=== PATIENT | male | born 1955 | race Caucasian/White ===

== ENCOUNTER → 2016-03-17 | Outpatient (CLI) | payer OTHER ==
[~2016-03-17] MED LIST: ALBUAER2 INH; CMD5 PO; DEXT30TA7 PO; DSY50 PO; ENOX80IN SQ; ESOM20CA PO; FLUT0.0529 NAE; HYDR-5688 PO; IPRASOL4 INH; LORA-741 PO; OMEP40CA41 PO; PREG100C PO; PSEU60TA80 PO; RANI150T2 PO; RANI300T2 PO; ROFL1TAB5 PO; TRAM-10 PO; UMEC1AER INH; VNTHFA/IN INH; WARF-280 PO
--- NOTE | 2016-03-17 12:26 | DIAGNOSTIC IMAGING REPORT ---
CT OF THE SINUSES WITHOUT CONTRAST FUSION PROTOCOL CLINICAL HISTORY: Chronic sinusitis. Postnasal discharge. COMPARISON STUDY: Sinus radiographs January 14, 2016. TECHNIQUE: Axial images of the sinuses were obtained without IV contrast according to the Fusion protocol. Coronal reformats were viewed. FINDINGS: Visualized portions of the intracranial contents are unremarkable on this unenhanced exam. There is no fluid within the middle ears or the mastoid air cells. Ossicles are intact. Orbits are unremarkable. No mass or bony destruction is identified within the nasal cavity or the sinuses. There is mild S-shaped deviation of the nasal septum with minimal spur formation. There is mild mucosal thickening of the frontal and ethmoid sinuses. Major drainage pathways are patent. The ostiomeatal complexes are patent. Cribriform plate is intact. IMPRESSION: 1. Mild mucosal thickening of the ethmoid and frontal sinuses. No CT evidence of acute sinusitis. 2. Patent major drainage pathways. 3. No masses or bony destruction within the nasal cavity or sinuses. Electronically signed by: Jose A Hernandez M.D. 03/17/2016 12:24 PM Dictated Date/Time: 03/17/2016 12:12 PM
--- NOTE | 2016-03-17 12:54 | DIAGNOSTIC IMAGING REPORT ---
(BARIUM SWALLOW) ESOPHAGUS CLINICAL HISTORY: Pharyngitis. Reflux. COMPARISON STUDY: Upper GI series August 07, 2007. FLUOROSCOPY TIME: 1.1 minutes. FINDINGS: 26 fluoroscopic images were obtained. There was mild esophageal dysmotility. No esophageal mass or stricture was identified. No reflux was elicited. Mucosal pattern of the esophagus was normal. No hiatal hernia was identified. IMPRESSION: Mild esophageal dysmotility. No esophageal mass or stricture. Electronically signed by: Jose A Hernandez M.D. 03/17/2016 12:52 PM Dictated Date/Time: 03/17/2016 12:50 PM
== END | disposition home or self-care (01) ==
LOC: C.CTS 11:00
PROVIDERS: ATTEND Hospitalist
DX: J34.2 Deviated nasal septum (principal); J32.9 Chronic sinusitis, unspecified; R09.82 Postnasal drip; K21.9 Gastro-esophageal reflux disease without esophagitis; R43.8 Other disturbances of smell and taste; J02.9 Acute pharyngitis, unspecified

== ENCOUNTER 2016-04-02 06:56 | Inpatient (IN) | payer OTHER ==
[2016-03-24 11:43] VITALS: BMI 32.0
--- NOTE | 2016-03-24 12:21 | PAT Medication Instructions ---
Service Date Mar 24, 2016. Current Home Medication List Albuterol (Ventolin Hfa), 2 PUFFS INH Q4H PRN for SOB/Wheezing Esomeprazole Magnesium (Nexium), 20 MG PO QAM Fluticasone Propionate (Nasal) (Flonase), 2 SPRAYS ROCÍO DAILY PRN for Allergy Symptoms Ipratropium-Albuterol (Duoneb), 1 TREATMENT INH QID PRN for SOB/Wheezing Lorazepam (Ativan), 0.5 MG PO Q8 PRN for Anxiety Pregabalin (Lyrica), 100 MG PO BID Pseudoephedrine-Guaifenesin (Mucinex D), 1 TAB PO HS Ranitidine (Zantac), 300 MG PO HS Roflumilast (Daliresp), 500 MCG PO HS Tramadol (Ultram), 50 MG PO QID Umeclidinium-Vilanterol (Anoro Ellipta 62.5-25 Mcg/INH), 1 PUFF INH QAM Warfarin Sodium (Warfarin Sodium), 5 MG PO UD Medication Instructions For Your Scheduled Surgery - Check with surgeon/coumadin clinic for instructions: Warfarin Sodium (Warfarin Sodium), 5 MG PO UD - Take the following medications the morning of surgery with a sip of water: Umeclidinium-Vilanterol (Anoro Ellipta 62.5-25 Mcg/INH), 1 PUFF INH QAM Pregabalin (Lyrica), 100 MG PO BID Lorazepam (Ativan), 0.5 MG PO Q8 PRN for Anxiety\ Ipratropium-Albuterol (Duoneb), 1 TREATMENT INH QID PRN for SOB/Wheezing Fluticasone Propionate (Nasal) (Flonase), 2 SPRAYS ROCÍO DAILY PRN for Allergy Symptoms Albuterol (Ventolin Hfa), 2 PUFFS INH Q4H PRN for SOB/Wheezing (bring with you to hospital morning of surgery) Esomeprazole Magnesium (Nexium), 20 MG PO QAM Tramadol (Ultram), 50 MG PO QID (okay to take up to 4 hours prior to surgery if needed) - Take the following medications as scheduled the night before surgery: Ranitidine (Zantac), 300 MG PO HS Pseudoephedrine-Guaifenesin (Mucinex D), 1 TAB PO HS Pregabalin (Lyrica), 100 MG PO BID Lorazepam (Ativan), 0.5 MG PO Q8 PRN for Anxiety Ipratropium-Albuterol (Duoneb), 1 TREATMENT INH QID PRN for SOB/Wheezing Fluticasone Propionate (Nasal) (Flonase), 2 SPRAYS ROCÍO DAILY PRN for Allergy Symptoms Albuterol (Ventolin Hfa), 2 PUFFS INH Q4H PRN for SOB/Wheezing Tramadol (Ultram), 50 MG PO QID Roflumilast (Daliresp), 500 MCG PO HS If you have any questions please call us at [phone] (Anel Morrison PA-C) or [phone] or [phone]
[2016-03-24 12:40] LABS: BASO % 0.4 %; BASO ABS # 0.05 K/uL (0-0.2); COMPLETE YES; EOS % 2.6 %; IG% 0.2 %; LYMPH % 19.4 %; LYMPH ABS # 2.28 K/uL (1.2-3.4); MEAN CELL VOLUME 88.1 fL (80-100); MEAN CORPUSCULAR HEMOGLOBIN 31.6 pg (25-34); MEAN CORPUSCULAR HGB CONC 35.8 g/dl (32-36); MEAN PLATELET VOLUME 10.3 fL (7.4-10.4); MONO % 8.1 %; NEUT % 69.3 %; PLATELET COUNT 266 K/uL (130-400); RED BLOOD COUNT 4.88 M/uL (4.7-6.1); WHITE BLOOD COUNT 11.75 K/uL (4.8-10.8)
[2016-03-24 12:42] LABS: URINE APPEARANCE CLEAR (CLEAR); URINE BILIRUBIN NEG (NEG); URINE COLOR YELLOW; URINE NITRITE NEG (NEG); URINE SPECIFIC GRAVITY 1.013 (1.000-1.030); UROBILINOGEN NEG (NEG)
[2016-03-24 12:47] LABS: PARTIAL THROMBOPLASTIN RATIO 1.5; PROTHROMBIN TIME (PATIENT) 22.6 SECONDS (9.0-12.0)
[2016-03-24 12:52] LABS: MANUAL MICROSCOPIC REQUIRED? NO; REVIEW REQ? NO
[2016-03-24 13:18] LABS: BUN/CREATININE RATIO 16.8 (10-20); CALCIUM 9.3 mg/dl (8.5-10.1); CREATININE 0.75 mg/dl (0.60-1.40)
--- NOTE | 2016-03-31 15:14 | HISTORY & PHYSICAL EXAMINATION ---
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 HISTORY OF PRESENT ILLNESS: The patient is a pleasant 60-year-old right hand dominant male who injured both of his shoulders on 05/26/2015 when he sustained a fall from approximately 20-30 feet when scaffolding gave away. He was treated by a lead orthopedist of his right shoulder with an ORIF of his humerus fracture. Postoperatively, he did develop some blood clots. They were unable to treat his left shoulder surgically at that time for proximal humerus fracture. It went on to heal in a malunion. Unfortunately, over the past year he has had significant pain and decreased range of motion of his shoulder. He has also noticed numbness in the ulnar nerve distribution and triggering of his left small finger. It is getting to the point where it has become bothersome on a daily basis. X-rays of the left shoulder do show malunion of the proximal humerus with some arthropathy. EMG study of the left upper extremity does show compressive neuropathy at the cubital tunnel of the left elbow and clinical examination shows triggering of the left small finger. After failing conservative treatment, he has elected to undergo a left reverse shoulder arthroplasty, left cubital tunnel release and left trigger finger release. He understands all the risks, benefits, alternatives to the procedure and has elected to proceed. PAST MEDICAL HISTORY: Denies. PAST SURGICAL HISTORY: Significant for ORIF of the right shoulder, hernia repair, surgery to his left leg and surgery to his right elbow in the past and a lung procedure. ALLERGIES: None. 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 FAMILY HISTORY: Noncontributory. SOCIAL HISTORY: He is , never drinks. He has 50-year pack a day history. He tries to remain active. REVIEW OF SYSTEMS: He complains of left shoulder pain and paresthesias in the median nerve distribution. All other pertinent review of systems are negative. PHYSICAL EXAMINATION: GENERAL: He is awake, alert and oriented x3. He is in no apparent distress. He is very pleasant. HEAD, EYES, EARS, NOSE, AND THROAT: Pupils equal, round and reactive to light. Extraocular motion intact. Oral mucosa is pink and moist. HEART: Regular rate per radial pulse. LUNGS: Tamara symmetrically bilaterally with no audible breath sounds. ABDOMEN: Soft, nontender, nondistended. MUSCULOSKELETAL: Physical examination of the left shoulder he has significant decreased active range of motion and about 110 degrees of forward flexion and 110 degrees of abduction. Passively, I can get him slightly further but he has a lot of pain and crepitus. He has 5/5 motion and full can testing and external rotation. Negative bear hug and belly press test. He has full flexion and extension of his left elbow. He has positive Tinel sign at the elbow with numbness in the ulnar nerve distribution. He also has triggering of the fifth finger at the A1 park. X-rays of the left shoulder do show malunion of the proximal humerus. EMG study of the left upper extremity is significant for entrapment neuropathy at the cubital tunnel. IMPRESSION: 1. Traumatic arthritis of the left shoulder. 2. 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 3. Triggering of the left small finger. PLAN: We will proceed with a reverse left total shoulder arthroplasty followed by a cubital tunnel release in situ and a small finger trigger finger release. Postoperatively, he will be kept overnight for postoperative medical management and likely discharged to home the following day. ASHLEY
[~2016-04-02] VITALS: Ht 167.6 cm; Wt 89.6 kg
[2016-04-02] VITALS (9 sets, daily range): BP systolic 92–129; BP diastolic 51–80; PULSE 76–90; TEMP 36.3–36.6; O2SAT 94–96; Ht 167.6 cm; Wt 89.6 kg
[~2016-04-02 06:56] MED LIST changes: +ACETAMINOPHEN 500 MG TAB PO SCH; +CEFAZOLIN 2000 MG/60 ML D5W 60 ML IV SCH; -CMD5 PO; -DEXT30TA7 PO; -DSY50 PO; -ENOX80IN SQ; +FAMOTIDINE 20 MG TAB PO SCH; +GABAPENTIN 300 MG CAP PO SCH; -HYDR-5688 PO; +LACTATED RINGER'S 1000ML 1,000 ML IV SCH; +LACTATED RINGER'S 1000ML IV SCH; -OMEP40CA41 PO; -RANI150T2 PO; +ROPIVACAINE 5MG/ML 30 ML 150 MG, BUPIVACAINE/EPINEPHR 0.5% MPF 30 ML, KETOROLAC TROMETH... INFIL SCH; -VNTHFA/IN INH
[2016-04-02] MEDS ORDERED: MIDAZOLAM HCL 1 MG/ML 2ML VIAL ONE ×2 (07:21)
[2016-04-02] MEDS ORDERED: ONDANSETRON INJ 2 MG/ML 2 ML VIAL ONE (07:21)
[2016-04-02] MEDS ORDERED: GLYCOPYRROLATE INJ 0.2 MG/ML VIAL ONE ×2 (07:21→08:32)
[2016-04-02] MEDS ORDERED: LIDOCAINE HCL 2% 2 ML VIAL (20MG/ML) ONE (07:21)
[2016-04-02] MEDS ORDERED: PROPOFOL IV EMULSION 10 MG/ML 20 ML VIAL IV ONE (07:21)
[2016-04-02] MEDS ORDERED: FENTANYL CITRATE INJ 50 MCG/1 ML 2 ML VIAL ONE ×2 (07:21→08:32)
[2016-04-02] MEDS ORDERED: ROCURONIUM BROMIDE 10 MG/ML 5 ML VIAL ONE ×2 (07:21→09:51)
[2016-04-02] MEDS ORDERED: DEXAMETHASONE SOD INJ 4 MG/ML VIAL ONE (07:21)
[2016-04-02] MEDS ORDERED: NEOSTIGMINE METHYLSULFATE 5 MG/5 ML SYR ONE (07:21)
[2016-04-02] MEDS ORDERED: ROPIVACAINE 0.5% 5 MG/ML 30 ML VIAL ONE (07:23)
[2016-04-02] MEDS ORDERED: LIDOCAINE/EPINEPHRINE 2% 1:200,000 20 ML SDV ONE (07:23)
--- NOTE | 2016-04-02 07:27 | History & Physical Bridge Note ---
H&P Re-Evaluation Bridge Note: I have examined the patient, reviewed the History & Physical and in the interval since the performance of the History & Physical I have noted the following changes of clinical significance: No changes noted
[2016-04-02 07:57] LABS: INR 0.9 (0.9-1.1); PROTHROMBIN TIME (PATIENT) 10.1 SECONDS (9.0-12.0)
[2016-04-02] MEDS ORDERED: BACITRACIN 50000 UNIT VIAL ONE (08:21)
[2016-04-02] MEDS ORDERED: BUPIVACAINE/EPINEPHRINE 0.5% MPF 1:200,000 30 ML VIAL ONE (08:21)
[2016-04-02] MEDS ORDERED: ORTHO JOINT ANESTHETIC ONE (08:22)
[2016-04-02] MEDS ORDERED: ONDANSETRON INJ 2 MG/ML 2 ML VIAL IV PRN ×2 (09:00→12:15)
[2016-04-02] MEDS ORDERED: FENTANYL CITRATE INJ 50 MCG/1 ML 2 ML VIAL IV PRN (09:00)
[2016-04-02] MEDS ORDERED: EpHEDrine SULFATE INJ 50 MG/ML AMP IV PRN (09:00)
[2016-04-02] MEDS ORDERED: LABETALOL HCL IV 5 MG/ML 20ML IV PRN (09:00)
[2016-04-02] MEDS ORDERED: ATROPINE SULFATE 0.1 MG/ML 5ML SYR IV PRN (09:00)
[2016-04-02] MEDS ORDERED: MEPERIDINE HCL 25 MG/ML CARP IV PRN (09:00)
[2016-04-02] MEDS ORDERED: HYDROmorphone INJ 1 MG/ML SYR IV PRN (09:00)
[2016-04-02] MEDS ORDERED: PHENYLEPHRINE 100MCG/ML 5ML SYR ONE (09:38)
[2016-04-02] MEDS ORDERED: EpHEDrine SULFATE 50MG/5ML SYR ONE (09:38)
--- NOTE | 2016-04-02 12:02 | [facility] Post Operative Brief Note ---
Immediate Operative Summary Operative Date Apr 02, 2016. 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 Santana Toll Bridge Operator Surgeon(s) Compa Pineda PA-C Estimated Blood Loss 250mL Findings as above Specimens A: Left Humeral Head Complication(s) None Disposition Recovery Room / PACU
[2016-04-02] MEDS ORDERED: METOCLOPRAMIDE HCL INJ 5 MG/ML 2 ML VIAL IV PRN (12:15)
[2016-04-02] MEDS ORDERED: MAGNESIUM HYDROXIDE SUSP 30 ML UDC PO PRN (12:15)
[2016-04-02] MEDS ORDERED: LORAZEPAM 0.5 MG TAB PO PRN (12:15)
[2016-04-02] MEDS ORDERED: SOD PHOSPHATE/SOD BIPHOSPHATE ENEMA 132 ML BTL PR PRN (12:15)
[2016-04-02] MEDS ORDERED: NALOXONE HCL 0.4 MG/1 ML VIAL/CARP IV PRN (12:15)
[2016-04-02] MEDS ORDERED: BISACODYL 10 MG SUPP PR PRN (12:15)
[2016-04-02] MEDS ORDERED: FLUTICASONE PROPIONATE NA SPR 16 GM BTL NAE PRN (12:15)
[2016-04-02] MEDS ORDERED: ALBUT/IPRATROP 3MG/0.5MG NEB 3 ML VIAL INH PRN (12:15)
[2016-04-02] MEDS ORDERED: ALBUTEROL HFA 8 GM INHALER INH PRN (12:15)
--- NOTE | 2016-04-02 12:33 | DIAGNOSTIC IMAGING REPORT ---
LEFT SHOULDER MIN 2 VIEWS ROUTINE CLINICAL HISTORY: Post shoulder surgery FINDINGS: There is a reverse left total shoulder arthroplasty. The hardware appears intact. No acute fracture or dislocation. A surgical drain is in place. Suture material within the left upper lobe. IMPRESSION: Reversal left total shoulder arthroplasty. No evidence for hardware complication. Electronically signed by: Asim Peck M.D. 04/02/2016 12:32 PM Dictated Date/Time: 04/02/2016 12:31 PM
--- NOTE | 2016-04-02 12:39 | Anesthesiology Progress Note ---
Anesthesia Post Op Note Date & Time Apr 02, 2016 at 12:39 Vital Signs Pain Intensity: 0 Vital Signs Past 12 Hours Date Time Temp Pulse Resp B/P Pulse Ox O2 Delivery O2 Flow Rate FiO2 04/02/16 12:29 88/50 04/02/16 12:26 82 21 04/02/16 12:26 82 21 94 04/02/16 12:25 118/67 04/02/16 12:21 90 24 04/02/16 12:21 89 24 94 04/02/16 12:19 108/59 04/02/16 12:18 36.3 90 17 108/59 94 Nasal Cannula 2 04/02/16 12:16 82 18 04/02/16 12:16 82 18 94 04/02/16 12:15 83 21 04/02/16 12:15 85 21 94 04/02/16 12:14 109/69 04/02/16 12:10 90 23 04/02/16 12:10 90 23 94 04/02/16 12:09 100/61 04/02/16 12:05 81 18 93 04/02/16 12:05 81 18 04/02/16 12:04 106/66 04/02/16 12:00 86 21 04/02/16 12:00 86 21 94 04/02/16 11:59 110/69 04/02/16 11:55 87 26 96 04/02/16 11:55 88 26 04/02/16 11:54 117/63 04/02/16 11:52 90 24 100 04/02/16 11:52 90 24 04/02/16 11:49 108/76 04/02/16 11:47 85 20 04/02/16 11:47 85 20 100 04/02/16 11:44 137/73 04/02/16 11:42 89 19 99 04/02/16 11:42 89 19 04/02/16 11:39 121/68 04/02/16 11:37 36.3 84 16 119/66 99 Mask 10 04/02/16 11:37 82 16 04/02/16 11:37 82 16 100 04/02/16 07:25 36.6 76 20 129/80 95 Room Air Notes Mental Status: alert / awake / arousable, participated in evaluation Pt Amnestic to Procedure: Yes Nausea / Vomiting: adequately controlled Pain: adequately controlled Airway Patency, RR, SpO2: stable & adequate BP & HR: stable & adequate Hydration State: stable & adequate Anesthetic Complications: no major complications apparent
[2016-04-02] MEDS: D5W AND 1/2NSS + 20MEQ KCL 1,000 ML IV SCH (14:37)
[2016-04-02] MEDS: ACETAMINOPHEN IV 1,000 MG in EMPTY BAG 0 ML IV SCH ×2 (14:37→21:46)
--- NOTE | 2016-04-02 14:39 | OPERATIVE REPORT ---
DATE OF OPERATION: 04/02/2016 PREOPERATIVE DIAGNOSES: Traumatic arthritis of the left shoulder with entrapment neuropathy of the left elbow and trigger finger of the left small finger. POSTOPERATIVE DIAGNOSES: Same. PROCEDURE: Left reverse total shoulder arthroplasty with open cubital tunnel release in situ and a left small finger trigger finger release. SURGEON: Dr. Curt Santana. CONCRETE FORM SETTER: Anjel Pineda PA-C, whose assistance was necessary for retraction and helping positioning the arm. ANESTHESIA: General with left interscalene nerve block. COMPLICATIONS: None. CONDITION: Stable to PACU. NOTE: The case was increased difficulty with the shoulder because it was a previous fracture with nonunion. There was significant scarring in the area and deformation of the humeral head. The shoulder replacement took me about twice as long as it normally does given the increased difficulty and complexity of the procedure. INDICATIONS FOR PROCEDURE: Florentin is a pleasant 60-year-old male who fell about a year ago sustaining fractures of both his humerus. The right humerus was fixed with the plate and screw fixation, but the left humerus went on to heal in a malunion. He has been dealing with significant left shoulder pain since. He has also had neuropathy in the ulnar nerve distribution of his left arm and triggering of his left small finger. After failing conservative treatment, he elected to undergo the above procedures. DESCRIPTION OF PROCEDURE: On 04/02/2016, he arrived at [facility] for the above procedure. He was seen in the preoperative holding area and the operative extremity was identified and signed. He was then given preoperative antibiotic and a left interscalene nerve block. He was taken back to the operating room, laid on the table in supine position and put under general anesthesia. He was then put into the beach chair position. The left elbow and hand was prepped and draped in sterile fashion. Time-out was done and the patient and operative extremity was properly identified. The elbow and hand was done first. A curvilinear incision was made directly over the cubital tunnel. Dissection was taken down through the fascia and the cubital tunnel was released. Complete release was checked both proximally and distally and care was taken to ensure the nerve was not entrapped in the flexor pronator fascia. Once the nerve was adequately freed up, the elbow was flexed and the nerve did not subluxate. The wound was then irrigated and closed with 4-0 nylon sutures in a mattress fashion. A small soft dressing was placed. Attention was then turned to the left trigger finger. A longitudinal incision was made directly over the A1 park. Dissection was taken down through the fascia with care not to disrupt the digital nerves. The A1 park was identified and released. Complete release was checked both proximally and distally. The wound was then irrigated and closed with 4-0 nylon sutures. He was placed in a soft dressing. The left shoulder was then prepped and draped in sterile fashion in preparation for the reverse shoulder replacement. A time-out was once again done and the patient and operative extremity was properly identified. A deltopectoral approach was used. Dissection was taken down through the fascia and the anterior shoulder was exposed. There was a lot of deformity in this area and a lot of scar tissue. I took significant time to develop my soft tissue intervals. Once the anterior shoulder was exposed, the long head of biceps tendon was tenodesed to the upper border of the pec major and the remainder of the rotator interval was released. The subscapularis was tenotomized off the lesser tuberosity and the proximal humerus was exposed. The supraspinatus and upper border of the infraspinatus was released. The humerus was exposed, a canal finding reamer was sent down the center of the humeral canal. Sequential reaming up to a size 13 reamer was done. Off that reamer, a proximal humeral resection guide was placed and the proximal humerus was resected at 135 degrees of inclination and 20 degrees of retroversion. The glenoid was then exposed. Time was spent doing a complete circumferential capsular and labral release. Once I was happy with the exposure, a guide pin was sent down the center of the glenoid at 10 degrees of inclination. The mini baseplate was then reamed and impacted into place. A single central screw was placed followed by a superior and inferior locking screw. A 36 mm eccentric glenosphere was then impacted into place. The proximal humerus was once again exposed. Sequential broaching up to a size 13 broach was done. Off that broach, a standard humeral tray was used. The shoulder was reduced and it felt tight. Releases were then done. Unfortunately, the infraspinatus was very tight because of the fracture malunion. Some the infraspinatus was released carefully. I was able to get improved alignment of the shoulder. Finally, a +3 liner seemed to be the best fit. The humerus was then dislocated. The final size 13 humeral stem was impacted into place. The +3 humeral bearing was snapped onto the humeral tray and the ring lock mechanism was engaged. The humeral tray was then impacted onto the humeral stem. The shoulder was then reduced, brought through a full range of motion and felt to be stable. All surrounding soft tissues were injected with 3 liters of normal saline solution with bacitracin. All surrounding soft tissues were injected with 100 mL of an orthopedic pain control cocktail. The wound was then irrigated with 3 liters of normal saline solution with bacitracin. The subscapularis was tenodesed back to the lesser tuberosity with transosseous FiberWire sutures and [id number] sutures. A drain was placed. Skin was closed with 2-0 Vicryl and 3-0 V-Loc suture. Prineo dressing was placed. He was then placed in a soft dressing and a regular arm sling. He was then extubated, transferred to a litter and taken to the postanesthesia care unit in stable condition. He tolerated the procedure well. IMPLANTS USED: I used a [employer]omet comprehensive reverse shoulder arthroplasty system with a 25 mm mini baseplate, a 35 mm central locking screw, 2 peripheral locking screws, a 36 mm standard eccentric glenosphere, a 13 mm mini stem, and a standard humeral tray and a +3 humeral bearing. No cement was used during the case. I attest to the content of the Intraoperative Record and any orders documented therein. Any exceptio ns are noted below.
[2016-04-02] MEDS: CEFAZOLIN IV 2,000 MG in DEXTROSE 5% 50ML 50 ML IV SCH ×2 (15:58→23:52)
[2016-04-02] MEDS ORDERED: WARFARIN SOD 7.5 MG TAB PO SCH (16:00)
[2016-04-02] MEDS: KETOROLAC TROMETHAMINE 30 MG/ML VIAL IV. SCH ×2 (18:21→23:52)
[2016-04-02] MEDS: OXYCODONE HCL IR 5 MG TAB (IMMEDIATE RELEASE) PO PRN ×2 (18:28→21:51)
[2016-04-02] MEDS ORDERED: RANITIDINE HCL 150 MG TAB PO SCH (21:00)
[2016-04-02] MEDS ORDERED: SENNA 8.6 MG TAB PO SCH (21:00)
[2016-04-02] MEDS ORDERED: ROFLUMILAST 500 MCG TAB PO SCH (21:00)
[2016-04-02] MEDS: DOCUSATE SODIUM 100 MG CAP PO SCH (21:45)
[2016-04-02] MEDS: PREGABALIN 100 MG CAP PO SCH (21:45)
[2016-04-02] MEDS: MoRPHine SULFATE 2 MG/ML CARP IV PRN (23:49)
[2016-04-03 00:05] VITALS: BP 104/63; PULSE 79; TEMP 36.6; O2SAT 93
[2016-04-03] MEDS: D5W AND 1/2NSS + 20MEQ KCL 1,000 ML IV SCH ×2 (00:35→09:52)
[2016-04-03 03:20] VITALS: BP 101/61; PULSE 72; TEMP 36.5; O2SAT 92
[2016-04-03] MEDS: OXYCODONE HCL IR 5 MG TAB (IMMEDIATE RELEASE) PO PRN (05:33)
[2016-04-03] MEDS: ACETAMINOPHEN IV 1,000 MG in EMPTY BAG 0 ML IV SCH (05:35)
[2016-04-03] MEDS: KETOROLAC TROMETHAMINE 30 MG/ML VIAL IV. SCH (05:36)
[2016-04-03 06:53] LABS: HEMATOCRIT 35.5 % (42-52); MEAN CORPUSCULAR HEMOGLOBIN 31.6 pg (25-34); MEAN CORPUSCULAR HGB CONC 35.5 g/dl (32-36); MEAN PLATELET VOLUME 10.3 fL (7.4-10.4); PLATELET COUNT 266 K/uL (130-400); RED BLOOD COUNT 3.99 M/uL (4.7-6.1); WHITE BLOOD COUNT 17.01 K/uL (4.8-10.8)
[2016-04-03] MEDS: MoRPHine SULFATE 2 MG/ML CARP IV PRN (07:11)
[2016-04-03 07:20] LABS: BUN/CREATININE RATIO 14.8 (10-20); CALCIUM 8.5 mg/dl (8.5-10.1); CREATININE 0.85 mg/dl (0.60-1.40); POTASSIUM 4.3 mmol/L (3.5-5.1)
[2016-04-03 08:08] VITALS: BP 99/68; PULSE 67; TEMP 36.4; O2SAT 94
[2016-04-03] MEDS ORDERED: MULTIVITAMIN TAB PO SCH (09:00)
[2016-04-03] MEDS ORDERED: PANTOprazole SOD 40 MG TAB PO SCH (09:00)
[2016-04-03] MEDS ORDERED: NON-FORMULARY MEDICATION (Esomeprazole Magnesium (Nexium) 20 MG) PO SCH (09:00)
[2016-04-03] MEDS ORDERED: HYDR-5688 PO (09:12)
--- NOTE | 2016-04-03 09:16 | Discharge Instructions ---
Discharge Instructions Admission Reason for Admission: Traumatic Arthroplasty of Shoulder, Shoulder Pain Discharge Discharge Diagnosis / Problem: s/p reverse left total shoulder, ulnar nerve release, and trigger finger Discharge Goals Goal(s): Decrease discomfort, Improve function Activity Recommendations Activity Limitations: as noted below left arm sling for 3 weeks . Instructions / Follow-Up Instructions / Follow-Up may remove dressings and shower in 5 days. Leave glue dressing on shoulder in place and place bandaids over hand and elbow stitches in 5 days Current Hospital Diet Patient's current hospital diet: Regular Diet Discharge Diet Recommended Diet: Regular Diet Procedures Procedures Performed: Left Reverse Total Shoulder Arthroplasty; Left Cubital Tunnel Release; Left 5th Finger Trigger Release Pending Studies Studies pending at discharge: no Medical Emergencies . Who to Call and When: Medical Emergencies: If at any time you feel your situation is an emergency, please call 911 immediately. . Non-Emergent Contact Non-Emergency issues call your: Surgeon Call Non-Emergent contact if: wound has increased drainage, wound has increased redness . "Provider Documentation" section prepared by Curt Santana. VTE Core Measure Inpt VTE Proph given/why not?: Warfarin (Coumadin)
[2016-04-03] MEDS ORDERED: HYDROCODONE/ACETAMOPHEN 5/325MG TAB PO PRN (09:30)
--- NOTE | 2016-04-03 09:32 | PROGRESS NOTE ---
DATE: 04/03/2016 DATE: 04/03/2016. CHIEF COMPLAINT: Status post left reverse total shoulder arthroplasty postop day #1 and status post left ulnar nerve release at the elbow and left small trigger finger release. HISTORY OF PRESENT ILLNESS: Florentin is a 60-year-old male status post above procedures. Overall, he is doing fairly well. He has some soreness in his shoulder. He states the oxycodone is not helping much. The paresthesias in his hands are similar to where they were preoperatively, but they are not any worse. Otherwise, he is neurovascularly intact. He had no acute events overnight. PHYSICAL EXAMINATION: LEFT LOWER EXTREMITY: The shoulder dressing is clean and dry and the drain is to suction. His other dressings are clean and dry and intact. His radial, median and ulnar nerves were checked and intact at his wrist. His axillary nerve was not checked yet. He still has some paresthesias along the ulnar nerve distribution. LABORATORY DATA: He has an H\T\H today of 12.6 and 35.5. His glucose is 114. His vital signs are all stable on room air. He is voiding on his own. X-rays postoperatively of the left shoulder show the prosthesis to be in anatomic alignment without any evidence of fracture, dislocation or loosening. IMPRESSION: Status post left shoulder, left elbow and left hand procedures. PLAN: At this point, he is doing fairly well. I am going to switch him to [place] 5/325 1-2 as needed for pain. The nursing staff can change the dressing and pull the drain. He will be seen by physical therapy today for hand, wrist, elbow and pendulum exercises. He can be discharged to home later today.
[2016-04-03] MEDS: DOCUSATE SODIUM 100 MG CAP PO SCH (09:52)
[2016-04-03] MEDS: PREGABALIN 100 MG CAP PO SCH (09:59)
--- NOTE | 2016-04-03 10:23 | DISCHARGE SUMMARY ---
DATE OF DISCHARGE: 04/03/2016. DISCHARGE DIAGNOSIS: Traumatic arthritis of the left shoulder with cubital tunnel syndrome of the left elbow and triggering of the left small finger. PROCEDURE: Reverse left total shoulder arthroplasty with open cubital tunnel release in situ and small finger trigger finger release on 04/02/[address] Curt Santana. DISCHARGE INSTRUCTIONS: 1. [place] 5/325 two tabs every 6 hours as needed for pain. 2. Albuterol 2 puffs every 4 hours as needed. 3. Nexium 20 mg daily. 4. Flonase 2 sprays daily as needed. 5. DuoNeb treatments 4 times a day as needed. 6. Ativan 0.5 mg every 8 hours as needed. 7. Lyrica 100 mg twice a day. 8. Mucinex 1 tablet at night. 9. Zantac 300 mg at night. 10. Daliresp 500 mcg at night. 11. Ultram 50 mg 4 times a day. 12. Avapro 1 puff daily. 13. Coumadin 5 mg every other day. 14. May shower 5 days from the day of surgery. 15. Start physical therapy this week. 16. Left arm sling for 3 weeks. 17. Follow up with Dr. Santana with any questions or concerns. 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 He was also having paresthesias in his left upper extremity and triggering of his small finger. After appropriate diagnostic studies, he elected to undergo surgical procedures. On 04/02/2016 he arrived at [facility] and underwent the above procedure without complications. He had a left interscalene nerve block and a general anesthetic. Postoperatively, he was discharged to general orthopedic floor. His hospital course was basically uneventful. He was having some soreness in his shoulder, but it was controlled on the oral pain medications. His H\T\H was stable at 12.6 and 35.5. The dressing was changed, the drain was pulled and he was seen by physical therapy to do hand, wrist, elbow and pendulum exercises. He worked well and was subsequently discharged to home with the above instructions.
[2016-04-03] MEDS ORDERED: OXYCODONE HCL IR 5 MG TAB (IMMEDIATE RELEASE) PO PRN (10:30)
[2016-04-03] MEDS ORDERED: NURSING VERBAL MED ORDER ONE (10:30)
[2016-04-03 11:00] VITALS: O2SAT 97
[2016-04-03 11:06] VITALS: TEMP 36.4; O2SAT 97
[2016-04-03 11:36] VITALS: BP 116/62; PULSE 76; O2SAT 96
[2016-04-05] MEDS ORDERED: WARFARIN SOD 5 MG TAB PO SCH (16:00)
[2016-05-14] MEDS ORDERED: HYDR-5688 PO (10:10)
[2016-11-06] MEDS ORDERED: CMD5 PO (16:43)
[2016-11-09] MEDS ORDERED: DSY50 PO (09:25)
== END 2016-04-03 11:54 | disposition home or self-care (01) | DRG 483 ==
LOC: ENRESERVDT → ENRESERVTM → C.ACU 06:56 → C.3E 12:07
PROVIDERS: ADMIT Orthopaedic Surgery; ATTEND Orthopaedic Surgery
PROC: 0LN80ZZ Release Left Hand Tendon, Open Approach (ICD-10-PCS; principal; 2016-04-02 08:55)
PROC: 01N40ZZ Release Ulnar Nerve, Open Approach (ICD-10-PCS; principal; 2016-04-02 08:55)
PROC: 0RRK00Z Replacement of Left Shoulder Joint with Reverse Ball and Socket Synthetic Substitute, Open Approach (ICD-10-PCS; principal; 2016-04-02 08:55)
DX: M12.512 Traumatic arthropathy, left shoulder (principal); G56.22 Lesion of ulnar nerve, left upper limb; M65.352 Trigger finger, left little finger; Z98.890 Other specified postprocedural states; Z79.01 Long term (current) use of anticoagulants; Z86.718 Personal history of other venous thrombosis and embolism

== ENCOUNTER → 2016-05-14 | Outpatient (CLI) | payer OTHER ==
[~2016-05-14] MED LIST changes: -ACETAMINOPHEN 500 MG TAB PO SCH; -CEFAZOLIN 2000 MG/60 ML D5W 60 ML IV SCH; +CMD5 PO; +DEXT30TA7 PO; +DSY50 PO; -FAMOTIDINE 20 MG TAB PO SCH; -GABAPENTIN 300 MG CAP PO SCH; +HYDR-5688 PO; -LACTATED RINGER'S 1000ML 1,000 ML IV SCH; -LACTATED RINGER'S 1000ML IV SCH; +NXM/40 PO; +OMEP40CA41 PO; +RANI150T2 PO; -ROPIVACAINE 5MG/ML 30 ML 150 MG, BUPIVACAINE/EPINEPHR 0.5% MPF 30 ML, KETOROLAC TROMETH... INFIL SCH; +VNTHFA/IN INH; +ZNTT/150 PO
--- NOTE | 2016-05-14 14:58 | DIAGNOSTIC IMAGING REPORT ---
CHEST 2 VIEWS ROUTINE CLINICAL HISTORY: Preoperative chest COMPARISON STUDY: 07/07/2015 FINDINGS: There is stable blunting left lateral costophrenic angle. There is a linear left upper lung zone scarring. The cardiac and mediastinal contours remain stable. There is no failure. There is no lobar consolidation.[ IMPRESSION: No active disease in the chest. Electronically signed by: Jamarcus Farfan M.D. 05/14/2016 2:56 PM Dictated Date/Time: 05/14/2016 2:55 PM
[2016-05-14 15:40] LABS: BASO % 0.4 %; BASO ABS # 0.04 K/uL (0-0.2); COMPLETE YES; EOS % 2.9 %; HEMATOCRIT 42.4 % (42-52); IG% 0.2 %; LYMPH % 27.8 %; MEAN CELL VOLUME 90.8 fL (80-100); MEAN CORPUSCULAR HEMOGLOBIN 32.1 pg (25-34); MEAN CORPUSCULAR HGB CONC 35.4 g/dl (32-36); MEAN PLATELET VOLUME 11.1 fL (7.4-10.4); MONO % 8.5 %; NEUT % 60.2 %; PLATELET COUNT 284 K/uL (130-400); RED BLOOD COUNT 4.67 M/uL (4.7-6.1); WHITE BLOOD COUNT 11.17 K/uL (4.8-10.8)
[2016-05-14 15:50] LABS: INR 1.9 (0.9-1.1); PARTIAL THROMBOPLASTIN RATIO 1.4
[2016-05-14 16:10] LABS: POTASSIUM 3.8 mmol/L (3.5-5.1)
== END | disposition home or self-care (01) ==
LOC: C.CTS 14:07 → C.RAD 14:10
DX: Z01.818 Encounter for other preprocedural examination (principal)

== ENCOUNTER → 2016-05-21 | Day surgery (SDC) | payer OTHER ==
[2016-05-14 10:10] VITALS: Ht 167.6 cm; Wt 89.5 kg
[~2016-05-21] VITALS: Ht 167.6 cm; Wt 89.5 kg
[~2016-05-21] MED LIST changes: +ATROPINE SULFATE 0.1 MG/ML 5ML SYR IV PRN; +CEFAZOLIN 2000 MG/60 ML D5W IV SCH; +DEXAMETHASONE SOD INJ 4 MG/ML VIAL ONE; +EpHEDrine SULFATE INJ 50 MG/ML AMP IV PRN; +EpINEphrine INJ 1MG/ML AMP 1 MG/ML AMP ONE; +FENTANYL CITRATE INJ 50 MCG/1 ML 2 ML VIAL IV PRN; +FENTANYL CITRATE INJ 50 MCG/1 ML 2 ML VIAL ONE; +GLYCOPYRROLATE INJ 0.2 MG/ML VIAL ONE; +HYDROCODONE/ACETAMOPHEN 5/325MG TAB PO PRN; +LACTATED RINGER'S 1000ML 1,000 ML IV SCH; +LIDOCAINE 4% MPF SOAK 5 ML = 1 DOSE TOP ONE; +LIDOCAINE HCL 2% 2 ML VIAL (20MG/ML) ONE; +LIDOCAINE/EPINEPHRINE 1% INJ 50 ML VIAL ONE; +MIDAZOLAM HCL 1 MG/ML 2ML VIAL ONE; +NEOSTIGMINE METHYLSULFATE 5 MG/5 ML SYR ONE; +ONDANSETRON INJ 2 MG/ML 2 ML VIAL IV PRN; +ONDANSETRON INJ 2 MG/ML 2 ML VIAL ONE; +OXYMETAZOLINE HCL 0.05% NA SPR 15 ML BTL PRN; +OXYMETAZOLINE HCL 0.05% NA SPR 15 ML BTL SCH; +PROPOFOL IV EMULSION 10 MG/ML 20 ML VIAL IV ONE; -PSEU60TA80 PO; +SUCCINYLCHOLINE 100MG/5ML SYR IV ONE
--- NOTE | 2016-05-21 09:39 | History and Physical: Surg Cnt ---
History & Physical Date May 21, 2016. Chief Complaint RIGHT-SIDED CHRONIC SINUSITIS History of Present Illness The patient is a 60 year old male with complaints of RIGHT-SIDED CHRONIC SINUSITIS DESPITE MAXIMAL MEDICAL THERAPY. Past Medical/Surgical History Medical Problems: (1) COPD, moderate (2) Diaphragmatic hernia (3) GERD (gastroesophageal reflux disease) (4) Histoplasmosis (5) Hypertension (6) Neuropathy (7) TAYLOR (obstructive sleep apnea) (8) Thoracic spinal stenosis (9) Traumatic arthritis of shoulder region Surgical Problems: (1) H/O elbow surgery (2) H/O exploratory thoracotomy (3) H/O hernia repair Social History Problems: (1) Tobacco use Additional History Hepatic Disease: No Endocrine Disorder: No Kidney Disease: No Hypertension: No Heart Disease: No Bleeding Tendencies: No Infectious Diseases: No Allergies Coded Allergies: No Known Allergies (Verified , 05/14/16) Home Medications Scheduled Esomeprazole Magnesium (Nexium), 20 MG PO QAM Pregabalin (Lyrica), 100 MG PO BID Ranitidine (Zantac), 300 MG PO HS Roflumilast (Daliresp), 500 MCG PO HS Tramadol (Ultram), 50 MG PO QID Umeclidinium-Vilanterol (Anoro Ellipta 62.5-25 Mcg/INH), 1 PUFF INH QAM Warfarin Sodium (Warfarin Sodium), 5 MG PO QPM Scheduled PRN Albuterol (Ventolin Hfa), 2 PUFFS INH Q4H PRN for SOB/Wheezing Fluticasone Propionate (Nasal) (Flonase), 2 SPRAYS ROCÍO DAILY PRN for Allergy Symptoms Hydrocodone/Acetaminophen 5MG/325MG ([place] 5MG/325MG), 2 TABLETS PO HS PRN for Pain Ipratropium-Albuterol (Duoneb), 1 TREATMENT INH QID PRN for SOB/Wheezing Lorazepam (Ativan), 0.5 MG PO Q8 PRN for Anxiety Physical Examination Skin: warm/dry, no rash Eyes: normal inspection, EOMI, sclerae normal ENT: + pertinent finding (MILD R>L DNS AND B ITH) Head: normocephalic, atraumatic Neck: supple, no adenopathy, trachea midline Respiratory/Chest: lungs clear, normal breath sounds, no respiratory distress Cardiovascular: regular rate, rhythm, no edema, no murmur Neurologic/Psych: no motor/sensory deficits, alert, normal reflexes, oriented x 3 Diagnosis RIGHT-SIDED CHRONIC SINUSITIS Plan of Treatment IMAGE-GUIDED R FESS, POSSIBLE (UNLIKELY) SEPTOPLASTY
--- NOTE | 2016-05-21 10:20 | [facility] Operative Report ---
Operative Report Operative Date May 21, 2016. Pre-Operative Diagnosis Right-sided Chronic Sinusitis Post-Operative Diagnosis Same Procedure(s) Performed Limited Image Guided Right Sided Endoscopic Sinus Surgery Surgeon Dr Rodriguez [employer] Commander Surgeon(s) None Estimated Blood Loss 5ml Findings 1. MUCOSAL THICKENING OF THE RIGHT FRONTAL AND ANTERIOR ETHMOID SINUSES WITH RIGHT FRONTOETHMOIDAL RECESS OBSTRUCTION Specimens NONE I attest to the content of the Intraoperative Record and any orders documented therein. Any exceptions are noted below.
--- NOTE | 2016-05-21 10:22 | Discharge Instructions ---
Discharge Instructions Date of Service May 21, 2016. Admission Reason for Admission: Acquired Deviated Septum, Chronic Sinusitis, Cough Discharge Discharge Diagnosis / Problem: SAME Discharge Goals Goal(s): Therapeutic intervention Activity Recommendations Activity Limitations: as noted below NO NOSE BLOWING FOR 2WEEKS; NO DRIVING WHILE ON NARCOTICS . Current Hospital Diet Patient's current hospital diet: Discharge Diet Recommended Diet: Regular Diet Procedures Procedures Performed: Limited Image Guided Right Sided Endoscopic Sinus Surgery Pending Studies Studies pending at discharge: no Medical Emergencies . Who to Call and When: Medical Emergencies: If at any time you feel your situation is an emergency, please call 911 immediately. . Non-Emergent Contact Non-Emergency issues call your: Surgeon . . "Provider Documentation" section prepared by Michael Rodriguez. VTE Core Measure Inpt VTE Proph given/why not?: SCD's
--- NOTE | 2016-05-21 11:00 | Anesthesiology Progress Note ---
Anesthesia Post Op Note Date & Time May 21, 2016 at 10:59 Vital Signs Pain Intensity: 3 Vital Signs Past 12 Hours Date Time Temp Pulse Resp B/P Pulse Ox O2 Delivery O2 Flow Rate FiO2 05/21/16 10:55 64 16 121/72 95 05/21/16 10:52 66 24 94 05/21/16 10:52 36.6 05/21/16 10:52 67 24 05/21/16 10:51 126/78 05/21/16 10:47 63 20 05/21/16 10:47 63 20 95 05/21/16 10:45 128/74 05/21/16 10:42 67 19 99 05/21/16 10:42 67 19 05/21/16 10:40 134/75 05/21/16 10:37 60 17 05/21/16 10:37 61 17 100 05/21/16 10:35 125/76 05/21/16 10:32 63 17 99 05/21/16 10:32 64 17 05/21/16 10:30 143/70 05/21/16 10:27 70 16 05/21/16 10:27 71 16 132/74 99 05/21/16 10:25 36.2 72 16 141/81 99 Humidified Oxygen 6 Diffusion Mask 05/21/16 10:22 71 141/81 98 05/21/16 10:22 71 05/21/16 08:41 36.6 72 20 115/73 95 Room Air Notes Mental Status: alert / awake / arousable, participated in evaluation Pt Amnestic to Procedure: Yes Nausea / Vomiting: adequately controlled Pain: adequately controlled Airway Patency, RR, SpO2: stable & adequate BP & HR: stable & adequate Hydration State: stable & adequate Anesthetic Complications: no major complications apparent
[2016-05-21 11:04] VITALS: TEMP 36.5
[2016-05-21 11:46] VITALS: BP 112/61; PULSE 72; O2SAT 95
--- NOTE | 2016-05-21 12:46 | OPERATIVE REPORT ---
DATE OF OPERATION: 05/21/2016 PREOPERATIVE DIAGNOSIS: Right chronic rhinosinusitis. POSTOPERATIVE DIAGNOSIS: Right chronic rhinosinusitis. PROCEDURES: Vquence fusion image guided right-sided endoscopic sinus surgery consisting of: 1. Balloon sinuplasty assisted right frontal sinusotomy. 2. Right anterior ethmoidectomy. SURGEON: Dr. Rodriguez. COLLISION ESTIMATOR: None. SPECIMENS: None. COMPLICATIONS: None. INDICATIONS FOR THE PROCEDURE: The patient is a 60-year-old male with a history of right chronic rhinosinusitis which has been unresponsive to maximum medical therapy. The patient was found to have right frontal ethmoid recess blockage with mild mucosal thickening involving the right frontal and ethmoid sinuses. He presents for the above-mentioned procedure on an outpatient elective basis. OPERATION AND FINDINGS: DETAILS OF PROCEDURE: After informed consent had been obtained from the patient, the patient was wheeled to the operating room and placed on the operating table in supine position. Monitors were placed. After induction of general endotracheal anesthesia, the patient's abdomen was prepped in the usual fashion for image guided sinus surgery. The Orthocon headset was placed over the forehead and was registered, verified, and calibrated for the frontal sinus portion of the case. The right middle turbinate was medialized using a Urich elevator. The right middle turbinate and lateral nasal wall were then injected with 1% lidocaine with 1:100,000 epinephrine. Using a curved frontal sinus suction the right frontal sinus was cannulated and entered. Using image guidance, a #7 frontal sinus balloon was placed into the right frontal sinus and frontal ethmoid recess and dilated to 12 atmospheres of pressure in 3 different locations. After this had been performed polypoid tissue was removed using powered instrumentation. An anterior ethmoidectomy was then performed using powered instrumentation. Of note, there was polypoid mucosal thickening involving the right frontal ethmoid recess which was completely removed. The right frontal ethmoid recess was widely patent after the procedure. The right nasal cavity and sinuses were suctioned. Merogel was then placed into the right frontal ethmoid recess and ethmoid cavity. Next, the nasal cavity and nasopharynx were then suctioned. An orogastric tube was placed and stomach suctioned free of air and stomach contents. This marked the end of the case. The patient tolerated the procedure well. There were no apparent complications. The patient was extubated and transferred to the recovery room in stable condition. I attest to the content of the Intraoperative Record and any orders documented therein. Any exceptio ns are noted below.
== END | disposition home or self-care (01) ==
LOC: X.SURG 08:26
DX: J32.9 Chronic sinusitis, unspecified (principal); G47.33 Obstructive sleep apnea (adult) (pediatric); J44.9 Chronic obstructive pulmonary disease, unspecified; K21.9 Gastro-esophageal reflux disease without esophagitis; K44.9 Diaphragmatic hernia without obstruction or gangrene; I10 Essential (primary) hypertension; Z98.890 Other specified postprocedural states; F17.210 Nicotine dependence, cigarettes, uncomplicated

== ENCOUNTER → 2016-06-14 | Outpatient (CLI) | payer OTHER ==
[~2016-06-14] MED LIST changes: -ATROPINE SULFATE 0.1 MG/ML 5ML SYR IV PRN; -CEFAZOLIN 2000 MG/60 ML D5W IV SCH; -DEXAMETHASONE SOD INJ 4 MG/ML VIAL ONE; -EpHEDrine SULFATE INJ 50 MG/ML AMP IV PRN; -EpINEphrine INJ 1MG/ML AMP 1 MG/ML AMP ONE; -FENTANYL CITRATE INJ 50 MCG/1 ML 2 ML VIAL IV PRN; -FENTANYL CITRATE INJ 50 MCG/1 ML 2 ML VIAL ONE; -FLUT0.0529 NAE; -GLYCOPYRROLATE INJ 0.2 MG/ML VIAL ONE; -HYDROCODONE/ACETAMOPHEN 5/325MG TAB PO PRN; -LACTATED RINGER'S 1000ML 1,000 ML IV SCH; -LIDOCAINE 4% MPF SOAK 5 ML = 1 DOSE TOP ONE; -LIDOCAINE HCL 2% 2 ML VIAL (20MG/ML) ONE; -LIDOCAINE/EPINEPHRINE 1% INJ 50 ML VIAL ONE; -MIDAZOLAM HCL 1 MG/ML 2ML VIAL ONE; -NEOSTIGMINE METHYLSULFATE 5 MG/5 ML SYR ONE; -ONDANSETRON INJ 2 MG/ML 2 ML VIAL IV PRN; -ONDANSETRON INJ 2 MG/ML 2 ML VIAL ONE; -OXYMETAZOLINE HCL 0.05% NA SPR 15 ML BTL PRN; -OXYMETAZOLINE HCL 0.05% NA SPR 15 ML BTL SCH; -PROPOFOL IV EMULSION 10 MG/ML 20 ML VIAL IV ONE; -SUCCINYLCHOLINE 100MG/5ML SYR IV ONE; -TRAM-10 PO; -WARF-280 PO
--- NOTE | 2016-06-14 14:17 | DIAGNOSTIC IMAGING REPORT ---
CHEST 2 VIEWS ROUTINE CLINICAL HISTORY: Exacerbation of COPD. COMPARISON STUDY: 05/14/2016 FINDINGS: Postsurgical changes involve the proximal right humerus. There are postsurgical changes of a reverse total left shoulder arthroplasty. The cardiac and mediastinal contours remain stable. There is interstitial thickening, similar to the prior study. There is no lobar consolidation. There are no pleural effusions.[ There is stable left pleurodiaphragmatic scarring. IMPRESSION: Persistent interstitial thickening. No evidence of lobar consolidation. No acute findings. Electronically signed by: Jamarcus Farfan M.D. 06/14/2016 2:16 PM Dictated Date/Time: 06/14/2016 2:15 PM
== END | disposition home or self-care (01) ==
LOC: C.RAD 13:33
PROVIDERS: ATTEND Physician Assistant
DX: R05 Cough (principal); J44.1 Chronic obstructive pulmonary disease with (acute) exacerbation

== ENCOUNTER → 2016-06-17 | Outpatient (CLI) | payer OTHER | END | disposition home or self-care (01) | LOC: C.LAB 14:11 | PROVIDERS: ATTEND Physician Assistant | DX: J44.9 Chronic obstructive pulmonary disease, unspecified (principal) ==

== ENCOUNTER 2016-11-03 12:56 | Inpatient (IN) | payer OTHER ==
[~2016-11-03] VITALS: Ht 167.6 cm; Wt 120.0 kg
[~2016-11-03 12:56] MED LIST changes: -CMD5 PO; -DEXT30TA7 PO; -DSY50 PO; -NXM/40 PO; -OMEP40CA41 PO; -RANI150T2 PO; -VNTHFA/IN INH; -ZNTT/150 PO
[2016-11-03] MEDS ORDERED: ALBUT/IPRATROP 3MG/0.5MG NEB 3 ML VIAL INH STA ×3 (13:58→16:44)
[2016-11-03] MEDS ORDERED: METHYLPREDNISOLONE 125 MG VIAL IV STA (13:58)
[2016-11-03] MEDS ORDERED: RANI150T2 PO (14:02)
[2016-11-03] MEDS ORDERED: DEXT30TA7 PO (14:03)
[2016-11-03 14:32] LABS: BASO % 0.3 %; BASO ABS # 0.04 K/uL (0-0.2); COMPLETE YES; EOS % 1.9 %; IG% 0.3 %; LYMPH % 18.1 %; LYMPH ABS # 2.28 K/uL (1.2-3.4); MEAN CORPUSCULAR HGB CONC 33.3 g/dl (32-36); MEAN PLATELET VOLUME 10.5 fL (7.4-10.4); MONO % 9.2 %; NEUT % 70.2 %; PLATELET COUNT 285 K/uL (130-400); RED BLOOD COUNT 5.16 M/uL (4.7-6.1); WHITE BLOOD COUNT 12.62 K/uL (4.8-10.8)
[2016-11-03 14:45] LABS: INR 0.9 (0.9-1.1); PROTHROMBIN TIME (PATIENT) 9.8 SECONDS (9.0-12.0)
[2016-11-03 14:48] LABS: ALT/SGPT 64 U/L (12-78); AST/SGOT 39 U/L (15-37); BLOOD UREA NITROGEN 17 mg/dl (7-18); BUN/CREATININE RATIO 18.4 (10-20); CALCIUM 9.6 mg/dl (8.5-10.1); CARBON DIOXIDE 24 mmol/L (21-32); CHLORIDE 107 mmol/L (98-107); GLUCOSE 85 mg/dl (70-99); POTASSIUM 4.3 mmol/L (3.5-5.1); SODIUM 139 mmol/L (136-145)
[2016-11-03 14:53] LABS: ALKALINE PHOSPHATASE 97 U/L (45-117); CKMB/CK RATIO 2.3 (0-3.0)
--- NOTE | 2016-11-03 14:57 | DIAGNOSTIC IMAGING REPORT ---
CHEST 2 VIEWS ROUTINE HISTORY: 60 years-old Male COPD EXACERBATION acute shortness of breath. COMPARISON: Chest radiograph 06/14/2016 TECHNIQUE: Frontal and lateral views of the chest FINDINGS: Cardiomediastinal and hilar silhouettes are within normal limits. Postsurgical changes of the left upper lobe are again seen. No pneumothorax, pleural effusion, focal airspace consolidation or overt pulmonary edema. Mild background interstitial coarsening is unchanged. Reverse left shoulder arthroplasty noted. ORIF hardware of the right humerus is partially imaged. Multilevel endplate degenerative changes are seen throughout the spine. IMPRESSION: 1. No acute cardiopulmonary process. 2. Unchanged interstitial coarsening of the bilateral lungs with postoperative changes of the left upper lobe. The above report was generated using voice recognition software. It may contain grammatical, syntax or spelling errors. Electronically signed by: Gualberto Mata M.D. 11/03/2016 2:56 PM Dictated Date/Time: 11/03/2016 2:54 PM
[2016-11-03] MEDS ORDERED: LEVOFLOXACIN 250 MG TAB PO STA (15:36)
[2016-11-03] MEDS ORDERED: MoRPHine SULFATE 4 MG/ML 1 ML CARP\\VIAL IV STA (16:44)
[2016-11-03] MEDS ORDERED: ONDANSETRON INJ 2 MG/ML 2 ML VIAL IV STA (16:44)
[2016-11-03] MEDS ORDERED: SODIUM CHLORIDE 0.9% 1000ML 1,000 ML IV STA (16:44)
[2016-11-03] MEDS ORDERED: OPTIRAY 320 IV PRN (17:15)
--- NOTE | 2016-11-03 17:25 | DIAGNOSTIC IMAGING REPORT ---
(CHEST FOR PE) ANGIO WITH CT DOSE: 620.24 mGycm HISTORY: Chest pain dyspnea TECHNIQUE: Multiaxial CT images of the chest were performed following the intravenous administration of contrast to evaluate the pulmonary arteries. Maximal intensity projection images were also obtained. A dose lowering technique was utilized adhering to the principles of ALARA. COMPARISON STUDY: 12/22/2015 FINDINGS: Postoperative changes to the right humerus. Status post total left shoulder arthroplasty. There are several small filling defects of the right and to a lesser extent left midlung pulmonary arterial vasculature. No evidence for major central pulmonary embolus. Chronic pleural and parenchymal changes described previously considered stable. Scarring left upper lobe unchanged. Mild emphysematous change is stable. IMPRESSION: Study is positive for several small midlung emboli bilaterally. No evidence for major central pulmonary embolus. Chronic emphysematous change. The above report was generated using voice recognition software. It may contain grammatical, syntax or spelling errors. Electronically signed by: Regis Menchaca M.D. 11/03/2016 5:24 PM Dictated Date/Time: 11/03/2016 5:15 PM
[2016-11-03] MEDS ORDERED: HEPARIN 25000 UNIT/500 ML D5W ONE (17:55)
[2016-11-03] MEDS ORDERED: HEPARIN SOD (PORCINE) 1000 UNIT/ML 10 ML VIAL ONE (17:55)
[2016-11-03] MEDS ORDERED: NITROGLYCERIN 0.4 MG SL PER TAB CHARGE SL PRN (19:30)
[2016-11-03] MEDS ORDERED: ALBUT/IPRATROP 3MG/0.5MG NEB 3 ML VIAL INH PRN (19:30)
[2016-11-03] MEDS ORDERED: LORAZEPAM 0.5 MG TAB PO PRN (19:30)
[2016-11-03] MEDS ORDERED: MAGNESIUM HYDROXIDE SUSP 30 ML UDC PO PRN (19:30)
[2016-11-03] MEDS ORDERED: ALUMINUM/MAGNESIUM/SIMETH (MAALOX MAX) 30 ML UDC PO PRN (19:30)
[2016-11-03] MEDS ORDERED: POLYETHYLENE (MIRALAX) 17 GM PACK PO PRN (19:30)
[2016-11-03] MEDS ORDERED: ONDANSETRON INJ 2 MG/ML 2 ML VIAL IV PRN (19:30)
[2016-11-03] MEDS ORDERED: OMEP40CA41 PO (19:41)
[2016-11-03] MEDS ORDERED: HYDR-5688 PO (19:41)
[2016-11-03] MEDS ORDERED: VNTHFA/IN INH (19:41)
[2016-11-03] MEDS ORDERED: ALBUTEROL HFA 8 GM INHALER INH PRN (19:45)
[2016-11-03] MEDS ORDERED: WARFARIN SOD 5 MG TAB PO ONE (19:45)
[2016-11-03] MEDS: ALBUT/IPRATROP 3MG/0.5MG NEB 3 ML VIAL INH SCH (20:00)
[2016-11-03] MEDS: ACETAMINOPHEN 325 MG TAB PO PRN (20:16)
[2016-11-03 20:51] VITALS: BP 104/68; PULSE 101; TEMP 37; O2SAT 95; Ht 167.6 cm; Wt 120.0 kg
[2016-11-03] MEDS ORDERED: HEPARIN 25,000 UNIT/500ML D5W 500 ML IV PRN (21:15)
[2016-11-03] MEDS ORDERED: PNEUMOCOCCAL ADMINISTRATION CHARGE ONE (21:30)
[2016-11-03] MEDS ORDERED: PNEUMOCOCCAL POLYSACCHARIDES 25 MCG/0.5 ML VIAL/SYR IM. ONE (21:30)
[2016-11-03] MEDS: METHYLPREDNISOLONE IV 40 MG in SYRINGE 0 ML IV SCH (21:50)
[2016-11-03] MEDS: RANITIDINE HCL 150 MG TAB PO SCH (21:50)
[2016-11-03] MEDS: ROFLUMILAST 500 MCG TAB PO SCH (21:50)
[2016-11-03] MEDS: SODIUM CHLORIDE 0.9% 1000ML 1,000 ML IV SCH (21:51)
--- NOTE | 2016-11-03 22:08 | EMERGENCY ROOM VISIT NOTE ---
History First contact with patient: 13:40 Chief Complaint: SHORTNESS OF BREATH Stated Complaint: DIZZY, HARD TIME BREATHING Nursing Triage Summary: Pt reports hx of COPD. Increased SOB, dizziness and cough that started this morning. CP "from coughin so much". History of Present Illness Patient is a 60-year-old white male with past medical history significant for COPD with ongoing smoking who presents to the emergency department today by his for evaluation of shortness of breath. His symptoms started yesterday with a runny nose, and a dry cough, he felt like he was getting a cold. His daughter has also been ill with similar symptoms. He difficulty sleeping last night due to coughing, slept on a couch propped up on a pillow. This morning he states that the difficulty breathing started. He reports a frequent cough productive of clear sputum. He notes chest tightness, and soreness in the anterior chest from coughing. He feels a little bit dizzy and lightheaded. He took his scheduled Anoro inhaler this morning, did not use his Ventolin inhaler or perform a DuoNeb. He finished a course of prednisone yesterday, this was for an exacerbation of his chronic pain syndrome from trauma from a fall several years ago. He had been on Lyrica, but had to stop this due to insurance issues. He has not had any fevers. He denies any palpitations. He has chronic pain secondary to his trauma, and notes some soreness across his back, but states that this is normal for him. He denies any history of heart disease, no hypertension or dyslipidemia. Last stress test was within the last few years, and was normal per the patient. He has history of PE last year secondary to his trauma. He was treated with warfarin, but he is not presently on any anticoagulation. Review of Systems Review of systems as per HPI. All other systems reviewed were negative. 10 systems reviewed. 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 See Problem List. Family History Blood clots FATHER Heart disease FATHER Hypertension FATHER Social History Smoking Status: Current Every Day Smoker Alcohol Use: none Drug Use: none Marital Status: Housing Status: lives with family Occupation Status: employed Current/Historical Medications Scheduled Omeprazole (Prilosec), 40 MG PO DAILY Ranitidine HCl (Ranitidine HCl), 150 MG PO BID Roflumilast (Daliresp), 500 MCG PO HS Umeclidinium-Vilanterol (Anoro Ellipta 62.5-25 Mcg/INH), 1 PUFF INH QAM Scheduled PRN Albuterol Hfa (Ventolin Hfa), 2 PUFFS INH Q4 PRN for SOB/Wheezing Hydrocodone/Acetaminophen 5MG/325MG (Gibbs 5MG/325MG), 1 TABLET PO Q6 PRN for Pain Ipratropium-Albuterol (Duoneb), 1 TREATMENT INH QID PRN for SOB/Wheezing Lorazepam (Ativan), 0.5 MG PO Q8 PRN for Anxiety Physical Exam Vital Signs Date Time Temp Pulse Resp B/P (MAP) Pulse Ox O2 Delivery O2 Flow Rate FiO2 11/03/16 19:17 99/56 11/03/16 19:00 96 24 92 Nasal Cannula 2.0 11/03/16 18:30 97 28 94 Nasal Cannula 2.0 11/03/16 18:00 97 22 11/03/16 17:34 91 11/03/16 17:32 92 21 98/64 91 Room Air 11/03/16 16:52 97 25 112/69 91 Room Air 11/03/16 15:23 81 22 121/65 93 Room Air 11/03/16 13:16 37.0 83 20 131/71 96 Room Air 11/03/16 13:15 97 Room Air Physical Exam CONSTITUTIONAL: Patient is an uncomfortable although nontoxic-appearing 60-year- old white male who is awake and alert and sitting upright on the gurney in no acute distress. Vital signs are stable. EYES: Pupils equal, round, reactive to light and accommodation. EOMs intact without nystagmus. Sclera are anicteric. ENT: Tympanic membranes intact, with normal landmarks. External canals are clear. Oral and nasopharynx are clear. Mucous membranes are moist, no lesions , tongue and gums appear normal. NECK: No bruits auscultated. Supple without lymphadenopathy. No thyromegaly. No meningeal signs. Full active range of motion without discomfort. CARDIOVASCULAR: Regular rate and rhythm, with normal S1 and S2, no murmur or gallop or rub is heard. No carotid bruits auscultated. No JVD. Peripheral pulses easily palpable. RESPIRATORY: He is slightly tachypneic. Breath sounds are diminished throughout , primarily at the bases posteriorly. He does have a few wheezes noted in the upper lung fuller. Full and equal chest expansion without accessory muscle use or retractions. INTEGUMENTARY: No lesions or rash, normal skin turgor. LYMPH: No lymphadenopathy. Medical Decision & Procedures ER Provider Diagnostic Interpretation: CHEST 2 VIEWS ROUTINE HISTORY: 60 years-old Male COPD EXACERBATION acute shortness of breath. COMPARISON: Chest radiograph 06/14/2016 TECHNIQUE: Frontal and lateral views of the chest FINDINGS: Cardiomediastinal and hilar silhouettes are within normal limits. Postsurgical changes of the left upper lobe are again seen. No pneumothorax, pleural effusion, focal airspace consolidation or overt pulmonary edema. Mild background interstitial coarsening is unchanged. Reverse left shoulder arthroplasty noted. ORIF hardware of the right humerus is partially imaged. Multilevel endplate degenerative changes are seen throughout the spine. IMPRESSION: 1. No acute cardiopulmonary process. 2. Unchanged interstitial coarsening of the bilateral lungs with postoperative changes of the left upper lobe. (CHEST FOR PE) ANGIO WITH CT DOSE: 620.24 mGycm HISTORY: Chest pain dyspnea TECHNIQUE: Multiaxial CT images of the chest were performed following the intravenous administration of contrast to evaluate the pulmonary arteries. Maximal intensity projection images were also obtained. A dose lowering technique was utilized adhering to the principles of ALARA. COMPARISON STUDY: 12/22/2015 FINDINGS: Postoperative changes to the right humerus. Status post total left shoulder arthroplasty. There are several small filling defects of the right and to a lesser extent left midlung pulmonary arterial vasculature. No evidence for major central pulmonary embolus. Chronic pleural and parenchymal changes described previously considered stable. Scarring left upper lobe unchanged. Mild emphysematous change is stable. IMPRESSION: Study is positive for several small midlung emboli bilaterally. No evidence for major central pulmonary embolus. Chronic emphysematous change. Laboratory Results 11/03/16 14:15 Red Blood Count 5.16, Mean Corpuscular Volume 93.0, Mean Corpuscular Hemoglobin 31.0, Mean Corpuscular Hemoglobin Concent 33.3, Mean Platelet Volume 10.5, Neutrophils (%) (Auto) 70.2, Lymphocytes (%) (Auto) 18.1, Monocytes (%) (Auto) 9.2, Eosinophils (%) (Auto) 1.9, Basophils (%) (Auto) 0.3, Neutrophils # (Auto) 8.86, Lymphocytes # (Auto) 2.28, Monocytes # (Auto) 1.16, Eosinophils # (Auto) 0.24, Basophils # (Auto) 0.04 11/03/16 14:15 Test 11/03/16 14:15 White Blood Count 12.62 K/uL (4.8-10.8) Red Blood Count 5.16 M/uL (4.7-6.1) Hemoglobin 16.0 g/dL (14.0-18.0) Hematocrit 48.0 % (42-52) Mean Corpuscular Volume 93.0 fL (80-100) Mean Corpuscular Hemoglobin 31.0 pg (25-34) Mean Corpuscular Hemoglobin Concent 33.3 g/dl (32-36) Platelet Count 285 K/uL (130-400) Mean Platelet Volume 10.5 fL (7.4-10.4) Neutrophils (%) (Auto) 70.2 % Lymphocytes (%) (Auto) 18.1 % Monocytes (%) (Auto) 9.2 % Eosinophils (%) (Auto) 1.9 % Basophils (%) (Auto) 0.3 % Neutrophils # (Auto) 8.86 K/uL (1.4-6.5) Lymphocytes # (Auto) 2.28 K/uL (1.2-3.4) Monocytes # (Auto) 1.16 K/uL (0.11-0.59) Eosinophils # (Auto) 0.24 K/uL (0-0.5) Basophils # (Auto) 0.04 K/uL (0-0.2) RDW Standard Deviation 52.4 fL (36.4-46.3) RDW Coefficient of Variation 15.4 % (11.5-14.5) Immature Granulocyte % (Auto) 0.3 % Immature Granulocyte # (Auto) 0.04 K/uL (0.00-0.02) Prothrombin Time 9.8 SECONDS (9.0-12.0) Prothromb Time International Ratio 0.9 (0.9-1.1) Activated Partial Thromboplast Time 24.9 SECONDS (21.0-31.0) Partial Thromboplastin Ratio 1.0 Anion Gap 8.0 mmol/L (3-11) Est Creatinine Clear Calc Drug Dose 87.5 ml/min Estimated GFR () 105.7 Estimated GFR (Non- 91.2 BUN/Creatinine Ratio 18.4 (10-20) Calcium Level 9.6 mg/dl (8.5-10.1) Total Bilirubin 0.4 mg/dl (0.2-1) Aspartate Amino Transf (AST/SGOT) 39 U/L (15-37) Alanine Aminotransferase (ALT/SGPT) 64 U/L (12-78) Alkaline Phosphatase 97 U/L (45-117) Total Creatine Kinase 60 U/L (39-308) Creatine Kinase MB 1.4 ng/ml (0.5-3.6) Creatine Kinase MB Ratio 2.3 (0-3.0) Troponin I < 0.015 ng/ml (0-0.045) Total Protein 7.5 gm/dl (6.4-8.2) Albumin 3.8 gm/dl (3.4-5.0) Globulin 3.7 gm/dl (2.5-4.0) Albumin/Globulin Ratio 1.0 (0.9-2) Medications Administered Medications (Trade) Dose Ordered Sig/Alex Route Start Time Stop Time Status Last Admin Dose Admin Methylprednisolone Sodium Succinate (Solu-Medrol IV) 125 mg NOW STAT IV 11/03/16 13:58 11/03/16 14:02 DC 11/03/16 14:20 125 MG Albuterol/ Ipratropium (Duoneb) 3 ml NOW STAT INH 11/03/16 13:58 11/03/16 14:02 DC 11/03/16 14:20 3 ML Albuterol/ Ipratropium (Duoneb) 3 ml NOW STAT INH 11/03/16 14:38 11/03/16 14:39 DC 11/03/16 15:23 3 ML Levofloxacin (Levaquin Tab) 500 mg NOW STAT PO 11/03/16 15:36 11/03/16 15:39 DC 11/03/16 15:57 500 MG Albuterol/ Ipratropium (Duoneb) 3 ml NOW STAT INH 11/03/16 16:44 11/03/16 16:46 DC 11/03/16 17:43 3 ML Morphine Sulfate (MoRPHine SULFATE INJ) 4 mg NOW STAT IV 11/03/16 16:44 11/03/16 16:47 DC 11/03/16 16:54 4 MG Ondansetron HCl (Zofran Inj) 4 mg NOW STAT IV 11/03/16 16:44 11/03/16 16:47 DC 11/03/16 16:53 4 MG Sodium Chloride 1,000 ml @ 999 mls/hr Q1H1M STAT IV 11/03/16 16:44 11/03/16 17:44 DC 11/03/16 16:54 999 MLS/HR Heparin Sodium/ Dextrose 1 ea NOW STAT N/A 11/03/16 17:44 11/03/16 17:45 DC 11/03/16 18:00 1 EA Heparin Sodium (Porcine) (Heparin Iv Bolus) 10,000 unit STK-MED ONCE .ROUTE 11/03/16 17:55 11/03/16 17:56 DC 11/03/16 18:00 6,000 UNIT Heparin Sodium/ Dextrose (Heparin 25,000 Unit/500ml D5W) 25,000 unit STK-MED ONCE .ROUTE 11/03/16 17:55 11/03/16 17:56 DC 11/03/16 18:00 25,000 UNIT Acetaminophen (Tylenol Tab) 650 mg Q4H PRN PO 11/03/16 19:30 12/03/16 19:29 11/03/16 20:16 650 MG ECG Indication: chest pain, SOB/dyspnea Rate (beats per minute): 76 Rhythm: normal sinus Findings: no acute ischemic change, no ectopy Change: no significant change ED Course The patient was seen and evaluated as above. His old records are reviewed. He has a history of COPD, also history of PE provoked from trauma. He presents to the emergency Department with a 24-hour history of a URI prodrome with associated productive cough and worsening shortness of breath. IV lock was initiated. Patient was placed on a security monitor and EKG was performed. Laboratory studies were collected including CBC with differential, coags, CMP and cardiac enzymes. He was given Solu-Medrol 125 mg IV. He was given a DuoNeb treatment. Chest x-ray was obtained, and noted chronic interstitial changes, post surgical changes are also noted. No evidence for acute consolidation or failure. Laboratory studies noted a white count of 12,600, likely related to his recent 10 day course of steroids. H&H is normal. Platelets and coags are within normal limits. Electrolytes, renal function, liver functions are all unremarkable. Cardiac enzymes are negative 1. Patient was reassessed after his first DuoNeb, had some increased air movement, and increased wheezing throughout. He was given a second DuoNeb treatment. Patient history and presentation were reviewed with Dr. Park. He recommended antibiotics and patient was given Levaquin 500 mg by mouth. Patient was reassessed after his second DuoNeb, really had no significant improvement. He requested something for his head pain. He was given morphine 4 mg and Zofran 4 mg IV. He was given a IV fluid bolus, and sent for CT angiogram of the chest to evaluate for PE. He was then received a third DuoNeb. Chest CT noted several small midlung emboli bilaterally. No evidence for major central embolus. Chronic emphysematous changes were noted. CT scan was reviewed with attending physician. Laboratory and diagnostic imaging studies were reviewed with the patient and his . Patient was placed on a heparin drip. Patient was reviewed with the avionics manager, [facility] Differential diagnoses entertained included URI, COPD exacerbation, acute bronchitis, pneumonia, pulmonary embolus, CHF, ACS, acute FL, among others. Medical Decision See Emergency Department course. Medication Reconcilliation Current Medication List: was personally reviewed by hi Blood Pressure Screening Patient's blood pressure: Normal blood pressure Blood pressure disposition: Did not require urgent referral Impression Primary Impression: Bilateral pulmonary embolism Additional Impression: COPD exacerbation Departure Information Prescriptions Hydrocodone/Acetaminophen 5MG/325MG (Gibbs 5MG/325MG) Tab 1 TABLET PO Q6 Y for Pain, #20 TAB Prov: Mannie Calderon MD 11/03/16 Albuterol Hfa (VENTOLIN HFA) 200 Puffs/[id number] Mcg Aers 2 PUFFS INH Q4 Y for SOB/Wheezing, #1 INHALER Prov: Mannie Calderon MD 11/03/16 Omeprazole (PRILOSEC) 40 Mg Cap 40 MG PO DAILY, #30 CAP Prov: Mannie Calderon MD 11/03/16 Referrals Marie Weaver D.O. (PCP) Patient Instructions My [facility] Problem Qualifiers
--- NOTE | 2016-11-03 22:21 | HISTORY & PHYSICAL EXAMINATION ---
DATE OF ADMISSION: 11/03/2016 CHIEF COMPLAINT: Shortness of breath. HISTORY OF PRESENT ILLNESS: This is a 60-year-old male with past medical history significant for COPD, tobacco abuse, obstructive sleep apnea, history of PE in the last year, but stopped Coumadin in June of this year, history of constipation, who presents with shortness of breath. The patient says since last 3 or 4 days, he was getting short of breath and cough with whitish phlegm and this got progressively worsened, so came to the ER and he was treated for COPD exacerbation, but a CT angiogram of his chest showed bilateral PE and we were called for admission. Currently, the patient is hemodynamically stable and feels comfortable, complaints of some mild headaches and was dizzy for the last couple of days. No blurred visions. No sore throat. No difficulty swallowing. He has complains of some left lower chest pain at one point 3/10 in severity. No radiation. Some shortness of breath on exertion. No nausea, no vomiting, no abdominal pain. Normal bowel and bladder movements. No blood in the stools, no black stools. No blood in the urine. No rash, no swelling of the legs. ALLERGIES: No known drug allergies. PAST MEDICAL HISTORY: As mentioned above. PAST SURGICAL HISTORY: Reconstruction of the left shoulder joint, thoracotomy with exploration, umbilical hernia repair, right elbow surgery. MEDICATIONS AT HOME: The patient is on Ativan 0.5 mg p.o. t.i.d. p.r.n., Daliresp 500 mcg p.o. daily, Zantac 150 mg p.o. b.i.d., hydrocodone/acetaminophen 1 tablet p.o. q. 6 hours p.r.n., Ellipta 1 puff daily, omeprazole 40 mg p.o. daily, DuoNebs q.i.d., Ventolin 2 puffs every 6 hours p.r.n. FAMILY HISTORY: Significant for brother has leukemia. Mother has non Hodgkin lymphoma. Father has jaundice, alcohol abuse. Father has history of heart disorder. Brother has stroke. SOCIAL HISTORY: Smokes half pack a day for the last 45 years. No alcohol use. No drug use. . REVIEW OF SYSTEMS: As per HPI. PHYSICAL EXAMINATION: GENERAL: The patient is of moderate build, not in distress. VITAL SIGNS: Temperature 37, pulse 98, respiratory rate 16, blood pressure 111/56, oxygen 96% on 2 liters. HEENT: No pallor, no icterus. Pupils equal, round, and reactive to light. NECK: No JVD, no neck masses, no carotid bruits. CARDIOVASCULAR: S1, S2 heard. Regular rate and rhythm, no murmur, no gallop. RESPIRATORY SYSTEM: Normal AP diameter. No accessory muscle use, bilateral rhonchi heard. ABDOMEN: Soft, bowel sounds present. Nontender. No distention. CENTRAL NERVOUS SYSTEM: Cranial nerves II through XII are grossly intact. Nonfocal. EXTREMITIES: No edema. No erythema. LABORATORY DATA: WBC 12.6, hemoglobin 16, hematocrit 48, platelets 285. Sodium 139, potassium 4.3, chloride 107, CO2 24, BUN 17, creatinine 0.9, serum glucose 85, calcium 9.6, total bilirubin 0.4, AST 39, ALT 64, alkaline phosphatase 97. Troponin I less than 0.015. PT 9.8, INR 0.9, PTT 24.9. IMAGING DATA: CT of the chest, positive for several small mid lung emboli bilaterally. No evidence for a major central pulmonary embolus, chronic emphysematous change. EKG shows normal sinus rhythm with rate of 76, no significant change was found. ASSESSMENT AND PLAN: This is a 60-year-old male who presents with shortness of breath and chronic obstructive pulmonary disease exacerbation and also bilateral pulmonary embolism. 1. Chronic obstructive pulmonary disease exacerbation. We will treat with IV steroids, p.o. Levaquin, nebulization around the clock and p.r.n. and oxygen and monitor on tele floor. 2. Bilateral pulmonary embolism. The patient has history of pulmonary embolism last year and he was placed on Coumadin and he stopped it about after 1 year in June of 2016. This is second episode, starting on IV heparin and Coumadin. Most likely needs oysterman Coumadin and may need to follow up with diabetes nurse as outpatient. 3. Gastroesophageal reflux disease. Continue Zantac and Prilosec. 4. Anxiety. Ativan p.r.n. 5. Deep venous thrombosis prophylaxis, on IV heparin. DISPOSITION: Admit to tele floor. Expect to discharge home and follow with family doctor. Level 1 full code. MTDD
[2016-11-03 23:26] VITALS: BP 112/65; PULSE 86; TEMP 36.8; O2SAT 94
[2016-11-04] VITALS (11 sets, daily range): BP systolic 105–127; BP diastolic 57–66; PULSE 80–89; TEMP 36.7–36.9; O2SAT 91–97
[2016-11-04 00:56] LABS: PARTIAL THROMBOPLASTIN RATIO 1.7
[2016-11-04] MEDS ORDERED: HEPARIN IV BOLUS 3,000 UNIT in SYRINGE 0 ML IV ONE (01:30)
[2016-11-04 04:23] LABS: COMPLETE YES; HEMATOCRIT 40.3 % (42-52); IG% 0.4 %; LYMPH ABS # 0.59 K/uL (1.2-3.4); MEAN CORPUSCULAR HEMOGLOBIN 32.4 pg (25-34); MEAN CORPUSCULAR HGB CONC 35.2 g/dl (32-36); MONO % 4.8 %; NEUT % 86.8 %; PLATELET COUNT 241 K/uL (130-400); RED BLOOD COUNT 4.38 M/uL (4.7-6.1); WHITE BLOOD COUNT 7.34 K/uL (4.8-10.8)
[2016-11-04 04:31] LABS: PROTHROMBIN TIME (PATIENT) 10.8 SECONDS (9.0-12.0)
[2016-11-04 04:47] LABS: BLOOD UREA NITROGEN 21 mg/dl (7-18); BUN/CREATININE RATIO 24.3 (10-20); CALCIUM 8.7 mg/dl (8.5-10.1); CARBON DIOXIDE 24 mmol/L (21-32); CHLORIDE 108 mmol/L (98-107); CREATININE 0.88 mg/dl (0.60-1.40); GLUCOSE 132 mg/dl (70-99); MAGNESIUM 2.4 mg/dl (1.8-2.4); POTASSIUM 4.2 mmol/L (3.5-5.1); SODIUM 141 mmol/L (136-145)
[2016-11-04 04:52] LABS: CKMB/CK RATIO 2.4 (0-3.0)
[2016-11-04] MEDS: METHYLPREDNISOLONE IV 40 MG in SYRINGE 0 ML IV SCH ×3 (06:14→21:36)
[2016-11-04] MEDS ORDERED: MoRPHine SULFATE 4 MG/ML 1 ML CARP\\VIAL IV PRN (06:30)
[2016-11-04] MEDS ORDERED: TRAMADOL HCL 50 MG TAB PO PRN (06:30)
[2016-11-04] MEDS: ALBUT/IPRATROP 3MG/0.5MG NEB 3 ML VIAL INH SCH ×4 (07:37→19:37)
[2016-11-04 07:45] LABS: PARTIAL THROMBOPLASTIN RATIO 2.8
[2016-11-04] MEDS: RANITIDINE HCL 150 MG TAB PO SCH ×2 (08:01→20:39)
[2016-11-04] MEDS: SODIUM CHLORIDE 0.9% 1000ML 1,000 ML IV SCH (09:40)
--- NOTE | 2016-11-04 09:44 | Progress Note ---
Medicine Progress Note Date & Time of Visit: Nov 04, 2016 at 09:26. Subjective Pt was seen and examined Lying in bed with no distress Pt said that his breathing is slightly improved He continues to cough and having a hard time to cough the phlegm out denies any chest pain, palpitation and dizziness Objective Last 8 Hrs Date Time Temp Pulse Resp B/P (MAP) Pulse Ox O2 Delivery O2 Flow Rate FiO2 11/04/16 04:00 Nasal Cannula 2.0 11/04/16 03:22 36.8 82 18 117/63 (81) 97 Nasal Cannula 2.0 Physical Exam: General- No acute distress Head- atraumatic Eyes- PERRL, EOMI ENT- oropharynx clear Neck- supple, no JVD Lungs- + wheezing Heart- regular rhythm Abdomen- normal bowel sounds, soft Extremities-no calf tenderness Neuro- alert, oriented x 3; PERRL, EOMI Skin- warm & dry Laboratory Results: Last 24 Hours Test 11/03/16 14:15 11/04/16 00:21 11/04/16 03:57 11/04/16 07:11 White Blood Count 12.62 K/uL 7.34 K/uL Red Blood Count 5.16 M/uL 4.38 M/uL Hemoglobin 16.0 g/dL 14.2 g/dL Hematocrit 48.0 % 40.3 % Mean Corpuscular Volume 93.0 fL 92.0 fL Mean Corpuscular Hemoglobin 31.0 pg 32.4 pg Mean Corpuscular Hemoglobin Concent 33.3 g/dl 35.2 g/dl Platelet Count 285 K/uL 241 K/uL Mean Platelet Volume 10.5 fL 11.0 fL Neutrophils (%) (Auto) 70.2 % 86.8 % Lymphocytes (%) (Auto) 18.1 % 8.0 % Monocytes (%) (Auto) 9.2 % 4.8 % Eosinophils (%) (Auto) 1.9 % 0.0 % Basophils (%) (Auto) 0.3 % 0.0 % Neutrophils # (Auto) 8.86 K/uL 6.37 K/uL Lymphocytes # (Auto) 2.28 K/uL 0.59 K/uL Monocytes # (Auto) 1.16 K/uL 0.35 K/uL Eosinophils # (Auto) 0.24 K/uL 0.00 K/uL Basophils # (Auto) 0.04 K/uL 0.00 K/uL RDW Standard Deviation 52.4 fL 51.7 fL RDW Coefficient of Variation 15.4 % 15.4 % Immature Granulocyte % (Auto) 0.3 % 0.4 % Immature Granulocyte # (Auto) 0.04 K/uL 0.03 K/uL Prothrombin Time 9.8 SECONDS 10.8 SECONDS Prothromb Time International Ratio 0.9 1.0 Activated Partial Thromboplast Time 24.9 SECONDS 43.5 SECONDS 71.6 SECONDS Partial Thromboplastin Ratio 1.0 1.7 2.8 Sodium Level 139 mmol/L 141 mmol/L Potassium Level 4.3 mmol/L 4.2 mmol/L Chloride Level 107 mmol/L 108 mmol/L Carbon Dioxide Level 24 mmol/L 24 mmol/L Anion Gap 8.0 mmol/L 9.0 mmol/L Blood Urea Nitrogen 17 mg/dl 21 mg/dl Creatinine 0.90 mg/dl 0.88 mg/dl Est Creatinine Clear Calc Drug Dose 87.5 ml/min 89.3 ml/min Estimated GFR () 105.7 106.7 Estimated GFR (Non- 91.2 92.1 BUN/Creatinine Ratio 18.4 24.3 Random Glucose 85 mg/dl 132 mg/dl Calcium Level 9.6 mg/dl 8.7 mg/dl Total Bilirubin 0.4 mg/dl Aspartate Amino Transf (AST/SGOT) 39 U/L Alanine Aminotransferase (ALT/SGPT) 64 U/L Alkaline Phosphatase 97 U/L Total Creatine Kinase 60 U/L 42 U/L Creatine Kinase MB 1.4 ng/ml 1.0 ng/ml Creatine Kinase MB Ratio 2.3 2.4 Troponin I < 0.015 ng/ml < 0.015 ng/ml Total Protein 7.5 gm/dl Albumin 3.8 gm/dl Globulin 3.7 gm/dl Albumin/Globulin Ratio 1.0 Magnesium Level 2.4 mg/dl Assessment & Plan COPD Continue Levaquin PO On solumedrol 40 mg IV q8Hr Continue Duoneb nebulizer treatment Continue oxygen supplement Will add guaifenesin Continue Daliresp and Anoro Bilateral pulmonary embolism. Second episode of PE that seems unprovoked 1st PE was on June 2015 after he was admitted for back injury and was not move around Treated with Coumadin for 1 yr ( Coumadin stopped in June 2016) On IV insulin and Coumadin will need shelter anticoagulant therapy Need hypercoagulable work up, if he never had it done Will need hematology follow up as an outpatient Echo pending Gastroesophageal reflux disease. Continue Zantac and Prilosec. Anxiety. continue Ativan p.r.n. Deep venous thrombosis prophylaxis on IV heparin drip/ coumadin Monitor INR CODE STATUS Full code Current Inpatient Medications: Current Inpatient Medications Medications (Trade) Dose Ordered Sig/Alex Route Start Time Stop Time Status Last Admin Dose Admin Ioversol (Optiray 320) 102 ml UD PRN IV 11/03/16 17:15 11/07/16 17:14 Sodium Chloride 1,000 ml @ 80 mls/hr [id number] IV 11/03/16 21:00 11/04/16 20:59 11/03/16 21:51 80 MLS/HR Acetaminophen (Tylenol Tab) 650 mg Q4H PRN PO 11/03/16 19:30 12/03/16 19:29 11/03/16 20:16 650 MG Al Hydrox/Mg Hydrox/Simethicone (Maalox Max Susp) 15 ml Q4H PRN PO 11/03/16 19:30 12/03/16 19:29 Magnesium Hydroxide (Milk Of Magnesia Susp) 30 ml Q12H PRN PO 11/03/16 19:30 12/03/16 19:29 Ondansetron HCl (Zofran Inj) 4 mg Q6H PRN IV 11/03/16 19:30 12/03/16 19:29 Nitroglycerin (Nitrostat Tab) 0.4 mg UD PRN SL 11/03/16 19:30 12/03/16 19:29 Polyethylene (Miralax Powder Packet) 17 gm DAILY PRN PO 11/03/16 19:30 12/03/16 19:29 Lorazepam (Ativan Tab) 0.5 mg Q8 PRN PO 11/03/16 19:30 12/03/16 19:29 Ranitidine HCl (zANTac TAB) 150 mg BID PO 11/03/16 21:00 12/03/16 20:59 11/04/16 08:01 150 MG Roflumilast (Daliresp Tab) 500 mcg HS PO 11/03/16 21:00 12/03/16 20:59 11/03/16 21:50 500 MCG Miscellaneous Information (Order Awaiting Action) 1 ea QS N/A 11/04/16 00:00 12/04/16 00:00 Albuterol/ Ipratropium (Duoneb) 3 ml QIDR INH 11/03/16 20:00 12/03/16 19:59 Albuterol/ Ipratropium (Duoneb) 3 ml Q4R PRN INH 11/03/16 19:30 12/03/16 19:29 Methylprednisolone Sodium Succinate 40 mg/Syringe 0.64 ml @ 1.5 mls/min Q8H IV 11/03/16 22:00 12/03/16 21:59 11/04/16 06:14 1.5 MLS/MIN Levofloxacin (Levaquin Tab) 500 mg DAILY@11 PO 11/04/16 11:00 11/10/16 10:59 Warfarin Sodium (Coumadin Tab) 5 mg DAILY@16 PO 11/04/16 16:00 12/04/16 15:59 Albuterol (Ventolin Hfa Inhaler) 2 puffs Q4H PRN INH 11/03/16 19:45 12/03/16 19:44 Heparin Sodium/ Dextrose 500 ml @ 28 mls/hr [id number] PRN IV 11/03/16 21:15 12/03/16 21:14 Tramadol HCl (Ultram Tab) not relieved by tylenol @ Q6H PRN PO 11/04/16 06:30 12/04/16 06:29 Morphine Sulfate (MoRPHine SULFATE INJ) 4 mg Q3H PRN IV 11/04/16 06:30 11/18/16 06:29
[2016-11-04] MEDS: LEVOFLOXACIN 500 MG TAB PO SCH (11:35)
--- NOTE | 2016-11-04 12:40 | ECHOCARDIOGRAM REPORT ---
*NOTICE TO RECEIVING CONSTITUTION PARTY AGENCY This information is strictly Confidential and protected under [place] law. [place] law prohibits you from making any further disclosure of this information unless further disclosure is expressly permitted by the written consent of the person to whom it pertains or is authorized by law. A general authorization for the release of medical or other information is not sufficient for this purpose. Hospital accepts no responsibility if the information is made available to any other person, INCLUDING THE PATIENT. Interpretation Summary * Name: ANGELES BURLESON Study Date: 11/04/2016 06:55 AM BP: 117/63 mmHg * Patient Location: C.2T\S\S231\S\1 HR: 77 * : 1955 (M/d/yyyy) Gender: Male Height: 66 in * Age: 60 yrs Ethnicity: [place] Weight: 189 lb * Ordering Physician: Mannie Calderon * Referring Physician: Self, Referred * Performed By: Manisha Mcnally RCS * * Reason For Study: Chest pain * BSA: 2.0 m2 * Compared to prior study, there is no significant change. * -- Conclusions -- * The left ventricle is normal in size. * There is moderate concentric left ventricular hypertrophy. * The left ventricular wall motion is normal. * Ejection Fraction = 65-70%. * Grade I diastolic dysfunction, (abnormal relaxation pattern). * There is no pericardial effusion. Procedure Details * A complete two-dimensional transthoracic echocardiogram was performed (2D, M-mode, Doppler and color flow Doppler). Left Ventricle * The left ventricle is normal in size. * There is moderate concentric left ventricular hypertrophy. * Left ventricular systolic function is normal. * Ejection Fraction = 65-70%. * The left ventricular wall motion is normal. Right Ventricle * The right ventricle is normal in size and function. Atria * The left atrial size is normal. * Right atrial size is normal. * No ASD detected; PFO is not assessed. Mitral Valve * The mitral valve anatomy is normal. * There is no mitral valve stenosis. * There is trace mitral regurgitation. Tricuspid Valve * The tricuspid valve anatomy is normal. * There is no tricuspid stenosis. * There is trace tricuspid regurgitation. Aortic Valve * The aortic valve is trileaflet. * No hemodynamically significant valvular aortic stenosis. * No aortic regurgitation is present. Pulmonic Valve * The pulmonic valve is not well visualized. Great Vessels * The aortic root is normal size. Pericardium/Pleural * There is no pericardial effusion. Great Vessels * Normal inferior vena cava diameter and respiratory variation suggests normal central venous pressure. Left Ventricular Diastolic Function * Grade I diastolic dysfunction, (abnormal relaxation pattern). MMode 2D Measurements and Calculations IVSd 0.97 cm IVSs 1.2 cm LVIDd 4.3 cm LVIDs 2.9 cm LVPWd 1.0 cm LVPWs 1.3 cm IVS/LVPW 0.97 FS 33.0 % EDV(Teich) 85.4 ml ESV(Teich) 32.6 ml EF(Teich) 61.8 % EDV(cubed) 82.3 ml ESV(cubed) 24.8 ml EF(cubed) 69.9 % % IVS thick 27.9 % % LVPW thick 26.4 % LV mass(C)d 142.8 grams LV mass(C)dI 73.1 grams/m\S\2 LV mass(C)s 113.1 grams LV mass(C)sI 57.9 grams/m\S\2 SV(Teich) 52.7 ml SI(Teich) 27.0 ml/m\S\2 SV(cubed) 57.6 ml SI(cubed) 29.5 ml/m\S\2 Ao root diam 3.3 cm Ao root area 8.4 cm\S\2 ACS 1.5 cm LA dimension 5.3 cm asc Aorta Diam 2.6 cm LA/Ao 1.6 Doppler Measurements and Calculations MV E max zane 77.6 cm/sec MV A max zane 87.2 cm/sec MV E/A 0.89 MV P1/2t max zane 83.8 cm/sec MV P1/2t 69.0 msec MVA(P1/2t) 3.2 cm\S\2 MV dec slope 355.5 cm/sec\S\2 MV dec time 0.25 sec Ao V2 max 132.0 cm/sec Ao max PG 7.0 mmHg Ao max PG (full) -0.16 mmHg LV V1 max PG 7.1 mmHg LV V1 max 133.6 cm/sec PA V2 max 112.6 cm/sec PA max PG 5.1 mmHg
[2016-11-04 12:45] LABS: CKMB/CK RATIO 2.7 (0-3.0)
[2016-11-04 14:30] LABS: PARTIAL THROMBOPLASTIN RATIO 2.2
[2016-11-04] MEDS: WARFARIN SOD 5 MG TAB PO SCH (15:57)
[2016-11-04] MEDS: ACETAMINOPHEN 325 MG TAB PO PRN (19:45)
[2016-11-04] MEDS: ROFLUMILAST 500 MCG TAB PO SCH (20:39)
[2016-11-05] VITALS (12 sets, daily range): BP systolic 107–125; BP diastolic 61–73; PULSE 77–87; TEMP 36.4–36.8; O2SAT 91–97
[2016-11-05] MEDS ORDERED: HYDROmorphone INJ 1 MG/ML SYR IV ONE (04:23)
[2016-11-05] MEDS ORDERED: OXYCODONE/ACETAMINOPHEN 5-325 TAB PO PRN (04:30)
[2016-11-05] MEDS ORDERED: TRAMADOL HCL 50 MG TAB PO PRN (04:30)
[2016-11-05] MEDS ORDERED: GUAIFENESIN 600 MG TABCR PO ONE (04:33)
[2016-11-05] MEDS ORDERED: HYDROCODONE/ACETAMOPHEN 5/325MG TAB PO PRN (04:45)
[2016-11-05] MEDS: BENZONATATE 100MG CAP PO PRN ×2 (05:05→18:46)
[2016-11-05] MEDS: METHYLPREDNISOLONE IV 40 MG in SYRINGE 0 ML IV SCH ×3 (05:05→20:18)
[2016-11-05] MEDS: ALBUT/IPRATROP 3MG/0.5MG NEB 3 ML VIAL INH SCH ×4 (07:00→18:52)
[2016-11-05 07:16] LABS: INR 1.3 (0.9-1.1); PROTHROMBIN TIME (PATIENT) 14.3 SECONDS (9.0-12.0)
[2016-11-05] MEDS: RANITIDINE HCL 150 MG TAB PO SCH ×2 (07:17→20:18)
[2016-11-05 07:21] LABS: BASO % 0.1 %; BASO ABS # 0.01 K/uL (0-0.2); COMPLETE YES; HEMATOCRIT 41.9 % (42-52); IG% 0.4 %; LYMPH % 4.2 %; LYMPH ABS # 0.79 K/uL (1.2-3.4); MEAN CELL VOLUME 93.3 fL (80-100); MEAN CORPUSCULAR HEMOGLOBIN 30.5 pg (25-34); MEAN CORPUSCULAR HGB CONC 32.7 g/dl (32-36); MEAN PLATELET VOLUME 11.3 fL (7.4-10.4); MONO % 6.9 %; NEUT % 88.4 %; PLATELET COUNT 224 K/uL (130-400); RED BLOOD COUNT 4.49 M/uL (4.7-6.1); WHITE BLOOD COUNT 18.62 K/uL (4.8-10.8)
[2016-11-05 07:27] LABS: BLOOD UREA NITROGEN 19 mg/dl (7-18); CARBON DIOXIDE 23 mmol/L (21-32); CHLORIDE 111 mmol/L (98-107); CREATININE 0.85 mg/dl (0.60-1.40); GLUCOSE 137 mg/dl (70-99); SODIUM 142 mmol/L (136-145)
[2016-11-05 08:27] LABS: MAGNESIUM 2.4 mg/dl (1.8-2.4); POTASSIUM 3.9 mmol/L (3.5-5.1)
[2016-11-05] MEDS: LEVOFLOXACIN 500 MG TAB PO SCH (11:11)
--- NOTE | 2016-11-05 15:12 | Progress Note ---
Medicine Progress Note Date & Time of Visit: Nov 05, 2016 at 15:05. Subjective Pt was seen and examined Lying in bed with no distress Pt continues coughing He said that he is having a hard time to bring the phlegm up Denies any chest pain, palpitation, dizziness Objective Last 8 Hrs Date Time Temp Pulse Resp B/P (MAP) Pulse Ox O2 Delivery O2 Flow Rate FiO2 11/05/16 14:00 36.4 82 18 122/67 (85) 95 Nasal Cannula 2.0 11/05/16 13:20 36.6 84 19 91 2.0 11/05/16 12:00 Nasal Cannula 2.0 11/05/16 11:39 36.6 84 19 107/61 (76) 91 Nasal Cannula 2.0 11/05/16 11:11 81 18 93 Room Air 11/05/16 08:00 Nasal Cannula 2.0 11/05/16 07:25 36.5 77 19 124/73 (90) 96 Nasal Cannula 3.0 Physical Exam: General- No acute distress Head- atraumatic Eyes- PERRL, EOMI ENT- oropharynx clear Neck- supple, no JVD Lungs- Coarse breath sound Heart- regular rhythm Abdomen- normal bowel sounds, soft Extremities-no calf tenderness Neuro- alert, oriented x 3; PERRL, EOMI Skin- warm & dry Laboratory Results: Last 24 Hours Test 11/05/16 06:08 11/05/16 08:03 White Blood Count 18.62 K/uL Red Blood Count 4.49 M/uL Hemoglobin 13.7 g/dL Hematocrit 41.9 % Mean Corpuscular Volume 93.3 fL Mean Corpuscular Hemoglobin 30.5 pg Mean Corpuscular Hemoglobin Concent 32.7 g/dl Platelet Count 224 K/uL Mean Platelet Volume 11.3 fL Neutrophils (%) (Auto) 88.4 % Lymphocytes (%) (Auto) 4.2 % Monocytes (%) (Auto) 6.9 % Eosinophils (%) (Auto) 0.0 % Basophils (%) (Auto) 0.1 % Neutrophils # (Auto) 16.46 K/uL Lymphocytes # (Auto) 0.79 K/uL Monocytes # (Auto) 1.29 K/uL Eosinophils # (Auto) 0.00 K/uL Basophils # (Auto) 0.01 K/uL RDW Standard Deviation 54.7 fL RDW Coefficient of Variation 16.0 % Immature Granulocyte % (Auto) 0.4 % Immature Granulocyte # (Auto) 0.07 K/uL Prothrombin Time 14.3 SECONDS Prothromb Time International Ratio 1.3 Activated Partial Thromboplast Time 50.8 SECONDS Partial Thromboplastin Ratio 2.0 Sodium Level 142 mmol/L Potassium Level mmol/L 3.9 mmol/L Chloride Level 111 mmol/L Carbon Dioxide Level 23 mmol/L Anion Gap 8.0 mmol/L Blood Urea Nitrogen 19 mg/dl Creatinine 0.85 mg/dl Est Creatinine Clear Calc Drug Dose 109.9 ml/min Estimated GFR () 108.2 Estimated GFR (Non- 93.4 BUN/Creatinine Ratio 22.0 Random Glucose 137 mg/dl Calcium Level 9.0 mg/dl Magnesium Level mg/dl 2.4 mg/dl Assessment & Plan COPD Continue Levaquin PO On solumedrol 40 mg IV q8Hr will change to PO tomorrow and taper Continue Duoneb nebulizer treatment Continue oxygen supplement Continue guaifenesin Continue Daliresp and Anoro Bilateral pulmonary embolism. Second episode of PE that seems unprovoked 1st PE was on June 2015 after he was admitted for back injury and was not move around Treated with Coumadin for 1 yr ( Coumadin stopped in June 2016) On IV insulin and Coumadin will need halfway anticoagulant therapy Need hypercoagulable work up, if he never had it done Will need hematology follow up as an outpatient INR 1.3 today Continue heparin drip and Coumadin Echo showed * The left ventricle is normal in size. * There is moderate concentric left ventricular hypertrophy. * The left ventricular wall motion is normal. * Ejection Fraction = 65-70%. * Grade I diastolic dysfunction, (abnormal relaxation pattern). * There is no pericardial effusion. Gastroesophageal reflux disease. Continue Zantac and Prilosec. Anxiety. continue Ativan p.r.n. Deep venous thrombosis prophylaxis on IV heparin drip/ coumadin Monitor INR CODE STATUS Full code Disposition On heparin drip transfer to medical Current Inpatient Medications: Current Inpatient Medications Medications (Trade) Dose Ordered Sig/Alex Route Start Time Stop Time Status Last Admin Dose Admin Ioversol (Optiray 320) 102 ml UD PRN IV 11/03/16 17:15 11/07/16 17:14 Acetaminophen (Tylenol Tab) 650 mg Q4H PRN PO 11/03/16 19:30 12/03/16 19:29 11/04/16 19:45 650 MG Al Hydrox/Mg Hydrox/Simethicone (Maalox Max Susp) 15 ml Q4H PRN PO 11/03/16 19:30 12/03/16 19:29 Magnesium Hydroxide (Milk Of Magnesia Susp) 30 ml Q12H PRN PO 11/03/16 19:30 12/03/16 19:29 Ondansetron HCl (Zofran Inj) 4 mg Q6H PRN IV 11/03/16 19:30 12/03/16 19:29 Nitroglycerin (Nitrostat Tab) 0.4 mg UD PRN SL 11/03/16 19:30 12/03/16 19:29 Polyethylene (Miralax Powder Packet) 17 gm DAILY PRN PO 11/03/16 19:30 12/03/16 19:29 Lorazepam (Ativan Tab) 0.5 mg Q8 PRN PO 11/03/16 19:30 12/03/16 19:29 Ranitidine HCl (zANTac TAB) 150 mg BID PO 11/03/16 21:00 12/03/16 20:59 11/05/16 07:17 150 MG Roflumilast (Daliresp Tab) 500 mcg HS PO 11/03/16 21:00 12/03/16 20:59 11/04/16 20:39 500 MCG Miscellaneous Information (Order Awaiting Action) 1 ea QS N/A 11/04/16 00:00 12/04/16 00:00 Albuterol/ Ipratropium (Duoneb) 3 ml QIDR INH 11/03/16 20:00 12/03/16 19:59 11/05/16 11:10 3 ML Albuterol/ Ipratropium (Duoneb) 3 ml Q4R PRN INH 11/03/16 19:30 12/03/16 19:29 11/05/16 00:05 3 ML Methylprednisolone Sodium Succinate 40 mg/Syringe 0.64 ml @ 1.5 mls/min Q8H IV 11/03/16 22:00 12/03/16 21:59 11/05/16 05:05 1.5 MLS/MIN Levofloxacin (Levaquin Tab) 500 mg DAILY@11 PO 11/04/16 11:00 11/10/16 10:59 11/05/16 11:11 500 MG Warfarin Sodium (Coumadin Tab) 5 mg DAILY@16 PO 11/04/16 16:00 12/04/16 15:59 11/04/16 15:57 5 MG Albuterol (Ventolin Hfa Inhaler) 2 puffs Q4H PRN INH 11/03/16 19:45 12/03/16 19:44 Heparin Sodium/ Dextrose 500 ml @ 28 mls/hr [id number] PRN IV 11/03/16 21:15 12/03/16 21:14 11/05/16 09:49 28 MLS/HR Hydromorphone HCl (Dilaudid Inj) 1 mg Q3H PRN IV 11/05/16 04:30 11/19/16 04:29 Acetaminophen/ Hydrocodone Bitart ([place] 5/325 Tab) 1 tab Q4 PRN PO 11/05/16 04:45 11/19/16 04:44 Benzonatate (Tessalon Perles Cap) 100 mg Q8H PRN PO 11/05/16 04:45 12/05/16 04:44 11/05/16 05:05 100 MG Guaifenesin (Mucinex Contr Rel Tab) 600 mg Q12 PO 11/06/16 09:00 12/06/16 08:59
[2016-11-05] MEDS: WARFARIN SOD 5 MG TAB PO SCH (16:12)
[2016-11-05] MEDS ORDERED: NURSING VERBAL MED ORDER ONE (18:45)
[2016-11-05] MEDS: ROFLUMILAST 500 MCG TAB PO SCH (20:18)
[2016-11-05] MEDS: HYDROmorphone INJ 1 MG/ML SYR IV PRN ×2 (20:22→23:08)
[2016-11-05] MEDS ORDERED: ZOLPIDEM TARTRATE 5 MG TAB PO SCH (22:00)
[2016-11-06] VITALS (9 sets, daily range): BP systolic 116–129; BP diastolic 61–73; PULSE 75–86; TEMP 36.5–36.8; O2SAT 92–98
[2016-11-06] MEDS: METHYLPREDNISOLONE IV 40 MG in SYRINGE 0 ML IV SCH ×2 (05:33→14:08)
[2016-11-06] MEDS: TRAMADOL HCL 50 MG TAB PO PRN (05:33)
[2016-11-06 06:11] LABS: BASO % 0.1 %; BASO ABS # 0.01 K/uL (0-0.2); COMPLETE YES; HEMATOCRIT 38.8 % (42-52); IG% 0.3 %; LYMPH % 5.1 %; LYMPH ABS # 0.81 K/uL (1.2-3.4); MEAN CELL VOLUME 92.4 fL (80-100); MEAN CORPUSCULAR HEMOGLOBIN 32.4 pg (25-34); MEAN CORPUSCULAR HGB CONC 35.1 g/dl (32-36); MEAN PLATELET VOLUME 11.5 fL (7.4-10.4); MONO % 6.7 %; NEUT % 87.8 %; PLATELET COUNT 227 K/uL (130-400)
[2016-11-06 06:34] LABS: INR 1.7 (0.9-1.1); PARTIAL THROMBOPLASTIN RATIO 2.9; PROTHROMBIN TIME (PATIENT) 18.7 SECONDS (9.0-12.0)
[2016-11-06 06:42] LABS: BUN/CREATININE RATIO 27.5 (10-20); CREATININE 0.77 mg/dl (0.60-1.40); MAGNESIUM 2.3 mg/dl (1.8-2.4); POTASSIUM 4.3 mmol/L (3.5-5.1)
[2016-11-06] MEDS: ALBUT/IPRATROP 3MG/0.5MG NEB 3 ML VIAL INH SCH ×4 (06:55→19:04)
[2016-11-06] MEDS: BENZONATATE 100MG CAP PO PRN (08:03)
[2016-11-06] MEDS: RANITIDINE HCL 150 MG TAB PO SCH ×2 (08:03→20:18)
[2016-11-06] MEDS: GUAIFENESIN 600 MG TABCR PO SCH ×2 (08:03→20:19)
[2016-11-06 13:01] LABS: PARTIAL THROMBOPLASTIN RATIO 2.7
[2016-11-06] MEDS: LEVOFLOXACIN 500 MG TAB PO SCH (14:07)
[2016-11-06] MEDS: WARFARIN SOD 5 MG TAB PO SCH (16:06)
[2016-11-06] MEDS ORDERED: CMD5 PO (16:43)
[2016-11-06] MEDS ORDERED: WARFARIN SOD 2.5 MG TAB PO ONE (16:45)
--- NOTE | 2016-11-06 16:49 | Discharge Instructions ---
Discharge Instructions Date of Service Nov 06, 2016. Admission Reason for Admission: Copd Exacerbation, Pulmonary Embolism Discharge Discharge Diagnosis / Problem: (1) Pulmonary embolism (2) Bilateral pulmonary embolism VTE Date & Time Date of VTE Diagnosis: Nov 03, 2016 Time of VTE Diagnosis: 17:45 Discharge Goals Goal(s): Decrease discomfort, Improve disease control, Diagnostic testing, Therapeutic intervention Activity Recommendations Activity Limitations: resume your previous activity . Instructions / Follow-Up Instructions / Follow-Up HOSPITAL FOLLOW UP ANTICOAGULATION CLINIC FOLLOW UP CHECK PT/INR : Medication Instructions: * Warfarin is a medicine prescribed to prevent blood clots * Warfarin will thin your blood and help prevent new clots * Take your medications exactly as directed * Never skip a dose. Never take a double dose. If you miss a dose, take it as soon as you remember * It is important for your doctor to monitor your prothrombin time (PT). This is a lab test * Keep your appointment for lab tests Risk of Adverse Drug Reactions and Interactions: * Warfarin increases your risk of bleeding * The food you eat and other medications you take can affect how Warfarin works in your body * Ask your doctor about daily aspirin therapy * It is very important to talk with your doctor about all of the other medicines , antibiotics, vitamins or herbal products that you are taking * All of your medication must be approved by your doctor, including new medicines, as well as medicines you have taken before you started taking Warfarin Diet: * In order for Warfarin to work properly, it is important to keep your intake of Vitamin K as consistent as possible * You should avoid any sudden change in Vitamin K intake * Report any significant changes in your diet or weight to your doctor Call your Primary Care doctor if you experience any of the following: * Swelling or Pain in your leg * Sudden, continuous pain deep in a muscle * Pain that worsens when you are active or when you stand still for a long time * Chest Pain * Sudden Shortness of Breath * Rapid or pounding heart beat * Fainting * Dizziness * Cough with blood or bloody sputum * Sweating more than normal * Bruises * Heavy or uncontrolled bleeding * Blood in your urine, stool or vomit * Black or tarry stools Caring for Your Self at Home: * Avoid sitting, standing or lying down for long periods without moving your legs and feet * When traveling by car, stop to get out and move around at least once every 3 hours * On long airplane, train or bus rides, get up and move around when possible * If you can't get up, wiggle your toes and tighten your calves to keep your blood moving Follow Up: It is important for you to keep your follow up appointments with your medical provider. Current Hospital Diet Patient's current hospital diet: AHA Diet (Heart Healthy) Discharge Diet Recommended Diet: AHA Diet (Heart Healthy) Pending Studies Studies pending at discharge: yes List of pending studies: PT/INR ON Tuesday11/08/16 Medical Emergencies . Who to Call and When: Medical Emergencies: If at any time you feel your situation is an emergency, please call 911 immediately. . Non-Emergent Contact Non-Emergency issues call your: Primary Care Provider . . "Provider Documentation" section prepared by Ewa Cat. . VTE Core Measure Inpt VTE Proph given/why not?: Warfarin (Coumadin) Reason no anticoag overlap I/P: Treatment provided - N/A Reason no anticoag overlap @DC: Treatment not indicated [place] Drug Monitoring Program Search Results: no issues identified
[2016-11-06] MEDS ORDERED: LOVENOX TEACHING KIT ONE (17:00)
--- NOTE | 2016-11-06 17:55 | Progress Note ---
Internal Med Progress Note Date of Service: Nov 06, 2016. Provider Documentation: SUBJECTIVE: continues to have non productive cough having pleuritic chest pain with coughing spell no fever or chills no hypoxia OBJECTIVE: Vital Signs-as noted below Exam: General- No acute distress Head- atraumatic Eyes- PERRL, EOMI ENT- oropharynx clear Neck- supple, no JVD Lungs- diminished ; + wheeze noted Heart- regular rhythm Abdomen- normal bowel sounds, soft Extremities-no calf tenderness Neuro- alert, oriented x 3; PERRL, EOMI Skin- warm & dry Lab data as noted below. ASSESSMENT & PLAN: Bilateral pulmonary embolism. Second episode of PE - unprovoked 1st PE was on June 2015 after he was admitted for back injury and was not move around Treated with Coumadin for 1 yr ( Coumadin stopped in June 2016) On IV heparin wt based protocol and Coumadin INR 1.7 will changed to Lovenox sc /Coumadin will need 2-3 days overlap tx with Lovenox while INR therapeutic out pt follow up with Coagulation clinic will need care home anticoagulant therapy Will need hematology follow up as an outpatient Echo showed * The left ventricle is normal in size. * There is moderate concentric left ventricular hypertrophy. * The left ventricular wall motion is normal. * Ejection Fraction = 65-70%. * Grade I diastolic dysfunction, (abnormal relaxation pattern). * There is no pericardial effusion. COPD exacerbation : with cough symptom for possible Bronchitis on empiric abx with Levaquin PO complete 5 days course Cxray no evidence of pneumonia leukocytosis due to steroids will start to wean down steroid Continue guaifenesin added Robitussin AC for ongoing cough symptom Continue Daliresp and Anoro Gastroesophageal reflux disease. Continue Zantac and Prilosec. Anxiety disorder continue Ativan p.r.n. CODE STATUS Full code DVT PROPHYLAXIS therapeutic Lovenox bridge /Coumadin DISPOSITION pt does not have insurance will not be able to afford home Lovenox tx will remain in hospital till INR therapeutic and bridge therapy is complete Vital Signs: Date Time Temp Pulse Resp B/P (MAP) Pulse Ox O2 Delivery O2 Flow Rate FiO2 11/07/16 11:13 75 16 93 Room Air 11/07/16 08:09 36.5 65 18 129/74 (92) 94 Room Air 11/07/16 08:00 94 Room Air 11/07/16 07:16 70 16 94 Room Air 11/06/16 23:59 Room Air 11/06/16 23:36 36.5 77 18 129/73 (91) 93 Room Air 11/06/16 19:30 Room Air 11/06/16 19:05 86 16 92 Room Air 11/06/16 16:32 36.8 82 18 116/61 (79) 92 Room Air 11/06/16 16:00 94 Room Air 2.0 11/06/16 14:48 79 14 93 Room Air Lab Results: Results Past 24 Hours Test 11/06/16 12:33 11/07/16 05:23 Range/Units Activated Partial Thromboplast Time 69.9 21.0-31.0 SECONDS Partial Thromboplastin Ratio 2.7 White Blood Count 12.55 4.8-10.8 K/uL Red Blood Count 4.21 4.7-6.1 M/uL Hemoglobin 13.6 14.0-18.0 g/dL Hematocrit 39.0 42-52 % Mean Corpuscular Volume 92.6 80-100 fL Mean Corpuscular Hemoglobin 32.3 25-34 pg Mean Corpuscular Hemoglobin Concent 34.9 32-36 g/dl RDW Standard Deviation 54.3 36.4-46.3 fL RDW Coefficient of Variation 16.0 11.5-14.5 % Platelet Count 214 130-400 K/uL Mean Platelet Volume 11.2 7.4-10.4 fL Prothrombin Time 25.5 9.0-12.0 SECONDS Prothromb Time International Ratio 2.3 0.9-1.1
[2016-11-06] MEDS ORDERED: ENOXAPARIN 1 MG/KG SQ SCH (18:00)
[2016-11-06] MEDS: ENOXAPARIN 120 MG/0.8 ML SYR SQ SCH (18:50)
[2016-11-06] MEDS ORDERED: GUAIFENESIN/CODEINE 100MG/10MG 5ML UDC PO ONE (20:15)
[2016-11-06] MEDS: ROFLUMILAST 500 MCG TAB PO SCH (20:19)
[2016-11-06] MEDS ORDERED: TEMAZEPAM 7.5 MG CAP PO SCH (21:00)
[2016-11-06] MEDS ORDERED: METHYLPREDNISOLONE IV 40 MG in SYRINGE 0 ML IV SCH (21:00)
[2016-11-06] MEDS: HYDROmorphone INJ 1 MG/ML SYR IV PRN (22:23)
[2016-11-07] VITALS (9 sets, daily range): BP systolic 120–129; BP diastolic 71–76; PULSE 65–83; TEMP 36.5–36.7; O2SAT 91–97
[2016-11-07] MEDS: TRAMADOL HCL 50 MG TAB PO PRN (02:49)
[2016-11-07] MEDS: GUAIFENESIN/CODEINE 100MG/10MG 5ML UDC PO PRN ×4 (02:49→20:54)
[2016-11-07] MEDS: HYDROmorphone INJ 1 MG/ML SYR IV PRN (05:49)
[2016-11-07] MEDS: ENOXAPARIN 120 MG/0.8 ML SYR SQ SCH ×2 (05:53→16:56)
[2016-11-07 05:59] LABS: MEAN CELL VOLUME 92.6 fL (80-100); MEAN CORPUSCULAR HEMOGLOBIN 32.3 pg (25-34); MEAN CORPUSCULAR HGB CONC 34.9 g/dl (32-36); MEAN PLATELET VOLUME 11.2 fL (7.4-10.4); PLATELET COUNT 214 K/uL (130-400); RED BLOOD COUNT 4.21 M/uL (4.7-6.1); WHITE BLOOD COUNT 12.55 K/uL (4.8-10.8)
[2016-11-07 06:07] LABS: INR 2.3 (0.9-1.1); PROTHROMBIN TIME (PATIENT) 25.5 SECONDS (9.0-12.0)
[2016-11-07] MEDS: ALBUT/IPRATROP 3MG/0.5MG NEB 3 ML VIAL INH SCH ×4 (07:16→19:46)
[2016-11-07] MEDS: GUAIFENESIN 600 MG TABCR PO SCH ×2 (08:35→20:52)
[2016-11-07] MEDS: RANITIDINE HCL 150 MG TAB PO SCH ×2 (08:35→20:52)
[2016-11-07] MEDS: LEVOFLOXACIN 500 MG TAB PO SCH (10:37)
[2016-11-07] MEDS: WARFARIN SOD 5 MG TAB PO SCH (16:56)
--- NOTE | 2016-11-07 17:07 | Progress Note ---
Internal Med Progress Note Date of Service: Nov 07, 2016. Provider Documentation: SUBJECTIVE: cough is much better still has pleuritic chest wall pain unable to sleep last night ( was given Restoril ) wondering some other sleep aid can be helpful ordered for Trazodone 50 mg HS INR therapeutic today no bleeding complication noted OBJECTIVE: Vital Signs-as noted below Exam: General- No acute distress Head- atraumatic Eyes- PERRL, EOMI ENT- oropharynx clear Neck- supple, no JVD Lungs- diminished ; + wheeze noted Heart- regular rhythm Abdomen- normal bowel sounds, soft Extremities-no calf tenderness Neuro- alert, oriented x 3; PERRL, EOMI Skin- warm & dry Lab data as noted below. ASSESSMENT & PLAN: Bilateral pulmonary embolism. Second episode of PE - unprovoked 1st PE was on June 2015 after he was admitted for back injury and was not move around Treated with Coumadin for 1 yr ( Coumadin stopped in June 2016) was on IV heparin wt based protocol and Coumadin changed to Lovenox sc /Coumadin INR therapeutic 2.3 today cont overlap tx with Lovenox for another 24-48 hrs while INR therapeutic out pt follow up with Coagulation clinic will need fci anticoagulant therapy Will need hematology follow up as an outpatient Echo showed * The left ventricle is normal in size. * There is moderate concentric left ventricular hypertrophy. * The left ventricular wall motion is normal. * Ejection Fraction = 65-70%. * Grade I diastolic dysfunction, (abnormal relaxation pattern). * There is no pericardial effusion. COPD exacerbation : with cough symptom for possible Bronchitis on empiric abx with Levaquin PO complete 5 days course Cxray no evidence of pneumonia leukocytosis due to steroids -continued to improved on PO Prednisone , ordered to taper to 20 mg daily Continue guaifenesin added Robitussin AC for ongoing cough symptom Continue Daliresp and Anoro INSOMNIA : possible due to steroids ordered for Trazodone cont pain control for pleuritic chest pain with deep breath and cough Gastroesophageal reflux disease. Continue Zantac and Prilosec. Anxiety disorder continue Ativan p.r.n. CODE STATUS Full code DVT PROPHYLAXIS therapeutic Lovenox bridge /Coumadin DISPOSITION pt does not have insurance will not be able to afford home Lovenox tx will remain in hospital for another 24-48 hrs for anticoagulation tx with Lovenox bridge Medicine follow up with Dr Amaya will need to establish with Coag clinic at [place] for Coumadin dose and INR monitoring out pt follow up with Heme onc Vital Signs: Date Time Temp Pulse Resp B/P (MAP) Pulse Ox O2 Delivery O2 Flow Rate FiO2 11/07/16 19:48 76 16 94 Room Air 11/07/16 19:15 Room Air 11/07/16 16:27 36.5 77 18 120/71 (87) 91 Room Air 11/07/16 16:00 93 Room Air 11/07/16 14:25 83 16 97 Room Air 11/07/16 11:13 75 16 93 Room Air 11/07/16 08:09 36.5 65 18 129/74 (92) 94 Room Air 11/07/16 08:00 94 Room Air 11/07/16 07:16 70 16 94 Room Air 11/06/16 23:59 Room Air 11/06/16 23:36 36.5 77 18 129/73 (91) 93 Room Air Lab Results: Results Past 24 Hours Test 11/07/16 05:23 Range/Units White Blood Count 12.55 4.8-10.8 K/uL Red Blood Count 4.21 4.7-6.1 M/uL Hemoglobin 13.6 14.0-18.0 g/dL Hematocrit 39.0 42-52 % Mean Corpuscular Volume 92.6 80-100 fL Mean Corpuscular Hemoglobin 32.3 25-34 pg Mean Corpuscular Hemoglobin Concent 34.9 32-36 g/dl RDW Standard Deviation 54.3 36.4-46.3 fL RDW Coefficient of Variation 16.0 11.5-14.5 % Platelet Count 214 130-400 K/uL Mean Platelet Volume 11.2 7.4-10.4 fL Prothrombin Time 25.5 9.0-12.0 SECONDS Prothromb Time International Ratio 2.3 0.9-1.1
[2016-11-07] MEDS ORDERED: TRAMADOL HCL 50 MG TAB PO PRN (20:00)
[2016-11-07] MEDS: DOCUSATE SODIUM 100 MG CAP PO SCH (20:52)
[2016-11-07] MEDS: ROFLUMILAST 500 MCG TAB PO SCH (20:52)
[2016-11-07] MEDS ORDERED: TRAZODONE HCL 50 MG TAB PO SCH (21:00)
[2016-11-08] VITALS (9 sets, daily range): BP systolic 112–155; BP diastolic 70–88; PULSE 62–82; TEMP 36.3–36.7; O2SAT 93–95
[2016-11-08] MEDS: HYDROmorphone INJ 1 MG/ML SYR IV PRN (03:34)
[2016-11-08] MEDS: BENZONATATE 100MG CAP PO PRN (03:34)
[2016-11-08] MEDS ORDERED: NURSING VERBAL MED ORDER ONE (04:15)
[2016-11-08] MEDS ORDERED: NITROGLYCERIN 0.4 MG SL PER TAB CHARGE SL ONE ×2 (04:30→04:52)
[2016-11-08] MEDS ORDERED: NITROGLYCERIN 0.4 MG SL PER TAB CHARGE SL PRN (05:00)
[2016-11-08 05:04] LABS: BASO % 0.1 %; BASO ABS # 0.01 K/uL (0-0.2); COMPLETE YES; EOS % 0.3 %; HEMATOCRIT 41.8 % (42-52); IG% 0.5 %; LYMPH % 32.9 %; LYMPH ABS # 3.83 K/uL (1.2-3.4); MEAN CELL VOLUME 92.3 fL (80-100); MEAN CORPUSCULAR HEMOGLOBIN 31.8 pg (25-34); MEAN CORPUSCULAR HGB CONC 34.4 g/dl (32-36); MEAN PLATELET VOLUME 10.6 fL (7.4-10.4); MONO % 8.9 %; NEUT % 57.3 %; PLATELET COUNT 230 K/uL (130-400); RED BLOOD COUNT 4.53 M/uL (4.7-6.1); WHITE BLOOD COUNT 11.63 K/uL (4.8-10.8)
[2016-11-08 05:16] LABS: INR 2.6 (0.9-1.1); PARTIAL THROMBOPLASTIN RATIO 1.2; PROTHROMBIN TIME (PATIENT) 28.8 SECONDS (9.0-12.0)
[2016-11-08 05:24] LABS: ALT/SGPT 124 U/L (12-78); AST/SGOT 39 U/L (15-37); BLOOD UREA NITROGEN 23 mg/dl (7-18); BUN/CREATININE RATIO 27.3 (10-20); CALCIUM 8.4 mg/dl (8.5-10.1); CARBON DIOXIDE 25 mmol/L (21-32); CHLORIDE 110 mmol/L (98-107); CREATININE 0.85 mg/dl (0.60-1.40); GLUCOSE 104 mg/dl (70-99); MAGNESIUM 2.4 mg/dl (1.8-2.4); SODIUM 143 mmol/L (136-145)
[2016-11-08 05:29] LABS: ALKALINE PHOSPHATASE 69 U/L (45-117)
[2016-11-08] MEDS: ENOXAPARIN 120 MG/0.8 ML SYR SQ SCH (05:35)
--- NOTE | 2016-11-08 05:37 | Progress Note ---
Internal Med Progress Note Date of Service: Nov 08, 2016. Provider Documentation: Made aware by RN of L left-sided chest pain going to the neck. SBP 150s Relief with nitroglycerin. As per patient, he's had this chest pain for about 10 years. Chest pain same as the one he had on admission. EKG as per my interpretation no ischemia Troponin negative AP Acute on chronic chest pain Relief with nitroglycerin ? ACS ffup troponin at 10AM Cardio eval if troponin bump noted. Will relay to a.m. provider. Vital Signs: Date Time Temp Pulse Resp B/P (MAP) Pulse Ox O2 Delivery O2 Flow Rate FiO2 11/08/16 07:19 74 15 93 Room Air 11/08/16 05:34 36.7 62 20 117/75 (89) 93 Room Air 11/08/16 03:46 36.6 76 18 155/88 (110) 94 Room Air 11/08/16 00:01 Room Air 11/07/16 23:56 36.7 69 20 124/76 (92) 94 Room Air 11/07/16 19:48 76 16 94 Room Air 11/07/16 19:15 Room Air 11/07/16 16:27 36.5 77 18 120/71 (87) 91 Room Air 11/07/16 16:00 93 Room Air 11/07/16 14:25 83 16 97 Room Air 11/07/16 11:13 75 16 93 Room Air 11/07/16 08:09 36.5 65 18 129/74 (92) 94 Room Air 11/07/16 08:00 94 Room Air Lab Results: Results Past 24 Hours Test 11/08/16 04:52 Range/Units White Blood Count 11.63 4.8-10.8 K/uL Red Blood Count 4.53 4.7-6.1 M/uL Hemoglobin 14.4 14.0-18.0 g/dL Hematocrit 41.8 42-52 % Mean Corpuscular Volume 92.3 80-100 fL Mean Corpuscular Hemoglobin 31.8 25-34 pg Mean Corpuscular Hemoglobin Concent 34.4 32-36 g/dl Platelet Count 230 130-400 K/uL Mean Platelet Volume 10.6 7.4-10.4 fL Neutrophils (%) (Auto) 57.3 % Lymphocytes (%) (Auto) 32.9 % Monocytes (%) (Auto) 8.9 % Eosinophils (%) (Auto) 0.3 % Basophils (%) (Auto) 0.1 % Neutrophils # (Auto) 6.66 1.4-6.5 K/uL Lymphocytes # (Auto) 3.83 1.2-3.4 K/uL Monocytes # (Auto) 1.04 0.11-0.59 K/uL Eosinophils # (Auto) 0.03 0-0.5 K/uL Basophils # (Auto) 0.01 0-0.2 K/uL RDW Standard Deviation 53.8 36.4-46.3 fL RDW Coefficient of Variation 15.9 11.5-14.5 % Immature Granulocyte % (Auto) 0.5 % Immature Granulocyte # (Auto) 0.06 0.00-0.02 K/uL Prothrombin Time 28.8 9.0-12.0 SECONDS Prothromb Time International Ratio 2.6 0.9-1.1 Activated Partial Thromboplast Time 31.8 21.0-31.0 SECONDS Partial Thromboplastin Ratio 1.2 Sodium Level 143 136-145 mmol/L Potassium Level 4.0 3.5-5.1 mmol/L Chloride Level 110 98-107 mmol/L Carbon Dioxide Level 25 21-32 mmol/L Anion Gap 8.0 3-11 mmol/L Blood Urea Nitrogen 23 7-18 mg/dl Creatinine 0.85 0.60-1.40 mg/dl Est Creatinine Clear Calc Drug Dose 109.9 ml/min Estimated GFR () 108.2 Estimated GFR (Non- 93.4 BUN/Creatinine Ratio 27.3 10-20 Random Glucose 104 70-99 mg/dl Calcium Level 8.4 8.5-10.1 mg/dl Magnesium Level 2.4 1.8-2.4 mg/dl Total Bilirubin 0.3 0.2-1 mg/dl Aspartate Amino Transf (AST/SGOT) 39 15-37 U/L Alanine Aminotransferase (ALT/SGPT) 124 12-78 U/L Alkaline Phosphatase 69 45-117 U/L Total Creatine Kinase 56 39-308 U/L Creatine Kinase MB 1.0 0.5-3.6 ng/ml Creatine Kinase MB Ratio 1.8 0-3.0 Troponin I < 0.015 0-0.045 ng/ml Total Protein 5.9 6.4-8.2 gm/dl Albumin 3.0 3.4-5.0 gm/dl Globulin 2.9 2.5-4.0 gm/dl Albumin/Globulin Ratio 1.0 0.9-2 Lipase 124 73-393 U/L
[2016-11-08 06:13] LABS: CKMB/CK RATIO 1.8 (0-3.0)
[2016-11-08] MEDS: ALBUT/IPRATROP 3MG/0.5MG NEB 3 ML VIAL INH SCH ×3 (07:19→15:38)
--- NOTE | 2016-11-08 07:20 | DIAGNOSTIC IMAGING REPORT ---
SINGLE VIEW CHEST CLINICAL HISTORY: Atypical chest pain. FINDINGS: An AP, portable, upright chest radiograph is compared to chest x-ray and chest CT dated 11/03/2016. The examination is degraded by portable technique and patient rotation. The cardiomediastinal silhouette is normal for projection. Chronic interstitial thickening is similar to previous. There is bibasilar atelectasis. No airspace consolidation is seen typical for pneumonia and there is no large pleural effusion. No pneumothorax is seen. The skeletal structures are osteopenic. Postoperative change is seen in the right humeral head. A left shoulder arthroplasty is in place. IMPRESSION: No acute cardiopulmonary abnormality. Electronically signed by: Wayne Baez M.D. 11/08/2016 7:18 AM Dictated Date/Time: 11/08/2016 7:16 AM
[2016-11-08] MEDS: RANITIDINE HCL 150 MG TAB PO SCH (07:54)
[2016-11-08] MEDS: DOCUSATE SODIUM 100 MG CAP PO SCH (07:54)
[2016-11-08] MEDS: GUAIFENESIN 600 MG TABCR PO SCH (07:54)
[2016-11-08] MEDS ORDERED: POLYETHYLENE (MIRALAX) 17 GM PACK PO SCH (08:00)
[2016-11-08] MEDS ORDERED: OPTIRAY 320 IV PRN (08:30)
--- NOTE | 2016-11-08 09:52 | DIAGNOSTIC IMAGING REPORT ---
(CHEST FOR PE) ANGIO WITH CLINICAL HISTORY: 60 years-old Male presenting with history of bilateral pulmonary emboli, history of COPD, COPD exacerbation. TECHNIQUE: Multidetector CT angiography of the chest was performed after administration of intravenous contrast. 3-D volumetric and/or maximum intensity projection (MIP) images were subsequently reconstructed for review. IV contrast: 100 mL of Optiray 320. A dose lowering technique was used consistent with the principles of ALARA (as low as reasonably achievable). COMPARISON: 11/03/2016. CT DOSE (mGy.cm): The estimated cumulative dose is 658.33 mGy.cm. FINDINGS: Program Engineer topogram: Right humeral cortical compression plate and screw fixation and total left shoulder reverse arthroplasty. Pulmonary vasculature: The study is adequate for assessment of the pulmonary vascular tree. No convincing evidence of a filling defect within the pulmonary arteries to suggest embolus. Main pulmonary artery is not enlarged. No flattening of the interventricular septum. No intracardiac intracardiac filling defect. No reflux of contrast into the hepatic veins. Remaining chest: On soft tissue windows, normal thyroid and thoracic inlet. No axillary, supraclavicular, hilar, or mediastinal lymphadenopathy. Mild atherosclerosis of the aortic arch. Normal heart size. Coronary artery calcification. No pericardial or pleural effusion. Upper abdomen normal. On lung windows, bandlike opacities in the left lung base and dependent changes bilaterally likely atelectasis and scarring. Pulmonary cyst noted in the right upper lobe. Debris noted in the trachea and in subsegmental bronchi of both lower lobes. On bone windows, degenerative changes of the spine. Orthopedic hardware as mentioned above. IMPRESSION: 1. No evidence of pulmonary embolus on the current exam. Additionally, review of the prior CTA also demonstrates no evidence of pulmonary emboli. The previously identified abnormalities are consistent with motion related artifact. 2. Debris in the trachea and subsegmental bronchi of both lower lobes. This raises concern for aspiration. 3. Atelectasis or scarring at the lung bases. Electronically signed by: Chad Jensen M.D. 11/08/2016 9:50 AM Dictated Date/Time: 11/08/2016 9:39 AM
--- NOTE | 2016-11-08 10:19 | DIAGNOSTIC IMAGING REPORT ---
ULTRASOUND BILATERAL LOWER EXTREMITY VENOUS CLINICAL HISTORY: Suspected pulmonary embolus. COMPARISON STUDY: Lower extremity venous ultrasound dated 06/05/2015. TECHNIQUE: Real-time, grayscale, and color Doppler sonography of the deep veins of the right and left lower extremity was performed from the inguinal crease to the calf. Compression and augmentation were utilized. FINDINGS: There is no sonographic evidence of deep venous thrombosis identified in the right or left lower extremity. The common femoral, superficial femoral, and popliteal veins are patent and normally compressible bilaterally. The greater saphenous vein and the profunda femoris vein at the junction with the common femoral vein are clear in both legs. The visualized calf veins are patent bilaterally. A popliteal cyst on the right measures 2.6 x 1.0 x 1.7 cm. IMPRESSION: 1. There is no sonographic evidence of deep venous thrombosis identified in the right or left lower extremity. 2. Small right-sided Dickson's cyst. Electronically signed by: Wayne Baez M.D. 11/08/2016 10:17 AM Dictated Date/Time: 11/08/2016 10:16 AM
[2016-11-08] MEDS: GUAIFENESIN/CODEINE 100MG/10MG 5ML UDC PO PRN (11:04)
[2016-11-08] MEDS: LEVOFLOXACIN 500 MG TAB PO SCH (11:05)
--- NOTE | 2016-11-08 12:28 | Discharge Instructions ---
Discharge Instructions Date of Service Nov 08, 2016. Admission Reason for Admission: Copd Exacerbation, Pulmonary Embolism Activity Recommendations . Current Hospital Diet Patient's current hospital diet: AHA Diet (Heart Healthy) Medical Emergencies . Who to Call and When: Medical Emergencies: If at any time you feel your situation is an emergency, please call 911 immediately. . Non-Emergent Contact . . "Provider Documentation" section prepared by Ewa Cat. . VTE Core Measure Inpt VTE Proph given/why not?: Warfarin (Coumadin)
--- NOTE | 2016-11-08 12:31 | Discharge Instructions ---
Discharge Instructions Date of Service Nov 08, 2016. Admission Reason for Admission: Copd Exacerbation, Pulmonary Embolism Discharge Discharge Diagnosis / Problem: CHEST PAIN /NO EVIDENCE OF PULMONARY EMBOLISM Discharge Goals Goal(s): Decrease discomfort, Improve disease control Activity Recommendations Activity Limitations: resume your previous activity Driving or Machine Use: no limitations . Instructions / Follow-Up Instructions / Follow-Up HOSPITAL FOLLOW UP : 11/15/2016 11:10 AM Marie Weaver DO [facility], [place] DO NOT TAKE ASPIRIN, IBUPROFEN , ADVIL , NAPROXEN , ALEVE -MAY CAUSE YOU TO HAVE BLEEDING PLEASE NOTIFY YOUR FAMILY PHYSICIAN IN ANY EVENT FOR SERIOUS NOSE BLEED, BLOOD IN STOOL OR DARK STOOL Current Hospital Diet Patient's current hospital diet: AHA Diet (Heart Healthy) Discharge Diet Recommended Diet: AHA Diet (Heart Healthy) Pending Studies Studies pending at discharge: no Medical Emergencies . Who to Call and When: Medical Emergencies: If at any time you feel your situation is an emergency, please call 911 immediately. . Non-Emergent Contact Non-Emergency issues call your: Primary Care Provider . . "Provider Documentation" section prepared by Ewa Cat. . VTE Core Measure Inpt VTE Proph given/why not?: Warfarin (Coumadin)
--- NOTE | 2016-11-08 20:49 | Progress Note ---
Internal Med Progress Note Date of Service: Nov 08, 2016. Provider Documentation: SUBJECTIVE: had episode of chest pain last night which has resolved no hypoxia , cough has improved , having occasional non productive cough denies of pleuritic chest pain OBJECTIVE: Vital Signs-as noted below Exam: General- No acute distress Head- atraumatic Eyes- PERRL, EOMI ENT- oropharynx clear Neck- supple, no JVD Lungs- diminished ; no wheeze Heart- regular rhythm Abdomen- normal bowel sounds, soft Extremities-no calf tenderness Neuro- alert, oriented x 3; PERRL, EOMI Skin- warm & dry Lab data as noted below. ASSESSMENT & PLAN: SOB /CHEST PAIN : on Admission CT chest with contrast on 11/03/16 : reports : Study is positive for several small midlung emboli bilaterally. No evidence for major central pulmonary embolus. Chronic emphysematous change. pt had prior hx of Pulmonary embolism hx of PE on June 2015 after he was admitted for back injury and was not move around Treated with Coumadin for 1 yr ( Coumadin stopped in June 2016) pt started on IV heparin wt based protocol and Coumadin changed to therapeutic Lovenox sc bridge and Coumadin unable to discharge home on Lovenox bridge therapy as pt can not afford out of pocket may for Lovenox ( does not have insurance ) INR therapeutic 2.6 today repeat Cxray done this AM for ongoing cough : shows no acute cardiopulmonary abnormality received call form Radiology this AM while reviewing this AM chest xray and prior CT chest for comparison- Radiologist is convinced the report of PE in CT chest with contrast on 11/03/16 could possibly due to motion artifact repeat CT chest and lower extremity Doppler ordered CT chest with contrast today 11/08/16 : No evidence of pulmonary embolus on the current exam. Additionally, review of the prior CTA also demonstrates no evidence of pulmonary emboli. The previously identified abnormalities are consistent with motion related artifact. Lower ext Doppler negative for DVT Lovenox SC and Coumadin d/lisandra Pt and updated regarding the finding of CT chest Apologized for the unfortunate event pt did not had any bleeding complications form the therapeutic anticoagulation provided counselling to watch for future bleeding risk and avoid Aspirin /NSAID' s interim Pt's Advocate /service Excellence updated , abrasives sales representative form Service excellence spoke with pt and his as well Pt is disappointed with the mishap and prolong length of stay for anticoagulation , but accepts the apology pt is given information to contact hospital with any event of bleeding complication COPD exacerbation : symptom has improved with cough symptom for possible Bronchitis on empiric abx with Levaquin PO completed 5 days course Cxray no evidence of pneumonia leukocytosis due to steroids -continued to improved on Prednisone taper -PO prednisone d./lisandra as no wheeze , pt complains of anxiety /insomnia while on steroids INSOMNIA : possible due to steroids; D/lisandra ordered for Trazodone cont pain control for pleuritic chest pain with deep breath and cough Gastroesophageal reflux disease. Continue Zantac and Prilosec. Anxiety disorder continue Ativan p.r.n. CODE STATUS Full code DISPOSITION all anticoagulation D/lisandra discharge home today Medicine follow up with Dr Amaya Vital Signs: Date Time Temp Pulse Resp B/P (MAP) Pulse Ox O2 Delivery O2 Flow Rate FiO2 11/08/16 16:20 36.3 82 19 94 Room Air 11/08/16 15:57 36.3 82 19 119/70 (86) 94 Room Air 11/08/16 15:38 73 16 95 Room Air 11/08/16 11:37 78 16 95 Room Air 11/08/16 08:09 36.5 67 18 112/71 (85) 93 Room Air 11/08/16 08:00 93 Room Air 11/08/16 07:19 74 15 93 Room Air 11/08/16 05:34 36.7 62 20 117/75 (89) 93 Room Air 11/08/16 03:46 36.6 76 18 155/88 (110) 94 Room Air 11/08/16 00:01 Room Air 11/07/16 23:56 36.7 69 20 124/76 (92) 94 Room Air Lab Results: Results Past 24 Hours Test 11/08/16 04:52 11/08/16 10:34 Range/Units White Blood Count 11.63 4.8-10.8 K/uL Red Blood Count 4.53 4.7-6.1 M/uL Hemoglobin 14.4 14.0-18.0 g/dL Hematocrit 41.8 42-52 % Mean Corpuscular Volume 92.3 80-100 fL Mean Corpuscular Hemoglobin 31.8 25-34 pg Mean Corpuscular Hemoglobin Concent 34.4 32-36 g/dl Platelet Count 230 130-400 K/uL Mean Platelet Volume 10.6 7.4-10.4 fL Neutrophils (%) (Auto) 57.3 % Lymphocytes (%) (Auto) 32.9 % Monocytes (%) (Auto) 8.9 % Eosinophils (%) (Auto) 0.3 % Basophils (%) (Auto) 0.1 % Neutrophils # (Auto) 6.66 1.4-6.5 K/uL Lymphocytes # (Auto) 3.83 1.2-3.4 K/uL Monocytes # (Auto) 1.04 0.11-0.59 K/uL Eosinophils # (Auto) 0.03 0-0.5 K/uL Basophils # (Auto) 0.01 0-0.2 K/uL RDW Standard Deviation 53.8 36.4-46.3 fL RDW Coefficient of Variation 15.9 11.5-14.5 % Immature Granulocyte % (Auto) 0.5 % Immature Granulocyte # (Auto) 0.06 0.00-0.02 K/uL Prothrombin Time 28.8 9.0-12.0 SECONDS Prothromb Time International Ratio 2.6 0.9-1.1 Activated Partial Thromboplast Time 31.8 21.0-31.0 SECONDS Partial Thromboplastin Ratio 1.2 Sodium Level 143 136-145 mmol/L Potassium Level 4.0 3.5-5.1 mmol/L Chloride Level 110 98-107 mmol/L Carbon Dioxide Level 25 21-32 mmol/L Anion Gap 8.0 3-11 mmol/L Blood Urea Nitrogen 23 7-18 mg/dl Creatinine 0.85 0.60-1.40 mg/dl Est Creatinine Clear Calc Drug Dose 109.9 ml/min Estimated GFR () 108.2 Estimated GFR (Non- 93.4 BUN/Creatinine Ratio 27.3 10-20 Random Glucose 104 70-99 mg/dl Calcium Level 8.4 8.5-10.1 mg/dl Magnesium Level 2.4 1.8-2.4 mg/dl Total Bilirubin 0.3 0.2-1 mg/dl Aspartate Amino Transf (AST/SGOT) 39 15-37 U/L Alanine Aminotransferase (ALT/SGPT) 124 12-78 U/L Alkaline Phosphatase 69 45-117 U/L Total Creatine Kinase 56 39-308 U/L Creatine Kinase MB 1.0 0.5-3.6 ng/ml Creatine Kinase MB Ratio 1.8 0-3.0 Troponin I < 0.015 < 0.015 0-0.045 ng/ml Total Protein 5.9 6.4-8.2 gm/dl Albumin 3.0 3.4-5.0 gm/dl Globulin 2.9 2.5-4.0 gm/dl Albumin/Globulin Ratio 1.0 0.9-2 Lipase 124 73-393 U/L
--- NOTE | 2016-11-08 20:50 | Discharge Summary ---
Discharge Summary Date of Service Nov 08, 2016. Discharge Summary Admission Date: Nov 03, 2016 at 19:38 Discharge Date: Nov 09, 2016 Discharge Disposition: Home Principal Diagnosis: CHEST PAIN /NO EVIDENCE OF PULMONARY EMBOLISM Procedures: CT CHEST WITH CONTRAST 11/03/16 : IMPRESSION: Study is positive for several small midlung emboli bilaterally. No evidence for major central pulmonary embolus. Chronic emphysematous change. CT CHEST WITH CONTRAST 11/08/16 : IMPRESSION: 1. No evidence of pulmonary embolus on the current exam. Additionally, review of the prior CTA also demonstrates no evidence of pulmonary emboli. The previously identified abnormalities are consistent with motion related artifact. DOPPLER LOWER EXT 11/08/16 : No evidence of lower ext DVT Medication Reconciliation Continued Medications: Albuterol Hfa (Ventolin Hfa) 200 Puffs/12256 Mcg Aers 2 PUFFS INH Q4 PRN for SOB/Wheezing, #1 INHALER Hydrocodone/Acetaminophen 5MG/325MG ([place] 5MG/325MG) Tab 1 TABLET PO Q6 PRN for Pain, #20 TAB Ipratropium-Albuterol (Duoneb) 3 Ml Nebu 1 TREATMENT INH QID PRN for SOB/Wheezing, INHA Lorazepam (Ativan) 0.5 Mg Tab 0.5 MG PO Q8 PRN for Anxiety, TAB Omeprazole (Prilosec) 40 Mg Cap 40 MG PO DAILY, #30 CAP Ranitidine HCl (Ranitidine HCl) 150 Mg Tab 150 MG PO BID Roflumilast (Daliresp) 500 Mcg Tab 500 MCG PO HS Umeclidinium-Vilanterol (Anoro Ellipta 62.5-25 Mcg/INH) 1 Aer Aer 1 PUFF INH QAM Referrals At Discharge Follow up Referrals: Physician Referral - 11/15/16 with Marie Weaver D.O. Admission Information HPI (per Admitting provider): DATE OF ADMISSION: 11/03/2016 CHIEF COMPLAINT: Shortness of breath. HISTORY OF PRESENT ILLNESS: This is a 60-year-old male with past medical history significant for COPD, tobacco abuse, obstructive sleep apnea, history of PE in the last year, but stopped Coumadin in June of this year, history of constipation, who presents with shortness of breath. The patient says since last 3 or 4 days, he was getting short of breath and cough with whitish phlegm and this got progressively worsened, so came to the ER and he was treated for COPD exacerbation, but a CT angiogram of his chest showed bilateral PE and we were called for admission. Currently, the patient is hemodynamically stable and feels comfortable, complaints of some mild headaches and was dizzy for the last couple of days. No blurred visions. No sore throat. No difficulty swallowing. He has complains of some left lower chest pain at one point 3/10 in severity. No radiation. Some shortness of breath on exertion. No nausea, no vomiting, no abdominal pain. Normal bowel and bladder movements. No blood in the stools, no black stools. No blood in the urine. No rash, no swelling of the legs. ALLERGIES: No known drug allergies. PAST MEDICAL HISTORY: As mentioned above. PAST SURGICAL HISTORY: Reconstruction of the left shoulder joint, thoracotomy with exploration, umbilical hernia repair, right elbow surgery. MEDICATIONS AT HOME: The patient is on Ativan 0.5 mg p.o. t.i.d. p.r.n., Daliresp 500 mcg p.o. daily, Zantac 150 mg p.o. b.i.d., hydrocodone/acetaminophen 1 tablet p.o. q. 6 hours p.r.n., Ellipta 1 puff daily, omeprazole 40 mg p.o. daily, DuoNebs q.i.d., Ventolin 2 puffs every 6 hours p.r.n. FAMILY HISTORY: Significant for brother has leukemia. Mother has non Hodgkin lymphoma. Father has jaundice, alcohol abuse. Father has history of heart disorder. Brother has stroke. SOCIAL HISTORY: Smokes half pack a day for the last 45 years. No alcohol use. No drug use. . Physical Exam (per Admitting): REVIEW OF SYSTEMS: As per HPI. PHYSICAL EXAMINATION: GENERAL: The patient is of moderate build, not in distress. VITAL SIGNS: Temperature 37, pulse 98, respiratory rate 16, blood pressure 111/56, oxygen 96% on 2 liters. HEENT: No pallor, no icterus. Pupils equal, round, and reactive to light. NECK: No JVD, no neck masses, no carotid bruits. CARDIOVASCULAR: S1, S2 heard. Regular rate and rhythm, no murmur, no gallop. RESPIRATORY SYSTEM: Normal AP diameter. No accessory muscle use, bilateral rhonchi heard. ABDOMEN: Soft, bowel sounds present. Nontender. No distention. CENTRAL NERVOUS SYSTEM: Cranial nerves II through XII are grossly intact. Nonfocal. EXTREMITIES: No edema. No erythema. Hospital Course SOB /CHEST PAIN : on Admission CT chest with contrast on 11/03/16 : reports : Study is positive for several small midlung emboli bilaterally. No evidence for major central pulmonary embolus. Chronic emphysematous change. pt had prior hx of Pulmonary embolism hx of PE on June 2015 after he was admitted for back injury and was not move around Treated with Coumadin for 1 yr ( Coumadin stopped in June 2016) pt started on IV heparin wt based protocol and Coumadin changed to therapeutic Lovenox sc bridge and Coumadin unable to discharge home on Lovenox bridge therapy as pt can not afford out of pocket may for Lovenox ( does not have insurance ) INR therapeutic 2.6 today repeat Cxray done this AM for ongoing cough : shows no acute cardiopulmonary abnormality received call form Radiology this AM while reviewing this AM chest xray and prior CT chest for comparison- Radiologist is convinced the report of PE in CT chest with contrast on 11/03/16 could possibly due to motion artifact repeat CT chest and lower extremity Doppler ordered CT chest with contrast today 11/08/16 : No evidence of pulmonary embolus on the current exam. Additionally, review of the prior CTA also demonstrates no evidence of pulmonary emboli. The previously identified abnormalities are consistent with motion related artifact. Lower ext Doppler negative for DVT Lovenox SC and Coumadin d/lisandra Pt and updated regarding the finding of CT chest Apologized for the unfortunate event pt did not had any bleeding complications form the therapeutic anticoagulation provided counselling to watch for future bleeding risk and avoid Aspirin /NSAID' s interim Pt's Advocate /service Excellence updated , personal banking representative form Service excellence spoke with pt and his as well Pt is disappointed with the mishap and prolong length of stay for anticoagulation , but accepts the apology pt is given information to contact hospital with any event of bleeding complication COPD exacerbation : symptom has improved with cough symptom for possible Bronchitis on empiric abx with Levaquin PO completed 5 days course Cxray no evidence of pneumonia leukocytosis due to steroids -continued to improved on Prednisone taper -PO prednisone d./lisandra as no wheeze , pt complains of anxiety /insomnia while on steroids INSOMNIA : possible due to steroids; D/lisandra ordered for Trazodone cont pain control for pleuritic chest pain with deep breath and cough Gastroesophageal reflux disease. Continue Zantac and Prilosec. Anxiety disorder continue Ativan p.r.n. CODE STATUS Full code DISPOSITION all anticoagulation D/lisandra discharge home today Medicine follow up with Dr Amaya Total time spent on discharge = 40 mins This includes examination of the patient, discharge planning, medication reconciliation, and communication with other providers. Discharge Instructions Discharge Instructions Date of Service Nov 08, 2016. Admission Reason for Admission: Copd Exacerbation, Pulmonary Embolism Discharge Discharge Diagnosis / Problem: CHEST PAIN /NO EVIDENCE OF PULMONARY EMBOLISM Discharge Goals Goal(s): Decrease discomfort, Improve disease control Activity Recommendations Activity Limitations: resume your previous activity Driving or Machine Use: no limitations . Instructions / Follow-Up Instructions / Follow-Up HOSPITAL FOLLOW UP : 11/15/2016 11:10 AM Marie Weaver, [facility] DO NOT TAKE ASPIRIN, IBUPROFEN , ADVIL , NAPROXEN , ALEVE -MAY CAUSE YOU TO HAVE BLEEDING PLEASE NOTIFY YOUR FAMILY PHYSICIAN IN ANY EVENT FOR SERIOUS NOSE BLEED, BLOOD IN STOOL OR DARK STOOL Current Hospital Diet Patient's current hospital diet: AHA Diet (Heart Healthy) Discharge Diet Recommended Diet: AHA Diet (Heart Healthy) Pending Studies Studies pending at discharge: no Medical Emergencies . Who to Call and When: Medical Emergencies: If at any time you feel your situation is an emergency, please call 911 immediately. . Non-Emergent Contact Non-Emergency issues call your: Primary Care Provider . . "Provider Documentation" section prepared by Ewa Cat. . VTE Core Measure Inpt VTE Proph given/why not?: Warfarin (Coumadin) Additional Copies To Marie Weaver D.O.
[2016-11-09] MEDS ORDERED: DSY50 PO (09:25)
--- NOTE | 2016-11-09 09:27 | Progress Note ---
Progress Note Date of Service Nov 09, 2016. Progress Note ATTENDING NOTE : checked on patient this AM -called pt's home -pt did not had any significant bleeding complication no nose bleed he scratch his leg had some bleeding which stopped after pressure pt and is updated to notify his family physician or come to ER at [facility] for any evidence of bleeding with concern pt and family verbalized understanding and appreciated the call
== END 2016-11-08 17:24 | disposition home or self-care (01) | DRG 192 ==
LOC: C.EDB 12:57 → C.2T 19:38 → ENRESERV 20:03 → C.4E 11-05 13:33
PROVIDERS: ADMIT Internal Medicine; ATTEND Hospitalist
DX: J44.1 Chronic obstructive pulmonary disease with (acute) exacerbation (principal); R07.9 Chest pain, unspecified; G47.00 Insomnia, unspecified; T38.0X5A Adverse effect of glucocorticoids and synthetic analogues, initial encounter; K21.9 Gastro-esophageal reflux disease without esophagitis; F41.9 Anxiety disorder, unspecified; G47.33 Obstructive sleep apnea (adult) (pediatric); F17.200 Nicotine dependence, unspecified, uncomplicated; Z86.711 Personal history of pulmonary embolism; Z80.6 Family history of leukemia; Z80.7 Family history of other malignant neoplasms of lymphoid, hematopoietic and related tissues; Z81.1 Family history of alcohol abuse and dependence; Z82.3 Family history of stroke; Z82.49 Family history of ischemic heart disease and other diseases of the circulatory system

== ENCOUNTER → 2016-11-29 | Outpatient (CLI) | payer OTHER ==
[~2016-11-29] MED LIST changes: -ALBUAER2 INH; +DSY50 PO; -ESOM20CA PO; +NXM/40 PO; +RANI150T2 PO; -RANI300T2 PO; +VNTHFA/IN INH; +ZNTT/150 PO
[2016-11-29 15:17] LABS: ALKALINE PHOSPHATASE 101 U/L (45-117); ALT/SGPT 76 U/L (12-78); AST/SGOT 36 U/L (15-37)
== END | disposition home or self-care (01) ==
LOC: C.LAB 13:44
PROVIDERS: ATTEND Physician Assistant
DX: R05 Cough (principal)

== ENCOUNTER → 2016-12-21 | Outpatient (CLI) | payer OTHER ==
[2016-12-21 16:33] LABS: BASO % 0.3 %; BASO ABS # 0.03 K/uL (0-0.2); COMPLETE YES; EOS % 3.1 %; HEMATOCRIT 44.3 % (42-52); IG% 0.2 %; LYMPH % 33.5 %; LYMPH ABS # 3.22 K/uL (1.2-3.4); MEAN CELL VOLUME 92.3 fL (80-100); MEAN CORPUSCULAR HEMOGLOBIN 31.9 pg (25-34); MEAN CORPUSCULAR HGB CONC 34.5 g/dl (32-36); MEAN PLATELET VOLUME 11.3 fL (7.4-10.4); MONO % 8.8 %; NEUT % 54.1 %; PLATELET COUNT 282 K/uL (130-400); WHITE BLOOD COUNT 9.62 K/uL (4.8-10.8)
[2016-12-21 16:41] LABS: INR 0.9 (0.9-1.1)
[2016-12-21 17:04] LABS: BLOOD UREA NITROGEN 20 mg/dl (7-18); BUN/CREATININE RATIO 20.9 (10-20); CALCIUM 9.3 mg/dl (8.5-10.1); CARBON DIOXIDE 24 mmol/L (21-32); CHLORIDE 108 mmol/L (98-107); CREATININE 0.96 mg/dl (0.60-1.40); GLUCOSE 102 mg/dl (70-99); POTASSIUM 3.9 mmol/L (3.5-5.1); SODIUM 140 mmol/L (136-145)
== END | disposition home or self-care (01) ==
LOC: C.LAB 15:43
PROVIDERS: ATTEND Physician Assistant
DX: R05 Cough (principal)

== ENCOUNTER → 2016-12-23 | Day surgery (SDC) | payer OTHER ==
--- NOTE | 2016-12-22 16:16 | HISTORY & PHYSICAL EXAMINATION ---
DATE OF ADMISSION: 12/23/2016 HISTORY OF PRESENT ILLNESS: This 61-year-old male who is followed in the outpatient office for COPD/pulmonary emphysema. Relevant past medical history includes COPD/emphysema, history of DVT, hypertension, and hyperlipidemia. He does have longstanding history of tobacco use 3/4-1.5 pack per day x55 years. 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 In 2012, the patient underwent left upper lobe wedge resection of pulmonary nodule with pathology consistent with fungal infection with granulomatous pneumonitis. The patient's history is notable for COPD diagnosed in 2004. Initially, he was prescribed Dulera and Spiriva, but more recently transitioned to Anoro and Daliresp. Polysomnogram 11/01/2016 was diagnostic with borderline obstructive sleep apnea (RDI 8.8) and associated hypoxia. CAT scan December 2014: Bilaterally apical emphysema with abnormal focus of ground-glass and small cyst formation in the anterior right upper lobe measuring 1.9 cm. Bronchoscopy completed. Following this, January 2015 was benign in terms of pathology and cytology. Pet/CT January 2015: 1.6 cm multiloculated cystic focus in the right upper lobe with minimal associated FDG uptake and an SUV max of 1.4. This was notable to be relatively stable favoring benign etiology. When compared to CT from 12/25/2014 and 05/15/2011. No further workup was deemed necessary. In the summer of 2015, the patient fell 30 feet from scaffolding while at work. He was admitted to the hospital with multiple musculoskeletal injuries as well as a DVT. CT angiogram July 2015 was without thromboembolic disease. January 2016, he underwent bronchoscopy for symptoms of persistent cough and dyspnea despite aggressive outpatient treatment. This procedure noted erythema of the epiglottis and vocal cords with diffuse mucus production in the upper and lower airways which was lavaged. Cultures were both unremarkable. He improved significantly clinically post-procedure. CT of the chest December 2015 describe moderate emphysema with a stable 17 mm focus of clustered cysts located in the right upper lobe as well as left lower lobe scarring which was felt to be stable. On 11/03/2016-11/09/2016, the patient was admitted to [facility] with symptoms of chest pain, dyspnea and cough. CT angiogram 11/08/2016 was suggestive for pulmonary embolism initially; however, this was degraded by motion artifact and somewhat unclear. He was anticoagulated and testing was repeated and this repeated testing was not consistent with thromboembolic disease and NOT anticoagulation was discontinued. Per discharge summary, he was discharged on a 5-day course of Levaquin. Steroids were held secondary to leukocytosis and associated insomnia/anxiety felt to be related to pharmacologic. While inpatient, echocardiogram 11/04/2016 was notable for preserved ejection fraction 65-70% with evidence of grade 1 diastolic dysfunction. On exam/interview in the outpatient setting November 2016, he describes persistent symptoms of dyspnea which remained unchanged since his previous admission. He reported that cough has been persistent since September productive of clear sputum with associated wheeze, predominantly in the evenings. He had been prescribed an additional course of azithromycin and steroid, but obtained no improvement with this. He reported that his cough was present 24 hours 7 days a week and would wake him from sleep at night. He denied any association with indoor/outdoor p.o. intake. He did report increased symptoms of anxiety with the levalbuterol, but apparently tolerated DuoNebs in the hospital as well. PAST MEDICAL HISTORY: 1. Deviated nasal septum. 2. Arthritis. 3. Carpal tunnel. 4. Cellulitis. 5. Cervical radiculopathy. 6. COPD. 7. Post-thoracotomy pain. 8. Gastroesophageal reflux disease. 9. Pulmonary emphysema. 10. Hyperlipidemia. 11. Hypertension. 12. Hypertrophy of the nasal turbinates. 13. Obesity. 14. Pharyngitis. 15. Pneumothorax. 16. ? Histoplasmosis. PAST SURGICAL HISTORY: 1. Chest tube insertion. 2. ____ surgery. 3. Hernia repair. 4. Lung lobectomy. 5. Shoulder surgery. 6. Sinus surgery. 7. Thoracotomy. FAMILY HISTORY: 1. Non-Hodgkin's lymphoma. 2. Cardiac disease. 3. Hypertension. 4. Cancer. SOCIAL HISTORY: 1. Denies history of alcohol use. 2. History of heavy tobacco use. 3. The patient is currently . 4. The patient denies history of smokeless tobacco use. CURRENT HOME MEDICATIONS: 1. Anoro Ellipta 62.5-25 mcg inhalation aerosol powder: Inhale 1 puff daily. 2. Ipratropium-albuterol 0.5-2.5 mg per 3 mL inhalation solution: Use 1 unit dose in nebulizer every 4 hours as needed. 3. Mucinex 600 mg tablet extended release: Take one tablet every 12 hours. 4. Ventolin, use as directed. 5. Daliresp 500 mcg oral tablet: Take 1 tablet daily. 6. Levalbuterol hydrochloride 1.25 per 3 mL inhalation nebulizer solution: Use 1 unit dose in nebulizer every 4-6 hours as needed. 7. Ranitidine hydrochloride 300 mg oral tablet: Take 1 tablet at bedtime. 8. Lyrica 100 mg oral capsule: Take 1 capsule 3 times a day. 9. Nexium 20 mg oral capsule delayed release: Take as directed. ALLERGIES: No known drug allergies. PHYSICAL EXAMINATION: VITAL SIGNS: Blood pressure 122/84 right upper extremity sitting, height 5 feet 6 inches, weight 190 pounds. Oxygen saturation 92% on room air, respiratory rate 17 respirations per minute, temperature 98.3 degrees Fahrenheit oral, and heart rate 86 beats per minute. CONSTITUTIONAL: Well-developed, well-nourished male. No acute distress. HEAD: Positive facial symmetry. EYES: EOMI, PERRLA, no conjunctival injection. MOUTH: Mallampati 1. Dentures in place without exudate, or postnasal drip visible. RESPIRATORY: Nonlabored respirations. Bilateral wheeze. Cough productive with respiration. No rales or rhonchi. No clubbing or cyanosis. CARDIOVASCULAR: Regular rate and rhythm. No murmurs, rubs or gallops. EXTREMITIES: +2 radial pulses. Less than 1 second capillary refill distally. INTEGUMENTARY: No rashes, ecchymosis. Tattoo in left arm. EXTREMITIES AND MUSCULOSKELETAL: Right upper extremity surgical scar. No calf tenderness. NEUROLOGIC: Alert and oriented, data recall intact. Appropriate affect. REVIEW OF SYSTEMS: CONSTITUTIONAL: Denies fever, malaise, chills or fatigue. EYES: Negative. ENT: As noted in HPI, but denies pharyngitis, nasal discharge, or vocal hoarseness. CARDIOVASCULAR: Mass noted in HPI. Denies chest pain, palpitations, or peripheral edema. RESPIRATORY: Positive for cough and wheeze, but as noted in HPI. No dyspnea or dyspnea during exertion. GASTROINTESTINAL: Negative. INTEGUMENTARY: Negative. HEMATOLOGIC AND LYMPHATICS: Negative. IMPRESSION AND PLAN: A 61-year-old male seen in the outpatient office for symptoms of persistent cough and dyspnea despite both inpatient and outpatient course. 1. Bronchoscopy with appropriate preprocedural blood work. 2. Sleep apnea by respiratory disturbance index with associated hypoxia - split night polysomnogram. 3. Asmanex 220 b.i.d. 4. Followup post-procedure in testing.
[2016-12-23] VITALS (11 sets, daily range): BP systolic 103–127; BP diastolic 67–83; PULSE 64–80; TEMP 36.4–36.6; O2SAT 90–99; Ht 167.6 cm; Wt 86.0 kg
[~2016-12-23] VITALS: Ht 167.6 cm; Wt 86.0 kg
[~2016-12-23] MED LIST changes: +FENTANYL CITRATE INJ 50 MCG/1 ML 2 ML VIAL IV ONE; +MIDAZOLAM HCL 5 MG/ML 1 ML VIAL IV ONE; +NURSING VERBAL MED ORDER ONE; +SODIUM CHLORIDE 0.9% 1000ML 1,000 ML IV SCH
--- NOTE | 2016-12-23 09:21 | Procedure Note ---
Pre-Mod Sedation Assessment General Date of Moderate Sedation: Dec 23, 2016. Review Cardiovascular: regular rate, rhythm, no edema, no gallop, no JVD, no murmur Abdomen: normal bowel sounds, non tender, soft, normal rectal exam Lungs: + pertinent finding (decreased breath sounds bilaterally) Airway Class: III Pre-Sedation Airway Assessment Able to Visualize Vocal Cords: Yes Short Thick Neck: Yes Smoking Status: Current Every Day Smoker Mallampati Classification: Class III ASA Classification: Class II Procedure Planning Contraindications-for Mod Sed: None Yes Notes The planned sedation has been discussed with the patient and consent obtained. I have identified the patient, determined the appropriateness of sedation and have assessed the patient immediately prior to the procedure. All medicine(s) and interventions are by my order.
--- NOTE | 2016-12-23 10:37 | Bronchoscopy Procedure Note ---
Bronchoscopy Procedure Note Procedure: Bronchoscopy, conscious sedation, bronchial lavage left upper lobe Consent: Obtained through the patient placed into the chart Pre-procedural diagnosis: Chronic cough with bronchiectasis Post-procedural diagnosis: Chronic cough with recurrent bronchiectasis Start time: 1016 End time: 1030 Total time: 13 minutes Analgesia: 2% liquid lidocaine: Via nebulizer 4% gel lidocaine: Via right naris 2% liquid lidocaine: Via bronchoscopy Sedation: Versed IV: 4 mg Fentanyl IV: 100 g Procedure: The Olympus video bronchoscope was used for this procedure and passed down through the right naris Right naris/posterior naris/posterior oropharynx: I diffuse erythema with notable cobblestoning of the posterior nasopharyngeal oropharyngeal regions Glottis: Anatomically within normal limits, false vocal cord just showed notable erythema bilaterally Vocal cords: Proper abduction and abduction, anatomically within normal limits Subglottis/trachea/Bee: Anatomically within normal limits Right bronchial tree: Right mainstem bronchus: Anatomically within normal limits Right upper lobe: Anatomically within normal limits Bronchus intermedius: Anatomically within normal limits Right middle lobe: Anatomically within normal limits Right lower lobe: Anatomically within normal limits Findings: No significant findings noted Left bronchial tree: Left mainstem bronchus: Anatomically within normal limits Left upper lobe: Anatomically within normal limits Lingula: Anatomically within normal limits Left lower lobe: Anatomically within normal limits Findings: No significant findings noted Bronchial alveolar lavage: Left upper lobe EBL: None Complications: None Follow-up: ASU
--- NOTE | 2016-12-23 10:37 | Procedure Note ---
Post-Moderate Sedation Plan General Date of Moderate Sedation Dec 23, 2016. Vital Signs: Vital Signs Past 12 Hours Date Time Temp Pulse Resp B/P (MAP) Pulse Ox O2 Delivery O2 Flow Rate FiO2 12/23/16 09:09 36.4 69 18 127/68 (87) 95 Room Air Review - Discharge Plan Post Moderate Sedation Plan: On clinical assessment, the patient appears to have tolerated the conscious sedation without complications. Patient is recovering as anticipated. Patient will continue to be monitored by nursing and may be discharged when conscious sedation discharge criteria are met.
--- NOTE | 2016-12-23 10:40 | Discharge Instructions ---
Discharge Instructions Date of Service Dec 23, 2016. Admission Reason for Admission: Copd, Cough Discharge Discharge Diagnosis / Problem: chronic cough with chronic bronchitis Discharge Goals Goal(s): Improve function, Diagnostic testing Activity Recommendations Activity Limitations: resume your previous activity . Instructions / Follow-Up Instructions / Follow-Up Follow[facility]up in the [facility] pulmonary clinic Current Hospital Diet Patient's current hospital diet: Discharge Diet Recommended Diet: Regular Diet Procedures Procedures Performed: Bronchoscopy, bronchial lavage and conscious sedation Pending Studies Studies pending at discharge: no Medical Emergencies . Who to Call and When: Medical Emergencies: If at any time you feel your situation is an emergency, please call 911 immediately. . Non-Emergent Contact Non-Emergency issues call your: Slip Box Changer . . "Provider Documentation" section prepared by Rafiq Smith. . VTE Core Measure Inpt VTE Proph given/why not?: Treatment not indicated
== END | disposition home or self-care (01) ==
LOC: C.ACU 08:28
PROVIDERS: ATTEND Internal Medicine Critical Care Medicine
DX: J47.1 Bronchiectasis with (acute) exacerbation (principal); R05 Cough; F17.210 Nicotine dependence, cigarettes, uncomplicated; I10 Essential (primary) hypertension; E78.5 Hyperlipidemia, unspecified

== ENCOUNTER → 2017-02-28 | Outpatient (CLI) | payer OTHER ==
[~2017-02-28] MED LIST changes: -DSY50 PO; -FENTANYL CITRATE INJ 50 MCG/1 ML 2 ML VIAL IV ONE; -MIDAZOLAM HCL 5 MG/ML 1 ML VIAL IV ONE; -NURSING VERBAL MED ORDER ONE; -RANI150T2 PO; -SODIUM CHLORIDE 0.9% 1000ML 1,000 ML IV SCH
[2017-02-28 13:11] LABS: BASO % 0.4 %; BASO ABS # 0.03 K/uL (0-0.2); EOS % 3.9 %; EOS ABS # 0.33 K/uL (0-0.5); HEMATOCRIT 47.8 % (42-52); HEMOGLOBIN 16.6 g/dL (14.0-18.0); IG# 0.01 K/uL (0.00-0.02); LYMPH % 31.2 %; LYMPH ABS # 2.67 K/uL (1.2-3.4); MEAN CELL VOLUME 93.9 fL (80-100); MEAN CORPUSCULAR HEMOGLOBIN 32.6 pg (25-34); MEAN CORPUSCULAR HGB CONC 34.7 g/dl (32-36); MEAN PLATELET VOLUME 12.2 fL (7.4-10.4); MONO % 10.3 %; MONO ABS # 0.88 K/uL (0.11-0.59); NEUT % 54.1 %; NEUT ABS # 4.65 K/uL (1.4-6.5); PLATELET COUNT 251 K/uL (130-400); RED CELL DISTRIBUTION WIDTH CV 14.3 % (11.5-14.5); RED CELL DISTRIBUTION WIDTH SD 48.7 fL (36.4-46.3); WHITE BLOOD COUNT 8.57 K/uL (4.8-10.8)
--- NOTE | 2017-02-28 15:35 | DIAGNOSTIC IMAGING REPORT ---
THREE-PHASE NUCLEAR BONE SCAN OF THE THORAX; WHOLE-BODY BONE SCAN CLINICAL HISTORY: Left shoulder pain. Left shoulder arthroplasty. COMPARISON STUDY: Bone scan of the thorax dated 12/26/2014. Chest CT dated 11/08/2016. Left shoulder radiographs dated . TECHNIQUE: Following the IV administration of 27.3 mCi of technetium 99m MDP, three-phase bone scan of the thorax was performed. Anterior and posterior flow and blood pool phase imaging was performed. Bone phase imaging of the thorax was performed at three hours in multiple obliquities. Whole body bone scan images were also obtained at 3 hours in the anterior and posterior projections. Note that interpretation is suboptimal without current plain film correlate. FINDINGS: There is no hyperemia identified involving the shoulders on the flow or blood pull phase images. On the bone phase imaging there is a photopenic defect consistent with a left shoulder arthroplasty. There is abnormal tracer deposition identified around the history of the arthroplasty in the proximal stem. This is nonspecific but suggests loosening. Activity is also identified in the right proximal humerus and shoulder which may be related to chronic posttraumatic change. On the whole body imaging there is no abnormal osseous tracer deposition identified typical in appearance for bony metastatic disease. Typically degenerative uptake is identified the hips, knees, ankles, and spine. There is expected excreted activity within the renal collecting system and bladder. IMPRESSION: 1. Three-phase negative bone scan of the left shoulder. 2. Abnormal tracer deposition is identified around the left shoulder arthroplasty as above. This is nonspecific and could represent aseptic loosening in the appropriate clinical setting. Clinical correlation will be required. 3. Increased activity is present within the right proximal humerus and shoulder. This is likely related to chronic postoperative and posttraumatic change. Radiographic correlation is recommended. 4. Additional foci of typically degenerative activity are seen on the whole body images. Electronically signed by: Wayne Baez M.D. 02/28/2017 3:33 PM Dictated Date/Time: 02/28/2017 3:27 PM
--- NOTE | 2017-03-02 14:32 | CODING QUERY NO DIAGNOSIS ---
: 1955 TREATMENT RENDERED WITHOUT A DIAGNOSIS To promote full compliance with coding requirements relating to patient care, physician participation is requested in all cases of lumber buyer uncertainty. Please assist us with providing a diagnosis/symptom for the test(s) below: A diagnosis/symptom was not documented on your Order. A valid diagnosis/symptom is required to bill all insurances. Please remember that we are unable to code a diagnosis of rule out, probable, possible, questionable, or suspected. Tests that require a diagnosis: Date of Service: 02/28/2017 * CBC w/ auto differential DIAGNOSIS: * Erythrocyte Sedimentation Rate DIAGNOSIS: * C-Reactive protein DIAGNOSIS: Provider Signature: Date: Thank you Minerva Acuna Health Information Management Once completed, please kindly fax back to [phone] For questions please call [phone]
== END | disposition home or self-care (01) ==
LOC: C.NUCL 10:08
PROVIDERS: ATTEND Orthopaedic Surgery
DX: M25.512 Pain in left shoulder (principal); T84.498A Other mechanical complication of other internal orthopedic devices, implants and grafts, initial encounter; Z96.612 Presence of left artificial shoulder joint

== ENCOUNTER → 2017-04-29 | Outpatient (CLI) | payer OTHER ==
[~2017-04-29] MED LIST changes: +ATOR10TA82 PO; -HYDR-5688 PO; +MELO-83 PO; +RANI150T85 PO; -ZNTT/150 PO
--- NOTE | 2017-04-30 06:05 | PAP/PSG TECHNICIAN REPORT ---
[facility] Junior Copywriter Polysomnogram Report Study name: None Report date: 04/30/2017 Study date: 04/29/2017 Referring Physician: Kinza Webster PA-C, PA-C Name: ANGELES FRANKS Interpreting Physician: Joselito Garcias D.O. Date of : 1955 Junior Copywriter: Ronel Lopez [facility]. Sex: Male Age: 61 Study Type: PSG Weight: 190 lbs Height: 61 years, Height 5' 6" BMI: 30.66 Medications: ANORO ELLIPTA 62.5-25 MCG/INH, IPRATROPIUM-ALBUTEROL, MUCINEX 600 MG, VENTOLIN, DALIRESP 500 MCG, LEVABUTEROL 1.25 MG/3 ML, RANITIDINE 300 MG, LYRICA 100 MG, NEXIUM 20 MG Patient History 61 yr-old male here for a baseline/split study. He has a history of some shortness of breath, COPD, and emphysema. He had a sleep study in 2014 resulting in an AHI of 2.5/RDI of 8.8. He is back to assess his TAYLOR. His [place] scale is 9. The test was started on room air. ETCO2 testing was not utilized during this study. Room 1 Parameters Monitored NPSG: E1-M2, E2-M1, Fp1-M2, Fp2-M1, F3-M2, F4-M2, F4-M1, C3-M2, C4-M2, C4-M1, O1-M2, O2-M2, O2-M1, T3-M2, T4-M1, P3-M2, P4-M1, CHIN1, CHIN2, HR, EKG, Legs, PFLOW, SNOR, FLOW, CFLOW, Tidal Volume, THOR, ABDO, SpO2, PLTH, CPRESS, ETCO2 Wave, ETCO2, pH Sleep Architecture Sleep Stages Time at Lights Off 9:54:08 PM STAGES Time (min.) TST (%) Time at Lights On 4:51:38 AM Wake 38.0 -- Total Recording Time (TRT) 417.50 min. N1 74.5 20 Total Sleep Period (TSP) 405.5 min. N2 242.5 64 Total Sleep Time (TST) 379.5min. N3 0.0 0 Awake Time 38.0 min. REM 62.5 16 Wake after Sleep Onset 31.5 min. Sleep Efficiency (SE) 91 % Sleep Onset Latency (BETH) 6.5 min. Number of Stage 1 Shifts None Awakenings 18 Stage Changes 89 Number of REM periods 6 REM 62.5 16 REM Latency 52.0 min. NREM 317.0 84 Body Position Analysis Supine Right Left Side Prone Vertical Total Sleep Time (min.) 196.3 93.7 111.0 204.71 0.0 0.0 Total Sleep Time (%) 46% 25% 29% 54 0% N/A% Total Sleep Time REM (min.) 0.1 28.4 34.0 None 0.0 0.0 Total Sleep Time NREM (min.) 174.7 65.3 77.0 None 0.0 0.0 Intermittent Wake (min.) 21.5 11.3 5.3 None 0.0 0.0 Total Sleep Period (%) 47% None None None None None Arousals Myoclonus (PLM) * Events Count Index Events Count Index Spontaneous 17 3 Events Awake (PLMW) 48 75.8 Respiratory 13 2.2 Events Asleep w/ Arousal (PLMA) 53 8.4 PLM 52 8 Events Asleep w/o Arousal (PLMS) 545 86.2 Snoring 10 2 Total Asleep 598 94.5 Total 92 15 Total 646 93 Respiratory Analysis * CA OA MA CH H RERA Total Count 0 0 0 0 17 10 17 Index 0.0 0.0 0.0 0 2.7 2 4.3 Mean Duration 0.0 0.0 0.0 0.00 18.7 17.3 18.2 Longest Duration 0.0 0.0 0.0 0.00 0.0 21.4 26.8 Respiratory Event Summary Total Supine ~Supine Right Left Prone REM NREM Apneas Count 0 0 0 0 0 N/A 0 0 Index 0.0 0 0 0.0 0.0 N/A 0 0 Hypopneas (4% Desat) Count 17 6 11 3 8 N/A 11 6 Index 2.7 2.1 3 1.9 4.3 N/A 10.6 1.1 Apneas & All Hypopneas Count 17 6 11 3 8 N/A 11 6 Index 2.7 2 3 2 4 N/A 10.6 1.1 Respiratory Events (Java Web Developer+All Hyp+RERA) Count 17 12 15 3 12 N/A 11 6 Index 4.3 4 4 1.9 6.5 N/A 12.5 2.6 Respiratory Related Arousal Count 13 12 6 1 5 N/A 4 10 Index 2.2 3 2 1 3 N/A 4 2 Snoring Analysis Supine Right Left Prone REM NREM Total Snore duration 14.4 min Snores count 292 54 187 N/A 146 387 533 Snore mean duration 1.6 Sec Snores index 100 35 101 N/A 140.2 73.2 84.3 TST with snoring (%) 3.8% Desaturation Event Summary: Minimum %SpO2 Event Count Mean/Min/Max Duration(sec.) Desaturation Index % Time In Bed > 90 15 36.3 / 18.3 / 58.8 8.1 27.6 86 - 90 12 29.4 / 4.0 / 56.3 2.5 70.5 81 - 85 2 17.8 / 14.5 / 21.0 15.0 2.0 76 - 80 0 N/A 0.0 0.0 71 - 75 0 N/A 0.0 0.0 66 - 70 0 N/A 0.0 0.0 61 - 65 0 N/A 0.0 0.0 56 - 60 0 N/A 0.0 0.0 51 - 55 0 N/A 0.0 0.0 < 50 0 N/A 0.0 0.0 Total REM NREM Awake <50% 0.0 min. 0.0 min. 0.0 min. 0.0 min. 51 - 60% 0.0 min. 0.0 min. 0.0 min. 0.0 min. 61 - 70% 0.0 min. 0.0 min. 0.0 min. 0.0 min. 71 - 80% 0.0 min. 0.0 min. 0.0 min. 0.0 min. 81 - 90% 292.6 min. 42.7 min. 237.2 min. 12.7 min. 91 - 100% 111.3 min. 19.5 min. 77.2 min. 14.7 min. Average 90 89 90 91 Minimum SpO2 81 82 81 82 Desaturation Event Index 3.6 12.5 1.9 3.2 # Desat. Events below 89% 21 11 9 1 Time(%) with Saturation below 89% 10.3 5.4 4.5 0.4 Time(min.) with Saturation below 89% 41.8 21.9 18.2 1.7 Time (mins) REM (mins) NREM (mins) % of TST SpO2 Below 90% 22 12 N10 40.6 SpO2 Below 88% 10 0 0 4 Heart Rate Analysis Min (bpm) Max (bpm) Average (bpm) Awake 39 100 77 NREM 60 100 74 REM 58 127 72 Overall 58 127 74 Supplemental O2 Values Minimum O2 level: None Value Start Time End Time Junior Copywriter Comments Mr. Franks slept in the right, left, and supine positions. No cardiac arrhythmias were noted. PLMs were noted. Several episodes of bruxism were noted. Snoring was noted and scored as a 2 on a scale of 1 through 5. (0=no snoring, 5=snoring loud enough to be heard through a closed door or down the [place] way) He did not meet specific Split-Night criteria during the diagnostic portion of this study. He awoke to use the restroom one time during the night. Mr. Franks stated that he slept about the same as usual. The final report will be interpreted and signed by a sleep physician. The completed physician report will then be placed in the patient medical record. Therapy (cm H2O) 0 TIB (min.) 417.5 TST (min.) 379.5 Sleep Onset (min.) 6.5 REM Onset From Sleep (min.) 52.0 Sleep Efficiency % 91 Wakefulness (%) 9 Wakefulness (min.) 38.0 NREM 1 (%) 20 NREM 1 (min.) 74.5 NREM 2 (%) 64 NREM 2 (min.) 242.5 NREM 3 (%) 0 NREM 3 (min.) 0.0 REM (%) 16 REM (min.) 62.5 # Arousals 92 Arousal Index 15 # Snore 533 Snore Index 84.3 AHI 2.7 AHI Supine 2 AHI Non-Supine 3 NREM AHI 1.1 REM AHI 10.6 RDI 4.3 # Obstructive Apnea 0 # Central Apnea 0 # Mixed Apnea 0 # Hypopneas 17 RERAs 10 Total Respiratory Events 27 Time Below SpO2 89% (min.) 40.1 Mean NREM SpO2 (%) 90 Mean REM SpO2 (%) 89 Mean Sleep SpO2 (%) 90 Min NREM SpO2 (%) 81 Min REM SpO2 (%) 82 Position Supine (min.) 196.3 Position Non-supine (min.) 204.7 LM Index Sleep 94.5 LM Index NREM 102.6 LM Index REM 53.8 Mean Heart Rate (bpm) 74 Min Heart Rate (bpm) 58
--- NOTE | 2017-05-03 00:32 | POLYSOMNOGRAPH REPORT ---
CLINICAL DATA: The patient is a 61-year-old male. He has a history of shortness of breath. He has some degree of daytime somnolence with an Chaffee sleepiness scale score of 9. In 2014, he had a prior sleep study done. His apnea hypopnea index was only 2.5, but his RDI was 8.8. He is referred back to the sleep disorder center for an in-lab diagnostic polysomnography. SLEEP ARCHITECTURE: The total sleep period was 405.5 minutes. The total sleep time was 379.5 minutes. The sleep efficiency was normal at 91%. The sleep latency was 6.5 minutes. Wake after sleep onset was 31.5 minutes. The REM latency was mildly short at 52 minutes. There were 3 REM periods during the night. Sleep consisted of stage N1 20%, stage N2 64%, stage N3 0%, stage REM 16%. AROUSAL DATA: The patient had a total of 92 arousals including 17 spontaneous arousals, 13 respiratory arousals, 52 PLM arousals, and 10 snoring arousals. The arousal index was 15. PERIODIC LIMB MOVEMENTS DATA: The patient had a total of 598 periodic limb movements of sleep for a PLM index severely elevated at 94.5. There were 53 arousals associated with limb movements for a PLM arousal index of 8.4. ELECTROCARDIOGRAM: The underlying cardiac rhythm was normal sinus. The minimum heart rate was 58 beats per minute. The average heart rate was 74 beats per minute. No arrhythmias were noted. RESPIRATORY DATA: The patient had a total of 17 respiratory events, all hypopneas. Hypopneas were scored according to the 4% desaturation rule. The mean duration of the hypopneas was 18.7 seconds. The patient also had 10 RERAs. The apnea hypopnea index was 2.7. The respiratory disturbance index was 4.3. These results do not indicate significant obstructive sleep apnea. OXIMETRY DATA: The average saturation for the night was 90%. The minimum saturation recorded was 81%. I suspect this is artifactual. There was a total of 41.8 minutes with saturations less than 89%, but I do believe a fair amount of that is artifactual. There were some transient desaturations throughout the night. 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 No cardiac arrhythmias were noted. PLMs were noted. Several episodes of bruxism were noted. Snoring was noted and scored as a 2 on a scale of 1 through 5. He did not meet specific split night criteria during the diagnostic study. He awakened to use the restroom one time during the night. IMPRESSION: 1. No evidence of significant obstructive sleep apnea. 2. Periodic limb movement disorder. 3. Bruxism. COMMENTS: The patient had a small number of respiratory events, but not enough to be considered significant. He did have frequent periodic limb movements. It is unknown if he has symptoms of restless legs. Clinical correlation is required in that situation. He did have snoring as noted. RECOMMENDATIONS: 1. Clinical correlation is required to determine if he has true symptoms of restless legs. Likewise clinical correlation as to whether the leg movements are disturbing him during sleep. If so, consideration could be given to treatment with medication such as pramipexole. 2. It is suggested that a serum ferritin level be done in light of the leg movements. 3. The patient should be advised to avoid sleeping in the supine position. Typically there is more snoring and respiratory events while supine. 4. The patient should be advised of the appropriate principles of sleep hygiene including having a regular sleep-wake schedule and allowing approximately 7.5 hours of sleep time.
== END | disposition home or self-care (01) ==
LOC: C.NEUR 21:00
PROVIDERS: ATTEND Physician Assistant
DX: G47.30 Sleep apnea, unspecified (principal); J44.1 Chronic obstructive pulmonary disease with (acute) exacerbation; R05 Cough

== ENCOUNTER → 2017-05-04 | Outpatient (CLI) | payer OTHER ==
--- NOTE | 2017-05-04 09:07 | DIAGNOSTIC IMAGING REPORT ---
CHEST 2 VIEWS ROUTINE CLINICAL HISTORY: R06.02 Shortness of [id number] COMPARISON STUDY: November 08, 2016 FINDINGS: The heart is normal in size. There is chronic tenting of the left hemidiaphragm. There is no failure. There is no lobar consolidation. There is stable left lung interstitial thickening.[ Postsurgical changes involve the shoulders. IMPRESSION: Chronic changes similar to the preceding study. No active disease in the chest. Electronically signed by: Jamarcus Farfan M.D. 05/04/2017 9:06 AM Dictated Date/Time: 05/04/2017 9:05 AM
[2017-05-04 09:34] LABS: BASO % 0.5 %; BASO ABS # 0.04 K/uL (0-0.2); EOS % 3.3 %; EOS ABS # 0.28 K/uL (0-0.5); HEMATOCRIT 45.5 % (42-52); HEMOGLOBIN 16.1 g/dL (14.0-18.0); IG# 0.01 K/uL (0.00-0.02); LYMPH % 29.9 %; LYMPH ABS # 2.51 K/uL (1.2-3.4); MEAN CELL VOLUME 91.4 fL (80-100); MEAN CORPUSCULAR HEMOGLOBIN 32.3 pg (25-34); MEAN CORPUSCULAR HGB CONC 35.4 g/dl (32-36); MEAN PLATELET VOLUME 10.6 fL (7.4-10.4); MONO % 8.2 %; MONO ABS # 0.69 K/uL (0.11-0.59); NEUT ABS # 4.86 K/uL (1.4-6.5); PLATELET COUNT 269 K/uL (130-400); RED CELL DISTRIBUTION WIDTH CV 15.3 % (11.5-14.5); RED CELL DISTRIBUTION WIDTH SD 51.1 fL (36.4-46.3); WHITE BLOOD COUNT 8.39 K/uL (4.8-10.8)
[2017-05-04 10:16] LABS: ALBUMIN 3.9 gm/dl (3.4-5.0); ALT/SGPT 80 U/L (12-78); BLOOD UREA NITROGEN 22 mg/dl (7-18); CALCIUM 9.6 mg/dl (8.5-10.1); CARBON DIOXIDE 22 mmol/L (21-32); CREATININE 0.78 mg/dl (0.60-1.40); GLUCOSE 102 mg/dl (70-99); POTASSIUM 4.3 mmol/L (3.5-5.1); SODIUM 138 mmol/L (136-145)
[2017-05-04 10:18] LABS: ALKALINE PHOSPHATASE 102 U/L (45-117); AST/SGOT 48 U/L (15-37); TOTAL PROTEIN 7.4 gm/dl (6.4-8.2)
== END | disposition home or self-care (01) ==
LOC: C.RAD1850 08:40
PROVIDERS: ATTEND Physician Assistant
DX: R06.02 Shortness of breath (principal)

== ENCOUNTER → 2017-05-23 | Outpatient (CLI) | payer OTHER ==
--- NOTE | 2017-05-23 16:16 | DIAGNOSTIC IMAGING REPORT ---
CHEST 2 VIEWS ROUTINE CLINICAL HISTORY: 61 years-old Male presenting with R05 [id number]. TECHNIQUE: PA and lateral views of the chest were obtained. COMPARISON: 05/04/2017. FINDINGS: Atherosclerosis of the aortic arch. Cardiac silhouette normal in size. Lungs and pleural spaces clear. Reverse left total shoulder arthroplasty. Partially visualized orthopedic hardware in the right humeral head. Upper abdomen normal. IMPRESSION: 1. No acute cardiopulmonary disease. Electronically signed by: Chad Jensen M.D. 05/23/2017 4:14 PM Dictated Date/Time: 05/23/2017 4:13 PM
== END | disposition home or self-care (01) ==
LOC: C.RAD1850 15:45
PROVIDERS: ATTEND Physician Assistant
DX: R05 Cough (principal)

== ENCOUNTER → 2017-05-23 | Outpatient (CLI) | payer OTHER ==
[2017-05-23 09:50] LABS: ALBUMIN 3.2 gm/dl (3.4-5.0); TOTAL PROTEIN 6.7 gm/dl (6.4-8.2)
== END | disposition home or self-care (01) ==
LOC: C.LAB1850 07:22
PROVIDERS: ATTEND Physician Assistant
DX: G25.81 Restless legs syndrome (principal); J44.1 Chronic obstructive pulmonary disease with (acute) exacerbation

== ENCOUNTER 2018-02-13 16:26 | Inpatient (IN) ==
[2018-02-13] MEDS ORDERED: ALBUT/IPRATROP 3MG/0.5MG NEB 3 ML VIAL NEB STA ×3 (16:50→18:22)
[2018-02-13] MEDS ORDERED: methylPREDNISolone 125 MG/2 ML VIAL IV STA (16:50)
[2018-02-13] MEDS ORDERED: MAGNESIUM SULFATE / D5W 1 GM/100 ML BAG IV ONE (16:50)
[2018-02-13] MEDS ORDERED: SODIUM CHLORIDE 0.9% 1000ML 1,000 ML IV SCH ×2 (17:00→20:54)
[2018-02-13 17:19] LABS: Basophils # (auto) 0.03 K/uL (0-0.2); Basophils % (auto) 0.2 %; Eosinophils # (auto) 0.25 K/uL (0-0.5); Eosinophils % (auto) 1.8 %; Hematocrit (blood only) 45.8 % (42-52); Hemoglobin 15.9 g/dL (14.0-18.0); Immature Granulocytes # (auto) 0.04 K/uL (0.00-0.02); Immature Granulocytes % (auto) 0.3 %; Lymphocytes % (auto) 22.8 %; Mean Corpuscular Hgb Conc 34.7 g/dL (32-36); Mean Corpuscular Volume 93.1 fL (80-100); Mean Platelet Volume 10.9 fL (7.4-10.4); Monocytes % (auto) 11.4 %; Neutrophils % (auto) 63.5 %; Platelet Count 241 K/uL (130-400); RDW Standard Deviation 50.9 fL (36.4-46.3); Red Blood Count 4.92 M/uL (4.7-6.1); White Blood Count 14.02 K/uL (4.8-10.8)
--- NOTE | 2018-02-13 17:37 | XRay Report ---
XR chest 1V portable HISTORY: 62 years-old Male sob, chest pain acute shortness of breath with atypical chest pain COMPARISON: Chest radiograph 12/13/2017 TECHNIQUE: Portable AP view of the chest FINDINGS: Cardiomediastinal and hilar silhouettes are unchanged. Calcification of the thoracic aortic arch. Chr onic blunting of the left costophrenic angle. Chronic interstitial coarsening without pneumothorax, l arge pleural effusion or overt pulmonary edema. Subsegmental left basilar opacities suggest atelectas is/scarring. Left shoulder arthroplasty. ORIF changes of the right humerus with remote fracture. Of d egenerative changes of the right shoulder and spine. IMPRESSION: 1. No acute process. 2. Chronic interstitial coarsening with unchanged left perihilar and left lung base atelectasis/scarr ing. 3. Chronic blunting of the left costophrenic angle, also likely secondary to scarring/atelectasis. The above report was generated using voice recognition software. It may contain grammatical, syntax o r spelling errors. Electronically signed by: Gualberto Mata M.D. 02/13/2018 5:36 PM
[2018-02-13 17:38] LABS: Albumin Level 3.8 gm/dl (3.4-5.0); Blood Urea Nitrogen 18 mg/dl (7-18); Calcium 9.1 mg/dl (8.5-10.1); Carbon Dioxide 24 mmol/L (21-32); Chloride 107 mmol/L (98-107); Creatinine Clr Calc Pharmacy 76.4 ml/min; Est GFR (African American) 87.5; Est GFR (Non-African American) 75.5; Glucose 101 mg/dl (70-99); Magnesium 2.4 mg/dl (1.8-2.4); Potassium 3.7 mmol/L (3.5-5.1); Sodium 138 mmol/L (136-145)
[2018-02-13 17:44] LABS: Alanine Aminotransferase 64 U/L (12-78); Albumin Globulin Ratio 1.1 (0.9-2); Alkaline Phosphatase 87 U/L (45-117); Aspartate Aminotransferase 39 U/L (15-37); Bilirubin,Total 0.2 mg/dl (0.2-1); Globulin 3.4 gm/dl (2.5-4.0); NT Pro B Type Natriuretic Pept 51 pg/ml (0-900); Total Protein 7.2 gm/dl (6.4-8.2); Troponin I < 0.015 ng/ml (0-0.045)
--- NOTE | 2018-02-13 19:29 | History & Physical Report ---
Date of Service February 13, 2018 Assessment & Plan (1) COPD exacerbation: Reports increased productive cough of green sputum, increased SOB & wheezing since bronchoscopy on 01/25/[address] Reeder. Reports finished course of doxycycline and steroid taper last week without any improvements. In ER pt afebrile, P: 102 down to 96, R: 26 down to 22, BP: 113/71, 95% on RA. WBC: 14. DDimer: 450. negative troponin, no acute EKG changes. Was given magnesium 1gm, solumedrol 125mg IV, NSS @125ml/hr and 3 albuterol nebs with decreased SOB and reported increased air movement to auscultation by ER Dr. CXR: No acute process. Chronic interstitial coarsening with unchanged left perihilar and left lung base atelectasis/scarring. -solumedrol 40mg Q8H -Rocephin -xopenex/atrovent nebs -supplemental oxygen -cbc, bmp in am -pulmonology consult, appreciate recommendations (2) GERD (gastroesophageal reflux disease): -continue ranitidine (3) Anxiety: -continue ativan prn (4) HLD (hyperlipidemia): -continue atorvastatin (5) Tobacco use: -recommend smoking cessation -nicotine patch DVT Prophylaxis -Lovenox SQ Follows with Dr Marie Weaver for routine care Pt was seen with Dr Goldberg. See addendum History of Present Illness Chief Complaint: SOB Primary Care Provider: Marie Weaver Pt is 62 y/o M with PMH COPD, HTN, HLD, tobacco use, GERD presented to ER with complaint of increased shortness of breath. History of bronchoscopy on by Dr. Reeder. Patient states since procedure has had increased cough and increased sputum production. Reports green color sputum.Reports increased shortness of breath, wheezing, chest tightness. Follows with [facility] for pulmonology. Reports was called in doxycycline and steroid taper which he finished last week without any improvements. Denies ill contacts. Denies hemoptysis. Denies fever/chills, diaphoresis, N/V/D/C, GUTIERREZ, dizziness, syncope, vision changes, neck pain, CP, orthopnea, palpitations, hemoptysis, sore throat , choking, otalgia, rhinorrhea, abdominal pain, paresthesias, weakness, extremity weakness, extremity edema, rashes, urinary symptoms. Allergies Allergy/AdvReac Type Severity Reaction Status Date / Time No Known Allergies Allergy Verified 01/25/18 07:24 Home Medications Home Medications Medication Instructions Recorded Confirmed Type atorvastatin [Lipitor] 10 mg PO DAILY 10/16/17 02/13/18 History lorazepam [Ativan] 0.5 mg PO Q8 PRN 10/16/17 02/13/18 History pregabalin [Lyrica] 100 mg PO BID 10/16/17 02/13/18 History ranitidine HCl [Zantac] 150 mg PO BID 10/16/17 02/13/18 History umeclidinium-vilanterol [Anoro 1 inh INHALATION DAILY 10/16/17 02/13/18 History Ellipta] acetaminophen [Tylenol Extra 1,000 mg PO Q6H PRN #60 tab 10/21/17 02/13/18 Rx Strength] levalbuterol HCl 1.25 mg INHALATION QID PRN 02/13/18 02/13/18 History Past Med/Surg History Medical History Anxiety (Chronic) HLD (hyperlipidemia) (Chronic) Hypertension (Chronic) Thoracic spinal stenosis (Chronic) Diaphragmatic hernia (Chronic) GERD (gastroesophageal reflux disease) (Chronic) Neuropathy (Chronic) COPD, moderate (Chronic) "LAST PFT -08/30/11" Tobacco use (Chronic) GERD (gastroesophageal reflux disease) (Acute) High cholesterol (Acute) History of broken leg (Acute) Neuropathy (Acute) TAYLOR (obstructive sleep apnea) (Acute) COPD (chronic obstructive pulmonary disease) Lung abscess Pneumothorax Surgical History History of repair of rotator cuff (Resolved) [facility] " H/O exploratory thoracotomy (Resolved) "Left thoracotomy wedge biopsy of left upper lobe with excision of lesion or nodule & frozen section 2002" H/O elbow surgery (Resolved) H/O elbow surgery (Acute) H/O exploratory thoracotomy (Acute) H/O hernia repair (Acute) History of total replacement of both shoulder joints (Acute) Social History Current Living Situation: Spouse Feels Safe at Home: Yes Smoking Status: Current every day smoker Tobacco Type: cigarettes Second Hand Exposure: No Hx Alcohol Use: No Hx Substance Use: No Beliefs That Will Affect Care: None Preferred Language: Moldovan Review of Systems All systems reviewed & are unremarkable except as noted in HPI & below Physical Exam 2 Vital Signs (Past 24 Hours): Last Vital Signs Temp 36.3 C L 02/13/18 16:34 Pulse 96 H 02/13/18 18:21 Resp 22 02/13/18 18:21 BP 108/75 02/13/18 18:21 Pulse Ox 94 02/13/18 18:21 Physical Exam: General: mild respiratory distress, WDWN Head: normocephalic, atraumatic Eyes: PERRL, EOM's intact, conjunctiva non-injected, anicteric ENT: normal inspection external ears, nose, mucous membranes mildly dry Neck: supple, trachea midline, non-tender Lungs: tachypneic - 24, no retractions, diminished throughout with wheezing, prolonged expiration CV: RRR, no murmur, no pretibial edema Abd: normal BS, soft, non-tender Ext: no cyanosis, no calf tenderness Neuro: A&O x 3, no focal deficits noted, normal affect Skin: warm, dry Results & Data Laboratory Results Short CBC 02/13/18 Range/Units 17:00 WBC 14.02 H (4.8-10.8) K/uL Hgb 15.9 (14.0-18.0) g/dL Hct 45.8 (42-52) % Plt Count 241 (130-400) K/uL BMP 02/13/18 17:00 Sodium 138 Potassium 3.7 Chloride 107 Carbon Dioxide 24 BUN 18 Creatinine 1.04 Glucose 101 H Calcium 9.1 Cardiac Enzymes 02/13/18 Range/Units 17:00 Troponin I < 0.015 (0-0.045) ng/ml Liver Function 02/13/18 Range/Units 17:00 Total Bilirubin 0.2 (0.2-1) mg/dl AST 39 H (15-37) U/L ALT 64 (12-78) U/L Alkaline Phosphatase 87 (45-117) U/L Albumin 3.8 (3.4-5.0) gm/dl Diagnostic Findings CXR: IMPRESSION: 1. No acute process. 2. Chronic interstitial coarsening with unchanged left perihilar and left lung base atelectasis/scarring. 3. Chronic blunting of the left costophrenic angle, also likely secondary to scarring/atelectasis. ECG Rate (beats per minute): 92 Rhythm: sinus rhythm Supervising Physician Co-Signing Physician Notes I saw this patient with the physician dietetic assistant, I participated in the history, physical, review of systems, and physical exam. I reviewed the medications with the patient and the physician dietetic assistant and helped reconcile the medications. I helped take a detailed family and social history as well. I formulated the assessment and plan personally with the physician dietetic assistant and went over it with the patient.
[2018-02-13] MEDS ORDERED: LEVOFLOXACIN/D5W 750 MG/150 ML BAG IV STA (20:20)
[2018-02-13] MEDS ORDERED: ACETAMINOPHEN 325 MG TAB PO PRN (20:54)
[2018-02-13] MEDS ORDERED: XOPENEX/ATROVENT 1.25mg/0.5MG NEB COMBO NEB SCH (20:54)
[2018-02-13] MEDS ORDERED: XOPENEX/ATROVENT 0.63mg/0.5MG NEB COMBO NEB PRN (20:54)
[2018-02-13] MEDS ORDERED: LORazepam 0.5 MG TAB PO PRN (20:54)
[2018-02-13] MEDS ORDERED: LEVALBUTEROL HCL 0.63 MG/3 ML NEB NEB PRN (20:54)
[2018-02-13] MEDS ORDERED: IPRATROPIUM BROMIDE NEB SOLN 0.02% 2.5 ML VIAL INH PRN (20:54)
[2018-02-13] MEDS: cefTRIAXone SODIUM 1,000 MG in DEXTROSE 5% 50 ML IV SCH (21:23)
[2018-02-13] MEDS: PREGABALIN 100 MG CAP PO SCH (21:32)
[2018-02-13] MEDS: ENOXAPARIN INJ 40 MG/0.4 ML SYR SQ SCH (21:32)
[2018-02-14] MEDS: methylPREDNISolone 40 MG in SYRINGE 0 ML IV SCH ×3 (00:19→15:23)
[2018-02-14] MEDS: IPRATROPIUM BROMIDE NEB SOLN 0.02% 2.5 ML VIAL INH SCH ×5 (01:18→19:54)
[2018-02-14] MEDS: LEVALBUTEROL 1.25MG/0.5ML NEB INH SCH ×5 (01:18→19:54)
[2018-02-14 05:55] LABS: Basophils # (auto) 0.01 K/uL (0-0.2); Basophils % (auto) 0.1 %; Hematocrit (blood only) 43.1 % (42-52); Hemoglobin 14.9 g/dL (14.0-18.0); Immature Granulocytes # (auto) 0.02 K/uL (0.00-0.02); Immature Granulocytes % (auto) 0.2 %; Lymphocytes # (auto) 0.86 K/uL (1.2-3.4); Lymphocytes % (auto) 10.6 %; Mean Corpuscular Hgb Conc 34.6 g/dL (32-36); Mean Corpuscular Volume 93.7 fL (80-100); Mean Platelet Volume 11.1 fL (7.4-10.4); Monocytes # (auto) 0.17 K/uL (0.11-0.59); Monocytes % (auto) 2.1 %; Neutrophils # (auto) 7.06 K/uL (1.4-6.5); Platelet Count 224 K/uL (130-400); RDW Coefficient of Variation 15.2 % (11.5-14.5); RDW Standard Deviation 52.4 fL (36.4-46.3); White Blood Count 8.12 K/uL (4.8-10.8)
[2018-02-14 06:25] LABS: BUN Creatinine Ratio 17.5 (10-20); Calcium 8.6 mg/dl (8.5-10.1); Creatinine Clr Calc Pharmacy 74.1 ml/min; Est GFR (African American) 84.6
[2018-02-14] MEDS: ATORVASTATIN 10 MG TAB PO SCH (07:59)
[2018-02-14] MEDS: NICOTINE 21 MG/24 HR TDSY TD SCH (07:59)
[2018-02-14] MEDS: PREGABALIN 100 MG CAP PO SCH ×2 (08:05→20:28)
[2018-02-14] MEDS ORDERED: COUGH DROP (SUGAR FREE) LOZ 24 LOZ/1 BOX BUCCAL PRN (12:01)
[2018-02-14] MEDS: DOCUSATE SODIUM 100 MG CAP PO SCH ×2 (12:29→20:28)
--- NOTE | 2018-02-14 14:28 | Hospitalist Progress Note ---
Date of Service February 14, 2018 Assessment & Plan (1) COPD exacerbation: Last bronchoscopy on 01/25/[address] Reeder. 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 (2) GERD (gastroesophageal reflux disease): continue ranitidine (3) Anxiety: continue ativan prn (4) HLD (hyperlipidemia): continue atorvastatin (5) Tobacco use: nicotine patch DVT Px -Lovenox SQ Disoposition: Expect to discharge home when stable Subjective Patient is seen and examined at bedside Chest congestion and dyspnea improving Reports sore throat and some abdominal pain prior to BMs Denies any chest pain No other complaints Physical Exam 2 Vital Signs (Past 24 Hours): Last Vital Signs Temp 36.7 C 02/14/18 11:45 Pulse 80 02/14/18 14:06 Resp 14 02/14/18 14:06 BP 113/62 02/14/18 11:45 Pulse Ox 90 02/14/18 14:06 Physical Exam: Physical Exam: Vitals signs as noted above General Appearance:Moderately built and nourished, no apparent distress Head: normocephalic, Atraumatic Eyes: normal inspection, EOMI Neck: supple, Trachea midline Respiratory/Chest: Decreased breath sounds, +Expiratory Wheezes Cardiovascular: S1, S2, No murmur Abdomen/GI:Soft, Non tender, Bowel sounds present Extremities/Musculoskelatal:normal inspection, no edema Neurologic/Psych:AAOX3, grossly no focal neurological deficits Skin: normal color, warm Results & Data Laboratory Results Short CBC 02/13/18 02/14/18 Range/Units 17:00 05:30 WBC 14.02 H 8.12 (4.8-10.8) K/uL Hgb 15.9 14.9 (14.0-18.0) g/dL Hct 45.8 43.1 (42-52) % Plt Count 241 224 (130-400) K/uL BMP 02/13/18 02/14/18 17:00 05:30 Sodium 138 139 Potassium 3.7 4.0 Chloride 107 107 Carbon Dioxide 24 22 BUN 18 19 H Creatinine 1.04 1.07 Glucose 101 H 165 H Calcium 9.1 8.6 Cardiac Enzymes 02/13/18 Range/Units 17:00 Troponin I < 0.015 (0-0.045) ng/ml Liver Function 02/13/18 Range/Units 17:00 Total Bilirubin 0.2 (0.2-1) mg/dl AST 39 H (15-37) U/L ALT 64 (12-78) U/L Alkaline Phosphatase 87 (45-117) U/L Albumin 3.8 (3.4-5.0) gm/dl
--- NOTE | 2018-02-14 20:00 | Pulmonary Consultation ---
Date of Consultation February 14, 2018 Assessment & Plan (1) COPD exacerbation: Impression: 1. COPD, gold level 2, grade A. 2. Anxiety. 3. Active smoking. Plan: 1. Change steroids to prednisone 50 mg p.o. daily for 5 days then taper by 10 mg every other day. 2. Continue current bronchodilators. 3. Smoking cessation counseling. 4. Patient should be more adhered to his inhalers. 5. Arrange for outpatient appointment. 6. Perform 2 steps for home oxygen needs. 7. Discharge patient home. Thank you for your kind referral, will follow as needed. History of Present Illness Reason for Consultation: COPD. Requesting Physician: Dr. Law Attending Physician: Demetri Law MD History of Present Illness Dear Dr. Manriquez: Thank you for your kind referral of Mr. Franks to pulmonary service. This is a 62 -year-old gentleman with history of COPD, active smoker, recently was seen by Dr. Reeder and underwent a bronchoscopy, the patient presented to the hospital with feeling a lump in his throat according to him accompanied with increased wheezing and cough with sputum production, he denies any chest pain, no orthopnea no nocturnal symptoms, he does not use oxygen at home. The patient denies any fever or constitutional symptoms, no headache, no increased swelling in his lower extremities, the rest of his review of system including 14 systems was unremarkable. Past medical history significant for GERD, anxiety, hyperlipidemia and active smoking in addition to COPD gold level 2. Family history does not contribute to his current illness however he does have his children who visit him and all of them are smokers. The patient had more than [id number] history of smoking, he does not have industrial exposure in the past. Allergies Allergy/AdvReac Type Severity Reaction Status Date / Time No Known Allergies Allergy Verified 01/25/18 07:24 Home Medications Home Medications Medication Instructions Recorded Confirmed Type atorvastatin [Lipitor] 10 mg PO DAILY 10/16/17 02/13/18 History lorazepam [Ativan] 0.5 mg PO Q8 PRN 10/16/17 02/13/18 History pregabalin [Lyrica] 100 mg PO BID 10/16/17 02/13/18 History ranitidine HCl [Zantac] 150 mg PO BID 10/16/17 02/13/18 History umeclidinium-vilanterol [Anoro 1 inh INHALATION DAILY 10/16/17 02/13/18 History Ellipta] acetaminophen [Tylenol Extra 1,000 mg PO Q6H PRN #60 tab 10/21/17 02/13/18 Rx Strength] levalbuterol HCl 1.25 mg INHALATION QID PRN 02/13/18 02/13/18 History Patient History Medical History Anxiety (Chronic) HLD (hyperlipidemia) (Chronic) Hypertension (Chronic) Thoracic spinal stenosis (Chronic) Diaphragmatic hernia (Chronic) GERD (gastroesophageal reflux disease) (Chronic) Neuropathy (Chronic) COPD, moderate (Chronic) "LAST PFT -08/30/11" Tobacco use (Chronic) GERD (gastroesophageal reflux disease) (Acute) High cholesterol (Acute) History of broken leg (Acute) Neuropathy (Acute) TAYLOR (obstructive sleep apnea) (Acute) COPD (chronic obstructive pulmonary disease) Lung abscess Pneumothorax Surgical History History of repair of rotator cuff (Resolved) [facility] " H/O exploratory thoracotomy (Resolved) "Left thoracotomy wedge biopsy of left upper lobe with excision of lesion or nodule & frozen section 2002" H/O elbow surgery (Resolved) H/O elbow surgery (Acute) H/O exploratory thoracotomy (Acute) H/O hernia repair (Acute) History of total replacement of both shoulder joints (Acute) Family History Other Leukemia Stroke Social History Current Living Situation: Spouse Other Information That Helps Us Care for You: No Feels Safe at Home: No Is there a partner from a previous relationship who is making you feel unsafe now?: No Any Concerns about Your Family Situation: No Would You Like to Speak to Someone About Your Situation: No Smoking Status: Current every day smoker Tobacco Type: cigarettes Cigarettes per Day: 15 Do You Dip or Chew Tobacco: No Second Hand Exposure: Yes Tobacco Cessation Education Requested by Patient: No Hx Alcohol Use: No Hx Substance Use: No Beliefs That Will Affect Care: None Preferred Language: Persian Communication Ability: Effective Goat Herder 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 Physical Exam 2 Vital Signs (Past 24 Hours): Last Vital Signs Temp 37 C 02/14/18 19:36 Pulse 83 02/14/18 19:36 Resp 20 02/14/18 19:36 BP 105/56 L 02/14/18 19:36 Pulse Ox 93 02/14/18 19:36 Physical Exam: Vital signs are stable, S1-S2 regular rate and rhythm, lungs are clear, abdomen is benign, no edema. Results & Data Laboratory Results Labs were reviewed and are all acceptable. No bacteriology noted from recent bronchoscopy. Diagnostic Findings Chest x-ray without infiltrate. Noted COPD changes. Previous CAT scan of the chest also showed minimal volume loss on the left due to mucoid impaction. However this CAT scan was done prior to bronchoscopy.
[2018-02-14] MEDS: ENOXAPARIN INJ 40 MG/0.4 ML SYR SQ SCH (20:30)
[2018-02-14] MEDS: cefTRIAXone SODIUM 1,000 MG in DEXTROSE 5% 50 ML IV SCH (21:43)
--- NOTE | 2018-02-15 00:31 | Emergency Department Note ---
Entered by Marah Khan acting as a scribe for Francy Rushing DO History of Present Illness General Chief complaint: Respiratory Problems Stated complaint: Trouble breathing, heart condition Time Seen by Provider: 02/13/18 16:44 Source: patient History of Present Illness Onset (ago): day(s) 1 Location: left (Lung) and right (Lung) Severity: similar to prior episodes Pain Consistency: + other (Persistent) Maximum Pain Intensity: 4 Quality: + other (Shortness of breath) Relieved By: not by other (Nebulizer) Associated symptoms: + chest pain, + cough and + shortness of breath; no fever/ chills and no nausea/vomiting Treatments prior to arrival: other (Nebulizer) The patient is a 62 year old male who presents to the Emergency Room with complaints of persistent shortness of breath starting 1 day ago. The patient reports that he is severely short of breath and has intermittent chest pains. He states that he has a cough that is producing an oddly colored mucous. He notes that he has had respiratory problems before and has been admitted to the hospital for it. Patient states he has never been intubated, denies any prior requirement of BiPAP. He adds that he doesn�t normally use supplemental oxygen at home but does sometimes use a nebulizer. He reports that he used his nebulizer SUGAR COATING HAND that did not relieve his symptoms. He notes that he currently is not living with anybody who is sick and has had a flu shot recently. He denies fever, chills, nausea, vomiting and lower extremity edema. The patient adds that he normally smokes cigarettes. Home Medications Home Medications Medication Instructions Recorded Confirmed Type atorvastatin [Lipitor] 10 mg PO DAILY 10/16/17 02/13/18 History lorazepam [Ativan] 0.5 mg PO Q8 PRN 10/16/17 02/13/18 History pregabalin [Lyrica] 100 mg PO BID 10/16/17 02/13/18 History ranitidine HCl [Zantac] 150 mg PO BID 10/16/17 02/13/18 History umeclidinium-vilanterol [Anoro 1 inh INHALATION DAILY 10/16/17 02/13/18 History Ellipta] acetaminophen [Tylenol Extra 1,000 mg PO Q6H PRN #60 tab 10/21/17 02/13/18 Rx Strength] levalbuterol HCl 1.25 mg INHALATION QID PRN 02/13/18 02/13/18 History Allergies Allergy/AdvReac Type Severity Reaction Status Date / Time No Known Allergies Allergy Verified 01/25/18 07:24 Past Med/Surg History Medical History Anxiety (Chronic) HLD (hyperlipidemia) (Chronic) Hypertension (Chronic) Thoracic spinal stenosis (Chronic) Diaphragmatic hernia (Chronic) GERD (gastroesophageal reflux disease) (Chronic) Neuropathy (Chronic) COPD, moderate (Chronic) "LAST PFT -08/30/11" Tobacco use (Chronic) GERD (gastroesophageal reflux disease) (Acute) High cholesterol (Acute) History of broken leg (Acute) Neuropathy (Acute) TAYLOR (obstructive sleep apnea) (Acute) COPD (chronic obstructive pulmonary disease) Lung abscess Pneumothorax Surgical History History of repair of rotator cuff (Resolved) H/O hernia repair (Resolved) [facility] supraumbilical hernia repair open no mesh 02/17/01 " H/O exploratory thoracotomy (Resolved) "Left thoracotomy wedge biopsy of left upper lobe with excision of lesion or nodule & frozen section 2002" H/O elbow surgery (Resolved) H/O elbow surgery (Acute) H/O exploratory thoracotomy (Acute) H/O hernia repair (Acute) History of total replacement of both shoulder joints (Acute) Family History Other Leukemia Stroke Social History Current Living Situation: Spouse Other Information That Helps Us Care for You: No Feels Safe at Home: No Is there a partner from a previous relationship who is making you feel unsafe now?: No Any Concerns about Your Family Situation: No Would You Like to Speak to Someone About Your Situation: No Smoking Status: Current every day smoker Tobacco Type: cigarettes Cigarettes per Day: 15 Do You Dip or Chew Tobacco: No Second Hand Exposure: Yes Tobacco Cessation Education Requested by Patient: No Hx Alcohol Use: No Hx Substance Use: No Beliefs That Will Affect Care: None Preferred Language: Citizen Of The [place] Communication Ability: Effective Exchange Operator Required: No Review of Systems See HPI for pertinent positives & negatives. and A total of 10 systems reviewed and were otherwise negative Physical Exam Vital Signs Vital Signs - 24 hr 02/14/18 01:00 02/14/18 01:50 02/14/18 04:32 Temperature 36.9 C Temperature Source Oral Pulse Rate 93 H Pulse Rate [Right Finger] 71 80 Respiratory Rate 16 20 Respiratory Effort / Characteristics Non-Labored Non-Labored Spontaneous Respiratory Depth Normal Respiratory Pattern Regular Blood Pressure [Right Arm] 108/62 Blood Pressure Mean [Right Arm] 77 Blood Pressure Position [Right Arm] Lying Pulse Oximetry 98 93 Oxygen Delivery Method Nasal Cannula Nasal Cannula Nasal Cannula Oxygen Flow Rate 2 2 2 02/14/18 07:13 02/14/18 07:21 02/14/18 07:22 Temperature 36.5 C 36.5 C Temperature Source Oral Oral Pulse Rate Pulse Rate [Right Finger] 78 71 71 Respiratory Rate 14 18 18 Respiratory Effort / Characteristics Spontaneous Respiratory Depth Respiratory Pattern Blood Pressure [Right Arm] 127/76 127/76 Blood Pressure Mean [Right Arm] 93 93 Blood Pressure Position [Right Arm] Pulse Oximetry 95 93 93 Oxygen Delivery Method Nasal Cannula Room Air Room Air Oxygen Flow Rate 2 02/14/18 07:33 02/14/18 11:45 02/14/18 14:06 Temperature 36.7 C Temperature Source Oral Pulse Rate 78 Pulse Rate [Right Finger] 86 80 Respiratory Rate 18 14 Respiratory Effort / Characteristics Spontaneous Respiratory Depth Respiratory Pattern Blood Pressure [Right Arm] 113/62 Blood Pressure Mean [Right Arm] 79 Blood Pressure Position [Right Arm] Pulse Oximetry 90 90 Oxygen Delivery Method Nasal Cannula Nasal Cannula Room Air Oxygen Flow Rate 2 2 02/14/18 15:00 02/14/18 15:21 02/14/18 19:36 Temperature 36.8 C 37 C Temperature Source Oral Oral Pulse Rate Pulse Rate [Right Finger] 89 83 Respiratory Rate 20 20 Respiratory Effort / Characteristics Respiratory Depth Respiratory Pattern Blood Pressure [Right Arm] 111/62 105/56 L Blood Pressure Mean [Right Arm] 78 72 Blood Pressure Position [Right Arm] Lying Lying Pulse Oximetry 92 93 Oxygen Delivery Method Room Air Room Air Room Air Oxygen Flow Rate 02/14/18 19:54 02/15/18 00:02 Temperature 37.1 C Temperature Source Oral Pulse Rate Pulse Rate [Right Finger] 82 90 Respiratory Rate 16 20 Respiratory Effort / Characteristics Non-Labored Respiratory Depth Respiratory Pattern Blood Pressure [Right Arm] 110/64 Blood Pressure Mean [Right Arm] 79 Blood Pressure Position [Right Arm] Pulse Oximetry 93 92 Oxygen Delivery Method Room Air Room Air Oxygen Flow Rate GENERAL: alert, well appearing, well nourished, no distress, non-toxic EYE EXAM: normal conjunctiva, PERRL and EOM's grossly intact OROPHARYNX: no exudate, no erythema, lips, buccal mucosa, and tongue normal and mucous membranes are dry, staining of cigarette smoke. NECK: supple, no nuchal rigidity, no adenopathy, non-tender LUNGS: Clear to auscultation. Diminished breath sounds bilaterally, faint scattered expiratory wheezes, increased work of breathing, tachypnea, pursed lip breathing. HEART: no murmurs, S1 normal and S2 normal ABDOMEN: abdomen soft, non-tender, normo-active bowel sounds, no masses, no rebound or guarding. BACK: Back is symmetrical on inspection and there is no deformity, no midline tenderness, no CVA tenderness. SKIN: no rashes and no bruising UPPER EXTREMITIES: upper extremities are grossly normal. FROM, nml pulses b/l. LOWER EXTREMITIES: No pitting edema. FROM, nml pulses b/l. NEURO EXAM: Normal sensorium, cranial nerves II-XII grossly intact, normal speech, no gross weakness of arms, no gross weakness of legs. Course 164: Past medical records reviewed. The patient was evaluated in room C1A, and a complete history and physical examination were performed. 1724: I reevaluated the patient at this time and performed a repeat lung exam in which his wheezing was more apparent. Patient and state that he had had a bronchoscopy [address] Reeder and following that had increased cough and difficulty breathing so was placed on doxycycline and a prednisone taper which he just completed on Tuesday. Patient states that despite these medications as well as completing the course, his symptoms worsened over the weekend. 1800: I reevaluated the patient at this time and discussed possible admission. 1824: I reviewed the patient's case with Christina Collins � [facility] internal medicine [facility]. She will evaluate the patient for further management. Administered Medications Atorvastatin Calcium (Lipitor) 10 mg PO DAILY YUN Stop: 03/16/18 08:59 Last Admin: 02/14/18 07:59 Dose: 10 mg Docusate Sodium (Colace) 100 mg PO BID [facility] Stop: 03/16/18 12:14 Last Admin: 02/14/18 20:28 Dose: 100 mg Admin: 02/14/18 12:29 Dose: 100 mg Enoxaparin Sodium (Lovenox) 40 mg SQ Q24H [facility] Stop: 03/15/18 21:59 Last Admin: 02/14/18 20:30 Dose: Not Given Admin: 02/13/18 21:32 Dose: Not Given Ceftriaxone Sodium 1,000 mg/ (Dextrose) 60 mls @ 100 mls/hr IV DAILY@2200 [facility]; Protocol Stop: 02/20/18 21:59 Last Infusion: 02/14/18 22:19 Dose: 0 mls/hr Admin: 02/14/18 21:43 Dose: 100 mls/hr Infusion: 02/13/18 21:59 Dose: 0 mls/hr Admin: 02/13/18 21:23 Dose: 100 mls/hr Ipratropium [place] (Atrovent 0.02% 0.5mg/2.5ml) 0.5 mg INH Q6R [facility] Stop: 03/15/18 20:53 Last Admin: 02/14/18 19:54 Dose: 0.5 mg Admin: 02/14/18 14:06 Dose: 0.5 mg Admin: 02/14/18 07:13 Dose: 0.5 mg Admin: 02/14/18 01:49 Dose: 0.5 mg Admin: 02/14/18 01:18 Dose: Not Given Levalbuterol HCl (Xopenex 1.25mg/0.5ml Neb) 1.25 mg INH Q6R [facility] Stop: 03/15/18 20:53 Last Admin: 02/14/18 19:54 Dose: 1.25 mg Admin: 02/14/18 14:06 Dose: 1.25 mg Admin: 02/14/18 07:13 Dose: 1.25 mg Admin: 02/14/18 01:49 Dose: 1.25 mg Admin: 02/14/18 01:18 Dose: Not Given Menthol (Nice) 1 durga BUCCAL Q1H PRN PRN Reason: Sore Throat Stop: 03/16/18 12:00 Last Admin: 02/14/18 12:38 Dose: 1 durga Miscellaneous (Remove Nicoderm Patch) 1 ea N/A HS [facility] Stop: 03/16/18 20:59 Last Admin: 02/14/18 20:29 Dose: Not Given Nicotine (Nicoderm Cq) 21 mg TD QAM YUN Stop: 03/16/18 08:59 Last Admin: 02/14/18 07:59 Dose: Not Given Pregabalin (Lyrica) 100 mg PO BID YUN Stop: 03/15/18 20:59 Last Admin: 02/14/18 20:28 Dose: 100 mg Admin: 02/14/18 08:05 Dose: 100 mg Admin: 02/13/18 21:32 Dose: 100 mg Ranitidine HCl (Zantac) 150 mg PO BID YUN Stop: 03/15/18 20:59 Last Admin: 02/14/18 20:28 Dose: 150 mg Admin: 02/14/18 07:59 Dose: 150 mg Admin: 02/13/18 21:32 Dose: 150 mg Discontinued Medications Albuterol (Duoneb) 3 ml NEB NOW STA Stop: 02/13/18 16:51 Last Admin: 02/13/18 17:03 Dose: 3 ml Albuterol (Duoneb) 3 ml NEB NOW STA Stop: 02/13/18 17:36 Last Admin: 02/13/18 17:39 Dose: 3 ml Albuterol (Duoneb) 3 ml NEB NOW STA Stop: 02/13/18 18:23 Last Admin: 02/13/18 18:34 Dose: 3 ml Magnesium Sulfate/Dextrose (Magnesium Sulfate / D5w) 1 gm in 100 mls @ 100 mls/ hr IV ONE ONE Stop: 02/13/18 17:49 Last Infusion: 02/13/18 18:33 Dose: 0 mls/hr Admin: 02/13/18 17:03 Dose: 100 mls/hr Sodium Chloride (Nss 1000ml) 1,000 mls @ 125 mls/hr IV .Q8H YUN Stop: 03/15/18 16:59 Last Admin: 02/13/18 17:04 Dose: 125 mls/hr Levofloxacin/Dextrose (Levaquin/D5w) 750 mg in 150 mls @ 100 mls/hr IV NOW STA Stop: 02/13/18 21:49 Last Infusion: 02/13/18 22:50 Dose: 0 mls/hr Admin: 02/13/18 21:20 Dose: 100 mls/hr Sodium Chloride (Nss 1000ml) 1,000 mls @ 80 mls/hr IV .[id number] YUN Stop: 02/14/18 09:23 Last Infusion: 02/14/18 09:50 Dose: 0 mls/hr Admin: 02/13/18 21:18 Dose: 80 mls/hr Methylprednisolone 40 mg/ (Syringe) 0.64 mls @ 1.5 mls/min IV Q8H YUN Stop: 03/16/18 00:00 Last Admin: 02/14/18 15:23 Dose: 1.5 mls/min Admin: 02/14/18 07:58 Dose: 1.5 mls/min Admin: 02/14/18 00:19 Dose: 1.5 mls/min Methylprednisolone (Solumedrol) 125 mg IV NOW STA Stop: 02/13/18 16:51 Last Admin: 02/13/18 17:04 Dose: 125 mg Medical Decision Making Differential Diagnosis Differential diagnosis: Etiologies such as infections, reactive airway disease, COPD, pneumonia, pleural effusion, pulmonary edema, ARDS, pneumothorax, CHF, cardiac ischemia, cardiac tamponade, dysrhythmia, anemia, pulmonary embolism, musculoskeletal, gastrointestinal process, as well as others were entertained. Medical Records Attestation: I reviewed the patient's medical records. Home Medications Current Medication List: was personally reviewed by me Laboratory Data Attestation: I reviewed the patient's lab results. Result diagrams: 02/14/18 05:30 02/14/18 05:30 Lab Results 02/13/18 02/13/18 02/13/18 Range/Units 17:00 17:00 17:00 WBC 14.02 H (4.8-10.8) K/uL RBC 4.92 (4.7-6.1) M/uL Hgb 15.9 (14.0-18.0) g/dL Hct 45.8 (42-52) % MCV 93.1 (80-100) fL MCH 32.3 (25-34) pg MCHC 34.7 (32-36) g/dL RDW Std Deviation 50.9 H (36.4-46.3) fL RDW Coeff of Jaz 15.0 H (11.5-14.5) % Plt Count 241 (130-400) K/uL MPV 10.9 H (7.4-10.4) fL Immature Gran % (Auto) 0.3 % Neut % (Auto) 63.5 % Lymph % (Auto) 22.8 % [place] % (Auto) 11.4 % Eos % (Auto) 1.8 % Baso % (Auto) 0.2 % Immature Gran # (Auto) 0.04 H (0.00-0.02) K/uL Neut # (Auto) 8.90 H (1.4-6.5) K/uL Lymph # (Auto) 3.20 (1.2-3.4) K/uL [place] # (Auto) 1.60 H (0.11-0.59) K/uL Eos # (Auto) 0.25 (0-0.5) K/uL Baso # (Auto) 0.03 (0-0.2) K/uL D-Dimer 450 (0-500) ug/L FEU Sodium 138 (136-145) mmol/L Potassium 3.7 (3.5-5.1) mmol/L Chloride 107 (98-107) mmol/L Carbon Dioxide 24 (21-32) mmol/L Anion Gap 8.0 (3-11) BUN 18 (7-18) mg/dl Creatinine 1.04 (0.6-1.4) mg/dl Est Cr Clr Drug Dosing 76.4 ml/min Est GFR ( Amer) 87.5 Est GFR (Non-Af Amer) 75.5 BUN/Creatinine Ratio 17.0 (10-20) Glucose 101 H (70-99) mg/dl Calcium 9.1 (8.5-10.1) mg/dl Magnesium 2.4 (1.8-2.4) mg/dl Total Bilirubin 0.2 (0.2-1) mg/dl AST 39 H (15-37) U/L ALT 64 (12-78) U/L Alkaline Phosphatase 87 (45-117) U/L Troponin I < 0.015 (0-0.045) ng/ml NT-Pro-B Natriuret Pep 51 (0-900) pg/ml Total Protein 7.2 (6.4-8.2) gm/dl Albumin 3.8 (3.4-5.0) gm/dl Globulin 3.4 (2.5-4.0) gm/dl Albumin/Globulin Ratio 1.1 (0.9-2) Lipase 110 (73-393) U/L 02/14/18 02/14/18 Range/Units 05:30 05:30 WBC 8.12 (4.8-10.8) K/uL RBC 4.60 L (4.7-6.1) M/uL Hgb 14.9 (14.0-18.0) g/dL Hct 43.1 (42-52) % MCV 93.7 (80-100) fL MCH 32.4 (25-34) pg MCHC 34.6 (32-36) g/dL RDW Std Deviation 52.4 H (36.4-46.3) fL RDW Coeff of Jaz 15.2 H (11.5-14.5) % Plt Count 224 (130-400) K/uL MPV 11.1 H (7.4-10.4) fL Immature Gran % (Auto) 0.2 % Neut % (Auto) 87.0 % Lymph % (Auto) 10.6 % [place] % (Auto) 2.1 % Eos % (Auto) 0.0 % Baso % (Auto) 0.1 % Immature Gran # (Auto) 0.02 (0.00-0.02) K/uL Neut # (Auto) 7.06 H (1.4-6.5) K/uL Lymph # (Auto) 0.86 L (1.2-3.4) K/uL [place] # (Auto) 0.17 (0.11-0.59) K/uL Eos # (Auto) 0.00 (0-0.5) K/uL Baso # (Auto) 0.01 (0-0.2) K/uL D-Dimer (0-500) ug/L FEU Sodium 139 (136-145) mmol/L Potassium 4.0 (3.5-5.1) mmol/L Chloride 107 (98-107) mmol/L Carbon Dioxide 22 (21-32) mmol/L Anion Gap 10.0 (3-11) BUN 19 H (7-18) mg/dl Creatinine 1.07 (0.6-1.4) mg/dl Est Cr Clr Drug Dosing 74.1 ml/min Est GFR ( Amer) 84.6 Est GFR (Non-Af Amer) 73.0 BUN/Creatinine Ratio 17.5 (10-20) Glucose 165 H (70-99) mg/dl Calcium 8.6 (8.5-10.1) mg/dl Magnesium (1.8-2.4) mg/dl Total Bilirubin (0.2-1) mg/dl AST (15-37) U/L ALT (12-78) U/L Alkaline Phosphatase (45-117) U/L Troponin I (0-0.045) ng/ml NT-Pro-B Natriuret Pep (0-900) pg/ml Total Protein (6.4-8.2) gm/dl Albumin (3.4-5.0) gm/dl Globulin (2.5-4.0) gm/dl Albumin/Globulin Ratio (0.9-2) Lipase (73-393) U/L Imaging Data Radiologist's Impression: Radiology results as stated below per my review and the radiologist's interpretation: XR chest 1V portable HISTORY: 62 years-old Male sob, chest pain acute shortness of breath with atypical chest pain COMPARISON: Chest radiograph 12/13/2017 TECHNIQUE: Portable AP view of the chest FINDINGS: Cardiomediastinal and hilar silhouettes are unchanged. Calcification of the thoracic aortic arch. Chronic blunting of the left costophrenic angle. Chronic interstitial coarsening without pneumothorax, large pleural effusion or overt pulmonary edema. Subsegmental left basilar opacities suggest atelectasis/ scarring. Left shoulder arthroplasty. ORIF changes of the right humerus with remote fracture. Of degenerative changes of the right shoulder and spine. IMPRESSION: 1. No acute process. 2. Chronic interstitial coarsening with unchanged left perihilar and left lung base atelectasis/scarring. 3. Chronic blunting of the left costophrenic angle, also likely secondary to scarring/atelectasis. The above report was generated using voice recognition software. It may contain grammatical, syntax or spelling errors. Electronically signed by: Gualberto Mata M.D. 02/13/2018 5:36 PM ECG Data Attestation: I personally reviewed and interpreted this ECG as follows: Indication: SOB/dyspnea Rate (beats per minute): 92 Rhythm: sinus rhythm Findings: + other (Normal axis and interval.); no acute ischemic change and no ectopy Blood Pressure Blood Pressure Findings: Normal blood pressure Blood Pressure Disposition: further management by hospitalist BERRY Narrative Patient here with persistent difficulty breathing despite nebulizer treatments at home. Patient with long-standing history of COPD and continued smoking. Patient did recently undergo bronchoscopy by Dr. Reyes and was on an outpatient course of prednisone as well as doxycycline. Patient states his symptoms worsen despite this. Given concern for persistent symptoms despite nebulizer treatments here, IV magnesium, and IV Solu-Medrol, I discussed with patient possible need for inpatient evaluation. He was in agreement with plan. No evidence of acute cardiac pathology including ACS or CHF contributing to his difficulty breathing. No evidence of pneumonia or pleural effusion on chest x-ray. Given persistent symptoms, IV Levaquin was added to, patient's QTC is normal. Case discussed with hospitalist for additional evaluation and management. Patient not overtly hypoxic while emergency room, however due to dyspnea and increased work of breathing, patient placed on oxygen for comfort which patient did report helped. Patient was tachypneic throughout with mild pursed lip breathing. Did discuss with patient that given recent bronchoscopy and persistent symptoms, he may need additional imaging or pulmonary evaluation. Impression & Plan Dyspnea, COPD exacerbation Discharge Plan Visit Data *Final* Discharge Date/Time: 02/13/18 20:20 Chief Complaint: Respiratory Problems Stated Complaint: Trouble breathing, heart condition ED Provider: Francy Rushing Discharge Problem: Dyspnea, COPD exacerbation Patient Disposition: Admitted As Inpatient Discharge Instructions Interventions: ED Discharge Assessment Last Done: 02/13/18 20:20 The scribe's documentation has been prepared under my direction and personally reviewed by me in its entirety. I confirm that the note above accurately reflects all work, treatment, procedures, and medical decision making performed by me.
[2018-02-15] MEDS: LEVALBUTEROL 1.25MG/0.5ML NEB INH SCH ×2 (01:53→07:19)
[2018-02-15] MEDS: IPRATROPIUM BROMIDE NEB SOLN 0.02% 2.5 ML VIAL INH SCH ×2 (01:53→07:19)
[2018-02-15 06:31] LABS: BUN Creatinine Ratio 20.8 (10-20); Calcium 8.8 mg/dl (8.5-10.1); Creatinine Clr Calc Pharmacy 83.1 ml/min; Est GFR (African American) 96.4; Est GFR (Non-African American) 83.2; Magnesium 2.6 mg/dl (1.8-2.4)
[2018-02-15] MEDS: ATORVASTATIN 10 MG TAB PO SCH (08:05)
[2018-02-15] MEDS: NICOTINE 21 MG/24 HR TDSY TD SCH (08:05)
[2018-02-15] MEDS: DOCUSATE SODIUM 100 MG CAP PO SCH (08:05)
[2018-02-15] MEDS: PREGABALIN 100 MG CAP PO SCH (08:11)
[2018-02-15] MEDS ORDERED: predniSONE 50 MG TAB PO SCH (09:00)
--- NOTE | 2018-02-15 11:49 | Hospitalist Progress Note ---
Date of Service February 15, 2018 Assessment & Plan (1) COPD exacerbation: Last bronchoscopy on 01/25/[address] Reeder. Failed outpatient therapy with doxycycline and steroid taper last week CXR: No acute process Continue solu medrol, Nebs, Abx, Oxygen support as needed Appreciate Pulmonology [employer] smoking cessation 2 Step: did not qualify for oxygen Plan to discharge on Prednisone Taper (2) GERD (gastroesophageal reflux disease): continue ranitidine (3) Anxiety: continue ativan prn (4) HLD (hyperlipidemia): continue atorvastatin (5) Tobacco use: nicotine patch DVT Px -Lovenox SQ Disoposition: Expect to discharge home when stable Subjective Patient is seen and examined at bedside Doing well today Less Chest congestion and dyspnea Eager to get discharged Had 2 step: did not qualify for oxygen Denies any chest pain No other complaints Family at bedside Counseled to quit smoking Physical Exam 2 Vital Signs (Past 24 Hours): Last Vital Signs Temp 37.0 C 02/15/18 11:35 Pulse 73 02/15/18 11:35 Resp 18 02/15/18 11:35 BP 103/60 02/15/18 11:35 Pulse Ox 93 02/15/18 11:35 Physical Exam: Physical Exam: Vitals signs as noted above General Appearance:Moderately built and nourished, no apparent distress Head: normocephalic, Atraumatic Eyes: normal inspection, EOMI Neck: supple, Trachea midline Respiratory/Chest: Decreased breath sounds, CTA Cardiovascular: S1, S2, No murmur Abdomen/GI:Soft, Non tender, Bowel sounds present Extremities/Musculoskelatal:normal inspection, no edema Neurologic/Psych:AAOX3, grossly no focal neurological deficits Skin: normal color, warm Results & Data Laboratory Results [facility] 02/15/18 05:29 Sodium 139 Potassium 4.0 Chloride 109 H Carbon Dioxide 24 BUN 20 H Creatinine 0.96 Glucose 139 H Calcium 8.8
[2018-02-15] MEDS ORDERED: POLYETHYLENE (MIRALAX) 17 GM PACK PO PRN (12:02)
--- NOTE | 2018-02-15 12:06 | Discharge Summary ---
Date of Service February 15, 2018 Admission HPI Per Admitting Provider Pt is 62 y/o M with PMH COPD, HTN, HLD, tobacco use, GERD presented to ER with complaint of increased shortness of breath. History of bronchoscopy on by Dr. Reeder. Patient states since procedure has had increased cough and increased sputum production. Reports green color sputum.Reports increased shortness of breath, wheezing, chest tightness. Follows with [facility] for pulmonology. Reports was called in doxycycline and steroid taper which he finished last week without any improvements. Denies ill contacts. Denies hemoptysis. Denies fever/chills, diaphoresis, N/V/D/C, GUTIERREZ, dizziness, syncope, vision changes, neck pain, CP, orthopnea, palpitations, hemoptysis, sore throat , choking, otalgia, rhinorrhea, abdominal pain, paresthesias, weakness, extremity weakness, extremity edema, rashes, urinary symptoms. Admission Exam Per Admitting Provider General: mild respiratory distress, WDWN Head: normocephalic, atraumatic Eyes: PERRL, EOM's intact, conjunctiva non-injected, anicteric ENT: normal inspection external ears, nose, mucous membranes mildly dry Neck: supple, trachea midline, non-tender Lungs: tachypneic - 24, no retractions, diminished throughout with wheezing, prolonged expiration CV: RRR, no murmur, no pretibial edema Abd: normal BS, soft, non-tender Ext: no cyanosis, no calf tenderness Neuro: A&O x 3, no focal deficits noted, normal affect Skin: warm, dry Principal Diagnosis Discharge Information Discharge Diagnosis Acute COPD Exacerbation Discharge Goals Decrease discomfort,Improve disease control, Improve function Discharge Activity Limitations Resume your previous activity Discharge Data Allergies Allergy/AdvReac Type Severity Reaction Status Date / Time No Known Allergies Allergy Verified 01/25/18 07:24 Consultations 02/13/18 18:27 ED Decision to Admit Stat 02/13/18 20:54 Consult Pulmonology Routine Procedures Performed CXR: 1. No acute process. 2. Chronic interstitial coarsening with unchanged left perihilar and left lung base atelectasis/scarring. 3. Chronic blunting of the left costophrenic angle, also likely secondary to scarring/atelectasis. Hospital Course (1) COPD exacerbation: Last bronchoscopy on 01/25/[address] Reeder. 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 2 Step: did not qualify for oxygen Plan to discharge on Prednisone Taper (2) GERD (gastroesophageal reflux disease): continue ranitidine (3) Anxiety: continue ativan prn (4) HLD (hyperlipidemia): continue atorvastatin (5) Tobacco use: nicotine patch DVT Px -Lovenox SQ Disoposition: Expect to discharge home when stable Total Time Total Time Spent Total Time Spent (In Minutes): 37 minutes Total Time Includes: Examination of the Patient, Discharge Planning, Medication Reconciliation, Communication With Other Providers and Other Discharge Plan Discharge Items Patient Disposition: Home - Self-Care Reason For Visit: SOPD EXACERBATION Discharge Diagnosis: Acute COPD Exacerbation Discharge Goals: Decrease discomfort, Improve disease control and Improve function Activity: Resume your previous activity Exercise/Sports: Gradually increase as tolerated Non-emergency contact: Primary Care Provider and Hospitalist Call non-emergency contact if: you have any medication questions, your symptoms worsen, your pain is not controlled, your pain is worsening, your pain is unusual for you and you have a fever Diet: Heart Healthy Addtl Provider Instructions: Follow up with your PCP on 02/22/18 at 11:00AM Follow up with your Pulmnologist in 2-4 weeks Complete the prednsione and antibiotic course as prescribed Seek immediate medical attention if your symptoms reoccur or worsen Quit smoking Tobacco as advised Prednisone Course: Start taking prednisone 50mg daily for 5 days, then 40mg for 2 days, then 30mg for 2 days, then 20mg for 2 days, then 10mg for 2 days and stop Prescriptions: New docusate sodium 100 mg Capsule 100 mg PO BID 30 Days Qty: 60 RF: 0 cefuroxime axetil 250 mg tablet 250 mg PO BID 5 Days Qty: 10 RF: 0 prednisone 20 mg tablet 20 mg PO UD 14 Days Qty: 18 RF: 0 prednisone 10 mg tablet 10 mg PO UD 14 Days Qty: 14 RF: 0 polyethylene glycol 3350 [Miralax] 17 gram Powder In Packet 17 g PO DAILY PRN (Reason: constipation) 14 Days Qty: 14 RF: 0 Continue atorvastatin [Lipitor] 10 mg Tablet 10 mg PO DAILY RF: 0 lorazepam [Ativan] 0.5 mg Tablet 0.5 mg PO Q8 PRN (Reason: Anxiety) RF: 0 ranitidine HCl [Zantac] 150 mg Tablet 150 mg PO BID RF: 0 pregabalin [Lyrica] 100 mg Capsule 100 mg PO BID RF: 0 umeclidinium-vilanterol [Anoro Ellipta] 62.5-25 mcg/actuation Blister With Device 1 inh INHALATION DAILY RF: 0 acetaminophen [Tylenol Extra Strength] 500 mg tablet 1,000 mg PO Q6H PRN (Reason: pain, moderate) Qty: 60 RF: 0 levalbuterol HCl 1.25 mg/0.5 mL Solution For Nebulization 1.25 mg INHALATION QID PRN (Reason: Shortness Of Breath Or Wheezing) RF: 0 Visit Report Forms: [facility] Portal Stand-Alone Forms: [facility] Discharge Orders: Discharge Order (Routine); Ordered 02/15/18 Ordered By: Demetri Law Admission Data Admit Date/Time: 02/13/18 19:21 Attending Provider: Anthony Taylor Admit Provider: Nicolás Goldberg Primary Care Provider: Marie Weaver Other Providers: Nicolás Goldberg ; Vicente Sage ; Demetri Law Service: Telemetry Other Interventions: Discharge Summary Assessment (RN) Last Done: 02/15/18 12:07 Pending Studies at Discharge: No
== END 2018-02-15 13:33 | disposition home or self-care (01) | DRG 192 ==
LOC: ED 16:26 → 2N 19:21 → SUATTDRO 19:21 → 2N 20:20

== ENCOUNTER 2018-07-02 21:15 | Inpatient (IN) ==
--- OUTSIDE RECORDS SUMMARY | 2018-07-02 21:17 | External Medical Summary | Continuity of Care Document ---
:1955 Author Name Zaynab Soler, Provider Address Unavailable Unavailable , Care Team Providers Name Role Phone Unavailable Unavailable Unavailable Paulette ARREOLA, [facility] Unavailable [email or web address] History of pulmonary emphysema (V12.69) (Z87.09) Visit for pre-operative examination (V72.84) (Z01.818) Carpal tunnel syndrome of left wrist (354.0) (G56.02) Cervical radiculopathy (723.4) (M54.12) Post-nasal discharge (473.9) (R09.82) Hypertrophy of nasal turbinates (478.0) (J34.3) Pharyngitis (462) (J02.9) Oral thrush (112.0) (B37.0) Sinus tachycardia (427.89) (R00.0) Pulmonary emboli (415.19) (I26.99) Solitary pulmonary nodule (793.11) (R91.1) 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) Hyperlipidemia (272.4) (E78.5) Chronic back pain (724.5) (M54.9) Hypertension (401.9) (I10) Arthritis (716.90) (M19.90) Chronic obstructive pulmonary disease with acute exacerbatio n (491.21) (J44.1) Current tobacco use (305.1) (Z72.0) Heart burn (787.1) (R12) Allergic rhinitis (477.9) (J30.9) Ulnar neuropathy of left upper extremity (354.2) (G56.22) Restless legs (333.94) (G25.81) Shortness of breath (786.05) (R06.02) Chronic sinusitis (473.9) (J32.9) Acquired deviated nasal septum (470) (J34.2) Sleep disturbances (780.50) (G47.9) Obesity (278.00) (E66.9) Cellulitis (682.9) (L03.90) Positive D-dimer (790.92) (R79.89) Chronic obstructive pulmonary disease (496) (J44.9) Cough (786.2) (R05) Allergies and Adverse Reactions No Known Drug Allergies (Allergy) Medications Fluticasone Propionate 50 MCG/ACT Nasal Suspension; instill 2 sprays into each nostril once daily ELBA Caldwell Start: 14-Oct-2017 Quantity: 1 15.8 ML Bottle Refills: 0 Mucinex 600 MG Oral Tablet Extended Release 12 Hour; T CHARITY 1 TABLET NEEDED ELBA Caldwell Start: 30-Dec-2015 Quantity: 6 Refills: 0 Omeprazole 20 MG Oral Capsule Delayed Release; TAKE 2 CAPSUL ES DAILY. , M.D. Refills: 0 Nicotine 14 MG/24HR Transdermal Patch 24 Hour; APPLY 1 PATCH DAILY DIRECTED. ELBA Caldwell Start: 02-Feb-2018 Quantity: 1 7 Patch Box Refills: 2 Anoro Ellipta 62.5-25 MCG/INH Inhalation Aerosol Powder Breath Activated; INHALE 1 PUFFS Daily ELBA Caldwell Start: 22-Jan-2015 Quantity: 1 60 Inhaler Pack Refills: 0 raNITIdine HCl - 300 MG Oral Tablet; TAKE 1 TABLET AT BEDTIME ELBA Caldwell Start: 19-Nov-2015 Quantity: 15 Refills: 5 Lyrica 100 MG Oral Capsule; TAKE 1 CAPSULE TWICE DAILY. , M. D. Start: 30-Nov-2016 Refills: 0 Ventolin HFA 108 (90 Base) MCG/ACT Inhal ation Aerosol Solution; INHALE 2 PUFFS EVERY 4 HOURS NEEDED ELBA Caldwell Start: 30-Nov-2016 Quantity: 1 8 GM Inhaler Refills: 3 Ipratropium Peabody 0.02 % Inhalation So lution; USE 1 UNIT DOSE IN NEBULIZER EVERY 4 - 6 HOURS as needed for shortness of breath, cough, or wheeze FERNANDO Caldwell Start: 11-May-2017 Quantity: 1 25 x 2.5 ML Plas Con t Refills: 6 Levalbuterol HCl - 1.25 MG/3ML Inhalatio n Nebulization Solution; USE 1 UNIT DOSE IN NEBULIZER EVERY 4 TO 6 HOURS NEEDED. ELBA Caldwell Start: Quantity: 1 25 x 3 ML Box Refills: 3 Procedures CBC With DIFF Date: 23-Jun-2018 Comp Metabolic Panel Date: 23-Jun-2018 PT/INR Date: 23-Jun-2018 PTT Date: 23-Jun-2018 History of Hernia Repair Status: Complet ed History of Thoracotomy Status: Completed History of Lung Lobectomy Status: Comple raya History of Chest Tube Insertion Status: Completed History of Elbow Surgery Status: Complet ed History of Shoulder Surgery Status: Comp leted History of Neuroplasty Median Nerve At Carpal Status: Completed Tunnel History of Surgery Status: Completed History of Sinus Surgery Status: Complet ed Immunizations Immunizations not documented Family History Unknown Family Member Family history of Heart Disease (V17.49) Status: Active Comments: Family History Family history of Cancer Status: Active Comments: Famil y History Family history of cardiac disorder (V17.49) Status: Active Comments: Family History (Z82.49) FHx: cancer (V16.9) (Z80.9) Status: Active Comments: Fa rambo History Father Family history of hypertension (V17.49) (Z82.49) Status: Act pankaj Family history of cardiac disorder (V17.49) (Z82.49) Status: Active Mother Family history of Status: Active Family history of Non-Hodgkin's lymphoma of lung (202. 80) (C85.89) Status: Active Brother Family history of Status: Active Family history of Non-Hodgkin's lymphoma of lung (202. 80) (C85.89) Status: Active Social History - Smoking Status Current every day smoker Smoker. current status unknown Plan of Treatment Planned Encounters Follow-up visit post testing Request Planned Observations Bronchoscopy Start: 17-Mar-2018 Intent CBC With DIFF Start: 23-Jun-2018 Intent Comp Metabolic Panel Start: 23-Jun-2018 Intent PT/INR Start: 23-Jun-2018 Intent PTT Start: 23-Jun-2018 Intent Results No Known Results Results not documented Vital Signs 07-Jun-2018 12:50 Weight 209 lb Height 66 in BSA Calculated 2.04 m2 BMI Calculated 33.73 kg/m2 Encounters Appointment; Pulmonary, Funct Testing 07-Jun-2018 13:00 Encounter Diagnosis: Problem not documented Appointment; Kinza Caldwell PA-C 13-Mar-2018 9:45 Encounter Diagnosis: Problem not documented Appointment; Kinza Caldwell PA-C 02-Feb-2018 10:15 Encounter Diagnosis: Problem not documented Appointment; José Luis Reeder M.D. 25-Jan-2018 8:00 Encounter Diagnosis: Problem not documented Appointment; Paloma Beaver CRNP 24-Jan-2018 8:30 Encounter Diagnosis: Problem not documented Appointment; Kinza Caldwell PA-C 13-Dec-2017 11:30 Encounter Diagnosis: Problem not documented Appointment; Kinza Caldwell PA-C 26-Oct-2017 13:00 Encounter Diagnosis: Problem not documented Appointment; Kinza Caldwell PA-C 14-Oct-2017 9:15 Encounter Diagnosis: Problem not documented Appointment; Kinza Caldwell PA-C 15-Jun-2017 8:00 Encounter Diagnosis: Problem not documented Appointment; Kinza Caldwell PA-C 11-May-2017 7:30 Encounter Diagnosis: Problem not documented Appointment; Kinza Caldwell PA-C 04-May-2017 7:30 Encounter Diagnosis: Problem not documented Appointment; Rafiq Smith M.D. 29-Dec-2016 14:00 Encounter Diagnosis: Problem not documented Appointment; Rafiq Smith M.D. 23-Dec-2016 10:00 Encounter Diagnosis: Problem not documented Appointment; Kinza Caldwell PA-C 30-Nov-2016 11:30 Encounter Diagnosis: Problem not documented Appointment; Michael Rodriguez M.D. 19-Jul-2016 15:30 Encounter Diagnosis: Problem not documented Appointment; Michael Rodriguez M.D. 14-Jul-2016 15:30 Encounter Diagnosis: Problem not documented
[2018-07-02] MEDS ORDERED: ALBUT/IPRATROP 3MG/0.5MG NEB 3 ML VIAL INH STA (21:42)
[2018-07-02] MEDS ORDERED: methylPREDNISolone 125 MG/2 ML VIAL IV STA (21:42)
[2018-07-02 22:12] LABS: Basophils # (auto) 0.02 K/uL (0-0.2); Basophils % (auto) 0.3 %; Eosinophils # (auto) 0.32 K/uL (0-0.5); Eosinophils % (auto) 4.3 %; Hematocrit (blood only) 45.6 % (42-52); Hemoglobin 16.3 g/dL (14.0-18.0); Immature Granulocytes # (auto) 0.01 K/uL (0.00-0.02); Immature Granulocytes % (auto) 0.1 %; Lymphocytes # (auto) 2.94 K/uL (1.2-3.4); Lymphocytes % (auto) 39.6 %; Mean Corpuscular Hgb Conc 35.7 g/dL (32-36); Mean Corpuscular Volume 92.9 fL (80-100); Monocytes # (auto) 0.74 K/uL (0.11-0.59); Neutrophils # (auto) 3.39 K/uL (1.4-6.5); Neutrophils % (auto) 45.7 %; Platelet Count 211 K/uL (130-400); RDW Coefficient of Variation 14.9 % (11.5-14.5); RDW Standard Deviation 51.3 fL (36.4-46.3); Red Blood Count 4.91 M/uL (4.7-6.1); White Blood Count 7.42 K/uL (4.8-10.8)
[2018-07-02 22:25] LABS: Partial Thromboplastin Time 26.4 Seconds (21.0-31.0); Prothrombin Time 10.3 Seconds (9.0-12.0)
[2018-07-02 22:29] LABS: Alanine Aminotransferase 99 U/L (12-78); Albumin Level 3.3 gm/dl (3.4-5.0); Aspartate Aminotransferase 69 U/L (15-37); BUN Creatinine Ratio 18.8 (10-20); Blood Urea Nitrogen 18 mg/dl (7-18); Calcium 9.2 mg/dl (8.5-10.1); Carbon Dioxide 26 mmol/L (21-32); Chloride 108 mmol/L (98-107); Creatinine Clr Calc Pharmacy 82.4 ml/min; Est GFR (African American) 95.2; Est GFR (Non-African American) 82.2; Glucose 112 mg/dl (70-99); Magnesium 2.1 mg/dl (1.8-2.4); Potassium 3.5 mmol/L (3.5-5.1); Sodium 143 mmol/L (136-145)
[2018-07-02 22:33] LABS: Albumin Globulin Ratio 0.9 (0.9-2); Alkaline Phosphatase 88 U/L (45-117); Bilirubin,Total 0.3 mg/dl (0.2-1); Globulin 3.6 gm/dl (2.5-4.0); Total Protein 6.9 gm/dl (6.4-8.2); Troponin I < 0.015 ng/ml (0-0.045)
--- NOTE | 2018-07-02 22:43 | XRay Report ---
XR chest 1V portable HISTORY: Dyspnea COMPARISON: Chest 02/13/2018. FINDINGS: No pneumothorax. No pleural effusions. The heart is normal in size. Left shoulder prosthesi s and a right humeral cortical plate partially visualized. No new focal lung consolidations to sugges t pneumonia. Chronic interstitial thickening and left upper lobe scarring persists. IMPRESSION: No significant change compared to the prior study. No acute process. Electronically signed by: Asim Peck M.D. 07/02/2018 10:42 PM
[2018-07-02 22:58] LABS: Influenza A virus by PCR Neg for Influ A (Neg); Influenza B virus by PCR Neg for Influ B (Neg)
[2018-07-02 23:33] LABS: D Dimer 590 ug/L FEU (0-500)
[2018-07-02] MEDS ORDERED: AZITHROMYCIN 250 MG TAB PO ONE (23:34)
[2018-07-02 23:35] LABS: NT Pro B Type Natriuretic Pept 41 pg/ml (0-900)
--- NOTE | 2018-07-02 23:35 | Emergency Department Note ---
Entered by Mingo Patel acting as a scribe for History of Present Illness General Chief complaint: Shortness of Breath/Dyspnea Stated complaint: SOB Source: patient and family () Limitations: no limitations History of Present Illness Onset (ago): week(s) Location: chest Pain Consistency: + constant Maximum Pain Intensity: 5 Quality: + constant Exacerbated By: + movement Associated symptoms: + denies other symptoms (abdominal pain, leg swelling), + shortness of breath and + other (diarrhea, congestion); no cough and no fever/chills The patient is a 62 year old male who presents to the Emergency Room with complaints of constant SOB starting this week. The patient notes his symptoms started when he got a cold. He states he has congestion. The patient's states the patient has been using 2 nebulizer treatments a day for the past 3 days. He notes the SOB is worse with movement. He notes he has been having diarrhea. He states he does not use oxygen at home. He states he has pain in his flanks and his back. He denies fevers, cough, abdominal pain, leg swelling, recent travels, and recent steroid use. The patient notes he smokes half a pack a day. He notes he follows up with [facility] Pulm Home Medications Home Medications Medication Instructions Recorded Confirmed Type Anoro Ellipta 1 inh INHALATION QAM 10/16/17 07/02/18 History Lyrica 100 mg PO BID 10/16/17 07/02/18 History atorvastatin [Lipitor] 10 mg PO QAM 10/16/17 07/02/18 History lorazepam [Ativan] 0.5 mg PO Q8 PRN 10/16/17 07/02/18 History ranitidine HCl [Zantac] 150 mg PO BID 10/16/17 07/02/18 History acetaminophen [Tylenol Extra 1,000 mg PO Q6H PRN #60 tab 10/21/17 07/02/18 Rx Strength] levalbuterol HCl 1.25 mg INHALATION QID PRN 02/13/18 07/02/18 History Allergies Allergy/AdvReac Type Severity Reaction Status Date / Time No Known Allergies Allergy Verified 07/02/18 22:35 Past Med/Surg History Medical History Anxiety (Chronic) HLD (hyperlipidemia) (Chronic) Hypertension (Chronic) Thoracic spinal stenosis (Chronic) Diaphragmatic hernia (Chronic) GERD (gastroesophageal reflux disease) (Chronic) Neuropathy (Chronic) COPD, moderate (Chronic) "LAST PFT -08/30/11" Tobacco use (Chronic) GERD (gastroesophageal reflux disease) (Acute) High cholesterol (Acute) History of broken leg (Acute) Neuropathy (Acute) TAYLOR (obstructive sleep apnea) (Acute) COPD (chronic obstructive pulmonary disease) Lung abscess Pneumothorax Surgical History History of repair of rotator cuff (Resolved) H/O hernia repair (Resolved) "[facility] incarcerated supraumbilical hernia repair open no mesh 02/17/01" H/O exploratory thoracotomy (Resolved) "Left thoracotomy wedge biopsy of left upper lobe with excision of lesion or nodule & frozen section 2002" H/O elbow surgery (Resolved) H/O elbow surgery (Acute) H/O exploratory thoracotomy (Acute) H/O hernia repair (Acute) History of total replacement of both shoulder joints (Acute) Family History Other Leukemia Stroke Social History Preferred Language: Khmer Communication Ability: Effective Beliefs That Will Affect Care: None Current Living Situation: Spouse Feels Safe at Home: Yes Smoking Status: Current every day smoker Tobacco Type: cigarettes Cigarettes Per Day: 15 Second Hand Exposure: Yes Hx Alcohol Use: No Hx Substance Use: No Review of Systems See HPI for pertinent positives & negatives. and A total of 10 systems reviewed and were otherwise negative Physical Exam Vital Signs Vital Signs - 24 hr 07/02/18 21:15 07/02/18 21:20 07/02/18 21:42 Temperature 36.6 C Temperature Source Oral Sepsis Recent Fever Within 48 Hours No Sepsis Action Taken by Nursing No Action Required Pulse Rate 100 H Pulse Rate [Right Radial] Pulse Rhythm Regular Pulse Rhythm [Right Radial] Pulse Strength Normal Pulse Strength [Right Radial] Respiratory Rate 24 Respiratory Effort / Characteristics Spontaneous Labored Spontaneous Labored Respiratory Depth Deep Respiratory Pattern Regular Blood Pressure 122/76 Blood Pressure [Right Arm] Blood Pressure Mean 91 Blood Pressure Mean [Right Arm] Blood Pressure Position Sitting Blood Pressure Position [Right Arm] Pulse Oximetry 94 Oxygen Delivery Method Room Air Room Air 07/02/18 21:51 07/02/18 23:20 Temperature Temperature Source Sepsis Recent Fever Within 48 Hours Sepsis Action Taken by Nursing Pulse Rate Pulse Rate [Right Radial] 96 H 108 H Pulse Rhythm Pulse Rhythm [Right Radial] Regular Pulse Strength Pulse Strength [Right Radial] Normal Respiratory Rate 18 23 Respiratory Effort / Characteristics Non-Labored Spontaneous Non-Labored Spontaneous Respiratory Depth Normal Respiratory Pattern Regular Blood Pressure Blood Pressure [Right Arm] 113/71 Blood Pressure Mean Blood Pressure Mean [Right Arm] 85 Blood Pressure Position Blood Pressure Position [Right Arm] Sitting Pulse Oximetry 93 95 Oxygen Delivery Method Room Air Room Air GENERAL: Awake, alert, in no distress HENT: Normocephalic, atraumatic. Oropharynx unremarkable. EYES: Normal conjunctiva. Sclera non-icteric. NECK: Supple. No nuchal rigidity. RESPIRATORY: 2 to 3 word dyspnea. Inspiratory and expiratory wheezes. Increased work of breathing. CARDIAC: Normal rate. Normal rhythm. Extremities warm and well perfused. GI: Soft, non-distended. No tenderness to palpation. No rebound or guarding. RECTAL: Deferred. MUSCULOSKELETAL: Atraumatic. Chest examination reveals no tenderness. LOWER EXTREMITIES: Calves are equal size bilaterally and non-tender. No edema NEURO: Normal sensorium. No sensory or motor deficits noted. No facial droop. SKIN: Warm and dry. No rash or jaundice noted. Course 2155: The patient was evaluated in room A10, and a complete history and physical examination were performed. 2256: I discussed the patient's case with Dr. Lance Granda [facility]. He will evaluate the patient for further management Administered Medications Discontinued Medications Albuterol (Duoneb) 12 ml INH ONE STA Stop: 07/02/18 21:43 Last Admin: 07/02/18 21:48 Dose: 12 ml Documented by: [id number] Azithromycin (Zithromax) 500 mg PO NOW ONE Stop: 07/02/18 23:35 Last Admin: 07/02/18 23:57 Dose: 500 mg Documented by: [id number] Methylprednisolone (Solumedrol) 125 mg IV NOW STA Stop: 07/02/18 21:43 Last Admin: 07/02/18 22:15 Dose: 125 mg Documented by: [id number] Medical Decision Making Differential Diagnosis Differential diagnosis: Etiologies such as infections, reactive airway disease, COPD, pneumonia, pleural effusion, pulmonary edema, ARDS, pneumothorax, CHF, cardiac ischemia, cardiac tamponade, dysrhythmia, anemia, pulmonary embolism, musculoskeletal, gastrointestinal process, as well as others were entertained. Medical Records Attestation: I reviewed the patient's medical records. Home Medications Current Medication List: was personally reviewed by me Laboratory Data Attestation: I reviewed the patient's lab results. Result diagrams: 07/02/18 21:42 07/02/18 21:42 Lab Results 07/02/18 07/02/18 07/02/18 Range/Units 21:42 21:42 21:42 WBC 7.42 (4.8-10.8) K/uL RBC 4.91 (4.7-6.1) M/uL Hgb 16.3 (14.0-18.0) g/dL Hct 45.6 (42-52) % MCV 92.9 (80-100) fL MCH 33.2 (25-34) pg MCHC 35.7 (32-36) g/dL RDW Std Deviation 51.3 H (36.4-46.3) fL RDW Coeff of Jaz 14.9 H (11.5-14.5) % Plt Count 211 (130-400) K/uL MPV 11.0 H (7.4-10.4) fL Immature Gran % (Auto) 0.1 % Neut % (Auto) 45.7 % Lymph % (Auto) 39.6 % [place] % (Auto) 10.0 % Eos % (Auto) 4.3 % Baso % (Auto) 0.3 % Immature Gran # (Auto) 0.01 (0.00-0.02) K/uL Neut # (Auto) 3.39 (1.4-6.5) K/uL Lymph # (Auto) 2.94 (1.2-3.4) K/uL [place] # (Auto) 0.74 H (0.11-0.59) K/uL Eos # (Auto) 0.32 (0-0.5) K/uL Baso # (Auto) 0.02 (0-0.2) K/uL PT 10.3 (9.0-12.0) Seconds INR 1.0 (0.9-1.1) APTT 26.4 (21.0-31.0) Seconds PTT Ratio 1.0 D-Dimer (0-500) ug/L FEU Sodium 143 (136-145) mmol/L Potassium 3.5 (3.5-5.1) mmol/L Chloride 108 H (98-107) mmol/L Carbon Dioxide 26 (21-32) mmol/L Anion Gap 9.0 (3-11) BUN 18 (7-18) mg/dl Creatinine 0.97 (0.6-1.4) mg/dl Est Cr Clr Drug Dosing 82.4 ml/min Est GFR ( Amer) 95.2 Est GFR (Non-Af Amer) 82.2 BUN/Creatinine Ratio 18.8 (10-20) Glucose 112 H (70-99) mg/dl Calcium 9.2 (8.5-10.1) mg/dl Magnesium 2.1 (1.8-2.4) mg/dl Total Bilirubin 0.3 (0.2-1) mg/dl AST 69 H (15-37) U/L ALT 99 H (12-78) U/L Alkaline Phosphatase 88 (45-117) U/L Troponin I < 0.015 (0-0.045) ng/ml NT-Pro-B Natriuret Pep 41 (0-900) pg/ml Total Protein 6.9 (6.4-8.2) gm/dl Albumin 3.3 L (3.4-5.0) gm/dl Globulin 3.6 (2.5-4.0) gm/dl Albumin/Globulin Ratio 0.9 (0.9-2) Influenza Type A (PCR) (Neg) Influenza Type B (PCR) (Neg) 07/02/18 07/02/18 Range/Units 21:42 22:20 WBC (4.8-10.8) K/uL RBC (4.7-6.1) M/uL Hgb (14.0-18.0) g/dL Hct (42-52) % MCV (80-100) fL MCH (25-34) pg MCHC (32-36) g/dL RDW Std Deviation (36.4-46.3) fL RDW Coeff of Jaz (11.5-14.5) % Plt Count (130-400) K/uL MPV (7.4-10.4) fL Immature Gran % (Auto) % Neut % (Auto) % Lymph % (Auto) % [place] % (Auto) % Eos % (Auto) % Baso % (Auto) % Immature Gran # (Auto) (0.00-0.02) K/uL Neut # (Auto) (1.4-6.5) K/uL Lymph # (Auto) (1.2-3.4) K/uL [place] # (Auto) (0.11-0.59) K/uL Eos # (Auto) (0-0.5) K/uL Baso # (Auto) (0-0.2) K/uL PT (9.0-12.0) Seconds INR (0.9-1.1) APTT (21.0-31.0) Seconds PTT Ratio D-Dimer 590 H* (0-500) ug/L FEU Sodium (136-145) mmol/L Potassium (3.5-5.1) mmol/L Chloride (98-107) mmol/L Carbon Dioxide (21-32) mmol/L Anion Gap (3-11) BUN (7-18) mg/dl Creatinine (0.6-1.4) mg/dl Est Cr Clr Drug Dosing ml/min Est GFR ( Amer) Est GFR (Non-Af Amer) BUN/Creatinine Ratio (10-20) Glucose (70-99) mg/dl Calcium (8.5-10.1) mg/dl Magnesium (1.8-2.4) mg/dl Total Bilirubin (0.2-1) mg/dl AST (15-37) U/L ALT (12-78) U/L Alkaline Phosphatase (45-117) U/L Troponin I (0-0.045) ng/ml NT-Pro-B Natriuret Pep (0-900) pg/ml Total Protein (6.4-8.2) gm/dl Albumin (3.4-5.0) gm/dl Globulin (2.5-4.0) gm/dl Albumin/Globulin Ratio (0.9-2) Influenza Type A (PCR) Neg for Influ A (Neg) Influenza Type B (PCR) Neg for Influ B (Neg) Imaging Data Radiologist's Impression: Radiology results as stated below per my review and the radiologist's interpretation: XR chest 1V portable HISTORY: Dyspnea COMPARISON: Chest 02/13/2018. FINDINGS: No pneumothorax. No pleural effusions. The heart is normal in size. Left shoulder prosthesis and a right humeral cortical plate partially visualized. No new focal lung consolidations to suggest pneumonia. Chronic interstitial thickening and left upper lobe scarring persists. IMPRESSION: No significant change compared to the prior study. No acute process. Electronically signed by: Asim Peck M.D. 07/02/2018 10:42 PM ECG Data Attestation: I personally reviewed and interpreted this ECG as follows: Indication: SOB/dyspnea Rate (beats per minute): 95 Rhythm: sinus rhythm Findings: no ST depression and no ST elevation Blood Pressure Blood Pressure Findings: Normal blood pressure Blood Pressure Disposition: further management by hospitalist BERRY Narrative Patient is a 62-year-old gentleman history of COPD, hypertension, lipidemia, GERD presenting for complaint of shortness of breath. In February for COPD exacerbation and has had prior bronchoscopy with Dr. Reeder. Over the past week worsening shortness of breath with head cold symptoms. Not on oxygen at home. Patient with support dyspnea. Increased work of breathing on exam with signifi cant joint expiratory wheeze. Denies recent travel or leg swelling. Doubt CHF. Doubt dissection. Lower suspicion for PE in this patient given wheeze and history. Treated with steroids and nebulized treatments. X-ray was completed to exclude pneumothorax and pneumonia. Basic labs were also completed including EKG. Lower suspicion for ACS/acute PA in this patient. Patient is still smoking and believe this is a COPD exacerbation. Again received steroids and duo nebs here but still with significant worsened breathing. Discussed with the patient and plan for admission to the hospital. Given azithromycin for COPD exacerbation. Impression & Plan COPD exacerbation Discharge Plan Visit Data Chief Complaint: Shortness of Breath/Dyspnea Stated Complaint: SOB ED Provider: Enrique Crawford Discharge Problem: COPD exacerbation Forms Stand Alone Forms: My [employer] Prescriptions Prescriptions: No Action atorvastatin [Lipitor] 10 mg Tablet 10 mg PO QAM RF: 0 lorazepam [Ativan] 0.5 mg Tablet 0.5 mg PO Q8 PRN (Reason: Anxiety) RF: 0 ranitidine HCl [Zantac] 150 mg Tablet 150 mg PO BID RF: 0 Lyrica 100 mg Capsule 100 mg PO BID RF: 0 Anoro Ellipta 62.5-25 mcg/actuation Blister With Device 1 inh INHALATION QAM RF: 0 acetaminophen [Tylenol Extra Strength] 500 mg tablet 1,000 mg PO Q6H PRN (Reason: pain, moderate) Qty: 60 RF: 0 levalbuterol HCl 1.25 mg/0.5 mL Solution For Nebulization 1.25 mg INHALATION QID PRN (Reason: Shortness Of Breath Or Wheezing) RF: 0 The scribe's documentation has been prepared under my direction and personally reviewed by me in its entirety. I confirm that the note above accurately reflects all work, treatment, procedures, and medical decision making performed by me.
[2018-07-03] MEDS ORDERED: OPTIRAY 320 125ml IV PRN (00:13)
[2018-07-03] MEDS ORDERED: POTASSIUM CHLORIDE 20 MEQ TABCR PO STA (01:08)
[2018-07-03] MEDS ORDERED: DOXYCYCLINE HYCLATE 100 MG in DEXTROSE 5% 100 ML IV STA (01:08)
[2018-07-03] MEDS ORDERED: LACTATED RINGER'S 1,000 ML IV ONE (01:08)
--- NOTE | 2018-07-03 01:08 | History & Physical Report ---
Date of Service July 03, 2018 Assessment & Plan (1) COPD exacerbation: Complicated bronchitis No sepsis history of PE status post Coumadin ongoing tobacco abuse, TAYLOR histoplasmosis as per records Hyperglycemia rule out DM GMF Doxycycline nebs, prednisone course Pulmonary consult RE COPD exacerbation Check hemoglobin A1c Nicotine patch as needed DVT prophylaxis. Lovenox subcu Full code. History of Present Illness Chief Complaint: Shortness of breath Primary Care Provider: Marie Weaver DO History obtained from patient and records. Medical history significant for COPD, history of PE status post Coumadin, ongoing tobacco abuse, TAYLOR, histoplasmosis as per records. hyperlipidemia Recent confinement February 2018 for COPD exacerbation. Few days history of dry to sticky cough symptoms, pleuritic chest pain with shortness of breath. No known sick contacts, no fever, no chills. At the ER, patient received Solu-Medrol, azithromycin, and neb treatment for COPD exacerbation. 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 Allergies Allergy/AdvReac Type Severity Reaction Status Date / Time No Known Allergies Allergy Verified 07/02/18 22:35 Home Medications Home Medications Medication Instructions Recorded Confirmed Type Anoro Ellipta 1 inh INHALATION QAM 10/16/17 07/02/18 History Lyrica 100 mg PO BID 10/16/17 07/02/18 History atorvastatin [Lipitor] 10 mg PO QAM 10/16/17 07/02/18 History lorazepam [Ativan] 0.5 mg PO Q8 PRN 10/16/17 07/02/18 History ranitidine HCl [Zantac] 150 mg PO BID 10/16/17 07/02/18 History acetaminophen [Tylenol Extra 1,000 mg PO Q6H PRN #60 tab 10/21/17 07/02/18 Rx Strength] levalbuterol HCl 1.25 mg INHALATION QID PRN 02/13/18 07/02/18 History omeprazole 07/03/18 History Past Med/Surg History Medical History Anxiety (Chronic) HLD (hyperlipidemia) (Chronic) Hypertension (Chronic) Thoracic spinal stenosis (Chronic) Diaphragmatic hernia (Chronic) GERD (gastroesophageal reflux disease) (Chronic) Neuropathy (Chronic) COPD, moderate (Chronic) "LAST PFT -08/30/11" Tobacco use (Chronic) GERD (gastroesophageal reflux disease) (Acute) High cholesterol (Acute) History of broken leg (Acute) Neuropathy (Acute) TAYLOR (obstructive sleep apnea) (Acute) COPD (chronic obstructive pulmonary disease) Lung abscess Pneumothorax Surgical History History of repair of rotator cuff (Resolved) H/O hernia repair (Resolved) "[facility] incarcerated supraumbilical hernia repair open no mesh 02/17/01" H/O exploratory thoracotomy (Resolved) "Left thoracotomy wedge biopsy of left upper lobe with excision of lesion or nodule & frozen section 2002" H/O elbow surgery (Resolved) H/O elbow surgery (Acute) H/O exploratory thoracotomy (Acute) H/O hernia repair (Acute) History of total replacement of both shoulder joints (Acute) Family History Other Leukemia Stroke Social History Preferred Language: Croatian Communication Ability: Effective 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 Beliefs That Will Affect Care: None Current Living Situation: Spouse Other Information That Helps Us Care for You: No Feels Safe at Home: Yes Safety Concerns: Feels Safe At This Time Smoking Status: Current every day smoker Tobacco Type: cigarettes Cigarettes Per Day: 15 Do You Dip or Chew Tobacco: No Second Hand Exposure: Yes Tobacco Cessation Education Requested by Patient: No Hx Alcohol Use: No Hx Substance Use: No Review of Systems Review of Systems: As per HPI, all 10 systems reviewed, all other ROS negative Physical Exam Physical Exam: GENERAL: uncomfortable, anxious, minimal respiratory distress SKIN: Normal color, warm HEENT: Partial alopecia, bespectacled, pink palpebral conjunctivae, no ptosis, dry buccal mucosa, nasal cannula in place NECK : Supple, no tenderness CHEST : Decreased breath sounds, expiratory wheezes, no tenderness HEART : Tachycardic, systolic murmur ABDOMEN: Some distention, nontender EXTREMITIES : No LE swelling/tenderness, no other conspicuous deformities noted NEUROLOGIC : Coherent, no facial asymmetry, no other gross focality Results & Data Vital Signs (Past 12 Hours) Vital Signs Temp Pulse Pulse Resp BP BP Pulse Ox 07/03/18 00:31 100 H 17 94/55 L 93 07/03/18 00:30 102 H 19 93 07/03/18 00:01 112 H 16 115/67 91 07/03/18 00:00 106 H 19 91 07/02/18 23:31 103 H 17 100/66 93 07/02/18 23:20 108 H 23 113/71 95 07/02/18 23:05 105 H 21 114/55 L 98 07/02/18 21:51 96 H 18 93 07/02/18 21:20 36.6 C 100 H 24 122/76 94 Laboratory Results Laboratory Results WBC 7.42 K/uL (4.8-10.8) 07/02/18 21:42 RBC 4.91 M/uL (4.7-6.1) 07/02/18 21:42 Hgb 16.3 g/dL (14.0-18.0) 07/02/18 21:42 Hct 45.6 % (42-52) 07/02/18 21:42 MCV 92.9 fL (80-100) 07/02/18 21:42 MCH 33.2 pg (25-34) 07/02/18 21:42 MCHC 35.7 g/dL (32-36) 07/02/18 21:42 RDW Std Deviation 51.3 fL (36.4-46.3) H 07/02/18 21:42 RDW Coeff of Jaz 14.9 % (11.5-14.5) H 07/02/18 21:42 Plt Count 211 K/uL (130-400) 07/02/18 21:42 MPV 11.0 fL (7.4-10.4) H 07/02/18 21:42 Immature Gran % (Auto) 0.1 % 07/02/18 21:42 Neut % (Auto) 45.7 % 07/02/18 21:42 Lymph % (Auto) 39.6 % 07/02/18 21:42 [place] % (Auto) 10.0 % 07/02/18 21:42 Eos % (Auto) 4.3 % 07/02/18 21:42 Baso % (Auto) 0.3 % 07/02/18 21:42 Immature Gran # (Auto) 0.01 K/uL (0.00-0.02) 07/02/18 21:42 Neut # (Auto) 3.39 K/uL (1.4-6.5) 07/02/18 21:42 Lymph # (Auto) 2.94 K/uL (1.2-3.4) 07/02/18 21:42 [place] # (Auto) 0.74 K/uL (0.11-0.59) H 07/02/18 21:42 Eos # (Auto) 0.32 K/uL (0-0.5) 07/02/18 21:42 Baso # (Auto) 0.02 K/uL (0-0.2) 07/02/18 21:42 PT 10.3 Seconds (9.0-12.0) 07/02/18 21:42 INR 1.0 (0.9-1.1) 07/02/18 21:42 APTT 26.4 Seconds (21.0-31.0) 07/02/18: PTT Ratio 1.0 07/02/18 21:42 590 ug/L FEU (0-500) H* 07/02/18 21:42 Sodium 143 mmol/L (136-145) 07/02/18 21:42 Potassium 3.5 mmol/L (3.5-5.1) 07/02/18 21:42 Chloride 108 mmol/L (98-107) H 07/02/18 21:42 Carbon Dioxide 26 mmol/L (21-32) 07/02/18 21:42 9.0 (3-11) 07/02/18 21:42 BUN 18 mg/dl (7-18) 07/02/18 21:42 0.97 mg/dl (0.6-1.4) 07/02/18 21:42 Est Cr Clr Drug Dosing 82.4 ml/min 07/02/18 21:42 Est GFR ( Amer) 95.2 07/02/18 21:42 Est GFR (Non-Af Amer) 82.2 07/02/18 21:42 18.8 (10-20) 07/02/18 21:42 Glucose 112 mg/dl (70-99) H 07/02/18 21:42 Calcium 9.2 mg/dl (8.5-10.1) 07/02/18 21:42 Magnesium 2.1 mg/dl (1.8-2.4) 07/02/18 21:42 0.3 mg/dl (0.2-1) 07/02/18 21:42 AST 69 U/L (15-37) H 07/02/18 21:42 ALT 99 U/L (12-78) H 07/02/18 21:42 88 U/L (45-117) 07/02/18 21:42 < 0.015 ng/ml (0-0.045) 07/02/18 21:42 NT-Pro-B Natriuret Pep 41 pg/ml (0-900) 07/02/18 21:42 6.9 gm/dl (6.4-8.2) 07/02/18 21:42 3.3 gm/dl (3.4-5.0) L 07/02/18 21:42 3.6 gm/dl (2.5-4.0) 07/02/18 21:42 0.9 (0.9-2) 07/02/18 21:42 Influenza Type A (PCR) Neg for Influ A (Neg) 07/02/18 22:20 Influenza Type B (PCR) Neg for Influ B (Neg) 07/02/18 22:[address] chest initial read: PE evaluation limited by suboptimal timing of contrast bolus. No evidence of central pulmonary embolism. Mild scarring/mild chronic interstitial changes. Very mild emphysema. Coronary artery calcifications. EKG as per my interpretation rate 95, NSR, T wave flattening inferior, anteroseptal leads
[2018-07-03] MEDS ORDERED: ACETAMINOPHEN 325 MG TAB PO PRN (02:27)
[2018-07-03] MEDS ORDERED: TRAMADOL HCL 50 MG TABLET PO PRN (02:27)
[2018-07-03] MEDS ORDERED: INSULIN GLARGINE SOLOSTAR 100 UNITS/ML 3 ML PEN SQ STA (02:27)
[2018-07-03] MEDS ORDERED: LORazepam 0.5 MG TAB PO PRN (02:27)
[2018-07-03] MEDS ORDERED: GLUCOSE 40% GEL 15 GM TUBE PO PRN (02:27)
[2018-07-03] MEDS ORDERED: XOPENEX/ATROVENT 1.25mg/0.5MG NEB COMBO NEB SCH (02:27)
[2018-07-03] MEDS ORDERED: GLUCAGON FOR INJ 1 MG VIAL SQ PRN (02:27)
[2018-07-03] MEDS ORDERED: DEXTROSE 50% 50 ML SYRINGE IV PRN (02:27)
[2018-07-03] MEDS ORDERED: GLUCOSE 10 TABS/TUBE PO PRN (02:27)
[2018-07-03] MEDS ORDERED: CARBOHYDRATES FOR HYPOGLYCEMIA PO PRN (02:27)
[2018-07-03] MEDS ORDERED: PROMETHAZINE HCL 12.5 MG in SODIUM CHLORIDE 0.9% 50 ML IV PRN (02:27)
[2018-07-03] MEDS: IPRATROPIUM BROMIDE NEB SOLN 0.02% 2.5 ML VIAL INH SCH ×4 (02:58→19:02)
[2018-07-03] MEDS: LEVALBUTEROL 1.25MG/0.5ML NEB INH SCH ×4 (03:00→19:02)
[2018-07-03] MEDS: guaiFENesin 600 MG TABCR PO SCH ×3 (03:08→20:33)
[2018-07-03] MEDS: INSULIN ASPART 100 UNITS/ML 3 ML PEN SC SCH ×5 (03:09→20:37)
--- NOTE | 2018-07-03 06:00 | CT Scan Report ---
CT angio chest PE protocol CT DOSE: 585.62 mGy.cm HISTORY: Chest pain. Dyspnea. PE TECHNIQUE: Multiaxial CT images of the chest were performed following the intravenous administration of contrast to evaluate the pulmonary arteries. Maximal intensity projection images were also obtaine d. A dose lowering technique was utilized adhering to the principles of ALARA. COMPARISON STUDY: 10/16/2017 FINDINGS: Limited exam of the peripheral pulmonary vasculature due to patient respiratory and somatic motion. No evidence for a major central or primary embolus. Thoracic aorta is unremarkable. Lungs are grossly clear. Mild emphysematous change. Scattered atelectatic atelectasis. IMPRESSION: No evidence for pulmonary embolus. The mid study of the peripheral vasculature due to patient motion. Mild emphysematous change. The above report was generated using voice recognition software. It may contain grammatical, syntax or spelling errors. Electronically signed by: Regis Menchaca M.D. 07/03/2018 5:58 AM
[2018-07-03 06:25] LABS: Basophils # (auto) 0.01 K/uL (0-0.2); Basophils % (auto) 0.2 %; Hemoglobin 15.9 g/dL (14.0-18.0); Immature Granulocytes # (auto) 0.01 K/uL (0.00-0.02); Immature Granulocytes % (auto) 0.2 %; Lymphocytes % (auto) 13.6 %; Mean Corpuscular Hgb Conc 36.1 g/dL (32-36); Mean Corpuscular Volume 91.7 fL (80-100); Monocytes # (auto) 0.06 K/uL (0.11-0.59); Monocytes % (auto) 1.2 %; Neutrophils # (auto) 4.38 K/uL (1.4-6.5); Neutrophils % (auto) 84.8 %; Platelet Count 206 K/uL (130-400); RDW Coefficient of Variation 15.1 % (11.5-14.5); RDW Standard Deviation 51.3 fL (36.4-46.3); White Blood Count 5.16 K/uL (4.8-10.8)
[2018-07-03 06:46] LABS: Alanine Aminotransferase 91 U/L (12-78); Albumin Level 3.3 gm/dl (3.4-5.0); Aspartate Aminotransferase 58 U/L (15-37); BUN Creatinine Ratio 16.3 (10-20); Bilirubin Direct < 0.1 mg/dl (0-0.2); Blood Urea Nitrogen 16 mg/dl (7-18); Calcium 9.4 mg/dl (8.5-10.1); Carbon Dioxide 21 mmol/L (21-32); Chloride 111 mmol/L (98-107); Creatinine Clr Calc Pharmacy 80.5 ml/min; Est GFR (African American) 92.9; Est GFR (Non-African American) 80.2; Glucose 195 mg/dl (70-99); Sodium 142 mmol/L (136-145)
[2018-07-03 06:49] LABS: Alkaline Phosphatase 83 U/L (45-117); Bilirubin,Total 0.3 mg/dl (0.2-1); Total Protein 6.7 gm/dl (6.4-8.2)
[2018-07-03 07:18] LABS: Estimated Average Glucose 123 mg/dl
[2018-07-03] MEDS: ENOXAPARIN INJ 40 MG/0.4 ML SYR SQ SCH (07:59)
[2018-07-03] MEDS: ATORVASTATIN 10 MG TAB PO SCH (07:59)
[2018-07-03] MEDS: predniSONE 20 MG TAB PO SCH (08:00)
[2018-07-03] MEDS: PREGABALIN 100 MG CAP PO SCH ×2 (08:48→20:45)
--- NOTE | 2018-07-03 13:35 | Pulmonary Consultation ---
Date of Consultation July 03, 2018 Assessment & Plan (1) COPD exacerbation: Patient likely to have had a URI which is viral in etiology during one of his fishing trips Agree with Doxycycline for 7 days prednisone 40 mg daily x 5 days agree with levalbuterol Would add a controller medication. He uses Annoro ellipta at home Patient feels much better and is not requiring O2 supplementation. We had a long discussion on smoking cessation and says the insurance does not cover nicotine patches. Will see if they cover gums He is not inclined to stop smoking. 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 However, he said his insurance does not qualify him for CPAP and when I inquired whether he could tolerat a CPAP he said no. It seems he was non adherent to the 70% 4 hour rule and his insurance withdrew the CPAP He may be investigated with an echo as outpaient for RV function and cor pulmon yessica. (3) HLD (hyperlipidemia): Agree with atorvastatin (4) Anxiety: defer non respiratory medical issues to the primary medicine team. However, would recommend against [employer] depressants which may affect respiratory drive. History of Present Illness Reason for Consultation: acute on chronic respiratory failure Attending Physician: Demetri Law MD History of Present Illness This is a 62 yo male patient who is known to have COPD. FEV1 post bronchodilators 70% and RV 148%. The patient says he has been coughing x 1 week producing greenish phlegm and having pleuritic chest pain on the left side. He is a current smoker of 1/2 PPD and has been doing that since ge 48. His Buddies inducted him to use cigarettes at that age. The patient denies exposure to sick people. CTA and Flu testing on admission ruled out Flu A and Flu B as well as PE. He however says he went on 2 fishing trips back to back the prior 2 weekends and he got sick subsequent to his latest trip. He said they were exposed to rain but he had his dry coat. None of his friends got sick. He had runny nose shortness of breath cough and pain as above. No fever no chills no abdominal or symptoms otherwise. At home he is maintained on annoro and albuterol. He says he did nto improve in a week but after his stay here and the meds he feels much better. Allergies Allergy/AdvReac Type Severity Reaction Status Date / Time No Known Allergies Allergy Verified 07/02/18 22:35 Home Medications Home Medications Medication Instructions Recorded Confirmed Type Anoro Ellipta 1 inh INHALATION QAM 10/16/17 07/02/18 History Lyrica 100 mg PO BID 10/16/17 07/02/18 History atorvastatin [Lipitor] 10 mg PO QAM 10/16/17 07/02/18 History lorazepam [Ativan] 0.5 mg PO Q8 PRN 10/16/17 07/02/18 History ranitidine HCl [Zantac] 150 mg PO BID 10/16/17 07/02/18 History acetaminophen [Tylenol Extra 1,000 mg PO Q6H PRN #60 tab 10/21/17 07/02/18 Rx Strength] levalbuterol HCl 1.25 mg INHALATION QID PRN 02/13/18 07/02/18 History Patient History Medical History Anxiety (Chronic) HLD (hyperlipidemia) (Chronic) Hypertension (Chronic) Thoracic spinal stenosis (Chronic) Diaphragmatic hernia (Chronic) GERD (gastroesophageal reflux disease) (Chronic) Neuropathy (Chronic) COPD, moderate (Chronic) "LAST PFT -08/30/11" Tobacco use (Chronic) GERD (gastroesophageal reflux disease) (Acute) High cholesterol (Acute) History of broken leg (Acute) Neuropathy (Acute) TAYLOR (obstructive sleep apnea) (Acute) COPD (chronic obstructive pulmonary disease) Lung abscess Pneumothorax Surgical History History of repair of rotator cuff (Resolved) H/O hernia repair (Resolved) "[facility] incarcerated supraumbilical hernia repair open no mesh 02/17/01" H/O exploratory thoracotomy (Resolved) "Left thoracotomy wedge biopsy of left upper lobe with excision of lesion or nodule & frozen section 2002" H/O elbow surgery (Resolved) H/O elbow surgery (Acute) H/O exploratory thoracotomy (Acute) H/O hernia repair (Acute) History of total replacement of both shoulder joints (Acute) Family History Other Leukemia Stroke Social History Preferred Language: [place]i Communication Ability: Effective 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 Beliefs That Will Affect Care: None Current Living Situation: Spouse Other Information That Helps Us Care for You: No Feels Safe at Home: Yes Safety Concerns: Feels Safe At This Time Smoking Status: Current every day smoker Tobacco Type: cigarettes Cigarettes Per Day: 15 Do You Dip or Chew Tobacco: No Second Hand Exposure: Yes Tobacco Cessation Education Requested by Patient: No Hx Alcohol Use: No Hx Substance Use: No Review of Systems Review of Systems: All systems reviewed & are unremarkable except as noted in HPI & below He does report feet edema at the end of the day for about 2 years now with 3 pillow orhotpnea of about the same durtation. He says he was investigated as outpatient with echocardiogram and was told he has no heart problems. Physical Exam Constitutional: WD/WN, vitals as above Eyes: PERRL, conjunctivae normal, anicteric sclerae Neck: trachea midline, no thyromegaly no stridor supple neck Respiratory: Bilateral diminished air entry but no wheezes, crackles of rhonchi Cardiovascular: RRR, no murmur, no edema Gastrointestinal (Abdomen): normal bowel sounds, soft, nontender, no hepatosplenomegaly Musculoskeletal: no cyanosis or clubbing, extremities motor strength 5/5 Skin: no rashes, warm and dry Neurologic: Alert awake Oriented x 3 without focal motor deficits. Results & Data Vital Signs (Past 12 Hours) Vital Signs Temp Pulse Resp BP Pulse Ox 07/03/18 07:19 36.6 C 86 18 110/67 90 07/03/18 07:15 87 18 91 07/03/18 04:12 36.6 C 99 H 18 112/65 92 07/03/18 03:00 92 H 16 91
--- NOTE | 2018-07-03 15:12 | Hospitalist Progress Note ---
Date of Service July 03, 2018 Assessment & Plan (1) COPD exacerbation: Acute on chronic COPD Exacerbation Complicated bronchitis No signs of sepsis Ongoing tobacco use CTA:No evidence for pulmonary embolus. The mid study of the peripheral vasculature due to patient motion. Mild emphysematous change. Continue doxycycline, bronchodilators, prednisone Pulmonology consulted Counselled to quit smoking GERD: Continue Ranitidine, PPI H/O Histoplasmosis As per records Ongoing Tobacco Abuse Nicotine patch Prediabetes Hb A1C:5.9 Continue ISS, basal Insulin DVT Px: Lovenox SQ Code Status Full code Disposition: Expected discharge home when stable Subjective Patient is seen and examined at bedside Doing better today Cough, shortness of breath are improving Denies any chest pain, nausea, dizziness, abdominal pain Offers no other complaints Review of Systems Review of Systems: All systems reviewed & are unremarkable except as noted in HPI & below Physical Exam Physical Exam: Physical Exam: Vitals signs as noted above General Appearance:Moderately built and nourished, no apparent distress Head: normocephalic, Atraumatic Eyes: normal inspection, EOMI Neck: supple, Trachea midline Respiratory/Chest: Decreased breath sounds, CTA Cardiovascular: S1, S2, No murmur Abdomen/GI:Soft, Non tender, Bowel sounds present Extremities/Musculoskelatal:normal inspection, no edema Neurologic/Psych:AAOX3, grossly no focal neurological deficits Skin: normal color, warm Results & Data Vital Signs (Past 12 Hours) Vital Signs Temp Pulse Resp BP Pulse Ox 07/03/18 14:10 78 12 93 07/03/18 07:19 36.6 C 86 18 110/67 90 07/03/18 07:15 87 16 91 07/03/18 04:12 36.6 C 99 H 18 112/65 92 07/03/18 03:00 92 H 16 91 Laboratory Results Short CBC 07/02/18 07/03/18 Range/Units 21:42 05:22 WBC 7.42 5.16 (4.8-10.8) K/uL Hgb 16.3 15.9 (14.0-18.0) g/dL Hct 45.6 44.0 (42-52) % Plt Count 211 206 (130-400) K/uL BMP 07/02/18 07/03/18 21:42 05:22 Sodium 143 142 Potassium 3.5 4.0 Chloride 108 H 111 H Carbon Dioxide 26 21 BUN 18 16 Creatinine 0.97 0.99 Glucose 112 H 195 H Calcium 9.2 9.4 Cardiac Enzymes 07/02/18 Range/Units 21:42 Troponin I < 0.015 (0-0.045) ng/ml Liver Function 07/02/18 07/03/18 Range/Units 21:42 05:22 Total Bilirubin 0.3 0.3 (0.2-1) mg/dl Direct Bilirubin < 0.1 (0-0.2) mg/dl AST 69 H 58 H (15-37) U/L ALT 99 H 91 H (12-78) U/L Alkaline Phosphatase 88 83 (45-117) U/L Albumin 3.3 L 3.3 L (3.4-5.0) gm/dl Diagnostic Findings CTA: No evidence for pulmonary embolus. The mid study of the peripheral vasculature due to patient motion. Mild emphysematous change.
[2018-07-03] MEDS: DOXYCYCLINE HYCLATE 100 MG CAP PO SCH (20:34)
[2018-07-03] MEDS: BUDESONIDE/FORMOTEROL FUMARATE 160/4.5 60 PUFFS/INHALER INH SCH (20:35)
[2018-07-04] MEDS: LEVALBUTEROL 1.25MG/0.5ML NEB INH SCH ×2 (01:34→07:10)
[2018-07-04] MEDS: IPRATROPIUM BROMIDE NEB SOLN 0.02% 2.5 ML VIAL INH SCH ×2 (01:35→07:10)
[2018-07-04 07:26] LABS: BUN Creatinine Ratio 18.2 (10-20); Calcium 8.4 mg/dl (8.5-10.1); Est GFR (African American) 107.8; Magnesium 2.2 mg/dl (1.8-2.4); Potassium 3.8 mmol/L (3.5-5.1)
[2018-07-04] MEDS: BUDESONIDE/FORMOTEROL FUMARATE 160/4.5 60 PUFFS/INHALER INH SCH (07:48)
[2018-07-04] MEDS: ENOXAPARIN INJ 40 MG/0.4 ML SYR SQ SCH (07:48)
[2018-07-04] MEDS: guaiFENesin 600 MG TABCR PO SCH (07:49)
[2018-07-04] MEDS: DOXYCYCLINE HYCLATE 100 MG CAP PO SCH (07:49)
[2018-07-04] MEDS: ATORVASTATIN 10 MG TAB PO SCH (07:49)
[2018-07-04] MEDS: predniSONE 20 MG TAB PO SCH (07:49)
[2018-07-04] MEDS: PREGABALIN 100 MG CAP PO SCH (07:51)
[2018-07-04] MEDS ORDERED: TIOTROPIUM BROMIDE 5 PUFF/90 MCG INH INH SCH (09:00)
[2018-07-04] MEDS ORDERED: INSULIN GLARGINE SOLOSTAR 100 UNITS/ML 3 ML PEN SC SCH (09:00)
[2018-07-04] MEDS ORDERED: PANTOprazole 40 MG TAB PO SCH (09:00)
[2018-07-04] MEDS: INSULIN ASPART 100 UNITS/ML 3 ML PEN SC SCH (09:12)
--- NOTE | 2018-07-04 12:51 | Hospitalist Progress Note ---
Date of Service July 04, 2018 Assessment & Plan (1) COPD exacerbation: Acute on chronic COPD Exacerbation Complicated bronchitis No signs of sepsis Ongoing tobacco use CTA:No evidence for pulmonary embolus. The mid study of the peripheral vasculature due to patient motion. Mild emphysematous change. Continue doxycycline, bronchodilators, prednisone Abx, Prednisone to complete 5 day course Appreciate Pulmonology Input Counselled to quit smoking GERD: Continue Ranitidine, PPI H/O Histoplasmosis As per records Ongoing Tobacco Abuse Nicotine patch Prediabetes Hb A1C:5.9 Continue ISS, basal Insulin DVT Px: Lovenox SQ Code Status Full code Disposition: Expected discharge home when stable Subjective Patient is seen and examined at bedside Patient feels much better today Less Cough Saturating 95% on room air No new complaints Discussed with Pulmonology today --Ok for discharge Denies any chest pain, SOB, nausea, dizziness, abdominal pain No other complaints Review of Systems Review of Systems: All systems reviewed & are unremarkable except as noted in HPI & below Physical Exam Physical Exam: Physical Exam: Vitals signs as noted above General Appearance:Moderately built and nourished, no apparent distress Head: normocephalic, Atraumatic Eyes: normal inspection, EOMI Neck: supple, Trachea midline Respiratory/Chest: Decreased breath sounds, CTA Cardiovascular: S1, S2, No murmur Abdomen/GI:Soft, Non tender, Bowel sounds present Extremities/Musculoskelatal:normal inspection, no edema Neurologic/Psych:AAOX3, grossly no focal neurological deficits Skin: normal color, warm Results & Data Vital Signs (Past 12 Hours) Vital Signs Temp Pulse Resp BP Pulse Ox 07/04/18 09:54 95 07/04/18 07:55 36.9 C 79 18 114/68 92 07/04/18 07:10 74 16 94 07/04/18 01:35 89 18 93 Laboratory Results [facility] 07/04/18 05:57 Sodium 143 Potassium 3.8 Chloride 111 H Carbon Dioxide 25 BUN 15 Creatinine 0.83 Glucose 100 H Calcium 8.4 L
--- NOTE | 2018-07-04 13:07 | Discharge Summary ---
Date of Service July 04, 2018 Admission HPI Per Admitting Provider History obtained from patient and records. Medical history significant for COPD, history of PE status post Coumadin, ongoing tobacco abuse, TAYLOR, histoplasmosis as per records. hyperlipidemia Recent confinement February 2018 for COPD exacerbation. Few days history of dry to sticky cough symptoms, pleuritic chest pain with shortness of breath. No known sick contacts, no fever, no chills. At the ER, patient received Solu-Medrol, azithromycin, and neb treatment for COPD exacerbation. 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 Admission Exam Per Admitting Provider GENERAL: uncomfortable, anxious, minimal respiratory distress SKIN: Normal color, warm HEENT: Partial alopecia, bespectacled, pink palpebral conjunctivae, no ptosis, dry buccal mucosa, nasal cannula in place NECK : Supple, no tenderness CHEST : Decreased breath sounds, expiratory wheezes, no tenderness HEART : Tachycardic, systolic murmur ABDOMEN: Some distention, nontender EXTREMITIES : No LE swelling/tenderness, no other conspicuous deformities noted NEUROLOGIC : Coherent, no facial asymmetry, no other gross focality Principal Diagnosis Discharge Information Discharge Diagnosis Acute COPD Exacerbation Discharge Goals Decrease discomfort,Improve function,Improve disease control Discharge Activity Limitations Resume your previous activity Discharge Data Allergies Allergy/AdvReac Type Severity Reaction Status Date / Time No Known Allergies Allergy Verified 07/02/18 22:35 Consultations 07/02/18 22:59 ED Decision to Admit Stat 07/03/18 02:27 Consult Pulmonology Routine Procedures Performed CTA: No evidence for pulmonary embolus. The mid study of the peripheral vasculature due to patient motion. Mild emphysematous change. Ordered Studies 07/02/18 23:55 CT angio chest PE protocol Urgent Hospital Course (1) COPD exacerbation: Acute on chronic COPD Exacerbation Complicated bronchitis No signs of sepsis Ongoing tobacco use CTA:No evidence for pulmonary embolus. The mid study of the peripheral vasculature due to patient motion. Mild emphysematous change. Continue doxycycline, bronchodilators, prednisone Abx, Prednisone to complete 5 day course Appreciate Pulmonology Input Counselled to quit smoking GERD: Continue Ranitidine, PPI H/O Histoplasmosis As per records Ongoing Tobacco Abuse Nicotine patch Prediabetes Hb A1C:5.9 Continue ISS, basal Insulin DVT Px: Lovenox SQ Code Status Full code Disposition: Expected discharge home when stable Total Time Total Time Spent Total Time Spent (In Minutes): 37 minutes Total Time Includes: Examination of the Patient, Discharge Planning, Medication Reconciliation, Communication With Other Providers and Other Discharge Plan Discharge Items Patient Disposition: Home - Self-Care Reason For Visit: COPD EXACERBATION Discharge Diagnosis: Acute COPD Exacerbation Discharge Goals: Decrease discomfort, Improve disease control and Improve function Activity: Resume your previous activity Exercise/Sports: Gradually increase as tolerated Non-emergency contact: Primary Care Provider and Vice President Of Product Marketing Call non-emergency contact if: you have any medication questions, your symptoms worsen, your pain is not controlled, your pain is worsening, your pain is unusual for you, your pain is concerning for you and you have a fever Follow-up/Referrals: Marie Weaver DO [Primary Care Provider] - Diet: Carb Consistent or DM2 and Heart Healthy Addtl Provider Instructions: Follow up with your PCP on 07/05/18 at 9:30AM Follow up with your Pulmnologist as recommended Complete the antibiotic and prednisone course as prescribed Seek immediate medical attention if your symptoms reoccur or worsen Quit smoking Tobacco as advised. NO SMOKING WHILE ON NICOTINE PATCH. Prescriptions: New doxycycline hyclate 100 mg Capsule 100 mg PO BID 3 Days Qty: 6 RF: 0 prednisone 20 mg Tablet 40 mg PO DAILY 3 Days Qty: 6 RF: 0 nicotine 21 mg/24 hr patch 24 hour 1 patch TD DAILY Qty: 28 RF: 0 nicotine (polacrilex) 2 mg gum 2 mg BUCCAL Q8H PRN (Reason: nicotine cravings) Qty: 100 RF: 1 Continued atorvastatin [Lipitor] 10 mg Tablet 10 mg PO QAM RF: 0 lorazepam [Ativan] 0.5 mg Tablet 0.5 mg PO Q8 PRN (Reason: Anxiety) RF: 0 ranitidine HCl [Zantac] 150 mg Tablet 150 mg PO BID RF: 0 Lyrica 100 mg Capsule 100 mg PO BID RF: 0 Anoro Ellipta 62.5-25 mcg/actuation Blister With Device 1 inh INHALATION QAM RF: 0 acetaminophen [Tylenol Extra Strength] 500 mg tablet 1,000 mg PO Q6H PRN (Reason: pain, moderate) Qty: 60 RF: 0 omeprazole 20 mg Capsule,Delayed Release(Dr/Ec) RF: 0 levalbuterol HCl 1.25 mg/0.5 mL Solution For Nebulization 1.25 mg INHALATION QID PRN (Reason: Shortness Of Breath Or Wheezing) RF: 0 Stand-Alone Forms: [facility] Discharge Orders: Discharge Order (Routine); Ordered 07/04/18 Ordered By: Demetri Law Admission Data Admit Date/Time: 07/03/18 01:11 Attending Provider: Demetri Law Admit Provider: Joselito Granda Primary Care Provider: Marie Weaver Other Providers: Joselito Granda ; José Luis Reeder Service: Medical Other Interventions: Discharge Summary Assessment (RN) Last Done: 07/04/18 13:12 Pending Studies at Discharge: No DC Date/Time DO NOT enter until pt leaves facility: 07/04/18 13:56
== END 2018-07-04 13:56 | disposition home or self-care (01) | DRG 192 ==
LOC: ED 21:15 → 4E 07-03 01:11

== ENCOUNTER 2019-01-14 21:54 | Inpatient (IN) ==
[2019-01-14] MEDS ORDERED: ALBUT/IPRATROP 3MG/0.5MG NEB 3 ML VIAL NEB STA ×3 (22:10→23:08)
--- NOTE | 2019-01-14 22:12 | Emergency Department Note ---
History of Present Illness General Chief complaint: Shortness of Breath/Dyspnea Stated complaint: SOB, COUGH, RUNNY NOSE Time Seen by Provider: 01/14/19 22:02 History of Present Illness Maximum Pain Intensity: 6 This is a 63-year-old male that presents to the emergency department via private vehicle with complaints of "shortness of breath, cough, runny nose". The patient notes about 1 week ago he began with a sore throat, then progressed to a cough followed that shortness of breath. He has a history of COPD and feels that this is an exacerbation of such. He has tried his at home medications for this without relief. He notes increasing shortness of breath to the point where he feels short of breath just at rest. He also notes some pain in the right anterior ribs from coughing so much. He rates that pain is a 6/10 that is worse with coughing and better with rest. He notes that he continues to smoke cigarettes but has tried to cut back. He denies any true chest pain. No fevers or chills. Home Medications Home Medications Medication Instructions Recorded Confirmed Type Anoro Ellipta 1 inh INHALATION QAM 10/16/17 01/14/19 History atorvastatin [Lipitor] 10 mg PO QPM 10/16/17 01/14/19 History lorazepam [Ativan] 0.5 mg PO Q8 PRN 10/16/17 01/14/19 History pregabalin [Lyrica] 100 mg PO BID 10/16/17 01/14/19 History ranitidine HCl [Zantac] 150 mg PO BID 10/16/17 01/14/19 History levalbuterol HCl 1.25 mg INHALATION QID PRN 02/13/18 01/14/19 History nebulizers 11/02/18 12/06/18 History Flutter Valve #1 ea 11/08/18 12/06/18 Rx sodium chloride 0.9 % for 1 ml INH Q2H PRN #90 ml 11/08/18 01/14/19 Rx nebulization syringe with needle 3 mL 25 x 5/8" #1 ea 11/21/18 12/06/18 Rx Allergies Allergy/AdvReac Type Severity Reaction Status Date / Time No Known Allergies Allergy Verified 01/14/19 22:31 Past Med/Surg History Medical History Anxiety (Chronic) COPD (chronic obstructive pulmonary disease) COPD, moderate (Chronic) "LAST PFT -08/30/11" Diaphragmatic hernia (Chronic) GERD (gastroesophageal reflux disease) (Chronic) GERD (gastroesophageal reflux disease) (Acute) High cholesterol (Acute) History of broken leg (Acute) HLD (hyperlipidemia) (Chronic) Left femoral shaft fracture (Acute) juan carlos placed Lung abscess Neuropathy (Chronic) Neuropathy (Acute) TAYLOR (obstructive sleep apnea) (Acute) Pneumothorax Thoracic spinal stenosis (Chronic) Tobacco use (Chronic) Surgical History H/O elbow surgery (Resolved) H/O elbow surgery (Acute) H/O exploratory thoracotomy (Resolved) "Left thoracotomy wedge biopsy of left upper lobe with excision of lesion or nodule & frozen section 2002" H/O exploratory thoracotomy (Acute) H/O hernia repair (Resolved) "[facility] incarcerated supraumbilical hernia repair open no mesh 02/17/01" H/O hernia repair (Acute) H/O total hip arthroplasty (Acute) left side History of hand surgery (Acute) History of repair of rotator cuff (Resolved) History of total replacement of both shoulder joints (Acute) Family History Other Leukemia Stroke Social History Preferred Language: Czech Communication Ability: Effective Paint Brush Maker Required: No Beliefs That Will Affect Care: None Current Living Situation: Spouse Feels Safe at Home: Yes Safety Concerns: Feels Safe At This Time Smoking Status: Current every day smoker Tobacco Type: cigarettes ; Cigarettes Per Day: 15 ; Do You Dip or Chew Tobacco: No ; Second Hand Exposure: No ; Tobacco Cessation Education Requested by Patient: No Hx Alcohol Use: No Hx Substance Use: No Review of Systems A total of 10 systems reviewed and were otherwise negative Physical Exam Vital Signs Vital Signs - 24 hr 01/14/19 21:56 01/14/19 22:33 01/14/19 23:05 Temperature 36.6 C Temperature Source Oral Pulse Rate 85 80 Pulse Rate [Right Finger] 78 Pulse Rate from SpO2 Sensor 79 Respiratory Rate 18 21 22 Respiratory Effort / Characteristics Non-Labored Spontaneous Non-Labored Respiratory Depth Normal Respiratory Pattern Regular Blood Pressure 127/80 110/55 L Blood Pressure [Right Arm] Blood Pressure Mean 95 71 Blood Pressure Mean [Right Arm] Blood Pressure Position Sitting Pulse Oximetry 96 95 93 Oxygen Delivery Method Room Air Room Air Sepsis Recent Fever Within 48 Hours No Sepsis Action Taken by Nursing No Action Required 01/14/19 23:07 01/14/19 23:21 01/15/19 00:00 Temperature Temperature Source Pulse Rate Pulse Rate [Right Finger] 78 78 Pulse Rate from SpO2 Sensor 82 Respiratory Rate 17 20 22 Respiratory Effort / Characteristics Non-Labored Non-Labored Respiratory Depth Normal Respiratory Pattern Blood Pressure 120/54 L Blood Pressure [Right Arm] 110/55 L Blood Pressure Mean 68 Blood Pressure Mean [Right Arm] 73 Blood Pressure Position Pulse Oximetry 94 91 91 Oxygen Delivery Method Room Air Room Air Sepsis Recent Fever Within 48 Hours Sepsis Action Taken by Nursing 01/15/19 01:00 01/15/19 02:00 Temperature Temperature Source Pulse Rate 86 82 Pulse Rate [Right Finger] Pulse Rate from SpO2 Sensor 86 82 Respiratory Rate 24 18 Respiratory Effort / Characteristics Respiratory Depth Respiratory Pattern Blood Pressure 105/59 L 107/56 L Blood Pressure [Right Arm] Blood Pressure Mean 70 77 Blood Pressure Mean [Right Arm] Blood Pressure Position Pulse Oximetry 91 92 Oxygen Delivery Method Sepsis Recent Fever Within 48 Hours Sepsis Action Taken by Nursing VITAL SIGNS - Vital signs and nursing notes were reviewed. Stable and afebrile. GENERAL -63-year-old male appearing his stated age who is in no acute distress. He is speaking in a few word sentences. Communicates well with provider and answers questions appropriately. SKIN - Without rashes. No meningeal or petechial rash. HEAD - NC/AT. EYES - PERRL with EOMI bilaterally. EARS - No deformities of external structures noted on gross examination bilaterally. NOSE - Midline and without cyanosis. No epistaxis or purulent drainage noted. MOUTH/OROPHARYNX - Without perioral cyanosis. Buccal mucosa pink and moist and without leukoplakia. Tongue midline with equal elevation of palate bilaterally. No tonsillar hypertrophy, erythema, or exudates noted. Good dentition noted. LUNGS - Chest wall symmetric with accessory muscle use but no central cyanosis. There is wheezing right greater than left. Decreased movement of air noted on examination. He is conversationally dyspneic. CARDIAC - RRR without definite murmur EXTREMITIES - No clubbing or peripheral cyanosis. No pretibial edema present.+5/5 strength noted in UE/LE bilaterally. NEUROLOGIC - Cranial nerves II through XII grossly intact. PSYCH - A&O, and cooperates fully with examiner. Pt is very pleasant and interacts well with examiner. Course Administered Medications Doxycycline Hyclate (Vibramycin) 100 mg PO BID YUN Stop: 01/22/19 08:59 Last Admin: 01/15/19 08:52 Dose: 100 mg Documented by: [id number] Enoxaparin Sodium (Lovenox) 40 mg SQ QAM YUN Stop: 02/14/19 08:59 Last Admin: 01/15/19 08:51 Dose: 40 mg Documented by: [id number] Famotidine (Pepcid) 20 mg PO BID YUN Stop: 02/14/19 08:59 Last Admin: 01/15/19 08:52 Dose: 20 mg Documented by: [id number] Lactated Ringer's (Lr) 1,000 mls @ 80 mls/hr IV .[id number] ONE Stop: 01/15/19 15:29 Last Admin: 01/15/19 03:51 Dose: 80 mls/hr Documented by: [id number] Insulin Aspart (Novolog Flexpen) 0 units SC ACHS YUN Stop: 02/14/19 02:59 Last Admin: 01/15/19 08:54 Dose: 2 units Documented by: [id number] Cosigned by: [id number] Admin: 01/15/19 03:41 Dose: Not Given Documented by: [id number] Cosigned by: [id number] Ipratropium [place] (Atrovent 0.02% 0.5mg/2.5ml) 0.5 mg INH Q6R YUN Stop: 02/14/19 06:59 Last Admin: 01/15/19 07:10 Dose: 0.5 mg Documented by: [id number] Admin: 01/15/19 03:40 Dose: 0.5 mg Documented by: [id number] Levalbuterol HCl (Xopenex 1.25mg/0.5ml Neb) 1.25 mg INH Q6R YUN Stop: 02/14/19 06:59 Last Admin: 01/15/19 07:10 Dose: 1.25 mg Documented by: [id number] Admin: 01/15/19 03:41 Dose: 1.25 mg Documented by: [id number] Prednisone (Prednisone) 40 mg PO DAILY [facility] Stop: 01/19/19 08:59 Last Admin: 01/15/19 08:52 Dose: 40 mg Documented by: [id number] Pregabalin (Lyrica) 100 mg PO BID YUN Stop: 02/14/19 08:59 Last Admin: 01/15/19 08:51 Dose: 100 mg Documented by: [id number] Discontinued Medications Albuterol (Duoneb) 3 ml NEB NOW STA Stop: 01/14/19 22:11 Last Admin: 01/14/19 22:32 Dose: 3 ml Documented by: [id number] Albuterol (Duoneb) 3 ml NEB NOW STA Stop: 01/14/19 23:06 Last Admin: 01/14/19 23:20 Dose: 3 ml Documented by: [id number] Albuterol (Duoneb) 3 ml NEB NOW STA Stop: 01/14/19 23:09 Last Admin: 01/14/19 23:20 Dose: 3 ml Documented by: [id number] Doxycycline Hyclate 100 mg/ (Dextrose) 110 mls @ 50 mls/hr IV NOW STA Stop: 01/15/19 01:46 Last Infusion: 01/15/19 02:29 Dose: 0 mls/hr Documented by: [id number] Admin: 01/15/19 00:07 Dose: 50 mls/hr Documented by: [id number] Insulin Glargine (Lantus Solostar Pen) 5 units SC NOW STA Stop: 01/15/19 03:01 Last Admin: 01/15/19 03:51 Dose: 5 units Documented by: [id number] Cosigned by: [id number] Ioversol (Optiray 320 125ml) 119 ml IV ONCE PRN PRN Reason: Interaction Checking Stop: 01/19/19 00:16 Last Admin: 01/15/19 00:18 Dose: 119 ml Documented by: [id number] Ketorolac Tromethamine (Toradol) 15 mg IV NOW STA Stop: 01/15/19 01:59 Last Admin: 01/15/19 02:07 Dose: 15 mg Documented by: [id number] Methylprednisolone (Solumedrol) 125 mg IV NOW STA Stop: 01/14/19 22:14 Last Admin: 01/14/19 22:30 Dose: 125 mg Documented by: [id number] Medical Decision Making Laboratory Data Result diagrams: 01/15/19 04:48 01/15/19 04:48 Lab Results 01/14/19 01/14/19 01/14/19 Range/Units 22:20 22:20 22:20 WBC 10.47 (4.8-10.8) K/uL RBC 5.09 (4.7-6.1) M/uL Hgb 16.6 (14.0-18.0) g/dL Hct 48.0 (42-52) % MCV 94.3 (80-100) fL MCH 32.6 (25-34) pg MCHC 34.6 (32-36) g/dL RDW Std Deviation 50.9 H (36.4-46.3) fL RDW Coeff of Jaz 14.6 H (11.5-14.5) % Plt Count 243 (130-400) K/uL MPV 11.0 H (7.4-10.4) fL Immature Gran % (Auto) 0.3 % Neut % (Auto) 57.1 % Lymph % (Auto) 29.4 % [place] % (Auto) 9.0 % Eos % (Auto) 4.0 % Baso % (Auto) 0.2 % Immature Gran # (Auto) 0.03 H (0.00-0.02) K/uL Neut # (Auto) 5.98 (1.4-6.5) K/uL Lymph # (Auto) 3.08 (1.2-3.4) K/uL [place] # (Auto) 0.94 H (0.11-0.59) K/uL Eos # (Auto) 0.42 (0-0.5) K/uL Baso # (Auto) 0.02 (0-0.2) K/uL PT 10.0 (9.0-12.0) Seconds INR 1.0 (0.9-1.1) APTT 24.8 (21.0-31.0) Seconds PTT Ratio 0.9 Sodium 138 (136-145) mmol/L Potassium 3.9 (3.5-5.1) mmol/L Chloride 107 (98-107) mmol/L Carbon Dioxide 26 (21-32) mmol/L Anion Gap 6.0 (3-11) BUN 25 H (7-18) mg/dl Creatinine 1.01 (0.6-1.4) mg/dl Est Cr Clr Drug Dosing 78.0 ml/min Est GFR ( Amer) 90.0 Est GFR (Non-Af Amer) 77.7 BUN/Creatinine Ratio 24.4 H (10-20) Glucose 104 H (70-99) mg/dl Calcium 9.3 (8.5-10.1) mg/dl Magnesium 2.2 (1.8-2.4) mg/dl Total Bilirubin 0.3 (0.2-1) mg/dl AST 53 H (15-37) U/L ALT 86 H (12-78) U/L Alkaline Phosphatase 108 (45-117) U/L Troponin I < 0.015 (0-0.045) ng/ml Total Protein 7.4 (6.4-8.2) gm/dl Albumin 3.5 (3.4-5.0) gm/dl Globulin 3.9 (2.5-4.0) gm/dl Albumin/Globulin Ratio 0.9 (0.9-2) Influenza Type A (PCR) (Neg) Influenza Type B (PCR) (Neg) 01/14/19 Range/Units 23:45 WBC (4.8-10.8) K/uL RBC (4.7-6.1) M/uL Hgb (14.0-18.0) g/dL Hct (42-52) % MCV (80-100) fL MCH (25-34) pg MCHC (32-36) g/dL RDW Std Deviation (36.4-46.3) fL RDW Coeff of Jaz (11.5-14.5) % Plt Count (130-400) K/uL MPV (7.4-10.4) fL Immature Gran % (Auto) % Neut % (Auto) % Lymph % (Auto) % [place] % (Auto) % Eos % (Auto) % Baso % (Auto) % Immature Gran # (Auto) (0.00-0.02) K/uL Neut # (Auto) (1.4-6.5) K/uL Lymph # (Auto) (1.2-3.4) K/uL [place] # (Auto) (0.11-0.59) K/uL Eos # (Auto) (0-0.5) K/uL Baso # (Auto) (0-0.2) K/uL PT (9.0-12.0) Seconds INR (0.9-1.1) APTT (21.0-31.0) Seconds PTT Ratio Sodium (136-145) mmol/L Potassium (3.5-5.1) mmol/L Chloride (98-107) mmol/L Carbon Dioxide (21-32) mmol/L Anion Gap (3-11) BUN (7-18) mg/dl Creatinine (0.6-1.4) mg/dl Est Cr Clr Drug Dosing ml/min Est GFR ( Amer) Est GFR (Non-Af Amer) BUN/Creatinine Ratio (10-20) Glucose (70-99) mg/dl Calcium (8.5-10.1) mg/dl Magnesium (1.8-2.4) mg/dl Total Bilirubin (0.2-1) mg/dl AST (15-37) U/L ALT (12-78) U/L Alkaline Phosphatase (45-117) U/L Troponin I (0-0.045) ng/ml Total Protein (6.4-8.2) gm/dl Albumin (3.4-5.0) gm/dl Globulin (2.5-4.0) gm/dl Albumin/Globulin Ratio (0.9-2) Influenza Type A (PCR) Neg for Influ A (Neg) Influenza Type B (PCR) Neg for Influ B (Neg) Imaging Data Radiologist's Impression: XR chest 1V portable HISTORY: cough, hx copd, productive COMPARISON: Chest 09/05/2018. FINDINGS: No pneumothorax. No pleural effusions. Emphysema and chronic interstitial thickening persists. No new focal lung consolidations to suggest pneumonia. No evidence for pulmonary edema. The heart is normal in size. Suture material again noted within the left upper lobe consistent with postoperative change. There is a left shoulder prosthesis. Postoperative changes again noted within the proximal right humerus. Hazy appearance to the left lung base persist and favors postoperative change. IMPRESSION: No significant change compared to the prior study. No acute process. Electronically signed by: Asim Peck M.D. 01/14/2019 10:37 PM [facility] Narrative Patient was seen and evaluated as above in room B12. Review was performed of nursing notes and vital signs. After obtaining a thorough history and physical examination the above work up was performed. The patient presents to us with a history of COPD, currently smoking cigarettes. He is conversationally dyspneic. I did observe the patient ambulating the department and he was quite short of breath. In speaking with him he has increased work of breathing. He has a well-documented history of COPD. He was given breathing treatments x3 as well as Solu-Medrol. Increased work of breathing persisted. Again he is conversationally dyspneic. Although he notes a history of blood clots, he notes this does not feel similar rather this feels similar to his previous COPD exacerbations. Benefit versus risk of CT of the chest discussed and through shared decision-making with the patient at this time will refrain. I do believe that further evaluation and management in inpatient setting is warranted given the patient's persistence of symptoms despite at home regimen of medications and medicines here in the emergency department. Case discussed with the hospitalist. Please refer to further documentation regarding his stay. Case was discussed with the attending physician. I attest that I have personally reviewed the patient medication list. I attest that I have reviewed the patient's blood pressure and it was found to be appropriate GCS: 15 In the evaluation and treatment of this patient, the following differential diagnoses were considered: RI, ASC, Dysrhythmia, Angina, Mediastinitis, GERD, Esophagitis, PE, Pneumonia, Bronchitis, Costochondritis, Rib Fracture, Zoster. Impression & Plan Acute exacerbation of chronic obstructive airways disease, Dyspnea Discharge Plan Visit Data *Final* Discharge Date/Time: 01/15/19 02:36 Chief Complaint: Shortness of Breath/Dyspnea Stated Complaint: SOB, COUGH, RUNNY NOSE ED Provider: Wayne Patel ED Midlevel Provider: Luis Angel Singh Discharge Problem: Acute exacerbation of chronic obstructive airways disease, Dyspnea Patient Disposition: Admitted As Inpatient Condition: Good Discharge Instructions Interventions: ED Discharge Assessment Last Done: 01/15/19 02:36
[2019-01-14] MEDS ORDERED: methylPREDNISolone 125 MG/2 ML VIAL IV STA (22:13)
[2019-01-14 22:30] LABS: Basophils # (auto) 0.02 K/uL (0-0.2); Basophils % (auto) 0.2 %; Eosinophils # (auto) 0.42 K/uL (0-0.5); Hemoglobin 16.6 g/dL (14.0-18.0); Immature Granulocytes # (auto) 0.03 K/uL (0.00-0.02); Immature Granulocytes % (auto) 0.3 %; Lymphocytes # (auto) 3.08 K/uL (1.2-3.4); Lymphocytes % (auto) 29.4 %; Mean Corpuscular Hemoglobin 32.6 pg (25-34); Mean Corpuscular Hgb Conc 34.6 g/dL (32-36); Mean Corpuscular Volume 94.3 fL (80-100); Monocytes # (auto) 0.94 K/uL (0.11-0.59); Neutrophils # (auto) 5.98 K/uL (1.4-6.5); Neutrophils % (auto) 57.1 %; Platelet Count 243 K/uL (130-400); RDW Coefficient of Variation 14.6 % (11.5-14.5); RDW Standard Deviation 50.9 fL (36.4-46.3); Red Blood Count 5.09 M/uL (4.7-6.1); White Blood Count 10.47 K/uL (4.8-10.8)
--- NOTE | 2019-01-14 22:39 | XRay Report ---
XR chest 1V portable HISTORY: cough, hx copd, productive COMPARISON: Chest 09/05/2018. FINDINGS: No pneumothorax. No pleural effusions. Emphysema and chronic interstitial thickening persis ts. No new focal lung consolidations to suggest pneumonia. No evidence for pulmonary edema. The heart is normal in size. Suture material again noted within the left upper lobe consistent with postoperat pankaj change. There is a left shoulder prosthesis. Postoperative changes again noted within the proxima l right humerus. Hazy appearance to the left lung base persist and favors postoperative change. IMPRESSION: No significant change compared to the prior study. No acute process. Electronically signed by: Asim Peck M.D. 01/14/2019 10:37 PM
[2019-01-14 22:40] LABS: Partial Thromboplastin Ratio 0.9; Partial Thromboplastin Time 24.8 Seconds (21.0-31.0)
[2019-01-14 22:53] LABS: Alanine Aminotransferase 86 U/L (12-78); Albumin Level 3.5 gm/dl (3.4-5.0); Aspartate Aminotransferase 53 U/L (15-37); BUN Creatinine Ratio 24.4 (10-20); Blood Urea Nitrogen 25 mg/dl (7-18); Calcium 9.3 mg/dl (8.5-10.1); Carbon Dioxide 26 mmol/L (21-32); Chloride 107 mmol/L (98-107); Est GFR (Non-African American) 77.7; Glucose 104 mg/dl (70-99); Magnesium 2.2 mg/dl (1.8-2.4); Potassium 3.9 mmol/L (3.5-5.1); Sodium 138 mmol/L (136-145)
[2019-01-14 22:58] LABS: Albumin Globulin Ratio 0.9 (0.9-2); Alkaline Phosphatase 108 U/L (45-117); Bilirubin,Total 0.3 mg/dl (0.2-1); Globulin 3.9 gm/dl (2.5-4.0); Total Protein 7.4 gm/dl (6.4-8.2); Troponin I < 0.015 ng/ml (0-0.045)
[2019-01-14] MEDS ORDERED: DOXYCYCLINE HYCLATE 100 MG in DEXTROSE 5% 100 ML IV STA (23:35)
--- NOTE | 2019-01-14 23:47 | Emergency Department Note ---
ED Visit Note Patient was seen by our PA/[employer] T[employer]ION TE[employer]. I was involved in the patient's care and did evaluate the patient myself. I was involved in the care throughout the ER stay. The patient presents with shortness of breath. He appears to be suffering from an exacerbation of COPD. He did receive 3 nebulizer treatments and is still winded. Chest film is unremarkable. Given his dyspnea and lack of improvement here in the ED, a hospital stay was felt warranted. .
[2019-01-15] MEDS ORDERED: OPTIRAY 320 125ml IV PRN (00:17)
[2019-01-15 00:30] LABS: Influenza A virus by PCR Neg for Influ A (Neg); Influenza B virus by PCR Neg for Influ B (Neg)
[2019-01-15] MEDS ORDERED: KETOROLAC TROMETHAMINE 15 MG/ML VIAL IV STA (01:58)
--- NOTE | 2019-01-15 02:00 | History & Physical Report ---
Date of Service January 15, 2019 Assessment & Plan (1) COPD exacerbation: (1) COPD exacerbation: Complicated bronchitis No sepsis history of PE status post Coumadin ongoing tobacco abuse, TAYLOR histoplasmosis as per records Hyperglycemia likely secondary to prediabetes, hemoglobin A1c of 5.15 Jun 2018 GMF Doxycycline nebs, prednisone course Pulmonary consult RE COPD exacerbation (Patient known to Dr. Reeder.) Basal insulin, ISS BG goal [id number], update hemoglobin A1c Nicotine patch as needed DVT prophylaxis. Lovenox subcu Full code. History of Present Illness Chief Complaint: Cough, S OB Primary Care Provider: Marie Weaver DO History obtained from patient and records. Medical history significant for COPD, history of PE status post Coumadin, ongoing tobacco abuse, TAYLOR, histoplasmosis as per records, hyperlipidemia Recent confinement June 2018 for COPD exacerbation. 1 week history of junky cough symptoms productive of green sputum, pleuritic right-sided chest pain from coughing, increasing shortness of breath. No fever, no chills, no known sick contacts, no aspiration. At the ER, patient received Solu-Medrol and neb treatment for COPD exacerbation. 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 Allergies Allergy/AdvReac Type Severity Reaction Status Date / Time No Known Allergies Allergy Verified 01/14/19 22:31 Home Medications Home Medications Medication Instructions Recorded Confirmed Type Anoro Ellipta 1 inh INHALATION QAM 10/16/17 01/14/19 History atorvastatin [Lipitor] 10 mg PO QPM 10/16/17 01/14/19 History lorazepam [Ativan] 0.5 mg PO Q8 PRN 10/16/17 01/14/19 History pregabalin [Lyrica] 100 mg PO BID 10/16/17 01/14/19 History ranitidine HCl [Zantac] 150 mg PO BID 10/16/17 01/14/19 History levalbuterol HCl 1.25 mg INHALATION QID PRN 02/13/18 01/14/19 History nebulizers 11/02/18 12/06/18 History Flutter Valve #1 ea 11/08/18 12/06/18 Rx sodium chloride 0.9 % for 1 ml INH Q2H PRN #90 ml 11/08/18 01/14/19 Rx nebulization syringe with needle 3 mL 25 x 5/8" #1 ea 11/21/18 12/06/18 Rx Past Med/Surg History Medical History (Updated 01/15/19 @ 11:52 by Demetri Alegre MD) Anxiety (Chronic) COPD (chronic obstructive pulmonary disease) COPD exacerbation COPD, moderate (Chronic) "LAST PFT -08/30/11" Diaphragmatic hernia (Chronic) GERD (gastroesophageal reflux disease) (Chronic) GERD (gastroesophageal reflux disease) (Acute) High cholesterol (Acute) History of broken leg (Acute) HLD (hyperlipidemia) (Chronic) Left femoral shaft fracture (Acute) juan carlos placed Lung abscess Morbid obesity due to excess calories Morbid obesity due to excess calories Neuropathy (Chronic) Neuropathy (Acute) TAYLOR (obstructive sleep apnea) (Acute) Pneumothorax Post-nasal drip Thoracic spinal stenosis (Chronic) Tobacco abuse Tobacco use (Chronic) Viral upper respiratory illness Surgical History H/O elbow surgery (Resolved) H/O elbow surgery (Acute) H/O exploratory thoracotomy (Resolved) "Left thoracotomy wedge biopsy of left upper lobe with excision of lesion or nodule & frozen section 2002" H/O exploratory thoracotomy (Acute) H/O hernia repair (Resolved) "[facility] incarcerated supraumbilical hernia repair open no mesh 02/17/01" H/O hernia repair (Acute) H/O total hip arthroplasty (Acute) left side History of hand surgery (Acute) History of repair of rotator cuff (Resolved) History of total replacement of both shoulder joints (Acute) Family History Other Leukemia Stroke Social History Preferred Language: Nauruan Communication Ability: Effective Survey Party Chief Required: No Beliefs That Will Affect Care: None Current Living Situation: Spouse Feels Safe at Home: Yes Safety Concerns: Feels Safe At This Time Smoking Status: Current every day smoker Tobacco Type: cigarettes ; Cigarettes Per Day: 15 ; Do You Dip or Chew Tobacco: No ; Second Hand Exposure: No ; Tobacco Cessation Education Requested by Patient: No Hx Alcohol Use: No Hx Substance Use: No Review of Systems Review of Systems: As per HPI, all 10 systems reviewed, all other ROS negative Physical Exam Physical Exam: GENERAL: Comfortable, slightly anxious, obese, no respiratory distress, coughing with deep inspiration SKIN: Normal color, warm HEENT: Partial alopecia, bespectacled, pink palpebral conjunctivae, no ptosis, dry buccal mucosa NECK : Supple, no tenderness CHEST : Decreased breath sounds, occasional expiratory wheezes, no tenderness HEART : RRR, no obvious murmurs ABDOMEN: Some distention, nontender EXTREMITIES : No LE swelling/tenderness, no other conspicuous deformities noted NEUROLOGIC : Coherent, no facial asymmetry, no other gross focality Results & Data Vital Signs (Past 12 Hours) Vital Signs Temp Pulse Pulse Resp BP BP Pulse Ox 01/15/19 01:00 86 24 105/59 L 91 01/15/19 00:00 22 120/54 L 91 01/14/19 23:21 78 20 91 01/14/19 23:07 78 17 110/55 L 94 01/14/19 23:05 80 22 110/55 L 93 01/14/19 22:33 78 21 95 01/14/19 21:56 36.6 C 85 18 127/80 96 Laboratory Results Laboratory Results WBC 10.47 K/uL (4.8-10.8) 01/14/19 22:20 RBC 5.09 M/uL (4.7-6.1) 01/14/19 22:20 Hgb 16.6 g/dL (14.0-18.0) 01/14/19 22:20 Hct 48.0 % (42-52) 01/14/19 22:20 MCV 94.3 fL (80-100) 01/14/19 22:20 MCH 32.6 pg (25-34) 01/14/19 22:20 MCHC 34.6 g/dL (32-36) 01/14/19 22:20 RDW Std Deviation 50.9 fL (36.4-46.3) H 01/14/19 22:20 RDW Coeff of Jaz 14.6 % (11.5-14.5) H 01/14/19 22:20 Plt Count 243 K/uL (130-400) 01/14/19 22:20 MPV 11.0 fL (7.4-10.4) H 01/14/19 22:20 Immature Gran % (Auto) 0.3 % 01/14/19 22:20 Neut % (Auto) 57.1 % 01/14/19 22:20 Lymph % (Auto) 29.4 % 01/14/19 22:20 [place] % (Auto) 9.0 % 01/14/19 22:20 Eos % (Auto) 4.0 % 01/14/19 22:20 Baso % (Auto) 0.2 % 01/14/19 22:20 Immature Gran # (Auto) 0.03 K/uL (0.00-0.02) H 01/14/19 22:20 Neut # (Auto) 5.98 K/uL (1.4-6.5) 01/14/19 22:20 Lymph # (Auto) 3.08 K/uL (1.2-3.4) 01/14/19 22:20 [place] # (Auto) 0.94 K/uL (0.11-0.59) H 01/14/19 22:20 Eos # (Auto) 0.42 K/uL (0-0.5) 01/14/19 22:20 Baso # (Auto) 0.02 K/uL (0-0.2) 01/14/19 22:20 PT 10.0 Seconds (9.0-12.0) 01/14/19 22:20 INR 1.0 (0.9-1.1) 01/14/19 22:20 APTT 24.8 Seconds (21.0-31.0) 01/14/19 22:20 PTT Ratio 0.9 01/14/19 22:20 Sodium 138 mmol/L (136-145) 01/14/19 22:20 Potassium 3.9 mmol/L (3.5-5.1) 01/14/19 22:20 Chloride 107 mmol/L (98-107) 01/14/19 22:20 Carbon Dioxide 26 mmol/L (21-32) 01/14/19 22:20 Anion Gap 6.0 (3-11) 01/14/19 22:20 BUN 25 mg/dl (7-18) H 01/14/19 22:20 Creatinine 1.01 mg/dl (0.6-1.4) 01/14/19 22:20 Est Cr Clr Drug Dosing 78.0 ml/min 01/14/19 22:20 Est GFR ( Amer) 90.0 01/14/19 22:20 Est GFR (Non-Af Amer) 77.7 01/14/19 22:20 BUN/Creatinine Ratio 24.4 (10-20) H 01/14/19 22:20 Glucose 104 mg/dl (70-99) H 01/14/19 22:20 Calcium 9.3 mg/dl (8.5-10.1) 01/14/19 22:20 Magnesium 2.2 mg/dl (1.8-2.4) 01/14/19 22:20 Total Bilirubin 0.3 mg/dl (0.2-1) 01/14/19 22:20 AST 53 U/L (15-37) H 01/14/19 22:20 ALT 86 U/L (12-78) H 01/14/19 22:20 Alkaline Phosphatase 108 U/L (45-117) 01/14/19 22:20 Troponin I < 0.015 ng/ml (0-0.045) 01/14/19 22:20 Total Protein 7.4 gm/dl (6.4-8.2) 01/14/19 22:20 Albumin 3.5 gm/dl (3.4-5.0) 01/14/19 22:20 Globulin 3.9 gm/dl (2.5-4.0) 01/14/19 22:20 Albumin/Globulin Ratio 0.9 (0.9-2) 01/14/19 22:20 Influenza Type A (PCR) Neg for Influ A (Neg) 01/14/19 23:45 Influenza Type B (PCR) Neg for Influ B (Neg) 01/14/19 23:[address] chest initial read multiple small mediastinal lymph nodes. No pleural effusion. Left and right coronary calcifications. No pulmonary embolism. EKG as per my interpretation rate 80, NSR, RAD, incomplete RBBB, no ischemia
[2019-01-15] MEDS ORDERED: GLUCOSE 10 TABS/TUBE PO PRN (03:00)
[2019-01-15] MEDS ORDERED: MoRPHine SULFATE 4 MG/ML 1 ML CARP\\VIAL IV PRN (03:00)
[2019-01-15] MEDS ORDERED: DEXTROSE 50% 50 ML SYRINGE IV PRN (03:00)
[2019-01-15] MEDS ORDERED: ACETAMINOPHEN 325 MG TAB PO PRN (03:00)
[2019-01-15] MEDS ORDERED: CARBOHYDRATES FOR HYPOGLYCEMIA PO PRN (03:00)
[2019-01-15] MEDS ORDERED: LORazepam 0.5 MG TAB PO PRN (03:00)
[2019-01-15] MEDS ORDERED: LACTATED RINGER'S 1,000 ML IV ONE (03:00)
[2019-01-15] MEDS ORDERED: GLUCOSE 40% GEL 15 GM TUBE PO PRN (03:00)
[2019-01-15] MEDS ORDERED: TRAMADOL HCL 50 MG TABLET PO PRN (03:00)
[2019-01-15] MEDS ORDERED: PROMETHAZINE HCL 12.5 MG in SODIUM CHLORIDE 0.9% 50 ML IV PRN (03:00)
[2019-01-15] MEDS ORDERED: GLUCAGON FOR INJ 1 MG VIAL SQ PRN (03:00)
[2019-01-15] MEDS ORDERED: INSULIN GLARGINE SOLOSTAR 100 UNITS/ML 3 ML PEN SC STA (03:00)
[2019-01-15] MEDS: IPRATROPIUM BROMIDE NEB SOLN 0.02% 2.5 ML VIAL INH SCH ×4 (03:40→19:14)
[2019-01-15] MEDS: LEVALBUTEROL 1.25MG/0.5ML NEB INH SCH ×4 (03:41→19:14)
[2019-01-15] MEDS: INSULIN ASPART 100 UNITS/ML 3 ML PEN SC SCH ×5 (03:41→20:45)
[2019-01-15 05:06] LABS: Hematocrit (blood only) 46.3 % (42-52); Hemoglobin 15.9 g/dL (14.0-18.0); Immature Granulocytes # (auto) 0.01 K/uL (0.00-0.02); Immature Granulocytes % (auto) 0.1 %; Lymphocytes # (auto) 0.68 K/uL (1.2-3.4); Lymphocytes % (auto) 8.3 %; Mean Corpuscular Hemoglobin 32.2 pg (25-34); Mean Corpuscular Hgb Conc 34.3 g/dL (32-36); Mean Corpuscular Volume 93.7 fL (80-100); Mean Platelet Volume 11.4 fL (7.4-10.4); Monocytes # (auto) 0.08 K/uL (0.11-0.59); Neutrophils # (auto) 7.47 K/uL (1.4-6.5); Neutrophils % (auto) 90.6 %; Platelet Count 226 K/uL (130-400); RDW Coefficient of Variation 14.6 % (11.5-14.5); Red Blood Count 4.94 M/uL (4.7-6.1); White Blood Count 8.24 K/uL (4.8-10.8)
[2019-01-15 05:43] LABS: BUN Creatinine Ratio 21.8 (10-20); Calcium 8.7 mg/dl (8.5-10.1); Est GFR (African American) 85.9; Est GFR (Non-African American) 74.1; Potassium 3.7 mmol/L (3.5-5.1)
--- NOTE | 2019-01-15 06:38 | CT Scan Report ---
CT angio chest PE protocol CT DOSE: 777.07 mGy.cm HISTORY: Chest pain. Dyspnea. PE TECHNIQUE: Multiaxial CT images of the chest were performed following the intravenous administration of contrast to evaluate the pulmonary arteries. Maximal intensity projection images were also obtaine d. A dose lowering technique was utilized adhering to the principles of ALARA. COMPARISON STUDY: 09/05/2018 FINDINGS: There is a normal caliber thoracic aorta with no evidence for dissection. There is no evide nce for pulmonary embolus. No pleural effusions. No pneumothorax. The liver and spleen are unremarkab le. No mediastinal or hilar lymphadenopathy. The central airways are patent. The lungs demonstrate ch ronic basilar interstitial prominence. IMPRESSION: No evidence for pulmonary embolus. Chronic parenchymal change The above report was generated using voice recognition software. It may contain grammatical, syntax or spelling errors. Electronically signed by: Regis Menchaca M.D. 01/15/2019 6:37 AM
[2019-01-15] MEDS ORDERED: XOPENEX/ATROVENT 1.25mg/0.5MG NEB COMBO NEB SCH (07:00)
[2019-01-15] MEDS: PREGABALIN 100 MG CAP PO SCH ×2 (08:51→20:44)
[2019-01-15] MEDS: ENOXAPARIN INJ 40 MG/0.4 ML SYR SQ SCH (08:51)
[2019-01-15] MEDS: FAMOTIDINE 20 MG TAB PO SCH ×2 (08:52→20:46)
[2019-01-15] MEDS: predniSONE 20 MG TAB PO SCH (08:52)
[2019-01-15] MEDS ORDERED: DOXYCYCLINE HYCLATE 100 MG CAP PO SCH (09:00)
--- NOTE | 2019-01-15 11:53 | Pulmonary Consultation ---
Date of Consultation January 15, 2019 Assessment & Plan (1) COPD exacerbation: Patient appears to be in a mild COPD exacerbation. He continues to smoke. I would highly advise complete smoking cessation. Please give the patient the number to the quit line and refer him to smoking cessation classes. He may also benefit from pulmonary rehab. He seems reluctant to travel and notes that his finances are an issue. I would recommend switching him to a combined inhaled corticosteroid with a Long-acting beta agonist and a long acting muscarinic antagonist such as Trelegy. He does have some mild peripheral eosinophilia which may respond better to an inhaled corticosteroid combination inhaler. He is not a candidate for Roflumilast given that his COPD and airflow obstruction is not severe. He would benefit more from smoking cessation. I do not think he needs antibiotics at this time as he has no evidence of pneumonia on his CT scan or his clinical findings. I think he has some degree of postnasal drip which could be remedied with nasal steroid sprays and antihistamines. Weight loss is also advised given his obesity. Continue 40 mg prednisone for 5 days. No taper is required. Pulmonary will sign off. Please call with questions. Thank you. (2) Viral upper respiratory illness: (3) Tobacco abuse: (4) Morbid obesity due to excess calories: (5) Post-nasal drip: History of Present Illness Attending Physician: Preston Garcia MD History of Present Illness This is a 63-year-old male with a past medical history of hypertension, COPD, chronic hypoxemic respiratory failure and continued tobacco abuse disorder presents to due to shortness of breath and productive cough. Patient notes that his symptoms began approximately 1 week ago with upper airway congestion.He has a productive cough now and he gets short of breath with limited activity.He denies any chest pain. He denies any fevers. He does endorse some chills.He is well-known to the pulmonary clinic and is seen by multiple providers in the clinic. He notes that he saw his family on and his grandkids who were sick with an upper respiratory illness.He continues to smoke about 5 to 6 cigarettes a day. He has smoked since the age of 9. He has smoked upwards of 2 packs/day. He says that he cannot afford nicotine patches. He tried Chantix in the past which made him hallucinate.He is not interested in smoking cessation classes. He has been started on prednisone and doxycycline here in the hospital. He had a CT chest which was relatively unremarkable for acute findings. He does have emphysema. His latest PFT suggest an FEV1 of 71% predicted and a DLCO of 53% predicted which is consistent with moderate airflow obstruction and a moderately reduced DLCO.He tells me that he was previously on Roflumilast which helped his symptoms, but was taken off this medication for unclear reasons. He is on Anoro Ellipta at home. He lives in a house with his that is old. They have 2 dogs and 2 cats. They have wood pellet heating at home. Allergies Allergy/AdvReac Type Severity Reaction Status Date / Time No Known Allergies Allergy Verified 01/14/19 22:31 Home Medications Home Medications Medication Instructions Recorded Confirmed Type Anoro Ellipta 1 inh INHALATION QAM 10/16/17 01/14/19 History atorvastatin [Lipitor] 10 mg PO QPM 10/16/17 01/14/19 History lorazepam [Ativan] 0.5 mg PO Q8 PRN 10/16/17 01/14/19 History pregabalin [Lyrica] 100 mg PO BID 10/16/17 01/14/19 History ranitidine HCl [Zantac] 150 mg PO BID 10/16/17 01/14/19 History levalbuterol HCl 1.25 mg INHALATION QID PRN 02/13/18 01/14/19 History nebulizers 11/02/18 12/06/18 History Flutter Valve #1 ea 11/08/18 12/06/18 Rx sodium chloride 0.9 % for 1 ml INH Q2H PRN #90 ml 11/08/18 01/14/19 Rx nebulization syringe with needle 3 mL 25 x 5/8" #1 ea 11/21/18 12/06/18 Rx Patient History Medical History Anxiety (Chronic) COPD (chronic obstructive pulmonary disease) COPD, moderate (Chronic) "LAST PFT -08/30/11" Diaphragmatic hernia (Chronic) GERD (gastroesophageal reflux disease) (Chronic) GERD (gastroesophageal reflux disease) (Acute) High cholesterol (Acute) History of broken leg (Acute) HLD (hyperlipidemia) (Chronic) Left femoral shaft fracture (Acute) juan carlos placed Lung abscess Neuropathy (Chronic) Neuropathy (Acute) TAYLOR (obstructive sleep apnea) (Acute) Pneumothorax Thoracic spinal stenosis (Chronic) Tobacco use (Chronic) Surgical History H/O elbow surgery (Resolved) H/O elbow surgery (Acute) H/O exploratory thoracotomy (Resolved) "Left thoracotomy wedge biopsy of left upper lobe with excision of lesion or nodule & frozen section 2002" H/O exploratory thoracotomy (Acute) H/O hernia repair (Resolved) "[facility] incarcerated supraumbilical hernia repair open no mesh 02/17/01" H/O hernia repair (Acute) H/O total hip arthroplasty (Acute) left side History of hand surgery (Acute) History of repair of rotator cuff (Resolved) History of total replacement of both shoulder joints (Acute) Family History Other Leukemia Stroke Social History Preferred Language: French Communication Ability: Effective Manager Cardiac Required: No Beliefs That Will Affect Care: None Current Living Situation: Spouse Feels Safe at Home: Yes Safety Concerns: Feels Safe At This Time Smoking Status: Current every day smoker Tobacco Type: cigarettes ; Cigarettes Per Day: 15 ; Do You Dip or Chew Tobacco: No ; Second Hand Exposure: No ; Tobacco Cessation Education Requested by Patient: No Hx Alcohol Use: No Hx Substance Use: No Review of Systems Review of Systems: All systems reviewed & are unremarkable except as noted in HPI & below Physical Exam Constitutional: WD/WN, vitals as above Patient is in no apparent distress. He is laying down in his bed. Eyes: PERRL, conjunctivae normal, anicteric sclerae ENMT: external ear and nose normal, oropharynx normal Neck: trachea midline, no thyromegaly Respiratory: normal respiratory effort, lungs clear to auscultation Cardiovascular: RRR, no murmur, no edema Gastrointestinal (Abdomen): normal bowel sounds, soft, nontender, no hepatosplenomegaly Musculoskeletal: Mild clubbing noted bilaterally. Skin: no rashes, warm and dry Neurologic: PERRL, EOMI, accommodation nl, no face palsy, no dysarthria Psychiatric: A+Ox3, euthymic affect Results & Data Vital Signs (Past 12 Hours) Vital Signs Temp Pulse Pulse Resp BP BP Pulse Ox 01/15/19 07:28 97.5 F L 93 H 16 112/69 94 01/15/19 07:10 85 16 90 01/15/19 03:41 78 18 93 01/15/19 02:50 97.9 F 80 14 113/71 91 01/15/19 02:00 82 18 107/56 L 92 01/15/19 01:00 86 24 105/59 L 91 01/15/19 00:00 22 120/54 L 91 I personally reviewed the patient's pertinent labs, chest imaging and prior pulmonary function testing. PG Care Time/CCT Total # of Minutes Spent Total Time Spent with Patient: Total time spent is greater than 50% in coordination of care (as documented) at patient's floor/unit and/or counseling patient:
[2019-01-15] MEDS: BENZONATATE 100 MG CAPSULE PO PRN (15:23)
[2019-01-15] MEDS: HYDROCODONE/HOMATROPINE SYRUP 5MG/1.5MG 5ML UDP PO PRN (17:27)
--- NOTE | 2019-01-15 20:01 | Hospitalist Progress Note ---
Date of Service January 15, 2019 Assessment & Plan (1) COPD exacerbation: (1) COPD exacerbation CXR: no pneumonia Nebs, Prednisone change Ellipta to Trelegy-- will confirm insurance coverage with [employer] other diagnoses and plan of care as per Dr. Granda's notes Subjective ff up for COPD exacerbation seen resting in chair not in distress reports breathing is improved today compared to yesterday still has dry cough, reports right chest pain with cough no other symptoms Review of Systems Review of Systems: All systems reviewed & are unremarkable except as noted in HPI & below Physical Exam Physical Exam: General- oriented x 3, not in distress, speaks in sentences with no effort or accessory muscle use Eyes- anicteric Neck- no JVD Lungs- somewhat diminished but clear breath sounds bilaterally Heart- normal rate, regular rhythm; no murmurs Abdomen- normal bowel sounds, nondistended, soft, nontender Extremities- no pretibial edema, no calf tenderness Neuro- alert, oriented x 3; no gross focal neurologic deficits Skin- warm & dry Results & Data Vital Signs (Past 12 Hours) Vital Signs Temp Pulse Resp BP Pulse Ox 01/15/19 19:15 98 H 18 93 01/15/19 15:38 36.6 C 102 H 17 109/67 95 01/15/19 13:22 97 H 18 93 Laboratory Results Laboratory Results - last 24 hr 01/14/19 01/14/19 01/14/19 22:20 22:20 22:20 WBC 10.47 RBC 5.09 Hgb 16.6 Hct 48.0 MCV 94.3 MCH 32.6 MCHC 34.6 RDW Std Deviation 50.9 H RDW Coeff of Jaz 14.6 H Plt Count 243 MPV 11.0 H Immature Gran % (Auto) 0.3 Neut % (Auto) 57.1 Lymph % (Auto) 29.4 [place] % (Auto) 9.0 Eos % (Auto) 4.0 Baso % (Auto) 0.2 Immature Gran # (Auto) 0.03 H Neut # (Auto) 5.98 Lymph # (Auto) 3.08 [place] # (Auto) 0.94 H Eos # (Auto) 0.42 Baso # (Auto) 0.02 PT 10.0 INR 1.0 APTT 24.8 PTT Ratio 0.9 Sodium 138 Potassium 3.9 Chloride 107 Carbon Dioxide 26 Anion Gap 6.0 BUN 25 H Creatinine 1.01 Est Cr Clr Drug Dosing 78.0 Est GFR ( Amer) 90.0 Est GFR (Non-Af Amer) 77.7 BUN/Creatinine Ratio 24.4 H Glucose 104 H POC Glucose Calcium 9.3 Magnesium 2.2 Total Bilirubin 0.3 AST 53 H ALT 86 H Alkaline Phosphatase 108 Troponin I < 0.015 Total Protein 7.4 Albumin 3.5 Globulin 3.9 Albumin/Globulin Ratio 0.9 Influenza Type A (PCR) Influenza Type B (PCR) 01/14/19 01/15/19 01/15/19 23:45 03:35 04:48 WBC 8.24 RBC 4.94 Hgb 15.9 Hct 46.3 MCV 93.7 MCH 32.2 MCHC 34.3 RDW Std Deviation 50.0 H RDW Coeff of Jaz 14.6 H Plt Count 226 MPV 11.4 H Immature Gran % (Auto) 0.1 Neut % (Auto) 90.6 Lymph % (Auto) 8.3 [place] % (Auto) 1.0 Eos % (Auto) 0.0 Baso % (Auto) 0.0 Immature Gran # (Auto) 0.01 Neut # (Auto) 7.47 H Lymph # (Auto) 0.68 L [place] # (Auto) 0.08 L Eos # (Auto) 0.00 Baso # (Auto) 0.00 PT INR APTT PTT Ratio Sodium Potassium Chloride Carbon Dioxide Anion Gap BUN Creatinine Est Cr Clr Drug Dosing Est GFR ( Amer) Est GFR (Non-Af Amer) BUN/Creatinine Ratio Glucose POC Glucose 135 H Calcium Magnesium Total Bilirubin AST ALT Alkaline Phosphatase Troponin I Total Protein Albumin Globulin Albumin/Globulin Ratio Influenza Type A (PCR) Neg for Influ A Influenza Type B (PCR) Neg for Influ B 01/15/19 01/15/19 01/15/19 04:48 08:02 12:08 WBC RBC Hgb Hct MCV MCH MCHC RDW Std Deviation RDW Coeff of Jaz Plt Count MPV Immature Gran % (Auto) Neut % (Auto) Lymph % (Auto) [place] % (Auto) Eos % (Auto) Baso % (Auto) Immature Gran # (Auto) Neut # (Auto) Lymph # (Auto) [place] # (Auto) Eos # (Auto) Baso # (Auto) PT INR APTT PTT Ratio Sodium 138 Potassium 3.7 Chloride 108 H Carbon Dioxide 24 Anion Gap 6.0 BUN 23 H Creatinine 1.05 Est Cr Clr Drug Dosing 75.0 Est GFR ( Amer) 85.9 Est GFR (Non-Af Amer) 74.1 BUN/Creatinine Ratio 21.8 H Glucose 166 H POC Glucose 170 H 151 H Calcium 8.7 Magnesium Total Bilirubin AST ALT Alkaline Phosphatase Troponin I Total Protein Albumin Globulin Albumin/Globulin Ratio Influenza Type A (PCR) Influenza Type B (PCR) 01/15/19 17:03 WBC RBC Hgb Hct MCV MCH MCHC RDW Std Deviation RDW Coeff of Jaz Plt Count MPV Immature Gran % (Auto) Neut % (Auto) Lymph % (Auto) [place] % (Auto) Eos % (Auto) Baso % (Auto) Immature Gran # (Auto) Neut # (Auto) Lymph # (Auto) [place] # (Auto) Eos # (Auto) Baso # (Auto) PT INR APTT PTT Ratio Sodium Potassium Chloride Carbon Dioxide Anion Gap BUN Creatinine Est Cr Clr Drug Dosing Est GFR ( Amer) Est GFR (Non-Af Amer) BUN/Creatinine Ratio Glucose POC Glucose 144 H Calcium Magnesium Total Bilirubin AST ALT Alkaline Phosphatase Troponin I Total Protein Albumin Globulin Albumin/Globulin Ratio Influenza Type A (PCR) Influenza Type B (PCR)
[2019-01-15] MEDS: NICOTINE 21 MG/24 HR TDSY TD SCH (20:45)
[2019-01-15] MEDS: FLUTICASONE/SALMETEROL 250/50 (ADVAIR) 14 PUFF/1 INHALER INH SCH ×2 (20:46→20:56)
[2019-01-15] MEDS ORDERED: ATORVASTATIN 10 MG TAB PO SCH (21:00)
[2019-01-16] MEDS: HYDROCODONE/HOMATROPINE SYRUP 5MG/1.5MG 5ML UDP PO PRN ×2 (00:03→09:11)
[2019-01-16] MEDS: IPRATROPIUM BROMIDE NEB SOLN 0.02% 2.5 ML VIAL INH SCH ×3 (01:11→14:02)
[2019-01-16] MEDS: LEVALBUTEROL 1.25MG/0.5ML NEB INH SCH ×3 (01:11→14:02)
[2019-01-16] MEDS ORDERED: INSULIN GLARGINE SOLOSTAR 100 UNITS/ML 3 ML PEN SQ SCH (09:00)
[2019-01-16] MEDS: FAMOTIDINE 20 MG TAB PO SCH (09:11)
[2019-01-16] MEDS: NICOTINE 21 MG/24 HR TDSY TD SCH (09:12)
[2019-01-16] MEDS: predniSONE 20 MG TAB PO SCH (09:13)
[2019-01-16] MEDS: FLUTICASONE/SALMETEROL 250/50 (ADVAIR) 14 PUFF/1 INHALER INH SCH (09:13)
[2019-01-16] MEDS: ENOXAPARIN INJ 40 MG/0.4 ML SYR SQ SCH (09:13)
[2019-01-16] MEDS: INSULIN ASPART 100 UNITS/ML 3 ML PEN SC SCH ×2 (09:17→13:21)
[2019-01-16] MEDS: PREGABALIN 100 MG CAP PO SCH (09:25)
[2019-01-16] MEDS: BENZONATATE 100 MG CAPSULE PO PRN (13:23)
--- NOTE | 2019-01-16 14:41 | Hospitalist Progress Note ---
Date of Service January 16, 2019 Assessment & Plan (1) COPD exacerbation: (1) COPD exacerbation CXR: no pneumonia follows with Dr. Reeder evaluated by Dr. 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 Chronic parenchymal change (3) ongoing tobacco abuse management per #1 (4) TAYLOR ff up with [employer] (5) Hyperglycemia likely secondary to prediabetes, hemoglobin A1c of 5.15 Jun 2018 Disposition d/c home ff up as noted above Subjective ff up for COPD exacerbation seen resting, sitting up in chair states he feels better overall less cough, no dyspnea, no fever/chills right lower rib pain with cough is also less no other symptoms Review of Systems Review of Systems: All systems reviewed & are unremarkable except as noted in HPI & below Physical Exam Physical Exam: General- oriented x 3, not in distress, speaks in sentences wit h no effort or accessory muscle use Eyes- anicteric Neck- no JVD Lungs- faint wheeze on the right, clear on the left good air entry bilaterally Heart- normal rate, regular rhythm; no murmurs Abdomen- normal bowel sounds, nondistended, soft, nontender Extremities- no pretibial edema, no calf tenderness Neuro- alert, oriented x 3; no gross focal neurologic deficits Skin- warm & dry Results & Data Vital Signs (Past 12 Hours) Vital Signs Temp Pulse Resp BP Pulse Ox 01/16/19 14:04 85 16 95 01/16/19 07:12 73 16 94 01/16/19 07:10 36.5 C 73 16 100/57 L 94
--- NOTE | 2019-01-16 15:37 | Discharge Summary ---
Date of Service January 16, 2019 Admission HPI Per Admitting Provider History obtained from patient and records. Medical history significant for COPD, history of PE status post Coumadin, ongoing tobacco abuse, TAYLOR, histoplasmosis as per records, hyperlipidemia Recent confinement June 2018 for COPD exacerbation. 1 week history of junky cough symptoms productive of green sputum, pleuritic right-sided chest pain from coughing, increasing shortness of breath. No fever, no chills, no known sick contacts, no aspiration. At the ER, patient received Solu-Medrol and neb treatment for COPD exacerbation. 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 Admission Exam Per Admitting Provider GENERAL: Comfortable, slightly anxious, obese, no respiratory distress, coughing with deep inspiration SKIN: Normal color, warm HEENT: Partial alopecia, bespectacled, pink palpebral conjunctivae, no ptosis, dry buccal mucosa NECK : Supple, no tenderness CHEST : Decreased breath sounds, occasional expiratory wheezes, no tenderness HEART : RRR, no obvious murmurs ABDOMEN: Some distention, nontender EXTREMITIES : No LE swelling/tenderness, no other conspicuous deformities noted NEUROLOGIC : Coherent, no facial asymmetry, no other gross focality Principal Diagnosis COPD EXACERBATION Discharge Exam General- oriented x 3, not in distress, speaks in sentences with no effort or accessory muscle use Eyes- anicteric Neck- no JVD Lungs- faint wheeze on the right, clear on the left good air entry bilaterally Heart- normal rate, regular rhythm; no murmurs Abdomen- normal bowel sounds, nondistended, soft, nontender Extremities- no pretibial edema, no calf tenderness Neuro- alert, oriented x 3; no gross focal neurologic deficits Skin- warm & dry Discharge Data Allergies Allergy/AdvReac Type Severity Reaction Status Date / Time No Known Allergies Allergy Verified 01/14/19 22:31 Consultations 01/15/19 00:16 ED Decision to Admit Stat 01/15/19 03:00 Consult Pulmonology Routine Ordered Studies 01/14/19 23:35 CT angio chest PE protocol Urgent CT DOSE: 777.07 mGy.cm HISTORY: Chest pain. Dyspnea. PE TECHNIQUE: Multiaxial CT images of the chest were performed following the intravenous administration of contrast to evaluate the pulmonary arteries. Maximal intensity projection images were also obtained. A dose lowering technique was utilized adhering to the principles of ALARA. COMPARISON STUDY: 09/05/2018 FINDINGS: There is a normal caliber thoracic aorta with no evidence for dissection. There is no evidence for pulmonary embolus. No pleural effusions. No pneumothorax. The liver and spleen are unremarkable. No mediastinal or hilar lymphadenopathy. The central airways are patent. The lungs demonstrate chronic basilar interstitial prominence. IMPRESSION: No evidence for pulmonary embolus. Chronic parenchymal change Hospital Course (1) COPD exacerbation: (1) COPD exacerbation CXR: no pneumonia follows with Dr. Reeder evaluated by Dr. 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 Chronic parenchymal change (3) ongoing tobacco abuse management per #1 (4) TAYLOR ff up with [employer] (5) Hyperglycemia likely secondary to prediabetes, hemoglobin A1c of 5.15 Jun 2018 -- ff up as outpatient Disposition d/c home ff up as noted above Total Time Total Time Spent Total Time Spent (In Minutes): 40 minutes Discharge Plan Discharge Items Patient Disposition: Home - Self-Care Reason For Visit: COPD EXACERBATION Discharge Diagnosis: COPD EXACERBATION Condition on Discharge: Good Activity: As commented below Activity Comment: NO HEAVY EXERTION UNTIL RE-EVALUATED BY LUNG SPECIALIST OR PCP Lifting: Wait until after follow-up appointment Exercise/Sports: Wait until after follow-up appointment Driving/Machine Use: NO DRIVING UNTIL RE-EVALUATED BY PRIMARY CARE PHYSICIAN OR LUNG SPECIALIST Non-emergency contact: Primary Care Provider and [employer] Call non-emergency contact if: you have any medication questions, your symptoms worsen and you have a fever Diet: Heart Healthy Addtl Attending Provider Instructions: PLEASE CALL PRIMARY CARE PHYSICIAN/LUNG SPECIALIST OR RETURN TO THE ER IMMEDIATELY IF WITH RECURRENCE OR WORSENING OF SYMPTOMS. PLEASE REVIEW YOUR NEW MEDICATION LIST AND FOLLOW INSTRUCTIONS CAREFULLY. DO NOT DRIVE OR OPERATE MACHINERIES WHILE TAKING HYCODAN. DO NOT TAKE LORAZEPAM (ATIVAN) WHILE TAKING HYCODAN. FOLLOW UP WITH LUNG DOCTOR THIS WEEK. PLEASE CALL FOR AN APPOINTMENT AND INFORM THE OFFICE THAT PATIENT HAS JUST BEEN DISCHARGED FROM THE HOSPITAL AND WAS SEEN BY DR. ALEGRE. FOLLOW UP WITH DR. BUCKNER (ASSOCIATE OF DR. ALFARO) ON FRIDAY JANUARY 18, 2019 AT 12:45PM. Pending Studies at Discharge: No Stand-Alone Forms: [facility], Smoking Cessation Medications and DC Order Prescriptions: New Trelegy Ellipta 100-62.5-25 mcg blister with device 1 puffs INH DAILY 30 Days Qty: 60 RF: 2 prednisone 20 mg Tablet 40 mg PO DAILY 3 Days Qty: 6 RF: 0 nicotine [Nicoderm CQ] 21 mg/24 hr Patch 24 Hour 21 mg transdermal QAM 7 Days Qty: 7 RF: 0 hydrocodone-homatropine [Hydromet] 5-1.5 mg/5 mL Syrup 5 ml PO Q6H PRN (Reason: cough) 7 Days Qty: 140 RF: 0 Continued (DME) BD Eclipse Luer-Mateusz 3 mL 25 x 5/8" syringe See Dose Instructions .ROUTE .MEDSUPPLY Qty: 1 RF: 5 sodium chloride 0.9 % solution for nebulization 1 ml INH Q2H PRN (Reason: shortness of breath or wheezing) Qty: 90 RF: 5 (DME) Flutter Valve Device See Dose Instructions .ROUTE .MEDSUPPLY Qty: 1 RF: 0 atorvastatin [Lipitor] 10 mg Tablet 10 mg PO QPM RF: 0 lorazepam [Ativan] 0.5 mg Tablet 0.5 mg PO Q8 PRN (Reason: Anxiety) RF: 0 ranitidine HCl [Zantac] 150 mg Tablet 150 mg PO BID RF: 0 pregabalin [Lyrica] 100 mg Capsule 100 mg PO BID RF: 0 (DME) nebulizers Misc RF: 0 levalbuterol HCl 1.25 mg/0.5 mL Solution For Nebulization 1.25 mg INHALATION QID PRN (Reason: Shortness Of Breath Or Wheezing) RF: 0 Discontinued arformoterol [Brovana] 15 mcg/2 mL solution for nebulization 15 mcg inhalation DIRECTED RF: 0 Anoro Ellipta 62.5-25 mcg/actuation Blister With Device 1 inh INHALATION QAM RF: 0 Discharge Orders: Discharge Order (Routine); Ordered 01/16/19 Ordered By: Preston Hobson/Other Patient Handouts: Quit Smoking Get Support Admission Data Admit Date/Time: 01/15/19 02:03 Attending Provider: Preston Garcia Admit Provider: Joselito Granda Primary Care Provider: Marie Alfaro Other Providers: José Luis Reeder ; Joselito Granda Other Interventions: Discharge Summary Assessment (RN) Last Done: 01/16/19 15:17
== END 2019-01-16 16:36 | disposition home or self-care (01) | DRG 191 ==
LOC: ED 21:54 → 3N 01-15 02:03

== ENCOUNTER 2020-09-17 17:36 | Inpatient (IN) ==
[2020-09-17] MEDS ORDERED: ONDANSETRON INJ 2 MG/ML 2 ML VIAL IV STA (17:46)
[2020-09-17] MEDS ORDERED: SODIUM CHLORIDE 0.9% 500 ML IV STA (17:46)
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
[2020-09-17] MEDS: MoRPHine SULFATE 4 MG/ML 1 ML CARP\\VIAL IV PRN ×4 (18:02→22:51)
[2020-09-17 18:15] LABS: Basophils # (auto) 0.02 K/uL (0-0.2); Basophils % (auto) 0.1 %; Eosinophils # (auto) 0.32 K/uL (0-0.5); Eosinophils % (auto) 1.9 %; Hematocrit (blood only) 44.5 % (42-52); Hemoglobin 15.5 g/dL (14.0-18.0); Immature Granulocytes % (auto) 1.2 %; Lymphocytes # (auto) 2.87 K/uL (1.2-3.4); Lymphocytes % (auto) 16.9 %; Mean Corpuscular Hemoglobin 32.3 pg (25-34); Mean Corpuscular Hgb Conc 34.8 g/dL (32-36); Mean Corpuscular Volume 92.7 fL (80-100); Monocytes # (auto) 1.51 K/uL (0.11-0.59); Monocytes % (auto) 8.9 %; Neutrophils # (auto) 12.02 K/uL (1.4-6.5); Platelet Count 269 K/uL (130-400); RDW Standard Deviation 50.4 fL (36.4-46.3); White Blood Count 16.94 K/uL (4.8-10.8)
[2020-09-17 18:38] LABS: Albumin Level 4.2 gm/dl (3.4-5.0); BUN Creatinine Ratio 23.6 (10-20); Creatinine Clr Calc Pharmacy 81.3 ml/min; Est GFR (African American) 92.7 ml/min; Potassium 4.2 mmol/L (3.5-5.1)
[2020-09-17 18:43] LABS: Albumin Globulin Ratio 1.4 (0.9-2); Bilirubin,Total 0.4 mg/dl (0.2-1); Total Protein 7.2 gm/dl (6.4-8.2)
--- NOTE | 2020-09-17 19:07 | CT Scan Report ---
CT SCAN OF THE LUMBAR SPINE WITHOUT IV CONTRAST CLINICAL HISTORY: Fall. Low back pain. COMPARISON STUDY: CT of the lumbar spine dated 06/15/2015. TECHNIQUE: CT scan of the lumbar spine is performed from the lower thoracic spine to the sacrum. Imag es are reviewed in the axial, sagittal, and coronal planes. IV contrast was not administered for this examination. A dose lowering technique was utilized adhering to the principles of ALARA. CT DOSE: 634.40 mGy.cm FINDINGS: The skeletal structures are osteopenic. There is a minimal acute superior endplate compress ion fracture of L5. This is best seen on axial image #263 and sagittal image #44. No significant loss of height is identified. Minimal paravertebral edema is noted. There is a chronic compression deform ity of L2 with moderate loss of height and retropulsed fragments. This is similar to the 2016 examina tion. Vertebral body height is otherwise maintained throughout the lumbar spine. Alignment is preserv ed. Small anterior and lateral marginal osteophytes are seen throughout. There is no spondylolysis. T he transverse and spinous processes are intact. No lytic or blastic lesion is seen. There is advanced disc space narrowing at L1-L2 and L5-S1. Only mild disc space narrowing is seen at the remaining cer vical levels. There is no CT evidence of large disc herniation. The visualized sacrum and bony pelvis appear intact. There is advanced atherosclerotic calcification of the abdominal aorta. The paraspino us soft tissues are normal as imaged. No retroperitoneal lymphadenopathy is seen. IMPRESSION: 1. There is a minimal acute superior endplate compression fracture of L5. No loss of height or retrop ulsed fragments are identified. 2. No additional acute fracture is seen. A chronic compression deformity of L2 is similar to the 2016 examination. 3. Osteopenia and mild degenerative change as above. ACT 112: Negative or not required by law. Dictated: 09/17/2020 6:35 PM Transcribed: 09/17/2020 6:50 PM Ariana [id number] [facility] Electronically signed by: Wayne Baez M.D. 09/17/2020 7:06 PM
--- NOTE | 2020-09-17 19:44 | XRay Report ---
LEFT FOREARM 2 VIEWS; LEFT WRIST 4 VIEWS CLINICAL HISTORY: Fall with left arm injury. FINDINGS: AP and lateral views of the left forearm with 4 additional views of the left wrist are obta ined. No prior studies are available for comparison at the time of dictation. The skeletal structures are osteopenic. Question cortical irregularity of the radial head and neck. This is incompletely ass essed. The radius and ulna are otherwise intact as visualized. The elbow joint is grossly maintained. A metallic foreign body is present in the distal upper extremity at the level of the humeral epicond yles. Mild degenerative narrowing seen at the radiocarpal articulation. No acute fracture is identifi ed at the wrist joint. Mild degenerative changes at the first carpometacarpal articulation. IMPRESSION: 1. Question cortical irregularity of the radial head and neck. This is incompletely evaluated. If the re is clinical concern for elbow fracture then dedicated elbow view should be obtained. 2. No additional findings are concerning for acute fracture in the forearm. 3. No fracture is clearly identified at the wrist joint. If there is clinical concern for occult frac ture consider short-term radiographic follow-up. 4. A metallic foreign body is present within the soft tissues above the elbow. Electronically signed by: Wayne Baez M.D. 09/17/2020 7:42 PM
--- NOTE | 2020-09-17 19:45 | XRay Report ---
LEFT ELBOW 3 VIEWS CLINICAL HISTORY: Fall with left arm injury. FINDINGS: 3 views of the left elbow are obtained. No prior studies are available for comparison at th e time of dictation. The skeletal structures appear osteopenic. There is a nondisplaced fracture of t he radial head and neck with associated joint effusion. No additional fracture is identified. The guido nt spaces of the elbow appear maintained. Overlying soft tissue edema is noted. A metallic foreign tejinder dy is present within medial the soft tissues above the elbow joint IMPRESSION: 1. Nondisplaced radial head and neck fracture with associated joint effusion. 2. No additional fracture is identified. 3. A metallic foreign body is present within the soft tissues above the elbow. Electronically signed by: Wayne Baez M.D. 09/17/2020 7:44 PM
[2020-09-17] MEDS ORDERED: SODIUM CHLORIDE 0.9% 1000ML 500 ML IV ONE (20:01)
[2020-09-17 20:26] LABS: Magnesium 1.9 mg/dl (1.8-2.4)
[2020-09-17] MEDS ORDERED: KETOROLAC TROMETHAMINE 15 MG/ML VIAL IV STA (20:52)
--- NOTE | 2020-09-17 20:52 | History & Physical Report ---
Date of Service September 17, 2020 Assessment & Plan (1) Closed compression fracture of lumbar vertebra: Plan: With lumbar radiculopathy symptoms secondary to traumatic fall l traumatic left radial fracture hx COPD Baseline wheezing as per patient Transient hypoxemia post narcotic administration history of PE status post Coumadin prediabetes, hemoglobin A1c of 5.15 Jun 2018 ongoing tobacco abuse, OBS GMF Analgesia Lidoderm patch trial Orthopedics spine consult if without improvement in a.m. Orthopedics consult Re: L radial fracture PT OT eval Nebs as needed Nicotine patch DVT prophylaxis. SCDs for now until patient seen by Orthopedics Lovenox 40 mg subcutaneous daily if no procedural intervention. Full code. Patient requests for his to be updated of plan of care. Ms. Agnes Franks, contact #[phone]. Text document was generated using Growish voice recognition software. It may contain grammatical or spelling errors. Kindly contact undersigned for clarification of any documentation item in question. History of Present Illness Chief Complaint: Back pain, fall Primary Care Provider: Marie Weaver DO History obtained from patient and records. Medical history significant for COPD, history of PE status post Coumadin, ongoing tobacco abuse, TAYLOR, histoplasmosis as per records, hyperlipidemia, prediabetes. Last confinement January 2019 for COPD exacerbation. Patient was helping move a large tree branch off the road when he fell backwards while pulling at the branch causing patient to fall down on his back and left elbow. Achy back pain shooting to the left leg and left elbow pain. LE numbness/weakness from pain as per patient. No incontinence. Patient unable to get up because of pain. No head trauma, no chest pain, no S OB, no LOC. Usual achy abdominal pain for months now. Intractable discomfort at the ER. 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 Allergies Allergy/AdvReac Type Severity Reaction Status Date / Time fluticasone furoate Allergy Intermediate lightheadedness Verified 09/17/20 21:12 [From Trelegy Ellipta] and nausea umeclidinium Allergy Intermediate lightheadedness Verified 09/17/20 21:12 [From Trelegy Ellipta] and nausea vilanterol Allergy Intermediate lightheadedness Verified 09/17/20 21:12 [From Nathan Moyer] and nausea Home Medications Medication Instructions Recorded Confirmed Type atorvastatin 10 mg tablet (Lipitor) 10 mg PO QPM 10/16/17 09/17/20 History pregabalin 100 mg capsule (Lyrica) 100 mg PO BID 10/16/17 09/17/20 History guaifenesin 600 mg tablet, 600 mg PO BID #60 tab 11/22/19 09/17/20 Rx extended release 12 hr (Mucinex) umeclidinium 62.5 mcg-vilanterol 1 inh INHALATION QAM #60 ea 01/07/20 09/17/20 Rx 25 mcg/actuation powdr for inhalation (Anoro Ellipta) levalbuterol HCl 1.25 mg/3 mL 1.25 mg INHALATION QID PRN #90 vial 03/18/20 09/17/20 Rx solution for nebulization ondansetron 4 mg disintegrating 4 mg PO Q6H PRN #15 tab 06/26/20 09/17/20 Rx tablet furosemide 20 mg tablet (Lasix) 20 mg PO Q OTHER DAY #15 tab 07/22/20 09/17/20 Rx methylprednisolone 4 mg tablets in 4 mg PO DIRECTED #21 ea 09/10/20 09/17/20 Rx a dose pack (Medrol (Miguelito)) ondansetron HCl 8 mg tablet 8 mg PO UD PRN 09/10/20 09/17/20 History meclizine 25 mg tablet 25 mg PO DAILY PRN 09/11/20 09/17/20 History pantoprazole 40 mg tablet,delayed 40 mg PO BID #30 tab 09/11/20 09/17/20 Rx release Past Med/Surg History Medical History Acute on chronic respiratory failure Anxiety COPD exacerbation COPD, moderate PFT 06/2018 Diaphragmatic hernia GERD (gastroesophageal reflux disease) High cholesterol Histoplasmosis History of broken leg HLD (hyperlipidemia) Left femoral shaft fracture juan carlos placed Lung abscess Morbid obesity due to excess calories Neuropathy TAYLOR (obstructive sleep apnea) Pneumothorax Post-nasal drip Thoracic spinal stenosis Tobacco use Viral upper respiratory illness Surgical History H/O elbow surgery H/O exploratory thoracotomy "Left thoracotomy wedge biopsy of left upper lobe with excision of lesion or nodule & frozen section 2002" H/O [facility]nia [facility] no mesh 02[facility]17/[facility]" H/O total hip arthroplasty left side History of hand surgery History of placement of chest tube History of sinus surgery History of total replacement of both shoulder joints Family History Father Heart disease Hypertension Brother Cancer Hypertension Stroke Heart disease Mother Cancer Other Leukemia No family history of bleeding disorder Non-Hodgkin lymphoma Denies family history of Hearing loss Asthma Social History Smoking Status: Current every day smoker Tobacco Type: Cigarettes Age Started Using Tobacco: 11; packs per day: 1; Cigarettes Per Day: "one pack"; Second Hand Exposure: No; Do You Dip or Chew Tobacco: No; Tobacco Cessation Education Requested by Patient: No Hx Alcohol Use: No Hx Substance Use: No Preferred Language: Samoan Communication Ability: Effective Rosin Barrel Filler Required: No Beliefs That Will Affect Care: None marital status: Current Living Situation: Spouse current occupational status: unemployed Feels Safe at Home: Yes Safety Concerns: Feels Safe At This Time Assistive Devices: Denture - Upper, Denture - Lower and Glasses Review of Systems Review of Systems: As per HPI, all 10 systems reviewed, all other ROS negative Physical Exam Physical Exam: GENERAL: uncomfortable, obese, no respiratory distress SKIN: Normal color, warm HEENT: Partial alopecia, bespectacled, [place] palpebral conjunctivae, no ptosis, dry buccal mucosa, nasal cannula in place NECK : Supple, no tenderness CHEST : Decreased breath sounds, occasional scattered wheezes, no tenderness HEART : RRR, no obvious murmurs ABDOMEN: Some distention, nontender BACK : Low back tenderness, positive straight leg raise test on the left EXTREMITIES : No LE swelling/tenderness, left elbow swelling and tenderness, no other conspicuous deformities noted NEUROLOGIC : Coherent, no facial asymmetry, no other gross focality Results & Data Results & Data ([facility]) Vital Signs (Past 12 Hours) Vital Signs Temp Pulse Pulse Resp BP BP Pulse Ox 09/17/20 19:30 93 09/17/20 19:25 84 20 102/58 L 87 L 09/17/20 17:43 36.6 C 92 H 18 105/79 93 Laboratory Results Laboratory Results WBC 16.94 K/uL (4.8-10.8) H 09/17/20 17:56 RBC 4.80 M/uL (4.7-6.1) 09/17/20 17:56 Hgb 15.5 g/dL (14.0-18.0) 09/17/20 17:56 Hct 44.5 % (42-52) 09/17/20 17:56 MCV 92.7 fL (80-100) 09/17/20 17:56 MCH 32.3 pg (25-34) 09/17/20 17:56 MCHC 34.8 g/dL (32-36) 09/17/20 17:56 RDW Std Deviation 50.4 fL (36.4-46.3) H 09/17/20 17:56 RDW Coeff of Jaz 15.0 % (11.5-14.5) H 09/17/20 17:56 Plt Count 269 K/uL (130-400) 09/17/20 17:56 MPV 11.0 fL (7.4-10.4) H 09/17/20 17:56 Immature Gran % (Auto) 1.2 % 09/17/20 17:56 Neut % (Auto) 71.0 % 09/17/20 17:56 Lymph % (Auto) 16.9 % 09/17/20 17:56 [place] % (Auto) 8.9 % 09/17/20 17:56 Eos % (Auto) 1.9 % 09/17/20 17:56 Baso % (Auto) 0.1 % 09/17/20 17:56 Neut # (Auto) 12.02 K/uL (1.4-6.5) H 09/17/20 17:56 Lymph # (Auto) 2.87 K/uL (1.2-3.4) 09/17/20 17:56 [place] # (Auto) 1.51 K/uL (0.11-0.59) H 09/17/20 17:56 Eos # (Auto) 0.32 K/uL (0-0.5) 09/17/20 17:56 Baso # (Auto) 0.02 K/uL (0-0.2) 09/17/20 17:56 Immature Gran # (Auto) 0.20 K/uL (0.00-0.02) H 09/17/20 17:56 Sodium 139 mmol/L (136-145) 09/17/20 17:56 Potassium 4.2 mmol/L (3.5-5.1) 09/17/20 17:56 Chloride 107 mmol/L (98-107) 09/17/20 17:56 Carbon Dioxide 25 mmol/L (21-32) 09/17/20 17:56 Anion Gap 7.0 (3-11) 09/17/20 17:56 BUN 23 mg/dl (7-18) H 09/17/20 17:56 Creatinine 0.98 mg/dl (0.6-1.4) 09/17/20 17:56 Est Cr Clr Drug Dosing 81.3 ml/min 09/17/20 17:56 Est GFR ( Amer) 92.7 ml/min 09/17/20 17:56 Est GFR (Non-Af Amer) 80.0 ml/min 09/17/20 17:56 BUN/Creatinine Ratio 23.6 (10-20) H 09/17/20 17:56 Glucose 98 mg/dl (70-99) 09/17/20 17:56 Calcium 9.0 mg/dl (8.5-10.1) 09/17/20 17:56 Magnesium 1.9 mg/dl (1.8-2.4) 09/17/20 17:56 Total Bilirubin 0.4 mg/dl (0.2-1) 09/17/20 17:56 AST 40 U/L (15-37) H 09/17/20 17:56 ALT 75 U/L (12-78) 09/17/20 17:56 Alkaline Phosphatase 103 U/L (45-117) 09/17/20 17:56 Total Protein 7.2 gm/dl (6.4-8.2) 09/17/20 17:56 Albumin 4.2 gm/dl (3.4-5.0) 09/17/20 17:56 Globulin 3.0 gm/dl (2.5-4.0) 09/17/20 17:56 Albumin/Globulin Ratio 1.4 (0.9-2) 09/17/20 17:56 Specimen Hemolysis 09/17/20 17:56 Impressions Elbow X-Ray 09/17/20 17:46 LEFT ELBOW 3 VIEWS CLINICAL HISTORY: Fall with left arm injury. FINDINGS: 3 views of the left elbow are obtained. No prior studies are available for comparison at the time of dictation. The skeletal structures appear osteopenic. There is a nondisplaced fracture of the radial head and neck with associated joint effusion. No additional fracture is identified. The joint spaces of the elbow appear maintained. Overlying soft tissue edema is noted. A metallic foreign body is present within medial the soft tissues above the elbow joint IMPRESSION: 1. Nondisplaced radial head and neck fracture with associated joint effusion. 2. No additional fracture is identified. 3. A metallic foreign body is present within the soft tissues above the elbow. Electronically signed by: Wayne Baez M.D. 09/17/2020 7:44 PM Forearm X-Ray 09/17/20 17:46 LEFT FOREARM 2 VIEWS; LEFT WRIST 4 VIEWS CLINICAL HISTORY: Fall with left arm injury. FINDINGS: AP and lateral views of the left forearm with 4 additional views of the left wrist are obtained. No prior studies are available for comparison at the time of dictation. The skeletal structures are osteopenic. Question cortical irregularity of the radial head and neck. This is incompletely assessed. The radius and ulna are otherwise intact as visualized. The elbow joint is grossly maintained. A metallic foreign body is present in the distal upper extremity at the level of the humeral epicondyles. Mild degenerative narrowing seen at the radiocarpal articulation. No acute fracture is identified at the wrist joint. Mild degenerative changes at the first carpometacarpal articulation. IMPRESSION: 1. Question cortical irregularity of the radial head and neck. This is incompletely evaluated. If there is clinical concern for elbow fracture then dedicated elbow view should be obtained. 2. No additional findings are concerning for acute fracture in the forearm. 3. No fracture is clearly identified at the wrist joint. If there is clinical concern for occult fracture consider short-term radiographic follow-up. 4. A metallic foreign body is present within the soft tissues above the elbow. Electronically signed by: Wayne Baez M.D. 09/17/2020 7:[address] 09/17/20 17:46 CT SCAN OF THE LUMBAR SPINE WITHOUT IV CONTRAST CLINICAL HISTORY: Fall. Low back pain. COMPARISON STUDY: CT of the lumbar spine dated 06/15/2015. TECHNIQUE: CT scan of the lumbar spine is performed from the lower thoracic spine to the sacrum. Images are reviewed in the axial, sagittal, and coronal planes. IV contrast was not administered for this examination. A dose lowering technique was utilized adhering to the principles of ALARA. CT DOSE: 634.40 mGy.cm FINDINGS: The skeletal structures are osteopenic. There is a minimal acute superior endplate compression fracture of L5. This is best seen on axial image #263 and sagittal image #44. No significant loss of height is identified. Minimal paravertebral edema is noted. There is a chronic compression deformity of L2 with moderate loss of height and retropulsed fragments. This is similar to the 2016 examination. Vertebral body height is otherwise maintained throughout the lumbar spine. Alignment is preserved. Small anterior and lateral marginal osteophytes are seen throughout. There is no spondylolysis. The transverse and spinous processes are intact. No lytic or blastic lesion is seen. There is advanced disc space narrowing at L1-L2 and L5-S1. Only mild disc space narrowing is seen at the remaining cervical levels. There is no CT evidence of large disc herniation. The visualized sacrum and bony pelvis appear intact. There is advanced atherosclerotic calcification of the abdominal aorta. The paraspinous soft tissues are normal as imaged. No retroperitoneal lymphadenopathy is seen. IMPRESSION: 1. There is a minimal acute superior endplate compression fracture of L5. No loss of height or retropulsed fragments are identified. 2. No additional acute fracture is seen. A chronic compression deformity of L2 is similar to the 2016 examination. 3. Osteopenia and mild degenerative change as above. ACT 112: Negative or not required by law. Dictated: 09/17/2020 6:35 PM Transcribed: 09/17/2020 6:50 PM Ariana [id number] [facility] Electronically signed by: Wayne Baez M.D. 09/17/2020 7:06 PM Wrist X-Ray 09/17/20 17:46 LEFT FOREARM 2 VIEWS; LEFT WRIST 4 VIEWS CLINICAL HISTORY: Fall with left arm injury. FINDINGS: AP and lateral views of the left forearm with 4 additional views of the left wrist are obtained. No prior studies are available for comparison at the time of dictation. The skeletal structures are osteopenic. Question cortical irregularity of the radial head and neck. This is incompletely assessed. The radius and ulna are otherwise intact as visualized. The elbow joint is grossly maintained. A metallic foreign body is present in the distal upper extremity at the level of the humeral epicondyles. Mild degenerative narrowing seen at the radiocarpal articulation. No acute fracture is identified at the wrist joint. Mild degenerative changes at the first carpometacarpal articulation. IMPRESSION: 1. Question cortical irregularity of the radial head and neck. This is incompletely evaluated. If there is clinical concern for elbow fracture then dedicated elbow view should be obtained. 2. No additional findings are concerning for acute fracture in the forearm. 3. No fracture is clearly identified at the wrist joint. If there is clinical concern for occult fracture consider short-term radiographic follow-up. 4. A metallic foreign body is present within the soft tissues above the elbow. Electronically signed by: Wayne Baez M.D. 09/17/2020 7:42 PM Diagnostic Findings Chest x-ray as per my interpretation COPD CT abdomen pelvis initial read: No acute findings in the abdomen or pelvis. No evidence of small bowel obstruction or significant bowel wall thickening. Unremarkable appendix. No hydronephrosis. Gallbladder and pancreas are unremarkable. Degenerative changes of the spine with a chronic compression deformityof L2. Post surgical changes of the left proximal femur. Vascular calcifications. (1) Closed compression fracture of lumbar vertebra Encounter type: initial encounter Lumbar vertebra fracture level: L5 Qualified Code(s): S32.050A - Wedge compression fracture of fifth lumbar vertebra, initial encounter for closed fracture
[2020-09-17] MEDS ORDERED: OPTIRAY 320 100ml IV ONE (21:28)
[2020-09-17] MEDS: LIDOCAINE 5% 1 PATCH TD SCH (21:45)
--- NOTE | 2020-09-17 21:55 | XRay Report ---
SINGLE VIEW CHEST CLINICAL HISTORY: Hypoxia. FINDINGS: An AP, portable, upright chest radiograph is compared to study dated 5 09/10/2020 and correla raya with chest CT dated 02/04/2020. The heart is top normal for projection noting atherosclerotic abdirashid cification of the thoracic aorta. The pulmonary vasculature is noncongested. Emphysema and chronic in terstitial thickening is similar to previous. Scarring/atelectasis is noted at the lung bases. Postop erative change is seen in the left upper lung. No airspace consolidation or large pleural effusion is identified. No pneumothorax is seen. The skeletal structures are osteopenic. There is chronic posttr aumatic deformity and postoperative change in the right proximal humerus. A left shoulder arthroplast y is partially imaged. IMPRESSION: Emphysema and chronic parenchymal changes as above with no acute cardiopulmonary abnormal ity. ACT 112: Negative or not required by law. Electronically signed by: Wayne Baez M.D. 09/17/2020 9:54 PM
[2020-09-17] MEDS ORDERED: SODIUM CHLORIDE 0.9% 1000ML 1,000 ML IV ONE (22:18)
[2020-09-17] MEDS ORDERED: PROMETHAZINE HCL 12.5 MG in SODIUM CHLORIDE 0.9% 50 ML IV PRN (23:15)
[2020-09-17] MEDS ORDERED: ACETAMINOPHEN 325 MG TAB PO PRN (23:15)
[2020-09-17] MEDS ORDERED: LORazepam 0.25 MG/0.5 ML VIAL IV PRN (23:15)
[2020-09-17] MEDS ORDERED: MoRPHine SULFATE 4 MG/ML 1 ML CARP\\VIAL IV PRN (23:15)
[2020-09-18] MEDS: oxyCODONE HCL IR 5 MG TAB (IMMEDIATE RELEASE) PO PRN ×4 (00:17→20:23)
[2020-09-18] MEDS: PANTOprazole 40 MG TAB PO SCH ×3 (00:18→20:22)
[2020-09-18] MEDS: NICOTINE 21 MG/24 HR TDSY TD SCH ×2 (00:18→08:54)
[2020-09-18 06:50] LABS: Appearance Urine Clear (Clear); Bilirubin Urine Negative (Negative); Blood Urine Negative (Negative); Color Urine Dark Yellow; Glucose Urine UA Negative (Negative); Ketones Urine Negative (Negative); Leukocyte Esterase Urine Negative (Negative); Nitrite Urine Negative (Negative); Protein Urine Negative (Negative); Specific Gravity Urine > 1.045 (1.000-1.030); Urobilinogen Urine Negative (Negative); pH Urine 5.5 (4.5-7.5)
--- NOTE | 2020-09-18 07:32 | CT Scan Report ---
CT abd pelvis IV con only CLINICAL HISTORY: abd pain COMPARISON STUDY: June 26, 2020. TECHNIQUE: A dose lowering technique was utilized adhering to the principles of ALARA. CT DOSE: 965.03 mGy.cm FINDINGS: Lower chest: Mild atelectasis at dependent portions of bilateral lower lobes. Mild septal thickening and traction bronchiectasis as seen. Overall findings are similar to prior study likely representing interstitial lung disease.. Liver: The contrast-enhanced liver is normal in size, contour, and attenuation. There is no intrahepa tic biliary ductal dilatation. The hepatic veins and portal veins are patent. Gallbladder: Unremarkable. Spleen: Normal in size and attenuation. Pancreas: Unremarkable. Adrenal glands: Unremarkable. Kidneys: There is symmetric renal cortical enhancement. The kidneys are normal in size without hydron ephrosis.Redemonstration of slightly asymmetrical fat stranding surrounding right kidney which was al so seen on prior study. Few small hypoattenuating lesion within the right renal cortex are unchanged since prior and likely represent small cortical cyst. Pelvic viscera: The bladder, and pelvic viscera are unremarkable. Bilateral fat-containing small inguinal hernias are seen. Bowel: The small bowel and colon are normal in course and caliber. Appendix is normal. Peritoneum: There is no intraperitoneal free air or abdominal ascites. Stable nodularity at the peritoneal lining at the posterior right abdominal wall, unchanged since rec ent prior study (04/05) Vasculature: Abdominal aorta is normal in caliber with scattered calcifications of its robert. Adenopathy: None. Skeletal structures: Osteopenia. Redemonstration of L2 compression fracture deformity. Multilevel deg enerative changes of the spine are again seen. Postoperative changes within left proximal femur. IMPRESSION: 1. No acute intra-abdominal process. Nondilated loops of bowel. Normal appendix. 2. Questionable asymmetrical fat stranding surrounding right kidney, unchanged since prior study. 3. Questionable nodularity at the peritoneal lining of the right posterior abdominal wall which is u nchanged since prior study. 4. Stable compression fracture deformity of L2. 5. Atherosclerosis. 6. The rest of findings as above. ACT 112: Negative or not required by law. The above report was generated using voice recognition software. It may contain grammatical, syntax o r spelling errors. Electronically signed by: Tracie Rocha DO 09/18/2020 7:30 AM
[2020-09-18 07:40] LABS: BUN Creatinine Ratio 31.5 (10-20); Calcium 7.8 mg/dl (8.5-10.1); Creatinine Clr Calc Pharmacy 104.1 ml/min; Est GFR (African American) 109.6 ml/min; Est GFR (Non-African American) 94.6 ml/min; Potassium 4.1 mmol/L (3.5-5.1)
[2020-09-18 07:43] LABS: Bilirubin,Total 0.6 mg/dl (0.2-1)
[2020-09-18] MEDS: UMECLIDINIUM/VILANTEROL 62.5/25MCG 7 PUFFS/INHALER INH SCH (08:55)
[2020-09-18] MEDS: PREGABALIN 100 MG CAP PO SCH ×2 (09:05→20:24)
--- NOTE | 2020-09-18 09:47 | Orthopedic Consultation ---
Date of Service September 18, 2020 Assessment & Plan (1) Closed fracture of radial head: -He can remain out of splint and remain in a sling. -NWB in LUE; range of motion as he tolerates. -Agree w/ PT/OT evaluation -Pain control, ice, elevation -Follow up in Dr. Willis's clinic in 3 weeks w/ repeat elbow XRs, remain in sling until then (2) Left wrist sprain: -Will place in a wrist extension brace for patient comfort. -Will get repeat XRs as outpatient at 3 week follow up appointment History of Present Illness Reason for Consultation: L radial head/neck fracture . Requesting Physician: Dr. Law. Attending Physician: Demetri aLw MD; Bradley Willis MD This is a 64 y/o/m with hx of COPD, PE s/p coumadin, current tobacco abuse, hx histoplasmosis, obesity, HTN, DLD, GERD who presented to [facility] last night after suffering a fall while moving a large tree branch out of the road. He fell backwards while pulling the branch and landed on his lower back. Struck his left elbow on the ground as well. He immediately had severe LUE and lower back pain and was brought by ambulance to ED for evaluation. Work up there significant for elbow XR showing a nondisplaced L radial head/neck fracture as well as a metallic foreign body proximal to the elbow joint; also obtained a Lumbar spine CT which showed a mild acute superior endplate compression fracture of L5 with no evidence of loss of height or retropulsed fragment. LUE placed in a sugar tong splint. He had intractable pain while in ED and was admitted for observation. General ortho team consulted for evaluation and treatment of radial head/neck fracture. Seen this AM. Still having elbow pain with any passive or active motion. Also endorses wrist pain with passive and active motion today. Splint was removed and he was placed in a brace by us. Allergies Allergy/AdvReac Type Severity Reaction Status Date / Time fluticasone furoate Allergy Intermediate lightheadedness Verified 09/17/20 21:12 [From Trelegy Ellipta] and nausea umeclidinium Allergy Intermediate lightheadedness Verified 09/17/20 21:12 [From Trelegy Ellipta] and nausea vilanterol Allergy Intermediate lightheadedness Verified 09/17/20 21:12 [From Nathan Moyer] and nausea Home Medications Medication Instructions Recorded Confirmed Type atorvastatin 10 mg tablet (Lipitor) 10 mg PO QPM 10/16/17 09/17/20 History pregabalin 100 mg capsule (Lyrica) 100 mg PO BID 10/16/17 09/17/20 History guaifenesin 600 mg tablet, 600 mg PO BID #60 tab 11/22/19 09/17/20 Rx extended release 12 hr (Mucinex) umeclidinium 62.5 mcg-vilanterol 1 inh INHALATION QAM #60 ea 01/07/20 09/17/20 Rx 25 mcg/actuation powdr for inhalation (Anoro Ellipta) levalbuterol HCl 1.25 mg/3 mL 1.25 mg INHALATION QID PRN #90 vial 03/18/20 09/17/20 Rx solution for nebulization ondansetron 4 mg disintegrating 4 mg PO Q6H PRN #15 tab 06/26/20 09/17/20 Rx tablet furosemide 20 mg tablet (Lasix) 20 mg PO Q OTHER DAY #15 tab 07/22/20 09/17/20 Rx methylprednisolone 4 mg tablets in 4 mg PO DIRECTED #21 ea 09/10/20 09/17/20 Rx a dose pack (Medrol (Miguelito)) ondansetron HCl 8 mg tablet 8 mg PO UD PRN 09/10/20 09/17/20 History meclizine 25 mg tablet 25 mg PO DAILY PRN 09/11/20 09/17/20 History pantoprazole 40 mg tablet,delayed 40 mg PO BID #30 tab 09/11/20 09/17/20 Rx release Past Med/Surg History Medical History Acute on chronic respiratory failure Anxiety COPD exacerbation COPD, moderate PFT 06/2018 Diaphragmatic hernia GERD (gastroesophageal reflux disease) High cholesterol Histoplasmosis History of broken leg HLD (hyperlipidemia) Left femoral shaft fracture juan carlos placed Lung abscess Morbid obesity due to excess calories Neuropathy TAYLOR (obstructive sleep apnea) Pneumothorax Post-nasal drip Thoracic spinal stenosis Tobacco use Viral upper respiratory illness Surgical History H/O elbow surgery H/O exploratory thoracotomy "Left thoracotomy wedge biopsy of left upper lobe with excision of lesion or nodule & frozen section 2002" H/O hernia repair [facility] supraumbilical hernia repair open no mesh 02/17/01" H/O total hip arthroplasty left side History of hand surgery History of placement of chest tube History of sinus surgery History of total replacement of both shoulder joints Family History Father Heart disease Hypertension Brother Cancer Hypertension Stroke Heart disease Mother Cancer Other Leukemia No family history of bleeding disorder Non-Hodgkin lymphoma Denies family history of Hearing loss Asthma Social History Smoking Status: Current every day smoker Tobacco Type: Cigarettes Age Started Using Tobacco: 11; packs per day: 1; Cigarettes Per Day: "one pack"; Second Hand Exposure: No; Do You Dip or Chew Tobacco: No; Tobacco Cessation Education Requested by Patient: No Hx Alcohol Use: No Hx Substance Use: No Preferred Language: [place] Communication Ability: Effective Lens Assorter Required: No Beliefs That Will Affect Care: None marital status: Current Living Situation: Spouse current occupational status: unemployed Feels Safe at Home: Yes Safety Concerns: Feels Safe At This Time Assistive Devices: Cane Review of Systems All systems reviewed & are unremarkable except as noted in HPI & below. Physical Exam General: Well developed middle aged male resting in bed. Appears to be in pain but no acute distress. LUE: Examined out of splint. He has soft tissue swelling at the elbow with no deformity or bruising. Elbow diffusely tender to palpation, more so on medial aspect. Passive and active range of motion of the elbow limited secondary to pain. No swelling noted around left wrist. Tenderness present diffusely over the left wrist as well. Stable w/ manipulation of DRUJ. Passive and active motion of wrist limited secondary to pain. Results & Data Results & Data Laboratory Results Reviewed. Diagnostic Findings Elbow and Lumbar imaging as noted above Wrist XRs from ED reviewed and with no evidence of fracture or other acute bony deformity. PG Care Time/CCT Total # of Minutes Spent Total Time Spent with Patient: Total time spent is greater than 50% in coordination of care (as documented) at patient's floor/unit and/or counseling patient: Supervising Physician Co-Signing Physician Notes Seen and evaluated with ELBA. Agree with above note, assessment, and plan. Wrist examined - length stable. Low concern for [place] injury. Prefer to mobilize by removing sugartong splint. Will follow as an outpatient. Please consult Spine if there are concerns with low back injury. Coding Level of Care Code 01906 Inpt Consult Level 3 Diagnoses Closed fracture of radial head S52.122A Encounter type: initial encounter Fracture alignment: displaced Laterality: left Left wrist sprain S63.502A (1) Closed fracture of radial head Encounter type: initial encounter Fracture alignment: displaced Laterality: left Qualified Code(s): S52.122A - Displaced fracture of head of left radius, initial encounter for closed fracture
[2020-09-18] MEDS: ALBUT/IPRATROP 3MG/0.5MG NEB 3 ML VIAL NEB PRN ×2 (14:33→20:30)
[2020-09-18] MEDS ORDERED: TAMSULOSIN HCL 0.4 MG CAP PO ONE (15:08)
--- NOTE | 2020-09-18 16:59 | Hospitalist Progress Note ---
Date of Service September 18, 2020 Assessment & Plan (1) Closed compression fracture of lumbar vertebra: Plan: Closed fracture of Left Radius Secondary to fall Elbow X ray:Nondisplaced radial head and neck fracture with associated joint effusion Continue sling Nonweightbearing left upper extremity Range of motion as tolerated Continue PT OT Pain control Appreciate orthopedics input Needs follow-up with Dr. Willis in 3 weeks with repeat elbow x-ray Left wrist pain Wrist extension brace for comfort Needs follow-up with orthopedics with repeat x-ray in 3 weeks Metallic foreign body in soft tissue above the elbow Incidental finding on x-ray Lumbar Compression facture L5 Chronic compression deformity of L2 Lumbar CT: There is a minimal acute superior endplate compression fracture of L5. No loss of height or retropulsed fragments are identified. No additional acute fracture is seen. A chronic compression deformity of L2 is similar to the 2016 examination. Osteopenia and mild degenerative change as above. Reports chrnoic back pain Suspected Urinary Retention Bladder scan PRN Minimize Pain meds as able Flomax trial COPD Hypoxia Ongoing tobacco use disorder No signs of exacerbation Continue home inhalers Counseled to quit smoking Wean off of oxygen to sats >= 88% May need 2 step prior to discharge H/O PE Completed Coumadin Prediabetes Hb A1c of 5.15 Jun 2018 DVT Px: SCDs Lovenox SQ Code Status Full code. Admission and Anticipated Discharge Date Admission Date: September 17, 2020 Subjective Seen and examined at bedside Complains of left wrist, elbow pain Reports chronic cough, chronic dyspnea on exertion which he attributes to COPD Also states having chronic back pain Denies chest pain, dizziness, nausea, abdominal pain Offers no other complaints Review of Systems Review of Systems: All systems reviewed & are unremarkable except as noted in Subjective Physical Exam Physical Exam: Physical Exam: Vitals signs as noted above General Appearance:Moderately built and nourished, no apparent distress Head: normocephalic, Atraumatic Eyes: normal inspection, EOMI Neck: supple, Trachea midline Respiratory/Chest: Decreased breath sounds, CTA, No accessory muscle use Cardiovascular: S1, S2, No murmur Abdomen/GI:Soft, Non tender, Bowel sounds present Extremities/Musculoskeletal:normal inspection, Trace pedal edema, LUE in sling Neurologic/Psych:AAOX3, grossly no focal neurological deficits Skin: normal color, warm Results & Data Results & Data ([facility]) Vital Signs (Past 12 Hours) Vital Signs Temp Pulse Resp BP Pulse Ox 09/18/20 15:00 37.0 C 71 20 93/55 L 25 L 09/18/20 14:33 68 18 95 09/18/20 12:07 36.7 C 65 20 123/80 95 09/18/20 07:00 37.1 C 78 20 112/63 93 Laboratory Results Short CBC 09/17/20 Range/Units 17:56 WBC 16.94 H (4.8-10.8) K/uL Hgb 15.5 (14.0-18.0) g/dL Hct 44.5 (42-52) % Plt Count 269 (130-400) K/uL BMP 09/17/20 09/18/20 17:56 06:49 Sodium 139 138 Potassium 4.2 4.1 Chloride 107 109 H Carbon Dioxide 25 26 BUN 23 H 24 H Creatinine 0.98 0.77 Glucose 98 95 Calcium 9.0 7.8 L Liver Function 09/17/20 09/18/20 Range/Units 17:56 06:49 Total Bilirubin 0.4 0.6 (0.2-1) mg/dl AST 40 H 33 (15-37) U/L ALT 75 63 (12-78) U/L Alkaline Phosphatase 103 80 (45-117) U/L Albumin 4.2 3.0 L (3.4-5.0) gm/dl Urine 09/18/20 Range/Units 05:50 Urine Color Dark Yellow Urine Appearance Clear (Clear) Urine pH 5.5 (4.5-7.5) Ur Specific [place] > 1.045 H (1.000-1.030) Urine Protein Negative (Negative) Urine Glucose (UA) Negative (Negative) (1) Closed compression fracture of lumbar vertebra Encounter type: initial encounter Lumbar vertebra fracture level: L5 Qualified Code(s): S32.050A - Wedge compression fracture of fifth lumbar vertebra, initial encounter for closed fracture
[2020-09-18] MEDS: LIDOCAINE 5% 1 PATCH TD SCH (20:22)
[2020-09-18] MEDS: ATORVASTATIN 10 MG TAB PO SCH (20:23)
[2020-09-18] MEDS: MoRPHine SULFATE 2 MG/ML CARP IV PRN (22:49)
[2020-09-19] MEDS: oxyCODONE HCL IR 5 MG TAB (IMMEDIATE RELEASE) PO PRN ×3 (02:59→19:37)
[2020-09-19 09:12] LABS: Hematocrit (blood only) 41.9 % (42-52); Mean Corpuscular Hemoglobin 31.5 pg (25-34); Mean Corpuscular Hgb Conc 33.4 g/dL (32-36); Mean Corpuscular Volume 94.2 fL (80-100); Mean Platelet Volume 10.4 fL (7.4-10.4); Platelet Count 194 K/uL (130-400); RDW Coefficient of Variation 15.1 % (11.5-14.5); RDW Standard Deviation 51.9 fL (36.4-46.3); Red Blood Count 4.45 M/uL (4.7-6.1); White Blood Count 11.03 K/uL (4.8-10.8)
[2020-09-19] MEDS: PREGABALIN 100 MG CAP PO SCH ×2 (09:13→20:59)
[2020-09-19] MEDS: UMECLIDINIUM/VILANTEROL 62.5/25MCG 7 PUFFS/INHALER INH SCH (09:13)
[2020-09-19] MEDS: PANTOprazole 40 MG TAB PO SCH ×2 (09:13→21:00)
[2020-09-19] MEDS: NICOTINE 21 MG/24 HR TDSY TD SCH (09:13)
[2020-09-19] MEDS: ENOXAPARIN INJ 40 MG/0.4 ML SYR SQ SCH (09:14)
[2020-09-19] MEDS: MoRPHine SULFATE 2 MG/ML CARP IV PRN ×3 (09:21→18:34)
[2020-09-19 09:45] LABS: BUN Creatinine Ratio 24.7 (10-20); Calcium 8.4 mg/dl (8.5-10.1); Creatinine Clr Calc Pharmacy 102.8 ml/min; Est GFR (Non-African American) 94.1 ml/min
[2020-09-19] MEDS: ALBUT/IPRATROP 3MG/0.5MG NEB 3 ML VIAL NEB PRN (15:10)
--- NOTE | 2020-09-19 17:12 | Hospitalist Progress Note ---
Date of Service September 19, 2020 Assessment & Plan (1) Closed compression fracture of lumbar vertebra: Plan: Closed fracture of Left Radius Secondary to fall Elbow X ray:Nondisplaced radial head and neck fracture with associated joint effusion Continue sling Nonweightbearing left upper extremity Range of motion as tolerated Pain control Appreciate orthopedics input Needs follow-up with Dr. Willis in 3 weeks with repeat elbow x-ray Continue PT OT Left wrist pain Wrist extension brace for comfort Needs follow-up with orthopedics with repeat x-ray in 3 weeks Metallic foreign body in soft tissue above the elbow Incidental finding on x-ray Management as per Orthopedics Fever Unclear source Empirically started on Rocephin Lumbar Compression facture L5 Chronic compression deformity of L2 -Lumbar CT: There is a minimal acute superior endplate compression fracture of L5. No loss of height or retropulsed fragments are identified. No additional acute fracture is seen. A chronic compression deformity of L2 is similar to the 2016 examination. Osteopenia and mild degenerative change as above. -Consulted for Input Suspected Urinary Retention Bladder scan PRN Minimize Pain meds as able Currently urinating normally as per patient COPD Hypoxia Ongoing tobacco use disorder No signs of exacerbation Continue home inhalers Counseled to quit smoking Wean off of oxygen to sats >= 88% May need 2 step prior to discharge H/O PE Completed Coumadin Prediabetes Hb A1c of 5.15 Jun 2018 DVT Px: SCDs Lovenox SQ Code Status Full code. Admission and Anticipated Discharge Date Admission Date: September 19, 2020 Subjective Patient is seen and examined at bedside Febrile today Reports left wrist, elbow and back pain Discussed with Orthopedics today Denies chest pain, dizziness, nausea, abdominal pain Chronic dyspnea Review of Systems Review of Systems: All systems reviewed & are unremarkable except as noted in Subjective Physical Exam Physical Exam: Physical Exam: Vitals signs as noted above General Appearance:Moderately built and nourished, no apparent distress Head: normocephalic, Atraumatic Eyes: normal inspection, EOMI Neck: supple, Trachea midline Respiratory/Chest: Decreased breath sounds, CTA, No accessory muscle use Cardiovascular: S1, S2, No murmur Abdomen/GI:Soft, Non tender, Bowel sounds present Extremities/Musculoskeletal:normal inspection, Trace pedal edema, LUE in sling Neurologic/Psych:AAOX3, grossly no focal neurological deficits Skin: normal color, warm Results & Data Results & Data ([facility]) Vital Signs (Past 12 Hours) Vital Signs Temp Pulse Pulse Resp BP Pulse Ox 09/19/20 15:12 38.0 C H 77 20 120/62 94 09/19/20 15:11 87 16 98 09/19/20 07:24 37.1 C 75 16 111/58 L 93 Laboratory Results Short CBC 09/19/20 Range/Units 08:56 WBC 11.03 H (4.8-10.8) K/uL Hgb 14.0 (14.0-18.0) g/dL Hct 41.9 L (42-52) % Plt Count 194 (130-400) K/uL BMP 09/19/20 08:56 Sodium 136 Potassium 4.0 Chloride 105 Carbon Dioxide 26 BUN 19 H Creatinine 0.78 Glucose 103 H Calcium 8.4 L (1) Closed compression fracture of lumbar vertebra Encounter type: initial encounter Lumbar vertebra fracture level: L5 Qualified Code(s): S32.050A - Wedge compression fracture of fifth lumbar vertebra, initial encounter for closed fracture
[2020-09-19] MEDS: cefTRIAXone SODIUM 2,000 MG in DEXTROSE 5% 50 ML IV SCH (18:34)
[2020-09-19] MEDS: ATORVASTATIN 10 MG TAB PO SCH (21:00)
[2020-09-19] MEDS: LIDOCAINE 5% 1 PATCH TD SCH (21:01)
[2020-09-20] MEDS: oxyCODONE HCL IR 5 MG TAB (IMMEDIATE RELEASE) PO PRN ×3 (01:21→20:18)
[2020-09-20] MEDS: MoRPHine SULFATE 2 MG/ML CARP IV PRN ×3 (05:10→18:20)
[2020-09-20 06:18] LABS: Hematocrit (blood only) 42.7 % (42-52); Hemoglobin 14.6 g/dL (14.0-18.0); Mean Corpuscular Hemoglobin 32.1 pg (25-34); Mean Corpuscular Hgb Conc 34.2 g/dL (32-36); Mean Corpuscular Volume 93.8 fL (80-100); Platelet Count 210 K/uL (130-400); RDW Coefficient of Variation 14.7 % (11.5-14.5); RDW Standard Deviation 50.4 fL (36.4-46.3); Red Blood Count 4.55 M/uL (4.7-6.1); White Blood Count 9.57 K/uL (4.8-10.8)
[2020-09-20 06:56] LABS: BUN Creatinine Ratio 22.4 (10-20); Calcium 8.6 mg/dl (8.5-10.1); Creatinine Clr Calc Pharmacy 100.2 ml/min; Est GFR (African American) 107.9 ml/min; Est GFR (Non-African American) 93.1 ml/min; Potassium 4.1 mmol/L (3.5-5.1)
[2020-09-20] MEDS: UMECLIDINIUM/VILANTEROL 62.5/25MCG 7 PUFFS/INHALER INH SCH (09:36)
[2020-09-20] MEDS: PANTOprazole 40 MG TAB PO SCH ×2 (09:38→20:16)
[2020-09-20] MEDS: PREGABALIN 100 MG CAP PO SCH ×2 (09:38→20:15)
[2020-09-20] MEDS: NICOTINE 21 MG/24 HR TDSY TD SCH (09:39)
[2020-09-20] MEDS: ENOXAPARIN INJ 40 MG/0.4 ML SYR SQ SCH (09:40)
[2020-09-20] MEDS: cefTRIAXone SODIUM 2,000 MG in DEXTROSE 5% 50 ML IV SCH (18:07)
--- NOTE | 2020-09-20 18:47 | Hospitalist Progress Note ---
Date of Service September 20, 2020 Assessment & Plan (1) Closed compression fracture of lumbar vertebra: Plan: Closed fracture of Left Radius Secondary to fall Elbow X ray:Nondisplaced radial head and neck fracture with associated joint effusion Continue sling Nonweightbearing left upper extremity Range of motion as tolerated Pain control Appreciate orthopedics input Needs follow-up with Dr. Willis in 3 weeks with repeat elbow x-ray Continue PT OT Needs Rehab placement Left wrist pain Wrist extension brace for comfort Needs follow-up with orthopedics with repeat x-ray in 3 weeks Metallic foreign body in soft tissue above the elbow Incidental finding on x-ray Management as per Orthopedics Fever Unclear source Continue empiric Rocephin Lumbar Compression facture L5 Chronic compression deformity of L2 -Lumbar CT: There is a minimal acute superior endplate compression fracture of L5. No loss of height or retropulsed fragments are identified. No additional acute fracture is seen. A chronic compression deformity of L2 is similar to the 2016 examination. Osteopenia and mild degenerative change as above. -Consulted for Input Suspected Urinary Retention Bladder scan PRN Minimize Pain meds as able Currently urinating normally as per patient COPD Hypoxia Ongoing tobacco use disorder No signs of exacerbation Continue home inhalers Counseled to quit smoking Wean off of oxygen to sats >= 88% May need 2 step prior to discharge H/O PE Completed Coumadin Prediabetes Hb A1c of 5.15 Jun 2018 DVT Px: SCDs Lovenox SQ Code Status Full code. Admission and Anticipated Discharge Date Admission Date: September 19, 2020 Subjective Patient is seen and examined at bedside No new complaints Afebrile today Reports left wrist, elbow and back pain Denies chest pain, dizziness, nausea, abdominal pain Chronic dyspnea unchanged as per patient Review of Systems Review of Systems: All systems reviewed & are unremarkable except as noted in Subjective Physical Exam Physical Exam: Physical Exam: Vitals signs as noted above General Appearance:Moderately built and nourished, no apparent distress Head: normocephalic, Atraumatic Eyes: normal inspection, EOMI Neck: supple, Trachea midline Respiratory/Chest: Decreased breath sounds, CTA, No accessory muscle use Cardiovascular: S1, S2, No murmur Abdomen/GI:Soft, Non tender, Bowel sounds present Extremities/Musculoskeletal:normal inspection, Trace pedal edema, LUE in sling Neurologic/Psych:AAOX3, grossly no focal neurological deficits Skin: normal color, warm Results & Data Results & Data ([facility]) Vital Signs (Past 12 Hours) Vital Signs Temp Pulse Resp BP Pulse Ox 09/20/20 15:54 36.9 C 84 16 119/59 L 93 09/20/20 07:05 36.8 C 77 16 121/70 92 Laboratory Results Short CBC 09/20/20 Range/Units 05:28 WBC 9.57 (4.8-10.8) K/uL Hgb 14.6 (14.0-18.0) g/dL Hct 42.7 (42-52) % Plt Count 210 (130-400) K/uL BMP 09/20/20 05:28 Sodium 134 L Potassium 4.1 Chloride 104 Carbon Dioxide 25 BUN 18 Creatinine 0.80 Glucose 96 Calcium 8.6 (1) Closed compression fracture of lumbar vertebra Encounter type: initial encounter Lumbar vertebra fracture level: L5 Qualified Code(s): S32.050A - Wedge compression fracture of fifth lumbar vertebra, initial encounter for closed fracture
[2020-09-20] MEDS: ATORVASTATIN 10 MG TAB PO SCH (20:15)
[2020-09-20] MEDS: LIDOCAINE 5% 1 PATCH TD SCH (20:16)
[2020-09-20] MEDS: ALBUT/IPRATROP 3MG/0.5MG NEB 3 ML VIAL NEB PRN (20:26)
[2020-09-21] MEDS: MoRPHine SULFATE 2 MG/ML CARP IV PRN ×4 (00:41→19:54)
[2020-09-21] MEDS: oxyCODONE HCL IR 5 MG TAB (IMMEDIATE RELEASE) PO PRN ×2 (04:48→11:11)
[2020-09-21 06:17] LABS: Hematocrit (blood only) 41.8 % (42-52); Hemoglobin 14.2 g/dL (14.0-18.0); Mean Corpuscular Hemoglobin 31.7 pg (25-34); Mean Corpuscular Volume 93.3 fL (80-100); Mean Platelet Volume 11.3 fL (7.4-10.4); Platelet Count 185 K/uL (130-400); RDW Coefficient of Variation 14.6 % (11.5-14.5); RDW Standard Deviation 49.6 fL (36.4-46.3); Red Blood Count 4.48 M/uL (4.7-6.1); White Blood Count 8.55 K/uL (4.8-10.8)
[2020-09-21 06:54] LABS: BUN Creatinine Ratio 25.7 (10-20); Calcium 8.3 mg/dl (8.5-10.1); Creatinine Clr Calc Pharmacy 106.9 ml/min; Est GFR (African American) 110.8 ml/min; Est GFR (Non-African American) 95.6 ml/min
[2020-09-21] MEDS: ENOXAPARIN INJ 40 MG/0.4 ML SYR SQ SCH (09:11)
[2020-09-21] MEDS: NICOTINE 21 MG/24 HR TDSY TD SCH (09:11)
[2020-09-21] MEDS: PANTOprazole 40 MG TAB PO SCH ×2 (09:13→19:57)
[2020-09-21] MEDS: UMECLIDINIUM/VILANTEROL 62.5/25MCG 7 PUFFS/INHALER INH SCH (09:14)
[2020-09-21] MEDS: PREGABALIN 100 MG CAP PO SCH ×2 (09:20→20:00)
[2020-09-21] MEDS ORDERED: SODIUM CHLORIDE 0.9% 1000ML 1,000 ML IV ONE (13:30)
[2020-09-21] MEDS: PHENAZOPYRIDINE HCL 100 MG TAB PO SCH ×2 (14:28→19:57)
[2020-09-21] MEDS: ALBUT/IPRATROP 3MG/0.5MG NEB 3 ML VIAL NEB PRN (17:10)
--- NOTE | 2020-09-21 18:40 | Hospitalist Progress Note ---
Date of Service September 21, 2020 Assessment & Plan (1) Closed compression fracture of lumbar vertebra: Plan: Closed fracture of Left Radius Secondary to fall Elbow X ray:Nondisplaced radial head and neck fracture with associated joint effusion Continue sling Nonweightbearing left upper extremity Range of motion as tolerated Pain control Appreciate orthopedics input Needs follow-up with Dr. Willis in 3 weeks with repeat elbow x-ray Continue PT OT Needs Rehab placement Plan to discharge once placement available Left wrist pain Wrist extension brace for comfort Needs follow-up with orthopedics with repeat x-ray in 3 weeks Metallic foreign body in soft tissue above the elbow Incidental finding on x-ray Management as per Orthopedics Fever Unclear source UA: normal CXR:Emphysema and chronic parenchymal changes as above with no acute cardiopulmonary abnormality. CT ABD: No acute intra-abdominal process. Nondilated loops of bowel. Normal appendix. Questionable asymmetrical fat stranding surrounding right kidney, unchanged since prior study. Questionable nodularity at the peritoneal lining of the right posterior abdominal wall which is unchanged since prior study. Stable compression fracture deformity of L2. Atherosclerosis. Received empiric Rocephin Dysuria UA normal CT as above Will try Pyridium Consider repeat CT if needed Lumbar Compression facture L5 Chronic compression deformity of L2 -Lumbar CT: There is a minimal acute superior endplate compression fracture of L5. No loss of height or retropulsed fragments are identified. No additional acute fracture is seen. A chronic compression deformity of L2 is similar to the 2016 examination. Osteopenia and mild degenerative change as above. -Consulted for Input Suspected Urinary Retention Bladder scan PRN Minimize Pain meds as able Patient able to urinate COPD Hypoxia Ongoing tobacco use disorder No signs of exacerbation Continue home inhalers Counseled to quit smoking Wean off of oxygen to sats >= 88% May need 2 step prior to discharge H/O PE Completed Coumadin Prediabetes Hb A1c of 5.15 Jun 2018 DVT Px: SCDs Lovenox SQ Code Status Full code. Admission and Anticipated Discharge Date Admission Date: September 19, 2020 Subjective Patient is seen and examined at bedside States having dysuria Persistent left wrist, elbow and back pain but better Denies chest pain, dizziness, nausea, abdominal pain Chronic dyspnea on exertion unchanged as per patient Review of Systems Review of Systems: All systems reviewed & are unremarkable except as noted in Subjective Physical Exam Physical Exam: Physical Exam: Vitals signs as noted above General Appearance:Moderately built and nourished, no apparent distress Head: normocephalic, Atraumatic Eyes: normal inspection, EOMI Neck: supple, Trachea midline Respiratory/Chest: Decreased breath sounds, CTA, No accessory muscle use Cardiovascular: S1, S2, No murmur Abdomen/GI:Soft, Non tender, Bowel sounds present Extremities/Musculoskeletal:normal inspection, Trace pedal edema, LUE in sling Neurologic/Psych:AAOX3, grossly no focal neurological deficits Skin: normal color, warm Results & Data Results & Data ([facility]) Vital Signs (Past 12 Hours) Vital Signs Temp Pulse Resp BP Pulse Ox 09/21/20 17:11 88 18 95 09/21/20 15:31 37.7 C H 84 16 106/66 90 09/21/20 07:33 37.2 C 73 16 91/55 L 93 Laboratory Results Short CBC 09/21/20 Range/Units 05:32 WBC 8.55 (4.8-10.8) K/uL Hgb 14.2 (14.0-18.0) g/dL Hct 41.8 L (42-52) % Plt Count 185 (130-400) K/uL BMP 09/21/20 05:32 Sodium 135 L Potassium 4.0 Chloride 104 Carbon Dioxide 26 BUN 19 H Creatinine 0.75 Glucose 94 Calcium 8.3 L (1) Closed compression fracture of lumbar vertebra Encounter type: initial encounter Lumbar vertebra fracture level: L5 Qualified Code(s): S32.050A - Wedge compression fracture of fifth lumbar vertebra, initial encounter for closed fracture
[2020-09-21] MEDS: ATORVASTATIN 10 MG TAB PO SCH (19:56)
[2020-09-21] MEDS: LIDOCAINE 5% 1 PATCH TD SCH (19:57)
[2020-09-22] MEDS: oxyCODONE HCL IR 5 MG TAB (IMMEDIATE RELEASE) PO PRN (06:27)
[2020-09-22] MEDS: PREGABALIN 100 MG CAP PO SCH (09:19)
[2020-09-22] MEDS: ENOXAPARIN INJ 40 MG/0.4 ML SYR SQ SCH (09:19)
[2020-09-22] MEDS: PHENAZOPYRIDINE HCL 100 MG TAB PO SCH ×2 (09:19→12:51)
[2020-09-22] MEDS: NICOTINE 21 MG/24 HR TDSY TD SCH (09:19)
[2020-09-22] MEDS: PANTOprazole 40 MG TAB PO SCH (09:20)
[2020-09-22] MEDS: UMECLIDINIUM/VILANTEROL 62.5/25MCG 7 PUFFS/INHALER INH SCH (09:20)
--- NOTE | 2020-09-22 12:34 | Orthopedic Consultation ---
Date of Consultation September 22, 2020 Assessment & Plan (1) Compression fracture of L5 vertebra: This time I have ordered the patient an LSO brace to wear when he is up and ambulating. He is not in need to sit with this or will wear it at night. He is to lift no more than 5 pounds. We will see him in the office in 2 weeks update x-rays reviewed his healing. At this point he is cleared to go from my standpoint. History of Present Illness Reason for Consultation: L5 compression fracture Attending Physician: Demetri Law MD History of Present Illness This is a very pleasant 64-year-old male that sustained multiple injuries from a fall. At this time he does have some back pain but is controlled. Denies any leg pain numbness or weakness. Allergies Allergy/AdvReac Type Severity Reaction Status Date / Time fluticasone furoate Allergy Intermediate lightheadedness Verified 09/17/20 21:12 [From Trelegy Ellipta] and nausea umeclidinium Allergy Intermediate lightheadedness Verified 09/17/20 21:12 [From Trelegy Ellipta] and nausea vilanterol Allergy Intermediate lightheadedness Verified 09/17/20 21:12 [From Trelegy Ellipta] and nausea Home Medications Medication Instructions Recorded Confirmed Type atorvastatin 10 mg tablet (Lipitor) 10 mg PO QPM 10/16/17 09/17/20 History pregabalin 100 mg capsule (Lyrica) 100 mg PO BID 10/16/17 09/17/20 History guaifenesin 600 mg tablet, 600 mg PO BID #60 tab 11/22/19 09/17/20 Rx extended release 12 hr (Mucinex) umeclidinium 62.5 mcg-vilanterol 1 inh INHALATION QAM #60 ea 01/07/20 09/17/20 Rx 25 mcg/actuation powdr for inhalation (Anoro Ellipta) levalbuterol HCl 1.25 mg/3 mL 1.25 mg INHALATION QID PRN #90 vial 03/18/20 09/17/20 Rx solution for nebulization ondansetron 4 mg disintegrating 4 mg PO Q6H PRN #15 tab 06/26/20 09/17/20 Rx tablet furosemide 20 mg tablet (Lasix) 20 mg PO Q OTHER DAY #15 tab 07/22/20 09/17/20 Rx methylprednisolone 4 mg tablets in 4 mg PO DIRECTED #21 ea 09/10/20 09/17/20 Rx a dose pack (Medrol (Miguelito)) ondansetron HCl 8 mg tablet 8 mg PO UD PRN 09/10/20 09/17/20 History meclizine 25 mg tablet 25 mg PO DAILY PRN 09/11/20 09/17/20 History pantoprazole 40 mg tablet,delayed 40 mg PO BID #30 tab 09/11/20 09/17/20 Rx release Patient History Medical History Acute on chronic respiratory failure Anxiety COPD exacerbation COPD, moderate PFT 06/2018 Diaphragmatic hernia GERD (gastroesophageal reflux disease) High cholesterol Histoplasmosis History of broken leg HLD (hyperlipidemia) Left femoral shaft fracture juan carlos placed Lung abscess Morbid obesity due to excess calories Neuropathy TAYLOR (obstructive sleep apnea) Pneumothorax Post-nasal drip Thoracic spinal stenosis Tobacco use Viral upper respiratory illness Surgical History H/O elbow surgery H/O exploratory thoracotomy "Left thoracotomy wedge biopsy of left upper lobe with excision of lesion or nodule & frozen section 2002" H/O hernia repair [facility] incarcerated supraumbilical hernia repair open no mesh 02/17/01" H/O total hip arthroplasty left side History of hand surgery History of placement of chest tube History of sinus surgery History of total replacement of both shoulder joints Family History Father Heart disease Hypertension Brother Cancer Hypertension Stroke Heart disease Mother Cancer Other Leukemia No family history of bleeding disorder Non-Hodgkin lymphoma Denies family history of Hearing loss Asthma Social History Smoking Status: Current every day smoker Tobacco Type: Cigarettes Age Started Using Tobacco: 11; packs per day: 1; Cigarettes Per Day: "one pack"; Second Hand Exposure: No; Do You Dip or Chew Tobacco: No; Tobacco Cessation Education Requested by Patient: No Hx Alcohol Use: No Hx Substance Use: No Preferred Language: Sammarinese Communication Ability: Effective 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 Is good strength testing. Appears comfortable. Results & Data ([facility]) Vital Signs (Past 12 Hours) Vital Signs Temp Pulse Pulse Pulse Pulse Pulse Resp 09/22/20 09:46 74 73 71 09/22/20 07:17 37.5 C 80 20 09/22/20 06:42 36.9 C 68 18 Resp Resp Resp BP Pulse Ox Pulse Ox Pulse Ox 09/22/20 09:46 17 16 16 93 93 09/22/20 07:17 111/68 92 09/22/20 06:42 100/62 91 Pulse Ox 09/22/20 09:46 94 09/22/20 07:17 09/22/20 06:42
--- NOTE | 2020-09-22 12:42 | Hospitalist Progress Note ---
Date of Service September 22, 2020 Assessment & Plan (1) Closed compression fracture of lumbar vertebra: Plan: Closed fracture of Left Radius Secondary to fall Elbow X ray:Nondisplaced radial head and neck fracture with associated joint effusion Continue sling Nonweightbearing left upper extremity Range of motion as tolerated Pain control Appreciate orthopedics input Needs follow-up with Dr. Willis in 3 weeks with repeat elbow x-ray Continue PT OT Insurance for Rehab was denies Plan to discharge home with home health Left wrist pain Wrist extension brace for comfort Needs follow-up with orthopedics with repeat x-ray in 3 weeks Metallic foreign body in soft tissue above the elbow Incidental finding on x-ray Management as per Orthopedics Fever --Resolved Unclear source UA: normal CXR:Emphysema and chronic parenchymal changes as above with no acute cardiopulmonary abnormality. CT ABD: No acute intra-abdominal process. Nondilated loops of bowel. Normal appendix. Questionable asymmetrical fat stranding surrounding right kidney, unchanged since prior study. Questionable nodularity at the peritoneal lining of the right posterior abdominal wall which is unchanged since prior study. Stable compression fracture deformity of L2. Atherosclerosis. Received received Rocephin Dysuria ? LUTS UA normal CT as above Pyridium PRN Advised to follow up with Urology as outpatient Lumbar Compression facture L5 Chronic compression deformity of L2 -Lumbar CT: There is a minimal acute superior endplate compression fracture of L5. No loss of height or retropulsed fragments are identified. No additional acute fracture is seen. A chronic compression deformity of L2 is similar to the 2016 examination. Osteopenia and mild degenerative change as above. -Consulted Orthopedics Suspected Urinary Retention Bladder scan PRN Minimize Pain meds as able Patient able to urinate COPD Hypoxia Ongoing tobacco use disorder No signs of exacerbation Continue home inhalers Counseled to quit smoking Saturating well on room air 2 step: Did not qualify for oxygen H/O PE Completed Coumadin Prediabetes Hb A1c of 5.15 Jun 2018 DVT Px: SCDs Lovenox SQ Code Status Full code. Admission and Anticipated Discharge Date Admission Date: September 19, 2020 Subjective Patient is seen and examined at bedside States feeling much better today Left wrist, elbow and back pain continues to improve Denies chest pain, dizziness, nausea, abdominal pain No other complaints Review of Systems Review of Systems: All systems reviewed & are unremarkable except as noted in Subjective Physical Exam Physical Exam: Physical Exam: Vitals signs as noted above General Appearance:Moderately built and nourished, no apparent distress Head: normocephalic, Atraumatic Eyes: normal inspection, EOMI Neck: supple, Trachea midline Respiratory/Chest: Decreased breath sounds, CTA, No accessory muscle use Cardiovascular: S1, S2, No murmur Abdomen/GI:Soft, Non tender, Bowel sounds present Extremities/Musculoskeletal:normal inspection, Trace pedal edema, LUE in sling Neurologic/Psych:AAOX3, grossly no focal neurological deficits Skin: normal color, warm Results & Data Results & Data ([facility]) Vital Signs (Past 12 Hours) Vital Signs Temp Pulse Pulse Pulse Pulse Pulse Resp 09/22/20 09:46 74 73 71 09/22/20 07:17 37.5 C 80 20 09/22/20 06:42 36.9 C 68 18 Resp Resp Resp BP Pulse Ox Pulse Ox Pulse Ox 09/22/20 09:46 17 16 16 93 93 09/22/20 07:17 111/68 92 09/22/20 06:42 100/62 91 Pulse Ox 09/22/20 09:46 94 09/22/20 07:17 09/22/20 06:42 (1) Closed compression fracture of lumbar vertebra Encounter type: initial encounter Lumbar vertebra fracture level: L5 Qualified Code(s): S32.050A - Wedge compression fracture of fifth lumbar vertebra, initial encounter for closed fracture
--- NOTE | 2020-09-22 13:15 | Discharge Summary ---
Date of Service September 22, 2020 Admission HPI Per Admitting Provider History obtained from patient and records. Medical history significant for COPD, history of PE status post Coumadin, ongoing tobacco abuse, TAYLOR, histoplasmosis as per records, hyperlipidemia, prediabetes. Last confinement January 2019 for COPD exacerbation. Patient was helping move a large tree branch off the road when he fell backwards while pulling at the branch causing patient to fall down on his back and left elbow. Achy back pain shooting to the left leg and left elbow pain. LE numbness/weakness from pain as per patient. No incontinence. Patient unable to get up because of pain. No head trauma, no chest pain, no S OB, no LOC. Usual achy abdominal pain for months now. Intractable discomfort at the ER. 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 Admission Exam Per Admitting Provider Physical Exam Physical Exam: GENERAL: uncomfortable, obese, no respiratory distress SKIN: Normal color, warm HEENT: Partial alopecia, bespectacled, Emigrant palpebral conjunctivae, no ptosis, dry buccal mucosa, nasal cannula in place NECK : Supple, no tenderness CHEST : Decreased breath sounds, occasional scattered wheezes, no tenderness HEART : RRR, no obvious murmurs ABDOMEN: Some distention, nontender BACK : Low back tenderness, positive straight leg raise test on the left EXTREMITIES : No LE swelling/tenderness, left elbow swelling and tenderness, no other conspicuous deformities noted NEUROLOGIC : Coherent, no facial asymmetry, no other gross focality Principal Diagnosis Closed fracture of Left Radius Left wrist pain Lumbar Compression facture L5 Dysuria Discharge Data Allergies Allergy/AdvReac Type Severity Reaction Status Date / Time fluticasone furoate Allergy Intermediate lightheadedness Verified 09/17/20 21:12 [From Trelegy Ellipta] and nausea umeclidinium Allergy Intermediate lightheadedness Verified 09/17/20 21:12 [From Trelegy Ellipta] and nausea vilanterol Allergy Intermediate lightheadedness Verified 09/17/20 21:12 [From Trelegy Ellipta] and nausea Consultations 09/17/20 20:06 ED Decision to Admit Stat 09/17/20 22:17 Consult Orthopedic Surgery Routine 09/19/20 13:28 Consult Orthopedic Surgery Routine Ordered Studies 09/17/20 17:46 CT lumbar spine wo con Stat 09/17/20 20:51 CT abd pelvis IV con only Urgent Hospital Course (1) Closed compression fracture of lumbar vertebra: Closed fracture of Left Radius Secondary to fall Elbow X ray:Nondisplaced radial head and neck fracture with associated joint effusion Continue sling Nonweightbearing left upper extremity Range of motion as tolerated Pain control Appreciate orthopedics input Needs follow-up with Dr. Willis in 3 weeks with repeat elbow x-ray Continue PT OT Insurance for Rehab was denies Plan to discharge home with home health Left wrist pain Wrist extension brace for comfort Needs follow-up with orthopedics with repeat x-ray in 3 weeks Metallic foreign body in soft tissue above the elbow Incidental finding on x-ray Management as per Orthopedics Fever --Resolved Unclear source UA: normal CXR:Emphysema and chronic parenchymal changes as above with no acute cardiopulmonary abnormality. CT ABD: No acute intra-abdominal process. Nondilated loops of bowel. Normal appendix. Questionable asymmetrical fat stranding surrounding right kidney, unchanged since prior study. Questionable nodularity at the peritoneal lining of the right posterior abdominal wall which is unchanged since prior study. Stable compression fracture deformity of L2. Atherosclerosis. Received received Rocephin Dysuria ? LUTS UA normal CT as above Pyridium PRN Advised to follow up with Urology as outpatient Lumbar Compression facture L5 Chronic compression deformity of L2 -Lumbar CT: There is a minimal acute superior endplate compression fracture of L5. No loss of height or retropulsed fragments are identified. No additional acute fracture is seen. A chronic compression deformity of L2 is similar to the 2016 examination. Osteopenia and mild degenerative change as above. -Consulted Orthopedics Suspected Urinary Retention Bladder scan PRN Minimize Pain meds as able Patient able to urinate COPD Hypoxia Ongoing tobacco use disorder No signs of exacerbation Continue home inhalers Counseled to quit smoking Saturating well on room air 2 step: Did not qualify for oxygen H/O PE Completed Coumadin Prediabetes Hb A1c of 5.15 Jun 2018 DVT Px: SCDs Lovenox SQ Code Status Full code. I certify that this patient is under my care and that I, or a physicians commercial lines account assistant working with me, had a face to-face encounter that meets the home health [id number] encounter requirements with this patient. The encounter with the patient was in whole, or in part, for the following m edical condition, which is the primary reason for home health care (list medical condition): I certify that, based on my findings, the following services are medically nece ssary home health services: My clinical findings support the need for the above services because: Further, I certify that my clinical findings support that this patient is homebound (i.e. absences from home require considerable and taxing effort and are for medical reasons or jewish services or infrequently or of short duration when for other reasons) because: Certification for Home Health Services: Based on the above findings, I certify that this patient is confined to the home and needs intermittent mcc care, physical therapy and/or speech therapy or continues to need occupational therapy. The patient is under my care, and I have initiated the establishment of the plan of care. This patient will be followed by a physician who will periodically review the plan of care. Total Time Total Time Spent Total Time Spent (In Minutes): 39 minutes Discharge Plan Discharge Items Patient Disposition: Home - Self-Care Reason For Visit: ABD PAIN, BACK PAIN Discharge Diagnosis: Closed fracture of Left Radius Left wrist pain Lumbar Compression facture L5 Dysuria Condition on Discharge: Good Activity: Per Instructions section Exercise/Sports: Wait until after follow-up appointment Non-emergency contact: Primary Care Provider, Surgeon and Urologist Call non-emergency contact if: you have any medication questions, your symptoms worsen, your pain is concerning for you and you have a fever Follow-up/Referrals: Bradley Willis MD [Surgeon] - 10/10/20 8:45 am ([facility] [address], [place] [address] ) Marie Weaver DO [Primary Care Provider] - 09/25/20 2:20 pm (Date & Time 09/25/2020 2:20 PM Provider Cortney Goodman DO [facility] ) Diet: Regular Addtl Attending Provider Instructions: Follow-up with your primary care physician on 09/25/2020 2:20 PM Follow-up with your orthopedic surgeon Dr. Willis on October 10, 2020 at 8:45 AM with repeat x-rays as recommended Follow-up with your urologist if you have persistent burning sensation when you urinate. Seek immediate medical attention if your symptoms reoccur or worsen Please take all medications as instructed on discharge list below. Please call if you have any questions or problems. You can reach a [facility] hospitalist on duty at [facility] 24 hours a day by calling [phone] [facility] [employer] Chemist Provider Instructions: Orthopedic instructions regarding left radial head/neck fracture and left wrist sprain: -Remain in sling x 3 weeks until follow up appointment -Do not bear weight or push off with left arm -Ok to do gentle range of motion exercises of elbow and wrist as pain allows -You can utilize the left wrist brace for comfort, brace is removable and does not need to be on constantly. -Ice and elevation help with pain and swelling, do this several times a day for both wrist and elbow. -We will follow up in 3 weeks with repeat X rays of left elbow and wrist. Call our office at [phone] to set up the appointment Pending Studies at Discharge: No Stand-Alone Forms: My [facility], Opioid Pain Management, Smoking Cessation Medications and DC Order Prescriptions: New oxycodone 5 mg Tablet 5 mg PO QID PRN (Reason: pain) Qty: 14 RF: 0 phenazopyridine [Pyridium] 100 mg Tablet 100 mg PO TID PRN (Reason: dysuria) Qty: 15 RF: 0 Continued Anoro Ellipta 62.5-25 mcg/actuation blister with device 1 inh INHALATION QAM Qty: 60 RF: 5 levalbuterol HCl 1.25 mg/3 mL solution for nebulization 1.25 mg INHALATION QID PRN (Reason: Shortness Of Breath Or Wheezing) Qty: 90 RF: 1 furosemide [Lasix] 20 mg tablet 20 mg PO Q OTHER DAY Qty: 15 RF: 2 pantoprazole 40 mg tablet,delayed release (DR/EC) 40 mg PO BID Qty: 30 RF: 2 guaifenesin [Mucinex] 600 mg tablet extended release 12hr 600 mg PO BID Qty: 60 RF: 0 meclizine 25 mg tablet 25 mg PO DAILY PRN (Reason: Vertigo) RF: 0 atorvastatin [Lipitor] 10 mg Tablet 10 mg PO QPM RF: 0 pregabalin [Lyrica] 100 mg Capsule 100 mg PO BID RF: 0 ondansetron 4 mg tablet,disintegrating 4 mg PO Q6H PRN (Reason: nausea and vomiting) Qty: 15 RF: 0 ondansetron HCl 8 mg tablet 8 mg PO UD PRN (Reason: Nausea) RF: 0 methylprednisolone [Medrol (Miguelito)] 4 mg tablets,dose pack 4 mg PO DIRECTED Qty: 21 RF: 0 Discharge Orders: Discharge Order (Routine); Ordered 09/22/20 Ordered By: Demetri Hobson/Other Patient Handouts: Preventing Deep Vein Thrombosis Admission Data Admit Date/Time: 09/19/20 13:28 Attending Provider: Demetri Law Admit Provider: Joselito Granda Primary Care Provider: Marie Weaver Other Providers: Joselito Granda ; Lucina Crow ; Bradley Willis ; Leroy Jackson ; Roger Johansen ; Palma Martinez ; Tori Joaquin ; Jayashree Fowler ; Kiah James ; Ming Lazaro ; Jessie Best ; Nelly Miller ; Florentin Espinoza ; Rogelio Pérez ; Curt Smith ; Curt Santana ; Lula Morejon ; [facility] ; Jose Ochoa Other Interventions: Discharge Summary Assessment (RN) Last Done: 09/22/20 13:21
== END 2020-09-22 15:27 | disposition home or self-care (01) | DRG 563 ==
LOC: ED 17:36 → 3W 17:36
DX: J44.9 Chronic obstructive pulmonary disease, unspecified; Z88.8 Allergy status to other drugs, medicaments and biological substances; Z86.711 Personal history of pulmonary embolism; W19.XXXA Unspecified fall, initial encounter; R30.0 Dysuria; M43.8X6 Other specified deforming dorsopathies, lumbar region; F17.210 Nicotine dependence, cigarettes, uncomplicated; S52.125A Nondisplaced fracture of head of left radius, initial encounter for closed fracture; Y92.410 Unspecified street and highway as the place of occurrence of the external cause; R33.9 Retention of urine, unspecified; Y93.89 Activity, other specified; Z82.49 Family history of ischemic heart disease and other diseases of the circulatory system; S52.135A Nondisplaced fracture of neck of left radius, initial encounter for closed fracture; S63.502A Unspecified sprain of left wrist, initial encounter; S32.050A Wedge compression fracture of fifth lumbar vertebra, initial encounter for closed fracture; E78.00 Pure hypercholesterolemia, unspecified; Y99.8 Other external cause status; R50.9 Fever, unspecified; K21.9 Gastro-esophageal reflux disease without esophagitis; E78.5 Hyperlipidemia, unspecified; G62.9 Polyneuropathy, unspecified; R09.02 Hypoxemia; Z79.899 Other long term (current) drug therapy

== ENCOUNTER 2021-06-28 13:22 | Inpatient (IN) ==
--- NOTE | 2021-06-28 14:06 | Emergency Department Note ---
Impression & Plan COPD exacerbation, Bronchitis, Chest pain ED Provider Note NAME: ANGELES BURLESON AGE: 65 SEX: M : 1955 ARRIVES VIA: Ambulance INFORMANT: Patient, ED PROVIDER(S): Ajit Bay MD Chief Complaint: HPI: Patient presents due to concern for some chest discomfort and shortness of breath. The patient states he has been feeling generally unwell for the last 2 to 3 days. The patient has had nonproductive cough and a known history of COPD and still is a smoker. The patient does complain of exertional symptoms. The patient does have some left-sided chest discomfort that is intermittent. He describes it as burning nonradiating. No diaphoresis. Patient does have a history of some leg swelling for which he does take a diuretic but no known history of heart failure. The patient did try his nebulizer yesterday and does not use oxygen or regular basis. The patient states that his nebulizer did not improve his symptoms. The patient did try any an 81 aspirin but that also did not improve his symptoms today. ROS: See HPI for pertinent positives and negatives. A total of 10 systems were reviewed and otherwise negative. Past medical history: See below Surgical history: See below Social history: See below Physical Exam: GENERAL: Wearing glasses, wearing a mask, nasal cannula in place, mild tachypnea noted EYE EXAM: Normal conjunctiva. PERRL, no anisocoria and EOM's grossly intact w/o pain. NECK: Supple, no nuchal rigidity, no adenopathy, non-tender. No signs of meningismus. LUNGS: Crackles throughout, mild tachypnea, normal chest wall mechanics. HEART: NSR, no MRG. ABDOMEN: Abdomen soft, non-tender, normo-active bowel sounds, no masses, no rebound or guarding. BACK: No CVA TTP. SKIN: No rashes and no bruising. UPPER EXTREMITIES: Upper extremities are grossly normal. LOWER EXTREMITIES: Grossly normal, no edema. Negative Homans' sign bilaterally. NEURO EXAM: A&O x3, cranial nerves II-XII grossly intact, normal speech, moves all 4 extremities on command w/o issue. Differential diagnoses: Viral syndrome, otitis, pharyngitis, pneumonia, influenza, meningitis, urinary tract infection, sepsis, bacteremia, as well as other pathologies. Course: Patient was seen and evaluated the bedside. Full history physical exam was performed. EKG interpreted by me Sinus with PVCs, rate of 100, normal intervals, normal axis Imaging Studies: See Below Cardiac monitoring: An order was placed for continuous cardiac monitoring. The monitor shows a rate of 88 with sinus rhythm. MDM: Patient was seen due to concern for shortness of breath weakness and chest discomfort. Blood work was obtained. Patient hada white count of 14 with a normal H&H and platelet count. The patient's kidney function was fairly unremarkable. Troponin is not elevated. COVID flu and RSV negative. Chest x- ray with no obvious signs of pneumonia. As the patient did have borderline low oxygen upon presentation with a white count patient was ordered a first time dose of azithromycin. After further discussion with the patient do not think that the patient would do well with an ambulatory pulse ox trial. On reassessment the patient did state that he felt improved and his breathing appeared to be improved. Patient did receive mag steroids and DuoNeb treatments. Do not believe the patient would benefit from inpatient treatment. I did speak the on-call hospitalist and the patient was admitted by Dr. Law. Past Med/Surg History Medical History Acute on chronic respiratory failure Anxiety COPD exacerbation COPD, moderate PFT 06/2018 Diaphragmatic hernia GERD (gastroesophageal reflux disease) High cholesterol Histoplasmosis History of broken leg HLD (hyperlipidemia) Left femoral shaft fracture juan carlos placed Lung abscess Morbid obesity due to excess calories Neuropathy TAYLOR (obstructive sleep apnea) Pneumothorax Post-nasal drip Thoracic spinal stenosis Tobacco use Viral upper respiratory illness Surgical History H/O elbow surgery H/O exploratory thoracotomy "Left thoracotomy wedge biopsy of left upper lobe with excision of lesion or nodule & frozen section 2002" [facility] [place] incarcerated supraumbilical hernia repair open no mesh 02/17/01" H/O total hip arthroplasty left side History of hand surgery History of placement of chest tube History of sinus surgery History of total replacement of both shoulder joints Family History Father Heart disease Hypertension Brother Cancer Hypertension Stroke Heart disease Mother Cancer Other Leukemia No family history of bleeding disorder Non-Hodgkin lymphoma Denies family history of Hearing loss Asthma Social History Smoking Status: Former smoker Tobacco Type: Cigarettes and Cigars Age Started Using Tobacco: 11; packs per day: 1; Cigarettes Per Day: "one pack"; Second Hand Exposure: No; Hx Alcohol Use: No Hx Substance Use: No Preferred Language: Ukrainian Communication Ability: Effective Underwriting Analyst Required: No Beliefs That Will Affect Care: None marital status: Current Living Situation: Spouse current occupational status: unemployed Feels Safe at Home: Yes Assistive Devices: Glasses Allergies Allergies Allergy/AdvReac Type Severity Reaction Status Date / Time fluticasone furoate Allergy Intermediate lightheadedness Verified 06/28/21 13:59 [From Trelegy Ellipta] and nausea umeclidinium Allergy Intermediate lightheadedness Verified 06/28/21 13:59 [From Trelegy Ellipta] and nausea vilanterol Allergy Intermediate lightheadedness Verified 06/28/21 13:59 [From Trelegy Ellipta] and nausea Home Meds Home Medications Medication Instructions Recorded Confirmed atorvastatin 10 mg tablet (Lipitor) 10 mg PO QPM 10/16/17 06/28/21 pregabalin 100 mg capsule (Lyrica) 100 mg PO BID 10/16/17 06/28/21 umeclidinium 62.5 mcg-vilanterol 1 inh INHALATION DAILY 05/28/21 06/28/21 25 mcg/actuation powdr for inhalation (Anoro Ellipta) furosemide 20 mg tablet 20 mg PO Q24H 06/28/21 06/28/21 meclizine 12.5 mg tablet 12.5 mg PO TID PRN 06/28/21 06/28/21 Previous Rx's Medication Instructions Recorded pantoprazole 40 mg tablet,delayed 40 mg PO BID 30 Days #60 tab 03/02/21 release (Protonix) levalbuterol HCl 1.25 mg/3 mL 1.25 mg INHALATION QID PRN #90 vial 05/28/21 solution for nebulization Results & Data (ED) Vital Signs Vital Signs - 24 hr 06/28/21 13:10 06/28/21 13:27 06/28/21 13:30 Temperature 37.6 C H Temperature Source Oral Pulse Rate 101 H 105 H 101 H Pulse Rate [Apical] Pulse Rate from SpO2 Sensor 86 86 Pulse Rhythm [Apical] Pulse Strength [Apical] Respiratory Rate 20 23 26 H Respiratory Effort / Characteristics Respiratory Depth Respiratory Pattern Blood Pressure 116/60 112/66 116/60 Blood Pressure [Right Arm] Blood Pressure Mean 78 81 78 Blood Pressure Mean [Right Arm] Blood Pressure Position [Right Arm] Pulse Oximetry 91 94 92 Oxygen Delivery Method Room Air Oxygen Flow Rate Sepsis Recent Fever Within 48 Hours No Sepsis New/Unexplained Change in Mental Status No Sepsis Action Taken by Nursing No Action Required 06/28/21 14:00 06/28/21 14:28 06/28/21 14:30 Temperature Temperature Source Pulse Rate 93 H 91 H Pulse Rate [Apical] Pulse Rate from SpO2 Sensor 94 H 94 H Pulse Rhythm [Apical] Pulse Strength [Apical] Respiratory Rate 25 H 24 Respiratory Effort / Characteristics Respiratory Depth Respiratory Pattern Blood Pressure 97/53 L 91/47 L Blood Pressure [Right Arm] Blood Pressure Mean 67 61 Blood Pressure Mean [Right Arm] Blood Pressure Position [Right Arm] Pulse Oximetry 96 91 97 Oxygen Delivery Method Room Air Oxygen Flow Rate Sepsis Recent Fever Within 48 Hours Sepsis New/Unexplained Change in Mental Status Sepsis Action Taken by Nursing 06/28/21 15:00 06/28/21 15:16 06/28/21 15:30 Temperature Temperature Source Pulse Rate 88 81 93 H Pulse Rate [Apical] Pulse Rate from SpO2 Sensor 87 81 93 H Pulse Rhythm [Apical] Pulse Strength [Apical] Respiratory Rate 23 24 22 Respiratory Effort / Characteristics Respiratory Depth Respiratory Pattern Blood Pressure 86/37 L 102/59 L 105/54 L Blood Pressure [Right Arm] Blood Pressure Mean 53 73 71 Blood Pressure Mean [Right Arm] Blood Pressure Position [Right Arm] Pulse Oximetry 98 100 100 Oxygen Delivery Method Oxygen Flow Rate Sepsis Recent Fever Within 48 Hours Sepsis New/Unexplained Change in Mental Status Sepsis Action Taken by Nursing 06/28/21 16:00 06/28/21 16:30 06/28/21 17:00 Temperature Temperature Source Pulse Rate 95 H 89 82 Pulse Rate [Apical] Pulse Rate from SpO2 Sensor 94 H 90 82 Pulse Rhythm [Apical] Pulse Strength [Apical] Respiratory Rate 19 33 H 27 H Respiratory Effort / Characteristics Respiratory Depth Respiratory Pattern Blood Pressure 95/53 L 99/50 L 116/53 L Blood Pressure [Right Arm] Blood Pressure Mean 67 66 74 Blood Pressure Mean [Right Arm] Blood Pressure Position [Right Arm] Pulse Oximetry 98 99 98 Oxygen Delivery Method Oxygen Flow Rate Sepsis Recent Fever Within 48 Hours Sepsis New/Unexplained Change in Mental Status Sepsis Action Taken by Nursing 06/28/21 17:38 06/28/21 18:00 06/28/21 19:00 Temperature 36.8 C Temperature Source Oral Pulse Rate 80 73 Pulse Rate [Apical] 74 Pulse Rate from SpO2 Sensor 77 74 Pulse Rhythm [Apical] Regular Pulse Strength [Apical] Normal Respiratory Rate 20 14 18 Respiratory Effort / Characteristics Non-Labored Spontaneous Respiratory Depth Normal Respiratory Pattern Regular Blood Pressure 94/48 L 96/58 L Blood Pressure [Right Arm] 107/63 Blood Pressure Mean 63 70 Blood Pressure Mean [Right Arm] 77 Blood Pressure Position [Right Arm] Lying Pulse Oximetry 97 96 96 Oxygen Delivery Method Nasal Cannula Oxygen Flow Rate 2 Sepsis Recent Fever Within 48 Hours Sepsis New/Unexplained Change in Mental Status Sepsis Action Taken by [facility] Medications Current Medication List: was personally reviewed by me Laboratory Data Attestation: I reviewed the patient's lab results. Result diagrams: 06/28/21 13:37 06/28/21 13:37 Lab Results 06/28/21 06/28/21 06/28/21 Range/Units 13:37 13:37 13:37 WBC 14.80 H (4.8-10.8) K/uL RBC 4.64 L (4.7-6.1) M/uL Hgb 15.2 (14.0-18.0) g/dL Hct 43.8 (42-52) % MCV 94.4 (80-100) fL MCH 32.8 (25-34) pg MCHC 34.7 (32-36) g/dL RDW Std Deviation 51.2 H (36.4-46.3) fL RDW Coeff of Jaz 14.9 H (11.5-14.5) % Plt Count 287 (130-400) K/uL MPV 11.5 H (7.4-10.4) fL Immature Gran % (Auto) 0.3 % Neut % (Auto) 76.7 % Lymph % (Auto) 13.5 % Citrus % (Auto) 8.8 % Eos % (Auto) 0.5 % Baso % (Auto) 0.2 % Neut # (Auto) 11.35 H (1.4-6.5) K/uL Lymph # (Auto) 2.00 (1.2-3.4) K/uL Citrus # (Auto) 1.30 H (0.11-0.59) K/uL Eos # (Auto) 0.08 (0-0.5) K/uL Baso # (Auto) 0.03 (0-0.2) K/uL Immature Gran # (Auto) 0.04 H (0.00-0.02) K/uL PT 10.8 (9.0-12.0) Seconds INR 1.0 (0.9-1.1) APTT 26.6 (21.0-31.0) Seconds PTT Ratio 1.0 Sodium (136-145) mmol/L Potassium (3.5-5.1) mmol/L Chloride (98-107) mmol/L Carbon Dioxide (21-32) mmol/L Anion Gap (3-11) BUN (6-23) mg/dl Creatinine (0.6-1.4) mg/dl Est Cr Clr Drug Dosing Est GFR ( Amer) ml/min Est GFR (Non-Af Amer) ml/min BUN/Creatinine Ratio (10-20) Glucose (70-99(Fasting)) mg/dl Lactate (0.4-2.0) mmol/L Calcium (8.5-10.1) mg/dl Magnesium (1.7-2.4) mg/dl Total Bilirubin (0.2-1.0) mg/dl AST (13-39) U/L ALT (7-52) U/L Alkaline Phosphatase (34-104) U/L Troponin I High Sens Cancelled Total Protein (6.0-8.3) gm/dl Albumin (3.4-5.0) gm/dl Globulin (2.5-4.0) gm/dl Albumin/Globulin Ratio (0.9-2) SARS-CoV-2 (PCR) (Negative) Influenza Type A (PCR) (Neg) Influenza Type B (PCR) (Neg) RSV (RT-PCR) (Neg) 06/28/21 06/28/21 06/28/21 Range/Units 13:37 14:35 15:08 WBC (4.8-10.8) K/uL RBC (4.7-6.1) M/uL Hgb (14.0-18.0) g/dL Hct (42-52) % MCV (80-100) fL MCH (25-34) pg MCHC (32-36) g/dL RDW Std Deviation (36.4-46.3) fL RDW Coeff of Jaz (11.5-14.5) % Plt Count (130-400) K/uL MPV (7.4-10.4) fL Immature Gran % (Auto) % Neut % (Auto) % Lymph % (Auto) % Citrus % (Auto) % Eos % (Auto) % Baso % (Auto) % Neut # (Auto) (1.4-6.5) K/uL Lymph # (Auto) (1.2-3.4) K/uL Citrus # (Auto) (0.11-0.59) K/uL Eos # (Auto) (0-0.5) K/uL Baso # (Auto) (0-0.2) K/uL Immature Gran # (Auto) (0.00-0.02) K/uL PT (9.0-12.0) Seconds INR (0.9-1.1) APTT (21.0-31.0) Seconds PTT Ratio Sodium 138 (136-145) mmol/L Potassium 4.0 (3.5-5.1) mmol/L Chloride 108 H (98-107) mmol/L Carbon Dioxide 23 (21-32) mmol/L Anion Gap 7 (3-11) BUN 21 (6-23) mg/dl Creatinine 0.90 (0.6-1.4) mg/dl Est Cr Clr Drug Dosing Not Reportable Est GFR ( Amer) 102.1 ml/min Est GFR (Non-Af Amer) 88.1 ml/min BUN/Creatinine Ratio 23.3 H (10-20) Glucose 94 (70-99(Fasting)) mg/dl Lactate 1.0 (0.4-2.0) mmol/L Calcium 8.9 (8.5-10.1) mg/dl Magnesium 2.0 (1.7-2.4) mg/dl Total Bilirubin 0.5 (0.2-1.0) mg/dl AST 37 (13-39) U/L ALT 47 (7-52) U/L Alkaline Phosphatase 64 (34-104) U/L Troponin I High Sens 8.4 Total Protein 6.6 (6.0-8.3) gm/dl Albumin 3.9 (3.4-5.0) gm/dl Globulin 2.7 (2.5-4.0) gm/dl Albumin/Globulin Ratio 1.4 (0.9-2) SARS-CoV-2 (PCR) NEGATIVE (Negative) Influenza Type A (PCR) Negative (Neg) Influenza Type B (PCR) Negative (Neg) RSV (RT-PCR) Negative (Neg) Administered Medications Discontinued Medications Acetaminophen (Acetaminophen 325 Mg Tab) 650 mg PO NOW STA Stop: 06/28/21 14:44 Last Admin: 06/28/21 15:01 Dose: 650 mg Documented by: [id number] Albuterol (Albut/Ipratrop 3mg/0.5mg Neb 3 Ml Vial) 6 ml INH NOW STA Stop: 06/28/21 14:44 Last Admin: 06/28/21 15:00 Dose: 6 ml Documented by: [id number] Azithromycin (Azithromycin 250 Mg Tab) 500 mg PO NOW ONE Stop: 06/28/21 16:18 Last Admin: 06/28/21 16:41 Dose: 500 mg Documented by: [id number] Sodium Chloride (Nss 1000ml) 1,000 mls @ 999 mls/hr IV .Q1H1M YUN Stop: 06/28/21 15:30 Last Infusion: 06/28/21 16:14 Dose: 0 mls/hr Documented by: [id number] Admin: 06/28/21 15:01 Dose: 999 mls/hr Documented by: [id number] Cefepime HCl (Maxipime) 2,000 mg in 20 mls @ 5 mls/min IV NOW STA; Protocol Stop: 06/28/21 14:31 Last Admin: 06/28/21 15:09 Dose: 5 mls/min Documented by: [id number] Magnesium Sulfate/Dextrose (Magnesium Sulfate / D5w) 1 gm in 100 mls @ 100 mls/hr IV NOW STA Stop: 06/28/21 15:42 Last Infusion: 06/28/21 16:00 Dose: 0 mls/hr Documented by: [id number] Admin: 06/28/21 15:00 Dose: 100 mls/hr Documented by: [id number] Sodium Chloride (Nss) 500 mls @ 999 mls/hr IV .Q31M ONE Stop: 06/28/21 16:47 Last Infusion: 06/28/21 17:12 Dose: 0 mls/hr Documented by: [id number] Admin: 06/28/21 16:41 Dose: 999 mls/hr Documented by: [id number] Methylprednisolone (Methylprednisolone 125 Mg/2 Ml Vial) 40 mg IV NOW STA Stop: 06/28/21 14:44 Last Admin: 06/28/21 15:27 Dose: Not Given Documented by: [id number] Methylprednisolone (Methylprednisolone 40 Mg/Ml Vial) Confirm Administered Dose 40 mg .ROUTE .STK-MED ONE Stop: 06/28/21 14:58 Last Admin: 06/28/21 15:27 Dose: 40 mg Documented by: [id number] Imaging Data Radiologist's Impression: Chest X-Ray 06/28/21 14:28 XR chest 1V portable CLINICAL HISTORY: SEPSIS. COMPARISON STUDY: 03/02/2021 TECHNIQUE: 1 view of the chest FINDINGS: Single frontal view of the chest demonstrates the cardiomediastinal silhouette to be within normal limits. The lungs are clear of alveolar opacities. There is minimal chronic elevation of the left hemidiaphragm. There is no evidence for pleural effusion. There is no evidence for vascular congestion. There is no acute osseous pathology. IMPRESSION: 1. No acute cardiopulmonary disease. ACT 112: Negative or not required by law. Electronically signed by: Elpidio Yip M.D. 06/28/2021 3:19 PM Discharge Plan Visit Data Chief Complaint: Illness Stated Complaint: SOB, Chest pain ED Provider: Ajit Bay Discharge Problem: COPD exacerbation, Bronchitis, Chest pain Patient Disposition: Admitted As Inpatient Forms Stand Alone Forms: [facility] Prescriptions Prescriptions: No Action Anoro Ellipta 62.5-25 mcg/actuation blister with device 1 inh inhalation DAILY RF: 0 levalbuterol HCl 1.25 mg/3 mL solution for nebulization 1.25 mg INHALATION QID PRN (Reason: Shortness Of Breath Or Wheezing) Qty: 90 RF: 1 atorvastatin [Lipitor] 10 mg Tablet 10 mg PO QPM RF: 0 pregabalin [Lyrica] 100 mg Capsule 100 mg PO BID RF: 0 pantoprazole [Protonix] 40 mg tablet,delayed release (DR/EC) 40 mg PO BID 30 Days Qty: 60 RF: 2 furosemide 20 mg tablet 20 mg PO Q24H RF: 0 meclizine 12.5 mg tablet 12.5 mg PO TID PRN (Reason: Dizziness) RF: 0 Referrals Referrals: Marie Weaver DO [Primary Care Provider] -
[2021-06-28] MEDS ORDERED: CEFEPIME 2,000 MG/20 ML VIAL IV STA (14:28)
[2021-06-28] MEDS ORDERED: SODIUM CHLORIDE 0.9% 1000ML 1,000 ML IV SCH (14:30)
[2021-06-28] MEDS ORDERED: methylPREDNISolone 125 MG/2 ML VIAL IV STA (14:43)
[2021-06-28] MEDS ORDERED: MAGNESIUM SULFATE / D5W 1 GM/100 ML BAG IV STA (14:43)
[2021-06-28] MEDS ORDERED: ALBUT/IPRATROP 3MG/0.5MG NEB 3 ML VIAL INH STA (14:43)
[2021-06-28] MEDS ORDERED: ACETAMINOPHEN 325 MG TAB PO STA (14:43)
[2021-06-28 14:53] LABS: Partial Thromboplastin Time 26.6 Seconds (21.0-31.0); Prothrombin Time 10.8 Seconds (9.0-12.0)
[2021-06-28 14:58] LABS: Basophils # (auto) 0.03 K/uL (0-0.2); Basophils % (auto) 0.2 %; Eosinophils # (auto) 0.08 K/uL (0-0.5); Eosinophils % (auto) 0.5 %; Hematocrit (blood only) 43.8 % (42-52); Hemoglobin 15.2 g/dL (14.0-18.0); Immature Granulocytes # (auto) 0.04 K/uL (0.00-0.02); Immature Granulocytes % (auto) 0.3 %; Lymphocytes % (auto) 13.5 %; Mean Corpuscular Hemoglobin 32.8 pg (25-34); Mean Corpuscular Hgb Conc 34.7 g/dL (32-36); Mean Corpuscular Volume 94.4 fL (80-100); Mean Platelet Volume 11.5 fL (7.4-10.4); Monocytes % (auto) 8.8 %; Neutrophils # (auto) 11.35 K/uL (1.4-6.5); Neutrophils % (auto) 76.7 %; Platelet Count 287 K/uL (130-400); RDW Coefficient of Variation 14.9 % (11.5-14.5); RDW Standard Deviation 51.2 fL (36.4-46.3); Red Blood Count 4.64 M/uL (4.7-6.1)
[2021-06-28 15:02] LABS: Troponin I High Sensitivity 8.4 pg/ml (0-20)
--- NOTE | 2021-06-28 15:15 | Electrocardiogram Report ---
Test Reason : Blood Pressure : / mmHG Vent. Rate : 100 BPM Atrial Rate : 100 BPM P-R Int : 164 ms QRS Dur : 084 ms QT Int : 354 ms P-R-T Axes : 069 065 043 degrees QTc Int : 456 ms Sinus rhythm with occasional Premature ventricular complexes Otherwise normal ECG When compared with ECG of 02-MAR-2021 13:05, Premature ventricular complexes are now Present Aberrant conduction is no longer Present QT has shortened Confirmed by José Luis Rios ([id number]) on 06/28/2021 3:14:46 PM Referred By: SELF Confirmed By:José Luis Rios
--- NOTE | 2021-06-28 15:20 | XRay Report ---
XR chest 1V portable CLINICAL HISTORY: SEPSIS. COMPARISON STUDY: 03/02/2021 TECHNIQUE: 1 view of the chest FINDINGS: Single frontal view of the chest demonstrates the cardiomediastinal silhouette to be within normal li mits. The lungs are clear of alveolar opacities. There is minimal chronic elevation of the left hemid iaphragm. There is no evidence for pleural effusion. There is no evidence for vascular congestion. Th ere is no acute osseous pathology. IMPRESSION: 1. No acute cardiopulmonary disease. ACT 112: Negative or not required by law. Electronically signed by: Elpidio Yip M.D. 06/28/2021 3:19 PM
[2021-06-28 15:29] LABS: Influenza A virus by PCR Negative (Neg); Influenza B virus by PCR Negative (Neg); RSV by PCR Negative (Neg); SARS CoV2 RNA(COVID-19) InHosp NEGATIVE (Negative)
[2021-06-28 15:33] LABS: Alanine Aminotransferase 47 U/L (7-52); Albumin Globulin Ratio 1.4 (0.9-2); Albumin Level 3.9 gm/dl (3.4-5.0); Alkaline Phosphatase 64 U/L (34-104); Anion Gap 7 (3-11); Aspartate Aminotransferase 37 U/L (13-39); BUN Creatinine Ratio 23.3 (10-20); Bilirubin,Total 0.5 mg/dl (0.2-1.0); Blood Urea Nitrogen 21 mg/dl (6-23); Calcium 8.9 mg/dl (8.5-10.1); Carbon Dioxide 23 mmol/L (21-32); Chloride 108 mmol/L (98-107); Est GFR (African American) 102.1 ml/min; Est GFR (Non-African American) 88.1 ml/min; Globulin 2.7 gm/dl (2.5-4.0); Glucose 94 mg/dl (70-99(Fasting)); Sodium 138 mmol/L (136-145); Total Protein 6.6 gm/dl (6.0-8.3)
[2021-06-28] MEDS ORDERED: SODIUM CHLORIDE 0.9% 500 ML IV ONE (16:17)
[2021-06-28] MEDS ORDERED: AZITHROMYCIN 250 MG TAB PO ONE (16:17)
--- NOTE | 2021-06-28 16:33 | History & Physical Report ---
Date of Service June 28, 2021 Assessment & Plan (1) Acute bronchitis: Plan: Acute COPD Exacerbation Admit as inpatient CXR:No acute cardiopulmonary disease. COVID, intrinsic, RSV screen negative IV solumedrol, bronchodilators Blood culture obtained Oxygen support as needed to keep Sats 88-92% Started on doxycycline Currently saturating well on room air Pulmonary Hygiene Check procalcitonin Normal lactate Hypotension Pressure relatively low while in ED Blood pressure improved with IV fluids Hold Lasix for now Monitor BP Chest Pain: R/O ACS Initial troponin:Negative EKG showed no signs of acute ACS CXR as above Initial troponin negative Check ECHO Trend serial cardiac enzymes, repeat EKG, fasting lipid panel in AM Started on Aspirin NPO after midnight Cardiology consult if needed PVCs on Monitor Monitor on Tele GERD Continue PPI Tobacco use disorder Nicotine Patch if needed 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 Patient states having worsening shortness of breath, known expectorant cough. He admits to smoking 5 to 6 cigarettes/day. Patient has history of obstructive sleep apnea but currently not using CPAP or is not on oxygen at home. He also states having left-sided chest pain which is burning- like sensation, nonradiating, no aggravating or relieving factors, started at rest yesterday. He denies any pleuritic pain, chest trauma. He admits to having anxiety issues. Also reports having chronic abdominal pain which he follows with [facility] gastroenterology. He also states having dizziness, nausea but denies any syncopal episode, vomiting, diarrhea. He states having used his nebulizers at home but no much improvement. Denies any history of palpitations, diaphoresis, hemoptysis, fever, chills, fall, headache, change in vision, sick contact, recent change in medications. He has been vaccinated for COVID. Allergies Allergy/AdvReac Type Severity Reaction Status Date / Time fluticasone furoate Allergy Intermediate lightheadedness Verified 06/28/21 13:59 [From Trelegy Ellipta] and nausea umeclidinium Allergy Intermediate lightheadedness Verified 06/28/21 13:59 [From Trelegy Ellipta] and nausea vilanterol Allergy Intermediate lightheadedness Verified 06/28/21 13:59 [From Trelegy Ellipta] and nausea Home Medications Medication Instructions Recorded Confirmed Type atorvastatin 10 mg tablet (Lipitor) 10 mg PO QPM 10/16/17 06/28/21 History pregabalin 100 mg capsule (Lyrica) 100 mg PO BID 10/16/17 06/28/21 History pantoprazole 40 mg tablet,delayed 40 mg PO BID 30 Days #60 tab 03/02/21 06/28/21 Rx release (Protonix) levalbuterol HCl 1.25 mg/3 mL 1.25 mg INHALATION QID PRN #90 vial 05/28/21 Rx solution for nebulization umeclidinium 62.5 mcg-vilanterol 1 inh INHALATION DAILY 05/28/21 06/28/21 History 25 mcg/actuation powdr for inhalation (Anoro Ellipta) furosemide 20 mg tablet 20 mg PO Q24H 06/28/21 06/28/21 History meclizine 12.5 mg tablet 12.5 mg PO TID PRN 06/28/21 06/28/21 History Past Med/Surg History Medical History Acute on chronic respiratory failure Anxiety COPD exacerbation COPD, moderate PFT 06/2018 Diaphragmatic hernia GERD (gastroesophageal reflux disease) High cholesterol Histoplasmosis History of broken leg HLD (hyperlipidemia) Left femoral shaft fracture juan carlos placed Lung abscess Morbid obesity due to excess calories Neuropathy TAYLOR (obstructive sleep apnea) Pneumothorax Post-nasal drip Thoracic spinal stenosis Tobacco use Viral upper respiratory illness Surgical History H/O elbow surgery H/O exploratory thoracotomy "Left thoracotomy wedge biopsy of left upper lobe with excision of lesion or nodule & frozen section 2002" H/O hernia repair "[facility] incarcerated supraumbilical hernia repair open no mesh 02/17/01" H/O total hip arthroplasty left side History of hand surgery History of placement of chest tube History of sinus surgery History of total replacement of both shoulder joints Family History Father Heart disease Hypertension Brother Cancer Hypertension Stroke Heart disease Mother Cancer Other Leukemia No family history of bleeding disorder Non-Hodgkin lymphoma Denies family history of Hearing loss Asthma Social History Smoking Status: Former smoker Tobacco Type: Cigarettes and Cigars Age Started Using Tobacco: 11; packs per day: 1; Cigarettes Per Day: "one pack"; Second Hand Exposure: No; Hx Alcohol Use: No Hx Substance Use: No Preferred Language: Nauruan Communication Ability: Effective Assistant Media Planner Required: No Beliefs That Will Affect Care: None marital status: Current Living Situation: Spouse current occupational status: unemployed Feels Safe at Home: Yes Assistive Devices: Glasses Review of Systems Review of Systems: All systems reviewed & are unremarkable except as noted in Subjective Physical Exam Physical Exam: Physical Exam: Vitals signs as noted above General Appearance:Moderately built and nourished, no apparent distress Head: normocephalic, Atraumatic Eyes: normal inspection, EOMI Neck: supple, Trachea midline Respiratory/Chest: Decreased breath sounds, CTA, No accessory muscle use Cardiovascular: S1, S2, No murmur Abdomen/GI:Soft, Non tender, Bowel sounds present Extremities/Musculoskeletal:normal inspection, Trace edema Neurologic/Psych:AAOX3, grossly no focal neurological deficits Skin: normal color, warm Results & Data Results & Data ([facility]) Vital Signs (Past 12 Hours) Vital Signs Temp Pulse Resp BP Pulse Ox 06/28/21 16:00 95 H 19 95/53 L 98 06/28/21 15:30 93 H 22 105/54 L 100 06/28/21 15:16 81 24 102/59 L 100 06/28/21 15:00 88 23 86/37 L 98 06/28/21 14:30 91 H 24 91/47 L 97 06/28/21 14:28 91 06/28/21 14:00 93 H 25 H 97/53 L 96 06/28/21 13:30 101 H 26 H 116/60 92 06/28/21 13:27 105 H 23 112/66 94 06/28/21 13:10 37.6 C H 101 H 20 116/60 91 Laboratory Results Short CBC 06/28/21 Range/Units 13:37 WBC 14.80 H (4.8-10.8) K/uL Hgb 15.2 (14.0-18.0) g/dL Hct 43.8 (42-52) % Plt Count 287 (130-400) K/uL BMP 06/28/21 13:37 Sodium 138 Potassium 4.0 Chloride 108 H Carbon Dioxide 23 BUN 21 Creatinine 0.90 Glucose 94 Calcium 8.9 Liver Function 06/28/21 Range/Units 13:37 Total Bilirubin 0.5 (0.2-1.0) mg/dl AST 37 (13-39) U/L ALT 47 (7-52) U/L Alkaline Phosphatase 64 (34-104) U/L Albumin 3.9 (3.4-5.0) gm/dl Diagnostic Findings CXR:No acute cardiopulmonary disease. ECG Additional Comments: EKG: Sinus rhythm with occasional PVC. QTc 456.
[2021-06-28] MEDS ORDERED: POLYETHYLENE (MIRALAX) 17 GM PACK PO PRN (20:53)
[2021-06-28] MEDS ORDERED: SODIUM CHLORIDE 0.9% 1000ML 1,000 ML IV ONE (20:53)
[2021-06-28] MEDS ORDERED: ACETAMINOPHEN 325 MG TAB PO PRN (20:53)
[2021-06-28] MEDS ORDERED: ONDANSETRON INJ 2 MG/ML 2 ML VIAL IV PRN (20:53)
[2021-06-28] MEDS ORDERED: MECLIZINE 12.5 MG TAB PO PRN (20:53)
[2021-06-28] MEDS ORDERED: ALBUT/IPRATROP 3MG/0.5MG NEB 3 ML VIAL NEB PRN (21:11)
[2021-06-28] MEDS: ENOXAPARIN INJ 40 MG/0.4 ML SYR SQ SCH (21:33)
[2021-06-28] MEDS: DOXYCYCLINE HYCLATE 100 MG CAP PO SCH (21:34)
[2021-06-28] MEDS: ATORVASTATIN 10 MG TAB PO SCH (21:34)
[2021-06-28] MEDS: ASPIRIN 81 MG ECTAB PO SCH (21:34)
[2021-06-28] MEDS: PANTOprazole 40 MG TAB PO SCH (21:34)
[2021-06-28] MEDS: guaiFENesin 600 MG TABCR PO SCH (21:35)
[2021-06-28] MEDS: PREGABALIN 100 MG CAP PO SCH (21:37)
[2021-06-28] MEDS: ALBUT/IPRATROP 3MG/0.5MG NEB 3 ML VIAL NEB SCH (23:15)
[2021-06-28 23:59] LABS: Appearance Urine Clear (Clear); Bilirubin Urine Negative (Negative); Blood Urine Negative (Negative); Color Urine Yellow; Glucose Urine UA 3+ (Negative); Ketones Urine Negative (Negative); Leukocyte Esterase Urine Negative (Negative); Nitrite Urine Negative (Negative); Protein Urine Negative (Negative); Specific Gravity Urine 1.018 (1.000-1.030); Urobilinogen Urine Negative (Negative)
[2021-06-29] MEDS: ALBUT/IPRATROP 3MG/0.5MG NEB 3 ML VIAL NEB SCH ×4 (07:30→19:23)
[2021-06-29 09:04] LABS: Hematocrit (blood only) 41.6 % (42-52); Hemoglobin 13.9 g/dL (14.0-18.0); Mean Corpuscular Hemoglobin 31.4 pg (25-34); Mean Corpuscular Hgb Conc 33.4 g/dL (32-36); Mean Corpuscular Volume 94.1 fL (80-100); Mean Platelet Volume 10.6 fL (7.4-10.4); Platelet Count 270 K/uL (130-400); RDW Coefficient of Variation 15.3 % (11.5-14.5); RDW Standard Deviation 53.2 fL (36.4-46.3); Red Blood Count 4.42 M/uL (4.7-6.1); White Blood Count 10.51 K/uL (4.8-10.8)
[2021-06-29] MEDS: methylPREDNISolone 40 MG in SYRINGE 0 ML IV SCH (09:16)
[2021-06-29] MEDS: UMECLIDINIUM/VILANTEROL 62.5/25MCG 7 PUFFS/INHALER INH SCH (09:20)
[2021-06-29] MEDS: guaiFENesin 600 MG TABCR PO SCH ×2 (09:23→21:38)
[2021-06-29] MEDS: PREGABALIN 100 MG CAP PO SCH ×2 (09:23→21:37)
[2021-06-29] MEDS: PANTOprazole 40 MG TAB PO SCH ×2 (09:23→21:37)
[2021-06-29] MEDS: ASPIRIN 81 MG ECTAB PO SCH (09:23)
[2021-06-29] MEDS: DOXYCYCLINE HYCLATE 100 MG CAP PO SCH ×2 (09:23→21:37)
[2021-06-29 09:26] LABS: Troponin I High Sensitivity 4.1 pg/ml (0-20)
[2021-06-29 09:30] LABS: BUN Creatinine Ratio 22.7 (10-20); Calcium 8.1 mg/dl (8.5-10.1); Chol HDL Ratio 3.6 (0-5); Creatinine Clr Calc Pharmacy 101.4 ml/min; Est GFR (Non-African American) 94.9 ml/min; Magnesium 2.3 mg/dl (1.7-2.4); Potassium 3.8 mmol/L (3.5-5.1)
[2021-06-29] MEDS: SODIUM CHLORIDE 0.9% 1000ML 1,000 ML IV SCH ×2 (09:33→18:45)
--- NOTE | 2021-06-29 17:20 | Hospitalist Progress Note ---
Date of Service June 29, 2021 Assessment & Plan (1) Acute bronchitis: Plan: Acute COPD Exacerbation CXR:No acute cardiopulmonary disease. COVID, Influenza, RSV screen negative IV solumedrol, bronchodilators Blood culture no growth to date Oxygen support as needed to keep Sats 88-92% Continue doxycycline Currently saturating well on room air Pulmonary Hygiene Normal lactate, Procalcitonin Hypotension Blood pressure improved with IV fluids Hold Lasix for now Monitor BP Continue IV fluids Chest Pain: R/O ACS Troponin:Negative EKG showed no signs of acute ACS CXR as above ECHO no wall motion abnormality Normal lipid panel Denies any chest pain today PVCs on Monitor Monitor on Tele Replace electrolytes as needed GERD Continue PPI Tobacco use disorder 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 Chronic pain syndrome Continue home meds DVT Px: Lovenox SQ Code Status Full Code Admission and Anticipated Discharge Date Admission Date: June 28, 2021 Subjective Patient is seen and examined at bedside States having dizziness Reports chronic abdominal pain Otherwise feels well Less cough today Denies any dyspnea, nausea, vomiting Review of Systems Review of Systems: All systems reviewed & are unremarkable except as noted in Subjective Physical Exam Physical Exam: Physical Exam: Vitals signs as noted above General Appearance:Moderately built and nourished, no apparent distress Head: normocephalic, Atraumatic Eyes: normal inspection, EOMI Neck: supple, Trachea midline Respiratory/Chest: Decreased breath sounds, CTA, No accessory muscle use Cardiovascular: S1, S2, No murmur Abdomen/GI:Soft, Non tender, Bowel sounds present Extremities/Musculoskeletal:normal inspection, Trace edema Neurologic/Psych:AAOX3, grossly no focal neurological deficits Skin: normal color, warm Results & Data Results & Data ([facility]) Vital Signs (Past 12 Hours) Vital Signs Temp Pulse Pulse Resp BP Pulse Ox 06/29/21 16:08 36.6 C 71 18 107/63 93 06/29/21 15:31 71 18 95 06/29/21 15:19 74 06/29/21 11:22 36.5 C 63 18 91/51 L 94 06/29/21 11:20 75 18 95 06/29/21 09:28 62 108/67 06/29/21 07:43 36.5 C 67 18 88/53 L 92 06/29/21 07:31 70 16 95 06/29/21 07:19 64 Laboratory Results Short CBC 06/29/21 Range/Units 08:49 WBC 10.51 (4.8-10.8) K/uL Hgb 13.9 L (14.0-18.0) g/dL Hct 41.6 L (42-52) % Plt Count 270 (130-400) K/uL BMP 06/29/21 08:49 Sodium 140 Potassium 3.8 Chloride 112 H Carbon Dioxide 22 BUN 17 Creatinine 0.75 Glucose 103 H Calcium 8.1 L Urine 06/28/21 Range/Units 23:45 Urine Color Yellow Urine Appearance Clear (Clear) Urine pH 5.0 (4.5-7.5) Ur Specific Mellen 1.018 (1.000-1.030) Urine Protein Negative (Negative) Urine Glucose (UA) 3+ H (Negative)
[2021-06-29] MEDS: ENOXAPARIN INJ 40 MG/0.4 ML SYR SQ SCH (21:35)
[2021-06-29] MEDS: ATORVASTATIN 10 MG TAB PO SCH (21:38)
[2021-06-29] MEDS ORDERED: ALBUT/IPRATROP 3MG/0.5MG NEB 3 ML VIAL NEB STA (23:17)
[2021-06-30] MEDS: ALBUT/IPRATROP 3MG/0.5MG NEB 3 ML VIAL NEB SCH ×3 (07:11→14:19)
[2021-06-30 07:53] LABS: Hematocrit (blood only) 39.7 % (42-52); Hemoglobin 13.3 g/dL (14.0-18.0); Mean Corpuscular Hemoglobin 31.4 pg (25-34); Mean Corpuscular Hgb Conc 33.5 g/dL (32-36); Mean Corpuscular Volume 93.9 fL (80-100); Mean Platelet Volume 10.8 fL (7.4-10.4); Platelet Count 255 K/uL (130-400); RDW Coefficient of Variation 15.5 % (11.5-14.5); RDW Standard Deviation 53.5 fL (36.4-46.3); Red Blood Count 4.23 M/uL (4.7-6.1); White Blood Count 15.17 K/uL (4.8-10.8)
[2021-06-30] MEDS: PANTOprazole 40 MG TAB PO SCH (08:05)
[2021-06-30] MEDS: methylPREDNISolone 40 MG in SYRINGE 0 ML IV SCH (08:05)
[2021-06-30] MEDS: UMECLIDINIUM/VILANTEROL 62.5/25MCG 7 PUFFS/INHALER INH SCH (08:05)
[2021-06-30] MEDS: guaiFENesin 600 MG TABCR PO SCH (08:05)
[2021-06-30] MEDS: DOXYCYCLINE HYCLATE 100 MG CAP PO SCH (08:05)
[2021-06-30] MEDS: ASPIRIN 81 MG ECTAB PO SCH (08:05)
[2021-06-30] MEDS: PREGABALIN 100 MG CAP PO SCH (08:06)
--- NOTE | 2021-06-30 08:07 | XRay Report ---
XR chest 1V portable HISTORY: Shortness of breath. COMPARISON: Chest 06/28/2021. FINDINGS: There are low lung volumes. The heart is normal in size. There is mild diffuse esophageal t hickening, unchanged. This is likely chronic. No new focal lung consolidations to suggest pneumonia. No evidence for pulmonary edema. No pleural effusions. No pneumothorax. Postoperative changes again n oted within the shoulders. IMPRESSION: No significant change compared to the prior study. No acute process. Stable chronic interstitial thic kening. ACT 112: Negative or not required by law. Electronically signed by: Asim Peck M.D. 06/30/2021 8:06 AM
[2021-06-30 08:11] LABS: BUN Creatinine Ratio 22.5 (10-20); Calcium 7.9 mg/dl (8.5-10.1); Creatinine Clr Calc Pharmacy 95.6 ml/min; Est GFR (African American) 107.1 ml/min; Est GFR (Non-African American) 92.4 ml/min; Potassium 3.8 mmol/L (3.5-5.1)
--- NOTE | 2021-06-30 12:44 | Hospitalist Progress Note ---
Date of Service June 30, 2021 Assessment & Plan (1) Acute bronchitis: Plan: Acute COPD Exacerbation CXR:No acute cardiopulmonary disease. COVID, Influenza, RSV screen negative IV solumedrol, bronchodilators Blood culture no growth to date Oxygen support as needed to keep Sats 88-92% Continue doxycycline Currently saturating well on room air Pulmonary Hygiene Normal lactate, Procalcitonin Plan to discharge on prednisone taper course Hypotension BP improved with IV fluids Hold Lasix for now Monitor BP Received IV fluids Chest Pain: R/O ACS Troponin:Negative EKG showed no signs of acute ACS CXR as above ECHO no wall motion abnormality Normal lipid panel Chest pain resolved PVCs on Monitor Monitor on Tele Replace electrolytes as needed GERD Continue PPI Tobacco use disorder 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 Chronic pain syndrome Continue home meds DVT Px: Lovenox SQ Code Status Full Code Admission and Anticipated Discharge Date Admission Date: June 28, 2021 Subjective Patient is seen and examined at bedside Doing well today Dizziness resolved Blood pressure stable No new complaints Cough much improved Denies any dyspnea, chest pain, nausea, vomiting Review of Systems Review of Systems: All systems reviewed & are unremarkable except as noted in Subjective Physical Exam Physical Exam: Physical Exam: Vitals signs as noted above General Appearance:Moderately built and nourished, no apparent distress Head: normocephalic, Atraumatic Eyes: normal inspection, EOMI Neck: supple, Trachea midline Respiratory/Chest: Decreased breath sounds, CTA, No accessory muscle use Cardiovascular: S1, S2, No murmur Abdomen/GI:Soft, Non tender, Bowel sounds present Extremities/Musculoskeletal:normal inspection, Trace edema Neurologic/Psych:AAOX3, grossly no focal neurological deficits Skin: normal color, warm Results & Data Results & Data ([facility]) Vital Signs (Past 12 Hours) Vital Signs Temp Pulse Pulse Resp BP BP Pulse Ox 06/30/21 11:24 36.7 C 76 18 109/64 92 06/30/21 10:27 78 18 95 06/30/21 07:43 61 06/30/21 07:13 72 18 95 06/30/21 06:47 36.5 C 70 18 114/58 L 95 06/30/21 03:05 36.6 C 77 20 109/49 L 96 Laboratory Results Short CBC 06/30/21 Range/Units 07:31 WBC 15.17 H (4.8-10.8) K/uL Hgb 13.3 L (14.0-18.0) g/dL Hct 39.7 L (42-52) % Plt Count 255 (130-400) K/uL [facility] 06/30/21 07:31 Sodium 141 Potassium 3.8 Chloride 113 H Carbon Dioxide 23 BUN 18 Creatinine 0.80 Glucose 87 Calcium 7.9 L
--- NOTE | 2021-06-30 12:52 | Discharge Summary ---
Date of Service June 30, 2021 Admission HPI Per Admitting Provider Patient is a 65-year-old male with history of COPD, GERD, tobacco use disorder, obstructive sleep apnea, chronic pain syndrome, obesity and other medical problems presents with history of chest pain, shortness of breath, cough since 2 days duration. Patient states having worsening shortness of breath, known expectorant cough. He admits to smoking 5 to 6 cigarettes/day. Patient has history of obstructive sleep apnea but currently not using CPAP or is not on oxygen at home. He also states having left-sided chest pain which is burning- like sensation, nonradiating, no aggravating or relieving factors, started at rest yesterday. He denies any pleuritic pain, chest trauma. He admits to having anxiety issues. Also reports having chronic abdominal pain which he follows with [facility] gastroenterology. He also states having dizziness, nausea but denies any syncopal episode, vomiting, diarrhea. He states having used his nebulizers at home but no much improvement. Denies any history of palpitations, diaphoresis, hemoptysis, fever, chills, fall, headache, change in vision, sick contact, recent change in medications. He has been vaccinated for COVID. Admission Exam Per Admitting Provider Physical Exam Physical Exam: Physical Exam: Vitals signs as noted above General Appearance:Moderately built and nourished, no apparent distress Head: normocephalic, Atraumatic Eyes: normal inspection, EOMI Neck: supple, Trachea midline Respiratory/Chest: Decreased breath sounds, CTA, No accessory muscle use Cardiovascular: S1, S2, No murmur Abdomen/GI:Soft, Non tender, Bowel sounds present Extremities/Musculoskeletal:normal inspection, Trace edema Neurologic/Psych:AAOX3, grossly no focal neurological deficits Skin: normal color, warm Principal Diagnosis Acute COPD Exacerbation Hypotension Discharge Data Allergies Allergy/AdvReac Type Severity Reaction Status Date / Time fluticasone furoate Allergy Intermediate lightheadedness Verified 06/28/21 13:59 [From Trelegy Ellipta] and nausea umeclidinium Allergy Intermediate lightheadedness Verified 06/28/21 13:59 [From Trelegy Ellipta] and nausea vilanterol Allergy Intermediate lightheadedness Verified 06/28/21 13:59 [From Trelegy Ellipta] and nausea Consultations 06/28/21 17:54 ED Decision to Admit Stat Hospital Course (1) Acute bronchitis: Acute COPD Exacerbation CXR:No acute cardiopulmonary disease. COVID, Influenza, RSV screen negative IV solumedrol, bronchodilators Blood culture no growth to date Oxygen support as needed to keep Sats 88-92% Continue doxycycline Currently saturating well on room air Pulmonary Hygiene Normal lactate, Procalcitonin Plan to discharge on prednisone taper course Hypotension BP improved with IV fluids Hold Lasix for now Monitor BP Received IV fluids Chest Pain: R/O ACS Troponin:Negative EKG showed no signs of acute ACS CXR as above ECHO no wall motion abnormality Normal lipid panel Chest pain resolved PVCs on Monitor Monitor on Tele Replace electrolytes as needed GERD Continue PPI Tobacco use disorder 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 needed 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 Chronic pain syndrome Continue home meds DVT Px: Lovenox SQ Code Status Full Code Total Time Total Time Spent Total Time Spent (In Minutes): 44 minutes Discharge Plan Discharge Items Patient Disposition: Home - Self-Care Reason For Visit: COPD EXACERBATION Discharge Diagnosis: Acute COPD Exacerbation Hypotension Activity: Per Instructions section Exercise/Sports: Gradually increase as tolerated Non-emergency contact: Primary Care Provider Call non-emergency contact if: you have any medication questions, your symptoms worsen, your pain is concerning for you and you have a fever Follow-up/Referrals: Marie Weaver DO [Primary Care Provider] - (Date & Time 07/08/2021 11:10 AM Provider Marie Weaver DO Department [facility] ) Diet: Heart Healthy Addtl Attending Provider Instructions: Follow-up with your primary care physician on 07/08/2021 11:10 AM Complete the antibiotic, steroid course as prescribed. Prednisone taper course Start taking prednisone 20 mg daily for 2 days, then take 10 mg daily for 2 days and stop. Seek immediate medical attention if your symptoms reoccur or worsen Please take all medications as instructed on discharge list below. Please call if you have any questions or problems. You can reach a [facility] hospitalist on duty at [facility] 24 hours a day by calling [phone] Pending Studies at Discharge: Yes Studies:: Blood Culture Stand-Alone Forms: My [facility], Smoking Cessation Medications and DC Order Prescriptions: New doxycycline hyclate 100 mg Capsule 100 mg PO BID Qty: 6 RF: 0 prednisone 10 mg tablet 10 mg PO UD Qty: 6 RF: 0 Continued Anoro Ellipta 62.5-25 mcg/actuation blister with device 1 inh inhalation DAILY RF: 0 levalbuterol HCl 1.25 mg/3 mL solution for nebulization 1.25 mg INHALATION QID PRN (Reason: Shortness Of Breath Or Wheezing) Qty: 90 RF: 1 atorvastatin [Lipitor] 10 mg Tablet 10 mg PO QPM RF: 0 pregabalin [Lyrica] 100 mg Capsule 100 mg PO BID RF: 0 pantoprazole [Protonix] 40 mg tablet,delayed release (DR/EC) 40 mg PO BID 30 Days Qty: 60 RF: 2 furosemide 20 mg tablet 20 mg PO Q24H RF: 0 meclizine 12.5 mg tablet 12.5 mg PO TID PRN (Reason: Dizziness) RF: 0 Discharge Orders: Discharge Order (Routine); Ordered 06/30/21 Ordered By: Demetri Law Admission Data Admit Date/Time: 06/28/21 17:49 Attending Provider: Demetri Law Admit Provider: Demetri Law Primary Care Provider: Marie Weaver Other Providers: Demetri Law
--- NOTE | 2021-06-30 14:53 | Electrocardiogram Report ---
Test Reason : Blood Pressure : / mmHG Vent. Rate : 063 BPM Atrial Rate : 063 BPM P-R Int : 170 ms QRS Dur : 088 ms QT Int : 438 ms P-R-T Axes : 070 033 046 degrees QTc Int : 448 ms Normal sinus rhythm Normal ECG When compared with ECG of 28-JUN-2021 13:32, Premature ventricular complexes are no longer Present Vent. rate has decreased BY 37 BPM Confirmed by José Luis Rios ([id number]) on 06/30/2021 2:52:47 PM Referred By: REFERRED SELF Confirmed By:José Luis Rios
== END 2021-06-30 15:29 | disposition home or self-care (01) | DRG 192 ==
LOC: ED 13:22 → 2N 13:22 → OBSVTOIN 17:49 → 2N 20:37

== ENCOUNTER 2021-10-22 23:35 | Inpatient (IN) ==
[2021-10-23 00:55] LABS: Basophils # (auto) 0.03 K/uL (0-0.2); Basophils % (auto) 0.2 %; Eosinophils # (auto) 0.02 K/uL (0-0.50); Eosinophils % (auto) 0.2 %; Hematocrit (blood only) 43.7 % (40.1-51.0); Hemoglobin 14.9 g/dl (14.0-18.0); Immature Granulocytes # (auto) 0.03 K/uL (0.00-0.02); Immature Granulocytes % (auto) 0.2 %; Lymphocytes # (auto) 2.41 K/uL (1.2-3.4); Lymphocytes % (auto) 19.8 %; Mean Corpuscular Hemoglobin 31.5 pg (25.0-34.0); Mean Corpuscular Hgb Conc 34.1 g/dL (32.0-36.0); Mean Corpuscular Volume 92.4 fL (80.0-100.0); Mean Platelet Volume 10.7 fL (9.4-12.4); Monocytes # (auto) 1.43 K/uL (0.24-0.82); Monocytes % (auto) 11.7 %; Neutrophils # (auto) 8.28 K/uL (1.4-6.5); Neutrophils % (auto) 67.9 %; Platelet Count 274 K/uL (130-400); RDW Standard Deviation 51.5 fL (36.4-46.3); Red Blood Count 4.73 M/uL (4.63-6.08)
[2021-10-23 01:18] LABS: Albumin Globulin Ratio 1.5 (0.9-2); BUN Creatinine Ratio 28.3 (10-20); Bilirubin,Total 0.3 mg/dl (0.2-1.0); Calcium 9.1 mg/dl (8.5-10.1); Creatinine Clr Calc Pharmacy 82.7 ml/min; Est GFR (African American) 99.4 ml/min; Est GFR (Non-African American) 85.8 ml/min; Globulin 2.6 gm/dl (2.5-4.0); Magnesium 1.9 mg/dl (1.7-2.4); Potassium 3.8 mmol/L (3.5-5.1); Total Protein 6.6 gm/dl (6.0-8.3)
[2021-10-23 01:22] LABS: Troponin I High Sensitivity 6.2 pg/ml (0-20)
[2021-10-23 01:34] LABS: Partial Thromboplastin Ratio 0.9; Partial Thromboplastin Time 24.1 Seconds (21.0-31.0); Prothrombin Time 10.3 Seconds (9.0-12.0)
[2021-10-23] MEDS ORDERED: SODIUM CHLORIDE 0.9% 500 ML IV ONE (02:19)
[2021-10-23] MEDS ORDERED: methylPREDNISolone 125 MG/2 ML VIAL IV STA (02:19)
[2021-10-23] MEDS ORDERED: guaiFENesin 600 MG TABCR PO STA (02:19)
[2021-10-23] MEDS ORDERED: ALBUT/IPRATROP 3MG/0.5MG NEB 3 ML VIAL NEB ONE (02:19)
[2021-10-23] MEDS ORDERED: AZITHROMYCIN 500 MG in DEXTROSE 5% 250 ML IV STA (04:11)
--- NOTE | 2021-10-23 04:50 | Emergency Department Note ---
Impression & Plan COPD exacerbation, Leukocytosis, Shortness of breath at rest ED Provider Note NAME: ANGELES BURLESON AGE: 65 SEX: M ARRIVES VIA: Walk-In INFORMANT: Patient ED PROVIDER(S): Pete Agee MD CHIEF COMPLAINT: SOB PLAN: Disposition: Admit MEDICAL DECISION MAKING: The patient is a pleasant 65-year-old gentleman with a past medical history of COPD who presents to the emergency department for evaluation of persistent cough, congestion shortness of breath over the past 5 days. He reports thick clear sputum. He denies any recent fevers. Denies nausea, vomiting, diarrhea or urinary symptoms. He reports he did take a COVID-19 test and this was negat pankaj. Is if fully vaccinated against Covid-19. On arrival, the patient is uncomfortable/dyspneic appearing but in no acute distress, afebrile stable vital signs. He appears clinically dry. He has di ffuse wheezes bilaterally. EKG without Overt acute ischemia. Chest x-ray negative for acute cardi opulmonary process with chronic interstitial thickening seen per my preliminary review. WBC 12.2K, nonspecific. H/H and platelets within normal limits. Chemistry without metabolic acidosis. Electrolytes and LFTs without significant abnormality. High-sensitivity troponin 6.2, within normal limits. COVID-19 RNA, ROBBIE test was negative. He was treated with IV fluid hydration, Solu- Medrol, guaifenesin, hour-long continuous DuoNeb. Upon reevaluation the patient did have improved air movement though still with diffuse wheezes and slight increased work of breathing. Given the persistence of his symptoms he did agree with plan for admission. Azithromycin for COPD flare ordered. Case was discussed with Dr. Calderon, [facility] hospitalist, who will evaluate the patient for admission. Triage Nursing notes reviewed and agree them. Prior medical records reviewed Vital Signs: reviewed and remarkable for no significant abnormalities Differential diagnosis: Reactive airway disease, pneumonia, pneumothorax, COPD, CHF, infections, cardiac ischemia, pulmonary embolism, musculoskeletal, gastrointestinal, as well as othe r pathologies. ER treatment provided: See below. Diagnostics interpreted by me: ECG: Normal sinus rhythm, 82 bpm, no ectopy, no overt ST elevation or depression, QTC 457, QRS 88. Cardiac Monitoring: An order for continuous cardiac monitoring was placed and demonstrated Normal sinus rhythm, 82 bpm, no ectopy. Laboratory studies: See below Imaging studies: See below Consultation(s): Case was discussed with Dr. Calderon, [facility] hospitalist, who will evaluate the patient for admission. HPI: The patient is a pleasant 65-year-old gentleman with a past medical history of COPD who presents to the emergency department for evaluation of persistent cough, congestion shortness of breath over the past 5 days. He reports thick clear sputum. He denies any recent fevers. Denies nausea, vomiting, diarrhea or urinary symptoms. He reports he did take a COVID-19 test and this was negative. Is if fully vaccinated against Covid-19. ROS: See above HPI for pertinent positives & negatives. A total of 10 systems reviewed and were otherwise negative. VITALS:See Below PHYSICAL EXAMINATION: GENERAL: Awake, alert, fatigued-appearing, in no distress HENT: Normocephalic, atraumatic. Oropharynx with dry mucous membranes and otherwise unremarkable. EYES: Normal conjunctiva. Sclera non-icteric. NECK: Supple. No nuchal rigidity. FROM. No JVD. RESPIRATORY: Diffuse wheezes bilaterally. CARDIAC: Regular rate, normal rhythm. Extremities warm and well perfused. Pulses equal. ABDOMEN: Soft, non-distended. No tenderness to palpation. No rebound or guarding. No masses. RECTAL: Deferred. MUSCULOSKELETAL: Chest examination reveals no tenderness. The back is symmetrical on inspection without obvious abnormality. There is no CVA tenderness to palpation. No joint edema. LOWER EXTREMITIES: Calves are equal size bilaterally and non-tender. No edema. No discoloration. NEURO: Normal sensorium. No sensory or motor deficits noted. SKIN: No rash or jaundice noted. Pete Agee MD Past Med/Surg History Medical History Acute on chronic respiratory failure Anxiety COPD exacerbation COPD, moderate PFT 06/2018 Diaphragmatic hernia GERD (gastroesophageal reflux disease) High cholesterol Histoplasmosis History of broken leg HLD (hyperlipidemia) Left femoral shaft fracture juan carlos placed Lung abscess Morbid obesity due to excess calories Neuropathy TAYLOR (obstructive sleep apnea) Pneumothorax Post-nasal drip Thoracic spinal stenosis Tobacco use Viral upper respiratory illness Surgical History H/O elbow surgery H/O exploratory thoracotomy "Left thoracotomy wedge biopsy of left upper lobe with excision of lesion or nodule & frozen section 2002" H/O hernia repair "[facility] incarcerated supraumbilical hernia repair open no mesh 02/17/01" H/O total hip arthroplasty left side History of hand surgery History of placement of chest tube History of sinus surgery History of total replacement of both shoulder joints Family History Father Heart disease Hypertension Brother Cancer Hypertension Stroke Heart disease Mother Cancer Other Leukemia No family history of bleeding disorder Non-Hodgkin lymphoma Denies family history of Hearing loss Asthma Social History Smoking Status: Current every day smoker Tobacco Type: Cigarettes and Cigars Age Started Using Tobacco: 11; packs per day: 1; Cigarettes Per Day: 5-6 cigarettes per day; Second Hand Exposure: No; Hx Alcohol Use: No Hx Substance Use: No Preferred Language: Lao Communication Ability: Effective 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 Beliefs That Will Affect Care: None marital status: Current Living Situation: Spouse current occupational status: unemployed Feels Safe at Home: Yes Assistive Devices: None Allergies Allergies Allergy/AdvReac Type Severity Reaction Status Date / Time fluticasone furoate Allergy Intermediate lightheadedness Verified 06/28/21 13:59 [From Trelegy Ellipta] and nausea umeclidinium Allergy Intermediate lightheadedness Verified 06/28/21 13:59 [From Trelegy Ellipta] and nausea vilanterol Allergy Intermediate lightheadedness Verified 06/28/21 13:59 [From Trelegy Ellipta] and nausea Home Meds Home Medications Medication Instructions Recorded Confirmed atorvastatin 10 mg tablet (Lipitor) 10 mg PO QPM 10/16/17 06/28/21 pregabalin 100 mg capsule (Lyrica) 100 mg PO BID 10/16/17 06/28/21 umeclidinium 62.5 mcg-vilanterol 1 inh inhalation DAILY 05/28/21 06/28/21 25 mcg/actuation powdr for inhalation (Anoro Ellipta) furosemide 20 mg tablet 20 mg PO Q24H 06/28/21 06/28/21 meclizine 12.5 mg tablet 12.5 mg PO TID PRN Dizziness 06/28/21 06/28/21 Previous Rx's Medication Instructions Recorded pantoprazole 40 mg tablet,delayed 40 mg PO BID 30 days #60 tabs 03/02/21 release (Protonix) levalbuterol HCl 1.25 mg/3 mL 1.25 mg (3 mL) inhalation QID PRN 05/28/21 solution for nebulization Shortness Of Breath Or Wheezing #90 vials doxycycline hyclate 100 mg capsule 100 mg PO BID #6 caps 06/30/21 prednisone 10 mg tablet 10 mg PO UD #6 tabs 06/30/21 Results & Data (ED) Vital Signs Vital Signs - 24 hr 10/22/21 23:54 10/22/21 23:58 10/23/21 01:35 Temperature 36.0 C L Temperature Source Temporal Artery Scan Pulse Rate 91 H Pulse Rate [Finger] Respiratory Rate 16 Respiratory Effort / Characteristics Non-Labored Non-Labored Respiratory Depth Normal Respiratory Pattern Regular Blood Pressure 128/73 Blood Pressure [Left Arm] Blood Pressure Mean 91 Blood Pressure Mean [Left Arm] Blood Pressure Position Sitting Blood Pressure Position [Left Arm] Pulse Oximetry 93 Oxygen Delivery Method Room Air Room Air Sepsis Recent Fever Within 48 Hours No Sepsis New/Unexplained Change in Mental Status N/A Sepsis Action Taken by Nursing No Action Required 10/23/21 01:35 10/23/21 02:38 10/23/21 03:00 Temperature Temperature Source Pulse Rate Pulse Rate [Finger] 67 72 Respiratory Rate 18 17 Respiratory Effort / Characteristics Spontaneous Short of Breath Respiratory Depth Respiratory Pattern Blood Pressure Blood Pressure [Left Arm] 123/69 Blood Pressure Mean Blood Pressure Mean [Left Arm] 87 Blood Pressure Position Blood Pressure Position [Left Arm] Pulse Oximetry 97 99 Oxygen Delivery Method Room Air Room Air Sepsis Recent Fever Within 48 Hours Sepsis New/Unexplained Change in Mental Status Sepsis Action Taken by Nursing 10/23/21 05:02 Temperature Temperature Source Pulse Rate Pulse Rate [Finger] 107 H Respiratory Rate 22 Respiratory Effort / Characteristics Respiratory Depth Respiratory Pattern Blood Pressure Blood Pressure [Left Arm] 99/51 L Blood Pressure Mean Blood Pressure Mean [Left Arm] 67 Blood Pressure Position Blood Pressure Position [Left Arm] Right Lateral Pulse Oximetry Oxygen Delivery Method Sepsis Recent Fever Within 48 Hours Sepsis New/Unexplained Change in Mental Status Sepsis Action Taken by Nursing Laboratory Data Attestation: I reviewed the patient's lab results. Result diagrams: 10/23/21 07:42 10/23/21 07:42 Lab Results 10/23/21 10/23/21 10/23/21 Range/Units 00:16 00:16 00:16 WBC 12.20 H (4.8-10.8) K/ul RBC 4.73 (4.63-6.08) M/uL Hgb 14.9 (14.0-18.0) g/dl Hct 43.7 (40.1-51.0) % MCV 92.4 (80.0-100.0) fL MCH 31.5 (25.0-34.0) pg MCHC 34.1 (32.0-36.0) g/dL RDW Std Deviation 51.5 H (36.4-46.3) fL RDW Coeff of Jaz 15.0 H (11.5-14.5) % Plt Count 274 (130-400) K/uL MPV 10.7 (9.4-12.4) fL Immature Gran % (Auto) 0.2 % Neut % (Auto) 67.9 % Lymph % (Auto) 19.8 % [place] % (Auto) 11.7 % Eos % (Auto) 0.2 % Baso % (Auto) 0.2 % Neut # (Auto) 8.28 H (1.4-6.5) K/uL Lymph # (Auto) 2.41 (1.2-3.4) K/uL [place] # (Auto) 1.43 H (0.24-0.82) K/uL Eos # (Auto) 0.02 (0-0.50) K/uL Baso # (Auto) 0.03 (0-0.2) K/uL Immature Gran # (Auto) 0.03 H (0.00-0.02) K/uL PT 10.3 (9.0-12.0) Seconds INR 1.0 (0.9-1.1) APTT 24.1 (21.0-31.0) Seconds PTT Ratio 0.9 Sodium 140 (136-145) mmol/L Potassium 3.8 (3.5-5.1) mmol/L Chloride 109 H (98-107) mmol/L Carbon Dioxide 25 (21-32) mmol/L Anion Gap 6 (3-11) BUN 26 H (6-23) mg/dl Creatinine 0.92 (0.6-1.4) mg/dl Est Cr Clr Drug Dosing 82.7 ml/min Est GFR ( Amer) 99.4 ml/min Est GFR (Non-Af Amer) 85.8 ml/min BUN/Creatinine Ratio 28.3 H (10-20) Glucose 119 H (70-99(Fasting)) mg/dl Calcium 9.1 (8.5-10.1) mg/dl Magnesium 1.9 (1.7-2.4) mg/dl Total Bilirubin 0.3 (0.2-1.0) mg/dl AST 30 (13-39) U/L ALT 50 (7-52) U/L Alkaline Phosphatase 69 (34-104) U/L Troponin I High Sens 6.2 (0-20) pg/ml Total Protein 6.6 (6.0-8.3) gm/dl Albumin 4.0 (3.4-5.0) gm/dl Globulin 2.6 (2.5-4.0) gm/dl Albumin/Globulin Ratio 1.5 (0.9-2) SARS-CoV-2, RNA, NAAT (NEGATIVE) 10/23/21 Range/Units 00:16 WBC (4.8-10.8) K/ul RBC (4.63-6.08) M/uL Hgb (14.0-18.0) g/dl Hct (40.1-51.0) % MCV (80.0-100.0) fL MCH (25.0-34.0) pg MCHC (32.0-36.0) g/dL RDW Std Deviation (36.4-46.3) fL RDW Coeff of Jaz (11.5-14.5) % Plt Count (130-400) K/uL MPV (9.4-12.4) fL Immature Gran % (Auto) % Neut % (Auto) % Lymph % (Auto) % [place] % (Auto) % Eos % (Auto) % Baso % (Auto) % Neut # (Auto) (1.4-6.5) K/uL Lymph # (Auto) (1.2-3.4) K/uL [place] # (Auto) (0.24-0.82) K/uL Eos # (Auto) (0-0.50) K/uL Baso # (Auto) (0-0.2) K/uL Immature Gran # (Auto) (0.00-0.02) K/uL PT (9.0-12.0) Seconds INR (0.9-1.1) APTT (21.0-31.0) Seconds PTT Ratio Sodium (136-145) mmol/L Potassium (3.5-5.1) mmol/L Chloride (98-107) mmol/L Carbon Dioxide (21-32) mmol/L Anion Gap (3-11) BUN (6-23) mg/dl Creatinine (0.6-1.4) mg/dl Est Cr Clr Drug Dosing ml/min Est GFR ( Amer) ml/min Est GFR (Non-Af Amer) ml/min BUN/Creatinine Ratio (10-20) Glucose (70-99(Fasting)) mg/dl Calcium (8.5-10.1) mg/dl Magnesium (1.7-2.4) mg/dl Total Bilirubin (0.2-1.0) mg/dl AST (13-39) U/L ALT (7-52) U/L Alkaline Phosphatase (34-104) U/L Troponin I High Sens (0-20) pg/ml Total Protein (6.0-8.3) gm/dl Albumin (3.4-5.0) gm/dl Globulin (2.5-4.0) gm/dl Albumin/Globulin Ratio (0.9-2) SARS-CoV-2, RNA, NAAT NEGATIVE (NEGATIVE) Administered Medications Enoxaparin Sodium (Enoxaparin Inj 40 Mg/0.4 Ml Syr) 40 mg SQ DAILY YUN Stop: 11/22/21 06:59 Last Admin: 10/23/21 07:12 Dose: 40 mg Documented By: TRH Methylprednisolone 40 mg/ (Syringe) 0.64 mls @ 1.5 mls/min IV TID YUN Stop: 11/22/21 08:59 Last Admin: 10/23/21 14:27 Dose: 1.5 mls/min Documented By: Admin: 10/23/21 09:29 Dose: 1.5 mls/min Documented By: TRH Ipratropium [place] (Ipratropium [place] Neb Soln 0.02% 2.5 Ml Vial) 0.5 mg INH Q6R YUN Stop: 11/22/21 06:59 Last Admin: 10/23/21 13:41 Dose: 0.5 mg Documented By: [id number] Admin: 10/23/21 07:08 Dose: 0.5 mg Documented By: [id number] Levalbuterol HCl (Levalbuterol 1.25mg/0.5ml Neb) 1.25 mg INH Q6R YUN Stop: 11/22/21 06:59 Last Admin: 10/23/21 13:41 Dose: 1.25 mg Documented By: [id number] Admin: 10/23/21 07:08 Dose: 1.25 mg Documented By: [id number] Lidocaine (Lidocaine 5% 1 Patch) 1 patch TD QAM YUN Stop: 11/22/21 15:14 Last Admin: 10/23/21 16:45 Dose: Not Given Documented By: ÁNGEL Pantoprazole Sodium (Pantoprazole 40 Mg Tab) 40 mg PO BID YUN Stop: 11/22/21 08:59 Last Admin: 10/23/21 09:29 Dose: 40 mg Documented By: ÁNGEL Pregabalin (Pregabalin 100 Mg Cap) 100 mg PO BID YUN Stop: 11/22/21 08:59 Last Admin: 10/23/21 09:29 Dose: 100 mg Documented By: ÁNGEL Discontinued Medications Albuterol (Albut/Ipratrop 3mg/0.5mg Neb 3 Ml Vial) 12 ml NEB ONE ONE; Protocol Stop: 10/23/21 02:20 Last Admin: 10/23/21 02:37 Dose: 12 ml Documented By: ARYAN Guaifenesin (Guaifenesin 600 Mg Tabcr) 1,200 mg PO NOW STA Stop: 10/23/21 02:20 Last Admin: 10/23/21 02:46 Dose: 1,200 mg Documented By: JOHAN Sodium Chloride (Nss) 500 mls @ 999 mls/hr IV .Q31M ONE Stop: 10/23/21 02:49 Last Infusion: 10/23/21 03:25 Dose: 0 mls/hr Documented By: Admin: 10/23/21 02:47 Dose: 999 mls/hr Documented By: JOHAN Azithromycin 500 mg/ Dextrose 255 mls @ 127.5 mls/hr IV NOW STA Stop: 10/23/21 06:10 Last Infusion: 10/23/21 07:18 Dose: 0 mls/hr Documented By: Admin: 10/23/21 04:58 Dose: 127.5 mls/hr Documented By: GEORGINA Ioversol (Optiray 300 500ml) 125 ml IV ONCE ONE Stop: 10/23/21 06:38 Last Admin: 10/23/21 06:37 Dose: 125 ml Documented By: DWAYNE Methylprednisolone (Methylprednisolone 125 Mg/2 Ml Vial) 125 mg IV NOW STA Stop: 10/23/21 02:20 Last Admin: 10/23/21 02:46 Dose: 125 mg Documented By: JOHAN Imaging Data Radiologist's Impression: Chest X-Ray 10/22/21 23:57 XR chest 1V portable CLINICAL HISTORY: SOB TECHNIQUE: Single frontal radiograph of the chest was obtained. Comparison: Comparison is made to chest radiograph 06/29/2021 and low-dose CT chest 01/07/2021 FINDINGS: Plate and screw fixation hardware is in the right humerus, stable left total reverse arthroplasty. Calcified aortic knob is seen. Reticular interstitial opacities are seen. No evidence of pleural effusion or pneumothorax. IMPRESSION: No acute chest disease. Stable interstitial thickening. ACT 112: Negative or not required by law. Electronically signed by: Florin Soto M.D. 10/23/2021 8:13 AM Discharge Plan Visit Data Chief Complaint: Shortness of Breath/Dyspnea Stated Complaint: HARD TIME BREATHING ED Provider: Pete Agee Discharge Problem: COPD exacerbation, Leukocytosis, Shortness of breath at rest Patient Disposition: Admitted As Inpatient Discharge Instructions Interventions: ED Discharge Assessment Last Done: 10/23/21 06:07
[2021-10-23] MEDS ORDERED: BENZONATATE 100 MG CAPSULE PO PRN (06:06)
[2021-10-23] MEDS ORDERED: POLYETHYLENE (MIRALAX) 17 GM PACK PO PRN (06:06)
[2021-10-23] MEDS ORDERED: MECLIZINE 12.5 MG TAB PO PRN (06:06)
[2021-10-23] MEDS ORDERED: NITROGLYCERIN SL 0.4 MG/TAB TAB SL PRN (06:06)
[2021-10-23] MEDS ORDERED: ACETAMINOPHEN 325 MG TAB PO PRN (06:06)
[2021-10-23] MEDS ORDERED: OPTIRAY 300 500mL IV ONE (06:37)
--- NOTE | 2021-10-23 06:59 | CT Scan Report ---
CT ANGIOGRAPHY OF THE CHEST, PULMONARY EMBOLUS PROTOCOL CLINICAL HISTORY: Difficulty breathing. COMPARISON STUDY: Chest radiograph October 23, 2021. Chest CT January 07, 2021. TECHNIQUE: Following IV administration of 125 mL of Optiray, helical axial images of the chest were o btained utilizing the pulmonary embolus protocol. Maximal intensity projections and sagittal and cor onal reformats were viewed on an independent 3D workstation. IV contrast was administered without co mplication. Automated exposure control was utilized for the study. A dose lowering technique was ut ilized adhering to the principles of ALARA. CT DOSE: 599.90 mGy.cm FINDINGS: No pulmonary emboli are identified although the segmental and subsegmental pulmonary arter ies are suboptimally assessed due to respiratory motion. There is no pericardial effusion. Extensive coronary artery calcification is present. Cardiac size is at the upper limits of normal. No thoracic lymphadenopathy is present. There is no pneumothorax or pleural effusion. Emphysema is noted. There a re postoperative findings within the left upper lobe. Lungs are suboptimally assessed due to respirat ory motion. No consolidation is identified. Subpleural opacities favor atelectasis. No acute fracture within the visualized bony thorax. There are old left-sided rib fractures. Calcifications within the pancreas are incidentally noted. IMPRESSION: 1. No pulmonary emboli identified although segmental and subsegmental pulmonary arteries suboptimally assessed due to respiratory motion. 2. Emphysema. 3. No consolidation to suggest pneumonia. Subpleural opacities which favor atelectasis. ACT 112: Negative or not required by law. Electronically signed by: Jose A Hernandez M.D. 10/23/2021 6:57 AM
[2021-10-23] MEDS ORDERED: XOPENEX/ATROVENT 1.25mg/0.5MG NEB COMBO NEB SCH (07:00)
[2021-10-23] MEDS: IPRATROPIUM BROMIDE NEB SOLN 0.02% 2.5 ML VIAL INH SCH ×3 (07:08→19:56)
[2021-10-23] MEDS: LEVALBUTEROL 1.25MG/0.5ML NEB INH SCH ×3 (07:08→19:56)
[2021-10-23] MEDS: ENOXAPARIN INJ 40 MG/0.4 ML SYR SQ SCH (07:12)
--- NOTE | 2021-10-23 07:16 | History and Physical Report ---
DATE OF ADMISSION: 10/23/2021. CHIEF COMPLAINT: Shortness of breath. HISTORY OF PRESENT ILLNESS: This is a 65-year-old male with past medical history significant for COPD, mild sleep apnea, GERD, hiatal hernia, senile osteoporosis, chronic pain syndrome, obesity, tobacco abuse disorder. Smokes half pack a day, comes in with shortness of breath. The patient says since last Tuesday he is getting short of breath, bringing whitish yellow phlegm. Denies any fever. Has some chest pain in the middle of the chest, stabbing kind of pain, 4/10 in severity, no radiation, constant pain. No nausea. Has headaches, no blurred visions, no earache. Has some runny nose, some sore throat. Appetite is okay. Has abdominal pain from his hernia. Normal bowel and bladder movements. No swelling in the legs. ALLERGIES: FLUTICASONE. PAST MEDICAL HISTORY: As mentioned above. PAST SURGICAL HISTORY: Colonoscopy, EGD, left shoulder joint surgery, left thoracotomy with wedge biopsy of left upper lobe, umbilical hernia repair, right elbow surgery. MEDICATIONS: The patient is on Lipitor 10 mg p.o. daily, levalbuterol 1.25 mg nebulization q.i.d. p.r.n., Protonix 40 mg p.o. b.i.d., Lyrica 100 mg p.o. b.i.d., umeclidinium/vilanterol 1 inhalation daily. FAMILY HISTORY: Significant for brother has leukemia, mother has non-Hodgkin's lymphoma, father has alcohol abuse disorder, brother has stroke. SOCIAL HISTORY: . Smokes half pack a day for last 45 years. No alcohol use. No drug use. REVIEW OF SYSTEMS: As per HPI. Rest of the review of systems is negative. PHYSICAL EXAMINATION: GENERAL: The patient is of moderate build, not in acute distress. VITAL SIGNS: Temperature 36, pulse 72, respiratory rate 22, blood pressure 99/51, oxygen 96 % on room air. HEENT: Pupils equal, round and reactive to light. Oral mucosa moist. NECK: No JVD, no neck masses. CARDIOVASCULAR: S1 and S2 heard, regular rate and rhythm. No murmur, no gallop. RESPIRATORY SYSTEM: Normal AP diameter. No accessory muscle use. Bilateral wheezing and rhonchi heard. ABDOMEN: Soft, bowel sounds present, nontender, no distention. CENTRAL NERVOUS SYSTEM: Cranial nerves II-XII grossly intact, nonfocal. EXTREMITIES: No edema, no erythema. LABORATORY DATA: WBC 12.2, hemoglobin 14.9, hematocrit 43.7, platelets 274. PT10.3, INR 1, APTT 24.1. Sodium 140, potassium 3.8, chloride 109, bicarbonate 25, BUN 26, creatinine 0.9, serum glucose 109, calcium 9.1, magnesium 1.9, total bilirubin 0.3, AST 30, ALT 50, alkaline phosphatase 69. Troponin 1 high sensitivity 6.2. SARS-CoV-2 rapid test negative. IMAGING DATA: Chest x-ray, no acute findings. EKG: Normal sinus rhythm with a rate of 82, no significant change was found. ASSESSMENT AND PLAN: This is a 65-year-old male who presents with chronic obstructive pulmonary disease exacerbation. 1. Chronic obstructive pulmonary disease exacerbation: Will treat with nebs round the clock and p.r.n., IV Solu-Medrol 40 t.i.d., p.o. doxycycline, and monitor in the hospital. 2. Chest pain: Rule out acute coronary syndrome. Serial enzymes, echo. He is also do CTA of chest. 3. Hyperlipidemia: On statin. 4. Gastroesophageal reflux disease: On Protonix. 5. Tobacco abuse: Needs counseling. 6. Deep venous thrombosis prophylaxis: Lovenox. DISPOSITION: Closely monitor in the med tele. PT/OT prior to discharge. Social service to help with discharge planning. Job ID: [id number] [facility]
[2021-10-23 07:51] LABS: Hematocrit (blood only) 41.5 % (40.1-51.0); Hemoglobin 13.9 g/dl (14.0-18.0); Mean Corpuscular Hemoglobin 31.2 pg (25.0-34.0); Mean Corpuscular Hgb Conc 33.5 g/dL (32.0-36.0); Mean Corpuscular Volume 93.3 fL (80.0-100.0); Mean Platelet Volume 10.5 fL (9.4-12.4); Platelet Count 258 K/uL (130-400); RDW Coefficient of Variation 15.4 % (11.5-14.5); RDW Standard Deviation 52.6 fL (36.4-46.3); Red Blood Count 4.45 M/uL (4.63-6.08); White Blood Count 10.61 K/ul (4.8-10.8)
[2021-10-23 08:12] LABS: Basophils # (auto) 0.01 K/uL (0-0.2); Basophils % (auto) 0.1 %; Immature Granulocytes # (auto) 0.03 K/uL (0.00-0.02); Immature Granulocytes % (auto) 0.3 %; Lymphocytes # (auto) 0.76 K/uL (1.2-3.4); Lymphocytes % (auto) 7.2 %; Monocytes # (auto) 0.16 K/uL (0.24-0.82); Monocytes % (auto) 1.5 %; Neutrophils # (auto) 9.65 K/uL (1.4-6.5); Neutrophils % (auto) 90.9 %
--- NOTE | 2021-10-23 08:15 | XRay Report ---
XR chest 1V portable CLINICAL HISTORY: SOB TECHNIQUE: Single frontal radiograph of the chest was obtained. Comparison: Comparison is made to chest radiograph 06/29/2021 and low-dose CT chest 01/07/2021 FINDINGS: Plate and screw fixation hardware is in the right humerus, stable left total reverse arthroplasty. Ca lcified aortic knob is seen. Reticular interstitial opacities are seen. No evidence of pleural effusi on or pneumothorax. IMPRESSION: No acute chest disease. Stable interstitial thickening. ACT 112: Negative or not required by law. Electronically signed by: Florin Soto M.D. 10/23/2021 8:13 AM
[2021-10-23 08:23] LABS: Troponin I High Sensitivity 6.1 pg/ml (0-20)
[2021-10-23 08:26] LABS: BUN Creatinine Ratio 26.4 (10-20); Calcium 8.5 mg/dl (8.5-10.1); Creatinine Clr Calc Pharmacy 89.5 ml/min; Est GFR (African American) 103.5 ml/min; Est GFR (Non-African American) 89.3 ml/min; Magnesium 1.8 mg/dl (1.7-2.4); Potassium 3.6 mmol/L (3.5-5.1)
[2021-10-23] MEDS ORDERED: UMECLIDINIUM/VILANTEROL 62.5/25MCG 7 PUFFS/INHALER INH SCH (09:00)
[2021-10-23] MEDS: methylPREDNISolone 40 MG in SYRINGE 0 ML IV SCH ×3 (09:29→23:44)
[2021-10-23] MEDS: PANTOprazole 40 MG TAB PO SCH ×2 (09:29→23:14)
[2021-10-23] MEDS: PREGABALIN 100 MG CAP PO SCH ×2 (09:29→23:15)
--- NOTE | 2021-10-23 15:21 | Communication Note ---
Date of Service: October 23, 2021 Patient seen and examined in the emergency department. He was lying on the bed in mild respiratory distress. He was in room air. He feels that his breathing is much better compared to the presentation. Lung examination reveals bilateral scattered wheezes. Plan is to continue duo nebs every 6 hours, doxycycline twice daily and continue on IV steroids. Continue to monitor respiratory status; try titrate oxygen saturation to 88 to 92%.
--- NOTE | 2021-10-23 15:47 | Electrocardiogram Report ---
Test Reason : Blood Pressure : / mmHG Vent. Rate : 082 BPM Atrial Rate : 082 BPM P-R Int : 174 ms QRS Dur : 088 ms QT Int : 392 ms P-R-T Axes : 070 026 024 degrees QTc Int : 457 ms Poor data quality, interpretation may be adversely affected Normal sinus rhythm Normal ECG When compared with ECG of 30-JUN-2021 06:13, No significant change was found Confirmed by José Luis Rios ([id number]) on 10/23/2021 3:46:51 PM Referred By: REFERRED SELF Confirmed By:José Luis Rios
[2021-10-23] MEDS: LIDOCAINE 5% 1 PATCH TD SCH (16:45)
[2021-10-23] MEDS ORDERED: SODIUM CHLORIDE 0.9% 500 ML IV SCH (21:00)
[2021-10-23] MEDS: DOXYCYCLINE HYCLATE 100 MG CAP PO SCH (23:14)
[2021-10-23] MEDS: ATORVASTATIN 10 MG TAB PO SCH (23:14)
[2021-10-24] MEDS: LEVALBUTEROL 1.25MG/0.5ML NEB INH SCH ×4 (00:06→19:20)
[2021-10-24] MEDS: IPRATROPIUM BROMIDE NEB SOLN 0.02% 2.5 ML VIAL INH SCH ×4 (00:07→19:20)
[2021-10-24] MEDS ORDERED: ZOLPIDEM TARTRATE 5 MG TAB PO STA (02:46)
[2021-10-24] MEDS ORDERED: SODIUM CHLORIDE 0.9% 500 ML IV SCH (04:15)
[2021-10-24] MEDS: PREGABALIN 100 MG CAP PO SCH ×2 (09:03→21:48)
[2021-10-24] MEDS: DOXYCYCLINE HYCLATE 100 MG CAP PO SCH ×2 (09:03→21:48)
[2021-10-24] MEDS: ENOXAPARIN INJ 40 MG/0.4 ML SYR SQ SCH (09:04)
[2021-10-24] MEDS: PANTOprazole 40 MG TAB PO SCH ×2 (09:04→21:48)
[2021-10-24] MEDS: methylPREDNISolone 40 MG in SYRINGE 0 ML IV SCH ×3 (09:04→21:48)
[2021-10-24] MEDS: LIDOCAINE 5% 1 PATCH TD SCH (09:04)
[2021-10-24] MEDS: LEVALBUTEROL HCL 1.25 MG/3 ML NEB NEB PRN (15:03)
--- NOTE | 2021-10-24 16:05 | Hospitalist Progress Note ---
Date of Service October 24, 2021 Assessment & Plan (1) COPD exacerbation: (2) Chest pain: (3) HLD (hyperlipidemia): Plan Patient is a 65-year-old male with past medical history of COPD, hyperlipidemia presented to the ED with increased shortness of breath. Patient is admitted to telemetry floor for COPD exacerbation. 1. COPD exacerbation-continue on duo nebs, steroids, p.o. doxycycline and monitor respiratory status. No evidence of pneumonia on CT chest 2. Chest pain, ruled out ACS-EKG shows normal sinus rhythm; echo with no wall motion abnormalities. CT angio done to rule out PE 3. Hyperlipidemia: On statin. 4. Gastroesophageal reflux disease: On Protonix. 5. Tobacco abuse: Needs counseling. 6. Deep venous thrombosis prophylaxis: Lovenox. DispoHome after resolution of medical issues. Admission and Anticipated Discharge Date Admission Date: October 23, 2021 Subjective Patient seen and examined at bedside. He feels that his breathing is better compared to presentation but he still not quite back to baseline. Review of Systems Review of Systems: All systems reviewed & are unremarkable except as noted in Subjective Physical Exam Physical Exam: GENERAL: The patient is of moderate build, not in acute distress. HEENT: Pupils equal, round and reactive to light. Oral mucosa moist. NECK: No JVD, no neck masses. CARDIOVASCULAR: S1 and S2 heard, regular rate and rhythm. No murmur, no gallop. RESPIRATORY SYSTEM: Normal AP diameter. No accessory muscle use. Bilateral wheezing and rhonchi heard. ABDOMEN: Soft, bowel sounds present, nontender, no distention. CENTRAL NERVOUS SYSTEM: Cranial nerves II-XII grossly intact, nonfocal. EXTREMITIES: No edema, no erythema. Results & Data Results & Data ([facility]) Vital Signs (Past 12 Hours) Vital Signs Temp Pulse Pulse Resp BP BP Pulse Ox 10/24/21 15:55 36.5 C 78 18 124/65 91 10/24/21 15:53 10/24/21 15:10 75 10/24/21 15:05 74 18 93 10/24/21 13:42 69 18 94 10/24/21 12:05 36.5 C 69 20 96/56 L 93 10/24/21 07:53 68 10/24/21 07:50 36.5 C 78 20 109/86 99 10/24/21 07:20 74 18 94 10/24/21 04:06 92/46 L 10/24/21 04:00 36.9 C 79 18 77/44 L 92 O2 Del Method 10/24/21 15:55 Room Air 10/24/21 15:53 Room Air 10/24/21 15:10 10/24/21 15:05 Room Air 10/24/21 13:42 Room Air 10/24/21 12:05 Room Air 10/24/21 07:53 10/24/21 07:50 Nebulizer 10/24/21 07:20 Room Air 10/24/21 04:06 10/24/21 04:00 Room Air Laboratory Results Laboratory Results WBC 10.61 K/ul (4.8-10.8) 10/23/21 07:42 RBC 4.45 M/uL (4.63-6.08) L 10/23/21 07:42 Hgb 13.9 g/dl (14.0-18.0) L 10/23/21 07:42 Hct 41.5 % (40.1-51.0) 10/23/21 07:42 MCV 93.3 fL (80.0-100.0) 10/23/21 07:42 MCH 31.2 pg (25.0-34.0) 10/23/21 07:42 MCHC 33.5 g/dL (32.0-36.0) 10/23/21 07:42 RDW Std Deviation 52.6 fL (36.4-46.3) H 10/23/21 07:42 RDW Coeff of Jaz 15.4 % (11.5-14.5) H 10/23/21 07:42 Plt Count 258 K/uL (130-400) 10/23/21 07:42 MPV 10.5 fL (9.4-12.4) 10/23/21 07:42 Immature Gran % (Auto) 0.3 % 10/23/21 07:42 Neut % (Auto) 90.9 % 10/23/21 07:42 Lymph % (Auto) 7.2 % 10/23/21 07:42 [place] % (Auto) 1.5 % 10/23/21 07:42 Eos % (Auto) 0.0 % 10/23/21 07:42 Baso % (Auto) 0.1 % 10/23/21 07:42 Neut # (Auto) 9.65 K/uL (1.4-6.5) H 10/23/21 07:42 Lymph # (Auto) 0.76 K/uL (1.2-3.4) L 10/23/21 07:42 [place] # (Auto) 0.16 K/uL (0.24-0.82) L 10/23/21 07:42 Eos # (Auto) 0.00 K/uL (0-0.50) 10/23/21 07:42 Baso # (Auto) 0.01 K/uL (0-0.2) 10/23/21 07:42 Immature Gran # (Auto) 0.03 K/uL (0.00-0.02) H 10/23/21 07:42 PT 10.3 Seconds (9.0-12.0) 10/23/21 00:16 INR 1.0 (0.9-1.1) 10/23/21 00:16 APTT 24.1 Seconds (21.0-31.0) 10/23/21 00:16 PTT Ratio 0.9 10/23/21 00:16 Sodium 139 mmol/L (136-145) 10/23/21 07:42 Potassium 3.6 mmol/L (3.5-5.1) 10/23/21 07:42 Chloride 110 mmol/L (98-107) H 10/23/21 07:42 Carbon Dioxide 22 mmol/L (21-32) 10/23/21 07:42 Anion Gap 7 (3-11) 10/23/21 07:42 BUN 23 mg/dl (6-23) 10/23/21 07:42 Creatinine 0.87 mg/dl (0.6-1.4) 10/23/21 07:42 Est Cr Clr Drug Dosing 89.5 ml/min 10/23/21 07:42 Est GFR ( Amer) 103.5 ml/min 10/23/21 07:42 Est GFR (Non-Af Amer) 89.3 ml/min 10/23/21 07:42 BUN/Creatinine Ratio 26.4 (10-20) H 10/23/21 07:42 Glucose 151 mg/dl (70-99(Fasting)) H 10/23/21 07:42 Lactate 1.9 mmol/L (0.4-2.0) 10/24/21 07:52 Calcium 8.5 mg/dl (8.5-10.1) 10/23/21 07:42 Magnesium 1.8 mg/dl (1.7-2.4) 10/23/21 07:42 Total Bilirubin 0.3 mg/dl (0.2-1.0) 10/23/21 00:16 AST 30 U/L (13-39) 10/23/21 00:16 ALT 50 U/L (7-52) 10/23/21 00:16 Alkaline Phosphatase 69 U/L (34-104) 10/23/21 00:16 Troponin I High Sens 7.3 pg/ml (0-20) 10/23/21 13:03 Total Protein 6.6 gm/dl (6.0-8.3) 10/23/21 00:16 Albumin 4.0 gm/dl (3.4-5.0) 10/23/21 00:16 Globulin 2.6 gm/dl (2.5-4.0) 10/23/21 00:16 Albumin/Globulin Ratio 1.5 (0.9-2) 10/23/21 00:16 SARS-CoV-2, RNA, NAAT NEGATIVE (NEGATIVE) 10/23/21 00:16 Impressions Chest X-Ray 10/22/21 23:57 XR chest 1V portable CLINICAL HISTORY: SOB TECHNIQUE: Single frontal radiograph of the chest was obtained. Comparison: Comparison is made to chest radiograph 06/29/2021 and low-dose CT chest 01/07/2021 FINDINGS: Plate and screw fixation hardware is in the right humerus, stable left total reverse arthroplasty. Calcified aortic knob is seen. Reticular interstitial opacities are seen. No evidence of pleural effusion or pneumothorax. IMPRESSION: No acute chest disease. Stable interstitial thickening. ACT 112: Negative or not required by law. Electronically signed by: Florin Soto M.D. 10/23/2021 8:13 AM Chest CTA 10/23/21 05:14 CT ANGIOGRAPHY OF THE CHEST, PULMONARY EMBOLUS PROTOCOL CLINICAL HISTORY: Difficulty breathing. COMPARISON STUDY: Chest radiograph October 23, 2021. Chest CT January 07, 2021. TECHNIQUE: Following IV administration of 125 mL of Optiray, helical axial images of the chest were obtained utilizing the pulmonary embolus protocol. Maximal intensity projections and sagittal and coronal reformats were viewed on an independent 3D workstation. IV contrast was administered without complication. Automated exposure control was utilized for the study. A dose lowering technique was utilized adhering to the principles of ALARA. CT DOSE: 599.90 mGy.cm FINDINGS: No pulmonary emboli are identified although the segmental and subsegmental pulmonary arteries are suboptimally assessed due to respiratory motion. There is no pericardial effusion. Extensive coronary artery calcification is present. Cardiac size is at the upper limits of normal. No thoracic lymphadenopathy is present. There is no pneumothorax or pleural effu roro. Emphysema is noted. There are postoperative findings within the left upper lobe. Lungs are suboptimally assessed due to respiratory motion. No consolidation is identified. Subpleural opacities favor atelectasis. No acute fracture within the visualized bony thorax. There are old left-sided rib fractures. Calcifications within the pancreas are incidentally noted. IMPRESSION: 1. No pulmonary emboli identified although segmental and subsegmental pulmonary arteries suboptimally assessed due to respiratory motion. 2. Emphysema. 3. No consolidation to suggest pneumonia. Subpleural opacities which favor atelectasis. ACT 112: Negative or not required by law. Electronically signed by: Jose A Hernandez M.D. 10/23/2021 6:57 AM (1) Chest pain Chest pain type: unspecified Qualified Code(s): R07.9 - Chest pain, unspecified
[2021-10-24] MEDS: ATORVASTATIN 10 MG TAB PO SCH (21:49)
[2021-10-25] MEDS: IPRATROPIUM BROMIDE NEB SOLN 0.02% 2.5 ML VIAL INH SCH ×3 (00:40→12:12)
[2021-10-25] MEDS: LEVALBUTEROL 1.25MG/0.5ML NEB INH SCH ×3 (00:40→12:12)
[2021-10-25 06:54] LABS: Basophils # (auto) 0.02 K/uL (0-0.2); Basophils % (auto) 0.1 %; Hemoglobin 13.9 g/dl (14.0-18.0); Immature Granulocytes % (auto) 0.7 %; Lymphocytes # (auto) 1.13 K/uL (1.2-3.4); Lymphocytes % (auto) 8.4 %; Mean Corpuscular Hemoglobin 31.3 pg (25.0-34.0); Mean Corpuscular Hgb Conc 34.8 g/dL (32.0-36.0); Mean Corpuscular Volume 90.1 fL (80.0-100.0); Mean Platelet Volume 10.7 fL (9.4-12.4); Monocytes # (auto) 0.61 K/uL (0.24-0.82); Monocytes % (auto) 4.5 %; Neutrophils # (auto) 11.58 K/uL (1.4-6.5); Neutrophils % (auto) 86.3 %; Platelet Count 234 K/uL (130-400); RDW Coefficient of Variation 15.5 % (11.5-14.5); RDW Standard Deviation 51.3 fL (36.4-46.3); Red Blood Count 4.44 M/uL (4.63-6.08); White Blood Count 13.44 K/ul (4.8-10.8)
[2021-10-25 07:15] LABS: Albumin Globulin Ratio 1.6 (0.9-2); Albumin Level 3.5 gm/dl (3.4-5.0); BUN Creatinine Ratio 25.6 (10-20); Bilirubin,Total 0.4 mg/dl (0.2-1.0); Calcium 8.7 mg/dl (8.5-10.1); Creatinine Clr Calc Pharmacy 88.5 ml/min; Est GFR (Non-African American) 89.7 ml/min; Globulin 2.2 gm/dl (2.5-4.0); Potassium 4.3 mmol/L (3.5-5.1); Total Protein 5.7 gm/dl (6.0-8.3)
[2021-10-25] MEDS: LEVALBUTEROL HCL 1.25 MG/3 ML NEB NEB PRN (07:18)
[2021-10-25] MEDS: DOXYCYCLINE HYCLATE 100 MG CAP PO SCH (08:17)
[2021-10-25] MEDS: ENOXAPARIN INJ 40 MG/0.4 ML SYR SQ SCH (08:17)
[2021-10-25] MEDS: PANTOprazole 40 MG TAB PO SCH (08:23)
[2021-10-25] MEDS: LIDOCAINE 5% 1 PATCH TD SCH (08:23)
[2021-10-25] MEDS: methylPREDNISolone 40 MG in SYRINGE 0 ML IV SCH (08:23)
[2021-10-25] MEDS: PREGABALIN 100 MG CAP PO SCH (08:25)
--- NOTE | 2021-10-25 16:15 | Discharge Summary ---
Date of Service October 25, 2021 Admission HPI Per Admitting Provider This is a 65-year-old male with past medical history significant for COPD, mild sleep apnea, GERD, hiatal hernia, senile osteoporosis, chronic pain syndrome, obesity, tobacco abuse disorder. Smokes half pack a day, comes in with shortness of breath. The patient says since last Tuesday he is getting short of breath, bringing whitish yellow phlegm. Denies any fever. Has some chest pain in the middle of the chest, stabbing kind of pain, 4/10 in severity, no radiation, constant pain. No nausea. Has headaches, no blurred visions, no earache. Has some runny nose, some sore throat. Appetite is okay. Has abd ominal pain from his hernia. Normal bowel and bladder movements. No swelling in the legs. Admission Exam Per Admitting Provider GENERAL: The patient is of moderate build, not in acute distress. VITAL SIGNS: Temperature 36, pulse 72, respiratory rate 22, blood pressure 99/51, oxygen 96 % on room air. HEENT: Pupils equal, round and reactive to light. Oral mucosa moist. NECK: No JVD, no neck masses. CARDIOVASCULAR: S1 and S2 heard, regular rate and rhythm. No murmur, no gallop. RESPIRATORY SYSTEM: Normal AP diameter. No accessory muscle use. Bilateral wheezing and rhonchi heard. ABDOMEN: Soft, bowel sounds present, nontender, no distention. CENTRAL NERVOUS SYSTEM: Cranial nerves II-XII grossly intact, nonfocal. EXTREMITIES: No edema, no erythema Principal Diagnosis COPD exacerbation Discharge Exam GENERAL: The patient is of moderate build, not in acute distress. HEENT: Pupils equal, round and reactive to light. Oral mucosa moist. NECK: No JVD, no neck masses. CARDIOVASCULAR: S1 and S2 heard, regular rate and rhythm. No murmur, no gallop. RESPIRATORY SYSTEM: Normal AP diameter. No accessory muscle use. Bilateral wheezing and rhonchi heard. ABDOMEN: Soft, bowel sounds present, nontender, no distention. CENTRAL NERVOUS SYSTEM: Cranial nerves II-XII grossly intact, nonfocal. EXTREMITIES: No edema, no erythema. Discharge Data Allergies Allergy/AdvReac Type Severity Reaction Status Date / Time fluticasone furoate Allergy Intermediate lightheadedness Verified 06/28/21 13:59 [From Trelezoe Ellipta] and nausea umeclidinium Allergy Intermediate lightheadedness Verified 06/28/21 13:59 [From Trelegy Ellipta] and nausea vilanterol Allergy Intermediate lightheadedness Verified 06/28/21 13:59 [From Trelegy Ellipta] and nausea Consultations 10/23/21 04:11 ED Decision to Admit Stat Ordered Studies 10/23/21 05:14 CT angio chest PE protocol Stat Hospital Course (1) COPD exacerbation: (2) Chest pain: (3) HLD (hyperlipidemia): Plan Patient is a 65-year-old male with past medical history of COPD, hyperlipidemia presented to the ED with increased shortness of breath. Patient is admitted to telemetry floor for COPD exacerbation. CT chest angio was done; no evidence of PE or pneumonia was seen. Patient was started on duo nebs, steroid and p.o. doxycycline. EKG was done which showed normal sinus rhythm with no ST or T wave changes. Transthoracic echo showed ejection fraction of 60 to 65% with grade 1 diastolic dysfunction. Patient was weaned off to room air on the day of the discharge. He was discharged on 3-day course of prednisone, doxycycline for 2 days and was instructed to follow-up with his primary care doctor. Vitamin B12 1000mcg was started as patient's serum vitamin B-12 was on lower side on normal. Total Time Total Time Spent Total Time Spent (In Minutes): 35 Total Time Includes: Examination of the Patient, Discharge Planning, Medication Reconciliation, Communication With Other Providers and Other Discharge Plan Discharge Items Patient Disposition: Home - Self-Care Reason For Visit: SOB Discharge Diagnosis: COPD exacerbation Activity: Resume your previous activity Non-emergency contact: Primary Care Provider Call non-emergency contact if: you have any medication questions Follow-up/Referrals: Marie Weaver DO [Primary Care Provider] - Diet: Regular Addtl Attending Provider Instructions: You are admitted to the hospital with COPD exacerbation. Please take the following medication as prescribed: 1) Take doxycycline 100 mg twice daily for 2 days 2) Take prednisone 20 mg, 2 tablets once daily for next 3 days. You were also started on vitamin B12 tablets. Take 1 tablet every day. Follow-up with her primary care doctor in 1 week. Stand-Alone Forms: [employer], Smoking Cessation Medications and DC Order Prescriptions: New doxycycline hyclate 100 mg Capsule 100 mg PO BID 3 Days Qty: 6 0RF prednisone 20 mg tablet 40 mg PO DAILY Qty: 6 0RF cyanocobalamin (vitamin B-12) 1,000 mcg capsule 1,000 mcg PO DAILY Qty: 30 0RF Continued Anoro Ellipta 62.5-25 mcg/actuation blister with device 1 inh inhalation DAILY levalbuterol HCl 1.25 mg/3 mL solution for nebulization 1.25 mg INHALATION QID PRN (Reason: Shortness Of Breath Or Wheezing) Qty: 90 1RF atorvastatin [Lipitor] 10 mg Tablet 10 mg PO QPM pregabalin [Lyrica] 100 mg Capsule 100 mg PO BID pantoprazole [Protonix] 40 mg tablet,delayed release (DR/EC) 40 mg PO BID 30 Days Qty: 60 2RF furosemide 20 mg tablet 20 mg PO Q24H Rx Instructions: TAKE ONE TABLET BY MOUTH EVERY OTHER DAY meclizine 12.5 mg tablet 12.5 mg PO TID PRN (Reason: Dizziness) Discontinued doxycycline hyclate 100 mg Capsule 100 mg PO BID Qty: 6 0RF prednisone 10 mg tablet 10 mg PO UD Qty: 6 0RF Rx Instructions: Start taking prednisone 20 mg daily for 2 days, then take 10 mg daily for 2 days and stop. Discharge Orders: Discharge Order (Routine); Ordered 10/25/21 Ordered By: Enoz Smith Admission Data Admit Date/Time: 10/23/21 05:14 Attending Provider: Enzo Smith Admit Provider: Mannie Calderon Primary Care Provider: Marie Weaver Other Providers: Mannie Calderon Other Interventions: Discharge Summary Assessment (RN) Last Done: 10/25/21 13:32
== END 2021-10-25 14:00 | disposition home or self-care (01) | DRG 192 ==
LOC: ED 23:35 → EDINP 10-23 05:14 → 2W 10-23 21:05

== ENCOUNTER 2023-03-08 19:56 | Inpatient (IN) ==
[2023-03-08 20:30] LABS: Basophils # (auto) 0.03 K/uL (0.00-0.20); Basophils % (auto) 0.2 %; Eosinophils # (auto) 0.18 K/uL (0.00-0.50); Eosinophils % (auto) 1.2 %; Hemoglobin 15.8 g/dl (14.0-18.0); Immature Granulocytes # (auto) 0.09 K/uL (0.01-0.20); Immature Granulocytes % (auto) 0.6 %; Lymphocytes # (auto) 2.28 K/uL (1.20-3.40); Mean Corpuscular Hemoglobin 31.8 pg (25.0-34.0); Mean Corpuscular Hgb Conc 35.9 g/dL (32.0-36.0); Mean Corpuscular Volume 88.5 fL (80.0-100.0); Mean Platelet Volume 11.4 fL (9.4-12.4); Monocytes # (auto) 1.54 K/uL (0.11-0.59); Monocytes % (auto) 10.1 %; Neutrophils # (auto) 11.13 K/uL (1.40-6.50); Neutrophils % (auto) 72.9 %; Platelet Count 234 K/uL (130-400); RDW Coefficient of Variation 15.7 % (11.5-14.5); RDW Standard Deviation 50.7 fL (36.4-46.3); Red Blood Count 4.97 M/uL (4.70-6.10); White Blood Count 15.25 K/ul (4.8-10.8)
[2023-03-08] MEDS ORDERED: fentaNYL citrate PF 100 MCG/2 ML VIAL IV PRN (20:39)
[2023-03-08] MEDS ORDERED: PANTOprazole 40 MG in SYRINGE 0 ML IV ONE (20:39)
[2023-03-08] MEDS ORDERED: SODIUM CHLORIDE 0.9% 500 ML IV ONE (20:39)
[2023-03-08 20:44] LABS: Albumin Globulin Ratio 1.4 (0.9-2); Albumin Level 3.9 gm/dl (3.4-5.0); BUN Creatinine Ratio 26.1 (10-20); Bilirubin,Total 0.5 mg/dl (0.2-1.0); Creatinine Clr Calc Pharmacy 67.3 ml/min; Est GFR (African American) 74.8 ml/min; Est GFR (Non-African American) 64.6 ml/min; Globulin 2.8 gm/dl (2.5-4.0); Potassium 4.1 mmol/L (3.5-5.1); Total Protein 6.7 gm/dl (6.0-8.3)
[2023-03-08 20:51] LABS: INR 0.9 (0.9-1.1); Partial Thromboplastin Ratio 0.9; Partial Thromboplastin Time 24 Seconds (21-31); Prothrombin Time 10.3 Seconds (9.0-12.0)
[2023-03-08 20:53] LABS: Troponin I High Sensitivity 5.8 pg/ml (0-20)
--- NOTE | 2023-03-08 20:53 | Emergency Department Note ---
Impression & Plan Chest pain, Acute hypotension, Thrombus of aorta ED Provider Note ED Provider Note NAME: ANGELES BURLESON AGE:67 SEX: Male : 1955 ARRIVES VIA: EMS INFORMANT: Patient ED PROVIDER(s): Francy Rushing DO CHIEF COMPLAINT: Chest pain HPI: This is a 67-year-old male presents emerged department due to concern for chest pain. Patient states pain began last night while he was seated watching TV. No prior similar episodes. He states pain has been constant throughout the day today additionally and worsened this evening. He states pain radiates into the left shoulder, and left back. He did feel slightly short of breath but has COPD at baseline and wears 2 L of oxygen at night. Patient also admits to recent RSV infection additionally. He states no recent change in his cough or sputum production, no fevers or chills. He states pain feels better sitting up instead of lying down. also notes that he had recent increased lower extremity edema and so she did give him a dose of leftover torsemide they had at home from when he used to take that. She states he has not taken that in quite some time. Patient was given 3 nitro by EMS and patient reports this did improve his pain. PAST MEDICAL HISTORY:See Below PAST SURGICAL HISTORY:See Below FAMILY HISTORY:See Below SOCIAL HISTORY:See Below HOME MEDICATIONS:See Below ALLERGIES:See Below VITALS:See Below PHYSICAL EXAMINATION: GENERAL: alert, unwell appearing, well nourished, mild distress, non-toxic EYE EXAM: normal conjunctiva, PERRL and EOM's grossly intact OROPHARYNX: no exudate, no erythema, lips, buccal mucosa, and tongue normal and mucous membranes are moist NECK: supple, no nuchal rigidity, no adenopathy, non-tender LUNGS: Clear to auscultation. Normal chest wall mechanics, no w/r/r HEART: no murmurs, S1 normal and S2 normal, no reproducible pain with palpation ABDOMEN: abdomen soft, non-tender, normo-active bowel sounds, no masses, no rebound or guarding. BACK: Back is symmetrical on inspection and there is no deformity, no midline tenderness, no CVA tenderness. SKIN: no rashes, petechiae, orbruising UPPER EXTREMITIES: upper extremities are grossly normal. FROM, nml pulses b/l. LOWER EXTREMITIES: 2+ b/l pitting edema. FROM, nml pulses b/l. No calf tenderness bilaterally. NEURO EXAM: Normal sensorium, cranial nerves II-XII grossly intact, normal speech, no facial droop,nogross weakness of arms, no gross weakness of legs. Gross sensation intact. No ataxia. Vital Signs: reviewed and remarkable Differential Diagnosis: acute coronary syndrome, pericarditis, pulmonary embolus, aortic dissection, pneumonia, pneumothorax, musculoskeletal pain, shingles, GERD, GI bleed, as well as others were considered MEDICAL DECISION MAKING: This is a 67-year male presents emergency room due to concern for chest pain. Patient noted to be hypotensive on arrival however the other vital signs stable and patient afebrile. He had been given aspirin and nitro by EMS prehospital with some improvement although not resolution of his symptoms. Labs drawn and sent, IV established, EKG and chest ray performed bedside interpreted by me and patient monitored on telemetry. He did respond to IV fluids and blood pressure improved. He was then given fentanyl and IV Protonix for pain. Due to concern for other pathology he was sent for CT/CTA additionally. CT of the chest read by outside radiology as a thrombus of the proximal descending thoracic aorta without evidence of dissection or aneurysm. I did contact the overnight outside reading radiologist to discuss this. Due to unclear etiology of this finding, case discussed with on-call vascular surgery at [facility]. He stated patient did not need urgent transfer or urgent intervention but could be started on heparin drip with additional evaluation here and treatment of the hypotension. Case discussed with the hospitalist team for additional evaluation and management. Consultation(s): 2229: Discussed with Dr. Alba, vascular surgery at [facility]. He recommends medical admission, states patient does not need emergent intervention or surgery. He recommends initiating heparin drip with likely eventual transition to oral anticoagulation. He states he will try to review the CAT scan images and they will call back in the morning with additional recommendations. He also requested we contact Dr. Padilla, local vascular surgeon. 2241: Discussed with Dr. Brar, [facility] hospitalist for additional evaluation and mgmt. ER Treatment Provided: See below 0100: Several attempts were made to contact Dr. Padilla, no return call was received. Diagnostics Interpreted By Me: -ECG: Sinus tachycardia 113, normal axis, normal intervals, nonspecific ST/T wave changes, significant baseline artifact noted -Cardiac Monitoring: An order was placed for continuous cardiac monitoring. The monitor shows a rate of 98 with normal sinus rhythm. -Laboratory studies: As stated above and show below. -Imaging studies: X-ray Chest: A single view study of the chest was reviewed and was negative for cardiomegaly, focal infiltrate, effusion, pulmonary edema, or wide mediastinum. Triage Nursing Note Reviewed Prior/Outside Records Reviewed -prior echo reviewed Critical Care: Critical care of 48 min performed to assess and manage high likelihood of life- threatening chest pain and hypotension, involving labs and imaging performed with assessment to evaluate aortic thrombus diagnosis with frequent reassessment. This time includes bedside time, treatment discussions with patient/family/consultants, documentation time and excludes procedure time. Past Med/Surg History Medical History Chronic respiratory failure On oxygen at night in the past - but no longer needs per patient Hx of migraines Sleep apnea No device History of COVID-19 2019, moderate symptoms > resolved 2020, mild symptoms > resolved Post-nasal drip Chronic - stable HLD (hyperlipidemia) TAYLOR (obstructive sleep apnea) Cannot tolerate device Anxiety Pneumothorax Hx- complication from pain injection- resolved COPD, moderate Breathing stable Neuropathy GERD (gastroesophageal reflux disease) Well controlled and stable Histoplasmosis 2002- treated Diaphragmatic hernia Thoracic spinal stenosis Surgical History History of esophagogastroduodenoscopy (EGD) Hx of colonoscopy History of open reduction and internal fixation (ORIF) procedure right shoulder History of total replacement of left shoulder joint History of sinus surgery History of placement of chest tube History of hand surgery Left femoral shaft fracture Dutch placed H/O total hip arthroplasty left side H/O elbow surgery H/O exploratory thoracotomy "Left thoracotomy wedge biopsy of left upper lobe with excision of lesion or nodule & frozen section 2002" H/O hernia repair "[facility] incarcerated supraumbilical hernia repair open no mesh 02/17/01" Family History Father Heart disease Hypertension Brother Cancer Hypertension Stroke Heart disease Mother Cancer Other Leukemia No family history of bleeding disorder Non-Hodgkin lymphoma Denies family history of Hearing loss Asthma Social History Smoking Status: Current every day smoker Tobacco Type: Cigarettes and Cigars Age Started Using Tobacco: 11; packs per day: 1; Cigarettes Per Day: 10 cigs /day; Second Hand Exposure: No; Do You Dip or Chew Tobacco: No; Hx Alcohol Use: Yes Alcohol type: hard liquor Hx Substance Use: No Preferred Language: Icelandic Communication Ability: Effective 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 Beliefs That Will Affect Care: None marital status: Current Living Situation: Spouse and Family current occupational status: unemployed Feels Safe at Home: Yes Assistive Devices: Denture - Upper, Denture - Lower, Glasses and Nebulizer Allergies Allergies Allergy/AdvReac Type Severity Reaction Status Date / Time fluticasone furoate Allergy Intermediate lightheadedness Verified 03/08/23 21:30 [From Trelegy Ellipta] and nausea umeclidinium Allergy Intermediate lightheadedness Verified 03/08/23 21:30 [From Trelegy Ellipta] and nausea vilanterol Allergy Intermediate lightheadedness Verified 03/08/23 21:30 [From Trelegy Ellipta] and nausea Home Meds Home Medications Medication Instructions Recorded Confirmed atorvastatin 10 mg tablet (Lipitor) 10 mg PO HS 10/16/17 03/08/23 pregabalin 100 mg capsule (Lyrica) 100 mg PO BID 10/16/17 03/08/23 meclizine 12.5 mg tablet 12.5 mg PO TID PRN Dizziness 06/28/21 03/08/23 prednisone 20 mg tablet 40 mg PO QAM PRN RESCUE KIT 04/05/22 03/08/23 bupropion HCl 150 mg tablet,12 hr 150 mg PO BID 04/07/22 03/08/23 sustained-release (Wellbutrin SR) ondansetron 8 mg disintegrating 8 mg PO Q8H PRN Nausea 04/07/22 03/08/23 tablet albuterol sulfate 90 mcg/actuation 2 puff inhalation Q4H PRN 12/29/22 03/08/23 aerosol inhaler Shortness Of Breath Or Wheezing clobetasol 0.05 % topical cream 1 applic topical BID PRN Rash 12/29/22 03/08/23 levalbuterol HCl 1.25 mg/3 mL 1.25 mg inhalation Q4H PRN Wheezing 12/29/22 03/08/23 solution for nebulization triamcinolone acetonide 0.1 % 1 applic topical BID PRN Rash 12/29/22 03/08/23 topical cream umeclidinium 62.5 mcg-vilanterol 1 inh inhalation DAILY 12/29/22 03/08/23 25 mcg/actuation powdr for inhalation (Anoro Ellipta) cyanocobalamin (vitamin B-12) 1,000 mcg PO DAILY 03/08/23 03/08/23 1,000 mcg tablet (Vitamin B-12) Previous Rx's Medication Instructions Recorded pantoprazole 40 mg tablet,delayed 40 mg PO BID 30 days #60 tabs 03/02/21 release (Protonix) Results & Data (ED) Vital Signs Vital Signs - 24 hr 03/08/23 19:59 03/08/23 19:59 03/08/23 19:59 Temperature 37.1 C Temperature Source Oral Pulse Rate 113 H Pulse Rate from SpO2 Sensor Respiratory Rate 24 Respiratory Effort / Characteristics Non-Labored Respiratory Depth Normal Normal Blood Pressure 96/57 L Blood Pressure Mean 70 Pulse Oximetry 94 Oxygen Delivery Method Nasal Cannula Nasal Cannula Oxygen Flow Rate 1 Sepsis Recent Fever Within 48 Hours No Sepsis New/Unexplained Change in Mental Status No Sepsis Action Taken by Nursing No Action Required 03/08/23 20:04 03/08/23 20:05 03/08/23 20:05 Temperature Temperature Source Pulse Rate 108 H 112 H Pulse Rate from SpO2 Sensor 117 H 111 H Respiratory Rate 19 23 Respiratory Effort / Characteristics Respiratory Depth Blood Pressure 96/57 L Blood Pressure Mean 69 Pulse Oximetry 92 94 Oxygen Delivery Method Oxygen Flow Rate Sepsis Recent Fever Within 48 Hours Sepsis New/Unexplained Change in Mental Status Sepsis Action Taken by Nursing 03/08/23 20:07 03/08/23 20:07 03/08/23 20:10 Temperature Temperature Source Pulse Rate 108 H 103 H Pulse Rate from SpO2 Sensor 105 H Respiratory Rate 21 Respiratory Effort / Characteristics Respiratory Depth Blood Pressure Blood Pressure Mean Pulse Oximetry 94 Oxygen Delivery Method Nasal Cannula Oxygen Flow Rate 1 Sepsis Recent Fever Within 48 Hours Sepsis New/Unexplained Change in Mental Status Sepsis Action Taken by Nursing 03/08/23 20:20 03/08/23 20:30 03/08/23 20:40 Temperature Temperature Source Pulse Rate 102 H 98 H 96 H Pulse Rate from SpO2 Sensor 102 H 98 H 95 H Respiratory Rate 15 14 19 Respiratory Effort / Characteristics Respiratory Depth Blood Pressure Blood Pressure Mean Pulse Oximetry 94 93 95 Oxygen Delivery Method Oxygen Flow Rate Sepsis Recent Fever Within 48 Hours Sepsis New/Unexplained Change in Mental Status Sepsis Action Taken by Nursing 03/08/23 20:43 03/08/23 20:44 03/08/23 20:44 Temperature Temperature Source Pulse Rate 100 H 96 H 96 H Pulse Rate from SpO2 Sensor 98 H 97 H Respiratory Rate 17 19 19 Respiratory Effort / Characteristics Respiratory Depth Blood Pressure 102/56 L Blood Pressure Mean 68 Pulse Oximetry 93 94 94 Oxygen Delivery Method Oxygen Flow Rate Sepsis Recent Fever Within 48 Hours Sepsis New/Unexplained Change in Mental Status Sepsis Action Taken by Nursing 03/08/23 20:50 03/08/23 21:23 03/08/23 21:25 Temperature Temperature Source Pulse Rate 89 92 H 87 Pulse Rate from SpO2 Sensor 89 87 Respiratory Rate 18 22 23 Respiratory Effort / Characteristics Respiratory Depth Blood Pressure Blood Pressure Mean Pulse Oximetry 94 96 Oxygen Delivery Method Oxygen Flow Rate Sepsis Recent Fever Within 48 Hours Sepsis New/Unexplained Change in Mental Status Sepsis Action Taken by Nursing 03/08/23 21:25 03/08/23 21:30 03/08/23 21:30 Temperature Temperature Source Pulse Rate 87 84 84 Pulse Rate from SpO2 Sensor 94 H Respiratory Rate 23 18 18 Respiratory Effort / Characteristics Respiratory Depth Blood Pressure 110/54 L 107/55 L Blood Pressure Mean 57 67 Pulse Oximetry 96 95 95 Oxygen Delivery Method Oxygen Flow Rate Sepsis Recent Fever Within 48 Hours Sepsis New/Unexplained Change in Mental Status Sepsis Action Taken by Nursing 03/08/23 21:40 03/08/23 21:41 03/08/23 21:41 Temperature Temperature Source Pulse Rate 84 85 85 Pulse Rate from SpO2 Sensor 82 83 Respiratory Rate 16 13 13 Respiratory Effort / Characteristics Respiratory Depth Blood Pressure 98/56 L Blood Pressure Mean 78 Pulse Oximetry 96 96 96 Oxygen Delivery Method Oxygen Flow Rate Sepsis Recent Fever Within 48 Hours Sepsis New/Unexplained Change in Mental Status Sepsis Action Taken by Nursing 03/08/23 21:44 03/08/23 21:45 03/08/23 21:45 Temperature Temperature Source Pulse Rate 86 86 79 Pulse Rate from SpO2 Sensor 87 80 Respiratory Rate 18 18 16 Respiratory Effort / Characteristics Respiratory Depth Blood Pressure 107/63 Blood Pressure Mean 88 Pulse Oximetry 95 95 96 Oxygen Delivery Method Oxygen Flow Rate Sepsis Recent Fever Within 48 Hours Sepsis New/Unexplained Change in Mental Status Sepsis Action Taken by Nursing 03/08/23 21:50 03/08/23 22:00 03/08/23 22:00 Temperature Temperature Source Pulse Rate 81 85 85 Pulse Rate from SpO2 Sensor 81 84 Respiratory Rate 16 22 22 Respiratory Effort / Characteristics Respiratory Depth Blood Pressure 89/67 L Blood Pressure Mean 73 Pulse Oximetry 96 97 97 Oxygen Delivery Method Oxygen Flow Rate Sepsis Recent Fever Within 48 Hours Sepsis New/Unexplained Change in Mental Status Sepsis Action Taken by Nursing 03/08/23 22:10 03/08/23 22:10 03/08/23 22:15 Temperature Temperature Source Pulse Rate 81 79 Pulse Rate from SpO2 Sensor 78 78 Respiratory Rate 18 19 Respiratory Effort / Characteristics Respiratory Depth Blood Pressure 112/69 Blood Pressure Mean 97 Pulse Oximetry 97 88 L Oxygen Delivery Method Oxygen Flow Rate Sepsis Recent Fever Within 48 Hours Sepsis New/Unexplained Change in Mental Status Sepsis Action Taken by Nursing 03/08/23 22:15 03/08/23 22:20 03/08/23 22:36 Temperature Temperature Source Pulse Rate 75 80 Pulse Rate from SpO2 Sensor 79 Respiratory Rate 25 H 23 Respiratory Effort / Characteristics Respiratory Depth Blood Pressure 104/65 Blood Pressure Mean 76 Pulse Oximetry 96 Oxygen Delivery Method Oxygen Flow Rate Sepsis Recent Fever Within 48 Hours Sepsis New/Unexplained Change in Mental Status Sepsis Action Taken by Nursing 03/08/23 22:40 03/08/23 22:43 03/08/23 22:43 Temperature Temperature Source Pulse Rate 81 81 Pulse Rate from SpO2 Sensor 81 Respiratory Rate 21 20 Respiratory Effort / Characteristics Respiratory Depth Blood Pressure 105/59 L Blood Pressure Mean 65 Pulse Oximetry 95 Oxygen Delivery Method Oxygen Flow Rate Sepsis Recent Fever Within 48 Hours Sepsis New/Unexplained Change in Mental Status Sepsis Action Taken by Nursing 03/08/23 22:45 03/08/23 22:45 03/08/23 22:50 Temperature Temperature Source Pulse Rate 81 82 Pulse Rate from SpO2 Sensor 82 83 Respiratory Rate 26 H 28 H Respiratory Effort / Characteristics Respiratory Depth Blood Pressure 113/64 Blood Pressure Mean 72 Pulse Oximetry 95 95 Oxygen Delivery Method Oxygen Flow Rate Sepsis Recent Fever Within 48 Hours Sepsis New/Unexplained Change in Mental Status Sepsis Action Taken by Nursing 03/08/23 23:00 03/08/23 23:00 03/08/23 23:10 Temperature Temperature Source Pulse Rate 84 84 80 Pulse Rate from SpO2 Sensor 85 80 Respiratory Rate 19 19 18 Respiratory Effort / Characteristics Respiratory Depth Blood Pressure 118/73 Blood Pressure Mean 83 Pulse Oximetry 96 96 95 Oxygen Delivery Method Oxygen Flow Rate Sepsis Recent Fever Within 48 Hours Sepsis New/Unexplained Change in Mental Status Sepsis Action Taken by Nursing 03/08/23 23:15 03/08/23 23:15 03/08/23 23:20 Temperature Temperature Source Pulse Rate 83 80 Pulse Rate from SpO2 Sensor 85 81 Respiratory Rate 18 21 Respiratory Effort / Characteristics Respiratory Depth Blood Pressure 88/49 L Blood Pressure Mean 58 Pulse Oximetry 95 95 Oxygen Delivery Method Oxygen Flow Rate Sepsis Recent Fever Within 48 Hours Sepsis New/Unexplained Change in Mental Status Sepsis Action Taken by Nursing 03/08/23 23:30 03/08/23 23:30 03/08/23 23:40 Temperature Temperature Source Pulse Rate 82 79 Pulse Rate from SpO2 Sensor 80 80 Respiratory Rate 17 19 Respiratory Effort / Characteristics Respiratory Depth Blood Pressure 89/58 L Blood Pressure Mean 73 Pulse Oximetry 95 94 Oxygen Delivery Method Oxygen Flow Rate Sepsis Recent Fever Within 48 Hours Sepsis New/Unexplained Change in Mental Status Sepsis Action Taken by Nursing 03/08/23 23:45 03/08/23 23:45 03/08/23 23:50 Temperature Temperature Source Pulse Rate 78 78 Pulse Rate from SpO2 Sensor 78 79 Respiratory Rate 22 29 H Respiratory Effort / Characteristics Respiratory Depth Blood Pressure 92/62 L Blood Pressure Mean 69 Pulse Oximetry 95 95 Oxygen Delivery Method Oxygen Flow Rate Sepsis Recent Fever Within 48 Hours Sepsis New/Unexplained Change in Mental Status Sepsis Action Taken by Nursing 03/08/23 23:58 Temperature Temperature Source Pulse Rate 77 Pulse Rate from SpO2 Sensor Respiratory Rate Respiratory Effort / Characteristics Respiratory Depth Blood Pressure Blood Pressure Mean Pulse Oximetry Oxygen Delivery Method Oxygen Flow Rate Sepsis Recent Fever Within 48 Hours Sepsis New/Unexplained Change in Mental Status Sepsis Action Taken by Nursing Laboratory Data 03/08/23 18:40 03/08/23 18:40 Lab Results 03/08/23 03/08/23 03/08/23 Range/Units 18:40 20:48 22:36 WBC 15.25 H (4.8-10.8) K/ul RBC 4.97 (4.70-6.10) M/uL Hgb 15.8 (14.0-18.0) g/dl Hct 44.0 (42.0-52.0) % MCV 88.5 (80.0-100.0) fL MCH 31.8 (25.0-34.0) pg MCHC 35.9 (32.0-36.0) g/dL RDW Std Deviation 50.7 H (36.4-46.3) fL RDW Coeff of Jaz 15.7 H (11.5-14.5) % Plt Count 234 (130-400) K/uL MPV 11.4 (9.4-12.4) fL Immature Gran % (Auto) 0.6 % Neut % (Auto) 72.9 % Lymph % (Auto) 15.0 % Charlton % (Auto) 10.1 % Eos % (Auto) 1.2 % Baso % (Auto) 0.2 % Neut # (Auto) 11.13 H (1.40-6.50) K/uL Lymph # (Auto) 2.28 (1.20-3.40) K/uL Charlton # (Auto) 1.54 H (0.11-0.59) K/uL Eos # (Auto) 0.18 (0.00-0.50) K/uL Baso # (Auto) 0.03 (0.00-0.20) K/uL Immature Gran # (Auto) 0.09 (0.01-0.20) K/uL PT 10.3 (9.0-12.0) Seconds INR 0.9 (0.9-1.1) APTT 24 (21-31) Seconds PTT Ratio 0.9 Sodium 136 (136-145) mmol/L Potassium 4.1 (3.5-5.1) mmol/L Chloride 99 (98-107) mmol/L Carbon Dioxide 28 (21-32) mmol/L Anion Gap 9 (3-11) BUN 30 H (6-23) mg/dl Creatinine 1.15 (0.6-1.4) mg/dl Est Cr Clr Drug Dosing 67.3 ml/min Est GFR ( Amer) 74.8 ml/min Est GFR (Non-Af Amer) 64.6 ml/min BUN/Creatinine Ratio 26.1 H (10-20) Glucose 100 H (70-99(Fasting)) mg/dl Lactate (0.4-2.0) mmol/L Calcium 9.0 (8.6-10.3) mg/dl Magnesium 1.6 L (1.7-2.4) mg/dl Total Bilirubin 0.5 (0.2-1.0) mg/dl AST 33 (13-39) U/L ALT 63 H (7-52) U/L Alkaline Phosphatase 86 (34-104) U/L Troponin I High Sens 5.8 (0-20) pg/ml B-Natriuretic Peptide 19 (0-100) pg/ml Total Protein 6.7 (6.0-8.3) gm/dl Albumin 3.9 (3.4-5.0) gm/dl Globulin 2.8 (2.5-4.0) gm/dl Albumin/Globulin Ratio 1.4 (0.9-2) Procalcitonin < 0.05 (0-0.5) ng/ml Adenovirus (PCR) Not Detected (NotDetected) B. pertussis DNA (PCR) Not Detected (NotDetected) B.parapertussis DNA PCR Not Detected (NotDetected) C. pneumoniae DNA (PCR) Not Detected (NotDetected) Coronavirus OC43 (PCR) Not Detected (NotDetected) Coronavirus HKU1 (PCR) Not Detected (NotDetected) Coronavirus 229E (PCR) Not Detected (NotDetected) SARS-CoV-2 (PCR) Not Detected (NotDetected) Coronavirus NL63 (PCR) Not Detected (NotDetected) Human Metapneumovir PCR Not Detected (NotDetected) Influenza Type A (PCR) Not Detected (NotDetected) Influenza Type B (PCR) Not Detected (NotDetected) M. pneumoniae (PCR) Not Detected (NotDetected) Parainfluenza 1 (PCR) Not Detected (NotDetected) Parainfluenza 2 (PCR) Not Detected (NotDetected) Parainfluenza 3 (PCR) Not Detected (NotDetected) Parainfluenza 4 (PCR) Not Detected (NotDetected) RSV (PCR) Not Detected (NotDetected) Entero/Rhino (PCR) Not Detected (NotDetected) 03/08/23 Range/Units 23:50 WBC (4.8-10.8) K/ul RBC (4.70-6.10) M/uL Hgb (14.0-18.0) g/dl Hct (42.0-52.0) % MCV (80.0-100.0) fL MCH (25.0-34.0) pg MCHC (32.0-36.0) g/dL RDW Std Deviation (36.4-46.3) fL RDW Coeff of Jaz (11.5-14.5) % Plt Count (130-400) K/uL MPV (9.4-12.4) fL Immature Gran % (Auto) % Neut % (Auto) % Lymph % (Auto) % Charlton % (Auto) % Eos % (Auto) % Baso % (Auto) % Neut # (Auto) (1.40-6.50) K/uL Lymph # (Auto) (1.20-3.40) K/uL Charlton # (Auto) (0.11-0.59) K/uL Eos # (Auto) (0.00-0.50) K/uL Baso # (Auto) (0.00-0.20) K/uL Immature Gran # (Auto) (0.01-0.20) K/uL PT (9.0-12.0) Seconds INR (0.9-1.1) APTT (21-31) Seconds PTT Ratio Sodium (136-145) mmol/L Potassium (3.5-5.1) mmol/L Chloride (98-107) mmol/L Carbon Dioxide (21-32) mmol/L Anion Gap (3-11) BUN (6-23) mg/dl Creatinine (0.6-1.4) mg/dl Est Cr Clr Drug Dosing ml/min Est GFR ( Amer) ml/min Est GFR (Non-Af Amer) ml/min BUN/Creatinine Ratio (10-20) Glucose (70-99(Fasting)) mg/dl Lactate 0.8 (0.4-2.0) mmol/L Calcium (8.6-10.3) mg/dl Magnesium (1.7-2.4) mg/dl Total Bilirubin (0.2-1.0) mg/dl AST (13-39) U/L ALT (7-52) U/L Alkaline Phosphatase (34-104) U/L Troponin I High Sens (0-20) pg/ml B-Natriuretic Peptide (0-100) pg/ml Total Protein (6.0-8.3) gm/dl Albumin (3.4-5.0) gm/dl Globulin (2.5-4.0) gm/dl Albumin/Globulin Ratio (0.9-2) Procalcitonin (0-0.5) ng/ml Adenovirus (PCR) (NotDetected) B. pertussis DNA (PCR) (NotDetected) B.parapertussis DNA PCR (NotDetected) C. pneumoniae DNA (PCR) (NotDetected) Coronavirus OC43 (PCR) (NotDetected) Coronavirus HKU1 (PCR) (NotDetected) Coronavirus 229E (PCR) (NotDetected) SARS-CoV-2 (PCR) (NotDetected) Coronavirus NL63 (PCR) (NotDetected) Human Metapneumovir PCR (NotDetected) Influenza Type A (PCR) (NotDetected) Influenza Type B (PCR) (NotDetected) M. pneumoniae (PCR) (NotDetected) Parainfluenza 1 (PCR) (NotDetected) Parainfluenza 2 (PCR) (NotDetected) Parainfluenza 3 (PCR) (NotDetected) Parainfluenza 4 (PCR) (NotDetected) RSV (PCR) (NotDetected) Entero/Rhino (PCR) (NotDetected) Administered Medications Acetaminophen (Acetaminophen 325 Mg Tab) 650 mg PO QID PRN PRN Reason: pain/fever Stop: 04/07/23 22:51 Last Admin: 03/08/23 22:59 Dose: 650 mg Documented By: SHA Fentanyl Citrate (Fentanyl Citrate Pf 100 Mcg/2 Ml Vial) 50 mcg IV Q15M PRN PRN Reason: Pain Stop: 03/22/23 20:38 Last Admin: 03/08/23 21:38 Dose: 50 mcg Documented By: SHA Heparin Sodium/Dextrose (Heparin Sodium/Dextrose) 25,000 units in 500 mls @ 28 mls/hr IV .[id number] [facility]; Protocol Stop: 04/07/23 22:59 Last Admin: 03/08/23 23:06 Dose: 1,400 units/hr, 28 mls/hr Documented By: SHA Co-signed By: ALEXANDRA Sodium Chloride (Nss) 1,000 mls @ 200 mls/hr IV .Q5H ONE Stop: 03/09/23 03:51 Last Admin: 03/08/23 23:13 Dose: 80 mls/hr Documented By: SHA Oxycodone HCl (Oxycodone Hcl Ir 5 Mg Tab (Immediate Release)) 5 - 10 mg PO QID PRN PRN Reason: Pain Stop: 03/22/23 22:51 Last Admin: 03/08/23 22:59 Dose: 5 mg Documented By: SHA Discontinued Medications Heparin Sodium (Porcine) (Heparin Sod (Porcine) 1000 Unit/Ml) 6,000 units IV NOW ONE Stop: 03/08/23 23:01 Last Admin: 03/08/23 23:06 Dose: 6,000 units Documented By: SHA Co-signed By: ALEXANDRA Heparin Sodium/Dextrose (Heparin Iv Adult Wt-Based Standard W/ Initial Bolus Protocol) 1 each IV NOW STA; Protocol Stop: 03/08/23 22:44 Last Admin: 03/08/23 23:19 Dose: 1 each Documented By: SHA Sodium Chloride (Nss) 500 mls @ 999 mls/hr IV .Q31M ONE Stop: 03/08/23 21:09 Last Infusion: 03/08/23 22:41 Dose: Infused Documented By: Admin: 03/08/23 20:45 Dose: 999 mls/hr Documented By: SHA Pantoprazole Sodium 40 mg/ (Syringe) 10 mls @ 5 mls/min IV NOW ONE Stop: 03/08/23 20:40 Last Admin: 03/08/23 21:24 Dose: 5 mls/min Documented By: SHA Ioversol (Optiray 320 125ml) 116 ml IV ONCE ONE Stop: 03/08/23 21:11 Last Admin: 03/08/23 21:10 Dose: 116 ml Documented By: DARIO Ketorolac Tromethamine (Ketorolac Tromethamine 15 Mg/Ml Vial) 15 mg IV NOW ONE Stop: 03/08/23 23:34 Last Admin: 03/09/23 01:02 Dose: 15 mg Documented By: SHA Imaging Data Radiologist's Impression: Chest CTA 03/08/23 20:54 Exam(s): CTA CHEST W/WO Contrast IV Amt: 116 cc opti 320 EXAM: CT Angiography Chest Without and With Intravenous Contrast CLINICAL HISTORY: Reason for exam: cp into back, hypotensive. TECHNIQUE: Axial computed tomographic angiography images of the chest without and with intravenous contrast. CTDI is 68.45 mGy and DLP is 1797.03 mGy-cm. Automated exposure control was utilized for the study. A dose lowering technique was utilized adhering to the principles of ALARA. MIP reconstructed images were created and reviewed. CONTRAST: Patient received 116 cc opti 320 of IV contrast COMPARISON: No relevant prior studies available. FINDINGS: Pulmonary arteries: Unremarkable. No pulmonary embolism. Aorta: There is 12 mm x 6 mm filling defect in the proximal descending thoracic aorta, consistent with a thrombus. No thoracic aortic aneurysm. Coronary vascular calcifications are seen. Lungs: Unremarkable. No mass. No consolidation. Pleural space: Unremarkable. No significant effusion. No pneumothorax. Heart: Unremarkable. No cardiomegaly. No significant pericardial effusion. No evidence of RV dysfunction. Bones/joints: No acute fracture. No dislocation. Soft tissues: Unremarkable. Lymph nodes: Unremarkable. No enlarged lymph nodes. Stomach and bowel: There is mild diffuse gastric wall thickening identified. IMPRESSION: 1. Pulmonary embolism 2. Diffuse gastric wall prominence, suggestive of gastritis 3. Thrombus in the proximal descending thoracic aorta. Electronically signed by: Nilton Andersen MD 03/08/23 21:54 PM Discharge Plan Visit Data Chief Complaint: Chest Pain ED Provider: Francy Rushing Discharge Problem: Chest pain, Acute hypotension, Thrombus of aorta Patient Disposition: Admitted As Inpatient
[2023-03-08] MEDS ORDERED: OPTIRAY 320 125ml IV ONE (21:10)
--- NOTE | 2023-03-08 21:55 | CT Scan Report ---
Exam(s): CTA CHEST W/WO Contrast IV Amt: 116 cc opti 320 EXAM: CT Angiography Chest Without and With Intravenous Contrast CLINICAL HISTORY: Reason for exam: cp into back, hypotensive. TECHNIQUE: Axial computed tomographic angiography images of the chest without and with intravenous contrast. CTDI is 68.45 mGy and DLP is 1797.03 mGy-cm. Automated exposure control was utilized for the study. A dose lowering technique was utilized adhering to the principles of ALARA. MIP reconstructed images were created and reviewed. CONTRAST: Patient received 116 cc opti 320 of IV contrast COMPARISON: No relevant prior studies available. FINDINGS: Pulmonary arteries: Unremarkable. No pulmonary embolism. Aorta: There is 12 mm x 6 mm filling defect in the proximal descending thoracic aorta, consistent with a thrombus. No thoracic aortic aneurysm. Coronary vascular calcifications are seen. Lungs: Unremarkable. No mass. No consolidation. Pleural space: Unremarkable. No significant effusion. No pneumothorax. Heart: Unremarkable. No cardiomegaly. No significant pericardial effusion. No evidence of RV dysfunction. Bones/joints: No acute fracture. No dislocation. Soft tissues: Unremarkable. Lymph nodes: Unremarkable. No enlarged lymph nodes. Stomach and bowel: There is mild diffuse gastric wall thickening identified. IMPRESSION: 1. Pulmonary embolism 2. Diffuse gastric wall prominence, suggestive of gastritis 3. Thrombus in the proximal descending thoracic aorta. Electronically signed by: Nilton Andersen MD 03/08/23 21:54 PM
[2023-03-08 22:01] LABS: Adenovirus PCR Not Detected (NotDetected); Bordetella parapertussis PCR Not Detected (NotDetected); Bordetella pertussis PCR Not Detected (NotDetected); Chlamydia pneumoniae PCR Not Detected (NotDetected); Coronavirus 229E PCR Not Detected (NotDetected); Coronavirus CoV-2 (COVID19)PCR Not Detected (NotDetected); Coronavirus HKU1 PCR Not Detected (NotDetected); Coronavirus NL63 PCR Not Detected (NotDetected); Coronavirus OC43PCR Not Detected (NotDetected); Human Metapneumovirus PCR Not Detected (NotDetected); Influenza A PCR Not Detected (NotDetected); Influenza B PCR Not Detected (NotDetected); Mycoplasma pneumoniae PCR Not Detected (NotDetected); Parainfluenza Virus 1 PCR Not Detected (NotDetected); Parainfluenza Virus 2 PCR Not Detected (NotDetected); Parainfluenza Virus 3 PCR Not Detected (NotDetected); Parainfluenza Virus 4 PCR Not Detected (NotDetected); Respiratory Syncytial VirusPCR Not Detected (NotDetected); Rhinovirus/Enterovirus PCR Not Detected (NotDetected)
[2023-03-08] MEDS ORDERED: Heparin IV Adult Wt-Based Standard w/ INITIAL Bolus Protocol IV STA (22:43)
[2023-03-08] MEDS ORDERED: SODIUM CHLORIDE 0.9% 1,000 ML IV ONE (22:52)
[2023-03-08] MEDS ORDERED: HEPARIN SOD (PORCINE) 1000 UNIT/ML IV ONE ×2 (22:58→23:00)
[2023-03-08] MEDS: oxyCODONE HCL IR 5 MG TAB (IMMEDIATE RELEASE) PO PRN (22:59)
[2023-03-08] MEDS: ACETAMINOPHEN 325 MG TAB PO PRN (22:59)
[2023-03-08] MEDS ORDERED: HEPARIN SODIUM/DEXTROSE 25,000 UNITS/500 ML BAG IV SCH (23:00)
[2023-03-08 23:14] LABS: Magnesium 1.6 mg/dl (1.7-2.4)
[2023-03-08] MEDS ORDERED: KETOROLAC TROMETHAMINE 15 MG/ML VIAL IV ONE (23:33)
--- NOTE | 2023-03-08 23:35 | History & Physical Report ---
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 aortic thrombus TAYLOR, CPAP noncompliant histoplasmosis as per records hyperlipidemia, on statin Rx prediabetes, hemoglobin A1c of 5.9 from 2019 anxiety/mood disorder, patient anxious during exam ongoing tobacco abuse PCU given hypotension Supplemental O2 IVF IV heparin for thromboembolic prophylaxis Defer discussion regarding home anticoagulation between patient and AM provider. Patient tolerated Coumadin 8 years ago. LE venous Dopplers rule out DVT Vascular surgery consultation Re: Aortic thrombus (ER provider already in [place] [facility] [place] who recommends medical management for now and inpatient Vascular Surgery evaluation.ER provider awaiting callback from Dr. Padilla.) Update hemoglobin A1c Nicotine patch as needed DVT prophylaxis. IV heparin Full code. Text document was generated using [employer] voice recognition software. It may contain grammatical or spelling errors. Kindly contact undersigned for clarification of any documentation item in question. History of Present Illness Chief Complaint: Chest pain, shortness of breath Primary Care Provider: Ajit Moreno MD History obtained from patient and records. Medical history significant for COPD, history of PE status post Coumadin, ongoing tobacco abuse, TAYLOR, histoplasmosis as per records, hyperlipidemia, prediabetes, anxiety/mood disorder, ongoing tobacco abuse. Last confinement October 2021 for COPD exacerbation. Recent ER visit 10 days ago for cough, SOB, asthma attack symptoms. Patient found to be RSV positive. Sick contact at home. Symptoms resolved with supportive management at home. Patient experienced pleuritic chest pain while watching TV associated with shortness of breath, no unusual cough symptoms. Denies fluid retention. Patient consulted ER for evaluation. O2 sats 80s, lowest SBP of 80s upon arrival at the ER. 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 Allergies Allergy/AdvReac Type Severity Reaction Status Date / Time fluticasone furoate Allergy Intermediate lightheadedness Verified 03/08/23 21:30 [From Trelegy Ellipta] and nausea umeclidinium Allergy Intermediate lightheadedness Verified 03/08/23 21:30 [From Trelegy Ellipta] and nausea vilanterol Allergy Intermediate lightheadedness Verified 03/08/23 21:30 [From Trelegy Ellipta] and nausea Home Medications Medication Instructions Recorded Confirmed Type atorvastatin 10 mg tablet (Lipitor) 10 mg PO HS 10/16/17 03/08/23 History pregabalin 100 mg capsule (Lyrica) 100 mg PO BID 10/16/17 03/08/23 History pantoprazole 40 mg tablet,delayed 40 mg PO BID 30 days #60 tabs 03/02/21 03/08/23 Rx release (Protonix) meclizine 12.5 mg tablet 12.5 mg PO TID PRN Dizziness 06/28/21 03/08/23 History prednisone 20 mg tablet 40 mg PO QAM PRN RESCUE KIT 04/05/22 03/08/23 History bupropion HCl 150 mg tablet,12 hr 150 mg PO BID 04/07/22 03/08/23 History sustained-release (Wellbutrin SR) ondansetron 8 mg disintegrating 8 mg PO Q8H PRN Nausea 04/07/22 03/08/23 History tablet albuterol sulfate 90 mcg/actuation 2 puff inhalation Q4H PRN 12/29/22 03/08/23 History aerosol inhaler Shortness Of Breath Or Wheezing clobetasol 0.05 % topical cream 1 applic topical BID PRN Rash 12/29/22 03/08/23 History levalbuterol HCl 1.25 mg/3 mL 1.25 mg inhalation Q4H PRN Wheezing 12/29/22 03/08/23 History solution for nebulization triamcinolone acetonide 0.1 % 1 applic topical BID PRN Rash 12/29/22 03/08/23 History topical cream umeclidinium 62.5 mcg-vilanterol 1 inh inhalation DAILY 12/29/22 03/08/23 History 25 mcg/actuation powdr for inhalation (Anoro Ellipta) cyanocobalamin (vitamin B-12) 1,000 mcg PO DAILY 03/08/23 03/08/23 History 1,000 mcg tablet (Vitamin B-12) Past Med/Surg History Medical History (Updated 03/09/23 @ 01:48 by Joselito Granda MD) Acute respiratory failure with hypoxemia Chronic respiratory failure On oxygen at night in the past - but no longer needs per patient Hx of migraines Sleep apnea No device History of COVID-19 2019, moderate symptoms > resolved 2020, mild symptoms > resolved Post-nasal drip Chronic - stable HLD (hyperlipidemia) TAYLOR (obstructive sleep apnea) Cannot tolerate device Anxiety Pneumothorax Hx- complication from pain injection- resolved COPD, moderate Breathing stable Neuropathy GERD (gastroesophageal reflux disease) Well controlled and stable Histoplasmosis 2002- treated Diaphragmatic hernia Thoracic spinal stenosis Surgical History History of esophagogastroduodenoscopy (EGD) Hx of colonoscopy History of open reduction and internal fixation (ORIF) procedure right shoulder History of total replacement of left shoulder joint History of sinus surgery History of placement of chest tube History of hand surgery Left femoral shaft fracture Dutch placed H/O total hip arthroplasty left side H/O elbow surgery H/O exploratory thoracotomy "Left thoracotomy wedge biopsy of left upper lobe with excision of lesion or nodule & frozen section 2002" H/O hernia repair "[facility] incarcerated supraumbilical hernia repair open no mesh 02/17/01" Family History Father Heart disease Hypertension Brother Cancer Hypertension Stroke Heart disease Mother Cancer Other Leukemia No family history of bleeding disorder Non-Hodgkin lymphoma Denies family history of Hearing loss Asthma Social History Smoking Status: Current every day smoker Tobacco Type: Cigarettes and Cigars Age Started Using Tobacco: 11; packs per day: 1; Cigarettes Per Day: 10 cigs /day; Second Hand Exposure: No; Do You Dip or Chew Tobacco: No; Hx Alcohol Use: Yes Alcohol type: hard liquor Hx Substance Use: No Preferred Language: Georgian Communication Ability: Effective Map Maker Required: No Beliefs That Will Affect Care: None marital status: Current Living Situation: Spouse and Family current occupational status: unemployed Feels Safe at Home: Yes Assistive Devices: Denture - Upper, Denture - Lower, Glasses and Nebulizer Review of Systems Review of Systems: As per HPI, all other systems reviewed and negative Physical Exam Physical Exam: GENERAL: uncomfortable, obese, anxious, episodic tachypnea SKIN: Normal color, warm HEENT: Partial alopecia, bespectacled, pink palpebral conjunctivae, no ptosis, dry buccal mucosa, nasal cannula in place NECK : Supple, no tenderness CHEST : Decreased breath sounds, occasional scattered wheezes, no tenderness HEART : RRR, no obvious murmurs ABDOMEN: Some distention, nontender EXTREMITIES : No LE swelling/tenderness, no other conspicuous deformities noted NEUROLOGIC : Coherent, no facial asymmetry, no other gross focality Results & Data Results & Data Vital Signs (Past 12 Hours) Vital Signs Temp Pulse Resp BP Pulse Ox O2 Del Method O2 Flow Rate 03/08/23 21:45 86 18 107/63 95 03/08/23 21:44 86 18 95 03/08/23 21:41 85 13 98/56 L 96 03/08/23 21:41 85 13 96 03/08/23 21:40 84 16 96 03/08/23 21:30 84 18 107/55 L 95 03/08/23 21:30 84 18 95 03/08/23 21:25 87 23 110/54 L 96 03/08/23 21:25 87 23 96 03/08/23 21:23 92 H 22 03/08/23 20:50 89 18 94 03/08/23 20:44 96 H 19 102/56 L 94 03/08/23 20:44 96 H 19 94 03/08/23 20:43 100 H 17 93 03/08/23 20:40 96 H 19 95 03/08/23 20:30 98 H 14 93 03/08/23 20:20 102 H 15 94 03/08/23 20:10 103 H 21 94 03/08/23 20:07 Nasal Cannula 1 03/08/23 20:05 112 H 23 94 03/08/23 20:05 96/57 L 03/08/23 20:04 108 H 19 92 03/08/23 19:59 Nasal Cannula 03/08/23 19:59 37.1 C 113 H 24 96/57 L 94 Nasal Cannula 1 Laboratory Results Laboratory Results WBC 15.25 K/ul (4.8-10.8) H 03/08/23 18:40 RBC 4.97 M/uL (4.70-6.10) 03/08/23 18:40 Hgb 15.8 g/dl (14.0-18.0) 03/08/23 18:40 Hct 44.0 % (42.0-52.0) 03/08/23 18:40 MCV 88.5 fL (80.0-100.0) 03/08/23 18:40 MCH 31.8 pg (25.0-34.0) 03/08/23 18:40 MCHC 35.9 g/dL (32.0-36.0) 03/08/23 18:40 RDW Std Deviation 50.7 fL (36.4-46.3) H 03/08/23 18:40 RDW Coeff of Jaz 15.7 % (11.5-14.5) H 03/08/23 18:40 Plt Count 234 K/uL (130-400) 03/08/23 18:40 MPV 11.4 fL (9.4-12.4) 03/08/23 18:40 Immature Gran % (Auto) 0.6 % 03/08/23 18:40 Neut % (Auto) 72.9 % 03/08/23 18:40 Lymph % (Auto) 15.0 % 03/08/23 18:40 Mccreary % (Auto) 10.1 % 03/08/23 18:40 Eos % (Auto) 1.2 % 03/08/23 18:40 Baso % (Auto) 0.2 % 03/08/23 18:40 Neut # (Auto) 11.13 K/uL (1.40-6.50) H 03/08/23 18:40 Lymph # (Auto) 2.28 K/uL (1.20-3.40) 03/08/23 18:40 Mccreary # (Auto) 1.54 K/uL (0.11-0.59) H 03/08/23 18:40 Eos # (Auto) 0.18 K/uL (0.00-0.50) 03/08/23 18:40 Baso # (Auto) 0.03 K/uL (0.00-0.20) 03/08/23 18:40 Immature Gran # (Auto) 0.09 K/uL (0.01-0.20) 03/08/23 18:40 PT 10.3 Seconds (9.0-12.0) 03/08/23 18:40 INR 0.9 (0.9-1.1) 03/08/23 18:40 APTT 24 Seconds (21-31) 03/08/23 18:40 PTT Ratio 0.9 03/08/23 18:40 Sodium 136 mmol/L (136-145) 03/08/23 18:40 Potassium 4.1 mmol/L (3.5-5.1) 03/08/23 18:40 Chloride 99 mmol/L (98-107) 03/08/23 18:40 Carbon Dioxide 28 mmol/L (21-32) 03/08/23 18:40 Anion Gap 9 (3-11) 03/08/23 18:40 BUN 30 mg/dl (6-23) H 03/08/23 18:40 Creatinine 1.15 mg/dl (0.6-1.4) 03/08/23 18:40 Est Cr Clr Drug Dosing 67.3 ml/min 03/08/23 18:40 Est GFR ( Amer) 74.8 ml/min 03/08/23 18:40 Est GFR (Non-Af Amer) 64.6 ml/min 03/08/23 18:40 BUN/Creatinine Ratio 26.1 (10-20) H 03/08/23 18:40 Glucose 100 mg/dl (70-99(Fasting)) H 03/08/23 18:40 Calcium 9.0 mg/dl (8.6-10.3) 03/08/23 18:40 Magnesium 1.6 mg/dl (1.7-2.4) L 03/08/23 18:40 Total Bilirubin 0.5 mg/dl (0.2-1.0) 03/08/23 18:40 AST 33 U/L (13-39) 03/08/23 18:40 ALT 63 U/L (7-52) H 03/08/23 18:40 Alkaline Phosphatase 86 U/L (34-104) 03/08/23 18:40 Troponin I High Sens 5.8 pg/ml (0-20) 03/08/23 18:40 B-Natriuretic Peptide 19 pg/ml (0-100) 03/08/23 22:36 Total Protein 6.7 gm/dl (6.0-8.3) 03/08/23 18:40 Albumin 3.9 gm/dl (3.4-5.0) 03/08/23 18:40 Globulin 2.8 gm/dl (2.5-4.0) 03/08/23 18:40 Albumin/Globulin Ratio 1.4 (0.9-2) 03/08/23 18:40 Procalcitonin < 0.05 ng/ml (0-0.5) 03/08/23 18:40 Adenovirus (PCR) Not Detected (NotDetected) 03/08/23 20:48 B. pertussis DNA (PCR) Not Detected (NotDetected) 03/08/23 20:48 B.parapertussis DNA PCR Not Detected (NotDetected) 03/08/23 20:48 C. pneumoniae DNA (PCR) Not Detected (NotDetected) 03/08/23 20:48 Coronavirus OC43 (PCR) Not Detected (NotDetected) 03/08/23 20:48 Coronavirus HKU1 (PCR) Not Detected (NotDetected) 03/08/23 20:48 Coronavirus 229E (PCR) Not Detected (NotDetected) 03/08/23 20:48 SARS-CoV-2 (PCR) Not Detected (NotDetected) 03/08/23 20:48 Coronavirus NL63 (PCR) Not Detected (NotDetected) 03/08/23 20:48 Human Metapneumovir PCR Not Detected (NotDetected) 03/08/23 20:48 Influenza Type A (PCR) Not Detected (NotDetected) 03/08/23 20:48 Influenza Type B (PCR) Not Detected (NotDetected) 03/08/23 20:48 M. pneumoniae (PCR) Not Detected (NotDetected) 03/08/23 20:48 Parainfluenza 1 (PCR) Not Detected (NotDetected) 03/08/23 20:48 Parainfluenza 2 (PCR) Not Detected (NotDetected) 03/08/23 20:48 Parainfluenza 3 (PCR) Not Detected (NotDetected) 03/08/23 20:48 Parainfluenza 4 (PCR) Not Detected (NotDetected) 03/08/23 20:48 RSV (PCR) Not Detected (NotDetected) 03/08/23 20:48 Entero/Rhino (PCR) Not Detected (NotDetected) 03/08/23 20:48 Impressions Chest CTA 03/08/23 20:54 Exam(s): CTA CHEST W/WO Contrast IV Amt: 116 cc opti 320 EXAM: CT Angiography Chest Without and With Intravenous Contrast CLINICAL HISTORY: Reason for exam: cp into back, hypotensive. TECHNIQUE: Axial computed tomographic angiography images of the chest without and with intravenous contrast. CTDI is 68.45 mGy and DLP is 1797.03 mGy-cm. Automated exposure control was utilized for the study. A dose lowering technique was utilized adhering to the principles of ALARA. MIP reconstructed images were created and reviewed. CONTRAST: Patient received 116 cc opti 320 of IV contrast COMPARISON: No relevant prior studies available. FINDINGS: Pulmonary arteries: Unremarkable. No pulmonary embolism. Aorta: There is 12 mm x 6 mm filling defect in the proximal descending thoracic aorta, consistent with a thrombus. No thoracic aortic aneurysm. Coronary vascular calcifications are seen. Lungs: Unremarkable. No mass. No consolidation. Pleural space: Unremarkable. No significant effusion. No pneumothorax. Heart: Unremarkable. No cardiomegaly. No significant pericardial effusion. No evidence of RV dysfunction. Bones/joints: No acute fracture. No dislocation. Soft tissues: Unremarkable. Lymph nodes: Unremarkable. No enlarged lymph nodes. Stomach and bowel: There is mild diffuse gastric wall thickening identified. IMPRESSION: 1. Pulmonary embolism 2. Diffuse gastric wall prominence, suggestive of gastritis 3. Thrombus in the proximal descending thoracic aorta. Electronically signed by: Nilton nAdersen MD 03/08/23 21:54 PM Diagnostic Findings EKG as per my interpretation : Rate 115, sinus tachycardia, normal axis, incomplete RBBB, multiple artifacts
[2023-03-08] MEDS ORDERED: LORazepam 0.5 MG TAB PO PRN (23:38)
[2023-03-08] MEDS ORDERED: PROMETHAZINE HCL 6.25 MG in SODIUM CHLORIDE 0.9% 50 ML IV PRN (23:38)
[2023-03-09] MEDS ORDERED: LEVALBUTEROL 1.25 MG/3 ML NEB INH PRN (01:49)
[2023-03-09] MEDS ORDERED: ALBUT/IPRATROP 3MG/0.5MG NEB 3 ML VIAL NEB STA (04:02)
--- NOTE | 2023-03-09 04:11 | Ultrasound Report ---
Exam(s): US VENOUS BILATERAL LOWER EXTREMITIES EXAM: US Duplex Bilateral Lower Extremities Veins CLINICAL HISTORY: Recurrent pe. TECHNIQUE: Real-time duplex ultrasound scan of the bilateral lower extremity veins integrating B-mode two-dimensional vascular structure, Doppler spectral analysis, color flow Doppler imaging and compression. COMPARISON: No relevant prior studies available. FINDINGS: Right deep veins: Unremarkable. No DVT in the right common femoral, femoral, proximal deep femoral or popliteal veins. The veins demonstrate normal color flow, are normally compressible, with normal phasic flow and/or augmentation response. Left deep veins: Unremarkable. No DVT in the left common femoral, femoral, proximal deep femoral or popliteal veins. The veins demonstrate normal color flow, are normally compressible, with normal phasic flow and/or augmentation response. Soft tissues: No acute abnormality. No popliteal cyst. IMPRESSION: No evidence of deep venous thrombosis. Electronically signed by: Michael Oshea M.D. 03/09/23 04:10 AM
[2023-03-09 05:03] LABS: Basophils # (auto) 0.03 K/uL (0.00-0.20); Basophils % (auto) 0.3 %; Eosinophils # (auto) 0.28 K/uL (0.00-0.50); Eosinophils % (auto) 2.7 %; Hematocrit (blood only) 38.9 % (42.0-52.0); Hemoglobin 13.2 g/dl (14.0-18.0); Immature Granulocytes # (auto) 0.05 K/uL (0.01-0.20); Immature Granulocytes % (auto) 0.5 %; Lymphocytes # (auto) 2.78 K/uL (1.20-3.40); Lymphocytes % (auto) 27.2 %; Mean Corpuscular Hemoglobin 31.1 pg (25.0-34.0); Mean Corpuscular Hgb Conc 33.9 g/dL (32.0-36.0); Mean Corpuscular Volume 91.7 fL (80.0-100.0); Mean Platelet Volume 10.6 fL (9.4-12.4); Monocytes # (auto) 1.08 K/uL (0.11-0.59); Monocytes % (auto) 10.6 %; Neutrophils # (auto) 5.99 K/uL (1.40-6.50); Neutrophils % (auto) 58.7 %; Platelet Count 176 K/uL (130-400); RDW Coefficient of Variation 15.5 % (11.5-14.5); RDW Standard Deviation 51.7 fL (36.4-46.3); Red Blood Count 4.24 M/uL (4.70-6.10); White Blood Count 10.21 K/ul (4.8-10.8)
[2023-03-09 05:22] LABS: Calcium 8.1 mg/dl (8.6-10.3); Creatinine Clr Calc Pharmacy 74.4 ml/min; Est GFR (African American) 84.5 ml/min; Est GFR (Non-African American) 72.9 ml/min; Potassium 3.8 mmol/L (3.5-5.1)
[2023-03-09] MEDS: buPROPion SR 150 MG TABCR PO SCH ×3 (05:22→21:18)
[2023-03-09] MEDS: PREGABALIN 100 MG CAP PO SCH ×3 (05:24→21:18)
[2023-03-09 06:18] LABS: ANTI-Xa, UFH(UnfractionatedHep 1.12 IU/ml (0.3-0.7)
[2023-03-09 07:36] LABS: Estimated Average Glucose 126 mg/dl
--- NOTE | 2023-03-09 07:55 | XRay Report ---
XR chest 1V not portable CLINICAL HISTORY: Chest pain, nonspecific TECHNIQUE: Single frontal radiograph of the chest was obtained. Comparison: Comparison is made to chest radiograph 02/28/2023 FINDINGS: No lines and tubes are seen. The cardiomediastinal silhouette is normal. The lungs are clear. No evid ence of pleural effusion or pneumothorax. Bilateral shoulder arthroplasties are seen. IMPRESSION: No acute chest disease. ACT 112: Negative or not required by law. Electronically signed by: Florin Soto M.D. 03/09/2023 7:54 AM
[2023-03-09 08:59] LABS: ANTI-Xa, UFH(UnfractionatedHep 0.93 IU/ml (0.3-0.7)
[2023-03-09] MEDS ORDERED: ATORVASTATIN 40 MG TAB PO SCH (09:00)
--- NOTE | 2023-03-09 09:07 | Communication Note ---
Date of Service: March 09, 2023 Imaging findings reviewed. Discussed with radiology( Dr. Soto) to confirm that there is no pulmonary embolism. Patient does have thrombus in proximal descending thoracic aorta as mentioned in the CTA chest. [place] [facility] [place] the images. As per him, the thrombus is likely an incidental finding. He recommended that patient is placed on aspirin, high-dose statin and anticoagulation with Eliquis for 3 months. Cardiology consulted to evaluate for chest pain. Heparin switched over to Lovenox for the time being for the ease of use. Lipitor 80 mg and aspirin 81 mg ordered. As per Dr. Alba, if patient develops ischemic complication due to embolization of thrombus; he [place] [facility] [place]
[2023-03-09] MEDS ORDERED: ENOXAPARIN 1 MG/KG SQ SCH (09:15)
[2023-03-09] MEDS: ASPIRIN 81 MG ECTAB PO SCH (09:40)
[2023-03-09] MEDS: ATORVASTATIN 40 MG TAB PO SCH (09:40)
[2023-03-09] MEDS: ENOXAPARIN 100 MG/1ML SYR SQ SCH ×2 (09:41→21:19)
[2023-03-09] MEDS: CYANOCOBALAMIN (B-12) 500 MCG TABLET PO SCH (09:41)
[2023-03-09] MEDS: PANTOprazole 40 MG TAB PO SCH ×2 (09:41→21:18)
--- NOTE | 2023-03-09 10:52 | Consultation ---
Date of Consultation March 09, 2023 Assessment & Plan (1) Thrombus of aorta: Pt with thrombus in thoracic aorta on CT scan. No evidence of aneurysm or dissection. BL PE also noted. While BLE venous doppler is negative, approx 20% of PE come from pelvic veins. Pt discussed with Dr Padilla, recommends antic oagulation. No indications for vascular surgical intervention at this time. Suggest echo with bubble study to r/o PFO. Please call if needed. History of Present Illness Reason for Consultation: aortic thrombus Attending Physician: Enzo Smith MD History of Present Illness 67 yo m with hx of PE, hyperlipidemia, COPD on oxygen via NC, cervical radiculopathy, GERD, thoracic spinal stenosis, neuropathy, admitted with chest pain and found to have PE, seen in consultation today for aortic thrombus also incidentally noted. Pt states hx of PE in 2016, no other thrombotic events. States he is recovering from recent RSV infection. States he developed chest pain, worse with breathing yesterday and came to [facility] for eval. Denies GUTIERREZ, fever, abd pain, N/V, rest pain, claudication other complaints. CTA chest demonstrates BL PE and thoracic aortic thrombus. Allergies Allergy/AdvReac Type Severity Reaction Status Date / Time fluticasone furoate Allergy Intermediate lightheadedness Verified 03/08/23 21:30 [From Trelegy Ellipta] and nausea umeclidinium Allergy Intermediate lightheadedness Verified 03/08/23 21:30 [From Trelegy Ellipta] and nausea vilanterol Allergy Intermediate lightheadedness Verified 03/08/23 21:30 [From Trelegy Ellipta] and nausea Home Medications Medication Instructions Recorded Confirmed Type atorvastatin 10 mg tablet (Lipitor) 10 mg PO HS 10/16/17 03/08/23 History pregabalin 100 mg capsule (Lyrica) 100 mg PO BID 10/16/17 03/08/23 History pantoprazole 40 mg tablet,delayed 40 mg PO BID 30 days #60 tabs 03/02/21 03/08/23 Rx release (Protonix) meclizine 12.5 mg tablet 12.5 mg PO TID PRN Dizziness 06/28/21 03/08/23 History prednisone 20 mg tablet 40 mg PO QAM PRN RESCUE KIT 04/05/22 03/08/23 History bupropion HCl 150 mg tablet,12 hr 150 mg PO BID 04/07/22 03/08/23 History sustained-release (Wellbutrin SR) ondansetron 8 mg disintegrating 8 mg PO Q8H PRN Nausea 04/07/22 03/08/23 History tablet albuterol sulfate 90 mcg/actuation 2 puff inhalation Q4H PRN 12/29/22 03/08/23 History aerosol inhaler Shortness Of Breath Or Wheezing clobetasol 0.05 % topical cream 1 applic topical BID PRN Rash 12/29/22 03/08/23 History levalbuterol HCl 1.25 mg/3 mL 1.25 mg inhalation Q4H PRN Wheezing 12/29/22 03/08/23 History solution for nebulization triamcinolone acetonide 0.1 % 1 applic topical BID PRN Rash 12/29/22 03/08/23 History topical cream umeclidinium 62.5 mcg-vilanterol 1 inh inhalation DAILY 12/29/22 03/08/23 History 25 mcg/actuation powdr for inhalation (Anoro Ellipta) cyanocobalamin (vitamin B-12) 1,000 mcg PO DAILY 03/08/23 03/08/23 History 1,000 mcg tablet (Vitamin B-12) Patient History Medical History Acute respiratory failure with hypoxemia Chronic respiratory failure On oxygen at night in the past - but no longer needs per patient Hx of migraines Sleep apnea No device History of COVID-19 2019, moderate symptoms > resolved 2020, mild symptoms > resolved Post-nasal drip Chronic - stable HLD (hyperlipidemia) TAYLOR (obstructive sleep apnea) Cannot tolerate device Anxiety Pneumothorax Hx- complication from pain injection- resolved COPD, moderate Breathing stable Neuropathy GERD (gastroesophageal reflux disease) Well controlled and stable Histoplasmosis 2002- treated Diaphragmatic hernia Thoracic spinal stenosis Surgical History History of esophagogastroduodenoscopy (EGD) Hx of colonoscopy History of open reduction and internal fixation (ORIF) procedure right shoulder History of total replacement of left shoulder joint History of sinus surgery History of placement of chest tube History of hand surgery Left femoral shaft fracture Dutch placed H/O total hip arthroplasty left side H/O elbow surgery H/O exploratory thoracotomy "Left thoracotomy wedge biopsy of left upper lobe with excision of lesion or nodule & frozen section 2002" H/O hernia repair [facility]umbil[facility]nia repair open no mesh 02/17/01" Family History Father Heart disease Hypertension Brother Cancer Hypertension Stroke Heart disease Mother Cancer Other Leukemia No family history of bleeding disorder Non-Hodgkin lymphoma Denies family history of Hearing loss Asthma Social History Smoking Status: Current every day smoker Tobacco Type: Cigarettes and Cigars Age Started Using Tobacco: 11; packs per day: 1; Cigarettes Per Day: 10 cigs /day; Second Hand Exposure: No; Do You Dip or Chew Tobacco: No; Hx Alcohol Use: No Hx Substance Use: No Preferred Language: Yi Communication Ability: Effective Whitewasher Required: No Beliefs That Will Affect Care: None marital status: Current Living Situation: Spouse current occupational status: unemployed Feels Safe at Home: Yes Assistive Devices: Denture - Upper, Denture - Lower and Glasses Review of Systems Review of Systems: All systems reviewed & are unremarkable except as noted in HPI & below Physical Exam Constitutional: WD/WN, vitals as above cooperative; not in distress ENMT: Ears: no hearing impairment Neck: trachea midline Respiratory: normal respiratory effort Auscultation: + diminished lung sounds and + wheezes Cardiovascular: Rate/Rhythm: regular rate and regular rhythm Vessels: normal peripheral pulses, posterior tibial pulses present, dorsalis pedis pulses present and radial pulses present Extremities: normal capillary refill and + edema (+2 BLE) Gastrointestinal (Abdomen): Inspection/Auscultation: abdomen normal to inspec tion and normal bowel sounds Percussion/Palpation: abdomen soft; abdomen nontender Musculoskeletal: no cyanosis or clubbing, extremities motor strength 5/5 Skin: no rashes, warm and dry Neurologic: moves all extremities and awake; no focal motor deficits and not confused Psychiatric: A+Ox3, euthymic affect Results & Data Vital Signs (Past 12 Hours) Vital Signs Temp Pulse Pulse Resp BP BP Pulse Ox 03/09/23 08:33 68 03/09/23 08:00 36.7 C 75 22 120/71 96 03/09/23 05:40 66 18 125/80 96 03/09/23 05:13 18 94 03/08/23 23:58 77 03/08/23 23:50 78 29 H 95 03/08/23 23:45 78 22 95 03/08/23 23:45 92/62 L 03/08/23 23:40 79 19 94 03/08/23 23:30 89/58 L 03/08/23 23:30 82 17 95 03/08/23 23:20 80 21 95 03/08/23 23:15 83 18 95 03/08/23 23:15 88/49 L 03/08/23 23:10 80 18 95 03/08/23 23:00 84 19 96 03/08/23 23:00 84 19 118/73 96 03/08/23 22:50 82 28 H 95 O2 Del Method O2 Flow Rate 03/09/23 08:33 03/09/23 08:00 Nasal Cannula 2 03/09/23 05:40 Nasal Cannula 2 03/09/23 05:13 Nasal Cannula 2 03/08/23 23:58 03/08/23 23:50 03/08/23 23:45 03/08/23 23:45 03/08/23 23:40 03/08/23 23:30 03/08/23 23:30 03/08/23 23:20 03/08/23 23:15 03/08/23 23:15 03/08/23 23:10 03/08/23 23:00 03/08/23 23:00 03/08/23 22:50
--- NOTE | 2023-03-09 12:37 | Hospitalist Progress Note ---
Date of Service March 09, 2023 Assessment & Plan (1) Chest pain: (2) Thrombus of aorta: Plan: Patient presented to the ED with complaint of chest pain. Patient x-ray personally reviewed; no acute findings CTA chest reviewed and discussed with radiologist Dr. Soto; no PE. Thrombus in proximal descending thoracic aorta measuring 12 mm into 6 mm EKG personally reviewed; sinus tachycardia. No significant ST or T wave changes High sensitive troponin negative Respiratory viral panel negative Lower extremity venous duplex no DVT [place] Alba [place] [facility] [place] suspect that the nonocclusive aortic thrombus in proximal/descending thoracic aorta is from a ruptured atherosclerotic plaque that developed a nidus of thrombus formation. Recommended start treating with aspirin 81 mg, high-dose statin and Eliquis 5 mg twice daily. If patient develops any embolic complications; recommend to reach out to vascular surgery for possible transfer. Patient is started on aspirin 81 mg, Lipitor 80 mg. Anticoagulation with Lovenox for the time being. He will need follow-up CTA chest in 3 months. Echocardiogram pending. Cardiology consulted for chest pain; likely related with MSK as reproducible with palpation. Will appreciate any further recommendation. Chronic conditions COPDcontinue home inhalers, not in exacerbation GERDcontinue Protonix Mood disordercontinue bupropion Time spent evaluating patient, direct bedside care, chart review, placing orders, interpretation of diagnostic studies, discussion with consultants, patient, and family members, as well as other required patient management activities is 55 minutes Please note the above document was generated using voice recognition software. It may contain grammatical, syntax or spelling errors. Any formal questions or concerns about the content, text or information contained within the body of this dictation should be directly addressed to the provider for clarification Admission and Anticipated Discharge Date Admission Date: March 09, 2023 Subjective Patient seen and examined at bedside. He reports chest pain on palpation. No complaints of fever, chills, palpitations, abdominal pain or urinary symptoms. Review of Systems Review of Systems: All systems reviewed & are unremarkable except as noted in Subjective Physical Exam Physical Exam: Constitutional: WD/WN, vitals as above, NAD, sitting up in bed, pleasant, conversing easily Respiratory: Bilateral vesicular breath sound. Cardiovascular: RRR, no murmur, no edema Vessels: no JVD or carotid bruit Chest: Tenderness in palpation of substernum Abdomen: normal bowel sounds, soft, nontender, no hepatosplenomegaly Musculoskeletal: no cyanosis or clubbing, extremities motor strength 5/5 Skin: no rashes, warm and dry normal turgor Neurologic: PERRL, EOMI, accommodation nl, no face palsy, no dysarthria CN's II- XI intact bilaterally and moves all extremities Psychiatric: A+Ox3, euthymic affect Results & Data Results & Data Vital Signs (Past 12 Hours) Vital Signs Temp Pulse Pulse Resp BP Pulse Ox O2 Del Method 03/09/23 11:15 Nasal Cannula 03/09/23 11:15 36.9 C 75 16 128/73 95 Nasal Cannula 03/09/23 08:33 68 03/09/23 08:00 36.7 C 75 22 120/71 96 Nasal Cannula 03/09/23 05:40 66 18 125/80 96 Nasal Cannula 03/09/23 05:13 18 94 Nasal Cannula O2 Flow Rate 03/09/23 11:15 2 03/09/23 11:15 2 03/09/23 08:33 03/09/23 08:00 2 03/09/23 05:40 2 03/09/23 05:13 2
--- NOTE | 2023-03-09 15:07 | Electrocardiogram Report ---
Test Reason : Blood Pressure : / mmHG Vent. Rate : 113 BPM Atrial Rate : 113 BPM P-R Int : 150 ms QRS Dur : 074 ms QT Int : 340 ms P-R-T Axes : 069 061 046 degrees QTc Int : 466 ms Sinus tachycardia Otherwise normal ECG When compared with ECG of 28-FEB-2023 16:01, Premature ventricular complexes are no longer Present Premature atrial complexes are no longer Present Confirmed by José Luis Rios ([id number]) on 03/09/2023 3:07:22 PM Referred By: REFERRED SELF Confirmed By:José Luis Rios
--- NOTE | 2023-03-09 15:10 | Cardiology Consultation ---
Date of Consultation March 09, 2023 Assessment & Plan (1) Chest pain: (2) Respiratory syncytial virus (RSV): (3) Thrombus of aorta: Plan Patient presents with progressive complaints suggestive of viral respiratory tract infection with superimposed COPD exacerbation in the setting of RSV having been detected on 02/28/2023. He had pleuritic chest pain with negative high sensitive troponin x 1, nonischemic EKG, and his symptoms have ceased. Echocardiogram reveals normal w all motion. CT angiogram of the chest performed for evaluation of pulmonary embolism revealed no pulmonary embolism, but there was a filling defect in the proximal descending aorta consistent with thrombus versus atherosclerotic plaque. Dr. Smith had already discussed the case with vascular surgery and they had reviewed the CT images. I agree with antiplatelet therapy to include aspirin, intensive statin therapy with atorvastatin 80 mg daily, and anticoagulation. Lovenox has been initiated and I recommend transitioning to Coumadin. No invasive procedures planned from cardiology perspective. History of Present Illness Attending Physician: Enzo Smith MD History of Present Illness Mr Franks is a 67-year-old male seen in cardiology consultation per the request of Dr. Smith given findings of a thrombus versus atherosclerosis noted as an incidental finding on a CT angiogram of the chest. The patient has a longstanding history of COPD and ongoing tobacco use. He states he was treated with Coumadin for 6 months for a pulmonary embolism in 2016. This was a history of obstructive sleep apnea, histoplasmosis, dyslipidemia, and impaired glucose tolerance. He presented via the emergency department some pleuritic chest discomfort while watching television with associated shortness of breath. He has been found to have RSV. A CT angiogram was performed upon presentation to the emergency department revealing no pulmonary embolism. There was a 12 mm x 6 mm filling defect in the proximal descending thoracic aorta consistent with nonocclusive atherosclerotic plaque or thrombus. Patient denies chest discomfort at present. Patient denies additional chest discomfort. Allergies Allergy/AdvReac Type Severity Reaction Status Date / Time fluticasone furoate Allergy Intermediate lightheadedness Verified 03/08/23 21:30 [From Trelegy Ellipta] and nausea umeclidinium Allergy Intermediate lightheadedness Verified 03/08/23 21:30 [From Trelegy Ellipta] and nausea vilanterol Allergy Intermediate lightheadedness Verified 03/08/23 21:30 [From Trelegy Ellipta] and nausea Home Medications Medication Instructions Recorded Confirmed Type atorvastatin 10 mg tablet (Lipitor) 10 mg PO HS 10/16/17 03/08/23 History pregabalin 100 mg capsule (Lyrica) 100 mg PO BID 10/16/17 03/08/23 History pantoprazole 40 mg tablet,delayed 40 mg PO BID 30 days #60 tabs 03/02/21 03/08/23 Rx release (Protonix) meclizine 12.5 mg tablet 12.5 mg PO TID PRN Dizziness 06/28/21 03/08/23 History prednisone 20 mg tablet 40 mg PO QAM PRN RESCUE KIT 04/05/22 03/08/23 History bupropion HCl 150 mg tablet,12 hr 150 mg PO BID 04/07/22 03/08/23 History sustained-release (Wellbutrin SR) ondansetron 8 mg disintegrating 8 mg PO Q8H PRN Nausea 04/07/22 03/08/23 History tablet albuterol sulfate 90 mcg/actuation 2 puff inhalation Q4H PRN 12/29/22 03/08/23 History aerosol inhaler Shortness Of Breath Or Wheezing clobetasol 0.05 % topical cream 1 applic topical BID PRN Rash 12/29/22 03/08/23 History levalbuterol HCl 1.25 mg/3 mL 1.25 mg inhalation Q4H PRN Wheezing 12/29/22 03/08/23 History solution for nebulization triamcinolone acetonide 0.1 % 1 applic topical BID PRN Rash 12/29/22 03/08/23 History topical cream umeclidinium 62.5 mcg-vilanterol 1 inh inhalation DAILY 12/29/22 03/08/23 History 25 mcg/actuation powdr for inhalation (Anoro Ellipta) cyanocobalamin (vitamin B-12) 1,000 mcg PO DAILY 03/08/23 03/08/23 History 1,000 mcg tablet (Vitamin B-12) Patient History Medical History Acute respiratory failure with hypoxemia Chronic respiratory failure On oxygen at night in the past - but no longer needs per patient Hx of migraines Sleep apnea No device History of COVID-19 2019, moderate symptoms > resolved 2020, mild symptoms > resolved Post-nasal drip Chronic - stable HLD (hyperlipidemia) TAYLOR (obstructive sleep apnea) Cannot tolerate device Anxiety Pneumothorax Hx- complication from pain injection- resolved COPD, moderate Breathing stable Neuropathy GERD (gastroesophageal reflux disease) Well controlled and stable Histoplasmosis 2003- treated Diaphragmatic hernia Thoracic spinal stenosis Surgical History History of esophagogastroduodenoscopy (EGD) Hx of colonoscopy History of open reduction and internal fixation (ORIF) procedure right shoulder History of total replacement of left shoulder joint History of sinus surgery History of placement of chest tube History of hand surgery Left femoral shaft fracture Dutch placed H/O total hip arthroplasty left side H/O elbow surgery H/O exploratory thoracotomy "Left thoracotomy wedge biopsy of left upper lobe with excision of lesion or nodule & frozen section 2002" H/O hernia repair "[facility] incarcerated supraumbilical hernia repair open no mesh 02/17/01" Family History Father Heart disease Hypertension Brother Cancer Hypertension Stroke Heart disease Mother Cancer Other Leukemia No family history of bleeding disorder Non-Hodgkin lymphoma Denies family history of Hearing loss Asthma Social History Smoking Status: Current every day smoker Tobacco Type: Cigarettes and Cigars Age Started Using Tobacco: 11; packs per day: 1; Cigarettes Per Day: 10 cigs /day; Second Hand Exposure: No; Do You Dip or Chew Tobacco: No; Hx Alcohol Use: No Hx Substance Use: No Preferred Language: Niuean Communication Ability: Effective Project Administrator Required: No Beliefs That Will Affect Care: None marital status: Current Living Situation: Spouse current occupational status: unemployed Feels Safe at Home: Yes Assistive Devices: Denture - Upper, Denture - Lower and Glasses Review of Systems Review of Systems: All systems reviewed & are unremarkable except as noted in HPI & below Physical Exam Constitutional: no acute distress Respiratory: Auscultation: no diminished lung sounds, no crackles and no wheezes Cardiovascular: RRR, no murmur, no edema Gastrointestinal (Abdomen): normal bowel sounds, soft, nontender, no hepatosplenomegaly Neurologic: PERRL, EOMI, accommodation nl, no face palsy, no dysarthria Results & Data Vital Signs (Past 12 Hours) Vital Signs Temp Pulse Pulse Resp BP Pulse Ox O2 Del Method 03/09/23 13:10 76 03/09/23 11:15 Nasal Cannula 03/09/23 11:15 36.9 C 75 16 128/73 95 Nasal Cannula 03/09/23 08:33 68 03/09/23 08:00 36.7 C 75 22 120/71 96 Nasal Cannula 03/09/23 05:40 66 18 125/80 96 Nasal Cannula 03/09/23 05:13 18 94 Nasal Cannula O2 Flow Rate 03/09/23 13:10 03/09/23 11:15 2 03/09/23 11:15 2 03/09/23 08:33 03/09/23 08:00 2 03/09/23 05:40 2 03/09/23 05:13 2 Laboratory Results Cardiac Enzymes 03/08/23 03/08/23 Range/Units 18:40 22:36 AST 33 (13-39) U/L Troponin I High Sens 5.8 (0-20) pg/ml B-Natriuretic Peptide 19 (0-100) pg/ml Coagulation 03/08/23 03/08/23 Range/Units 18:40 22:36 PT 10.3 (9.0-12.0) Seconds APTT 24 (21-31) Seconds B-Natriuretic Peptide 19 (0-100) pg/ml CBC 03/08/23 03/09/23 Range/Units 18:40 04:53 WBC 15.25 H 10.21 (4.8-10.8) K/ul RBC 4.97 4.24 L (4.70-6.10) M/uL Hgb 15.8 13.2 L (14.0-18.0) g/dl Hct 44.0 38.9 L (42.0-52.0) % Plt Count 234 176 (130-400) K/uL Neut # (Auto) 11.13 H 5.99 (1.40-6.50) K/uL Lymph # (Auto) 2.28 2.78 (1.20-3.40) K/uL [place] # (Auto) 1.54 H 1.08 H (0.11-0.59) K/uL Eos # (Auto) 0.18 0.28 (0.00-0.50) K/uL Baso # (Auto) 0.03 0.03 (0.00-0.20) K/uL Comprehensive Metabolic Panel 03/08/23 03/09/23 Range/Units 18:40 04:53 Sodium 136 137 (136-145) mmol/L Potassium 4.1 3.8 (3.5-5.1) mmol/L Chloride 99 103 (98-107) mmol/L Carbon Dioxide 28 29 (21-32) mmol/L BUN 30 H 27 H (6-23) mg/dl Creatinine 1.15 1.04 (0.6-1.4) mg/dl Glucose 100 H 105 H (70-99(Fasting)) mg/dl Calcium 9.0 8.1 L (8.6-10.3) mg/dl AST 33 (13-39) U/L ALT 63 H (7-52) U/L Alkaline Phosphatase 86 (34-104) U/L Total Protein 6.7 (6.0-8.3) gm/dl Albumin 3.9 (3.4-5.0) gm/dl Intake and Output 03/09/23 03/09/23 03/09/23 06:59 14:59 22:59 Intake Total 1120.6 / 1320.6 200 / 1320.6 Output Total 350 / 350 Balance 1120.6 / 970.6 -150 / 970.6 Intake: IV 1120.6 / 1120.6 Heparin Sodium/Dextrose 25,000 292.6 / 292.6 units In 500 ml @ 1,400 UNITS/ HR 28 mls/hr IV .[id number] [facility] Rx #:[id number] Sodium Chloride 0.9% 1,000 ml @ 828 / 828 200 mls/hr IV .Q5H ONE Rx#: [id number] Oral 200 / 200 Output: Urine 350 / 350 Other: Weight 100.5 kg Weight Measurement Method Built in [facility] Diagnostic Findings EKG performed on presentation revealed sinus tachycardia at 113 bpm, no significant repolarization abnormalities. Cardiogram performed mild concentric left ventricular hypertrophy, normal LV wall motion, LVEF in the range of 60 to 65%, mild aortic valve sclerosis without stenosis, there is no LV mural thrombus
[2023-03-09] MEDS: ACETAMINOPHEN 325 MG TAB PO PRN (15:53)
[2023-03-09] MEDS ORDERED: ATORVASTATIN 10 MG TAB PO SCH (21:00)
[2023-03-10 06:36] LABS: Basophils # (auto) 0.02 K/uL (0.00-0.20); Basophils % (auto) 0.2 %; Eosinophils # (auto) 0.11 K/uL (0.00-0.50); Eosinophils % (auto) 1.2 %; Hemoglobin 13.8 g/dl (14.0-18.0); Immature Granulocytes # (auto) 0.03 K/uL (0.01-0.20); Immature Granulocytes % (auto) 0.3 %; Lymphocytes % (auto) 14.7 %; Mean Corpuscular Hemoglobin 31.7 pg (25.0-34.0); Mean Corpuscular Hgb Conc 34.5 g/dL (32.0-36.0); Mean Corpuscular Volume 91.7 fL (80.0-100.0); Mean Platelet Volume 11.4 fL (9.4-12.4); Monocytes # (auto) 1.18 K/uL (0.11-0.59); Monocytes % (auto) 12.4 %; Neutrophils # (auto) 6.79 K/uL (1.40-6.50); Neutrophils % (auto) 71.2 %; Platelet Count 167 K/uL (130-400); RDW Coefficient of Variation 15.9 % (11.5-14.5); RDW Standard Deviation 53.7 fL (36.4-46.3); Red Blood Count 4.36 M/uL (4.70-6.10); White Blood Count 9.53 K/ul (4.8-10.8)
[2023-03-10 06:56] LABS: Creatinine Clr Calc Pharmacy 89.2 ml/min
[2023-03-10] MEDS: ASPIRIN 81 MG ECTAB PO SCH (08:15)
[2023-03-10] MEDS: PANTOprazole 40 MG TAB PO SCH ×2 (08:15→20:46)
[2023-03-10] MEDS: buPROPion SR 150 MG TABCR PO SCH ×2 (08:15→20:46)
[2023-03-10] MEDS: ATORVASTATIN 40 MG TAB PO SCH (08:15)
[2023-03-10] MEDS: CYANOCOBALAMIN (B-12) 500 MCG TABLET PO SCH (08:16)
[2023-03-10] MEDS: ENOXAPARIN 100 MG/1ML SYR SQ SCH ×2 (08:16→20:45)
[2023-03-10] MEDS: PREGABALIN 100 MG CAP PO SCH ×2 (08:17→20:47)
[2023-03-10 10:02] LABS: Albumin Globulin Ratio 1.4 (0.9-2); Albumin Level 3.2 gm/dl (3.4-5.0); BUN Creatinine Ratio 22.2 (10-20); Bilirubin,Total 0.5 mg/dl (0.2-1.0); Calcium 8.6 mg/dl (8.6-10.3); Est GFR (African American) 89.7 ml/min; Est GFR (Non-African American) 77.4 ml/min; Globulin 2.3 gm/dl (2.5-4.0); Potassium 4.3 mmol/L (3.5-5.1); Total Protein 5.5 gm/dl (6.0-8.3)
[2023-03-10 10:08] LABS: Troponin I High Sensitivity 4.8 pg/ml (0-20)
--- NOTE | 2023-03-10 11:48 | Hospitalist Progress Note ---
Date of Service March 10, 2023 Assessment & Plan (1) Chest pain: (2) Thrombus of aorta: Plan: Patient presented to the ED with complaint of chest pain. Patient x-ray personally reviewed; no acute findings CTA chest reviewed and discussed with radiologist Dr. Soto; no PE. Thrombus in proximal descending thoracic aorta measuring 12 mm into 6 mm EKG personally reviewed; sinus tachycardia. No significant ST or T wave changes High sensitive troponin negative Respiratory viral panel negative Lower extremity venous duplex no DVT Echocardiogram shows EF of 60 to 65%; left ventricular wall motion is normal. [place] [facility] [place] suspect that the nonocclusive aortic thrombus in proximal/descending thoracic aorta is from a ruptured atherosclerotic plaque that developed a nidus of thrombus formation. Recommended start treating with aspirin 81 mg, high-dose statin and Eliquis 5 mg twice daily. If patient develops any embolic complications; recommend to reach out to vascular surgery for possible transfer. Patient is started on aspirin 81 mg, Lipitor 80 mg. Anticoagulation with Lovenox for the time being. Eliquis prescription sent; needs prior authorization. Case management on board. He will need follow-up CTA chest in 3 months. Chronic conditions COPDcontinue home inhalers, not in exacerbation GERDcontinue Protonix Mood disordercontinue bupropion Dispositionpatient admitted with thrombus in the aorta. Needs close monitoring for any immobilization. Eliquis prescription has been sent; will need prior authorization. Case management on board. Possible discharge in a.m. Time spent evaluating patient, direct bedside care, chart review, placing orders, interpretation of diagnostic studies, discussion with consultants, patient, and family members, as well as other required patient management activities is 55 minutes Please note the above document was generated using voice recognition software. It may contain grammatical, syntax or spelling errors. Any formal questions or concerns about the content, text or information contained within the body of this dictation should be directly addressed to the provider for clarification Admission and Anticipated Discharge Date Admission Date: March 09, 2023 Subjective Patient seen and examined at bedside. Is comfortably lying in the bed; not in distress. He reports that the chest pain has improved. Telemetry shows sinus rhythm; no arrhythmia. Review of Systems Review of Systems: All systems reviewed & are unremarkable except as noted in Subjective Physical Exam Physical Exam: Constitutional: WD/WN, vitals as above, NAD, sitting up in bed, pleasant, conversing easily Respiratory: Bilateral vesicular breath sound. Cardiovascular: RRR, no murmur, no edema Vessels: no JVD or carotid bruit Chest: No tenderness appreciated Abdomen: normal bowel sounds, soft, nontender, no hepatosplenomegaly Musculoskeletal: no cyanosis or clubbing, extremities motor strength 5/5 Skin: no rashes, warm and dry normal turgor Neurologic: PERRL, EOMI, accommodation nl, no face palsy, no dysarthria CN's II- XI intact bilaterally and moves all extremities Psychiatric: A+Ox3, euthymic affect Results & Data Results & Data Vital Signs (Past 12 Hours) Vital Signs Temp Pulse Pulse Resp BP Pulse Ox O2 Del Method 03/10/23 10:47 94 Room Air 03/10/23 08:55 Nasal Cannula 03/10/23 08:54 83 03/10/23 07:54 36.9 C 79 18 123/74 93 Room Air 03/10/23 03:42 37.4 C 70 20 118/69 94 Nasal Cannula O2 Flow Rate 03/10/23 10:47 03/10/23 08:55 2 03/10/23 08:54 03/10/23 07:54 03/10/23 03:42 1.5
[2023-03-10] MEDS: ACETAMINOPHEN 325 MG TAB PO PRN (15:19)
[2023-03-11] MEDS ORDERED: guaiFENesin/CODEINE 100MG/10MG 5ML UDC PO PRN (01:57)
[2023-03-11] MEDS ORDERED: MoRPHine SULFATE 4 MG/ML 1 ML CARP\\VIAL IV STA (02:07)
[2023-03-11] MEDS: MECLIZINE 12.5 MG TAB PO PRN (02:20)
[2023-03-11] MEDS: oxyCODONE HCL IR 5 MG TAB (IMMEDIATE RELEASE) PO PRN (05:15)
[2023-03-11] MEDS ORDERED: OPTIRAY 320 125ml IV ONE (05:26)
[2023-03-11] MEDS: SODIUM CHLORIDE 0.9% 1,000 ML IV SCH ×2 (05:38→16:36)
[2023-03-11 06:27] LABS: Basophils # (auto) 0.03 K/uL (0.00-0.20); Basophils % (auto) 0.4 %; Eosinophils # (auto) 0.07 K/uL (0.00-0.50); Hemoglobin 14.1 g/dl (14.0-18.0); Immature Granulocytes # (auto) 0.02 K/uL (0.01-0.20); Immature Granulocytes % (auto) 0.3 %; Lymphocytes # (auto) 1.58 K/uL (1.20-3.40); Lymphocytes % (auto) 21.5 %; Mean Corpuscular Hemoglobin 31.1 pg (25.0-34.0); Mean Corpuscular Hgb Conc 34.4 g/dL (32.0-36.0); Mean Corpuscular Volume 90.5 fL (80.0-100.0); Mean Platelet Volume 11.2 fL (9.4-12.4); Monocytes % (auto) 13.6 %; Neutrophils # (auto) 4.64 K/uL (1.40-6.50); Neutrophils % (auto) 63.2 %; Platelet Count 176 K/uL (130-400); RDW Coefficient of Variation 15.5 % (11.5-14.5); RDW Standard Deviation 51.1 fL (36.4-46.3); Red Blood Count 4.53 M/uL (4.70-6.10); White Blood Count 7.34 K/ul (4.8-10.8)
[2023-03-11 06:40] LABS: BUN Creatinine Ratio 20.7 (10-20); Calcium 8.8 mg/dl (8.6-10.3); Creatinine Clr Calc Pharmacy 67.6 ml/min; Est GFR (African American) 78.1 ml/min; Est GFR (Non-African American) 67.4 ml/min; Potassium 4.3 mmol/L (3.5-5.1)
--- NOTE | 2023-03-11 07:18 | CT Scan Report ---
HEAD CT NONCONTRAST CT DOSE: HISTORY: dizziness. on lovenox therapeutic dose TECHNIQUE: Multiaxial CT images of the head were performed without the use of intravenous contrast. A utomated exposure control was utilized for this study. A dose lowering technique was utilized adheri ng to the principles of ALARA. Comparison: Head CT 06/26/2020. Findings: The paranasal sinuses and mastoid air cells are clear. The calvarium and skull base are int act. There is no mass, hematoma, midline shift, acute infarct. White matter hypodensity is nonspecifi c but suggestive of microvascular ischemic change. The ventricles and sulci demonstrate mild age-rela raya involutional changes. Mild motion artifact. Impression: Mild motion artifact. No definite acute intracranial abnormality. ACT 112: Negative or not required by law. Electronically signed by: Asim Peck M.D. 03/11/2023 7:16 AM
--- NOTE | 2023-03-11 07:25 | CT Scan Report ---
HEAD & NECK CTA HISTORY: dizziness. thrombus in proximal descending aorta TECHNIQUE: Multiaxial CT images of the head were performed following the intravenous administration o f contrast to evaluate the major cerebral vessels. Multiaxial CT images of the neck were also perform ed following the intravenous administration of contrast to evaluate the major cervical vessels. 3D/FL P images were also obtained. Sagittal and coronal reformats were reviewed. A dose lowering technique was utilized adhering to the principles of ALARA. COMPARISON: Head CT 03/11/2023. FINDINGS: There is no mass, hematoma, midline shift, or acute infarct. Visualized intracranial internal carotid arteries, distal vertebral arteries, and basilar artery are widely patent. There is no significant s tenosis, occlusion, or aneurysm seen within the bilateral ACAs, MCAs, or instrumentation fitter. Mild calcified plaque within the bilateral carotid siphons.. The major dural venous sinuses are patent. The aortic arch and proximal great vessels are widely patent. There is no significant stenosis, occ lusion, or dissection identified within the bilateral common carotid, internal carotid, or vertebral arteries. Mild emphysema. Mild calcified plaque within the bilateral carotid bifurcations. IMPRESSION: 1. No significant stenosis, occlusion, or aneurysm within the [place]. 2. No significant stenosis, occlusion, or dissection identified within the carotid or vertebral arter ies. ACT 112: Negative or not required by law. Electronically signed by: Asim Peck M.D. 03/11/2023 7:22 AM
--- NOTE | 2023-03-11 07:25 | CT Scan Report ---
HEAD & NECK CTA HISTORY: dizziness. thrombus in proximal descending aorta TECHNIQUE: Multiaxial CT images of the head were performed following the intravenous administration o f contrast to evaluate the major cerebral vessels. Multiaxial CT images of the neck were also perform ed following the intravenous administration of contrast to evaluate the major cervical vessels. 3D/OH P images were also obtained. Sagittal and coronal reformats were reviewed. A dose lowering technique was utilized adhering to the principles of ALARA. COMPARISON: Head CT 03/11/2023. FINDINGS: There is no mass, hematoma, midline shift, or acute infarct. Visualized intracranial internal carotid arteries, distal vertebral arteries, and basilar artery are widely patent. 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 Mild calcified plaque within the bilateral carotid siphons.. The major dural venous sinuses are patent. The aortic arch and proximal great vessels are widely patent. There is no significant stenosis, occ lusion, or dissection identified within the bilateral common carotid, internal carotid, or vertebral arteries. Mild emphysema. Mild calcified plaque within the bilateral carotid bifurcations. IMPRESSION: 1. No significant stenosis, occlusion, or aneurysm within the [place]. 2. No significant stenosis, occlusion, or dissection identified within the carotid or vertebral arter ies. ACT 112: Negative or not required by law. Electronically signed by: Asim Peck M.D. 03/11/2023 7:22 AM
[2023-03-11] MEDS: PREGABALIN 100 MG CAP PO SCH ×2 (08:36→19:58)
[2023-03-11] MEDS: PANTOprazole 40 MG TAB PO SCH ×2 (08:36→19:58)
[2023-03-11] MEDS: ASPIRIN 81 MG ECTAB PO SCH (08:36)
[2023-03-11] MEDS: buPROPion SR 150 MG TABCR PO SCH ×2 (08:36→19:58)
[2023-03-11] MEDS: ATORVASTATIN 40 MG TAB PO SCH (08:36)
[2023-03-11] MEDS: CYANOCOBALAMIN (B-12) 500 MCG TABLET PO SCH (08:36)
[2023-03-11] MEDS: APIXABAN 5 MG TABLET PO SCH ×2 (09:10→19:58)
--- NOTE | 2023-03-11 10:56 | CT Scan Report ---
ABDOMEN AND PELVIS CT WITH IV CONTRAST CT DOSE: 1363.61 mGy.cm HISTORY: periumbilical pain, rule out ischemic colitis TECHNIQUE: Multiaxial CT images of the abdomen and pelvis were performed following the use of intrave nous contrast. A dose lowering technique was utilized adhering to the principles of ALARA. COMPARISON STUDY: Abdomen and pelvis CT 03/02/2021. FINDINGS: Stable 4 mm nodule within the base of the left lower lobe on image 41 and a stable 4 mm nod ule within the right lower lobe on image 36. Mild interstitial thickening at the lung bases which is likely chronic. No pneumoperitoneum. No pneumatosis. Prior internal fixation of an old, healed left f emoral fracture. There are old compression deformities within the lumbar spine. No acute fractures id entified. Coronary artery calcifications are again noted. Small amount of subcutaneous gas within the right mid abdominal wall is likely due to prior medication injection. There is a tiny fat-containing left inguinal hernia. The liver, gallbladder, pancreas, spleen, and adrenal glands are unremarkable. There are few subcentimeter hypodense lesion within the right kidney. These are to be too small to c haracterize but statistically represent cysts. These are similar to the prior study. Normal left kidn ey. No hydronephrosis. The main pleural vein is patent. Severe calcified plaque within the abdominal aorta and iliac arteries without significant stenosis or aneurysm. The major mesenteric vessels appea r patent. No retroperitoneal or pelvic lymphadenopathy. No pelvic free fluid. The bladder is decompre ssed. This may account for the bladder wall thickening. Moderate fecal retention. No bowel wall thick ening or obstruction. Normal appendix. Gastric wall thickening is likely due to underdistention. This remains unchanged. IMPRESSION: 1. No bowel obstruction. 2. Normal appendix. 3. Questionable gastric wall thickening is likely due to underdistention. This remains unchanged. A g astritis also remains within the differential diagnosis. 4. Additional findings as described above. ACT 112: Negative or not required by law. Electronically signed by: Asim Peck M.D. 03/11/2023 10:54 AM
[2023-03-11] MEDS ORDERED: MAGNESIUM HYDROXIDE SUSP 30 ML UDC PO ONE (11:07)
[2023-03-11] MEDS: POLYETHYLENE (MIRALAX) 17 GM PACK PO SCH ×2 (11:19→13:38)
--- NOTE | 2023-03-11 12:16 | Hospitalist Progress Note ---
Date of Service March 11, 2023 Assessment & Plan (1) Chest pain: (2) Thrombus of aorta: Plan: Patient presented to the ED with complaint of chest pain. Patient x-ray personally reviewed; no acute findings CTA chest reviewed and discussed with radiologist Dr. Soto; no PE. Thrombus in proximal descending thoracic aorta measuring 12 mm into 6 mm EKG personally reviewed; sinus tachycardia. No significant ST or T wave changes High sensitive troponin negative Respiratory viral panel negative Lower extremity venous duplex no DVT Echocardiogram shows EF of 60 to 65%; left ventricular wall motion is normal. Discussed with Dr. Alba vascular surgery at [facility] on March 09; suspect that the nonocclusive aortic thrombus in proximal/descending thoracic aorta is from a ruptured atherosclerotic plaque that developed a nidus of thrombus formation. Recommended start treating with aspirin 81 mg, high-dose statin and Eliquis 5 mg twice daily. If patient develops any embolic complications; recommend to reach out to vascular surgery for possible transfer. Patient is started on aspirin 81 mg, Lipitor 80 mg. Anticoagulation with Lovenox for the time being; switched over to Eliquis. He will need follow-up CTA chest in 3 months. Headache; Patient reported headache on the night of 03/10/2023. CT head without contrast did not show any acute abnormality CTA head and neck did not show any acute findings as well Tylenol as needed Abdominal pain, ischemic colitis ruled out Patient reported severe abdominal pain on 03/11/2023 CT abdomen pelvis with IV contrast was done which did not show any findings Suspicion of gastritis. Patient is already on Protonix Milk of magnesia, Protonix Chronic conditions COPDcontinue home inhalers, not in exacerbation GERDcontinue Protonix Mood disordercontinue bupropion Dispositionpatient admitted with thrombus in the aorta. Needs close monitoring for any embolization. Patient reports severe abdominal pain. Will continue to monitor inpatient. Possible DC in a.m. if clinical status remains stable. Time spent evaluating patient, direct bedside care, chart review, placing orders, interpretation of diagnostic studies, discussion with consultants, patient, and family members, as well as other required patient management activities is 55 minutes Please note the above document was generated using voice recognition software. It may contain grammatical, syntax or spelling errors. Any formal questions or concerns about the content, text or information contained within the body of this dictation should be directly addressed to the provider for clarification Admission and Anticipated Discharge Date Admission Date: March 09, 2023 Subjective Patient reports severe periumbilical abdominal pain. He reports headache as well; underwent CTA head and neck overnight. Vitals remained stable. Is saturating well on room air. Review of Systems Review of Systems: All systems reviewed & are unremarkable except as noted in Subjective Physical Exam Physical Exam: Constitutional: WD/WN, vitals as above, NAD, sitting up in bed, pleasant, conversing easily Respiratory: Bilateral vesicular breath sound. Cardiovascular: RRR, no murmur, no edema Vessels: no JVD or carotid bruit Chest: No tenderness appreciated Abdomen: Tenderness in periumbilical region. Musculoskeletal: no cyanosis or clubbing, extremities motor strength 5/5 Skin: no rashes, warm and dry normal turgor Neurologic: PERRL, EOMI, accommodation nl, no face palsy, no dysarthria CN's II- XI intact bilaterally and moves all extremities Psychiatric: A+Ox3, euthymic affect Results & Data Results & Data Vital Signs (Past 12 Hours) Vital Signs Temp Pulse Pulse Pulse Pulse Resp Resp 03/11/23 11:53 37.1 C 82 18 03/11/23 08:54 03/11/23 08:53 72 03/11/23 08:12 94 H 91 H 18 03/11/23 08:00 37.3 C 80 18 03/11/23 04:53 37.2 C 74 18 03/11/23 01:48 37.1 C 89 18 Resp BP Pulse Ox Pulse Ox Pulse Ox O2 Del Method O2 Flow Rate 03/11/23 11:53 112/69 95 Room Air 03/11/23 08:54 Room Air 03/11/23 08:53 03/11/23 08:12 18 93 95 03/11/23 08:00 119/73 94 Room Air 03/11/23 04:53 112/58 L 95 Nasal Cannula 2 03/11/23 01:48 106/91 94 Nasal Cannula 2
[2023-03-11] MEDS: ACETAMINOPHEN 325 MG TAB PO PRN (19:57)
[2023-03-12 06:32] LABS: Basophils # (auto) 0.02 K/uL (0.00-0.20); Basophils % (auto) 0.3 %; Eosinophils % (auto) 1.3 %; Hematocrit (blood only) 43.1 % (42.0-52.0); Hemoglobin 14.9 g/dl (14.0-18.0); Immature Granulocytes # (auto) 0.02 K/uL (0.01-0.20); Immature Granulocytes % (auto) 0.3 %; Lymphocytes # (auto) 1.14 K/uL (1.20-3.40); Lymphocytes % (auto) 14.7 %; Mean Corpuscular Hemoglobin 31.7 pg (25.0-34.0); Mean Corpuscular Hgb Conc 34.6 g/dL (32.0-36.0); Mean Corpuscular Volume 91.7 fL (80.0-100.0); Mean Platelet Volume 11.3 fL (9.4-12.4); Monocytes # (auto) 1.19 K/uL (0.11-0.59); Monocytes % (auto) 15.4 %; Neutrophils # (auto) 5.27 K/uL (1.40-6.50); Platelet Count 176 K/uL (130-400); RDW Coefficient of Variation 15.6 % (11.5-14.5); RDW Standard Deviation 52.7 fL (36.4-46.3); White Blood Count 7.74 K/ul (4.8-10.8)
[2023-03-12 07:00] LABS: BUN Creatinine Ratio 20.4 (10-20); Calcium 8.9 mg/dl (8.6-10.3); Creatinine Clr Calc Pharmacy 73.4 ml/min; Est GFR (African American) 85.5 ml/min; Est GFR (Non-African American) 73.8 ml/min; Potassium 4.6 mmol/L (3.5-5.1)
[2023-03-12] MEDS: ASPIRIN 81 MG ECTAB PO SCH (08:06)
[2023-03-12] MEDS: ATORVASTATIN 40 MG TAB PO SCH (08:06)
[2023-03-12] MEDS: PREGABALIN 100 MG CAP PO SCH (08:06)
[2023-03-12] MEDS: CYANOCOBALAMIN (B-12) 500 MCG TABLET PO SCH (08:06)
[2023-03-12] MEDS: PANTOprazole 40 MG TAB PO SCH (08:07)
[2023-03-12] MEDS: MECLIZINE 12.5 MG TAB PO PRN (08:07)
[2023-03-12] MEDS: APIXABAN 5 MG TABLET PO SCH (08:07)
[2023-03-12] MEDS: POLYETHYLENE (MIRALAX) 17 GM PACK PO SCH (08:07)
[2023-03-12] MEDS: buPROPion SR 150 MG TABCR PO SCH (08:07)
--- NOTE | 2023-03-12 11:31 | Discharge Summary ---
Date of Service March 12, 2023 Admission HPI Per Admitting Provider History obtained from patient and records. Medical history significant for COPD, history of PE status post Coumadin, ongoing tobacco abuse, TAYLOR, histoplasmosis as per records, hyperlipidemia, prediabetes, anxiety/mood disorder, ongoing tobacco abuse. Last confinement October 2021 for COPD exacerbation. Recent ER visit 10 days ago for cough, SOB, asthma attack symptoms. Patient found to be RSV positive. Sick contact at home. Symptoms resolved with supportive management at home. Patient experienced pleuritic chest pain while watching TV associated with shortness of breath, no unusual cough symptoms. Denies fluid retention. Patient consulted ER for evaluation. O2 sats 80s, lowest SBP of 80s upon arrival at the ER. 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 Admission Exam Per Admitting Provider GENERAL: uncomfortable, obese, anxious, episodic tachypnea SKIN: Normal color, warm HEENT: Partial alopecia, bespectacled, pink palpebral conjunctivae, no ptosis, dry buccal mucosa, nasal cannula in place NECK : Supple, no tenderness CHEST : Decreased breath sounds, occasional scattered wheezes, no tenderness HEART : RRR, no obvious murmurs ABDOMEN: Some distention, nontender EXTREMITIES : No LE swelling/tenderness, no other conspicuous deformities noted NEUROLOGIC : Coherent, no facial asymmetry, no other gross focality Principal Diagnosis Aortic thrombus Chest pain likely MSK origin Discharge Exam Constitutional: WD/WN, vitals as above, NAD, sitting up in bed, pleasant, conversing easily Respiratory: Bilateral vesicular breath sound. Cardiovascular: RRR, no murmur, no edema Vessels: no JVD or carotid bruit Chest: No tenderness appreciated Abdomen: Tenderness in periumbilical region. Musculoskeletal: no cyanosis or clubbing, extremities motor strength 5/5 Skin: no rashes, warm and dry normal turgor Neurologic: PERRL, EOMI, accommodation nl, no face palsy, no dysarthria CN's II- XI intact bilaterally and moves all extremities Psychiatric: A+Ox3, euthymic affect Discharge Data Allergies Allergy/AdvReac Type Severity Reaction Status Date / Time fluticasone furoate Allergy Intermediate lightheadedness Verified 03/08/23 21:30 [From Trelegy Ellipta] and nausea umeclidinium Allergy Intermediate lightheadedness Verified 03/08/23 21:30 [From Trelegy Ellipta] and nausea vilanterol Allergy Intermediate lightheadedness Verified 03/08/23 21:30 [From Trelegy Ellipta] and nausea Consultations 03/09/23 03:42 Consult Vascular Surgery Routine 03/09/23 08:10 Consult Cardiology Routine Ordered Studies 03/08/23 20:54 CT angio chest dissec wo/w con Stat 03/08/23 23:40 US venous doppler LE BI Routine 03/11/23 05:00 CT head/brain wo con Stat CTA head w con [CT angio head w con] Stat 03/11/23 05:01 CTA neck with con [CT angio neck with con] Stat 03/11/23 09:19 CT abd pelvis IV con only Stat Hospital Course (1) Chest pain: (2) Thrombus of aorta: Patient presented to the ED with complaint of chest pain. Patient x-ray personally reviewed; no acute findings CTA chest reviewed and discussed with radiologist Dr. Soto; no PE. Thrombus in proximal descending thoracic aorta measuring 12 mm into 6 mm EKG personally reviewed; sinus tachycardia. No significant ST or T wave changes High sensitive troponin negative Respiratory viral panel negative Lower extremity venous duplex no DVT Echocardiogram shows EF of 60 to 65%; left ventricular wall motion is normal. D[place] with Dr. Alba [place] [facility] [place]; suspect that the nonocclusive aortic thrombus in proximal/descending thoracic aorta is from a ruptured atherosclerotic plaque that developed a nidus of thrombus formation. Recommended start treating with aspirin 81 mg, high-dose statin and Eliquis 5 mg twice daily. If patient develops any embolic complications; recommend to reach out to vascular surgery for possible transfer. He will need follow-up CTA chest in 3 months to evaluate the thrombus Abdominal pain, ischemic colitis ruled out Patient reported severe abdominal pain on 03/11/2023 CT abdomen pelvis with IV contrast was done which did not show any findings Suspicion of gastritis. Patient is already on Protonix Milk of magnesia, Protonix Please note the above document was generated using voice recognition software. It may contain grammatical, syntax or spelling errors. Any formal questions or concerns about the content, text or information contained within the body of this dictation should be directly addressed to the provider for clarification Total Time Total Time Spent Total Time Spent (In Minutes): 45 Total Time Includes: Examination of the Patient, Discharge Planning, Medication Reconciliation, Communication With Other Providers and Other Discharge Plan Discharge Items Patient Disposition: Home - Self-Care Reason For Visit: AF Discharge Diagnosis: Chest pain, ACS rule out Aortic thrombus Activity: Resume your previous activity Non-emergency contact: Primary Care Provider Call non-emergency contact if: you have any medication questions and your symptoms worsen Follow-up/Referrals: Ajit Moreno MD [Primary Care Provider] - (Date & Time 03/16/2023 12:40 PM Provider Ajit Moreno MD [facility] ) Diet: Regular Addtl Attending Provider Instructions: You were admitted to the hospital due to chest pain. CTA of the chest was done which showed clot in one of the big vessels coming from the heart(in proximal descending thoracic aorta). Vascular surgery from [facility] evaluated your images; they recommend that you are started on following medication: 1) Eliquis 5 mg twice a day. This is a blood thinner. You should be on it for 3 months. 2) aspirin 81 mg once a day 3) Lipitor 80 mg once a day You should have repeat CTA chest in 3 months to follow-up on the clot size. Please continue to take your other medication as prescribed. Please discontinue your previous dose of Lipitor as you are started on a higher dose. An appointment will be set up with your primary care doctor for next week. Pending Studies at Discharge: No Stand-Alone Forms: My [email or web address], Smoking Cessation Medications and DC Order Prescriptions: New Eliquis 5 mg tablet 5 mg PO BID Qty: 60 0RF atorvastatin [Lipitor] 80 mg tablet 80 mg PO DAILY Qty: 30 0RF aspirin 81 mg Tablet,Delayed Release (Dr/Ec) 81 mg PO QAM Qty: 30 0RF Continued pregabalin [Lyrica] 100 mg Capsule 100 mg PO BID pantoprazole [Protonix] 40 mg tablet,delayed release (DR/EC) 40 mg PO BID 30 Days Qty: 60 2RF meclizine 12.5 mg tablet 12.5 mg PO TID PRN (Reason: Dizziness) cyanocobalamin (vitamin B-12) [Vitamin B-12] 1,000 mcg Tablet 1,000 mcg PO DAILY prednisone 20 mg tablet 40 mg PO QAM PRN (Reason: RESCUE KIT) Rx Instructions: RESCUE KIT, TAKE FOR 5 DAYS. bupropion HCl [Wellbutrin SR] 150 mg Tablet Sustained-Release 12 Hr 150 mg PO BID ondansetron 8 mg Tablet,Disintegrating 8 mg PO Q8H PRN (Reason: Nausea) clobetasol 0.05 % Cream 1 applic TOPICAL BID PRN (Reason: Rash) triamcinolone acetonide 0.1 % Cream 1 applic TOPICAL BID PRN (Reason: Rash) levalbuterol HCl 1.25 mg/3 mL solution for nebulization 1.25 mg INHALATION Q4H PRN (Reason: Wheezing) Anoro Ellipta 62.5-25 mcg/actuation blister with device 1 inh INHALATION DAILY albuterol sulfate 90 mcg/actuation HFA aerosol inhaler 2 puff INHALATION Q4H PRN (Reason: Shortness Of Breath Or Wheezing) Discontinued atorvastatin [Lipitor] 10 mg Tablet 10 mg PO HS Discharge Orders: Discharge Order (Routine); Ordered 03/12/23 Ordered By: Enzo Hobson/Other Patient Handouts: Prediabetes, 5 Steps for Eating Healthier Admission Data Admit Date/Time: 03/09/23 00:52 Attending Provider: Enzo Smith Admit Provider: Joselito Granda Primary Care Provider: Ajit Moreno Other Providers: Christiano Padilla Other Interventions: Discharge Summary Assessment (RN) Last Done: 03/12/23 09:49
== END 2023-03-12 12:17 | disposition home or self-care (01) | DRG 300 ==
LOC: ED 19:56 → EDINP 03-09 00:52 → SUATTDRO 03-09 00:52 → 2E 03-09 01:48

== ENCOUNTER 2023-04-04 14:07 | Inpatient (IN) ==
--- NOTE | 2023-04-04 14:23 | Emergency Department Note ---
Impression & Plan COPD exacerbation, Chest pain, Abdominal pain, Headache, Dizziness ED Provider Note Provider: Enrique Crawford MD DATE OF SERVICE: 04/04/2023 CHIEF COMPLAINT: Short of breath, unsteady/dizzy, chest pain intermittent HISTORY OF PRESENT ILLNESS: Patient is a 67-year-old gentleman past medical history of COPD, GERD, hyperlipidemia, and aortic thrombus recently hospitalized here about 3 weeks ago presenting today via ambulance from his home. States several days after his discharge a couple weeks ago he began to experience some shortness of breath and intermittent dizziness intermittent mid chest discomfort. Little bit of diarrhea but denies significant nausea or vomiting. Maybe a bit of mid abdominal discomfort at times. Intermittent in nature. Denies falling. Some headache at times. No fevers reported. Has been taking his medications including his blood thinner, Eliquis. States today he just cannot function like this at home and thus called the ambulance. No sick contacts reported. Some cough at times but denies significant sore throat. PAST MEDICAL HISTORY: As noted above MEDICATIONS: Reviewed home medication list SOCIAL HISTORY: Former smoker PHYSICAL EXAM: GENERAL: alert and oriented in no acute distress on stretcher Head: normocephalic and atraumatic EYES: No injection, discharge or icterus. NECK: Trachea midline. ENT: Mucous membranes pink and moist. LUNGS: Airway patent. No retractions. Breath sounds clear but poor air movement HEART: Regular rate and rhythm. No chest wall tenderness ABDOMEN: Soft and non-tender, without guarding or rebound. SKIN: Acyanotic, warm, dry, without rashes EXTREMITIES: Without swelling, tenderness or deformity NEUROLOGICAL: No focal deficits. No aphasia. No facial droop or slurred speech. Ambulatory. EK beats per min. Normal sinus rhythm. No PVC or PAC. No acute ST segment elevation or depression with a QTc of 418. CONTINUOUS CARDIAC MONITORING: was ordered and showed a heart rate of 60s-70s bpm in NSR Patient's laboratory studies and imaging reviewed. Differential includes Cardiac ischemia, aortic dissection, pulmonary embolism, pneumothorax, pneumonia, pericarditis, myocarditis, esophageal rupture, GERD, cholecystitis, pancreatitis, musculoskeletal, as well as other pathologies. IMPRESSION/MEDICAL DECISION MAKING: Patient is well-appearing may be slightly anxious. Mildly hypertensive but not tachycardic or hypoxic upon arrival. Reviewed prior medical record and discharge summary indicating he was hospitalized with a small aortic thrombus at the beginning of the month. Is on Eliquis at this time. No syncope reported. No focal numbness or weakness but generalized with dizziness. Given his anticoagulated status we will plan CT of the head to exclude any intra cranial bleed. Will repeat CTA of the chest as well as abdomen pelvis given reports a little discomfort here at times. Will look to ensure no worsening or other dissection appearing at this point. Patient does not appear unstable. Blood work here without significant leukocytosis and very minimal borderline anemia. Normal platelet count. No significant evidence of electrolyte dysfunction or renal dysfunction today. Respiratory viral panel negative. CT of the head, chest angiogram, and chest abdomen pelvis angiogram without significant abnormalities noted in particular no significant aortic abnormalities noted. Evidence of some emphysema and the basilar pulmonary nodule noted. Patient not hypoxic. Did trial albuterol neb to see if this did help with breathing complaint. (Allergy to Ellipta in chart) Patient is seemingly a bit more wheezy on reexamination than intitially. Will give some Solu-Medrol here as well as some Pepcid and Protonix he does report some stomach upset. Question of this could represent gastritis. Imaging otherwise reassuring today. Blood work reassuring. Given his complaints and difficulty functioning at home, will have the hospitalist team eval for observation. DIAGNOSIS: COPD exacerbation, dizzy, headache, short of breath, abdominal pain DISPOSITION: Hospitalist will evaluate Patient was agreeable with this plan. Past Med/Surg History Medical History Acute respiratory failure with hypoxemia Chronic respiratory failure On oxygen at night in the past - but no longer needs per patient Hx of migraines Sleep apnea No device History of COVID-19 2019, moderate symptoms > resolved 2020, mild symptoms > resolved Post-nasal drip Chronic - stable HLD (hyperlipidemia) TAYLOR (obstructive sleep apnea) Cannot tolerate device Anxiety Pneumothorax Hx- complication from pain injection- resolved COPD, moderate Breathing stable Neuropathy GERD (gastroesophageal reflux disease) Well controlled and stable Histoplasmosis 2002- treated Diaphragmatic hernia Thoracic spinal stenosis Surgical History History of esophagogastroduodenoscopy (EGD) Hx of colonoscopy History of open reduction and internal fixation (ORIF) procedure right shoulder History of total replacement of left shoulder joint History of sinus surgery History of placement of chest tube History of hand surgery Left femoral shaft fracture Dutch placed H/O total hip arthroplasty left side H/O elbow surgery H/O exploratory thoracotomy "Left thoracotomy wedge biopsy of left upper lobe with excision of lesion or nodule & frozen section 2002" H/O hernia repair "[facility] incarcerated supraumbilical hernia repair open no mesh 02/17/01" Family History Father Heart disease Hypertension Brother Cancer Hypertension Stroke Heart disease Mother Cancer Other Leukemia No family history of bleeding disorder Non-Hodgkin lymphoma Denies family history of Hearing loss Asthma Social History Smoking Status: Never smoker Tobacco Type: Cigarettes and Cigars Age Started Using Tobacco: 11; packs per day: 1; Cigarettes Per Day: 10 cigs /day; Second Hand Exposure: No; Do You Dip or Chew Tobacco: No; Hx Alcohol Use: No Hx Substance Use: No Preferred Language: Puerto Rican Communication Ability: Effective Chocolate Dipper Required: No Beliefs That Will Affect Care: None marital status: Current Living Situation: Spouse current occupational status: unemployed Feels Safe at Home: Yes Assistive Devices: Glasses and Oxygen - at Night Allergies Allergies Allergy/AdvReac Type Severity Reaction Status Date / Time fluticasone furoate Allergy Intermediate lightheadedness Verified 03/08/23 21:30 [From Trelegy Ellipta] and nausea umeclidinium Allergy Intermediate lightheadedness Verified 03/08/23 21:30 [From Trelegy Ellipta] and nausea vilanterol Allergy Intermediate lightheadedness Verified 03/08/23 21:30 [From Trelegy Ellipta] and nausea Home Meds Home Medications Medication Instructions Recorded Confirmed pregabalin 100 mg capsule (Lyrica) 100 mg PO BID 10/16/17 04/04/23 meclizine 12.5 mg tablet 12.5 mg PO TID PRN Dizziness 06/28/21 04/04/23 prednisone 20 mg tablet 40 mg PO QAM PRN RESCUE KIT 04/05/22 04/04/23 bupropion HCl 150 mg tablet,12 hr 150 mg PO BID 04/07/22 04/04/23 sustained-release (Wellbutrin SR) ondansetron 8 mg disintegrating 8 mg PO Q8H PRN Nausea 04/07/22 04/04/23 tablet albuterol sulfate 90 mcg/actuation 2 puff inhalation Q4H PRN 12/29/22 04/04/23 aerosol inhaler Shortness Of Breath Or Wheezing clobetasol 0.05 % topical cream 1 applic topical BID PRN Rash 12/29/22 04/04/23 levalbuterol HCl 1.25 mg/3 mL 1.25 mg inhalation Q4H PRN Wheezing 12/29/22 04/04/23 solution for nebulization triamcinolone acetonide 0.1 % 1 applic topical BID PRN Rash 12/29/22 04/04/23 topical cream umeclidinium 62.5 mcg-vilanterol 1 inh inhalation DAILY 12/29/22 04/04/23 25 mcg/actuation powdr for inhalation (Anoro Ellipta) cyanocobalamin (vitamin B-12) 1,000 mcg PO QAM 03/08/23 04/04/23 1,000 mcg tablet (Vitamin B-12) Previous Rx's Medication Instructions Recorded pantoprazole 40 mg tablet,delayed 40 mg PO BID 30 days #60 tabs 03/02/21 release (Protonix) apixaban 5 mg tablet (Eliquis) 5 mg PO BID #60 tabs 03/09/23 aspirin 81 mg tablet,delayed 81 mg PO QAM #30 tabs 03/11/23 release atorvastatin 80 mg tablet (Lipitor) 80 mg PO DAILY #30 tabs 03/11/23 Results & Data (ED) Vital Signs Vital Signs - 24 hr 04/04/23 14:09 04/04/23 14:44 04/04/23 14:46 Temperature 36.6 C Temperature Source Temporal Artery Scan Pulse Rate 76 71 72 Respiratory Rate 20 17 Respiratory Effort / Characteristics Non-Labored Respiratory Depth Normal Blood Pressure 140/83 112/85 Blood Pressure Mean 102 94 Pulse Oximetry 96 95 Oxygen Delivery Method Room Air Sepsis Recent Fever Within 48 Hours No Sepsis New/Unexplained Change in Mental Status No Sepsis Action Taken by Nursing No Action Required 04/04/23 14:53 04/04/23 14:53 Temperature Temperature Source Pulse Rate 73 Respiratory Rate 22 Respiratory Effort / Characteristics Respiratory Depth Blood Pressure Blood Pressure Mean Pulse Oximetry 96 96 Oxygen Delivery Method Room Air Room Air Sepsis Recent Fever Within 48 Hours Sepsis New/Unexplained Change in Mental Status Sepsis Action Taken by Nursing Laboratory Data 04/04/23 14:30 04/04/23 14:30 Lab Results 04/04/23 04/04/23 Range/Units 14:30 14:37 WBC 7.48 (4.8-10.8) K/ul RBC 4.44 L (4.70-6.10) M/uL Hgb 13.7 L (14.0-18.0) g/dl POC Hgb 14.3 (14.0-18.0) g/dl Hct 41.4 L (42.0-52.0) % POC Hct 42 (42-52) % MCV 93.2 (80.0-100.0) fL MCH 30.9 (25.0-34.0) pg MCHC 33.1 (32.0-36.0) g/dL RDW Std Deviation 51.2 H (36.4-46.3) fL RDW Coeff of Jaz 14.7 H (11.5-14.5) % Plt Count 243 (130-400) K/uL MPV 11.5 (9.4-12.4) fL Immature Gran % (Auto) 0.4 % Neut % (Auto) 55.8 % Lymph % (Auto) 27.7 % [place] % (Auto) 12.0 % Eos % (Auto) 3.6 % Baso % (Auto) 0.5 % Neut # (Auto) 4.17 (1.40-6.50) K/uL Lymph # (Auto) 2.07 (1.20-3.40) K/uL [place] # (Auto) 0.90 H (0.11-0.59) K/uL Eos # (Auto) 0.27 (0.00-0.50) K/uL Baso # (Auto) 0.04 (0.00-0.20) K/uL Immature Gran # (Auto) 0.03 (0.01-0.20) K/uL PT 10.8 (9.0-12.0) Seconds INR 1.0 (0.9-1.1) APTT 26 (21-31) Seconds PTT Ratio 0.9 POC Sodium 144 (135-144) mmol/L Sodium 141 (136-145) mmol/L POC Potassium 4.0 (3.3-5.0) mmol/L Potassium 4.1 (3.5-5.1) mmol/L POC Chloride 105 (101-112) mmol/L Chloride 109 H (98-107) mmol/L Carbon Dioxide 28 (21-32) mmol/L POC Total CO2 25 (24-31) mmol/L Anion Gap 4 (3-11) POC Anion Gap 18.0 (16-25) mmol/L POC BUN 17 (7-18) mg/dl BUN 18 (6-23) mg/dl Creatinine 0.75 (0.6-1.4) mg/dl POC Creatinine 0.8 (0.6-1.3) mg/dl Est Cr Clr Drug Dosing 104.4 ml/min Est GFR ( Amer) 108.5 ml/min Est GFR (Non-Af Amer) 93.6 ml/min BUN/Creatinine Ratio 24.0 H (10-20) Glucose 90 (70-99(Fasting)) mg/dl POC Glucose (other) 91 (70-99) mg/dl Calcium 8.9 (8.6-10.3) mg/dl POC Ioniz Calcium Madalyn 1.17 (1.12-1.32) mmol/l Total Bilirubin 0.3 (0.2-1.0) mg/dl AST 39 (13-39) U/L ALT 56 H (7-52) U/L Alkaline Phosphatase 84 (34-104) U/L Troponin I High Sens 5.1 (0-20) pg/ml Total Protein 6.6 (6.0-8.3) gm/dl Albumin 3.9 (3.4-5.0) gm/dl Globulin 2.7 (2.5-4.0) gm/dl Albumin/Globulin Ratio 1.4 (0.9-2) Lipase 20 (11-82) U/L Adenovirus (PCR) Not Detected (NotDetected) B. pertussis DNA (PCR) Not Detected (NotDetected) B.parapertussis DNA PCR Not Detected (NotDetected) C. pneumoniae DNA (PCR) Not Detected (NotDetected) Coronavirus OC43 (PCR) Not Detected (NotDetected) Coronavirus HKU1 (PCR) Not Detected (NotDetected) Coronavirus 229E (PCR) Not Detected (NotDetected) SARS-CoV-2 (PCR) Not Detected (NotDetected) Coronavirus NL63 (PCR) Not Detected (NotDetected) Human Metapneumovir PCR Not Detected (NotDetected) Influenza Type A (PCR) Not Detected (NotDetected) Influenza Type B (PCR) Not Detected (NotDetected) M. pneumoniae (PCR) Not Detected (NotDetected) Parainfluenza 1 (PCR) Not Detected (NotDetected) Parainfluenza 2 (PCR) Not Detected (NotDetected) Parainfluenza 3 (PCR) Not Detected (NotDetected) Parainfluenza 4 (PCR) Not Detected (NotDetected) RSV (PCR) Not Detected (NotDetected) Entero/Rhino (PCR) Not Detected (NotDetected) Administered Medications Discontinued Medications Acetaminophen (Acetaminophen 500 Mg Tab) 1,000 mg PO NOW STA Stop: 04/04/23 16:09 Last Admin: 04/04/23 16:19 Dose: 1,000 mg Documented By: CPB Albuterol (Albuterol 0.083% Nebu Soln 3 Ml Vial) 2.5 mg NEB NOW STA; Protocol Stop: 04/04/23 16:02 Last Admin: 04/04/23 16:09 Dose: 2.5 mg Documented By: CPB Famotidine (Pepcid 20mg Iv Push) 20 mg in 5 mls @ 2.5 mls/min IV NOW STA Stop: 04/04/23 16:07 Last Admin: 04/04/23 16:19 Dose: 2.5 mls/min Documented By: CPB Ioversol (Optiray 320 125ml) 118 ml IV ONCE ONE Stop: 04/04/23 15:12 Last Admin: 04/04/23 15:12 Dose: 118 ml Documented By: PLW Methylprednisolone (Methylprednisolone 125 Mg/2 Ml Vial) 60 mg IV NOW STA Stop: 04/04/23 16:07 Last Admin: 04/04/23 16:18 Dose: 60 mg Documented By: CPB Imaging Data Radiologist's Impression: Abdomen/Pelvis CTA 04/04/23 14:21 CT ANGIOGRAM OF THE ABDOMEN AND PELVIS CLINICAL HISTORY: Dyspnea. Atypical chest pain. Recent aortic thrombus. COMPARISON STUDY: Abdominal CT dated 03/11/2023. TECHNIQUE: Following the IV administration of 118 cc of Optiray 320, CT angiogram of the abdomen and pelvis was performed from the proximal femora to the lung bases. Images are reviewed in the axial, sagittal, and coronal planes. 3-D MIPS images are created and assessed. IV contrast was administered without complication. A dose lowering technique was utilized adhering to the principles of ALARA. FINDINGS: Lower chest: The heart is top normal in size and without pericardial effusion. The coronary arteries are densely calcified. Emphysematous change is seen at the lung bases. There is bibasilar scarring/atelectasis. No airspace consolidation or pleural effusion is identified. A 4 mm right basilar pulmonary nodule on image #47 is unchanged. Liver: The contrast-enhanced liver is normal in size, contour, and attenuation. There is no intrahepatic biliary ductal dilatation. The main portal veins appear patent. Gallbladder: Unremarkable. Spleen: Normal in size and attenuation noting heterogeneous arterial phase enhancement. Pancreas: Unremarkable. Adrenal glands: Unremarkable. Kidneys: The contrast enhanced kidneys are normal in size and without hydronephrosis. The kidneys enhance symmetrically. Abdominal aorta and iliac arteries: There is advanced atherosclerotic calcification of the abdominal aorta which is normal in caliber. The abdominal aorta is widely patent. No dissection is seen. Advanced atherosclerotic plaque and irregularity is seen in the iliac arteries. The iliac arteries are patent bilaterally. There is at least mild focal stenosis of the left common iliac artery seen on image #199. Imaged portions of the proximal superficial femoral arteries are patent. Major branches of the abdominal aorta: The celiac trunk, superior mesenteric, and inferior mesenteric arteries are patent. There is an accessory left lobe hepatic artery which arises from the left gastric artery. The splenic artery is patent. Single bilateral renal arteries are patent. Bowel: There is mild to moderate colonic fecal retention. No bowel obstruction is seen. The appendix is well-visualized and normal. Peritoneum: There is no intraperitoneal free air or abdominal ascites. A midline surgical scar is noted. There is a fat-containing umbilical hernia. Lymphadenopathy: None. Pelvic viscera: Evaluation of the pelvis is degraded by streak artifact from metallic hardware in the left hip. The bladder, prostate, and seminal vesicles are normal as visualized. There are small bilateral fat-containing groin hernias. Skeletal structures: The skeletal structures are osteopenic. No the ventricular blastic lesions are seen. There are chronic compression deformities of L2, L4, and L5. Mild to moderate lumbosacral spondylosis is observed. There is chronic deformity and postsurgical change noted in the left proximal femur. IMPRESSION: 1. Unremarkable CT angiogram of the abdominal aorta and its major branches noting advanced atherosclerotic change. 2. No acute infectious or inflammatory findings are identified in the abdomen or pelvis. 3. Advanced emphysema. 4. A 4 mm right basilar pulmonary nodule is unchanged. 5. Additional findings as above. ACT 112: Negative or not required by law. Electronically signed by: Wayne Baez M.D. 04/04/2023 3:28 PM Chest CTA 04/04/23 14:21 CT angio chest w con CLINICAL HISTORY: SOB, CP, recent aortic thrombus TECHNIQUE: Multidetector row helical CT of the chest was performed with angiographic protocol. Coronal and sagittal reformations were obtained. Coronal and sagittal MIPS were obtained from the axial data set and were submitted for review. Automated dose lowering techniques and/or adjustment according to patient size were utilized for this exam. Comparison: Comparison is made to CT abdomen pelvis 03/11/2023 and CTA chest 03/08/2023 FINDINGS: Lungs and pleura: Emphysema and interstitial thickening are seen. Bronchial wall thickening is noted. Heart and pericardium: Heart size is normal. No pericardial effusion. Vessels: The ascending aorta is dilated measuring no evidence of pulmonary embolism. Moderate to severe atherosclerotic disease is seen. Mediastinum and jorje: Subcentimeter lymph nodes are seen. Chest wall and lower neck: Unremarkable. Abdomen: For findings below the diaphragm, please refer to CT of the abdomen dated the same. Bones: Degenerative changes in the thoracic spine. IMPRESSION: No acute abnormality, in particular no acute aortic abnormality. ACT 112: Negative or not required by law. Electronically signed by: Florin Soto M.D. 04/04/2023 3:[address] 04/04/23 14:23 CT OF THE HEAD WITHOUT CONTRAST CLINICAL HISTORY: dizzy, sob/cp COMPARISON STUDY: Head CT and CTA of the head March 11, 2023. CT DOSE: 3055.92 mGy.cm TECHNIQUE: Helical axial images of the head were obtained without IV contrast. Automated exposure control was utilized for the study. A dose lowering technique was utilized adhering to the principles of ALARA. FINDINGS: This study is mildly compromised by motion artifact. No acute intracranial hemorrhage, midline shift or mass effect is present. Ventricular system is unremarkable. Basal cisterns are patent. There are no extra-axial collections. White matter hypodensities are unchanged and favor small vessel disease. There are no findings to suggest acute territorial infarct or acute dural sinus thrombosis. There are no calvarial fractures. IMPRESSION: No acute intracranial findings. Exam mildly compromised by motion artifact. ACT 112: Negative or not required by law. Electronically signed by: Jose A Hernandez M.D. 04/04/2023 3:19 PM Discharge Plan Visit Data Chief Complaint: Shortness of Breath/Dyspnea Stated Complaint: TROUBLE BREATHING, DIZZINESS, SHAKING ED Provider: Enrique Crawford Discharge Problem: COPD exacerbation, Chest pain, Abdominal pain, Headache, Dizziness Patient Disposition: Being Evaluated by Hospitalist Forms Stand Alone Forms: My [facility] Prescriptions Prescriptions: No Action pregabalin [Lyrica] 100 mg Capsule 100 mg PO BID pantoprazole [Protonix] 40 mg tablet,delayed release (DR/EC) 40 mg PO BID 30 Days Qty: 60 2RF meclizine 12.5 mg tablet 12.5 mg PO TID PRN (Reason: Dizziness) cyanocobalamin (vitamin B-12) [Vitamin B-12] 1,000 mcg Tablet 1,000 mcg PO QAM Eliquis 5 mg tablet 5 mg PO BID Qty: 60 0RF atorvastatin [Lipitor] 80 mg tablet 80 mg PO DAILY Qty: 30 0RF aspirin 81 mg Tablet,Delayed Release (Dr/Ec) 81 mg PO QAM Qty: 30 0RF prednisone 20 mg tablet 40 mg PO QAM PRN (Reason: RESCUE KIT) Rx Instructions: RESCUE KIT, TAKE FOR 5 DAYS. bupropion HCl [Wellbutrin SR] 150 mg Tablet Sustained-Release 12 Hr 150 mg PO BID ondansetron 8 mg Tablet,Disintegrating 8 mg PO Q8H PRN (Reason: Nausea) clobetasol 0.05 % Cream 1 applic TOPICAL BID PRN (Reason: Rash) triamcinolone acetonide 0.1 % Cream 1 applic TOPICAL BID PRN (Reason: Rash) levalbuterol HCl 1.25 mg/3 mL solution for nebulization 1.25 mg INHALATION Q4H PRN (Reason: Wheezing) Anoro Ellipta 62.5-25 mcg/actuation blister with device 1 inh INHALATION DAILY albuterol sulfate 90 mcg/actuation HFA aerosol inhaler 2 puff INHALATION Q4H PRN (Reason: Shortness Of Breath Or Wheezing) Referrals Referrals: Ajit Moreno MD [Primary Care Provider] -
[2023-04-04 14:50] LABS: iSTAT Creatinine 0.8 mg/dl (0.6-1.3); iSTAT Hemoglobin 14.3 g/dl (14.0-18.0); iSTAT Ionized Calcium 1.17 mmol/l (1.12-1.32)
[2023-04-04 14:51] LABS: Basophils # (auto) 0.04 K/uL (0.00-0.20); Basophils % (auto) 0.5 %; Eosinophils # (auto) 0.27 K/uL (0.00-0.50); Eosinophils % (auto) 3.6 %; Hematocrit (blood only) 41.4 % (42.0-52.0); Hemoglobin 13.7 g/dl (14.0-18.0); Immature Granulocytes # (auto) 0.03 K/uL (0.01-0.20); Immature Granulocytes % (auto) 0.4 %; Lymphocytes # (auto) 2.07 K/uL (1.20-3.40); Lymphocytes % (auto) 27.7 %; Mean Corpuscular Hemoglobin 30.9 pg (25.0-34.0); Mean Corpuscular Hgb Conc 33.1 g/dL (32.0-36.0); Mean Corpuscular Volume 93.2 fL (80.0-100.0); Mean Platelet Volume 11.5 fL (9.4-12.4); Neutrophils # (auto) 4.17 K/uL (1.40-6.50); Neutrophils % (auto) 55.8 %; Platelet Count 243 K/uL (130-400); RDW Coefficient of Variation 14.7 % (11.5-14.5); RDW Standard Deviation 51.2 fL (36.4-46.3); Red Blood Count 4.44 M/uL (4.70-6.10); White Blood Count 7.48 K/ul (4.8-10.8)
[2023-04-04] MEDS: OPTIRAY 320 125ml IV ONE (15:12)
[2023-04-04 15:15] LABS: Partial Thromboplastin Ratio 0.9; Partial Thromboplastin Time 26 Seconds (21-31); Prothrombin Time 10.8 Seconds (9.0-12.0)
--- NOTE | 2023-04-04 15:21 | CT Scan Report ---
CT OF THE HEAD WITHOUT CONTRAST CLINICAL HISTORY: dizzy, sob/cp COMPARISON STUDY: Head CT and CTA of the head March 11, 2023. CT DOSE: 3055.92 mGy.cm TECHNIQUE: Helical axial images of the head were obtained without IV contrast. Automated exposure con trol was utilized for the study. A dose lowering technique was utilized adhering to the principles o f ALARA. FINDINGS: This study is mildly compromised by motion artifact. No acute intracranial hemorrhage, midl ine shift or mass effect is present. Ventricular system is unremarkable. Basal cisterns are patent. T here are no extra-axial collections. White matter hypodensities are unchanged and favor small vessel disease. There are no findings to suggest acute territorial infarct or acute dural sinus thrombosis. There are no calvarial fractures. IMPRESSION: No acute intracranial findings. Exam mildly compromised by motion artifact. ACT 112: Negative or not required by law. Electronically signed by: Jose A Hernandez M.D. 04/04/2023 3:19 PM
--- NOTE | 2023-04-04 15:29 | CT Scan Report ---
CT ANGIOGRAM OF THE ABDOMEN AND PELVIS CLINICAL HISTORY: Dyspnea. Atypical chest pain. Recent aortic thrombus. COMPARISON STUDY: Abdominal CT dated 03/11/2023. TECHNIQUE: Following the IV administration of 118 cc of Optiray 320, CT angiogram of the abdomen and pelvis was performed from the proximal femora to the lung bases. Images are reviewed in the axial, sa gittal, and coronal planes. 3-D MIPS images are created and assessed. IV contrast was administered wi thout complication. A dose lowering technique was utilized adhering to the principles of ALARA. FINDINGS: Lower chest: The heart is top normal in size and without pericardial effusion. The coronary arteries are densely calcified. Emphysematous change is seen at the lung bases. There is bibasilar scarring/at electasis. No airspace consolidation or pleural effusion is identified. A 4 mm right basilar pulmonar y nodule on image #47 is unchanged. Liver: The contrast-enhanced liver is normal in size, contour, and attenuation. There is no intrahepa tic biliary ductal dilatation. The main portal veins appear patent. Gallbladder: Unremarkable. Spleen: Normal in size and attenuation noting heterogeneous arterial phase enhancement. Pancreas: Unremarkable. Adrenal glands: Unremarkable. Kidneys: The contrast enhanced kidneys are normal in size and without hydronephrosis. The kidneys enh ance symmetrically. Abdominal aorta and iliac arteries: There is advanced atherosclerotic calcification of the abdominal aorta which is normal in caliber. The abdominal aorta is widely patent. No dissection is seen. Advanc ed atherosclerotic plaque and irregularity is seen in the iliac arteries. The iliac arteries are terry nt bilaterally. There is at least mild focal stenosis of the left common iliac artery seen on image # 199. Imaged portions of the proximal superficial femoral arteries are patent. Major branches of the abdominal aorta: The celiac trunk, superior mesenteric, and inferior mesenteric arteries are patent. There is an accessory left lobe hepatic artery which arises from the left gastr ic artery. The splenic artery is patent. Single bilateral renal arteries are patent. Bowel: There is mild to moderate colonic fecal retention. No bowel obstruction is seen. The appendix is well-visualized and normal. Peritoneum: There is no intraperitoneal free air or abdominal ascites. A midline surgical scar is not ed. There is a fat-containing umbilical hernia. Lymphadenopathy: None. Pelvic viscera: Evaluation of the pelvis is degraded by streak artifact from metallic hardware in the left hip. The bladder, prostate, and seminal vesicles are normal as visualized. There are small bila teral fat-containing groin hernias. Skeletal structures: The skeletal structures are osteopenic. No the ventricular blastic lesions are s een. There are chronic compression deformities of L2, L4, and L5. Mild to moderate lumbosacral spondy losis is observed. There is chronic deformity and postsurgical change noted in the left proximal femu r. IMPRESSION: 1. Unremarkable CT angiogram of the abdominal aorta and its major branches noting advanced atheroscle rotic change. 2. No acute infectious or inflammatory findings are identified in the abdomen or pelvis. 3. Advanced emphysema. 4. A 4 mm right basilar pulmonary nodule is unchanged. 5. Additional findings as above. ACT 112: Negative or not required by law. Electronically signed by: Wayne Baez M.D. 04/04/2023 3:28 PM
--- NOTE | 2023-04-04 15:29 | CT Scan Report ---
CT angio chest w con CLINICAL HISTORY: SOB, CP, recent aortic thrombus TECHNIQUE: Multidetector row helical CT of the chest was performed with angiographic protocol. Padron l and sagittal reformations were obtained. Coronal and sagittal MIPS were obtained from the axial mynor a set and were submitted for review. Automated dose lowering techniques and/or adjustment according to patient size were utilized for this exam. Comparison: Comparison is made to CT abdomen pelvis 03/11/2023 and CTA chest 03/08/2023 FINDINGS: Lungs and pleura: Emphysema and interstitial thickening are seen. Bronchial wall thickening is noted. Heart and pericardium: Heart size is normal. No pericardial effusion. Vessels: The ascending aorta is dilated measuring no evidence of pulmonary embolism. Moderate to josue re atherosclerotic disease is seen. Mediastinum and jorje: Subcentimeter lymph nodes are seen. Chest wall and lower neck: Unremarkable. Abdomen: For findings below the diaphragm, please refer to CT of the abdomen dated the same. Bones: Degenerative changes in the thoracic spine. IMPRESSION: No acute abnormality, in particular no acute aortic abnormality. ACT 112: Negative or not required by law. Electronically signed by: Florin Soto M.D. 04/04/2023 3:28 PM
[2023-04-04 15:30] LABS: Adenovirus PCR Not Detected (NotDetected); Bordetella parapertussis PCR Not Detected (NotDetected); Bordetella pertussis PCR Not Detected (NotDetected); Chlamydia pneumoniae PCR Not Detected (NotDetected); Coronavirus 229E PCR Not Detected (NotDetected); Coronavirus CoV-2 (COVID19)PCR Not Detected (NotDetected); Coronavirus HKU1 PCR Not Detected (NotDetected); Coronavirus NL63 PCR Not Detected (NotDetected); Coronavirus OC43PCR Not Detected (NotDetected); Human Metapneumovirus PCR Not Detected (NotDetected); Influenza A PCR Not Detected (NotDetected); Influenza B PCR Not Detected (NotDetected); Mycoplasma pneumoniae PCR Not Detected (NotDetected); Parainfluenza Virus 1 PCR Not Detected (NotDetected); Parainfluenza Virus 2 PCR Not Detected (NotDetected); Parainfluenza Virus 3 PCR Not Detected (NotDetected); Parainfluenza Virus 4 PCR Not Detected (NotDetected); Respiratory Syncytial VirusPCR Not Detected (NotDetected); Rhinovirus/Enterovirus PCR Not Detected (NotDetected)
--- NOTE | 2023-04-04 16:02 | Electrocardiogram Report ---
Test Reason : Blood Pressure : / mmHG Vent. Rate : 072 BPM Atrial Rate : 072 BPM P-R Int : 182 ms QRS Dur : 082 ms QT Int : 382 ms P-R-T Axes : 062 042 049 degrees QTc Int : 418 ms Normal sinus rhythm Normal ECG When compared with ECG of 08-MAR-2023 20:01, Vent. rate has decreased BY 41 BPM Confirmed by José Luis Rios ([id number]) on 04/04/2023 4:02:23 PM Referred By: Ajit Moreno Confirmed By:José Luis Rios
[2023-04-04 16:07] LABS: Albumin Globulin Ratio 1.4 (0.9-2); Albumin Level 3.9 gm/dl (3.4-5.0); Bilirubin,Total 0.3 mg/dl (0.2-1.0); Calcium 8.9 mg/dl (8.6-10.3); Creatinine Clr Calc Pharmacy 104.4 ml/min; Est GFR (African American) 108.5 ml/min; Est GFR (Non-African American) 93.6 ml/min; Globulin 2.7 gm/dl (2.5-4.0); Potassium 4.1 mmol/L (3.5-5.1); Total Protein 6.6 gm/dl (6.0-8.3)
[2023-04-04] MEDS: ALBUTEROL 0.083% NEBU SOLN 3 ML VIAL NEB STA ×2 (16:09→17:40)
[2023-04-04 16:13] LABS: Troponin I High Sensitivity 5.1 pg/ml (0-20)
[2023-04-04] MEDS: methylPREDNISolone 125 MG/2 ML VIAL IV STA (16:18)
[2023-04-04] MEDS: FAMOTIDINE 20MG IV PUSH 20 MG/5 ML SYR IV STA (16:19)
[2023-04-04] MEDS: ACETAMINOPHEN 500 MG TAB PO STA (16:19)
[2023-04-04] MEDS: PANTOprazole 40 MG in SYRINGE 0 ML IV ONE (16:41)
--- NOTE | 2023-04-04 17:23 | History & Physical Report ---
Date of Service April 04, 2023 Assessment & Plan (1) COPD exacerbation: Plan 67-year-old male with history of descending aorta thrombus on Eliquis and aspirin, COPD, History of PE, smoker, obstructive sleep apnea, dyslipidemia, GERD, presenting with shortness of breath and dizziness for 1 week. Possible COPD exacerbation CT chest showing bronchial wall thickening, emphysema but no pneumonia, PE, aortic dissection BioFire negative Will give Solumedrol IV 40mg q8h Xopenex/Atrovent every 6 hours Pulmicort twice daily Hypertonic saline twice daily Lasix 20 mg IV Will also get troponin level x 2 Echocardiogram Monitor closely at [facility] with telemetry Descending aorta thrombus CT chest: No dissection noted Continue aspirin 81 mg daily, Eliquis 5 mg p.o. twice daily Lipitor 80 mg daily GERD Continue Protonix 40 mg twice daily Mood disorder Continue propafenone 150 mg twice daily DVT prophylaxis Already on Eliquis which will be continued Disposition Pending Lives at home History of Present Illness Primary Care Provider: Ajit Moreno MD 67-year-old male with history of descending aorta thrombus on Eliquis and aspirin, COPD, History of PE, smoker, obstructive sleep apnea, dyslipidemia, GERD, presenting with shortness of breath and dizziness for 1 week. Patient was recently admitted to [facility] and was discharged on March 12, 2023 after being evaluated and treated for Ascending aorta several months. 2 days after discharge, patient started to develop shortness of breath with exertion, associate with dizziness and intermittent chest pain. At the ER, patient received with stable vital signs overall, saturating more than 90% on room air. CT chest: No aortic dissection, acute PE CT abdomen pelvis: Also not revealing any acute findings CT head: Negative for acute process as well Troponin negative x 1 EKG no signs of acute ischemia or infarct BioFire: Negative Presentation felt to be secondary to possible COPD exacerbation and he was given Solu-Medrol 60 mg IV, albuterol nebulized treatment, pantoprazole and famotidine Patient referred to hospitalist service for further evaluation and treatment. Allergies Allergy/AdvReac Type Severity Reaction Status Date / Time fluticasone furoate Allergy Intermediate lightheadedness Verified 03/08/23 21:30 [From Trelegy Ellipta] and nausea umeclidinium Allergy Intermediate lightheadedness Verified 03/08/23 21:30 [From Trelegy Ellipta] and nausea vilanterol Allergy Intermediate lightheadedness Verified 03/08/23 21:30 [From Trelegy Ellipta] and nausea Home Medications Medication Instructions Recorded Confirmed Type pregabalin 100 mg capsule (Lyrica) 100 mg PO BID 10/16/17 04/04/23 History pantoprazole 40 mg tablet,delayed 40 mg PO BID 30 days #60 tabs 03/02/21 04/04/23 Rx release (Protonix) meclizine 12.5 mg tablet 12.5 mg PO TID PRN Dizziness 06/28/21 04/04/23 History prednisone 20 mg tablet 40 mg PO QAM PRN RESCUE KIT 04/05/22 04/04/23 History bupropion HCl 150 mg tablet,12 hr 150 mg PO BID 04/07/22 04/04/23 History sustained-release (Wellbutrin SR) ondansetron 8 mg disintegrating 8 mg PO Q8H PRN Nausea 04/07/22 04/04/23 History tablet albuterol sulfate 90 mcg/actuation 2 puff inhalation Q4H PRN 12/29/22 04/04/23 History aerosol inhaler Shortness Of Breath Or Wheezing clobetasol 0.05 % topical cream 1 applic topical BID PRN Rash 12/29/22 04/04/23 History levalbuterol HCl 1.25 mg/3 mL 1.25 mg inhalation Q4H PRN Wheezing 12/29/22 04/04/23 History solution for nebulization triamcinolone acetonide 0.1 % 1 applic topical BID PRN Rash 12/29/22 04/04/23 History topical cream umeclidinium 62.5 mcg-vilanterol 1 inh inhalation DAILY 12/29/22 04/04/23 History 25 mcg/actuation powdr for inhalation (Anoro Ellipta) cyanocobalamin (vitamin B-12) 1,000 mcg PO QAM 03/08/23 04/04/23 History 1,000 mcg tablet (Vitamin B-12) apixaban 5 mg tablet (Eliquis) 5 mg PO BID #60 tabs 03/09/23 04/04/23 Rx aspirin 81 mg tablet,delayed 81 mg PO QAM #30 tabs 03/11/23 04/04/23 Rx release atorvastatin 80 mg tablet (Lipitor) 80 mg PO DAILY #30 tabs 03/11/23 04/04/23 Rx Past Med/Surg History Medical History Acute respiratory failure with hypoxemia Chronic respiratory failure On oxygen at night in the past - but no longer needs per patient Hx of migraines Sleep apnea No device History of COVID-19 2019, moderate symptoms > resolved 2020, mild symptoms > resolved Post-nasal drip Chronic - stable HLD (hyperlipidemia) TAYLOR (obstructive sleep apnea) Cannot tolerate device Anxiety Pneumothorax Hx- complication from pain injection- resolved COPD, moderate Breathing stable Neuropathy GERD (gastroesophageal reflux disease) Well controlled and stable Histoplasmosis 2002- treated Diaphragmatic hernia Thoracic spinal stenosis Surgical History History of esophagogastroduodenoscopy (EGD) Hx of colonoscopy History of open reduction and internal fixation (ORIF) procedure right shoulder History of total replacement of left shoulder joint History of sinus surgery History of placement of chest tube History of hand surgery Left femoral shaft fracture Dutch placed H/O total hip arthroplasty left side H/O elbow surgery H/O exploratory thoracotomy "Left thoracotomy wedge biopsy of left upper lobe with excision of lesion or nodule & frozen section 2002" H/O hernia repair "[facility] incarcerated supraumbilical hernia repair open no mesh 02/17/01" Family History Father Heart disease Hypertension Brother Cancer Hypertension Stroke Heart disease Mother Cancer Other Leukemia No family history of bleeding disorder Non-Hodgkin lymphoma Denies family history of Hearing loss Asthma Social History Smoking Status: Current every day smoker Tobacco Type: Cigarettes Age Started Using Tobacco: 11; packs per day: 1; Cigarettes Per Day: 10 cigs /day; Second Hand Exposure: No; Do You Dip or Chew Tobacco: No; Hx Alcohol Use: No Hx Substance Use: No Preferred Language: Martiniquais Communication Ability: Effective Shuttle Driver Required: No Beliefs That Will Affect Care: None marital status: Current Living Situation: Spouse current occupational status: unemployed Feels Safe at Home: Yes Assistive Devices: Oxygen - at Night Review of Systems Review of Systems: all noted and negative except for above Physical Exam Physical Exam: General- oriented x 3, not in distress, speaks in sentences with no effort or accessory muscle use Head- atraumatic Eyes- PERRL, EOMI, anicteric ENT- oropharynx clear Neck- supple, no JVD, no adenopathy, no thyromegaly; carotids +2/2, no bruits a ppreciated Lungs-positive intermittent wheeze bilaterally, also mild rales at the bases with distant breath sounds Heart- normal rate, regular rhythm; no murmur, no gallop, no rub appreciated Abdomen- normal bowel sounds, nondistended, soft, nontender, no masses or hepatosplenomegaly Extremities-mild pretibial edema, no calf tenderness; peripheral pulses intact Neuro- alert, oriented x 3; CN 2-12 grossly intact; motor 5/5 bilaterally;sensation 100% on all extremities; no other gross focal neurologic deficits Skin- warm & dry Results & Data Results & Data Vital Signs (Past 12 Hours) Vital Signs Temp Pulse Resp BP Pulse Ox O2 Del Method 04/04/23 14:53 96 Room Air 04/04/23 14:53 73 22 96 Room Air 04/04/23 14:46 72 04/04/23 14:44 71 17 112/85 95 04/04/23 14:09 36.6 C 76 20 140/83 96 Room Air Code Status & VTE Plan VTE Prophylaxis Plan VTE Prophylaxis will be ordered: Yes
[2023-04-04] MEDS: ACETAMINOPHEN 325 MG TAB PO PRN (19:53)
[2023-04-04] MEDS: ALUMINUM/MAGNESIUM SUSP 30 ML UDC PO STA (20:43)
[2023-04-04] MEDS: FUROSEMIDE INJ 20 MG/2 ML VIAL IV ONE (20:43)
[2023-04-04] MEDS: BUDESONIDE 0.5 MG/2 ML VIAL (PULMICORT) NEB SCH (20:51)
[2023-04-04] MEDS: SODIUM CHLOR 7% 4 ML NEB NEB SCH (20:51)
[2023-04-04] MEDS: LEVALBUTEROL 1.25 MG/3 ML NEB NEB SCH (20:51)
[2023-04-04] MEDS: IPRATROPIUM BROMIDE NEB SOLN 0.02% 0.5MG/2.5ML VIAL INH SCH (20:51)
[2023-04-04] MEDS ORDERED: XOPENEX/ATROVENT 1.25mg/0.5MG NEB COMBO NEB SCH (22:00)
[2023-04-04] MEDS ORDERED: oxyCODONE HCL IR 5 MG TAB (IMMEDIATE RELEASE) PO PRN (22:07)
[2023-04-04] MEDS: PREGABALIN 100 MG CAP PO SCH (22:33)
[2023-04-04] MEDS: PANTOprazole 40 MG TAB PO SCH (22:33)
[2023-04-04] MEDS: APIXABAN 5 MG TABLET PO SCH (22:34)
[2023-04-04] MEDS: KETOROLAC TROMETHAMINE 15 MG/ML VIAL IV ONE (22:35)
[2023-04-04] MEDS: buPROPion SR 150 MG TABCR PO SCH (22:40)
[2023-04-04 23:06] LABS: Hematocrit (blood only) 42.1 % (42.0-52.0); Hemoglobin 14.3 g/dl (14.0-18.0)
--- OUTSIDE RECORDS SUMMARY | 2023-04-04 23:19 | External Medical Summary | Summary of Care ---
Author Name Unknown Organization [facility] Address [address] [place] [address] Phone [phone] Care Team Providers Care Outreach Professional Name Role Phone Ajit Moreno MD Primary Care Provider [phone] Encounter Details Date Type Department Care Team (Latest Contact Info) Description 03/08/2023 9:10 PM EST - 03/08/2023 11:59 PM EST Hospital Encounter Radiology Film File [address] [place] [address] Discharge Disposition: Home - Self Care Allergies Active Allergy Reactions Criticality Noted Date Comments Fluticasone High 02/27/2020 Other reaction(s): lightheadedness and nausea Umeclidinium High 02/27/2020 Other reaction(s): lightheadedness and nausea Vilanterol High 02/27/2020 Other reaction(s): lightheadedness and nausea documented as of this encounter (statuses as of 03/12/2023) Medications Medication Sig Dispensed Refills Start Date End Date Status Respiratory Therapy Supplies (NEBULIZER/TUBING/MO UTHPIECE) KIT Use as directed 1 Kit 5 07/06/2018 Active Umeclidinium-Vilante rol 62.5-25 MCG/ACT Inhalation Aerosol Powder Breath Activated inhale 1 puff by mouth daily 60 Each 6 02/01/2019 Active Albuterol Sulfate HFA 108 (90 Base) MCG/ACT Inhalation Aerosol SolutionIndications: Pulmonary emphysema (HCC) INHALE TWO PUFFS BY MOUTH EVERY 4 HOURS NEEDED FOR SHORTNESS OF BREATH or wheezing 25.5 g 1 03/06/2020 Active Ondansetron HCl 8 MG Oral Tablet (Zofran)Indications: Nausea without vomiting Take 1 Tab by mouth every 8 hours as needed for Nausea. 20 Tab 0 06/30/2020 Active Fluticasone Propionate 50 MCG/ACT Nasal Suspension (Flonase) 0 07/02/2020 Acti ve Clobetasol Propionate 0.05 % External Ointment (Temovate)Indication s:Stasis dermatitis of both legs Apply 2x daily to rash on legs until resolved, then as needed when flaring 60 g 0 08/27/2021 Active Triamcinolone Acetonide 0.1 % External Ointment (Aristocort)Indicati ons:Stasis dermatitis of both legs Apply 2x daily to rash on lower legs when flaring (see printed checkout sheet) 454 g 0 09/10/2021 Active Levalbuterol HCl 1.25 MG/3ML Inhalation Nebulization Solution (Xopenex)Indications :COPD, group C, by GOLD 2017 classification ([facility]) Inhale 1 Ampule via nebulizer every 4 hours as needed for Wheezing. 72 mL 3 03/10/2022 Active Naproxen 500 MG Oral Tablet (Naprosyn)Indication s:Hip pain, left Take 1 Tablet by mouth 2 times a day as needed for Pain. With food 40 Tablet 1 03/10/2022 Active Sildenafil Citrate 50 MG Oral Tablet (Viagra)Indications: Erectile dysfunction, unspecified erectile dysfunction type Take 1 Tablet by mouth as needed for Erectile Dysfunction. 1-4 hours before intercourse, no more than 1 dose in 24 hours. 10 Tablet 5 03/10/2022 Active Additional Information Patient not taking.Reported on 01/03/2023 Bisacodyl 5 MG Oral Tablet Delayed Release Take 1 Tablet by mouth daily as needed for Constipation. 0 Active Docusate Sodium 50 MG Oral Capsule Take 1 Capsule by mouth 2 times a day as needed for Constipation. 0 Active Tavaborole 5 % External SolutionIndications: Onychomycosis Apply to nail daily for 48 weeks 10 mL 1 05/20/2022 Active Additional Information Patient not taking.Reported on 06/01/2022 buPROPion HCl ER (SR) 150 MG Oral Tablet Extended Release 12 Hour (Wellbutrin SR)Indications:Adjus tment disorder with depressed mood TAKE ONE TABLET BY MOUTH IN THE MORNING AND ONE BEFORE BEDTIME 180 Tablet 3 11/05/2022 Active Pantoprazole Sodium 40 MG Oral Tablet Delayed Release (Protonix)Indication s:Gastroesophageal reflux disease with esophagitis, unspecified whether hemorrhage Take 1 Tablet by mouth in the morning and 1 Tablet before bedtime. 180 Tablet 1 11/05/2022 Active Atorvastatin Calcium 10 MG Oral Tablet (Lipitor)Indications :Dyslipidemia, goal LDL below 100 Take 1 Tablet by mouth in the morning. 90 Tablet 3 11/05/2022 Active Doxycycline Hyclate 100 MG Oral CapsuleIndications:C OPD, group C, by GOLD 2017 classification ([facility]) TAKE 1 CAPSULE BY MOUTH TWICE DAILY every morning and before bedtime for 10 days 20 Capsule 0 11/15/2022 Active Additional Information Patient not taking.Reported on 01/03/2023 Meclizine HCl 12.5 MG Oral Tablet (Antivert)Indication s:Dizziness TAKE ONE TABLET BY MOUTH THREE TIMES DAILY NEEDED for dizziness 30 Tablet 2 12/13/2022 Active Azithromycin 250 MG Oral Tablet (Zithromax) 0 12/31/2022 Active predniSONE 20 MG Oral Tablet (Deltasone)Indicatio ns:COPD, group C, by GOLD 2017 classification ([facility]) TAKE 2 TABLETS BY MOUTH EVERY MORNING FOR 5 DAYS 10 Tablet 0 02/22/2023 Active Pregabalin 100 MG Oral Capsule (Lyrica) TAKE 1 CAPSULE BY MOUTH TWICE DAILY 60 Capsule 0 02/22/2023 Active documented as of this encounter (statuses as of 03/12/2023) Active Problems Problem Noted Date Diagnosed Date Dyslipidemia, goal LDL below 70 06/01/2022 Adjustment disorder with depressed mood 06/02/19 23 Senile osteoporosis 06/10/2021 Pulmonary emphysema 02/01/2019 Chronic pain syndrome 09/20/2018 COPD, group C, by GOLD 2017 classification 07/17 Overview: Per COPD GOLD Classification Atherosclerosis of aorta 01/05/2018 Controlled substance agreement signed 02/05/2015 Obstructive sleep apnea 08/23/2014 Overview: Split night pending 2002 PSG -- mild [facility] Obesity, Class I, BMI 30.0-34.9 (see actual BMI) 04/08/2011 Overview: bmi= 32.58 04/08/11 Tobacco use disorder 04/08/2011 Gastroesophageal reflux disease with esophagitis 03/06/2002 Hiatal hernia 03/29/2001 documented as of this encounter (statuses as of 03/12/2023) Resolved Problems Problem Noted Date Diagnosed Date Resolved Date Morbid (severe) obesity due to excess calories 03/10/2022 04/29/2022 Overview: Body Mass Index: 32.94 kg/mAbnormal 1.676 m (5' 6") as of 03/11/2022 92.6 kg (204 lb 1.6 oz) as of 04/02/2022 NO LONGER CURRENT Heart failure 11/23/2021 01/08/2022 CARLOS (generalized anxiety disorder) 09/20/2018 10/06/2020 Pathological dislocation of left upper arm 08/07/2015 09/14/2018 Closed fracture of left femur 07/11/2015 11/15/2016 Pulmonary embolism and infarction 07/11/2015 11/15/2016 Histoplasmosis 06/14/2011 09/20/2018 Emphysema/COPD 06/07/2011 12/21/2011 Overview: PER COPD PROTOCOL #24. LAST PFT -08/30/11 COPD, moderate 06/07/2011 07/19/2018 Overview: PER COPD PROTOCOL #24. LAST PFT -08/30/11 Lateral epicondylitis 09/15/20102018 Shoulder joint pain 09/15/2010 09/15/19 19 Cervicalgia 09/15/2010 09/14/2018 OBESITY, BMI= 34.54 05/27/10 05/27/2010 09/14/2018 Screening for cardiovascular condition 05/27/2010 09/14/2018 Screening for prostate cancer 05/27/2010 09/14/2018 MEDIAL EPICONDYLITIS, LEFT ELBOW 02/10/2010 09/14/2018 Pain in limb 02/10/2010 09/14/2018 Otalgia 03/28/2006 05/30/2017 CHRONIC TOBACCO MUCOSITIS 03/28/2006 ADVANCE DIRECTIVE INFORMATION 10/02/2004 09/14/2018 Overview: No, Advance Directive brochure offered , patient declined. Polyneuropathy in other dise ases classified elsewhere 05/28/2004 11/15/2016 IMPOTENCE, ORGANIC ORIGN 03/26/2003 OTHER DISEASES OF LUNG, NOT ELSEWHERE CLASSIFIED 06/12/2002 09/14/2018 CHEST [id number] 04/09/200209/2018 ABN FD-INTRATHOR ORG NEC-akbar nodule 03/06/2002 09/14/2018 Abdominal pain, generalized 05/09/2001 05/30/2017 Constipation 05/09/2001 09/14/2018 Overview: ICD-10 update of inactive term ROTATOR CUFF SYNDROME, BILATERAL SHOULDERS 05/09/2001 09/14/2018 BACKACHE NOS 05/09/2001 09/20/2018 Nausea 03/29/2001 10/22/2014 Overview: ICD-10 update of inactive term DIZZINESS 03/29/2001 10/22/2014 Cellulitis of face 03/18/2000 8 INFEC OTITIS EXTERNA NOS 03/18/2000 DYSFUNCT EUSTACHIAN TUBE 03/18/2000 Tobacco use disorder 03/18/2000 012 OPEN WOUND, FINGER 03/18/2000 5 documented as of this encounter (statuses as of 03/12/2023) Immunizations Name Administration Dates Next Due COVID-19 mRNA, LNP-s, No Pre serve, 2-Dose Series ([employer]) 05/22/2020,05/01/2020 Seasonal Influenza, PF, 6 M & above, IM , (FluLaval or Fluzone) 10/26/2019,12/22/2018,12/28/2017 Seasonal Influenza, Quadriva lent Hd (Fluzone Hd) 01/08/2022 documented as of this encounter Social History Tobacco Use Types Packs/Day Years Used Date Smoking Tobacco: Every Day Cigarettes 0.5 45 Started: 03/19/2003 Smokeless Tobacco: Never Comments:began at age 8, [address] tried to quit 2003, currently one cigarette a day Alcohol Use Standard Drinks/Week Comments No 0 (1 standard drink = 0.6 oz pur e alcohol) PHQ-2 Answer Date Recorded PHQ Adult Total Score 0 03/11/2022 Hunger Vital Sign Answer Date Recorded Within the past 12 months, y ou worried that your food would run out before you got the money to buy more. Never true 06/18/19 23 Within the past 12 months, t he food you bought just didn't last and you didn't have money to get more. Never true 06/17/2022 Sex and Gender Information Value Date Recorded Sex Assigned at Not on file Gender Identity Male 08/31/2021 1:16 PM EDT Sexual Orientation Straight 07/05/2018 9: 33 AM EDT Job Start Date Occupation Industry Not on file Not on file Not on file documented as of this encounter Plan of Treatment Upcoming Encounters Date Type Department Care Team (Late st Contact Info) Description 03/16/2023 12:40 PM EST Office Visit [address] [place] [phone] JuneAjit MD [address] [place] [address] 03/21/2023 1:00 PM EST Nurse Only Ancillary Department, [place] [address] [place] [address] [place], Nurse [facility] [address] [place] [address] 07/05/2023 1:00 PM EDT Office Visit [place] [address] [place] [facility] [place] [phone] JuneAjit MD [address] [place] [address] Scheduled Procedures Name Priority Associated Diagnoses Date/Ti me COLONOSCOPY FLEXIBLE PROXIMAL DIAGNOSTIC Recall History of colon polyps Health Maintenance Due Date Last Done Comments DISCUSS TOBACCO CESSATION (REFER TO SMARTSET #3692) 1955 Pneumococcal Vaccine: 65+ Years (1 - PCV) 12/04/1959 Alpha-1 Antitrypsin 12/04/1971 DTaP,Tdap,and Td Vaccines (1 - Tdap) 1972 Zoster Vaccines (1 of 2) 12/04/2003 *ADVANCE DIRECTIVE NOT ON FILE 07/22/2018 AAA Screening 2018 *BISPHONATE OR OTHER ACCEPTABLE MEDICATION NEEDED FOR OSTEOPOROSIS (REFER TO SMARTSET #1146) 06/29/2022 COVID-19 Vaccine (3 - 2022-24 season) 2022 05/22/2020, 05/01/2020 Influenza Vaccine (FLU shot) (#1) 2022 01/08/2022, 10/26/2019, 12/22/2018, Additional history exists DXA Scan 10/14/2022 10/14/2020 Depression Screening 03/11/2023 03/11/2022 O2 ASSESSMENT COMPLETED IN PAST YEAR FOR COPD 01/04/2024 01/03/2023 Diabetes Screening 01/11/2025 01/11/2022, 1 04/05/2020, 07/03/2020, Additional history exists COLONOSCOPY-EVERY 5 YRS AGES 18-100 03/18/2026 03/18/2021, 03/18/2021, 12/18/2019, Additional history exists LUNG CANCER SCREENING - USE SMARTSET 18968 Completed 11/08/2016, 11/03/2016, 12/22/2015, Additional history exists Hepatitis C Screening Completed 05/31/2017 , 08/07/2015, 05/03/2014 COLONOSCOPY-ANNUAL AGES 18-100 Discontinued 03/18/2021, 03/18/2021, 12/18/2019, Additional history exists VITAMIN D LEVEL ONCE IN A LIFETIME-USE SMARTSET# [id number] Completed 06/16/2021, 05/03/2014 GARDASIL-HPV IMMUNIZATION SERIES Aged Out No longer eligible based on patient's age to complete this topic Hepatitis B Aged Out No longer eligi ble based on patient's age to complete this topic MENINGOCOCCAL (MENACTRA/MENVEO) Aged Out No longer eligible based on patient's age to complete this topic documented as of this encounter Medical Devices Not on filedocumented as of this encounter Procedures Procedure Name Priority Date/Time Associated Diagnosis Comments RADIOLOGY EXAM - CT (IMAGES ONLY, NO REPORT) Routine 03/08/2023 9:10 PM EST documented in this encounter Results * RADIOLOGY EXAM - CT (IMAGES ONLY, NO REPORT) (03/08/2023 9:10 PM EST) 03/08/2023 9:10 PM EST Narrative Scheduling, Silent - 03/11/2023 10:34 AM EST This is an imaging study not interpreted or resulted by a [facility] or [facility] contracted radiologist. Ajit Moreno MD RAD CT documented in this encounter Advance Directives Latest Code Status on File Code Status Date Activated Date Inactivated Comments Full Code 05/30/2017 8:27 AM 05/30/2017 1:32 PM This order reflects the patients wishes and were consensually agreed upon. Code Status History Code Status Date Activated Date Inactivated Comments Full Code 05/30/2017 8:17 AM 05/30/2017 8:27 AM This order reflects the patients wishes and were consensually agreed upon. None 05/09/2003 9:12 AM 05/09/2003 10:12 AM Care Teams Outreach Professional Relationship Specialty Start Date End Date Ajit Moreno MD [address] [place] [address] PCP - General Family Medicine 03/11/22 documented as of this encounter
--- OUTSIDE RECORDS SUMMARY | 2023-04-04 23:19 | External Medical Summary | Summary of Care ---
Author Name Unknown Organization [facility] Address [address] [place] [address] Phone [phone] Care Team Providers Care [employer] Name Role Phone Ajit Moreno MD Primary Care Provider [phone] Encounter Details Date Type Department Care Team (Late st Contact Info) Description 03/08/2023 Orders Only [facility] [address] [place] [address] Ajit Moreno MD [address] [place] [address] Allergies Active Allergy Reactions Criticality Noted Date Comments Fluticasone High 02/27/2020 Other reaction(s): lightheadedness and nausea Umeclidinium High 02/27/2020 Other reaction(s): lightheadedness and nausea Vilanterol High 02/27/2020 Other reaction(s): lightheadedness and nausea documented as of this encounter (statuses as of 03/11/2023) Medications Medication Sig Dispensed Refills Start Date End Date Status Respiratory Therapy Supplies (NEBULIZER/TUBING/MO UTHPIECE) KIT Use as directed 1 Kit 5 07/06/2018 Active Umeclidinium-Vilante rol 62.5-25 MCG/ACT Inhalation Aerosol Powder Breath Activated inhale 1 puff by mouth daily 60 Each 6 02/01/2019 Active Albuterol Sulfate HFA 108 (90 Base) MCG/ACT Inhalation Aerosol SolutionIndications: Pulmonary emphysema ([facility]) INHALE TWO PUFFS BY MOUTH EVERY 4 [...] :COPD, group C, by GOLD 2017 classification ([facility]) Inhale 1 Ampule via nebulizer every 4 [...] OPD, group C, by GOLD 2017 classification ([facility]) TAKE 1 CAPSULE BY MOUTH TWICE DAILY [...] ns:COPD, group C, by GOLD 2017 classification ([facility]) TAKE 2 TABLETS BY MOUTH EVERY MORNING FOR 5 DAYS 10 Tablet 0 02/22/2023 Active Pregabalin 100 MG Oral Capsule (Lyrica) TAKE 1 CAPSULE BY MOUTH TWICE DAILY 60 Capsule 0 02/22/2023 Active documented as of this encounter (statuses as of 03/11/2023) Active Problems Problem Noted Date Diagnosed Date [...] as of this encounter (statuses as of 03/11/2023) Resolved Problems Problem Noted Date Diagnosed Date [...] LUNG, NOT ELSEWHERE CLASSIFIED 06/12/2002 09/14/2018 CHEST [id number] 04/09/200209/2018 ABN FD-INTRATHOR ORG NEC-akbar nodule 03/06/2002 [...] as of this encounter (statuses as of 03/11/2023) Immunizations Name Administration Dates Next Due COVID-19 mRNA, LNP-s, No Pre serve, 2-Dose Series (Breathometer) 05/22/2020,05/01/2020 Seasonal Influenza, PF, 6 M & [...] Upcoming Encounters Date Type Department Care Team ([facility] Contact Info) Description 03/11/2023 12:00 PM EST Cardiac Studies Cardiac Studies, [address] [phone] 03/16/2023 12:40 PM EST Office Visit [address] [phone] Ajit Moreno MD [address] [place] [address] 03/21/2023 1:00 PM EST Nurse Only Ancillary Department, [address] [phone] [place], Nurse [facility] [address] [place], [place] [phone] 07/05/2023 1:00 PM EDT Office Visit [address] [place] [phone] Ajit Moreno MD [address] [place], [place] [phone] Scheduled Procedures Name Priority Associated Diagnoses Date/Ti me COLONOSCOPY FLEXIBLE PROXIMAL DIAGNOSTIC Recall History of colon polyps Health Maintenance Due Date Last Done Comments DISCUSS TOBACCO CESSATION (REFER TO SMARTSET #1681) 1955 Pneumococcal Vaccine: 65+ Years (1 - PCV) 12/04/1959 Alpha-1 Antitrypsin 12/04/1971 DTaP,Tdap,and Td Vaccines (1 - Tdap) 1972 Zoster Vaccines (1 of 2) 12/04/2003 *ADVANCE DIRECTIVE NOT ON FILE 07/22/2018 AAA Screening 2018 *BISPHONATE OR OTHER ACCEPTABLE MEDICATION NEEDED FOR OSTEOPOROSIS (REFER TO SMARTSET #1146) 06/29/2022 COVID-19 Vaccine (3 - season) 2022 05/22/2020, 05/01/2020 Influenza Vaccine (FLU shot) (#1) 2022 01/08/2022, 10/26/2019, 12/22/2018, Additional history exists DXA Scan 10/14/2022 10/14/2020 Depression Screening 03/11/2023 03/11/2022 O2 ASSESSMENT COMPLETED IN PAST YEAR FOR COPD 01/04/2024 01/03/2023 Diabetes Screening 01/11/2025 01/11/2022, 1 04/05/2020, 07/03/2020, Additional history exists COLONOSCOPY-EVERY 5 YRS AGES 18-100 03/18/2026 03/18/2021, 03/18/2021, 12/18/2019, Additional history exists LUNG CANCER SCREENING - USE SMARTSET 19881 Completed 11/08/2016, 11/03/2016, 12/22/2015, Additional history exists Hepatitis C Screening Completed 05/31/2017 , 08/07/2015, 05/03/2014 COLONOSCOPY-ANNUAL AGES 18-100 Discontinued 03/18/2021, 03/18/2021, 12/18/2019, Additional history exists VITAMIN D LEVEL ONCE IN A LIFETIME-USE SMARTSET# 54551 Completed 06/16/2021, 05/03/2014 GARDASIL-HPV IMMUNIZATION SERIES Aged [...] study not interpreted or resulted by a [employer] or [employer] contracted radiologist. Ajit Moreno MD RAD CT [...] 9:12 AM 05/09/2003 10:12 AM Care Teams [employer] Relationship Specialty Start Date End Date Ajit Moreno MD [address] [place] [address] PCP - General Family Medicine 03/11/22 documented as of this encounter
--- OUTSIDE RECORDS SUMMARY | 2023-04-04 23:19 | External Medical Summary | Summary of Care ---
Author Name Unknown Organization [facility] Address [address] [place] [address] Phone [phone] Care Team Providers Care Manager Practice Name Role Phone Ajit Moreno MD Primary Care Provider [phone] Encounter Details Date Type Department Care Team (Late st Contact Info) Description 03/08/2023 Orders Only [facility] [address] [place] [address] Ajit Moreno MD [address] [place] [address] Allergies Active Allergy Reactions Criticality [...] Base) MCG/ACT Inhalation Aerosol SolutionIndications: Pulmonary emphysema ([facility]) INHALE TWO PUFFS BY MOUTH EVERY 4 [...] :COPD, group C, by GOLD 2017 classification ([facility]) Inhale 1 Ampule via nebulizer every 4 [...] OPD, group C, by GOLD 2017 classification ([facility]) TAKE 1 CAPSULE BY MOUTH TWICE DAILY [...] ns:COPD, group C, by GOLD 2017 classification ([facility]) TAKE 2 TABLETS BY MOUTH EVERY MORNING [...] LUNG, NOT ELSEWHERE CLASSIFIED 06/12/2002 09/14/2018 CHEST [id number] 04/09/200209/2018 ABN FD-INTRATHOR ORG NEC-akbar nodule 03/06/2002 [...] mRNA, LNP-s, No Pre serve, 2-Dose Series ([employer]) 05/22/2020,05/01/2020 Seasonal Influenza, PF, 6 M & [...] Upcoming Encounters Date Type Department Care Team ([facility] st Contact Info) Description 03/16/2023 12:40 PM EST Office Visit [address] [place] [phone] JuneAjit MD [address] [place] [address] 03/21/2023 1:00 PM EST Nurse Only Ancillary Department, [address] [phone] [place], Nurse [facility] [address] [place], [place] [phone] 07/05/2023 1:00 PM EDT Office Visit [address] [place] [phone] JuneAjit MD [address] [facility] [place] [address] Scheduled Procedures Name Priority Associated Diagnoses Date/Ti me COLONOSCOPY FLEXIBLE PROXIMAL DIAGNOSTIC Recall History of colon polyps Health Maintenance Due Date Last Done Comments DISCUSS TOBACCO CESSATION (REFER TO SMARTSET #3291) 1955 Pneumococcal Vaccine: 65+ Years (1 - [...] exists LUNG CANCER SCREENING - USE SMARTSET 23323 Completed 11/08/2016, 11/03/2016, 12/22/2015, Additional history exists Hepatitis C Screening Completed 05/31/2017 , 08/07/2015, 05/03/2014 COLONOSCOPY-ANNUAL AGES 18-100 Discontinued 03/18/2021, 03/18/2021, 12/18/2019, Additional history exists VITAMIN D LEVEL ONCE IN A LIFETIME-USE SMARTSET# 82256 Completed 06/16/2021, 05/03/2014 GARDASIL-HPV IMMUNIZATION SERIES Aged [...] Date/Time Associated Diagnosis Comments RADIOLOGY EXAM - GENERAL RAD (IMAGES ONLY,NO REPORT) Routine 03/08/2023 8:15 PM EST documented in this encounter Results * RADIOLOGY EXAM - GENERAL RAD (IMAGES ONLY,NO REPORT) (03/08/2023 8:15 PM EST) 03/08/2023 8:11 PM EST Narrative Scheduling, Silent - 03/11/2023 12:07 PM EST This is an imaging study not interpreted or resulted by a [facility] or [facility] contracted radiologist. Ajit Moreno MD RADIOLOGY (RAD GENER AL) documented in this encounter Advance Directives Latest [...] 9:12 AM 05/09/2003 10:12 AM Care Teams Manager Practice Relationship Specialty Start Date End Date June, Ajit Sylvester MD [address] [place] [address] PCP - General Family Medicine 03/11/22 documented as of this encounter
--- OUTSIDE RECORDS SUMMARY | 2023-04-04 23:19 | External Medical Summary | Summary of Care ---
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) Procedures CTA CHEST NON-CORONARY W CONTRAST JuneAjit MD [address] [place] [address] Referral ID Status Reason Start Date Expiration Date V isits Requested Visits Authorized [id number] Pending Review 03/21/2023 999 999 Reason for Visit * Reason Onset Date Comments Hospital Follow-Up Continues to feel short of breath Hospital Follow-Up 03/21/2023 Encounter Details Date Type Department Care Team (Latest Contact Info) Description 03/21/2023 9:00 AM EST Office Visit [facility] [address] [place] [address] Ajit Moreno MD [address] [facility] [place] [id number] Aneurysm of descending thoracic aorta without rupture (HCC)*; Pulmonary emphysema, unspecified emphysema type (HCC); Adjustment disorder with depressed mood; COPD, group C, by GOLD 2017 classification (HCC); Nausea without vomiting; Gastroesophageal reflux disease with esophagitis, unspecified whether hemorrhage; Embolism and thrombosis of unspecified parts of aorta ([facility]); Senile osteoporosis; Hyperlipidemia, unspecified hyperlipidemia type; Anxiety; Chronic pain syndrome; Hospital discharge follow-up Allergies Active Allergy Reactions Criticality Noted Date Comments Fluticasone High 02/27/2020 Other reaction(s): lightheadedness and nausea Umeclidinium High 02/27/2020 Other reaction(s): lightheadedness and nausea Vilanterol High 02/27/2020 Other reaction(s): lightheadedness and nausea documented as of this encounter (statuses as of 03/21/2023) Medications Medication Sig Dispensed Refills Start Date End Date Status Respiratory Therapy Supplies (NEBULIZER/TUBING/ MOUTHPIECE) KIT Use as directed 1 Kit 5 9 Active Umeclidinium-Vilan terol 62.5-25 MCG/ACT Inhalation Aerosol Powder Breath Activated inhale 1 puff by mouth daily 60 Each 6 9 Active Fluticasone Propionate 50 MCG/ACT Nasal Suspension (Flonase) 0 1 Active Clobetasol Propionate 0.05 % External Ointment (Temovate)Indicati ons:Stasis dermatitis of both legs Apply 2x daily to rash on legs until resolved, then as needed when flaring 60 g 0 2 Active Triamcinolone Acetonide 0.1 % External Ointment (Aristocort)Indica tions:Stasis dermatitis of both legs Apply 2x daily to rash on lower legs when flaring (see printed checkout sheet) 454 g 0 2 Active Naproxen 500 MG Oral Tablet (Naprosyn)Indicati ons:Hip pain, left Take 1 Tablet by mouth 2 times a day as needed for Pain. With food 40 Tablet 1 3 Active Sildenafil Citrate 50 MG Oral Tablet (Viagra)Indication s:Erectile dysfunction, unspecified erectile dysfunction type Take 1 Tablet by mouth as needed for Erectile Dysfunction. 1-4 hours before intercourse, no more than 1 dose in 24 hours. 10 Tablet 5 3 Active Additional Information Patient not taking.Reported on 01/03/2023 Bisacodyl 5 MG Oral Tablet Delayed Release Take 1 Tablet by mouth daily as needed for Constipation. 0 Active Docusate Sodium 50 MG Oral Capsule Take 1 Capsule by mouth 2 times a day as needed for Constipation. 0 Active Tavaborole 5 % External SolutionIndication s:Onychomycosis Apply to nail daily for 48 weeks 10 mL 1 3 Active Additional Information Patient not taking.Reported on 06/01/2022 Meclizine HCl 12.5 MG Oral Tablet (Antivert)Indicati ons:Dizziness TAKE ONE TABLET BY MOUTH THREE TIMES DAILY NEEDED for dizziness 30 Tablet 2 3 Active Atorvastatin Calcium 80 MG Oral Tablet (Lipitor) Take 1 Tablet by mouth in the morning. 0 4 Active Aspirin 81 MG Oral Tablet Chewable (Aspirin 81) Take 1 Tablet by mouth in the morning. 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 180 Tablet 1 4 Active Levalbuterol HCl 1.25 MG/3ML Inhalation Nebulization Solution (Xopenex)Indicatio ns:COPD, group C, by GOLD 2017 classification ([facility]) Inhale 1 Ampule via nebulizer every 4 hours as needed for Wheezing. 72 mL 3 4 Active Ondansetron HCl 8 MG Oral Tablet (Zofran)Indication s:Nausea without vomiting Take 1 Tablet by mouth every 8 hours as needed for Nausea. 20 Tablet 0 4 Active Pantoprazole Sodium 40 MG Oral Tablet Delayed Release (Protonix)Indicati ons:Gastroesophage al reflux disease with esophagitis, unspecified whether hemorrhage Take 1 Tablet by mouth in the morning and 1 Tablet before bedtime. 180 Tablet 1 4 Active Pregabalin 100 MG Oral Capsule (Lyrica)Indication s:Chronic pain syndrome Take 1 Capsule by mouth in the morning and 1 Capsule before bedtime. 60 Capsule 0 4 Active LORazepam 0.5 MG Oral Tablet (Ativan)Indication s:Anxiety Take 1 Tablet by mouth every 6 hours as needed for Agitation. 20 Tablet 0 4 Active Albuterol Sulfate HFA 108 (90 Base) MCG/ACT Inhalation Aerosol SolutionIndication s:Pulmonary emphysema (HCC) INHALE TWO PUFFS BY MOUTH EVERY 4 HOURS NEEDED FOR SHORTNESS OF BREATH or wheezing 25.5 g 1 1 024 Discontinued(Re fill) Ondansetron HCl 8 MG Oral Tablet (Zofran)Indication s:Nausea without vomiting Take 1 Tab by mouth every 8 hours as needed for Nausea. 20 Tab 0 1 024 Discontinued(Re fill) Levalbuterol HCl 1.25 MG/3ML Inhalation Nebulization Solution (Xopenex)Indicatio ns:COPD, group C, by GOLD 2017 classification ([facility]) Inhale 1 Ampule via nebulizer every 4 hours as needed for Wheezing. 72 mL 3 3 024 Discontinued(Re fill) buPROPion HCl ER (SR) 150 MG Oral Tablet Extended Release 12 Hour (Wellbutrin SR)Indications:Adj ustment disorder with depressed mood TAKE ONE TABLET BY MOUTH IN THE MORNING AND ONE BEFORE BEDTIME 180 Tablet 3 3 024 Discontinued(Re fill) Pantoprazole Sodium 40 MG Oral Tablet Delayed Release (Protonix)Indicati ons:Gastroesophage al reflux disease with esophagitis, unspecified whether hemorrhage Take 1 Tablet by mouth in the morning and 1 Tablet before bedtime. 180 Tablet 1 3 024 Discontinued(Re fill) Atorvastatin Calcium 10 MG Oral Tablet (Lipitor)Indicatio ns:Dyslipidemia, goal LDL below 100 Take 1 Tablet by mouth in the morning. 90 Tablet 3 3 024 Discontinued Doxycycline Hyclate 100 MG Oral CapsuleIndications :COPD, group C, by GOLD 2017 classification ([facility]) TAKE 1 CAPSULE BY MOUTH TWICE DAILY every morning and before bedtime for 10 days 20 Capsule 0 3 024 Discontinued Azithromycin 250 MG Oral Tablet (Zithromax) 0 3 024 Discontinued predniSONE 20 MG Oral Tablet (Deltasone)Indicat ions:COPD, group C, by GOLD 2017 classification ([facility]) TAKE 2 TABLETS BY MOUTH EVERY MORNING FOR 5 DAYS 10 Tablet 0 4 024 Discontinued(Co dication List Clean Up) Pregabalin 100 MG Oral Capsule (Lyrica) TAKE 1 CAPSULE BY MOUTH TWICE DAILY 60 Capsule 0 4 024 Discontinued(Re fill) Eliquis 5 MG Oral Tablet Take 1 Tablet by mouth in the morning and 1 Tablet before bedtime. 0 4 024 Discontinued(Re fill) documented as of this encounter (statuses as of 03/21/2023) Active Problems Problem Noted Date Diagnosed Date Embolism and thrombosis of unspecified parts of aorta 03/21/2023 Hyperlipidemia 03/21/2023 Dyslipidemia, goal LDL below 70 06/01/2022 Adjustment disorder with depressed mood 06/02/19 Senile osteoporosis 06/10/2021 Pulmonary emphysema 02/01/2019 Chronic [...] as of this encounter (statuses as of 03/21/2023) Resolved Problems Problem Noted Date Diagnosed Date [...] LUNG, NOT ELSEWHERE CLASSIFIED 06/12/2002 09/14/2018 CHEST [id number] 04/09/200209/2018 ABN FD-INTRATHOR ORG NEC-akbar nodule 03/06/2002 [...] as of this encounter (statuses as of 03/21/2023) Immunizations Name Administration Dates Next Due COVID-19 mRNA, LNP-s, No Pre serve, 2-Dose Series ([employer]) 05/22/2020,05/01/2020 Seasonal Influenza, PF, 6 M & [...] on file documented as of this encounter Last Filed Vital Signs Vital Sign Reading Time Taken Comments Blood Pressure 118/82 03/21/2023 9:00 AM EST Pulse 70 03/21/2023 9:00 AM EST Temperature 36.5 C (97.7 F) 03/21/2023 9:00 AM ES T Respiratory Rate 18 03/21/2023 9:00 AM EST Oxygen Saturation 97% 03/21/2023 9:00 AM EST Inhaled Oxygen Concentration - - Weight 98.4 kg (216 lb 14.4 oz) 03/21/2023 9:00 AM EST Height 167.6 cm (5' 6") 03/21/2023 9:00 AM EST Body Mass Index 35.01 03/21/2023 9:00 AM EST documented in this encounter Progress Notes * Ajit Moreno MD - 03/21/2023 9:05 AM EST Images from the original note were not included. Assessment and Plan Patient overall is improving from his descending thoracic aorta clot. Continue high-dose statin, aspirin, Eliquis for minimum of [address] angiogram of the chest was ordered today to be completed in 3 months for further evaluation. At that time we can get in contact with Cardiology versus Vascular Surgery versus Hematology/Oncology to discuss stopping anticoagulation versus continuing indefinitely. I do suspect he has significant anxiety and therefore we will start Ativan today. We did note reassuring vital signs and his lung exam is unremarkable making progression of clot seem unlikely atthis point. No other changes to his home medications. We will repeat lab work prior to his CT angiog fabiola to monitor renal function. 1. Pulmonary emphysema (HCC) - Albuterol Sulfate HFA 108 (90 Base) MCG/ACT Inhalation Aerosol Solution; INHALE TWO PUFFS BY MOUTH EVERY 4 HOURS NEEDED FOR SHORTNESS OF BREATH or wheezing Dispense: 25.5 g; Refill: 1 2. Adjustment disorder with depressed mood - buPROPion HCl ER (SR) 150 MG Oral Tablet Extended Release 12 Hour (Wellbutrin SR); TAKE ONE TABLET BY MOUTH IN THE MORNING AND ONE BEFORE BEDTIME Dispense: 180 Tablet; Refill: 3 3. COPD, group C, by GOLD 2017 classification ([facility]) - Levalbuterol HCl 1.25 MG/3ML Inhalation Nebulization Solution (Xopenex); Inhale 1 Ampule via nebulizer every 4 hours as needed for Wheezing. Dispense: 72 mL; Refill: 3 4. Nausea without vomiting - Ondansetron HCl 8 MG Oral Tablet (Zofran); Take 1 Tablet by mouth every 8 hours as needed for Nausea. Dispense: 20 Tablet; Refill: 0 5. Gastroesophageal reflux disease with esophagitis, unspecified whether hemorrhage - Pantoprazole Sodium 40 MG Oral Tablet Delayed Release (Protonix); Take 1 Tablet by mouth in the morning and 1 Tablet before bedtime. Dispense: 180 Tablet; Refill: 1 6. Embolism and thrombosis of unspecified parts of aorta ([facility]) - Eliquis 5 MG Oral Tablet; Take 1 Tablet by mouth in the morning and 1 Tablet before bedtime. Dispense: 180 Tablet; Refill: 1 - CTA CHEST NON-CORONARY W CONTRAST - BASIC METABOLIC PANEL; Future 7. Senile osteoporosis 8. Hyperlipidemia, unspecified hyperlipidemia type 9. Aneurysm of descending thoracic aorta without rupture ([facility]) 10. Anxiety - LORazepam 0.5 MG Oral Tablet (Ativan); Take 1 Tablet by mouth every 6 hours as needed for Agitation. Dispense: 20 Tablet; Refill: 0 11. Chronic pain syndrome - Pregabalin 100 MG Oral Capsule (Lyrica); Take 1 Capsule by mouth in the morning and 1 Capsule before bedtime. Dispense: 60 Capsule; Refill: 0 12. Hospital discharge follow-up - DISCH MED RECON CUR MED LIS Wrap-Up Follow up as scheduled in 3 months. History of Present Illness The patient is a 67-year-old male with past medical history dyslipidemia, COPD, TAYLOR, pulmonary emphysema, GERD, tobacco use disorder, thrombosis of the aorta who presents for hospital follow up. Patient was admitted to [facility] from 03/09/2023 through 03/12/2023. Patient was evaluated in the ED 10 days prior to hospitalization found to be RSV positive. Symptomsresolve with supportive management at home. He then presented on the day of admission with pleuritic chest pain associated with shortness of breath. He was oxygen saturations were in the 80s with a systolic blood pressure in the 80s upon arrival to the ER. CTA of the chest showed a thrombus in the p roximal descending thoracic aorta measuring 12 mm and tapering to 6 mm. Troponin negative. Respiratory viral panel negative. Lower extremity venous duplex ruled out DVT. An echocardiogram showed an EF of 60-65% with normal left ventricular wall motion. Dr. Delgado of Vascular Surgery at [facility] was consulted and suspected that the nonocclusive aortic thrombus was a result of a ruptured atherosclerotic plaque. He was recommended the patient start aspirin 81 mg along with high-dose statin and Eliquis 5 mg daily. Recommendation for repeat CT angiogram of the chest in 3 months wasmade to follow up the thrombus. No other medication changes were made. Today patient reports he continues to have mild shortness of breath. This seems to be related to significant anxiety mostly surrounding the potential for the clot worsening or moving. We did discuss the importance of continuing to take his Eliquis for the recommended minimum of [address] a [address] scan to evaluate the clot. Reassuring that is echocardiogram looked largely normal. There is some confusion on whether there was a pulmonary embolism present as specialists notes are contradictory and the CT read from admission also is contradictory. Reviewed vital signs which are within normallimits. Oxygen saturation is 97% on room air. His blood pressure is 118/82. Physical Exam Vitals: 03/21/23 0900 Temp: 36.5 C (97.7 F) Pulse: 70 Resp: 18 SpO2: 97% BP: 118/82 BMI: 35.03 Physical Exam Physical Exam Vitals reviewed. Constitutional: General: He is not in acute distress. Cardiovascular: Rate and Rhythm: Normal rate and regular rhythm. Heart sounds: No murmur heard. Pulmonary: Effort: Pulmonary effort is normal. No respiratory distress. Breath sounds: Normal breath sounds. Comments: Intermittent dry cough. Musculoskeletal: Cervical back: Neck supple. Right lower leg: No edema. Left lower leg: No edema. Lymphadenopathy: Cervical: No cervical adenopathy. Neurological: Mental Status: He is alert. I spent a total of 40-54 minutes (exact time 50 mins) on the date of service in preparation, delivery, and documentation of the care provided to Florentin Franks excluding any time spent in the performance of separately billed services. This note has been completed in part utilizing Fluency Speech Voice Recognition Software. Due to technical limitations of the software, grammatical errors, random word insertions, prounoun errors, and incomplete sentences may occur. Any formal questions or concerns about the content, text, or information contained within the body of this dictation should be directly addressed to the provider for clarification. documented in this encounter Nursing Notes * Ronel Deutsch LPN - 03/21/2023 9:06 AM EST The patient has been properly identified by confirmation of name and date of . Chief Complaint Patient presents with Hospital Follow-Up Continues to feel short of breath documented in this encounter Plan of Treatment Upcoming Encounters Date Type Department Care Team (Late st Contact Info) Description 06/20/2023 8:00 AM EDT Office Visit [facility] [address] [facility] [phone] Ajit Moreno MD [address] [place] [address] 06/20/2023 4:30 PM EDT Imaging Radiology [address] [place] [address] 07/05/2023 1:00 PM EDT Office Visit [facility] [address] [facility] [address] Ajit Moreno MD [address] [facility] [address] Scheduled Orders Name Type Priority Associated Diagnoses Orde r Schedule CTA CHEST NON-CORONARY W CONTRAST Medical Imaging Routine 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) Ordered: 03/21/2023 BASIC METABOLIC PANEL Lab Routine 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) Expected: 06/08/2023 (Approximate), Expires: 03/20/2024 Scheduled Procedures Name Priority Associated Diagnoses Date/Ti me COLONOSCOPY FLEXIBLE PROXIMAL DIAGNOSTIC Recall History of colon polyps Health Maintenance Due Date Last Done Comments DISCUSS TOBACCO CESSATION (REFER TO SMARTSET #1313) 1955 Pneumococcal Vaccine: 65+ Years (1 - PCV) 12/04/1959 Alpha-1 Antitrypsin 12/04/1971 DTaP,Tdap,and Td Vaccines (1 - Tdap) 1972 Zoster Vaccines (1 of 2) 12/04/2003 *ADVANCE DIRECTIVE NOT ON FILE 07/22/2018 AAA Screening 2018 *BISPHONATE OR OTHER ACCEPTABLE MEDICATION NEEDED FOR OSTEOPOROSIS (REFER TO SMARTSET #1146) 06/29/2022 COVID-19 Vaccine (3 - 2022- season) 2022 05/22/2020, 05/01/2020 Influenza Vaccine (FLU shot) (#1) 2022 01/08/2022, 10/26/2019, 12/22/2018, Additional history exists DXA Scan 10/14/2022 10/14/2020 Depression Screening 03/11/2023 03/11/2022 O2 ASSESSMENT COMPLETED IN PAST YEAR FOR COPD 01/04/2024 01/03/2023 Diabetes Screening 01/11/2025 01/11/2022, 1 04/05/2020, 07/03/2020, Additional history exists COLONOSCOPY-EVERY 5 YRS AGES 18-100 03/18/2026 03/18/2021, 03/18/2021, 12/18/2019, Additional history exists LUNG CANCER SCREENING - USE SMARTSET 80997 Completed 11/08/2016, 11/03/2016, 12/22/2015, Additional history exists Hepatitis C Screening Completed 05/31/2017 , 08/07/2015, 05/03/2014 COLONOSCOPY-ANNUAL AGES 18-100 Discontinued 03/18/2021, 03/18/2021, 12/18/2019, Additional history exists VITAMIN D LEVEL ONCE IN A LIFETIME-USE SMARTSET# 15968 Completed 06/16/2021, 05/03/2014 GARDASIL-HPV IMMUNIZATION SERIES Aged [...] Not on filedocumented as of this encounter Visit Diagnoses Diagnosis Aneurysm of descending thoracic aorta without rupture (HCC)- Primary Pulmonary emphysema, unspecified emphysema type (HCC) Adjustment disorder with depressed mood COPD, group C, by GOLD 2017 classification (HCC) Nausea without vomiting Gastroesophageal reflux disease with esophagitis, unspecified whether hemorrhage 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
--- OUTSIDE RECORDS SUMMARY | 2023-04-04 23:19 | External Medical Summary | Summary of Care ---
Author Name Unknown Organization [facility] Address [address] [place] [address] Phone [phone] Care Team Providers Care Sprinkler Inspector Name Role Phone Ajit Moreno MD Primary Care Provider Encounter Details Date Type Department Care Team (Latest Contact Info) Description 02/28/2023 5:25 PM EST - 02/28/2023 11:59 PM EST Hospital Encounter Radiology Film File [address] [place] [address] Discharge Disposition: Home - Self [...] C, by GOLD 2017 classification ([facility]) Inhale 1 Ampule via nebulizer [...] C, by GOLD 2017 classification ([facility]) TAKE 1 CAPSULE BY MOUTH [...] C, by GOLD 2017 classification ([facility]) TAKE 2 TABLETS BY MOUTH [...] LUNG, NOT ELSEWHERE CLASSIFIED 06/12/2002 09/14/2018 CHEST [id number] 04/09/200209/2018 ABN FD-INTRATHOR ORG NEC-akbar nodule 03/06/2002 [...] mRNA, LNP-s, No Pre serve, 2-Dose Series ([employer]) 05/22/2020,05/01/2020 Seasonal Influenza, PF, 6 M & [...] Description 03/16/2023 12:40 PM EST Office Visit [address] [place] [id number] JuneAjit MD [address] [place] [address] 03/21/2023 1:00 PM EST Nurse Only Ancillary Department, [place] [address] [place] [address] [place], Nurse Annual [facility] [address] [place] [address] 07/05/2023 1:00 PM EDT Office Visit [place] [address] [facility] [place] [place] [id number] JuneAjit MD [address] [place] [address] Scheduled Procedures Name Priority Associated Diagnoses Date/Ti me COLONOSCOPY FLEXIBLE PROXIMAL DIAGNOSTIC Recall History of colon polyps Health Maintenance Due Date Last Done Comments DISCUSS TOBACCO CESSATION (REFER TO SMARTSET #9686) 1955 Pneumococcal Vaccine: 65+ Years (1 - [...] exists LUNG CANCER SCREENING - USE SMARTSET 56747 Completed 11/08/2016, 11/03/2016, 12/22/2015, Additional history exists Hepatitis C Screening Completed 05/31/2017 , 08/07/2015, 05/03/2014 COLONOSCOPY-ANNUAL AGES 18-100 Discontinued 03/18/2021, 03/18/2021, 12/18/2019, Additional history exists VITAMIN D LEVEL ONCE IN A LIFETIME-USE SMARTSET# [id number] Completed 06/16/2021, 05/03/2014 GARDASIL-HPV IMMUNIZATION SERIES Aged [...] - GENERAL RAD (IMAGES ONLY,NO REPORT) Routine 02/28/2023 5:25 PM EST documented in this encounter Results * RADIOLOGY EXAM - GENERAL RAD (IMAGES ONLY,NO REPORT) (02/28/2023 5:25 PM EST) 02/28/2023 5:23 PM EST Narrative Scheduling, Silent - 03/11/2023 10:09 AM EST This is an imaging study not interpreted or resulted by a [facility] or [facility] contracted radiologist. Ajit Moreno MD RADIOLOGY (RAD [...] 9:12 AM 05/09/2003 10:12 AM Care Teams Sprinkler Inspector Relationship Specialty Start Date End Date Ajit Moreno MD [address] [place] [address] PCP - General Family Medicine 03/11/22 documented as of this encounter
--- OUTSIDE RECORDS SUMMARY | 2023-04-04 23:19 | External Medical Summary | Summary of Care ---
Author Name Unknown Organization [facility] Address [address] [place] [address] Phone [phone] Care Team Providers Care Director Of Compensation Name Role Phone Ajit Moreno MD Primary Care Provider [phone] Encounter Details Date Type Department Care Team (Latest Contact Info) Description 03/08/2023 8:15 PM EST - 03/08/2023 9:09 PM [facility] Hospital Encounter Radiology Film File [address] [place] [address] Discharge Disposition: Home - Self [...] group C, by GOLD 2017 classification ([facility]) Inhale 1 Ampule via nebulizer every 4 [...] OPD, group C, by GOLD 2017 classification ([facility]) TAKE 1 CAPSULE BY MOUTH TWICE DAILY [...] group C, by GOLD 2017 classification ([facility]) TAKE 2 TABLETS BY MOUTH EVERY MORNING [...] LUNG, NOT ELSEWHERE CLASSIFIED 06/12/2002 09/14/2018 CHEST [id number] 04/09/200209/2018 ABN FD-INTRATHOR ORG NEC-akbar nodule 03/06/2002 [...] mRNA, LNP-s, No Pre serve, 2-Dose Series ([employer]) 05/22/2020,05/01/2020 Seasonal Influenza, PF, 6 M & [...] Description 03/16/2023 12:40 PM EST Office Visit [address] [place] [phone] JuneAjit MD [address] [place] [address] 03/21/2023 1:00 PM EST Nurse Only Ancillary Department, [place] [address] [place] [address] [place], Nurse [facility] [address] [place] [address] 07/05/2023 1:00 PM EDT Office Visit [place] [address] [place] [facility] [place] [phone] JuneAjit MD [address] [place] [address] Scheduled Procedures Name Priority Associated Diagnoses Date/Ti me COLONOSCOPY FLEXIBLE PROXIMAL DIAGNOSTIC Recall History of colon polyps Health Maintenance Due Date Last Done Comments DISCUSS TOBACCO CESSATION (REFER TO SMARTSET #6368) 1955 Pneumococcal Vaccine: 65+ Years (1 - [...] exists LUNG CANCER SCREENING - USE SMARTSET 92607 Completed 11/08/2016, 11/03/2016, 12/22/2015, Additional history exists Hepatitis C Screening Completed 05/31/2017 , 08/07/2015, 05/03/2014 COLONOSCOPY-ANNUAL AGES 18-100 Discontinued 03/18/2021, 03/18/2021, 12/18/2019, Additional history exists VITAMIN D LEVEL ONCE IN A LIFETIME-USE SMARTSET# 60043 Completed 06/16/2021, 05/03/2014 GARDASIL-HPV IMMUNIZATION SERIES Aged [...] 9:12 AM 05/09/2003 10:12 AM Care Teams Director Of Compensation Relationship Specialty Start Date End Date Ajit Moreno MD [address] [place] [address] PCP - General Family Medicine 03/11/22 documented as of this encounter
--- OUTSIDE RECORDS SUMMARY | 2023-04-04 23:19 | External Medical Summary | Summary of Care ---
Author Name Unknown Organization [facility] Address [address] [place] [address] Phone [phone] Care Team Providers Care Pet Walker Name Role Phone Ajit Moreno MD Primary Care Provider Reason for Visit * Reason Onset Date Comments Appointment 03/16/2023 Encounter Details Date Type Department Care Team (Late st Contact Info) Description 03/16/2023 Telephone [facility] [address] [place] [address] JuneAjit MD [address] [place] [address] Appointment Allergies Active Allergy Reactions Criticality Noted Date Comments Fluticasone High 02/27/2020 Other reaction(s): lightheadedness and nausea Umeclidinium High 02/27/2020 Other reaction(s): lightheadedness and nausea Vilanterol High 02/27/2020 Other reaction(s): lightheadedness and nausea documented as of this encounter (statuses as of 03/16/2023) Medications Medication Sig Dispensed Refills Start Date [...] :COPD, group C, by GOLD 2017 classification ([facility]) Inhale 1 Ampule via nebulizer [...] OPD, group C, by GOLD 2017 classification ([facility]) TAKE 1 CAPSULE BY MOUTH [...] ns:COPD, group C, by GOLD 2017 classification ([facility]) TAKE 2 TABLETS BY MOUTH EVERY MORNING FOR 5 DAYS 10 Tablet 0 02/22/2023 Active Pregabalin 100 MG Oral Capsule (Lyrica) TAKE 1 CAPSULE BY MOUTH TWICE DAILY 60 Capsule 0 02/22/2023 Active documented as of this encounter (statuses as of 03/16/2023) Active Problems Problem Noted Date Diagnosed Date [...] as of this encounter (statuses as of 03/16/2023) Resolved Problems Problem Noted Date Diagnosed Date [...] LUNG, NOT ELSEWHERE CLASSIFIED 06/12/2002 09/14/2018 CHEST [id number] 04/09/200209/2018 ABN FD-INTRATHOR ORG NEC-akbar nodule 03/06/2002 [...] as of this encounter (statuses as of 03/16/2023) Immunizations Name Administration Dates Next Due COVID-19 mRNA, LNP-s, No Pre serve, 2-Dose Series ([employer]) 05/22/2020,05/01/2020 Seasonal Influenza, PF, 6 M & above, IM , (FluLaval or Fluzone) 10/26/2019,12/22/2018,12/28/2017 Seasonal Influenza, Quadriva lent Hd (Fluzone Hd) 01/08/2022 documented as of this encounter Social History Tobacco Use Types Packs/Day Years Used Date Smoking Tobacco: Every Day Cigarettes 0.5 45 Started: 03/19/2003 Smokeless Tobacco: Never Comments:began at age 8, amandeep asif tried to quit 2003, currently one cigarette [...] on file documented as of this encounter Miscellaneous Notes * Telephone Encounter - Queta Guevara OSA - 03/16/2023 2:25 PM EST Rescheduled pt for Tuesday * Telephone Encounter - Queta Guevara OSA - 03/16/2023 1:33 PM EST Patients calling - had time of appointment mixed up for patients Hospital D/C today - would like to reschedule for this afternoon or tomorrow if possible. No appt available on our end. Please call to schedule. documented in this encounter Plan of Treatment Upcoming Encounters Date Type Department Care Team (Late st Contact Info) Description 03/21/2023 9:00 AM EST Office Visit [facility] [address] [facility] [phone] Ajit Moreno MD [address] [facility] [address] 07/05/2023 1:00 PM EDT Office Visit [facility] [address] [place] [phone] JuneAjit MD [address] [place] [address] Scheduled Procedures Name Priority Associated Diagnoses Date/Ti me COLONOSCOPY FLEXIBLE PROXIMAL DIAGNOSTIC Recall History of colon polyps Health Maintenance Due Date Last Done Comments DISCUSS TOBACCO CESSATION (REFER TO SMARTSET #1781) 1955 Pneumococcal Vaccine: 65+ Years (1 - [...] exists LUNG CANCER SCREENING - USE SMARTSET 53996 Completed 11/08/2016, 11/03/2016, 12/22/2015, Additional history exists Hepatitis C Screening Completed 05/31/2017 , 08/07/2015, 05/03/2014 COLONOSCOPY-ANNUAL AGES 18-100 Discontinued 03/18/2021, 03/18/2021, 12/18/2019, Additional history exists VITAMIN D LEVEL ONCE IN A LIFETIME-USE SMARTSET# 40488 Completed 06/16/2021, 05/03/2014 GARDASIL-HPV IMMUNIZATION SERIES Aged [...] Not on filedocumented as of this encounter Advance Directives Latest Code Status [...] 9:12 AM 05/09/2003 10:12 AM Care Teams Pet Walker Relationship Specialty Start Date End Date June, Ajit Sylvester MD [address] [place] [address] PCP - General Family Medicine 03/11/22 documented as of this encounter
--- OUTSIDE RECORDS SUMMARY | 2023-04-04 23:20 | External Medical Summary | Summary of Care ---
Author Name Unknown Organization [facility] Address [address] [place] [address] Phone [phone] Care Team Providers Care Sorting Cows Worker Name Role Phone Ajit Moreno MD Primary Care Provider [phone] Reason for Visit * Reason Onset Date Comments Triage Advice 03/09/2023 Encounter Details Date Type Department Care Team (Late st Contact Info) Description 03/09/2023 Telephone Vascular Surg [facility] [address], [place] [phone] Mundo Alba MD [address], [place] [phone] Triage Advice Allergies Active Allergy Reactions Criticality Noted Date Comments Fluticasone High 02/27/2020 Other reaction(s): lightheadedness and nausea Umeclidinium High 02/27/2020 Other reaction(s): lightheadedness and nausea Vilanterol High 02/27/2020 Other reaction(s): lightheadedness and nausea documented as of this encounter (statuses as of 03/09/2023) Medications Medication Sig Dispensed Refills Start Date [...] as of this encounter (statuses as of 03/09/2023) Active Problems Problem Noted Date Diagnosed Date [...] as of this encounter (statuses as of 03/09/2023) Resolved Problems Problem Noted Date Diagnosed Date [...] LUNG, NOT ELSEWHERE CLASSIFIED 06/12/2002 09/14/2018 CHEST [id number] 04/09/200209/2018 ABN FD-INTRATHOR ORG NEC-akbar nodule 03/06/2002 [...] as of this encounter (statuses as of 03/09/2023) Immunizations Name Administration Dates Next Due COVID-19 mRNA, LNP-s, No Pre serve, 2-Dose Series ([email or web address]) 05/22/2020,05/01/2020 Seasonal Influenza, PF, 6 M & [...] encounter Miscellaneous Notes * Telephone Encounter - Mundo Alba MD - 03/09/2023 9:03 AM EST Vascular Surgery Attending Spoke to [facility] hospitalist this AM in f/u of the encounter last night. I was able to review the CT images on [employer]. There is a focal area of non- occlusive aortic thrombus in the proximal/middescending thoracic aorta. I suspect this is from a ruptured atherosclerotic plaque that developed a nidus of thrombus formation. Can not determine acuity of the finding given no prior films with which to compare. Recommended treating this with aspirin 81 mg daily, high dose statin daily, and Eliquis 5 mg BID. The hospitalist voiced understanding of the recommendations and will initiate the recommendations. I also recommended a f/u CTA of the chest in 3 months. No indication for transfer to [facility]. Mundo Alba MD Section of Vascular [place] [address] [phone] documented in this encounter Plan of Treatment Upcoming Encounters Date Type Department Care Team (Late st Contact Info) Description 03/11/2023 12:00 PM EST Cardiac Studies Cardiac Studies, [address] [address] 03/21/2023 1:00 PM EST Nurse Only Ancillary Department, [place] [address] [facility] [address] [place], Nurse [facility] [address] [facility] [address] 07/05/2023 1:00 PM EDT Office Visit [facility], [place] [address] [facility] [phone] June, Ajit Sylvester MD [address] [facility] [place] [phone] Scheduled Procedures Name Priority Associated Diagnoses Date/Ti me COLONOSCOPY FLEXIBLE PROXIMAL DIAGNOSTIC Recall History of colon polyps Health Maintenance Due Date Last Done Comments DISCUSS TOBACCO CESSATION (REFER TO SMARTSET #2492) 1955 Pneumococcal Vaccine: 65+ Years (1 - [...] exists LUNG CANCER SCREENING - USE SMARTSET 30411 Completed 11/08/2016, 11/03/2016, 12/22/2015, Additional history exists Hepatitis C Screening Completed 05/31/2017 , 08/07/2015, 05/03/2014 COLONOSCOPY-ANNUAL AGES 18-100 Discontinued 03/18/2021, 03/18/2021, 12/18/2019, Additional history exists VITAMIN D LEVEL ONCE IN A LIFETIME-USE SMARTSET# 05810 Completed 06/16/2021, 05/03/2014 GARDASIL-HPV IMMUNIZATION SERIES Aged [...] 9:12 AM 05/09/2003 10:12 AM Care Teams Sorting Cows Worker Relationship Specialty Start Date End Date June, Ajit Sylvester MD [address] [place] [address] PCP - General Family Medicine 03/11/22 documented as of this encounter
--- OUTSIDE RECORDS SUMMARY | 2023-04-04 23:20 | External Medical Summary | Summary of Care ---
Author Name Unknown Organization [facility] Address [address] [place] [address] Phone [phone] Care Team Providers Care Dip Dyer Name Role Phone Ajit Moreno MD Primary Care Provider Encounter Details Date Type Department Care Team (Late st Contact Info) Description 02/28/2023 Orders Only [facility] [address] [place] [address] Ajit Moreno MD [address] [place] [address] Allergies Active Allergy Reactions Criticality [...] Base) MCG/ACT Inhalation Aerosol SolutionIndications: Pulmonary emphysema ([facility]) INHALE TWO PUFFS BY MOUTH EVERY 4 [...] C, by GOLD 2017 classification ([facility]) Inhale 1 Ampule via nebulizer every 4 [...] C, by GOLD 2017 classification ([facility]) TAKE 1 CAPSULE BY MOUTH TWICE DAILY [...] C, by GOLD 2017 classification ([facility]) TAKE 2 TABLETS BY MOUTH EVERY MORNING [...] LUNG, NOT ELSEWHERE CLASSIFIED 06/12/2002 09/14/2018 CHEST [id number] 04/09/200209/2018 ABN FD-INTRATHOR ORG NEC-akbar nodule 03/06/2002 [...] mRNA, LNP-s, No Pre serve, 2-Dose Series ([employer]) 05/22/2020,05/01/2020 Seasonal Influenza, PF, 6 M & [...] Upcoming Encounters Date Type Department Care Team ([facility] Contact Info) Description 03/11/2023 12:00 PM EST Cardiac Studies Cardiac Studies, [address] [phone] 03/16/2023 12:40 PM EST Office Visit [address] [phone] Ajit Moreno MD [address] [place] [address] 03/21/2023 1:00 PM EST Nurse Only Ancillary Department, [address] [phone] [place], Nurse Annual [facility] [address] [place], [place] [phone] 07/05/2023 1:00 PM EDT Office Visit [address] [place] [phone] Ajit Moreno MD [address] [place], [place] [phone] Scheduled Procedures Name Priority Associated Diagnoses Date/Ti me COLONOSCOPY FLEXIBLE PROXIMAL DIAGNOSTIC Recall History of colon polyps Health Maintenance Due Date Last Done Comments DISCUSS TOBACCO CESSATION (REFER TO SMARTSET #5269) 1955 Pneumococcal Vaccine: 65+ Years (1 - [...] exists LUNG CANCER SCREENING - USE SMARTSET 19148 Completed 11/08/2016, 11/03/2016, 12/22/2015, Additional history exists Hepatitis C Screening Completed 05/31/2017 , 08/07/2015, 05/03/2014 COLONOSCOPY-ANNUAL AGES 18-100 Discontinued 03/18/2021, 03/18/2021, 12/18/2019, Additional history exists VITAMIN D LEVEL ONCE IN A LIFETIME-USE SMARTSET# 43269 Completed 06/16/2021, 05/03/2014 GARDASIL-HPV IMMUNIZATION SERIES Aged [...] study not interpreted or resulted by a [facility] or [employer] contracted radiologist. Ajit Moreno MD RADIOLOGY (RAD [...] 9:12 AM 05/09/2003 10:12 AM Care Teams Dip Dyer Relationship Specialty Start Date End Date Ajit Moreno MD [address] [place] [address] PCP - General Family Medicine 03/11/22 documented as of this encounter
--- OUTSIDE RECORDS SUMMARY | 2023-04-04 23:20 | External Medical Summary | Summary of Care ---
Author Name Unknown Organization [facility] Address [address] [place] [address] Phone [phone] Care Team Providers Care Fireman Helper Name Role Phone Ajit Moreno MD Primary Care Provider [phone] Reason for Visit * Reason Onset Date Comments Triage Advice 03/09/2023 Encounter Details Date Type Department Care Team (Late st Contact Info) Description 03/09/2023 Telephone Vascular Surg [facility] [address], [place] [phone] Mundo Alba MD [address] [place], [place] [phone] Triage Advice Allergies Active Allergy Reactions Criticality [...] group C, by GOLD 2017 classification ([facility] Inhale 1 Ampule via [...] group C, by GOLD 2017 classification ([facility]) TAKE 1 CAPSULE BY [...] group C, by GOLD 2017 classification ([facility]) TAKE 2 TABLETS BY [...] LUNG, NOT ELSEWHERE CLASSIFIED 06/12/2002 09/14/2018 CHEST [id number] 04/09/200209/2018 ABN FD-INTRATHOR ORG NEC-akbar nodule 03/06/2002 [...] mRNA, LNP-s, No Pre serve, 2-Dose Series ([employer]) 05/22/2020,05/01/2020 Seasonal Influenza, PF, 6 M & [...] encounter Miscellaneous Notes * Telephone Encounter - Ajit Moreno MD - 03/09/2023 1:41 PM EST Noted. Appreciate the assistance in care. Ajit Moreno MD * Telephone Encounter - Mundo Alba MD - 03/09/2023 6:16 AM EST Vascular Surgery Attending I took a call from the [facility] ED last night around 10 PM about this patient who presented with chest pain and got a CT chest that was read by the radiologist as 12 mm x 6 mm thrombus in proximal descending thoracic aorta. The patient was stable according to the ED physician. I did not have access to the films to review the images. [facility] a [facility] drip. I asked that the images be pushed through, but checking again this AM they still are not here. So Istill do not have any images to review. Will keep checking throughout the day, then will attempt [facility]commun[facility] any further recommendations I might have. Mundo Alba MD Section of Vascular [place] [address] [phone] documented in this encounter Plan of Treatment Upcoming Encounters Date Type Department Care Team (Late st Contact Info) Description 03/11/2023 12:00 PM EST Cardiac Studies Cardiac Studies, [place] [address] [place] [facility] [place] [address] 03/21/2023 1:00 PM EST Nurse Only Ancillary Department, [place] [address] [place] [facility] [place] [address] [place], Nurse Annual Wellness [address] [place], [place] [phone] 07/05/2023 1:00 PM EDT Office Visit Family Practice, [place] [address] [place] [facility] [place] [phone] June, Ajit Sylvester MD [address] [place] [address] Scheduled Procedures Name Priority Associated Diagnoses Date/Ti me COLONOSCOPY FLEXIBLE PROXIMAL DIAGNOSTIC Recall History of colon polyps Health Maintenance Due Date Last Done Comments DISCUSS TOBACCO CESSATION (REFER TO SMARTSET #9241) 1955 Pneumococcal Vaccine: 65+ Years (1 - [...] exists LUNG CANCER SCREENING - USE SMARTSET 85280 Completed 11/08/2016, 11/03/2016, 12/22/2015, Additional history exists Hepatitis C Screening Completed 05/31/2017 , 08/07/2015, 05/03/2014 COLONOSCOPY-ANNUAL AGES 18-100 Discontinued 03/18/2021, 03/18/2021, 12/18/2019, Additional history exists VITAMIN D LEVEL ONCE IN A LIFETIME-USE SMARTSET# 06361 Completed 06/16/2021, 05/03/2014 GARDASIL-HPV IMMUNIZATION SERIES Aged [...] 9:12 AM 05/09/2003 10:12 AM Care Teams Fireman Helper Relationship Specialty Start Date End Date June, Ajit Sylvester MD [address] [place] [facility] [place] [address] PCP - General Family Medicine 03/11/22 documented as of this encounter
--- OUTSIDE RECORDS SUMMARY | 2023-04-04 23:20 | External Medical Summary | Summary of Care ---
Author Name Unknown Organization [facility] Address [address] [place] [address] Phone [phone] Care Team Providers Care Copy Editor Name Role Phone Ajit Moreno MD Primary Care Provider [phone] Reason for Visit * Reason Onset Date Comments Triage Advice 03/09/2023 Encounter Details Date Type Department Care Team (Late st Contact Info) Description 03/09/2023 Telephone Vascular Surg [facility] [address] [place], [place] [phone] Mundo Alba MD [address] [place], [place] [phone] Triage Advice Allergies Active Allergy Reactions Criticality [...] :COPD, group C, by GOLD 2017 classification ([facility]) Inhale 1 Ampule via nebulizer every [...] OPD, group C, by GOLD 2017 classification ([facility]) TAKE 1 CAPSULE BY MOUTH TWICE [...] ns:COPD, group C, by GOLD 2017 classification ([facility]) TAKE 2 TABLETS BY MOUTH EVERY [...] LUNG, NOT ELSEWHERE CLASSIFIED 06/12/2002 09/14/2018 CHEST [id number] 04/09/200209/2018 ABN FD-INTRATHOR ORG NEC-akbar nodule 03/06/2002 [...] mRNA, LNP-s, No Pre serve, 2-Dose Series ([employer]) 05/22/2020,05/01/2020 Seasonal Influenza, PF, 6 M & [...] Attending I took a call from the [facility] ED last night around 10 PM [...] the images. [facility] the [facility] on a heparin drip. I asked that the images be pushed through, but checking again this AM they still are not here. So Istill do not have any images to review. Will keep checking throughout the day, then will attempt tocommunicate [facility] any further recommendations I might have. Mundo Alba MD Section of Vascular [place] [address] [phone] documented in this encounter Plan of Treatment Upcoming Encounters Date Type Department Care Team (Late st Contact Info) Description 03/11/2023 12:00 PM EST Cardiac Studies Cardiac [address] [address] 03/21/2023 1:00 PM EST Nurse Only Ancillary Department, [place] [address] [facility] [place] [address] [place], Nurse Annual Wellness [address] [facility] [place] [address] 07/05/2023 1:00 PM EDT Office Visit Family Practice, [place] [address] [facility] [place] [phone] JuneAjit MD [address] [facility] [place] [id number] Scheduled Procedures Name Priority Associated Diagnoses Date/Ti me COLONOSCOPY FLEXIBLE PROXIMAL DIAGNOSTIC Recall History of colon polyps Health Maintenance Due Date Last Done Comments DISCUSS TOBACCO CESSATION (REFER TO SMARTSET #2372) 1955 Pneumococcal Vaccine: 65+ Years (1 - [...] exists LUNG CANCER SCREENING - USE SMARTSET 48702 Completed 11/08/2016, 11/03/2016, 12/22/2015, Additional history exists Hepatitis C Screening Completed 05/31/2017 , 08/07/2015, 05/03/2014 COLONOSCOPY-ANNUAL AGES 18-100 Discontinued 03/18/2021, 03/18/2021, 12/18/2019, Additional history exists VITAMIN D LEVEL ONCE IN A LIFETIME-USE SMARTSET# 58666 Completed 06/16/2021, 05/03/2014 GARDASIL-HPV IMMUNIZATION SERIES Aged [...] 9:12 AM 05/09/2003 10:12 AM Care Teams Copy Editor Relationship Specialty Start Date End Date June, Ajit Sylvester MD [address] [place] [address] PCP - General Family Medicine 03/11/22 documented as of this encounter
[2023-04-05] MEDS: methylPREDNISolone 40 MG in SYRINGE 0 ML IV SCH (00:45)
[2023-04-05 05:22] LABS: Basophils # (auto) 0.01 K/uL (0.00-0.20); Basophils % (auto) 0.1 %; Hematocrit (blood only) 41.3 % (42.0-52.0); Hemoglobin 14.4 g/dl (14.0-18.0); Immature Granulocytes # (auto) 0.04 K/uL (0.01-0.20); Immature Granulocytes % (auto) 0.4 %; Lymphocytes # (auto) 0.88 K/uL (1.20-3.40); Mean Corpuscular Hemoglobin 31.9 pg (25.0-34.0); Mean Corpuscular Hgb Conc 34.9 g/dL (32.0-36.0); Mean Corpuscular Volume 91.4 fL (80.0-100.0); Mean Platelet Volume 11.7 fL (9.4-12.4); Monocytes # (auto) 0.13 K/uL (0.11-0.59); Monocytes % (auto) 1.3 %; Neutrophils # (auto) 8.69 K/uL (1.40-6.50); Neutrophils % (auto) 89.2 %; Platelet Count 248 K/uL (130-400); RDW Coefficient of Variation 14.9 % (11.5-14.5); RDW Standard Deviation 50.4 fL (36.4-46.3); Red Blood Count 4.52 M/uL (4.70-6.10); White Blood Count 9.75 K/ul (4.8-10.8)
[2023-04-05 05:40] LABS: BUN Creatinine Ratio 20.6 (10-20); Calcium 8.9 mg/dl (8.6-10.3); Creatinine Clr Calc Pharmacy 80.7 ml/min; Est GFR (African American) 91.9 ml/min; Est GFR (Non-African American) 79.3 ml/min; Potassium 3.8 mmol/L (3.5-5.1)
[2023-04-05 05:46] LABS: Troponin I High Sensitivity 2.9 pg/ml (0-20)
[2023-04-05] MEDS ORDERED: predniSONE 20 MG TAB PO SCH (09:00)
[2023-04-05] MEDS: UMECLIDINIUM/VILANTEROL 62.5/25MCG 7 PUFFS/INHALER INH SCH (09:23)
[2023-04-05] MEDS: ASPIRIN 81 MG ECTAB PO SCH (09:23)
[2023-04-05] MEDS: CYANOCOBALAMIN (B-12) 500 MCG TABLET PO SCH (09:24)
[2023-04-05] MEDS: ATORVASTATIN 40 MG TAB PO SCH (09:24)
--- NOTE | 2023-04-05 12:25 | Gastrointestinal Consultation ---
Date of Consultation April 05, 2023 Assessment & Plan (1) Abdominal pain: 67 year old male with history of dyslipidemia, TAYLOR, emphysema, COPD, HH, GERD, ongoing tobacco use, descending aorta thrombus on Eliquis and aspirin, history of PE admitted w/ COPD exacerbation who reports chronic, unchanged, intermittent epigastric cramping pain without report of nausea/vomiting, GERD. No acute GI pathology on current imaging, however there is report of moderate constipation No acute indication for endoscopic evaluation Smoking cessation Continue PPI BID May complete a 14 day course of Carafate GERD dietary and lifestyle changes discussed Start Miralax 1 capful once daily Establish with GI as an outpatient Plan for OP EGD pending clearance given recent proximal descending thoracic aorta thrombus Recall GI as needed. Thank you for allowing us to participate in the care of thi s patient. Please call with any acute changes, questions or concerns. Please see addendum below with additional recommendation from my supervising physician. Supervising Physician Co-Signing Physician Notes I performed a history and physical examination of the patient today, including specifically on physical exam - soft abdomen. I have discussed the patient's management with the advanced practitioner. Please refer to the nurse practitioner's note for the documented findings and plan of care. No acute GI symptoms. Needs OP follow up with GI. Recall if needed. History of Present Illness Reason for Consultation: epigastric pain Requesting Physician: Jose Attending Physician: Preston Garcia MD History of Present Illness 67 year old male with history of dyslipidemia, TAYLOR, emphysema, COPD, HH, GERD, ongoing tobacco use, descending aorta thrombus on Eliquis and aspirin, history of PE admitted through the ED w/ SOB, dizziness - COPD exacerbation. GI was asked to evaluate for epigastric pain. Pt was seen and evaluated, chart reviewed. He is a poor historian and has difficulty recalling his abd pain. Notes that it has been present for many many years. Unchanged. Intermittent. No associated with PO intake. Located upper abd, midline but may radiate under both ribs. Lasts 20/30 minutes when occurs. Feels like cramping sensation. Ther are no associated symptoms. No nausea, vomiting. No food aversion. Reports a good appetite. He has chronic GERD which is maintained on PPI. Denies any GERD symptoms at present. No dysphagia. Stools are moving okay. Denies diarrhea or constipation. No black or bloody stools reported. No weight loss. + tobacco use No alcohol No NSAIDs Uses prednisone frequently given his respiratory conditions CTA 2023: There is no intrahepatic biliary ductal dilatation. The main portal veins appear patent.Gallbladder: Unremarkable.Spleen: Normal in size and attenuation noting heterogeneous arterial phase enhancement. Pancreas: Unremarkable. mild to moderate colonic fecal retention. No bowel obstruction is seen. The appendix is well-visualized and normal. EGD 2021: Normal esophagus. - Small hiatal hernia. - Normal stomach. - Normal duodenal bulb and second portion of the duodenum. - No evidence of ulceration was noted on today's examination. Colon 2021: The examined portion of the terminal ileum appeared normal. - The examined colon appeared normal. - Internal hemorrhoids. - The examination was otherwise normal on direct and retroflexion views. Allergies Allergy/AdvReac Type Severity Reaction Status Date / Time fluticasone furoate Allergy Intermediate lightheadedness Verified 03/08/23 21:30 [From Trelegy Ellipta] and nausea umeclidinium Allergy Intermediate lightheadedness Verified 03/08/23 21:30 [From Trelegy Ellipta] and nausea vilanterol Allergy Intermediate lightheadedness Verified 03/08/23 21:30 [From Trelegy Ellipta] and nausea Home Medications Medication Instructions Recorded Confirmed Type pregabalin 100 mg capsule (Lyrica) 100 mg PO BID 10/16/17 04/04/23 History pantoprazole 40 mg tablet,delayed 40 mg PO BID 30 days #60 tabs 03/02/21 04/04/23 Rx release (Protonix) meclizine 12.5 mg tablet 12.5 mg PO TID PRN Dizziness 06/28/21 04/04/23 History prednisone 20 mg tablet 40 mg PO QAM PRN RESCUE KIT 04/05/22 04/04/23 History bupropion HCl 150 mg tablet,12 hr 150 mg PO BID 04/07/22 04/04/23 History sustained-release (Wellbutrin SR) ondansetron 8 mg disintegrating 8 mg PO Q8H PRN Nausea 04/07/22 04/04/23 History tablet albuterol sulfate 90 mcg/actuation 2 puff inhalation Q4H PRN 12/29/22 04/04/23 History aerosol inhaler Shortness Of Breath Or Wheezing clobetasol 0.05 % topical cream 1 applic topical BID PRN Rash 12/29/22 04/04/23 History levalbuterol HCl 1.25 mg/3 mL 1.25 mg inhalation Q4H PRN Wheezing 12/29/22 04/04/23 History solution for nebulization triamcinolone acetonide 0.1 % 1 applic topical BID PRN Rash 12/29/22 04/04/23 History topical cream umeclidinium 62.5 mcg-vilanterol 1 inh inhalation DAILY 12/29/22 04/04/23 History 25 mcg/actuation powdr for inhalation (Anoro Ellipta) cyanocobalamin (vitamin B-12) 1,000 mcg PO QAM 03/08/23 04/04/23 History 1,000 mcg tablet (Vitamin B-12) apixaban 5 mg tablet (Eliquis) 5 mg PO BID #60 tabs 03/09/23 04/04/23 Rx aspirin 81 mg tablet,delayed 81 mg PO QAM #30 tabs 03/11/23 04/04/23 Rx release atorvastatin 80 mg tablet (Lipitor) 80 mg PO DAILY #30 tabs 03/11/23 04/04/23 Rx Patient History Medical History Acute respiratory failure with hypoxemia Chronic respiratory failure On oxygen at night in the past - but no longer needs per patient Hx of migraines Sleep apnea No device History of COVID-19 2019, moderate symptoms > resolved 2020, mild symptoms > resolved Post-nasal drip Chronic - stable HLD (hyperlipidemia) TAYLOR (obstructive sleep apnea) Cannot tolerate device Anxiety Pneumothorax Hx- complication from pain injection- resolved COPD, moderate Breathing stable Neuropathy GERD (gastroesophageal reflux disease) Well controlled and stable Histoplasmosis 2002- treated Diaphragmatic hernia Thoracic spinal stenosis Surgical History History of esophagogastroduodenoscopy (EGD) Hx of colonoscopy History of open reduction and internal fixation (ORIF) procedure right shoulder History of total replacement of left shoulder joint History of sinus surgery History of placement of chest tube History of hand surgery Left femoral shaft fracture Dutch placed H/O total hip arthroplasty left side H/O elbow surgery H/O exploratory thoracotomy "Left thoracotomy wedge biopsy of left upper lobe with excision of lesion or nodule & frozen section 2002" [facility] open no mesh [facility]" Family History Father Heart disease Hypertension Brother Cancer Hypertension Stroke Heart disease Mother Cancer Other Leukemia No family history of bleeding disorder Non-Hodgkin lymphoma Denies family history of Hearing loss Asthma Social History Smoking Status: Current every day smoker Tobacco Type: Cigarettes Age Started Using Tobacco: 11; packs per day: 1; Cigarettes Per Day: 10 cigs /day; Second Hand Exposure: No; Do You Dip or Chew Tobacco: No; Hx Alcohol Use: No Hx Substance Use: No Preferred Language: Armenian Communication Ability: Effective Respiratory Tech Required: No Beliefs That Will Affect Care: None marital status: Current Living Situation: Spouse current occupational status: unemployed Feels Safe at Home: Yes Safety Concerns: Feels Safe At This Time Assistive Devices: Oxygen - at Night Review of Systems Review of Systems: All systems reviewed & are unremarkable except as noted in HPI & below Physical Exam Constitutional: WD/WN, vitals as above Respiratory: normal respiratory effort Cardiovascular: Rate/Rhythm: + tachycardic Gastrointestinal (Abdomen): normal bowel sounds, soft, nontender, no hepatosplenomegaly Skin: no rashes, warm and dry Results & Data Vital Signs (Past 12 Hours) Vital Signs Pulse Pulse Resp BP BP Pulse Ox Pulse Ox 04/05/23 11:00 103 H 16 109/52 L 92 04/05/23 10:36 99 H 20 112/72 92 04/05/23 07:14 99 H 16 178/122 H 94 04/05/23 07:01 102 H 18 96 04/05/23 05:00 100 H 16 114/59 L 96 04/05/23 04:37 96 04/05/23 04:00 108 H 17 118/75 95 04/05/23 03:00 101 H 17 105/66 04/05/23 02:00 99 H 17 107/73 96 04/05/23 01:00 93 H 20 121/73 95 04/05/23 00:56 96 H 22 94 O2 Del Method O2 Del Method O2 Flow Rate O2 Flow Rate 04/05/23 11:00 04/05/23 10:36 04/05/23 07:14 Oxymask 2 04/05/23 07:01 Oxymask 4 04/05/23 05:00 Oxymask 2 04/05/23 04:37 Oxymask 2 04/05/23 04:00 Oxymask 2 04/05/23 03:00 04/05/23 02:00 Oxymask 2 04/05/23 01:00 Oxymask 2 04/05/23 00:56 Oxymask 4 Laboratory Results 04/05/23 04/04/23 04/04/23 Range/Units 04:25 22:46 14:37 WBC 9.75 (4.8-10.8) K/ul RBC 4.52 L (4.70-6.10) M/uL Hgb 14.4 14.3 (14.0-18.0) g/dl POC Hgb 14.3 (14.0-18.0) g/dl Hct 41.3 L 42.1 (42.0-52.0) % POC Hct 42 (42-52) % MCV 91.4 (80.0-100.0) fL MCH 31.9 (25.0-34.0) pg MCHC 34.9 (32.0-36.0) g/dL RDW Std Deviation 50.4 H (36.4-46.3) fL RDW Coeff of Jaz 14.9 H (11.5-14.5) % Plt Count 248 (130-400) K/uL MPV 11.7 (9.4-12.4) fL Immature Gran % (Auto) 0.4 % Neut % (Auto) 89.2 % Lymph % (Auto) 9.0 % Braxton % (Auto) 1.3 % Eos % (Auto) 0.0 % Baso % (Auto) 0.1 % Neut # (Auto) 8.69 H (1.40-6.50) K/uL Lymph # (Auto) 0.88 L (1.20-3.40) K/uL Braxton # (Auto) 0.13 (0.11-0.59) K/uL Eos # (Auto) 0.00 (0.00-0.50) K/uL Baso # (Auto) 0.01 (0.00-0.20) K/uL Immature Gran # (Auto) 0.04 (0.01-0.20) K/uL PT (9.0-12.0) Seconds INR (0.9-1.1) APTT (21-31) Seconds PTT Ratio POC Sodium 144 (135-144) mmol/L Sodium 144 (136-145) mmol/L POC Potassium 4.0 (3.3-5.0) mmol/L Potassium 3.8 (3.5-5.1) mmol/L POC Chloride 105 (101-112) mmol/L Chloride 108 H (98-107) mmol/L Carbon Dioxide 25 (21-32) mmol/L POC Total CO2 25 (24-31) mmol/L Anion Gap 11 (3-11) POC Anion Gap 18.0 (16-25) mmol/L POC BUN 17 (7-18) mg/dl BUN 20 (6-23) mg/dl Creatinine 0.97 (0.6-1.4) mg/dl POC Creatinine 0.8 (0.6-1.3) mg/dl Est Cr Clr Drug Dosing 80.7 ml/min Est GFR ( Amer) 91.9 ml/min Est GFR (Non-Af Amer) 79.3 ml/min BUN/Creatinine Ratio 20.6 H (10-20) Glucose 146 H (70-99(Fasting)) mg/dl POC Glucose (other) 91 (70-99) mg/dl Calcium 8.9 (8.6-10.3) mg/dl POC Ioniz Calcium Madalyn 1.17 (1.12-1.32) mmol/l Total Bilirubin (0.2-1.0) mg/dl AST (13-39) U/L ALT (7-52) U/L Alkaline Phosphatase (34-104) U/L Troponin I High Sens 2.9 3.4 (0-20) pg/ml Total Protein (6.0-8.3) gm/dl Albumin (3.4-5.0) gm/dl Globulin (2.5-4.0) gm/dl Albumin/Globulin Ratio (0.9-2) Lipase (11-82) U/L Adenovirus (PCR) (NotDetected) B. pertussis DNA (PCR) (NotDetected) B.parapertussis DNA PCR (NotDetected) C. pneumoniae DNA (PCR) (NotDetected) Coronavirus OC43 (PCR) (NotDetected) Coronavirus HKU1 (PCR) (NotDetected) Coronavirus 229E (PCR) (NotDetected) SARS-CoV-2 (PCR) (NotDetected) Coronavirus NL63 (PCR) (NotDetected) Human Metapneumovir PCR (NotDetected) Influenza Type A (PCR) (NotDetected) Influenza Type B (PCR) (NotDetected) M. pneumoniae (PCR) (NotDetected) Parainfluenza 1 (PCR) (NotDetected) Parainfluenza 2 (PCR) (NotDetected) Parainfluenza 3 (PCR) (NotDetected) Parainfluenza 4 (PCR) (NotDetected) RSV (PCR) (NotDetected) Entero/Rhino (PCR) (NotDetected) 04/04/23 Range/Units 14:30 WBC 7.48 (4.8-10.8) K/ul RBC 4.44 L (4.70-6.10) M/uL Hgb 13.7 L (14.0-18.0) g/dl POC Hgb (14.0-18.0) g/dl Hct 41.4 L (42.0-52.0) % POC Hct (42-52) % MCV 93.2 (80.0-100.0) fL MCH 30.9 (25.0-34.0) pg MCHC 33.1 (32.0-36.0) g/dL RDW Std Deviation 51.2 H (36.4-46.3) fL RDW Coeff of Jaz 14.7 H (11.5-14.5) % Plt Count 243 (130-400) K/uL MPV 11.5 (9.4-12.4) fL Immature Gran % (Auto) 0.4 % Neut % (Auto) 55.8 % Lymph % (Auto) 27.7 % Braxton % (Auto) 12.0 % Eos % (Auto) 3.6 % Baso % (Auto) 0.5 % Neut # (Auto) 4.17 (1.40-6.50) K/uL Lymph # (Auto) 2.07 (1.20-3.40) K/uL Braxton # (Auto) 0.90 H (0.11-0.59) K/uL Eos # (Auto) 0.27 (0.00-0.50) K/uL Baso # (Auto) 0.04 (0.00-0.20) K/uL Immature Gran # (Auto) 0.03 (0.01-0.20) K/uL PT 10.8 (9.0-12.0) Seconds INR 1.0 (0.9-1.1) APTT 26 (21-31) Seconds PTT Ratio 0.9 POC Sodium (135-144) mmol/L Sodium 141 (136-145) mmol/L POC Potassium (3.3-5.0) mmol/L Potassium 4.1 (3.5-5.1) mmol/L POC Chloride (101-112) mmol/L Chloride 109 H (98-107) mmol/L Carbon Dioxide 28 (21-32) mmol/L POC Total CO2 (24-31) mmol/L Anion Gap 4 (3-11) POC Anion Gap (16-25) mmol/L POC BUN (7-18) mg/dl BUN 18 (6-23) mg/dl Creatinine 0.75 (0.6-1.4) mg/dl POC Creatinine (0.6-1.3) mg/dl Est Cr Clr Drug Dosing 104.4 ml/min Est GFR ( Amer) 108.5 ml/min Est GFR (Non-Af Amer) 93.6 ml/min BUN/Creatinine Ratio 24.0 H (10-20) Glucose 90 (70-99(Fasting)) mg/dl POC Glucose (other) (70-99) mg/dl Calcium 8.9 (8.6-10.3) mg/dl POC Ioniz Calcium Madalyn (1.12-1.32) mmol/l Total Bilirubin 0.3 (0.2-1.0) mg/dl AST 39 (13-39) U/L ALT 56 H (7-52) U/L Alkaline Phosphatase 84 (34-104) U/L Troponin I High Sens 5.1 (0-20) pg/ml Total Protein 6.6 (6.0-8.3) gm/dl Albumin 3.9 (3.4-5.0) gm/dl Globulin 2.7 (2.5-4.0) gm/dl Albumin/Globulin Ratio 1.4 (0.9-2) Lipase 20 (11-82) U/L Adenovirus (PCR) Not Detected (NotDetected) B. pertussis DNA (PCR) Not Detected (NotDetected) B.parapertussis DNA PCR Not Detected (NotDetected) C. pneumoniae DNA (PCR) Not Detected (NotDetected) Coronavirus OC43 (PCR) Not Detected (NotDetected) Coronavirus HKU1 (PCR) Not Detected (NotDetected) Coronavirus 229E (PCR) Not Detected (NotDetected) SARS-CoV-2 (PCR) Not Detected (NotDetected) Coronavirus NL63 (PCR) Not Detected (NotDetected) Human Metapneumovir PCR Not Detected (NotDetected) Influenza Type A (PCR) Not Detected (NotDetected) Influenza Type B (PCR) Not Detected (NotDetected) M. pneumoniae (PCR) Not Detected (NotDetected) Parainfluenza 1 (PCR) Not Detected (NotDetected) Parainfluenza 2 (PCR) Not Detected (NotDetected) Parainfluenza 3 (PCR) Not Detected (NotDetected) Parainfluenza 4 (PCR) Not Detected (NotDetected) RSV (PCR) Not Detected (NotDetected) Entero/Rhino (PCR) Not Detected (NotDetected)
[2023-04-05] MEDS: SUCRALFATE 1 GM/10 ML UDC PO SCH (12:27)
--- NOTE | 2023-04-05 14:52 | Pulmonary Consultation ---
Date of Consultation April 05, 2023 Assessment & Plan (1) Acute exacerbation of chronic obstructive airways disease: His COPD symptoms have rapidly improved. Will transition him to oral prednisone starting tomorrow at a dose of 40 mg daily. This can be continued for total of 7 days. Continue with nebulized budesonide and an Anoro Ellipta. Patient has PFTs reviewed from 07/06/2022 which revealed a mild airflow obstruction with an FEV1 of 80% predicted. He continues to smoke cigarettes and smoking cessation is strongly encouraged and likely a significant precipitating factor to his recurrent COPD exacerbations. Recommend pulmonary rehab as an outpatient as well and continued low-dose lung cancer screening. He will need follow-up with his primary mercury washer, Dr. Irwin. I suspect that he will likely be able to be discharged from the hospital in the next 1 to 2 days. Thank you for the consult. Will continue to follow with you (2) Tobacco abuse: Smoking cessation strongly encouraged especially in light of the patient's recurrent COPD exacerbations and bronchitis and severe vascular issues including recent nonocclusive aortic thrombosis. 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 Patient notes that yesterday he was unable to catch his breath and ultimately came to the hospital. He does note that his breathing has improved today with DuoNeb treatments and IV corticosteroids. He is concerned about his pulse oximetry readings as they have been dipping to the mid 80s with him sitting up. He denies any shortness of breath when this occurs. He also endorses chronic left-sided chest pain which she relates to his previous thoracotomy incision. He is currently receiving IV methylprednisone 40 mg 3 times daily, budesonide nebulizer therapy and a neuro Ellipta. He notes that he was given samples of Trelegy in the office, but did not feel well while on Trelegy. He cannot specify exactly what the side effects were. He notes that he has been tolerating Anoro as an outpatient. Of note, he was discharged from the hospital 03/12/2023 for a thrombus noted in his proximal descending thoracic aorta measuring 1.2 cm and placed on Eliquis. He had a chest CTA this admission which reveals bronchial wall thickening bilaterally, moderate emphysema and pneumatocele in his right upper lobe Allergies Allergy/AdvReac Type Severity Reaction Status Date / Time fluticasone furoate Allergy Intermediate lightheadedness Verified 03/08/23 21:30 [From Trelegy Ellipta] and nausea umeclidinium Allergy Intermediate lightheadedness Verified 03/08/23 21:30 [From Trelegy Ellipta] and nausea vilanterol Allergy Intermediate lightheadedness Verified 03/08/23 21:30 [From Trelegy Ellipta] and nausea Home Medications Medication Instructions Recorded Confirmed Type pregabalin 100 mg capsule (Lyrica) 100 mg PO BID 10/16/17 04/04/23 History pantoprazole 40 mg tablet,delayed 40 mg PO BID 30 days #60 tabs 03/02/21 04/04/23 Rx release (Protonix) meclizine 12.5 mg tablet 12.5 mg PO TID PRN Dizziness 06/28/21 04/04/23 History prednisone 20 mg tablet 40 mg PO QAM PRN RESCUE KIT 04/05/22 04/04/23 History bupropion HCl 150 mg tablet,12 hr 150 mg PO BID 04/07/22 04/04/23 History sustained-release (Wellbutrin SR) ondansetron 8 mg disintegrating 8 mg PO Q8H PRN Nausea 04/07/22 04/04/23 History tablet albuterol sulfate 90 mcg/actuation 2 puff inhalation Q4H PRN 12/29/22 04/04/23 History aerosol inhaler Shortness Of Breath Or Wheezing clobetasol 0.05 % topical cream 1 applic topical BID PRN Rash 12/29/22 04/04/23 History levalbuterol HCl 1.25 mg/3 mL 1.25 mg inhalation Q4H PRN Wheezing 12/29/22 04/04/23 History solution for nebulization triamcinolone acetonide 0.1 % 1 applic topical BID PRN Rash 12/29/22 04/04/23 History topical cream umeclidinium 62.5 mcg-vilanterol 1 inh inhalation DAILY 12/29/22 04/04/23 History 25 mcg/actuation powdr for inhalation (Anoro Ellipta) cyanocobalamin (vitamin B-12) 1,000 mcg PO QAM 03/08/23 04/04/23 History 1,000 mcg tablet (Vitamin B-12) apixaban 5 mg tablet (Eliquis) 5 mg PO BID #60 tabs 03/09/23 04/04/23 Rx aspirin 81 mg tablet,delayed 81 mg PO QAM #30 tabs 03/11/23 04/04/23 Rx release atorvastatin 80 mg tablet (Lipitor) 80 mg PO DAILY #30 tabs 03/11/23 04/04/23 Rx Patient History Medical History Acute respiratory failure with hypoxemia Chronic respiratory failure On oxygen at night in the past - but no longer needs per patient Hx of migraines Sleep apnea No device History of COVID-19 2019, moderate symptoms > resolved 2020, mild symptoms > resolved Post-nasal drip Chronic - stable HLD (hyperlipidemia) TAYLOR (obstructive sleep apnea) Cannot tolerate device Anxiety Pneumothorax Hx- complication from pain injection- resolved COPD, moderate Breathing stable Neuropathy GERD (gastroesophageal reflux disease) Well controlled and stable Histoplasmosis 2002- treated Diaphragmatic hernia Thoracic spinal stenosis Surgical History History of esophagogastroduodenoscopy (EGD) Hx of colonoscopy History of open reduction and internal fixation (ORIF) procedure right shoulder History of total replacement of left shoulder joint History of sinus surgery History of placement of chest tube History of hand surgery Left femoral shaft fracture Dutch placed H/O total hip arthroplasty left side H/O elbow surgery H/O exploratory thoracotomy "Left thoracotomy wedge biopsy of left upper lobe with excision of lesion or nodule & frozen section 2002" H/O hernia repair "[facility] incarcerated supraumbilical hernia repair open no mesh 02/17/01" Family History Father Heart disease Hypertension Brother Cancer Hypertension Stroke Heart disease Mother Cancer Other Leukemia No family history of bleeding disorder Non-Hodgkin lymphoma Denies family history of Hearing loss Asthma Social History Smoking Status: Current every day smoker Tobacco Type: Cigarettes Age Started Using Tobacco: 11; packs per day: 1; Cigarettes Per Day: 10 cigs /day; Second Hand Exposure: No; Do You Dip or Chew Tobacco: No; Hx Alcohol Use: No Hx Substance Use: No Preferred Language: American Communication Ability: Effective Value Analyst Required: No Beliefs That Will Affect Care: None marital status: Current Living Situation: Spouse current occupational status: unemployed Feels Safe at Home: Yes Safety Concerns: Feels Safe At This Time Assistive Devices: Oxygen - at Night Review of Systems Review of Systems: All systems reviewed & are unremarkable except as noted in HPI & below Physical Exam Physical Exam: Constitutional: Patient appears to be of their stated age. Patient is in no apparent distress. Patient is well-developed. Eyes: Pupils are equal round and reactive to light. Conjunctivae are normal. Anicteric sclera. Ears nose, mouth and throat: Mallampati class 2. Normal posterior oropharynx. Uvula is midline. Neck: Trachea is midline. Visual inspection is normal. Respiratory: Clear to auscultation bilaterally. No use of accessory muscles. No significant clubbing noted. Cardiovascular: Regular rate and rhythm. No murmurs. No edema. Gastrointestinal: Normal bowel sounds, soft, nontender and nondistended. No hepatosplenomegaly noted. Musculoskeletal: No cyanosis. Patient is able to move all extremities. Strength is 5 out of 5 in the upper and lower extremities. Skin: No rashes, warm dry and intact. Neurologic: No obvious focal neurological deficits seen. Psychiatric: Alert and oriented x3 with a euthymic affect. Results & Data Results & Data Vital Signs (Past 12 Hours) Vital Signs Pulse Pulse Resp BP BP Pulse Ox Pulse Ox 04/05/23 13:40 115 H 25 H 94 04/05/23 13:00 105 H 19 109/81 97 04/05/23 11:00 103 H 16 109/52 L 92 04/05/23 10:36 99 H 20 112/72 92 04/05/23 07:14 99 H 16 178/122 H 94 04/05/23 07:01 102 H 18 96 04/05/23 05:00 100 H 16 114/59 L 96 04/05/23 04:37 96 04/05/23 04:00 108 H 17 118/75 95 04/05/23 03:00 101 H 17 105/66 O2 Del Method O2 Del Method O2 Flow Rate O2 Flow Rate 04/05/23 13:40 Room Air 04/05/23 13:00 04/05/23 11:00 04/05/23 10:36 04/05/23 07:14 Oxymask 2 04/05/23 07:01 Oxymask 4 04/05/23 05:00 Oxymask 2 04/05/23 04:37 Oxymask 2 04/05/23 04:00 Oxymask 2 04/05/23 03:00 PG Care Time/CCT Total # of Minutes Spent Total Time Spent with Patient: Total time spent is greater than 50% in coordination of care (as documented) at patient's floor/unit and/or counseling patient: Coding Level of Care Code 92608 INT INP/OBS CARE MIN Diagnoses Acute exacerbation of chronic obstructive airways disease J44.1 Tobacco abuse Z72.0
--- NOTE | 2023-04-05 16:42 | Hospitalist Progress Note ---
Date of Service April 05, 2023 Assessment & Plan (1) COPD exacerbation: Plan 67-year-old male with history of descending aorta thrombus on Eliquis and aspirin, COPD, History of PE, smoker, obstructive sleep apnea, dyslipidemia, GERD, presenting with shortness of breath and dizziness for 1 week. Possible COPD exacerbation CT chest showing bronchial wall thickening, emphysema but no pneumonia, PE, aortic dissection BioFire negative Will give Solumedrol IV 40mg q8h Xopenex/Atrovent every 6 hours Pulmicort twice daily Hypertonic saline twice daily Lasix 20 mg IV Will also get troponin level x 2 Echocardiogram 04/05 will order Pulmonology consult continue Solumedrol, Nebs q6h, Pulmicort BID, Hypertonic Saline Troponins negative Echo: LV wall motion normal, EF 60-65%, no wall mural thrombus Descending aorta thrombus CT chest: No dissection noted Continue aspirin 81 mg daily, Eliquis 5 mg p.o. twice daily Lipitor 80 mg daily GERD reports intermittent epigastric pain possible PUD add Sucralfate QID Continue Protonix 40 mg twice daily GI consulted Mood disorder Continue propafenone 150 mg twice daily DVT prophylaxis Already on Eliquis which will be continued Disposition Lives at home anticipate d/c home when medically stable Admission and Anticipated Discharge Date Admission Date: April 04, 2023 Subjective ff up for COPD exacerbation, etc seen resting in bed, comfortable off o2 supplement states breathing is improved compared to yesterday still having some dry cough no chest pain but does report intermittent epigastric pain no melena/hematochezia no other new symptoms Review of Systems Review of Systems: all noted and negative except for above Physical Exam Physical Exam: General- oriented x 3, not in distress, speaks in sentences with no effort or accessory muscle use Eyes- anicteric Neck- no JVD Lungs- mild scattered wheeze BL distant breath sounds BL Heart- normal rate, regular rhythm; no murmurs Abdomen- normal bowel sounds, nondistended, soft, no tenderness Extremities- no pretibial edema, no calf tenderness Neuro- alert, oriented x 3; no gross focal neurologic deficits Skin- warm & dry Results & Data Results & Data Vital Signs (Past 12 Hours) Vital Signs Temp Pulse Pulse Pulse Resp BP BP 04/05/23 15:47 108 H 04/05/23 15:17 36.7 C 111 H 18 119/73 04/05/23 13:40 115 H 25 H 04/05/23 13:00 105 H 19 109/81 04/05/23 11:00 103 H 16 109/52 L 04/05/23 10:36 99 H 20 112/72 04/05/23 07:14 99 H 16 04/05/23 07:01 102 H 18 04/05/23 05:00 100 H 16 114/59 L BP Pulse Ox O2 Del Method O2 Flow Rate 04/05/23 15:47 04/05/23 15:17 94 Room Air 04/05/23 13:40 94 Room Air 04/05/23 13:00 97 04/05/23 11:00 92 04/05/23 10:36 92 04/05/23 07:14 178/122 H 94 Oxymask 2 04/05/23 07:01 96 Oxymask 4 04/05/23 05:00 96 Oxymask 2 all noted and reviewed including below
[2023-04-06] MEDS: predniSONE 20 MG TAB PO SCH (08:42)
--- NOTE | 2023-04-06 11:18 | Pulmonology Progress Note ---
Date of Service April 06, 2023 Assessment & Plan (1) Acute exacerbation of chronic obstructive airways disease: Plan: His COPD symptoms have rapidly improved. Continue oral prednisone for total of 7 days. He can transition back to Trelegy as an outpatient. I do not think he had any actual orders allergies or adverse events related to Trelegy. Patient is willing to retrial this. Patient has PFTs reviewed from 07/06/2022 which revealed a mild airflow obstruction with an FEV1 of 80% predicted. He continues to smoke cigarettes and smoking cessation is strongly encouraged and likely a significant precipitating factor to his recurrent COPD exacerbatio ns. Recommend pulmonary rehab as an outpatient as well and continued low-dose lung cancer screening. 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 Irwin. Patient is stable for discharge home today. Pulmonary to sign off. Please call with questions (2) Tobacco abuse: Plan: Smoking cessation strongly encouraged especially in light of the patient's recurrent COPD exacerbations and bronchitis and severe vascular issues including recent nonocclusive aortic thrombosis. Admission and Anticipated Discharge Date Admission Date: April 04, 2023 Subjective Shortness of breath has improved significantly, but he continues to have some mild shortness of breath with exertion. Denies any adverse, chills or night sweats. He has an occasional cough. No hemoptysis. No chest pain. Review of Systems Review of Systems: All systems reviewed & are unremarkable except as noted in HPI & below Physical Exam Physical Exam: Constitutional: Patient appears to be of their stated age. Patient is in no apparent distress. Patient is well-developed. Eyes: Pupils are equal round and reactive to light. Conjunctivae are normal. Anicteric sclera. Ears nose, mouth and throat: Mallampati class 2. Normal posterior oropharynx. Uvula is midline. Neck: Trachea is midline. Visual inspection is normal. Respiratory: Clear to auscultation bilaterally. No use of accessory muscles. No significant clubbing noted. Cardiovascular: Regular rate and rhythm. No murmurs. No edema. Gastrointestinal: Normal bowel sounds, soft, nontender and nondistended. No hepatosplenomegaly noted. Musculoskeletal: No cyanosis. Patient is able to move all extremities. Strength is 5 out of 5 in the upper and lower extremities. Skin: No rashes, warm dry and intact. Neurologic: No obvious focal neurological deficits seen. Psychiatric: Alert and oriented x3 with a euthymic affect. Results & Data Results & Data Vital Signs (Past 12 Hours) Vital Signs Temp Pulse Pulse Resp BP Pulse Ox Pulse Ox 04/06/23 10:44 04/06/23 08:09 36.3 C L 76 15 121/68 98 04/06/23 07:30 79 18 93 04/06/23 05:55 76 04/06/23 04:06 36.7 C 80 18 123/69 95 04/06/23 04:00 92 04/06/23 00:40 76 18 92 04/06/23 00:21 92 H 18 132/66 92 O2 Del Method O2 Del Method O2 Flow Rate 04/06/23 10:44 Room Air 04/06/23 08:09 Nebulizer 9 04/06/23 07:30 Room Air 04/06/23 05:55 04/06/23 04:06 Room Air 04/06/23 04:00 Room Air 04/06/23 00:40 Room Air 04/06/23 00:21 Room Air PG Care Time/CCT Total # of Minutes Spent Total Time Spent with Patient: Total time spent is greater than 50% in coordination of care (as documented) at patient's floor/unit and/or counseling patient: Coding Level of Care Code 61398 SUB INP/OBS CARE 03/03MIN Diagnoses Acute exacerbation of chronic obstructive airways disease J44.1 Tobacco abuse Z72.0
[2023-04-06] MEDS ORDERED: AMMONIUM LACTATE 12% LOTION 225 GM BTL EXT STA (15:00)
--- NOTE | 2023-04-06 18:41 | Discharge Summary ---
Discharge Summary Date of Service April 06, 2023 Notes For Next Care Provider Medication Changes From Visit -Continue prednisone 40mg daily x 6 more days -Transition to Trelegy inhaler -Continue 12 more days of 1g QID sucralafate -Continue PPI BID Admission HPI Per Admitting Provider 67-year-old male with history of descending aorta thrombus on Eliquis and aspirin, COPD, History of PE, smoker, obstructive sleep apnea, dyslipidemia, GERD, presenting with shortness of breath and dizziness for 1 week. Patient was recently admitted to [facility] and was discharged on March 12, 2023 after being evaluated and treated for Ascending aorta several months. 2 days after discharge, patient started to develop shortness of breath with exertion, associate with dizziness and intermittent chest pain. At the ER, patient received with stable vital signs overall, saturating more than 90% on room air. CT chest: No aortic dissection, acute PE CT abdomen pelvis: Also not revealing any acute findings CT head: Negative for acute process as well Troponin negative x 1 EKG no signs of acute ischemia or infarct BioFire: Negative Presentation felt to be secondary to possible COPD exacerbation and he was given Solu-Medrol 60 mg IV, albuterol nebulized treatment, pantoprazole and famotidine Patient referred to hospitalist service for further evaluation and treatment. Admission Exam Per Admitting Provider General- oriented x 3, not in distress, speaks in sentences with no effort or accessory muscle use Head- atraumatic Eyes- PERRL, EOMI, anicteric ENT- oropharynx clear Neck- supple, no JVD, no adenopathy, no thyromegaly; carotids +2/2, no bruits appreciated Lungs-positive intermittent wheeze bilaterally, also mild rales at the bases with distant breath sounds Heart- normal rate, regular rhythm; no murmur, no gallop, no rub appreciated Abdomen- normal bowel sounds, nondistended, soft, nontender, no masses or hepatosplenomegaly Extremities-mild pretibial edema, no calf tenderness; peripheral pulses intact Neuro- alert, oriented x 3; CN 2-12 grossly intact; motor 5/5 bilaterally;sensation 100% on all extremities; no other gross focal neurologic deficits Skin- warm & dry Principal Dx & Hospital Course #1 = Principal Diagnosis (1) COPD exacerbation: Plan Mr. Franks is a 67-year-old male with history of descending aorta thrombus on Eliquis and aspirin, COPD, History of PE, smoker, obstructive sleep apnea, dyslipidemia, GERD, presenting with shortness of breath and dizziness for 1 week. Patient noted to have COPD exacerbation. It was strongly encouraged patient discontinue smoking, as he still smokes 1/2-1ppd. 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 Pulmonary evaluated patient with plans for longer steroid burst 40mg x 7days po total and transition to Trelegy. #Acute COPD Exacberation Echo: LV wall motion normal, EF 60-65%, no wall mural thrombus CT chest showing bronchial wall thickening, emphysema but no pneumonia, PE, aortic dissection BioFire negative s/p solumedrol, started on PO prednisone for & days on 04/06 continued Nebs q6h, Pulmicort BID, Hypertonic Saline Transitioned on Trelegy upon discharge #Descending aorta thrombus CT chest: No dissection noted Continue aspirin 81 mg daily, Eliquis 5 mg p.o. twice daily Lipitor 80 mg daily #GERD reports intermittent epigastric pain possible PUD Continue Sucralfate QID Continue Protonix 40 mg twice daily GI consulted--plan to establish as OP #Mood disorder Continue propafenone 150 mg twice daily #Tobacco use -Patient does not wish to quit, counseled and offered pharmacologic aids On day of discharge, patient reports feeling much improved and denied any colleen rns. Verbalized understanding that smoking and paint fumes are likely precipitating factors and patient should avoid as much as possible. Discharge Exam Constitutional WD/WN, vitals as above Respiratory normal respiratory effort, lungs clear to auscultation Cardiovascular RRR, no murmur, no edema Gastrointestinal (Abdomen) normal bowel sounds, soft, nontender, no hepatosplenomegaly Musculoskeletal no cyanosis or clubbing, extremities motor strength 5/5 Updated Medication List Medication Instructions Recorded Confirmed Type pregabalin 100 mg capsule (Lyrica) 100 mg PO BID 10/16/17 04/04/23 History meclizine 12.5 mg tablet 12.5 mg PO TID PRN Dizziness 06/28/21 04/04/23 History prednisone 20 mg tablet 40 mg PO QAM PRN RESCUE KIT 04/05/22 04/04/23 History bupropion HCl 150 mg tablet,12 hr 150 mg PO BID 04/07/22 04/04/23 History sustained-release (Wellbutrin SR) ondansetron 8 mg disintegrating 8 mg PO Q8H PRN Nausea 04/07/22 04/04/23 History tablet albuterol sulfate 90 mcg/actuation 2 puff inhalation Q4H PRN 12/29/22 04/04/23 History aerosol inhaler Shortness Of Breath Or Wheezing clobetasol 0.05 % topical cream 1 applic topical BID PRN Rash 12/29/22 04/04/23 History levalbuterol HCl 1.25 mg/3 mL 1.25 mg inhalation Q4H PRN Wheezing 12/29/22 04/04/23 History solution for nebulization triamcinolone acetonide 0.1 % 1 applic topical BID PRN Rash 12/29/22 04/04/23 History topical cream cyanocobalamin (vitamin B-12) 1,000 mcg PO QAM 03/08/23 04/04/23 History 1,000 mcg tablet (Vitamin B-12) apixaban 5 mg tablet (Eliquis) 5 mg PO BID #60 tabs 03/09/23 04/04/23 Rx aspirin 81 mg tablet,delayed 81 mg PO QAM #30 tabs 03/11/23 04/04/23 Rx release atorvastatin 80 mg tablet (Lipitor) 80 mg PO DAILY #30 tabs 03/11/23 04/04/23 Rx fluticasone fur. 100 mcg-umeclid 1 inh inhalation DAILY #60 ea 04/06/23 Rx 62.5 mcg-vilant 25 mcg inhalat.powder (Trelegy Ellipta) pantoprazole 40 mg tablet,delayed 40 mg PO BID 30 days #60 tabs 04/06/23 Rx release (Protonix) prednisone 20 mg tablet 40 mg (2 x 20 mg) PO DAILY #12 tabs 04/06/23 Rx sucralfate 100 mg/mL oral 1 g (10 mL) PO ACHS 12 days #120 mL 04/06/23 Rx suspension Hospital Stay Data Consultations 04/04/23 16:40 ED Decision to Admit Stat 04/05/23 12:04 Consult Gastroenterology Routine Consult Pulmonology Routine Diagnostic Imagining Performed 04/04/23 14:21 CT angio abdomen pelvis w con Stat CT angio chest w con Stat 04/04/23 14:23 CT head/brain wo con Stat Pending Results Patient Have Any Pending Studies at Discharge: No Discharge Instructions Given to Patient (Per Discharging Provider) You were admitted for COPD exacerbation You will continue prednisone 40mg for 6 more days, starting tomorrow 04/07/2023. You will start the Trelegy inhaler, 1 inhalation daily. You were also seen by GI for intermittent epigastric cramping pain and reflux issues: -Continue Pantoprazole 40mg two times a day -Trial of complete a 14 day course of Carafate (sucralfate) 1gram with meals and at bedtime Start Miralax 1 capful once daily (over the counter) Establish with GI as an outpatient Total Time Total Time Spent Total Time Spent (In Minutes): 45
== END 2023-04-06 15:58 | disposition home or self-care (01) | DRG 192 ==
LOC: ED 14:07 → SUATTDRO 17:15 → EDINP 17:15 → 2N 19:39

== ENCOUNTER 2023-05-17 20:14 | Inpatient (IN) ==
[2023-05-17 21:01] LABS: Basophils # (auto) 0.07 K/uL (0.00-0.20); Basophils % (auto) 0.5 %; Eosinophils # (auto) 0.31 K/uL (0.00-0.50); Eosinophils % (auto) 2.2 %; Hematocrit (blood only) 42.7 % (42.0-52.0); Hemoglobin 14.7 g/dl (14.0-18.0); Immature Granulocytes # (auto) 0.14 K/uL (0.01-0.20); Lymphocytes # (auto) 2.89 K/uL (1.20-3.40); Lymphocytes % (auto) 20.5 %; Mean Corpuscular Hemoglobin 31.7 pg (25.0-34.0); Mean Corpuscular Hgb Conc 34.4 g/dL (32.0-36.0); Mean Corpuscular Volume 92.2 fL (80.0-100.0); Mean Platelet Volume 11.3 fL (9.4-12.4); Monocytes # (auto) 1.28 K/uL (0.11-0.59); Monocytes % (auto) 9.1 %; Neutrophils # (auto) 9.41 K/uL (1.40-6.50); Neutrophils % (auto) 66.7 %; Platelet Count 285 K/uL (130-400); RDW Coefficient of Variation 14.5 % (11.5-14.5); Red Blood Count 4.63 M/uL (4.70-6.10)
[2023-05-17 21:07] LABS: Albumin Globulin Ratio 1.4 (0.9-2); BUN Creatinine Ratio 19.7 (10-20); Bilirubin,Total 0.6 mg/dl (0.2-1.0); Creatinine Clr Calc Pharmacy 64.7 ml/min; Est GFR (African American) 69.7 ml/min; Est GFR (Non-African American) 60.1 ml/min; Globulin 2.9 gm/dl (2.5-4.0); Potassium 3.9 mmol/L (3.5-5.1); Total Protein 6.9 gm/dl (6.0-8.3)
[2023-05-17 21:13] LABS: Troponin I High Sensitivity 7.9 pg/ml (0-20)
[2023-05-17 21:17] LABS: Partial Thromboplastin Ratio 0.9; Partial Thromboplastin Time 24 Seconds (21-31); Prothrombin Time 11.2 Seconds (9.0-12.0)
[2023-05-18] MEDS: ALBUT/IPRATROP 3MG/0.5MG NEB 3 ML VIAL NEB STA ×3 (00:22→03:30)
[2023-05-18] MEDS: DOXYCYCLINE HYCLATE 100 MG CAP PO STA (00:22)
[2023-05-18] MEDS: methylPREDNISolone 125 MG/2 ML VIAL IV STA (00:24)
--- NOTE | 2023-05-18 00:45 | Emergency Department Note ---
Impression & Plan SOB (shortness of breath), Bilateral wheezing, COPD (chronic obstructive pulmonary disease) ED Provider Note NAME: ANGELES BURLESON AGE: 67 SEX: Male INFORMANT: Patient ED PROVIDER(S): Gerry Olivo MD CHIEF COMPLAINT: Shortness of breath PLAN: Disposition: Admitted Outpatient prescription management: none Referral: none MEDICAL DECISION MAKING: Patient presented because of shortness of breath. His cardiac blood work was unremarkable. ECG did not show any acute ischemia. Patient's blood cell count was mildly elevated at 14,000. Coags normal. LFTs were minimally elevated. Patient does not have any abdominal symptoms. Chest x-ray did not reveal any focal infiltrate. Bio fire testing ordered. Patient was given Solu-Medrol, DuoNeb, and doxycycline. He typically will do a rescue pack when he gets this way but did not do one today. Patient given second neb treatment and observed. He was reassessed and still wheezing. Discussed inpatient treatment and he is in agreement. Consultation made with Dr. Granda, Hospitalist. Discussed case and he evaluated pt for admission. Care/management discussed with: curriculum manager Level of care consideration(s): After review of the information above and other included data, I feel the patient requires escalation of care to admission. Triage Nursing notes: reviewed and agree them. Vital Signs: reviewed and remarkable for no significant abnormalities Additional History obtained from: none Chronic Medical/Social Conditions affecting care: COPD Prior/ Outside/ External records reviewed: none Differential Diagnosis: Reactive airway disease, pneumonia, pneumothorax, COPD, CHF, infections, cardiac ischemia, pulmonary embolism, musculoskeletal, gastrointestinal, as well as other pathologies. Diagnostics, independently interpreted by me: EC Lead ECG performed and revealed Normal sinus rhythm at 100 beats per minute, normal [place], QRS normal. No elevation or depression. No PACs or PVCs Cardiac Monitoring: Cardiac monitoring ordered by me: The patient was placed on continuous cardiac monitoring and observed. It revealed a normal sinus rhythm at 80 beats per minute without ectopy or evidence of dysrhythmia. Medical decision rules: none Imaging studies: Chest x-ray. Findings: A chest x-ray was performed and revealed no pneumothorax, effusion, infiltrate, pulmonary edema, free air under the diaphragm, or wide mediastinum. HPI: 67 year old Male arrives for evaluation of shortness of breath. This started yesterday and is worsening today. Patient states he has a history of COPD and this feels the same.. The patient also notes the following associated symptoms, mild cough, wheezing. The patient has taken no medication for relieving factors. Current pain is rated as 5/10. Patient notes his ribs hurt with breathing but denies any baseline chest pain. Pt denies LOC, headache, fevers, chills, diaphoresis, visual changes, neck pain, chest pain, URI symptoms, sick contacts nausea, vomiting, abdominal pain, back pain, melena, hematochezia, urinary symptoms, numbness, weakness, lymphadenopathy, rash, or other complaints. . PAST MEDICAL HISTORY: See Below, COPD PAST SURGICAL HISTORY: See Below, SOCIAL HISTORY: See Below, HOME MEDICATIONS: See Below ALLERGIES: See Below VITALS: See Below PHYSICAL EXAMINATION: GENERAL: Awake, alert, dyspneic-appearing, in no distress HENT: Normocephalic, atraumatic. Oropharynx unremarkable. EYES: Normal conjunctiva. Sclera non-icteric. NECK: Inspection normal. Non-tender. Supple. No nuchal rigidity. FROM. No masses. RESPIRATORY: Bilateral wheezes. No rales. Increased respiratory effort. CARDIAC: Normal rate. Normal rhythm. No murmurs. No rubs. Extremities warm and well perfused. Pulses equal. No JVD. GI: Soft, non-distended. No tenderness to palpation. No rebound or guarding. No masses. RECTAL: Deferred. MUSCULOSKELETAL: Atraumatic. Chest examination reveals no tenderness. The back is symmetrical on inspection without obvious abnormality. There is no CVA tenderness to palpation. No joint edema. LOWER EXTREMITIES: Calves are equal size bilaterally and non-tender. trace edema. Chronic venous discoloration. NEURO: Normal sensorium. No sensory or motor deficits noted. SKIN: No rash or jaundice noted. PROCEDURES: none CRITICAL CARE: none OBSERVATION NOTE: none Past Med/Surg History Medical History (Updated 05/18/23 @ 00:45 by Gerry Olivo MD) Acute respiratory failure with hypoxemia Chronic respiratory failure On oxygen at night in the past - but no longer needs per patient Hx of migraines Sleep apnea No device History of COVID-19 2019, moderate symptoms > resolved 2020, mild symptoms > resolved Post-nasal drip Chronic - stable HLD (hyperlipidemia) TAYLOR (obstructive sleep apnea) Cannot tolerate device Anxiety Pneumothorax Hx- complication from pain injection- resolved COPD, moderate Breathing stable Neuropathy GERD (gastroesophageal reflux disease) Well controlled and stable Histoplasmosis 2002- treated Diaphragmatic hernia Thoracic spinal stenosis Surgical History History of esophagogastroduodenoscopy (EGD) Hx of colonoscopy History of open reduction and internal fixation (ORIF) procedure right shoulder History of total replacement of left shoulder joint History of sinus surgery History of placement of chest tube History of hand surgery Left femoral shaft fracture Dutch placed H/O total hip arthroplasty left side H/O elbow surgery H/O exploratory thoracotomy "Left thoracotomy wedge biopsy of left upper lobe with excision of lesion or nodule & frozen section 2002" H/O hernia repair [facility] incarcerated supraumbilical hernia repair open no mesh 02/17/01" Family History Father Heart disease Hypertension Brother Cancer Hypertension Stroke Heart disease Mother Cancer Other Leukemia No family history of bleeding disorder Non-Hodgkin lymphoma Denies family history of Hearing loss Asthma Social History (Updated 04/25/23 @ 10:10 by Zoila Bain LPN) Smoking Status: Current every day smoker Tobacco Type: Cigarettes Age Started Using Tobacco: 11; packs per day: 1; Cigarettes Per Day: 10 cigs /day; Second Hand Exposure: No; Do You Dip or Chew Tobacco: No; Hx Alcohol Use: No Hx Substance Use: No Preferred Language: Belarusian Communication Ability: Effective Patrol Agent Required: No Beliefs That Will Affect Care: None marital status: Current Living Situation: Spouse current occupational status: unemployed Feels Safe at Home: Yes Assistive Devices: Oxygen - at Night and Walker Allergies Allergies Allergy/AdvReac Type Severity Reaction Status Date / Time fluticasone furoate Allergy Intermediate lightheadedness Verified 04/25/23 10:10 [From Trelegy Ellipta] and nausea umeclidinium Allergy Intermediate lightheadedness Verified 04/25/23 10:10 [From Trelegy Ellipta] and nausea vilanterol Allergy Intermediate lightheadedness Verified 04/25/23 10:10 [From Trelegy Ellipta] and nausea Home Meds Home Medications Medication Instructions Recorded Confirmed pregabalin 100 mg capsule (Lyrica) 100 mg PO BID 10/16/17 05/17/23 meclizine 12.5 mg tablet 12.5 mg PO TID PRN Dizziness 06/28/21 05/18/23 prednisone 20 mg tablet 40 mg PO QAM PRN RESCUE KIT 04/05/22 05/18/23 bupropion HCl 150 mg tablet,12 hr 150 mg PO BID 04/07/22 05/18/23 sustained-release (Wellbutrin SR) ondansetron 8 mg disintegrating 8 mg PO Q8H PRN Nausea 04/07/22 05/18/23 tablet clobetasol 0.05 % topical cream 1 applic topical BID PRN Rash 12/29/22 05/18/23 levalbuterol HCl 1.25 mg/3 mL 1.25 mg inhalation Q4H PRN Wheezing 12/29/22 05/17/23 solution for nebulization triamcinolone acetonide 0.1 % 1 applic topical BID PRN Rash 12/29/22 05/18/23 topical cream cyanocobalamin (vitamin B-12) 1,000 mcg PO QAM 03/08/23 05/18/23 1,000 mcg tablet (Vitamin B-12) Previous Rx's Medication Instructions Recorded aspirin 81 mg tablet,delayed 81 mg PO QAM #30 tabs 03/11/23 release atorvastatin 80 mg tablet (Lipitor) 80 mg PO DAILY #30 tabs 03/11/23 pantoprazole 40 mg tablet,delayed 40 mg PO BID 30 days #60 tabs 04/06/23 release (Protonix) albuterol sulfate 90 mcg/actuation 2 puff inhalation Q4H PRN 04/26/23 aerosol inhaler Shortness Of Breath Or Wheezing #8.5 grams fluticasone fur. 100 mcg-umeclid 1 inh inhalation DAILY #60 ea 04/26/23 62.5 mcg-vilant 25 mcg inhalat.powder (Trelegy Ellipta) guaifenesin 600 mg tablet, 600 mg PO BID PRN congestion #60 04/26/23 extended release 12 hr (Mucinex) tabs Results & Data (ED) Vital Signs Vital Signs - 24 hr 05/17/23 20:20 05/17/23 22:50 05/17/23 23:45 Temperature 36.9 C Temperature Source Temporal Artery Scan Pulse Rate 98 H Pulse Rate [Right Finger] 92 H Respiratory Rate 19 18 Respiratory Effort / Characteristics Non-Labored Spontaneous Non-Labored Spontaneous Respiratory Depth Normal Normal Respiratory Pattern Regular Regular Blood Pressure 124/80 Blood Pressure [Right Arm] 97/68 L Blood Pressure Mean 94 Blood Pressure Mean [Right Arm] 77 Blood Pressure Position [Right Arm] Sitting Pulse Oximetry 94 95 95 Oxygen Delivery Method Room Air Room Air Room Air Sepsis Recent Fever Within 48 Hours No Sepsis New/Unexplained Change in Mental Status N/A Sepsis Action Taken by Nursing No Action Required 05/17/23 23:46 05/17/23 23:48 05/17/23 23:54 Temperature Temperature Source Pulse Rate 83 Pulse Rate [Right Finger] 81 Respiratory Rate 16 Respiratory Effort / Characteristics Respiratory Depth Respiratory Pattern Blood Pressure Blood Pressure [Right Arm] 116/71 Blood Pressure Mean Blood Pressure Mean [Right Arm] 86 Blood Pressure Position [Right Arm] Pulse Oximetry 96 96 Oxygen Delivery Method Room Air Sepsis Recent Fever Within 48 Hours Sepsis New/Unexplained Change in Mental Status Sepsis Action Taken by Nursing Laboratory Data 05/19/23 06:48 05/19/23 06:48 Lab Results 05/17/23 05/18/23 Range/Units 20:33 00:38 WBC 14.10 H (4.8-10.8) K/ul RBC 4.63 L (4.70-6.10) M/uL Hgb 14.7 (14.0-18.0) g/dl Hct 42.7 (42.0-52.0) % MCV 92.2 (80.0-100.0) fL MCH 31.7 (25.0-34.0) pg MCHC 34.4 (32.0-36.0) g/dL RDW Std Deviation 49.0 H (36.4-46.3) fL RDW Coeff of Jaz 14.5 (11.5-14.5) % Plt Count 285 (130-400) K/uL MPV 11.3 (9.4-12.4) fL Immature Gran % (Auto) 1.0 % Neut % (Auto) 66.7 % Lymph % (Auto) 20.5 % [place] % (Auto) 9.1 % Eos % (Auto) 2.2 % Baso % (Auto) 0.5 % Neut # (Auto) 9.41 H (1.40-6.50) K/uL Lymph # (Auto) 2.89 (1.20-3.40) K/uL [place] # (Auto) 1.28 H (0.11-0.59) K/uL Eos # (Auto) 0.31 (0.00-0.50) K/uL Baso # (Auto) 0.07 (0.00-0.20) K/uL Immature Gran # (Auto) 0.14 (0.01-0.20) K/uL PT 11.2 (9.0-12.0) Seconds INR 1.0 (0.9-1.1) APTT 24 (21-31) Seconds PTT Ratio 0.9 Sodium 141 (136-145) mmol/L Potassium 3.9 (3.5-5.1) mmol/L Chloride 104 (98-107) mmol/L Carbon Dioxide 29 (21-32) mmol/L Anion Gap 8 (3-11) BUN 24 H (6-23) mg/dl Creatinine 1.22 (0.6-1.4) mg/dl Est Cr Clr Drug Dosing 64.7 ml/min Est GFR ( Amer) 69.7 ml/min Est GFR (Non-Af Amer) 60.1 ml/min BUN/Creatinine Ratio 19.7 (10-20) Glucose 105 H (70-99(Fasting)) mg/dl Calcium 8.0 L (8.6-10.3) mg/dl Magnesium 0.8 L* (1.7-2.4) mg/dl Total Bilirubin 0.6 (0.2-1.0) mg/dl AST 57 H (13-39) U/L ALT 90 H (7-52) U/L Alkaline Phosphatase 80 (34-104) U/L Troponin I High Sens 7.9 (0-20) pg/ml B-Natriuretic Peptide 40 (0-100) pg/ml Total Protein 6.9 (6.0-8.3) gm/dl Albumin 4.0 (3.4-5.0) gm/dl Globulin 2.9 (2.5-4.0) gm/dl Albumin/Globulin Ratio 1.4 (0.9-2) Adenovirus (PCR) Not Detected (NotDetected) B. pertussis DNA (PCR) Not Detected (NotDetected) B.parapertussis DNA PCR Not Detected (NotDetected) C. pneumoniae DNA (PCR) Not Detected (NotDetected) Coronavirus OC43 (PCR) Not Detected (NotDetected) Coronavirus HKU1 (PCR) Not Detected (NotDetected) Coronavirus 229E (PCR) Not Detected (NotDetected) SARS-CoV-2 (PCR) Not Detected (NotDetected) Coronavirus NL63 (PCR) Not Detected (NotDetected) Human Metapneumovir PCR Not Detected (NotDetected) Influenza Type A (PCR) Not Detected (NotDetected) Influenza Type B (PCR) Not Detected (NotDetected) M. pneumoniae (PCR) Not Detected (NotDetected) Parainfluenza 1 (PCR) Not Detected (NotDetected) Parainfluenza 2 (PCR) Not Detected (NotDetected) Parainfluenza 3 (PCR) Not Detected (NotDetected) Parainfluenza 4 (PCR) Not Detected (NotDetected) RSV (PCR) Not Detected (NotDetected) Entero/Rhino (PCR) Not Detected (NotDetected) Administered Medications Aspirin (Aspirin 81 Mg Ectab) 81 mg PO [facility] Stop: 06/17/23 08:59 Last Admin: 05/19/23 09:56 Dose: 81 mg Documented By: Admin: 05/18/23 09:35 Dose: 81 mg Documented By: Atorvastatin Calcium (Atorvastatin 40 Mg Tab) 80 mg PO DAILY YUN Stop: 06/17/23 08:59 Last Admin: 05/19/23 09:53 Dose: 80 mg Documented By: Admin: 05/18/23 11:11 Dose: 80 mg Documented By: Admin: 05/18/23 09:35 Dose: 80 mg Documented By: Bupropion HCl (Bupropion Sr 150 Mg Tabcr) 150 mg PO BID YUN Stop: 06/17/23 08:59 Last Admin: 05/19/23 19:28 Dose: 150 mg Documented By: Admin: 05/19/23 09:55 Dose: 150 mg Documented By: Admin: 05/18/23 21:49 Dose: 150 mg Documented By: Admin: 05/18/23 09:35 Dose: 150 mg Documented By: MR Cyanocobalamin (Cyanocobalamin (B-12) 500 Mcg Tablet) 1,[address] [facility] Stop: 06/17/23 08:59 Last Admin: 05/19/23 09:55 Dose: 1,000 mcg Documented By: Admin: 05/18/23 09:35 Dose: 1,000 mcg Documented By: MR Doxycycline Hyclate (Doxycycline Hyclate 100 Mg Cap) 100 mg PO BID YUN Stop: 05/25/23 20:59 Last Admin: 05/19/23 19:29 Dose: 100 mg Documented By: Admin: 05/19/23 10:02 Dose: 100 mg Documented By: Admin: 05/18/23 21:49 Dose: 100 mg Documented By: TATIANNA Enoxaparin Sodium (Enoxaparin Inj 40 Mg/0.4 Ml Syr) [facility]: 06/17/23 08:59 Last Admin: 05/19/23 11:21 Dose: 40 mg Documented By: Admin: 05/18/23 09:36 Dose: 40 mg Documented By: MR Fluticasone Furoate (Fluticasone Furoate 100mcg 14 Puffs/Inhaler) 1 puffs INH DAILY YUN Stop: 06/17/23 08:59 Last Admin: 05/19/23 09:57 Dose: 1 puffs Documented By: Admin: 05/18/23 09:19 Dose: Not Given Documented By: MR Ipratropium Winifred (Ipratropium Winifred Neb Soln 0.02% 0.5mg/2.5ml Vial) 0.[address] [facility] Stop: 06/17/23 06:59 Last Admin: 05/19/23 19:59 Dose: 0.5 mg Documented By: Admin: 05/19/23 13:02 Dose: 0.5 mg Documented By: Admin: 05/19/23 07:01 Dose: 0.5 mg Documented By: Admin: 05/19/23 01:34 Dose: 0.5 mg Documented By: NDSamantha Admin: 05/18/23 19:07 Dose: 0.5 mg Documented By: Admin: 05/18/23 12:50 Dose: 0.5 mg Documented By: Admin: 05/18/23 07:10 Dose: 0.5 mg Documented By: KYP Levalbuterol HCl (Levalbuterol 1.25 Mg/3 Ml Neb) 1.25 mg NEB Q6R YUN Stop: 06/17/23 06:59 Last Admin: 05/19/23 19:59 Dose: 1.25 mg Documented By: Admin: 05/19/23 13:01 Dose: 1.25 mg Documented By: Admin: 05/19/23 07:01 Dose: 1.25 mg Documented By: Admin: 05/19/23 01:34 Dose: 1.25 mg Documented By: Admin: 05/18/23 19:07 Dose: 1.25 mg Documented By: Admin: 05/18/23 12:50 Dose: 1.25 mg Documented By: Admin: 05/18/23 07:10 Dose: 1.25 mg Documented By: SAMEER Oxycodone HCl (Oxycodone Hcl Ir 5 Mg Tab (Immediate Release)) 5 mg PO Q4H PRN PRN Reason: Pain Stop: 06/01/23 04:08 Last Admin: 05/19/23 16:59 Dose: 5 mg Documented By: HANH Pantoprazole Sodium (Pantoprazole 40 Mg Tab) 40 mg PO BID YUN Stop: 06/17/23 08:59 Last Admin: 05/19/23 19:28 Dose: 40 mg Documented By: Admin: 05/19/23 09:55 Dose: 40 mg Documented By: Admin: 05/18/23 21:49 Dose: 40 mg Documented By: Admin: 05/18/23 09:35 Dose: 40 mg Documented By: Prednisone (Prednisone 20 Mg Tab) 40 mg PO DAILY YUN Stop: 05/23/23 08:59 Last Admin: 05/19/23 09:53 Dose: 40 mg Documented By: HANH Pregabalin (Pregabalin 100 Mg Cap) 100 mg PO BID YUN Stop: 06/17/23 08:59 Last Admin: 05/19/23 19:28 Dose: 100 mg Documented By: Admin: 05/19/23 10:02 Dose: 100 mg Documented By: Admin: 05/18/23 21:49 Dose: 100 mg Documented By: Admin: 05/18/23 09:36 Dose: 100 mg Documented By: MR Umeclidinium/Vilanterol (Umeclidinium/Vilanterol 62.5/25mcg 7 Puffs/Inhaler) 1 puffs INH DAILY YUN Stop: 06/17/23 08:59 Last Admin: 05/19/23 09:56 Dose: 1 puffs Documented By: Admin: 05/18/23 09:18 Dose: Not Given Documented By: MR Discontinued Medications Albuterol (Albut/Ipratrop 3mg/0.5mg Neb 3 Ml Vial) 3 ml NEB NOW STA; Protocol Stop: 05/18/23 00:12 Last Admin: 05/18/23 00:22 Dose: 3 ml Documented By: SHA Albuterol (Albut/Ipratrop 3mg/0.5mg Neb 3 Ml Vial) 3 ml NEB NOW STA; Protocol Stop: 05/18/23 01:48 Last Admin: 05/18/23 02:04 Dose: 3 ml Documented By: SHA Albuterol (Albut/Ipratrop 3mg/0.5mg Neb 3 Ml Vial) 3 ml NEB NOW STA; Protocol Stop: 05/18/23 03:01 Last Admin: 05/18/23 03:30 Dose: 3 ml Documented By: SHA Doxycycline Hyclate (Doxycycline Hyclate 100 Mg Cap) 100 mg PO NOW STA Stop: 05/18/23 00:12 Last Admin: 05/18/23 00:22 Dose: 100 mg Documented By: SHA Doxycycline Hyclate 100 mg/ (Dextrose) 100 mls @ 50 mls/hr IV NOW STA Stop: 05/18/23 05:20 Last Infusion: 05/18/23 06:31 Dose: Infused Documented By: Admin: 05/18/23 04:08 Dose: 50 mls/hr Documented By: SHA Magnesium Sulfate/Dextrose (Magnesium Sulfate / D5w) 1 gm in 100 mls @ 50 mls/hr IV ONE ONE Stop: 05/18/23 05:29 Last Infusion: 05/18/23 06:04 Dose: Infused Documented By: Admin: 05/18/23 03:46 Dose: 50 mls/hr Documented By: SHA Potassium Chloride 10 meq/ (Lactated Ringer's) 1,005 mls @ 60 mls/hr IV .[id number] ONE Stop: 05/18/23 20:09 Last Infusion: 05/18/23 21:02 Dose: Infused Documented By: Admin: 05/18/23 04:17 Dose: 60 mls/hr Documented By: SHA Magnesium Sulfate/Dextrose (Magnesium Sulfate / D5w) 1 gm in 100 mls @ 50 mls/hr IV Q2H YUN Stop: 05/18/23 10:14 Last Infusion: 05/18/23 12:28 Dose: Infused Documented By: Admin: 05/18/23 10:16 Dose: 50 mls/hr Documented By: Infusion: 05/18/23 10:04 Dose: Infused Documented By: Admin: 05/18/23 08:04 Dose: 50 mls/hr Documented By: Infusion: 05/18/23 08:04 Dose: Infused Documented By: Admin: 05/18/23 06:06 Dose: 50 mls/hr Documented By: SHA Ioversol (Optiray 320 125ml) 125 ml IV ONCE ONE Stop: 05/18/23 04:58 Last Admin: 05/18/23 04:57 Dose: 118 ml Documented By: JASMEET Methylprednisolone (Methylprednisolone 125 Mg/2 Ml Vial) 125 mg IV NOW STA Stop: 05/18/23 00:12 Last Admin: 05/18/23 00:24 Dose: 125 mg Documented By: SHA Discharge Plan Visit Data Chief Complaint: Shortness of Breath/Dyspnea Stated Complaint: SOB, CHEST PRESSURE/CENTER ED Provider: Gerry Olivo Discharge Problem: SOB (shortness of breath), Bilateral wheezing, COPD (chronic obstructive pulmonary disease) Patient Disposition: Admitted As Inpatient Discharge Instructions Interventions: ED Discharge Assessment Last Done: 05/18/23 05:28
[2023-05-18 02:54] LABS: Adenovirus PCR Not Detected (NotDetected); Bordetella parapertussis PCR Not Detected (NotDetected); Bordetella pertussis PCR Not Detected (NotDetected); Chlamydia pneumoniae PCR Not Detected (NotDetected); Coronavirus 229E PCR Not Detected (NotDetected); Coronavirus CoV-2 (COVID19)PCR Not Detected (NotDetected); Coronavirus HKU1 PCR Not Detected (NotDetected); Coronavirus NL63 PCR Not Detected (NotDetected); Coronavirus OC43PCR Not Detected (NotDetected); Human Metapneumovirus PCR Not Detected (NotDetected); Influenza A PCR Not Detected (NotDetected); Influenza B PCR Not Detected (NotDetected); Mycoplasma pneumoniae PCR Not Detected (NotDetected); Parainfluenza Virus 1 PCR Not Detected (NotDetected); Parainfluenza Virus 2 PCR Not Detected (NotDetected); Parainfluenza Virus 3 PCR Not Detected (NotDetected); Parainfluenza Virus 4 PCR Not Detected (NotDetected); Respiratory Syncytial VirusPCR Not Detected (NotDetected); Rhinovirus/Enterovirus PCR Not Detected (NotDetected)
[2023-05-18] MEDS: MAGNESIUM SULFATE / D5W 1 GM/100 ML BAG IV ONE (03:46)
--- NOTE | 2023-05-18 04:03 | History & Physical Report ---
Date of Service May 18, 2023 Assessment & Plan (1) COPD (chronic obstructive pulmonary disease): Plan: COPD exacerbation/complicated bronchitis, no sepsis for now Rule out recurrent PE given pleuritic chest pain complaints chronic diastolic heart failure, patient euvolemic to dry hx PVD, history of PE/aortic thrombus status post anticoagulation TAYLOR (CPAP intolerance) hyperlipidemia, on statin Rx prediabetes, hemoglobin A1c of 6.07 February 2023 anxiety/mood disorder, patient anxious during exam Transaminitis secondary to NAFLD ongoing tobacco abuse Medical telemetry Doxycycline, nebs RTC, prednisone course CT chest PE study Pulmonary consult if without improvement Nicotine replacement therapy as needed DVT prophylaxis. Lovenox subcu Full code. Text document was generated using [employer] voice recognition software. It may contain grammatical or spelling errors. Kindly contact undersigned for clarification of any documentation item in question. History of Present Illness Chief Complaint: Chest pain, worsening shortness of breath Primary Care Provider: Ajit Moreno MD History obtained from patient and records. Medical history significant for chronic diastolic heart failure (EF 60 to 65%, TTE 2023), COPD, PVD, history of PE/aortic thrombus status post anticoagulation, TAYLOR (CPAP intolerance), histoplasmosis as per records, hyperlipidemia, fatty liver as per records prediabetes, anxiety/mood disorder, ongoing tobacco abuse. Last confinement March 2023 for COPD exacerbation. 2 weeks ago, patient noted intermittent chest pain symptoms. Patient later noted junky cough symptoms and pleuritic chest pain and worsening shortness of breath. Not sure about sick contacts. Denies aspiration. Patient still uncomfortable despite multiple neb treatments at the ER. 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 Allergies Allergy/AdvReac Type Severity Reaction Status Date / Time fluticasone furoate Allergy Intermediate lightheadedness Verified 04/25/23 10:10 [From Trelegy Ellipta] and nausea umeclidinium Allergy Intermediate lightheadedness Verified 04/25/23 10:10 [From Trelegy Ellipta] and nausea vilanterol Allergy Intermediate lightheadedness Verified 04/25/23 10:10 [From Trelegy Ellipta] and nausea Home Medications Medication Instructions Recorded Confirmed Type pregabalin 100 mg capsule (Lyrica) 100 mg PO BID 10/16/17 05/17/23 History meclizine 12.5 mg tablet 12.5 mg PO TID PRN Dizziness 06/28/21 05/18/23 History prednisone 20 mg tablet 40 mg PO QAM PRN RESCUE KIT 04/05/22 05/18/23 History bupropion HCl 150 mg tablet,12 hr 150 mg PO BID 04/07/22 05/18/23 History sustained-release (Wellbutrin SR) ondansetron 8 mg disintegrating 8 mg PO Q8H PRN Nausea 04/07/22 05/18/23 History tablet clobetasol 0.05 % topical cream 1 applic topical BID PRN Rash 12/29/22 05/18/23 History levalbuterol HCl 1.25 mg/3 mL 1.25 mg inhalation Q4H PRN Wheezing 12/29/22 05/17/23 History solution for nebulization triamcinolone acetonide 0.1 % 1 applic topical BID PRN Rash 12/29/22 05/18/23 History topical cream cyanocobalamin (vitamin B-12) 1,000 mcg PO QAM 03/08/23 05/18/23 History 1,000 mcg tablet (Vitamin B-12) aspirin 81 mg tablet,delayed 81 mg PO QAM #30 tabs 03/11/23 05/18/23 Rx release atorvastatin 80 mg tablet (Lipitor) 80 mg PO DAILY #30 tabs 03/11/23 05/18/23 Rx pantoprazole 40 mg tablet,delayed 40 mg PO BID 30 days #60 tabs 04/06/23 05/18/23 Rx release (Protonix) albuterol sulfate 90 mcg/actuation 2 puff inhalation Q4H PRN 04/26/23 05/17/23 Rx aerosol inhaler Shortness Of Breath Or Wheezing #8.5 grams fluticasone fur. 100 mcg-umeclid 1 inh inhalation DAILY #60 ea 04/26/23 05/18/23 Rx 62.5 mcg-vilant 25 mcg inhalat.powder (Trelegy Ellipta) guaifenesin 600 mg tablet, 600 mg PO BID PRN congestion #60 04/26/23 05/18/23 Rx extended release 12 hr (Mucinex) tabs Past Med/Surg History Medical History (Updated 05/18/23 @ 00:45 by Gerry Olivo MD) Acute respiratory failure with hypoxemia Chronic respiratory failure On oxygen at night in the past - but no longer needs per patient Hx of migraines Sleep apnea No device History of COVID-19 2019, moderate symptoms > resolved 2020, mild symptoms > resolved Post-nasal drip Chronic - stable HLD (hyperlipidemia) TAYLOR (obstructive sleep apnea) Cannot tolerate device Anxiety Pneumothorax Hx- complication from pain injection- resolved COPD, moderate Breathing stable Neuropathy GERD (gastroesophageal reflux disease) Well controlled and stable Histoplasmosis 2002- treated Diaphragmatic hernia Thoracic spinal stenosis Surgical History History of esophagogastroduodenoscopy (EGD) Hx of colonoscopy History of open reduction and internal fixation (ORIF) procedure right shoulder History of total replacement of left shoulder joint History of sinus surgery History of placement of chest tube History of hand surgery Left femoral shaft fracture Dutch placed H/O total hip arthroplasty left side H/O elbow surgery H/O exploratory thoracotomy "Left thoracotomy wedge biopsy of left upper lobe with excision of lesion or nodule & frozen section 2002" H/O hernia repair "[facility] incarcerated supraumbilical hernia repair open no mesh 02/17/01" Family History Father Heart disease Hypertension Brother Cancer Hypertension Stroke Heart disease Mother Cancer Other Leukemia No family history of bleeding disorder Non-Hodgkin lymphoma Denies family history of Hearing loss Asthma Social History (Updated 04/25/23 @ 10:10 by Zoila Bain LPN) Smoking Status: Current every day smoker Tobacco Type: Cigarettes Age Started Using Tobacco: 11; packs per day: 1; Cigarettes Per Day: 10 cigs /day; Second Hand Exposure: No; Do You Dip or Chew Tobacco: No; Hx Alcohol Use: No Hx Substance Use: No Preferred Language: Tajik Communication Ability: Effective Paediatric Surgeon Required: No Beliefs That Will Affect Care: None marital status: Current Living Situation: Spouse current occupational status: unemployed Other Information That Helps Us Care for You: No Feels Safe at Home: Yes Safety Concerns: Feels Safe At This Time Assistive Devices: Oxygen - at Night Review of Systems Review of Systems: As per HPI, all other systems reviewed and negative Physical Exam Physical Exam: GENERAL: uncomfortable, obese, anxious, respiratory distress SKIN: Normal color, warm HEENT: Partial alopecia, bespectacled, pink palpebral conjunctivae, no ptosis, dry buccal mucosa, O2 mask in place NECK : Supple, no tenderness CHEST : Decreased breath sounds, expiratory wheezes, no tenderness HEART : RRR, no obvious murmurs ABDOMEN: Some distention, nontender EXTREMITIES : No LE swelling/tenderness, no other conspicuous deformities noted NEUROLOGIC : Coherent, no facial asymmetry, no other gross focality Results & Data Results & Data Vital Signs (Past 12 Hours) Vital Signs Temp Pulse Pulse Resp BP BP Pulse Ox 05/18/23 03:48 82 05/18/23 03:00 85 20 95 05/18/23 02:50 83 19 92 05/18/23 02:40 79 17 98 05/18/23 02:30 80 18 97 05/18/23 02:30 80 18 109/70 97 05/18/23 02:20 77 19 98 05/18/23 02:10 80 16 98 05/18/23 02:00 80 18 92 05/18/23 02:00 80 18 122/76 92 05/18/23 01:50 79 19 91 05/18/23 01:40 76 18 90 05/18/23 01:30 76 18 123/75 90 05/18/23 01:30 74 18 92 05/18/23 01:20 78 19 05/18/23 01:10 78 17 95 05/18/23 01:00 74 20 98 05/18/23 01:00 74 20 118/73 98 05/18/23 00:50 83 17 99 05/18/23 00:40 80 13 98 05/18/23 00:31 79 16 98 05/18/23 00:31 79 16 112/82 98 05/18/23 00:30 82 12 99 05/18/23 00:20 85 24 95 05/18/23 00:10 81 28 H 95 05/18/23 00:00 81 21 93 05/17/23 23:55 82 18 96 05/17/23 23:54 83 05/17/23 23:48 81 16 116/71 96 05/17/23 23:46 96 05/17/23 23:45 95 05/17/23 22:50 92 H 18 97/68 L 95 05/17/23 20:20 36.9 C 98 H 19 124/80 94 O2 Del Method 05/18/23 03:48 05/18/23 03:00 05/18/23 02:50 05/18/23 02:40 05/18/23 02:30 05/18/23 02:30 05/18/23 02:20 05/18/23 02:10 05/18/23 02:00 05/18/23 02:00 05/18/23 01:50 05/18/23 01:40 05/18/23 01:30 05/18/23 01:30 05/18/23 01:20 05/18/23 01:10 05/18/23 01:00 05/18/23 01:00 05/18/23 00:50 05/18/23 00:40 05/18/23 00:31 05/18/23 00:31 05/18/23 00:30 05/18/23 00:20 05/18/23 00:10 05/18/23 00:00 05/17/23 23:55 05/17/23 23:54 05/17/23 23:48 05/17/23 23:46 Room Air 05/17/23 23:45 Room Air 05/17/23 22:50 Room Air 05/17/23 20:20 Room Air Laboratory Results Laboratory Results WBC 14.10 K/ul (4.8-10.8) H 05/17/23 20:33 RBC 4.63 M/uL (4.70-6.10) L 05/17/23 20:33 Hgb 14.7 g/dl (14.0-18.0) 05/17/23 20:33 Hct 42.7 % (42.0-52.0) 05/17/23 20:33 MCV 92.2 fL (80.0-100.0) 05/17/23 20:33 MCH 31.7 pg (25.0-34.0) 05/17/23 20:33 MCHC 34.4 g/dL (32.0-36.0) 05/17/23 20:33 RDW Std Deviation 49.0 fL (36.4-46.3) H 05/17/23 20:33 RDW Coeff of Jaz 14.5 % (11.5-14.5) 05/17/23 20: Plt Count 285 K/uL (130-400) 05/17/23 20: MPV 11.3 fL (9.4-12.4) 05/17/23 20:33 Immature Gran % (Auto) 1.0 % 05/17/23 20: Neut % (Auto) 66.7 % 05/17/23 20: Lymph % (Auto) 20.5 % 05/17/23 20:33 [place] % (Auto) 9.1 % 05/17/23 20:33 Eos % (Auto) 2.2 % 05/17/23 20: Baso % (Auto) 0.5 % 05/17/23 20: Neut # (Auto) 9.41 K/uL (1.40-6.50) H 05/17/23 20:33 Lymph # (Auto) 2.89 K/uL (1.20-3.40) 05/17/23 20:33 [place] # (Auto) 1.28 K/uL (0.11-0.59) H 05/17/23 20:33 Eos # (Auto) 0.31 K/uL (0.00-0.50) 05/17/23 20: Baso # (Auto) 0.07 K/uL (0.00-0.20) 05/17/23 20: Immature Gran # (Auto) 0.14 K/uL (0.01-0.20) 05/17/23 20: PT 11.2 Seconds (9.0-12.0) 05/17/23 20:33 INR 1.0 (0.9-1.1) 05/17/23 20: APTT 24 Seconds (21-31) 05/17/23 20: PTT Ratio 0.9 05/17/23 20:33 Sodium 141 mmol/L (136-145) 05/17/23 20: Potassium 3.9 mmol/L (3.5-5.1) 05/17/23 20: Chloride 104 mmol/L (98-107) 05/17/23 20: Carbon Dioxide 29 mmol/L (21-32) 05/17/23 20:33 Anion Gap 8 (3-11) 05/17/23 20:33 BUN 24 mg/dl (6-23) H 05/17/23 20:33 Creatinine 1.22 mg/dl (0.6-1.4) 05/17/23 20:33 Est Cr Clr Drug Dosing 64.7 ml/min 05/17/23 20:33 Est GFR ( Amer) 69.7 ml/min 05/17/23 20:33 Est GFR (Non-Af Amer) 60.1 ml/min 05/17/23 20:33 BUN/Creatinine Ratio 19.7 (10-20) 05/17/23 20:33 Glucose 105 mg/dl (70-99(Fasting)) H 05/17/23 20: Calcium 8.0 mg/dl (8.6-10.3) L 05/17/23 20: Total Bilirubin 0.6 mg/dl (0.2-1.0) 05/17/23 20:33 AST 57 U/L (13-39) H 05/17/23 20:33 ALT 90 U/L (7-52) H 05/17/23 20:33 Alkaline Phosphatase 80 U/L (34-104) 05/17/23 20:33 Troponin I High Sens 7.9 pg/ml (0-20) 05/17/23 20:33 B-Natriuretic Peptide 40 pg/ml (0-100) 05/17/23 20:33 Total Protein 6.9 gm/dl (6.0-8.3) 05/17/23 20:33 Albumin 4.0 gm/dl (3.4-5.0) 05/17/23 20:33 Globulin 2.9 gm/dl (2.5-4.0) 05/17/23 20:33 Albumin/Globulin Ratio 1.4 (0.9-2) 05/17/23 20:33 Adenovirus (PCR) Not Detected (NotDetected) 05/18/23 00:38 B. pertussis DNA (PCR) Not Detected (NotDetected) 05/18/23 00:38 B.parapertussis DNA PCR Not Detected (NotDetected) 05/18/23 00:38 C. pneumoniae DNA (PCR) Not Detected (NotDetected) 05/18/23 00:38 Coronavirus OC43 (PCR) Not Detected (NotDetected) 05/18/23 00:38 Coronavirus HKU1 (PCR) Not Detected (NotDetected) 05/18/23 00:38 Coronavirus 229E (PCR) Not Detected (NotDetected) 05/18/23 00:38 SARS-CoV-2 (PCR) Not Detected (NotDetected) 05/18/23 00:38 Coronavirus NL63 (PCR) Not Detected (NotDetected) 05/18/23 00:38 Human Metapneumovir PCR Not Detected (NotDetected) 05/18/23 00:38 Influenza Type A (PCR) Not Detected (NotDetected) 05/18/23 00:38 Influenza Type B (PCR) Not Detected (NotDetected) 05/18/23 00:38 M. pneumoniae (PCR) Not Detected (NotDetected) 05/18/23 00:38 Parainfluenza 1 (PCR) Not Detected (NotDetected) 05/18/23 00:38 Parainfluenza 2 (PCR) Not Detected (NotDetected) 05/18/23 00:38 Parainfluenza 3 (PCR) Not Detected (NotDetected) 05/18/23 00:38 Parainfluenza 4 (PCR) Not Detected (NotDetected) 05/18/23 00:38 RSV (PCR) Not Detected (NotDetected) 05/18/23 00:38 Entero/Rhino (PCR) Not Detected (NotDetected) 05/18/23 00:38 Diagnostic Findings Chest x-ray as per my interpretation chronic interstitial changes EKG as per my interpretation : Rate 100, NSR, normal axis, no ischemia
[2023-05-18 04:07] LABS: Magnesium 0.8 mg/dl (1.7-2.4)
[2023-05-18] MEDS: DOXYCYCLINE HYCLATE 100 MG in DEXTROSE 5% MINI-B 100 ML IV STA (04:08)
[2023-05-18] MEDS ORDERED: ACETAMINOPHEN 500 MG TAB PO PRN (04:09)
[2023-05-18] MEDS ORDERED: hydrOXYzine HCl 10 MG TAB PO PRN (04:09)
[2023-05-18] MEDS ORDERED: PROMETHAZINE HCL 6.25 MG in SODIUM CHLORIDE 0.9% 50 ML IV PRN (04:11)
[2023-05-18] MEDS: POTASSIUM CHLORIDE 10 MEQ in LACTATED RINGER'S 1,000 ML IV ONE (04:17)
[2023-05-18 04:53] LABS: Basophils # (auto) 0.04 K/uL (0.00-0.20); Basophils % (auto) 0.3 %; Eosinophils # (auto) 0.04 K/uL (0.00-0.50); Eosinophils % (auto) 0.3 %; Hematocrit (blood only) 40.5 % (42.0-52.0); Hemoglobin 13.8 g/dl (14.0-18.0); Immature Granulocytes # (auto) 0.15 K/uL (0.01-0.20); Immature Granulocytes % (auto) 1.1 %; Lymphocytes % (auto) 9.3 %; Mean Corpuscular Hemoglobin 31.5 pg (25.0-34.0); Mean Corpuscular Hgb Conc 34.1 g/dL (32.0-36.0); Mean Corpuscular Volume 92.5 fL (80.0-100.0); Mean Platelet Volume 11.1 fL (9.4-12.4); Monocytes # (auto) 0.23 K/uL (0.11-0.59); Monocytes % (auto) 1.6 %; Neutrophils # (auto) 12.29 K/uL (1.40-6.50); Neutrophils % (auto) 87.4 %; Platelet Count 258 K/uL (130-400); RDW Coefficient of Variation 14.6 % (11.5-14.5); RDW Standard Deviation 49.5 fL (36.4-46.3); Red Blood Count 4.38 M/uL (4.70-6.10); White Blood Count 14.05 K/ul (4.8-10.8)
[2023-05-18] MEDS: OPTIRAY 320 125ml IV ONE (04:57)
[2023-05-18 05:03] LABS: Albumin Globulin Ratio 1.5 (0.9-2); Albumin Level 3.8 gm/dl (3.4-5.0); BUN Creatinine Ratio 28.2 (10-20); Bilirubin,Total 0.5 mg/dl (0.2-1.0); Calcium 7.7 mg/dl (8.6-10.3); Creatinine Clr Calc Pharmacy 76.6 ml/min; Est GFR (African American) 85.5 ml/min; Est GFR (Non-African American) 73.8 ml/min; Globulin 2.6 gm/dl (2.5-4.0); Potassium 3.6 mmol/L (3.5-5.1); Total Protein 6.4 gm/dl (6.0-8.3)
[2023-05-18] MEDS ORDERED: ACETAMINOPHEN 325 MG TAB PO PRN (05:28)
[2023-05-18] MEDS: MAGNESIUM SULFATE / D5W 1 GM/100 ML BAG IV SCH (06:06)
[2023-05-18] MEDS: IPRATROPIUM BROMIDE NEB SOLN 0.02% 0.5MG/2.5ML VIAL INH SCH (07:10)
[2023-05-18] MEDS: LEVALBUTEROL 1.25 MG/3 ML NEB NEB SCH (07:10)
--- NOTE | 2023-05-18 07:10 | CT Scan Report ---
CT angio chest PE protocol CT DOSE: 850.13 mGy.cm HISTORY: 67 years-old Male with cp. Acute chest pain TECHNIQUE: Multiple CTA images of the chest were obtained after the intravenous administration of 118 ml Optiray. Coronal and sagittal MIPS were obtained from the axial data set and were submitted for review. All measurements were obtained according to NASCET criteria. A dose lowering technique was u tilized adhering to the principles of ALARA. COMPARISON: Chest radiograph 05/17/2023, CTA chest 04/04/2023 FINDINGS: CTA: The heart is normal in size. There is no pericardial effusion. Extensive coronary artery calcificatio ns. Unremarkable thoracic aorta. No pulmonary emboli identified. CT CHEST: Unremarkable thyroid. No pathologically enlarged lymph nodes. Emphysema with bronchial wall thickenin g redemonstrated. Areas of subsegmental atelectasis versus scarring again seen. There is minimal muco us plugging. No suspicious pulmonary nodules or masses identified. No pneumothorax, pleural effusion or overt pulmonary edema. Mild tracheobronchial secretions. No acute upper abdominal abnormality. 7 mm soft tissue nodule noted posterior to the right hepatic lo be, possibly a dropped gallstone. Unremarkable soft tissues. Partially imaged left shoulder hardware. No acute fracture. IMPRESSION: 1. No pulmonary emboli identified. 2. Emphysema with tracheobronchial secretions, bronchitis and mild mucous plugging. 3. No pleural effusion or airspace consolidation typical for pneumonia. ACT 112: Negative or not required by law. The above report was generated using voice recognition software. It may contain grammatical, syntax o r spelling errors. Electronically signed by: Colby Mata M.D. 05/18/2023 7:09 AM
--- NOTE | 2023-05-18 07:32 | XRay Report ---
XR chest 1V not portable HISTORY: 67 years-old Male Chest pain, nonspecific COMPARISON: CTA chest of same day TECHNIQUE: PA view of the chest FINDINGS: Cardiomediastinal and hilar silhouettes are within normal limits. Emphysema with chronic interstitial coarsening. No pneumothorax, pleural effusion or airspace consolidation. Bilateral shoulder arthropl asties. IMPRESSION: Emphysema without acute process. ACT 112: Negative or not required by law. The above report was generated using voice recognition software. It may contain grammatical, syntax o r spelling errors. Electronically signed by: Colby Mata M.D. 05/18/2023 7:30 AM
[2023-05-18] MEDS ORDERED: ENOXAPARIN INJ 40 MG/0.4 ML SYR SQ SCH (09:00)
[2023-05-18] MEDS ORDERED: NON-FORMULARY MEDICATION (Fluticasone-Umeclidin-Vilanter [Trelegy Ellipta] 100-62.5-25 mcg INH SCH (09:00)
[2023-05-18] MEDS: UMECLIDINIUM/VILANTEROL 62.5/25MCG 7 PUFFS/INHALER INH SCH (09:18)
[2023-05-18] MEDS: FLUTICASONE FUROATE 100MCG 14 PUFFS/INHALER INH SCH (09:19)
[2023-05-18] MEDS: buPROPion SR 150 MG TABCR PO SCH (09:35)
[2023-05-18] MEDS: ATORVASTATIN 40 MG TAB PO SCH (09:35)
[2023-05-18] MEDS: PANTOprazole 40 MG TAB PO SCH (09:35)
[2023-05-18] MEDS: CYANOCOBALAMIN (B-12) 500 MCG TABLET PO SCH (09:35)
[2023-05-18] MEDS: ASPIRIN 81 MG ECTAB PO SCH (09:35)
[2023-05-18] MEDS: PREGABALIN 100 MG CAP PO SCH (09:36)
[2023-05-18] MEDS: ENOXAPARIN INJ 40 MG/0.4 ML SYR SQ SCH (09:36)
--- OUTSIDE RECORDS SUMMARY | 2023-05-18 10:14 | External Medical Summary | Summary of Care ---
Author Name Unknown Organization [facility] Address [address] [place] [address] Phone [phone] Care Team Providers Care Transportation Mechanic Name Role Phone Ajit Moreno MD Primary Care Provider [phone] Encounter Details Date Type Department Care Team (Late st Contact Info) Description 05/12/2023 8:45 AM EDT Scheduled Telephone Care Coordination and Integration [address] [place], [place] [phone] Yesica Flores [facility] [employer] Work[employer] [address], [place] [phone] Allergies Active Allergy Reactions Criticality Noted Date Comments Fluticasone High 02/27/2020 Other reaction(s): lightheadedness and nausea Umeclidinium High 02/27/2020 Other reaction(s): lightheadedness and nausea Vilanterol High 02/27/2020 Other reaction(s): lightheadedness and nausea documented as of this encounter (statuses as of 05/12/2023) Medications Medication Sig Dispensed Refills Start Date End Date Status Respiratory Therapy Supplies (NEBULIZER/TUBING/MO UTHPIECE) KIT Use as directed 1 Kit 5 07/06/2018 Active Clobetasol Propionate 0.05 % External Ointment (Temovate)Indication s:Stasis dermatitis of both legs Apply 2x daily to rash on legs until resolved, then as needed when flaring 60 g 0 08/27/2021 Active Naproxen 500 MG Oral Tablet (Naprosyn)Indication s:Hip pain, left Take 1 Tablet by mouth 2 times a day as needed for Pain. With food 40 Tablet 1 03/10/2022 Active Additional Information Patient not taking.Reported on 04/26/2023 Docusate Sodium 50 MG Oral Capsule Take 1 Capsule by mouth 2 times a day as needed for Constipation. 0 Active Meclizine HCl 12.5 MG Oral Tablet (Antivert)Indication s:Dizziness TAKE ONE TABLET BY MOUTH THREE TIMES DAILY NEEDED for dizziness 30 Tablet 2 12/13/2022 Active Aspirin 81 MG Oral Tablet Chewable (Aspirin 81) Take 1 Tablet by mouth in the morning. 0 Active Albuterol Sulfate HFA 108 (90 Base) MCG/ACT Inhalation Aerosol SolutionIndications: Pulmonary emphysema, unspecified emphysema type ([facility]) INHALE TWO PUFFS BY MOUTH EVERY 4 HOURS NEEDED FOR SHORTNESS OF BREATH or wheezing 25.5 g 1 03/21/2023 Active buPROPion HCl ER (SR) 150 MG Oral Tablet Extended Release 12 Hour (Wellbutrin SR)Indications:Adjus tment disorder with depressed mood TAKE ONE TABLET BY MOUTH IN THE MORNING AND ONE BEFORE BEDTIME 180 Tablet 3 03/21/2023 Active Levalbuterol HCl 1.25 MG/3ML Inhalation Nebulization Solution (Xopenex)Indications :COPD, group C, by GOLD 2017 classification ([facility]) Inhale 1 Ampule via nebulizer every 4 hours as needed for Wheezing. 72 mL 3 03/21/2023 Active Ondansetron HCl 8 MG Oral Tablet (Zofran)Indications: Nausea without vomiting Take 1 Tablet by mouth every 8 hours as needed for Nausea. 20 Tablet 0 03/21/2023 Active Pantoprazole Sodium 40 MG Oral Tablet Delayed Release (Protonix)Indication s:Gastroesophageal reflux disease with esophagitis, unspecified whether hemorrhage Take 1 Tablet by mouth in the morning and 1 Tablet before bedtime. 180 Tablet 1 03/21/2023 Active LORazepam 0.5 MG Oral Tablet (Ativan)Indications: Anxiety Take 1 Tablet by mouth every 6 hours as needed for Agitation. 20 Tablet 0 03/21/2023 Active Cyanocobalamin 1000 MCG Oral Tablet (Cyanocobalamin) Take 1 Tablet by mouth in the morning. 0 Active Sucralfate 1 GM/10ML Oral Suspension (Carafate) Take 10 mL by mouth in the morning and 10 mL at noon and 10 mL in the evening and 10 mL before bedtime. For 12 days. 0 Active Triamcinolone Acetonide 0.1 % External Ointment (Aristocort)Indicati ons:Stasis dermatitis of both legs Apply 2x daily to rash on lower legs when flaring (see printed checkout sheet) 80 g 0 04/12/2023 Active Atorvastatin Calcium 80 MG Oral Tablet (Lipitor)Indications :Atherosclerosis of aorta (HCC) TAKE 1 TABLET BY MOUTH ONCE DAILY 90 Tablet 3 04/14/2023 Active Trelegy Ellipta 100-62.5-25 MCG/ACT Aerosol Powder Breath Activated (Fluticasone-Umeclid inium-Vilanterol) USE 1 PUFF INHALED DAILY 60 Each 6 04/20/2023 Active Furosemide 40 MG Oral Tablet (Lasix)Indications:B ilateral lower extremity edema Take 1 Tablet by mouth in the morning. for fluid accumulation or weight gain. 5 Tablet 0 04/25/2023 Active Pregabalin 100 MG Oral Capsule (Lyrica)Indications: Chronic pain syndrome Take 1 Capsule by mouth in the morning and 1 Capsule before bedtime. 60 Capsule 0 05/02/2023 Active documented as of this encounter (statuses as of 05/12/2023) Active Problems Problem Noted Date Diagnosed Date Embolism and thrombosis of unspecified parts of aorta 03/21/2023 Dyslipidemia, goal LDL below 70 06/01/2022 [...] as of this encounter (statuses as of 05/12/2023) Resolved Problems Problem Noted Date Diagnosed Date Resolved Date Hyperlipidemia 03/21/2023 04/07/2023 Morbid (severe) obesity due to excess calories [...] LUNG, NOT ELSEWHERE CLASSIFIED 06/12/2002 09/14/2018 CHEST [id number] 04/09/200209/2018 ABN FD-INTRATHOR ORG NEC-akbar nodule 03/06/2002 [...] as of this encounter (statuses as of 05/12/2023) Immunizations Name Administration Dates Next Due COVID-19 mRNA, LNP-s, No Pre serve, 2-Dose Series (Bellabox) 05/22/2020,05/01/2020 Seasonal Influenza, PF, 6 M & above, IM , (FluLaval or Fluzone) 10/26/2019,12/22/2018,12/28/2017 Seasonal Influenza, Quadriva lent Hd (Fluzone Hd) 01/08/2022 documented as of this encounter Social History Tobacco Use Types Packs/Day Years Used Date Smoking Tobacco: Every Day Cigarettes 0.5 45 Started: 03/19/2003 Passive Smoke Exposure: Past Smokeless Tobacco: Never Comments:began at age 8, [address] tried to quit 2003, currently one cigarette a day Alcohol Use Standard Drinks/Week Comments No 0 (1 standard drink = 0.6 oz pur e alcohol) PHQ-2 Answer Date Recorded PHQ Adult Total Score 2 04/08/2023 Hunger Vital Sign Answer Date Recorded Within the past 12 months, y ou worried that your food would run out before you got the money to buy more. Sometimes true Within the past 12 months, t he food you bought just didn't last and you didn't have money to get more. Sometimes true Sex and Gender Information Value Date Recorded Sex Assigned at Not on file Gender Identity Male 08/31/2021 1:16 PM EDT Sexual Orientation Straight 07/05/2018 9: 33 AM EDT Job Start Date Occupation Industry Not on file Not on file Not on file documented as of this encounter Progress Notes * Yesica Flores [facility] [employer] [facility] - 05/12/2023 8:50 AM EDT Telemedicine visit: No [facility] [employer] [facility] (EDD) documentation: CHW f/u call to troubleshoot health monitoring equipment, per Saray Wilson RNCM [facility], left vm to return call to CHW. documented in this encounter Plan of Treatment Upcoming Encounters Date Type Department Care Team (Late st Contact Info) Description 06/20/2023 8:00 AM EDT [facility] [address] [facility] [id number] JuneAjit MD [address] [facility] [address] 06/20/2023 4:30 PM EDT Imaging Radiology [address] [place] [address] 07/05/2023 1:00 PM EDT Office Visit [facility] [place] [address] [place] [facility] [place] [phone] Ajit Moreno [facility] [address] [facility] [facility] [address] Scheduled Procedures Name Priority Associated Diagnoses Date/Ti me COLONOSCOPY FLEXIBLE PROXIMAL DIAGNOSTIC Recall History of colon polyps Health Maintenance Due Date Last Done Comments DISCUSS TOBACCO CESSATION (REFER TO SMARTSET #4025) 1955 Pneumococcal Vaccine: 65+ Years (1 of 2 - PCV) 12/04/1959 Alpha-1 Antitrypsin 12/04/1971 DTaP,Tdap,and Td Vaccines (1 - Tdap) 1972 Zoster Vaccines (1 of 2) 12/04/2003 *ADVANCE DIRECTIVE NOT ON FILE 07/22/2018 AAA Screening 2018 *BISPHONATE OR OTHER ACCEPTABLE MEDICATION NEEDED FOR OSTEOPOROSIS (REFER TO SMARTSET #1146) 06/29/2022 COVID-19 Vaccine ( - season) 2022 05/22/2020, 05/01/2020 DXA Scan 10/14/2022 10/14/2020 Influenza Vaccine (FLU shot) (Season Ended) 2023 01/08/2022, 10/26/2019, 12/22/2018, Additional history exists Depression Screening 04/07/2024 04/08/2023 O2 ASSESSMENT COMPLETED IN PAST YEAR FOR COPD 04/11/2024 04/12/2023 Diabetes Screening 01/11/2025 01/11/2022, 1 04/05/2020, 07/03/2020, Additional history exists COLONOSCOPY-EVERY 5 YRS AGES 18-100 03/18/2026 03/18/2021, 03/18/2021, 12/18/2019, Additional history exists LUNG CANCER SCREENING - USE SMARTSET 47073 Completed 11/08/2016, 11/03/2016, 12/22/2015, Additional history exists Hepatitis C Screening Completed 05/31/2017 , 08/07/2015, 05/03/2014 COLONOSCOPY-ANNUAL AGES 18-100 Discontinued 03/18/2021, 03/18/2021, 12/18/2019, Additional history exists VITAMIN D LEVEL ONCE IN A LIFETIME-USE SMARTSET# 73279 Completed 06/16/2021, 05/03/2014 GARDASIL-HPV IMMUNIZATION SERIES Aged [...] 9:12 AM 05/09/2003 10:12 AM Care Teams Transportation Mechanic Relationship Specialty Start Date End Date June, Ajit Sylvester MD [address] [facility] [place] [address] PCP - General Family Medicine 03/11/22 documented as of this encounter
--- OUTSIDE RECORDS SUMMARY | 2023-05-18 10:15 | External Medical Summary | Summary of Care ---
Author Name Unknown Organization [facility] Address [address] [place] [address] Phone [phone] Care Team Providers Care Show Design Supervisor Name Role Phone Ajit Moreno MD Primary Care Provider [phone] Reason for Visit * Reason Onset Date Comments FYI 04/26/2023 Can D/C patients Eliquis CT Clear no clots in lungs or legs. Encounter Details Date Type Department Care Team (Late st Contact Info) Description 04/26/2023 Telephone [facility] [address] [place] [address] Ajit Moreno MD [address] [place] [address] FYI (Can D/C patients Eliquis CT Clear no ... Allergies Active Allergy Reactions Criticality Noted Date Comments Fluticasone High 02/27/2020 Other reaction(s): lightheadedness and nausea Umeclidinium High 02/27/2020 Other reaction(s): lightheadedness and nausea Vilanterol High 02/27/2020 Other reaction(s): lightheadedness and nausea documented as of this encounter (statuses as of 04/26/2023) Medications Medication Sig Dispensed Refills Start Date End Date Status Respiratory Therapy Supplies (NEBULIZER/TUBING/M OUTHPIECE) KIT Use as directed 1 Kit 5 07/06/2018 Active Clobetasol Propionate 0.05 % External Ointment (Temovate)Indicatio ns:Stasis dermatitis of both legs Apply 2x daily to rash on legs until resolved, then as needed when flaring 60 g 0 08/27/2021 Active Naproxen 500 MG Oral Tablet (Naprosyn)Indicatio ns:Hip pain, left Take 1 Tablet by mouth 2 times a day as needed for Pain. With food 40 Tablet 1 03/10/2022 Active Additional Information Patient not taking.Reported on 04/26/2023 Docusate Sodium 50 MG Oral Capsule Take 1 Capsule by mouth 2 times a day as needed for Constipation. 0 Active Meclizine HCl 12.5 MG Oral Tablet (Antivert)Indicatio ns:Dizziness TAKE ONE TABLET BY MOUTH THREE TIMES DAILY NEEDED for dizziness 30 Tablet 2 12/13/2022 Active Aspirin 81 MG Oral Tablet Chewable (Aspirin 81) Take 1 Tablet by mouth in the morning. 0 Active Albuterol Sulfate HFA 108 (90 Base) MCG/ACT Inhalation Aerosol SolutionIndications :Pulmonary emphysema, unspecified emphysema type ([facility]) INHALE TWO PUFFS BY MOUTH EVERY 4 HOURS NEEDED FOR SHORTNESS OF BREATH or wheezing 25.5 g 1 03/21/2023 Active buPROPion HCl ER (SR) 150 MG Oral Tablet Extended Release 12 Hour (Wellbutrin SR)Indications:Adju stment disorder with depressed mood TAKE ONE TABLET BY MOUTH IN THE MORNING AND ONE BEFORE BEDTIME 180 Tablet 3 03/21/2023 Active Levalbuterol HCl 1.25 MG/3ML Inhalation Nebulization Solution (Xopenex)Indication s:COPD, group C, by GOLD 2017 classification ([facility]) Inhale 1 Ampule via nebulizer every 4 hours as needed for Wheezing. 72 mL 3 03/21/2023 Active Ondansetron HCl 8 MG Oral Tablet (Zofran)Indications :Nausea without vomiting Take 1 Tablet by mouth every 8 hours as needed for Nausea. 20 Tablet 0 03/21/2023 Active Pantoprazole Sodium 40 MG Oral Tablet Delayed Release (Protonix)Indicatio ns:Gastroesophageal reflux disease with esophagitis, unspecified whether hemorrhage Take 1 Tablet by mouth in the morning and 1 Tablet before bedtime. 180 Tablet 1 03/21/2023 Active Pregabalin 100 MG Oral Capsule (Lyrica)Indications :Chronic pain syndrome Take 1 Capsule by mouth in the morning and 1 Capsule before bedtime. 60 Capsule 0 03/21/2023 Active LORazepam 0.5 MG Oral Tablet (Ativan)Indications :Anxiety Take 1 Tablet by mouth every 6 [...] Active Triamcinolone Acetonide 0.1 % External Ointment (Aristocort)Indicat ions:Stasis dermatitis of both legs Apply 2x daily to rash on lower legs when flaring (see printed checkout sheet) 80 g 0 04/12/2023 Active Atorvastatin Calcium 80 MG Oral Tablet (Lipitor)Indication s:Atherosclerosis of aorta (HCC) TAKE 1 TABLET BY MOUTH ONCE DAILY 90 Tablet 3 04/14/2023 Active Trelegy Ellipta 100-62.5-25 MCG/ACT Aerosol Powder Breath Activated (Fluticasone-Umecli dinium-Vilanterol) USE 1 PUFF INHALED DAILY 60 Each 6 04/20/2023 Active Furosemide 40 MG Oral Tablet (Lasix)Indications: Bilateral lower extremity edema Take 1 Tablet by mouth in the morning. for fluid accumulation or weight gain. 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 180 Tablet 1 03/21/2023 04/26/19 24 Discontinu ed(Medicat ion/Dose Changed) documented as of this encounter (statuses as of 04/26/2023) Active Problems Problem Noted Date Diagnosed Date [...] as of this encounter (statuses as of 04/26/2023) Resolved Problems Problem Noted Date Diagnosed Date [...] LUNG, NOT ELSEWHERE CLASSIFIED 06/12/2002 09/14/2018 CHEST [id number] 04/09/200209/2018 ABN FD-INTRATHOR ORG NEC-akbar nodule 03/06/2002 [...] as of this encounter (statuses as of 04/26/2023) Immunizations Name Administration Dates Next Due COVID-19 mRNA, LNP-s, No Pre serve, 2-Dose Series ([employer]) 05/22/2020,05/01/2020 Seasonal Influenza, PF, 6 M & [...] Telephone Encounter - Ajit Moreno MD - 04/26/2023 5:17 PM EDT Noted. Can we please reach out to patient to notify he can discontinue Eliquis. Ajit Moreno MD * Telephone Encounter - Queta Guevara OSA - 04/26/2023 4:[address] Irwin reviewed CT done 03/08 - Patient doesn't have any clots in his lungs or legs can d/c the Eliquis. documented in this encounter Plan of Treatment Upcoming Encounters Date Type Department Care Team (Late st Contact Info) Description 06/20/2023 8:00 AM EDT Office Visit [address] [phone] [facility] [address] [facility] [id number] 06/20/2023 4:30 PM EDT Imaging Radiology [address], [address] [place] [address] 07/05/2023 1:00 PM EDT Office Visit Family Practice, [place] [address] [facility] [place] [phone] [facility]it [facility] [address] [facility] [address] Scheduled Procedures Name Priority Associated Diagnoses Date/Ti me COLONOSCOPY FLEXIBLE PROXIMAL DIAGNOSTIC Recall History of colon polyps Health Maintenance Due Date Last Done Comments DISCUSS TOBACCO CESSATION (REFER TO SMARTSET #1100) 1955 Pneumococcal Vaccine: 65+ Years (1 of 2 - PCV) 12/04/1959 Alpha-1 Antitrypsin 12/04/1971 DTaP,Tdap,and Td Vaccines (1 - Tdap) 1972 Zoster Vaccines (1 of 2) 12/04/2003 *ADVANCE DIRECTIVE NOT ON FILE 07/22/2018 AAA Screening 2018 *BISPHONATE OR OTHER ACCEPTABLE MEDICATION NEEDED FOR OSTEOPOROSIS (REFER TO SMARTSET #1146) 06/29/2022 COVID-19 Vaccine ( - 2022- season) 2022 05/22/2020, 05/01/2020 Influenza Vaccine (FLU shot) (#1) 2022 01/08/2022, 10/26/2019, 12/22/2018, Additional history exists DXA Scan 10/14/2022 10/14/2020 Depression Screening 04/07/2024 04/08/2023 O2 ASSESSMENT COMPLETED IN PAST YEAR FOR COPD 04/11/2024 04/12/2023 Diabetes Screening 01/11/2025 01/11/2022, 1 04/05/2020, 07/03/2020, Additional history exists COLONOSCOPY-EVERY 5 YRS AGES 18-100 03/18/2026 03/18/2021, 03/18/2021, 12/18/2019, Additional history exists LUNG CANCER SCREENING - USE SMARTSET 08904 Completed 11/08/2016, 11/03/2016, 12/22/2015, Additional history exists Hepatitis C Screening Completed 05/31/2017 , 08/07/2015, 05/03/2014 COLONOSCOPY-ANNUAL AGES 18-100 Discontinued 03/18/2021, 03/18/2021, 12/18/2019, Additional history exists VITAMIN D LEVEL ONCE IN A LIFETIME-USE SMARTSET# [id number] Completed 06/16/2021, 05/03/2014 GARDASIL-HPV IMMUNIZATION SERIES Aged [...] 9:12 AM 05/09/2003 10:12 AM Care Teams Show Design Supervisor Relationship Specialty Start Date End Date June, Ajit Sylvester MD [address] [place] [address] PCP - General Family Medicine 03/11/22 documented as of this encounter
--- OUTSIDE RECORDS SUMMARY | 2023-05-18 10:15 | External Medical Summary | Summary of Care ---
Author Name Unknown Organization [facility] Address [address] [place] [address] Phone [phone] Care Team Providers Care Rim Roller Operator Name Role Phone JuneAjit MD Primary Care Provider Reason for Referral * Evaluate & Treat - Unlimited Visits (Within 10 days (routine)) - Authorized Specialty Diagnoses / Procedures Referred By Nena altman Referred To Contact Physical Therapy / Physical Medicine And Rehab Diagnoses Unsteady gait when walking June, Ajit Sylvester MD [address] [place] [address] Referral ID Status Reason Start Date Expiration Date Visits Requested Visits Authorized [id number] Authorized Specialty Services Required 05/02/[phone] Question Answer Referral Priority Within 10 days (routine) Where should this appointment be scheduled? [facility] Comments Patient would like to go to outpatient therapy to [place] in [place] Saray Wilson RN Reason for Visit * Reason Onset Date Comments Order Request 05/02/2023 Encounter Details Date Type Department Care Team (Late st Contact Info) Description 05/02/2023 Telephone [facility] [address] [place] [address] Ajit Moreno MD [address] [place] [address] Order Request Allergies Active Allergy Reactions Criticality Noted Date Comments Fluticasone High 02/27/2020 Other reaction(s): lightheadedness and nausea Umeclidinium High 02/27/2020 Other reaction(s): lightheadedness and nausea Vilanterol High 02/27/2020 Other reaction(s): lightheadedness and nausea documented as of this encounter (statuses as of 05/02/2023) Medications Medication Sig Dispensed Refills Start Date [...] Aerosol SolutionIndications: Pulmonary emphysema, unspecified emphysema type ([facility]) INHALE TWO PUFFS BY MOUTH EVERY 4 [...] :COPD, group C, by GOLD 2017 classification ([facility]) Inhale 1 Ampule via nebulizer [...] as of this encounter (statuses as of 05/02/2023) Active Problems Problem Noted Date Diagnosed Date [...] as of this encounter (statuses as of 05/02/2023) Resolved Problems Problem Noted Date Diagnosed Date [...] LUNG, NOT ELSEWHERE CLASSIFIED 06/12/2002 09/14/2018 CHEST [id number] 04/09/200209/2018 ABN FD-INTRATHOR ORG NEC-akbar nodule 03/06/2002 [...] as of this encounter (statuses as of 05/02/2023) Immunizations Name Administration Dates Next Due COVID-19 mRNA, LNP-s, No Pre serve, 2-Dose Series ([employer]) 05/22/2020,05/01/2020 Seasonal Influenza, PF, 6 M & [...] Telephone Encounter - Ajit Moreno MD - 05/02/2023 8:23 PM EDT Referral placed. Ajit Moreno MD * Telephone Encounter - Saray Wilson RN - 05/02/2023 1:[address] Moreno, Patient having balance issues, would like to try outpatient physical therapy- please sign attached order & return to me-thanks Saray Wilson RN documented in this encounter Plan of Treatment Upcoming Encounters Date Type Department Care Team (Late st Contact Info) Description 05/03/2023 5:00 PM EDT Home Visit [facility] [address] [place] [address] Yesica Flores, Community Health Statement Processor [address] [place] [address] 06/20/2023 8:00 AM EDT Office Visit [facility] [address] [place] [phone] JuneAjit MD [address] [place] [address] 06/20/2023 4:30 PM EDT Imaging Radiology [address], [address] [address] 07/05/2023 1:00 PM EDT Office Visit [facility] [address] [place] [phone] Ajit Moreno MD [address] [place] [address] Scheduled Procedures Name Priority Associated Diagnoses Date/Ti me COLONOSCOPY FLEXIBLE PROXIMAL DIAGNOSTIC Recall History of colon polyps Scheduled Referrals Name Type Priority Associated Diagnoses Orde r Schedule PHYSICAL THERAPY REFERRAL OP Referral Within 10 days (routine) Unsteady gait when walking Ordered: 05/02/2023 Health Maintenance Due Date Last Done Comments DISCUSS TOBACCO CESSATION (REFER TO SMARTSET #3291) 1955 Pneumococcal Vaccine: 65+ Years (1 of 2 - PCV) 12/04/1959 Alpha-1 Antitrypsin 12/04/1971 DTaP,Tdap,and Td Vaccines (1 - Tdap) 1972 Zoster Vaccines (1 of 2) 12/04/2003 *ADVANCE DIRECTIVE NOT ON FILE 07/22/2018 AAA Screening 2018 *BISPHONATE OR OTHER ACCEPTABLE MEDICATION NEEDED FOR OSTEOPOROSIS (REFER TO SMARTSET #1146) 06/29/2022 COVID-19 Vaccine ( season) 2022 05/22/2020, 05/01/2020 Influenza Vaccine (FLU shot) (#1) 2022 01/08/2022, 10/26/2019, 12/22/2018, Additional history exists DXA Scan 10/14/2022 10/14/2020 Depression Screening 04/07/2024 04/08/2023 O2 ASSESSMENT COMPLETED IN PAST YEAR FOR COPD 04/11/2024 04/12/2023 Diabetes Screening 01/11/2025 01/11/2022, 1 04/05/2020, 07/03/2020, Additional history exists COLONOSCOPY-EVERY 5 YRS AGES 18-100 03/18/2026 03/18/2021, 03/18/2021, 12/18/2019, Additional history exists LUNG CANCER SCREENING - USE SMARTSET 68956 Completed 11/08/2016, 11/03/2016, 12/22/2015, Additional history exists Hepatitis C Screening Completed 05/31/2017 , 08/07/2015, 05/03/2014 COLONOSCOPY-ANNUAL AGES 18-100 Discontinued 03/18/2021, 03/18/2021, 12/18/2019, Additional history exists VITAMIN D LEVEL ONCE IN A LIFETIME-USE SMARTSET# [id number] Completed 06/16/2021, 05/03/2014 GARDASIL-HPV IMMUNIZATION SERIES Aged [...] as of this encounter Visit Diagnoses Diagnosis Unsteady gait when walking- Primary documented in this encounter Advance Directives Latest [...] 9:12 AM 05/09/2003 10:12 AM Care Teams Rim Roller Operator Relationship Specialty Start Date End Date June, Ajit Sylvester MD [address] [place] [address] PCP - General Family Medicine 03/11/22 documented as of this encounter
--- OUTSIDE RECORDS SUMMARY | 2023-05-18 10:15 | External Medical Summary | Summary of Care ---
Author Name Unknown Organization [facility] Address [address] [place] [address] Phone [phone] Care Team Providers Care Support Engineer Name Role Phone Ajit Moreno MD Primary Care Provider [phone] Reason for Visit * Reason Onset Date Comments FYI 04/26/2023 Can D/C patients Eliquis CT Clear no clots in lungs or legs. Encounter Details Date Type Department Care Team (Late st Contact Info) Description 04/26/2023 Telephone [facility] [address] [place] [address] Ajit Moreno MD [address] [place] [address] FYI (Can D/C patients Eliquis CT Clear no ... Allergies Active Allergy Reactions Criticality Noted Date Comments Fluticasone High 02/27/2020 Other reaction(s): lightheadedness and nausea Umeclidinium High 02/27/2020 Other reaction(s): lightheadedness and nausea Vilanterol High 02/27/2020 Other reaction(s): lightheadedness and nausea documented as of this encounter (statuses as of 04/27/2023) Medications Medication Sig Dispensed Refills Start Date [...] Aerosol SolutionIndications :Pulmonary emphysema, unspecified emphysema type ([facility]) INHALE TWO PUFFS BY MOUTH [...] s:COPD, group C, by GOLD 2017 classification ([facility]) Inhale 1 Ampule via nebulizer [...] as of this encounter (statuses as of 04/27/2023) Active Problems Problem Noted Date Diagnosed Date [...] as of this encounter (statuses as of 04/27/2023) Resolved Problems Problem Noted Date Diagnosed Date [...] LUNG, NOT ELSEWHERE CLASSIFIED 06/12/2002 09/14/2018 CHEST [id number] 04/09/200209/2018 ABN FD-INTRATHOR ORG NEC-akbar nodule 03/06/2002 [...] as of this encounter (statuses as of 04/27/2023) Immunizations Name Administration Dates Next Due COVID-19 mRNA, LNP-s, No Pre serve, 2-Dose Series ([employer]) 05/22/2020,05/01/2020 Seasonal Influenza, PF, 6 M & [...] encounter Miscellaneous Notes * Telephone Encounter - Kadi Sykes LPN - 04/27/2023 9:02 AM EDT Left detailed message on identified machine. * Telephone Encounter - Ajit Moreno MD [...] Visit [facility] [address] [place] [address] Yesica Flores, Community Health Agronomy Instructor [address] [place] [address] 06/20/2023 8:00 AM EDT Office Visit [facility] [address] [place] [address] JuneAjit MD [address] [place] [address] 06/20/2023 4:30 PM EDT Imaging Radiology [address], [address] [address] 07/05/2023 1:00 PM EDT Office Visit [facility] [address] [place] [phone] Ajit Moreno MD [address], [place] [phone] Scheduled Procedures Name Priority Associated Diagnoses Date/Ti [...] exists LUNG CANCER SCREENING - USE SMARTSET 63078 Completed 11/08/2016, 11/03/2016, 12/22/2015, Additional history exists Hepatitis C Screening Completed 05/31/2017 , 08/07/2015, 05/03/2014 COLONOSCOPY-ANNUAL AGES 18-100 Discontinued 03/18/2021, 03/18/2021, 12/18/2019, Additional history exists VITAMIN D LEVEL ONCE IN A LIFETIME-USE SMARTSET# [id number] Completed 06/16/2021, 05/03/2014 GARDASIL-HPV IMMUNIZATION SERIES Aged [...] 9:12 AM 05/09/2003 10:12 AM Care Teams Support Engineer Relationship Specialty Start Date End Date June, Ajit Sylvester MD [address] [place] [address] PCP - General Family Medicine 03/11/22 documented as of this encounter
--- OUTSIDE RECORDS SUMMARY | 2023-05-18 10:15 | External Medical Summary | Summary of Care ---
Author Name Unknown Organization [facility] Address [address] [place] [address] Phone [phone] Care Team Providers Care Womens Health Nurse Practitioner Name Role Phone JuneAjit MD Primary Care Provider Reason for Referral * Evaluate & Treat - Unlimited Visits (Within 10 days (routine)) - Authorized Specialty Diagnoses / Procedures Referred By Nena altman Referred To Contact Physical Therapy / Physical Medicine And Rehab Diagnoses Unsteady gait when walking June, Ajit Sylvester MD [address] [place] [address] Referral ID Status Reason Start Date Expiration Date Visits Requested Visits Authorized [id number] Authorized Specialty Services Required 05/02/[phone] Question Answer Referral Priority Within 10 days (routine) Where should this appointment be scheduled? [facility] Comments Patient would like to go to outpatient therapy to [facility] in [place] Saray Wilson RN Reason for Visit * Reason Onset Date Comments Order Request 05/02/2023 Encounter Details Date Type Department Care Team (Late st Contact Info) Description 05/02/2023 Telephone [facility] [address] [place] [address] Ajit Moreno MD [address] [place] [address] Order Request Allergies Active Allergy Reactions Criticality Noted Date Comments Fluticasone High 02/27/2020 Other reaction(s): lightheadedness and nausea Umeclidinium High 02/27/2020 Other reaction(s): lightheadedness and nausea Vilanterol High 02/27/2020 Other reaction(s): lightheadedness and nausea documented as of this encounter (statuses as of 05/03/2023) Medications Medication Sig Dispensed Refills Start Date [...] Aerosol SolutionIndications: Pulmonary emphysema, unspecified emphysema type ([facility]) INHALE TWO PUFFS BY MOUTH EVERY [...] C, by GOLD 2017 classification ([facility]) Inhale 1 Ampule via nebulizer every [...] as of this encounter (statuses as of 05/03/2023) Active Problems Problem Noted Date Diagnosed Date [...] as of this encounter (statuses as of 05/03/2023) Resolved Problems Problem Noted Date Diagnosed Date [...] LUNG, NOT ELSEWHERE CLASSIFIED 06/12/2002 09/14/2018 CHEST [id number] 04/09/200209/2018 ABN FD-INTRATHOR ORG NEC-akbar nodule 03/06/2002 [...] as of this encounter (statuses as of 05/03/2023) Immunizations Name Administration Dates Next Due COVID-19 [...] as of this encounter Progress Notes * Saray Wilson RN - 05/03/2023 10:25 AM EDT PT orders faxed to [facility] in [place] Saray Wilson RN documented in this encounter Miscellaneous Notes * Telephone Encounter - Ajit Moreno MD - 05/02/2023 8:23 PM EDT Referral placed. Ajit Moreno MD * Telephone Encounter - Saray Wilson, RN - 05/02/2023 1:[address] Moreno, Patient having balance issues, would like to try outpatient physical therapy- please sign attached order & return to md-thanks Saray Wilson, RN documented in this encounter Plan of Treatment Upcoming Encounters Date Type Department Care Team (Late st Contact Info) Description 05/03/2023 5:00 PM EDT Home Visit [facility] [address] [place] [address] Yesica Flores Community Health Education Manager [address] [place] [address] 06/20/2023 8:00 AM EDT Office Visit [facility] [address] [place] [address] Ajit Moreno MD [address] [place] [address] 06/20/2023 4:30 PM EDT Imaging Radiology [address] [address] 07/05/2023 1:00 PM EDT Office Visit [facility] [address] [place] [phone] Ajit Moreno MD [address] [place] [address] Scheduled Procedures Name Priority Associated Diagnoses Date/Ti me COLONOSCOPY FLEXIBLE PROXIMAL DIAGNOSTIC Recall History of colon polyps Scheduled Referrals Name Type Priority Associated Diagnoses Orde r Schedule PHYSICAL THERAPY REFERRAL OP Referral Within 10 days (routine) Unsteady gait when walking Ordered: 05/02/2023 Health Maintenance Due Date Last Done Comments DISCUSS TOBACCO CESSATION (REFER TO SMARTSET #2768) 1955 Pneumococcal Vaccine: 65+ Years (1 of [...] exists LUNG CANCER SCREENING - USE SMARTSET 80185 Completed 11/08/2016, 11/03/2016, 12/22/2015, Additional history exists Hepatitis C Screening Completed 05/31/2017 , 08/07/2015, 05/03/2014 COLONOSCOPY-ANNUAL AGES 18-100 Discontinued 03/18/2021, 03/18/2021, 12/18/2019, Additional history exists VITAMIN D LEVEL ONCE IN A LIFETIME-USE SMARTSET# [id number] Completed 06/16/2021, 05/03/2014 GARDASIL-HPV IMMUNIZATION SERIES Aged [...] 9:12 AM 05/09/2003 10:12 AM Care Teams Womens Health Nurse Practitioner Relationship Specialty Start Date End Date June, Ajit Sylvester MD [address] [place] [facility] [place] [address] PCP - General Family Medicine 03/11/22 documented as of this encounter
--- OUTSIDE RECORDS SUMMARY | 2023-05-18 10:15 | External Medical Summary | Summary of Care ---
Author Name Unknown Organization [facility] Address [address] [place] [address] Phone [phone] Care Team Providers Care Sanitation Worker Cleaning Machinery Name Role Phone Ajit Moreno MD Primary Care Provider Encounter Details Date Type Department Care Team (Late st Contact Info) Description 04/26/2023 2:30 PM EDT Home Visit Care Coordination and Integration [address], [place] [id number] Yesica Flores [facility] Plate Worker Helper [address] [place] [address] Allergies Active Allergy Reactions Criticality Noted Date [...] Aerosol SolutionIndications :Pulmonary emphysema, unspecified emphysema type ([facility]) INHALE TWO PUFFS BY MOUTH [...] s:COPD, group C, by GOLD 2017 classification ([facility] [...] LUNG, NOT ELSEWHERE CLASSIFIED 06/12/2002 09/14/2018 CHEST [id number] 04/09/200209/2018 ABN FD-INTRATHOR ORG NEC-akbar nodule 03/06/2002 [...] mRNA, LNP-s, No Pre serve, 2-Dose Series ([employer]one!) 05/22/2020,05/01/2020 Seasonal Influenza, PF, 6 M & [...] Progress Notes * Yesica Flores [facility] Plate Worker Helper - 04/26/2023 5:45 PM EDT Telemedicine visit: No Community [facility] Plate Worker Helper (EDD) documentation: CHW hv completed as per NELLY Biswas CHW completed home safety assessment. Walkways were clear, there were no trip hazards present. Lighting was appropriate. There were no steps for pt. Pt. States he loses his balance, especially if he bends over to pick items up or walks on uneven surfaces. CHW identified SDOH needs with this visit. Pt. States that he does experience food insecurity. CHW provided contact numbers for numerous resources in the community. Pt. Does receive food stamps but only $23.00 per month. Pt. Also expressed financial difficulties with paying utilities. Information provided for resources. Pt. Does get lie heap. CHW discussed applying for the homeowner tax rebate and pt. Was unaware of the program. CHW will schedule a return visit to assist with filling out the application for this program. CHW confirmed pt. Had contact information for CM. documented in this encounter Plan of Treatment Upcoming Encounters Date Type Department Care Team (Late st Contact Info) Description 05/03/2023 5:00 PM EDT Home Visit Care Coordination and Integration [address] [place] [address] Yesica Flores, [facility] Plate Worker Helper [address] [place] [address] 06/20/2023 8:00 AM EDT Office Visit [facility] [address] [place] [phone] JuneAjit MD [address] [place] [address] 06/20/2023 4:30 PM EDT Imaging Radiology [address], [address] [address] 07/05/2023 1:00 PM EDT Office Visit [facility] [address] [place] [phone] JuneAjit MD [address], [place] [phone] Scheduled Procedures Name Priority Associated Diagnoses Date/Ti me COLONOSCOPY FLEXIBLE PROXIMAL DIAGNOSTIC Recall History of colon polyps Health Maintenance Due Date Last Done Comments DISCUSS TOBACCO CESSATION (REFER TO SMARTSET #6648) 1955 Pneumococcal Vaccine: 65+ Years (1 of [...] exists LUNG CANCER SCREENING - USE SMARTSET 65008 Completed 11/08/2016, 11/03/2016, 12/22/2015, Additional history exists Hepatitis C Screening Completed 05/31/2017 , 08/07/2015, 05/03/2014 COLONOSCOPY-ANNUAL AGES 18-100 Discontinued 03/18/2021, 03/18/2021, 12/18/2019, Additional history exists VITAMIN D LEVEL ONCE IN A LIFETIME-USE SMARTSET# 89042 Completed 06/16/2021, 05/03/2014 GARDASIL-HPV IMMUNIZATION SERIES Aged [...] 9:12 AM 05/09/2003 10:12 AM Care Teams Sanitation Worker Cleaning Machinery Relationship Specialty Start Date End Date June, Ajit Sylvester MD [address] [place] [address] PCP - General Family Medicine 03/11/22 documented as of this encounter
--- OUTSIDE RECORDS SUMMARY | 2023-05-18 10:15 | External Medical Summary | Summary of Care ---
Author Name Unknown Organization [facility] Address [address] [place] [address] Phone [phone] Care Team Providers Care Pharmacist Intern Name Role Phone Ajit Moreno MD Primary Care Provider [phone] Reason for Visit * Reason Onset Date Comments FYI 05/03/2023 Encounter Details Date Type Department Care Team (Late st Contact Info) Description 05/03/2023 Telephone Care Coordination and Integration [address], [place] [phone] Melida Gold, TAYLOR [address] [place] [address] FYI Allergies Active Allergy Reactions Criticality Noted Date [...] Aerosol SolutionIndications: Pulmonary emphysema, unspecified emphysema type (HCC) INHALE TWO [...] C, by GOLD 2017 classification ([facility]) Inhale 1 Ampule via nebulizer [...] LUNG, NOT ELSEWHERE CLASSIFIED 06/12/2002 09/14/2018 CHEST [id number] 04/09/200209/2018 ABN FD-INTRATHOR ORG NEC-akbar nodule 03/06/2002 [...] mRNA, LNP-s, No Pre serve, 2-Dose Series ([place]) 05/22/2020,05/01/2020 Seasonal Influenza, PF, 6 M & [...] encounter Miscellaneous Notes * Telephone Encounter - Melida Gold OSA - 05/03/2023 9:31 AM EDT Patient is scheduled for CHW to call and trouble shoot Current Health Device Received Teams CHW Yesica Flores is visiting a patient today and will troubleshoot Current Health Device Melida Gold [facility] Community Health Worker Call or Text- [phone] documented in this encounter Plan of Treatment Upcoming Encounters Date Type Department Care Team (Late st Contact Info) Description 05/03/2023 5:00 PM EDT Home Visit [facility] Coordination and Integration [address] [facility] [place] [address] Yesica Flores [facility] Film Rental Clerk [address] [place] [address] 06/20/2023 8:00 AM EDT [facility] [address] [facility] [phone] JuneAjit MD [address] [place] [address] 06/20/2023 4:30 PM EDT Imaging Radiology [address], [address] [place] [id number] 07/05/2023 1:00 PM EDT Office Visit [facility] [address] [place] [facility] [place] [address] Ajit Moreno MD [address] [facility] [place] [phone] Scheduled Procedures Name Priority Associated Diagnoses Date/Ti me COLONOSCOPY FLEXIBLE PROXIMAL DIAGNOSTIC Recall History of colon polyps Health Maintenance Due Date Last Done Comments DISCUSS TOBACCO CESSATION (REFER TO SMARTSET #5351) 1955 Pneumococcal Vaccine: 65+ Years (1 of [...] exists LUNG CANCER SCREENING - USE SMARTSET 93415 Completed 11/08/2016, 11/03/2016, 12/22/2015, Additional history exists Hepatitis C Screening Completed 05/31/2017 , 08/07/2015, 05/03/2014 COLONOSCOPY-ANNUAL AGES 18-100 Discontinued 03/18/2021, 03/18/2021, 12/18/2019, Additional history exists VITAMIN D LEVEL ONCE IN A LIFETIME-USE SMARTSET# [id number] Completed 06/16/2021, 05/03/2014 GARDASIL-HPV IMMUNIZATION SERIES Aged [...] 9:12 AM 05/09/2003 10:12 AM Care Teams Pharmacist Intern Relationship Specialty Start Date End Date June, Ajit Sylvester MD [address] [place] [address] PCP - General Family Medicine 03/11/22 documented as of this encounter
--- OUTSIDE RECORDS SUMMARY | 2023-05-18 10:15 | External Medical Summary | Summary of Care ---
Author Name Unknown Organization [facility] Address [address] [place] [address] Phone [phone] Care Team Providers Care Recep Name Role Phone Ajit Moreno MD Primary Care Provider [phone] Encounter Details Date Type Department Care Team (Late st Contact Info) Description 05/03/2023 5:00 PM EDT Home Visit Care Coordination and Integration [address] [place], [place] [phone] Yesica Flores [facility] Health Picture Booker [address] [place], [place] [phone] Allergies Active Allergy Reactions Criticality Noted Date [...] Aerosol SolutionIndications: Pulmonary emphysema, unspecified emphysema type ([facility]) INHALE TWO PUFFS BY MOUTH EVERY [...] group C, by GOLD 2017 classification ([facility]) Inhale 1 Ampule via nebulizer every [...] LUNG, NOT ELSEWHERE CLASSIFIED 06/12/2002 09/14/2018 CHEST [id number] 04/09/200209/2018 ABN FD-INTRATHOR ORG NEC-akbar nodule 03/06/2002 [...] mRNA, LNP-s, No Pre serve, 2-Dose Series ([employer]) 05/22/2020,05/01/2020 Seasonal Influenza, PF, 6 M & [...] Progress Notes * Yesica Flores [facility] Picture Booker - 05/03/2023 5:05 PM EDT Telemedicine visit: No Community Health Picture Booker (EDD) documentation: CHW hv to complete application for tax/rent rebate. CHW checked pt.'s Current Health Monitor and it is connected to the internet, sitting near a windowand lights are illuminated as they are to be. Pt is having difficulty with the arm band staying in place due to velcro letting loose. CHW advised him to call the [facility]M to have them send a new strap. Pt. Stated he was experiencing chest pain Tuesday and Tuesday and that his CM is aware. Pt. Is questioning the use of Bupropion Extended Release (SR) 150 MG as he is experiencing dry mouth and just not quite feeling himself. He is sleeping excessively (over 12 hours a day). CM will be notified. documented in this encounter Plan of Treatment Upcoming Encounters Date Type Department Care Team (Late st Contact Info) Description 06/20/2023 8:00 AM EDT Office Visit [facility] [address] [facility] [place] [phone] Tiffanie, Ajit Sylvester MD [address] [facility] [place] [address] 06/20/2023 4:30 PM EDT Imaging Radiology [address], [address] [place] [address] 07/05/2023 1:00 PM EDT Office Visit [facility] [place] [address] [facility] [place] [phone] May, Ajit Sylvester MD [address] [facility] [place] [address] Scheduled Procedures Name Priority Associated Diagnoses Date/Ti me COLONOSCOPY FLEXIBLE PROXIMAL DIAGNOSTIC Recall History of colon polyps Health Maintenance Due Date Last Done Comments DISCUSS TOBACCO CESSATION (REFER TO SMARTSET #8101) 1955 Pneumococcal Vaccine: 65+ Years (1 of [...] exists LUNG CANCER SCREENING - USE SMARTSET 03357 Completed 11/08/2016, 11/03/2016, 12/22/2015, Additional history exists Hepatitis C Screening Completed 05/31/2017 , 08/07/2015, 05/03/2014 COLONOSCOPY-ANNUAL AGES 18-100 Discontinued 03/18/2021, 03/18/2021, 12/18/2019, Additional history exists VITAMIN D LEVEL ONCE IN A LIFETIME-USE SMARTSET# 52544 Completed 06/16/2021, 05/03/2014 GARDASIL-HPV IMMUNIZATION SERIES Aged [...] 9:12 AM 05/09/2003 10:12 AM Care Teams Recep Relationship Specialty Start Date End Date June, Ajit Sylvester MD [address] [place] [address] PCP - General Family Medicine 03/11/22 documented as of this encounter
--- OUTSIDE RECORDS SUMMARY | 2023-05-18 10:15 | External Medical Summary | Summary of Care ---
Author Name Unknown Organization [facility] Address [address] [place] [address] Phone [phone] Care Team Providers Care Automotive Porter Name Role Phone Henry Bush MD Primary Care Provider [phone] Reason for Visit * Reason Comments eRx-Medication Refill Encounter Details Date Type Department Care Team (Late st Contact Info) Description 04/30/2023 Refill [facility] [address] [place] [address] JuneHenry MD [address] [place] [address] Chronic pain syndrome Allergies Active Allergy Reactions Criticality Noted Date [...] as directed 1 Kit 5 9 Active Clobetasol Propionate 0.05 % External Ointment (Temovate)Indicati ons:Stasis dermatitis of both legs Apply 2x daily to rash on legs until resolved, then as needed when flaring 60 g 0 2 Active Naproxen 500 MG Oral Tablet (Naprosyn)Indicati ons:Hip pain, left Take 1 Tablet by mouth 2 times a day as needed for Pain. With food 40 Tablet 1 3 Active Additional Information Patient not taking.Reported on 04/26/2023 Docusate Sodium 50 MG Oral Capsule Take 1 Capsule by mouth 2 times a day as needed for Constipation. 0 Active Meclizine HCl 12.5 MG Oral Tablet (Antivert)Indicati ons:Dizziness TAKE ONE TABLET BY MOUTH THREE TIMES DAILY NEEDED for dizziness 30 Tablet 2 3 Active Aspirin 81 MG Oral Tablet Chewable (Aspirin 81) Take 1 Tablet by mouth in the morning. 0 Active Albuterol Sulfate HFA 108 (90 Base) MCG/ACT Inhalation Aerosol SolutionIndication s:Pulmonary emphysema, unspecified emphysema type ([facility]) INHALE TWO PUFFS BY MOUTH EVERY 4 HOURS NEEDED FOR SHORTNESS OF BREATH or wheezing 25.5 g 1 4 Active buPROPion HCl ER (SR) 150 MG Oral Tablet Extended Release 12 Hour (Wellbutrin SR)Indications:Adj ustment disorder with depressed mood TAKE ONE TABLET BY MOUTH IN THE MORNING AND ONE BEFORE BEDTIME 180 Tablet 3 4 Active Levalbuterol HCl 1.25 MG/3ML Inhalation Nebulization Solution (Xopenex)Indicatio ns:COPD, group C, by GOLD 2017 classification ([facility]) Inhale 1 Ampule via nebulizer every 4 [...] before bedtime. 180 Tablet 1 4 Active LORazepam 0.5 MG Oral Tablet (Ativan)Indication s:Anxiety Take 1 Tablet by mouth every 6 hours as needed for Agitation. 20 Tablet 0 4 Active Cyanocobalamin 1000 MCG Oral Tablet (Cyanocobalamin) [...] (see printed checkout sheet) 80 g 0 4 Active Atorvastatin Calcium 80 MG Oral Tablet (Lipitor)Indicatio ns:Atherosclerosis of aorta (HCC) TAKE 1 TABLET BY MOUTH ONCE DAILY 90 Tablet 3 4 Active Trelegy Ellipta 100-62.5-25 MCG/ACT Aerosol Powder Breath Activated (Fluticasone-Umecl idinium-Vilanterol ) USE 1 PUFF INHALED DAILY 60 Each 6 4 Active Furosemide 40 MG Oral Tablet (Lasix)Indications :Bilateral lower extremity edema Take 1 Tablet by mouth in the morning. for fluid accumulation or weight gain. 5 Tablet 0 4 Active Pregabalin 100 MG Oral Capsule (Lyrica)Indication s:Chronic pain syndrome Take 1 Capsule by mouth in the morning and 1 Capsule before bedtime. 60 Capsule 0 4 Active Pregabalin 100 MG Oral Capsule (Lyrica)Indication s:Chronic pain syndrome Take 1 Capsule by mouth in the morning and 1 Capsule before bedtime. 60 Capsule 0 4 05/02/19 24 Discontinued documented as of this encounter (statuses as [...] LUNG, NOT ELSEWHERE CLASSIFIED 06/12/2002 09/14/2018 CHEST [id number] 04/09/200209/2018 ABN FD-INTRATHOR ORG NEC-akbar nodule 03/06/2002 [...] mRNA, LNP-s, No Pre serve, 2-Dose Series ([employer]) 05/22/2020,05/01/2020 Seasonal Influenza, PF, 6 M & [...] encounter Miscellaneous Notes * Telephone Encounter - Henry Bush MD - 05/02/2023 7:55 PM EDTSigned Prescriptions: Disp Refills Pregabalin 100 MG Oral Capsule (Lyrica) 60 Cap*0 Sig: Take 1 Capsule by mouth in the morning and 1 Capsule before bedtime.Authorizing Provider: HENRY BUSH------ * Telephone Encounter - Chery, [facility] Inbound - 05/02/2023 1:47 PM EDT Pending Prescriptions: Disp Refills Pregabalin 100 MG Oral Capsule [Pharmacy M*60 Cap*0 Sig: Take 1 Capsule by mouth in the morning and 1 Capsule before bedtime. * Telephone Encounter - Anny Mccarthy [facility] - 05/02/2023 10:43 AM EDTPending Prescriptions: Disp Refills Pregabalin 100 MG Oral Capsule [Pharmacy M*60 Cap*0 Sig: Take 1 Capsule by mouth in the morning and 1 Capsule before bedtime. * Telephone Encounter - Anny Mccarthy [facility] - 05/02/2023 10:41 AM EDT I have reviewed the patients controlled substance dispensing history in the Prescription Drug Monitoring Program in compliance with the [facility] regulations before prescribing a controlled substance. PDMP checked on 05/02/2023. Pending Prescriptions: Disp Refills Pregabalin 100 MG Oral Capsule (Lyrica) [*60 Cap*0 Sig: Take 1 Capsule by mouth in the morning and 1 Capsule before bedtime. Last Visit: 04/12/2023 (in office), Visit date not found (telemedicine) Next Visit: 06/20/2023 Date medication was last filled: 03/21/23 Date medication is due for refill: 04/19/23 Pharmacy: [id number] [address] [facility] Is this request for a controlled substance? Yes and Urine Drug Screen Not completed Toxicology results: Results for orders placed or performed in visit on 03/16/18 OPIOIDS/BENZO COMPLIANCE MONITORING W/INTERP Result Value COMPLIANCE INTERP (NOTE) URINE DRUG SCREEN RESULT Amphetamine NEGATIVE Barbiturates NEGATIVE Benzodiazepines REFER TO CONFIRMATION RESULT (A) Cannabinoids NEGATIVE Cocaine Metabolite NEGATIVE METHADONE METABOLITE NEGATIVE Morphine / Codeine NEGATIVE OXYCODONE NEGATIVE COMMENT THE ABOVE SCREENING RESULTS ARE PRESUMPTIVE AND CAN ONLY BE USED FOR MEDICAL PURPOSES. CONFIRMATORY TESTING IS AVAILABLE UPON REQUEST. Cutoff Concentration URINE VALID INTERP NORMAL CREATININE SHENA 189 NITRITE SHENA 38 pH SHENA 5.7 *Note: Due to a large number of results and/or encounters for the requested time period, some results have not been displayed. A complete set of results can be found in Results Review. Please approve if appropriate. Thanks, Anny Mccarthy Clinical Pharmacist [facility] ([facility]) (Formerly Telepharm[facility]) [phone] 05/02/2023, 10:41 AM documented in this encounter Plan of Treatment Upcoming Encounters Date Type Department Care Team (Late st Contact Info) Description 05/03/2023 5:00 PM EDT Home Visit Care Coordination and Integration [address] [place] [address] Yesica Flores [facility] Unix Consultant [address] [place] [address] 06/20/2023 8:00 AM EDT Office Visit [facility] [address] [place] [phone] JuneHenry MD [address] [place] [address] 06/20/2023 4:30 PM EDT Imaging Radiology [address], [address] [address] 07/05/2023 1:00 PM EDT Office Visit [facility] [address] [place] [phone] JuneHenry MD [address] [place] [address] Scheduled Procedures Name Priority Associated Diagnoses Date/Ti me COLONOSCOPY FLEXIBLE PROXIMAL DIAGNOSTIC Recall History of colon polyps Health Maintenance Due Date Last Done Comments DISCUSS TOBACCO CESSATION (REFER TO SMARTSET #4283) 1955 Pneumococcal Vaccine: 65+ Years (1 of [...] exists LUNG CANCER SCREENING - USE SMARTSET 25486 Completed 11/08/2016, 11/03/2016, 12/22/2015, Additional history exists Hepatitis C Screening Completed 05/31/2017 , 08/07/2015, 05/03/2014 COLONOSCOPY-ANNUAL AGES 18-100 Discontinued 03/18/2021, 03/18/2021, 12/18/2019, Additional history exists VITAMIN D LEVEL ONCE IN A LIFETIME-USE SMARTSET# [id number] Completed 06/16/2021, 05/03/2014 GARDASIL-HPV IMMUNIZATION SERIES Aged [...] as of this encounter Visit Diagnoses Diagnosis Chronic pain syndrome documented in this encounter Advance Directives Latest [...] 9:12 AM 05/09/2003 10:12 AM Care Teams Automotive Porter Relationship Specialty Start Date End Date June, Henry Sylvester MD [address] [facility] [place] [address] PCP - General Family Medicine 03/11/22 documented as of this encounter
[2023-05-18 12:42] LABS: BUN Creatinine Ratio 23.5 (10-20); Creatinine Clr Calc Pharmacy 80.5 ml/min; Est GFR (African American) 90.8 ml/min; Est GFR (Non-African American) 78.4 ml/min; Magnesium 2.1 mg/dl (1.7-2.4); Phosphorus 2.3 mg/dl (2.5-4.9); Potassium 3.8 mmol/L (3.5-5.1)
--- NOTE | 2023-05-18 14:39 | Communication Note ---
Date of Service: May 18, 2023 The patient was seen and examined in emergency room. He was admitted early this morning with exacerbation of COPD and noted to have hypomagnesemia. Has been feeling better and the magnesium has been replaced. Will have a full progress note tomorrow. Dr Zahraa Taylor
[2023-05-18] MEDS: DOXYCYCLINE HYCLATE 100 MG CAP PO SCH (21:49)
[2023-05-19 07:14] LABS: Basophils # (auto) 0.02 K/uL (0.00-0.20); Basophils % (auto) 0.2 %; Eosinophils # (auto) 0.04 K/uL (0.00-0.50); Eosinophils % (auto) 0.3 %; Hematocrit (blood only) 35.7 % (42.0-52.0); Hemoglobin 12.4 g/dl (14.0-18.0); Immature Granulocytes # (auto) 0.05 K/uL (0.01-0.20); Immature Granulocytes % (auto) 0.4 %; Lymphocytes # (auto) 1.89 K/uL (1.20-3.40); Lymphocytes % (auto) 14.5 %; Mean Corpuscular Hemoglobin 31.5 pg (25.0-34.0); Mean Corpuscular Hgb Conc 34.7 g/dL (32.0-36.0); Mean Corpuscular Volume 90.6 fL (80.0-100.0); Monocytes # (auto) 1.01 K/uL (0.11-0.59); Monocytes % (auto) 7.8 %; Neutrophils # (auto) 10.01 K/uL (1.40-6.50); Neutrophils % (auto) 76.8 %; Platelet Count 239 K/uL (130-400); RDW Coefficient of Variation 14.9 % (11.5-14.5); RDW Standard Deviation 49.8 fL (36.4-46.3); Red Blood Count 3.94 M/uL (4.70-6.10); White Blood Count 13.02 K/ul (4.8-10.8)
[2023-05-19 07:35] LABS: Calcium 7.7 mg/dl (8.6-10.3); Creatinine Clr Calc Pharmacy 91.4 ml/min; Est GFR (African American) 102.1 ml/min; Est GFR (Non-African American) 88.1 ml/min; Phosphorus 2.9 mg/dl (2.5-4.9); Potassium 3.8 mmol/L (3.5-5.1)
[2023-05-19] MEDS: predniSONE 20 MG TAB PO SCH (09:53)
--- NOTE | 2023-05-19 16:41 | Hospitalist Progress Note ---
Date of Service May 19, 2023 Assessment & Plan (1) COPD (chronic obstructive pulmonary disease): Plan: COPD exacerbation/complicated bronchitis, no sepsis for now Rule out recurrent PE given pleuritic chest pain complaints CTA did not show any pulmonary embolism Emphysema with tracheobronchial secretions, bronchitis and mild mucous plugging No evidence of lobar pneumonia Will continue with current antibiotic with doxycycline, nebulized bronchodilator, steroid Clinically better Chronic diastolic heart failure, patient euvolemic to dry No evidence of fluid overload Other significant medical conditions remained stable as below: hx PVD, history of PE/aortic thrombus status post anticoagulation TAYLOR (CPAP intolerance) Hyperlipidemia, on statin Rx Prediabetes, hemoglobin A1c of 6.07 February 2023 Anxiety/mood disorder, patient anxious during exam Transaminitis secondary to NAFLD Ongoing tobacco abuse Nicotine replacement therapy as needed DVT prophylaxis. Lovenox subcu Full code. Text document was generated using [employer] recognition software. It may contain grammatical or spelling errors. Kindly contact undersigned for clarification of any documentation item in question. Admission and Anticipated Discharge Date Admission Date: May 18, 2023 Subjective 05/19/2023 The patient was seen and examined in medical telemetry unit He has been a little better today Still has significant cough Minimal wheezing and does not require any oxygen to maintain saturation Review of Systems Constitutional: All systems reviewed and are unremarkable except as mentioned below Physical Exam Physical Exam: Lying in bed with minimal distress due to cough Constitutional: well developed, well nourished, + ill appearing and + obese; no acute distress Eyes: PERRL, conjunctivae normal, anicteric sclerae ENMT: external ear and nose normal, oropharynx normal Neck: trachea midline, no thyromegaly Respiratory: no respiratory distress Auscultation: + diminished lung sounds, + crackles (Minimal wheezing) and + wheezes (Minimal wheezing) Cardiovascular: Rate/Rhythm: regular rate and regular rhythm; not tachycardic Heart Sounds: normal S1 and normal S2; no murmur Extremities: no edema Gastrointestinal (Abdomen): Inspection/Auscultation: normal bowel sounds; abdomen not distended Percussion/Palpation: abdomen soft; abdomen nontender Musculoskeletal: No acute arthritis involving any of the joints Neurologic: normal touch/pain/proprioception and moves all extremities; no focal motor deficits Psychiatric: A+Ox3, euthymic affect Lymphatic: no cervical or axillary lymphadenopathy Results & Data Results & Data Vital Signs (Past 12 Hours) Vital Signs Temp Pulse Pulse Resp BP Pulse Ox O2 Del Method 05/19/23 15:41 36.6 C 75 17 104/69 91 Room Air 05/19/23 14:54 75 05/19/23 13:02 88 16 93 Room Air 05/19/23 11:25 36.6 C 72 16 152/87 H 91 Room Air 05/19/23 08:00 80 05/19/23 07:41 36.7 C 80 17 118/71 92 Room Air 05/19/23 07:01 74 16 93 Room Air Laboratory Results Short CBC 05/19/23 Range/Units 06:48 WBC 13.02 H (4.8-10.8) K/ul Hgb 12.4 L (14.0-18.0) g/dl Hct 35.7 L (42.0-52.0) % Plt Count 239 (130-400) K/uL BMP 05/19/23 06:48 Sodium 141 Potassium 3.8 Chloride 109 H Carbon Dioxide 27 BUN 20 Creatinine 0.87 Glucose 124 H Calcium 7.7 L Medications Administered Current Inpatient Medications Acetaminophen (Acetaminophen 325 Mg Tab) 650 mg PO Q4H PRN PRN Reason: Pain or Fever Stop: 06/17/23 05:27 Aspirin (Aspirin 81 Mg Ectab) 81 mg PO QAM YUN Stop: 06/17/23 08:59 Last Admin: 05/19/23 09:56 Dose: 81 mg Atorvastatin Calcium (Atorvastatin 40 Mg Tab) 80 mg PO DAILY YUN Stop: 06/17/23 08:59 Last Admin: 05/19/23 09:53 Dose: 80 mg Bupropion HCl (Bupropion Sr 150 Mg Tabcr) 150 mg PO BID YUN Stop: 06/17/23 08:59 Last Admin: 05/19/23 09:55 Dose: 150 mg Cyanocobalamin (Cyanocobalamin (B-12) 500 Mcg Tablet) 1,000 mcg PO QAM YUN Stop: 06/17/23 08:59 Last Admin: 05/19/23 09:55 Dose: 1,000 mcg Doxycycline Hyclate (Doxycycline Hyclate 100 Mg Cap) 100 mg PO BID YUN Stop: 05/25/23 20:59 Last Admin: 05/19/23 10:02 Dose: 100 mg Enoxaparin Sodium (Enoxaparin Inj 40 Mg/0.4 Ml Syr) 40 mg SQ QAM [facility] Stop: 06/17/23 08:59 Last Admin: 05/19/23 11:21 Dose: 40 mg Fluticasone Furoate (Fluticasone Furoate 100mcg 14 Puffs/Inhaler) 1 puffs INH DAILY YUN Stop: 06/17/23 08:59 Last Admin: 05/19/23 09:57 Dose: 1 puffs Hydroxyzine HCl (Hydroxyzine Hcl 10 Mg Tab) 10 mg PO QID PRN PRN Reason: Anxiety Stop: 06/17/23 04:08 Promethazine HCl 6.25 mg/ (Sodium Chloride) 50.25 mls @ 201 mls/hr IV Q6H PRN PRN Reason: Nausea And Vomiting Stop: 06/17/23 04:10 Ipratropium [place] (Ipratropium [place] Neb Soln 0.02% 0.5mg/2.5ml Vial) 0.5 mg INH Q6R [facility] Stop: 06/17/23 06:59 Last Admin: 05/19/23 13:02 Dose: 0.5 mg Levalbuterol HCl (Levalbuterol 1.25 Mg/3 Ml Neb) 1.25 mg NEB Q6R [facility] Stop: 06/17/23 06:59 Last Admin: 05/19/23 13:01 Dose: 1.25 mg Oxycodone HCl (Oxycodone Hcl Ir 5 Mg Tab (Immediate Release)) 5 mg PO Q4H PRN PRN Reason: Pain Stop: 06/01/23 04:08 Pantoprazole Sodium (Pantoprazole 40 Mg Tab) 40 mg PO BID [facility] Stop: 06/17/23 08:59 Last Admin: 05/19/23 09:55 Dose: 40 mg Prednisone (Prednisone 20 Mg Tab) 40 mg PO DAILY [facility] Stop: 05/23/23 08:59 Last Admin: 05/19/23 09:53 Dose: 40 mg Pregabalin (Pregabalin 100 Mg Cap) 100 mg PO BID [facility] Stop: 06/17/23 08:59 Last Admin: 05/19/23 10:02 Dose: 100 mg Umeclidinium/Vilanterol (Umeclidinium/Vilanterol 62.5/25mcg 7 Puffs/Inhaler) 1 puffs INH DAILY YUN Stop: 06/17/23 08:59 Last Admin: 05/19/23 09:56 Dose: 1 puffs
[2023-05-19] MEDS: oxyCODONE HCL IR 5 MG TAB (IMMEDIATE RELEASE) PO PRN (16:59)
--- NOTE | 2023-05-19 23:12 | Electrocardiogram Report ---
Test Reason : Blood Pressure : / mmHG Vent. Rate : 100 BPM Atrial Rate : 100 BPM P-R Int : 158 ms QRS Dur : 072 ms QT Int : 342 ms P-R-T Axes : 086 055 038 degrees QTc Int : 441 ms Normal sinus rhythm Normal ECG When compared with ECG of 04-APR-2023 14:14, No significant change was found Confirmed by David Mehta ([id number]) on 05/19/2023 11:12:03 PM Referred By: REFERRED SELF Confirmed By:David Mehta
--- NOTE | 2023-05-20 12:49 | Hospitalist Progress Note ---
Date of Service May 20, 2023 Assessment & Plan (1) COPD (chronic obstructive pulmonary disease): Plan: COPD exacerbation/complicated bronchitis, no sepsis for now Rule out recurrent PE given pleuritic chest pain complaints CTA did not show any pulmonary embolism Emphysema with tracheobronchial secretions, bronchitis and mild mucous plugging No evidence of lobar pneumonia Will continue with current antibiotic with doxycycline, nebulized bronchodilator, steroid Clinically much better today and has been ambulating in the hallway without any difficulties Minimal cough but no significant wheezing He will be discharged home this afternoon Chronic diastolic heart failure, patient euvolemic to dry No evidence of fluid overload Will continue with his usual home medications Other significant medical conditions remained stable as below: hx PVD, history of PE/aortic thrombus status post anticoagulation TAYLOR (CPAP intolerance) Hyperlipidemia, on statin Rx Prediabetes, hemoglobin A1c of 6.07 February 2023 Anxiety/mood disorder, patient anxious during exam Transaminitis secondary to NAFLD Ongoing tobacco abuse Nicotine replacement therapy as needed DVT prophylaxis. Lovenox subcu Full code. Text document was generated using [employer] voice recognition software. It may contain grammatical or spelling errors. Kindly contact undersigned for clarification of any documentation item in question. Admission and Anticipated Discharge Date Admission Date: May 18, 2023 Subjective 05/19/2023 The patient was seen and examined in medical telemetry unit He has been a little better today Still has significant cough Minimal wheezing and does not require any oxygen to maintain saturation 05/20/2023 Patient was seen and examined in the medical telemetry unit He has been feeling much better and denies any significant symptoms Minimal cough and minimal shortness of breath on exertion No wheezing at rest Review of Systems Review of Systems: As per HPI, all other systems reviewed and negative Constitutional: All systems reviewed and are unremarkable except as mentioned below Physical Exam Physical Exam: Lying in bed with minimal distress due to cough Constitutional: well developed, well nourished, + ill appearing and + obese; no acute distress Eyes: PERRL, conjunctivae normal, anicteric sclerae ENMT: external ear and nose normal, oropharynx normal Neck: trachea midline, no thyromegaly Respiratory: no respiratory distress Auscultation: + diminished lung sounds and + wheezes (Minimal wheezing); no crackles (Minimal wheezing) Cardiovascular: Rate/Rhythm: regular rate and regular rhythm; not tachycardic Heart Sounds: normal S1 and normal S2; no murmur Extremities: no edema Gastrointestinal (Abdomen): Inspection/Auscultation: normal bowel sounds; abdomen not distended Percussion/Palpation: abdomen soft; abdomen nontender Neurologic: normal touch/pain/proprioception and moves all extremities; no focal motor deficits Psychiatric: A+Ox3, euthymic affect Lymphatic: no cervical or axillary lymphadenopathy Results & Data Results & Data Vital Signs (Past 12 Hours) Vital Signs Temp Pulse Pulse Resp BP Pulse Ox Pulse Ox 05/20/23 11:33 36.5 C 68 17 137/63 94 05/20/23 08:33 05/20/23 07:49 36.6 C 64 17 162/87 H 92 05/20/23 07:00 71 05/20/23 06:58 68 16 92 05/20/23 05:00 91 05/20/23 02:07 36.7 C 72 18 135/75 91 05/20/23 01:23 75 18 95 O2 Del Method O2 Del Method 05/20/23 11:33 Room Air 05/20/23 08:33 Room Air 05/20/23 07:49 Room Air 05/20/23 07:00 05/20/23 06:58 Room Air 05/20/23 05:00 Room Air 05/20/23 02:07 Room Air 05/20/23 01:23 Room Air Medications Administered Current Inpatient Medications Acetaminophen (Acetaminophen 325 Mg Tab) 650 mg PO Q4H PRN PRN Reason: Pain or Fever Stop: 06/17/23 05:27 Aspirin (Aspirin 81 Mg Ectab) 81 mg PO QAM [facility] Stop: 06/17/23 08:59 Last Admin: 05/20/23 07:52 Dose: 81 mg Atorvastatin Calcium (Atorvastatin 40 Mg Tab) 80 mg PO DAILY YUN Stop: 06/17/23 08:59 Last Admin: 05/20/23 07:52 Dose: 80 mg Bupropion HCl (Bupropion Sr 150 Mg Tabcr) 150 mg PO BID YUN Stop: 06/17/23 08:59 Last Admin: 05/20/23 07:53 Dose: 150 mg Cyanocobalamin (Cyanocobalamin (B-12) 500 Mcg Tablet) 1,000 mcg PO QAM [facility] Stop: 06/17/23 08:59 Last Admin: 05/20/23 07:51 Dose: 1,000 mcg Doxycycline Hyclate (Doxycycline Hyclate 100 Mg Cap) 100 mg PO BID [facility] Stop: 05/25/23 20:59 Last Admin: 05/20/23 07:51 Dose: 100 mg Enoxaparin Sodium (Enoxaparin Inj 40 Mg/0.4 Ml Syr) 40 mg SQ QAM [facility] Stop: 06/17/23 08:59 Last Admin: 05/20/23 07:56 Dose: 40 mg Fluticasone Furoate (Fluticasone Furoate 100mcg 14 Puffs/Inhaler) 1 puffs INH DAILY [facility]UN Stop: 06/17/23 08:59 Last Admin: 05/20/23 07:56 Dose: 1 puffs Hydroxyzine HCl (Hydroxyzine Hcl 10 Mg Tab) 10 mg PO QID PRN PRN Reason: Anxiety Stop: 06/17/23 04:08 Promethazine HCl 6.25 mg/ (Sodium Chloride) 50.25 mls @ 201 mls/hr IV Q6H PRN PRN Reason: Nausea And Vomiting Stop: 06/17/23 04:10 Ipratropium [place] (Ipratropium [place] Neb Soln 0.02% 0.5mg/2.5ml Vial) 0.5 mg INH Q6R [facility] Stop: 06/17/23 06:59 Last Admin: 05/20/23 06:58 Dose: 0.5 mg Levalbuterol HCl (Levalbuterol 1.25 Mg/3 Ml Neb) 1.25 mg NEB Q6R [facility] Stop: 06/17/23 06:59 Last Admin: 05/20/23 06:58 Dose: 1.25 mg Oxycodone HCl (Oxycodone Hcl Ir 5 Mg Tab (Immediate Release)) 5 mg PO Q4H PRN PRN Reason: Pain Stop: 06/01/23 04:08 Last Admin: 05/19/23 16:59 Dose: 5 mg Pantoprazole Sodium (Pantoprazole 40 Mg Tab) 40 mg PO BID [facility] Stop: 06/17/23 08:59 Last Admin: 05/20/23 07:52 Dose: 40 mg Prednisone (Prednisone 20 Mg Tab) 40 mg PO DAILY [facility] Stop: 05/23/23 08:59 Last Admin: 05/20/23 07:51 Dose: 40 mg Pregabalin (Pregabalin 100 Mg Cap) 100 mg PO BID [facility] Stop: 06/17/23 08:59 Last Admin: 05/20/23 07:57 Dose: 100 mg Umeclidinium/Vilanterol (Umeclidinium/Vilanterol 62.5/25mcg 7 Puffs/Inhaler) 1 puffs INH DAILY [facility] Stop: 06/17/23 08:59 Last Admin: 05/20/23 07:56 Dose: 1 puffs
--- NOTE | 2023-05-21 07:18 | Discharge Summary ---
Date of Service May 20, 2023 Admission HPI Per Admitting Provider History obtained from patient and records. Medical history significant for chronic diastolic heart failure (EF 60 to 65%, TTE 2023), COPD, PVD, history of PE/aortic thrombus status post anticoagulation, TAYLOR (CPAP intolerance), histoplasmosis as per records, hyperlipidemia, fatty liver as per records prediabetes, anxiety/mood disorder, ongoing tobacco abuse. Last confinement March 2023 for COPD exacerbation. 2 weeks ago, patient noted intermittent chest pain symptoms. Patient later noted junky cough symptoms and pleuritic chest pain and worsening shortness of breath. Not sure about sick contacts. Denies aspiration. Patient still uncomfortable despite multiple neb treatments at the ER. 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 Admission Exam Per Admitting Provider Physical Exam: GENERAL: uncomfortable, obese, anxious, respiratory distress SKIN: Normal color, warm HEENT: Partial alopecia, bespectacled, pink palpebral conjunctivae, no ptosis, dry buccal mucosa, O2 mask in place NECK : Supple, no tenderness CHEST : Decreased breath sounds, expiratory wheezes, no tenderness HEART : RRR, no obvious murmurs ABDOMEN: Some distention, nontender EXTREMITIES : No LE swelling/tenderness, no other conspicuous deformities noted NEUROLOGIC : Coherent, no facial asymmetry, no other gross focality Principal Diagnosis COPD exacerbation, acute bronchitis, chronic diastolic heart failure Discharge Exam Lying in bed with minimal distress due to cough Constitutional well developed, well nourished, + ill appearing and + obese; no acute distress Eyes PERRL, conjunctivae normal, anicteric sclerae ENMT external ear and nose normal, oropharynx normal Neck trachea midline, no thyromegaly Respiratory no respiratory distress Auscultation: + diminished lung sounds and + wheezes (Minimal wheezing); no crackles (Minimal wheezing) Cardiovascular Rate/Rhythm: regular rate and regular rhythm; not tachycardic Heart Sounds: normal S1 and normal S2; no murmur Extremities: no edema Gastrointestinal (Abdomen) Inspection/Auscultation: normal bowel sounds; abdomen not distended Percussion/Palpation: abdomen soft; abdomen nontender Neurologic normal touch/pain/proprioception and moves all extremities; no focal motor deficits Psychiatric A+Ox3, euthymic affect Lymphatic no cervical or axillary lymphadenopathy Discharge Data Allergies Allergy/AdvReac Type Severity Reaction Status Date / Time fluticasone furoate Allergy Intermediate lightheadedness Verified 04/25/23 10:10 [From Trelegy Ellipta] and nausea umeclidinium Allergy Intermediate lightheadedness Verified 04/25/23 10:10 [From Trelegy Ellipta] and nausea vilanterol Allergy Intermediate lightheadedness Verified 04/25/23 10:10 [From Trelegy Ellipta] and nausea Ordered Studies 05/18/23 03:21 CT angio chest PE protocol Stat Hospital Course (1) COPD (chronic obstructive pulmonary disease): COPD exacerbation/complicated bronchitis, no sepsis for now Rule out recurrent PE given pleuritic chest pain complaints CTA did not show any pulmonary embolism Emphysema with tracheobronchial secretions, bronchitis and mild mucous plugging No evidence of lobar pneumonia Will continue with current antibiotic with doxycycline, nebulized bronchodilator, steroid Clinically much better today and has been ambulating in the hallway without any difficulties Minimal cough but no significant wheezing He will be discharged home this afternoon Chronic diastolic heart failure, patient euvolemic to dry No evidence of fluid overload Will continue with his usual home medications Other significant medical conditions remained stable as below: hx PVD, history of PE/aortic thrombus status post anticoagulation TAYLOR (CPAP intolerance) Hyperlipidemia, on statin Rx Prediabetes, hemoglobin A1c of 6.07 February 2023 Anxiety/mood disorder, patient anxious during exam Transaminitis secondary to NAFLD Ongoing tobacco abuse Nicotine replacement therapy as needed DVT prophylaxis. Lovenox subcu Full code. Text document was generated using [employer] voice recognition software. It may contain grammatical or spelling errors. Kindly contact undersigned for clarification of any documentation item in question. Total Time Total Time Spent Total Time Spent (In Minutes): 40 minutes Discharge Plan Discharge Items Patient Disposition: Home - Self-Care Reason For Visit: COPD EX Discharge Diagnosis: COPD exacerbation, acute bronchitis, chronic diastolic heart failure Condition on Discharge: Good Activity: Resume your previous activity Non-emergency contact: Primary Care Provider Call non-emergency contact if: you have any medication questions and your symptoms worsen Follow-up/Referrals: Ajit Moreno MD [Primary Care Provider] - (Date & Time 05/27/2023 3:20 PM Provider Ajit Moreno MD Department [facility] ) Diet: Heart Healthy Addtl Attending Provider Instructions: Please take precautions to avoid falls Take your medications as advised Pl keep appointments with the healthcare providers Pending Studies at Discharge: No Stand-Alone Forms: [facility], Smoking Cessation Medications and DC Order Prescriptions: New doxycycline hyclate 100 mg Capsule 100 mg PO BID Qty: 10 0RF prednisone 20 mg Tablet 40 mg PO DAILY 3 Days Qty: 6 0RF Continued Trelegy Ellipta 100-62.5-25 mcg blister with device 1 inh inhalation DAILY Qty: 60 6RF albuterol sulfate 90 mcg/actuation HFA aerosol inhaler 2 puff INHALATION Q4H PRN (Reason: Shortness Of Breath Or Wheezing) Qty: 8.5 3RF guaifenesin [Mucinex] 600 mg tablet extended release 12hr 600 mg PO BID PRN (Reason: congestion) Qty: 60 1RF Rx Instructions: Take 1 tab p.o. twice a day for 7 days and then as needed pregabalin [Lyrica] 100 mg Capsule 100 mg PO BID meclizine 12.5 mg tablet 12.5 mg PO TID PRN (Reason: Dizziness) cyanocobalamin (vitamin B-12) [Vitamin B-12] 1,000 mcg Tablet 1,000 mcg PO QAM atorvastatin [Lipitor] 80 mg tablet 80 mg PO DAILY Qty: 30 0RF aspirin 81 mg Tablet,Delayed Release (Dr/Ec) 81 mg PO QAM Qty: 30 0RF prednisone 20 mg tablet 40 mg PO QAM PRN (Reason: RESCUE KIT) Rx Instructions: RESCUE KIT, TAKE FOR 5 DAYS. bupropion HCl [Wellbutrin SR] 150 mg Tablet Sustained-Release 12 Hr 150 mg PO BID ondansetron 8 mg Tablet,Disintegrating 8 mg PO Q8H PRN (Reason: Nausea) clobetasol 0.05 % Cream 1 applic TOPICAL BID PRN (Reason: Rash) triamcinolone acetonide 0.1 % Cream 1 applic TOPICAL BID PRN (Reason: Rash) levalbuterol HCl 1.25 mg/3 mL solution for nebulization 1.25 mg INHALATION Q4H PRN (Reason: Wheezing) pantoprazole [Protonix] 40 mg tablet,delayed release (DR/EC) 40 mg PO BID 30 Days Qty: 60 2RF Discharge Orders: Discharge Order (Routine); Ordered 05/20/23 Ordered By: Anthony Taylor Admission Data Admit Date/Time: 05/18/23 04:07 Attending Provider: Anthony Taylor Admit Provider: Joselito Granda Primary Care Provider: Ajit Moreno Other Interventions: Discharge Summary Assessment (RN) Last Done: 05/20/23 14:12
== END 2023-05-20 15:09 | disposition home or self-care (01) | DRG 191 ==
LOC: ED 20:14 → EDINP 05-18 04:07 → 2N 05-18 05:28

== ENCOUNTER 2023-06-13 10:04 | Inpatient (IN) ==
--- NOTE | 2023-06-13 10:37 | Emergency Department Note ---
Impression & Plan Acute neck pain, Elevated troponin I level ED Provider Note NAME: ANGELES BURLESON AGE: 67 SEX: M : 1955 ARRIVES VIA: Ambulance INFORMANT: Patient, ED PROVIDER(S): José Luis Lenz DO CHIEF COMPLAINT: Neck pain HPI: The patient is a 67-year-old male who presented to the emergency department for an evaluation of neck pain. The patient had a gradual onset of neck pain over the last 24 hours. The pain worsened over the course of the night and the patient had to call 911 to come to the hospital. He did not take any medication prior to arrival. He denies any specific injury but does relate that he was fishing over the weekend. He also relates that he has a sore throat. He denies having any chest pain or difficulty breathing. He denies having any weakness in the legs. The patient denies having any fevers. He was not seen by his family doctor but came to the emergency department for further evaluation immediately. ROS: See above HPI for pertinent positives & negatives. A total of 10 systems reviewed and were otherwise negative. PAST MEDICAL HISTORY: See Below PAST SURGICAL HISTORY: See Below FAMILY HISTORY: See Below SOCIAL HISTORY: See Below HOME MEDICATIONS: See Below ALLERGIES: See Below VITALS: See Below PHYSICAL EXAMINATION: GENERAL: The patient is awake and alert. The patient is very anxious and appears to be uncomfortable. EYES: The conjunctivae are clear. The pupils are round and reactive. EARS, NOSE, MOUTH AND THROAT: The nose is without any evidence of any deformity. Mucous members are moist. There is no erythema in the oropharynx. NECK: There is significant tenderness in the posterior cervical spine. There is muscle spasm especially on the right. Range of motion is limited secondary to pain. RESPIRATORY: Normal respiratory effort is noted there is no evidence of wheezing rhonchi or rales CARDIOVASCULAR: Regular rate and rhythm noted there no murmurs rubs or gallops normal S1 normal S2. GASTROINTESTINAL: The abdomen is soft. Abdomen is nontender. BACK: No midline tenderness or or step-off noted range of motion in flexion extension as well as rotation no signs of muscle spasm noted MUSCULOSKELETAL/EXTREMITIES: There is no evidence of gross deformity full range of motion is noted in the hips and shoulders. SKIN: There is no obvious evidence of any rash. There are no petechiae, pallor or cyanosis noted. NEUROLOGIC: Patient is awake alert and oriented x3 strength is symmetric patellar reflexes are 2+ bilaterally MEDICAL DECISION MAKING: The patient is a 67-year-old male who presented to the emergency department for an evaluation of neck pain. The patient had a rather abrupt onset of neck pain over the course of the evening. On my physical exam the patient appeared to be in very significant pain. The pain was reproducible. There was no focal neurologic deficits. There was no reported trauma. I discussed the patient's laboratory and radiographic studies with him. He was treated with pain medication in the emergency department. On reevaluation he was feeling improved but he required some which pain medication his oxygen saturation had dropped. He was placed on supplemental oxygen. No definite cause for the patient's pain could be found although his troponin was slightly elevated. This was repeated and was in the normal range. I [facility] the [facility] They have agreed to evaluate the patient in the emergency department for further management as well as possible further testing. Triage Nursing notes reviewed. Prior medical records reviewed Vital Signs: reviewed and remarkable for hypoxia. Differential diagnosis: Cervical strain, fracture, cervical disc disease, lymphadenitis, meningitis, tumor, arterial dissection, thyroiditis, parotitis, mastoiditis, neurologic, cardiovascular, as well as other pathologies. ER treatment provided: See below Diagnostics interpreted by me: ECG: EKG was obtained in the emergency department. My interpretation is normal sinus rhythm at 78 bpm. There is no ectopy. There is no acute ST segment abnormalities noted. This was compared to a tracing from May 17, 2023. No changes were noted. Cardiac Monitoring: An order was placed for continuous cardiac monitoring. The monitor shows a rate of 80 bpm with sinus rhythm. Laboratory studies: As stated above and show below. Imaging studies: See below. Radiographic imaging was reviewed by myself Consultation(s): I discussed this case with Jayashree who is [facility]. Past Med/Surg History Medical History Acute respiratory failure with hypoxemia Chronic respiratory failure On oxygen at night in the past - but no longer needs per patient Hx of migraines Sleep apnea No device History of COVID-19 2019, moderate symptoms > resolved 2020, mild symptoms > resolved Post-nasal drip Chronic - stable HLD (hyperlipidemia) TAYLOR (obstructive sleep apnea) Cannot tolerate device Anxiety Pneumothorax Hx- complication from pain injection- resolved COPD, moderate Breathing stable Neuropathy GERD (gastroesophageal reflux disease) Well controlled and stable Histoplasmosis 2002- treated Diaphragmatic hernia Thoracic spinal stenosis Surgical History History of esophagogastroduodenoscopy (EGD) Hx of colonoscopy History of open reduction and internal fixation (ORIF) procedure right shoulder History of total replacement of left shoulder joint History of sinus surgery History of placement of chest tube History of hand surgery Left femoral shaft fracture Dutch placed H/O total hip arthroplasty left side H/O elbow surgery H/O exploratory thoracotomy "Left thoracotomy wedge biopsy of left upper lobe with excision of lesion or nodule & frozen section 2002" [facility] open no mesh [facility]" Family History Father Heart disease Hypertension Brother Cancer Hypertension Stroke Heart disease Mother Cancer Other Leukemia No family history of bleeding disorder Non-Hodgkin lymphoma Denies family history of Hearing loss Asthma Social History Smoking Status: Current every day smoker Tobacco Type: Cigarettes Age Started Using Tobacco: 11; packs per day: 1; Cigarettes Per Day: 10 cigs /day; Second Hand Exposure: No; Do You Dip or Chew Tobacco: No; Hx Alcohol Use: No Hx Substance Use: No Preferred Language: Telugu Communication Ability: Effective Improvement Coordinator Required: No Beliefs That Will Affect Care: None marital status: Current Living Situation: Spouse current occupational status: unemployed Feels Safe at Home: Yes Assistive Devices: Oxygen - at Night and Walker Allergies Allergies Allergy/AdvReac Type Severity Reaction Status Date / Time fluticasone furoate Allergy Intermediate lightheadedness Verified 04/25/23 10:10 [From Trelegy Ellipta] and nausea umeclidinium Allergy Intermediate lightheadedness Verified 04/25/23 10:10 [From Trelegy Ellipta] and nausea vilanterol Allergy Intermediate lightheadedness Verified 04/25/23 10:10 [From Trelegy Ellipta] and nausea Home Meds Home Medications Medication Instructions Recorded Confirmed pregabalin 100 mg capsule (Lyrica) 100 mg PO BID 10/16/17 05/17/23 meclizine 12.5 mg tablet 12.5 mg PO TID PRN Dizziness 06/28/21 05/18/23 prednisone 20 mg tablet 40 mg PO QAM PRN RESCUE KIT 04/05/22 05/18/23 bupropion HCl 150 mg tablet,12 hr 150 mg PO BID 04/07/22 05/18/23 sustained-release (Wellbutrin SR) ondansetron 8 mg disintegrating 8 mg PO Q8H PRN Nausea 04/07/22 05/18/23 tablet clobetasol 0.05 % topical cream 1 applic topical BID PRN Rash 12/29/22 05/18/23 levalbuterol HCl 1.25 mg/3 mL 1.25 mg inhalation Q4H PRN Wheezing 12/29/22 05/17/23 solution for nebulization triamcinolone acetonide 0.1 % 1 applic topical BID PRN Rash 12/29/22 05/18/23 topical cream cyanocobalamin (vitamin B-12) 1,000 mcg PO QAM 03/08/23 05/18/23 1,000 mcg tablet (Vitamin B-12) Previous Rx's Medication Instructions Recorded aspirin 81 mg tablet,delayed 81 mg PO QAM #30 tabs 03/11/23 release atorvastatin 80 mg tablet (Lipitor) 80 mg PO DAILY #30 tabs 03/11/23 pantoprazole 40 mg tablet,delayed 40 mg PO BID 30 days #60 tabs 04/06/23 release (Protonix) albuterol sulfate 90 mcg/actuation 2 puff inhalation Q4H PRN 04/26/23 aerosol inhaler Shortness Of Breath Or Wheezing #8.5 grams fluticasone fur. 100 mcg-umeclid 1 inh inhalation DAILY #60 ea 04/26/23 62.5 mcg-vilant 25 mcg inhalat.powder (Trelegy Ellipta) guaifenesin 600 mg tablet, 600 mg PO BID PRN congestion #60 04/26/23 extended release 12 hr (Mucinex) tabs doxycycline hyclate 100 mg capsule 100 mg PO BID #10 caps 05/20/23 Results & Data (ED) Vital Signs Vital Signs - 24 hr 06/13/23 10:05 06/13/23 10:26 06/13/23 12:42 Temperature 36.9 C Temperature Source Oral Pulse Rate 81 78 Pulse Rate [Apical] 80 Respiratory Rate 27 H 21 Respiratory Pattern Tachypnea Blood Pressure 157/83 H Blood Pressure [Left Arm] 115/76 Blood Pressure Mean 107 Blood Pressure Mean [Left Arm] 89 Blood Pressure Position [Left Arm] Lying Pulse Oximetry 95 85 L Oxygen Delivery Method Room Air Room Air Sepsis Recent Fever Within 48 Hours No Sepsis New/Unexplained Change in Mental Status No Sepsis Action Taken by Nursing No Action Required Home Medications Current Medication List: was personally reviewed by me Laboratory Data Attestation: I reviewed the patient's lab results. 06/13/23 10:15 06/13/23 10:15 Lab Results 06/13/23 06/13/23 06/13/23 Range/Units 10:15 10:29 12:18 WBC 11.51 H (4.8-10.8) K/ul RBC 4.43 L (4.70-6.10) M/uL Hgb 13.8 L (14.0-18.0) g/dl Hct 41.4 L (42.0-52.0) % MCV 93.5 (80.0-100.0) fL MCH 31.2 (25.0-34.0) pg MCHC 33.3 (32.0-36.0) g/dL RDW Std Deviation 51.7 H (36.4-46.3) fL RDW Coeff of Jaz 15.0 H (11.5-14.5) % Plt Count 363 (130-400) K/uL MPV 11.3 (9.4-12.4) fL Immature Gran % (Auto) 0.4 % Neut % (Auto) 71.5 % Lymph % (Auto) 15.6 % [place] % (Auto) 10.1 % Eos % (Auto) 2.0 % Baso % (Auto) 0.4 % Neut # (Auto) 8.23 H (1.40-6.50) K/uL Lymph # (Auto) 1.79 (1.20-3.40) K/uL [place] # (Auto) 1.16 H (0.11-0.59) K/uL Eos # (Auto) 0.23 (0.00-0.50) K/uL Baso # (Auto) 0.05 (0.00-0.20) K/uL Immature Gran # (Auto) 0.05 (0.01-0.20) K/uL PT 10.9 (9.0-12.0) Seconds INR 1.0 (0.9-1.1) APTT 25 (21-31) Seconds PTT Ratio 0.9 Sodium 142 (136-145) mmol/L Potassium 4.1 (3.5-5.1) mmol/L Chloride 107 (98-107) mmol/L Carbon Dioxide 29 (21-32) mmol/L Anion Gap 6 (3-11) BUN 16 (6-23) mg/dl Creatinine 0.65 (0.6-1.4) mg/dl Est Cr Clr Drug Dosing 115.6 ml/min Est GFR ( Amer) 115.1 ml/min Est GFR (Non-Af Amer) 99.3 ml/min BUN/Creatinine Ratio 24.6 H (10-20) Glucose 97 (70-99(Fasting)) mg/dl Calcium 8.1 L (8.6-10.3) mg/dl Total Bilirubin 0.7 (0.2-1.0) mg/dl AST 72 H (13-39) U/L ALT 98 H (7-52) U/L Alkaline Phosphatase 105 H (34-104) U/L Troponin I High Sens 25.5 H 18.9 D (0-20) pg/ml Total Protein 6.2 (6.0-8.3) gm/dl Albumin 3.6 (3.4-5.0) gm/dl Globulin 2.6 (2.5-4.0) gm/dl Albumin/Globulin Ratio 1.4 (0.9-2) Lipase 19 (11-82) U/L Urine Color Yellow Urine Appearance Clear (Clear) Urine pH 7.5 (4.5-7.5) Ur Specific [place] 1.011 (1.000-1.030) Urine Protein Negative (Negative) Urine Glucose (UA) Negative (Negative) Urine Ketones Negative (Negative) Urine Blood Negative (Negative) Urine Nitrite Negative (Negative) Urine Bilirubin Negative (Negative) Urine Urobilinogen Negative (Negative) Ur Leukocyte Esterase Negative (Negative) Lyme Disease Screen Negative (Negative) Administered Medications Morphine Sulfate (Morphine Sulfate 4 Mg/Ml 1 Ml Carp\\Vial) 4 mg IV Q15M PRN PRN Reason: Pain Stop: 06/27/23 10:31 Last Admin: 06/13/23 11:09 Dose: 4 mg Documented By: Admin: 06/13/23 10:54 Dose: 4 mg Documented By: Admin: 06/13/23 10:41 Dose: 4 mg Documented By: AMINAH Discontinued Medications Aspirin (Aspirin Chew 324 Mg) 324 mg PO NOW STA Stop: 06/13/23 12:13 Last Admin: 06/13/23 12:37 Dose: 324 mg Documented By: BAIRON Hydromorphone HCl (Hydromorphone Inj 1 Mg/Ml Syringe) 1 mg IV NOW STA Stop: 06/13/23 12:13 Last Admin: 06/13/23 12:38 Dose: 1 mg Documented By: BAIRON Sodium Chloride (Nss) 500 mls @ 999 mls/hr IV .Q31M STA Stop: 06/13/23 11:02 Last Infusion: 06/13/23 11:14 Dose: Infused Documented By: Admin: 06/13/23 10:41 Dose: 999 mls/hr Documented By: AMINAH Ketorolac Tromethamine (Ketorolac Tromethamine 15 Mg/Ml Vial) 10 mg IV NOW ONE Stop: 06/13/23 11:17 Last Admin: 06/13/23 11:28 Dose: 10 mg Documented By: BAIRON Ondansetron HCl (Ondansetron Inj 2 Mg/Ml 2 Ml Vial) 4 mg IV NOW STA Stop: 06/13/23 10:33 Last Admin: 06/13/23 10:41 Dose: 4 mg Documented By: AMINAH Imaging Data Attestation: I personally reviewed and interpreted this imaging study as follows: My Impression: 1 view chest x-ray was obtained in the emergency department. My interpretation is no free air or definite infiltrate, final report below. Radiologist's Impression: Cervical Spine CT 06/13/23 10:32 CT OF THE CERVICAL SPINE WITHOUT CONTRAST CLINICAL HISTORY: Severe neck pain. COMPARISON STUDY: Cervical spine CT April 17, 2023. TECHNIQUE: Helical axial images of the cervical spine were obtained without IV contrast. Sagittal and coronal reconstructions were viewed. Automated exposure control was utilized for the study. A dose lowering technique was utilized adhering to the principles of ALARA. FINDINGS: Evaluation of the mid to lower cervical spine is mildly compromised by artifact. Alignment of the cervical spine is anatomic. Vertebral body heights are maintained. No acute cervical spine fracture or subluxation is present. There is no prevertebral edema. Facet joints are intact. Central canal and neural foramina are suboptimally assessed given CT technique. Moderate multilevel degenerative disc disease and facet arthrosis is present. IMPRESSION: 1. No acute cervical spine fracture or subluxation. 2. Moderate degenerative changes within the cervical spine. 3. Exam mildly compromised by artifact. ACT 112: Negative or not required by law. Electronically signed by: Jose A Hernandez M.D. 06/13/2023 12:26 PM Chest X-Ray 06/13/23 10:33 XR chest 1V portable CLINICAL HISTORY: right neck pain TECHNIQUE: Single frontal radiograph of the chest was obtained. Comparison: Comparison is made to chest radiograph 05/17/2023 FINDINGS: Bilateral shoulder arthroplasty seen. The cardiomediastinal silhouette is normal. The lungs are clear. No evidence of pleural effusion or pneumothorax. IMPRESSION: No acute chest disease. ACT 112: Negative or not required by law. Electronically signed by: Florin Soto M.D. 06/13/2023 11:47 AM Discharge Plan Visit Data Chief Complaint: Neck Injury/Pain Stated Complaint: NECK PAIN/STIFFNESS ED Provider: José Luis Lenz Discharge Problem: Acute neck pain, Elevated troponin I level Patient Disposition: Being Evaluated by Hospitalist Forms Stand Alone Forms: [facility] Prescriptions Prescriptions: No Action Trelegy Ellipta 100-62.5-25 mcg blister with device 1 inh inhalation DAILY Qty: 60 6RF albuterol sulfate 90 mcg/actuation HFA aerosol inhaler 2 puff INHALATION Q4H PRN (Reason: Shortness Of Breath Or Wheezing) Qty: 8.5 3RF guaifenesin [Mucinex] 600 mg tablet extended release 12hr 600 mg PO BID PRN (Reason: congestion) Qty: 60 1RF Rx Instructions: Take 1 tab p.o. twice a day for 7 days and then as needed pregabalin [Lyrica] 100 mg Capsule 100 mg PO BID meclizine 12.5 mg tablet 12.5 mg PO TID PRN (Reason: Dizziness) cyanocobalamin (vitamin B-12) [Vitamin B-12] 1,000 mcg Tablet 1,000 mcg PO QAM atorvastatin [Lipitor] 80 mg tablet 80 mg PO DAILY Qty: 30 0RF aspirin 81 mg Tablet,Delayed Release (Dr/Ec) 81 mg PO QAM Qty: 30 0RF prednisone 20 mg tablet 40 mg PO QAM PRN (Reason: RESCUE KIT) Rx Instructions: RESCUE KIT, TAKE FOR 5 DAYS. bupropion HCl [Wellbutrin SR] 150 mg Tablet Sustained-Release 12 Hr 150 mg PO BID ondansetron 8 mg Tablet,Disintegrating 8 mg PO Q8H PRN (Reason: Nausea) clobetasol 0.05 % Cream 1 applic TOPICAL BID PRN (Reason: Rash) triamcinolone acetonide 0.1 % Cream 1 applic TOPICAL BID PRN (Reason: Rash) levalbuterol HCl 1.25 mg/3 mL solution for nebulization 1.25 mg INHALATION Q4H PRN (Reason: Wheezing) doxycycline hyclate 100 mg Capsule 100 mg PO BID Qty: 10 0RF pantoprazole [Protonix] 40 mg tablet,delayed release (DR/EC) 40 mg PO BID 30 Days Qty: 60 2RF Referrals Referrals: Ajit Moreno MD [Primary Care Provider] -
[2023-06-13] MEDS: SODIUM CHLORIDE 0.9% 500 ML IV STA (10:41)
[2023-06-13] MEDS: MoRPHine SULFATE 4 MG/ML 1 ML CARP\\VIAL IV PRN (10:41)
[2023-06-13] MEDS: ONDANSETRON INJ 2 MG/ML 2 ML VIAL IV STA (10:41)
[2023-06-13 11:04] LABS: Partial Thromboplastin Ratio 0.9; Partial Thromboplastin Time 25 Seconds (21-31); Prothrombin Time 10.9 Seconds (9.0-12.0)
[2023-06-13 11:09] LABS: Basophils # (auto) 0.05 K/uL (0.00-0.20); Basophils % (auto) 0.4 %; Eosinophils # (auto) 0.23 K/uL (0.00-0.50); Hematocrit (blood only) 41.4 % (42.0-52.0); Hemoglobin 13.8 g/dl (14.0-18.0); Immature Granulocytes # (auto) 0.05 K/uL (0.01-0.20); Immature Granulocytes % (auto) 0.4 %; Lymphocytes # (auto) 1.79 K/uL (1.20-3.40); Lymphocytes % (auto) 15.6 %; Mean Corpuscular Hemoglobin 31.2 pg (25.0-34.0); Mean Corpuscular Hgb Conc 33.3 g/dL (32.0-36.0); Mean Corpuscular Volume 93.5 fL (80.0-100.0); Mean Platelet Volume 11.3 fL (9.4-12.4); Monocytes # (auto) 1.16 K/uL (0.11-0.59); Monocytes % (auto) 10.1 %; Neutrophils # (auto) 8.23 K/uL (1.40-6.50); Neutrophils % (auto) 71.5 %; Platelet Count 363 K/uL (130-400); RDW Standard Deviation 51.7 fL (36.4-46.3); Red Blood Count 4.43 M/uL (4.70-6.10); White Blood Count 11.51 K/ul (4.8-10.8)
[2023-06-13 11:11] LABS: Appearance Urine Clear (Clear); Bilirubin Urine Negative (Negative); Blood Urine Negative (Negative); Color Urine Yellow; Glucose Urine UA Negative (Negative); Ketones Urine Negative (Negative); Leukocyte Esterase Urine Negative (Negative); Nitrite Urine Negative (Negative); Protein Urine Negative (Negative); Specific Gravity Urine 1.011 (1.000-1.030); Urobilinogen Urine Negative (Negative); pH Urine 7.5 (4.5-7.5)
[2023-06-13 11:18] LABS: Albumin Globulin Ratio 1.4 (0.9-2); Albumin Level 3.6 gm/dl (3.4-5.0); BUN Creatinine Ratio 24.6 (10-20); Bilirubin,Total 0.7 mg/dl (0.2-1.0); Calcium 8.1 mg/dl (8.6-10.3); Creatinine Clr Calc Pharmacy 115.6 ml/min; Est GFR (African American) 115.1 ml/min; Est GFR (Non-African American) 99.3 ml/min; Globulin 2.6 gm/dl (2.5-4.0); Potassium 4.1 mmol/L (3.5-5.1); Total Protein 6.2 gm/dl (6.0-8.3)
[2023-06-13 11:23] LABS: Troponin I High Sensitivity 25.5 pg/ml (0-20)
[2023-06-13] MEDS: KETOROLAC TROMETHAMINE 15 MG/ML VIAL IV ONE (11:28)
--- NOTE | 2023-06-13 11:48 | XRay Report ---
XR chest 1V portable CLINICAL HISTORY: right neck pain TECHNIQUE: Single frontal radiograph of the chest was obtained. Comparison: Comparison is made to chest radiograph 05/17/2023 FINDINGS: Bilateral shoulder arthroplasty seen. The cardiomediastinal silhouette is normal. The lungs are clear . No evidence of pleural effusion or pneumothorax. IMPRESSION: No acute chest disease. ACT 112: Negative or not required by law. Electronically signed by: Florin Soto M.D. 06/13/2023 11:47 AM
--- NOTE | 2023-06-13 12:27 | CT Scan Report ---
CT OF THE CERVICAL SPINE WITHOUT CONTRAST CLINICAL HISTORY: Severe neck pain. COMPARISON STUDY: Cervical spine CT April 17, 2023. TECHNIQUE: Helical axial images of the cervical spine were obtained without IV contrast. Sagittal a nd coronal reconstructions were viewed. Automated exposure control was utilized for the study. A do se lowering technique was utilized adhering to the principles of ALARA. FINDINGS: Evaluation of the mid to lower cervical spine is mildly compromised by artifact. Alignment of the cervical spine is anatomic. Vertebral body heights are maintained. No acute cervical spine fra cture or subluxation is present. There is no prevertebral edema. Facet joints are intact. Central ca nal and neural foramina are suboptimally assessed given CT technique. Moderate multilevel degenerativ e disc disease and facet arthrosis is present. IMPRESSION: 1. No acute cervical spine fracture or subluxation. 2. Moderate degenerative changes within the cervical spine. 3. Exam mildly compromised by artifact. ACT 112: Negative or not required by law. Electronically signed by: Jose A Hernandez M.D. 06/13/2023 12:26 PM
[2023-06-13] MEDS: ASPIRIN CHEW 324 MG PO STA (12:37)
[2023-06-13] MEDS: HYDROmorphone INJ 1 MG/ML SYRINGE IV STA (12:38)
[2023-06-13 13:15] LABS: Troponin I High Sensitivity 18.9 pg/ml (0-20)
--- NOTE | 2023-06-13 14:17 | History & Physical Report ---
Date of Service June 13, 2023 Assessment & Plan (1) Acute neck pain: Plan: Appears musculoskeletal. Other causes in the differential include but are not limited to referred cardiac pain but there is no current chest pain, trop went from 25 to 18, and there are no EGK changes that are consistent with acute ischemia, aortic dissection, however, there is no change in bilateral BP, no cardiac murmurs or aortic or iliac bruits on auscultation and no nausea. Acute disc herniation is possible and will consider an MRI once his pain is under better control and he is able to tolerate this. Infection appears less likely given the lack of fevers, chills and no leukocytosis or other infectious symptoms. He also denies being bitten by anything while out fishing. Cancer also appears less likely given no h/o malignancy reported and no constitutional symptoms ongoing. Will start with Motrin and diazepam for pain control and muscle relaxation, respectively to see how this improves his pain. Dilaudid and morphine IV caused hypoxia in the ER, so we want to try and avoid additional narcotics if able. Consider c-spine MRI in am or when able to tolerate. Will also check inflammatory markers and CK. Consider PMR as a diagnosis here with consideration of a prednisone trial if conservative measures for pain control are not effective. (2) Elevated troponin I level: Plan: Slight elevation in trop to 25 with the repeat trending back down to 18 which is within normal range. Doubt ACS for reasons noted above. Cont to monitor on telemetry. (3) COPD (chronic obstructive pulmonary disease): Plan: chronic, stable. Cont home inhalers. (4) Thrombus of aorta: Plan: chronic, noted on prior imaging. Discussed with vascular surgery who placed him on apixaban in Apr 02. However, when he went to see his atomic spectroscopist, there was a communication that the apixaban was for a PE, which was not actually present and the apixaban was stopped. As it was actually for the thrombus, this was concerning that we may need to restart it. However, on repeat CTA chest x 2, which I reviewed with the radiologist golf professional today, there was no further evidence of aortic thrombus. No further apixaban is required. (5) Tobacco abuse: Plan: smoking cessation recommended, nicotine patch PRN (6) Elevated transaminase level: Plan: mildly elevated, repeat in am. DVT prophy: Lovenox Full Code Dispo-to home once neck pain has resolved. ADDENDUM: I came back to the bedside and evaluated him. At this time his was there and we reviewed all the medications and discussed the assessment and plan. Also, the patient was now appearing more comfortable and stated that his pain was improved. Will go ahead and order the c-spine MRI for the morning in case he is able to tolerate it at that point. I spent a total [id number] coordinating, documenting, and providing care for this patient excluding time spent in the performance of separately billed services Steffany Rednon DO [facility] History of Present Illness Chief Complaint: neck injury/pain Primary Care Provider: Ajit Moreno MD 67 yo M presents with acute neck pain overnight. He has a h/o ongoing tobacco use, and a known descending aorta thrombus on Eliquis and ASA. He also has a h/o PE and pulmonary emphysema and continues to smoke. He reported gradual onset of neck pain over the last 12 hours. He reported fishing over the weekend and that he has a sore throat. Denies chest pain or difficulty breathing. Denies cough or congestion. No fevers reported. The neck pain reported is reproducible on exam. He was given dilaudid 1mg IV in the ER with subsequent hypoxia. Describes pain as strong neck pain that came on last night He was sitting and playing a game on his iPAD for half an hour when he felt the pain come on He denies holding his head in one position for a long time and denies any repetitive motion. He had eaten dinner The pain was ongoing for two hours prior to bed Took nothing for the pain Woke up around 3am with severe neck pain, doesn't feel that he slept on it wrong States he is sore all over but this is chronic. No acute soreness from his fish ing trip Pain does not radiate and patient doesn't have nausea There is no radiculopathy There was no known trauma to the neck No weight loss or night sweats in the last few months and no h/o cancer There is no headache Patient states that he is no longer on apixaban, states his atomic spectroscopist and family doctor agreed that he could stop this. He was hospitalized recently for COPD flares and states that his breathing is fine without issues. Sat/Sun-fished all day both days, was sitting in the truck for a while because of the rain Wading in water to fish denies chest pain, denies nausea no loss of bowel/bladder control denies any back pain now but has a h/o chronic back pain in the past takes pregabalin for post thoracotomy pain which is chronic since 2002 He denies having neck pain in the past He states he doesn't believe he would be able to tolerate an MRI at this time. Home Medications Medication Instructions Recorded Confirmed Type pregabalin 100 mg capsule (Lyrica) 100 mg PO BID 10/16/17 06/13/23 History meclizine 12.5 mg tablet 12.5 mg PO TID PRN Dizziness 06/28/21 06/13/23 History prednisone 20 mg tablet 40 mg PO QAM PRN RESCUE KIT 04/05/22 06/13/23 History bupropion HCl 150 mg tablet,12 hr 150 mg PO BID 04/07/22 06/13/23 History sustained-release (Wellbutrin SR) ondansetron 8 mg disintegrating 8 mg PO Q8H PRN Nausea 04/07/22 06/13/23 History tablet clobetasol 0.05 % topical cream 1 applic topical BID PRN Rash 12/29/22 06/13/23 History levalbuterol HCl 1.25 mg/3 mL 1.25 mg inhalation Q4H PRN Wheezing 12/29/22 06/13/23 History solution for nebulization triamcinolone acetonide 0.1 % 1 applic topical BID PRN Rash 12/29/22 06/13/23 History topical cream cyanocobalamin (vitamin B-12) 1,000 mcg PO QAM 03/08/23 06/13/23 History 1,000 mcg tablet (Vitamin B-12) aspirin 81 mg tablet,delayed 81 mg PO QAM #30 tabs 03/11/23 06/13/23 Rx release atorvastatin 80 mg tablet (Lipitor) 80 mg PO DAILY #30 tabs 03/11/23 06/13/23 Rx pantoprazole 40 mg tablet,delayed 40 mg PO BID 30 days #60 tabs 04/06/23 06/13/23 Rx release (Protonix) albuterol sulfate 90 mcg/actuation 2 puff inhalation Q4H PRN 04/26/23 06/13/23 Rx aerosol inhaler Shortness Of Breath Or Wheezing #8.5 grams guaifenesin 600 mg tablet, 600 mg PO BID PRN congestion #60 04/26/23 06/13/23 Rx extended release 12 hr (Mucinex) tabs escitalopram oxalate 10 mg tablet 10 mg PO DAILY 06/13/23 06/13/23 History fluticasone fur. 200 mcg-umeclid 1 inh inhalation DAILY 06/13/23 06/13/23 History 62.5 mcg-vilant 25 mcg inhalat.powder (Trelegy Ellipta) Past Med/Surg History Medical History Acute respiratory failure with hypoxemia Chronic respiratory failure On oxygen at night in the past - but no longer needs per patient Hx of migraines Sleep apnea No device History of COVID-19 2019, moderate symptoms > resolved 2020, mild symptoms > resolved Post-nasal drip Chronic - stable HLD (hyperlipidemia) TAYLOR (obstructive sleep apnea) Cannot tolerate device Anxiety Pneumothorax Hx- complication from pain injection- resolved COPD, moderate Breathing stable Neuropathy GERD (gastroesophageal reflux disease) Well controlled and stable Histoplasmosis 2002- treated Diaphragmatic hernia Thoracic spinal stenosis Surgical History History of esophagogastroduodenoscopy (EGD) Hx of colonoscopy History of open reduction and internal fixation (ORIF) procedure right shoulder History of total replacement of left shoulder joint History of sinus surgery History of placement of chest tube History of hand surgery Left femoral shaft fracture Dutch placed H/O total hip arthroplasty left side H/O elbow surgery H/O exploratory thoracotomy "Left thoracotomy wedge biopsy of left upper lobe with excision of lesion or nodule & frozen section 2002" H/O hernia repair "[facility] incarcerated supraumbilical hernia repair open no mesh " Family History Father Heart disease Hypertension Brother Cancer Hypertension Stroke Heart disease Mother Cancer Other Leukemia No family history of bleeding disorder Non-Hodgkin lymphoma Denies family history of Hearing loss Asthma Social History Smoking Status: Current every day smoker Tobacco Type: Cigarettes Age Started Using Tobacco: 11; packs per day: 1; Cigarettes Per Day: 10 cigs /day; Second Hand Exposure: No; Do You Dip or Chew Tobacco: No; Hx Alcohol Use: No Hx Substance Use: No Preferred Language: [place] Communication Ability: Effective Advanced Registered Nurse Required: No Beliefs That Will Affect Care: None marital status: Current Living Situation: Spouse current occupational status: unemployed Feels Safe at Home: Yes Safety Concerns: Feels Safe At This Time Assistive Devices: None Physical Exam Physical Exam: CONSTITUTIONAL: WNWD, vitals as above, generally writhing in pain and appears uncomfortable. EYES: EOMI bilaterally, PERRL, normal conjunctivae, no scleral icterus ENT: external ear and nose normal, oropharynx clear, MMM NECK: trachea midline, no lymphadenopathy, bilateral strap muscles of neck are tight R>L. REstricted ROM in all places of motion, Spurling's test is negative with no radiculopathy present, but there was pain with axial load on the right. Note that test was significantly limited given the limited movement of the c- spine 2/2 severe pain. Patient was also unable to sit up straight in bed or sit on the bedside. TTP present in posterior paraspinal cervical muscles R>L and in trapezius muscles bilaterally. I was unable to visualize the neck because of the limited ability of the patient to move. RESPIRATORY: clear to auscultation bilaterally, no crackles, rales or wheezes, normal respiratory effort CARDIOVASCULAR: regular rate and rhythm, S1 and 2 heard without murmurs, gallops or rubs, no JVD, no peripheral edema, no abdominal bruits. equal bilateral blood pressures 117/93 L upper arm 114/64 R upper arm, and equal bilateral pulses. CHEST: inspection of chest was normal GASTROINTESTINAL: soft, nontender, ND, no guarding MUSCULOSKELETAL: strength 5/5 throughout, head is normocephalic and atraumatic, he can abduct his arms at the shoulder level bilaterally to 90 degrees. SKIN: warm and dry NEUROLOGIC: patellar and brachioradialis DTRs 2+ bilat. No facial palsy, no dysarthria. Touch, pain and proprioception normal. CN 2-12 grossly intact, no sensory deficit, normal cognition, normal speech, no tremor PSYCHIATRIC: alert cooperative and oriented to person, place and time. Euthymic mood, makes good eye contact, language grossly intact, recent and remote memory grossly intact. Results & Data Results & Data Vital Signs (Past 12 Hours) Vital Signs Temp Pulse Pulse Resp BP BP Pulse Ox 06/13/23 12:42 80 21 115/76 85 L 06/13/23 10:26 78 06/13/23 10:05 36.9 C 81 27 H 157/83 H 95 O2 Del Method 06/13/23 12:42 Room Air 06/13/23 10:26 06/13/23 10:05 Room Air Laboratory Results Short CBC 06/13/23 Range/Units 10:15 WBC 11.51 H (4.8-10.8) K/ul Hgb 13.8 L (14.0-18.0) g/dl Hct 41.4 L (42.0-52.0) % Plt Count 363 (130-400) K/uL BMP 06/13/23 10:15 Sodium 142 Potassium 4.1 Chloride 107 Carbon Dioxide 29 BUN 16 Creatinine 0.65 Glucose 97 Calcium 8.1 L Liver Function 06/13/23 Range/Units 10:15 Total Bilirubin 0.7 (0.2-1.0) mg/dl AST 72 H (13-39) U/L ALT 98 H (7-52) U/L Alkaline Phosphatase 105 H (34-104) U/L Albumin 3.6 (3.4-5.0) gm/dl Urine 06/13/23 Range/Units 10:29 Urine Color Yellow Urine Appearance Clear (Clear) Urine pH 7.5 (4.5-7.5) Ur Specific [place] 1.011 (1.000-1.030) Urine Protein Negative (Negative) Urine Glucose (UA) Negative (Negative) Diagnostic Findings Cervical Spine CT 06/13/23 10:32 CT OF THE CERVICAL SPINE WITHOUT CONTRAST CLINICAL HISTORY: Severe neck pain. COMPARISON STUDY: Cervical spine CT April 17, 2023. TECHNIQUE: Helical axial images of the cervical spine were obtained without IV contrast. Sagittal and coronal reconstructions were viewed. Automated exposure control was utilized for the study. A dose lowering technique was utilized adhering to the principles of ALARA. FINDINGS: Evaluation of the mid to lower cervical spine is mildly compromised by artifact. Alignment of the cervical spine is anatomic. Vertebral body heights are maintained. No acute cervical spine fracture or subluxation is present. There is no prevertebral edema. Facet joints are intact. Central canal and neural foramina are suboptimally assessed given CT technique. Moderate multilevel degenerative disc disease and facet arthrosis is present. IMPRESSION: 1. No acute cervical spine fracture or subluxation. 2. Moderate degenerative changes within the cervical spine. 3. Exam mildly compromised by artifact. ACT 112: Negative or not required by law. Electronically signed by: Jose A Hernandez M.D. 06/13/2023 12:26 PM Chest X-Ray 06/13/23 10:33 XR chest 1V portable CLINICAL HISTORY: right neck pain TECHNIQUE: Single frontal radiograph of the chest was obtained. Comparison: Comparison is made to chest radiograph 05/17/2023 FINDINGS: Bilateral shoulder arthroplasty seen. The cardiomediastinal silhouette is normal. The lungs are clear. No evidence of pleural effusion or pneumothorax. IMPRESSION: No acute chest disease. ACT 112: Negative or not required by law. Electronically signed by: Florin Soto M.D. 06/13/2023 11:47 AM
[2023-06-13] MEDS: IBUPROFEN 600 MG TAB PO STA (14:56)
[2023-06-13] MEDS: diazePAM 2 MG TABLET PO STA (14:56)
[2023-06-13] MEDS ORDERED: NICOTINE 21 MG/24 HR TDSY TD PRN (15:40)
[2023-06-13 15:59] LABS: C Reactive Protein < 0.50 mg/dl (0-0.5); Creatine Kinase 128 U/L (30-223)
[2023-06-13] MEDS: PREGABALIN 100 MG CAP PO STA (17:15)
[2023-06-13] MEDS ORDERED: POLYETHYLENE (MIRALAX) 17 GM PACK PO PRN (17:48)
[2023-06-13] MEDS ORDERED: ONDANSETRON INJ 2 MG/ML 2 ML VIAL IV PRN (17:48)
[2023-06-13] MEDS: ACETAMINOPHEN 500 MG TAB PO SCH (18:25)
--- OUTSIDE RECORDS SUMMARY | 2023-06-13 20:29 | External Medical Summary | Summary of Care ---
Author Name Unknown Organization [facility] Address [address] [place] [address] Phone [phone] Care Team Providers Care Res Counselor Name Role Phone Henry Buhs MD Primary Care Provider [phone] Reason for Visit * Reason Onset Date Comments Medication Refill 06/08/2023 Encounter Details Date Type Department Care Team (Late st Contact Info) Description 06/08/2023 Refill [facility] [address] [place] [address] JuneeHnry MD [address] [place] [address] Pulmonary emphysema, unspecified emphysema type (HCC); Bilateral lower extremity edema; Anxiety; Nausea without vomiting; Chronic pain syndrome Allergies Active Allergy Reactions Criticality Noted Date Comments Fluticasone High 02/27/2020 Other reaction(s): lightheadedness and nausea Umeclidinium High 02/27/2020 Other reaction(s): lightheadedness and nausea Vilanterol High 02/27/2020 Other reaction(s): lightheadedness and nausea documented as of this encounter (statuses as of 06/13/2023) Medications Medication Sig Dispensed Refills Start Date End Date Status Respiratory Therapy Supplies (NEBULIZER/TUBING/M OUTHPIECE) KIT Use as directed 1 Kit 5 9 Active Clobetasol Propionate 0.05 % External Ointment (Temovate)Indicatio ns:Stasis dermatitis of both legs Apply 2x daily to rash on legs until resolved, then as needed when flaring 60 g 0 2 Active Naproxen 500 MG Oral Tablet (Naprosyn)Indicatio ns:Hip pain, left Take 1 Tablet by mouth 2 times a day as needed for Pain. With food 40 Tablet 1 3 Active Meclizine HCl 12.5 MG Oral Tablet (Antivert)Indicatio ns:Dizziness TAKE ONE TABLET BY MOUTH THREE TIMES DAILY NEEDED for dizziness 30 Tablet 2 3 Active Aspirin 81 MG Oral Tablet Chewable (Aspirin 81) Take 1 Tablet by mouth in the morning. 0 Active Furosemide 40 MG Oral Tablet (Lasix)Indications: Bilateral lower extremity edema Take 1 Tablet by mouth in the morning. for fluid accumulation or weight gain. 20 Tablet 0 4 Active LORazepam 0.5 MG Oral Tablet (Ativan)Indications :Anxiety Take 1 Tablet by mouth every 6 hours as needed for Agitation. 20 Tablet 0 4 Active Ondansetron HCl 8 MG Oral Tablet (Zofran)Indications :Nausea without vomiting Take 1 Tablet by mouth every 8 hours as needed for Nausea. 20 Tablet 0 4 Active Pregabalin 100 MG Oral Capsule (Lyrica)Indications :Chronic pain syndrome Take 1 Capsule by mouth in the morning and 1 Capsule before bedtime. 60 Capsule 0 4 Active Albuterol Sulfate HFA 108 (90 Base) MCG/ACT Inhalation Aerosol SolutionIndications :Pulmonary emphysema, unspecified emphysema type ([facility]) INHALE TWO PUFFS BY MOUTH EVERY 4 HOURS NEEDED FOR SHORTNESS OF BREATH or wheezing 25.5 g 1 4 06/09/19 24 Discontinu ed(Refill) buPROPion HCl ER (SR) 150 MG Oral Tablet Extended Release 12 Hour (Wellbutrin SR)Indications:Adju stment disorder with depressed mood TAKE ONE TABLET BY MOUTH IN THE MORNING AND ONE BEFORE BEDTIME 180 Tablet 3 4 06/08/19 24 Discontinu ed(Refill) Levalbuterol HCl 1.25 MG/3ML Inhalation Nebulization Solution (Xopenex)Indication s:COPD, group C, by GOLD 2017 classification ([facility]) Inhale 1 Ampule via nebulizer every 4 hours as needed for Wheezing. 72 mL 3 4 06/08/19 24 Discontinu ed(Refill) Ondansetron HCl 8 MG Oral Tablet (Zofran)Indications :Nausea without vomiting Take 1 Tablet by mouth every 8 hours as needed for Nausea. 20 Tablet 0 4 06/08/19 24 Discontinu ed(Refill) Pantoprazole Sodium 40 MG Oral Tablet Delayed Release (Protonix)Indicatio ns:Gastroesophageal reflux disease with esophagitis, unspecified whether hemorrhage Take 1 Tablet by mouth in the morning and 1 Tablet before bedtime. 180 Tablet 1 4 06/08/19 24 Discontinu ed(Refill) LORazepam 0.5 MG Oral Tablet (Ativan)Indications :Anxiety Take 1 Tablet by mouth every 6 hours as needed for Agitation. 20 Tablet 0 4 06/08/19 24 Discontinu ed(Refill) Atorvastatin Calcium 80 MG Oral Tablet (Lipitor)Indication s:Atherosclerosis of aorta ([facility]) TAKE 1 TABLET BY MOUTH ONCE DAILY 90 Tablet 3 4 06/08/19 24 Discontinu ed(Refill) Pregabalin 100 MG Oral Capsule (Lyrica)Indications :Chronic pain syndrome Take 1 Capsule by mouth in the morning and 1 Capsule before bedtime. 60 Capsule 0 4 06/08/19 24 Discontinu ed(Refill) Escitalopram Oxalate 10 MG Oral Tablet (Lexapro)Indication s:Mood swings Take 1 Tablet by mouth in the morning. 90 Tablet 3 4 06/08/19 24 Discontinu ed(Refill) Furosemide 40 MG Oral Tablet (Lasix)Indications: Bilateral lower extremity edema Take 1 Tablet by mouth in the morning. for fluid accumulation or weight gain. 20 Tablet 0 4 06/08/19 24 Discontinu ed(Refill) Trelegy Ellipta 200-62.5-25 MCG/ACT Aerosol Powder Breath Activated (Fluticasone-Umecli dinium-Vilanterol)I ndications:COPD, group C, by GOLD 2017 classification ([facility]) Inhale 1 Puff by mouth in the morning. 60 Blister Dosing Unit 11 4 06/08/19 24 Discontinu ed(Refill) documented as of this encounter (statuses as of 06/13/2023) Active Problems Problem Noted Date Diagnosed Date Severe obesity (BMI 35.0-39.9) with comorbidity 05/27/2023 Food insecurity 05/16/2023 Overview: Per [facility] Protocol Personal history of other venous thrombosis and embolism 03/21/2023 Overview: historical Dyslipidemia, goal LDL below 70 06/01/2022 Adjustment [...] as of this encounter (statuses as of 06/13/2023) Resolved Problems Problem Noted Date Diagnosed Date [...] LUNG, NOT ELSEWHERE CLASSIFIED 06/12/2002 09/14/2018 CHEST [id number] 04/09/200209/2018 ABN FD-INTRATHOR ORG NEC-akbar nodule 03/06/2002 [...] as of this encounter (statuses as of 06/13/2023) Immunizations Name Administration Dates Next Due COVID-19 mRNA, LNP-s, No Pre serve, 2-Dose Series (Pfizer) 05/22/2020,05/01/2020 Seasonal Influenza, PF, 6 M & above, IM , (FluLaval or Fluzone) 10/26/2019,12/22/2018,12/28/2017 Seasonal Influenza, Quadriva lent Hd (Fluzone Hd) 01/08/2022 documented as of this encounter Social History Tobacco Use Types Packs/Day Years Used Date Smoking Tobacco: Every Day Cigarettes 0.5 45.1 Started: 03/19/2003 Passive Smoke Exposure: Past Smokeless [...] Telephone Encounter - Henry Bush MD - 06/13/2023 6:29 AM EDTSigned Prescriptions: Disp Refills Furosemide 40 MG Oral Tablet (Lasix) 20 Tab*0 Sig: Take 1 Tablet by mouth in the morning. for fluid accumulation or weight gain.Authorizing Provider: HENRY BUSH LORazepam 0.5 MG Oral Tablet (Ativan) 20 Tab*0 Sig: Take 1 Tablet by mouth every 6 hours as needed for Agitation.Authorizing Provider: HENRY BUSH Ondansetron HCl 8 MG Oral Tablet (Zofran) 20 Tab*0 Sig: Take 1 Tablet by mouth every 8 hours as needed for Nausea.Authorizing Provider: HENRY BUSH Pregabalin 100 MG Oral Capsule (Lyrica) 60 Cap*0 Sig: Take 1 Capsule by mouth in the morning and 1 Capsule before bedtime.Authorizing Provider: HENRY BUSH * Telephone Encounter - Agnes [facility] - 06/10/2023 4:01 AM EDTPending Prescriptions: Disp Refills Furosemide 40 MG Oral Tablet (Lasix) 20 Tab*0 Sig: Take 1 Tablet by mouth in the morning. for fluid accumulation or weight gain. LORazepam 0.5 MG Oral Tablet (Ativan) 20 Tab*0 Sig: Take 1 Tablet by mouth every 6 hours as needed for Agitation. Ondansetron HCl 8 MG Oral Tablet (Zofran) 20 Tab*0 Sig: Phil e 1 Tablet by mouth every 8 hours as needed for Nausea. Pregabalin 100 MG Oral Capsule (Lyrica) 60 Cap*0 Sig: Take 1 Capsule by mouth in the morning and 1 Capsule before bedtime. * Telephone Encounter - Agnes Gunn [facility] - 06/10/2023 4:00 AM EDT I have reviewed the patients controlled substance dispensing history in the Prescription Drug Monitoring Program in compliance with the [facility] regulations before prescribing a controlled substance. PDMP checked on 06/10/2023. Pending Prescriptions: Disp Refills Furosemide 40 MG Oral Tablet (Lasix) 20 Tab*0 Sig: Take 1 Tablet by mouth in the morning. for fluid accumulation or weight gain. LORazepam 0.5 MG Oral Tablet (Ativan) 20 Tab*0 Sig: Take 1 Tablet by mouth every 6 hours as needed for Agitation. Ondansetron HCl 8 MG Oral Tablet (Zofran) 20 Tab*0 Sig: Take 1 Tablet by mouth every 8 hours as needed for Nausea. Pregabalin 100 MG Oral Capsule (Lyrica) 60 Cap*0 Sig: Take 1 Capsule by mouth in the morning and 1 Capsule before bedtime. Last Visit: 05/27/2023 (in office), Visit date not found (telemedicine) Next Visit: 06/20/2023 Date medication was last filled: 03/21 (Lorazepam), 05/02 (Lyrica) Date medication is due for refill: 03/26, 06/01 Pharmacy: [address] Is this request for a controlled substance? [...] in Results Review. Please approve if appropriate. Thank You, Agnes Gunn [facility] Clinical Pharmacist Centralized Clinical Pharmacy Services ([facility]PS) (formerly Telepharmacy) [phone] 06/10/2023, 4:00 AM * Telephone Encounter - Nelia Jordan CPhT - 06/08/2023 4:20 PM EDT Did you pend patient's preferred pharmacy and medication before forwarding?yes Pharmacy: [address] Pending Prescriptions: Disp Refills Albuterol Sulfate HFA 108 (90 Base) MCG/A*25.5 g 1 Sig: INHALE TWO PUFFS BY MOUTH EVERY 4 HOURS NEEDED FOR SHORTNESS OF BREATH or wheezing Furosemide 40 MG Oral Tablet (Lasix) 20 Tab*0 Sig: Take 1 Tablet by mouth in the morning. for fluid accumulation or weight gain. LORazepam 0.5 MG Oral Tablet (Ativan) 20 Tab*0 Sig: Take 1 Tablet by mouth every 6 hours as needed for Agitation. Ondansetron HCl 8 MG Oral Tablet (Zofran) 20 Tab*0 Sig: Take 1 Tablet by mouth every 8 hours as needed for Nausea. Pregabalin 100 MG Oral Capsule (Lyrica) 60 Cap*0 Sig: Take 1 Capsule by mouth in the morning and 1 Capsule before bedtime. Last Visit: 05/27/2023 (in office), Visit date not found (telemedicine) Next Visit: 06/20/2023 If no future appointments scheduled, and last appointment is greater than a year ago, please schedule patient for a follow-up appointment Last date the medication was ordered: 05/02/23 Is this request for a controlled substance?Take 1 Capsule by mouth in the morning and 1 Capsule before bedtime Urine Drug Screen: Results for orders placed or performed in [...] results can be found in Results Review. Patient Phone Numbers Labs: Lab Results Component Value Date/Time CREAT 0.9 09/10/2022 09:32 AM CREAT 1.0 11/12/2019 10:25 AM POTASSIUM 4.7 01/11/2022 10:21 AM POTASSIUM 5.0 04/25/2019 10:49 AM TSH 1.61 09/28/2013 01:43 PM LDLCALC 100 01/11/2022 10:21 AM LDLCALC 74 04/25/2019 10:49 AM ALT 63 (H) 01/11/2022 10:21 AM ALT 87 (H) 04/25/2019 10:49 AM HGBA1C 5.8 03/15/2008 11:00 AM documented in this encounter Plan of Treatment Upcoming Encounters Date Type Department Care Team (Late st Contact Info) Description 06/20/2023 8:00 AM EDT Office Visit [facility] [address] [place] [facility] [place] [phone] JuneHenry MD [address] [place] [address] 06/20/2023 4:30 PM EDT Imaging Radiology [address] [place] [address] 06/28/2023 12:00 PM EDT Office Visit Gastroenterology, [facility] [address] [place] [address] Jerome Conroy CRNP [address] [place] [address] 06/30/2023 12:30 PM EDT [facility] [place] [address] [place] [address] Rosa Parra, RN [address] [place] [address] 07/05/2023 1:00 PM EDT Office Visit [facility] [address] [place] [facility] [place] [phone] Henry Bush MD [address] [place] [address] 07/18/2023 9:00 AM EDT Home Visit [facility], [facility] [address] [place] [address] Henry Marin PA-C [address] [place] [address] Scheduled Procedures Name Priority Associated Diagnoses Date/Ti me COLONOSCOPY FLEXIBLE PROXIMAL DIAGNOSTIC Recall History of colon polyps Health Maintenance Due Date Last Done Comments DISCUSS TOBACCO CESSATION (REFER TO SMARTSET #3291) 1955 Pneumococcal Vaccine: 65+ Years (1 of 2 - PCV) 12/04/1959 Alpha-1 Antitrypsin 12/04/1971 DTaP,Tdap,and Td Vaccines (1 - Tdap) 1972 Cologuard 1998 Fecal Occult Blood Test 1998 Sigmoidoscopy 1998 Zoster Vaccines (1 of 2) 12/04/2003 *ADVANCE [...] ASSESSMENT COMPLETED IN PAST YEAR FOR COPD 05/26/2024 05/27/2023 Diabetes Screening 01/11/2025 01/11/2022, 1 04/05/2020, 07/03/2020, Additional history exists Colonoscopy 03/18/2026 03/18/2021, 10/2021, 12/18/2019, Additional history exists Colorectal Cancer Screening 03/18/2026 Lung Cancer Screening Completed 11/08/2016 , 11/03/2016, 12/22/2015, Additional history exists Hepatitis C Screening Completed 05/31/2017 , 08/07/2015, 05/03/2014 RETIRED - COLONOSCOPY-ANNUAL AGES 18-100 Discontinued 03/18/2021, 03/18/2021, 12/18/2019, Additional history exists RETIRED - COLONOSCOPY-EVERY 5 YRS AGES 18-100 Discontinued 03/18/2021, 03/18/2021, 12/18/2019, Additional history exists VITAMIN D LEVEL ONCE IN A LIFETIME-USE SMARTSET# [id number] Completed 06/16/2021, 05/03/2014 GARDASIL-HPV IMMUNIZATION SERIES Aged [...] as of this encounter Visit Diagnoses Diagnosis Pulmonary emphysema, unspecified emphysema type (HCC) Bilateral lower extremity edema Edema Anxiety Anxiety state, unspecified Nausea without vomiting Chronic pain syndrome documented in this encounter [...] 9:12 AM 05/09/2003 10:12 AM Care Teams Res Counselor Relationship Specialty Start Date End Date June, Henry [place] MD [address] [place] [facility] [place] [address] PCP - General Family Medicine 03/11/22 documented as of this encounter
--- OUTSIDE RECORDS SUMMARY | 2023-06-13 20:29 | External Medical Summary | Summary of Care ---
Author Name Unknown Organization [facility] Address [address] [place] [address] Phone [phone] Care Team Providers Care Director Digital Name Role Phone Henry Bush MD Primary Care Provider [phone] Reason for Visit * Reason Onset Date Comments Medication Refill 06/08/2023 Encounter Details Date Type Department Care Team (Late st Contact Info) Description 06/08/2023 Refill [facility] [address] [place] [address] JuneHenry MD [address] [place] [address] Allergies Active Allergy Reactions Criticality Noted Date Comments Fluticasone High 02/27/2020 Other reaction(s): lightheadedness and nausea Umeclidinium High 02/27/2020 Other reaction(s): lightheadedness and nausea Vilanterol High 02/27/2020 Other reaction(s): lightheadedness and nausea documented as of this encounter (statuses as of 06/09/2023) Medications Medication Sig Dispensed Refills Start Date [...] by mouth in the morning. 0 Active Ondansetron HCl 8 MG Oral Tablet (Zofran)Indications :Nausea without vomiting Take 1 Tablet by mouth every 8 hours as needed for Nausea. 20 Tablet 0 4 Active LORazepam 0.5 MG Oral Tablet (Ativan)Indications :Anxiety Take 1 Tablet by mouth every 6 hours as needed for Agitation. 20 Tablet 0 4 Active Pregabalin 100 MG Oral Capsule (Lyrica)Indications :Chronic pain syndrome Take 1 Capsule by mouth in the morning and 1 Capsule before bedtime. 60 Capsule 0 4 Active Furosemide 40 MG Oral Tablet (Lasix)Indications: Bilateral lower extremity edema Take 1 Tablet by mouth in the morning. for fluid accumulation or weight gain. 20 Tablet 0 4 Active Cyanocobalamin 1000 MCG Oral Tablet (Cyanocobalamin) Take 1 Tablet by mouth in the morning. 90 Tablet 3 4 Active Albuterol Sulfate HFA 108 (90 Base) MCG/ACT Inhalation Aerosol SolutionIndications :Pulmonary emphysema, unspecified emphysema type ([facility]) INHALE TWO PUFFS BY MOUTH EVERY [...] s:COPD, group C, by GOLD 2017 classification ([facility]) Inhale 1 Ampule via nebulizer every 4 hours as needed for Wheezing. 72 mL 3 4 06/08/19 24 Discontinu ed(Refill) Pantoprazole Sodium 40 MG Oral Tablet Delayed Release (Protonix)Indicatio ns:Gastroesophageal reflux disease with esophagitis, unspecified whether hemorrhage Take 1 Tablet by mouth in the morning and 1 Tablet before bedtime. 180 Tablet 1 4 06/08/19 24 Discontinu ed(Refill) Atorvastatin Calcium 80 MG Oral Tablet (Lipitor)Indication s:Atherosclerosis of aorta (HCC) TAKE 1 TABLET BY MOUTH ONCE DAILY 90 Tablet 3 4 06/08/19 24 Discontinu ed(Refill) Escitalopram Oxalate 10 MG Oral Tablet (Lexapro)Indication s:Mood swings Take 1 Tablet by mouth in the morning. 90 Tablet 3 4 06/08/19 24 Discontinu ed(Refill) Trelegy Ellipta 200-62.5-25 MCG/ACT Aerosol Powder Breath Activated (Fluticasone-Umecli dinium-Vilanterol)I ndications:COPD, group C, by GOLD 2017 classification ([facility]) Inhale 1 Puff by mouth in the morning. 60 Blister Dosing Unit 11 4 06/08/19 24 Discontinu ed(Refill) documented as of this encounter (statuses as of 06/09/2023) Active Problems Problem Noted Date Diagnosed Date [...] as of this encounter (statuses as of 06/09/2023) Resolved Problems Problem Noted Date Diagnosed Date [...] LUNG, NOT ELSEWHERE CLASSIFIED 06/12/2002 09/14/2018 CHEST [id number] 04/09/200209/2018 ABN FD-INTRATHOR ORG NEC-akbar nodule 03/06/2002 [...] as of this encounter (statuses as of 06/09/2023) Immunizations Name Administration Dates Next Due COVID-19 mRNA, LNP-s, No Pre serve, 2-Dose Series ([employer]) 05/22/2020,05/01/2020 Seasonal Influenza, PF, 6 M & [...] Telephone Encounter - Henry Bush MD - 06/09/2023 5:08 PM EDTSigned Prescriptions: Disp Refills Cyanocobalamin 1000 MCG Oral Tablet (Cyano*90 Tab*3 Sig: Take 1 Tablet by mouth in the morning.Authorizing Provider: HENRY BUSH * Telephone Encounter - Carmen Guerrero LPN - 06/09/2023 9:14 AM EDT 06/20/2023 05/27/2023 (in office), Visit date not found (telemedicine) Pending Prescriptions: Disp Refills Cyanocobalamin 1000 MCG Oral Tablet (Cyan* Sig: Take 1 Tablet by mouth in the morning. * Telephone Encounter - Nelia Jordan CPhT - 06/08/2023 4:24 PM EDT Pt's calling requesting the following medication below that is listed as "Historical". The following information was provided: Medication Name: Cyanocobalamin Tablet Strength: 1000mcg Directions: take 1 tablet daily Preferred Quantity: 90 Previous Prescriber: gabby brunson Preferred Pharmacy: [id number] Please review and approve if appropriate. Thank you, Nelia Jordan CPhT II [employer] [facility] ([facility]) (Formerly Telepharmacy) 06/08/2023, 4:24 PM documented in this encounter Plan of Treatment Upcoming Encounters Date Type Department Care Team (Late st Contact Info) Description 06/20/2023 8:00 AM EDT Office Visit [address] [place] [phone] Henry Bush MD [address] [place] [address] 06/20/2023 4:30 PM EDT Imaging Radiology [address] [facility] [place] [address] 06/28/2023 12:00 PM EDT Office Visit Gastroenterology, [facility] [address] [facility] [place] [address] Jerome Conroy CRNP [address] [facility] [place] [address] 07/05/2023 1:00 PM EDT [address] [phone] Henry Bush MD [address] [facility] [place] [address] Scheduled Procedures Name Priority Associated Diagnoses Date/Ti me COLONOSCOPY FLEXIBLE PROXIMAL DIAGNOSTIC Recall History of colon polyps Health Maintenance Due Date Last Done Comments DISCUSS TOBACCO CESSATION (REFER TO SMARTSET #3089) 1955 Pneumococcal Vaccine: 65+ Years (1 of 2 - PCV) 12/04/1959 Alpha-1 Antitrypsin 12/04/1971 DTaP,Tdap,and Td Vaccines (1 - Tdap) 1972 Cologuard 1998 Fecal Occult Blood Test 1998 Sigmoidoscopy 1998 Zoster Vaccines (1 of 2) 12/04/2003 *ADVANCE DIRECTIVE NOT ON FILE 07/22/2018 AAA Screening 2018 *BISPHONATE OR OTHER ACCEPTABLE MEDICATION NEEDED FOR OSTEOPOROSIS (REFER TO SMARTSET #3296) 06/29/2022 COVID-19 Vaccine ( season) 2022 05/22/2020, 05/01/2020 DXA Scan 10/14/2022 10/14/2020 Influenza Vaccine (FLU shot) (Season Ended) 2023 01/08/2022, 10/26/2019, 12/22/2018, Additional history exists Depression Screening 04/07/2024 04/08/2023 O2 ASSESSMENT COMPLETED IN PAST YEAR FOR COPD 05/26/2024 05/27/2023 Diabetes Screening 01/11/2025 01/11/2022, 1 04/05/2020, 07/03/2020, Additional history exists Colonoscopy 03/18/2026 03/18/2021, 02/0 10/2021, 12/18/2019, Additional history exists Colorectal Cancer Screening 03/18/2026 Lung Cancer Screening Completed 11/08/2016 , 11/03/2016, 12/22/2015, Additional history exists Hepatitis C Screening Completed 05/31/2017 , 08/07/2015, 05/03/2014 RETIRED - COLONOSCOPY-ANNUAL AGES 18-100 Discontinued 03/18/2021, 03/18/2021, 12/18/2019, Additional history exists RETIRED - COLONOSCOPY-EVERY 5 YRS AGES 18-100 Discontinued 03/18/2021, 03/18/2021, 12/18/2019, Additional history exists VITAMIN D LEVEL ONCE IN A LIFETIME-USE SMARTSET# [id number] Completed 06/16/2021, 05/03/2014 GARDASIL-HPV IMMUNIZATION SERIES Aged [...] AM 05/09/2003 10:12 AM Care Teams Director Digital Relationship Specialty Start Date End Date June, Henry [place] MD [address] [place] [address] PCP - General Family Medicine 03/11/22 documented as of this encounter
--- OUTSIDE RECORDS SUMMARY | 2023-06-13 20:29 | External Medical Summary | Summary of Care ---
Author Name Unknown Organization [facility] Address [address] [place] [address] Phone [phone] Care Team Providers Care Serging Machine Operator Name Role Phone Ajit Moreno MD Primary Care Provider [phone] Reason for Visit * Reason Onset Date Comments Appointment 04/05/2023 Encounter Details Date Type Department Care Team (Late st Contact Info) Description 04/05/2023 Telephone Gastroenterology, [facility] [address] [place] [address] Brooke Mcelroy CRNP [address] [place] [address] Appointment Allergies Active Allergy Reactions Criticality Noted Date Comments Fluticasone High 02/27/2020 Other reaction(s): lightheadedness and nausea Umeclidinium High 02/27/2020 Other reaction(s): lightheadedness and nausea Vilanterol High 02/27/2020 Other reaction(s): lightheadedness and nausea documented as of this encounter (statuses as of 06/06/2023) Medications Medication Sig Dispensed Refills Start Date [...] Aerosol SolutionIndication s:Pulmonary emphysema, unspecified emphysema type ([facility]) [...] for Agitation. 20 Tablet 0 4 Active Umeclidinium-Vilan terol 62.5-25 MCG/ACT Inhalation Aerosol Powder Breath Activated inhale 1 puff by mouth daily 60 Each 6 9 04/08/19 24 Discontinued(Pat ient preference/disco ntinuation) Fluticasone Propionate 50 MCG/ACT Nasal Suspension (Flonase) 0 1 04/08/19 24 Discontinued(Pat ient preference/disco ntinuation) Triamcinolone Acetonide 0.1 % External Ointment (Aristocort)Indica tions:Stasis dermatitis of both legs Apply 2x daily to rash on lower legs when flaring (see printed checkout sheet) 454 g 0 2 04/12/19 24 Discontinued(Ref ill) Sildenafil Citrate 50 MG Oral Tablet (Viagra)Indication s:Erectile dysfunction, unspecified erectile dysfunction type Take 1 Tablet by mouth as needed for Erectile Dysfunction. 1-4 hours before intercourse, no more than 1 dose in 24 hours. 10 Tablet 5 3 04/08/19 24 Discontinued(Pat ient preference/disco ntinuation) Bisacodyl 5 MG Oral Tablet Delayed Release Take 1 Tablet by mouth daily as needed for Constipation. 0 04/12/19 24 Discontinued(Pat ient preference/disco ntinuation) Docusate Sodium 50 MG Oral Capsule Take 1 Capsule by mouth 2 times a day as needed for Constipation. 0 05/27/19 24 Discontinued(Med ication List Clean Up) Tavaborole 5 % External SolutionIndication s:Onychomycosis Apply to nail daily for 48 weeks 10 mL 1 3 04/08/19 24 Discontinued(Pat ient preference/disco ntinuation) Atorvastatin Calcium 80 MG Oral Tablet (Lipitor) Take 1 Tablet by mouth in the morning. 0 4 04/14/19 24 Discontinued Eliquis 5 MG Oral TabletIndications: 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) Take 1 Tablet by mouth in the morning and 1 Tablet before bedtime. 180 Tablet 1 4 04/26/19 24 Discontinued(Med ication/Dose Changed) Pregabalin 100 MG Oral Capsule (Lyrica)Indication s:Chronic pain syndrome Take 1 Capsule by mouth in the morning and 1 Capsule before bedtime. 60 Capsule 0 4 05/02/19 24 Discontinued documented as of this encounter (statuses as of 06/06/2023) Active Problems Problem Noted Date Diagnosed Date [...] as of this encounter (statuses as of 06/06/2023) Resolved Problems Problem Noted Date Diagnosed Date [...] LUNG, NOT ELSEWHERE CLASSIFIED 06/12/2002 09/14/2018 CHEST [id number] 04/09/200209/2018 ABN FD-INTRATHOR ORG NEC-akbar nodule 03/06/2002 [...] as of this encounter (statuses as of 06/06/2023) Immunizations Name Administration Dates Next Due COVID-19 [...] encounter Miscellaneous Notes * Telephone Encounter - Kiah Polo OSA - 06/06/2023 12:09 PM EDT HD appt scheduled with TAYLOR Bautista 06/06/2023 12:09 PM * Telephone Encounter - Brooke Mcelroy CRNP - 04/06/2023 11:32 AM EST Thanks I was not able to have epic yesterday Pt needs HD appt At that appt should discuss EGD +/- EUS 67 year old male with history of dyslipidemia, TAYLOR, emphysema, COPD, HH, GERD, ongoing tobacco use,descending aorta thrombus on Eliquis and aspirin, history of PE admitted w/ COPD exacerbation who reports chronic, unchanged, intermittent epigastric cramping pain without report of nausea/vomiting, GERD. No acute GI pathology on current imaging, however there is report of moderate constipation No acute indication for endoscopic evaluation Smoking cessation Continue PPI BID May complete a 14 day course of Carafate GERD dietary and lifestyle changes discussed Start Miralax 1 capful once daily Establish with GI as an outpatient Plan for OP EGD pending clearance given recent proximal descending thoracic aorta thrombus * Telephone Encounter - Leidy Calderon OSA - 04/05/2023 12:40 PM EST HD follow up EGD clearance Per Brooke. documented in this encounter Plan of Treatment Upcoming Encounters Date Type Department Care Team (Late st Contact Info) Description 06/20/2023 8:00 AM EDT Office Visit [facility] [address] [place] [address] Ajit Moreno MD [address] [place] [address] 06/20/2023 4:30 PM EDT Imaging Radiology [facility] [address] [facility] [place] [address] 06/28/2023 12:00 PM EDT Office Visit Gastroenterology, [facility] [address] [facility] [place] [address] Jerome Conroy CRNP [address] [place] [address] 07/05/2023 1:00 PM EDT Office Visit [facility] [address] [place] [facility] [place] [address] June, Ajit Sylvester MD [address] [place] [address] Scheduled Procedures Name Priority Associated Diagnoses Date/Ti me COLONOSCOPY FLEXIBLE PROXIMAL DIAGNOSTIC Recall History of colon polyps Health Maintenance Due Date Last Done Comments DISCUSS TOBACCO CESSATION (REFER TO SMARTSET #6199) 1955 Pneumococcal Vaccine: 65+ Years (1 of 2 - PCV) 12/04/1959 Alpha-1 Antitrypsin 12/04/1971 DTaP,Tdap,and Td Vaccines (1 - Tdap) 1972 Cologuard 1998 Fecal Occult Blood Test 1998 Sigmoidoscopy 1998 Zoster Vaccines (1 of 2) 12/04/2003 *ADVANCE DIRECTIVE NOT ON FILE 07/22/2018 AAA Screening 2018 *BISPHONATE OR OTHER ACCEPTABLE MEDICATION NEEDED FOR OSTEOPOROSIS (REFER TO SMARTSET #5576) 06/29/2022 COVID-19 Vaccine ( season) 2022 05/22/2020, [...] D LEVEL ONCE IN A LIFETIME-USE SMARTSET# [id number] Completed 06/16/2021, 05/03/2014 GARDASIL-HPV IMMUNIZATION SERIES Aged [...] 9:12 AM 05/09/2003 10:12 AM Care Teams Serging Machine Operator Relationship Specialty Start Date End Date June, Ajit Sylvester MD [address] [place] [address] PCP - General Family Medicine 03/11/22 documented as of this encounter
--- OUTSIDE RECORDS SUMMARY | 2023-06-13 20:29 | External Medical Summary | Summary of Care ---
Author Name Unknown Organization [facility] Address [address] [place] [address] Phone [phone] Care Team Providers Care Investor Relations Coordinator Name Role Phone Henry Bush MD Primary Care Provider [phone] Reason for Visit * Reason Onset Date Comments Medication Refill 06/08/2023 Encounter Details Date Type Department Care Team (Late st Contact Info) Description 06/08/2023 Refill [facility] [address] [place] [address] JuneHenry MD [address] [place] [address] Dyslipidemia, goal LDL below 70*; Atherosclerosis of aorta (HCC); Adjustment disorder with depressed mood; Mood swings; COPD, group C, by GOLD 2017 classification (HCC); Gastroesophageal reflux disease with esophagitis, unspecified whether hemorrhage; Pulmonary emphysema, unspecified emphysema type ([facility]); Food insecurity; Encounter for long-term (current) use of medications; Laboratory exam ordered as part of routine general medical examination Allergies Active Allergy Reactions Criticality Noted Date Comments Fluticasone High 02/27/2020 Other reaction(s): lightheadedness and nausea Umeclidinium High 02/27/2020 Other reaction(s): lightheadedness and nausea Vilanterol High 02/27/2020 Other reaction(s): lightheadedness and nausea documented as of this encounter (statuses as of 06/11/2023) Medications Medication Sig Dispensed Refills Start Date [...] weight gain. 20 Tablet 0 4 Active Atorvastatin Calcium 80 MG Oral Tablet (Lipitor)Indication s:Atherosclerosis of aorta (HCC) Take 1 Tablet by mouth in the morning. 90 Tablet 2 4 Active buPROPion HCl ER (SR) 150 MG Oral Tablet Extended Release 12 Hour (Wellbutrin SR)Indications:Adju stment disorder with depressed mood TAKE ONE TABLET BY MOUTH IN THE MORNING AND ONE BEFORE BEDTIME 180 Tablet 3 4 Active Escitalopram Oxalate 10 MG Oral Tablet (Lexapro)Indication s:Mood swings Take 1 Tablet by mouth in the morning. 90 Tablet 2 4 Active Levalbuterol HCl 1.25 MG/3ML Inhalation Nebulization Solution (Xopenex)Indication s:COPD, group C, by GOLD 2017 classification ([facility]) Inhale 1 Ampule via nebulizer every 4 hours as needed for Wheezing. 72 mL 0 4 Active Pantoprazole Sodium 40 MG Oral Tablet Delayed Release (Protonix)Indicatio ns:Gastroesophageal reflux disease with esophagitis, unspecified whether hemorrhage Take 1 Tablet by mouth in the morning and 1 Tablet before bedtime. 180 Tablet 1 4 Active Trelegy Ellipta 200-62.5-25 MCG/ACT Aerosol Powder Breath Activated (Fluticasone-Umecli dinium-Vilanterol)I ndications:COPD, group C, by GOLD 2017 classification ([facility]) Inhale 1 Puff by mouth in the morning. 60 Blister Dosing Unit 10 4 Active Albuterol Sulfate HFA 108 (90 Base) MCG/ACT Inhalation Aerosol SolutionIndications :Pulmonary emphysema, unspecified emphysema type ([facility]) INHALE TWO PUFFS BY MOUTH EVERY 4 HOURS NEEDED FOR SHORTNESS OF BREATH or wheezing 8.5 g 5 4 Active Albuterol Sulfate HFA 108 (90 Base) MCG/ACT Inhalation Aerosol SolutionIndications :Pulmonary emphysema, unspecified emphysema type ([facility]) INHALE TWO PUFFS BY MOUTH EVERY 4 [...] s:COPD, group C, by GOLD 2017 classification ([facility]) Inhale 1 Ampule via nebulizer every 4 [...] ndications:COPD, group C, by GOLD 2017 classification ([facility]) Inhale 1 Puff by mouth in the morning. 60 Blister Dosing Unit 11 4 06/08/19 24 Discontinu ed(Refill) documented as of this encounter (statuses as of 06/11/2023) Active Problems Problem Noted Date Diagnosed Date [...] as of this encounter (statuses as of 06/11/2023) Resolved Problems Problem Noted Date Diagnosed Date [...] LUNG, NOT ELSEWHERE CLASSIFIED 06/12/2002 09/14/2018 CHEST [id number] 04/09/200209/2018 ABN FD-INTRATHOR ORG NEC-akbar nodule 03/06/2002 [...] as of this encounter (statuses as of 06/11/2023) Immunizations Name Administration Dates Next Due COVID-19 mRNA, LNP-s, No Pre serve, 2-Dose Series ([employer]) 05/22/2020,05/01/2020 Seasonal Influenza, PF, 6 M & [...] encounter Miscellaneous Notes * Telephone Encounter - Diaz Pryor - 06/11/2023 10:59 AM EDT Received message from [facility] regarding patient needing labs. Patient was notified. Successfully contacted patient and provided [facility] message. * Telephone Encounter - Ruth Huynh [facility] - 06/09/2023 3:48 PM EDTSigned Prescriptions: Disp Refills Atorvastatin Calcium 80 MG Oral Tablet (Li*90 Tab*2 Sig: Take 1 Tablet by mouth in the morning. Authorizing Provider: HENRY BUSH Ordering User: RUTH HUYNH buPROPion HCl ER (SR) 150 MG Oral Tablet E*180 Ta*3 Sig: TAKE ONE TABLET BY MOUTH IN THE MORNING AND ONE BEFORE BEDTIME Authorizing Provider: HENRY BUSH User: RUTH HUYNH Escitalopram Oxalate 10 MG Oral Tablet (Le*90 Tab*2 Sig: Take 1 Tablet by mouth in the morning. Authorizing Provider: HENRY BUSH Ordering User: RUTH HUYNH Levalbuterol HCl 1.25 MG/3ML Inhalation Ne*72 mL 0 Sig: Inhale 1 Ampule via nebulizer every 4 hours as needed for Wheezing. Authorizing Provider: HENRY BUSH Ordering User: RUTH HUYNH Pantoprazole Sodium 40 MG Oral Tablet Lea*180 Ta*1 Sig: Take 1 Tablet by mouth in the morning and 1 Tablet before bedtime. Authorizing Provider: HENRY BUSH Ordering User: RUTH HUYNH Trelezoe Ellipta 200-62.5-25 MCG/ACT Aeroso*60 Bli*10 Sig: Inhale 1 Puff by mouth in the morning. Authorizing Provider: HENRY BUSH Ordering User: RUTH HUYNH Albuterol Sulfate HFA 108 (90 Base) MCG/AC*8.5 g 5 Sig: INHALE TWO PUFFS BY MOUTH EVERY 4 HOURS NEEDED FOR SHORTNESS OF BREATH or wheezing Authorizing Provider: HENRY BUSH Ordering User: RUTH HUYNH * Telephone Encounter - Ruth Huynh RP - 06/09/2023 3:45 PM EDT Lab orders placed 09/24/22, 03/21/23, 06/09/23 . Please contact patient to advise of labs ordered for blood draw. Recommend patient to fast if able for labs. Patient may still have water and regular medications. Advise to obtain labs before his scheduled office visit 06/20/2023. Thanks, Ruth Huynh, Caio.Ph. Clinical Pharmacist [facility] [phone] ext [phone] 06/09/2023,3:45 PM * Telephone Encounter - Nelia Jordan CPhT - 06/08/2023 4:15 PM EDT Please reroute Rx to [address] Pending Prescriptions: Disp Refills Atorvastatin Calcium 80 MG Oral Tablet (L*90 Tab*2 Sig: Take 1 Tablet by mouth in the morning. buPROPion HCl ER (SR) 150 MG Oral Tablet *180 Ta*3 Sig: TAKE ONE TABLET BY MOUTH IN THE MORNING AND ONE BEFORE BEDTIME Escitalopram Oxalate 10 MG Oral Tablet (L*90 Tab*2 Sig: Take 1 Tablet by mouth in the morning. Levalbuterol HCl 1.25 MG/3ML Inhalation N*72 mL 0 Sig: Inhale 1 Ampule via nebulizer every 4 hours as needed for Wheezing. Pantoprazole Sodium 40 MG Oral Tablet Del*180 Ta*1 Sig: Take 1 Tablet by mouth in the morning and 1 Tablet before bedtime. Trelegy Ellipta 200-62.5-25 MCG/ACT Aeros*60 Bli*10 Sig: Inhale 1 Puff by mouth in the morning. Last Visit: 05/27/2023 (in office), Visit date not found (telemedicine) 06/20/2023 If no future appointments scheduled, and last appointment is greater than a year ago, please schedule patient for a follow-up appointment Last date the medication was ordered: 04/14/23 Patient Phone Numbers Labs: Lab Results Component [...] Description 06/20/2023 8:00 AM EDT Office Visit [address] [place] [phone] [facility] [address] [facility] [address] 06/20/2023 4:30 PM EDT Imaging Radiology [address] [place] [address] 06/28/2023 12:00 PM EDT Office Visit Gastroenterology, [facility] [address] [place] [address] Jerome Conroy CRNP [address] [place] [address] 06/30/2023 12:30 PM EDT [facility] Visit [facility] [place], [facility] [place] [address] Rosa Parra RN [address] [place] [address] 07/05/2023 1:00 PM EDT Office Visit [facility] [address] [facility] [phone] Henry Bush [facility] [address] [facility] [address] 07/18/2023 9:00 AM EDT Home Visit [facility] [place], [facility] [address] [place] [address] Henry Marin PA-C [address] [place] [address] Scheduled Orders Name Type Priority Associated Diagnoses Orde r Schedule LIPID PANEL WITH DIRECT LDL IF TG IS HIGH Lab Routine Atherosclerosis of aorta (HCC) Dyslipidemia, goal LDL below 70 Food insecurity Encounter for long-term (current) use of medications Laboratory exam ordered as part of routine general medical examination Expected: 06/10/2023 (Approximate), Expires: 06/08/2024 Scheduled Procedures Name Priority Associated Diagnoses Date/Ti me COLONOSCOPY FLEXIBLE PROXIMAL DIAGNOSTIC Recall History of colon polyps Health Maintenance Due Date Last Done Comments DISCUSS TOBACCO CESSATION (REFER TO SMARTSET #2838) 1955 Pneumococcal Vaccine: 65+ Years (1 of 2 - PCV) 12/04/1959 Alpha-1 Antitrypsin 12/04/1971 DTaP,Tdap,and Td Vaccines (1 - Tdap) 1972 Cologuard 1998 Fecal Occult Blood Test 1998 Sigmoidoscopy 1998 Zoster Vaccines (1 of 2) 12/04/2003 *ADVANCE DIRECTIVE NOT ON FILE 07/22/2018 AAA Screening 2018 *BISPHONATE OR OTHER ACCEPTABLE MEDICATION NEEDED FOR OSTEOPOROSIS (REFER TO SMARTSET #2926) 06/29/2022 COVID-19 Vaccine (3 - season) 2022 05/22/2020, 05/01/2020 DXA Scan [...] D LEVEL ONCE IN A LIFETIME-USE SMARTSET# [id number] Completed 06/16/2021, 05/03/2014 GARDASIL-HPV IMMUNIZATION SERIES Aged [...] as of this encounter Visit Diagnoses Diagnosis Dyslipidemia, goal LDL below 70- Primary Other and unspecified hyperlipidemia Atherosclerosis of aorta (HCC) Atherosclerosis of aorta Adjustment disorder with depressed mood Mood swings Other specified episodic mood disorder COPD, group C, by GOLD 2017 classification (HCC) Gastroesophageal reflux disease with esophagitis, unspecified whether hemorrhage Pulmonary emphysema, unspecified emphysema type (HCC) Food insecurity Encounter for long-term (current) use of medications Encounter for long-term (current) use of other medications Laboratory exam ordered as part of routine general medical examination Laboratory examination ordered as part of a routine general medical examination documented in this encounter Advance Directives [...] 9:12 AM 05/09/2003 10:12 AM Care Teams Investor Relations Coordinator Relationship Specialty Start Date End Date June, Henry Sylvester MD [address] [place] [address] PCP - General Family Medicine 03/11/22 documented as of this encounter
--- OUTSIDE RECORDS SUMMARY | 2023-06-13 20:29 | External Medical Summary | Summary of Care ---
Author Name Unknown Organization [facility] Address [address] [place] [address] Phone [phone] Care Team Providers Care Yard Engineer Name Role Phone Ajit Moreno MD Primary Care Provider [phone] Encounter Details Date Type Department Care Team (Late st Contact Info) Description 06/13/2023 Orders Only PATIENT PORTAL DO NOT DELETE THIS DEPT USED BY [place] [id number] Allergies Active Allergy Reactions Criticality Noted Date [...] With food 40 Tablet 1 03/10/2022 Active Meclizine HCl 12.5 MG Oral Tablet (Antivert)Indication s:Dizziness TAKE ONE TABLET BY MOUTH THREE TIMES DAILY NEEDED for dizziness 30 Tablet 2 12/13/2022 Active Aspirin 81 MG Oral Tablet Chewable (Aspirin 81) Take 1 Tablet by mouth in the morning. 0 Active Atorvastatin Calcium 80 MG Oral Tablet (Lipitor)Indications :Atherosclerosis of aorta (HCC) Take 1 Tablet by mouth in the morning. 90 Tablet 2 06/09/2023 Active buPROPion HCl ER (SR) 150 MG Oral Tablet Extended Release 12 Hour (Wellbutrin SR)Indications:Adjus tment disorder with depressed mood TAKE ONE TABLET BY MOUTH IN THE MORNING AND ONE BEFORE BEDTIME 180 Tablet 3 06/09/2023 Active Escitalopram Oxalate 10 MG Oral Tablet (Lexapro)Indications :Mood swings Take 1 Tablet by mouth in the morning. 90 Tablet 2 06/09/2023 Active Levalbuterol HCl 1.25 MG/3ML Inhalation Nebulization Solution (Xopenex)Indications :COPD, group C, by GOLD 2017 classification ([facility]) Inhale 1 Ampule via nebulizer every 4 hours as needed for Wheezing. 72 mL 0 06/09/2023 Active Pantoprazole Sodium 40 MG Oral Tablet Delayed Release (Protonix)Indication s:Gastroesophageal reflux disease with esophagitis, unspecified whether hemorrhage Take 1 Tablet by mouth in the morning and 1 Tablet before bedtime. 180 Tablet 1 06/09/2023 Active Trelegy Ellipta 200-62.5-25 MCG/ACT Aerosol Powder Breath Activated (Fluticasone-Umeclid inium-Vilanterol)Ind ications:COPD, group C, by GOLD 2017 classification ([facility]) Inhale 1 Puff by mouth in the morning. 60 Blister Dosing Unit 10 06/09/2023 Active Furosemide 40 MG Oral Tablet (Lasix)Indications:B ilateral lower extremity edema Take 1 Tablet by mouth in the morning. for fluid accumulation or weight gain. 20 Tablet 0 06/13/2023 Active LORazepam 0.5 MG Oral Tablet (Ativan)Indications: Anxiety Take 1 Tablet by mouth every 6 hours as needed for Agitation. 20 Tablet 0 06/13/2023 Active Ondansetron HCl 8 MG Oral Tablet (Zofran)Indications: Nausea without vomiting Take 1 Tablet by mouth every 8 hours as needed for Nausea. 20 Tablet 0 06/13/2023 Active Pregabalin 100 MG Oral Capsule (Lyrica)Indications: Chronic pain syndrome Take 1 Capsule by mouth in the morning and 1 Capsule before bedtime. 60 Capsule 0 06/13/2023 Active Triamcinolone Acetonide 0.1 % External Ointment (Aristocort)Indicati ons:Stasis dermatitis of both legs Apply 2x daily to rash on lower legs when flaring (see printed checkout sheet) 80 g 2 06/08/2023 Active Cyanocobalamin 1000 MCG Oral Tablet (Cyanocobalamin) Take 1 Tablet by mouth in the morning. 90 Tablet 3 06/09/2023 Active Albuterol Sulfate HFA 108 (90 Base) MCG/ACT Inhalation Aerosol SolutionIndications: Pulmonary emphysema, unspecified emphysema type (HCC) INHALE TWO PUFFS BY MOUTH EVERY 4 HOURS NEEDED FOR SHORTNESS OF BREATH or wheezing 8.5 g 5 06/09/2023 Active documented as of this encounter (statuses [...] LUNG, NOT ELSEWHERE CLASSIFIED 06/12/2002 09/14/2018 CHEST [id number] 04/09/200209/2018 ABN FD-INTRATHOR ORG NEC-akbar nodule 03/06/2002 [...] mRNA, LNP-s, No Pre serve, 2-Dose Series ([employer]) 05/22/2020,05/01/2020 Seasonal Influenza, PF, 6 M [...] Description 06/20/2023 8:00 AM EDT Office Visit [facility] [address] [place] [phone] June, Ajit Sylvester [facility] [address] [facility] [place] [address] 06/20/2023 4:30 PM EDT Imaging Radiology [facility] [address] [place] [address] 06/28/2023 12:00 PM EDT Office Visit Gastroenterology, [facility] [address] [place] [address] Jerome Conroy CRNP [address] [place] [address] 06/30/2023 12:30 PM EDT [facility] [address] [place] [address] Rosa Parra, RN [address] [place] [address] 07/05/2023 1:00 PM EDT Office Visit [facility] [address] [facility] [place] [phone] Ajit Moreno MD [address] [place] [address] 07/18/2023 9:00 AM EDT [facility] Visit [facility], [facility] [address] [place] [address] Ajit Marin PA-C [address] [place] [address] Scheduled Procedures Name Priority Associated Diagnoses Date/Ti me COLONOSCOPY FLEXIBLE PROXIMAL DIAGNOSTIC Recall History of colon polyps Health Maintenance Due Date Last Done Comments DISCUSS TOBACCO CESSATION (REFER TO SMARTSET #4341) 1955 Pneumococcal Vaccine: 65+ Years (1 of [...] D LEVEL ONCE IN A LIFETIME-USE SMARTSET# [id number] Completed 06/16/2021, 05/03/2014 GARDASIL-HPV IMMUNIZATION SERIES Aged [...] 9:12 AM 05/09/2003 10:12 AM Care Teams Yard Engineer Relationship Specialty Start Date End Date June, Ajit Sylvester MD [address] [place] [facility] [place] [address] PCP - General Family Medicine 03/11/22 documented as of this encounter
--- OUTSIDE RECORDS SUMMARY | 2023-06-13 20:29 | External Medical Summary | Summary of Care ---
Author Name Unknown Organization [facility] Address [address] [place] [address] Phone [phone] Care Team Providers Care Brazing Machine Operator Name Role Phone Henry Bush MD Primary Care Provider [phone] Reason for Visit * Reason Onset Date Comments Medication Refill 06/08/2023 Encounter Details Date Type Department Care Team (Late st Contact Info) Description 06/08/2023 Refill [facility] [address] [place] [address] JuneHenry MD [address] [place] [address] Stasis dermatitis of both legs Allergies Active Allergy Reactions Criticality Noted Date Comments Fluticasone High 02/27/2020 Other reaction(s): lightheadedness and nausea Umeclidinium High 02/27/2020 Other reaction(s): lightheadedness and nausea Vilanterol High 02/27/2020 Other reaction(s): lightheadedness and nausea documented as of this encounter (statuses as of 06/08/2023) Medications Medication Sig Dispensed Refills Start Date [...] :Pulmonary emphysema, unspecified emphysema type ([facility]) INHALE TWO PUFFS BY MOUTH [...] C, by GOLD 2017 classification ([facility]) Inhale 1 Ampule via nebulizer [...] for Agitation. 20 Tablet 0 4 Active Atorvastatin Calcium 80 MG Oral Tablet (Lipitor)Indication s:Atherosclerosis of aorta (HCC) TAKE 1 TABLET BY MOUTH ONCE DAILY 90 Tablet 3 4 Active Pregabalin 100 MG Oral Capsule (Lyrica)Indications :Chronic pain syndrome Take 1 Capsule by mouth in the morning and 1 Capsule before bedtime. 60 Capsule 0 4 Active Escitalopram Oxalate 10 MG Oral Tablet (Lexapro)Indication s:Mood swings Take 1 Tablet by mouth in the morning. 90 Tablet 3 4 Active Furosemide 40 MG Oral Tablet (Lasix)Indications: Bilateral lower extremity edema Take 1 Tablet by mouth in the morning. for fluid accumulation or weight gain. 20 Tablet 0 4 Active Trelegy Ellipta 200-62.5-25 MCG/ACT Aerosol Powder Breath Activated (Fluticasone-Umecli dinium-Vilanterol)I ndications:COPD, group C, by GOLD 2017 classification ([facility]) Inhale 1 Puff by mouth in the morning. 60 Blister Dosing Unit 11 4 Active Triamcinolone Acetonide 0.1 % External Ointment (Aristocort)Indicat ions:Stasis dermatitis of both legs Apply 2x daily to rash on lower legs when flaring (see printed checkout sheet) 80 g 2 4 Active Triamcinolone Acetonide 0.1 % External Ointment (Aristocort)Indicat ions:Stasis dermatitis of both legs Apply 2x daily to rash on lower legs when flaring (see printed checkout sheet) 80 g 0 4 06/08/19 24 Discontinu ed(Refill) documented as of this encounter (statuses as of 06/08/2023) Active Problems Problem Noted Date Diagnosed Date [...] as of this encounter (statuses as of 06/08/2023) Resolved Problems Problem Noted Date Diagnosed Date [...] LUNG, NOT ELSEWHERE CLASSIFIED 06/12/2002 09/14/2018 CHEST [id number] 04/09/200209/2018 ABN FD-INTRATHOR ORG NEC-akbar nodule 03/06/2002 [...] as of this encounter (statuses as of 06/08/2023) Immunizations Name Administration Dates Next Due COVID-19 mRNA, LNP-s, No Pre serve, 2-Dose Series ([employer] / [employer]) 05/22/2020,05/01/2020 Seasonal Influenza, PF, 6 M & [...] Telephone Encounter - Henry Bush MD - 06/08/2023 4:45 PM EDTSigned Prescriptions: Disp Refills Triamcinolone Acetonide 0.1 % External Oin*80 g 2 Sig: Apply 2x daily to rash on lower legs when flaring (see printed checkout sheet)Authorizing Provider: HENRY BUSH * Telephone Encounter - Nelia Jordan CPhT - 06/08/2023 4:22 PM EDT Did you pend patient's preferred pharmacy and medication before forwarding?yes Pharmacy: [facility] [address]- [place] Pending Prescriptions: Disp Refills Triamcinolone Acetonide 0.1 % External Oi*80 g 0 Sig: Apply 2x daily to rash on lower legs when flaring (see printed checkout sheet) Last Visit: 05/27/2023 (in office), Visit date not found (telemedicine) Next Visit: 06/20/2023 If no future appointments scheduled, and last appointment is greater than a year ago, please schedule patient for a follow-up appointment Last date the medication was ordered: 04/12/23 Is this request for a controlled substance?No Urine Drug Screen: Results for orders placed [...] Description 06/20/2023 8:00 AM EDT Office Visit [facility] [address] [place] [facility] [place] [phone] JuneHenry MD [address] [place] [address] 06/20/2023 4:30 PM EDT Imaging Radiology [facility] [address] [place] [address] 06/28/2023 12:00 PM EDT Office Visit [facility], [facility] [address] [facility] [place] [address] Jerome Conroy CRNP [address] [facility] [place] [address] 07/05/2023 1:00 PM EDT Office Visit [facility] [address] [place] [phone] Henry Bush MD [address] [place] [address] Scheduled Procedures Name Priority Associated Diagnoses Date/Ti me COLONOSCOPY FLEXIBLE PROXIMAL DIAGNOSTIC Recall History of colon polyps Health Maintenance Due Date Last Done Comments DISCUSS TOBACCO CESSATION (REFER TO SMARTSET #7428) 1955 Pneumococcal Vaccine: 65+ Years (1 of [...] D LEVEL ONCE IN A LIFETIME-USE SMARTSET# [id number] Completed 06/16/2021, 05/03/2014 GARDASIL-HPV IMMUNIZATION SERIES Aged [...] as of this encounter Visit Diagnoses Diagnosis Stasis dermatitis of both legs Varicose veins of lower extremities with inflammation documented in this encounter Advance Directives Latest [...] 9:12 AM 05/09/2003 10:12 AM Care Teams Brazing Machine Operator Relationship Specialty Start Date End Date June, Henry Sylvester MD [address] [place] [address] PCP - General Family Medicine 03/11/22 documented as of this encounter
--- OUTSIDE RECORDS SUMMARY | 2023-06-13 20:29 | External Medical Summary | Summary of Care ---
Author Name Unknown Organization [facility] Address [address] [place] [address] Phone [phone] Care Team Providers Care Superintendent Pipelines Name Role Phone Henry Bush MD Primary Care Provider [phone] Reason for Visit * Reason Onset Date Comments Medication Refill 06/08/2023 Encounter Details Date Type Department Care Team (Late st Contact Info) Description 06/08/2023 Refill [facility] [address] [place] [address] Henry Bush MD [address] [place] [address] Dyslipidemia, goal LDL below 70*; Atherosclerosis of aorta (HCC); Adjustment disorder with depressed mood; Mood swings; COPD, group C, by GOLD 2017 classification (HCC); Gastroesophageal reflux disease with esophagitis, unspecified whether hemorrhage; Pulmonary emphysema, unspecified emphysema type ([facility]); Food insecurity; Encounter for long-term (current) use of medications; Laboratory exam ordered as part of routine general medical examination Allergies Active Allergy Reactions Criticality Noted Date Comments Fluticasone High 02/27/2020 Other reaction(s): lightheadedness and nausea Umeclidinium High 02/27/2020 Other reaction(s): lightheadedness and nausea Vilanterol High 02/27/2020 Other reaction(s): lightheadedness and nausea documented as of this encounter (statuses as of 06/10/2023) Medications Medication Sig Dispensed Refills Start Date [...] s:COPD, group C, by GOLD 2017 classification ([facility]) Inhale 1 Ampule via nebulizer every 4 [...] ndications:COPD, group C, by GOLD 2017 classification ([facility]) Inhale 1 Puff by mouth in the morning. 60 Blister Dosing Unit 10 4 Active Albuterol Sulfate HFA 108 (90 Base) MCG/ACT Inhalation Aerosol SolutionIndications :Pulmonary emphysema, unspecified emphysema type ([facility]) INHALE TWO PUFFS BY MOUTH EVERY 4 HOURS NEEDED FOR SHORTNESS OF BREATH or wheezing 8.5 g 5 4 Active Albuterol Sulfate HFA 108 (90 Base) MCG/ACT Inhalation Aerosol SolutionIndications :Pulmonary emphysema, unspecified emphysema type ([facility]) INHALE TWO PUFFS BY MOUTH EVERY 4 [...] s:COPD, group C, by GOLD 2017 classification ([facility]) Inhale 1 Ampule via nebulizer every 4 [...] ndications:COPD, group C, by GOLD 2017 classification ([facility]) Inhale 1 Puff by mouth in the morning. 60 Blister Dosing Unit 11 4 06/08/19 24 Discontinu ed(Refill) documented as of this encounter (statuses as of 06/10/2023) Active Problems Problem Noted Date Diagnosed Date [...] as of this encounter (statuses as of 06/10/2023) Resolved Problems Problem Noted Date Diagnosed Date [...] LUNG, NOT ELSEWHERE CLASSIFIED 06/12/2002 09/14/2018 CHEST [id number] 04/09/200209/2018 ABN FD-INTRATHOR ORG NEC-akbar nodule 03/06/2002 [...] as of this encounter (statuses as of 06/10/2023) Immunizations Name Administration Dates Next Due COVID-19 mRNA, LNP-s, No Pre serve, 2-Dose Series ([employer]) 05/22/2020,05/01/2020 Seasonal Influenza, PF, 6 M & [...] encounter Miscellaneous Notes * Telephone Encounter - Ruth Huynh, [facility] - 06/09/2023 3:48 PM EDTSigned Prescriptions: Disp Refills Atorvastatin Calcium 80 MG Oral Tablet (Li*90 Tab*2 Sig: Take 1 Tablet by mouth in the morning. Authorizing Provider: HENRY BUSH Ordering User: RUTH HUYNH buPROPion HCl ER (SR) 150 MG Oral Tablet E*180 Ta*3 Sig: TAKE ONE TABLET BY MOUTH IN THE MORNING AND ONE BEFORE BEDTIME Authorizing Provider: HENRY BUSH Or xochitl User: RUTH HUYNH Escitalopram Oxalate 10 MG [...] Provider: HENRY BUSH Ordering User: RUTH HUYNH Trelegy Ellipta 200-62.5-25 MCG/ACT Aeroso*60 Bli*10 Sig: Inhale [...] 06/20/2023. Thanks, Ruth Huynh, Caio.Ph. Clinical Pharmacist [facility] [phone] ext [phone] 06/09/2023,3:45 PM * Telephone Encounter - Nelia Jordan CPhT - 06/08/2023 4:15 PM EDT Please reroute Rx to [address] Pending Prescriptions: Disp Refills Atorvastatin Calcium [...] EDT Office Visit [facility] [address] [place] [address] JuneHenry MD [address] [place] [address] 06/20/2023 4:30 PM EDT Imaging Radiology [address], [address] [place] [address] 06/28/2023 12:00 PM EDT Office Visit Gastroenterology, [facility] [address] [place] [address] Jerome Conroy CRNP [address] [place] [address] 07/05/2023 1:00 PM EDT Office Visit [facility] [address] [place] [phone] June, Henry Sylvester MD [address] [place] [address], [place] [phone] Scheduled Orders Name Type Priority Associated Diagnoses [...] Comments DISCUSS TOBACCO CESSATION (REFER TO SMARTSET #9685) 1955 Pneumococcal Vaccine: 65+ Years (1 of 2 - PCV) 12/04/1959 Alpha-1 Antitrypsin 12/04/1971 DTaP,Tdap,and Td Vaccines (1 - Tdap) 1972 Cologuard 1998 Fecal Occult Blood Test 1998 Sigmoidoscopy 1998 Zoster Vaccines (1 of 2) 12/04/2003 *ADVANCE DIRECTIVE NOT ON FILE 07/22/2018 AAA Screening 2018 *BISPHONATE OR OTHER ACCEPTABLE MEDICATION NEEDED FOR OSTEOPOROSIS (REFER TO SMARTSET #6976) 06/29/2022 COVID-19 Vaccine ( - season) 2022 [...] D LEVEL ONCE IN A LIFETIME-USE SMARTSET# [id number] Completed 06/16/2021, 05/03/2014 GARDASIL-HPV IMMUNIZATION SERIES Aged [...] 9:12 AM 05/09/2003 10:12 AM Care Teams Superintendent Pipelines Relationship Specialty Start Date End Date June, Henry Sylvester MD [address] [facility] [place] [address] PCP - General Family Medicine 03/11/22 documented as of this encounter
--- OUTSIDE RECORDS SUMMARY | 2023-06-13 20:29 | External Medical Summary | Summary of Care ---
Author Name Unknown Organization [facility] Address [address] [place] [address] Phone [phone] Care Team Providers Care Rotary Dryer Operator Name Role Phone Ajit Moreno MD Primary Care Provider [phone] Reason for Visit * Reason Onset Date Comments Appointment 06/10/2023 Encounter Details Date Type Department Care Team (Late st Contact Info) Description 06/10/2023 Telephone [facility] [place] [address] [place] [phone] Services, Scheduling [address] [place] [address] Appointment (//) Allergies Active Allergy Reactions Criticality Noted Date [...] for Nausea. 20 Tablet 0 03/21/2023 Active LORazepam 0.5 MG Oral Tablet (Ativan)Indications: Anxiety Take 1 Tablet by mouth every 6 hours as needed for Agitation. 20 Tablet 0 03/21/2023 Active Pregabalin 100 MG Oral Capsule (Lyrica)Indications: Chronic pain syndrome Take 1 Capsule by mouth in the morning and 1 Capsule before bedtime. 60 Capsule 0 05/02/2023 Active Furosemide 40 MG Oral Tablet (Lasix)Indications:B ilateral lower extremity edema Take 1 Tablet by mouth in the morning. for fluid accumulation or weight gain. 20 Tablet 0 05/27/2023 Active Atorvastatin Calcium 80 MG Oral Tablet [...] :COPD, group C, by GOLD 2017 classification ([facility]) Inhale 1 Ampule via nebulizer [...] ications:COPD, group C, by GOLD 2017 classification ([facility]) Inhale 1 Puff by mouth in the morning. 60 Blister Dosing Unit 10 06/09/2023 Active Triamcinolone Acetonide 0.1 % External Ointment [...] Aerosol SolutionIndications: Pulmonary emphysema, unspecified emphysema type ([facility]) INHALE TWO PUFFS BY MOUTH EVERY 4 HOURS NEEDED FOR SHORTNESS OF BREATH or wheezing 8.5 g 5 06/09/2023 Active documented as of this encounter (statuses as of 06/10/2023) Active Problems Problem Noted Date Diagnosed Date Severe obesity (BMI 35.0-39.9) with comorbidity 05/27/2023 Food insecurity 05/16/2023 Overview: Per [facility] Protocol Personal history of other venous [...] LUNG, NOT ELSEWHERE CLASSIFIED 06/12/2002 09/14/2018 CHEST [id number] 04/09/200209/2018 ABN FD-INTRATHOR ORG NEC-akbar nodule 03/06/2002 [...] mRNA, LNP-s, No Pre serve, 2-Dose Series ([employer]) 05/22/2020,05/01/2020 Seasonal Influenza, PF, 6 M & [...] encounter Miscellaneous Notes * Telephone Encounter - Karan Quinn OSA - 06/10/2023 10:22 AM EDT [facility] Engagement Attempt Engagement: Engagement Attempt 1: Contacted - Agreed to home-based services Scheduled appointment information: No data was found Home Information: Has pets Advance Care Planning (ACP): No data was found Has Living Will or Advance Directive: Yes - have available for first visit Anticipated Sub-Program: Focused Care Management (3-9 months) Confirmation of Sub-Program Type (by care prepared foods service team member): No data was found Handoff Information: Current care team notified via: No data was found Current telemonitoring equipment: No data was found documented in this encounter Plan of Treatment Upcoming Encounters Date Type Department Care Team (Late st Contact Info) Description 06/20/2023 8:00 AM EDT Office Visit [facility] [address] [place] [phone] JuneAjit MD [address] [place] [address] 06/20/2023 4:30 PM EDT Imaging Radiology [address], [address] [place] [address] 06/24/2023 12:30 PM EDT Home Visit [facility], [facility] [address] [place] [address] Rosa Parra, RN [address] [place] [address] 06/28/2023 12:00 PM EDT Office Visit Gastroenterology, [facility] [address] [place] [address] Jerome Conroy CRNP [address] [place] [address] 07/05/2023 1:00 PM EDT Office Visit [facility] [address] [place] [phone] Ajit Moreno MD [address] [place] [address] 07/18/2023 9:00 AM EDT Home Visit [facility] [place], [facility] [address] [place] [address] Aijt Marin PA-C [address] [place] [address] Scheduled Procedures Name Priority Associated Diagnoses Date/Ti me COLONOSCOPY FLEXIBLE PROXIMAL DIAGNOSTIC Recall History of colon polyps Health Maintenance Due Date Last Done Comments DISCUSS TOBACCO CESSATION (REFER TO SMARTSET #5238) 1955 Pneumococcal Vaccine: 65+ Years (1 of [...] D LEVEL ONCE IN A LIFETIME-USE SMARTSET# [id number] Completed 06/16/2021, 05/03/2014 GARDASIL-HPV IMMUNIZATION SERIES Aged [...] 9:12 AM 05/09/2003 10:12 AM Care Teams Rotary Dryer Operator Relationship Specialty Start Date End Date June, Ajit Sylvester MD [address] [facility] [place] [id number] PCP - General Family Medicine 03/11/22 documented as of this encounter
--- OUTSIDE RECORDS SUMMARY | 2023-06-13 20:29 | External Medical Summary | Summary of Care ---
Author Name Unknown Organization [facility] Address [address] [place] [address] Phone [phone] Care Team Providers Care Director Long Term Care Name Role Phone Ajit Moreno MD Primary Care Provider [phone] Reason for Visit * Reason Onset Date Comments Appointment 06/10/2023 Encounter Details Date Type Department Care Team (Late st Contact Info) Description 06/10/2023 Telephone [facility] [place] [address] [place] [phone] Services, Scheduling [address] [place] [address] Appointment Allergies Active Allergy Reactions Criticality Noted [...] :COPD, group C, by GOLD 2017 classification ([facility]) Inhale 1 Ampule via nebulizer every 4 [...] ications:COPD, group C, by GOLD 2017 classification ([facility]) Inhale 1 Puff by mouth in the [...] Aerosol SolutionIndications: Pulmonary emphysema, unspecified emphysema type ([facility]) INHALE TWO PUFFS BY MOUTH EVERY 4 HOURS NEEDED FOR SHORTNESS OF BREATH or wheezing 8.5 g 5 06/09/2023 Active documented as of this encounter (statuses as of 06/10/2023) Active Problems Problem Noted Date Diagnosed Date Severe obesity (BMI 35.0-39.9) with comorbidity 05/27/2023 Food insecurity 05/16/2023 Overview: Per [facility] Protocol Personal history of other [...] (see actual BMI) 04/08/2011 Overview: bmi= 32.58 3/1/12 Tobacco use disorder 04/08/2011 Gastroesophageal reflux disease [...] LUNG, NOT ELSEWHERE CLASSIFIED 06/12/2002 09/14/2018 CHEST [id number] 04/09/200209/2018 ABN FD-INTRATHOR ORG NEC-akbar nodule 03/06/2002 [...] mRNA, LNP-s, No Pre serve, 2-Dose Series ([employer]) 05/22/2020,05/01/2020 Seasonal Influenza, PF, 6 M & [...] encounter Miscellaneous Notes * Telephone Encounter - Stephie Manning OSA - 06/10/2023 3:14 PM EDT Request to move appt due to PTO, appt set for 06/29, lmom to call us back if this does not work. documented in this encounter Plan of Treatment Upcoming Encounters Date Type Department Care Team (Late st Contact Info) Description 06/20/2023 8:00 AM EDT Office Visit [facility] [address] [place] [facility] [place] [address] JuneAjit MD [address] [place] [address] 06/20/2023 4:30 PM EDT [facility] [address] [facility] [place] [address] 06/28/2023 12:00 PM EDT Office Visit Gastroenterology, [facility] [address] [facility] [place] [address] Jerome Conroy CRNP [address] [facility] [place] [address] 06/30/2023 12:30 PM EDT [facility] Visit [facility] [place], [facility] [address] [facility] [place] [address] Rosa Parra RN [address] [place] [address] 07/05/2023 1:00 PM EDT Office Visit [facility] [address] [place] [address] JuneAjit MD [address] [place] [address] 07/18/2023 9:00 AM EDT [facility] [address] [facility] [place] [address] Ajit Marin PA-C [address] [place] [address] Scheduled Procedures Name Priority Associated Diagnoses Date/Ti me COLONOSCOPY FLEXIBLE PROXIMAL DIAGNOSTIC Recall History of colon polyps Health Maintenance Due Date Last Done Comments DISCUSS TOBACCO CESSATION (REFER TO SMARTSET #4860) 1955 Pneumococcal Vaccine: 65+ Years (1 of [...] D LEVEL ONCE IN A LIFETIME-USE SMARTSET# [id number] Completed 06/16/2021, 05/03/2014 GARDASIL-HPV IMMUNIZATION SERIES Aged [...] AM 05/09/2003 10:12 AM Care Teams Director Long Term Care Relationship Specialty Start Date End Date June, Ajit Sylvester MD [address] [place] [address] PCP - General Family Medicine 03/11/22 documented as of this encounter
--- OUTSIDE RECORDS SUMMARY | 2023-06-13 20:30 | External Medical Summary | Summary of Care ---
Author Name Unknown Organization [facility] Address [address] [place] [address] Phone [phone] Care Team Providers Care Roofing Machine Operator Name Role Phone Ajit Moreno MD Primary Care Provider [phone] Reason for Visit * Reason Onset Date Comments Home Monitoring Orders Only 05/27/2023 Encounter Details Date Type Department Care Team (Late st Contact Info) Description 05/27/2023 Home Monitoring [facility] [address] [place] [address] JuneAjit MD [address] [place] [address] COPD exacerbation (HCC)* Allergies Active Allergy Reactions Criticality Noted Date Comments Fluticasone High 02/27/2020 Other reaction(s): lightheadedness and nausea Umeclidinium High 02/27/2020 Other reaction(s): lightheadedness and nausea Vilanterol High 02/27/2020 Other reaction(s): lightheadedness and nausea documented as of this encounter (statuses as of 05/27/2023) Medications Medication Sig Dispensed Refills Start Date [...] Aerosol SolutionIndications: Pulmonary emphysema, unspecified emphysema type ([facility]) INHALE TWO PUFFS BY [...] as of this encounter (statuses as of 05/27/2023) Active Problems Problem Noted Date Diagnosed Date Food insecurity 05/16/2023 Overview: Per [employer] [...] as of this encounter (statuses as of 05/27/2023) Resolved Problems Problem Noted Date Diagnosed Date [...] LUNG, NOT ELSEWHERE CLASSIFIED 06/12/2002 09/14/2018 CHEST [id number] 04/09/200209/2018 ABN FD-INTRATHOR ORG NEC-akbar nodule 03/06/2002 [...] as of this encounter (statuses as of 05/27/2023) Immunizations Name Administration Dates Next Due COVID-19 mRNA, LNP-s, No Pre serve, 2-Dose Series ([employer]) 05/22/2020,05/01/2020 Seasonal Influenza, PF, 6 M & [...] as of this encounter Progress Notes * Kathy Ortega OSA - 05/27/2023 8:36 AM EDT Patient has been discharged from the [employer] home monitoring program due to patient not using device, [facility] collected the device. documented in this encounter Plan of Treatment Upcoming Encounters Date Type Department Care Team (Latest Contact Info) Description 05/27/2023 12:00 PM EDT Scheduled Telephone [facility], [facility] [address] [facility] [place] [address] Coordinator, [facility] [address] [facility] [place] [address] COPD, group C, by GOLD 2017 classification (HCC)* 05/27/2023 3:20 PM EDT Office Visit [facility] [address] [place] [facility] [place] [phone] June, Ajit Sylvester MD [address] [place] [facility] [place] [address] 06/20/2023 8:00 AM EDT Office Visit [facility] [place] [address] [place] [address] JuneAjit MD [address] [place] [address] 06/20/2023 4:30 PM EDT Imaging Radiology [address], [address] [place] [address] 07/05/2023 1:00 PM EDT Office Visit [facility] [place] [address] [place] [address] Ajit Moreno MD [address] [place] [address] Scheduled Procedures Name Priority Associated Diagnoses Date/Ti [...] (REFER TO SMARTSET #1146) 06/29/2022 COVID-19 Vaccine (2022- season) 2022 05/22/2020, 05/01/2020 DXA Scan 10/14/2022 10/14/2020 Influenza Vaccine (FLU shot) (Season Ended) 2023 01/08/2022, 10/26/2019, 12/22/2018, Additional history exists Depression Screening 04/07/2024 04/08/2023 O2 ASSESSMENT COMPLETED IN PAST YEAR FOR COPD 04/11/2024 04/12/2023 Diabetes Screening 01/11/2025 01/11/2022, 1 04/05/2020, 07/03/2020, Additional history exists COLONOSCOPY-EVERY 5 YRS AGES 18-100 03/18/2026 03/18/2021, 03/18/2021, 12/18/2019, Additional history exists Lung Cancer Screening Completed 11/08/2016 , 11/03/2016, 12/22/2015, Additional history exists Hepatitis C Screening Completed 05/31/2017 , 08/07/2015, 05/03/2014 COLONOSCOPY-ANNUAL AGES 18-100 Discontinued 03/18/2021, 03/18/2021, 12/18/2019, Additional history exists VITAMIN D LEVEL ONCE IN A LIFETIME-USE SMARTSET# 47231 Completed 06/16/2021, 05/03/2014 GARDASIL-HPV IMMUNIZATION SERIES Aged [...] as of this encounter Visit Diagnoses Diagnosis COPD, group C, by GOLD 2017 classification (HCC)- Primary COPD exacerbation (HCC)- Primary Obstructive chronic bronchitis with exacerbation documented in this encounter Advance Directives Latest [...] 9:12 AM 05/09/2003 10:12 AM Care Teams Roofing Machine Operator Relationship Specialty Start Date End Date June, Ajit Sylvester MD [address] [place] [address] PCP - General Family Medicine 03/11/22 documented as of this encounter
--- OUTSIDE RECORDS SUMMARY | 2023-06-13 20:30 | External Medical Summary | Summary of Care ---
Author Name Unknown Organization [facility] Address [address] [place] [address] Phone [phone] Care Team Providers Care [employer] Name Role Phone Ajit Moreno MD Primary Care Provider [phone] Reason for Visit * Reason Onset Date Comments [facility]: Screening 05/26/2023 Encounter Details Date Type Department Care Team ([facility] Contact Info) Description 05/26/2023 Telephone [facility], [facility] [address] [facility] [place] [address] [facility], Nurse [facility] [address] [place] [facility] [place] [address] [facility]: Screening Allergies Active Allergy Reactions Criticality Noted Date Comments Fluticasone High 02/27/2020 Other reaction(s): lightheadedness and nausea Umeclidinium High 02/27/2020 Other reaction(s): lightheadedness and nausea Vilanterol High 02/27/2020 Other reaction(s): lightheadedness and nausea documented as of this encounter (statuses as of 05/26/2023) Medications Medication Sig Dispensed Refills Start Date [...] Pulmonary emphysema, unspecified emphysema type ([facility]) INHALE TWO PUFFS BY MOUTH EVERY 4 [...] C, by GOLD 2017 classification ([facility]) Inhale 1 Ampule via nebulizer every [...] as of this encounter (statuses as of 05/26/2023) Active Problems Problem Noted Date Diagnosed Date [...] as of this encounter (statuses as of 05/26/2023) Resolved Problems Problem Noted Date Diagnosed Date [...] LUNG, NOT ELSEWHERE CLASSIFIED 06/12/2002 09/14/2018 CHEST [id number] 04/09/200209/2018 ABN FD-INTRATHOR ORG NEC-akbar nodule 03/06/2002 [...] as of this encounter (statuses as of 05/26/2023) Immunizations Name Administration Dates Next Due COVID-19 mRNA, LNP-s, No Pre serve, 2-Dose Series ([employer]) 05/22/2020,05/01/2020 Seasonal Influenza, PF, 6 M & [...] encounter Miscellaneous Notes * Telephone Encounter - Saray Kwan LPN - 05/26/2023 3:25 PM EDT Florentin Franks was referred as a potential candidate for enrollment for [facility]. A review of this chart was completed and: Florentin meets criteria for [facility]. Jump to Initiation Referring care team was notified via : [employer] communication documented in this encounter Plan of Treatment Upcoming Encounters Date Type Department Care Team ([facility] st Contact Info) Description 05/27/2023 3:20 PM EDT Office Visit [facility] [place] [address] [facility] [place] [phone] JuneAjit MD [address] [facility] [place], [place] [phone] 06/20/2023 8:00 AM EDT [facility] [address] [facility] [place] [phone] JuneAjit MD [address] [facility] [facility] [place] [address] 06/20/2023 4:30 PM EDT Imaging Radiology [facility] [address] [facility] [place] [address] [place] [address] 07/05/2023 1:00 PM EDT Office Visit [facility] [address] [facility] [phone] June, Ajit Sylvester MD [address] [facility] [address] Scheduled Procedures Name Priority Associated Diagnoses Date/Ti me COLONOSCOPY FLEXIBLE PROXIMAL DIAGNOSTIC Recall History of colon polyps Health Maintenance Due Date Last Done Comments DISCUSS TOBACCO CESSATION (REFER TO SMARTSET #5091) 1955 Pneumococcal Vaccine: 65+ Years (1 of 2 - PCV) 12/04/1959 Alpha-1 Antitrypsin 12/04/1971 DTaP,Tdap,and Td Vaccines (1 - Tdap) 1972 Zoster Vaccines (1 of 2) 12/04/2003 *ADVANCE DIRECTIVE NOT ON FILE 07/22/2018 AAA Screening 2018 *BISPHONATE OR OTHER ACCEPTABLE MEDICATION NEEDED FOR OSTEOPOROSIS (REFER TO SMARTSET #1146) 06/29/2022 COVID-19 Vaccine ( - 2022- season) 2022 05/22/2020, 05/01/2020 DXA Scan 10/14/2022 [...] D LEVEL ONCE IN A LIFETIME-USE SMARTSET# [id number] Completed 06/16/2021, 05/03/2014 GARDASIL-HPV IMMUNIZATION SERIES Aged [...] 9:12 AM 05/09/2003 10:12 AM Care Teams [employer] Relationship Specialty Start Date End Date June, Ajit Sylvester MD [address] [facility] [place] [address] PCP - General Family Medicine 03/11/22 documented as of this encounter
--- OUTSIDE RECORDS SUMMARY | 2023-06-13 20:30 | External Medical Summary | Summary of Care ---
Author Name Unknown Organization [facility] Address [address] [place] [address] Phone [phone] Care Team Providers Care Visual Designer Name Role Phone Ajit Moreno MD Primary Care Provider Reason for Visit * Reason Onset Date Comments Appointment 05/26/2023 Encounter Details Date Type Department Care Team ([facility] st Contact Info) Description 05/26/2023 Telephone [facility], [place] [address] [place] [address] Services, Scheduling [address] [place] [address] Appointment (/) Allergies Active Allergy Reactions Criticality Noted Date [...] Aerosol SolutionIndications: Pulmonary emphysema, unspecified emphysema type ([facility]) INHALE TWO PUFFS BY MOUTH EVERY 4 [...] :COPD, group C, by GOLD 2017 classification ([facility]) Inhale 1 Ampule via nebulizer every 4 [...] LUNG, NOT ELSEWHERE CLASSIFIED 06/12/2002 09/14/2018 CHEST [id number] 04/09/200209/2018 ABN FD-INTRATHOR ORG NEC-akbar nodule 03/06/2002 [...] mRNA, LNP-s, No Pre serve, 2-Dose Series ([employer]) 05/22/2020,05/01/2020 Seasonal Influenza, PF, 6 M & [...] Telephone Encounter - Karan Quinn OSA - 05/26/2023 3:59 PM EDT [facility] Engagement Attempt Engagement: Engagement Attempt 1: Unable to contact Engagement Attempt 2: No data was found Home Information: No data was found Advance Care Planning (ACP): No data was found Has Living Will or Advance Directive: No data was found Anticipated Sub-Program: Focused Care Management (3-9 months) Confirmation of Sub-Program Type (by care executive officer special warfare team): No data was found Handoff Information: Current care team notified via: No data was found Current telemonitoring equipment: No data was found 05/25-[facility]-/ documented in this encounter Plan of Treatment Upcoming Encounters Date Type Department Care Team (Late st Contact Info) Description 05/27/2023 12:00 PM EDT Scheduled Telephone [facility], [facility] [address] [place] [address] Coordinator, [facility] [address] [place] [address] 05/27/2023 3:20 PM EDT Office Visit [address] [place] [address] Ajit Moreno MD [address] [place] [address] 06/20/2023 8:00 AM EDT Office Visit [facility] [address] [facility] [phone] Ajit Moreno MD [address] [facility] [place] [phone] 06/20/2023 4:30 PM EDT Imaging Radiology [address], [place] [address] [facility] [place] [address] 07/05/2023 1:00 PM EDT Office Visit [facility] [address] [place] [phone] JuneAjit MD [address] [facility] [place] [phone] Scheduled Procedures Name Priority Associated Diagnoses Date/Ti me COLONOSCOPY FLEXIBLE PROXIMAL DIAGNOSTIC Recall History of colon polyps Health Maintenance Due Date Last Done Comments DISCUSS TOBACCO CESSATION (REFER TO SMARTSET #9556) 1955 Pneumococcal Vaccine: 65+ Years (1 of [...] D LEVEL ONCE IN A LIFETIME-USE SMARTSET# [id number] Completed 06/16/2021, 05/03/2014 GARDASIL-HPV IMMUNIZATION SERIES Aged [...] 9:12 AM 05/09/2003 10:12 AM Care Teams Visual Designer Relationship Specialty Start Date End Date June, Ajit Sylvester MD [address] [facility] [place] [address] PCP - General Family Medicine 03/11/22 documented as of this encounter
--- OUTSIDE RECORDS SUMMARY | 2023-06-13 20:30 | External Medical Summary | Summary of Care ---
Author Name Unknown Organization [facility] Address [address] [place] [address] Phone [phone] Care Team Providers Care Accounting Systems Analyst Name Role Phone Ajit Moreno MD Primary Care Provider [phone] Reason for Referral * Social Care (Within 10 days (routine)) - Authorized Specialty Diagnoses / Procedures Referred By Nena altman Referred To Contact Barrer And Tacker Diagnoses COPD, group C, by GOLD 2017 classification ([facility]) Roshan Stevens DO [address] [facility] [place] [address] Referral ID Status Reason Start Date Expiration Date Visits Requested Visits Authorized [id number] Authorized Specialty Services Required 05/27/[phone] Question Answer Referral Priority Within 10 days (routine) Where should this appointment be scheduled? [facility] Role Store Team Member Store Team Member Referral Reason COPD Comments Is patient being transitioned from [facility] to Complex Case Management? No Reason for Visit * Reason Onset Date Comments Appointment 05/27/2023 Encounter Details Date Type Department Care Team (Latest Contact Info) Description 05/27/2023 12:00 PM EDT Scheduled Telephone [facility] [place], [facility] [address] [place] [address] Coordinator, [facility] [address] [place] [address] COPD, group C, by GOLD 2017 classification ([facility])* Allergies Active Allergy Reactions Criticality Noted Date [...] Pulmonary emphysema, unspecified emphysema type ([facility]) INHALE TWO PUFFS BY MOUTH EVERY [...] C, by GOLD 2017 classification ([facility]) Inhale 1 Ampule via nebulizer every [...] MG Oral Tablet (Lipitor)Indications :Atherosclerosis of aorta ([facility]) TAKE 1 TABLET BY MOUTH ONCE [...] LUNG, NOT ELSEWHERE CLASSIFIED 06/12/2002 09/14/2018 CHEST [id number] 04/09/200209/2018 ABN FD-INTRATHOR ORG NEC-akbar nodule 03/06/2002 [...] as of this encounter Miscellaneous Notes * Addendum Note - Lorna Sequeira LPN - 05/27/2023 8:25 AM EDTAddended by: LORNA SEQUEIRA on: 05/27/2023 08:25 AM Modules accepted: Orders * Telephone Encounter - Karan Quinn OSA - 05/27/2023 8:13 AM EDT [facility] Engagement Attempt Engagement: Engagement Attempt 1: Unable to contact Engagement Attempt 2: Contacted - Declined home-based services Declined Reason Patient declined program enrollment Home Information: No data was found Advance Care Planning (ACP): No data was found Has Living Will or Advance Directive: No data was found Anticipated Sub-Program: Focused Care Management (3-9 months) Confirmation of Sub-Program Type (by care steamer gum candy): No data was found Handoff Information: Current care team notified via: No data was found Current telemonitoring equipment: No data was found documented in this encounter Plan of Treatment Upcoming Encounters Date Type Department Care Team (Late st Contact Info) Description 05/27/2023 3:20 PM EDT Office Visit [place] [address] [place] [facility] [place] [phone] JuneAjit MD [address] [place], [place] [phone] 06/20/2023 8:00 AM EDT Office Visit [place] [address] [place] [facility] [place] [phone] Ajit Moreno MD [address] [place] [address] 06/20/2023 4:30 PM EDT Imaging Radiology [facility] [address] [address] 07/05/2023 1:00 PM EDT Office Visit [place] [address] [place] [facility] [place] [phone] Ajit Moreno MD [address] [place] [facility] [place] [address] Scheduled Procedures Name Priority Associated Diagnoses Date/Ti me COLONOSCOPY FLEXIBLE PROXIMAL DIAGNOSTIC Recall History of colon polyps Scheduled Referrals Name Type Priority Associated Diagnoses Orde r Schedule POPULATION HEALTH REFERRAL OP Referral Within 10 days (routine) COPD, group C, by GOLD 2017 classification (HCC) Ordered: 05/27/2023 Health Maintenance Due Date Last Done Comments DISCUSS TOBACCO CESSATION (REFER TO SMARTSET #5703) 1955 Pneumococcal Vaccine: 65+ Years (1 of [...] D LEVEL ONCE IN A LIFETIME-USE SMARTSET# [id number] Completed 06/16/2021, 05/03/2014 GARDASIL-HPV IMMUNIZATION SERIES Aged [...] C, by GOLD 2017 classification (HCC)- Primary documented in this encounter Advance Directives [...] 9:12 AM 05/09/2003 10:12 AM Care Teams Accounting Systems Analyst Relationship Specialty Start Date End Date June, Ajit Sylvester MD [address] [place] [address] PCP - General Family Medicine 03/11/22 documented as of this encounter
--- OUTSIDE RECORDS SUMMARY | 2023-06-13 20:30 | External Medical Summary | Summary of Care ---
Author Name Unknown Organization [facility] Address [address] [place] [address] Phone [phone] Care Team Providers Care Auto Body Painter Name Role Phone Ajit Moreno MD Primary Care Provider [phone] Encounter Details Date Type Department Care Team (Late st Contact Info) Description 05/25/2023 12:30 PM EDT Home Visit Care Coordination and Integration [address] [place], [place] [phone] Yesica Flores [facility] Health Africana Studies Professor [address] [place], [place] [id number] Allergies Active Allergy Reactions Criticality Noted Date Comments Fluticasone High 02/27/2020 Other reaction(s): lightheadedness and nausea Umeclidinium High 02/27/2020 Other reaction(s): lightheadedness and nausea Vilanterol High 02/27/2020 Other reaction(s): lightheadedness and nausea documented as of this encounter (statuses as of 05/25/2023) Medications Medication Sig Dispensed Refills Start Date [...] Pulmonary emphysema, unspecified emphysema type ([facility]) [...] as of this encounter (statuses as of 05/25/2023) Active Problems Problem Noted Date Diagnosed Date [...] as of this encounter (statuses as of 05/25/2023) Resolved Problems Problem Noted Date Diagnosed Date [...] LUNG, NOT ELSEWHERE CLASSIFIED 06/12/2002 09/14/2018 CHEST [id number] 04/09/200209/2018 ABN FD-INTRATHOR ORG NEC-akbar nodule 03/06/2002 [...] as of this encounter (statuses as of 05/25/2023) Immunizations Name Administration Dates Next Due COVID-19 mRNA, LNP-s, No Pre serve, 2-Dose Series ([employer]) 05/22/2020,05/01/2020 Seasonal Influenza, PF, 6 M & above, IM , (FluLaval or Fluzone) 10/26/2019,12/22/2018,12/28/2017 Seasonal Influenza, Quadriva lent Hd (Fluzone Hd) 01/08/2022 documented as of this encounter Social History Tobacco Use Types Packs/Day Years Used Date Smoking Tobacco: Every Day Cigarettes 0.5 45.1 Started: 03/19/2003 Passive Smoke Exposure: Past Smokeless Tobacco: Never Comments:began at age 8, [address] tried to quit 2004, currently one cigarette a day Alcohol Use [...] Progress Notes * Yesica Flores [facility] Studies Professor - 05/25/2023 3:35 PM EDT Telemedicine visit: No [facility] Africana Studies Professor (EDD) documentation: CHW picked up the electronic monitoring device from pt. To return to company. documented in this encounter Plan of Treatment Upcoming Encounters Date Type Department Care Team (Late st Contact Info) Description 05/27/2023 3:20 PM EDT Office Visit [place] [address] [facility] [phone] JuneAjit MD [address] [facility] [address] 06/20/2023 8:00 AM EDT Office Visit [place] [address] [facility] [address] Ajit Moreno MD [address] [facility] [place] [address] 06/20/2023 4:30 PM EDT Imaging Radiology [address], [address] [place] [address] 07/05/2023 1:00 PM EDT Office Visit [facility] [address] [place] [address] Ajit Moreno MD [address] [place] [address] Scheduled Procedures Name Priority Associated Diagnoses Date/Ti [...] D LEVEL ONCE IN A LIFETIME-USE SMARTSET# [id number] Completed 06/16/2021, 05/03/2014 GARDASIL-HPV IMMUNIZATION SERIES Aged [...] 9:12 AM 05/09/2003 10:12 AM Care Teams Auto Body Painter Relationship Specialty Start Date End Date June, Ajit Sylvester MD [address] [place] [address] PCP - General Family Medicine 03/11/22 documented as of this encounter
--- OUTSIDE RECORDS SUMMARY | 2023-06-13 20:30 | External Medical Summary | Summary of Care ---
Author Name Unknown Organization [facility] Address [address] [place] [address] Phone [phone] Care Team Providers Care Veterinary Pathologist Name Role Phone Ajit Moreno MD Primary Care Provider [phone] Reason for Referral * Social Care (Within 10 days (routine)) - Authorized Specialty Diagnoses / Procedures Referred By Nena altman Referred To Contact Beading Installer Diagnoses COPD, group C, by GOLD 2017 classification ([facility]) Roshan Stevens [facility] [address] [facility] [place] [address] Referral ID Status Reason Start Date Expiration Date Visits Requested Visits Authorized [id number] Authorized Specialty Services Required 05/27/2023 999 999 Question Answer Referral Priority Within 10 days (routine) Where should this appointment be scheduled? [facility] Role Banquet Steward Banquet Steward Referral Reason COPD Comments Is patient being transitioned from [facility] to Complex Case Management? No Reason for Visit * Reason Onset Date Comments Appointment 05/27/2023 Encounter Details Date Type Department Care Team (Latest Contact Info) Description 05/27/2023 12:00 PM EDT Scheduled Telephone [facility] [place], [facility] [address] [place] [address] Coordinator, [facility] [address] [place] [address] COPD, group C, by GOLD 2017 classification ([facility])* Allergies Active Allergy Reactions Criticality Noted [...] Aerosol SolutionIndications: Pulmonary emphysema, unspecified emphysema type ([facility]) INHALE TWO PUFFS BY MOUTH EVERY [...] :COPD, group C, by GOLD 2017 classification ([facility]) Inhale 1 Ampule via nebulizer every [...] MG Oral Tablet (Lipitor)Indications :Atherosclerosis of aorta ([facility]) TAKE 1 TABLET BY MOUTH ONCE [...] LUNG, NOT ELSEWHERE CLASSIFIED 06/12/2002 09/14/2018 CHEST [id number] 04/09/200209/2018 ABN FD-INTRATHOR ORG NEC-akbar nodule 03/06/2002 [...] months) Confirmation of Sub-Program Type (by care medical director/head team physician): No data was found Handoff Information: Current care team notified via: No data was found Current telemonitoring equipment: No data was found documented in this encounter Plan of Treatment Upcoming Encounters Date Type Department Care Team (Late st Contact Info) Description 05/27/2023 3:20 PM EDT Office Visit [place] [address] [place] [facility] [phone] JuneAjit MD [address], [place] [phone] 06/20/2023 8:00 AM EDT Office Visit [place] [address] [place] [facility] [phone] Ajit Moreno MD [address] [place] [address] 06/20/2023 4:30 PM EDT Imaging Radiology [facility] [address] [address] 07/05/2023 1:00 PM EDT Office Visit [place] [address] [place] [facility] [phone] Ajit Moreno MD [address] [place] [facility] [address] Scheduled Procedures Name Priority Associated Diagnoses Date/Ti me COLONOSCOPY FLEXIBLE PROXIMAL DIAGNOSTIC Recall History of colon polyps Scheduled Referrals Name Type Priority Associated Diagnoses Orde r Schedule POPULATION HEALTH REFERRAL OP Referral Within 10 days (routine) COPD, group C, by GOLD 2017 classification (HCC) Ordered: 05/27/2023 Health Maintenance Due Date Last Done Comments DISCUSS TOBACCO CESSATION (REFER TO SMARTSET #8989) 1955 Pneumococcal Vaccine: 65+ Years (1 of [...] D LEVEL ONCE IN A LIFETIME-USE SMARTSET# 63676 Completed 06/16/2021, 05/03/2014 GARDASIL-HPV IMMUNIZATION SERIES Aged [...] 9:12 AM 05/09/2003 10:12 AM Care Teams Veterinary Pathologist Relationship Specialty Start Date End Date June, Ajit Sylvester MD [address] [place] [address] PCP - General Family Medicine 03/11/22 documented as of this encounter
--- OUTSIDE RECORDS SUMMARY | 2023-06-13 20:30 | External Medical Summary | Summary of Care ---
Author Name Unknown Organization [facility] Address [address] [place] [address] Phone [phone] Care Team Providers Care Public Works Inspector Name Role Phone Ajit Moreno MD Primary Care Provider [phone] Reason for Visit * Reason Onset Date Comments Hospital Follow-Up Pt states delmar t he is here for a ER follow up for breathing issues Hospital Follow-Up 05/27/2023 Encounter Details Date Type Department Care Team (Latest Contact Info) Description 05/27/2023 3:20 PM EDT Office Visit [facility] [address] [place] [address] Ajit Moreno MD [address] [place] [address] Hospital discharge follow-up*; Mood swings; Bilateral lower extremity edema; COPD, group C, by GOLD 2017 classification ([facility]); Severe obesity (BMI 35.0-39.9) with comorbidity ([facility]) Allergies Active Allergy Reactions Criticality Noted Date Comments Fluticasone High 02/27/2020 Other reaction(s): lightheadedness and nausea Umeclidinium High 02/27/2020 Other reaction(s): lightheadedness and nausea Vilanterol High 02/27/2020 Other reaction(s): lightheadedness and nausea documented as of this encounter (statuses as of 05/27/2023) Medications Medication Sig Dispensed Refills Start Date End Date Status Respiratory Therapy Supplies (NEBULIZER/TUBING/ MOUTHPIECE) KIT Use as directed 1 Kit 5 07/07/19 19 Active Clobetasol Propionate 0.05 % External Ointment (Temovate)Indicati ons:Stasis dermatitis of both legs Apply 2x daily to rash on legs until resolved, then as needed when flaring 60 g 0 08/28/19 22 Active Naproxen 500 MG Oral Tablet (Naprosyn)Indicati ons:Hip pain, left Take 1 Tablet by mouth 2 times a day as needed for Pain. With food 40 Tablet 1 03/10/19 23 Active Meclizine HCl 12.5 MG Oral Tablet (Antivert)Indicati ons:Dizziness TAKE ONE TABLET BY MOUTH THREE TIMES DAILY NEEDED for dizziness 30 Tablet 2 12/14/19 23 Active Aspirin 81 MG Oral Tablet Chewable (Aspirin 81) Take 1 Tablet by mouth in the morning. 0 Active Albuterol Sulfate HFA 108 (90 Base) MCG/ACT Inhalation Aerosol SolutionIndication s:Pulmonary emphysema, unspecified emphysema type ([facility]) INHALE TWO PUFFS BY MOUTH EVERY 4 HOURS NEEDED FOR SHORTNESS OF BREATH or wheezing 25.5 g 1 03/21/19 24 Active buPROPion HCl ER (SR) 150 MG Oral Tablet Extended Release 12 Hour (Wellbutrin SR)Indications:Adj ustment disorder with depressed mood TAKE ONE TABLET BY MOUTH IN THE MORNING AND ONE BEFORE BEDTIME 180 Tablet 3 03/21/19 24 Active Levalbuterol HCl 1.25 MG/3ML Inhalation Nebulization Solution (Xopenex)Indicatio ns:COPD, group C, by GOLD 2017 classification ([facility]) Inhale 1 Ampule via nebulizer every 4 hours as needed for Wheezing. 72 mL 3 03/21/19 24 Active Ondansetron HCl 8 MG Oral Tablet (Zofran)Indication s:Nausea without vomiting Take 1 Tablet by mouth every 8 hours as needed for Nausea. 20 Tablet 0 03/21/19 24 Active Pantoprazole Sodium 40 MG Oral Tablet Delayed Release (Protonix)Indicati ons:Gastroesophage al reflux disease with esophagitis, unspecified whether hemorrhage Take 1 Tablet by mouth in the morning and 1 Tablet before bedtime. 180 Tablet 1 03/21/19 24 Active LORazepam 0.5 MG Oral Tablet (Ativan)Indication s:Anxiety Take 1 Tablet by mouth every 6 hours as needed for Agitation. 20 Tablet 0 03/21/19 24 Active Triamcinolone Acetonide 0.1 % External Ointment (Aristocort)Indica tions:Stasis dermatitis of both legs Apply 2x daily to rash on lower legs when flaring (see printed checkout sheet) 80 g 0 04/12/19 24 Active Atorvastatin Calcium 80 MG Oral Tablet (Lipitor)Indicatio ns:Atherosclerosis of aorta (HCC) TAKE 1 TABLET BY MOUTH ONCE DAILY 90 Tablet 3 04/14/19 24 Active Pregabalin 100 MG Oral Capsule (Lyrica)Indication s:Chronic pain syndrome Take 1 Capsule by mouth in the morning and 1 Capsule before bedtime. 60 Capsule 0 05/02/19 24 Active Escitalopram Oxalate 10 MG Oral Tablet (Lexapro)Indicatio ns:Mood swings Take 1 Tablet by mouth in the morning. 90 Tablet 3 05/27/19 24 Active Furosemide 40 MG Oral Tablet (Lasix)Indications :Bilateral lower extremity edema Take 1 Tablet by mouth in the morning. for fluid accumulation or weight gain. 20 Tablet 0 05/27/19 24 Active Trelegy Ellipta 200-62.5-25 MCG/ACT Aerosol Powder Breath Activated (Fluticasone-Umecl idinium-Vilanterol )Indications:COPD, group C, by GOLD 2017 classification ([facility]) Inhale 1 Puff by mouth in the morning. 60 Blister Dosing Unit 11 05/27/19 24 Active predniSONE 20 MG Oral Tablet (Deltasone)Indicat ions:COPD, group C, by GOLD 2017 classification ([facility]) Take 2 Tablets by mouth in the morning for 5 days. COPD rescue.. 10 Tablet 3 05/27/19 24 024 Active Azithromycin 250 MG Oral Tablet (Zithromax)Indicat ions:COPD, group C, by GOLD 2017 classification ([facility]) Take 2 tabs by mouth on the first day, then 1 tab daily on days two through five. COPD Rescue. 6 Tablet 3 05/27/19 24 024 Active Docusate Sodium 50 MG Oral Capsule Take 1 Capsule by mouth 2 times a day as needed for Constipation. 0 024 Discontinued(Mo dication List Clean Up) Cyanocobalamin 1000 MCG Oral Tablet (Cyanocobalamin) Take 1 Tablet by mouth in the morning. 0 024 Discontinued(Me dication List Clean Up) Sucralfate 1 GM/10ML Oral Suspension (Carafate) Take 10 mL by mouth in the morning and 10 mL at noon and 10 mL in the evening and 10 mL before bedtime. For 12 days. 0 024 Discontinued(Me dication List Clean Up) Trelegy Ellipta 100-62.5-25 MCG/ACT Aerosol Powder Breath Activated (Fluticasone-Umecl idinium-Vilanterol ) USE 1 PUFF INHALED DAILY 60 Each 6 04/20/19 24 024 Discontinued Furosemide 40 MG Oral Tablet (Lasix)Indications :Bilateral lower extremity edema Take 1 Tablet by mouth in the morning. for fluid accumulation or weight gain. 5 Tablet 0 04/25/19 24 024 Discontinued(Re fill) documented as of this [...] LUNG, NOT ELSEWHERE CLASSIFIED 06/12/2002 09/14/2018 CHEST [id number] 04/09/200209/2018 ABN FD-INTRATHOR ORG NEC-akbar nodule 03/06/2002 [...] mRNA, LNP-s, No Pre serve, 2-Dose Series (SDNsquare) 05/22/2020,05/01/2020 Seasonal Influenza, PF, 6 M & [...] Sign Reading Time Taken Comments Blood Pressure 124/82 05/27/2023 3:24 PM EDT Pulse 97 05/27/2023 3:24 PM EDT Temperature 36.9 C (98.4 F) 05/27/2023 3:24 PM ED T Respiratory Rate 18 05/27/2023 3:24 PM EDT Oxygen Saturation 95% 05/27/2023 3:24 PM EDT Inhaled Oxygen Concentration - - Weight 99.6 kg (219 lb 8 oz) 05/27/2023 3:24 PM EDT Height 167.6 cm (5' 6") 05/27/2023 3:24 PM EDT Body Mass Index 35.43 05/27/2023 3:24 PM EDT documented in this encounter Patient Instructions * Patient Instructions* Ajit Moreno MD - 05/27/2023 3:52 PM EDT STOP WELLBUTRIN ON 08/08/2023. documented in this encounter Progress Notes * Ajit Moreno MD - 05/27/2023 3:38 PM EDT SUBJECTIVE: Florentin Franks is a 67 year old male. Chief Complaint Patient presents with Hospital Follow-Up Pt states that he is here for a ER follow up for breathing issues Hospital Follow-Up Recent Admission: Patient was recently admitted to [facility]. The date of discharge was 05/19/2022. Discharge report received and reviewed. HPI: Patient presented to [facility] due to 2 weeks of intermittent chest pain and worsening shortness of breath. He was admitted after not seeing improvement in symptoms after multiple nebulizers in the ED. he was treated for COPD exacerbation with doxycycline and steroids. CT angiogram ruled out pulmonary embolism. Patient does have a history of chronic diastolic heart failure, however, he was not showing evidence of fluid overload. Patient Active Problem List Diagnosis Code Hiatal hernia K44.9 Gastroesophageal reflux disease with esophagitis K21.00 Obesity, Class I, BMI 30.0-34.9 (see actual BMI) E66.9 Tobacco use disorder F17.200 Obstructive sleep apnea G47.33 Controlled substance agreement signed Z79.899 Atherosclerosis of aorta ([facility]) I70.0 COPD, group C, by GOLD 2017 classification ([facility]) J44.9 Chronic pain syndrome G89.4 Pulmonary emphysema ([facility]) J43.9 Senile osteoporosis M81.0 Dyslipidemia, goal LDL below 70 E78.5 Adjustment disorder with depressed mood F43.21 Personal history of other venous thrombosis and embolism Z86.718 Food insecurity Z59.41 Current Outpatient Medications Medication Sig Dispense Refill Respiratory Therapy Supplies (NEBULIZER/TUBING/MOUTHPIECE) KIT Use as directed 1 Kit 5 Clobetasol Propionate 0.05 % External Ointment (Temovate) Apply 2x daily to rash on legs until resolved, then as needed when flaring 60 g 0 Naproxen 500 MG Oral Tablet (Naprosyn) Take 1 Tablet by mouth 2 times a day as needed for Pain. With food 40 Tablet 1 Meclizine HCl 12.5 MG Oral Tablet (Antivert) TAKE ONE TABLET BY MOUTH THREE TIMES DAILY NEEDED for dizziness 30 Tablet 2 Aspirin 81 MG Oral Tablet Chewable (Aspirin 81) Take 1 Tablet by mouth in the morning. Albuterol Sulfate HFA 108 (90 Base) MCG/ACT Inhalation Aerosol Solution INHALE TWO PUFFS BY MOUTH EVERY 4 HOURS NEEDED FOR SHORTNESS OF BREATH or wheezing 25.5 g 1 buPROPion HCl ER (SR) 150 MG Oral Tablet Extended Release 12 Hour (Wellbutrin SR) TAKE ONE TABLET BY MOUTH IN THE MORNING AND ONE BEFORE BEDTIME 180 Tablet 3 Levalbuterol HCl 1.25 MG/3ML Inhalation Nebulization Solution (Xopenex) Inhale 1 Ampule via nebulizer every 4 hours as needed for Wheezing. 72 mL 3 Ondansetron HCl 8 MG Oral Tablet (Zofran) Take 1 Tablet by mouth every 8 hours as needed for Nausea. 20 Tablet 0 Pantoprazole Sodium 40 MG Oral Tablet Delayed Release (Protonix) Take 1 Tablet by mouth in the morning and 1 Tablet before bedtime. 180 Tablet 1 LORazepam 0.5 MG Oral Tablet (Ativan) Take 1 Tablet by mouth every 6 hours as needed for Agitation.20 Tablet 0 Triamcinolone Acetonide 0.1 % External Ointment (Aristocort) Apply 2x daily to rash on lower legs when flaring (see printed checkout sheet) 80 g 0 Atorvastatin Calcium 80 MG Oral Tablet (Lipitor) TAKE 1 TABLET BY MOUTH ONCE DAILY 90 Tablet 3 Trelegy Ellipta 100-62.5-25 MCG/ACT Aerosol Powder Breath Activated (Nomydsifwoq-Gmguelubwpvr-Yhnzdplzxa) USE 1 PUFF INHALED DAILY 60 Each 6 Furosemide 40 MG Oral Tablet (Lasix) Take 1 Tablet by mouth in the morning. for fluid accumulation or weight gain. 5 Tablet 0 Pregabalin 100 MG Oral Capsule (Lyrica) Take 1 Capsule by mouth in the morning and 1 Capsule beforebedtime. 60 Capsule 0 No current facility-administered medications for this visit. Current and discharge medications have been reconciled. Review of patient's allergies indicates: Allergen Reactions Fluticasone Other reaction(s): lightheadedness and nausea Umeclidinium Other reaction(s): lightheadedness and nausea Vilanterol Other reaction(s): lightheadedness and nausea OBJECTIVE: BP 124/82 | Pulse 97 | Temp 36.9 C (98.4 F) (Temporal Artery) | Resp 18 | Ht 1.676 m (5' 6") | Wt 99.6 kg (219 lb 8 oz) | SpO2 95% | BMI 35.43 kg/m | BSA 2.15 m REVIEW OF SYSTEMS: PHYSICAL EXAM: BP 124/82 | Pulse 97 | Temp 36.9 C (98.4 F) (Temporal Artery) | Resp 18 | Ht 1.676 m (5' 6") | Wt 99.6 kg (219 lb 8 oz) | SpO2 95% | BMI 35.43 kg/m | BSA 2.15 m ASSESSMENT: 1. Mood swings Significant mood swings. Not completely controlled on Wellbutrin. Start Lexapro 10 mg daily. Plan to discontinue Wellbutrin on August 07 as long as he was tolerating Lexapro. - Escitalopram Oxalate 10 MG Oral Tablet (Lexapro); Take 1 Tablet by mouth in the morning. Dispense: 90 Tablet; Refill: 3 2. Bilateral lower extremity edema Appears to be largely euvolemic on exam today, however, complains of significant bilateral lower extremity edema especially in the evening. He does have diastolic heart failure. P.r.n. Lasix as belowfor swelling. - Furosemide 40 MG Oral Tablet (Lasix); Take 1 Tablet by mouth in the morning. for fluid accumulation or weight gain. Dispense: 20 Tablet; Refill: 0 3. COPD, group C, by GOLD 2017 classification ([facility]) With recurrent exacerbations. Increase Trelegy Ellipta 200-62.525 mcg as below. Rescue kit of prednisone and azithromycin sent to the pharmacy. Discussed that respiratory symptoms will only worsen if he continues to smoke. He was pre contemplative. Currently smoking half a pack per day. - Trelegy Ellipta 200-62.5-25 MCG/ACT Aerosol Powder Breath Activated (Ykagofoufgq-Nuybvwbqgkvi-Rplnispyqb); Inhale 1 Puff by mouth in the morning. Dispense: 60 Blister Dosing Unit; Refill: 11 - predniSONE 20 MG Oral Tablet (Deltasone); Take 2 Tablets by mouth in the morning for 5 days. COPDrescue.. Dispense: 10 Tablet; Refill: 3 - Azithromycin 250 MG Oral Tablet (Zithromax); Take 2 tabs by mouth on the first day, then 1 tab daily on days two through five. COPD Rescue. Dispense: 6 Tablet; Refill: 3 4. Severe obesity (BMI 35.0-39.9) with comorbidity ([facility]) BMI 35.43. 5. Hospital discharge follow-up - DISCH MED RECON CUR MED LIS I spent a total of 30-39 minutes (exact time 38 mins) minutes on the date of service in preparation, delivery, and documentation of the care provided to Florentin Franks excluding any time spent in performance of separately billed services. Ajit Moreno MD documented in this encounter Nursing Notes * Isabelle Klein LPN - 05/27/2023 3:24 PM EDT Florentin Franks is a 67 year old male who presents today for Chief Complaint Patient presents with Hospital Follow-Up Pt states that he is here for a ER follow up for breathing issues documented in this encounter Plan of Treatment Upcoming Encounters Date Type Department Care Team (Late st Contact Info) Description 06/20/2023 8:00 AM EDT Office [facility] [address] [facility] [phone] JuneAjit MD [address] [facility] [place] [id number] 06/20/2023 4:30 PM EDT Imaging Radiology [address], [address] [place] [address] 07/05/2023 1:00 PM EDT Office Visit [facility] [address] [place] [facility] [place] [phone] JuneAjit MD [address], [place] [phone] Scheduled Procedures Name Priority Associated Diagnoses Date/Ti [...] D LEVEL ONCE IN A LIFETIME-USE SMARTSET# [id number] Completed 06/16/2021, 05/03/2014 GARDASIL-HPV IMMUNIZATION SERIES Aged [...] as of this encounter Visit Diagnoses Diagnosis Hospital discharge follow-up- Primary Other follow-up examination Mood swings Other specified episodic mood disorder Bilateral lower extremity edema Edema COPD, group C, by GOLD 2017 classification (HCC) Severe obesity (BMI 35.0-39.9) with comorbidity (HCC) Morbid obesity documented in this encounter Advance Directives Latest [...] 9:12 AM 05/09/2003 10:12 AM Care Teams Public Works Inspector Relationship Specialty Start Date End Date June, Ajit Sylvester MD [address] [place] [address] PCP - General Family Medicine 03/11/22 documented as of this encounter
--- OUTSIDE RECORDS SUMMARY | 2023-06-13 20:30 | External Medical Summary | Summary of Care ---
Author Name Unknown Organization [facility] Address [address] [place] [address] Phone [phone] Care Team Providers Care Nurse Staff Name Role Phone Ajit Moreno MD Primary Care Provider [phone] Reason for Referral * Social Care (Within 10 days (routine)) - Authorized Specialty Diagnoses / Procedures Referred By Nena altman Referred To Contact Automation Control Technician Diagnoses COPD, group C, by GOLD 2017 classification ([facility]) Roshan Stevens DO [address] [facility] [place] [address] Referral ID Status Reason Start Date Expiration Date Visits Requested Visits Authorized [id number] Authorized Specialty Services Required 05/27/2023 999 999 Question Answer Referral Priority Within 10 days (routine) Where should this appointment be scheduled? [facility] Role Investment Associate Investment Associate Referral Reason COPD Comments Is patient being transitioned [facility] to Complex [facility] Management? No Reason for Visit * Reason Onset Date Comments Appointment 05/27/2023 Encounter Details Date Type Department Care Team (Latest Contact Info) Description 05/27/2023 12:00 PM EDT [facility] [place], [facility] [address] [place] [address] Coordinator, [facility] [address] [place] [address] COPD, group C, by GOLD 2017 classification ([facility])* Allergies Active Allergy Reactions Criticality Noted Date [...] Pulmonary emphysema, unspecified emphysema type ([facility] MG Oral Tablet (Lipitor)Indications :Atherosclerosis of aorta ([facility]) TAKE 1 TABLET BY MOUTH ONCE DAILY [...] LUNG, NOT ELSEWHERE CLASSIFIED 06/12/2002 09/14/2018 CHEST [id number] 04/09/200209/2018 ABN FD-INTRATHOR ORG NEC-akbar nodule 03/06/2002 [...] months) Confirmation of Sub-Program Type (by care seafood team member): No data was found Handoff Information: Current care team notified via: No data was found Current telemonitoring equipment: No data was found documented in this encounter Plan of Treatment Upcoming Encounters Date Type Department Care Team (Late st Contact Info) Description 05/27/2023 3:20 PM EDT Office Visit [place] [address] [facility] [place] [phone] JuneAjit MD [address], [place] [phone] 06/20/2023 8:00 AM EDT Office Visit [place] [address] [facility] [place] [phone] Ajit Moreno MD [address] [place] [address] 06/20/2023 4:30 PM EDT Imaging Radiology [facility] [address] [address] 07/05/2023 1:00 PM EDT Office Visit [place] [address] [place] [facility] [place] [phone] Ajit Moreno MD [address] [place] [facility] [place] [address] Scheduled Procedures Name Priority Associated Diagnoses Date/Ti me COLONOSCOPY FLEXIBLE PROXIMAL DIAGNOSTIC Recall History of colon polyps Scheduled Referrals Name Type Priority Associated Diagnoses Orde r Schedule POPULATION HEALTH REFERRAL OP Referral Within 10 days (routine) COPD, group C, by GOLD 2017 classification (HCC) Ordered: 05/27/2023 Health Maintenance Due Date Last Done Comments DISCUSS TOBACCO CESSATION (REFER TO SMARTSET #6964) 1955 Pneumococcal Vaccine: 65+ Years (1 of [...] D LEVEL ONCE IN A LIFETIME-USE SMARTSET# [id number] Completed 06/16/2021, 05/03/2014 GARDASIL-HPV IMMUNIZATION SERIES Aged [...] 9:12 AM 05/09/2003 10:12 AM Care Teams Nurse Staff Relationship Specialty Start Date End Date June, Ajit Sylvester MD [address] [place] [address] PCP - General Family Medicine 03/11/22 documented as of this encounter
--- OUTSIDE RECORDS SUMMARY | 2023-06-13 20:31 | External Medical Summary | Summary of Care ---
Author Name Unknown Organization [facility] Address [address] [place] [address] Phone [phone] Care Team Providers Care Crnp Name Role Phone Ajit Moreno MD Primary Care Provider [phone] Encounter Details Date Type Department Care Team (Late st Contact Info) Description 05/23/2023 1:00 PM EDT Home Visit Care Coordination and Integration [address], [place] [id number] Yesica Flores [facility] Director Of Distribution [address], [place] [id number] Allergies Active Allergy Reactions Criticality Noted Date Comments Fluticasone High 02/27/2020 Other reaction(s): lightheadedness and nausea Umeclidinium High 02/27/2020 Other reaction(s): lightheadedness and nausea Vilanterol High 02/27/2020 Other reaction(s): lightheadedness and nausea documented as of this encounter (statuses as of 05/23/2023) Medications Medication Sig Dispensed Refills Start Date [...] Aerosol SolutionIndications: Pulmonary emphysema, unspecified emphysema type ([facility]) INHALE TWO PUFFS BY MOUTH [...] :COPD, group C, by GOLD 2017 classification ([facility]) Inhale 1 Ampule via nebulizer [...] as of this encounter (statuses as of 05/23/2023) Active Problems Problem Noted Date Diagnosed Date Food insecurity 05/16/2023 Overview: Per [facility] Protocol Embolism and thrombosis of unspecified parts of [...] as of this encounter (statuses as of 05/23/2023) Resolved Problems Problem Noted Date Diagnosed Date [...] LUNG, NOT ELSEWHERE CLASSIFIED 06/12/2002 09/14/2018 CHEST [id number] 04/09/200209/2018 ABN FD-INTRATHOR ORG NEC-akbar nodule 03/06/2002 [...] as of this encounter (statuses as of 05/23/2023) Immunizations Name Administration Dates Next Due COVID-19 mRNA, LNP-s, No Pre serve, 2-Dose Series ([facility]) 05/22/2020,05/01/2020 Seasonal Influenza, PF, 6 M & [...] Progress Notes * Yesica Flores [facility] Director Of Distribution - 05/23/2023 8:24 PM EDT Telemedicine visit: No [facility] Director Of Distribution (EDD) documentation: CHW visit per NELLY Biswas CHW was scheduled to pear picker the electronic health monitoring equipment this date, however, the pt.Didn't know where it was located and his spouse was not at home. CHW will attempt to pear picker another day. documented in this encounter Plan of Treatment Upcoming Encounters Date Type Department Care Team (Late st Contact Info) Description 05/27/2023 3:20 PM EDT Office Visit [place] [address] [place] [facility] [place] [id number] Ajit Moreno MD [address] [place] [facility] [place] [address] 06/20/2023 8:00 AM EDT [facility] [id number] Ajit Moreno MD [address] [place] [facility] [place] [address] 06/20/2023 4:30 PM EDT Imaging Radiology [facility], [address] [place] [address] 07/05/2023 1:00 PM EDT Office Visit [facility] [place] [address] [place] [address] June, Ajit Sylvester MD [address] [facility] [address] Scheduled Procedures Name Priority Associated Diagnoses Date/Ti me COLONOSCOPY FLEXIBLE PROXIMAL DIAGNOSTIC Recall History of colon polyps Health Maintenance Due Date Last Done Comments DISCUSS TOBACCO CESSATION (REFER TO SMARTSET #5760) 1955 Pneumococcal Vaccine: 65+ Years (1 of [...] D LEVEL ONCE IN A LIFETIME-USE SMARTSET# 35890 Completed 06/16/2021, 05/03/2014 GARDASIL-HPV IMMUNIZATION SERIES Aged [...] 9:12 AM 05/09/2003 10:12 AM Care Teams Crnp Relationship Specialty Start Date End Date June, Ajit Sylvester MD [address] [place] [facility] [place] [address] PCP - General Family Medicine 03/11/22 documented as of this encounter
[2023-06-13] MEDS: buPROPion SR 150 MG TABCR PO SCH (20:47)
[2023-06-13] MEDS: IBUPROFEN 800 MG TAB PO SCH (20:48)
[2023-06-13] MEDS: PANTOprazole 40 MG TAB PO SCH (20:48)
[2023-06-13] MEDS: diazePAM 2 MG TABLET PO SCH (20:48)
[2023-06-13] MEDS: PREGABALIN 100 MG CAP PO SCH (20:49)
[2023-06-14] MEDS: oxyCODONE HCL IR 5 MG TAB (IMMEDIATE RELEASE) PO PRN (00:28)
[2023-06-14] MEDS: ENOXAPARIN INJ 40 MG/0.4 ML SYR SQ SCH (06:11)
--- NOTE | 2023-06-14 06:13 | Electrocardiogram Report ---
Test Reason : Blood Pressure : / mmHG Vent. Rate : 078 BPM Atrial Rate : 078 BPM P-R Int : 174 ms QRS Dur : 084 ms QT Int : 400 ms P-R-T Axes : 047 035 035 degrees QTc Int : 456 ms Normal sinus rhythm Normal ECG When compared with ECG of 17-MAY-2023 20:31, No significant change was found Confirmed by David Mehta ([id number]) on 06/14/2023 6:13:09 AM Referred By: REFERRED SELF Confirmed By:David Mehta
[2023-06-14 07:10] LABS: Hematocrit (blood only) 37.7 % (42.0-52.0); Hemoglobin 12.5 g/dl (14.0-18.0); Mean Corpuscular Hgb Conc 33.2 g/dL (32.0-36.0); Mean Corpuscular Volume 93.5 fL (80.0-100.0); Mean Platelet Volume 11.3 fL (9.4-12.4); Platelet Count 283 K/uL (130-400); RDW Coefficient of Variation 14.8 % (11.5-14.5); RDW Standard Deviation 51.1 fL (36.4-46.3); Red Blood Count 4.03 M/uL (4.70-6.10); White Blood Count 8.11 K/ul (4.8-10.8)
[2023-06-14 07:30] LABS: Albumin Level 3.2 gm/dl (3.4-5.0); BUN Creatinine Ratio 30.3 (10-20); Bilirubin Direct 0.1 mg/dl (0-0.2); Bilirubin,Total 0.7 mg/dl (0.2-1.0); Creatinine Clr Calc Pharmacy 113.9 ml/min; Est GFR (African American) 114.3 ml/min; Est GFR (Non-African American) 98.6 ml/min; Potassium 3.5 mmol/L (3.5-5.1); Total Protein 5.4 gm/dl (6.0-8.3)
[2023-06-14] MEDS: POTASSIUM CHLORIDE CRTAB 20 MEQ TABCR PO STA (08:32)
[2023-06-14] MEDS: ESCITALOPRAM OXALATE 10 MG TAB PO SCH (08:32)
[2023-06-14] MEDS: ASPIRIN 81 MG ECTAB PO SCH (08:32)
[2023-06-14] MEDS: ATORVASTATIN 40 MG TAB PO SCH (08:32)
[2023-06-14] MEDS: FLUTICASONE FUROATE 200MCG 14 PUFFS/INHALER INH SCH (08:33)
[2023-06-14] MEDS ORDERED: NON-FORMULARY MEDICATION (Fluticasone-Umeclidin-Vilanter [Trelegy Ellipta] 200-62.5-25 mcg INH SCH (09:00)
[2023-06-14] MEDS: DICLOFENAC SOD 1% GEL 100 GM TUBE EXT SCH (09:01)
[2023-06-14] MEDS: CYANOCOBALAMIN (B-12) 500 MCG TABLET PO SCH (09:01)
[2023-06-14] MEDS: UMECLIDINIUM/VILANTEROL 62.5/25MCG 7 PUFFS/INHALER INH SCH (10:15)
[2023-06-14] MEDS: KETOROLAC TROMETHAMINE 15 MG/ML VIAL IV ONE (12:11)
[2023-06-14] MEDS: LORazepam 0.5 MG TAB PO PRN (12:12)
--- NOTE | 2023-06-14 14:37 | Magnetic Resonance Report ---
CERVICAL SPINE MRI HISTORY: severe neck pain, restricted ROM, acute wo trauma TECHNIQUE: Multiplanar multisequence MRI of the cervical spine was performed without the use of contr ast. COMPARISON STUDY: Cervical spine CT 06/13/2023. FINDINGS: Suboptimal evaluation of the cervical spine due to motion artifact. However, no definite fr acture or subluxation. Prevertebral soft tissues and the C1-C2 interval are intact. Near nondiagnosti c evaluation of the axial sequences due to the motion artifact. The cervical spinal cord appears to b e normal in course, caliber, and signal intensity. Small amount of fluid within the right C2-C3 facet s with associated marrow edema. There is soft tissue edema surrounding the right C2-C3 facet and exte nding into the posterior soft tissues of the upper neck. This favors advanced degenerative change. [place] perimposed infection is considered less likely given the lack of erosive change. C2-C3: No significant central canal or neural foraminal narrowing. C3-C4: No significant central canal narrowing. Mild left-sided neural foraminal narrowing due to the uncovertebral and facet hypertrophy. C4-C5: No significant central canal narrowing. Mild bilateral neural foraminal narrowing due to the u ncovertebral and facet hypertrophy. C5-C6: No significant central canal narrowing. Mild right and moderate left neural foraminal narrowin g due to the uncovertebral and facet hypertrophy. C6-C7: No significant central canal or neural foraminal narrowing. C7-T1: No significant central canal or neural foraminal narrowing. IMPRESSION: 1. Suboptimal evaluation of the cervical spine due to the significant motion artifact. 2. Small amount of fluid within the right C2-C3 facets with associated marrow edema. There is soft ti ssue edema surrounding the right C2-C3 facet and extending into the posterior soft tissues of the upp er neck. This favors advanced degenerative change. Superimposed infection is considered less likely g iven the lack of erosive change. 3. No fracture or subluxation. 4. No significant central canal narrowing ACT 112: Negative or not required by law. Electronically signed by: Asim Peck M.D. 06/14/2023 2:36 PM
--- NOTE | 2023-06-14 14:58 | Hospitalist Progress Note ---
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 Patient denies chest pain or difficulty breathing or numbness or tingling or fever. The pain started during playing a game on his iPad for half an hour and gradually worsened. He denies trauma or heavy lifting. He is being managed for the following: Acute neck pain Patient coming in with right-sided neck pain,Right-sided Neck paraspinal muscle tenderness on exam. CT C-spine and MRI C-spine with degenerative disc disease on the right. Continue with pain management [Diazepam, Motrin, Tylenol, Oxycodone], patient with minimal pain relief, pain management consult. Follow clinically. Elevated troponin I level: Slight elevation in trop to 25 with the repeat trending back down to 18 which is within normal range. Doubt ACS. Cont to monitor on telemetry. COPD (chronic obstructive pulmonary disease): chronic, stable. Cont home inhalers. Thrombus of aorta: PMH, no clot on repeat CTA chest. pt has been taken off of eliquis in the past by his physician. Tobacco abuse: smoking cessation recommended, nicotine patch PRN Elevated transaminase level: mildly elevated, repeat in am. improving. follow DVT prophy: Lovenox Full Code Dispo-to home once neck pain has resolved. Admission and Anticipated Discharge Date Admission Date: June 13, 2023 Subjective Patient was seen and examined at bedside. Patient was lying in bed, on room air, scrolling through mobile device while lying down, NAD. Patient put down the mobile device on the bed during bedside exam, he complained of right-sided neck pain with no significant improvement since multiple pain meds since yesterday. Pain management consult placed. He denied any numbness or tingling or shortness of breath or chest pain. Reports eating ok. Physical Exam Physical Exam: GENERAL: Alert and oriented x3. on RA. Appear uncomfortable due to right neck pain. HEENT: No pallor, no icterus. Pupils equal, round and reactive to light. Oral mucosa moist. NECK: No JVD, no neck masses. Trachea midline. Pain ROM of neck. Right neck paraspinal tenderness noted. HEART: S1 and S2 heard. Regular rate and rhythm. No murmur, no gallop. RESPIRATORY SYSTEM: Normal AP diameter. No accessory muscle use. No wheezing, no crackles. ABDOMEN: Soft, bowel sounds present, nontender, no distention. CENTRAL NERVOUS SYSTEM: No facial droop. Speech is clear. Obeys simple commands. Moves extremities. EXTREMITIES: No edema, no erythema seen. Results & Data Results & Data Vital Signs (Past 12 Hours) Vital Signs Temp Pulse Pulse Resp BP Pulse Ox O2 Del Method 06/14/23 13:46 66 06/14/23 11:14 37.1 C 74 16 127/65 91 Room Air 06/14/23 10:40 Room Air 06/14/23 07:54 36.7 C 100 H 16 135/74 100 Nasal Cannula 06/14/23 03:42 36.5 C 64 16 99/62 L 92 Nasal Cannula O2 Flow Rate 06/14/23 13:46 06/14/23 11:14 06/14/23 10:40 06/14/23 07:54 2 06/14/23 03:42 2
--- NOTE | 2023-06-15 04:38 | Electrocardiogram Report ---
Test Reason : Blood Pressure : / mmHG Vent. Rate : 070 BPM Atrial Rate : 070 BPM P-R Int : 174 ms QRS Dur : 084 ms QT Int : 414 ms P-R-T Axes : 071 024 023 degrees QTc Int : 447 ms Poor data quality, interpretation may be adversely affected Normal sinus rhythm Normal ECG When compared with ECG of 13-JUN-2023 10:45, No significant change was found Confirmed by David Mehta ([id number]) on 06/15/2023 4:38:11 AM Referred By: REFERRED SELF Confirmed By:David Mehat
[2023-06-15 07:13] LABS: Albumin Globulin Ratio 1.3 (0.9-2); Albumin Level 3.1 gm/dl (3.4-5.0); BUN Creatinine Ratio 30.9 (10-20); Bilirubin,Total 0.4 mg/dl (0.2-1.0); Calcium 7.1 mg/dl (8.6-10.3); Creatinine Clr Calc Pharmacy 111.4 ml/min; Est GFR (African American) 112.9 ml/min; Est GFR (Non-African American) 97.4 ml/min; Globulin 2.4 gm/dl (2.5-4.0); Magnesium 1.1 mg/dl (1.7-2.4); Phosphorus 2.7 mg/dl (2.5-4.9); Potassium 3.8 mmol/L (3.5-5.1); Total Protein 5.5 gm/dl (6.0-8.3)
[2023-06-15 07:16] LABS: Hematocrit (blood only) 38.2 % (42.0-52.0); Mean Corpuscular Hemoglobin 31.4 pg (25.0-34.0); Mean Corpuscular Volume 92.3 fL (80.0-100.0); Mean Platelet Volume 11.1 fL (9.4-12.4); Platelet Count 303 K/uL (130-400); RDW Coefficient of Variation 14.8 % (11.5-14.5); RDW Standard Deviation 50.9 fL (36.4-46.3); Red Blood Count 4.14 M/uL (4.70-6.10); White Blood Count 8.84 K/ul (4.8-10.8)
--- NOTE | 2023-06-15 09:14 | Pain Management Consultation ---
Date of Consultation June 15, 2023 Assessment & Plan (1) Acute neck pain: (2) Spasm of right trapezius muscle: (3) Neck muscle spasm: (4) Myofascial pain: Plan 1. Recommended TPI's into the area of concern. * The risks, benefits, and alternatives of the procedure were discussed in detail with the patient, and in full understanding of the procedure to be performed, the patient elects to proceed as discussed. TRIGGER POINT INJECTION Diagnosis: Myofascial Pain Injection Site: Right cervical paraspinal and trapezius Performed By: Jose Cooper PA-C Medications used: Ropivacaine 0.5% -7 mL Kenalog 40 mg/mL - 1 mL Toradol 30 mg/mL - 2 mL Prior to starting, the diagnosis and the procedure was reviewed with the patient in detail. Possible risks and complications including infection, bleeding, damage to surrounding structures and increased pain were discussed. Alternative therapies were also reviewed. All questions were answered and they agreed to proceed. Informed consent was obtained. Allergies and medication list was reviewed. The patient was placed in sitting position. Immediately prior to starting the procedure, a time out was conducted with the staff and the patient where the patient was identified, proposed procedure was verified, consent was reviewed and the proper site for the planned procedure was identified. Patient was not given any intravenous sedation and constant verbal contact was maintained throughout the procedure. On examination, no signs of skin breakdown or infection were noted at the injection site. The site was cleansed with ChloraPrep followed by alcohol. Sterile technique was used throughout the procedure. After identifying skeletal landmarks, the musculature as above was injected at 4 separate locations with approximately 2.5 mL at each site, from a solution containing 7 mL of 0.5% Ropivacaine MPF, 2 mL of 30 mg/mL Toradol, and 1 mL of 40 mg/mL Kenalog. Aspiration was negative. Hemostasis noted. Patient tolerated the procedure uneventfully without complications. Patient was observed for approximately 15 minutes and discharged home with standard discharge instructions. 2. Ordered K-pad heat to be applied to neck/shoulder region. 3. Do not soak the area for 48 hours. 4. Added baclofen for further muscle relaxant purposes. 5. Ordered soft c-collar. 6. May give consideration for adding IV or oral steroid course if not contraindicated. 7. Recommend PT/OT for mobilization. 8. Discussed with patient that after discharge, if he has return of symptoms, he can make an appointment to see us in the pain clinic office for further trigger point injections. 9. Will plan to follow peripherally to check on response to today's injections. History of Present Illness Reason for Consultation: acute right-sided neck pain Attending Physician: Enzo Smith MD History of Present Illness Patient is a 67-year-old male that presented to the [facility] ED on 06/13/2023 with acute right-sided neck region pain. He was apparently doing some fishing for couple days prior to that, but says that he was not doing any overly repetitive or strenuous activity while fishing. He notes that when he returned home and was sitting not doing anything is when he started to notice the pain, about. He had worsening pain throughout the evening and nighttime, and he had to have EMS bring him to the hospital. ED providers noted that the patient did appear to be in significant pain and his pain was reproducible with palpation. There was no report of focal neurologic deficits and no reported trauma. He did have some mild improvement while he was treated with pain medicine in the ED, but unfortunately he had a drop in his oxygen saturation, and thus his admission to further investigate this along with provide pain control interventions. Today, the patient states that he really has not had much improvement overall since his admission. He has been taking the ordered medications, which do help, but then he has significant return of severe symptoms prior to the next administration of the medicine. He localizes his pain to the right sided neck musculature and cervical paraspinals, as well as into the right trapezius region. 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 Case discussed with Dr. Jessie Singh. Home Medications Medication Instructions Recorded Confirmed Type pregabalin 100 mg capsule (Lyrica) 100 mg PO BID 10/16/17 06/13/23 History meclizine 12.5 mg tablet 12.5 mg PO TID PRN Dizziness 06/28/21 06/13/23 History prednisone 20 mg tablet 40 mg PO QAM PRN RESCUE KIT 04/05/22 06/13/23 History bupropion HCl 150 mg tablet,12 hr 150 mg PO BID 04/07/22 06/13/23 History sustained-release (Wellbutrin SR) ondansetron 8 mg disintegrating 8 mg PO Q8H PRN Nausea 04/07/22 06/13/23 History tablet clobetasol 0.05 % topical cream 1 applic topical BID PRN Rash 12/29/22 06/13/23 History levalbuterol HCl 1.25 mg/3 mL 1.25 mg inhalation Q4H PRN Wheezing 12/29/22 06/13/23 History solution for nebulization triamcinolone acetonide 0.1 % 1 applic topical BID PRN Rash 12/29/22 06/13/23 History topical cream cyanocobalamin (vitamin B-12) 1,000 mcg PO QAM 03/08/23 06/13/23 History 1,000 mcg tablet (Vitamin B-12) aspirin 81 mg tablet,delayed 81 mg PO QAM #30 tabs 03/11/23 06/13/23 Rx release atorvastatin 80 mg tablet (Lipitor) 80 mg PO DAILY #30 tabs 03/11/23 06/13/23 Rx pantoprazole 40 mg tablet,delayed 40 mg PO BID 30 days #60 tabs 04/06/23 06/13/23 Rx release (Protonix) albuterol sulfate 90 mcg/actuation 2 puff inhalation Q4H PRN 04/26/23 06/13/23 Rx aerosol inhaler Shortness Of Breath Or Wheezing #8.5 grams guaifenesin 600 mg tablet, 600 mg PO BID PRN congestion #60 04/26/23 06/13/23 Rx extended release 12 hr (Mucinex) tabs escitalopram oxalate 10 mg tablet 10 mg PO DAILY 06/13/23 06/13/23 History fluticasone fur. 200 mcg-umeclid 1 inh inhalation DAILY 06/13/23 06/13/23 History 62.5 mcg-vilant 25 mcg inhalat.powder (Trelegy Ellipta) Pain History Pain Location Full Body Front + Back: 2 1. 2. Patient History Medical History (Updated 06/15/23 @ 09:12 by Jose Cooper PA-C) Myofascial pain Neck muscle spasm Spasm of right trapezius muscle Acute respiratory failure with hypoxemia Chronic respiratory failure On oxygen at night in the past - but no longer needs per patient Hx of migraines Sleep apnea No device History of COVID-19 2020, moderate symptoms > resolved 2020, mild symptoms > resolved Post-nasal drip Chronic - stable HLD (hyperlipidemia) TAYLOR (obstructive sleep apnea) Cannot tolerate device Anxiety Pneumothorax Hx- complication from pain injection- resolved COPD, moderate Breathing stable Neuropathy GERD (gastroesophageal reflux disease) Well controlled and stable Histoplasmosis 2002- treated Diaphragmatic hernia Thoracic spinal stenosis Surgical History History of esophagogastroduodenoscopy (EGD) Hx of colonoscopy History of open reduction and internal fixation (ORIF) procedure right shoulder History of total replacement of left shoulder joint History of sinus surgery History of placement of chest tube History of hand surgery Left femoral shaft fracture Dutch placed H/O total hip arthroplasty left side H/O elbow surgery H/O exploratory thoracotomy "Left thoracotomy wedge biopsy of left upper lobe with excision of lesion or nodule & frozen section 2002" H/O hernia repair "[facility] incarcerated supraumbilical hernia repair open no mesh 02/17/01" Family History Father Heart disease Hypertension Brother Cancer Hypertension Stroke Heart disease Mother Cancer Other Leukemia No family history of bleeding disorder Non-Hodgkin lymphoma Denies family history of Hearing loss Asthma Social History Smoking Status: Current every day smoker Tobacco Type: Cigarettes Age Started Using Tobacco: 11; packs per day: 1; Cigarettes Per Day: 10 cigs /day; Second Hand Exposure: No; Do You Dip or Chew Tobacco: No; Hx Alcohol Use: No Hx Substance Use: No Preferred Language: Malay Communication Ability: Effective Spot Washer Required: No Beliefs That Will Affect Care: None marital status: Current Living Situation: Spouse current occupational status: unemployed Feels Safe at Home: Yes Safety Concerns: Feels Safe At This Time Assistive Devices: Glasses and Oxygen - at Night Physical Exam 2 Physical Exam: GENERAL: Speech and cognition is intact. Mood and affect is appropriate. In no acute distress, but patient does appear uncomfortable and clenches his right side neck with his right hand at times. HEAD: Normocephalic; atraumatic. NECK: Significantly diminished ROM with jolting type pain upon movement; trachea is midline; + exquisite TTP/spasm to right sided neck and cervical paraspinals and trapezius. NEURO: CN II-XII grossly intact with no focal deficits noted. SKIN: No lesions, erythema, or rashes noted. Exam significantly limited secondary to pain, apprehension, and guarding. Results (Pain Clinic) Diagnostic Review MRI Findings: CERVICAL SPINE MRI HISTORY: severe neck pain, restricted ROM, acute wo trauma TECHNIQUE: Multiplanar multisequence MRI of the cervical spine was performed without the use of contrast. COMPARISON STUDY: Cervical spine CT 06/13/2023. FINDINGS: Suboptimal evaluation of the cervical spine due to motion artifact. However, no definite fracture or subluxation. Prevertebral soft tissues and the C1-C2 interval are intact. Near nondiagnostic evaluation of the axial sequences due to the motion artifact. The cervical spinal cord appears to be normal in course, caliber, and signal intensity. Small amount of fluid within the right C2-C3 facets with associated marrow edema. There is soft tissue edema surrounding the right C2-C3 facet and extending into the posterior soft tissues of the upper neck. This favors advanced degenerative change. Superimposed infection is considered less likely given the lack of erosive change. C2-C3: No significant central canal or neural foraminal narrowing. C3-C4: No significant central canal narrowing. Mild left-sided neural foraminal narrowing due to the uncovertebral and facet hypertrophy. C4-C5: No significant central canal narrowing. Mild bilateral neural foraminal narrowing due to the uncovertebral and facet hypertrophy. C5-C6: No significant central canal narrowing. Mild right and moderate left neural foraminal narrowing due to the uncovertebral and facet hypertrophy. C6-C7: No significant central canal or neural foraminal narrowing. C7-T1: No significant central canal or neural foraminal narrowing. IMPRESSION: 1. Suboptimal evaluation of the cervical spine due to the significant motion artifact. 2. Small amount of fluid within the right C2-C3 facets with associated marrow edema. There is soft tissue edema surrounding the right C2-C3 facet and extending into the posterior soft tissues of the upper neck. This favors advanced degenerative change. Superimposed infection is considered less likely given the lack of erosive change. 3. No fracture or subluxation. 4. No significant central canal narrowing ACT 112: Negative or not required by law. Electronically signed by: Asim Peck M.D. 06/14/2023 2:36 PM Dictated: 06/14/23 1424 Transcribed: 06/14/[address] Findings: CT OF THE CERVICAL SPINE WITHOUT CONTRAST CLINICAL HISTORY: Severe neck pain. COMPARISON STUDY: Cervical spine CT April 17, 2023. TECHNIQUE: Helical axial images of the cervical spine were obtained without IV contrast. Sagittal and coronal reconstructions were viewed. Automated exposure control was utilized for the study. A dose lowering technique was utilized adhering to the principles of ALARA. FINDINGS: Evaluation of the mid to lower cervical spine is mildly compromised by artifact. Alignment of the cervical spine is anatomic. Vertebral body heights are maintained. No acute cervical spine fracture or subluxation is present. There is no prevertebral edema. Facet joints are intact. Central canal and neural foramina are suboptimally assessed given CT technique. Moderate multilevel degenerative disc disease and facet arthrosis is present. IMPRESSION: 1. No acute cervical spine fracture or subluxation. 2. Moderate degenerative changes within the cervical spine. 3. Exam mildly compromised by artifact. ACT 112: Negative or not required by law. Electronically signed by: Jose A Hernandez M.D. 06/13/2023 12:26 PM Dictated: 06/13/23 1223 Transcribed: 06/13/23 1223
[2023-06-15] MEDS: BACLOFEN 10 MG TAB PO SCH (10:56)
--- NOTE | 2023-06-15 16:01 | Hospitalist Progress Note ---
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 Patient denies chest pain or difficulty breathing or numbness or tingling or fever. The pain started during playing a game on his iPad for half an hour and gradually worsened. He denies trauma or heavy lifting. He is being managed for the following: Acute neck pain Patient coming in with right-sided neck pain,Right-sided Neck paraspinal muscle tenderness on exam. MRI C-spine with degenerative disc disease on the right;Small amount of fluid within right C2-C3 facets with associated marrow edema; fibrous advanced degenerative changes. Status post trigger point injection on June 15, 2023 by pain management [facility] consulted; appreciate recommendation Baclofen for spasms PT OT evaluation Elevated troponin I level, , Demand ischemia: Slight elevation in trop to 25 with the repeat trending back down to 18 which is within normal range. Cont to monitor on telemetry. COPD (chronic obstructive pulmonary disease): chronic, stable. Cont home inhalers. Thrombus of aorta: PMH, no clot on repeat CTA chest. pt has been taken off of eliquis in the past by his physician. Tobacco abuse: smoking cessation recommended, nicotine patch PRN Elevated transaminase level: mildly elevated, repeat in am. improving. follow DVT prophy: Lovenox Full Code Dispo-to home once neck pain has resolved. PT OT ordered Please note the above document was generated using voice recognition software. It may contain grammatical, syntax or spelling errors. Any formal questions or concerns about the content, text or information contained within the body of this dictation should be directly addressed to the provider for clarification Admission and Anticipated Discharge Date Admission Date: June 13, 2023 Subjective Patient seen and examined at bedside. He reports continuous pain in the neck with mild improvement. Received trigger point injections today Review of Systems Review of Systems: All systems reviewed & are unremarkable except as noted in Subjective Physical Exam Physical Exam: GENERAL: Alert and oriented x3. on RA. Appear uncomfortable due to right neck pain. HEENT: No pallor, no icterus. Pupils equal, round and reactive to light. Oral mucosa moist. NECK: Painful ROM of neck. Right neck paraspinal tenderness noted. HEART: S1 and S2 heard. Regular rate and rhythm. No murmur, no gallop. RESPIRATORY SYSTEM: Normal AP diameter. No accessory muscle use. No wheezing, no crackles. ABDOMEN: Soft, bowel sounds present, nontender, no distention. CENTRAL NERVOUS SYSTEM: No facial droop. Speech is clear. Obeys simple commands. Moves extremities. EXTREMITIES: No edema, no erythema seen. Results & Data Results & Data Vital Signs (Past 12 Hours) Vital Signs Temp Pulse Pulse Resp BP Pulse Ox O2 Del Method 06/15/23 15:21 36.7 C 78 16 131/66 91 Room Air 06/15/23 15:01 90 06/15/23 11:41 36.9 C 82 16 118/62 92 Room Air 06/15/23 11:27 Room Air, Nasal Cannula 06/15/23 07:38 36.6 C 65 16 126/77 95 Room Air 06/15/23 06:57 66 06/15/23 04:33 Nasal Cannula O2 Flow Rate 06/15/23 15:21 06/15/23 15:01 06/15/23 11:41 06/15/23 11:27 2 06/15/23 07:38 06/15/23 06:57 06/15/23 04:33 2
--- NOTE | 2023-06-16 06:35 | Orthopedic Consultation ---
Date of Service June 16, 2023 History of Present Illness Reason for Consultation: Neck pain Requesting Physician: . Attending Physician: Enzo Smith MD 67 yo M presented with neck pain to the emergency room on June 12. He has a h/o ongoing tobacco use, and a known descending aorta thrombus on Eliquis and ASA. He also has a h/o PE and pulmonary emphysema and continues to smoke. He reported gradual onset of neck pain over the last 12 hours. He reported fishing over the weekend and that he has a sore throat. Denies chest pain or difficulty breathing. Denies cough or congestion. No fevers reported. The neck pain reported is reproducible on exam. Describes pain as strong neck pain that came on the night before, was sitting and playing a game on his iPAD for half an hour when he felt the pain come on. He denies holding his head in one position for a long time and denies any repetitive motion, or similar incidents in the past and no neural compressive symptoms in the upper extremities. Exam reveals him to indicate pain in the right paraspinal musculature closer to the occipital area, but limited tenderness to palpation. Otherwise he has tanvi ropriate range of motion, negative Spurling's maneuver. Upper extremity exam reveals intact strength and symmetric. CERVICAL SPINE MRI from June 14, 2023 HISTORY: severe neck pain, restricted ROM, acute wo trauma TECHNIQUE: Multiplanar multisequence MRI of the cervical spine was performed without the use of contrast. COMPARISON STUDY: Cervical spine CT 06/13/2023. FINDINGS: Suboptimal evaluation of the cervical spine due to motion artifact. However, no definite fracture or subluxation. Prevertebral soft tissues and the C1-C2 interval are intact. Near nondiagnostic evaluation of the axial sequences due to the motion artifact. The cervical spinal cord appears to be normal in course, caliber, and signal intensity. Small amount of fluid within the right C2-C3 facets with associated marrow edema. There is soft tissue edema surrounding the right C2-C3 facet and extending into the posterior soft tissues of the upper neck. This favors advanced degenerative change. Superimposed infec tion is considered less likely given the lack of erosive change. C2-C3: No significant central canal or neural foraminal narrowing. C3-C4: No significant central canal narrowing. Mild left-sided neural foraminal narrowing due to the uncovertebral and facet hypertrophy. C4-C5: No significant central canal narrowing. Mild bilateral neural foraminal narrowing due to the uncovertebral and facet hypertrophy. C5-C6: No significant central canal narrowing. Mild right and moderate left neural foraminal narrowing due to the uncovertebral and facet hypertrophy. C6-C7: No significant central canal or neural foraminal narrowing. C7-T1: No significant central canal or neural foraminal narrowing. IMPRESSION: 1. Suboptimal evaluation of the cervical spine due to the significant motion artifact. 2. Small amount of fluid within the right C2-C3 facets with associated marrow edema. There is soft tissue edema surrounding the right C2-C3 facet and extending into the posterior soft tissues of the upper neck. This favors advanced degenerative change. Superimposed infection is considered less likely given the lack of erosive change. 3. No fracture or subluxation. 4. No significant central canal narrowing CT OF THE CERVICAL SPINE WITHOUT CONTRAST from June 13, 2023 CLINICAL HISTORY: Severe neck pain. COMPARISON STUDY: Cervical spine CT April 17, 2023. TECHNIQUE: Helical axial images of the cervical spine were obtained without IV contrast. Sagittal and coronal reconstructions were viewed. Automated exposure control was utilized for the study. A dose lowering technique was utilized adhering to the principles of ALARA. FINDINGS: Evaluation of the mid to lower cervical spine is mildly compromised by artifact. Alignment of the cervical spine is anatomic. Vertebral body heights are maintained. No acute cervical spine fracture or subluxation is present. There is no prevertebral edema. Facet joints are intact. Central canal and neural foramina are suboptimally assessed given CT technique. Moderate multilevel degenerative disc disease and facet arthrosis is present. IMPRESSION: 1. No acute cervical spine fracture or subluxation. 2. Moderate degenerative changes within the cervical spine. 3. Exam mildly compromised by artifact. CT scan images and MRI images along with radiographs from June 12 and June 13 were reviewed, this is my separate interpretation, this reveals no significant f indings outside of the limited facet fluid at C2-3 and limited degenerative changes. WBC on 06 12 and 11.51, but on 588.84. Sed rate 15 on 06 12. Impression: Relative acute onset of right-sided cervical axial symptoms, findings on examination is limited to some fluid collection involving the right C2-3 facet. Plan: On examination on 06 14 and discussion with the patient, his symptoms were improving on appropriate pain medications and was asking relative to when he could be discharged now that he was improved. I related that the soft collar is optional, and I have requested follow-up in the next 1 to 2 weeks especially if he does not improve. Certainly he should contact us if there is any new symptomatology, otherwise discharged on appropriate pain medication and muscle relaxers. Home Medications Medication Instructions Recorded Confirmed Type pregabalin 100 mg capsule (Lyrica) 100 mg PO BID 10/16/17 06/13/23 History meclizine 12.5 mg tablet 12.5 mg PO TID PRN Dizziness 06/28/21 06/13/23 History prednisone 20 mg tablet 40 mg PO QAM PRN RESCUE KIT 04/05/22 06/13/23 History bupropion HCl 150 mg tablet,12 hr 150 mg PO BID 04/07/22 06/13/23 History sustained-release (Wellbutrin SR) ondansetron 8 mg disintegrating 8 mg PO Q8H PRN Nausea 04/07/22 06/13/23 History tablet clobetasol 0.05 % topical cream 1 applic topical BID PRN Rash 12/29/22 06/13/23 History levalbuterol HCl 1.25 mg/3 mL 1.25 mg inhalation Q4H PRN Wheezing 12/29/22 06/13/23 History solution for nebulization triamcinolone acetonide 0.1 % 1 applic topical BID PRN Rash 12/29/22 06/13/23 History topical cream cyanocobalamin (vitamin B-12) 1,000 mcg PO QAM 03/08/23 06/13/23 History 1,000 mcg tablet (Vitamin B-12) aspirin 81 mg tablet,delayed 81 mg PO QAM #30 tabs 03/11/23 06/13/23 Rx release atorvastatin 80 mg tablet (Lipitor) 80 mg PO DAILY #30 tabs 03/11/23 06/13/23 Rx pantoprazole 40 mg tablet,delayed 40 mg PO BID 30 days #60 tabs 04/06/23 06/13/23 Rx release (Protonix) albuterol sulfate 90 mcg/actuation 2 puff inhalation Q4H PRN 04/26/23 06/13/23 Rx aerosol inhaler Shortness Of Breath Or Wheezing #8.5 grams guaifenesin 600 mg tablet, 600 mg PO BID PRN congestion #60 04/26/23 06/13/23 Rx extended release 12 hr (Mucinex) tabs escitalopram oxalate 10 mg tablet 10 mg PO DAILY 06/13/23 06/13/23 History fluticasone fur. 200 mcg-umeclid 1 inh inhalation DAILY 06/13/23 06/13/23 History 62.5 mcg-vilant 25 mcg inhalat.powder (Trelegy Ellipta) Past Med/Surg History Medical History (Updated 06/15/23 @ 09:12 by Jose Cooper PA-C) Myofascial pain Neck muscle spasm Spasm of right trapezius muscle Acute respiratory failure with hypoxemia Chronic respiratory failure On oxygen at night in the past - but no longer needs per patient Hx of migraines Sleep apnea No device History of COVID-19 2019, moderate symptoms > resolved 2020, mild symptoms > resolved Post-nasal drip Chronic - stable HLD (hyperlipidemia) TAYLOR (obstructive sleep apnea) Cannot tolerate device Anxiety Pneumothorax Hx- complication from pain injection- resolved COPD, moderate Breathing stable Neuropathy GERD (gastroesophageal reflux disease) Well controlled and stable Histoplasmosis 2002- treated Diaphragmatic hernia Thoracic spinal stenosis Surgical History History of esophagogastroduodenoscopy (EGD) Hx of colonoscopy History of open reduction and internal fixation (ORIF) procedure right shoulder History of total replacement of left shoulder joint History of sinus surgery History of placement of chest tube History of hand surgery Left femoral shaft fracture Dutch placed H/O total hip arthroplasty left side H/O elbow surgery H/O exploratory thoracotomy "Left thoracotomy wedge biopsy of left upper lobe with excision of lesion or nodule & frozen section 2002" H/O hernia repair "[facility] incarcerated supraumbilical hernia repair open no mesh 02/17/01" Family History Father Heart disease Hypertension Brother Cancer Hypertension Stroke Heart disease Mother Cancer Other Leukemia No family history of bleeding disorder Non-Hodgkin lymphoma Denies family history of Hearing loss Asthma Social History Smoking Status: Current every day smoker Tobacco Type: Cigarettes Age Started Using Tobacco: 11; packs per day: 1; Cigarettes Per Day: 10 cigs /day; Second Hand Exposure: No; Do You Dip or Chew Tobacco: No; Hx Alcohol Use: No Hx Substance Use: No Preferred Language: Citizen Of [place] Communication Ability: Effective Baby Formula Mixer Required: No Beliefs That Will Affect Care: None marital status: Current Living Situation: Spouse current occupational status: unemployed Feels Safe at Home: Yes Safety Concerns: Feels Safe At This Time Assistive Devices: Glasses and Oxygen - at Night Review of Systems All systems reviewed & are unremarkable except as noted in HPI & below. Physical Exam . Results & Data Results & Data Laboratory Results . Diagnostic Findings . PG Care Time/CCT Total # of Minutes Spent Total Time Spent with Patient: Total time spent is greater than 50% in coordination of care (as documented) at patient's floor/unit and/or counseling patient: Coding Level of Care Code 74847 IN/OBS CONSULT LVL 3,45M
[2023-06-16 07:26] LABS: Albumin Globulin Ratio 1.3 (0.9-2); Albumin Level 3.2 gm/dl (3.4-5.0); BUN Creatinine Ratio 22.1 (10-20); Bilirubin,Total 0.3 mg/dl (0.2-1.0); Calcium 7.3 mg/dl (8.6-10.3); Creatinine Clr Calc Pharmacy 111.8 ml/min; Est GFR (African American) 112.9 ml/min; Est GFR (Non-African American) 97.4 ml/min; Globulin 2.4 gm/dl (2.5-4.0); Potassium 4.2 mmol/L (3.5-5.1); Total Protein 5.6 gm/dl (6.0-8.3)
--- NOTE | 2023-06-16 12:58 | Pain Management Progress Note ---
Date of Service June 16, 2023 Assessment & Plan (1) Acute neck pain: (2) Spasm of right trapezius muscle: (3) Neck muscle spasm: (4) Myofascial pain: Plan 1. Continue moist heat applied to right neck/shoulder region. 2. Recommend prescription for outpatient muscle relaxer. 3. Use soft c-collar only as needed for severe pain if minor movements are causing spasms. 4. Neck/C-spine conditioning. 5. If he has return of symptoms, he can make an appointment to see us in the id in clinic office for further trigger point injections at least 90 days from the prior. Pain management service will sign off at this time. Admission and Anticipated Discharge Date Admission Date: June 13, 2023 Subjective Patient states he is feeling much better today and he is ready to go home and get back to doing more fishing. He feels that the injections have helped him greatly. He is aware of where are pain management clinic office is and will follow-up with us as an outpatient if he has significant return of symptoms. Physical Exam Physical Exam: GENERAL: Speech and cognition is intact. Mood and affect is appropriate. In no acute distress. HEAD: Normocephalic; atraumatic. NECK: Improved ROM compared to yesterday; trachea is midline; Spasm diminished to right sided neck/cervical paraspinals and trapezius. NEURO: CN II-XII grossly intact with no focal deficits noted. SKIN: No lesions, erythema, or rashes noted.
--- NOTE | 2023-06-16 15:13 | Discharge Summary ---
Date of Service June 16, 2023 Admission HPI Per Admitting Provider 67 yo M presents with acute neck pain overnight. He has a h/o ongoing tobacco use, and a known descending aorta thrombus on Eliquis and ASA. He also has a h/o PE and pulmonary emphysema and continues to smoke. He reported gradual onset of neck pain over the last 12 hours. He reported fishing over the weekend and that he has a sore throat. Denies chest pain or difficulty breathing. Denies cough or congestion. No fevers reported. The neck pain reported is reproducible on exam. He was given dilaudid 1mg IV in the ER with subsequent hypoxia. Describes pain as strong neck pain that came on last night He was sitting and playing a game on his iPAD for half an hour when he felt the pain come on He denies holding his head in one position for a long time and denies any repetitive motion. He had eaten dinner The pain was ongoing for two hours prior to bed Took nothing for the pain Woke up around 3am with severe neck pain, doesn't feel that he slept on it wrong States he is sore all over but this is chronic. 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 He was hospitalized recently for COPD flares and states that his breathing is fine without issues. Sat/Sun-fished all day both days, was sitting in the truck for a while because of the rain Wading in water to fish denies chest pain, denies nausea no loss of bowel/bladder control denies any back pain now but has a h/o chronic back pain in the past takes pregabalin for post thoracotomy pain which is chronic since 2002 He denies having neck pain in the past He states he doesn't believe he would be able to tolerate an MRI at this time. Admission Exam Per Admitting Provider CONSTITUTIONAL: WNWD, vitals as above, generally writhing in pain and appears uncomfortable. EYES: EOMI bilaterally, PERRL, normal conjunctivae, no scleral icterus ENT: external ear and nose normal, oropharynx clear, MMM NECK: trachea midline, no lymphadenopathy, bilateral strap muscles of neck are tight R>L. REstricted ROM in all places of motion, Spurling's test is negative with no radiculopathy present, but there was pain with axial load on the right. Note that test was significantly limited given the limited movement of the c- spine 2/2 severe pain. Patient was also unable to sit up straight in bed or sit on the bedside. TTP present in posterior paraspinal cervical muscles R>L and in trapezius muscles bilaterally. I was unable to visualize the neck because of the limited ability of the patient to move. RESPIRATORY: clear to auscultation bilaterally, no crackles, rales or wheezes, normal respiratory effort CARDIOVASCULAR: regular rate and rhythm, S1 and 2 heard without murmurs, gallops or rubs, no JVD, no peripheral edema, no abdominal bruits. equal bilateral blood pressures 117/93 L upper arm 114/64 R upper arm, and equal bilateral pulses. CHEST: inspection of chest was normal GASTROINTESTINAL: soft, nontender, ND, no guarding MUSCULOSKELETAL: strength 5/5 throughout, head is normocephalic and atraumatic, he can abduct his arms at the shoulder level bilaterally to 90 degrees. SKIN: warm and dry NEUROLOGIC: patellar and brachioradialis DTRs 2+ bilat. No facial palsy, no dysarthria. Touch, pain and proprioception normal. CN 2-12 grossly intact, no sensory deficit, normal cognition, normal speech, no tremor PSYCHIATRIC: alert cooperative and oriented to person, place and time. Euthymic mood, makes good eye contact, language grossly intact, recent and remote memory grossly intact. Principal Diagnosis Neck pain Muscle spasm/sprain Discharge Exam GENERAL: Alert and oriented x3. on RA. Appear uncomfortable due to right neck pain. HEENT: No pallor, no icterus. Pupils equal, round and reactive to light. Oral mucosa moist. NECK: Painful ROM of neck. Right neck paraspinal tenderness noted. HEART: S1 and S2 heard. Regular rate and rhythm. No murmur, no gallop. RESPIRATORY SYSTEM: Normal AP diameter. No accessory muscle use. No wheezing, no crackles. ABDOMEN: Soft, bowel sounds present, nontender, no distention. CENTRAL NERVOUS SYSTEM: No facial droop. Speech is clear. Obeys simple commands. Moves extremities. EXTREMITIES: No edema, no erythema seen. Discharge Data Allergies Allergy/AdvReac Type Severity Reaction Status Date / Time No Known Allergies Allergy Verified 06/16/23 07:11 Consultations 06/13/23 13:42 ED Decision to Admit Stat 06/14/23 11:44 Consult Pain Management Routine 06/15/23 08:16 Consult Orthopedic Spine Surgery Routine Ordered Studies 06/13/23 10:32 CT cervical spine wo con Stat 06/14/23 07:00 MR cervical spine wo con Routine Hospital Course (1) Acute neck pain: Plan 67-year-old male with PMH of ongoing tobacco use, descending aorta thrombus on Eliquis and ASA, PE and pulmonary emphysema presented to the ED 06/12 with gradual onset of neck pain over the right base. Patient denies chest pain or difficulty breathing or numbness or tingling or fever. The pain started during playing a game on his iPad for half an hour and gradually worsened. He denies trauma or heavy lifting. He was managed for following condition during the hospitalization: Acute neck pain Patient coming in with right-sided neck pain,Right-sided Neck paraspinal muscle tenderness on exam. MRI C-spine with degenerative disc disease on the right;Small amount of fluid within right C2-C3 facets with associated marrow edema; advanced degenerative c hanges. Status post trigger point injection on June 15, 2023 by pain management [facility] consulted; No surgical intervention required Patient reported improvement in symptoms with muscle relaxant, pain medication and soft collar. Patient was discharged home with instruction to follow-up with PCP Patient was offered a prescription for outpatient PT OT which he refused Please note the above document was generated using voice recognition software. It may contain grammatical, syntax or spelling errors. Any formal questions or concerns about the content, text or information contained within the body of this dictation should be directly addressed to the provider for clarification Total Time Total Time Spent Total Time Spent (In Minutes): 34 Total Time Includes: Examination of the Patient, Discharge Planning, Medication Reconciliation, Communication With Other Providers and Other Discharge Plan Discharge Items Patient Disposition: Home - Self-Care Reason For Visit: ACUTE NECK PAIN Discharge Diagnosis: Acute neck pain Activity: Resume your previous activity Non-emergency contact: Primary Care Provider Call non-emergency contact if: you have any medication questions Follow-up/Referrals: Ajit Moreno MD [Primary Care Provider] - (Date & Time 06/20/2023 8:00 AM Provider Ajit Moreno MD Department [facility] ) Diet: Regular Addtl Attending Provider Instructions: You were admitted to the hospital with neck pain. You underwent MRI of the neck which showed soft tissue edema. The likely cause for the pain is muscle spasm/sprain. You are also evaluated by orthospine Doctor And pain management doctor. You are prescribed following medications for pain control: Take Tylenol 650 mg every 8 hours as needed. Take baclofen 5 mg 3 times a day as needed. Take oxycodone 5 mg as needed every 6 hours You can also apply diclofenac gel over the painful area. You have a follow-up set up with your primary care doctor for June 19. Please go to that appointment. Please buy [id number] soft collar to be placed over the neck. Please wear it while you are awake for next 2 weeks Pending Studies at Discharge: No Stand-Alone Forms: My [facility] [employer], Smoking Cessation Medications and DC Order Prescriptions: New baclofen 5 mg tablet 5 mg PO TID 5 Days Qty: 15 0RF acetaminophen [Tylenol] 325 mg capsule 650 mg PO Q8H 5 Days Qty: 30 0RF oxycodone 5 mg Tablet 5 mg PO Q6H PRN (Reason: pain) Qty: 15 0RF diclofenac sodium [Voltaren Arthritis Pain] 1 % Gel 2 g EXT Q4H PRN (Reason: neck pain) Qty: 100 0RF Continued albuterol sulfate 90 mcg/actuation HFA aerosol inhaler 2 puff INHALATION Q4H PRN (Reason: Shortness Of Breath Or Wheezing) Qty: 8.5 3RF guaifenesin [Mucinex] 600 mg tablet extended release 12hr 600 mg PO BID PRN (Reason: congestion) Qty: 60 1RF Rx Instructions: Take 1 tab p.o. twice a day for 7 days and then as needed pregabalin [Lyrica] 100 mg Capsule 100 mg PO BID meclizine 12.5 mg tablet 12.5 mg PO TID PRN (Reason: Dizziness) cyanocobalamin (vitamin B-12) [Vitamin B-12] 1,000 mcg Tablet 1,000 mcg PO QAM atorvastatin [Lipitor] 80 mg tablet 80 mg PO DAILY Qty: 30 0RF aspirin 81 mg Tablet,Delayed Release (Dr/Ec) 81 mg PO QAM Qty: 30 0RF prednisone 20 mg tablet 40 mg PO QAM PRN (Reason: RESCUE KIT) Rx Instructions: RESCUE KIT, TAKE FOR 5 DAYS. bupropion HCl [Wellbutrin SR] 150 mg Tablet Sustained-Release 12 Hr 150 mg PO BID ondansetron 8 mg Tablet,Disintegrating 8 mg PO Q8H PRN (Reason: Nausea) clobetasol 0.05 % Cream 1 applic TOPICAL BID PRN (Reason: Rash) triamcinolone acetonide 0.1 % Cream 1 applic TOPICAL BID PRN (Reason: Rash) levalbuterol HCl 1.25 mg/3 mL solution for nebulization 1.25 mg INHALATION Q4H PRN (Reason: Wheezing) pantoprazole [Protonix] 40 mg tablet,delayed release (DR/EC) 40 mg PO BID 30 Days Qty: 60 2RF Trelegy Ellipta 200-62.5-25 mcg blister with device 1 inh INHALATION DAILY escitalopram oxalate 10 mg tablet 10 mg PO DAILY Discharge Orders: Discharge Order (Routine); Ordered 06/16/23 Ordered By: Enzo Hobson/Other Patient Handouts: Muscle Spasm, Trigger Point Injection, Anatomy of a Normal Spine, Back Basics: A Healthy Spine, Active Neck Rotation Admission Data Admit Date/Time: 06/13/23 15:43 Attending Provider: Enzo Smith Admit Provider: Steffany Rendon Primary Care Provider: Ajit Moreno Other Providers: Steffany Rendon; Jessie Singh Ronald Other Interventions: Discharge Summary Assessment (RN) Last Done: 06/16/23 13:22
== END 2023-06-16 14:33 | disposition home or self-care (01) | DRG 552 ==
LOC: ED 10:04 → EDINP 15:43 → SUATTDRO 15:43 → 2N 23:11

== ENCOUNTER 2023-08-02 09:10 | Inpatient (IN) ==
--- NOTE | 2023-08-02 09:27 | Emergency Department Note ---
Impression & Plan Septic bursitis of elbow ADMIT ED Provider Note HPI: History obtained from patient. The patient is a 67-year-old gentleman with history of COPD, hypertension, tobacco abuse, arthritis, who presents the emergency department with chief complaint of right elbow pain. Patient states he has had this pain for about 1 week. Patient states he is also noted some swelling in the area of the right elbow. Patient denies any recent fever. Patient states he did have operative intervention performed for fracture of his right elbow in the distant past (20 years ago [facility]). Patient denies any recent procedures, denies any recent traumatic injuries. On arrival here to the ED the patient is in mild distress secondary to pain in his right elbow, he is otherwise hemodynamically stable. ROS: - Per HPI Differential Diagnosis: Septic arthritis, septic olecranon bursitis, gout, rheumatoid arthritis, osteoarthritis, right elbow fracture, right elbow dislocation, bony lesion/tumor, amongst other potential pathologies. *Outpatient medications and allergy history reviewed. PE: General: Alert HEENT: Normocephalic, trachea midline Eyes: Extraocular eye movement is intact, no scleral erythema Pulmonary: Clear to auscultation bilaterally, no wheezing Cardio: Regular rate and rhythm GI: Abdomen is soft to palpation : No suprapubic tenderness MSK: There is a moderate joint effusion noted on exam of the right elbow with some mild overlying erythema, there is fluctuance and swelling over the olecranon process, range of motion is limited secondary to pain Skin: No evidence of rash Neuro: Alert, no focal deficits Psychiatric: Cooperative INDEPENDENT INTERPRETATIONS: shelter monitor: (As interpreted by myself): - An order was placed for continuous cardiac monitoring - Patient was noted to be in sinus rhythm with a rate of 80 EKG: (As interpreted by myself): Rate: 72 Rhythm: Normal sinus rhythm Intervals: Within normal limits ST changes: No ST elevation Time: 0939 Chest x-ray: (As interpreted by myself): No acute disease Arthrocentesis of the right elbow: Patient verbally consented for the procedure Right elbow was prepped utilizing alcohol swabs Utilizing sterile technique, patient had topical anesthesia performed with 3 cc of 1% lidocaine without epinephrine Utilizing a 22-gauge needle, needle was gently advanced over the elbow posteriorly over the olecranon process at the area of maximum fluctuance while aspirating from the syringe 4 cc total of cloudy colored synovial fluid was aspirated from the joint space Patient tolerated the procedure well Interventions provided in ED: -IV Solu-Medrol, IV morphine, IV Zofran, IV ceftriaxone, IV vancomycin Medical Decision Making: IV was established and lab work obtained, patient was placed on monitoring tech. Lab work shows a mild leukocytosis at 14.62, hemoglobin is stable at 13.3, platelet count is normal, there is a neutrophilic predominance at 11.40, CMP does not show any critical findings, troponin is negative, chest x-ray per my interpretation does not show any evidence of acute disease. Ultrasound imaging of the right upper extremity does not show any evidence of DVT. X-ray imaging of the right elbow shows effusion without evidence of fracture. Given the patient's leukocytosis without obvious source for joint effusion, I did discuss arthrocentesis with the patient and he was in agreement. Maximum area of fluctuance/swelling is over the olecranon process, raising the suspicion of an olecranon bursitis. Aspiration was performed at the bedside and synovial fluid was sent for analysis. Gram stain shows many polys without evidence of organisms. There is no evidence of synovial crystals. [place] [address]. Given this patient was started on IV ceftriaxone and IV vancomycin. Lyme test is pending. On my reassessment the patient appears more comfortable following IV morphine and IV Zofran. He did mention that he had "some chest pain" over the past several weeks but none currently. His troponin is negative and his EKG per my interpretation does not show any acute ischemic changes. I suspect his pain is secondary to septic arthritis as opposed to any type of primary cardiac issue. I discussed the patient's presentation with on-call orthopedics, Dr. Willis, who does suspect at this point given the location of the patient's pain that I am describing and the location of the aspirate that this is likely an olecranon bursitis, possibly infected. Will await culture results and he is in agreement for consultation. Case was also discussed with the on-call hospitalist for [facility], Dr. Avalos, and the patient was placed for admission in stable condition for further care. Consultants/Discussions held with other healthcare providers: -Orthopedics, Dr. Willis -Hospitalist, Dr. Avalos Disposition discussion held by myself with: -Patient Diagnosis: 1. Septic bursitis of the right elbow, acute 2. Leukocytosis, acute 3. Right arm pain, acute 4. Chest pain, acute, nonspecific Disposition: Admission Regis Ruff DO Emergency Medicine Past Med/Surg History Problem List (Updated 08/02/23 @ 15:21 by Regis Ruff DO) Septic bursitis of elbow (Acute) Myofascial pain Neck muscle spasm Spasm of right trapezius muscle Elevated transaminase level Elevated troponin I level (Acute) Acute neck pain (Acute) COPD (chronic obstructive pulmonary disease) (Acute) Bilateral wheezing (Acute) SOB (shortness of breath) (Acute) TAYLOR (obstructive sleep apnea) Cannot tolerate device Dizziness (Acute) Headache (Acute) Abdominal pain (Acute) Acute respiratory failure with hypoxemia Thrombus of aorta (Acute) Acute hypotension (Acute) Chest pain (Acute) Encounter for pre-operative examination Hypertension (Chronic) Acute exacerbation of chronic obstructive airways disease (Acute) Tobacco abuse Obesity (Acute) Hypertrophy of nasal turbinates (Acute) Chronic sinusitis (Acute) Chronic post-thoracotomy pain (Acute) Cervical radiculopathy (Acute) Arthritis (Acute) Acquired deviated nasal septum (Acute) Cessation of tobacco use in previous 12 months Nasal polyp Gastritis Closed compression fracture of lumbar vertebra (Acute) Closed fracture of radial head (Acute) Fall (Acute) Left wrist sprain Compression fracture of L5 vertebra Pulmonary nodule seen on imaging study Multiple pulmonary nodules COPD with emphysema Chronic bronchitis Current smoker Acute bronchitis COPD exacerbation (Acute) Bronchitis (Acute) Chest pain (Acute) COPD exacerbation (Acute) Leukocytosis (Acute) Shortness of breath at rest (Acute) Post-nasal drip Chronic - stable Viral upper respiratory illness hx Anxiety (Chronic) HLD (hyperlipidemia) (Chronic) Thoracic spinal stenosis (Chronic) Diaphragmatic hernia (Chronic) GERD (gastroesophageal reflux disease) (Chronic) Well controlled and stable Neuropathy (Chronic) COPD, moderate (Chronic) Breathing stable Medical History (Updated 08/02/23 @ 15:21 by Regis Ruff DO) Chronic respiratory failure On oxygen at night in the past - but no longer needs per patient Hx of migraines Sleep apnea No device History of COVID-19 2019, moderate symptoms > resolved 2020, mild symptoms > resolved Pneumothorax Hx- complication from pain injection- resolved Histoplasmosis 2002- treated Surgical History History of esophagogastroduodenoscopy (EGD) Hx of colonoscopy History of open reduction and internal fixation (ORIF) procedure right shoulder History of total replacement of left shoulder joint History of sinus surgery History of placement of chest tube History of hand surgery Left femoral shaft fracture Dutch placed H/O total hip arthroplasty left side H/O elbow surgery H/O exploratory thoracotomy "Left thoracotomy wedge biopsy of left upper lobe with excision of lesion or nodule & frozen section 2002" H/O hernia repair "[facility] incarcerated supraumbilical hernia repair open no mesh 02/17/01" Family History Father Heart disease Hypertension Brother Cancer Hypertension Stroke Heart disease Mother Cancer Other Leukemia No family history of bleeding disorder Non-Hodgkin lymphoma Denies family history of Hearing loss Asthma Social History Smoking Status: Current every day smoker Tobacco Type: Cigarettes Age Started Using Tobacco: 11; packs per day: 1; Cigarettes Per Day: 10 cigs /day; Second Hand Exposure: No; Do You Dip or Chew Tobacco: No; Hx Alcohol Use: No Hx Substance Use: No Preferred Language: Nepalese Communication Ability: Effective 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 Beliefs That Will Affect Care: None marital status: Current Living Situation: Spouse current occupational status: unemployed Feels Safe at Home: Yes Assistive Devices: Glasses and Oxygen - at Night Allergies Allergies Allergy/AdvReac Type Severity Reaction Status Date / Time No Known Allergies Allergy Verified 06/16/23 07:11 Home Meds Home Medications Medication Instructions Recorded Confirmed pregabalin 100 mg capsule (Lyrica) 100 mg PO BID 10/16/17 08/02/23 meclizine 12.5 mg tablet 12.5 mg PO TID PRN Dizziness 06/28/21 08/02/23 prednisone 20 mg tablet 40 mg PO QAM PRN RESCUE KIT 04/05/22 08/02/23 bupropion HCl 150 mg tablet,12 hr 150 mg PO BID 04/07/22 08/02/23 sustained-release (Wellbutrin SR) ondansetron 8 mg disintegrating 8 mg PO Q8H PRN Nausea 04/07/22 08/02/23 tablet clobetasol 0.05 % topical cream 1 applic topical BID PRN Rash 12/29/22 08/02/23 levalbuterol HCl 1.25 mg/3 mL 1.25 mg inhalation Q4H PRN Wheezing 12/29/22 08/02/23 solution for nebulization triamcinolone acetonide 0.1 % 1 applic topical BID PRN Rash 12/29/22 08/02/23 topical cream cyanocobalamin (vitamin B-12) 1,000 mcg PO QAM 03/08/23 08/02/23 1,000 mcg tablet (Vitamin B-12) escitalopram oxalate 10 mg tablet 10 mg PO DAILY 06/13/23 08/02/23 fluticasone fur. 200 mcg-umeclid 1 inh inhalation DAILY 06/13/23 08/02/23 62.5 mcg-vilant 25 mcg inhalat.powder (Trelegy Ellipta) baclofen 5 mg tablet 5 mg PO TID PRN muscle spasms 08/02/23 08/02/23 furosemide 40 mg tablet 40 mg PO UD 08/02/23 08/02/23 Previous Rx's Medication Instructions Recorded aspirin 81 mg tablet,delayed 81 mg PO QAM #30 tabs 03/11/23 release atorvastatin 80 mg tablet (Lipitor) 80 mg PO DAILY #30 tabs 03/11/23 pantoprazole 40 mg tablet,delayed 40 mg PO BID 30 days #60 tabs 04/06/23 release (Protonix) albuterol sulfate 90 mcg/actuation 2 puff inhalation Q4H PRN 04/26/23 aerosol inhaler Shortness Of Breath Or Wheezing #8.5 grams guaifenesin 600 mg tablet, 600 mg PO BID PRN congestion #60 04/26/23 extended release 12 hr (Mucinex) tabs diclofenac sodium 1 % topical gel 2 g EXT Q4H PRN neck pain #100 06/16/23 (Voltaren Arthritis Pain) grams oxycodone 5 mg tablet 5 mg PO Q6H PRN pain #15 tabs 06/16/23 CPAP Machine #1 ea 06/24/23 CPAP Supplies #1 ea 06/24/23 Results & Data (ED) Vital Signs Vital Signs - 24 hr 08/02/23 09:12 08/02/23 10:15 08/02/23 10:38 Temperature 36.7 C Temperature Source Temporal Artery Scan Pulse Rate 77 76 Pulse Rate [Apical] Pulse Rate from SpO2 Sensor Respiratory Rate 18 Respiratory Effort / Characteristics Non-Labored Spontaneous Respiratory Depth Normal Respiratory Pattern Regular Blood Pressure 157/80 H Blood Pressure [Right Arm] Blood Pressure Mean 105 Blood Pressure Mean [Right Arm] Pulse Oximetry 97 93 Oxygen Delivery Method Room Air Room Air Sepsis Recent Fever Within 48 Hours No Sepsis New/Unexplained Change in Mental Status N/A Sepsis Action Taken by Nursing No Action Required 08/02/23 11:21 08/02/23 11:30 08/02/23 12:00 Temperature Temperature Source Pulse Rate 82 76 75 Pulse Rate [Apical] Pulse Rate from SpO2 Sensor 86 78 75 Respiratory Rate 15 22 20 Respiratory Effort / Characteristics Respiratory Depth Respiratory Pattern Blood Pressure Blood Pressure [Right Arm] Blood Pressure Mean Blood Pressure Mean [Right Arm] Pulse Oximetry 91 91 97 Oxygen Delivery Method Sepsis Recent Fever Within 48 Hours Sepsis New/Unexplained Change in Mental Status Sepsis Action Taken by Nursing 08/02/23 12:45 08/02/23 13:03 08/02/23 13:39 Temperature Temperature Source Pulse Rate 77 82 77 Pulse Rate [Apical] Pulse Rate from SpO2 Sensor 79 82 77 Respiratory Rate 19 22 30 H Respiratory Effort / Characteristics Respiratory Depth Respiratory Pattern Blood Pressure Blood Pressure [Right Arm] Blood Pressure Mean Blood Pressure Mean [Right Arm] Pulse Oximetry 95 95 95 Oxygen Delivery Method Sepsis Recent Fever Within 48 Hours Sepsis New/Unexplained Change in Mental Status Sepsis Action Taken by Nursing 08/02/23 13:51 08/02/23 13:58 08/02/23 13:58 Temperature Temperature Source Pulse Rate 77 Pulse Rate [Apical] 78 Pulse Rate from SpO2 Sensor 77 Respiratory Rate 17 19 Respiratory Effort / Characteristics Non-Labored Spontaneous Respiratory Depth Normal Respiratory Pattern Regular Blood Pressure 133/86 Blood Pressure [Right Arm] 133/86 Blood Pressure Mean 106 Blood Pressure Mean [Right Arm] 101 Pulse Oximetry 95 95 Oxygen Delivery Method Sepsis Recent Fever Within 48 Hours Sepsis New/Unexplained Change in Mental Status Sepsis Action Taken by Nursing 08/02/23 14:00 Temperature Temperature Source Pulse Rate 78 Pulse Rate [Apical] Pulse Rate from SpO2 Sensor 79 Respiratory Rate 24 Respiratory Effort / Characteristics Respiratory Depth Respiratory Pattern Blood Pressure Blood Pressure [Right Arm] Blood Pressure Mean Blood Pressure Mean [Right Arm] Pulse Oximetry 94 Oxygen Delivery Method Sepsis Recent Fever Within 48 Hours Sepsis New/Unexplained Change in Mental Status Sepsis Action Taken by Nursing Laboratory Data 08/02/23 09:50 08/02/23 09:50 Lab Results 08/02/23 08/02/23 Range/Units 09:50 11:27 WBC 14.62 H (4.8-10.8) K/ul RBC 4.25 L (4.70-6.10) M/uL Hgb 13.3 L (14.0-18.0) g/dl Hct 39.3 L (42.0-52.0) % MCV 92.5 (80.0-100.0) fL MCH 31.3 (25.0-34.0) pg MCHC 33.8 (32.0-36.0) g/dL RDW Std Deviation 51.6 H (36.4-46.3) fL RDW Coeff of Jaz 15.3 H (11.5-14.5) % Plt Count 294 (130-400) K/uL MPV 11.0 (9.4-12.4) fL Immature Gran % (Auto) 0.7 % Neut % (Auto) 78.1 % Lymph % (Auto) 11.2 % [place] % (Auto) 8.1 % Eos % (Auto) 1.6 % Baso % (Auto) 0.3 % Neut # (Auto) 11.40 H (1.40-6.50) K/uL Lymph # (Auto) 1.64 (1.20-3.40) K/uL [place] # (Auto) 1.19 H (0.11-0.59) K/uL Eos # (Auto) 0.24 (0.00-0.50) K/uL Baso # (Auto) 0.05 (0.00-0.20) K/uL Immature Gran # (Auto) 0.10 (0.01-0.20) K/uL PT 11.1 (9.0-12.0) Seconds INR 1.0 (0.9-1.1) Sodium 137 (136-145) mmol/L Potassium 4.1 (3.5-5.1) mmol/L Chloride 104 (98-107) mmol/L Carbon Dioxide 28 (21-32) mmol/L Anion Gap 5 (3-11) BUN 18 (6-23) mg/dl Creatinine 0.80 (0.6-1.4) mg/dl Est Cr Clr Drug Dosing 95.0 ml/min Est GFR ( Amer) 105.6 ml/min Est GFR (Non-Af Amer) 91.1 ml/min BUN/Creatinine Ratio 22.5 H (10-20) Glucose 98 (70-99(Fasting)) mg/dl Calcium 8.1 L (8.6-10.3) mg/dl Total Bilirubin 0.7 (0.2-1.0) mg/dl AST 47 H (13-39) U/L ALT 78 H (7-52) U/L Alkaline Phosphatase 99 (34-104) U/L Troponin I High Sens 8.6 (0-20) pg/ml Total Protein 6.0 (6.0-8.3) gm/dl Albumin 3.6 (3.4-5.0) gm/dl Globulin 2.4 L (2.5-4.0) gm/dl Albumin/Globulin Ratio 1.5 (0.9-2) Lipase 14 (11-82) U/L Fluid Comment Synovial Source Right Elbow Synovial Color Yellow Synovial Appearance Cloudy Synovial WBC (Auto) 57354 H (0-200) /ul Synovial RBC (Auto) 35724 /uL Synovial Polynuclear % 96.7 % Synovial Mononuclear % 3.3 % Synovial Crystals Administered Medications Vancomycin HCl 2,000 mg/ (Sodium Chloride) 540 mls @ 200 mls/hr IV NOW ONE Stop: 08/02/23 16:31 Last Admin: 08/02/23 14:33 Dose: 200 mls/hr Documented By: HS Discontinued Medications Ceftriaxone Sodium (Rocephin) 2,000 mg in 50 mls @ 100 mls/hr IV NOW STA Stop: 08/02/23 14:18 Last Infusion: 08/02/23 14:31 Dose: Infused Documented By: Admin: 08/02/23 13:59 Dose: 100 mls/hr Documented By: YEFRI Lidocaine HCl (Lidocaine 1% Local 20 Ml Vial) 5 ml INJ NOW ONE Stop: 08/02/23 10:54 Last Admin: 08/02/23 11:19 Dose: 5 ml Documented By: SHIRIN Methylprednisolone (Methylprednisolone 125 Mg/2 Ml Vial) 125 mg IV NOW STA Stop: 08/02/23 09:27 Last Admin: 08/02/23 10:06 Dose: 125 mg Documented By: DS Morphine Sulfate (Morphine Sulfate 4 Mg/Ml 1 Ml Carp\\Vial) 4 mg IV NOW STA Stop: 08/02/23 09:26 Last Admin: 08/02/23 10:06 Dose: 4 mg Documented By: DS Morphine Sulfate (Morphine Sulfate 4 Mg/Ml 1 Ml Carp\\Vial) 4 mg IV NOW STA Stop: 08/02/23 10:55 Last Admin: 08/02/23 11:18 Dose: 4 mg Documented By: HS Ondansetron HCl (Ondansetron Inj 2 Mg/Ml 2 Ml Vial) 4 mg IV NOW STA Stop: 08/02/23 09:26 Last Admin: 08/02/23 10:06 Dose: 4 mg Documented By: DS Imaging Data Radiologist's Impression: Chest X-Ray 08/02/23 09:25 XR chest 1V portable CLINICAL HISTORY: Chest pain, nonspecific COMPARISON STUDY: Chest CT May 12, 2023. Chest radiograph June 13, 2023. FINDINGS: Left shoulder arthroplasty and right humeral internal fixation are partially imaged. There is emphysema. No pneumothorax or pleural effusion is present. Cardiomediastinal silhouette is normal. There is no consolidation to suggest pneumonia. Appearance of the chest is unchanged. Linear left upper lung densities represent atelectasis or scarring. IMPRESSION: No acute cardiopulmonary findings. No significant change in appearance of the chest. ACT 112: Negative or not required by law. Electronically signed by: Jose A Hernandez M.D. 08/02/2023 9:50 AM Elbow X-Ray 08/02/23 09:25 RIGHT ELBOW 3 VIEWS CLINICAL HISTORY: Atraumatic right elbow pain. FINDINGS: 3 views of the right elbow are compared to study dated 10/03/2014. The skeletal structures are osteopenic. No acute fracture is clearly identified. There is chronic deformity of the radial head with 2 screws/screw fragments in place. A buttress plate is partially visualized along the humeral shaft. Arthritic change is seen at the elbow joint with no dislocation identified. There is an elbow joint effusion. Soft tissue edema is present around the elbow, greatest dorsally. IMPRESSION: 1. Dorsal soft tissue swelling with no acute fracture clearly identified. 2. Chronic and postsurgical changes as above. 3. There is a nonspecific joint effusion. Although this could potentially be seen with occult fracture, this is considered unlikely in the absence of a trauma history. Clinical correlation will be required. Electronically signed by: Wayne Baez M.D. 08/02/2023 9:52 AM Venous Doppler Study 08/02/23 09:40 US venous doppler UE RT CLINICAL HISTORY: eval for dvt PROCEDURE: Right upper extremity real-time compression venous ultrasound with Duplex and color Doppler imaging. Comparison: None available at the time of this dictation. FINDINGS/IMPRESSION: There is normal compressibility of the deep venous system from the forearm through the subclavian vein. Normal vascular flow is currently identified. No evidence of superficial thrombosis is identified. ACT 112: Negative or not required by law. Electronically signed by: Florin Soto M.D. 08/02/2023 10:56 AM Discharge Plan Visit Data Chief Complaint: Swelling/Edema to Extremity Stated Complaint: RT ARM SWELLING ED Provider: Regis Ruff Discharge Problem: Septic bursitis of elbow Forms Stand Alone Forms: [facility] [employer] Prescriptions Prescriptions: No Action (DME) CPAP Machine Misc See Rx Instructions .MEDSUPPLY Qty: 1 0RF Rx Instructions: CPAP with 7 cm H20 pressure. G47.33 (DME) CPAP Supplies Misc See Rx Instructions .MEDSUPPLY Qty: 1 0RF Rx Instructions: CPAP supplies, ResMed F20 mask, headgear, filters, tubing, water chamber. G47.33 albuterol sulfate 90 mcg/actuation HFA aerosol inhaler 2 puff INHALATION Q4H PRN (Reason: Shortness Of Breath Or Wheezing) Qty: 8.5 3RF guaifenesin [Mucinex] 600 mg tablet extended release 12hr 600 mg PO BID PRN (Reason: congestion) Qty: 60 1RF Rx Instructions: unable to verify not on list from pharmacy Take 1 tab p.o. twice a day for 7 days and then as needed pregabalin [Lyrica] 100 mg Capsule 100 mg PO BID meclizine 12.5 mg tablet 12.5 mg PO TID PRN (Reason: Dizziness) Rx Instructions: unable to verify not on list from pharmacy cyanocobalamin (vitamin B-12) [Vitamin B-12] 1,000 mcg Tablet 1,000 mcg PO QAM atorvastatin [Lipitor] 80 mg tablet 80 mg PO DAILY Qty: 30 0RF aspirin 81 mg Tablet,Delayed Release (Dr/Ec) 81 mg PO QAM Qty: 30 0RF prednisone 20 mg tablet 40 mg PO QAM PRN (Reason: RESCUE KIT) Rx Instructions: RESCUE KIT, TAKE FOR 5 DAYS. bupropion HCl [Wellbutrin SR] 150 mg Tablet Sustained-Release 12 Hr 150 mg PO BID Rx Instructions: per pharmacy list DC on 08/08/23 ondansetron 8 mg Tablet,Disintegrating 8 mg PO Q8H PRN (Reason: Nausea) Rx Instructions: on hold at pharmacy clobetasol 0.05 % Cream 1 applic TOPICAL BID PRN (Reason: Rash) Rx Instructions: unable to verify not on list from pharmacy triamcinolone acetonide 0.1 % Cream 1 applic TOPICAL BID PRN (Reason: Rash) levalbuterol HCl 1.25 mg/3 mL solution for nebulization 1.25 mg INHALATION Q4H PRN (Reason: Wheezing) pantoprazole [Protonix] 40 mg tablet,delayed release (DR/EC) 40 mg PO BID 30 Days Qty: 60 2RF Trelegy Ellipta 200-62.5-25 mcg blister with device 1 inh INHALATION DAILY escitalopram oxalate 10 mg tablet 10 mg PO DAILY Rx Instructions: on hold at pharmacy oxycodone 5 mg Tablet 5 mg PO Q6H PRN (Reason: pain) Qty: 15 0RF Rx Instructions: unable to verify not on list from pharmacy diclofenac sodium [Voltaren Arthritis Pain] 1 % Gel 2 g EXT Q4H PRN (Reason: neck pain) Qty: 100 0RF Rx Instructions: unable to verify not on list from pharmacy baclofen 5 mg tablet 5 mg PO TID PRN (Reason: muscle spasms ) furosemide 40 mg tablet 40 mg PO UD Rx Instructions: On hold at pharmacy 40 mg po qam Referrals Referrals: Ajit Moreno MD [Primary Care Provider] - Discharge Problem: Septic bursitis of elbow Qualifiers: Laterality: right Qualified Code(s): M71.121 - Other infective bursitis, right elbow
--- NOTE | 2023-08-02 09:51 | XRay Report ---
XR chest 1V portable CLINICAL HISTORY: Chest pain, nonspecific COMPARISON STUDY: Chest CT May 12, 2023. Chest radiograph June 13, 2023. FINDINGS: Left shoulder arthroplasty and right humeral internal fixation are partially imaged. There is emphysema. No pneumothorax or pleural effusion is present. Cardiomediastinal silhouette is normal. There is no consolidation to suggest pneumonia. Appearance of the chest is unchanged. Linear left up per lung densities represent atelectasis or scarring. IMPRESSION: No acute cardiopulmonary findings. No significant change in appearance of the chest. ACT 112: Negative or not required by law. Electronically signed by: Jose A Hernandez M.D. 08/02/2023 9:50 AM
--- NOTE | 2023-08-02 09:53 | XRay Report ---
RIGHT ELBOW 3 VIEWS CLINICAL HISTORY: Atraumatic right elbow pain. FINDINGS: 3 views of the right elbow are compared to study dated 10/03/2014. The skeletal structures a re osteopenic. No acute fracture is clearly identified. There is chronic deformity of the radial head with 2 screws/screw fragments in place. A buttress plate is partially visualized along the humeral s haft. Arthritic change is seen at the elbow joint with no dislocation identified. There is an elbow j oint effusion. Soft tissue edema is present around the elbow, greatest dorsally. IMPRESSION: 1. Dorsal soft tissue swelling with no acute fracture clearly identified. 2. Chronic and postsurgical changes as above. 3. There is a nonspecific joint effusion. Although this could potentially be seen with occult fractur e, this is considered unlikely in the absence of a trauma history. Clinical correlation will be requi red. Electronically signed by: Wayne Baez M.D. 08/02/2023 9:52 AM
[2023-08-02] MEDS: methylPREDNISolone 125 MG/2 ML VIAL IV STA (10:06)
[2023-08-02] MEDS: ONDANSETRON INJ 2 MG/ML 2 ML VIAL IV STA (10:06)
[2023-08-02] MEDS: MoRPHine SULFATE 4 MG/ML 1 ML CARP\\VIAL IV STA ×2 (10:06→11:18)
[2023-08-02 10:11] LABS: Basophils # (auto) 0.05 K/uL (0.00-0.20); Basophils % (auto) 0.3 %; Eosinophils # (auto) 0.24 K/uL (0.00-0.50); Eosinophils % (auto) 1.6 %; Hematocrit (blood only) 39.3 % (42.0-52.0); Hemoglobin 13.3 g/dl (14.0-18.0); Immature Granulocytes % (auto) 0.7 %; Lymphocytes # (auto) 1.64 K/uL (1.20-3.40); Lymphocytes % (auto) 11.2 %; Mean Corpuscular Hemoglobin 31.3 pg (25.0-34.0); Mean Corpuscular Hgb Conc 33.8 g/dL (32.0-36.0); Mean Corpuscular Volume 92.5 fL (80.0-100.0); Monocytes # (auto) 1.19 K/uL (0.11-0.59); Monocytes % (auto) 8.1 %; Neutrophils % (auto) 78.1 %; Platelet Count 294 K/uL (130-400); RDW Coefficient of Variation 15.3 % (11.5-14.5); RDW Standard Deviation 51.6 fL (36.4-46.3); Red Blood Count 4.25 M/uL (4.70-6.10); White Blood Count 14.62 K/ul (4.8-10.8)
[2023-08-02 10:27] LABS: Albumin Globulin Ratio 1.5 (0.9-2); Albumin Level 3.6 gm/dl (3.4-5.0); BUN Creatinine Ratio 22.5 (10-20); Bilirubin,Total 0.7 mg/dl (0.2-1.0); Calcium 8.1 mg/dl (8.6-10.3); Est GFR (African American) 105.6 ml/min; Est GFR (Non-African American) 91.1 ml/min; Globulin 2.4 gm/dl (2.5-4.0); Potassium 4.1 mmol/L (3.5-5.1)
[2023-08-02 10:34] LABS: Troponin I High Sensitivity 8.6 pg/ml (0-20)
[2023-08-02 10:38] LABS: Prothrombin Time 11.1 Seconds (9.0-12.0)
--- NOTE | 2023-08-02 10:57 | Ultrasound Report ---
US venous doppler UE RT CLINICAL HISTORY: eval for dvt PROCEDURE: Right upper extremity real-time compression venous ultrasound with Duplex and color Dopple r imaging. Comparison: None available at the time of this dictation. FINDINGS/IMPRESSION: There is normal compressibility of the deep venous system from the forearm through the subclavian vei n. Normal vascular flow is currently identified. No evidence of superficial thrombosis is identified. ACT 112: Negative or not required by law. Electronically signed by: Florin Soto M.D. 08/02/2023 10:56 AM
--- NOTE | 2023-08-02 10:58 | Electrocardiogram Report ---
Test Reason : Blood Pressure : / mmHG Vent. Rate : 072 BPM Atrial Rate : 072 BPM P-R Int : 164 ms QRS Dur : 078 ms QT Int : 388 ms P-R-T Axes : 063 023 019 degrees QTc Int : 424 ms Normal sinus rhythm Nondiagnostic inferior Q waves Abnormal ECG When compared with ECG of 14-JUN-2023 08:24, No significant change Confirmed by Roshan Hall ([id number]) on 08/02/2023 10:58:18 AM Referred By: REFERRED SELF Confirmed By:Roshan Hall
[2023-08-02] MEDS: LIDOCAINE 1% LOCAL 20 ML VIAL INJ ONE (11:19)
--- OUTSIDE RECORDS SUMMARY | 2023-08-02 12:14 | External Medical Summary | Summary of Care ---
Author Name Unknown Organization [facility] Address [address] [place] [address] Phone [phone] Care Team Providers Care S3B Multi Sensor Operator Name Role Phone Ajit Moreno MD Primary Care Provider [phone] Reason for Visit * Reason Onset Date Comments Med Request 07/29/2023 Encounter Details Date Type Department Care Team (Late st Contact Info) Description 07/29/[address] [facility] [address] [place] [address] JuneAjit MD [address] [place] [address] Med Request Allergies Active Allergy Reactions Criticality Noted Date Comments Fluticasone High 02/27/2020 Other reaction(s): lightheadedness and nausea Umeclidinium High 02/27/2020 Other reaction(s): lightheadedness and nausea Vilanterol High 02/27/2020 Other reaction(s): lightheadedness and nausea documented as of this encounter (statuses as of 07/30/2023) Medications Medication Sig Dispensed Refills Start Date End Date Status Respiratory Therapy Supplies (NEBULIZER/TUBING/MO UTHPIECE) KIT Use as directed 1 Kit 5 07/06/2018 Active Clobetasol Propionate 0.05 % External Ointment (Temovate)Indication s:Stasis dermatitis of both legs Apply 2x daily to rash on legs until resolved, then as needed when flaring 60 g 08/27/2021 Active Naproxen 500 MG Oral Tablet [...] 1 Tablet by mouth in the morning. Active Atorvastatin Calcium 80 MG Oral Tablet (Lipitor)Indications :Atherosclerosis of aorta (HCC) Take 1 Tablet by mouth in the morning. 90 Tablet 2 06/09/2023 Active Escitalopram Oxalate 10 MG Oral Tablet (Lexapro)Indications :Mood swings Take 1 Tablet by mouth in the morning. 90 Tablet 2 06/09/2023 Active Levalbuterol HCl 1.25 MG/3ML Inhalation Nebulization Solution (Xopenex)Indications :COPD, group C, by GOLD 2017 classification ([facility]) Inhale 1 Ampule via nebulizer every 4 hours as needed for Wheezing. 72 mL 06/09/2023 Active Pantoprazole Sodium 40 MG Oral Tablet Delayed Release (Protonix)Indication s:Gastroesophageal reflux disease with esophagitis, unspecified whether hemorrhage Take 1 Tablet by mouth in the morning and 1 Tablet before bedtime. 180 Tablet 1 06/09/2023 Active Trelegy Ellipta 200-62.5-25 MCG/ACT Aerosol Powder Breath Activated (Fluticasone-Umeclid inium-Vilanterol)Ind ications:COPD, group C, by GOLD 2017 classification ([facility]) Inhale 1 Puff by mouth in the morning. 60 Blister Dosing Unit 10 06/09/2023 Active Furosemide 40 MG Oral Tablet (Lasix)Indications:B ilateral lower extremity edema Take 1 Tablet by mouth in the morning. for fluid accumulation or weight gain. 20 Tablet 06/13/2023 Active Additional Information Patient taking differently:40 mg OralDAILY PRN, Other, wt gain or edema, for fluid accumulation or weight gain, Reported on 06/23/2023 LORazepam 0.5 MG Oral Tablet (Ativan)Indications: Anxiety Take 1 Tablet by mouth every 6 hours as needed for Agitation. 20 Tablet 06/13/2023 Active Ondansetron HCl 8 MG Oral Tablet (Zofran)Indications: Nausea without vomiting Take 1 Tablet by mouth every 8 hours as needed for Nausea. 20 Tablet 06/13/2023 Active Triamcinolone Acetonide 0.1 % External [...] or wheezing 8.5 g 5 06/09/2023 Active oxyCODONE HCl 5 MG Oral Tablet (Oxy IR) Take 1 Tablet by mouth every 6 hours as needed. 06/16/2023 Active buPROPion HCl ER (SR) 150 MG Oral Tablet Extended Release 12 Hour (Wellbutrin SR)Indications:Adjus tment disorder with depressed mood TAKE ONE TABLET BY MOUTH IN THE MORNING AND ONE BEFORE BEDTIME Discontinue on August 08 2023 84 Tablet 06/20/2023 Active predniSONE 20 MG Oral Tablet (Deltasone) Take 2 Tablets by mouth daily as needed (copd exacerbation). X 5 days when directed Active Azithromycin 250 MG Oral Tablet (Zithromax Z-Miguelito) Take 1 Tablet by mouth in the morning. Take 2 tabs on day one then 1 tab daily on day 2-5 for copd rescue kit. Active Pregabalin 100 MG Oral Capsule (Lyrica)Indications: Chronic pain syndrome Take 1 Capsule by mouth in the morning and 1 Capsule before bedtime. 60 Capsule 2 06/28/2023 Active Baclofen 5 MG Oral Tablet (Lioresal) Take 1 Tablet by mouth 3 times a day as needed for Muscle spasms. 30 Tablet 1 07/18/2023 Active predniSONE 20 MG Oral Tablet (Deltasone)Indicatio ns:COPD, group C, by GOLD 2017 classification ([facility]) Take 2 Tablets by mouth in the morning for 5 days. 10 Tablet 07/30/2023 4 Active documented as of this encounter (statuses as of 07/30/2023) Active Problems Problem Noted Date Diagnosed Date Severe obesity (BMI 35.0-39.9) with comorbidity 05/27/2023 Food insecurity 05/16/2023 Overview: Per [facility] Protocol Personal history of other venous thrombosis and embolism 03/21/2023 Overview: historical Dyslipidemia, goal LDL below 70 06/01/2022 Adjustment disorder with depressed mood 06/02/19 23 Last Assessment & Plan: Mood stable today on current dose lexapro Senile osteoporosis 06/10/2021 Pulmonary emphysema 02/01/2019 Chronic pain syndrome 09/20/2018 Last Assessment & Plan: Continue lyrica Will add baclofen for prn use short term Did have interventional pain appt, but did not follow through COPD, group C, by GOLD 2017 classification 07/17 Overview: Per COPD GOLD Classification Last Assessment & Plan: "RED FLAG" COPD symptoms: Increased dyspnea on exertion ("I can't walk to the kitchen or up the stairs without coughing and wheezing", "My chest feels tight any time I move") Increased shortness of breath at rest ("I struggle to breathe even when watching TV", "I have to wear or turn up my oxygen just when I'm sitting on the couch") Cough ("I get a different kind of cough than what I' have every day") Medication Regimen All Classes - YA Class D - Inhaled Jubocbewikvpzc-SSGH-MVIX Combination Inhaler (Cliffllegy) Remote Patient Monitoring Vendor: No Connected RPM Device(s): No current devices Self-Management plan Prednisone 40mg daily for 5 days Rx Oral Antibiotic Rx (see medication list) High frequency nebulizer treatments every 4-6 hours around the clock Exacerbation plan Solumedrol 40mg IM/IV Chest Xray Additional Comments: Advised to use routine nebs for next few days If breathing does not improve, can start rescue kit Continue trelegy Atherosclerosis of aorta 01/05/2018 Controlled substance agreement signed 02/05/2015 Obstructive sleep apnea 08/23/2014 Overview: Split night pending 2002 PSG -- mild [facility] Obesity, Class I, BMI 30.0-34.9 (see actual BMI) 04/08/2011 Overview: bmi= 32.58 04/08/11 Tobacco use disorder 04/08/2011 Gastroesophageal reflux disease with esophagitis 03/06/2002 Hiatal hernia 03/29/2001 documented as of this encounter (statuses as of 07/30/2023) Resolved Problems Problem Noted Date Diagnosed Date [...] LUNG, NOT ELSEWHERE CLASSIFIED 06/12/2002 09/14/2018 CHEST HIDEXHAU-JBSA-DTCM 04/09/200209/2018 ABN FD-INTRATHOR ORG NEC-akbar nodule 03/06/2002 [...] as of this encounter (statuses as of 07/30/2023) Immunizations Name Administration Dates Next Due COVID-19 mRNA, LNP-s, No Pre serve, 2-Dose Series (SlideRocket) 05/22/2020,05/01/2020 Seasonal Influenza, PF, 6 M & above, IM , (FluLaval or Fluzone) 10/26/2019,12/22/2018,12/28/2017 Seasonal Influenza, Quadriva lent Hd (Fluzone Hd) 01/08/2022 documented as of this encounter Social History Tobacco Use Types Packs/Day Years Used Date Smoking Tobacco: Every Day Cigarettes 0.5 45.3 Started: 03/19/2003 Passive Smoke Exposure: Past Smokeless Tobacco: Never Comments:began at age 8, amadneep asif tried to quit 2003, currently one [...] have money to get more. Sometimes true Childcare Answer Date Recorded Do you feel overwhelmed with taking care of a child, family member or friend? No 04/26/2023 Does your family need help f inding childcare? (Household - for ages 0-17 years) Not on file 04/26/2023 Clothing Answer Date Recorded Have you been unable to get clothing when it was really needed? No 04/26/2023 Is your family able to get c lothes or diapers when needed? (Household - for ages 0-17 years) Not on file 04/26/2023 Personal Safety Answer Date Recorded Do you feel unsafe or have concerns for your saf ety? No 04/26/2023 Do you have concerns for you r family's safety? (Household - for ages 0-17 years) Not on file 04/26/2023 Utilities Answer Date Recorded Do you have trouble paying y our heating, water, or electric bill? Yes 04/26/2023 Is your family able to pay t he heat, water, or electric bill? (Household - for ages 0-17 years) Not on file 04/26/2023 Does your family have access to good internet? (Household - for ages 0-17 years) Not on file 04/26/2023 Employment Status Answer Date Recorded Are you unemployed or without regular income? No 04/26/2023 Does the household have a re gular source of income? (Household - for ages 0-17 years) Not on file 04/26/2023 Social Connections Answer Date Recorded How often do you feel lonely or isolated from th ose around you? Never 04/26/2023 Financial Resource Strain Answer Date R ecorded Do you have any trouble payi ng for your medications, or do you think you might in the future? No 04/26/2023 Does your family have troubl e paying for medicine? (Household - for ages 0-17 years) Not on file 04/26/2023 Transportation Needs Answer Date Record ed READ ONLY Do you have troubl e getting a ride to medical visits or work? Never True 04/26/2023 Does your family have a hard time getting a ride to doctors visits? (Household - for ages 0-17 years) Not on file 04/26/2023 Has lack of transportation k ept you from medical appointments, meetings, work, or from getting things needed for daily living? Check all that apply. (Adult - for ages 18 years and over) Not on file 04/26/2023 Do you (or your family) have trouble finding or paying for a ride (transportation)? (Household - for ages 0-17 years) Not on file 04/26/2023 Housing Stability Answer Date Recorded Do you currently live in a s helter or have no steady place to sleep at night? No 04/26/2023 READ ONLY Do you think you a re at risk of becoming homeless? No 04/26/2023 Does your family worry about paying for your home or becoming homeless? (Household - for ages 0-17 years) Not on file 0 04/26/2023 Are you homeless or worried that you might be in the future? (Adult - for ages 18 years and over) Not on file Are you (or your family) priscilla eless or worried that you might be in the future? (Household - for ages 0-17 years) Not on file Food Insecurity Answer Date Recorded Do you need food for this week? Yes 04/26/2023 Are you able to get enough f ood for your family? (Household - for ages 0-17 years) Not on file 04/26/2023 Does your family need food t his week? (Household - for ages 0-17 years) Not on file 04/26/2023 Do you always have enough fo od for your family? (Household - for ages 0-17 years) Not on file 04/26/2023 Sex and Gender Information Value Date Recorded Sex Assigned at Not on file Gender Identity Male 08/31/2021 1:16 PM EDT Sexual Orientation Straight 07/05/2018 9: 33 AM EDT Job Start Date Occupation Industry Not on file Not on file Not on file documented as of this encounter Miscellaneous Notes * Telephone Encounter - Ajit Moreno MD - 07/30/2023 1:33 PM EDT Rx sent to [facility]. Needs seen in office if symtpoms are worsening. Ajit Moreno MD * Telephone Encounter - Gayle Uribe PHARM Tech - 07/29/2023 10:26 AM EDT Pt is having a copd flare up. calling requesting the following medication below that is listed as "Historical". The following information was provided: Medication Name: predniSONE 20 MG Oral Tablet (Deltasone) Directions: Take 2 Tablets by mouth daily as needed (copd exacerbation). X 5 days when directed Previous Prescriber: Dr. Moreno Preferred Pharmacy: [address] Medication Name: Azithromycin 250 MG Oral Tablet (Zithromax Z-Miguelito) Directions: Take 1 Tablet by mouth in the morning. Take 2 tabs on day one then 1 tab daily on day 2-5 for copd rescue kit Previous Prescriber: Dr. Moreno Preferred Pharmacy: [address] Please review and approve if appropriate. Thanks, Gayle Uribe Receptionist Clerk [facility] 07/29/2023,10:26 AM documented in this encounter Plan of Treatment Upcoming Encounters Date Type Department Care Team (Late st Contact Info) Description 08/03/2023 11:20 AM EDT Office Visit [address] [address] [facility] [address] [facility] [address] 08/05/2023 4:00 PM EDT [facility] [address] [place] [id number] Rosa Parra RN [address] [place] [address] Scheduled Procedures Name Priority Associated Diagnoses Date/Ti me COLONOSCOPY FLEXIBLE PROXIMAL DIAGNOSTIC Recall History of colon polyps Health Maintenance Due Date Last Done Comments DISCUSS TOBACCO CESSATION (REFER TO SMARTSET #[id number]) 1955 Pneumococcal Vaccine: 65+ Years (1 of [...] ASSESSMENT COMPLETED IN PAST YEAR FOR COPD 06/22/2024 06/23/2023 Diabetes Screening 01/11/2025 01/11/2022, 1 04/05/2020, 07/03/2020, Additional history exists Colonoscopy 03/18/2026 03/18/2021, 020 10/2021, 12/18/2019, Additional history exists Colorectal Cancer Screening 03/18/2026 Hepatitis C Screening Completed 05/31/2017 , 08/07/2015, 05/03/2014 RETIRED - COLONOSCOPY-ANNUAL AGES 18-100 Discontinued 03/18/2021, 03/18/2021, 12/18/2019, Additional history exists RETIRED - COLONOSCOPY-EVERY 5 YRS AGES 18-100 Discontinued 03/18/2021, 03/18/2021, 12/18/2019, Additional history exists VITAMIN D LEVEL ONCE IN A LIFETIME-USE SMARTSET# [id number] Completed 06/16/2021, 05/03/2014 Lung Cancer Screening Completed 06/20/2023 , 11/08/2016, 11/03/2016, Additional history exists GARDASIL-HPV IMMUNIZATION SERIES Aged Out No longer [...] Primary documented in this encounter Advance Directives * Full Code (Latest Code Status on File) Date Activated Date Inactivated Comments 05/30/2017 8:27 AM 05/30/2017 1:32 PM This order r eflects the patients wishes and were consensually agreed upon. * Full Code Date Activated Date Inactivated Comments 05/30/2017 8:17 AM 05/30/2017 8:27 AM This order r eflects the patients wishes and were consensually agreed upon. * No Code Status Date Activated Date Inactivated Comments 05/09/2003 9:12 AM 05/09/2003 10:12 AM Care Teams S3B Multi Sensor Operator Relationship Specialty Start Date End Date June, Ajit Sylvetser MD [address] [place] [facility] [place] [id number] PCP - General Family Medicine 03/11/22 documented as of this encounter
--- OUTSIDE RECORDS SUMMARY | 2023-08-02 12:15 | External Medical Summary | Summary of Care ---
Author Name Unknown Organization [facility] Address [address] [place] [address] Phone [phone] Care Team Providers Care Wholesale Agronomist Name Role Phone Ajit Moreno MD Primary Care Provider [phone] Reason for Visit * Reason Comments [facility]: Enrollment Encounter Details Date Type Department Care Team (Late st Contact Info) Description 06/23/2023 12:30 PM EDT [facility] Visit [facility], [facility] [address] [facility] [place] [address] Rosa Parra RN [address] [place] [address] Allergies Active Allergy Reactions Criticality Noted Date Comments Fluticasone High 02/27/2020 Other reaction(s): lightheadedness and nausea Umeclidinium High 02/27/2020 Other reaction(s): lightheadedness and nausea Vilanterol High 02/27/2020 Other reaction(s): lightheadedness and nausea documented as of this encounter (statuses as of 06/30/2023) Medications Medication Sig Dispensed Refills Start Date End Date Status Respiratory Therapy Supplies (NEBULIZER/TUBING/M OUTHPIECE) KIT Use as directed 1 Kit 5 9 Active Clobetasol Propionate 0.05 % External Ointment (Temovate)Indicatio ns:Stasis dermatitis of both legs Apply 2x daily to rash on legs until resolved, then as needed when flaring 60 g 2 Active Naproxen 500 MG Oral Tablet [...] the morning. 90 Tablet 2 4 Active Escitalopram Oxalate 10 MG Oral Tablet (Lexapro)Indication s:Mood swings Take 1 Tablet by mouth in the morning. 90 Tablet 2 4 Active Levalbuterol HCl 1.25 MG/3ML Inhalation Nebulization Solution (Xopenex)Indication s:COPD, group C, by GOLD 2017 classification ([facility]) Inhale 1 Ampule via nebulizer every 4 hours as needed for Wheezing. 72 mL 4 Active Pantoprazole Sodium 40 MG Oral Tablet Delayed Release (Protonix)Indicatio ns:Gastroesophageal reflux disease with esophagitis, unspecified whether hemorrhage Take 1 Tablet by mouth in the morning and 1 Tablet before bedtime. 180 Tablet 1 4 Active Trelegy Ellipta 200-62.5-25 MCG/ACT Aerosol Powder Breath Activated (Fluticasone-Umecli dinium-Vilanterol)I ndications:COPD, group C, by GOLD 2017 classification ([facility]) Inhale 1 Puff by mouth in the morning. 60 Blister Dosing Unit 10 4 Active Furosemide 40 MG Oral Tablet (Lasix)Indications: Bilateral lower extremity edema Take 1 Tablet by mouth in the morning. for fluid accumulation or weight gain. 20 Tablet 4 Active Additional Information Patient taking differently:40 mg OralDAILY PRN, Other, wt gain or edema, for fluid accumulation or weight gain, Reported on 06/23/2023 LORazepam 0.5 MG Oral Tablet (Ativan)Indications :Anxiety Take 1 Tablet by mouth every 6 hours as needed for Agitation. 20 Tablet 4 Active Ondansetron HCl 8 MG Oral Tablet (Zofran)Indications :Nausea without vomiting Take 1 Tablet by mouth every 8 hours as needed for Nausea. 20 Tablet 4 Active Triamcinolone Acetonide 0.1 % External Ointment (Aristocort)Indicat ions:Stasis dermatitis of both legs Apply 2x daily to rash on lower legs when flaring (see printed checkout sheet) 80 g 2 4 Active Cyanocobalamin 1000 MCG Oral Tablet (Cyanocobalamin) Take 1 Tablet by mouth in the morning. 90 Tablet 3 4 Active Albuterol Sulfate HFA 108 (90 Base) MCG/ACT Inhalation Aerosol SolutionIndications :Pulmonary emphysema, unspecified emphysema type (HCC) INHALE TWO PUFFS BY MOUTH EVERY 4 HOURS NEEDED FOR SHORTNESS OF BREATH or wheezing 8.5 g 5 4 Active Baclofen 5 MG Oral Tablet (Lioresal) Take 1 Tablet by mouth in the morning and 1 Tablet at noon and 1 Tablet before bedtime. 4 Active oxyCODONE HCl 5 MG Oral Tablet (Oxy IR) Take 1 Tablet by mouth every 6 hours as needed. 4 Active buPROPion HCl ER (SR) 150 MG Oral Tablet Extended Release 12 Hour (Wellbutrin SR)Indications:Adju stment disorder with depressed mood TAKE ONE TABLET BY MOUTH IN THE MORNING AND ONE BEFORE BEDTIME Discontinue on August 08 2023 84 Tablet 4 Active predniSONE 20 MG Oral Tablet (Deltasone) Take 2 Tablets by mouth daily as needed (copd exacerbation). X 5 days when directed Active Azithromycin 250 MG Oral Tablet (Zithromax Z-Miguelito) Take 1 Tablet by mouth in the morning. Take 2 tabs on day one then 1 tab daily on day 2-5 for copd rescue kit. Active Pregabalin 100 MG Oral Capsule (Lyrica)Indications :Chronic pain syndrome Take 1 Capsule by mouth in the morning and 1 Capsule before bedtime. 60 Capsule 4 06/27/19 24 Discontinu ed(Refill) documented as of this encounter (statuses as of 06/30/2023) Active Problems Problem Noted Date Diagnosed Date [...] as of this encounter (statuses as of 06/30/2023) Resolved Problems Problem Noted Date Diagnosed Date [...] LUNG, NOT ELSEWHERE CLASSIFIED 06/12/2002 09/14/2018 CHEST [id number] 04/09/200209/2018 ABN FD-INTRATHOR ORG NEC-akbar nodule 03/06/2002 [...] as of this encounter (statuses as of 06/30/2023) Immunizations Name Administration Dates Next Due COVID-19 mRNA, LNP-s, No Pre serve, 2-Dose Series (Pfizer) 05/22/2020,05/01/2020 Seasonal Influenza, PF, 6 M & above, IM , (FluLaval or Fluzone) 10/26/2019,12/22/2018,12/28/2017 Seasonal Influenza, Quadriva lent Hd (Fluzone Hd) 01/08/2022 documented as of this encounter Social History Tobacco Use Types Packs/Day Years Used Date Smoking Tobacco: Every Day Cigarettes 0.5 45.2 Started: 03/19/2003 Passive Smoke Exposure: Past Smokeless Tobacco: Never Comments:began at age 8, [place] tried to quit 2003, currently one cigarette [...] Sign Reading Time Taken Comments Blood Pressure 116/64 06/23/2023 3:07 PM EDT Pulse 88 06/23/2023 3:07 PM EDT Temperature 36.9 C (98.5 F) 06/23/2023 3:07 PM ED T Respiratory Rate 18 06/23/2023 3:07 PM EDT Oxygen Saturation 96% 06/23/2023 3:07 PM EDT Inhaled Oxygen Concentration - - Weight - - Height - - Body Mass Index - - documented in this encounter Progress Notes * Rosa Parra RN - 06/23/2023 11:58 AM EDT [facility] Surgeon Visit Date: 06/23/2023 Time: 11:58 AM Name: Florentin Franks : 1955 Current Concerns: Pt seen for enrollment to [facility] and [facility] Admitted to [facility] 05/17 - 05/19 for COPD exacerbation, CHF, Acute Bronchitis Then admitted again 06/12 - 06/15 for neck pain, muscle spasm/sprain He reports he got injections while hospitalized and it is much improved Pain now is 04/16, constant, but is not taking anything for pain He is able to move his neck better now Reports breathing is at baseline Denies cough Does have a nebulizer but reports he does not use it much Had a sleep study done recently - waiting to hear result - reports he snores and also has apnea Physical Exam: BP 116/64 | Pulse 88 | Temp 36.9 C (98.5 F) | Resp 18 | SpO2 96% Pain 3 Physical Exam Constitutional: General: He is not in acute distress. Cardiovascular: Rate and Rhythm: Normal rate and regular rhythm. Pulses: Normal pulses. Heart sounds: Normal heart sounds. Pulmonary: Effort: Pulmonary effort is normal. Comments: Lung sounds diminished at bases Abdominal: General: Bowel sounds are normal. Palpations: Abdomen is soft. Skin: General: Skin is warm and dry. Neurological: Mental Status: He is alert and oriented to person, place, and time. Problems/Symptoms: Review of Systems Constitutional: Negative. HENT: Negative. Eyes: Negative. Respiratory: Positive for shortness of breath (YAO -at baseline). Gastrointestinal: Negative. Genitourinary: Negative. Musculoskeletal: Positive for neck pain and neck stiffness. Skin: Negative. Neurological: Negative. Psychiatric/Behavioral: Negative. Medication Reconciliation: (See medication list) Does patient take medications as ordered: Yes Patient Well Being: PHQ2/9: No questionnaires available. Lives with , dog, and multiple cats in 2 story home Independent with ambulation Still drives and likes to go out and go fishing [facility]-10 Completed this Visit: Yes. [facility]-10: Reason Completed: Enrollment Status post ED visit/hospital admission [facility]-10 ([facility]) Fall Risk Assessment Tool Age 65+: Yes (06/30/231099) Diagnosis (3 or more co-existing): Yes (06/30/231099) Prior history of falls within 3 months: No (06/30/231099) Incontinence: No (06/30/231099) Visual impairment: No (06/30/231099) Impaired functional mobility: No (06/30/231099) Environmental hazards: No (06/30/231099) Poly Pharmacy (4 or more prescriptions - any type): Yes (06/30/231099) Pain affecting level of function: No (06/30/231099) Cognitive impairment: No (06/30/231099) Score - a score of 4 or more is considered at risk for fallin (06/30/231099) [facility]-10 Interventions: Fall education provided, reviewed/provided Fall brochure Advanced Care Planning: No documentation, currently working on living will with . Patient's Goals of Care: Keep fishing Be able to work a little Live longer Reinforcement/Education: COPD: Pt instructed to: -Call with increased SOB, wheezing, chest tightness, increased cough, increased sputum with change in color or consistency and fever. -Wash hands often -Drink plenty of fluids -Use inhalers as directed, do not stop or skip doses -Avoid stress -Rest when tired or SOB -Avoid triggers -Clean inhalers once a week Educated on home safety: Create a fall proof home Clear floors of clutter, loose wires, throw rugs, and cords. Make sure halls, stairways, and entrances are well lit. Install a nightlight in your bedroom, hallway and bathroom. Install grab bars or handrails in the bathroom and on stairs. Use a non-skid tub/shower mat. Avoid climbing on a chair; instead use a step stool with a high handrail. Keep sidewalks and steps in good repair Keep steps and sidewalks free of snow and ice. Using aids to support and prevent falls If you have poor balance or have fallen in the past, consider additional support such as a cane or walker. Use a cane with good support and that is the proper length for you. Use a walker if a cane doesnt provide enough support. Avoid medications that increase the risk of falling by causing dizziness, change in sensation or slowed reflexes. Certain medicines may cause falls - blood pressure pills, heart medicines, water pills, or sleepingpills. Be sure to understand each medicine that you are taking and any side effects that may occur. Improve your balance and flexibility with muscle strengthening exercises. Ask your health care provider for some exercises that will be right for you. Reinforced safety education and fall prevention. and Reinforced medication regimen. Timing., Dosing., and Purspose. Treatment/Plan: Continue meds as prescribed/reviewed Use nebulizer every 4 hours as needed Rescue kit on hand for prn use Keep all appts as scheduled and attend Personal Computer Specialist is SWATH[facility]-Dr Irwin- next appt 10/31/23 Home Interventions Provided: Home Intervention: Other; eval Reinforced current Plan of Care, including self-management and medication regimen Updated Exacerbation Plan Patient's 'Red Flags': Worsening SOB - short winded Chest gets tight Dark colored mucus Patient Needs to Remember: Call [facility] at with any new or worsening health concerns or problems, red flag symptoms. Referrals Needed: Other none Follow Up: Is there cellular connectivity/connectivity in the home? Yes Does the patient have internet in the home? Yes Patient encouraged to call the intake phone number for all urgent but not emergent issues. Is the patient new to [facility] within the last 30 days? Yes, Is this a Transitions of Care visit? Yes, this is the 2nd visit or later, Yes cellular connectivity. Was their Readmission Risk Score less than 18%? Yes Does the patient have any active signs of an exacerbation? No Has the patient had any ED visits since being discharged? No, Please forward to [facility] for telehealth scheduling, and indicate appropriate week of Transition of Care. Provider is in agreement with Plan of Care: Yes Scheduled to follow up with patient in 3 weeks with provider, 3 weeks after with RNCM . Rosa Parra RN 06/23/2023 11:58 AM documented in this encounter Plan of Treatment Upcoming Encounters Date Type Department Care Team (Late st Contact Info) Description 07/18/2023 9:00 AM EDT [facility] [place] [address] [facility] [place] [address] Ajit Marin PA-C [address] [place] [address] 08/03/2023 11:20 AM EDT Office Visit [facility] [address] [facility] [place] [phone] Ajit Moreno MD [address] [place] [address] 08/05/2023 4:00 PM EDT [facility] [address] [place] [address] Rosa Parra RN [address] [facility] [place] [address] Scheduled Procedures Name Priority Associated Diagnoses Date/Ti me COLONOSCOPY FLEXIBLE PROXIMAL DIAGNOSTIC Recall History of colon polyps Health Maintenance Due Date Last Done Comments DISCUSS TOBACCO CESSATION (REFER TO SMARTSET #1261) 1955 Pneumococcal Vaccine: 65+ Years (1 of [...] (3 - 2022- season) 2022 05/22/2020, 05/01/2020 DXA [...] D LEVEL ONCE IN A LIFETIME-USE SMARTSET# 82580 Completed 06/16/2021, 05/03/2014 Lung Cancer Screening Completed [...] filedocumented as of this encounter Advance Directives * Full Code [...] 9:12 AM 05/09/2003 10:12 AM Care Teams Wholesale Agronomist Relationship Specialty Start Date End Date June, Ajit Sylvester MD [address] [place] [address] PCP - General Family Medicine 03/11/22 documented as of this encounter
--- OUTSIDE RECORDS SUMMARY | 2023-08-02 12:15 | External Medical Summary | Summary of Care ---
Author Name Unknown Organization [facility] Address [address] [place] [address] Phone [phone] Care Team Providers Care Rag Sorter And Cutter Name Role Phone Henry Bush MD Primary Care Provider Reason for Visit * Reason Onset Date Comments Medication Refill 06/27/2023 Encounter Details Date Type Department Care Team (Late st Contact Info) Description 06/27/2023 Refill [facility] [address] [place] [address] JuneHenry MD [address] [place] [address] Chronic pain syndrome Allergies Active Allergy Reactions Criticality Noted Date Comments Fluticasone High 02/27/2020 Other reaction(s): lightheadedness and nausea Umeclidinium High 02/27/2020 Other reaction(s): lightheadedness and nausea Vilanterol High 02/27/2020 Other reaction(s): lightheadedness and nausea documented as of this encounter (statuses as of 06/28/2023) Medications Medication Sig Dispensed Refills Start Date [...] s:COPD, group C, by GOLD 2017 classification ([facility]) Inhale 1 Ampule via nebulizer every [...] ndications:COPD, group C, by GOLD 2017 classification ([facility]) Inhale 1 Puff by mouth in [...] 1 Capsule before bedtime. 60 Capsule 2 4 Active Pregabalin 100 MG Oral Capsule (Lyrica)Indications :Chronic pain syndrome Take 1 Capsule by mouth in the morning and 1 Capsule before bedtime. 60 Capsule 4 06/27/19 24 Discontinu ed(Refill) documented as of this encounter (statuses as of 06/28/2023) Active Problems Problem Noted Date Diagnosed Date [...] as of this encounter (statuses as of 06/28/2023) Resolved Problems Problem Noted Date Diagnosed Date [...] LUNG, NOT ELSEWHERE CLASSIFIED 06/12/2002 09/14/2018 CHEST [id number] 04/09/200209/2018 ABN FD-INTRATHOR ORG NEC-akbar nodule 03/06/2002 [...] as of this encounter (statuses as of 06/28/2023) Immunizations Name Administration Dates Next Due COVID-19 [...] encounter Miscellaneous Notes * Telephone Encounter - JuneHenry MD - 06/28/2023 5:41 PM EDTSigned Prescriptions: Disp Refills Pregabalin 100 MG Oral Capsule (Lyrica) 60 Cap*2 Sig: Take 1 Capsule by mouth in the morning and 1 Capsule before bedtime.Authorizing Provider: HENRY BUSH------ * Telephone Encounter - Liane Don [facility] - 06/28/2023 3:06 PM EDT Pending Prescriptions: Disp Refills Pregabalin 100 MG Oral Capsule (Lyrica) 60 Cap*2 Sig: Take 1 Capsule by mouth in the morning and 1 Capsule before bedtime. * Telephone Encounter - Liane Don [facility] - 06/28/2023 3:06 PM EDT I have reviewed the patients controlled substance dispensing history in the Prescription Drug Monitoring Program in compliance with the [facility] regulations before prescribing a controlled substance. PDMP checked on 06/28/2023. Pending Prescriptions: Disp Refills Pregabalin 100 MG Oral Capsule (Lyrica) 60 Cap*0 Sig: Take 1 Capsule by mouth in the morning and 1 Capsule before bedtime. Last Visit: 06/20/2023 (in office), Visit date not found (telemedicine) Next Visit: 08/03/2023 Date medication was last filled: 06/27/23 Date medication is due for refill: 07/02/23 Pharmacy: [address] Is this request for a controlled [...] Results Review. Please approve if appropriate. Thanks, Liane Don [facility] Clinical Pharmacist [facility] ([facility]) (Formerly Telepharmacy) [phone] * Telephone Encounter - Javier Navarro, material chaser - 06/27/2023 12:52 PM EDT Did you pend patient's preferred pharmacy and medication before forwarding?yes Pharmacy: [facility] [address] Pending Prescriptions: Disp Refills Pregabalin 100 MG Oral Capsule (Lyrica) 60 Cap*0 Sig: Take 1 Capsule by mouth in the morning and 1 Capsule before bedtime. Last Visit: 06/20/2023 (in office), Visit date not found (telemedicine) Next Visit: 08/03/2023 If no future appointments scheduled, and last appointment is greater than a year ago, please schedule patient for a follow-up appointment Last date the medication was ordered: 06/13/23 Is this request for a controlled substance?Yes, What was the last refill date 06/13/23 w/ quantity 60 and dosage 100mg and Urine Drug Screen was completed Urine Drug Screen: Results for orders placed [...] Description 07/18/2023 9:00 AM EDT Home Visit [facility] [address] [place] [address] Henry Marin PA-C [address] [facility] [place] [address] 08/03/2023 11:20 AM EDT [facility] [address] [facility] [id number] Henry Bush [facility] [address] [facility] [address] 08/05/2023 4:00 PM EDT Home Visit [facility] [address] [facility] [place] [address] Rosa Parra, RN [address] [place] [address] Scheduled Procedures Name Priority Associated Diagnoses Date/Ti [...] D LEVEL ONCE IN A LIFETIME-USE SMARTSET# [id number] Completed 06/16/2021, 05/03/2014 Lung Cancer Screening Completed [...] syndrome documented in this encounter Advance Directives * [...] 9:12 AM 05/09/2003 10:12 AM Care Teams Rag Sorter And Cutter Relationship Specialty Start Date End Date June, Henry Sylvester MD [address] [place] [address] PCP - General Family Medicine 03/11/22 documented as of this encounter
--- OUTSIDE RECORDS SUMMARY | 2023-08-02 12:15 | External Medical Summary | Summary of Care ---
Author Name Unknown Organization [facility] Address [address] [place] [address] Phone [phone] Care Team Providers Care Black Leather Trimmer Name Role Phone Ajit Moreno MD Primary Care Provider [phone] Encounter Details Date Type Department Care Team (Late st Contact Info) Description 07/18/2023 9:00 AM EDT Home Visit [facility] [address] [place] [address] Ajit Marin PA-C [address] [place] [address] COPD, group C, by GOLD 2017 classification ([facility])*; Chronic pain syndrome; Adjustment disorder with depressed mood; Advanced care planning/counseling discussion Allergies Active Allergy Reactions Criticality Noted Date Comments Fluticasone High 02/27/2020 Other reaction(s): lightheadedness and nausea Umeclidinium High 02/27/2020 Other reaction(s): lightheadedness and nausea Vilanterol High 02/27/2020 Other reaction(s): lightheadedness and nausea documented as of this encounter (statuses as of 07/18/2023) Medications Medication Sig Dispensed Refills Start Date [...] or wheezing 8.5 g 5 4 Active oxyCODONE HCl 5 MG Oral [...] before bedtime. 60 Capsule 2 4 Active Baclofen 5 MG Oral Tablet (Lioresal) Take 1 Tablet by mouth 3 times a day as needed for Muscle spasms. 30 Tablet 1 4 Active Baclofen 5 MG Oral Tablet (Lioresal) Take 1 Tablet by mouth in the morning and 1 Tablet at noon and 1 Tablet before bedtime. 4 07/18/19 24 Discontinu ed(Refill) documented as of this encounter (statuses as of 07/18/2023) Active Problems Problem Noted Date Diagnosed Date [...] Classes - YA Class D - Inhaled Pdxjxuugbqoguj-YQUY-ITYD Combination Inhaler (Tejinder) Remote Patient Monitoring Vendor: No Connected RPM [...] as of this encounter (statuses as of 07/18/2023) Resolved Problems Problem Noted Date Diagnosed Date [...] LUNG, NOT ELSEWHERE CLASSIFIED 06/12/2002 09/14/2018 CHEST [id number] 04/09/200209/2018 ABN FD-INTRATHOR ORG NEC-akbar nodule 03/06/2002 [...] as of this encounter (statuses as of 07/18/2023) Immunizations Name Administration Dates Next Due COVID-19 [...] as of this encounter Progress Notes * Ajit Marin PA-C - 07/18/2023 8:58 AM EDT Images from the original note were not included. [facility] Problem Oriented Charting Provider Visit Date: 07/18/2023 Time: 8:58 AM [facility] Sub-Program: Focused Care Management (3-9 months) Assessment and Plan #1 COPD, group C, by GOLD 2017 classification ([facility]) (Primary) Overview: Per COPD GOLD Classification Assessment & Plan: "RED FLAG" COPD symptoms: [...] Classes - YA Class D - Inhaled Qwmkdjsxgujofh-XZLH-JJNL Combination Inhaler (Trellegy) Remote Patient Monitoring Vendor: No Connected RPM [...] improve, can start rescue kit Continue trelegy #2 Chronic pain syndrome Assessment & Plan: Continue lyrica Will add baclofen for prn use short term Did have interventional pain appt, but did not follow through #3 Adjustment disorder with depressed mood Assessment & Plan: Mood stable today on current dose lexapro #4 Advanced care planning/counseling discussion Other orders - Baclofen; Take 1 Tablet by mouth 3 times a day as needed for Muscle spasms. Dispense: 30 Tablet; Refill: 1 Additional Medical Decision Making: Patient lives with spouse Meds prepackaged from pharmacy Advised to increase nebulizer use for a few days, can start rescue kit if breathing not improved Baclofen reordered for prn use short term, can also trial heating pad Scheduled appointments in the next 60 days: Future Appointments-next 60 days Date/Time Provider Specialty Dept Phone 07/18/2023 9:00 AM Ajit Marin PA-C [facility] [phone] 08/03/2023 11:20 AM (Arrive by 11:05 AM) Ajit Moreno MD Family Medicine [phone] 08/05/2023 4:00 PM Rosa Parra RN [facility] [phone] A total of 30 minutes was spent face to face (via video-based telemedicine if designated as a telemedicine visit) Subjective Subjective Is this a Telemedicine Visit? No, this is an Home Visit. Reason For [facility] Visit: Enrollment Current Concerns: Florentin Franks is a 67 year old male seen today for a [facility] provider visit. PMH includes COPD, TAYLOR, GERD, dyslipidemia, depression, h/o PE 05/17-05/20/23 - [facility] - COPD exac 06/12-06/16/23 - neck pain, muscle spasm Today's concerns are: Patient seen for enrollment Spouse present Reports breathing slightly worse past 2 days, use nebulizer at night Continues to use trelegy daily Denies fever/chills, denies significant cough Has rescue kit available, but does not feel like he needs yet His previous neck pain is still present intermittently Currently using apap prn Also has some pain in left lower abd/groin, worse with movement Denies recent falls Denies urinary symptoms Bowels remain regular Denies n/v Additional Objective Objective There were no vitals filed for this visit. Last Weights: Wt Readings from Last 3 Encounters: 06/20/23 97.1 kg (214 lb) 05/27/23 99.6 kg (219 lb 8 oz) 04/12/23 100.2 kg (221 lb) Last BPs: BP Readings from Last 4 Encounters: 06/23/23 116/64 06/20/23 128/72 05/27/23 124/82 04/12/23 130/70 General: alert and no distress Neuro: alert & oriented x 3 with fluent speech Heart: regular rate & rhythm and no murmur Lungs: decreased breath sounds, expiratory wheezes bilaterally Abdomen: abdomen soft, non-tender, and no masses or organomegaly Ext: Normal extremities without edema Lab Review: I have reviewed the following results: Imaging results in the last 6 months CTA CHEST NON-CORONARY W CONTRAST Result Date: 06/20/2023 IMPRESSION 1. No evidence of thoracic aortic aneurysm. 2. Emphysema BMP results Recent Labs Units 09/10/22 0932 04/29/22 1048 01/11/22 1021 SODIUM - [facility] mmol/L -- -- 141 POTASSIUM - [facility] mmol/L -- -- 4.7 CHLORIDE - [facility] mmol/L -- -- 105 CO2 - [facility] mmol/L -- -- 26 CREATININE - [facility] mg/dL 0.9 0.9 1.0 BUN - [facility] mg/dL -- -- 14 Lipid panel results Recent Labs Units 01/11/22 1021 CHOLESTEROL - [facility] mg/dL 162 LDL CHOLESTEROL (CALCULATED) - [facility] mg/dL 100 HDL CHOLESTEROL - [facility] mg/dL 44 TRIGLYCERIDES - [facility] mg/dL 90 CBC results No results for input(s): "WBC", "HGB", "HCT", "PLT" in the last 96984 hours. HbA1c results No results for input(s): "HGBA1C" in the last 49828 hours. Medication Review "Bottles Out" medication review performed today and medication list in EMR updated Ajit Marin PA-C 8:58 AM *Communication sent to PCP (via autofax if non[facility]), [facility] Care Team members,relevant Specialty Care Physicians* documented in this encounter Miscellaneous Notes * ACP (Advance Care Planning) - Ajit Marin PA-C - 07/18/2023 9:52 AM EDT Patient-centered Communication 07/18/2023 The patient/surrogate voluntarily agreed to participate in advance care planning discussion. They were advised that this is a separate service which may incur out of pocket cost in the form of copayment and/or deductibles. Location: Home Individual(s) present for conversation: Patient and Spouse Decisions Synopsis [employer] Most Recent Value Past ~10 years 03/02/2022 15:42 Decisions CPR decision: Patient chooses CPR 03/02/2022 Patient chooses CPR Intubation/Mechanical Ventilation decision: Patient chooses Intubation/mechanical ventilation 03/02/2022 Patient chooses Intubation/mechanical ventilation Non-invasive ventilation or BIPAP decision: Patient chooses non-invasive ventilation. Select interventions below 03/02/2022 Patient chooses non-invasive ventilation. Select interventions below Non-Invasive Ventilation Interventions: Oxygen only;CPAP;BIPAP;NIV 03/02/2022 Oxygen only;CPAP;BIPAP;NIV Antibiotic therapy decision: Patient chooses Antibiotic therapy 03/02/2022 Patient chooses Antibiotic therapy Artificial nutrition decision: Patient chooses Artificial nutrition 03/02/2022 Patient chooses Artificial nutrition IV hydration decision: Patient chooses IV hydration 03/02/2022 Patient chooses IV hydration Chemotherapy decision: Patient chooses Chemotherapy 01/25/2022 Radiation therapy decision: Patient chooses Radiation therapy 01/25/2022 Surgical procedure(s) decision: Patient chooses Surgical procedure 03/02/2022 Patient chooses Surgical procedure Blood transfusion decision: Patient chooses Blood transfusion 03/02/2022 Patient chooses Blood transfusion Lab draw decision: Patient chooses Lab draws 03/02/2022 Patient chooses Lab draws Transport decision: Patient chooses Transport 03/02/2022 Patient chooses Transport Dialysis decision: Patient chooses Dialysis 03/02/2022 Patient chooses Dialysis Additional Comments Synopsis [employer] Most Recent Value Past ~10 years 07/18/2023 09:51 Additional Comments Additional Comments: goals of care unchanged, remains FULL CODE 07/18/2023 goals of care unchanged, remains FULL CODE Discerning What Matters Most to the Patient: Synopsis [employer] Most Recent Value Past ~10 years 01/25/2022 15:46 Discerning What Matters Most to the Patient Their current SYMPTOMS include: Pain;Nausea;Lack of appetite;Shortnes of breath;Anxiety 01/25/2022 Pain;Nausea;Lack of appetite;Shortnes of breath;Anxiety The patient's HOPES are: Avoid further hospitalization;Maintain current functional abilities;Avoid the alf;Avoid symptoms 01/25/2022 Avoid further hospitalization;Maintain current functional abilities;Avoid the alf;Avoid symptoms Avoid symptoms include: Pain;Nausea;Dyspnea 01/25/2022 Pain;Nausea;Dyspnea The patient defines LIVING WELL as: going fishing 01/25/2022 going fishing The patient's cultural or spiritual BELIEFS that may affect health care decisions: none 01/25/2022 none Source: Content from [employer] Program Aligning Care With What Matters Most: Synopsis [email or web address] Most Recent Value Past ~10 years 03/02/2022 15:42 Aligning Care With What Matters Most Interventions/Choices: CPR;Intubation/mechanical ventilation;Non-invasive ventilation or BIPAP;Antibiotic therapy;IV hydration;Artificial nutrition;Surgical procedure;Blood transfusion;Lab draws;Dialysis;Transport 03/02/2022 CPR;Intubation/mechanical ventilation;Non-invasive ventilation or BIPAP;Antibiotic therapy;IV hydration;Artificial nutrition;Surgical procedure;Blood transfusion;Lab draws;Dialysis;Transport Rationale for Decisions Synopsis [email or web address] Most Recent Value Past ~10 years 03/02/2022 15:42 Intubation/mechanical ventilation Their goals for Intubation/mechanical ventilation treatment are: short term only 03/02/2022 short term only Source: Content from [employer] Program 5 minutes spent in direct [id number]-vh-[id number] discussion today, Ajit Marin PA-C * Assessment & Plan Note - Ajit Marin PA-C - 07/18/2023 9:48 AM EDT Associated Problem(s): Adjustment disorder with depressed mood Mood stable today on current dose lexapro * Assessment & Plan Note - Ajit Marin PA-C - 07/18/2023 9:45 AM EDT Associated Problem(s): Chronic pain syndrome Continue lyrica Will add baclofen for prn use short term Did have interventional pain appt, but did not follow through * Assessment & Plan Note - Ajit Marin PA-C - 07/18/2023 9:44 AM EDT Associated Problem(s): COPD, group C, by GOLD 2017 classification (HCC) "RED FLAG" COPD symptoms: Increased dyspnea on [...] Classes - YA Class D - Inhaled Pthjtyjicwqgtp-UHVY-FHRU Combination Inhaler (Tejinder) Remote Patient Monitoring Vendor: No Connected RPM [...] improve, can start rescue kit Continue trelegy documented in this encounter Plan of Treatment Upcoming Encounters Date Type Department Care Team (Late st Contact Info) Description 08/03/2023 11:20 AM EDT [facility] [address] [phone] JuneAjit MD [address] [place] [facility] [place] [address] 08/05/2023 4:00 PM EDT Home Visit [facility] [address] [place] [address] Rosa Parra RN [address] [place] [address] Scheduled Procedures Name Priority Associated Diagnoses Date/Ti [...] D LEVEL ONCE IN A LIFETIME-USE SMARTSET# [id number] Completed 06/16/2021, 05/03/2014 Lung Cancer Screening Completed [...] C, by GOLD 2017 classification (HCC)- Primary Chronic pain syndrome Adjustment disorder with depressed mood Advanced care planning/counseling discussion Other specified counseling documented in this encounter Advance Directives * [...] 9:12 AM 05/09/2003 10:12 AM Care Teams Black Leather Trimmer Relationship Specialty Start Date End Date June, Ajit Sylvester MD [address] [place] [address] PCP - General Family Medicine 03/11/22 documented as of this encounter
--- OUTSIDE RECORDS SUMMARY | 2023-08-02 12:15 | External Medical Summary | Summary of Care ---
Author Name Unknown Organization [facility] Address [address] [place] [address] Phone [phone] Care Team Providers Care Escrow Officer Name Role Phone Ajit Moreno MD Primary Care Provider [phone] Reason for Visit * Reason Comments eRx-Medication Refill Encounter Details Date Type Department Care Team (Late st Contact Info) Description 07/13/[address] [facility] [address] [place] [address] JuneAjit MD [address] [place] [address] Adjustment disorder with depressed mood Allergies Active Allergy Reactions Criticality Noted Date Comments Fluticasone High 02/27/2020 Other reaction(s): lightheadedness and nausea Umeclidinium High 02/27/2020 Other reaction(s): lightheadedness and nausea Vilanterol High 02/27/2020 Other reaction(s): lightheadedness and nausea documented as of this encounter (statuses as of 07/14/2023) Medications Medication Sig Dispensed Refills Start Date [...] :COPD, group C, by GOLD 2017 classification ([facility]) Inhale 1 Ampule via nebulizer [...] ications:COPD, group C, by GOLD 2017 classification ([facility]) Inhale 1 Puff by mouth [...] or wheezing 8.5 g 5 06/09/2023 Active Baclofen 5 MG Oral Tablet (Lioresal) Take 1 Tablet by mouth in the morning and 1 Tablet at noon and 1 Tablet before bedtime. 06/16/2023 Active oxyCODONE HCl 5 MG Oral Tablet [...] before bedtime. 60 Capsule 2 06/28/2023 Active documented as of this encounter (statuses as of 07/14/2023) Active Problems Problem Noted Date Diagnosed Date [...] as of this encounter (statuses as of 07/14/2023) Resolved Problems Problem Noted Date Diagnosed Date [...] LUNG, NOT ELSEWHERE CLASSIFIED 06/12/2002 09/14/2018 CHEST [id number] 04/09/200209/2018 ABN FD-INTRATHOR ORG NEC-akbar nodule 03/06/2002 [...] as of this encounter (statuses as of 07/14/2023) Immunizations Name Administration Dates Next Due COVID-19 mRNA, LNP-s, No Pre serve, 2-Dose Series (Aisle50) 05/22/2020,05/01/2020 Seasonal Influenza, PF, 6 M & [...] Notes * Telephone Encounter - Ruth Huynh, [facility] - 07/14/2023 1:47 PM EDTRefused Prescriptions: Disp Refills buPROPion HCl ER (SR) 150 MG Oral Tablet E*84 Tab*0 Sig: TAKE 1TABLET BY MOUTH IN THE MORNING AND AT BEDTIME DISCONTINUE ON 08/08/23Refused By: RUTH HUYNH WReason for Refusal: Refill Not AppropriateReason for Refusal Comment: patient is weaning off, is to stop 08/08/23 * Telephone Encounter - Ruth Huynh [facility] - 07/14/2023 1:46 PM EDT Refused Prescriptions: Disp Refills buPROPion HCl ER (SR) 150 MG Oral Tablet E*84 Tab*0 Sig: TAKE 1 TABLET BY MOUTH IN THE MORNING AND AT BEDTIME DISCONTINUE ON 08/08/23 Refused By: RUTH HUYNH Reason for Refusal: Refill Not Appropriate Reason for Refusal Comment: patient is weaning off, is to stop 08/08/23 Fidel BowmanPh. Clinical Pharmacist [facility] [address] [place] [address]: [phone] 07/14/2023,1:46 PM * Telephone Encounter - Bettye Marin CPhT - 07/14/2023 1:35 PM EDTPending Prescriptions: Disp Refills buPROPion HCl ER (SR) 150 MG Oral Tablet E*84 Tab*0 Sig: TAKE 1 TABLET BY MOUTH IN THE MORNING AND AT BEDTIME DISCONTINUE ON 08/08/23 * Telephone Encounter - Bettye Marin CPhT - 07/14/2023 1:33 PM EDT Did you pend patient's preferred pharmacy and medication before forwarding?yes Pharmacy: [facility] [address] Pending Prescriptions: Disp Refills buPROPion HCl ER (SR) 150 MG Oral Tablet *84 Tab*0 Sig: TAKE 1 TABLET BY MOUTH IN THE MORNING AND AT BEDTIME DISCONTINUE ON 08/08/23 Last Visit: 06/20/2023 (in office), Visit date not found (telemedicine) Next Visit: 08/03/2023 If no future appointments scheduled, and last appointment is greater than a year ago, please schedule patient for a follow-up appointment Last date the medication was ordered: 06/20/23 Is this request for a controlled substance?No [...] 9:00 AM EDT Home Visit [facility] [address] [place] [address] Ajit Marin PA-C [address] [place] [address] 08/03/2023 11:20 AM EDT Office Visit [facility] [address] [place] [phone] Ajit Moreno MD [address] [place] [address] 08/05/2023 4:00 PM EDT [facility] [address] [place] [address] Rosa Parra, RN [address] [place] [address] Scheduled Procedures Name Priority Associated Diagnoses Date/Ti me COLONOSCOPY FLEXIBLE PROXIMAL DIAGNOSTIC Recall History of colon polyps Health Maintenance Due Date Last Done Comments DISCUSS TOBACCO CESSATION (REFER TO SMARTSET #0034) 1955 Pneumococcal Vaccine: 65+ Years (1 of [...] 07/03/2020, Additional history exists Colonoscopy 03/18/2026 03/18/2021, 0210/2021, 12/18/2019, Additional history exists Colorectal Cancer Screening 03/18/2026 Hepatitis C Screening Completed 05/31/2017 , 08/07/2015, 05/03/2014 RETIRED - COLONOSCOPY-ANNUAL AGES 18-100 Discontinued 03/18/2021, 03/18/2021, 12/18/2019, Additional history exists RETIRED - COLONOSCOPY-EVERY 5 YRS AGES 18-100 Discontinued 03/18/2021, 03/18/2021, 12/18/2019, Additional history exists VITAMIN D LEVEL ONCE IN A LIFETIME-USE SMARTSET# [id number] Completed 06/16/2021, 05/03/2014 Lung Cancer Screening Completed [...] as of this encounter Visit Diagnoses Diagnosis Adjustment disorder with depressed mood documented in this encounter Advance Directives * [...] 9:12 AM 05/09/2003 10:12 AM Care Teams Escrow Officer Relationship Specialty Start Date End Date June, Ajit Sylvester MD [address] [place] [address] PCP - General Family Medicine 03/11/22 documented as of this encounter
--- OUTSIDE RECORDS SUMMARY | 2023-08-02 12:15 | External Medical Summary | Summary of Care ---
Author Name Unknown Organization [facility] Address [address] [place] [address] Phone [phone] Care Team Providers Care Prosthetic Aides Teacher Name Role Phone Ajit Moreno MD Primary Care Provider [phone] Reason for Visit * Reason Onset Date Comments Short of Breath 04/18/2023 Encounter Details Date Type Department Care Team (Late st Contact Info) Description 04/18/2023 Telephone [facility] [address] [place] [address] JuneAjit MD [address] [place] [address] Short of Breath Allergies Active Allergy Reactions Criticality Noted Date Comments Fluticasone High 02/27/2020 Other reaction(s): lightheadedness and nausea Umeclidinium High 02/27/2020 Other reaction(s): lightheadedness and nausea Vilanterol High 02/27/2020 Other reaction(s): lightheadedness and nausea documented as of this encounter (statuses as of 07/13/2023) Medications Medication Sig Dispensed Refills Start Date [...] Tablet by mouth in the morning. Active documented as of this encounter (statuses as of 07/13/2023) Active Problems Problem Noted Date Diagnosed Date Severe obesity (BMI 35.0-39.9) with comorbidity 05/27/2023 Food insecurity 05/16/2023 Overview: Per [facility] Protocol Personal history of other [...] as of this encounter (statuses as of 07/13/2023) Resolved Problems Problem Noted Date Diagnosed Date [...] LUNG, NOT ELSEWHERE CLASSIFIED 06/12/2002 09/14/2018 CHEST [id number] 04/09/200209/2018 ABN FD-INTRATHOR ORG NEC-akbar nodule 03/06/2002 [...] as of this encounter (statuses as of 07/13/2023) Immunizations Name Administration Dates Next Due COVID-19 mRNA, LNP-s, No Pre serve, 2-Dose Series (Dely) 05/22/2020,05/01/2020 Seasonal Influenza, PF, 6 M & [...] Telephone Encounter - Ajit Moreno MD - 04/18/2023 4:55 PM EDT Agree with ongoing inhaler use and return to pulmonary. Recent echo during hospitalization showed EF of 65-70%. Ajit Moreno MD * Telephone Encounter - Saray Wilson RN - 04/18/2023 3:[address] Moreno, I spoke to Mr. Franks today, I wanted to make you aware of some symptoms he is reporting: SITUATION: Patient states his SOB is a little worse than it has been, gets SOB after walking 20 feet BACKGROUND: Patient had a fall on 04/17/23, said he fell while walking on some rocks Seen int ER to be evalulated, Bilateral arm pain, Abrasion of left lower extremity, Closed head injury without loss of consciousness-xrays were done, no fractures/dislocations found, has minimal painas of today ASSESSMENT: Patient says he has some nasal congestion, with a dry cough Patient says his lower legs continue to have swelling, says it is from his ankles up to his thighs on both legs Has a good appetite, no fever, continues to use O2 at 2 liters at night RECOMMENDATION: Encouraged patient to use his inhalers as prescribed Use nebulizer treatments more often, drink fluids Patient was seen by pulmonary in the past at [facility], encouraged him to call to schedule a follow up appointment, it has been many months since he was last seen by them Let me know if you have any additional recommendations, medications need to go to [facility] in [place] thanks Saray Wilson RN [address] [address] documented in this encounter Plan of Treatment Upcoming Encounters Date Type Department Care Team (Late st Contact Info) Description 07/18/2023 9:00 AM EDT [facility] [address] [facility] [place] [address] Ajit Marin PA-C [facility] [place] [address] 08/03/2023 11:20 AM EDT Office Visit [facility] [address] [place] [phone] Ajit Moreno MD [address] [place] [address] 08/05/2023 4:00 PM EDT [facility] Visit [facility] [address] [place] [address] Rosa Parra RN [address] [place] [address] Scheduled Procedures Name Priority Associated Diagnoses Date/Ti me COLONOSCOPY FLEXIBLE PROXIMAL DIAGNOSTIC Recall History of colon polyps Health Maintenance Due Date Last Done Comments DISCUSS TOBACCO CESSATION (REFER TO SMARTSET #2401) 1955 Pneumococcal Vaccine: 65+ Years (1 of [...] D LEVEL ONCE IN A LIFETIME-USE SMARTSET# [id number] Completed 06/16/2021, 05/03/2014 Lung Cancer Screening Completed [...] 9:12 AM 05/09/2003 10:12 AM Care Teams Prosthetic Aides Teacher Relationship Specialty Start Date End Date June, Ajit Sylvester MD [address] [place] [address] PCP - General Family Medicine 03/11/22 documented as of this encounter
--- OUTSIDE RECORDS SUMMARY | 2023-08-02 12:16 | External Medical Summary | Summary of Care ---
Author Name Unknown Organization [facility] Address [address] [place] [address] Phone [phone] Care Team Providers Care Signal Integrity Engineer Name Role Phone Ajit Moreno MD Primary Care Provider [phone] Encounter Details Date Type Department Care Team (Late st Contact Info) Description 06/21/2023 Result Scan Unspecified Department <No scans attached> Allergies Active Allergy Reactions Criticality Noted Date Comments Fluticasone High 02/27/2020 Other reaction(s): lightheadedness and nausea Umeclidinium High 02/27/2020 Other reaction(s): lightheadedness and nausea Vilanterol High 02/27/2020 Other reaction(s): lightheadedness and nausea documented as of this encounter (statuses as of 06/23/2023) Medications Medication Sig Dispensed Refills Start Date [...] :COPD, group C, by GOLD 2017 classification ([facility]) Inhale 1 Ampule via nebulizer [...] ications:COPD, group C, by GOLD 2017 classification ([facility]) Inhale 1 Puff by mouth [...] at noon and 1 Tablet before bedtime. 0 06/16/2023 Active oxyCODONE HCl 5 MG Oral Tablet (Oxy IR) Take 1 Tablet by mouth every 6 hours as needed. 0 06/16/2023 Active buPROPion HCl ER (SR) 150 MG Oral Tablet Extended Release 12 Hour (Wellbutrin SR)Indications:Adjus tment disorder with depressed mood TAKE ONE TABLET BY MOUTH IN THE MORNING AND ONE BEFORE BEDTIME Discontinue on August 08 2023 84 Tablet 0 06/20/2023 Active documented as of this encounter (statuses as of 06/23/2023) Active Problems Problem Noted Date Diagnosed Date Severe obesity (BMI 35.0-39.9) with comorbidity 05/27/2023 Food insecurity 05/16/2023 Overview: Per [facility] Protocol Personal history of other [...] as of this encounter (statuses as of 06/23/2023) Resolved Problems Problem Noted Date Diagnosed Date [...] LUNG, NOT ELSEWHERE CLASSIFIED 06/12/2002 09/14/2018 CHEST [id number] 04/09/200209/2018 ABN FD-INTRATHOR ORG NEC-akbar nodule 03/06/2002 [...] as of this encounter (statuses as of 06/23/2023) Immunizations Name Administration Dates Next Due COVID-19 mRNA, LNP-s, No Pre serve, 2-Dose Series ([employer]) 05/22/2020,05/01/2020 Seasonal Influenza, PF, 6 M & [...] Description 06/23/2023 12:30 PM EDT [facility] Visit [facility] [address] [id number] Rosa Parra RN [address] [id number] 06/27/2023 12:30 PM EDT Office Visit [facility], [facility] [address] [address] Marilee Mcmahan PA-C [address] [address] 06/28/2023 12:00 PM EDT Office Visit Gastroenterology, [facility] [address] [address] Jerome Conroy CRNP [address] [id number] 07/18/2023 9:00 AM EDT Home Visit [facility] [address] [place] [address] Ajit Marin PA-C [address] [place] [address] 08/03/2023 11:20 AM EDT Office Visit [facility] [address] [place] [id number] JuneAjit MD [address] [place] [address] Scheduled Procedures Name Priority Associated Diagnoses Date/Ti me COLONOSCOPY FLEXIBLE PROXIMAL DIAGNOSTIC Recall History of colon polyps Health Maintenance Due Date Last Done Comments DISCUSS TOBACCO CESSATION (REFER TO SMARTSET #[id number]) 1955 Pneumococcal Vaccine: 65+ Years (1 of [...] ASSESSMENT COMPLETED IN PAST YEAR FOR COPD 06/19/2024 06/20/2023 Diabetes Screening 01/11/2025 01/11/2022, 1 04/05/2020, 07/03/2020, [...] D LEVEL ONCE IN A LIFETIME-USE SMARTSET# [id number] Completed 06/16/2021, 05/03/2014 Lung Cancer Screening Completed [...] Procedure Name Priority Date/Time Associated Diagnosis Comments PROCEDURE SCANNED RESULT 06/21/2023 documented in this encounter Results * PROCEDURE SCANNED RESULT (06/21/2023) 06/21/2023 No Physician Data Unknown SURGERY documented in this encounter Advance Directives Latest [...] 9:12 AM 05/09/2003 10:12 AM Care Teams Signal Integrity Engineer Relationship Specialty Start Date End Date June, Ajit Sylvester MD [address] [place] [address] PCP - General Family Medicine 03/11/22 documented as of this encounter
[2023-08-02 13:46] LABS: Appearance Synovial Fluid Cloudy; Color Synovial Fluid Yellow; Mononuclear WBC Synovial 3.3 %; Polynuclear WBC Synovial 96.7 %; RBC Synovial Fluid Auto 10000 /uL; Source Synovial Fluid Right Elbow; WBC Synovial Fluid Auto 33470 /ul (0-200)
[2023-08-02] MEDS ORDERED: VANCOMYCIN CONSULT ACTIVE PRN (13:50)
[2023-08-02] MEDS: cefTRIAXone SODIUM 2,000 MG/50 ML BAG IV STA (13:59)
[2023-08-02] MEDS: VANCOMYCIN HCL 2,000 MG in SODIUM CHLORIDE 0.9% 500 ML IV ONE (14:33)
--- NOTE | 2023-08-02 15:09 | History & Physical Report ---
Date of Service August 02, 2023 Assessment & Plan (1) Septic bursitis of elbow: (2) Chronic shortness of breath: (3) Elevated LFTs: Plan Florentin Franks is a 67 y/o M with PMHx of hyperlipidemia, COPD/pulmonary emphysema, chronic diastolic heart failure (EF 60 to 65% - TTE 2023), PVD, TAYLOR (CPAP intolerance), aortic atherosclerosis, GERD with esophagitis, chronic pain syndrome, senile osteoporosis, descending aortic thrombus [NOT on anticoagulation therapy], hx of PE, tobacco use disorder, adjustment disorder with depressed mood/CARLOS and other problems listed below presented to the ED today for evaluation of right elbow pain x 5 days and was found to have septic bursitis of his right elbow. Septic Bursitis of Right Elbow ? Possible Septic Arthritis Admitting Imaging: * R Elbow XR --> "Dorsal soft tissue swelling with no acute fracture clearly identified. There is chronic deformity of the radial head with 2 screws/screw fragments in place. A buttress plate is partially visualized along the humeral shaft. Arthritic change is seen at the elbow joint with no dislocation identified. There is an elbow joint effusion." * Venous Doppler US of RUE --> "There is normal compressibility of the deep venous system from the forearm through the subclavian vein. Normal vascular flow is currently identified. No evidence of superficial thrombosis is identified." Patient's R elbow joint effusion was aspirated in the ED. [place] [address]. Synovial fluid gram stain revealed many polys, but NO organisms seen. ER provider (Dr. Ruff) consulted orthopedics. Orthopedics (Dr. Bradley Willis) saw and evaluated the patient. Recommends to follow aspiration culture, broad sp ectrum ABX coverage for now. NPO at midnight pending tomorrow's examination. Patient may require I&D of R elbow if no improvement. Patient received 2g IV Rocephin and 2g IV Vancomycin in the ED. He also was administered 8mg of morphine for pain. -WBC 14.62 on admission -Lyme disease screen negative -Lyme specimen source pending -Follow synovial fluid culture -Continue broad ABX coverage w/ Rocephin + Vancomycin -PRN pain regimen in place -Formal ortho consult placed -NPO at midnight pending ?I&D in AM w/ ortho if no improvement -PRN bowel regimen, PRN nausea relief -Repeat CBC w/ diff in AM Elevated LFTs -AST 47, ALT 78 on admission -Hold hepatotoxic medications when able -Repeat CMP in AM, monitor LFTs Chronic Obstructive Pulmonary Disease (COPD) Chronic Shortness of Breath, Recent Cough -Pt complains of constant SOB, recent cough -No acute findings on CXR -Follows / [facility] Pulm -Will schedule Duonebs Q4H -Continue INDUSTRIAL CHEMIST Trelegy, PRN albuterol inhaler -Could consider steroids if no improvement in breathing -EKG w/ chest pain as needed Hyperlipidemia: Continue INDUSTRIAL CHEMIST statin therapy Hx of Adjustment Disorder w/ Depressed Mood: Continue INDUSTRIAL CHEMIST psychiatric medications Tobacco Use Disorder -Currently smoking 1/4 pack per day -Smoking cessation education ordered -Consider nicotine patch PRN, can continue INDUSTRIAL CHEMIST bupropion GERD w/ Esophagitis: Continue INDUSTRIAL CHEMIST pantoprazole Hx of Neuropathy: Continue INDUSTRIAL CHEMIST pregabalin DVT Prophylaxis: SQ Heparin Code Status: FULL CODE PCP: Ajit Moreno MD Dispo: Admit to Med/Surg Patient seen in collaboration with Dr. Avalos. Please see addendum. I spent a total of 75 minutes coordinating, documenting, and providing care for this patient excluding time spent in the performance of separately billed services. This included personally reviewing all current laboratories and imaging studies, medical reconciliation, outpatient chart review and discussion with specialists. This chart was completed in part utilizing Speech Voice Recognition Software. Grammatical errors, random word insertions, pronoun errors, and incomplete sentences are an occasional consequence of this system due to software limitations, ambient noise, and hardware issues. Any formal questions or concerns about the content, text, or information contained within the body of this dictation should be directly addressed to the provider for clarification. History of Present Illness Chief Complaint: Right Elbow Pain x 5 Days Primary Care Provider: Ajit Moreno MD Florentin Franks is a 67 y/o M with PMHx of hyperlipidemia, COPD/pulmonary emphysema, chronic diastolic heart failure (EF 60 to 65% - TTE 2023), PVD, TAYLOR (CPAP intolerance), aortic atherosclerosis, GERD with esophagitis, chronic pain syndrome, senile osteoporosis, descending aortic thrombus [NOT on anticoagulation therapy], hx of PE, tobacco use disorder, adjustment disorder with depressed mood/CARLOS and other problems listed below presented to the ED today for evaluation of right elbow pain x 5 days. History obtained from patient and associated chart review. Patient seen at bedside with Dr. Avalos. Patient complains of right elbow pain x 5 days. States the pain has been progressively worsening and is becoming unbearable. 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 Mentions he has not been able to work for the past 5 days or so due to this pain. He denies any trauma to his right elbow. Denies any fevers, chills or body aches. He does note some swelling of the right elbow region as well. States he did have an operative intervention performed for a "crush injury" of his right elbow in the distant past. He denies any recent procedures to his right elbow. He has not been taking anything at home for pain, patient states he "does not like to take medicine." Mentions he was unable to sleep well last night due to the pain. Denies any chest pain, abdominal pain or urinary/bowel habit changes. Patient currently also complaining of some SOB. States he is "always short of breath." He has been using his nebulizer 4x/day for the past week or so. He also relies on his albuterol inhaler quite frequently. Patient was recently admitted in May (05/17-05/20) here at [facility] for a COPD exacerbation. He mentions that he recently completed a course of azithromycin [5-day course] and steroids on (07/27), which were prescribed by his PCP 2/2 increased SOB/wheezing. Patient states this really did not help his breathing. Reports steroids "do not do much." However, patient was only prescribed a 5-day burst dose of prednisone (not a taper). Allergies Allergy/AdvReac Type Severity Reaction Status Date / Time No Known Allergies Allergy Verified 06/16/23 07:11 Home Medications Medication Instructions Recorded Confirmed Type pregabalin 100 mg capsule (Lyrica) 100 mg PO BID 10/16/17 08/02/23 History meclizine 12.5 mg tablet 12.5 mg PO TID PRN Dizziness 06/28/21 08/02/23 History bupropion HCl 150 mg tablet,12 hr 150 mg PO BID 04/07/22 08/02/23 History sustained-release (Wellbutrin SR) ondansetron 8 mg disintegrating 8 mg PO Q8H PRN Nausea 04/07/22 08/02/23 History tablet clobetasol 0.05 % topical cream 1 applic topical BID PRN Rash 12/29/22 08/02/23 History levalbuterol HCl 1.25 mg/3 mL 1.25 mg inhalation Q4H PRN Wheezing 12/29/22 08/02/23 History solution for nebulization triamcinolone acetonide 0.1 % 1 applic topical BID PRN Rash 12/29/22 08/02/23 History topical cream cyanocobalamin (vitamin B-12) 1,000 mcg PO QAM 03/08/23 08/02/23 History 1,000 mcg tablet (Vitamin B-12) aspirin 81 mg tablet,delayed 81 mg PO QAM #30 tabs 03/11/23 08/02/23 Rx release atorvastatin 80 mg tablet (Lipitor) 80 mg PO DAILY #30 tabs 03/11/23 08/02/23 Rx pantoprazole 40 mg tablet,delayed 40 mg PO BID 30 days #60 tabs 04/06/23 08/02/23 Rx release (Protonix) albuterol sulfate 90 mcg/actuation 2 puff inhalation Q4H PRN 04/26/23 08/02/23 Rx aerosol inhaler Shortness Of Breath Or Wheezing #8.5 grams escitalopram oxalate 10 mg tablet 10 mg PO DAILY 06/13/23 08/02/23 History fluticasone fur. 200 mcg-umeclid 1 inh inhalation DAILY 06/13/23 08/02/23 History 62.5 mcg-vilant 25 mcg inhalat.powder (Trelegy Ellipta) diclofenac sodium 1 % topical gel 2 g EXT Q4H PRN neck pain #100 06/16/23 08/02/23 Rx (Voltaren Arthritis Pain) grams oxycodone 5 mg tablet 5 mg PO Q6H PRN pain #15 tabs 06/16/23 08/02/23 Rx CPAP Machine #1 ea 06/24/23 08/02/23 Rx CPAP Supplies #1 ea 06/24/23 08/02/23 Rx baclofen 5 mg tablet 5 mg PO TID PRN muscle spasms 08/02/23 08/02/23 History furosemide 40 mg tablet 40 mg PO QAM PRN Fluid 08/02/23 08/02/23 History accumulation, weight gain Past Med/Surg History Problem List Chronic shortness of breath Elevated LFTs Septic bursitis of elbow (Acute) Myofascial pain Neck muscle spasm Spasm of right trapezius muscle Elevated transaminase level Elevated troponin I level (Acute) Acute neck pain (Acute) COPD (chronic obstructive pulmonary disease) (Acute) Bilateral wheezing (Acute) SOB (shortness of breath) (Acute) TAYLOR (obstructive sleep apnea) Cannot tolerate device Dizziness (Acute) Headache (Acute) Abdominal pain (Acute) Acute respiratory failure with hypoxemia Thrombus of aorta (Acute) Acute hypotension (Acute) Chest pain (Acute) Encounter for pre-operative examination Hypertension (Chronic) Acute exacerbation of chronic obstructive airways disease (Acute) Tobacco abuse Obesity (Acute) Hypertrophy of nasal turbinates (Acute) Chronic sinusitis (Acute) Chronic post-thoracotomy pain (Acute) Cervical radiculopathy (Acute) Arthritis (Acute) Acquired deviated nasal septum (Acute) Cessation of tobacco use in previous 12 months Nasal polyp Gastritis Closed compression fracture of lumbar vertebra (Acute) Closed fracture of radial head (Acute) Fall (Acute) Left wrist sprain Compression fracture of L5 vertebra Pulmonary nodule seen on imaging study Multiple pulmonary nodules COPD with emphysema Chronic bronchitis Current smoker Acute bronchitis COPD exacerbation (Acute) Bronchitis (Acute) Chest pain (Acute) COPD exacerbation (Acute) Leukocytosis (Acute) Shortness of breath at rest (Acute) Post-nasal drip Chronic - stable Viral upper respiratory illness hx Anxiety (Chronic) HLD (hyperlipidemia) (Chronic) Thoracic spinal stenosis (Chronic) Diaphragmatic hernia (Chronic) GERD (gastroesophageal reflux disease) (Chronic) Well controlled and stable Neuropathy (Chronic) COPD, moderate (Chronic) Breathing stable Medical History Chronic respiratory failure On oxygen at night in the past - but no longer needs per patient Hx of migraines Sleep apnea No device History of COVID-19 2019, moderate symptoms > resolved 2020, mild symptoms > resolved Pneumothorax Hx- complication from pain injection- resolved Histoplasmosis 2002- treated Surgical History History of esophagogastroduodenoscopy (EGD) Hx of colonoscopy History of open reduction and internal fixation (ORIF) procedure right shoulder History of total replacement of left shoulder joint History of sinus surgery History of placement of chest tube History of hand surgery Left femoral shaft fracture Dutch placed H/O total hip arthroplasty left side H/O elbow surgery H/O exploratory thoracotomy "Left thoracotomy wedge biopsy of left upper lobe with excision of lesion or nodule & frozen section 2002" H/O hernia repair "[facility] incarcerated supraumbilical hernia repair open no mesh 02/17/01" Family History Father Heart disease Hypertension Brother Cancer Hypertension Stroke Heart disease Mother Cancer Other Leukemia No family history of bleeding disorder Non-Hodgkin lymphoma Denies family history of Hearing loss Asthma Social History Smoking Status: Current every day smoker Tobacco Type: Cigarettes Age Started Using Tobacco: 11; packs per day: 1; Cigarettes Per Day: 10 cigs /day; Second Hand Exposure: No; Do You Dip or Chew Tobacco: No; Hx Alcohol Use: No Hx Substance Use: No Preferred Language: Malay Communication Ability: Effective 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 Beliefs That Will Affect Care: None marital status: Current Living Situation: Spouse current occupational status: unemployed Feels Safe at Home: Yes Assistive Devices: Glasses and Oxygen - at Night Review of Systems Review of Systems: At least ten systems reviewed and negative, except as noted in the HPI. Physical Exam Physical Exam: Please refer to Dr. Avalos's addendum for physical examination findings. Results & Data Results & Data Vital Signs (Past 12 Hours) Vital Signs Temp Pulse Pulse Resp BP BP Pulse Ox 08/02/23 14:00 78 24 94 08/02/23 13:58 133/86 08/02/23 13:58 78 19 133/86 95 08/02/23 13:51 77 17 95 08/02/23 13:39 77 30 H 95 08/02/23 13:03 82 22 95 08/02/23 12:45 77 19 95 08/02/23 12:00 75 20 97 08/02/23 11:30 76 22 91 08/02/23 11:21 82 15 91 08/02/23 10:38 76 08/02/23 10:15 93 08/02/23 09:12 36.7 C 77 18 157/80 H 97 O2 Del Method 08/02/23 14:00 08/02/23 13:58 08/02/23 13:58 08/02/23 13:51 08/02/23 13:39 08/02/23 13:03 08/02/23 12:45 08/02/23 12:00 08/02/23 11:30 08/02/23 11:21 08/02/23 10:38 08/02/23 10:15 Room Air 08/02/23 09:12 Room Air Laboratory Results Short CBC 08/02/23 Range/Units 09:50 WBC 14.62 H (4.8-10.8) K/ul Hgb 13.3 L (14.0-18.0) g/dl Hct 39.3 L (42.0-52.0) % Plt Count 294 (130-400) K/uL BMP 08/02/23 09:50 Sodium 137 Potassium 4.1 Chloride 104 Carbon Dioxide 28 BUN 18 Creatinine 0.80 Glucose 98 Calcium 8.1 L Liver Function 08/02/23 Range/Units 09:50 Total Bilirubin 0.7 (0.2-1.0) mg/dl AST 47 H (13-39) U/L ALT 78 H (7-52) U/L Alkaline Phosphatase 99 (34-104) U/L Albumin 3.6 (3.4-5.0) gm/dl Diagnostic Findings Chest X-Ray 08/02/23 09:25 XR chest 1V portable CLINICAL HISTORY: Chest pain, nonspecific COMPARISON STUDY: Chest CT May 12, 2023. Chest radiograph June 13, 2023. FINDINGS: Left shoulder arthroplasty and right humeral internal fixation are partially imaged. There is emphysema. No pneumothorax or pleural effusion is present. Cardiomediastinal silhouette is normal. There is no consolidation to suggest pneumonia. Appearance of the chest is unchanged. Linear left upper lung densities represent atelectasis or scarring. IMPRESSION: No acute cardiopulmonary findings. No significant change in appearance of the chest. ACT 112: Negative or not required by law. Electronically signed by: Jose A Hernandez M.D. 08/02/2023 9:50 AM Elbow X-Ray 08/02/23 09:25 RIGHT ELBOW 3 VIEWS CLINICAL HISTORY: Atraumatic right elbow pain. FINDINGS: 3 views of the right elbow are compared to study dated 10/03/2014. The skeletal structures are osteopenic. No acute fracture is clearly identified. There is chronic deformity of the radial head with 2 screws/screw fragments in place. A buttress plate is partially visualized along the humeral shaft. Arthritic change is seen at the elbow joint with no dislocation identified. There is an elbow joint effusion. Soft tissue edema is present around the elbow, greatest dorsally. IMPRESSION: 1. Dorsal soft tissue swelling with no acute fracture clearly identified. 2. Chronic and postsurgical changes as above. 3. There is a nonspecific joint effusion. Although this could potentially be seen with occult fracture, this is considered unlikely in the absence of a trauma history. Clinical correlation will be required. Electronically signed by: Wayne Baez M.D. 08/02/2023 9:52 AM Venous Doppler Study 08/02/23 09:40 US venous doppler UE RT CLINICAL HISTORY: eval for dvt PROCEDURE: Right upper extremity real-time compression venous ultrasound with Duplex and color Doppler imaging. Comparison: None available at the time of this dictation. FINDINGS/IMPRESSION: There is normal compressibility of the deep venous system from the forearm through the subclavian vein. Normal vascular flow is currently identified. No evidence of superficial thrombosis is identified. ACT 112: Negative or not required by law. Electronically signed by: Florin Soto M.D. 08/02/2023 10:56 AM Medications Administered Vancomycin HCl 2,000 mg/ (Sodium Chloride) 540 mls @ 200 mls/hr IV NOW ONE Stop: 08/02/23 16:31 Last Admin: 08/02/23 14:33 Dose: 200 mls/hr Documented By: SHIRIN Discontinued Medications Ceftriaxone Sodium (Rocephin) 2,000 mg in 50 mls @ 100 mls/hr IV NOW STA Stop: 08/02/23 14:18 Last Infusion: 08/02/23 14:31 Dose: Infused Documented By: Admin: 08/02/23 13:59 Dose: 100 mls/hr Documented By: YEFRI Lidocaine HCl (Lidocaine 1% Local 20 Ml Vial) 5 ml INJ NOW ONE Stop: 08/02/23 10:54 Last Admin: 08/02/23 11:19 Dose: 5 ml Documented By: SHIRIN Methylprednisolone (Methylprednisolone 125 Mg/2 Ml Vial) 125 mg IV NOW STA Stop: 08/02/23 09:27 Last Admin: 08/02/23 10:06 Dose: 125 mg Documented By: DS Morphine Sulfate (Morphine Sulfate 4 Mg/Ml 1 Ml Carp\\Vial) 4 mg IV NOW STA Stop: 08/02/23 09:26 Last Admin: 08/02/23 10:06 Dose: 4 mg Documented By: DS Morphine Sulfate (Morphine Sulfate 4 Mg/Ml 1 Ml Carp\\Vial) 4 mg IV NOW STA Stop: 08/02/23 10:55 Last Admin: 08/02/23 11:18 Dose: 4 mg Documented By: HS Ondansetron HCl (Ondansetron Inj 2 Mg/Ml 2 Ml Vial) 4 mg IV NOW STA Stop: 08/02/23 09:26 Last Admin: 08/02/23 10:06 Dose: 4 mg Documented By: DS ECG Additional Comments: EKG displayed NSR with HR 72bpm, nondiagnostic inferior Q waves and QTc interval 424ms. No significant change when compared to EKG performed 06/14/2023. Code Status & VTE Plan Code Status FULL CODE Supervising Physician Co-Signing Physician Notes Patient was seen and examined with Faye ARREOLA at bedside. Chart reviewed. Case discussed with Faye ARREOLA and agree with the documentation above. In summary, this is a 67 year old male who presented to the ED with right elbow pain for 5 days. [employer] by occupation and right hand dominant. No trauma or injuries. Vitals stable, Labs and imaging reviewed. On exam, AAO, in discomfort due to pain, Rt elbow extremely tender with limited ROM and some fullness, chest clear, heart sounds normal, Abd benign, neuro grossly intact. Found to have septic bursitis of right elbow which was aspirated in ED. Seen by ortho- recommended broad IV ABx and follow up clx, npo after midnight for possible I and D tomorrow if no improvement. Continue empiric vanc/rocephin started in ED. Follow up clx and ortho recs. Pain management. Rest as per the note above. (1) Septic bursitis of elbow Laterality: right Qualified Code(s): M71.121 - Other infective bursitis, right elbow
--- NOTE | 2023-08-02 16:08 | Orthopedic Consultation ---
Date of Service August 02, 2023 Assessment & Plan (1) Septic bursitis of elbow: 67-year-old male with several chronic medical comorbidities presented to the ER with a clear case of at least septic bursitis, possible septic arthritis in the right elbow given irritability on exam. Follow aspiration culture Broad spectrum coverage for now. NPO at midnight pending tomorrow exam - if no improvement, may need I&D Will add inflammatory markers for more data to follow. Should be on soft tissue rest with the right upper extremity. May ice and elevate. History of Present Illness Reason for Consultation: right elbow pain Requesting Physician: . 67-year-old male admitted for progressive right elbow pain that developed 5 days ago. He denied any constitutional symptoms to me. He did not measure any fevers at home. The right elbow pain became intolerable. He also reported some chest pain in the ER. Emergency room consulted orthopedics after aspirating the elbow. The aspiration showed increased synovial white blood cell count. No prior history of bursitis or elbow infection. He does have a history of trauma to that elbow greater than 15 years ago requiring ORIF of the radial head. Allergies Allergy/AdvReac Type Severity Reaction Status Date / Time No Known Allergies Allergy Verified 06/16/23 07:11 Home Medications Medication Instructions Recorded Confirmed Type pregabalin 100 mg capsule (Lyrica) 100 mg PO BID 10/16/17 08/02/23 History meclizine 12.5 mg tablet 12.5 mg PO TID PRN Dizziness 06/28/21 08/02/23 History bupropion HCl 150 mg tablet,12 hr 150 mg PO BID 04/07/22 08/02/23 History sustained-release (Wellbutrin SR) ondansetron 8 mg disintegrating 8 mg PO Q8H PRN Nausea 04/07/22 08/02/23 History tablet clobetasol 0.05 % topical cream 1 applic topical BID PRN Rash 12/29/22 08/02/23 History levalbuterol HCl 1.25 mg/3 mL 1.25 mg inhalation Q4H PRN Wheezing 12/29/22 08/02/23 History solution for nebulization triamcinolone acetonide 0.1 % 1 applic topical BID PRN Rash 12/29/22 08/02/23 History topical cream cyanocobalamin (vitamin B-12) 1,000 mcg PO QAM 03/08/23 08/02/23 History 1,000 mcg tablet (Vitamin B-12) aspirin 81 mg tablet,delayed 81 mg PO QAM #30 tabs 03/11/23 08/02/23 Rx release atorvastatin 80 mg tablet (Lipitor) 80 mg PO DAILY #30 tabs 03/11/23 08/02/23 Rx pantoprazole 40 mg tablet,delayed 40 mg PO BID 30 days #60 tabs 04/06/2307/09 Rx release (Protonix) albuterol sulfate 90 mcg/actuation 2 puff inhalation Q4H PRN 04/26/23 08/02/23 Rx aerosol inhaler Shortness Of Breath Or Wheezing #8.5 grams escitalopram oxalate 10 mg tablet 10 mg PO DAILY 06/13/23 08/02/23 History fluticasone fur. 200 mcg-umeclid 1 inh inhalation DAILY 06/13/23 08/02/23 History 62.5 mcg-vilant 25 mcg inhalat.powder (Trelegy Ellipta) diclofenac sodium 1 % topical gel 2 g EXT Q4H PRN neck pain #100 06/16/23 08/02/23 Rx (Voltaren Arthritis Pain) grams oxycodone 5 mg tablet 5 mg PO Q6H PRN pain #15 tabs 06/16/23 08/02/23 Rx CPAP Machine #1 ea 06/24/23 08/02/23 Rx CPAP Supplies #1 ea 06/24/23 08/02/23 Rx baclofen 5 mg tablet 5 mg PO TID PRN muscle spasms 08/02/23 08/02/23 History furosemide 40 mg tablet 40 mg PO QAM PRN Fluid 08/02/23 08/02/23 History accumulation, weight gain Past Med/Surg History Problem List Chronic shortness of breath Elevated LFTs Septic bursitis of elbow (Acute) Myofascial pain Neck muscle spasm Spasm of right trapezius muscle Elevated transaminase level Elevated troponin I level (Acute) Acute neck pain (Acute) COPD (chronic obstructive pulmonary disease) (Acute) Bilateral wheezing (Acute) SOB (shortness of breath) (Acute) TAYLOR (obstructive sleep apnea) Cannot tolerate device Dizziness (Acute) Headache (Acute) Abdominal pain (Acute) Acute respiratory failure with hypoxemia Thrombus of aorta (Acute) Acute hypotension (Acute) Chest pain (Acute) Encounter for pre-operative examination Hypertension (Chronic) Acute exacerbation of chronic obstructive airways disease (Acute) Tobacco abuse Obesity (Acute) Hypertrophy of nasal turbinates (Acute) Chronic sinusitis (Acute) Chronic post-thoracotomy pain (Acute) Cervical radiculopathy (Acute) Arthritis (Acute) Acquired deviated nasal septum (Acute) Cessation of tobacco use in previous 12 months Nasal polyp Gastritis Closed compression fracture of lumbar vertebra (Acute) Closed fracture of radial head (Acute) Fall (Acute) Left wrist sprain Compression fracture of L5 vertebra Pulmonary nodule seen on imaging study Multiple pulmonary nodules COPD with emphysema Chronic bronchitis Current smoker Acute bronchitis COPD exacerbation (Acute) Bronchitis (Acute) Chest pain (Acute) COPD exacerbation (Acute) Leukocytosis (Acute) Shortness of breath at rest (Acute) Post-nasal drip Chronic - stable Viral upper respiratory illness hx Anxiety (Chronic) HLD (hyperlipidemia) (Chronic) Thoracic spinal stenosis (Chronic) Diaphragmatic hernia (Chronic) GERD (gastroesophageal reflux disease) (Chronic) Well controlled and stable Neuropathy (Chronic) COPD, moderate (Chronic) Breathing stable Medical History Chronic respiratory failure On oxygen at night in the past - but no longer needs per patient Hx of migraines Sleep apnea No device History of COVID-19 2019, moderate symptoms > resolved 2020, mild symptoms > resolved Pneumothorax Hx- complication from pain injection- resolved Histoplasmosis 2002- treated Surgical History History of esophagogastroduodenoscopy (EGD) Hx of colonoscopy History of open reduction and internal fixation (ORIF) procedure right shoulder History of total replacement of left shoulder joint History of sinus surgery History of placement of chest tube History of hand surgery Left femoral shaft fracture Dutch placed H/O total hip arthroplasty left side H/O elbow surgery H/O exploratory thoracotomy "Left thoracotomy wedge biopsy of left upper lobe with excision of lesion or nodule & frozen section 2002" H/O hernia repair "[facility] incarcerated supraumbilical hernia repair open no mesh 02/17/01" Family History Father Heart disease Hypertension Brother Cancer Hypertension Stroke Heart disease Mother Cancer Other Leukemia No family history of bleeding disorder Non-Hodgkin lymphoma Denies family history of Hearing loss Asthma Social History Smoking Status: Current every day smoker Tobacco Type: Cigarettes Age Started Using Tobacco: 11; packs per day: 1; Cigarettes Per Day: 1/4 pack; Second Hand Exposure: No; Do You Dip or Chew Tobacco: No; Tobacco Cessation Education Requested by Patient: No Hx Alcohol Use: Yes Alcohol type: hard liquor Hx Substance Use: No Preferred Language: Uzbek Communication Ability: Effective 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 Physical Exam Right upper extremity: He is very guarded about his elbow. He did not participate in exam. Seemed in mild distress because of the pain in his arm. He had a fluctuance to the olecranon bursal area in the area of the previous trauma scar. He also remains tender along the lateral side and about the radial head. He was mildly tender anteriorly in the antecubital fossa. Very guarded with pronation supination. Prefer to maintain about 10 degrees of elbow flexion we could achieve extension but with pain. She is quite irritable about the bursal area but cannot rule out joint involvement. Constitutional well developed and well nourished; no acute distress and not intoxicated appearing Respiratory normal respiratory effort; no respiratory distress Cardiovascular Extremities: normal capillary refill; no edema Skin no rashes, warm and dry Psychiatric A+Ox3, euthymic affect Results & Data Results & Data Laboratory Results H & H 08/02/23 Range/Units 09:50 Hgb 13.3 L (14.0-18.0) g/dl Hct 39.3 L (42.0-52.0) % Coagulation 08/02/23 Range/Units 09:50 INR 1.0 (0.9-1.1) Microbiology 08/02/23 11:27 Gram Stain - Final Elbow,Right Elbow aspiration was performed but the ER physician. In speaking with him, it is possible that he was in the bursa versus the joint. Synovial white cell was 33 K. The Gram stain showed no organisms initially. Diagnostic Findings X-ray right elbow: Some punctate calcifications from prior trauma. 2 radial head compressible screws without evidence of loosening. Near-anatomic radial head alignment. No excessive degeneration. Questionable effusion. Significant olecranon bursal swelling. PG Care Time/CCT Total # of Minutes Spent Total Time Spent with Patient: Total time spent is greater than 50% in coordination of care (as documented) at patient's floor/unit and/or counseling patient: Coding Level of Care Code 79999 OFFICE CONSULT LVL M Diagnoses Septic bursitis of elbow M71.121 Laterality: right (1) Septic bursitis of elbow Laterality: right Qualified Code(s): M71.121 - Other infective bursitis, right elbow
[2023-08-02] MEDS: ALBUT/IPRATROP 3MG/0.5MG NEB 3 ML VIAL NEB STA (16:12)
[2023-08-02] MEDS: HYDROmorphone INJ 0.5 MG/0.5 ML SYR IV STA (16:13)
[2023-08-02] MEDS ORDERED: ALUMINUM/MAGNESIUM SUSP 30 ML UDC PO PRN (17:03)
[2023-08-02] MEDS ORDERED: MAGNESIUM HYDROXIDE SUSP 30 ML UDC PO PRN (17:03)
[2023-08-02] MEDS ORDERED: KETOROLAC TROMETHAMINE 15 MG/ML VIAL IV PRN (17:03)
[2023-08-02] MEDS ORDERED: POLYETHYLENE (MIRALAX) 17 GM PACK PO PRN (17:03)
[2023-08-02] MEDS ORDERED: ACETAMINOPHEN 325 MG TAB PO PRN (17:03)
[2023-08-02] MEDS: ALBUT/IPRATROP 3MG/0.5MG NEB 3 ML VIAL NEB SCH (17:35)
[2023-08-02] MEDS ORDERED: ALBUTEROL HFA 8 GM INHALER INH PRN (17:38)
[2023-08-02] MEDS: oxyCODONE HCL IR 5 MG TAB (IMMEDIATE RELEASE) PO PRN (20:01)
[2023-08-02] MEDS: HEPARIN SOD 5,000 UNIT/0.5 ML VIAL SQ SCH (21:14)
[2023-08-02] MEDS: PANTOprazole 40 MG TAB PO SCH (21:14)
[2023-08-02] MEDS: PREGABALIN 100 MG CAP PO SCH (21:14)
[2023-08-02] MEDS: buPROPion SR 150 MG TABCR PO SCH (21:14)
[2023-08-02] MEDS: HYDROmorphone INJ 0.5 MG/0.5 ML SYR IV PRN (21:21)
[2023-08-02] MEDS: MELATONIN 3 MG TAB PO PRN (22:51)
[2023-08-02] MEDS: VANCOMYCIN HCL 1,250 MG in SODIUM CHLORIDE 0.9% 250 ML IV SCH (22:59)
--- NOTE | 2023-08-03 07:17 | Orthopedic Progress Note ---
Date of Service August 03, 2023 Assessment & Plan (1) Septic bursitis of elbow: Clinical improvement with presentation of possible septic bursitis versus arthritis. With the improvement this morning, I would like to aspirate the elbow joint with certain to use in the lateral soft spot. Continue n.p.o. and tentatively scheduled for washout this afternoon until aspiration later this morning. Follow ER aspiration culture Broad spectrum coverage for now. Follow-up with labs Should be on soft tissue rest with the right upper extremity. May ice and elevate. Subjective Reports some improvement in pain today. He can move it better. No fevers overnight. Think she is getting better. Review of Systems All systems reviewed & are unremarkable except as noted in HPI & below. Physical Exam Right elbow: Slightly less edema in the olecranon bursa. No erythema today. There is a slight ecchymotic region over the olecranon. Still has some joint line tenderness particularly around the radial head and antecubital fossa. Questionable palpable effusion at the lateral soft spot. Can achieve full extension with significant pain as well as full flexion. Pronation supination is much more comfortable but sharply painful at end range. Neurovascular intact Constitutional WD/WN, vitals as above no acute distress and not intoxicated appearing Respiratory normal respiratory effort; no labored breathing Cardiovascular Extremities: normal capillary refill Results & Data Results & Data Laboratory Results . Diagnostic Findings No labs available this morning yet PG Care Time/CCT Total # of Minutes Spent Total Time Spent with Patient: Total time spent is greater than 50% in coordination of care (as documented) at patient's floor/unit and/or counseling patient: Coding Level of Care Code 96612 SUB INP/OBS CARE 3/50MIN Diagnoses Septic bursitis of elbow M71.121 Laterality: right (1) Septic bursitis of elbow Laterality: right Qualified Code(s): M71.121 - Other infective bursitis, r ight elbow
[2023-08-03] MEDS: ATORVASTATIN 40 MG TAB PO SCH (08:01)
[2023-08-03] MEDS: FLUTICASONE FUROATE 200MCG 14 PUFFS/INHALER INH SCH (08:01)
[2023-08-03] MEDS: ASPIRIN 81 MG ECTAB PO SCH (08:01)
[2023-08-03] MEDS: CYANOCOBALAMIN (B-12) 500 MCG TABLET PO SCH (08:01)
[2023-08-03] MEDS: UMECLIDINIUM/VILANTEROL 62.5/25MCG 7 PUFFS/INHALER INH SCH (08:02)
[2023-08-03] MEDS: ESCITALOPRAM OXALATE 10 MG TAB PO SCH (08:02)
[2023-08-03 08:28] LABS: Basophils # (auto) 0.01 K/uL (0.00-0.20); Basophils % (auto) 0.1 %; Eosinophils # (auto) 0.01 K/uL (0.00-0.50); Eosinophils % (auto) 0.1 %; Hematocrit (blood only) 36.6 % (42.0-52.0); Hemoglobin 12.7 g/dl (14.0-18.0); Immature Granulocytes # (auto) 0.06 K/uL (0.01-0.20); Immature Granulocytes % (auto) 0.4 %; Lymphocytes # (auto) 1.21 K/uL (1.20-3.40); Lymphocytes % (auto) 7.5 %; Mean Corpuscular Hemoglobin 31.8 pg (25.0-34.0); Mean Corpuscular Hgb Conc 34.7 g/dL (32.0-36.0); Mean Corpuscular Volume 91.7 fL (80.0-100.0); Mean Platelet Volume 11.1 fL (9.4-12.4); Monocytes # (auto) 1.22 K/uL (0.11-0.59); Monocytes % (auto) 7.6 %; Neutrophils # (auto) 13.54 K/uL (1.40-6.50); Neutrophils % (auto) 84.3 %; Platelet Count 264 K/uL (130-400); RDW Coefficient of Variation 15.6 % (11.5-14.5); RDW Standard Deviation 52.7 fL (36.4-46.3); Red Blood Count 3.99 M/uL (4.70-6.10); White Blood Count 16.05 K/ul (4.8-10.8)
--- NOTE | 2023-08-03 08:45 | Communication Note ---
Date of Service: August 03, 2023 Requested to aspirate patients right elbow by Dr. Willis. Patient agreed to proceed with the procedure. Right elbow was sterilely prepped with alcohol and using aseptic technique aspiration of the elbow joint was attempted through the posterior lateral aspect. I did not get any fluid out of the elbow. He tolerated the procedure well. No complications. Addendum August 03, 2023 10:25 With absent joint effusion on repeat attempt today, clinical improvement overnight, and existing aspirate culture, will cancel surgery for today. Continue abx coverage for soft tissue infection. Will re-evaluate progress in the am. Tailor abx to culture as able. Laboratory Tests 08/02/23 08/03/23 09:50 07:59 WBC 14.62 H 16.05 H ESR 23 H C-Reactive Protein 4.34 H
[2023-08-03 08:48] LABS: Albumin Globulin Ratio 1.3 (0.9-2); Albumin Level 3.2 gm/dl (3.4-5.0); Bilirubin,Total 0.3 mg/dl (0.2-1.0); Calcium 7.7 mg/dl (8.6-10.3); Est GFR (African American) 108.5 ml/min; Est GFR (Non-African American) 93.6 ml/min; Globulin 2.5 gm/dl (2.5-4.0); Potassium 3.9 mmol/L (3.5-5.1); Total Protein 5.7 gm/dl (6.0-8.3)
[2023-08-03] MEDS ORDERED: NON-FORMULARY MEDICATION (Fluticasone-Umeclidin-Vilanter [Trelegy Ellipta] 200-62.5-25 mcg INH SCH (09:00)
--- NOTE | 2023-08-03 10:41 | Pharmacy Report ---
Pharmacy PK ABX Note - Date of Service August 03, 2023 - Assessment and Plan Assessment 67 year old M receiving vancomycin/ceftraixone for treatment of possible septic bursitis of right elbow. Pertinent microbiologic data includes: right elbow aspirate culture pending. Per documentation today, no joint aspirate today, clinical improvement overnight, no longer going to OR today. Will follow culture. Plan Vancomycin * Loading dose: 2000 mg IV x 1 * Maintenance dose: 1250 mg IV every 12 hours * Regimen is predicted to achieve target AUC/KIKE of 400-600 mg/L.hr * Random level ordered for 08/03 @ 1100 Pharmacy will continue to follow and will adjust dose/frequency as necessary. Thank you. Pharmacy has transitioned to AUC monitoring for vancomycin. AUC/KIKE is the preferred PK/PD target and is associated with decreased risk of nephrotoxicity compared to traditional trough targets.
--- NOTE | 2023-08-03 13:34 | Hospitalist Progress Note ---
Date of Service August 03, 2023 Assessment & Plan (1) Septic bursitis of elbow: (2) Chronic shortness of breath: (3) Elevated LFTs: Plan per previous hospitalist notes with addendum: Florentin Franks is a 67 y/o M with PMHx of hyperlipidemia, COPD/pulmonary emphysema, chronic diastolic heart failure (EF 60 to 65% - TTE 2023), PVD, TAYLOR (CPAP intolerance), aortic atherosclerosis, GERD with esophagitis, chronic pain syndrome, senile osteoporosis, descending aortic thrombus [NOT on anticoagulation therapy], hx of PE, tobacco use disorder, adjustment disorder with depressed mood/CARLOS and other problems listed below presented to the ED today for evaluation of right elbow pain x 5 days and was found to have septic bursitis of his right elbow. Septic Bursitis of Right Elbow ? Possible Septic Arthritis Admitting Imaging: * R Elbow XR --> "Dorsal soft tissue swelling with no acute fracture clearly identified. There is chronic deformity of the radial head with 2 screws/screw fragments in place. A buttress plate is partially visualized along the humeral shaft. Arthritic change is seen at the elbow joint with no dislocation identified. There is an elbow joint effusion." * Venous Doppler US of RUE --> "There is normal compressibility of the deep venous system from the forearm through the subclavian vein. Normal vascular flow is currently identified. No evidence of superficial thrombosis is identified." Patient's R elbow joint effusion was aspirated in the ED. [place] [address]. Synovial fluid gram stain revealed many polys, but NO organisms seen. ER provider (Dr. Ruff) consulted orthopedics. Orthopedics (Dr. Bradley Willis) saw and evaluated the patient. Recommends to follow aspiration culture, broad spectrum ABX coverage for now. NPO at midnight pending tomorrow's examination. Patient may require I&D of R elbow if no improvement. Patient received 2g IV Rocephin and 2g IV Vancomycin in the ED. He also was administered 8mg of morphine for pain. -WBC 14.62 on admission -Lyme disease screen negative -Lyme specimen source pending -Follow synovial fluid culture -Continue broad ABX coverage w/ Rocephin + Vancomycin -PRN pain regimen in place -Formal ortho consult placed -NPO at midnight pending ?I&D in AM w/ ortho if no improvement -PRN bowel regimen, PRN nausea relief -Repeat CBC w/ diff in AM 08/02 Joint fluid aspirate pending Blood cultures pending Continue vancomycin plus ceftriaxone IV N.p.o. postmidnight for planned washout tomorrow by Ortho Elevated LFTs -AST 47, ALT 78 on admission -Hold hepatotoxic medications when able -Repeat CMP in AM, monitor LFTs Improving Chronic Obstructive Pulmonary Disease (COPD) Chronic Shortness of Breath, Recent Cough -Pt complains of constant SOB, recent cough -No acute findings on CXR -Follows w/ [facility] -Will schedule Duonebs Q4H -Continue [employer] Trelegy, PRN albuterol inhaler -Could consider steroids if no improvement in breathing -EKG w/ chest pain as needed 08/02 Very faint wheeze Continue DuoNeb every 6 hours Continue usual fluticasone and Anoro Ellipta inhalers Monitor closely Hyperlipidemia: Continue [employer]ER statin therapy Hx of Adjustment Disorder w/ Depressed Mood: Continue [employer] psychiatric medications Tobacco Use Disorder -Currently smoking 1/4 pack per day -Smoking cessation education ordered -Consider nicotine patch PRN, can continue [employer] OFF[employer]ER bupropion GERD w/ Esophagitis: Continue [employer]ER pantoprazole Hx of Neuropathy: Continue [employer]ER pregabalin DVT Prophylaxis: SQ Heparin Code Status: FULL CODE PCP: Ajit Moreno MD Dispo: Lives at home with his Anticipate return to home medically stable Admission and Anticipated Discharge Date Admission Date: August 02, 2023 Subjective Follow-up for right septic bursitis, etc. Seen resting in bed, comfortable, not in distress Patient's at the bedside visiting States he feels improved today compared to yesterday Less pain, more range of motion with the right elbow No fevers or chills No other new symptom Review of Systems Review of Systems: all noted and negative except for above Physical Exam Physical Exam: General- oriented x 3, not in distress, speaks in sentences with no effort or accessory muscle use Eyes- anicteric Neck- no JVD Lungs- clear breath sounds bilaterally, no rales/wheezes Heart- normal rate, regular rhythm; no murmurs Abdomen- normal bowel sounds, nondistended, soft, nontender Extremities- no pretibial edema, no calf tenderness Right elbow-mild edema, mild erythema, mild warmth, mild tenderness, mostly full range of motion Neuro- alert, oriented x 3; no gross focal neurologic deficits Skin- warm & dry Results & Data Results & Data Vital Signs (Past 12 Hours) Vital Signs Temp Pulse Pulse Resp BP Pulse Ox O2 Del Method 08/03/23 11:31 36.7 C 78 20 111/62 90 Room Air 08/03/23 11:02 78 17 90 Room Air 08/03/23 08:26 36.7 C 78 20 104/62 92 Room Air 08/03/23 07:21 Room Air 08/03/23 07:21 78 15 92 Room Air 08/03/23 07:12 73 08/03/23 04:00 36.5 C 81 18 101/51 L 94 Nasal Cannula 08/03/23 02:48 81 16 90 Nasal Cannula O2 Flow Rate FiO2 08/03/23 11:31 08/03/23 11:02 08/03/23 08:26 08/03/23 07:21 08/03/23 07:21 21 08/03/23 07:12 08/03/23 04:00 2 08/03/23 02:48 2 all noted and reviewed including below (1) Septic bursitis of elbow Laterality: right Qualified Code(s): M71.121 - Other infective bursitis, right elbow
[2023-08-03] MEDS: cefTRIAXone SODIUM 2,000 MG/50 ML BAG IV SCH (14:31)
[2023-08-03] MEDS: ADVANCED PROBIOTIC 625 MG CAPSULE PO SCH (15:00)
[2023-08-03] MEDS ORDERED: ALBUT/IPRATROP 3MG/0.5MG NEB 3 ML VIAL NEB SCH (18:00)
[2023-08-03] MEDS: ALBUT/IPRATROP 3MG/0.5MG NEB 3 ML VIAL NEB SCH (20:08)
--- NOTE | 2023-08-04 09:05 | Orthopedic Progress Note ---
Date of Service August 04, 2023 Assessment & Plan (1) Septic bursitis of elbow: Regression of his clinical improvement seen yesterday. Still an atypical presentation of bursitis versus arthritis. The tap was dry yesterday to the joint. With the irregular presentation and regression for what I would expect, I would prefer to rule out osteomyelitis. Therefore, I did order an MRI of his right elbow to be done urgently. This will help guide care. No absolute indications for surgery today but cannot rule out in the near future. Will allow him to eat today while waiting for the MRI. Will reorganize diagnosis and plan following the MRI. Continued antibiotic coverage and culture watch for now. Should be on soft tissue rest with the right upper extremity. May ice and elevate. Subjective Reports some regression in his symptoms. The elbow seems to be a bit more achy and painful. Has not lost any motion. Has noted some increased redness. Otherwise he feels okay. Review of Systems All systems reviewed & are unremarkable except as noted in HPI & below. Physical Exam Right elbow: Some more apparent erythema over the dorsal aspect surrounding the olecranon. No real increase in palpable effusion. He has full range of motion but pain at end range. Irritable but full pronation supination. No crepitus. Muscle compartments all soft but there is some generalized tenderness about the elbow joint. The dorsal skin is somewhat more indurated today. There is some very minimal fluctuance to the bursal area which is atypical due to previous trauma and incision. Constitutional WD/WN, vitals as above no acute distress and not intoxicated appearing Respiratory normal respiratory effort; no labored breathing Cardiovascular Extremities: normal capillary refill Results & Data Results & Data Laboratory Results No new labs this morning. I did order CBC, ESR, CRP. Will follow. Diagnostic Findings Nothing needed with regard to x-ray. I think an MRI be useful. PG Care Time/CCT Total # of Minutes Spent Total Time Spent with Patient: Total time spent is greater than 50% in coordination of care (as documented) at patient's floor/unit and/or counseling patient: Coding Level of Care Code 69012 SUB INP/OBS CARE 3/50MIN Diagnoses Septic bursitis of elbow M71.121 Laterality: right (1) Septic bursitis of elbow Laterality: right Qualified Code(s): M71.121 - Other infective bursitis, right elbow
[2023-08-04 11:39] LABS: Basophils # (auto) 0.03 K/uL (0.00-0.20); Basophils % (auto) 0.3 %; Eosinophils # (auto) 0.12 K/uL (0.00-0.50); Eosinophils % (auto) 1.3 %; Hematocrit (blood only) 36.5 % (42.0-52.0); Hemoglobin 12.4 g/dl (14.0-18.0); Immature Granulocytes # (auto) 0.06 K/uL (0.01-0.20); Immature Granulocytes % (auto) 0.7 %; Lymphocytes # (auto) 2.22 K/uL (1.20-3.40); Lymphocytes % (auto) 24.5 %; Mean Corpuscular Hemoglobin 31.3 pg (25.0-34.0); Mean Corpuscular Volume 92.2 fL (80.0-100.0); Monocytes # (auto) 0.79 K/uL (0.11-0.59); Monocytes % (auto) 8.7 %; Neutrophils # (auto) 5.84 K/uL (1.40-6.50); Neutrophils % (auto) 64.5 %; Platelet Count 243 K/uL (130-400); RDW Coefficient of Variation 15.8 % (11.5-14.5); RDW Standard Deviation 53.2 fL (36.4-46.3); Red Blood Count 3.96 M/uL (4.70-6.10); White Blood Count 9.06 K/ul (4.8-10.8)
[2023-08-04] MEDS: LORazepam 0.5 MG TAB PO STA (12:12)
[2023-08-04] MEDS: VANCOMYCIN LEVEL ONE (12:14)
[2023-08-04 12:51] LABS: Creatinine Clr Calc Pharmacy 92.4 ml/min; Est GFR (African American) 104.6 ml/min; Est GFR (Non-African American) 90.2 ml/min
--- NOTE | 2023-08-04 16:15 | Magnetic Resonance Report ---
MRI OF THE RIGHT ELBOW WITHOUT IV CONTRAST CLINICAL HISTORY: Right elbow pain. Infection. COMPARISON STUDY: Radiographs of the right elbow dated 08/02/2023. TECHNIQUE: MRI of the right elbow was performed utilizing various T1 and T2-weighted sequences in the axial and sagittal planes. IV contrast was not administered for this examination. There is susceptib ility artifact from metallic hardware. The examination is significantly degraded by motion artifact. FINDINGS: There is chronic deformity of the radial head with susceptibility artifact from cortical sc rews. Increased T2 signal within the capitellum is likely related to artifact from the radial head felipe rdware. There is no MRI evidence of acute fracture. There is no bony abnormality or marrow edema iden tified to suggest osteomyelitis. Arthritic change is seen throughout the joint with full-thickness ca rtilage loss at the radiocapitellar articulation. There is chronic tearing of the radial collateral l igament. There is tendinopathy with high-grade tearing at the humeral attachment of the common extens or tendon. A few fibers likely remain intact. Findings suggest postsurgical change at this site. The ulnar collateral ligament appears maintained, and the common flexor tendon appears intact. The biceps and brachioradialis tendons are maintained. There is tendinopathy at the attachment of triceps tendo n. The fibers appear intact. There is a joint effusion. Soft tissue edema is seen around the elbow, g reatest dorsally. There is a large amount of bursal fluid posterior to the elbow. The regional muscul ature is normal in appearance. IMPRESSION: 1. No acute bony abnormality is identified. There is no MRI evidence of osteomyelitis as clinically q ueried. 2. There is soft tissue edema around the elbow, the large amount of bursal fluid seen posteriorly. Co rrelate clinically for evidence of bursitis. The sterility of this fluid cannot be assessed on imagin g. 3. There is chronic deformity of the radial head with postsurgical and arthritic change. 4. There is chronic tearing of the radial collateral ligament. 5. There is tendinopathy and high-grade partial-thickness tearing at the humeral attachment of the co mmon extensor tendon. A few fibers remain intact, there has likely been surgery at this site. 6. Nonspecific joint effusion. Dictated: 08/04/2023 3:20 PM Transcribed: 08/04/2023 3:36 PM Alberto [id number] MEHREEN_Marvin [id number] Electronically signed by: Wayne Baez M.D. 08/04/2023 4:14 PM
[2023-08-04] MEDS: CEFEPIME 2,000 MG in SYRINGE 0 ML IV SCH (18:33)
--- NOTE | 2023-08-04 19:03 | Hospitalist Progress Note ---
Date of Service August 04, 2023 Assessment & Plan (1) Septic bursitis of elbow: (2) Chronic shortness of breath: (3) Elevated LFTs: Plan per previous hospitalist notes with addendum: Florentin Franks is a 67 y/o M with PMHx of hyperlipidemia, COPD/pulmonary emphysema, chronic diastolic heart failure (EF 60 to 65% - TTE 2023), PVD, TAYLOR (CPAP intolerance), aortic atherosclerosis, GERD with esophagitis, chronic pain syndrome, senile osteoporosis, descending aortic thrombus [NOT on anticoagulation therapy], hx of PE, tobacco use disorder, adjustment disorder with depressed mood/CARLOS and other problems listed below presented to the ED today for evaluation of right elbow pain x 5 days and was found to have septic bursitis of his right elbow. Septic Bursitis of Right Elbow ? Possible Septic Arthritis Admitting Imaging: * R Elbow XR --> "Dorsal soft tissue swelling with no acute fracture clearly identified. There is chronic deformity of the radial head with 2 screws/screw fragments in place. A buttress plate is partially visualized along the humeral shaft. Arthritic change is seen at the elbow joint with no dislocation identified. There is an elbow joint effusion." * Venous Doppler US of RUE --> "There is normal compressibility of the deep venous system from the forearm through the subclavian vein. Normal vascular flow is currently identified. No evidence of superficial thrombosis is identified." Patient's R elbow joint effusion was aspirated in the ED. [place] [address]. Synovial fluid gram stain revealed many polys, but NO organisms seen. ER provider (Dr. Ruff) consulted orthopedics. Orthopedics (Dr. Bradley Willis) saw and evaluated the patient. Recommends to follow aspiration culture, broad spectrum ABX coverage for now. NPO at midnight pending tomorrow's examination. Patient may require I&D of R elbow if no improvement. Patient received 2g IV Rocephin and 2g IV Vancomycin in the ED. He also was administered 8mg of morphine for pain. -WBC 14.62 on admission -Lyme disease screen negative -Lyme specimen source pending -Follow synovial fluid culture -Continue broad ABX coverage w/ Rocephin + Vancomycin -PRN pain regimen in place -Formal ortho consult placed -NPO at midnight pending ?I&D in AM w/ ortho if no improvement -PRN bowel regimen, PRN nausea relief -Repeat CBC w/ diff in AM 08/02 Joint fluid aspirate pending Blood cultures pending Continue vancomycin plus ceftriaxone IV N.p.o. postmidnight for planned washout tomorrow by Ortho 08/03 Have increased pain, edema, erythema Elbow MRI: No acute bony abnormality is identified. There is no MRI evidence of osteomyelitis as clinically queried. There is soft tissue edema around the elbow, the large amount of bursal fluid seen posteriorly. Correlate clinically for evidence of bursitis. The sterility of this fluid cannot be assessed on imaging. Ceftriaxone changed to cefepime IV Continue IV vancomycin ID consulted Ortho service on board Elevated LFTs -AST 47, ALT 78 on admission -Hold hepatotoxic medications when able -Repeat CMP in AM, monitor LFTs Improving Chronic Obstructive Pulmonary Disease (COPD) Chronic Shortness of Breath, Recent Cough -Pt complains of constant SOB, recent cough -No acute findings on CXR -Follows w/ [facility] Pulm -Will schedule Duonebs Q4H -Continue FORMS BUILDER Trelegy, PRN albuterol inhaler -Could consider steroids if no improvement in breathing -EKG w/ chest pain as needed 08/02 Very faint wheeze Continue DuoNeb every 6 hours Continue usual fluticasone and Anoro Ellipta inhalers Monitor closely 08/03 improvinb Hyperlipidemia: Continue FORMS BUILDER statin therapy Hx of Adjustment Disorder w/ Depressed Mood: Continue FORMS BUILDER psychiatric medications Tobacco Use Disorder -Currently smoking 1/4 pack per day -Smoking cessation education ordered -Consider nicotine patch PRN, can continue FORMS BUILDER bupropion GERD w/ Esophagitis: Continue FORMS BUILDER pantoprazole Hx of Neuropathy: Continue FORMS BUILDER pregabalin DVT Prophylaxis: SQ Heparin Code Status: FULL CODE PCP: Ajit Moreno MD Dispo: Lives at home with his Anticipate return to home medically stable Admission and Anticipated Discharge Date Admission Date: August 02, 2023 Subjective Follow-up for septic bursitis, etc. Seen resting in bed, not in distress Having increased elbow pain today, less range of motion due to pain No fevers or chills, nausea vomiting No other new symptoms Review of Systems Review of Systems: all noted and negative except for above Physical Exam Physical Exam: General- oriented x 3, not in distress, speaks in sentences with no effort or accessory muscle use Eyes- anicteric Neck- no JVD Lungs- clear breath sounds bilaterally, no rales/wheezes Heart- normal rate, regular rhythm; no murmurs Abdomen- normal bowel sounds, nondistended, soft, nontender Extremities- no pretibial edema, no calf tenderness Right elbow-increased erythema surrounding the elbow, also warmth, tenderness Full range of motion due to pain Neuro- alert, oriented x 3; no gross focal neurologic deficits Skin- warm & dry Results & Data Results & Data Vital Signs (Past 12 Hours) Vital Signs Temp Pulse Pulse Resp BP Pulse Ox O2 Del Method 08/04/23 16:31 36.7 C 84 18 146/82 H 100 Room Air 08/04/23 11:52 36.7 C 72 18 152/84 H 95 Room Air 08/04/23 08:20 36.7 C 73 18 156/96 H 91 Room Air 08/04/23 07:59 68 08/04/23 07:10 76 16 96 Room Air all noted and reviewed including below (1) Septic bursitis of elbow Laterality: right Qualified Code(s): M71.121 - Other infective bursitis, right elbow
--- NOTE | 2023-08-05 07:15 | Pharmacy Report ---
Pharmacy PK ABX Note - Date of Service August 05, 2023 - Assessment and Plan Assessment 08/04: * Vanc level of 11.5 mcg/mL on 08/03. Estimated AUC/KIKE of 497 mg/L.hr, which is at goal. * MRI from 08/03 revealed soft tissue edema around elbow, large amount of bursal fluid and no evidence of osteomyelitis. To OR today for R elbow I&D. 67 year old M receiving vancomycin/ceftraixone for treatment of possible septic bursitis of right elbow. Pertinent microbiologic data includes: right elbow aspirate culture pending. Per documentation today, no joint aspirate today, clinical improvement overnight, no longer going to OR today. Will follow culture. Plan Vancomycin * Continue current regimen: 1250 mg IV every 12 hours * Predicted AUC at steady state: 497 mg/L.hr, target AUC/KIKE of 400-600 mg/L.hr * Will repeat level in the next 48-72 hours if therapy is continued and/or change in patient clinical status Pharmacy will continue to follow and will adjust dose/frequency as necessary. Thank you. Pharmacy has transitioned to AUC monitoring for vancomycin. AUC/KIKE is the preferred PK/PD target and is associated with decreased risk of nephrotoxicity compared to traditional trough targets.
--- NOTE | 2023-08-05 07:23 | Orthopedic Progress Note ---
Date of Service August 05, 2023 Assessment & Plan (1) Septic bursitis of elbow: Minimal clinical improvement over the last 2 days on IV antibiotics. MRI evidence of fluid collection communicating to the joint. Clinical progress will likely be greatly improved by decompression of the joint fluid percolating into the bursal space. I told Mr. Sewell today that I recommended right elbow irrigation debridement to remove the risk of infection to the joint. Reviewed the risk, benefits and alternatives. He was agreeable to proceed. Informed consent discussion was had at the bed. Will document later today in the preop holding area. Continue NPO. Continue current antibiotic plan. Subjective Reports no improvement since yesterday. The elbow is still achy with motion and tender to touch in the dorsal side. Denies any fevers or chills. Tolerating antibiotics. Review of Systems All systems reviewed & are unremarkable except as noted in HPI & below. Physical Exam Right elbow: Full range of motion today but remains painful at end range of flexion, extension, pronation, supination. Neurovascular intact. On palpation there is a mild fluid collection over the olecranon bursal area and he has tenderness along the joint line including anteriorly on the antecubital fossa. 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 Constitutional WD/WN, vitals as above no acute distress and not intoxicated appearing Respiratory normal respiratory effort; no labored breathing Cardiovascular Extremities: normal capillary refill Results & Data Results & Data Laboratory Results White blood cell count and CRP trended toward normal. ESR remains high. Diagnostic Findings MR imaging was evaluated. Agree with radiologist that there is a subcutaneous bursal fluid collection. The bursal structures are disturbed due to previous trauma and open incision. The fluid collection seems to communicate posterior laterally into the joint space. PG Care Time/CCT Total # of Minutes Spent Total Time Spent with Patient: Total time spent is greater than 50% in coordination of care (as documented) at patient's floor/unit and/or counseling patient: Coding Level of Care Code 39446 SUB INP/OBS CARE 3/50MIN Diagnoses Septic bursitis of elbow M71.121 Laterality: right (1) Septic bursitis of elbow Laterality: right Qualified Code(s): M71.121 - Other infective bursitis, right elbow
[2023-08-05] MEDS: ONDANSETRON INJ 2 MG/ML 2 ML VIAL IV PRN (11:13)
[2023-08-05] MEDS: diphenhydrAMINE Capsule 25 MG CAP ONE (14:05)
--- NOTE | 2023-08-05 15:12 | Anesthesiology Consultation ---
Date of Service August 05, 2023 Assessment & Plan Chart Review Chart Review: Acceptable Risk for Surgery and Patient NOT seen in Pre Admission Testing Consults Requested none ASA ASA4 Proposed Anesthesia Anesthesia Type: General History Surgery Operation Date: 08/03/23 07:00 Proposed Procedures p Right Elbow Incision and Drainage - Bradley Willis MD Operation Date: 08/05/23 07:00 Proposed Procedures p Right Elbos Incision and Drainage - Bradley Willis MD Height/Weight Height: 5 ft 6 in Weight: 96.4 kg Allergies Allergy/AdvReac Type Severity Reaction Status Date / Time No Known Allergies Allergy Verified 06/16/23 07:11 Medications Home Medications Medication Instructions Recorded Confirmed Last Taken pregabalin 100 mg capsule (Lyrica) 100 mg PO BID 10/16/17 08/02/23 06/12/23 meclizine 12.5 mg tablet 12.5 mg PO TID PRN Dizziness 06/28/21 08/02/23 Unknown bupropion HCl 150 mg tablet,12 hr 150 mg PO BID 04/07/22 08/02/23 06/12/23 sustained-release (Wellbutrin SR) ondansetron 8 mg disintegrating 8 mg PO Q8H PRN Nausea 04/07/22 08/02/23 06/12/23 tablet clobetasol 0.05 % topical cream 1 applic topical BID PRN Rash 12/29/22 08/02/23 Unknown levalbuterol HCl 1.25 mg/3 mL 1.25 mg inhalation Q4H PRN Wheezing 12/29/22 08/02/23 Unknown solution for nebulization triamcinolone acetonide 0.1 % 1 applic topical BID PRN Rash 12/29/22 08/02/23 Unknown topical cream cyanocobalamin (vitamin B-12) 1,000 mcg PO QAM 03/08/23 08/02/23 06/12/23 1,000 mcg tablet (Vitamin B-12) aspirin 81 mg tablet,delayed 81 mg PO QAM #30 tabs 03/11/23 08/02/23 06/12/23 release atorvastatin 80 mg tablet (Lipitor) 80 mg PO DAILY #30 tabs 03/11/23 08/02/23 06/12/23 pantoprazole 40 mg tablet,delayed 40 mg PO BID 30 days #60 tabs 0208/02/23 06/12/23 release (Protonix) albuterol sulfate 90 mcg/actuation 2 puff inhalation Q4H PRN 04/26/23 08/02/23 Unknown aerosol inhaler Shortness Of Breath Or Wheezing #8.5 grams escitalopram oxalate 10 mg tablet 10 mg PO DAILY 06/13/23 08/02/23 Unknown fluticasone fur. 200 mcg-umeclid 1 inh inhalation DAILY 06/13/23 08/02/23 06/12/23 62.5 mcg-vilant 25 mcg inhalat.powder (Trelegy Ellipta) diclofenac sodium 1 % topical gel 2 g EXT Q4H PRN neck pain #100 06/16/23 08/02/23 Unknown (Voltaren Arthritis Pain) grams oxycodone 5 mg tablet 5 mg PO Q6H PRN pain #15 tabs 06/16/23 08/02/23 Unknown CPAP Machine #1 ea 06/24/23 08/02/23 Unknown CPAP Supplies #1 ea 06/24/23 08/02/23 Unknown baclofen 5 mg tablet 5 mg PO TID PRN muscle spasms 08/02/23 08/02/23 Unknown furosemide 40 mg tablet 40 mg PO QAM PRN Fluid 08/02/23 08/02/23 Unknown accumulation, weight gain Active Medications Generic Name Dose Route Start Last Admin Trade Name Freq PRN Reason Stop Dose Admin Albuterol 3 ml 08/03/23 19:00 08/05/23 13:13 Albut/Ipratrop 3mg/0.5mg Neb 3 Ml Vial NEB 09/02/23 17:59 3 ml Q6R YUN Administration Protocol Aspirin 81 mg 08/03/23 09:00 08/05/23 08:42 Aspirin 81 Mg Ectab PO 09/02/23 08:59 Not Given QAM YUN Atorvastatin Calcium 80 mg 08/03/23 09:00 08/05/23 08:45 Atorvastatin 40 Mg Tab PO 09/02/23 08:59 80 mg DAILY YUN Administration Bupropion HCl 150 mg 08/02/23 21:00 08/05/23 08:45 Bupropion Sr 150 Mg Tabcr PO 09/01/23 20:59 150 mg BID YUN Administration Cyanocobalamin 1,000 mcg 08/03/23 09:00 08/05/23 08:46 Cyanocobalamin (B-12) 500 Mcg Tablet PO 09/02/23 08:59 1,000 mcg QAM YUN Administration Escitalopram Oxalate 10 mg 08/03/23 09:00 08/05/23 08:45 Escitalopram Oxalate 10 Mg Tab PO 09/02/23 08:59 10 mg DAILY YUN Administration Fluticasone Furoate 1 puffs 08/03/23 09:00 08/05/23 08:45 Fluticasone Furoate 200mcg 14 Puffs/Inhaler INH 09/02/23 08:59 1 puffs DAILY YUN Administration Heparin Sodium (Porcine) 5,000 units 08/02/23 21:00 08/05/23 08:44 Heparin Sod 5,000 Unit/0.5 Ml Vial SQ 09/01/23 20:59 Not Given Q12 YUN Hydromorphone HCl 0.5 mg 08/02/23 17:03 08/05/23 11:06 Hydromorphone Inj 0.5 Mg/0.5 Ml Syr IV 08/16/23 17:02 0.5 mg Q6H PRN Administration Severe Pain (Scale 7, 8, 9,10) Vancomycin HCl 1,250 mg/ 275 mls @ 200 mls/hr 08/03/23 00:00 08/05/23 15:12 Sodium Chloride IV 09/14/23 00:00 Infused Q12H YUN Infusion Cefepime HCl 2,000 mg/ Syringe 20 mls @ 5 mls/min 08/04/23 18:00 08/05/23 11:04 IV 08/11/23 17:59 5 mls/min Q8H YUN Administration Protocol Lactobacillus Acidophilus 1,250 mg 08/03/23 13:45 08/05/23 08:45 Advanced Probiotic 625 Mg Capsule PO 09/02/23 13:44 1,250 mg DAILY YUN Administration Melatonin 3 mg 08/02/23 22:13 08/05/23 01:28 Melatonin 3 Mg Tab PO 09/01/23 22:12 3 mg HS PRN Administration Sleep Ondansetron HCl 4 mg 08/02/23 17:03 08/05/23 11:13 Ondansetron Inj 2 Mg/Ml 2 Ml Vial IV 09/01/23 17:02 4 mg Q6H PRN Administration Nausea Oxycodone HCl 5 mg 08/02/23 17:03 08/05/23 08:05 Oxycodone Hcl Ir 5 Mg Tab (Immediate Release) PO 08/16/23 17:02 5 mg Q4H PRN Administration Moderate Pain (Scale 4, 5, 6) Pantoprazole Sodium 40 mg 08/02/23 21:00 08/05/23 08:48 Pantoprazole 40 Mg Tab PO 09/01/23 20:59 40 mg BID YUN Administration Pregabalin 100 mg 08/02/23 21:00 08/05/23 08:48 Pregabalin 100 Mg Cap PO 09/01/23 20:59 100 mg BID YUN Administration Umeclidinium/Vilanterol 1 puffs 08/03/23 09:00 08/05/23 08:46 Umeclidinium/Vilanterol 62.5/25mcg 7 Puffs/Inhaler INH 09/02/23 08:59 1 puffs DAILY YUN Administration Past Medical History Medical History Chronic respiratory failure On oxygen at night in the past - but no longer needs per patient Hx of migraines Sleep apnea No device History of COVID-19 2019, moderate symptoms > resolved 2020, mild symptoms > resolved Pneumothorax Hx- complication from pain injection- resolved Histoplasmosis 2002- treated HX/O CHF ASCVD AO COPD / EMPHYSEMA = TOBACCO ABUSE HLD HTN TAYLOR PD GERD HX/O PE + TOBACCO anxiety/depression increased LFT's Exercise / Class Metabolic Activity III < 4 Walking/Shop/Light housework Past Family History Family History Father Heart disease Hypertension Brother Cancer Hypertension Stroke Heart disease Mother Cancer Other Leukemia No family history of bleeding disorder Non-Hodgkin lymphoma Denies family history of Hearing loss Asthma Past Surgical History Surgical History History of esophagogastroduodenoscopy (EGD) Hx of colonoscopy History of open reduction and internal fixation (ORIF) procedure right shoulder History of total replacement of left shoulder joint History of sinus surgery History of placement of chest tube History of hand surgery Left femoral shaft fracture Dutch placed H/O total hip arthroplasty left side H/O elbow surgery H/O exploratory thoracotomy "Left thoracotomy wedge biopsy of left upper lobe with excision of lesion or nodule & frozen section 2002" H/O hernia repair "[facility] incarcerated supraumbilical hernia repair open no mesh 02/17/01" Past Anesthesia History No Hx of Anesthesia Complications and No Family Hx of Anesthesia Complications History of PONV No Hx of PONV and No Hx of Motion Sickness Social History Smoking Status: Current every day smoker tobacco type: cigarettes Smoking cigarettes per day: 1/4 pack Do You Dip or Chew Tobacco: No Hx Alcohol Use: Yes Alcohol type: hard liquor alcohol intake frequency: other Alcohol Intake Frequency Comment: once a month Hx Substance Use: No substance use type: does not use Physical Exam Vital Signs Last Vital Signs Temp 36.5 C 08/05/23 11:50 Pulse 76 08/05/23 13:13 Resp 17 08/05/23 13:13 BP 130/69 08/05/23 11:50 Pulse Ox 93 08/05/23 13:13 O2 Del Method Room Air 08/05/23 13:13 O2 Flow Rate 2 08/03/23 04:00 FiO2 21 08/03/23 07:21 Testing Laboratory Results 08/04/23 11:15 08/04/23 11:15 PT 11.1 Seconds (9.0-12.0) 08/02/23 09:50 INR 1.0 (0.9-1.1) 08/02/23 09:50 08/03/23 14:17 Aerobic Blood Culture - Preliminary Blood No growth in Aerobic bottle after 48 hours. Anaerobic Blood Culture - Preliminary No growth in Anaerobic bottle after 48 hours. 08/03/23 14:03 Aerobic Blood Culture - Preliminary Blood No growth in Aerobic bottle after 48 hours. Anaerobic Blood Culture - Preliminary No growth in Anaerobic bottle after 48 hours. 08/02/23 11:27 Gram Stain - Final Elbow,Right Aerobic and Anaerobic Culture - Preliminary No growth to date. Electrocardiogram Date: 08/02/23 Findings: + NSR @ (@ 72;non-diagnostic inferior Q waves) Chest X-Ray Date: 08/02/23 Findings: + NAD Echocardiogram Date: 10/23/21 EF: 60% LV Function: normal RWMA: + none Other Findings: + diastolic dysfunction (grade 1) Valvular Disease: + no significant valvular disease
[2023-08-05] MEDS ORDERED: ePHEDrine sulfate 50 MG/ML AMP IV PRN (15:24)
[2023-08-05] MEDS ORDERED: NALOXONE HCL 0.4 MG/1 ML VIAL/CARP IV PRN (15:24)
[2023-08-05] MEDS ORDERED: ATROPINE SULFATE 0.1 MG/ML 10ML SYR IV PRN (15:24)
[2023-08-05] MEDS ORDERED: fentaNYL citrate PF 100 MCG/2 ML VIAL IV PRN (15:24)
[2023-08-05] MEDS ORDERED: HYDROmorphone INJ 1 MG/ML SYRINGE IV PRN (15:24)
[2023-08-05] MEDS ORDERED: FLUMAZENIL 0.1 MG/1 ML 10 ML VIAL IV PRN (15:24)
[2023-08-05] MEDS ORDERED: PROMETHAZINE HCL 6.25 MG in SODIUM CHLORIDE 0.9% 50 ML IV PRN (15:24)
[2023-08-05] MEDS: LACTATED RINGER'S 1,000 ML IV SCH (15:28)
[2023-08-05] MEDS ORDERED: fentaNYL citrate PF 100 MCG/2 ML VIAL ONE (15:58)
[2023-08-05] MEDS ORDERED: MIDAZOLAM HCL 1 MG/ML 2ML VIAL ONE (15:58)
[2023-08-05] MEDS ORDERED: PROPOFOL IV EMULSION 10 MG/ML 20 ML VIAL IV ONE (16:25)
[2023-08-05] MEDS ORDERED: ROCURONIUM BROMIDE 10 MG/ML 5 ML VIAL IV ONE (16:25)
[2023-08-05] MEDS ORDERED: LIDOCAINE 2% 2 ML VIAL/AMP(20MG/ML) INFIL ONE (16:25)
[2023-08-05] MEDS ORDERED: DEXAMETHASONE SOD INJ 4 MG/ML VIAL ONE (16:25)
[2023-08-05] MEDS ORDERED: ONDANSETRON INJ 2 MG/ML 2 ML VIAL ONE (16:25)
--- NOTE | 2023-08-05 16:35 | History & Physical Bridge Note ---
Date of Service August 05, 2023 History & Physical Bridge Note I have examined the patient, reviewed the History & Physical and in the interval since the performance of the History & Physical I have noted the following changes of clinical significance: no changes noted
[2023-08-05] MEDS ORDERED: SUGAMMADEX SODIUM 200 MG/2 ML VIAL IV ONE (17:09)
[2023-08-05] MEDS: BUPIVACAINE/EPINEPHRINE 0.25% 1:200,000 30 ML VIAL ONE (17:40)
--- NOTE | 2023-08-05 17:53 | Infectious Disease Consult ---
Date of Service August 05, 2023 Telehealth Information I performed this visit using a real-time telehealth connection between my location and the patients location ([facility]). After connecting through interactive tele-video, patient was identified by name and date of and/or wristband check.Patient (or authorized healthcare wine sales representative) was informed that this was a telemedicine visit and it was being conducted confidentially over secure lines. My office door was closed and no one else was present in the room with me.Patient (or authorized healthcare wine sales representative) provided consent to proceed with the visit, expressed an understanding of privacy and security of the telemedicine visit, and gave permission to have a hospital wine sales representative in the room in order to assist with the visit and to conduct portions of the visit, as needed. I informed the patient (or authorized healthcare wine sales representative) that I reviewed their record and presented the opportunity for them to ask any questions regarding the visit today. The patient agreed to participate. Assessment & Plan (1) Septic bursitis of elbow: (2) Septic arthritis of elbow, right: Plan We agree with the primary team on IV vancomycin and IV cefepime for now. We will follow-up on the bursa fluid culture as well as intraoperative cultures and adjust antibiotics as needed. He will likely require 4 weeks of IV antibiotics after the washout of the right elbow joint. Thank you for consulting infectious disease. We will continue to follow. History of Present Illness History of Present Illness Mr. Franks is a pleasant 67-year-old man with medical history of COPD, hyperlipidemia, chronic diastolic heart failure, peripheral vascular disease, obstructive sleep apnea, GERD, history of pulmonary embolism as well as major depressive disorder/generalized anxiety disorder who was admitted to [facility] because of right elbow pain and was found to have septic bursitis of the right elbow. MRI of the elbow was obtained which showed no osteomyelitis but there was soft tissue edema around the elbow with a large amount of bursal fluid seen posteriorly suggestive of bursitis as well as possible communication with the elbow joint. He had an aspiration of the bursa with culture negative up-to-date. He was seen by the orthopedic team who is planning for an I&D as well as washout of the elbow joint. ID team was consulted for further recommendations and to help guide antibiotic treatment. Allergies Allergy/AdvReac Type Severity Reaction Status Date / Time No Known Allergies Allergy Verified 06/16/23 07:11 Home Medications Medication Instructions Recorded Confirmed Type pregabalin 100 mg capsule (Lyrica) 100 mg PO BID 10/16/17 08/02/23 History meclizine 12.5 mg tablet 12.5 mg PO TID PRN Dizziness 06/28/21 08/02/23 History bupropion HCl 150 mg tablet,12 hr 150 mg PO BID 04/07/22 08/02/23 History sustained-release (Wellbutrin SR) ondansetron 8 mg disintegrating 8 mg PO Q8H PRN Nausea 04/07/22 08/02/23 History tablet clobetasol 0.05 % topical cream 1 applic topical BID PRN Rash 12/29/22 08/02/23 History levalbuterol HCl 1.25 mg/3 mL 1.25 mg inhalation Q4H PRN Wheezing 12/29/22 08/02/23 History solution for nebulization triamcinolone acetonide 0.1 % 1 applic topical BID PRN Rash 12/29/22 08/02/23 History topical cream cyanocobalamin (vitamin B-12) 1,000 mcg PO QAM 03/08/23 08/02/23 History 1,000 mcg tablet (Vitamin B-12) aspirin 81 mg tablet,delayed 81 mg PO QAM #30 tabs 03/11/23 08/02/23 Rx release atorvastatin 80 mg tablet (Lipitor) 80 mg PO DAILY #30 tabs 03/11/23 08/02/23 Rx pantoprazole 40 mg tablet,delayed 40 mg PO BID 30 days #60 tabs 04/06/23 08/02/23 Rx release (Protonix) albuterol sulfate 90 mcg/actuation 2 puff inhalation Q4H PRN 04/26/23 08/02/23 Rx aerosol inhaler Shortness Of Breath Or Wheezing #8.5 grams escitalopram oxalate 10 mg tablet 10 mg PO DAILY 06/13/23 08/02/23 History fluticasone fur. 200 mcg-umeclid 1 inh inhalation DAILY 06/13/23 08/02/23 History 62.5 mcg-vilant 25 mcg inhalat.powder (Trelegy Ellipta) diclofenac sodium 1 % topical gel 2 g EXT Q4H PRN neck pain #100 06/16/23 08/02/23 Rx (Voltaren Arthritis Pain) grams oxycodone 5 mg tablet 5 mg PO Q6H PRN pain #15 tabs 06/16/23 08/02/23 Rx CPAP Machine #1 ea 06/24/23 08/02/23 Rx CPAP Supplies #1 ea 06/24/23 08/02/23 Rx baclofen 5 mg tablet 5 mg PO TID PRN muscle spasms 08/02/23 08/02/23 History furosemide 40 mg tablet 40 mg PO QAM PRN Fluid 08/02/23 08/02/23 History accumulation, weight gain Patient History Medical History Chronic respiratory failure On oxygen at night in the past - but no longer needs per patient Hx of migraines Sleep apnea No device History of COVID-19 2019, moderate symptoms > resolved 2020, mild symptoms > resolved Pneumothorax Hx- complication from pain injection- resolved Histoplasmosis 2002- treated Surgical History History of esophagogastroduodenoscopy (EGD) Hx of colonoscopy History of open reduction and internal fixation (ORIF) procedure right shoulder History of total replacement of left shoulder joint History of sinus surgery History of placement of chest tube History of hand surgery Left femoral shaft fracture Dutch placed H/O total hip arthroplasty left side H/O elbow surgery H/O exploratory thoracotomy "Left thoracotomy wedge biopsy of left upper lobe with excision of lesion or nodule & frozen section 2002" H/O hernia repair "[facility] incarcerated supraumbilical hernia repair open no mesh 02/17/01" Family History Father Heart disease Hypertension Brother Cancer Hypertension Stroke Heart disease Mother Cancer Other Leukemia No family history of bleeding disorder Non-Hodgkin lymphoma Denies family history of Hearing loss Asthma Social History Smoking Status: Current every day smoker Tobacco Type: Cigarettes Age Started Using Tobacco: 11; packs per day: 1; Cigarettes Per Day: 1/4 pack; Second Hand Exposure: No; Do You Dip or Chew Tobacco: No; Tobacco Cessation Education Requested by Patient: No Hx Alcohol Use: Yes Alcohol type: hard liquor Hx Substance Use: No Preferred Language: Japanese Communication Ability: Effective Hand Stoner Required: No Beliefs That Will Affect Care: None marital status: Current Living Situation: Spouse current occupational status: unemployed Other Information That Helps Us Care for You: No Feels Safe at Home: Yes Safety Concerns: Feels Safe At This Time Assistive Devices: Oxygen - at Night and Other Review of Systems Constitutional: No fever or chills Cardiovascular: No chest pain or palpitations Respiratory: No shortness of breath or cough Abdominal: no abdominal pain or diarrhea Urinary tract: No dysuria, urgency or frequency Musculoskeletal: Rt elbow pain and swelling Physical Exam Couldn't be performed as the encounter was performed via telemed. Results & Data Vital Signs (Past 12 Hours) Vital Signs Temp Pulse Pulse Pulse Resp BP Pulse Ox 08/05/23 15:18 36.5 C 70 18 128/88 91 08/05/23 13:13 76 17 93 08/05/23 11:50 36.5 C 73 18 130/69 91 08/05/23 07:38 67 08/05/23 07:00 78 18 92 08/05/23 06:41 36.6 C 65 20 143/78 H 92 O2 Del Method 08/05/23 15:18 Room Air 08/05/23 13:13 Room Air 08/05/23 11:50 Room Air 08/05/23 07:38 08/05/23 07:00 Room Air 08/05/23 06:41 Room Air Laboratory Results Microbiology: 08/01: Right elbow bursa aspirate culture negative to date 08/02: 2 sets of blood culture negative to date (1) Septic bursitis of elbow Laterality: right Qualified Code(s): M71.121 - Other infective bursitis, right elbow
--- NOTE | 2023-08-05 18:15 | Operative Report ---
PG Post Operative Report Pre & Post Diagnosis Operation Date: 08/05/23 07:00 Pre-Op Diagnosis: Septic olecranon bursitis right elbow, possible septic arthritis Post-Op Diagnosis: Septic olecranon bursitis with communication to the joint I identified the patient and participated in the time-out.: Yes Procedure Operation Date: 08/05/23 07:00 Actual Procedures p Right Elbow Incision and Drainage(Right) - Bradley Willis MD Surgeon Bradley Willis MD [employer] outside sales inspector Estimated Blood Loss 25 Findings See Below Mild fluctuance in the olecranon bursal area. Previous trauma incision was open and the chronic appearing bursal sac had seropurulent fluid that was evacuated after culture. As demonstrated by MRI, there was a sinus tract about the medial of the condyle that communicated to the olecranon fossa and the ulnohumeral joint. The joint seem to be in chronic communication to the bursal space. Thorough irrigation and debridement was carried out of the bursal space and joint through the posterior lateral incision. Specimens Olecranon bursal swab culture Drains JORGE x 1 olecranon space Anesthesia Type General Complications none Disposition Accompanied Patient To Recovery: Yes Disposition: Recovery Room Indications 67-year-old male has been admitted with right elbow pain and erythema that is slightly improved and IV antibiotic therapy. Due to persistent symptoms, an MRI was obtained in the advanced imaging was consistent with retained fluid collection through the olecranon bursal area that had a potential communication through the joint capsule. I reviewed the treatment options and did recommend surgical decompression of the fluid space to expedite eradication of the infection. Reviewed the risk, benefits, and alternatives of surgery in detail. Informed consent was obtained as he desired to proceed with surgical treatment as I had recommended. Description of Procedure On the day of surgery, the patient was greeted in the preoperative holding area. The informed consent was reviewed and confirmed by myself and the patient. The patient identified the surgical site and was marked by me. The patient was then turned over to anesthesia. He was taken to the operating room and placed upon the OR table. Anesthesia was induced, and the airway was secured. He was positioned in the lateral decubitus for right elbow surgery using an axillary roll, beanbag, and abundant padding at all bony prominences. A tunneled humerus bone foam pillow was used to position the operative extremity over top the nonoperative. A nonsterile tourniquet was placed high in the arm. Alcohol soaked 4 x 4's were used exfoliate and cleanse the arm before prepping with ChloraPrep. The limb was then prepped and draped in usual sterile fashion for elbow surgery lateral decubitus position. Previous traumatic incision was well-healed. It was easily identified and m arked in its most central portion. An 8 cm incision was then opened up over the olecranon curving just laterally to the olecranon. The bursal sac was encountered and it was chronically thickened. This was incised carefully and there was seropurulent fluid found in this olecranon bursal space. There was not any bursal tissue, rather chronic appearing bursal capsule. This contained the fluid. Swab culture was obtained. The fluid was evacuated. Sharp dissection was carried out along the robert with a curette to excoriate tissues. There was no fibrinous debris after evacuation. Approximately 1 L normal saline was then run through the space. Attention was directed to the joint space. I did find an opening just proximal to the medial epicondyle that was in direct communication with the olecranon fossa. There was joint fluid that was able to be expressed through here. It appeared to be benign. I did use an 18-gauge needle through the lateral soft spot to aspirate. This will yielded minimal bloody fluid that was likely the irrigant from the bursal space. Since the joint was clearly in communication with small finger sized sinus tract on the medial side, it was felt that the joint was involved with in process. We then ran 3 L total of normal saline through the bursal capsular space and through the medial sinus tract to thoroughly irrigate and decompress the joint and bursal space. We then redraped with fresh towels and changed gloves. A 10 Lao JORGE drain was placed in the wound bed. The bursal capsule was closed using 20 antibiotic coated Vicryl in a running locking fashion. This was over the drain. Dermal layer was approximated using 2-0 antibiotic Vicryl. Final cuticular closure was accomplished with crys. The drain had good suction. The patient tolerated the procedure well, was extubated in the operating without complication, and transported to recovery in stable condition. Disposition: He will remain an inpatient on parental IV therapy directed by internal medicine. Cultures from original ER aspiration to direct antibiotic selection. Repeat culture today could provide additional data. Likely with this decompression, the patient to be discharged to oral antibiotics as soon as felt appropriate by the admitting team. I will likely discontinue the drain tomorrow barring any excessive drainage. I attest to the content of the Intraoperative Record and any orders documented therein. Any exceptions are noted below.
--- NOTE | 2023-08-05 18:38 | Hospitalist Progress Note ---
Date of Service August 05, 2023 Assessment & Plan (1) Septic bursitis of elbow: (2) Chronic shortness of breath: (3) Elevated LFTs: Plan per previous hospitalist notes with addendum: Florentin Franks is a 67 y/o M with PMHx of hyperlipidemia, COPD/pulmonary emphysema, chronic diastolic heart failure (EF 60 to 65% - TTE 2023), PVD, TAYLOR (CPAP intolerance), aortic atherosclerosis, GERD with esophagitis, chronic pain syndrome, senile osteoporosis, descending aortic thrombus [NOT on anticoagulation therapy], hx of PE, tobacco use disorder, adjustment disorder with depressed mood/CARLOS and other problems listed below presented to the ED today for evaluation of right elbow pain x 5 days and was found to have septic bursitis of his right elbow. Septic Bursitis of Right Elbow ? Possible Septic Arthritis Admitting Imaging: * R Elbow XR --> "Dorsal soft tissue swelling with no acute fracture clearly identified. There is chronic deformity of the radial head with 2 screws/screw fragments in place. A buttress plate is partially visualized along the humeral shaft. Arthritic change is seen at the elbow joint with no dislocation identified. There is an elbow joint effusion." * Venous Doppler US of RUE --> "There is normal compressibility of the deep venous system from the forearm through the subclavian vein. Normal vascular flow is currently identified. No evidence of superficial thrombosis is identified." Patient's R elbow joint effusion was aspirated in the ED. [place] [address]. Synovial fluid gram stain revealed many polys, but NO organisms seen. ER provider (Dr. Ruff) consulted orthopedics. Orthopedics (Dr. Bradley Willis) saw and evaluated the patient. Recommends to follow aspiration culture, broad spectrum ABX coverage for now. NPO at midnight pending tomorrow's examination. Patient may require I&D of R elbow if no improvement. Patient received 2g IV Rocephin and 2g IV Vancomycin in the ED. He also was administered 8mg of morphine for pain. -WBC 14.62 on admission -Lyme disease screen negative -Lyme specimen source pending -Follow synovial fluid culture -Continue broad ABX coverage w/ Rocephin + Vancomycin -PRN pain regimen in place -Formal ortho consult placed -NPO at midnight pending ?I&D in AM w/ ortho if no improvement -PRN bowel regimen, PRN nausea relief -Repeat CBC w/ diff in AM 08/02 Joint fluid aspirate pending Blood cultures pending Continue vancomycin plus ceftriaxone IV N.p.o. postmidnight for planned washout tomorrow by Ortho 08/03 Have increased pain, edema, erythema Elbow MRI: No acute bony abnormality is identified. There is no MRI evidence of osteomyelitis as clinically queried. There is soft tissue edema around the elbow, the large amount of bursal fluid seen posteriorly. Correlate clinically for evidence of bursitis. The sterility of this fluid cannot be assessed on imaging. Ceftriaxone changed to cefepime IV Continue IV vancomycin ID consulted Ortho service on board [id number] Status post I&D today Fluid drainage culture pending ID consulted Continue IV vancomycin plus cefepime for now Elevated LFTs -AST 47, ALT 78 on admission -Hold hepatotoxic medications when able -Repeat CMP in AM, monitor LFTs Improving Chronic Obstructive Pulmonary Disease (COPD) Chronic Shortness of Breath, Recent Cough -Pt complains of constant SOB, recent cough -No acute findings on CXR -Follows w/ [facility] Pulm -Will schedule Duonebs Q4H -Continue INSIDE SALES CONSULTANT Trelegy, PRN albuterol inhaler -Could consider steroids if no improvement in breathing -EKG w/ chest pain as needed 08/02 Very faint wheeze Continue DuoNeb every 6 hours Continue usual fluticasone and Anoro Ellipta inhalers Monitor closely 08/04 improving Hyperlipidemia: Continue INSIDE SALES CONSULTANT statin therapy Hx of Adjustment Disorder w/ Depressed Mood: Continue INSIDE SALES CONSULTANT psychiatric medications Tobacco Use Disorder -Currently smoking 1/4 pack per day -Smoking cessation education ordered -Consider nicotine patch PRN, can continue INSIDE SALES CONSULTANT bupropion GERD w/ Esophagitis: Continue INSIDE SALES CONSULTANT pantoprazole Hx of Neuropathy: Continue INSIDE SALES CONSULTANT pregabalin DVT Prophylaxis: SQ Heparin Code Status: FULL CODE PCP: Ajit Moreno MD Dispo: Lives at home with his Anticipate return to home medically stable Admission and Anticipated Discharge Date Admission Date: August 02, 2023 Subjective Follow-up for septic bursitis, etc. Seen resting in bed, comfortable, not in distress Still having significant right elbow with surrounding arm pain Full range of motion No fevers or chills No other new symptom Review of Systems Review of Systems: all noted and negative except for above Physical Exam Physical Exam: General- oriented x 3, not in distress, speaks in sentences with no effort or accessory muscle use Eyes- anicteric Neck- no JVD Lungs- clear breath sounds bilaterally, no rales/wheezes Heart- normal rate, regular rhythm; no murmurs Abdomen- normal bowel sounds, nondistended, soft, nontender Extremities- no pretibial edema, no calf tenderness Right elbow: Positive moderate erythema, warmth, tenderness, poor range of motion due to pain Neuro- alert, oriented x 3; no gross focal neurologic deficits Skin- warm & dry Results & Data Results & Data Vital Signs (Past 12 Hours) Vital Signs Temp Pulse Pulse Pulse Resp BP Pulse Ox 08/05/23 18:25 73 12 139/72 93 08/05/23 18:15 80 20 146/92 H 93 08/05/23 18:05 84 16 141/92 H 94 08/05/23 17:57 36.0 C L 81 16 135/111 H 95 08/05/23 15:18 36.5 C 70 18 128/88 91 08/05/23 13:13 76 17 93 08/05/23 11:50 36.5 C 73 18 130/69 91 08/05/23 07:38 67 08/05/23 07:00 78 18 92 08/05/23 06:41 36.6 C 65 20 143/78 H 92 O2 Del Method O2 Flow Rate 08/05/23 18:25 Nasal Cannula 3 08/05/23 18:15 Nasal Cannula 3 08/05/23 18:05 Oxymask 4 08/05/23 17:57 Oxymask 6 08/05/23 15:18 Room Air 08/05/23 13:13 Room Air 08/05/23 11:50 Room Air 08/05/23 07:38 08/05/23 07:00 Room Air 08/05/23 06:41 Room Air all noted and reviewed including below (1) Septic bursitis of elbow Laterality: right Qualified Code(s): M71.121 - Other infective bursitis, right elbow
--- NOTE | 2023-08-05 19:18 | Anesthesiology Progress Note ---
Date of Service August 05, 2023 Anesthesia Post Procedure Vital Signs Vital Signs: Temp Pulse Pulse Pulse Resp BP Pulse Ox 08/05/23 18:55 69 14 147/75 H 94 08/05/23 18:45 73 16 144/75 H 94 08/05/23 18:35 36.4 C L 69 12 130/76 94 08/05/23 18:25 73 12 139/72 93 08/05/23 18:15 80 20 146/92 H 93 08/05/23 18:05 84 16 141/92 H 94 08/05/23 17:57 36.0 C L 81 16 135/111 H 95 08/05/23 15:18 36.5 C 70 18 128/88 91 08/05/23 13:13 76 17 93 08/05/23 11:50 36.5 C 73 18 130/69 91 08/05/23 07:38 67 08/05/23 07:00 78 18 92 08/05/23 06:41 36.6 C 65 20 143/78 H 92 08/05/23 05:05 36.6 C 69 20 156/84 H 92 08/05/23 00:00 71 08/04/23 23:24 36.7 C 72 20 129/87 93 08/04/23 20:06 36.7 C 72 20 146/74 H 90 08/04/23 19:26 71 16 91 O2 Del Method O2 Flow Rate 08/05/23 18:55 Nasal Cannula 2.5 08/05/23 18:45 Nasal Cannula 2.5 08/05/23 18:35 Nasal Cannula 3 08/05/23 18:25 Nasal Cannula 3 08/05/23 18:15 Nasal Cannula 3 08/05/23 18:05 Oxymask 4 08/05/23 17:57 Oxymask 6 08/05/23 15:18 Room Air 08/05/23 13:13 Room Air 08/05/23 11:50 Room Air 08/05/23 07:38 08/05/23 07:00 Room Air 08/05/23 06:41 Room Air 08/05/23 05:05 Room Air 08/05/23 00:00 08/04/23 23:24 Room Air 08/04/23 20:06 Room Air 08/04/23 19:26 Room Air Pain Intensity Right Elbow: Pain Intensity: 3 Transfer of Care Handoff Completed per policy Notes Mental Status: alert / awake / arousable and participated in evaluation Patient Amnestic to Procedure: Yes Nausea / Vomiting: adequately controlled Pain: adequately controlled Airway Patency, RR, SpO2: stable & adequate BP & HR: stable & adequate Hydration State: stable & adequate Anesthetic Complications: no major complications apparent and Pt Satisfied with anesthetic care
[2023-08-06 06:58] LABS: Est GFR (African American) 105.6 ml/min; Est GFR (Non-African American) 91.1 ml/min
[2023-08-06 08:09] LABS: C Reactive Protein 0.97 mg/dl (0-0.5)
[2023-08-06 08:11] LABS: Basophils # (auto) 0.01 K/uL (0.00-0.20); Basophils % (auto) 0.1 %; Hematocrit (blood only) 37.8 % (42.0-52.0); Hemoglobin 12.7 g/dl (14.0-18.0); Immature Granulocytes # (auto) 0.04 K/uL (0.01-0.20); Immature Granulocytes % (auto) 0.5 %; Lymphocytes # (auto) 0.96 K/uL (1.20-3.40); Lymphocytes % (auto) 11.5 %; Mean Corpuscular Hemoglobin 31.1 pg (25.0-34.0); Mean Corpuscular Hgb Conc 33.6 g/dL (32.0-36.0); Mean Corpuscular Volume 92.4 fL (80.0-100.0); Mean Platelet Volume 11.5 fL (9.4-12.4); Monocytes # (auto) 0.73 K/uL (0.11-0.59); Monocytes % (auto) 8.8 %; Neutrophils # (auto) 6.59 K/uL (1.40-6.50); Neutrophils % (auto) 79.1 %; Platelet Count 284 K/uL (130-400); RDW Coefficient of Variation 15.4 % (11.5-14.5); RDW Standard Deviation 52.2 fL (36.4-46.3); Red Blood Count 4.09 M/uL (4.70-6.10); White Blood Count 8.33 K/ul (4.8-10.8)
--- NOTE | 2023-08-06 08:25 | Orthopedic Progress Note ---
Date of Service August 06, 2023 Assessment & Plan (1) Septic bursitis of elbow: (2) Septic arthritis of elbow, right: Plan 67-year-old male on hospital day 4 for right elbow pain related to septic bursitis or arthritis. Intraoperative findings show a sinus tract that was chronic and likely posttraumatic communicating from the bursal space to the joint. Cultures from the original aspiration have been negative. 1 intraoperative culture pending after 3 days of antibiotics. Recommend treating as a culture-negative septic arthritis of the right elbow. Will need discharge planning for antibiotic coverage. May be range of motion and weightbearing as tolerated through that arm. 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 Will plan to remove drain on morning of 08/07/2023. From orthopedic perspective, he can be discharged when ready with his antibiotic plan. Subjective Expected discomfort from surgery. He does not think it is worse than before. Wants to know why he was on a liquid diet. Wants to know when to go back to work. Review of Systems All systems reviewed & are unremarkable except as noted in HPI & below. Physical Exam Right upper extremity: Dressing clean and dry and intact. The JORGE drain has serosanguineous fluid approximately 15 ml. Neurovascular intact Constitutional WD/WN, vitals as above no acute distress and not intoxicated appearing Respiratory normal respiratory effort; no labored breathing Cardiovascular Extremities: normal capillary refill Results & Data Results & Data Laboratory Results Microbiology 08/03/23 14:17 Blood Aerobic Blood Culture - Preliminary No growth in Aerobic bottle after 48 hours. 08/03/23 14:17 Blood Anaerobic Blood Culture - Preliminary No growth in Anaerobic bottle after 48 hours. 08/03/23 14:03 Blood Aerobic Blood Culture - Preliminary No growth in Aerobic bottle after 48 hours. 08/03/23 14:03 Blood Anaerobic Blood Culture - Preliminary No growth in Anaerobic bottle after 48 hours. 08/02/23 11:27 Elbow,Right Gram Stain - Final 08/02/23 11:27 Elbow,Right Aerobic and Anaerobic Culture - Preliminary No growth to date. Diagnostic Findings . PG Care Time/CCT Total # of Minutes Spent Total Time Spent with Patient: Total time spent is greater than 50% in coordination of care (as documented) at patient's floor/unit and/or counseling patient: Coding Level of Care Code 59975 Post Operative Follow-Up Diagnoses Septic bursitis of elbow M71.121 Laterality: right Septic arthritis of elbow, right M00.9 (1) Septic bursitis of elbow Laterality: right Qualified Code(s): M71.121 - Other infective bursitis, right elbow
[2023-08-06] MEDS: diphenhydrAMINE Capsule 25 MG CAP PO PRN (09:23)
[2023-08-06] MEDS: HYDROmorphone INJ 0.5 MG/0.5 ML SYR IV PRN ×2 (11:23→15:45)
[2023-08-06] MEDS ORDERED: KETOROLAC TROMETHAMINE 15 MG/ML VIAL IV PRN (13:28)
[2023-08-06 14:27] LABS: Lyme DNA PCR CSF or Synovial Not Detected (Not Detected); Lyme DNA Source SYNOVIAL FLUID
[2023-08-06] MEDS: ACETAMINOPHEN 500 MG TAB PO SCH (15:45)
--- NOTE | 2023-08-06 16:57 | Hospitalist Progress Note ---
Date of Service August 06, 2023 Assessment & Plan (1) Septic bursitis of elbow: (2) Chronic shortness of breath: (3) Elevated LFTs: Plan per previous hospitalist notes with addendum: Florentin Franks is a 67 y/o M with PMHx of hyperlipidemia, COPD/pulmonary emphysema, chronic diastolic heart failure (EF 60 to 65% - TTE 2023), PVD, TAYLOR (CPAP intolerance), aortic atherosclerosis, GERD with esophagitis, chronic pain syndrome, senile osteoporosis, descending aortic thrombus [NOT on anticoagulation therapy], hx of PE, tobacco use disorder, adjustment disorder with depressed mood/CARLOS and other problems listed below presented to the ED today for evaluation of right elbow pain x 5 days and was found to have septic bursitis of his right elbow. Septic Bursitis of Right Elbow ? Possible Septic Arthritis Admitting Imaging: * R Elbow XR --> "Dorsal soft tissue swelling with no acute fracture clearly identified. There is chronic deformity of the radial head with 2 screws/screw fragments in place. A buttress plate is partially visualized along the humeral shaft. Arthritic change is seen at the elbow joint with no dislocation identified. There is an elbow joint effusion." * Venous Doppler US of RUE --> "There is normal compressibility of the deep venous system from the forearm through the subclavian vein. Normal vascular flow is currently identified. No evidence of superficial thrombosis is identified." Patient's R elbow joint effusion was aspirated in the ED. [place] [address]. Synovial fluid gram stain revealed many polys, but NO organisms seen. ER provider (Dr. Ruff) consulted orthopedics. Orthopedics (Dr. Bradley Willis) saw and evaluated the patient. Recommends to follow aspiration culture, broad spectrum ABX coverage for now. NPO at midnight pending tomorrow's examination. Patient may require I&D of R elbow if no improvement. Patient received 2g IV Rocephin and 2g IV Vancomycin in the ED. He also was administered 8mg of morphine for pain. -WBC 14.62 on admission -Lyme disease screen negative -Lyme specimen source pending -Follow synovial fluid culture -Continue broad ABX coverage w/ Rocephin + Vancomycin -PRN pain regimen in place -Formal ortho consult placed -NPO at midnight pending ?I&D in AM w/ ortho if no improvement -PRN bowel regimen, PRN nausea relief -Repeat CBC w/ diff in AM 08/02 Joint fluid aspirate pending Blood cultures pending Continue vancomycin plus ceftriaxone IV N.p.o. postmidnight for planned washout tomorrow by Ortho 08/03 Have increased pain, edema, erythema Elbow MRI: No acute bony abnormality is identified. There is no MRI evidence of osteomyelitis as clinically queried. There is soft tissue edema around the elbow, the large amount of bursal fluid seen posteriorly. Correlate clinically for evidence of bursitis. The sterility of this fluid cannot be assessed on imaging. Ceftriaxone changed to cefepime IV Continue IV vancomycin ID consulted Ortho service on board [id number] Status post I&D today Fluid drainage culture pending ID consulted Continue IV vancomycin plus cefepime for now 08/05 Stable overall Having significant pain Dilaudid increased to 1 mg every 6 hours, Toradol 30 mg every 6 hours as needed Tylenol 1 g every 8 hours scheduled Discussed with orthopedic service Will likely need 4 weeks of IV antibiotics PICC line ordered Elevated LFTs -AST 47, ALT 78 on admission -Hold hepatotoxic medications when able -Repeat CMP in AM, monitor LFTs Improving Chronic Obstructive Pulmonary Disease (COPD) Chronic Shortness of Breath, Recent Cough -Pt complains of constant SOB, recent cough -No acute findings on CXR -Follows w/ [facility] Pulm -Will schedule Duonebs Q4H -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, PRN albuterol inhaler -Could consider steroids if no improvement in breathing -EKG w/ chest pain as needed 08/02 Very faint wheeze Continue DuoNeb every 6 hours Continue usual fluticasone and Anoro Ellipta inhalers Monitor closely 08/05 resolved Hyperlipidemia: Continue SEWING MACHINE OPERATOR [employer] statin therapy Hx of Adjustment Disorder w/ Depressed Mood: Continue SEWING MACHINE OPERATOR [employer] psychiatric medications Tobacco Use Disorder -Currently smoking 1/4 pack per day -Smoking cessation education ordered -Consider nicotine patch PRN, can continue SEWING MACHINE OPERATOR [employer]IPPER bupropion GERD w/ Esophagitis: Continue SEWING MACHINE OPERATOR [employer] pantoprazole Hx of Neuropathy: Continue SEWING MACHINE OPERATOR [employer] ZIPPER pregabalin DVT Prophylaxis: SQ Heparin-On hold secondary to procedure yesterday Resume tomorrow Code Status: FULL CODE PCP: Ajit Moreno MD Dispo: Lives at home with his Anticipate return to home medically stable Admission and Anticipated Discharge Date Admission Date: August 02, 2023 Subjective Follow-up for right elbow septic bursitis, etc. Seen resting in bed, uncomfortable secondary to pain Denies shortness of breath, chest pain, palpitations, dizziness No nausea vomiting, fevers or chills No other new symptoms Review of Systems Review of Systems: all noted and negative except for above Physical Exam Physical Exam: General- oriented x 3, not in distress, speaks in sentences with no effort or accessory muscle use Eyes- anicteric Neck- no JVD Lungs- clear breath sounds bilaterally, no rales/wheezes Heart- normal rate, regular rhythm; no murmurs Abdomen- normal bowel sounds, nondistended, soft, nontender Extremities- no pretibial edema, no calf tenderness Right elbow: Heavy dressing in place Neuro- alert, oriented x 3; no gross focal neurologic deficits Skin- warm & dry Results & Data Results & Data Vital Signs (Past 12 Hours) Vital Signs Temp Pulse Pulse Resp BP Pulse Ox O2 Del Method 08/06/23 16:09 36.8 C 73 18 141/68 H 90 Room Air 08/06/23 13:38 80 16 91 Room Air 08/06/23 12:30 76 08/06/23 11:35 37 C 77 18 128/66 90 Room Air 08/06/23 07:32 76 20 97 Room Air 08/06/23 06:40 36.9 C 70 18 116/67 95 Room Air all noted and reviewed including below (1) Septic bursitis of elbow Laterality: right Qualified Code(s): M71.121 - Other infective bursitis, right elbow
[2023-08-07 06:27] LABS: Basophils # (auto) 0.04 K/uL (0.00-0.20); Basophils % (auto) 0.4 %; Eosinophils # (auto) 0.22 K/uL (0.00-0.50); Eosinophils % (auto) 2.1 %; Hemoglobin 12.5 g/dl (14.0-18.0); Immature Granulocytes # (auto) 0.05 K/uL (0.01-0.20); Immature Granulocytes % (auto) 0.5 %; Lymphocytes # (auto) 2.66 K/uL (1.20-3.40); Mean Corpuscular Hemoglobin 31.4 pg (25.0-34.0); Mean Corpuscular Hgb Conc 33.8 g/dL (32.0-36.0); Mean Platelet Volume 11.1 fL (9.4-12.4); Monocytes # (auto) 0.93 K/uL (0.11-0.59); Monocytes % (auto) 8.7 %; Neutrophils # (auto) 6.76 K/uL (1.40-6.50); Neutrophils % (auto) 63.3 %; Platelet Count 258 K/uL (130-400); RDW Coefficient of Variation 15.7 % (11.5-14.5); RDW Standard Deviation 53.6 fL (36.4-46.3); Red Blood Count 3.98 M/uL (4.70-6.10); White Blood Count 10.66 K/ul (4.8-10.8)
[2023-08-07 06:46] LABS: Calcium 7.6 mg/dl (8.6-10.3); Potassium 3.9 mmol/L (3.5-5.1)
[2023-08-07 06:51] LABS: BUN Creatinine Ratio 19.6 (10-20); Est GFR (African American) 86.5 ml/min; Est GFR (Non-African American) 74.6 ml/min
[2023-08-07] MEDS: CETIRIZINE HCL 10 MG TABLET PO ONE (08:04)
[2023-08-07] MEDS: POLYETHYLENE (MIRALAX) 17 GM PACK PO SCH (10:50)
--- NOTE | 2023-08-07 10:54 | Orthopedic Progress Note ---
Date of Service August 07, 2023 Assessment & Plan (1) Septic bursitis of elbow: (2) Septic arthritis of elbow, right: Plan 67-year-old male on hospital day 5 for right elbow pain related to septic bursitis or arthritis. Postop day 2 from incision and drainage of the bursal compartment that communicated to the joint. Recommend treating as a culture-negative septic arthritis of the right elbow. Stable from an orthopedic perspective for discharge to outpatient care. May be range of motion and weightbearing as tolerated through that arm. 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 Discharge per antibiotic plan and primary medical team Will continue to follow peripherally. Please contact me by [place] text with any additional questions or worsening condition. Subjective He reports some increased pain in the posterior side of his elbow with movement. A sling was provided for comfort. Denies any fevers. No other issues. Review of Systems All systems reviewed & are unremarkable except as noted in HPI & below. Physical Exam RUE: Dressing was taken down. Wound drainage had declined significantly. The drain was removed. No active or expressible drainage from the site nor the wound. Well-approximated without erythema or drainage. Range of motion near full. No pain with pronation supination which is improvement. Neurovascular intact. Constitutional WD/WN, vitals as above no acute distress and not intoxicated appearing Respiratory normal respiratory effort; no labored breathing Cardiovascular Extremities: normal capillary refill Results & Data Results & Data Laboratory Results ESR remains elevated as expected. CRP and WBC is normal. Laboratory Tests 08/03/23 08/04/23 08/04/23 07:59 11:15 11:15 WBC ESR 23 H 23 H C-Reactive Protein 4.34 H 2.74 H 08/06/23 08/06/23 08/06/23 05:40 05:40 05:43 WBC 8.33 ESR 24 H C-Reactive Protein 0.97 H Microbiology 08/05/23 17:04 Elbow,Right Gram Stain - Final 08/05/23 17:04 Elbow,Right Aerobic and Anaerobic Culture - Preliminary No growth to date. 08/03/23 14:17 Blood Aerobic Blood Culture - Preliminary No growth in Aerobic bottle after 48 hours. 08/03/23 14:17 Blood Anaerobic Blood Culture - Preliminary No growth in Anaerobic bottle after 48 hours. 08/03/23 14:03 Blood Aerobic Blood Culture - Preliminary No growth in Aerobic bottle after 48 hours. 08/03/23 14:03 Blood Anaerobic Blood Culture - Preliminary No growth in Anaerobic bottle after 48 hours. 08/02/23 11:27 Elbow,Right Gram Stain - Final 08/02/23 11:27 Elbow,Right Aerobic and Anaerobic Culture - Preliminary No growth to date. Diagnostic Findings . PG Care Time/CCT Total # of Minutes Spent Total Time Spent with Patient: Total time spent is greater than 50% in coordination of care (as documented) at patient's floor/unit and/or counseling patient: Coding Level of Care Code 37951 Post Operative Follow-Up Diagnoses Septic bursitis of elbow M71.121 Laterality: right Septic arthritis of elbow, right M00.9 (1) Septic bursitis of elbow Laterality: right Qualified Code(s): M71.121 - Other infective bursitis, right elbow
[2023-08-07] MEDS ORDERED: VANCOMYCIN LEVEL ONE (11:00)
--- NOTE | 2023-08-07 12:28 | Pharmacy Report ---
Pharmacy PK ABX Note - Date of Service August 07, 2023 - Assessment and Plan Assessment 08/06: * Vanco level of 14.9 mcg/mL has increased from prior and is associated with a therapeutic AUC of 586 mg/L.hr. However, per prior documentation, possibly plan for 4 weeks of IV antibiotics therefore will adjust regimen to target slightly lower AUC and adjust to a q24h regimen 08/04: * Vanc level of 11.5 mcg/mL on 08/03. Estimated AUC/KIKE of 497 mg/L.hr, which is at goal. * MRI from 08/03 revealed soft tissue edema around elbow, large amount of bursal fluid and no evidence of osteomyelitis. To OR today for R elbow I&D. 67 year old M receiving vancomycin/ceftraixone for treatment of possible septic bursitis of right elbow. Pertinent microbiologic data includes: right elbow aspirate culture pending. Per documentation today, no joint aspirate today, clinical improvement overnight, no longer going to OR today. Will follow culture. Plan Vancomycin * Adjust dose to 2000 mg IV q24h * Predicted AUC at steady state: 488 mg/L.hr, target AUC/KIKE of 400-600 mg/L.hr * Will repeat level in the next 48 hours. Earlier level indicated to try to assess appropriate discharge dose, if discharged on vancomycin Pharmacy will continue to follow and will adjust dose/frequency as necessary. Thank you. Pharmacy has transitioned to AUC monitoring for vancomycin. AUC/KIKE is the preferred PK/PD target and is associated with decreased risk of nephrotoxicity compared to traditional trough targets.
[2023-08-07] MEDS: ALBUT/IPRATROP 3MG/0.5MG NEB 3 ML VIAL NEB PRN (15:14)
--- NOTE | 2023-08-07 15:20 | Hospitalist Progress Note ---
Date of Service August 07, 2023 Assessment & Plan (1) Septic bursitis of elbow: (2) Chronic shortness of breath: (3) Elevated LFTs: Plan per previous hospitalist notes with addendum: Florentin Franks is a 67 y/o M with PMHx of hyperlipidemia, COPD/pulmonary emphysema, chronic diastolic heart failure (EF 60 to 65% - TTE 2023), PVD, TAYLOR (CPAP intolerance), aortic atherosclerosis, GERD with esophagitis, chronic pain syndrome, senile osteoporosis, descending aortic thrombus [NOT on anticoagulation therapy], hx of PE, tobacco use disorder, adjustment disorder with depressed mood/CARLOS and other problems listed below presented to the ED today for evaluation of right elbow pain x 5 days and was found to have septic bursitis of his right elbow. Septic Bursitis of Right Elbow ? Possible Septic Arthritis Admitting Imaging: * R Elbow XR --> "Dorsal soft tissue swelling with no acute fracture clearly identified. There is chronic deformity of the radial head with 2 screws/screw fragments in place. A buttress plate is partially visualized along the humeral shaft. Arthritic change is seen at the elbow joint with no dislocation identified. There is an elbow joint effusion." * Venous Doppler US of RUE --> "There is normal compressibility of the deep venous system from the forearm through the subclavian vein. Normal vascular flow is currently identified. No evidence of superficial thrombosis is identified." Patient's R elbow joint effusion was aspirated in the ED. [place] [address]. Synovial fluid gram stain revealed many polys, but NO organisms seen. ER provider (Dr. Ruff) consulted orthopedics. Orthopedics (Dr. Bradley Willis) saw and evaluated the patient. Recommends to follow aspiration culture, broad spectrum ABX coverage for now. NPO at midnight pending tomorrow's examination. Patient may require I&D of R elbow if no improvement. Patient received 2g IV Rocephin and 2g IV Vancomycin in the ED. He also was administered 8mg of morphine for pain. -WBC 14.62 on admission -Lyme disease screen negative -Lyme specimen source pending -Follow synovial fluid culture -Continue broad ABX coverage w/ Rocephin + Vancomycin -PRN pain regimen in place -Formal ortho consult placed -NPO at midnight pending ?I&D in AM w/ ortho if no improvement -PRN bowel regimen, PRN nausea relief -Repeat CBC w/ diff in AM 08/02 Joint fluid aspirate pending Blood cultures pending Continue vancomycin plus ceftriaxone IV N.p.o. postmidnight for planned washout tomorrow by Ortho 08/03 Have increased pain, edema, erythema Elbow MRI: No acute bony abnormality is identified. There is no MRI evidence of osteomyelitis as clinically queried. There is soft tissue edema around the elbow, the large amount of bursal fluid seen posteriorly. Correlate clinically for evidence of bursitis. The sterility of this fluid cannot be assessed on imaging. Ceftriaxone changed to cefepime IV Continue IV vancomycin ID consulted Ortho service on board 628 Status post I&D today Fluid drainage culture pending ID consulted Continue IV vancomycin plus cefepime for now 08/05 Stable overall Having significant pain Dilaudid increased to 1 mg every 6 hours, Toradol 30 mg every 6 hours as needed Tylenol 1 g every 8 hours scheduled Discussed with orthopedic service Will likely need 4 weeks of IV antibiotics PICC line ordered 08/06 Remained stable overall Pain improving JORGE drain to be pulled out today by orthopedic service Continue IV vancomycin plus cefepime Awaiting further ID recommendations Elevated LFTs -AST 47, ALT 78 on admission -Hold hepatotoxic medications when able -Repeat CMP in AM, monitor LFTs Improving Chronic Obstructive Pulmonary Disease (COPD) Chronic Shortness of Breath, Recent Cough -Pt complains of constant SOB, recent cough -No acute findings on CXR -Follows w/ [facility] Pulm -Will schedule Duonebs Q4H -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, PRN albuterol inhaler -Could consider steroids if no improvement in breathing -EKG w/ chest pain as needed 08/02 Very faint wheeze Continue DuoNeb every 6 hours Continue usual fluticasone and Anoro Ellipta inhalers Monitor closely 08/05 resolved Hyperlipidemia: Continue DEV OPS ENGINEER statin therapy Hx of Adjustment Disorder w/ Depressed Mood: Continue DEV OPS ENGINEER psychiatric medications Tobacco Use Disorder -Currently smoking 1/4 pack per day -Smoking cessation education ordered -Consider nicotine patch PRN, can continue DEV OPS ENGINEER bupropion GERD w/ Esophagitis: Continue DEV OPS ENGINEER pantoprazole Hx of Neuropathy: Continue DEV OPS ENGINEER pregabalin DVT Prophylaxis: Resume Lovenox Code Status: FULL CODE PCP: Ajit Moreno MD Dispo: Lives at home with his Anticipate return to home medically stable Admission and Anticipated Discharge Date Admission Date: August 02, 2023 Subjective Follow-up for septic bursitis, status post I&D, etc. Seen resting in bed, comfortable, not in distress Although pain is better today compared to yesterday Denies fevers or chills No other new symptoms Review of Systems Review of Systems: all noted and negative except for above Physical Exam Physical Exam: General- oriented x 3, not in distress, speaks in sentences with no effort or accessory muscle use Eyes- anicteric Neck- no JVD Lungs- clear breath sounds bilaterally, no rales/wheezes Heart- normal rate, regular rhythm; no murmurs Abdomen- normal bowel sounds, nondistended, soft, nontender Extremities- no pretibial edema, no calf tenderness Right elbow: Heavy dressing in place Neuro- alert, oriented x 3; no gross focal neurologic deficits Skin- warm & dry Results & Data Results & Data Vital Signs (Past 12 Hours) Vital Signs Temp Pulse Pulse Resp BP Pulse Ox O2 Del Method 08/07/23 15:14 69 16 94 Room Air 08/07/23 13:58 82 08/07/23 11:37 36.5 C 78 17 145/81 H 94 Room Air 08/07/23 08:00 Room Air, Nasal Cannula 08/07/23 07:43 36.6 C 70 18 155/89 H 95 Room Air 08/07/23 07:06 78 18 87 L Room Air 08/07/23 04:04 36.6 C 62 18 171/78 H 96 Room Air (1) Septic bursitis of elbow Laterality: right Qualified Code(s): M71.121 - Other infective bursitis, right elbow
[2023-08-07] MEDS: ENOXAPARIN INJ 40 MG/0.4 ML SYR SQ SCH (15:47)
[2023-08-07] MEDS: CALAMINE/PRAMOXINE LOTION 180 APPLN/180 ML BTL EXT PRN (20:43)
[2023-08-08] MEDS: VANCOMYCIN HCL 2,000 MG in SODIUM CHLORIDE 0.9% 500 ML IV ONE (06:04)
[2023-08-08 06:58] LABS: Basophils # (auto) 0.05 K/uL (0.00-0.20); Basophils % (auto) 0.5 %; Eosinophils # (auto) 0.32 K/uL (0.00-0.50); Eosinophils % (auto) 2.9 %; Hematocrit (blood only) 36.9 % (42.0-52.0); Hemoglobin 12.5 g/dl (14.0-18.0); Immature Granulocytes # (auto) 0.08 K/uL (0.01-0.20); Immature Granulocytes % (auto) 0.7 %; Lymphocytes # (auto) 2.34 K/uL (1.20-3.40); Lymphocytes % (auto) 21.1 %; Mean Corpuscular Hgb Conc 33.9 g/dL (32.0-36.0); Mean Corpuscular Volume 91.6 fL (80.0-100.0); Mean Platelet Volume 11.2 fL (9.4-12.4); Monocytes # (auto) 0.97 K/uL (0.11-0.59); Monocytes % (auto) 8.7 %; Neutrophils # (auto) 7.33 K/uL (1.40-6.50); Neutrophils % (auto) 66.1 %; Platelet Count 235 K/uL (130-400); RDW Coefficient of Variation 15.3 % (11.5-14.5); RDW Standard Deviation 51.2 fL (36.4-46.3); Red Blood Count 4.03 M/uL (4.70-6.10); White Blood Count 11.09 K/ul (4.8-10.8)
[2023-08-08 10:26] LABS: Calcium 8.4 mg/dl (8.6-10.3); Potassium 3.9 mmol/L (3.5-5.1)
[2023-08-08 10:32] LABS: BUN Creatinine Ratio 17.8 (10-20); Creatinine Clr Calc Pharmacy 71.9 ml/min; Est GFR (African American) 81.7 ml/min; Est GFR (Non-African American) 70.5 ml/min
[2023-08-08] MEDS: CETIRIZINE HCL 10 MG TABLET PO SCH (10:35)
[2023-08-08] MEDS: LIDOCAINE 5% 1 PATCH TD SCH (10:35)
[2023-08-08] MEDS: LORazepam 0.5 MG TAB PO PRN (14:34)
[2023-08-08] MEDS: LORazepam 0.5 MG in SYRINGE 0.25 ML IV ONE (15:35)
[2023-08-08] MEDS: KETOROLAC TROMETHAMINE 15 MG/ML VIAL IV PRN (15:39)
--- NOTE | 2023-08-08 17:00 | Hospitalist Progress Note ---
Date of Service August 08, 2023 Assessment & Plan (1) Septic bursitis of elbow: (2) Chronic shortness of breath: (3) Elevated LFTs: Plan per previous hospitalist notes with addendum: Florentin Franks is a 67 y/o M with PMHx of hyperlipidemia, COPD/pulmonary emphysema, chronic diastolic heart failure (EF 60 to 65% - TTE 2023), PVD, TAYLOR (CPAP intolerance), aortic atherosclerosis, GERD with esophagitis, chronic pain syndrome, senile osteoporosis, descending aortic thrombus [NOT on a nticoagulation therapy], hx of PE, tobacco use disorder, adjustment disorder with depressed mood/CARLOS and other problems listed below presented to the ED today for evaluation of right elbow pain x 5 days and was found to have septic bursitis of his right elbow. Septic Bursitis of Right Elbow ? Possible Septic Arthritis Admitting Imaging: * R Elbow XR --> "Dorsal soft tissue swelling with no acute fracture clearly identified. There is chronic deformity of the radial head with 2 screws/screw fragments in place. A buttress plate is partially visualized along the humeral shaft. Arthritic change is seen at the elbow joint with no dislocation identified. There is an elbow joint effusion." * Venous Doppler US of RUE --> "There is normal compressibility of the deep venous system from the forearm through the subclavian vein. Normal vascular flow is currently identified. No evidence of superficial thrombosis is identified." Patient's R elbow joint effusion was aspirated in the ED. [place] [address]. Synovial fluid gram stain revealed many polys, but NO organisms seen. ER provider (Dr. Ruff) consulted orthopedics. Orthopedics (Dr. Bradley Willis) saw and evaluated the patient. Recommends to follow aspiration culture, broad spectrum ABX coverage for now. NPO at midnight pending tomorrow's examination. Patient may require I&D of R elbow if no improvement. Patient received 2g IV Rocephin and 2g IV Vancomycin in the ED. He also was administered 8mg of morphine for pain. -WBC 14.62 on admission -Lyme disease screen negative -Lyme specimen source pending -Follow synovial fluid culture -Continue broad ABX coverage w/ Rocephin + Vancomycin -PRN pain regimen in place -Formal ortho consult placed -NPO at midnight pending ?I&D in AM w/ ortho if no improvement -PRN bowel regimen, PRN nausea relief -Repeat CBC w/ diff in AM 08/02 Joint fluid aspirate pending Blood cultures pending Continue vancomycin plus ceftriaxone IV N.p.o. postmidnight for planned washout tomorrow by Ortho 08/03 Have increased pain, edema, erythema Elbow MRI: No acute bony abnormality is identified. There is no MRI evidence of osteomyelitis as clinically queried. There is soft tissue edema around the elbow, the large amount of bursal fluid seen posteriorly. Correlate clinically for evidence of bursitis. The sterility of this fluid cannot be assessed on imaging. Ceftriaxone changed to cefepime IV Continue IV vancomycin ID consulted Ortho service on board 628 Status post I&D today Fluid drainage culture pending ID consulted Continue IV vancomycin plus cefepime for now 08/05 Stable overall Having significant pain Dilaudid increased to 1 mg every 6 hours, Toradol 30 mg every 6 hours as needed Tylenol 1 g every 8 hours scheduled Discussed with orthopedic service Will likely need 4 weeks of IV antibiotics PICC line ordered 08/06 Remained stable overall Pain improving JORGE drain to be pulled out today by orthopedic service Continue IV vancomycin plus cefepime Awaiting further ID recommendations 08/07 Continue IV vancomycin plus cefepime Awaiting ID recommendations regarding antibiotics Left wrist pain From IV insertion sites? 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, PRN albuterol inhaler -Could consider steroids if no improvement in breathing -EKG w/ chest pain as needed 08/02 Very faint wheeze Continue DuoNeb every 6 hours Continue usual fluticasone and Anoro Ellipta inhalers Monitor closely 08/05 resolved Hyperlipidemia: Continue SLUNK [employer]NER statin therapy Hx of Adjustment Disorder w/ Depressed Mood: Continue SLUN[employer]NER psychiatric medications Tobacco Use Disorder -Currently smoking 1/4 pack per day -Smoking cessation education ordered -Consider nicotine patch PRN, can continue 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 Seen resting in bed, not in distress Reports pain on the left wrist Right elbow pain manageable No other new symptoms Review of Systems Review of Systems: all noted and negative except for above Physical Exam Physical Exam: General- oriented x 3, not in distress, speaks in sentences with no effort or accessory muscle use Eyes- anicteric Neck- no JVD Lungs- clear breath sounds bilaterally, no rales/wheezes Heart- normal rate, regular rhythm; no murmurs Abdomen- normal bowel sounds, nondistended, soft, nontender Extremities- no pretibial edema, no calf tenderness Right elbow: Heavy dressing in place Left wrist: No edema, warmth, tenderness, erythema Positive pain with flexion Neuro- alert, oriented x 3; no gross focal neurologic deficits Skin- warm & dry Results & Data Results & Data Vital Signs (Past 12 Hours) Vital Signs Temp Pulse Pulse Resp BP BP Pulse Ox 08/08/23 15:36 36.9 C 67 18 133/106 H 94 08/08/23 14:00 70 08/08/23 11:33 36.7 C 64 18 149/78 H 96 08/08/23 07:44 37 C 64 18 166/92 H 93 08/08/23 07:02 67 08/08/23 07:00 O2 Del Method 08/08/23 15:36 Room Air 08/08/23 14:00 08/08/23 11:33 Room Air 08/08/23 07:44 Room Air 08/08/23 07:02 08/08/23 07:00 Room Air all noted and reviewed including below (1) Septic bursitis of elbow Laterality: right Qualified Code(s): M71.121 - Other infective bursitis, right elbow
[2023-08-08] MEDS: DICLOFENAC SOD 1% GEL 100 GM TUBE EXT SCH (21:25)
[2023-08-09 06:44] LABS: Basophils # (auto) 0.05 K/uL (0.00-0.20); Basophils % (auto) 0.6 %; Eosinophils # (auto) 0.29 K/uL (0.00-0.50); Eosinophils % (auto) 3.6 %; Hematocrit (blood only) 38.6 % (42.0-52.0); Hemoglobin 13.2 g/dl (14.0-18.0); Immature Granulocytes # (auto) 0.06 K/uL (0.01-0.20); Immature Granulocytes % (auto) 0.7 %; Lymphocytes # (auto) 1.58 K/uL (1.20-3.40); Lymphocytes % (auto) 19.5 %; Mean Corpuscular Hemoglobin 31.4 pg (25.0-34.0); Mean Corpuscular Hgb Conc 34.2 g/dL (32.0-36.0); Mean Corpuscular Volume 91.9 fL (80.0-100.0); Mean Platelet Volume 11.4 fL (9.4-12.4); Monocytes # (auto) 0.85 K/uL (0.11-0.59); Monocytes % (auto) 10.5 %; Neutrophils # (auto) 5.29 K/uL (1.40-6.50); Neutrophils % (auto) 65.1 %; Platelet Count 230 K/uL (130-400); RDW Coefficient of Variation 15.2 % (11.5-14.5); RDW Standard Deviation 51.1 fL (36.4-46.3); White Blood Count 8.12 K/ul (4.8-10.8)
[2023-08-09 07:37] LABS: Calcium 8.3 mg/dl (8.6-10.3)
[2023-08-09 07:43] LABS: BUN Creatinine Ratio 26.8 (10-20); Creatinine Clr Calc Pharmacy 79.3 ml/min; Est GFR (African American) 91.9 ml/min; Est GFR (Non-African American) 79.3 ml/min
--- NOTE | 2023-08-09 08:19 | Pharmacy Report ---
Pharmacy PK ABX Note - Date of Service August 09, 2023 - Assessment and Plan Assessment 08/08: * Vancomycin random came back at ~10 mcg/ml this AM, current vancomycin regimen predicted to achieve goal AUC/KIKE 400-600. Reasonable to continue current regimen of 2000 mg iv q 24 hours. Would recommend to get another vancomycin level in next 3-4 days and if levels/Scr stable could consider weekly monitoring thereafter. 08/06: * Vanco level of 14.9 mcg/mL has increased from prior and is associated with a therapeutic AUC of 586 mg/L.hr. However, per prior documentation, possibly plan for 4 weeks of IV antibiotics therefore will adjust regimen to target slightly lower AUC and adjust to a q24h regimen 08/04: * Vanc level of 11.5 mcg/mL on 08/03. Estimated AUC/KIKE of 497 mg/L.hr, which is at goal. * MRI from 08/03 revealed soft tissue edema around elbow, large amount of bursal fluid and no evidence of osteomyelitis. To OR today for R elbow I&D. 67 year old M receiving vancomycin/ceftraixone for treatment of possible septic bursitis of right elbow. Pertinent microbiologic data includes: right elbow aspirate culture pending. Per documentation today, no joint aspirate today, clinical improvement overnight, no longer going to OR today. Will follow culture. Plan Vancomycin * Continue vancomycin 2000 mg iv q 24 hours Pharmacy will continue to follow and will adjust dose/frequency as necessary. Thank you. Pharmacy has transitioned to AUC monitoring for vancomycin. AUC/KIKE is the preferred PK/PD target and is associated with decreased risk of nephrotoxicity compared to traditional trough targets.
[2023-08-09] MEDS: VANCOMYCIN HCL 2,000 MG in SODIUM CHLORIDE 0.9% 500 ML IV SCH (08:51)
[2023-08-09] MEDS: VANCOMYCIN LEVEL ONE (10:20)
--- NOTE | 2023-08-09 10:20 | Hospitalist Progress Note ---
Date of Service August 09, 2023 Assessment & Plan (1) Septic bursitis of elbow: (2) Chronic shortness of breath: (3) Elevated LFTs: Plan per previous hospitalist notes with addendum: Florentin Franks is a 67 y/o M with PMHx of hyperlipidemia, COPD/pulmonary emphysema, chronic diastolic heart failure (EF 60 to 65% - TTE 2023), PVD, TAYLOR (CPAP intolerance), aortic atherosclerosis, GERD with esophagitis, chronic pain syndrome, senile osteoporosis, descending aortic thrombus [NOT on a nticoagulation therapy], hx of PE, tobacco use disorder, adjustment disorder with depressed mood/CARLOS and other problems listed below presented to the ED today for evaluation of right elbow pain x 5 days and was found to have septic bursitis of his right elbow. Septic Bursitis of Right Elbow ? Possible Septic Arthritis Admitting Imaging: * R Elbow XR --> "Dorsal soft tissue swelling with no acute fracture clearly identified. There is chronic deformity of the radial head with 2 screws/screw fragments in place. A buttress plate is partially visualized along the humeral shaft. Arthritic change is seen at the elbow joint with no dislocation identified. There is an elbow joint effusion." * Venous Doppler US of RUE --> "There is normal compressibility of the deep venous system from the forearm through the subclavian vein. Normal vascular flow is currently identified. No evidence of superficial thrombosis is identified." Patient's R elbow joint effusion was aspirated in the ED. [place] [address]. Synovial fluid gram stain revealed many polys, but NO organisms seen. ER provider (Dr. uRff) consulted orthopedics. Orthopedics (Dr. Bradley Willis) saw and evaluated the patient. Recommends to follow aspiration culture, broad spectrum ABX coverage for now. NPO at midnight pending tomorrow's examination. Patient may require I&D of R elbow if no improvement. Patient received 2g IV Rocephin and 2g IV Vancomycin in the ED. He also was administered 8mg of morphine for pain. -WBC 14.62 on admission -Lyme disease screen negative -Lyme specimen source pending -Follow synovial fluid culture -Continue broad ABX coverage w/ Rocephin + Vancomycin -PRN pain regimen in place -Formal ortho consult placed -NPO at midnight pending ?I&D in AM w/ ortho if no improvement -PRN bowel regimen, PRN nausea relief -Repeat CBC w/ diff in AM 08/02 Joint fluid aspirate pending Blood cultures pending Continue vancomycin plus ceftriaxone IV N.p.o. postmidnight for planned washout tomorrow by Ortho 08/03 Have increased pain, edema, erythema Elbow MRI: No acute bony abnormality is identified. There is no MRI evidence of osteomyelitis as clinically queried. There is soft tissue edema around the elbow, the large amount of bursal fluid seen posteriorly. Correlate clinically for evidence of bursitis. The sterility of this fluid cannot be assessed on imaging. Ceftriaxone changed to cefepime IV Continue IV vancomycin ID consulted Ortho service on board [id number] Status post I&D today Fluid drainage culture pending ID consulted Continue IV vancomycin plus cefepime for now 08/05 Stable overall Having significant pain Dilaudid increased to 1 mg every 6 hours, Toradol 30 mg every 6 hours as needed Tylenol 1 g every 8 hours scheduled Discussed with orthopedic service Will likely need 4 weeks of IV antibiotics PICC line ordered 08/06 Remained stable overall Pain improving JORGE drain to be pulled out today by orthopedic service Continue IV vancomycin plus cefepime Awaiting further ID recommendations 08/07 Continue IV vancomycin plus cefepime Awaiting ID recommendations regarding antibiotics Left wrist pain From IV insertion sites? Monitor closely Voltaren gel twice daily Patient declines ice pack Elevated LFTs -AST 47, ALT 78 on admission -Hold hepatotoxic medications when able -Repeat CMP in AM, monitor LFTs Improving Chronic Obstructive Pulmonary Disease (COPD) Chronic Shortness of Breath, Recent Cough -Pt complains of constant SOB, recent cough -No acute findings on CXR -Follows w/ [facility] Pulm -Will schedule Duonebs Q4H -Continue [employer] Trelegy, PRN albuterol inhaler -Could consider steroids if no improvement in breathing -EKG w/ chest pain as needed 08/02 Very faint wheeze Continue DuoNeb every 6 hours Continue usual fluticasone and Anoro Ellipta inhalers Monitor closely 08/05 resolved Hyperlipidemia: Continue [employer] statin therapy Hx of Adjustment Disorder w/ Depressed Mood: Continue TO[employer] psychiatric medications Tobacco Use Disorder -Currently smoking 1/4 pack per day -Smoking cessation education ordered -Consider nicotine patch PRN, can continue [employer] bupropion GERD w/ Esophagitis: Continue [employer] pantoprazole Hx of Neuropathy: Continue [employer] pregabalin DVT Prophylaxis: Lovenox Code Status: FULL CODE PCP: Ajit Moreno MD Dispo: Lives at home with his Anticipate return to home medically stable Admission and Anticipated Discharge Date Admission Date: August 02, 2023 Results & Data Results & Data Vital Signs (Past 12 Hours) Vital Signs Temp Pulse Pulse Resp BP Pulse Ox O2 Del Method 08/09/23 08:35 36.7 C 60 18 176/90 H 93 Room Air 08/09/23 07:37 61 08/09/23 03:30 36.8 C 59 L 18 158/82 H 94 Room Air 08/09/23 00:00 80 08/08/23 23:30 36.6 C 79 18 149/79 H 91 Room Air (1) Septic bursitis of elbow Laterality: right Qualified Code(s): M71.121 - Other infective bursitis, right elbow
[2023-08-09] MEDS: FUROSEMIDE INJ 20 MG/2 ML VIAL IV ONE (10:37)
--- NOTE | 2023-08-09 13:24 | Discharge Summary ---
Discharge Summary Date of Service August 09, 2023 Principal Dx & Hospital Course #1 = Principal Diagnosis Notes For Next Care Provider Medication Changes From Visit Ceftriaxone 2 g IV x 4 weeks Admission HPI Per Admitting Provider Florentin Franks is a 67 y/o M with PMHx of hyperlipidemia, COPD/pulmonary emphysema, chronic diastolic heart failure (EF 60 to 65% - TTE 2023), PVD, TAYLOR (CPAP intolerance), aortic atherosclerosis, GERD with esophagitis, chronic pain syndrome, senile osteoporosis, descending aortic thrombus [NOT on antico agulation therapy], hx of PE, tobacco use disorder, adjustment disorder with depressed mood/CARLOS and other problems listed below presented to the ED today for evaluation of right elbow pain x 5 days. History obtained from patient and associated chart review. Patient seen at bedside with Dr. Avalos. Patient complains of right elbow pain x 5 days. States the pain has been progressively worsening and is becoming unbearable. 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 Mentions he has not been able to work for the past 5 days or so due to this pain. He denies any trauma to his right elbow. Denies any fevers, chills or body aches. He does note some swelling of the right elbow region as well. States he did have an operative intervention performed for a "crush injury" of his right elbow in the distant past. He denies any recent procedures to his right elbow. He has not been taking anything at home for pain, patient states he "does not like to take medicine." Mentions he was unable to sleep well last night due to the pain. Denies any chest pain, abdominal pain or urinary/bowel habit changes. Patient currently also complaining of some SOB. States he is "always short of breath." He has been using his nebulizer 4x/day for the past week or so. He also relies on his albuterol inhaler quite frequently. Patient was recently admitted in May (05/17-05/20) here at [facility] for a COPD exacerbation. He mentions that he recently completed a course of azithromycin [5-day course] and steroids on (07/27), which were prescribed by his PCP 2/2 increased SOB/wheezing. Patient states this really did not help his breathing. Reports steroids "do not do much." However, patient was only prescribed a 5-day burst dose of prednisone (not a taper). Admission Exam Per Admitting Provider On exam, AAO, in discomfort due to pain, Rt elbow extremely tender with limited ROM and some fullness, chest clear, heart sounds normal, Abd benign, neuro grossly intact. Discharge Exam Eyes- anicteric Neck- no JVD Lungs- clear breath sounds bilaterally, no rales/wheezes Heart- normal rate, regular rhythm; no murmurs Abdomen- normal bowel sounds, nondistended, soft, nontender Extremities- no pretibial edema, no calf tenderness Right elbow: Heavy dressing in place, No arm edema/erythema/tenderness/warmth Left wrist: No edema, warmth, tenderness, erythema Positive pain with flexion Neuro- alert, oriented x 3; no gross focal neurologic deficits Skin- warm & dry Updated Medication List Medication Instructions Recorded Confirmed Type pregabalin 100 mg capsule (Lyrica) 100 mg PO BID 10/16/17 08/02/23 History meclizine 12.5 mg tablet 12.5 mg PO TID PRN Dizziness 06/28/21 08/02/23 History bupropion HCl 150 mg tablet,12 hr 150 mg PO BID 04/07/22 08/02/23 History sustained-release (Wellbutrin SR) ondansetron 8 mg disintegrating 8 mg PO Q8H PRN Nausea 04/07/22 08/02/23 History tablet clobetasol 0.05 % topical cream 1 applic topical BID PRN Rash 12/29/22 08/02/23 History levalbuterol HCl 1.25 mg/3 mL 1.25 mg inhalation Q4H PRN Wheezing 12/29/22 08/02/23 History solution for nebulization triamcinolone acetonide 0.1 % 1 applic topical BID PRN Rash 12/29/22 08/02/23 History topical cream cyanocobalamin (vitamin B-12) 1,000 mcg PO QAM 03/08/23 08/02/23 History 1,000 mcg tablet (Vitamin B-12) aspirin 81 mg tablet,delayed 81 mg PO QAM #30 tabs 03/11/23 08/02/23 Rx release atorvastatin 80 mg tablet (Lipitor) 80 mg PO DAILY #30 tabs 03/11/23 08/02/23 Rx pantoprazole 40 mg tablet,delayed 40 mg PO BID 30 days #60 tabs 04/06/23 08/02/23 Rx release (Protonix) albuterol sulfate 90 mcg/actuation 2 puff inhalation Q4H PRN 04/26/23 08/02/23 Rx aerosol inhaler Shortness Of Breath Or Wheezing #8.5 grams escitalopram oxalate 10 mg tablet 10 mg PO DAILY 06/13/23 08/02/23 History fluticasone fur. 200 mcg-umeclid 1 inh inhalation DAILY 06/13/23 08/02/23 History 62.5 mcg-vilant 25 mcg inhalat.powder (Trelegy Ellipta) diclofenac sodium 1 % topical gel 2 g EXT Q4H PRN neck pain #100 06/16/23 08/02/23 Rx (Voltaren Arthritis Pain) grams oxycodone 5 mg tablet 5 mg PO Q6H PRN pain #15 tabs 06/16/23 08/02/23 Rx CPAP Machine #1 ea 06/24/23 08/02/23 Rx CPAP Supplies #1 ea 06/24/23 08/02/23 Rx baclofen 5 mg tablet 5 mg PO TID PRN muscle spasms 08/02/23 08/02/23 History furosemide 40 mg tablet 40 mg PO QAM PRN Fluid 08/02/23 08/02/23 History accumulation, weight gain Hospital Stay Data Consultations 08/02/23 15:10 ED Decision to Admit Stat 08/02/23 18:08 Consult Orthopedic Surgery Routine 08/04/23 14:16 Consult Infectious Diseases Routine Procedures Performed Operation Date: 08/05/23 07:00 Actual Procedures p Right Elbow Incision and Drainage(Right) - Bradley Willis MD Diagnostic Imagining Performed Laboratory Results WBC 8.12 K/ul (4.8-10.8) 08/09/23 05:35 RBC 4.20 M/uL (4.70-6.10) L 08/09/23 05:35 Hgb 13.2 g/dl (14.0-18.0) L 08/09/23 05:35 Hct 38.6 % (42.0-52.0) L 08/09/23 05:35 MCV 91.9 fL (80.0-100.0) 08/09/23 05:35 MCH 31.4 pg (25.0-34.0) 08/09/23 05:35 MCHC 34.2 g/dL (32.0-36.0) 08/09/23 05:35 RDW Std Deviation 51.1 fL (36.4-46.3) H 08/09/23 05:35 RDW Coeff of Jaz 15.2 % (11.5-14.5) H 08/09/23 05:35 Plt Count 230 K/uL (130-400) 08/09/23 05:35 MPV 11.4 fL (9.4-12.4) 08/09/23 05:35 Immature Gran % (Auto) 0.7 % 08/09/23 05:35 Neut % (Auto) 65.1 % 08/09/23 05:35 Lymph % (Auto) 19.5 % 08/09/23 05:35 [place] % (Auto) 10.5 % 08/09/23 05:35 Eos % (Auto) 3.6 % 08/09/23 05:35 Baso % (Auto) 0.6 % 08/09/23 05:35 Neut # (Auto) 5.29 K/uL (1.40-6.50) 08/09/23 05:35 Lymph # (Auto) 1.58 K/uL (1.20-3.40) 08/09/23 05:35 [place] # (Auto) 0.85 K/uL (0.11-0.59) H 08/09/23 05:35 Eos # (Auto) 0.29 K/uL (0.00-0.50) 08/09/23 05:35 Baso # (Auto) 0.05 K/uL (0.00-0.20) 08/09/23 05:35 Immature Gran # (Auto) 0.06 K/uL (0.01-0.20) 08/09/23 05:35 ESR 24 mm/hr (0-20) H 08/06/23 05:40 PT 11.1 Seconds (9.0-12.0) 08/02/23 09:50 INR 1.0 (0.9-1.1) 08/02/23 09:50 Sodium 141 mmol/L (136-145) 08/09/23 05:35 Potassium 4.0 mmol/L (3.5-5.1) 08/09/23 05:35 Chloride 105 mmol/L (98-107) 08/09/23 05:35 Carbon Dioxide 30 mmol/L (21-32) 08/09/23 05:35 Anion Gap 6 (3-11) 08/09/23 05:35 BUN 26 mg/dl (6-23) H 08/09/23 05:35 Creatinine 0.97 mg/dl (0.6-1.4) 08/09/23 05:35 Est Cr Clr Drug Dosing 79.3 ml/min 08/09/23 05:35 Est GFR ( Amer) 91.9 ml/min 08/09/23 05:35 Est GFR (Non-Af Amer) 79.3 ml/min 08/09/23 05:35 BUN/Creatinine Ratio 26.8 (10-20) H 08/09/23 05:35 Glucose 92 mg/dl (70-99(Fasting)) 08/09/23 05:35 Calcium 8.3 mg/dl (8.6-10.3) L 08/09/23 05:35 Total Bilirubin 0.3 mg/dl (0.2-1.0) 08/03/23 07:59 AST 35 U/L (13-39) 08/03/23 07:59 ALT 63 U/L (7-52) H 08/03/23 07:59 Alkaline Phosphatase 80 U/L (34-104) 08/03/23 07:59 Troponin I High Sens 8.6 pg/ml (0-20) 08/02/23 09:50 C-Reactive Protein 0.97 mg/dl (0-0.5) H 08/06/23 05:43 Total Protein 5.7 gm/dl (6.0-8.3) L 08/03/23 07:59 Albumin 3.2 gm/dl (3.4-5.0) L 08/03/23 07:59 Globulin 2.5 gm/dl (2.5-4.0) 08/03/23 07:59 Albumin/Globulin Ratio 1.3 (0.9-2) 08/03/23 07:59 Lipase 14 U/L (11-82) 08/02/23 09:50 Fld Lyme DNA (PCR) Not Detected (Not Detected) 08/02/23 11:27 Fluid Comment 08/02/23 11:27 Synovial Source Right Elbow 08/02/23 11:27 Synovial Color Yellow 08/02/23 11:27 Synovial Appearance Cloudy 08/02/23 11:27 Synovial WBC (Auto) 07069 /ul (0-200) H 08/02/23 11:27 Synovial RBC (Auto) 12300 /uL 08/02/23 11:27 Synovial Polynuclear % 96.7 % 08/02/23 11:27 Synovial Mononuclear % 3.3 % 08/02/23 11:27 Synovial Crystals 08/02/23 11:27 Random Vancomycin 9.5 mcg/ml (10-20) L 08/09/23 05:35 Lyme Specimen Source SYNOVIAL FLUID 08/02/23 11:27 Lyme Disease Screen Negative (Negative) 08/02/23 09:50 Lyme DNA Comment see note 08/02/23 11:27 Impressions Chest X-Ray 08/02/23 09:25 XR chest 1V portable CLINICAL HISTORY: Chest pain, nonspecific COMPARISON STUDY: Chest CT May 12, 2023. Chest radiograph June 13, 2023. FINDINGS: Left shoulder arthroplasty and right humeral internal fixation are partially imaged. There is emphysema. No pneumothorax or pleural effusion is present. Cardiomediastinal silhouette is normal. There is no consolidation to suggest pneumonia. Appearance of the chest is unchanged. Linear left upper lung densities represent atelectasis or scarring. IMPRESSION: No acute cardiopulmonary findings. No significant change in appearance of the chest. ACT 112: Negative or not required by law. Electronically signed by: Jose A Hernandez M.D. 08/02/2023 9:50 AM Elbow X-Ray 08/02/23 09:25 RIGHT ELBOW 3 VIEWS CLINICAL HISTORY: Atraumatic right elbow pain. FINDINGS: 3 views of the right elbow are compared to study dated 10/03/2014. The skeletal structures are osteopenic. No acute fracture is clearly identified. There is chronic deformity of the radial head with 2 screws/screw fragments in place. A buttress plate is partially visualized along the humeral shaft. Arthritic change is seen at the elbow joint with no dislocation identified. There is an elbow joint effusion. Soft tissue edema is present around the elbow, greatest dorsally. IMPRESSION: 1. Dorsal soft tissue swelling with no acute fracture clearly identified. 2. Chronic and postsurgical changes as above. 3. There is a nonspecific joint effusion. Although this could potentially be seen with occult fracture, this is considered unlikely in the absence of a trauma history. Clinical correlation will be required. Electronically signed by: Wayne Baez M.D. 08/02/2023 9:52 AM Venous Doppler Study 08/02/23 09:40 US venous doppler UE RT CLINICAL HISTORY: eval for dvt PROCEDURE: Right upper extremity real-time compression venous ultrasound with Duplex and color Doppler imaging. Comparison: None available at the time of this dictation. FINDINGS/IMPRESSION: There is normal compressibility of the deep venous system from the forearm through the subclavian vein. Normal vascular flow is currently identified. No evidence of superficial thrombosis is identified. ACT 112: Negative or not required by law. Electronically signed by: Florin Soto M.D. 08/02/2023 10:56 AM Elbow MRI 08/04/23 09:02 MRI OF THE RIGHT ELBOW WITHOUT IV CONTRAST CLINICAL HISTORY: Right elbow pain. Infection. COMPARISON STUDY: Radiographs of the right elbow dated 08/02/2023. TECHNIQUE: MRI of the right elbow was performed utilizing various T1 and T2- weighted sequences in the axial and sagittal planes. IV contrast was not administered for this examination. There is susceptibility artifact from metallic hardware. The examination is significantly degraded by motion artifact. FINDINGS: There is chronic deformity of the radial head with susceptibility artifact from cortical screws. Increased T2 signal within the capitellum is likely related to artifact from the radial head hardware. There is no MRI evidence of acute fracture. There is no bony abnormality or marrow edema identified to suggest osteomyelitis. Arthritic change is seen throughout the joint with full-thickness cartilage loss at the radiocapitellar articulation. There is chronic tearing of the radial collateral ligament. There is tendinopathy with high-grade tearing at the humeral attachment of the common extensor tendon. A few fibers likely remain intact. Findings suggest postsurgical change at this site. The ulnar collateral ligament appears maintained, and the common flexor tendon appears intact. The biceps and br achioradialis tendons are maintained. There is tendinopathy at the attachment of triceps tendon. The fibers appear intact. There is a joint effusion. Soft tissue edema is seen around the elbow, greatest dorsally. There is a large amount of bursal fluid posterior to the elbow. The regional musculature is normal in appearance. IMPRESSION: 1. No acute bony abnormality is identified. There is no MRI evidence of osteomyelitis as clinically queried. 2. There is soft tissue edema around the elbow, the large amount of bursal fluid seen posteriorly. Correlate clinically for evidence of bursitis. The sterility of this fluid cannot be assessed on imaging. 3. There is chronic deformity of the radial head with postsurgical and arthritic change. 4. There is chronic tearing of the radial collateral ligament. 5. There is tendinopathy and high-grade partial-thickness tearing at the humeral attachment of the common extensor tendon. A few fibers remain intact, there has likely been surgery at this site. 6. Nonspecific joint effusion. Dictated: 08/04/2023 3:20 PM Transcribed: 08/04/2023 3:36 PM Alberto [id number] Jez [id number] Electronically signed by: Wayne Baez M.D. 08/04/2023 4:14 PM Pending Results Patient Have Any Pending Studies at Discharge: Yes Discharge Instructions Given to Patient (Per Discharging Provider) PLEASE REFER TO YOUR NEW MEDICATION LIST AND FOLLOW INSTRUCTIONS CAREFULLY. YOUR NEW MEDICATIONS INCLUDE: Ceftriaxone-intravenous antibiotics for septic arthritis of the right elbow Please take a probiotic every day for at least 2 months. Eat yogurt daily as well. This is to prevent diarrhea associated with prolonged antibiotic use. You need to have weekly blood work including complete blood count, complete metabolic profile while on IV antibiotic. PLEASE CALL YOUR PRIMARY CARE PHYSICIAN OR RETURN TO THE ER IF WITH WORSENING OF SYMPTOMS, INCLUDING Pain, swelling, bleeding, discharge on the right elbow, etc. Fevers or chills, nausea vomiting, weakness, diarrhea, etc. FOLLOW UP WITH PRIMARY CARE PHYSICIAN OUTLINED ABOVE. Follow-up with orthopedic surgeon as outlined above. Total Time Total Time Spent Total Time Spent (In Minutes): 45 minutes
[2023-08-09] MEDS: cefTRIAXone SODIUM 2,000 MG/50 ML BAG IV SCH (14:51)
[2023-08-09] MEDS: METOPROLOL TARTRATE 25 MG TAB PO STA (16:01)
== END 2023-08-09 16:18 | disposition home health service (06) | DRG 501 ==
LOC: ED 09:10 → SUATTDRO 15:13 → 2W 15:13

== ENCOUNTER 2023-09-23 07:51 | Inpatient (IN) ==
--- NOTE | 2023-09-23 08:13 | Emergency Department Note ---
Impression & Plan SOB (shortness of breath), COPD exacerbation, COVID-19, Hypomagnesemia, Anemia ED Provider Note NAME: ANGELES BURLESON AGE: 67 SEX: M : 1955 ARRIVES VIA: Walk-In INFORMANT: [Patient][family] ED PROVIDER(S): [Wayne Patel MD] CHIEF COMPLAINT: Short of breath HISTORY OF PRESENT ILLNESS: The patient is a 67-year-old male with a history of COPD. He typically wears 2 L of O2 at night. He has had about 3 days of increased dry cough and shortness of breath. The shortness of breath is noticed particularly with exertion. There has been no stuffy nose or sore throat, no sick contacts, no fever. He did start a rescue kit of prednisone 3 days ago but it has not really helped. He is also using Mucinex. The patient states that he started using his nebulizer machine yesterday again, he has not noticed any relief. PMHx/PSHx/Social Hx: See Below PHYSICAL EXAM: GENERAL: Patient is in mild respiratory distress. HEENT: No acute trauma, normocephalic atraumatic, mucous membranes moist, no nasal congestion. NECK: No stridor, no adenopathy, no meningismus, trachea is midline. LUNGS: Increased respiratory rate. There are wheezes bilaterally, breath sounds are diminished bilaterally. Mild respiratory distress noted. HEART: Without murmurs gallops or rubs, regular rate and rhythm. Heart tones are quite distant. ABDOMEN: Soft, nontender, no peritonitis. EXTREMITIES: No cyanosis, full range of motion of all the joints without pain or difficulty. Very mild bilateral pedal edema. NEUROLOGIC: Oriented x 3, no acute motor or sensory deficits, no focal weakness. SKIN: No jaundice, no diaphoresis. DIFFERENTIAL DIAGNOSIS: Bronchitis or pneumonia, CHF, viral illness, COPD flare, VA, among others. EMERGENCY DEPARTMENT PROCEDURES: MEDICAL DECISION MAKING: There is no leukocytosis. A mild anemia was seen however, patient has a history of a mild anemia. There was a normal platelet count. No coagulopathy. No renal failure. Magnesium was critically low at 0.9. There were some elevated liver enzymes that have been documented before. The bilirubin was normal. ECG shows a normal sinus rhythm, no acute ST elevation. Cardiac enzyme testing x 1 is not consistent with acute cardiac injury. Chest film showed some chronic change, no pneumonia or CHF. Respiratory bio fire was positive for COVID-19. On exam, the patient appeared somewhat short of breath, he was in some mild respiratory distress. He was wheezing with diminished breath sounds. The patient was given a 1 hour DuoNeb. He was given IV Solu-Medrol. He received IV magnesium for the low magnesium value. He was given IV ceftriaxone as antibiotic coverage. The patient does not feel much better since his treatment here in the ED. His O2 saturation though is adequate and, he does not appear as short of breath compared to when he arrived. I suspect the COVID-19 infection has flared his COPD. This coupled with the low magnesium has caused his presentation. The patient is clearly in need of a hospital stay. He will require further pulmonary care and close observation. I spoke with the patient and case management. The on-call hospitalist was consulted. Prior/Outside records/notes reviewed: None ECG per my interpretation: Indication was shortness of breath. The ECG shows a normal sinus rhythm with some sinus arrhythmia. The rate is 60. There is no acute ST elevation, no PVCs. The QTc is 422. Continuous Cardiac Monitoring per my interpretation: An order was placed for continuous cardiac monitoring. The monitor shows a rate of 66 with normal sinus rhythm. Imaging/x-ray results per my interpretation: Chest x-ray shows some chronic lung change with some chronic atelectasis to the left base. There was no focal infiltrate, no CHF or pneumothorax. Chronic Medical/Social conditions affecting care: History of COPD, nighttime O2 use required. Care/Management discussed with: Case management, the on-call hospitalist. Level of care consideration(s): After review of the information above and other included data: --I believe the patient requires escalation of care to admission Critical Care Note: I have personally spent 47 minutes of critical care time in the direct management of this patient. This includes bedside care, interpretation of diagnostic studies, and testing, discussion with consultants, patient, and family members, and other required patient management activities. This 47 minutes is in excess of all separately billable procedures. DISPOSITION: Admission Past Med/Surg History Problem List (Updated 09/23/23 @ 10:59 by Wayne Patel MD) Anemia (Acute) Hypomagnesemia (Acute) COVID-19 (Acute) COPD exacerbation (Acute) SOB (shortness of breath) (Acute) Type 2 diabetes mellitus Septic arthritis of elbow, right Chronic shortness of breath Elevated LFTs Septic bursitis of elbow (Acute) Myofascial pain Neck muscle spasm Spasm of right trapezius muscle Elevated transaminase level Elevated troponin I level (Acute) Acute neck pain (Acute) COPD (chronic obstructive pulmonary disease) (Acute) Bilateral wheezing (Acute) SOB (shortness of breath) (Acute) TAYLOR (obstructive sleep apnea) Cannot tolerate device Dizziness (Acute) Headache (Acute) Abdominal pain (Acute) Acute respiratory failure with hypoxemia Thrombus of aorta (Acute) Acute hypotension (Acute) Chest pain (Acute) Encounter for pre-operative examination Hypertension (Chronic) Acute exacerbation of chronic obstructive airways disease (Acute) Tobacco abuse Obesity (Acute) Hypertrophy of nasal turbinates (Acute) Chronic sinusitis (Acute) Chronic post-thoracotomy pain (Acute) Cervical radiculopathy (Acute) Arthritis (Acute) Acquired deviated nasal septum (Acute) Cessation of tobacco use in previous 12 months Nasal polyp Gastritis Closed compression fracture of lumbar vertebra (Acute) Closed fracture of radial head (Acute) Fall (Acute) Left wrist sprain Compression fracture of L5 vertebra Pulmonary nodule seen on imaging study Multiple pulmonary nodules COPD with emphysema Chronic bronchitis Current smoker Acute bronchitis COPD exacerbation (Acute) Bronchitis (Acute) Chest pain (Acute) COPD exacerbation (Acute) Leukocytosis (Acute) Shortness of breath at rest (Acute) Post-nasal drip Chronic - stable Viral upper respiratory illness hx Anxiety (Chronic) HLD (hyperlipidemia) (Chronic) Thoracic spinal stenosis (Chronic) Diaphragmatic hernia (Chronic) GERD (gastroesophageal reflux disease) (Chronic) Well controlled and stable Neuropathy (Chronic) COPD, moderate (Chronic) Breathing stable Medical History Chronic respiratory failure On oxygen at night in the past - but no longer needs per patient Hx of migraines Sleep apnea No device History of COVID-19 2019, moderate symptoms > resolved 2020, mild symptoms > resolved Pneumothorax Hx- complication from pain injection- resolved Histoplasmosis 2002- treated Surgical History History of esophagogastroduodenoscopy (EGD) Hx of colonoscopy History of open reduction and internal fixation (ORIF) procedure right shoulder History of total replacement of left shoulder joint History of sinus surgery History of placement of chest tube History of hand surgery Left femoral shaft fracture Dutch placed H/O total hip arthroplasty left side H/O elbow surgery H/O exploratory thoracotomy "Left thoracotomy wedge biopsy of left upper lobe with excision of lesion or nodule & frozen section 2002" H/O hernia repair "[facility] incarcerated supraumbilical hernia repair open no mesh 02/17/01" Family History Father Heart disease Hypertension Brother Cancer Hypertension Stroke Heart disease Mother Cancer Other Leukemia No family history of bleeding disorder Non-Hodgkin lymphoma Denies family history of Hearing loss Asthma Social History Smoking Status: Current every day smoker Tobacco Type: Cigarettes Age Started Using Tobacco: 11; packs per day: 1; Cigarettes Per Day: 1/4 pack; Second Hand Exposure: No; Do You Dip or Chew Tobacco: No; Hx Alcohol Use: Yes Alcohol type: hard liquor Hx Substance Use: No Preferred Language: Indonesian Communication Ability: Effective Primary Special Educator Required: No Beliefs That Will Affect Care: None marital status: Current Living Situation: Spouse current occupational status: unemployed Feels Safe at Home: Yes Assistive Devices: Oxygen - at Night and Other Allergies Allergies Allergy/AdvReac Type Severity Reaction Status Date / Time No Known Allergies Allergy Verified 06/16/23 07:11 Home Meds Home Medications Medication Instructions Recorded Confirmed pregabalin 100 mg capsule (Lyrica) 100 mg PO BID 10/16/17 09/23/23 meclizine 12.5 mg tablet 12.5 mg PO TID PRN Dizziness 06/28/21 09/23/23 ondansetron 8 mg disintegrating 8 mg PO Q8H PRN Nausea 04/07/22 09/23/23 tablet clobetasol 0.05 % topical cream 1 applic topical BID PRN Rash 12/29/22 09/23/23 levalbuterol HCl 1.25 mg/3 mL 1.25 mg inhalation Q4H PRN Wheezing 12/29/22 09/23/23 solution for nebulization triamcinolone acetonide 0.1 % 1 applic topical BID PRN Rash 12/29/22 09/23/23 topical cream cyanocobalamin (vitamin B-12) 1,000 mcg PO QAM 03/08/23 09/23/23 1,000 mcg tablet (Vitamin B-12) escitalopram oxalate 10 mg tablet 10 mg PO DAILY 06/13/23 09/23/23 fluticasone fur. 200 mcg-umeclid 1 inh inhalation DAILY 06/13/23 09/23/23 62.5 mcg-vilant 25 mcg inhalat.powder (Trelegy Ellipta) baclofen 5 mg tablet 5 mg PO TID PRN muscle spasms 08/02/23 09/23/23 furosemide 40 mg tablet 40 mg PO QAM PRN Fluid 08/02/23 09/23/23 accumulation, weight gain Previous Rx's Medication Instructions Recorded aspirin 81 mg tablet,delayed 81 mg PO QAM #30 tabs 03/11/23 release atorvastatin 80 mg tablet (Lipitor) 80 mg PO DAILY #30 tabs 03/11/23 pantoprazole 40 mg tablet,delayed 40 mg PO BID 30 days #60 tabs 04/06/23 release (Protonix) albuterol sulfate 90 mcg/actuation 2 puff inhalation Q4H PRN 04/26/23 aerosol inhaler Shortness Of Breath Or Wheezing #8.5 grams diclofenac sodium 1 % topical gel 2 g EXT Q4H PRN neck pain #100 06/16/23 (Voltaren Arthritis Pain) grams CPAP Machine #1 ea 06/24/23 CPAP Supplies #1 ea 06/24/23 metoprolol tartrate 25 mg tablet 12.5 mg (1/2 x 25 mg) PO BID #30 08/09/23 tabs Results & Data (ED) Vital Signs Vital Signs - 24 hr 09/23/23 07:54 09/23/23 08:02 09/23/23 08:04 Temperature 36.7 C Temperature Source Temporal Artery Scan Pulse Rate 70 Respiratory Rate 24 Respiratory Effort / Characteristics Spontaneous Respiratory Depth Normal Respiratory Pattern Regular Blood Pressure 150/82 H Blood Pressure Mean 104 Blood Pressure Position Sitting Pulse Oximetry 97 98 Oxygen Delivery Method Room Air Nasal Cannula Nasal Cannula Oxygen Flow Rate 2 2 Sepsis Recent Fever Within 48 Hours No Sepsis New/Unexplained Change in Mental Status No Sepsis Action Taken by Nursing No Action Required 09/23/23 08:05 09/23/23 08:15 09/23/23 08:30 Temperature Temperature Source Pulse Rate 66 Respiratory Rate Respiratory Effort / Characteristics Respiratory Depth Respiratory Pattern Blood Pressure 117/89 Blood Pressure Mean 97 Blood Pressure Position Pulse Oximetry Oxygen Delivery Method Nasal Cannula Oxygen Flow Rate 2 Sepsis Recent Fever Within 48 Hours Sepsis New/Unexplained Change in Mental Status Sepsis Action Taken by Nursing 09/23/23 08:30 09/23/23 09:00 09/23/23 09:27 Temperature 36.6 C Temperature Source Oral Pulse Rate 63 73 Respiratory Rate 22 17 Respiratory Effort / Characteristics Respiratory Depth Respiratory Pattern Blood Pressure 139/68 Blood Pressure Mean 97 Blood Pressure Position Pulse Oximetry 97 100 Oxygen Delivery Method Oxygen Flow Rate Sepsis Recent Fever Within 48 Hours Sepsis New/Unexplained Change in Mental Status Sepsis Action Taken by Nursing 09/23/23 09:30 Temperature Temperature Source Pulse Rate 91 H Respiratory Rate 24 Respiratory Effort / Characteristics Respiratory Depth Respiratory Pattern Blood Pressure 144/69 H Blood Pressure Mean 88 Blood Pressure Position Pulse Oximetry 97 Oxygen Delivery Method Oxygen Flow Rate Sepsis Recent Fever Within 48 Hours Sepsis New/Unexplained Change in Mental Status Sepsis Action Taken by [facility] Medications Current Medication List: was personally reviewed by me Laboratory Data Attestation: I reviewed the patient's lab results. 09/23/23 08:19 09/23/23 08:19 Lab Results 09/23/23 09/23/23 Range/Units 08:13 08:19 WBC 7.79 (4.8-10.8) K/ul RBC 4.03 L (4.70-6.10) M/uL Hgb 12.6 L (14.0-18.0) g/dl Hct 37.7 L (42.0-52.0) % MCV 93.5 (80.0-100.0) fL MCH 31.3 (25.0-34.0) pg MCHC 33.4 (32.0-36.0) g/dL RDW Std Deviation 51.6 H (36.4-46.3) fL RDW Coeff of Jaz 14.8 H (11.5-14.5) % Plt Count 261 (130-400) K/uL MPV 11.1 (9.4-12.4) fL Immature Gran % (Auto) 0.3 % Neut % (Auto) 60.6 % Lymph % (Auto) 26.7 % [place] % (Auto) 10.8 % Eos % (Auto) 1.2 % Baso % (Auto) 0.4 % Neut # (Auto) 4.73 (1.40-6.50) K/uL Lymph # (Auto) 2.08 (1.20-3.40) K/uL [place] # (Auto) 0.84 H (0.11-0.59) K/uL Eos # (Auto) 0.09 (0.00-0.50) K/uL Baso # (Auto) 0.03 (0.00-0.20) K/uL Immature Gran # (Auto) 0.02 (0.01-0.20) K/uL PT 10.6 (9.0-12.0) Seconds INR 1.0 (0.9-1.1) APTT 25 (21-31) Seconds PTT Ratio 0.9 Sodium 145 (136-145) mmol/L Potassium 3.8 (3.5-5.1) mmol/L Chloride 112 H (98-107) mmol/L Carbon Dioxide 27 (21-32) mmol/L Anion Gap 6 (3-11) BUN 20 (6-23) mg/dl Creatinine 0.71 (0.6-1.4) mg/dl Est Cr Clr Drug Dosing 106.9 ml/min Est GFR ( Amer) 111.0 ml/min Est GFR (Non-Af Amer) 95.7 ml/min BUN/Creatinine Ratio 28.2 H (10-20) Glucose 93 (70-99(Fasting)) mg/dl Calcium 8.4 L (8.6-10.3) mg/dl Magnesium 0.9 L* (1.7-2.4) mg/dl Total Bilirubin 0.4 (0.2-1.0) mg/dl AST 70 H (13-39) U/L ALT 83 H (7-52) U/L Alkaline Phosphatase 105 H (34-104) U/L Troponin I High Sens 11.5 (0-20) pg/ml Total Protein 5.8 L (6.0-8.3) gm/dl Albumin 3.5 (3.4-5.0) gm/dl Globulin 2.3 L (2.5-4.0) gm/dl Albumin/Globulin Ratio 1.5 (0.9-2) Adenovirus (PCR) Not Detected (NotDetected) B. pertussis DNA (PCR) Not Detected (NotDetected) B.parapertussis DNA PCR Not Detected (NotDetected) C. pneumoniae DNA (PCR) Not Detected (NotDetected) Coronavirus OC43 (PCR) Not Detected (NotDetected) Coronavirus HKU1 (PCR) Not Detected (NotDetected) Coronavirus 229E (PCR) Not Detected (NotDetected) SARS-CoV-2 (PCR) DETECTED A (NotDetected) Coronavirus NL63 (PCR) Not Detected (NotDetected) Human Metapneumovir PCR Not Detected (NotDetected) Influenza Type A (PCR) Not Detected (NotDetected) Influenza Type B (PCR) Not Detected (NotDetected) M. pneumoniae (PCR) Not Detected (NotDetected) Parainfluenza 1 (PCR) Not Detected (NotDetected) Parainfluenza 2 (PCR) Not Detected (NotDetected) Parainfluenza 3 (PCR) Not Detected (NotDetected) Parainfluenza 4 (PCR) Not Detected (NotDetected) RSV (PCR) Not Detected (NotDetected) Entero/Rhino (PCR) Not Detected (NotDetected) Administered Medications Magnesium Sulfate/Dextrose (Magnesium Sulfate / D5w) 1 gm in 100 mls @ 100 mls/hr IV Q1H YUN Stop: 09/23/23 11:15 Last Admin: 09/23/23 10:46 Dose: 100 mls/hr Documented By: Infusion: 09/23/23 10:46 Dose: Infused Documented By: Infusion: 09/23/23 10:23 Dose: 100 mls/hr Documented By: Infusion: 09/23/23 10:02 Dose: 0 mls/hr Documented By: Admin: 09/23/23 09:28 Dose: 100 mls/hr Documented By: Sodium Chloride (Nss) 1,000 mls @ 100 mls/hr IV .Q10H YUN Stop: 09/23/23 20:29 Last Admin: 09/23/23 10:49 Dose: 100 mls/hr Documented By: CEF Discontinued Medications Albuterol (Albut/Ipratrop 3mg/0.5mg Neb 3 Ml Vial) 12 ml NEB ONE ONE; Protocol Stop: 09/23/23 08:11 Last Admin: 09/23/23 08:17 Dose: 12 ml Documented By: TC Ceftriaxone Sodium (Rocephin) 2,000 mg in 50 mls @ 100 mls/hr IV NOW STA Stop: 09/23/23 09:59 Last Infusion: 09/23/23 10:31 Dose: Infused Documented By: Admin: 09/23/23 10:01 Dose: 100 mls/hr Documented By: CEF Methylprednisolone (Methylprednisolone 125 Mg/2 Ml Vial) 80 mg IV NOW STA Stop: 09/23/23 08:11 Last Admin: 09/23/23 08:19 Dose: 80 mg Documented By: TC Imaging Data Radiologist's Impression: Chest X-Ray 09/23/23 08:02 XR chest 1V portable HISTORY: Dyspnea COMPARISON: Chest 08/02/2023. FINDINGS: No pneumothorax. The heart remains top normal in size. Chronic interstitial thickening again noted. Suture material within the left upper lobe. Postoperative changes within the shoulders. No acute fractures. Stable blunting of the left lateral costophrenic sulcus with left basilar scarlike densities. No new focal lung consolidations to suggest a pneumonia. No evidence for pulmonary edema. Calcifications within the aortic knob. IMPRESSION: No significant change compared to the prior study. No acute process. ACT 112: Negative or not required by law. Electronically signed by: Asim Peck M.D. 09/23/2023 8:29 AM Discharge Plan Visit Data Chief Complaint: Shortness of Breath/Dyspnea Stated Complaint: TROUBLE BREATHING, COUGH ED Provider: Wayne Patel Discharge Problem: SOB (shortness of breath), COPD exacerbation, COVID-19, Hypomagnesemia, Anemia Patient Disposition: Admitted As Inpatient Condition: Fair Forms Stand Alone Forms: [facility] Prescriptions Prescriptions: No Action (DME) CPAP Machine Misc See Rx Instructions .MEDSUPPLY Qty: 1 0RF Rx Instructions: CPAP with 7 cm H20 pressure. G47.33 (DME) CPAP Supplies Misc See Rx Instructions .MEDSUPPLY Qty: 1 0RF Rx Instructions: CPAP supplies, ResMed F20 mask, headgear, filters, tubing, water chamber. G47.33 albuterol sulfate 90 mcg/actuation HFA aerosol inhaler 2 puff INHALATION Q4H PRN (Reason: Shortness Of Breath Or Wheezing) Qty: 8.5 3RF pregabalin [Lyrica] 100 mg Capsule 100 mg PO BID meclizine 12.5 mg tablet 12.5 mg PO TID PRN (Reason: Dizziness) cyanocobalamin (vitamin B-12) [Vitamin B-12] 1,000 mcg Tablet 1,000 mcg PO QAM atorvastatin [Lipitor] 80 mg tablet 80 mg PO DAILY Qty: 30 0RF aspirin 81 mg Tablet,Delayed Release (Dr/Ec) 81 mg PO QAM Qty: 30 0RF ondansetron 8 mg Tablet,Disintegrating 8 mg PO Q8H PRN (Reason: Nausea) clobetasol 0.05 % Cream 1 applic TOPICAL BID PRN (Reason: Rash) triamcinolone acetonide 0.1 % Cream 1 applic TOPICAL BID PRN (Reason: Rash) levalbuterol HCl 1.25 mg/3 mL solution for nebulization 1.25 mg INHALATION Q4H PRN (Reason: Wheezing) pantoprazole [Protonix] 40 mg tablet,delayed release (DR/EC) 40 mg PO BID 30 Days Qty: 60 2RF Trelegy Ellipta 200-62.5-25 mcg blister with device 1 inh INHALATION DAILY escitalopram oxalate 10 mg tablet 10 mg PO DAILY diclofenac sodium [Voltaren Arthritis Pain] 1 % Gel 2 g EXT Q4H PRN (Reason: neck pain) Qty: 100 0RF baclofen 5 mg tablet 5 mg PO TID PRN (Reason: muscle spasms ) furosemide 40 mg tablet 40 mg PO QAM PRN (Reason: Fluid accumulation, weight gain) Rx Instructions: 40 mg po qam metoprolol tartrate 25 mg tablet 12.5 mg PO BID Qty: 30 0RF Referrals Referrals: Ajit Moreno MD [Primary Care Provider] - Discharge Problem: Anemia Qualifiers: Anemia type: unspecified type Qualified Code(s): D64.9 - Anemia, unspecified
[2023-09-23] MEDS: ALBUT/IPRATROP 3MG/0.5MG NEB 3 ML VIAL NEB ONE (08:17)
[2023-09-23] MEDS: methylPREDNISolone 125 MG/2 ML VIAL IV STA (08:19)
--- NOTE | 2023-09-23 08:31 | XRay Report ---
XR chest 1V portable HISTORY: Dyspnea COMPARISON: Chest 08/02/2023. FINDINGS: No pneumothorax. The heart remains top normal in size. Chronic interstitial thickening agai n noted. Suture material within the left upper lobe. Postoperative changes within the shoulders. No a cute fractures. Stable blunting of the left lateral costophrenic sulcus with left basilar scarlike de nsities. No new focal lung consolidations to suggest a pneumonia. No evidence for pulmonary edema. Ca lcifications within the aortic knob. IMPRESSION: No significant change compared to the prior study. No acute process. ACT 112: Negative or not required by law. Electronically signed by: Asim Peck M.D. 09/23/2023 8:29 AM
[2023-09-23 08:42] LABS: Basophils # (auto) 0.03 K/uL (0.00-0.20); Basophils % (auto) 0.4 %; Eosinophils # (auto) 0.09 K/uL (0.00-0.50); Eosinophils % (auto) 1.2 %; Hematocrit (blood only) 37.7 % (42.0-52.0); Hemoglobin 12.6 g/dl (14.0-18.0); Immature Granulocytes # (auto) 0.02 K/uL (0.01-0.20); Immature Granulocytes % (auto) 0.3 %; Lymphocytes # (auto) 2.08 K/uL (1.20-3.40); Lymphocytes % (auto) 26.7 %; Mean Corpuscular Hemoglobin 31.3 pg (25.0-34.0); Mean Corpuscular Hgb Conc 33.4 g/dL (32.0-36.0); Mean Corpuscular Volume 93.5 fL (80.0-100.0); Mean Platelet Volume 11.1 fL (9.4-12.4); Monocytes # (auto) 0.84 K/uL (0.11-0.59); Monocytes % (auto) 10.8 %; Neutrophils # (auto) 4.73 K/uL (1.40-6.50); Neutrophils % (auto) 60.6 %; Platelet Count 261 K/uL (130-400); RDW Coefficient of Variation 14.8 % (11.5-14.5); RDW Standard Deviation 51.6 fL (36.4-46.3); Red Blood Count 4.03 M/uL (4.70-6.10); White Blood Count 7.79 K/ul (4.8-10.8)
[2023-09-23 08:50] LABS: Partial Thromboplastin Ratio 0.9; Partial Thromboplastin Time 25 Seconds (21-31); Prothrombin Time 10.6 Seconds (9.0-12.0)
[2023-09-23 09:02] LABS: BUN Creatinine Ratio 28.2 (10-20); Calcium 8.4 mg/dl (8.6-10.3); Creatinine Clr Calc Pharmacy 106.9 ml/min; Est GFR (Non-African American) 95.7 ml/min; Potassium 3.8 mmol/L (3.5-5.1)
[2023-09-23 09:15] LABS: Albumin Globulin Ratio 1.5 (0.9-2); Albumin Level 3.5 gm/dl (3.4-5.0); Bilirubin,Total 0.4 mg/dl (0.2-1.0); Globulin 2.3 gm/dl (2.5-4.0); Magnesium 0.9 mg/dl (1.7-2.4); Total Protein 5.8 gm/dl (6.0-8.3)
[2023-09-23 09:24] LABS: Adenovirus PCR Not Detected (NotDetected); Bordetella parapertussis PCR Not Detected (NotDetected); Bordetella pertussis PCR Not Detected (NotDetected); Chlamydia pneumoniae PCR Not Detected (NotDetected); Coronavirus 229E PCR Not Detected (NotDetected); Coronavirus CoV-2 (COVID19)PCR DETECTED (NotDetected); Coronavirus HKU1 PCR Not Detected (NotDetected); Coronavirus NL63 PCR Not Detected (NotDetected); Coronavirus OC43PCR Not Detected (NotDetected); Human Metapneumovirus PCR Not Detected (NotDetected); Influenza A PCR Not Detected (NotDetected); Influenza B PCR Not Detected (NotDetected); Mycoplasma pneumoniae PCR Not Detected (NotDetected); Parainfluenza Virus 1 PCR Not Detected (NotDetected); Parainfluenza Virus 2 PCR Not Detected (NotDetected); Parainfluenza Virus 3 PCR Not Detected (NotDetected); Parainfluenza Virus 4 PCR Not Detected (NotDetected); Respiratory Syncytial VirusPCR Not Detected (NotDetected); Rhinovirus/Enterovirus PCR Not Detected (NotDetected)
[2023-09-23] MEDS: MAGNESIUM SULFATE / D5W 1 GM/100 ML BAG IV SCH ×2 (09:28→11:37)
[2023-09-23 09:48] LABS: Troponin I High Sensitivity 11.5 pg/ml (0-20)
[2023-09-23] MEDS: cefTRIAXone SODIUM 2,000 MG/50 ML BAG IV STA (10:01)
[2023-09-23] MEDS: SODIUM CHLORIDE 0.9% 1,000 ML IV SCH (10:49)
[2023-09-23] MEDS: ALBUT/IPRATROP 3MG/0.5MG NEB 3 ML VIAL NEB SCH (11:23)
--- NOTE | 2023-09-23 11:41 | History & Physical Report ---
<Statement entered by Manny Rothman, DO - 09/23/23 13:53> I have seen and examined the patient and have discussed the case with the provider above. I have reviewed the advanced practitioner's documentation, and I agree with, and take responsibility for that plan of care. 18 minutes spent in coronation care and evaluation patient Patient seen at the bedside while still in the ED. Patient reports some difficulty with end expiration with his breathing. Decreased breath sounds, wheezing 1-2+ pitting edema pretibially Patient high risk for severe COVID disease, treated with remdesivir Steroids dosed to treat exacerbation of COPD Patient does have some volume overload, reviewed previous echocardiogram normal ejection fraction. 1 dose of IV Lasix, continue to assess daily determine if patient needs additional Lasix Patient appears to have chronically elevated LFTs, minimally elevated, not contraindicated him getting remdesivir continue to monitor Additional plan of care as outlined below Date of Service September 23, 2023 Assessment & Plan (1) COVID-19: (2) COPD exacerbation: Plan: Admit to [facility] Patient presenting from home with reports of cough and shortness of breath x 3 days In the ED, patient tested positive for COVID-19. Patient was saturating well on room air however was placed on 2 L of oxygen via nasal cannula for comfort S/p IV Solu-Medrol in the ED, will continue with IV Decadron 6 mg BID starting tomorrow Will initiate remdesivir given high risk and COPD Mild lower extremity edema noted, will give Lasix 40mg IV x 1, reassess needs for additional doses daily (echo 02/2023 - EF 60-65%, no valvular disease) Pulmonary toilet with nebs, Mucinex, flutter valve, incentive spirometer (3) Hypomagnesemia: Plan: Mg+ 0.9 Replace, follow Likely secondary to diarrhea (4) Diarrhea: Plan: Patient reports ongoing diarrhea for the past 3 to 4 weeks Noted patient recently completed IV ceftriaxone for septic bursitis Check C. difficile (5) Elevated LFTs: Plan: AST 70, ALT 83, alk phos 105, T. 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 Rothman. I spent a total of 75 minutes coordinating, documenting, and providing care for this patient excluding time spent in the performance of separately billed services. This included personally reviewing all current laboratories and imaging studies, medication reconciliation, outpatient chart review, and discussion with specialists. History of Present Illness Chief Complaint: Shortness of breath, cough Primary Care Provider: Ajit Moreno MD 67-year-old male with PMH dyslipidemia, COPD, TAYLOR, GERD, chronic pain, and other problems listed below who presents to the ED for evaluation of shortness of breath and cough. History is obtained from the patient and review of PCP records. Patient states he started to get sick about 3 days ago. Reports worsening shortness of breath and cough. States he feels short of breath at rest and with minimal exertion. Has been using home nebulizer without improvement. Cough has been nonproductive. No fevers or chills. Patient reports ongoing diarrhea for the past 3 to 4 weeks. Noted the patient was on IV ceftriaxone for treatment of elbow septic bursitis. Denies chest pain. Has been having some episodes of lightheadedness and dizziness, denies syncopal event. No abdominal pain, nausea, vomiting. Denies urinary symptoms. In the ED, patient was maintaining saturations on room air however was placed on 2 L of oxygen via nasal cannula for comfort. Patient tested positive for COVID-19. Labs show magnesium 0.9. He was given nebulizer treatment, IV ceftriaxone, magnesium replacement, IV Solu-Medrol 80 mg. Allergies Allergy/AdvReac Type Severity Reaction Status Date / Time No Known Allergies Allergy Verified 06/16/23 07:11 Home Medications Medication Instructions Recorded Confirmed Type pregabalin 100 mg capsule (Lyrica) 100 mg PO BID 10/16/17 09/23/23 History meclizine 12.5 mg tablet 12.5 mg PO TID PRN Dizziness 06/28/21 09/23/23 History ondansetron 8 mg disintegrating 8 mg PO Q8H PRN Nausea 04/07/22 09/23/23 History tablet clobetasol 0.05 % topical cream 1 applic topical BID PRN Rash 12/29/22 09/23/23 History levalbuterol HCl 1.25 mg/3 mL 1.25 mg inhalation Q4H PRN Wheezing 12/29/22 09/23/23 History solution for nebulization triamcinolone acetonide 0.1 % 1 applic topical BID PRN Rash 12/29/22 09/23/23 History topical cream cyanocobalamin (vitamin B-12) 1,000 mcg PO QAM 03/08/23 09/23/23 History 1,000 mcg tablet (Vitamin B-12) aspirin 81 mg tablet,delayed 81 mg PO QAM #30 tabs 03/11/23 09/23/23 Rx release atorvastatin 80 mg tablet (Lipitor) 80 mg PO DAILY #30 tabs 03/11/23 09/23/23 Rx pantoprazole 40 mg tablet,delayed 40 mg PO BID 30 days #60 tabs 04/06/23 09/23/23 Rx release (Protonix) albuterol sulfate 90 mcg/actuation 2 puff inhalation Q4H PRN 04/26/23 09/23/23 Rx aerosol inhaler Shortness Of Breath Or Wheezing #8.5 grams escitalopram oxalate 10 mg tablet 10 mg PO DAILY 06/13/23 09/23/23 History fluticasone fur. 200 mcg-umeclid 1 inh inhalation DAILY 06/13/23 09/23/23 History 62.5 mcg-vilant 25 mcg inhalat.powder (Trelegy Ellipta) diclofenac sodium 1 % topical gel 2 g EXT Q4H PRN neck pain #100 06/16/23 09/23/23 Rx (Voltaren Arthritis Pain) grams CPAP Machine #1 ea 06/24/23 08/02/23 Rx CPAP Supplies #1 ea 06/24/23 08/02/23 Rx baclofen 5 mg tablet 5 mg PO TID PRN muscle spasms 08/02/23 09/23/23 History furosemide 40 mg tablet 40 mg PO QAM PRN Fluid 08/02/23 09/23/23 History accumulation, weight gain metoprolol tartrate 25 mg tablet 12.5 mg (1/2 x 25 mg) PO BID #30 08/09/23 09/23/23 Rx tabs Past Med/Surg History Problem List (Updated 09/23/23 @ 11:28 by NAPOLEON Powers) Diarrhea Hypomagnesemia (Acute) COVID-19 (Acute) COPD exacerbation (Acute) Type 2 diabetes mellitus Septic arthritis of elbow, right Elevated LFTs COPD (chronic obstructive pulmonary disease) (Acute) TAYLOR (obstructive sleep apnea) Cannot tolerate device Thrombus of aorta (Acute) Hypertension (Chronic) Tobacco abuse Obesity (Acute) Hypertrophy of nasal turbinates (Acute) Chronic sinusitis (Acute) Chronic post-thoracotomy pain (Acute) Cervical radiculopathy (Acute) Arthritis (Acute) Acquired deviated nasal septum (Acute) Nasal polyp Closed compression fracture of lumbar vertebra (Acute) Closed fracture of radial head (Acute) Compression fracture of L5 vertebra Pulmonary nodule seen on imaging study Multiple pulmonary nodules COPD with emphysema Chronic bronchitis Current smoker Post-nasal drip Chronic - stable Viral upper respiratory illness hx Anxiety (Chronic) HLD (hyperlipidemia) (Chronic) Thoracic spinal stenosis (Chronic) Diaphragmatic hernia (Chronic) GERD (gastroesophageal reflux disease) (Chronic) Well controlled and stable Neuropathy (Chronic) COPD, moderate (Chronic) Breathing stable Medical History (Updated 09/23/23 @ 11:28 by NAPOLEON Powers) Chronic respiratory failure On oxygen at night in the past - but no longer needs per patient Hx of migraines Sleep apnea No device History of COVID-19 2019, moderate symptoms > resolved 2020, mild symptoms > resolved Pneumothorax Hx- complication from pain injection- resolved Histoplasmosis 2002- treated Surgical History History of esophagogastroduodenoscopy (EGD) Hx of colonoscopy History of open reduction and internal fixation (ORIF) procedure right shoulder History of total replacement of left shoulder joint History of sinus surgery History of placement of chest tube History of hand surgery Left femoral shaft fracture Dutch placed H/O total hip arthroplasty left side H/O elbow surgery H/O exploratory thoracotomy "Left thoracotomy wedge biopsy of left upper lobe with excision of lesion or nodule & frozen section 2002" H/O hernia repair "[facility] incarcerated supraumbilical hernia repair open no mesh 02/17/01" Family History Father Heart disease Hypertension Brother Cancer Hypertension Stroke Heart disease Mother Cancer Other Leukemia No family history of bleeding disorder Non-Hodgkin lymphoma Denies family history of Hearing loss Asthma Social History Smoking Status: Current every day smoker Tobacco Type: Cigarettes Age Started Using Tobacco: 11; packs per day: 1; Cigarettes Per Day: 3/4 pack; Second Hand Exposure: No; Do You Dip or Chew Tobacco: No; Hx Alcohol Use: No Hx Substance Use: No Preferred Language: Indian Communication Ability: Effective It Audit Manager Required: No Beliefs That Will Affect Care: None marital status: Current Living Situation: Spouse current occupational status: unemployed Feels Safe at Home: Yes Safety Concerns: Feels Safe At This Time Assistive Devices: Oxygen - at Night and Other Review of Systems Review of Systems: ROS per HPI, all other systems reviewed and negative Physical Exam Constitutional: WD/WN, vitals as above Eyes: PERRL, conjunctivae normal, anicteric sclerae ENMT: external ear and nose normal, oropharynx normal Respiratory: Auscultation: + diminished lung sounds, + rhonchi and + wheezes ( Bilateral, expiratory and inspiratory) Cardiovascular: Rate/Rhythm: regular rate and regular rhythm Vessels: normal peripheral pulses Extremities: + edema ( trace edema BLE) Gastrointestinal (Abdomen): normal bowel sounds, soft, nontender, no hepatosplenomegaly Musculoskeletal: no cyanosis or clubbing, extremities motor strength 5/5 Skin: no rashes, warm and dry Neurologic: PERRL, EOMI, accommodation nl, no face palsy, no dysarthria Psychiatric: A+Ox3, euthymic affect Results & Data Results & Data Vital Signs (Past 12 Hours) Vital Signs Temp Pulse Pulse Resp BP BP Pulse Ox 09/23/23 11:29 83 19 111/57 L 98 09/23/23 11:23 94 H 22 93 09/23/23 09:30 91 H 24 144/69 H 97 09/23/23 09:27 36.6 C 09/23/23 09:00 73 17 139/68 100 09/23/23 08:30 63 22 97 09/23/23 08:30 117/89 09/23/23 08:15 09/23/23 08:05 66 09/23/23 08:04 09/23/23 08:02 98 09/23/23 07:54 36.7 C 70 24 150/82 H 97 O2 Del Method O2 Flow Rate 09/23/23 11:29 Nasal Cannula 2 09/23/23 11:23 Nasal Cannula 2 09/23/23 09:30 09/23/23 09:27 09/23/23 09:00 09/23/23 08:30 09/23/23 08:30 09/23/23 08:15 Nasal Cannula 2 09/23/23 08:05 09/23/23 08:04 Nasal Cannula 2 09/23/23 08:02 Nasal Cannula 2 09/23/23 07:54 Room Air Laboratory Results Short CBC 09/23/23 Range/Units 08:19 WBC 7.79 (4.8-10.8) K/ul Hgb 12.6 L (14.0-18.0) g/dl Hct 37.7 L (42.0-52.0) % Plt Count 261 (130-400) K/uL BMP 09/23/23 08:19 Sodium 145 Potassium 3.8 Chloride 112 H Carbon Dioxide 27 BUN 20 Creatinine 0.71 Glucose 93 Calcium 8.4 L Liver Function 09/23/23 Range/Units 08:19 Total Bilirubin 0.4 (0.2-1.0) mg/dl AST 70 H (13-39) U/L ALT 83 H (7-52) U/L Alkaline Phosphatase 105 H (34-104) U/L Albumin 3.5 (3.4-5.0) gm/dl Diagnostic Findings Chest X-Ray 09/23/23 08:02 XR chest 1V portable HISTORY: Dyspnea COMPARISON: Chest 08/02/2023. FINDINGS: No pneumothorax. The heart remains top normal in size. Chronic interstitial thickening again noted. Suture material within the left upper lobe. Postoperative changes within the shoulders. No acute fractures. Stable blunting of the left lateral costophrenic sulcus with left basilar scarlike densities. No new focal lung consolidations to suggest a pneumonia. No evidence for pulmonary edema. Calcifications within the aortic knob. IMPRESSION: No significant change compared to the prior study. No acute process. ACT 112: Negative or not required by law. Electronically signed by: Asim Peck M.D. 09/23/2023 8:29 AM Code Status & VTE Plan VTE Prophylaxis Plan VTE Prophylaxis will be ordered: Yes
[2023-09-23] MEDS: REMDESIVIR 200 MG in SODIUM CHLORIDE 0.9% 210 ML IV STA (12:31)
[2023-09-23] MEDS: FUROSEMIDE 40 MG/4 ML VIAL IV ONE (14:46)
[2023-09-23] MEDS: ENOXAPARIN INJ 40 MG/0.4 ML SYR SQ SCH (14:46)
--- NOTE | 2023-09-23 15:29 | Electrocardiogram Report ---
Test Reason : Blood Pressure : */* mmHG Vent. Rate : 60 BPM Atrial Rate : 60 BPM P-R Int : 164 ms QRS Dur : 84 ms QT Int : 422 ms P-R-T Axes : 68 21 0 degrees QTcB Int : 422 ms Normal sinus rhythm with sinus arrhythmia Normal ECG When compared with ECG of 02-Aug-2023 09:39, No significant change was found Confirmed by José Luis Rios ([id number]) on 09/23/2023 3:28:53 PM Referred By: Confirmed By: José Luis Rios
--- NOTE | 2023-09-23 16:48 | Ultrasound Report ---
US liver CLINICAL HISTORY: elevated LFTs COMPARISON STUDY: CTA of the abdomen and pelvis April 04, 2023. Right upper quadrant ultrasound J une 2020. FINDINGS: There are no hepatic lesions. Hepatic echogenicity is at the upper limits of normal. The ma in portal vein is patent with appropriately directed flow. Trace sludge within the gallbladder is pre sent. There are no gallstones. There is no gallbladder wall thickening. No sonographic Harrell sign wa s elicited. There is no biliary ductal dilatation. The common bile duct measures 4 mm in caliber. The re is no right hydronephrosis. A 1.2 cm right renal cyst is incidentally noted. The pancreas is obscu red by overlying bowel gas. IMPRESSION: 1. No gallstones or biliary ductal dilatation. 2. No hepatic lesions. 3. Pancreas obscured by bowel gas. ACT 112: Negative or not required by law. Electronically signed by: Jose A Hernandez M.D. 09/23/2023 4:45 PM
[2023-09-23] MEDS: guaiFENesin 600 MG TABCR PO SCH (20:37)
[2023-09-23] MEDS: PANTOprazole 40 MG TAB PO SCH (20:38)
[2023-09-23] MEDS: METOPROLOL TARTRATE 25 MG TAB PO SCH (20:38)
[2023-09-23] MEDS: PREGABALIN 100 MG CAP PO SCH (20:40)
[2023-09-23] MEDS: dexAMETHasone 6 MG in SYRINGE 0 ML IV SCH (20:41)
[2023-09-24 07:25] LABS: Hemoglobin 11.7 g/dl (14.0-18.0); Mean Corpuscular Hemoglobin 30.6 pg (25.0-34.0); Mean Corpuscular Hgb Conc 33.4 g/dL (32.0-36.0); Mean Corpuscular Volume 91.6 fL (80.0-100.0); Mean Platelet Volume 11.6 fL (9.4-12.4); Platelet Count 255 K/uL (130-400); RDW Standard Deviation 50.3 fL (36.4-46.3); Red Blood Count 3.82 M/uL (4.70-6.10)
--- NOTE | 2023-09-24 07:49 | Hospitalist Progress Note ---
Date of Service September 24, 2023 Assessment & Plan (1) COVID-19: (2) COPD exacerbation: (3) Hypomagnesemia: (4) Diarrhea: (5) Elevated LFTs: (6) Hypertension: (7) GERD (gastroesophageal reflux disease): (8) HLD (hyperlipidemia): (9) Anxiety: Plan Mr. Franks is a 67-year-old male with PMH dyslipidemia, COPD, TALYOR, GERD, chronic pain, and other problems listed below who presented to the ED for evaluation of shortness of breath and cough and found to have acute hypoxic resp failure iso COPD exacerbation and COVID #acute hypoxic respiratory failure #COVID-19 infection #COPD exacerbation: Admit to [facility] Patient presenting from home with reports of cough and shortness of breath x 3 days In the ED, patient tested positive for COVID-19. Patient was saturating well on room air however was placed on 2 L of oxygen via nasal cannula for comfort S/p IV Solu-Medrol in the ED, s/p IV decadron 6mg this am -Transition to PO decadron tomorrow 6mg for total 8 more days Continue remdesivir given high risk and COPD Mild lower extremity edema noted, will give Lasix 40mg IV x 1, reassess needs for additional doses daily (echo 02/2023 - EF 60-65%, no valvular disease) Pulmonary toilet with nebs, Mucinex, flutter valve, incentive spirometer Add azithromycin x 3 days continue inhalers #lower extremity edema at home takes lasix prn notes intermittent worsening add on BNP--if elevated will obtain echo #Hypomagnesemia: Mg+ 0.9, 1.3 Likely secondary to diarrhea Replace IV now #Diarrhea: Patient reports ongoing diarrhea for the past 3 to 4 weeks Noted patient recently completed IV ceftriaxone for septic bursitis Check C. difficile when able #Elevated LFTs AST 70, ALT 83, alk phos 105, T. 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 FLORIST HELPER metoprolol #GERD (gastroesophageal reflux disease): chronic, stable Continue PPI #HLD (hyperlipidemia): chronic, stable Continue statin #Anxiety: chronic, stable Continue home meds DVT PROPHYLAXIS SQ Lovenox Admission and Anticipated Discharge Date Admission Date: September 23, 2023 Subjective NAEO Reports subjective improvement overall Off oxygen this am, but YAO when walking to bathroom Endorses some improvement in cough Notes no episode of diarrhea today States right elbow is bothersome, however, improving with no new concerns at that prior surgical site Physical Exam Constitutional: WD/WN, vitals as above Respiratory: cough with deep inhalation, +rhochi Cardiovascular: RRR no murmur trace pedal edema Results & Data Results & Data Vital Signs (Past 12 Hours) Vital Signs Temp Pulse Pulse Resp BP Pulse Ox O2 Del Method 09/24/23 07:35 82 16 96 Nasal Cannula 09/24/23 06:55 37.2 C 88 16 123/68 96 Nasal Cannula 09/24/23 04:16 76 18 95 Nasal Cannula 09/23/23 22:47 81 18 95 Nasal Cannula 09/23/23 20:35 Nasal Cannula 09/23/23 20:31 36.6 C 78 16 114/63 96 Nasal Cannula 09/23/23 19:54 78 18 94 Room Air O2 Flow Rate 09/24/23 07:35 2 09/24/23 06:55 2 09/24/23 04:16 2 09/23/23 22:47 2 09/23/23 20:35 2 09/23/23 20:31 2 09/23/23 19:54 Laboratory Results Short CBC 09/24/23 Range/Units 06:38 WBC 8.60 (4.8-10.8) K/ul Hgb 11.7 L (14.0-18.0) g/dl Hct 35.0 L (42.0-52.0) % Plt Count 255 (130-400) K/uL Liver Function 09/24/23 Range/Units 06:38 AST 41 H (13-39) U/L ALT 63 H (7-52) U/L Medications Administered Home Medications Medication Instructions Recorded Confirmed Last Taken pregabalin 100 mg capsule (Lyrica) 100 mg PO BID 10/16/17 09/23/23 06/12/23 meclizine 12.5 mg tablet 12.5 mg PO TID PRN Dizziness 06/28/21 09/23/23 Unknown ondansetron 8 mg disintegrating 8 mg PO Q8H PRN Nausea 04/07/22 09/23/23 06/12/23 tablet clobetasol 0.05 % topical cream 1 applic topical BID PRN Rash 12/29/22 09/23/23 Unknown levalbuterol HCl 1.25 mg/3 mL 1.25 mg inhalation Q4H PRN Wheezing 12/29/22 09/23/23 Unknown solution for nebulization triamcinolone acetonide 0.1 % 1 applic topical BID PRN Rash 12/29/22 09/23/23 Unknown topical cream cyanocobalamin (vitamin B-12) 1,000 mcg PO QAM 03/08/23 09/23/23 06/12/23 1,000 mcg tablet (Vitamin B-12) aspirin 81 mg tablet,delayed 81 mg PO QAM #30 tabs 03/11/23 09/23/23 06/12/23 release atorvastatin 80 mg tablet (Lipitor) 80 mg PO DAILY #30 tabs 03/11/23 09/23/23 06/12/23 pantoprazole 40 mg tablet,delayed 40 mg PO BID 30 days #60 tabs 04/06/23 09/23/23 06/12/23 release (Protonix) albuterol sulfate 90 mcg/actuation 2 puff inhalation Q4H PRN 04/26/23 09/23/23 Unknown aerosol inhaler Shortness Of Breath Or Wheezing #8.5 grams escitalopram oxalate 10 mg tablet 10 mg PO DAILY 06/13/23 09/23/23 Unknown fluticasone fur. 200 mcg-umeclid 1 inh inhalation DAILY 06/13/23 09/23/23 06/12/23 62.5 mcg-vilant 25 mcg inhalat.powder (Trelegy Ellipta) diclofenac sodium 1 % topical gel 2 g EXT Q4H PRN neck pain #100 06/16/23 09/23/23 Unknown (Voltaren Arthritis Pain) grams CPAP Machine #1 ea 06/24/23 08/02/23 Unknown CPAP Supplies #1 ea 06/24/23 08/02/23 Unknown baclofen 5 mg tablet 5 mg PO TID PRN muscle spasms 08/02/23 09/23/23 Unknown furosemide 40 mg tablet 40 mg PO QAM PRN Fluid 08/02/23 09/23/23 Unknown accumulation, weight gain metoprolol tartrate 25 mg tablet 12.5 mg (1/2 x 25 mg) PO BID #30 08/09/23 09/23/23 Unknown tabs Active Medications Generic Name Dose Route Start Last Admin Trade Name Kelsie PRN Reason Stop Dose Admin Albuterol 3 ml 09/23/23 11:00 09/24/23 07:35 Albut/Ipratrop 3mg/0.5mg Neb 3 Ml Vial NEB 10/23/23 10:59 3 ml Q4R YUN Administration Protocol Aspirin 81 mg 09/24/23 09:00 09/24/23 08:30 Aspirin 81 Mg Ectab PO 10/24/23 08:59 81 mg QAM YUN Administration Atorvastatin Calcium 80 mg 09/24/23 09:00 09/24/23 08:32 Atorvastatin 40 Mg Tab PO 10/24/23 08:59 80 mg DAILY YUN Administration Cyanocobalamin 1,000 mcg 09/24/23 09:00 09/24/23 08:32 Cyanocobalamin (B-12) 500 Mcg Tablet PO 10/24/23 08:59 1,000 mcg QAM YUN Administration Enoxaparin Sodium 40 mg 09/23/23 12:30 09/23/23 14:46 Enoxaparin Inj 40 Mg/0.4 Ml Syr SQ 10/23/23 12:29 40 mg Q24H YUN Administration Escitalopram Oxalate 10 mg 09/24/23 09:00 09/24/23 08:32 Escitalopram Oxalate 10 Mg Tab PO 10/24/23 08:59 10 mg DAILY YUN Administration Fluticasone Furoate 1 puffs 09/24/23 09:00 09/24/23 08:33 Fluticasone Furoate 200mcg 14 Puffs/Inhaler INH 10/24/23 08:59 1 puffs DAILY YUN Administration Guaifenesin 1,200 mg 09/23/23 21:00 09/24/23 08:32 Guaifenesin 600 Mg Tabcr PO 10/23/23 20:59 1,200 mg Q12 YUN Administration Metoprolol Tartrate 12.5 mg 09/23/23 21:00 09/24/23 08:30 Metoprolol Tartrate 25 Mg Tab PO 10/23/23 20:59 12.5 mg BID YUN Administration Pantoprazole Sodium 40 mg 09/23/23 21:00 09/24/23 08:32 Pantoprazole 40 Mg Tab PO 10/23/23 20:59 40 mg BID YUN Administration Pregabalin 100 mg 09/23/23 21:00 09/24/23 08:30 Pregabalin 100 Mg Cap PO 10/23/23 20:59 100 mg BID YUN Administration Umeclidinium/Vilanterol 1 puffs 09/24/23 09:00 09/24/23 08:33 Umeclidinium/Vilanterol 62.5/25mcg 7 Puffs/Inhaler INH 10/24/23 08:59 1 puffs DAILY YUN Administration
[2023-09-24 07:55] LABS: Magnesium 1.4 mg/dl (1.7-2.4)
[2023-09-24] MEDS: ASPIRIN 81 MG ECTAB PO SCH (08:30)
[2023-09-24] MEDS: ESCITALOPRAM OXALATE 10 MG TAB PO SCH (08:32)
[2023-09-24] MEDS: ATORVASTATIN 40 MG TAB PO SCH (08:32)
[2023-09-24] MEDS: CYANOCOBALAMIN (B-12) 500 MCG TABLET PO SCH (08:32)
[2023-09-24] MEDS: FLUTICASONE FUROATE 200MCG 14 PUFFS/INHALER INH SCH (08:33)
[2023-09-24] MEDS: UMECLIDINIUM/VILANTEROL 62.5/25MCG 7 PUFFS/INHALER INH SCH (08:33)
[2023-09-24] MEDS: MAGNESIUM SULFATE / D5W 1 GM/100 ML BAG IV SCH (11:28)
[2023-09-24] MEDS: REMDESIVIR 100 MG in SODIUM CHLORIDE 0.9% 230 ML IV SCH (11:28)
[2023-09-24] MEDS: FUROSEMIDE 40 MG TAB PO SCH (11:30)
[2023-09-24] MEDS: AZITHROMYCIN 250 MG TAB PO SCH (11:31)
[2023-09-24 11:59] LABS: BUN Creatinine Ratio 24.7 (10-20); Calcium 8.3 mg/dl (8.6-10.3); Creatinine Clr Calc Pharmacy 98.6 ml/min; Est GFR (African American) 107.3 ml/min; Est GFR (Non-African American) 92.6 ml/min; Potassium 3.5 mmol/L (3.5-5.1)
[2023-09-24] MEDS: ACETAMINOPHEN 325 MG TAB PO PRN (20:08)
[2023-09-25 06:29] LABS: Hematocrit (blood only) 34.9 % (42.0-52.0); Hemoglobin 12.1 g/dl (14.0-18.0); Mean Corpuscular Hemoglobin 30.9 pg (25.0-34.0); Mean Corpuscular Hgb Conc 34.7 g/dL (32.0-36.0); Mean Corpuscular Volume 89.3 fL (80.0-100.0); Mean Platelet Volume 11.3 fL (9.4-12.4); Platelet Count 248 K/uL (130-400); RDW Coefficient of Variation 14.9 % (11.5-14.5); RDW Standard Deviation 48.4 fL (36.4-46.3); Red Blood Count 3.91 M/uL (4.70-6.10)
[2023-09-25 06:46] LABS: BUN Creatinine Ratio 28.4 (10-20); Calcium 8.5 mg/dl (8.6-10.3); Creatinine Clr Calc Pharmacy 102.6 ml/min; Est GFR (African American) 109.1 ml/min; Est GFR (Non-African American) 94.1 ml/min; Magnesium 2.1 mg/dl (1.7-2.4); Potassium 4.1 mmol/L (3.5-5.1)
[2023-09-25 07:53] VITALS: RESP 18
[2023-09-25 08:07] VITALS: BP 123/73; TEMP 97.5
[2023-09-25 10:14] VITALS: O2SAT 92
[2023-09-25] MEDS: dexAMETHasone 1 MG TAB PO SCH (10:44)
[2023-09-25 11:55] VITALS: PULSE 75
--- NOTE | 2023-09-25 13:58 | Discharge Summary ---
Discharge Summary Date of Service September 25, 2023 Principal Dx & Hospital Course #1 = Principal Diagnosis (1) COVID-19: (2) COPD exacerbation: (3) Hypomagnesemia: (4) Diarrhea: (5) Elevated LFTs: (6) Hypertension: (7) GERD (gastroesophageal reflux disease): (8) HLD (hyperlipidemia): (9) Anxiety: Plan Mr. Franks is a 67-year-old male with PMH dyslipidemia, COPD, TAYLOR, GERD, chronic pain, and other problems listed below who presented to the ED for evaluation of shortness of breath and cough and found to have acute hypoxic resp failure iso COPD exacerbation and COVID Patient with notable improvement on steroids and resumption of home lasix. Patient completed 2 step without O2 requirement. Patient reports feeling well enough for discharge. Discussed pursuing OP ECHO. Patient verbalized understanding. #acute hypoxic respiratory failure #COVID-19 infection #COPD exacerbation: Admit to [facility] Patient presenting from home with reports of cough and shortness of breath x 3 days In the ED, patient tested positive for COVID-19. Patient was saturating well on room air however was placed on 2 L of oxygen via nasal cannula for comfort S/p IV Solu-Medrol in the ED, s/p IV decadron 6mg this am -complete PO decadron 7 more days on d/c Completed 3 days of remdesivir discharged with 1 more dose of azithromycin Resume home inhalers 2 step without o2 need #lower extremity edema at home takes lasix prn notes intermittent worsening Elevated BNP at 201, responded well with IV lasix and resumption of PO daily Plan for OP ECHO #Hypomagnesemia: Mg+ 0.9, 1.3 Likely secondary to diarrhea resolved #Diarrhea: Patient reports ongoing diarrhea for the past 3 to 4 weeks Noted patient recently completed IV ceftriaxone for septic bursitis resolved #Elevated LFTs AST 70, ALT 83, alk phos 105, T. bili 0.4 Appears that patient has had mild LFT elevation since August RUQ WNL improved #Hypertension: chronic, stable Continue REGULATORY LEAD metoprolol #GERD (gastroesophageal reflux disease): chronic, stable Continue PPI #HLD (hyperlipidemia): chronic, stable Continue statin #Anxiety: chronic, stable Continue home meds Notes For Next Care Provider OP ECHO recommended Medication Changes From Visit Dexamethasone 6 mg daily for 7 more days 500mg Azithromycin x 1 tomorrow Lasix daily Admission HPI Per Admitting Provider 67-year-old male with PMH dyslipidemia, COPD, TAYLOR, GERD, chronic pain, and other problems listed below who presents to the ED for evaluation of shortness of breath and cough. History is obtained from the patient and review of PCP records. Patient states he started to get sick about 3 days ago. Reports worsening shortness of breath and cough. States he feels short of breath at rest and with minimal exertion. Has been using home nebulizer without improvement. Cough has been nonproductive. No fevers or chills. Patient reports ongoing diarrhea for the past 3 to 4 weeks. Noted the patient was on IV ceftriaxone for treatment of elbow septic bursitis. Denies chest pain. Has been having some episodes of lightheadedness and dizziness, denies syncopal event. No abdominal pain, nausea, vomiting. Denies urinary symptoms. In the ED, patient was maintaining saturations on room air however was placed on 2 L of oxygen via nasal cannula for comfort. Patient tested positive for COVID-19. Labs show magnesium 0.9. He was given nebulizer treatment, IV ceftriaxone, magnesium replacement, IV Solu-Medrol 80 mg. Admission Exam Per Admitting Provider Constitutional: WD/WN, vitals as above Eyes: PERRL, conjunctivae normal, anicteric sclerae ENMT: external ear and nose normal, oropharynx normal Respiratory: Auscultation: + diminished lung sounds, + rhonchi and + wheezes ( Bilateral, expiratory and inspiratory) Cardiovascular: Rate/Rhythm: regular rate and regular rhythm Vessels: normal peripheral pulses Extremities: + edema ( trace edema BLE) Gastrointestinal (Abdomen): normal bowel sounds, soft, nontender, no hepatosplenomegaly Musculoskeletal: no cyanosis or clubbing, extremities motor strength 5/5 Skin: no rashes, warm and dry Neurologic: PERRL, EOMI, accommodation nl, no face palsy, no dysarthria Psychiatric: A+Ox3, euthymic affect Discharge Exam Constitutional WD/WN, vitals as above Respiratory normal respiratory effort, lungs clear to auscultation Cardiovascular RRR, no murmur, no edema Gastrointestinal (Abdomen) normal bowel sounds, soft, nontender, no hepatosplenomegaly Neurologic PERRL, EOMI, accommodation nl, no face palsy, no dysarthria Updated Medication List Medication Instructions Recorded Confirmed Type pregabalin 100 mg capsule (Lyrica) 100 mg PO BID 10/16/17 09/23/23 History meclizine 12.5 mg tablet 12.5 mg PO TID PRN Dizziness 06/28/21 09/23/23 History ondansetron 8 mg disintegrating 8 mg PO Q8H PRN Nausea 04/07/22 09/23/23 History tablet clobetasol 0.05 % topical cream 1 applic topical BID PRN Rash 12/29/22 09/23/23 History levalbuterol HCl 1.25 mg/3 mL 1.25 mg inhalation Q4H PRN Wheezing 12/29/22 09/23/23 History solution for nebulization triamcinolone acetonide 0.1 % 1 applic topical BID PRN Rash 12/29/22 09/23/23 History topical cream cyanocobalamin (vitamin B-12) 1,000 mcg PO QAM 03/08/23 09/23/23 History 1,000 mcg tablet (Vitamin B-12) aspirin 81 mg tablet,delayed 81 mg PO QAM #30 tabs 03/11/23 09/23/23 Rx release atorvastatin 80 mg tablet (Lipitor) 80 mg PO DAILY #30 tabs 03/11/23 09/23/23 Rx pantoprazole 40 mg tablet,delayed 40 mg PO BID 30 days #60 tabs 04/06/23 09/23/23 Rx release (Protonix) albuterol sulfate 90 mcg/actuation 2 puff inhalation Q4H PRN 04/26/23 09/23/23 Rx aerosol inhaler Shortness Of Breath Or Wheezing #8.5 grams escitalopram oxalate 10 mg tablet 10 mg PO DAILY 06/13/23 09/23/23 History fluticasone fur. 200 mcg-umeclid 1 inh inhalation DAILY 06/13/23 09/23/23 History 62.5 mcg-vilant 25 mcg inhalat.powder (Trelegy Ellipta) diclofenac sodium 1 % topical gel 2 g EXT Q4H PRN neck pain #100 06/16/23 09/23/23 Rx (Voltaren Arthritis Pain) grams CPAP Machine #1 ea 06/24/23 08/02/23 Rx CPAP Supplies #1 ea 06/24/23 08/02/23 Rx baclofen 5 mg tablet 5 mg PO TID PRN muscle spasms 08/02/23 09/23/23 History metoprolol tartrate 25 mg tablet 12.5 mg (1/2 x 25 mg) PO BID #30 08/09/23 09/23/23 Rx tabs azithromycin 250 mg tablet 500 mg (2 x 250 mg) PO QAM #2 tabs 09/25/23 Rx dexamethasone 1 mg tablet 6 mg (6 x 1 mg) PO DAILY #7 tabs 09/25/23 Rx furosemide 40 mg tablet 40 mg PO QAM Fluid accumulation, 09/25/23 Rx weight gain #30 tabs Hospital Stay Data Consultations 09/23/23 09:47 ED Decision to Admit Stat Diagnostic Imagining Performed 09/23/23 13:40 US RUQ [US liver] Routine Pending Results Patient Have Any Pending Studies at Discharge: No Discharge Instructions Given to Patient (Per Discharging Provider) You were admitted for shortness of breath and found to have COVID and COPD exacerbation You we were treated with three days of remdesivir You were started on steriods and a short course of antibiotics You have one more dose of Azithromycin 500mg tomorrow morning 09/25 You have 7 more days of Dexamethasone 6mg daily, starting tomorrow morning. Please take lasix daily while on steroids and follow up with your PCP for further evaluation of leg swelling and need for daily lasix. Total Time Total Time Spent Total Time Spent (In Minutes): 45
== END 2023-09-25 12:29 | disposition home or self-care (01) | DRG 177 ==
LOC: ED 07:51 → 3N 10:00 → SUATTDRO 10:00 → 3N 11:32

== ENCOUNTER 2023-10-09 22:27 | Inpatient (IN) ==
--- OUTSIDE RECORDS SUMMARY | 2023-10-09 22:33 | External Medical Summary | Summary of Care ---
Author Name Unknown Organization [facility] Address [address] [place] [address] Phone [phone] Care Team Providers Care Retort Pre Cooker Name Role Phone Ajit Moreno MD Primary Care Provider [phone] Reason for Visit * Reason Comments [facility]: Maintenance Encounter Details Date Type Department Care Team (Late st Contact Info) Description 09/14/2023 4:00 PM EDT Home Visit [facility], [facility] [address] [place] [address] Rosa Parra RN [address] [facility] [place] [address] Allergies Active Allergy Reactions Criticality Noted Date Comments Fluticasone High 02/27/2020 Other reaction(s): lightheadedness and nausea Umeclidinium High 02/27/2020 Other reaction(s): lightheadedness and nausea Vilanterol High 02/27/2020 Other reaction(s): lightheadedness and nausea documented as of this encounter (statuses as of 10/08/2023) Medications Medication Sig Dispensed Refills Start Date End Date Status Clobetasol Propionate 0.05 % External Ointment (Temovate)Indicati ons:Stasis dermatitis of both legs Apply 2x daily to rash on legs until resolved, then as needed when flaring 60 g 08/27/2021 Active Furosemide 40 MG Oral Tablet (Lasix)Indications :Bilateral lower extremity edema Take 1 Tablet by mouth in the morning. for fluid accumulation or weight gain. 20 Tablet 06/13/2023 Active Additional Information Patient taking differently:40 mg OralDAILY PRN, Other, wt gain or edema, for fluid accumulation or weight gain, Reported on 06/23/2023 documented as of this encounter (statuses as of 10/08/2023) Active Problems Problem Noted Date Diagnosed Date Severe obesity (BMI 35.0-39.9) with comorbidity 05/27/2023 Food insecurity 05/16/2023 Overview: Per [facility] Protocol Personal history of other venous thrombosis and embolism 03/21/2023 Overview: historical Dyslipidemia, goal LDL below 70 06/01/2022 Adjustment disorder with depressed mood 06/02/19 Last Assessment & Plan: Mood stable today [...] Classes - YA Class D - Inhaled [id number] Combination Inhaler (Trellegy) Remote Patient Monitoring Vendor: [...] as of this encounter (statuses as of 10/08/2023) Resolved Problems Problem Noted Date Diagnosed Date [...] LUNG, NOT ELSEWHERE CLASSIFIED 06/12/2002 09/14/2018 CHEST [id number] 04/09/200209/2018 ABN FD-INTRATHOR ORG NEC-akbar nodule 03/06/2002 [...] as of this encounter (statuses as of 10/08/2023) Immunizations Name Administration Dates Next Due COVID-19 mRNA, LNP-s, No Pre serve, 2-Dose Series (JEDI MIND) 05/22/2020,05/01/2020 Seasonal Influenza, PF, 6 M & above, IM , (FluLaval or Fluzone) 10/26/2019,12/22/2018,12/28/2017 Seasonal Influenza, Quadriva lent Hd (Fluzone Hd) 01/08/2022 documented as of this encounter Social History Tobacco Use Types Packs/Day Years Used Date Smoking Tobacco: Every Day Cigarettes 0.5 45.5 Started: 03/19/2003 Passive Smoke Exposure: Past Smokeless [...] Sign Reading Time Taken Comments Blood Pressure 108/62 09/14/2023 2:21 PM EDT Pulse 88 09/14/2023 2:21 PM EDT Temperature 36.3 C (97.4 F) 09/14/2023 2:21 PM ED T Respiratory Rate 18 09/14/2023 2:21 PM EDT Oxygen Saturation 97% 09/14/2023 2:21 PM EDT Inhaled Oxygen Concentration - - Weight - - Height - - Body Mass Index - - documented in this encounter Progress Notes * Rosa Parra RN - 09/14/2023 2:05 PM EDT [facility] Public Relations Writer Visit Date: 09/14/2023 Time: 2:05 PM Name: Florentin Franks : 1955 Current Concerns: Pt seen for return RNCM visit He has completed IV abx therapy for right elbow and PICC line has been removed by HH - HH has discharged Pt reports he continues to have pain of the elbow and feels it is getting worse - rates pain 4/10 at this time States it sometimes gets up to 7/10 Pain is worse with bending and also sometimes radiates to upper forearm He does not take anything for pain, reports he just "rubs" the area Occasionally takes tylenol No redness or edema noted, no warmth Incision of the elbow is healed Dr. Willis is ortho surgeon-Telephone call placed to let him know of complaint They are willing to see him on Tuesday, pt is aware Pt reports he continues to have loose stools but they have improved from 6 stools a day to 2 stoolsa day He does have a imodium and was taking them but states when he takes them he can't go at all. He denies abdominal pain and states the nausea has resolved Denies any increased SOB from baseline No increased edema or abd bloating No worsening cough Physical Exam: BP 108/62 | Pulse 88 | Temp 36.3 C (97.4 F) | Resp 18 | SpO2 97% Pain 4 Physical Exam Constitutional: General: He is not in acute distress. Cardiovascular: Rate and Rhythm: Normal rate and regular rhythm. Pulses: Normal pulses. Heart sounds: Normal heart sounds. Pulmonary: Effort: Pulmonary effort is normal. Breath sounds: Wheezing (left lobes) present. Abdominal: Palpations: Abdomen is soft. Musculoskeletal: Right lower leg: Edema (trace) present. Left lower leg: Edema (trace) present. Skin: General: Skin is warm and dry. Neurological: Mental Status: He is alert and oriented to person, place, and time. Problems/Symptoms: Review of Systems Constitutional: Negative. HENT: Negative. Eyes: Negative. Respiratory: Positive for cough (chronic, smokes, at baseline) and shortness of breath (YAO- at baseline). Cardiovascular: Positive for leg swelling. Gastrointestinal: Negative. Genitourinary: Negative. Musculoskeletal: Positive for arthralgias. Skin: Negative. Neurological: Negative. Hematological: Negative. Psychiatric/Behavioral: Negative. Medication Reconciliation: (See medication list) Does patient take medications as ordered: Yes Patient Well Being: PHQ2/9: No questionnaires available. No change in living situation Denies falls [facility]-10 Completed this Visit: No. Routine visit and No falls since last visit Advanced Care Planning: No documentation, working on living will with , has not completed yet. Reinforcement/Education: COPD: Pt instructed to: -Call with increased SOB, wheezing, chest tightness, increased cough, increased sputum with change in color or consistency and fever. -Wash hands often -Drink plenty of fluids -Use inhalers as directed, do not stop or skip doses -Avoid stress -Rest when tired or SOB -Avoid triggers -Clean inhalers once a week Reinforced safety education and fall prevention. and Reinforced medication regimen. Timing., Dosing., and Purspose. Treatment/Plan: Continue meds as prescribed/reviewed Use nebulizer every 4 hours as needed Rescue kit on hand for prn use Keep all appts as scheduled and attend Business Intelligence Developer is [facility]ATH[facility]-Dr Irwin- next appt 10/31/23 F/u with ortho next week Home Interventions Provided: Home Intervention: Other; eval Consulted PCP/Specialist Reinforced current Plan of Care, including self-management and medication regimen Patient's 'Red Flags': Worsening SOB - short winded Chest gets tight Dark colored mucus Patient Needs to Remember: Call [facility] at with any new or worsening health concerns or problems, red flag symptoms. Referrals Needed: Other none Follow Up: Is there cellular connectivity/connectivity in the home? Yes Does the patient have internet in the home? Yes Patient encouraged to call the intake phone number for all urgent but not emergent issues. Is the patient new to [facility] within the last 30 days? No, Assess appropriateness for upcoming telehealth visits. Cancel telehealth visits & schedule home visit with care donor services team leader(s)as indicated. Provider is in agreement with Plan of Care: Yes Scheduled to follow up with patient in 3 weeks. Rosa Parra RN 09/14/2023 2:05 PM documented in this encounter Plan of Treatment Upcoming Encounters Date Type Department Care Team (Late st Contact Info) Description 10/11/2023 8:00 AM EDT PulmDiagnostic Pulmonary Function Lab, [facility] [address] [place] [address] [place], [address] [place] [address] 10/21/2023 2:30 PM EDT [facility] [address] [place] [address] Rosa Parra RN [address] [place] [address] Scheduled Procedures Name Priority Associated Diagnoses Date/Ti me COLONOSCOPY FLEXIBLE PROXIMAL DIAGNOSTIC Recall History of colon polyps Health Maintenance Due Date Last Done Comments DISCUSS TOBACCO CESSATION (REFER TO SMARTSET #8585) 1955 Alpha-1 Antitrypsin 12/04/1971 Cologuard 1998 Fecal Occult Blood Test 1998 Sigmoidoscopy 1998 *ADVANCE DIRECTIVE NOT ON FILE 07/22/2018 *BISPHONATE OR OTHER ACCEPTABLE MEDICATION NEEDED FOR OSTEOPOROSIS (REFER TO SMARTSET #0776) 06/29/2022 COVID-19 Vaccine ( season) 2022 05/22/2020, 05/01/2020 Adult Wellness Visit 03/11/2023 03/11/2022, 08/31/2021, 08/26/2020 Influenza Vaccine (FLU shot) (#1) 2023 01/08/2022, 10/26/2019, 12/22/2018, Additional history exists Depression Screening 04/07/2024 04/08/2023 DTap/Tdap Vaccines (1 - Tdap) 08/14/2024 Postponed from 1972 (Patient Declined After Education) Pneumococcal Vaccine: 65+ Years (1 of 2 - PCV) 08/14/2024 Postponed from 12/04/1959 (Patient Declined After Education) Zoster Vaccines (1 of 2) 08/14/2024 Pos tponed from 12/04/2003 (Patient Declined After Education) DXA Scan 10/02/2024 10/14/2020 Postponed from 10/14/2022 (Patient Declined After Education) O2 ASSESSMENT COMPLETED IN PAST YEAR FOR COPD 10/02/2024 10/03/2023 Colonoscopy 03/18/2026 03/18/2021, 02/0 10/2021, 12/18/2019, Additional history exists Colorectal Cancer Screening 03/18/2026 Diabetes Screening 09/04/2026 09/05/2023, 0 08/29/2023, 08/22/2023, Additional history exists Hepatitis C Screening Completed 05/31/2017 , 08/07/2015, 05/03/2014 RETIRED - COLONOSCOPY-ANNUAL AGES 18-100 Discontinued 03/18/2021, 03/18/2021, 12/18/2019, Additional history exists RETIRED - COLONOSCOPY-EVERY 5 YRS AGES 18-100 Discontinued 03/18/2021, 03/18/2021, 12/18/2019, Additional history exists VITAMIN D LEVEL ONCE IN A LIFETIME-USE SMARTSET# [id number] Completed 06/16/2021, 05/03/2014 AAA Screening Completed 09/24/2022, 04/08, 06/18/2019, Additional history exists Lung Cancer Screening Completed 06/20/2023 , 11/08/2016, 11/03/2016, Additional history exists HPV (Gardasil) Vaccine Aged Out No lo nger eligible based on patient's age to complete this topic Hepatitis B Vaccine Aged Out No longe r eligible based on patient's age to complete [...] 9:12 AM 05/09/2003 10:12 AM Care Teams Retort Pre Cooker Relationship Specialty Start Date End Date June, Ajit Sylvester MD [address] [place] [address] PCP - General Family Medicine 03/11/22 documented as of this encounter
[2023-10-09 22:54] LABS: Basophils # (auto) 0.04 K/uL (0.00-0.20); Basophils % (auto) 0.4 %; Eosinophils # (auto) 0.13 K/uL (0.00-0.50); Eosinophils % (auto) 1.2 %; Hematocrit (blood only) 38.4 % (42.0-52.0); Immature Granulocytes # (auto) 0.06 K/uL (0.01-0.20); Immature Granulocytes % (auto) 0.6 %; Lymphocytes # (auto) 2.42 K/uL (1.20-3.40); Lymphocytes % (auto) 22.8 %; Mean Corpuscular Hemoglobin 31.3 pg (25.0-34.0); Mean Corpuscular Hgb Conc 33.9 g/dL (32.0-36.0); Mean Corpuscular Volume 92.3 fL (80.0-100.0); Mean Platelet Volume 11.5 fL (9.4-12.4); Monocytes # (auto) 1.59 K/uL (0.11-0.59); Neutrophils # (auto) 6.39 K/uL (1.40-6.50); Platelet Count 185 K/uL (130-400); RDW Coefficient of Variation 15.2 % (11.5-14.5); RDW Standard Deviation 51.4 fL (36.4-46.3); Red Blood Count 4.16 M/uL (4.70-6.10); White Blood Count 10.63 K/ul (4.8-10.8)
[2023-10-09 23:12] LABS: Albumin Globulin Ratio 1.2 (0.9-2); Albumin Level 3.3 gm/dl (3.4-5.0); Bilirubin,Total 0.3 mg/dl (0.2-1.0); Calcium 7.8 mg/dl (8.6-10.3); Creatinine Clr Calc Pharmacy 84.8 ml/min; Est GFR (African American) 101.1 ml/min; Est GFR (Non-African American) 87.2 ml/min; Globulin 2.7 gm/dl (2.5-4.0); Potassium 4.4 mmol/L (3.5-5.1)
--- NOTE | 2023-10-09 23:12 | Emergency Department Note ---
Impression & Plan Acute on chronic hypoxic respiratory failure, Acute exacerbation of chronic obstructive pulmonary disease (COPD), Hypomagnesemia ED Provider Note ED Provider Note NAME: ANGELES BURLESON AGE:67 SEX: Male : 1955 ARRIVES VIA: private vehicle INFORMANT: Patient ED PROVIDER(s): Francy Rushing DO CHIEF COMPLAINT: Shortness of breath HPI: This is a 67-year-old male who presents emergency department due to concern for increased shortness of breath. Patient states he does have a history of COPD, does typically wear oxygen at night. He does use MDI/nebulizers at home and does follow with pulmonology. He states he was admitted 2 weeks ago with COVID and had increased difficulty breathing. He denies fevers/chills, vomiting or diarrhea. He states he does have chest pain across his chest additionally and a LLQ pain with coughing only. He denies leg swelling. PAST MEDICAL HISTORY:See Below PAST SURGICAL HISTORY:See Below FAMILY HISTORY:See Below SOCIAL HISTORY:See Below HOME MEDICATIONS:See Below ALLERGIES:See Below VITALS:See Below PHYSICAL EXAMINATION: GENERAL: alert, well appearing, well nourished, no distress, non-toxic EYE EXAM: normal conjunctiva, PERRL and EOM's grossly intact OROPHARYNX: no exudate, no erythema, lips, buccal mucosa, and tongue normal and mucous membranes are moist NECK: supple, no nuchal rigidity, no adenopathy, non-tender LUNGS: Increased work of breathing, mild tachypnea, patient noted to be hypoxic in the 80's on 2 L so was turned up to 4 by nursing staff, scattered expiratory wheeze however patient very diminished with poor air movement HEART: no murmurs, S1 normal and S2 normal ABDOMEN: abdomen soft, non-tender, normo-active bowel sounds, no masses, no rebound or guarding. BACK: Back is symmetrical on inspection and there is no deformity, no midline tenderness, no CVA tenderness. SKIN: no rashes, petechiae, orbruising UPPER EXTREMITIES: upper extremities are grossly normal. FROM, nml pulses b/l. LOWER EXTREMITIES: 1+ b/l pitting edema. FROM, nml pulses b/l. NEURO EXAM: Normal sensorium, cranial nerves II-XII grossly intact, normal speech, no facial droop,nogross weakness of arms, no gross weakness of legs. Gross sensation intact. No ataxia. Vital Signs: reviewed and remarkable Differential Diagnosis: pneumonia, bronchitis, COPD/Asthma exacerbation, pneumothorax, pulmonary embolism, congestive heart failure, acute coronary syndrome, as well as others were considered MEDICAL DECISION MAKING: This is a 67-year-old male with a history of COPD who presents emergency room due to concern for increased shortness of breath. Patient noted to be hypoxic by staff and placed on oxygen via nasal cannula. This had to be titrated up from 2 to 4 L/min due to persistent hypoxia. Labs drawn and sent, IV established, EKG and chest ray performed at bedside interpreted me and patient monitored on telemetry. He was started on a continuous nebulizer treatment at bedside, and started on IV Solu-Medrol and IV magnesium initially for bronchodilation. Patient with mild improvement during continuous neb treatment although still reported feeling short of breath. No acute EKG changes noted, no obvious infiltrate on chest x-ray. Patient reassessed both during and after the continuous nebulizer treatment and still had increased work of breathing, tachypnea, decreased air movement on auscultation as well as bilateral wheezing. We discussed additional nebulizer treatment here as well as addition of BiPAP due to his work of breathing. I contacted RT and BiPAP was brought to bedside. Patient with decreased work of breathing and appeared more comfortable once initiated on BiPAP, 2nd continuous nebulizer treatment placed through this. Bio fire nasal swab sent for acute viral symptoms. Patient was afebrile and had no leukocytosis. Mildly abnormal LFTs noted, however similar compared to prior, I suspect this is more likely secondary to medications. Due to need for increased oxygen supplementation, BiPAP due to increased work of breathing, 3 of COPD as well as recent hospitalization, case discussed with the hospitalist team for additional evaluation and management. Addition of antibiotics deferred to them pending their evaluation. Patient was noted to have hypomagnesemia and additional IV magnesium replacement was added. Patient given gentle IV fluid hydration additionally. Consultation(s): 0122: Discussed with Dr. Calderon, [facility] hospitalist team, for additional evaluation and management. ER Treatment Provided: See below 0005: Slight improvement in air movement with increased wheeze noted 0049: Continuous nebulizer treatment just finished. Patient reports no improvement. Patient still with bilateral wheezing, tachypnea, pursed lip breathing. 0115: Patient improved with decreased work of breathing and less tachypnea now on BiPAP. Diagnostics Interpreted By Me: -ECG: Normal sinus at 98, normal axis, normal intervals, no acute ST/T wave changes -Cardiac Monitoring: An order was placed for continuous cardiac monitoring. The monitor shows a rate of 96 with normal sinus rhythm. -Laboratory studies: As stated above and show below. -Imaging studies: cxr: No pleural effusion, no focal consolidation, chronic appearing changes noted bilaterally, mild cardiomegaly, no change compared to prior Triage Nursing Note Reviewed Prior/Outside Records Reviewed -recent discharge summary from 2 weeks ago reviewed Critical Care: Critical care of 44 min performed to assess and manage high likelihood of life- threatening hypoxia, involving labs and imaging performed with assessment to evaluate dyspnea and hypoxia diagnosis] with frequent reassessment. This time includes bedside time, treatment discussions with patient/family/consultants, documentation time and excludes procedure time. Past Med/Surg History Problem List (Updated 10/10/23 @ 00:50 by Francy Rushing DO) Hypomagnesemia (Acute) Acute exacerbation of chronic obstructive pulmonary disease (COPD) (Acute) Acute on chronic hypoxic respiratory failure (Acute) Diarrhea Hypomagnesemia (Acute) COVID-19 (Acute) COPD exacerbation (Acute) Type 2 diabetes mellitus Septic arthritis of elbow, right Elevated LFTs COPD (chronic obstructive pulmonary disease) (Acute) TAYLOR (obstructive sleep apnea) Cannot tolerate device Thrombus of aorta (Acute) Hypertension (Chronic) Tobacco abuse Obesity (Acute) Hypertrophy of nasal turbinates (Acute) Chronic sinusitis (Acute) Chronic post-thoracotomy pain (Acute) Cervical radiculopathy (Acute) Arthritis (Acute) Acquired deviated nasal septum (Acute) Nasal polyp Closed compression fracture of lumbar vertebra (Acute) Closed fracture of radial head (Acute) Compression fracture of L5 vertebra Pulmonary nodule seen on imaging study Multiple pulmonary nodules COPD with emphysema Chronic bronchitis Current smoker Post-nasal drip Chronic - stable Viral upper respiratory illness hx Anxiety (Chronic) HLD (hyperlipidemia) (Chronic) Thoracic spinal stenosis (Chronic) Diaphragmatic hernia (Chronic) GERD (gastroesophageal reflux disease) (Chronic) Well controlled and stable Neuropathy (Chronic) COPD, moderate (Chronic) Breathing stable Medical History Chronic respiratory failure Hx of migraines Sleep apnea History of COVID-19 Pneumothorax Histoplasmosis Surgical History History of esophagogastroduodenoscopy (EGD) Hx of colonoscopy History of open reduction and internal fixation (ORIF) procedure History of total replacement of left shoulder joint History of sinus surgery History of placement of chest tube History of hand surgery Left femoral shaft fracture H/O total hip arthroplasty H/O elbow surgery H/O exploratory thoracotomy H/O hernia repair Family History Father Heart disease Hypertension Brother Cancer Hypertension Stroke Heart disease Mother Cancer Other Leukemia No family history of bleeding disorder Non-Hodgkin lymphoma Denies family history of Hearing loss Asthma Social History Smoking Status: Current every day smoker Tobacco Type: Cigarettes Age Started Using Tobacco: 11; packs per day: 1; Cigarettes Per Day: 3/4 pack; Second Hand Exposure: No; Do You Dip or Chew Tobacco: No; Tobacco Cessation Education Requested by Patient: No Hx Alcohol Use: No Hx Substance Use: No Preferred Language: Welsh Communication Ability: Effective Assembly Person Required: No Beliefs That Will Affect Care: None marital status: Current Living Situation: Spouse current occupational status: unemployed Feels Safe at Home: Yes Safety Concerns: Feels Safe At This Time Assistive Devices: Oxygen - at Night and Other Allergies Allergies Allergy/AdvReac Type Severity Reaction Status Date / Time No Known Allergies Allergy Verified 10/10/23 00:09 Home Meds Home Medications Medication Instructions Recorded Confirmed pregabalin 100 mg capsule (Lyrica) 100 mg PO BID 10/16/17 10/10/23 ondansetron 8 mg disintegrating 8 mg PO Q8H PRN Nausea 04/07/22 10/10/23 tablet clobetasol 0.05 % topical cream 1 applic topical BID PRN Rash 12/29/22 10/10/23 levalbuterol HCl 1.25 mg/3 mL 1.25 mg inhalation Q4H PRN Wheezing 12/29/22 10/10/23 solution for nebulization triamcinolone acetonide 0.1 % 1 applic topical BID PRN Rash 12/29/22 10/10/23 topical cream cyanocobalamin (vitamin B-12) 1,000 mcg PO QAM 03/08/23 10/10/23 1,000 mcg tablet (Vitamin B-12) escitalopram oxalate 10 mg tablet 10 mg PO DAILY 06/13/23 10/10/23 baclofen 5 mg tablet 5 mg PO TID PRN muscle spasms 08/02/23 10/10/23 codeine 10 mg-guaifenesin 100 mg/5 5 ml PO Q4H PRN Cough 10/10/23 10/10/23 mL Syrup furosemide 40 mg tablet 40 mg PO QAM Fluid accumulation, 10/10/23 10/10/23 weight gain loperamide 2 mg tablet 4 mg PO TID PRN Diarrhea 10/10/23 10/10/23 montelukast 10 mg tablet 10 mg PO HS 10/10/23 10/10/23 prochlorperazine maleate 5 mg 5 mg PO Q6H PRN NAUSEA/VOMITING 10/10/23 10/10/23 tablet Previous Rx's Medication Instructions Recorded aspirin 81 mg tablet,delayed 81 mg PO QAM #30 tabs 03/11/23 release atorvastatin 80 mg tablet (Lipitor) 80 mg PO DAILY #30 tabs 03/11/23 pantoprazole 40 mg tablet,delayed 40 mg PO BID 30 days #60 tabs 04/06/23 release (Protonix) albuterol sulfate 90 mcg/actuation 2 puff inhalation Q4H PRN 04/26/23 aerosol inhaler Shortness Of Breath Or Wheezing #8.5 grams CPAP Machine #1 ea 06/24/23 CPAP Supplies #1 ea 06/24/23 metoprolol tartrate 25 mg tablet 12.5 mg (1/2 x 25 mg) PO BID #30 08/09/23 tabs doxycycline hyclate 100 mg tablet 100 mg PO BID #20 tabs 10/04/23 Results & Data (ED) Vital Signs Vital Signs - 24 hr 10/09/23 22:29 10/09/23 22:35 10/09/23 22:40 Temperature 36.9 C Temperature Source Temporal Artery Scan Pulse Rate 99 H 99 H Pulse Rate [Apical] Respiratory Rate 22 Respiratory Effort / Characteristics Non-Labored Spontaneous Respiratory Depth Normal Respiratory Pattern Blood Pressure 107/61 Blood Pressure [Left Arm] Blood Pressure Mean 76 Blood Pressure Mean [Left Arm] Pulse Oximetry 94 97 Oxygen Delivery Method Room Air Nasal Cannula Oxygen Flow Rate 2 Fraction of Inspired Oxygen Sepsis Recent Fever Within 48 Hours No Sepsis New/Unexplained Change in Mental Status N/A Sepsis Action Taken by Nursing No Action Required 10/09/23 22:47 10/09/23 22:47 10/09/23 23:39 Temperature Temperature Source Pulse Rate 89 Pulse Rate [Apical] 90 80 Respiratory Rate 21 21 22 Respiratory Effort / Characteristics Spontaneous Short of Breath Respiratory Depth Respiratory Pattern Blood Pressure Blood Pressure [Left Arm] 96/75 L Blood Pressure Mean Blood Pressure Mean [Left Arm] 82 Pulse Oximetry 97 97 99 Oxygen Delivery Method Nasal Cannula Nasal Cannula Nasal Cannula Oxygen Flow Rate 2 2 4 Fraction of Inspired Oxygen Sepsis Recent Fever Within 48 Hours Sepsis New/Unexplained Change in Mental Status Sepsis Action Taken by Nursing 10/10/23 00:29 10/10/23 01:22 Temperature Temperature Source Pulse Rate Pulse Rate [Apical] 96 H 91 H Respiratory Rate 18 18 Respiratory Effort / Characteristics Non-Labored Spontaneous Non-Labored Spontaneous Respiratory Depth Normal Respiratory Pattern Regular Blood Pressure Blood Pressure [Left Arm] 114/56 L Blood Pressure Mean Blood Pressure Mean [Left Arm] 75 Pulse Oximetry 100 98 Oxygen Delivery Method Nebulizer BiPAP Oxygen Flow Rate 7 Fraction of Inspired Oxygen 30 Sepsis Recent Fever Within 48 Hours Sepsis New/Unexplained Change in Mental Status Sepsis Action Taken by Nursing Laboratory Data 10/11/23 06:12 10/10/23 06:42 Lab Results 10/09/23 10/09/23 10/09/23 Range/Units 22:39 23:09 23:48 WBC 10.63 (4.8-10.8) K/ul RBC 4.16 L (4.70-6.10) M/uL Hgb 13.0 L (14.0-18.0) g/dl Hct 38.4 L (42.0-52.0) % MCV 92.3 (80.0-100.0) fL MCH 31.3 (25.0-34.0) pg MCHC 33.9 (32.0-36.0) g/dL RDW Std Deviation 51.4 H (36.4-46.3) fL RDW Coeff of Jaz 15.2 H (11.5-14.5) % Plt Count 185 (130-400) K/uL MPV 11.5 (9.4-12.4) fL Immature Gran % (Auto) 0.6 % Neut % (Auto) 60.0 % Lymph % (Auto) 22.8 % [place] % (Auto) 15.0 % Eos % (Auto) 1.2 % Baso % (Auto) 0.4 % Neut # (Auto) 6.39 (1.40-6.50) K/uL Lymph # (Auto) 2.42 (1.20-3.40) K/uL [place] # (Auto) 1.59 H (0.11-0.59) K/uL Eos # (Auto) 0.13 (0.00-0.50) K/uL Baso # (Auto) 0.04 (0.00-0.20) K/uL Immature Gran # (Auto) 0.06 (0.01-0.20) K/uL PT 10.7 (9.0-12.0) Seconds INR 1.0 (0.9-1.1) VBG pH 7.45 H (7.36-7.41) VBG pCO2 39 (38-50) mmHg VBG pO2 90 mmHg VBG HCO3 27 mmol/L VBG O2 Saturation 97.7 % VBG Base Excess 3.0 mEq/L Sodium 137 (136-145) mmol/L Potassium 4.4 (3.5-5.1) mmol/L Chloride 104 (98-107) mmol/L Carbon Dioxide 27 (21-32) mmol/L Anion Gap 6 (3-11) BUN 24 H (6-23) mg/dl Creatinine 0.89 (0.6-1.4) mg/dl Est Cr Clr Drug Dosing 84.8 ml/min Est GFR ( Amer) 101.1 ml/min Est GFR (Non-Af Amer) 87.2 ml/min BUN/Creatinine Ratio 27.0 H (10-20) Glucose 105 H (70-99(Fasting)) mg/dl Calcium 7.8 L (8.6-10.3) mg/dl Magnesium 1.1 L (1.7-2.4) mg/dl Total Bilirubin 0.3 (0.2-1.0) mg/dl AST 51 H (13-39) U/L ALT 67 H (7-52) U/L Alkaline Phosphatase 123 H (34-104) U/L Troponin I High Sens 14.8 (0-20) pg/ml Total Protein 6.0 (6.0-8.3) gm/dl Albumin 3.3 L (3.4-5.0) gm/dl Globulin 2.7 (2.5-4.0) gm/dl Albumin/Globulin Ratio 1.2 (0.9-2) Lipase 52 (11-82) U/L Adenovirus (PCR) Not Detected (NotDetected) B. pertussis DNA (PCR) Not Detected (NotDetected) B.parapertussis DNA PCR Not Detected (NotDetected) C. pneumoniae DNA (PCR) Not Detected (NotDetected) Coronavirus OC43 (PCR) Not Detected (NotDetected) Coronavirus HKU1 (PCR) Not Detected (NotDetected) Coronavirus 229E (PCR) Not Detected (NotDetected) SARS-CoV-2 (PCR) Not Detected (NotDetected) Coronavirus NL63 (PCR) Not Detected (NotDetected) Human Metapneumovir PCR Not Detected (NotDetected) Influenza Type A (PCR) Not Detected (NotDetected) Influenza Type B (PCR) Not Detected (NotDetected) M. pneumoniae (PCR) Not Detected (NotDetected) Parainfluenza 1 (PCR) Not Detected (NotDetected) Parainfluenza 2 (PCR) Not Detected (NotDetected) Parainfluenza 3 (PCR) Not Detected (NotDetected) Parainfluenza 4 (PCR) Not Detected (NotDetected) RSV (PCR) Not Detected (NotDetected) Entero/Rhino (PCR) Not Detected (NotDetected) Administered Medications Aspirin (Aspirin 81 Mg Ectab) 81 mg PO QAM [facility] Stop: 11/09/23 08:59 Last Admin: 10/10/23 08:22 Dose: 81 mg Documented By: AM Atorvastatin Calcium (Atorvastatin 40 Mg Tab) 80 mg PO DAILY [facility] Stop: 11/09/23 08:59 Last Admin: 10/10/23 08:22 Dose: 80 mg Documented By: AM Budesonide (Budesonide 0.5 Mg/2 Ml Vial (Pulmicort)) 0.5 mg NEB BIDR [facility] Stop: 11/09/23 18:59 Last Admin: 10/10/23 20:09 Dose: 0.5 mg Documented By: EVER Cyanocobalamin (Cyanocobalamin (B-12) 500 Mcg Tablet) 1,000 mcg PO QAM [facility] Stop: 11/09/23 08:59 Last Admin: 10/10/23 08:22 Dose: 1,000 mcg Documented By: AM Enoxaparin Sodium (Enoxaparin Inj 40 Mg/0.4 Ml Syr) 40 mg SQ Q24H [facility] Stop: 11/09/23 08:59 Last Admin: 10/10/23 08:25 Dose: 40 mg Documented By: AM Escitalopram Oxalate (Escitalopram Oxalate 10 Mg Tab) 10 mg PO DAILY [facility] Stop: 11/09/23 08:59 Last Admin: 10/10/23 08:24 Dose: 10 mg Documented By: AM Formoterol Fumarate (Formoterol 20 Mcg/2 Ml Vial) 20 mcg NEB BIDR [facility] Stop: 11/09/23 08:59 Last Admin: 10/10/23 20:09 Dose: 20 mcg Documented By: Admin: 10/10/23 07:22 Dose: 20 mcg Documented By: NUNO Furosemide (Furosemide 40 Mg Tab) 40 mg PO QAM [facility] Stop: 11/09/23 08:59 Last Admin: 10/10/23 08:24 Dose: 40 mg Documented By: AM Magnesium Chloride (Magnesium Chloride W/Calcium 64mg Delayed Rel Tab) 64 mg PO BID [facility] Stop: 11/09/23 10:44 Last Admin: 10/10/23 20:45 Dose: 64 mg Documented By: Admin: 10/10/23 10:55 Dose: 64 mg Documented By: AM Metoprolol Tartrate (Metoprolol Tartrate 25 Mg Tab) 12.5 mg PO BID [facility] Stop: 11/09/23 08:59 Last Admin: 10/10/23 20:43 Dose: 12.5 mg Documented By: Admin: 10/10/23 08:23 Dose: 12.5 mg Documented By: AM Montelukast Sodium (Montelukast Sodium 10 Mg Tablet) 10 mg PO HS [facility] Stop: 11/09/23 20:59 Last Admin: 10/10/23 20:44 Dose: 10 mg Documented By: MARJAN Pantoprazole Sodium (Pantoprazole 40 Mg Tab) 40 mg PO BID [facility] Stop: 11/09/23 08:59 Last Admin: 10/10/23 20:43 Dose: 40 mg Documented By: Admin: 10/10/23 08:23 Dose: 40 mg Documented By: LEV Pregabalin (Pregabalin 100 Mg Cap) 100 mg PO BID [facility] Stop: 11/09/23 08:59 Last Admin: 10/10/23 20:47 Dose: 100 mg Documented By: Admin: 10/10/23 08:56 Dose: 100 mg Documented By: LEV Umeclidinium Hope (Umeclidinium Hope 62.5mcg/Blister 7 Puffs/Inhaler) 1 puffs INH DAILY [facility] Stop: 11/09/23 08:59 Last Admin: 10/10/23 08:21 Dose: 1 puffs Documented By: LEV Discontinued Medications Albuterol (Albut/Ipratrop 3mg/0.5mg Neb 3 Ml Vial) 12 ml NEB ONE ONE; Protocol Stop: 10/09/23 23:05 Last Admin: 10/09/23 23:38 Dose: 12 ml Documented By: EVER Albuterol (Albut/Ipratrop 3mg/0.5mg Neb 3 Ml Vial) Confirm Administered Dose 12 ml .ROUTE .STK-MED ONE Stop: 10/10/23 01:14 Last Admin: 10/10/23 01:21 Dose: 12 ml Documented By: EVER Albuterol (Albut/Ipratrop 3mg/0.5mg Neb 3 Ml Vial) 12 ml NEB ONE ONE; Protocol Stop: 10/10/23 01:14 Last Admin: 10/10/23 01:22 Dose: Not Given Documented By: EVER Albuterol (Albut/Ipratrop 3mg/0.5mg Neb 3 Ml Vial) 3 ml NEB QIDR [facility]; Protocol Stop: 11/09/23 06:59 Last Admin: 10/10/23 07:22 Dose: Not Given Documented By: NUNO Budesonide (Budesonide 0.5 Mg/2 Ml Vial (Pulmicort)) 0.5 mg NEB ONE ONE Stop: 10/10/23 07:31 Last Admin: 10/10/23 07:21 Dose: 0.5 mg Documented By: NUNO Formoterol Fumarate (Formoterol 20 Mcg/2 Ml Vial) Confirm Administered Dose 20 mcg .ROUTE .STK-MED ONE Stop: 10/10/23 07:14 Last Admin: 10/10/23 07:22 Dose: Not Given Documented By: NUNO Magnesium Sulfate/Dextrose (Magnesium Sulfate / D5w) 1 gm in 100 mls @ 100 mls/hr IV NOW STA Stop: 10/10/23 00:04 Last Infusion: 10/10/23 00:09 Dose: Infused Documented By: Admin: 10/09/23 23:14 Dose: 100 mls/hr Documented By: GONZALO Sodium Chloride (Nss) 1,000 mls @ 125 mls/hr IV .Q8H [facility] Stop: 11/08/23 23:14 Last Infusion: 10/10/23 03:55 Dose: Infused Documented By: Admin: 10/09/23 23:26 Dose: 125 mls/hr Documented By: GONZALO Magnesium Sulfate/Dextrose (Magnesium Sulfate / D5w) 1 gm in 100 mls @ 100 mls/hr IV NOW STA Stop: 10/10/23 00:38 Last Infusion: 10/10/23 01:12 Dose: Infused Documented By: Admin: 10/10/23 00:10 Dose: 100 mls/hr Documented By: GONZALO Acetaminophen (Ofirmev) 1,000 mg in 100 mls @ 400 mls/hr IV NOW STA Stop: 10/10/23 01:01 Last Infusion: 10/10/23 01:28 Dose: Infused Documented By: Admin: 10/10/23 01:13 Dose: 400 mls/hr Documented By: GONZALO Magnesium Sulfate/Dextrose (Magnesium Sulfate / D5w) 1 gm in 100 mls @ 50 mls/hr IV ONE STA Stop: 10/10/23 03:18 Last Infusion: 10/10/23 02:34 Dose: Infused Documented By: Admin: 10/10/23 01:30 Dose: 50 mls/hr Documented By: GONZALO Methylprednisolone 40 mg/ (Syringe) 0.64 mls @ 1.5 mls/min IV Q8H [facility] Stop: 11/09/23 05:59 Last Admin: 10/11/23 05:56 Dose: 1.5 mls/min Documented By: Admin: 10/10/23 21:43 Dose: 1.5 mls/min Documented By: Admin: 10/10/23 14:58 Dose: 1.5 mls/min Documented By: Admin: 10/10/23 05:49 Dose: 1.5 mls/min Documented By: MARJAN Azithromycin 500 mg/ Dextrose 255 mls @ 127.5 mls/hr IV NOW STA Stop: 10/10/23 09:47 Last Infusion: 10/10/23 10:57 Dose: Infused Documented By: Admin: 10/10/23 08:56 Dose: 127.5 mls/hr Documented By: AM Methylprednisolone (Methylprednisolone 125 Mg/2 Ml Vial) 60 mg IV NOW STA Stop: 10/09/23 23:05 Last Admin: 10/09/23 23:15 Dose: 60 mg Documented By: EMB Discharge Plan Visit Data Chief Complaint: Chest Pain Stated Complaint: SOB, CHEST/RT ARM PAIN, SHARP PAIN IN ABD/COUGHING ED Provider: Francy Rushing Discharge Problem: Acute on chronic hypoxic respiratory failure, Acute exacerbation of chronic obstructive pulmonary disease (COPD), Hypomagnesemia Patient Disposition: Admitted As Inpatient Discharge Instructions Interventions: ED Discharge Assessment Last Done: 10/10/23 03:31
[2023-10-09] MEDS: MAGNESIUM SULFATE / D5W 1 GM/100 ML BAG IV STA (23:14)
[2023-10-09] MEDS: methylPREDNISolone 125 MG/2 ML VIAL IV STA (23:15)
[2023-10-09 23:19] LABS: Troponin I High Sensitivity 14.8 pg/ml (0-20)
[2023-10-09 23:24] LABS: Prothrombin Time 10.7 Seconds (9.0-12.0)
[2023-10-09] MEDS: SODIUM CHLORIDE 0.9% 1,000 ML IV SCH (23:26)
[2023-10-09 23:33] LABS: Magnesium 1.1 mg/dl (1.7-2.4)
[2023-10-09] MEDS: ALBUT/IPRATROP 3MG/0.5MG NEB 3 ML VIAL NEB ONE (23:38)
[2023-10-09 23:53] LABS: HCO3 VBG 27 mmol/L; Oxygen Saturation VBG 97.7 %; PCO2 VBG 39 mmHg (38-50); PO2 VBG 90 mmHg; pH VBG 7.45 (7.36-7.41)
[2023-10-10] MEDS: MAGNESIUM SULFATE / D5W 1 GM/100 ML BAG IV STA ×2 (00:10→01:30)
[2023-10-10 00:11] LABS: Adenovirus PCR Not Detected (NotDetected); Bordetella parapertussis PCR Not Detected (NotDetected); Bordetella pertussis PCR Not Detected (NotDetected); Chlamydia pneumoniae PCR Not Detected (NotDetected); Coronavirus 229E PCR Not Detected (NotDetected); Coronavirus CoV-2 (COVID19)PCR Not Detected (NotDetected); Coronavirus HKU1 PCR Not Detected (NotDetected); Coronavirus NL63 PCR Not Detected (NotDetected); Coronavirus OC43PCR Not Detected (NotDetected); Human Metapneumovirus PCR Not Detected (NotDetected); Influenza A PCR Not Detected (NotDetected); Influenza B PCR Not Detected (NotDetected); Mycoplasma pneumoniae PCR Not Detected (NotDetected); Parainfluenza Virus 1 PCR Not Detected (NotDetected); Parainfluenza Virus 2 PCR Not Detected (NotDetected); Parainfluenza Virus 3 PCR Not Detected (NotDetected); Parainfluenza Virus 4 PCR Not Detected (NotDetected); Respiratory Syncytial VirusPCR Not Detected (NotDetected); Rhinovirus/Enterovirus PCR Not Detected (NotDetected)
[2023-10-10] MEDS: ACETAMINOPHEN 1,000 MG/100 ML VIAL IV STA (01:13)
[2023-10-10] MEDS: ALBUT/IPRATROP 3MG/0.5MG NEB 3 ML VIAL ONE (01:21)
[2023-10-10] MEDS: ALBUT/IPRATROP 3MG/0.5MG NEB 3 ML VIAL NEB ONE (01:22)
--- NOTE | 2023-10-10 02:04 | History & Physical Report ---
Date of Service October 10, 2023 Assessment & Plan (1) Acute on chronic hypoxic respiratory failure: Plan: 67-year-old male with past medical history significant for hyperlipidemia, COPD, obstructive sleep apnea on 2 L oxygen nightly, atherosclerosis of aorta, GERD, obesity, chronic pain syndrome, tobacco use disorder, history of venous thrombosis and embolism, depression and was recently in the hospital, admitted on September 23, 2023 with COVID and COPD exacerbation presents today with shortness of breath and COPD exacerbation. Patient states last 2 days he is feeling short of breath and coughing a lot and bringing phlegm. Because of the cough he has soreness in the chest and also has abdominal discomfort. Chest pain is more when taking deep breath. Denies any fevers. No headache. Vision is okay. Has some runny nose. No sore throat. Appetite is okay. No nausea. No normal bowel and bladder meds. In the ER he was requiring 4 L oxygen but was tachypneic even after dose of steroid and hour-long neb. Currently getting another hour-long neb and placed on BiPAP. He is saying his shortness of breath slightly improved. Acute on chronic hypoxic respiratory failure Acute COPD exacerbation Respiratory bio fire negative Currently requiring BiPAP IV Solu-Medrol 40 mg 3 times daily, DuoNebs [id number] and as needed Continue doxycycline Close monitoring telemetry History of obstructive sleep apnea Says uses oxygen 2 L nightly States no CPAP machine at home CPAP/BiPAP nightly while in the hospital Needs follow-up with sleep lab/pulmonary Hypomagnesia Will replace Consult nephrology as patient has chronic hypomagnesia Elevated LFTs Symptoms present since sometime Last admission liver ultrasound was okay Follow repeat labs Hypertension On metoprolol and Lasix Monitor GERD On Protonix Hyperlipidemia On statin Depression On Lexapro Mild hypocalcemia Follow repeat labs Follow vitamin D levels DVT prophylaxis Lovenox Disposition Telemetry Full code. History of Present Illness Chief Complaint: Shortness of breath Primary Care Provider: Ajit Moreno MD 67-year-old male with past medical history significant for hyperlipidemia, COPD, obstructive sleep apnea on 2 L oxygen nightly, atherosclerosis of aorta, GERD, obesity, chronic pain syndrome, tobacco use disorder, history of venous thrombosis and embolism, depression and was recently in the hospital, admitted on September 23, 2023 with COVID and COPD exacerbation presents today with shortness of breath and COPD exacerbation. Patient states last 2 days he is feeling short of breath and coughing a lot and bringing phlegm. Because of the cough he has soreness in the chest and also has abdominal discomfort. Chest pain is more when taking deep breath. Denies any fevers. No headache. Vision is okay. Has some runny nose. No sore throat. Appetite is okay. No nausea. No normal bowel and bladder meds. In the ER he was requiring 4 L oxygen but was tachypneic even after dose of steroid and hour-long neb. Currently getting another hour-long neb and placed on BiPAP. He is saying his shortness of breath slightly improved. Past medical history. As mentioned above. Past surgical history. Colonoscopy .EGD. Left reverse reconstruction of shoulder joint, left thoracotomy with biopsy of left upper lobe, umbilical hernia repair, right elbow surgery. Social history. . Smokes 0.5 pack a day for 45 years. No alcohol use. No drug use. Family history. Brother had leukemia. Mother had non-Hodgkin's lymphoma. Father heart disorder. Brother had stroke. Allergies Allergy/AdvReac Type Severity Reaction Status Date / Time No Known Allergies Allergy Verified 10/10/23 00:09 Home Medications Medication Instructions Recorded Confirmed Type pregabalin 100 mg capsule (Lyrica) 100 mg PO BID 10/16/17 10/10/23 History ondansetron 8 mg disintegrating 8 mg PO Q8H PRN Nausea 04/07/22 10/10/23 History tablet clobetasol 0.05 % topical cream 1 applic topical BID PRN Rash 12/29/22 10/10/23 History levalbuterol HCl 1.25 mg/3 mL 1.25 mg inhalation Q4H PRN Wheezing 12/29/22 10/10/23 History solution for nebulization triamcinolone acetonide 0.1 % 1 applic topical BID PRN Rash 12/29/22 10/10/23 History topical cream cyanocobalamin (vitamin B-12) 1,000 mcg PO QAM 03/08/23 10/10/23 History 1,000 mcg tablet (Vitamin B-12) aspirin 81 mg tablet,delayed 81 mg PO QAM #30 tabs 03/11/23 10/10/23 Rx release atorvastatin 80 mg tablet (Lipitor) 80 mg PO DAILY #30 tabs 03/11/23 10/10/23 Rx pantoprazole 40 mg tablet,delayed 40 mg PO BID 30 days #60 tabs 04/06/23 10/10/23 Rx release (Protonix) albuterol sulfate 90 mcg/actuation 2 puff inhalation Q4H PRN 04/26/23 10/10/23 Rx aerosol inhaler Shortness Of Breath Or Wheezing #8.5 grams escitalopram oxalate 10 mg tablet 10 mg PO DAILY 06/13/23 10/10/23 History CPAP Machine #1 ea 06/24/23 08/02/23 Rx CPAP Supplies #1 ea 06/24/23 08/02/23 Rx baclofen 5 mg tablet 5 mg PO TID PRN muscle spasms 08/02/23 10/10/23 History metoprolol tartrate 25 mg tablet 12.5 mg (1/2 x 25 mg) PO BID #30 08/09/23 10/10/23 Rx tabs doxycycline hyclate 100 mg tablet 100 mg PO BID #20 tabs 10/04/23 10/10/23 Rx codeine 10 mg-guaifenesin 100 mg/5 5 ml PO Q4H PRN Cough 10/10/23 10/10/23 History mL Syrup furosemide 40 mg tablet 40 mg PO QAM Fluid accumulation, 10/10/23 10/10/23 History weight gain loperamide 2 mg tablet 4 mg PO TID PRN Diarrhea 10/10/23 10/10/23 History montelukast 10 mg tablet 10 mg PO HS 10/10/23 10/10/23 History prochlorperazine maleate 5 mg 5 mg PO Q6H PRN NAUSEA/VOMITING 10/10/23 10/10/23 History tablet Past Med/Surg History Problem List (Updated 10/10/23 @ 00:50 by Francy Rushing, ) Hypomagnesemia (Acute) Acute exacerbation of chronic obstructive pulmonary disease (COPD) (Acute) Acute on chronic hypoxic respiratory failure (Acute) Diarrhea Hypomagnesemia (Acute) COVID-19 (Acute) COPD exacerbation (Acute) Type 2 diabetes mellitus Septic arthritis of elbow, right Elevated LFTs COPD (chronic obstructive pulmonary disease) (Acute) TAYLOR (obstructive sleep apnea) Cannot tolerate device Thrombus of aorta (Acute) Hypertension (Chronic) Tobacco abuse Obesity (Acute) Hypertrophy of nasal turbinates (Acute) Chronic sinusitis (Acute) Chronic post-thoracotomy pain (Acute) Cervical radiculopathy (Acute) Arthritis (Acute) Acquired deviated nasal septum (Acute) Nasal polyp Closed compression fracture of lumbar vertebra (Acute) Closed fracture of radial head (Acute) Compression fracture of L5 vertebra Pulmonary nodule seen on imaging study Multiple pulmonary nodules COPD with emphysema Chronic bronchitis Current smoker Post-nasal drip Chronic - stable Viral upper respiratory illness hx Anxiety (Chronic) HLD (hyperlipidemia) (Chronic) Thoracic spinal stenosis (Chronic) Diaphragmatic hernia (Chronic) GERD (gastroesophageal reflux disease) (Chronic) Well controlled and stable Neuropathy (Chronic) COPD, moderate (Chronic) Breathing stable Medical History Chronic respiratory failure Hx of migraines Sleep apnea History of COVID-19 Pneumothorax Histoplasmosis Surgical History History of esophagogastroduodenoscopy (EGD) Hx of colonoscopy History of open reduction and internal fixation (ORIF) procedure History of total replacement of left shoulder joint History of sinus surgery History of placement of chest tube History of hand surgery Left femoral shaft fracture H/O total hip arthroplasty H/O elbow surgery H/O exploratory thoracotomy H/O hernia repair Family History Father Heart disease Hypertension Brother Cancer Hypertension Stroke Heart disease Mother Cancer Other Leukemia No family history of bleeding disorder Non-Hodgkin lymphoma Denies family history of Hearing loss Asthma Social History Smoking Status: Current every day smoker Tobacco Type: Cigarettes Age Started Using Tobacco: 11; packs per day: 1; Cigarettes Per Day: 3/4 pack; Second Hand Exposure: No; Do You Dip or Chew Tobacco: No; Tobacco Cessation Education Requested by Patient: No Hx Alcohol Use: No Hx Substance Use: No Preferred Language: Estonian Communication Ability: Effective Publishing Specialist Required: No Beliefs That Will Affect Care: None marital status: Current Living Situation: Spouse current occupational status: unemployed Feels Safe at Home: Yes Safety Concerns: Feels Safe At This Time Assistive Devices: Oxygen - at Night and Other Review of Systems Review of Systems: All systems reviewed & are unremarkable except as noted in HPI & below Physical Exam Physical Exam: General- Currently not in acute distress Head- atraumatic Eyes- PERRL. ENT- oropharynx clear Neck- supple, no JVD. Lungs- clear to auscultation b/l wheezing present, no crackles Heart- regular rate and rhythm; no murmur, no gallop. Abdomen- normal bowel sounds, soft, nontender, no distension Extremities- no pretibial edema, no erythema seen Neuro- alert, oriented ; PERRL, no facial palsy; no dysarthria; moves extremities Results & Data Results & Data Vital Signs (Past 12 Hours) Vital Signs Temp Pulse Pulse Resp BP BP Pulse Ox 10/10/23 01:22 91 H 18 98 10/10/23 01:10 91 H 19 98 10/10/23 00:29 96 H 18 114/56 L 100 10/09/23 23:39 80 22 99 10/09/23 22:47 89 21 97 10/09/23 22:47 90 21 96/75 L 97 10/09/23 22:40 97 10/09/23 22:35 99 H 10/09/23 22:29 36.9 C 99 H 22 107/61 94 O2 Del Method O2 Flow Rate FiO2 10/10/23 01:22 BiPAP 30 10/10/23 01:10 30 10/10/23 00:29 Nebulizer 7 10/09/23 23:39 Nasal Cannula 4 10/09/23 22:47 Nasal Cannula 2 10/09/23 22:47 Nasal Cannula 2 10/09/23 22:40 Nasal Cannula 2 10/09/23 22:35 10/09/23 22:29 Room Air Diagnostic Findings Laboratory Results WBC 10.63 K/ul (4.8-10.8) 10/09/23 22:39 RBC 4.16 M/uL (4.70-6.10) L 10/09/23 22:39 Hgb 13.0 g/dl (14.0-18.0) L 10/09/23 22:39 Hct 38.4 % (42.0-52.0) L 10/09/23 22:39 MCV 92.3 fL (80.0-100.0) 10/09/23 22:39 MCH 31.3 pg (25.0-34.0) 10/09/23 22:39 MCHC 33.9 g/dL (32.0-36.0) 10/09/23 22:39 RDW Std Deviation 51.4 fL (36.4-46.3) H 10/09/23 22:39 RDW Coeff of Jaz 15.2 % (11.5-14.5) H 10/09/23 22:39 Plt Count 185 K/uL (130-400) 10/09/23 22:39 MPV 11.5 fL (9.4-12.4) 10/09/23 22:39 Immature Gran % (Auto) 0.6 % 10/09/23 22:39 Neut % (Auto) 60.0 % 10/09/23 22:39 Lymph % (Auto) 22.8 % 10/09/23 22:39 Falls % (Auto) 15.0 % 10/09/23 22:39 Eos % (Auto) 1.2 % 10/09/23 22:39 Baso % (Auto) 0.4 % 10/09/23 22:39 Neut # (Auto) 6.39 K/uL (1.40-6.50) 10/09/23 22:39 Lymph # (Auto) 2.42 K/uL (1.20-3.40) 10/09/23 22:39 Falls # (Auto) 1.59 K/uL (0.11-0.59) H 10/09/23 22:39 Eos # (Auto) 0.13 K/uL (0.00-0.50) 10/09/23 22:39 Baso # (Auto) 0.04 K/uL (0.00-0.20) 10/09/23 22:39 Immature Gran # (Auto) 0.06 K/uL (0.01-0.20) 10/09/23 22:39 PT 10.7 Seconds (9.0-12.0) 10/09/23 22:39 INR 1.0 (0.9-1.1) 10/09/23 22:39 VBG pH 7.45 (7.36-7.41) H 10/09/23 23:48 VBG pCO2 39 mmHg (38-50) 10/09/23 23:48 VBG pO2 90 mmHg 10/09/23 23:48 VBG HCO3 27 mmol/L 10/09/23 23:48 VBG O2 Saturation 97.7 % 10/09/23 23:48 VBG Base Excess 3.0 mEq/L 10/09/23 23:48 Sodium 137 mmol/L (136-145) 10/09/23 22:39 Potassium 4.4 mmol/L (3.5-5.1) 10/09/23 22:39 Chloride 104 mmol/L (98-107) 10/09/23 22:39 Carbon Dioxide 27 mmol/L (21-32) 10/09/23 22:39 Anion Gap 6 (3-11) 10/09/23 22:39 BUN 24 mg/dl (6-23) H 10/09/23 22:39 Creatinine 0.89 mg/dl (0.6-1.4) 10/09/23 22:39 Est Cr Clr Drug Dosing 84.8 ml/min 10/09/23 22:39 Est GFR ( Amer) 101.1 ml/min 10/09/23 22:39 Est GFR (Non-Af Amer) 87.2 ml/min 10/09/23 22:39 BUN/Creatinine Ratio 27.0 (10-20) H 10/09/23 22:39 Glucose 105 mg/dl (70-99(Fasting)) H 10/09/23 22:39 Calcium 7.8 mg/dl (8.6-10.3) L 10/09/23 22:39 Magnesium 1.1 mg/dl (1.7-2.4) L 10/09/23 22:39 Total Bilirubin 0.3 mg/dl (0.2-1.0) 10/09/23 22:39 AST 51 U/L (13-39) H 10/09/23 22:39 ALT 67 U/L (7-52) H 10/09/23 22:39 Alkaline Phosphatase 123 U/L (34-104) H 10/09/23 22:39 Troponin I High Sens 14.8 pg/ml (0-20) 10/09/23 22:39 Total Protein 6.0 gm/dl (6.0-8.3) 10/09/23 22:39 Albumin 3.3 gm/dl (3.4-5.0) L 10/09/23 22:39 Globulin 2.7 gm/dl (2.5-4.0) 10/09/23 22:39 Albumin/Globulin Ratio 1.2 (0.9-2) 10/09/23 22:39 Lipase 52 U/L (11-82) 10/09/23 22:39 Adenovirus (PCR) Not Detected (NotDetected) 10/09/23 23:09 B. pertussis DNA (PCR) Not Detected (NotDetected) 10/09/23 23:09 B.parapertussis DNA PCR Not Detected (NotDetected) 10/09/23 23:09 C. pneumoniae DNA (PCR) Not Detected (NotDetected) 10/09/23 23:09 Coronavirus OC43 (PCR) Not Detected (NotDetected) 10/09/23 23:09 Coronavirus HKU1 (PCR) Not Detected (NotDetected) 10/09/23 23:09 Coronavirus 229E (PCR) Not Detected (NotDetected) 10/09/23 23:09 SARS-CoV-2 (PCR) Not Detected (NotDetected) 10/09/23 23:09 Coronavirus NL63 (PCR) Not Detected (NotDetected) 10/09/23 23:09 Human Metapneumovir PCR Not Detected (NotDetected) 10/09/23 23:09 Influenza Type A (PCR) Not Detected (NotDetected) 10/09/23 23:09 Influenza Type B (PCR) Not Detected (NotDetected) 10/09/23 23:09 M. pneumoniae (PCR) Not Detected (NotDetected) 10/09/23 23:09 Parainfluenza 1 (PCR) Not Detected (NotDetected) 10/09/23 23:09 Parainfluenza 2 (PCR) Not Detected (NotDetected) 10/09/23 23:09 Parainfluenza 3 (PCR) Not Detected (NotDetected) 10/09/23 23:09 Parainfluenza 4 (PCR) Not Detected (NotDetected) 10/09/23 23:09 RSV (PCR) Not Detected (NotDetected) 10/09/23 23:09 Entero/Rhino (PCR) Not Detected (NotDetected) 10/09/23 23:09 Code Status & VTE Plan VTE Prophylaxis Plan VTE Prophylaxis will be ordered: Yes
[2023-10-10] MEDS ORDERED: NITROGLYCERIN SL 0.4 MG/TAB TAB SL PRN (03:41)
[2023-10-10] MEDS ORDERED: BACLOFEN 10 MG TAB PO PRN (03:41)
[2023-10-10] MEDS ORDERED: CLOBETASOL PROPIONATE 0.05% CREAM 15 GM TUBE TOP PRN (03:41)
[2023-10-10] MEDS ORDERED: ALBUT/IPRATROP 3MG/0.5MG NEB 3 ML VIAL NEB PRN (03:41)
[2023-10-10] MEDS ORDERED: ACETAMINOPHEN 325 MG TAB PO PRN (03:41)
[2023-10-10] MEDS ORDERED: POLYETHYLENE (MIRALAX) 17 GM PACK PO PRN (03:41)
[2023-10-10] MEDS ORDERED: ALBUTEROL HFA 8 GM INHALER INH PRN (03:41)
[2023-10-10] MEDS ORDERED: guaiFENesin SUGAR FREE 100 MG/5 ML UDC PO PRN (03:57)
[2023-10-10] MEDS: methylPREDNISolone 40 MG in SYRINGE 0 ML IV SCH (05:49)
[2023-10-10 07:08] LABS: Basophils # (auto) 0.01 K/uL (0.00-0.20); Basophils % (auto) 0.2 %; Hematocrit (blood only) 38.6 % (42.0-52.0); Hemoglobin 12.9 g/dl (14.0-18.0); Immature Granulocytes # (auto) 0.03 K/uL (0.01-0.20); Immature Granulocytes % (auto) 0.5 %; Lymphocytes # (auto) 0.64 K/uL (1.20-3.40); Lymphocytes % (auto) 9.7 %; Mean Corpuscular Hemoglobin 31.1 pg (25.0-34.0); Mean Corpuscular Hgb Conc 33.4 g/dL (32.0-36.0); Mean Platelet Volume 11.1 fL (9.4-12.4); Monocytes # (auto) 0.23 K/uL (0.11-0.59); Monocytes % (auto) 3.5 %; Neutrophils # (auto) 5.68 K/uL (1.40-6.50); Neutrophils % (auto) 86.1 %; Platelet Count 173 K/uL (130-400); RDW Coefficient of Variation 15.1 % (11.5-14.5); RDW Standard Deviation 51.8 fL (36.4-46.3); Red Blood Count 4.15 M/uL (4.70-6.10); White Blood Count 6.59 K/ul (4.8-10.8)
[2023-10-10 07:21] LABS: Est GFR (African American) 107.3 ml/min; Potassium 3.7 mmol/L (3.5-5.1)
[2023-10-10] MEDS: BUDESONIDE 0.5 MG/2 ML VIAL (PULMICORT) NEB ONE (07:21)
[2023-10-10 07:22] LABS: Albumin Level 3.3 gm/dl (3.4-5.0); BUN Creatinine Ratio 27.3 (10-20); Bilirubin Direct 0.1 mg/dl (0-0.2); Bilirubin,Total 0.2 mg/dl (0.2-1.0); Creatinine Clr Calc Pharmacy 98.2 ml/min; Est GFR (Non-African American) 92.6 ml/min; Magnesium 2.1 mg/dl (1.7-2.4); Total Protein 5.8 gm/dl (6.0-8.3)
[2023-10-10] MEDS: FORMOTEROL 20 MCG/2 ML VIAL NEB SCH (07:22)
[2023-10-10] MEDS: ALBUT/IPRATROP 3MG/0.5MG NEB 3 ML VIAL NEB SCH (07:22)
[2023-10-10] MEDS: FORMOTEROL 20 MCG/2 ML VIAL ONE (07:22)
[2023-10-10 08:10] LABS: Estimated Average Glucose 131 mg/dl; Hemoglobin A1C 6.2 % (4.5-5.6)
[2023-10-10] MEDS: UMECLIDINIUM BROMIDE 62.5MCG/BLISTER 7 PUFFS/INHALER INH SCH (08:21)
[2023-10-10] MEDS: ATORVASTATIN 40 MG TAB PO SCH (08:22)
[2023-10-10] MEDS: ASPIRIN 81 MG ECTAB PO SCH (08:22)
[2023-10-10] MEDS: CYANOCOBALAMIN (B-12) 500 MCG TABLET PO SCH (08:22)
[2023-10-10] MEDS: METOPROLOL TARTRATE 25 MG TAB PO SCH (08:23)
[2023-10-10] MEDS: PANTOprazole 40 MG TAB PO SCH (08:23)
[2023-10-10] MEDS: FUROSEMIDE 40 MG TAB PO SCH (08:24)
[2023-10-10] MEDS: ESCITALOPRAM OXALATE 10 MG TAB PO SCH (08:24)
[2023-10-10] MEDS: ENOXAPARIN INJ 40 MG/0.4 ML SYR SQ SCH (08:25)
--- NOTE | 2023-10-10 08:30 | XRay Report ---
XR chest 1V portable HISTORY: Chest pain, nonspecific COMPARISON: Chest 09/23/2023. FINDINGS: No pneumothorax. The heart remains top normal in size. Chronic interstitial thickening pers ists. There is a left shoulder prosthesis and postoperative changes within the proximal right humerus . Stable blunting left lateral costophrenic sulcus with left basilar scarlike densities. No new focal lung consolidations. No evidence for pulmonary edema. IMPRESSION: Chronic changes as described above which are similar to the prior study. No acute process within the chest. ACT 112: Negative or not required by law. Electronically signed by: Asim Peck M.D. 10/10/2023 8:28 AM
--- NOTE | 2023-10-10 08:30 | XRay Report ---
KUB HISTORY: Generalized abdominal pain COMPARISON: Abdomen and pelvis CTA 04/04/2023. FINDINGS: The bowel gas pattern is unremarkable. There are no dilated loops of small bowel to suggest an obstruction. No renal calculi. No ureteral calculi. Calcifications in the deep pelvis likely rep resent phleboliths. No pneumoperitoneum or pneumatosis. Postoperative changes noted within the left h ip. IMPRESSION: Nonobstructive bowel gas pattern. ACT 112: Negative or not required by law. Electronically signed by: Asim Peck M.D. 10/10/2023 8:29 AM
[2023-10-10] MEDS: PREGABALIN 100 MG CAP PO SCH (08:56)
[2023-10-10] MEDS: AZITHROMYCIN 500 MG in DEXTROSE 5% 250 ML IV STA (08:56)
[2023-10-10] MEDS ORDERED: methylPREDNISolone 125 MG/2 ML VIAL IV SCH (09:00)
[2023-10-10] MEDS ORDERED: DOXYCYCLINE HYCLATE 100 MG CAP PO SCH (09:00)
--- NOTE | 2023-10-10 10:06 | Communication Note ---
Date of Service: October 10, 2023 Evaluated at bedside Reports feeling exhauasted however subjective improvement in breathing noted No longer on bipap, sleeping without resp distress noted EXAM scattered expiratory wheezing in bases, however, chest doesn't sound tight, no accessory muscle use #Acute COPD exacerbation d/c doxy and started Azithromycin for 5 day course continue methylprednisone IV, reval for reduced frequency Budesonide and Formoterol nebs Incruse inhaler this am Duonebs prn rest of plan per hp
[2023-10-10] MEDS: MAGNESIUM CHLORIDE W/CALCIUM 64MG DELAYED REL TAB PO SCH (10:55)
[2023-10-10] MEDS: BUDESONIDE 0.5 MG/2 ML VIAL (PULMICORT) NEB SCH (20:09)
[2023-10-10] MEDS: MONTELUKAST SODIUM 10 MG TABLET PO SCH (20:44)
--- NOTE | 2023-10-10 21:19 | Electrocardiogram Report ---
Test Reason : Blood Pressure : */* mmHG Vent. Rate : 98 BPM Atrial Rate : 98 BPM P-R Int : 170 ms QRS Dur : 80 ms QT Int : 350 ms P-R-T Axes : 42 25 1 degrees QTcB Int : 446 ms Poor data quality, interpretation may be adversely affected Normal sinus rhythm with sinus arrhythmia Low voltage QRS Inferior infarct , age undetermined Abnormal ECG When compared with ECG of 23-Sep-2023 08:09, Vent. rate has increased by 38 bpm Confirmed by David Mehta ([id number]) on 10/10/2023 9:19:10 PM Referred By: REFERRED SELF Confirmed By: David Mehta
[2023-10-11 06:42] LABS: Hematocrit (blood only) 37.9 % (42.0-52.0); Mean Corpuscular Hemoglobin 31.6 pg (25.0-34.0); Mean Corpuscular Hgb Conc 34.3 g/dL (32.0-36.0); Mean Corpuscular Volume 92.2 fL (80.0-100.0); Mean Platelet Volume 10.9 fL (9.4-12.4); Platelet Count 184 K/uL (130-400); RDW Coefficient of Variation 15.2 % (11.5-14.5); RDW Standard Deviation 51.3 fL (36.4-46.3); Red Blood Count 4.11 M/uL (4.70-6.10); White Blood Count 16.44 K/ul (4.8-10.8)
[2023-10-11 07:11] LABS: BUN Creatinine Ratio 32.9 (10-20); Calcium 8.2 mg/dl (8.6-10.3); Creatinine Clr Calc Pharmacy 107.6 ml/min; Est GFR (African American) 111.6 ml/min; Est GFR (Non-African American) 96.3 ml/min; Phosphorus 3.1 mg/dl (2.5-4.9); Potassium 4.3 mmol/L (3.5-5.1)
--- NOTE | 2023-10-11 07:11 | Hospitalist Progress Note ---
Date of Service October 11, 2023 Assessment & Plan (1) Acute on chronic hypoxic respiratory failure: Plan: 67-year-old male with past medical history significant for hyperlipidemia, COPD, obstructive sleep apnea on 2 L oxygen nightly, atherosclerosis of aorta, GERD, obesity, chronic pain syndrome, tobacco use disorder, history of venous thrombosis and embolism, depression and was recently in the hospital, admitted on September 23, 2023 with COVID and COPD exacerbation presents today with shortness of breath and COPD exacerbation. Patient states last 2 days he is feeling short of breath and coughing a lot and bringing phlegm. Because of the cough he has soreness in the chest and also has abdominal discomfort. Chest pain is more when taking deep breath. Denies any fevers. No headache. Vision is okay. Has some runny nose. No sore throat. Appetite is okay. No nausea. No normal bowel and bladder meds. In the ER he was requiring 4 L oxygen but was tachypneic even after dose of steroid and hour-long neb. Currently getting another hour-long neb and placed on BiPAP. He is saying his shortness of breath slightly improved. Acute on chronic hypoxic respiratory failure Acute COPD exacerbation Respiratory bio fire negative Currently requiring BiPAP IV Solu-Medrol 40 mg 3 times daily, DuoNebs [id number] and as needed Continue doxycycline Close monitoring telemetry History of obstructive sleep apnea Says uses oxygen 2 L nightly States no CPAP machine at home CPAP/BiPAP nightly while in the hospital Needs follow-up with sleep lab/pulmonary Hypomagnesia Will replace Consult nephrology as patient has chronic hypomagnesia Elevated LFTs Symptoms present since sometime Last admission liver ultrasound was okay Follow repeat labs Hypertension On metoprolol and Lasix Monitor GERD On Protonix Hyperlipidemia On statin Depression On Lexapro Mild hypocalcemia Follow repeat labs Follow vitamin D levels DVT prophylaxis Lovenox Disposition Telemetry Full code. Admission and Anticipated Discharge Date Admission Date: October 10, 2023 Results & Data Results & Data Vital Signs (Past 12 Hours) Vital Signs Temp Pulse Pulse Resp BP BP Pulse Ox 10/11/23 03:59 36.4 C L 62 16 103/61 98 10/11/23 03:31 60 18 97 10/11/23 00:35 67 16 97 10/11/23 00:03 36.4 C L 67 18 111/69 94 10/10/23 23:09 74 10/10/23 21:07 10/10/23 20:12 75 16 95 10/10/23 19:42 36.6 C 76 16 101/58 L 94 O2 Del Method FiO2 10/11/23 03:59 CPAP 10/11/23 03:31 28 10/11/23 00:35 28 10/11/23 00:03 Room Air 10/10/23 23:09 10/10/23 21:07 Room Air 10/10/23 20:12 Room Air 10/10/23 19:42 Room Air
[2023-10-11 07:55] VITALS: RESP 18
[2023-10-11] MEDS: CHOLECALCIFEROL 125 MCG (5,000 UNITS) TAB PO SCH (08:43)
[2023-10-11] MEDS: AZITHROMYCIN 250 MG TAB PO SCH (08:43)
[2023-10-11] MEDS: predniSONE 20 MG TAB PO SCH (09:06)
[2023-10-11] MEDS ORDERED: predniSONE 20 MG TAB PO STA (10:57)
[2023-10-11 11:01] VITALS: PULSE 61; TEMP 97.9; O2SAT 97
--- NOTE | 2023-10-11 11:14 | Discharge Summary ---
Discharge Summary Date of Service October 11, 2023 Principal Dx & Hospital Course #1 = Principal Diagnosis (1) Acute on chronic hypoxic respiratory failure: Plan Mr. Franks is a 67-year-old male with past medical history significant for hyperlipidemia, COPD, obstructive sleep apnea on 2 L oxygen nightly, atherosclerosis of aorta, GERD, obesity, chronic pain syndrome, tobacco use disorder, history of venous thrombosis and embolism, depression and was recently in the hospital, admitted on September 23, 2023 with COVID and COPD exacerbation presents today with shortness of breath and COPD exacerbation. Patient states he was in a closed room and sanding furniture without a mask, which irritated his throat. He required bipap briefly, but responded robustly to steroids and nebs. On day of discharge, patient ambulating without SOB/YAO. Patient eating well and eager to go home. Patient to continue azithromycin and steroid burst, as well as trelegy inhaler. #Acute on chronic hypoxic respiratory failure resolved #Acute COPD exacerbation resolved Respiratory bio fire negative No longer requiring bipap, no active o2 need Start trelegy on dispo Prednisone 40mg x 4 more days PO Azithromycin course x 3 more days follow up with pcp #obstructive sleep apnea #Nocturnal hypoxia Says uses oxygen 2 L nightly States no CPAP machine at home CPAP/BiPAP nightly while in the hospital Needs follow-up with sleep lab/pulmonary #Hypomagnesia started on slow mag daily #Elevated LFTs Symptoms present since sometime Last admission liver ultrasound was okay Follow repeat labs #Hypertension On metoprolol and Lasix Monitor #GERD On Protonix #Hyperlipidemia On statin #Depression On Lexapro Notes For Next Care Provider Medication Changes From Visit Trelegy inhaler, 1 puff daily Prednisone 40mg x 4 more days Azithromycin x 3 more days Slow mag 1 tablet daily Admission HPI Per Admitting Provider 67-year-old male with past medical history significant for hyperlipidemia, COPD, obstructive sleep apnea on 2 L oxygen nightly, atherosclerosis of aorta, GERD, obesity, chronic pain syndrome, tobacco use disorder, history of venous thrombosis and embolism, depression and was recently in the hospital, admitted on September 23, 2023 with COVID and COPD exacerbation presents today with shortness of breath and COPD exacerbation. Patient states last 2 days he is feeling short of breath and coughing a lot and bringing phlegm. Because of the cough he has soreness in the chest and also has abdominal discomfort. Chest pain is more when taking deep breath. Denies any fevers. No headache. Vision is okay. Has some runny nose. No sore throat. Appetite is okay. No nausea. No normal bowel and bladder meds. In the ER he was requiring 4 L oxygen but was tachypneic even after dose of steroid and hour-long neb. Currently getting another hour-long neb and placed on BiPAP. He is saying his shortness of breath slightly improved. Past medical history. As mentioned above. Past surgical history. Colonoscopy .EGD. Left reverse reconstruction of shoulder joint, left thoracotomy with biopsy of left upper lobe, umbilical hernia repair, right elbow surgery. Social history. . Smokes 0.5 pack a day for 45 years. No alcohol use. No drug use. Family history. Brother had leukemia. Mother had non-Hodgkin's lymphoma. Father heart disorder. Brother had stroke. Admission Exam Per Admitting Provider Constitutional: WD/WN, vitals as above Eyes: PERRL, conjunctivae normal, anicteric sclerae ENMT: external ear and nose normal, oropharynx normal Respiratory: Auscultation: + diminished lung sounds, + rhonchi and + wheezes ( Bilateral, expiratory and inspiratory) Cardiovascular: Rate/Rhythm: regular rate and regular rhythm Vessels: normal peripheral pulses Extremities: + edema ( trace edema BLE) Gastrointestinal (Abdomen): normal bowel sounds, soft, nontender, no hepatosplenomegaly Musculoskeletal: no cyanosis or clubbing, extremities motor strength 5/5 Skin: no rashes, warm and dry Neurologic: PERRL, EOMI, accommodation nl, no face palsy, no dysarthria Psychiatric: A+Ox3, euthymic affect Discharge Exam Constitutional WD/WN, vitals as above Respiratory normal respiratory effort, lungs clear to auscultation Cardiovascular RRR, no murmur, no edema Gastrointestinal (Abdomen) normal bowel sounds, soft, nontender, no hepatosplenomegaly Neurologic PERRL, EOMI, accommodation nl, no face palsy, no dysarthria Updated Medication List Medication Instructions Recorded Confirmed Type pregabalin 100 mg capsule (Lyrica) 100 mg PO BID 10/16/17 10/10/23 History ondansetron 8 mg disintegrating 8 mg PO Q8H PRN Nausea 04/07/22 10/10/23 History tablet clobetasol 0.05 % topical cream 1 applic topical BID PRN Rash 12/29/22 10/10/23 History levalbuterol HCl 1.25 mg/3 mL 1.25 mg inhalation Q4H PRN Wheezing 12/29/22 10/10/23 History solution for nebulization triamcinolone acetonide 0.1 % 1 applic topical BID PRN Rash 12/29/22 10/10/23 History topical cream cyanocobalamin (vitamin B-12) 1,000 mcg PO QAM 03/08/23 10/10/23 History 1,000 mcg tablet (Vitamin B-12) aspirin 81 mg tablet,delayed 81 mg PO QAM #30 tabs 03/11/23 10/10/23 Rx release atorvastatin 80 mg tablet (Lipitor) 80 mg PO DAILY #30 tabs 03/11/23 10/10/23 Rx pantoprazole 40 mg tablet,delayed 40 mg PO BID 30 days #60 tabs 04/06/23 10/10/23 Rx release (Protonix) albuterol sulfate 90 mcg/actuation 2 puff inhalation Q4H PRN 04/26/23 10/10/23 Rx aerosol inhaler Shortness Of Breath Or Wheezing #8.5 grams escitalopram oxalate 10 mg tablet 10 mg PO DAILY 06/13/23 10/10/23 History CPAP Machine #1 ea 06/24/23 08/02/23 Rx CPAP Supplies #1 ea 06/24/23 08/02/23 Rx baclofen 5 mg tablet 5 mg PO TID PRN muscle spasms 08/02/23 10/10/23 History metoprolol tartrate 25 mg tablet 12.5 mg (1/2 x 25 mg) PO BID #30 08/09/23 10/10/23 Rx tabs codeine 10 mg-guaifenesin 100 mg/5 5 ml PO Q4H PRN Cough 10/10/23 10/10/23 History mL Syrup furosemide 40 mg tablet 40 mg PO QAM Fluid accumulation, 10/10/23 10/10/23 History weight gain loperamide 2 mg tablet 4 mg PO TID PRN Diarrhea 10/10/23 10/10/23 History montelukast 10 mg tablet 10 mg PO HS 10/10/23 10/10/23 History prochlorperazine maleate 5 mg 5 mg PO Q6H PRN NAUSEA/VOMITING 10/10/23 10/10/23 History tablet azithromycin 250 mg tablet 250 mg PO QAM #3 tabs 10/11/23 Rx fluticasone fur. 100 mcg-umeclid 1 inh inhalation DAILY #60 ea 10/11/23 Rx 62.5 mcg-vilant 25 mcg inhalat.powder (Trelegy Ellipta) magnesium chloride 64 mg 64 mg PO DAILY #30 tabs 10/11/23 Rx (magnesium chloride) tablet,delayed release (Mag 64) prednisone 20 mg tablet 40 mg (2 x 20 mg) PO DAILY 4 days 10/11/23 Rx #8 tabs Hospital Stay Data Pending Results Patient Have Any Pending Studies at Discharge: No Discharge Instructions Given to Patient (Per Discharging Provider) You were admitted for shortness of breath after sanding in a small room. You were found to be in a COPD exacerbation You responded well to steroids and nebulized treatments. You will be sent home with the following: -Prednisone 40mg (2x20mg tablets) in the morning until course complete -Azithromycin 250mg daily in the morning until course complete -Trelegy inhaler, 1 inhalation in the morning You were noted to have low magnesium, please consider daily supplement like one prescribed -Slow Mag 1 tablet in morning Total Time Total Time Spent Total Time Spent (In Minutes): 45
[2023-10-11 12:08] VITALS: BP 103/61
== END 2023-10-11 13:02 | disposition home or self-care (01) | DRG 190 ==
LOC: ED 22:27 → 2S 10-10 01:52

== ENCOUNTER 2023-10-27 08:14 | Inpatient (IN) ==
--- NOTE | 2023-10-19 15:55 | Anesthesiology Consultation ---
Date of Service October 19, 2023 Assessment & Plan Chart Review -Pt saw PCP 10/18/23: "Patient was stable from a respiratory standpoint following short hospitalization for COPD exacerbation. He was completed his antibiotics and steroids. No changes to his chronic Trelegy and p.r.n. albuterol. Continue Singulair per Pulmonology. Azithromycin sent to the pharmacy to be used as a rescue. Major concern in the office today is swelling and pain at the right elbow. Given history of recent septic arthritis requiring week long hospitalization and 4 weeks of IV antibiotics it was imperative he start the empiric antibiotics prescribed by Adam at home and follow up with [facility] as scheduled on 10/19/2023. No fevers, chills, other signs of systemic infection at this time. If any of these develop he will present to the Emergency Room for further evaluation." Infectious Disease screening: Per PAT nursing assessment on 10/19/23, No known infectious disease contacts in past 10 days or current infectious disease symptoms. No recent travel outside the country. Pt did test positive for COVID during admission 09/22-09/25/23 [facility] (COVID+ and COPD exacerbation); pt states no longer having COVID sx. Per PCP visit above, pt respiratory status stable. -PT had R elbow I&D 08/05/23: GA: MAC#4, ETT#7.5HiLo, Gr View 1; tolerated anesthesia well History Surgery Operation Date: 10/27/23 10:05 Proposed Procedures p Right Elbow Arthrotomy, Irrigation and Debridement - Bradley Willis MD s Radial Head Screw Removal - Bradley Willis MD Height/Weight Height: 5 ft 6 in Weight: 93.44 kg Allergies Allergy/AdvReac Type Severity Reaction Status Date / Time No Known Allergies Allergy Verified 10/19/23 14:08 Medications Home Medications Medication Instructions Recorded Confirmed Last Taken pregabalin 100 mg capsule (Lyrica) 100 mg PO BID 10/16/17 10/19/23 10/09/23 08:00 ondansetron 8 mg disintegrating 8 mg PO Q8H PRN Nausea 04/07/22 10/19/23 06/12/23 tablet clobetasol 0.05 % topical cream 1 applic topical BID PRN Rash 12/29/22 10/19/23 Unknown levalbuterol HCl 1.25 mg/3 mL 1.25 mg inhalation Q4H PRN Wheezing 12/29/22 10/19/23 Unknown solution for nebulization triamcinolone acetonide 0.1 % 1 applic topical BID PRN Rash 12/29/22 10/19/23 Unknown topical cream cyanocobalamin (vitamin B-12) 1,000 mcg PO QAM 03/08/23 10/19/23 10/09/23 1,000 mcg tablet (Vitamin B-12) aspirin 81 mg tablet,delayed 81 mg PO QAM #30 tabs 03/11/23 10/19/23 10/09/23 release pantoprazole 40 mg tablet,delayed 40 mg PO BID 30 days #60 tabs 04/06/23 10/19/23 10/09/23 08:00 release (Protonix) albuterol sulfate 90 mcg/actuation 2 puff inhalation Q4H PRN 04/26/23 10/19/23 Unknown aerosol inhaler Shortness Of Breath Or Wheezing #8.5 grams escitalopram oxalate 10 mg tablet 10 mg PO QAM 06/13/23 10/19/23 10/09/23 CPAP Machine #1 ea 06/24/23 08/02/23 Unknown CPAP Supplies #1 ea 06/24/23 08/02/23 Unknown metoprolol tartrate 25 mg tablet 12.5 mg (1/2 x 25 mg) PO BID #30 08/09/23 10/19/23 10/09/23 08:00 tabs furosemide 40 mg tablet 40 mg PO QAM Fluid accumulation, 10/10/23 10/19/23 10/09/23 weight gain loperamide 2 mg tablet 4 mg PO TID PRN Diarrhea 10/10/23 10/19/23 Unknown montelukast 10 mg tablet 10 mg PO HS 10/10/23 10/19/23 10/08/23 prochlorperazine maleate 5 mg 5 mg PO Q6H PRN NAUSEA/VOMITING 10/10/23 10/19/23 Unknown tablet fluticasone fur. 100 mcg-umeclid 1 inh inhalation DAILY #60 ea 10/11/23 10/19/23 Unknown 62.5 mcg-vilant 25 mcg inhalat.powder (Trelegy Ellipta) atorvastatin 80 mg tablet (Lipitor) 80 mg PO QAM 10/19/23 10/19/23 Unknown cefdinir 300 mg capsule 300 mg PO BID 10/19/23 10/19/23 Unknown magnesium chloride 64 mg 64 mg PO QAM 10/19/23 10/19/23 Unknown (magnesium chloride) tablet,delayed release (Mag 64) Past Medical History Medical History (Updated 10/20/23 @ 13:11 by Mirta Dorsey PA-C) Arthritis Asthma required rescue inhaler "just the other day" Cardiac murmur no significant valve disease per 10/03/23 ECHO Chronic back pain "hx broken back"no back surgery Chronic diastolic heart failure PCP monitoring; ECHO 10/03/23 with nl EF and Gr I DD. 'no changes to medications needed at this time. Continue lasix daily' per PCP Chronic obstructive pulmonary disease 'group D' per pulm. Pt admitted [facility] for COPD exacerbation 10/08-10/11/23; admitted [facility] for COPD exacerbation (also had COVID at the time): 09/22- 4; admitted for COPD exacerbation 05/17-05/21/23 Chronic respiratory failure On oxygen at night in the past - but no longer needs per patient . Per 10/18/23 PCP note, 'pt stable from a respiratory standpoint' Cigarette smoker GERD (gastroesophageal reflux disease) Histoplasmosis 2002- treated History of COVID-19 Admitted [facility] 09/22-09/25/23 COVID+ and COPD exacerbation; pt states no longer having COVID sx Hx of migraines Hx pulmonary embolism 2016 developed after a bad fall (was on coumadin for 1 year) Hyperglycemia Ha1c 6.2% 10/10/23 labs; no mention of DMII by PCP Hyperlipidemia Hypertension Irregular cardiac rhythm pt noted to have 25beats of Nonsustained VTach vs PAT day of discharge (08/09/23) [facility]; pt denied sx; started on metoprolol and ordered Zio monitor and Cardio referral Obesity Peripheral vascular disease Pneumothorax Hx- complication from pain injection- resolved Sleep apnea 2L O2 HS (no other device) 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 Saw vascular: started on [id number] and Eliquis. Eliquis was then D/C by pulmonary 04/2023. Pt had normal f/u chest CTA 06/20/23 Past Family History Family History Father Heart disease Hypertension Brother Heart disease Cancer Hypertension Stroke Mother Cancer Other Leukemia No family history of adverse response to anesthesia No family history of bleeding disorder Non-Hodgkin lymphoma Denies family history of Hearing loss Asthma Past Surgical History Surgical History (Updated 10/20/23 @ 12:22 by Mirta Dorsey PA-C) H/O elbow surgery R radial head ORIF prior to 2009; R elbow I&D 08/05/23: GA: MAC#4, ETT#7.5HiLo, Gr View 1 H/O exploratory thoracotomy "Left thoracotomy wedge biopsy of left upper lobe with excision of lesion or nodule & frozen section 2002" H/O hernia repair [facility] incarcerated supraumbilical hernia repair open no mesh 02/17/01 H/O hernia repair H/O total hip arthroplasty left History of esophagogastroduodenoscopy (EGD) History of hand surgery right/left History of open reduction and internal fixation (ORIF) procedure right shoulder History of placement of chest tube History of sinus surgery History of total replacement of left shoulder joint Hx of colonoscopy Left femoral shaft fracture Dutch placed>hardware intact Social History Smoking Status: Current every day smoker tobacco type: cigarettes Smoking cigarettes per day: 10 cig daily>advised Do You Dip or Chew Tobacco: No Hx Alcohol Use: No Alcohol type: hard liquor alcohol intake frequency: other Hx Substance Use: No substance use type: does not use Lab Results Anesthesia Preop Results Results Anesthesia Widget: WBC 16.44 K/ul (4.8-10.8) H 10/11/23 Hgb 13.0 g/dl (14.0-18.0) L 10/11/23 Hct 37.9 % (42.0-52.0) L 10/11/23 Plt 184 K/uL (130-400) 10/11/23 Na 139 mmol/L (136-145) 10/11/23 K 4.3 mmol/L (3.5-5.1) 10/11/23 Cl 107 mmol/L (98-107) 10/11/23 CO2 27 mmol/L (21-32) 10/11/23 BUN 23 mg/dl (6-23) 10/11/23 Creat 0.70 mg/dl (0.6-1.4) 10/11/23 Glucose Level 140 mg/dl (70-99(Fasting)) H 10/11/23 PT 10.7 Seconds (9.0-12.0) 10/09/23 PTT 25 Seconds (21-31) 09/23/23 INR 1.0 (0.9-1.1) 10/09/23 HA1c 6.2 % (4.5-5.6) H 10/10/23 Coronavirus OC43 (PCR) Not Detected (NotDetected) 10/09/23 Coronavirus HKU1 (PCR) Not Detected (NotDetected) 10/09/23 Coronavirus 229E (PCR) Not Detected (NotDetected) 10/09/23 COVID-19 PCR Not Detected (NotDetected) 10/09/23 Coronavirus NL63 (PCR) Not Detected (NotDetected) 10/09/23 Testing Electrocardiogram Date: 10/09/23 NSR with sinus arrhythmia, rate: 98bpm. Low voltage QRS. inferior infarct, age undetermined. Compared to 09/23/23, Vent. rate has decreased by 38bpm (inferior Q waves present on 06/14/23 EKG also) Chest X-Ray Date: 10/09/23 Findings: + NAD No pneumothorax. The heart remains top normal in size. Chronic interstitial thickening persists. There is a left shoulder prosthesis and postoperative changes within the proximal right humerus. Stable blunting left lateral costophrenic sulcus with left basilar scarlike densities. No new focal lung consolidations. No evidence for pulmonary edema. Echocardiogram Date: 10/03/23 EF: 55-59% RWMA: + none Valvular Disease: + no significant valvular disease Mild cLVH Gr I DD. Mild aortic valve sclerosis. No . Other Testing 09/07/23 Zio monitor: 11 day study CONCLUSIONS: Duration: 11 days, 5 hours Patient had a min HR of 52 bpm, max HR of 158 bpm, and avg HR of 73 bpm. Predominant underlying rhythm was Sinus Rhythm. 401 Supraventricular Tachycardia runs occurred, the run with the fastest interval lasting 5 beats with a max rate of 158 bpm, the longest lasting 11.8 secs with an avg rate of 107 bpm. Isolated SVEs were occasional (2.2%, 39530), SVE Couplets were occasional (1.2%, 6828), and SVE Triplets were rare (<1.0%, 1607). Isolated VEs were rare (<1.0%, 6787), VE Couplets were rare (<1.0%, 649), and VE Triplets were rare (<1.0%, 5). Frequency of supraventricular tachycardia not well defined with limited rhythm strips available for review. Some rhythm strips appear to be sinus tachycardia with PACs. Isolated symptomatic event correlates with normal sinus rhythm. Chest CTA 06/20/23: FINDINGS VASCULAR: The thoracic aorta is patent with no evidence of dissection. There is mild atherosclerosis of thoracic aorta. Aortic arch branching is conventional. Major arch vessels are patent to the extent visualized. Pulmonary artery is normal in caliber. Sinus of Valsalva measures 3.0 x 3.1 x 3.3 cm. Ascending aorta measures 2.9 cm in maximum dimension. Descending aorta measures 2.6 cm in maximum dimension. The visualized abdominal aorta is patent and normal in caliber. Celiac artery is patent. Superior mesenteric artery is patent. Bilateral renal arteries are patent. Chest: Emphysema. No focal airspace consolidation or suspicious pulmonary nodules. Central airways are patent. Scattered atelectasis/scarring. There is no pleural effusion. There is no pericardial effusion. Moderate coronary artery calcification. No pathologically enlarged thoracic lymph nodes. Upper abdomen: Hepatic steatosis. Osseous structures: No suspicious lytic or blastic lesions. Degenerative disc disease in thoracic spine is moderate. IMPRESSION 1. No evidence of thoracic aortic aneurysm. 2. Emphysema
[2023-10-27] MEDS: LR 15ML/HR IV SCH (08:55)
[2023-10-27] MEDS: ACETAMINOPHEN 500 MG TAB PO SCH (08:56)
[2023-10-27] MEDS: LR 60ML/HR IV SCH (08:56)
[2023-10-27] MEDS ORDERED: DEXAMETHASONE SOD INJ 4 MG/ML VIAL ONE (09:26)
[2023-10-27] MEDS ORDERED: PROPOFOL IV EMULSION 10 MG/ML 20 ML VIAL IV ONE (09:26)
[2023-10-27] MEDS ORDERED: ONDANSETRON INJ 2 MG/ML 2 ML VIAL ONE (09:26)
[2023-10-27] MEDS ORDERED: LIDOCAINE 2% 2 ML VIAL/AMP(20MG/ML) INFIL ONE (09:26)
[2023-10-27] MEDS ORDERED: MIDAZOLAM HCL 1 MG/ML 2ML VIAL ONE (09:27)
[2023-10-27] MEDS ORDERED: ATROPINE SULFATE 0.1 MG/ML 10ML SYR IV PRN (09:27)
[2023-10-27] MEDS ORDERED: HYDROmorphone INJ 1 MG/ML SYRINGE IV PRN (09:27)
[2023-10-27] MEDS ORDERED: ROPIVACAINE 0.5% 5 MG/ML 30 ML VIAL ONE (09:27)
[2023-10-27] MEDS ORDERED: ePHEDrine sulfate 50 MG/ML AMP IV PRN (09:27)
[2023-10-27] MEDS ORDERED: ONDANSETRON INJ 2 MG/ML 2 ML VIAL IV PRN ×2 (09:27→14:14)
[2023-10-27] MEDS ORDERED: fentaNYL citrate PF 100 MCG/2 ML VIAL ONE ×3 (09:27→15:09)
[2023-10-27] MEDS ORDERED: LIDOCAINE 2% LOCAL 50 ML VIAL ONE (09:32)
--- NOTE | 2023-10-27 10:24 | History & Physical Bridge Note ---
Date of Service October 27, 2023 History & Physical Bridge Note I have examined the patient, reviewed the History & Physical and in the interval since the performance of the History & Physical I have noted the following changes of clinical significance: no changes noted
[2023-10-27] MEDS ORDERED: ROCURONIUM BROMIDE 10 MG/ML 5 ML VIAL IV ONE ×2 (11:18)
[2023-10-27] MEDS: ceFAZolin 2000MG 2,000 MG/15 ML SYR IV SCH (12:00)
[2023-10-27] MEDS: FLUCONAZOLE 200 MG/100 ML BAG IV SCH (12:05)
--- NOTE | 2023-10-27 12:51 | Fluoroscopy Report ---
FL elbow RT 2V CLINICAL HISTORY: RADIAL HEAD SCREW REMOVAL, XRAY STANDBY COMPARISON STUDY: MRI right elbow 10/21/2023 FLUOROSCOPY TIME: 5.2 seconds FLUOROSCOPY IMAGES: 2 EXPOSURE DOSE: 0.22 mGy FINDINGS: Screw tracts noted within the radial head at the site of prior screw removal. Expected post operative soft tissue swelling with deep tissue air. 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 IMPRESSION: Fluoroscopic assistance as above. ACT 112: Negative or not required by law. Electronically signed by: Colby Mata M.D. 10/27/2023 12:50 PM
[2023-10-27] MEDS ORDERED: HYDROmorphone INJ 2 MG/ML SYR/VIAL ONE (12:55)
[2023-10-27] MEDS ORDERED: GLYCOPYRROLATE 0.2 MG/ML VIAL ONE (13:00)
[2023-10-27] MEDS ORDERED: NEOSTIGMINE METHYLSULFATE 1 MG/ML 10ML VIAL ONE (13:00)
--- OUTSIDE RECORDS SUMMARY | 2023-10-27 13:02 | External Medical Summary | Summary of Care ---
Author Name Unknown Organization [facility] Address [address] [place] [address] Phone [phone] Care Team Providers Care Inspector Receiving Name Role Phone Ajit Moreno MD Primary Care Provider [phone] Reason for Visit * Reason Comments [facility]: Maintenance Encounter Details Date Type Department Care Team (Late st Contact Info) Description 09/28/2023 1:30 PM EDT Home Visit [facility], [facility] [address] [facility] [place] [address] Rosa Parra RN [address] [place] [address] Allergies Active Allergy Reactions Criticality Noted Date Comments Fluticasone High 02/27/2020 Other reaction(s): lightheadedness and nausea Umeclidinium High 02/27/2020 Other reaction(s): lightheadedness and nausea Vilanterol High 02/27/2020 Other reaction(s): lightheadedness and nausea documented as of this encounter (statuses as of 10/24/2023) Medications Medication Sig Dispensed Refills Start Date End Date Status Clobetasol Propionate 0.05 % External Ointment (Temovate)Indicatio ns:Stasis dermatitis of both legs Apply 2x daily to rash on legs until resolved, then as needed when flaring 60 g 2 Active Respiratory Therapy Supplies (NEBULIZER/TUBING/M OUTHPIECE) KIT Use as directed 1 Kit 5 9 09/28/19 24 Discontinue d(Refill) Meclizine HCl 12.5 MG Oral Tablet (Antivert)Indicatio ns:Dizziness TAKE ONE TABLET BY MOUTH THREE TIMES DAILY NEEDED for dizziness 30 Tablet 2 3 09/28/19 24 Discontinue d(Refill) Aspirin 81 MG Oral Tablet Chewable (Aspirin 81) Take 1 Tablet by mouth in the morning. 09/28/19 24 Discontinue d(Refill) Atorvastatin Calcium 80 MG Oral Tablet (Lipitor)Indication s:Atherosclerosis of aorta (HCC) Take 1 Tablet by mouth in the morning. 90 Tablet 2 4 09/28/19 24 Discontinue d(Refill) Escitalopram Oxalate 10 MG Oral Tablet (Lexapro)Indication s:Mood swings Take 1 Tablet by mouth in the morning. 90 Tablet 2 4 09/28/19 24 Discontinue d(Refill) Levalbuterol HCl 1.25 MG/3ML Inhalation Nebulization Solution (Xopenex)Indication s:COPD, group C, by GOLD 2017 classification ([facility]) Inhale 1 Ampule via nebulizer every 4 hours as needed for Wheezing. 72 mL 4 09/28/19 24 Discontinue d(Refill) Pantoprazole Sodium 40 MG Oral Tablet Delayed Release (Protonix)Indicatio ns:Gastroesophageal reflux disease with esophagitis, unspecified whether hemorrhage Take 1 Tablet by mouth in the morning and 1 Tablet before bedtime. 180 Tablet 1 4 09/28/19 24 Discontinue d(Refill) Trelegy Ellipta 200-62.5-25 MCG/ACT Aerosol Powder Breath Activated (Fluticasone-Umecli dinium-Vilanterol)I ndications:COPD, group C, by GOLD 2017 classification ([facility]) Inhale 1 Puff by mouth in the morning. 60 Blister Dosing Unit 10 4 09/28/19 24 Discontinue d(Refill) Furosemide 40 MG Oral Tablet (Lasix)Indications: Bilateral lower extremity edema Take 1 Tablet by mouth in the morning. for fluid accumulation or weight gain. 20 Tablet 4 10/21/19 24 Discontinue d(Refill) Ondansetron HCl 8 MG Oral Tablet (Zofran)Indications :Nausea without vomiting Take 1 Tablet by mouth every 8 hours as needed for Nausea. 20 Tablet 4 09/28/19 24 Discontinue d(Refill) Triamcinolone Acetonide 0.1 % External Ointment (Aristocort)Indicat ions:Stasis dermatitis of both legs Apply 2x daily to rash on lower legs when flaring (see printed checkout sheet) 80 g 2 4 09/28/19 24 Discontinue d(Refill) Cyanocobalamin 1000 MCG Oral Tablet (Cyanocobalamin) Take 1 Tablet by mouth in the morning. 90 Tablet 3 4 09/28/19 24 Discontinue d(Refill) Albuterol Sulfate HFA 108 (90 Base) MCG/ACT Inhalation Aerosol SolutionIndications :Pulmonary emphysema, unspecified emphysema type ([facility]) INHALE TWO PUFFS BY MOUTH EVERY 4 HOURS NEEDED FOR SHORTNESS OF BREATH or wheezing 8.5 g 5 4 09/28/19 24 Discontinue d(Refill) predniSONE 20 MG Oral Tablet (Deltasone) Take 2 Tablets by mouth daily as needed (copd exacerbation). X 5 days when directed 09/28/19 24 Discontinue d(Refill) Azithromycin 250 MG Oral Tablet (Zithromax Z-Miguelito) Take 1 Tablet by mouth in the morning. Take 2 tabs on day one then 1 tab daily on day 2-5 for copd rescue kit. 09/28/19 24 Discontinue d(Refill) Baclofen 5 MG Oral Tablet (Lioresal) Take 1 Tablet by mouth 3 times a day as needed for Muscle spasms. 30 Tablet 1 4 09/28/19 24 Discontinue d(Refill) predniSONE 20 MG Oral Tablet (Deltasone)Indicati ons:COPD, group C, by GOLD 2017 classification ([facility]) Take 2 Tablets by mouth in the morning for 5 days. 10 Tablet 4 10/21/19 24 cefTRIAXone Sodium 2 GM Intravenous Solution Reconstituted Administer intravenously daily. 09/28/19 24 Discontinue d(Medicatio n List Clean Up) Probiotic Gummies 30 MG Oral Tablet Chewable Take 2 Tablets by mouth in the morning. 08/26/20 24 Discontinue d(Medicatio n List Clean Up) LORazepam 0.5 MG Oral Tablet (Ativan)Indications :Anxiety Take 1 Tablet by mouth every 6 hours as needed for Agitation. 20 Tablet 4 09/28/19 24 Discontinue d(Refill) Prochlorperazine Maleate 5 MG Oral Tablet (Compazine)Indicati ons:Nausea without vomiting Take 1 Tablet by mouth every 6 hours as needed for Nausea. 30 Tablet 4 09/28/19 24 Discontinue d(Refill) Loperamide HCl 2 MG Oral Tablet (Imodium A-D)Indications:Omayra rrhea, unspecified type Take 2 Tablets by mouth 3 times a day as needed for Diarrhea for up to 14 days. 90 Tablet 4 09/28/19 24 Discontinue d(Refill) Pregabalin 100 MG Oral Capsule (Lyrica)Indications :Chronic pain syndrome TAKE 1 CAPSULE BY MOUTH IN THE MORNING AND AT BEDTIME 60 Capsule 2 4 09/28/19 24 Discontinue d(Refill) Metoprolol Tartrate 25 MG Oral Tablet (Lopressor) Take 0.5 Tablets by mouth in the morning and 0.5 Tablets before bedtime. 60 Tablet 3 4 09/28/19 24 Discontinue d(Refill) documented as of this encounter (statuses as of 10/24/2023) Active Problems Problem Noted Date Diagnosed Date Severe obesity (BMI 35.0-39.9) with comorbidity 05/27/2023 Food insecurity 05/16/2023 Overview: Per [facility] Protocol Personal history of other venous [...] Classes - YA Class D - Inhaled Oyzavjeojohhgu-FTWO-KBPZ Combination Inhaler (Cliffllegy) Remote Patient Monitoring Vendor: [...] as of this encounter (statuses as of 10/24/2023) Resolved Problems Problem Noted Date Diagnosed Date [...] LUNG, NOT ELSEWHERE CLASSIFIED 06/12/2002 09/14/2018 CHEST [id number] 04/09/200209/2018 ABN FD-INTRATHOR ORG NEC-akbar nodule 03/06/2002 [...] as of this encounter (statuses as of 10/24/2023) Immunizations Name Administration Dates Next Due COVID-19 mRNA, LNP-s, No Pre serve, 2-Dose Series (FonJax) 05/22/2020,05/01/2020 Seasonal Influenza, PF, 6 M & [...] 04/26/2023 Does the household have a re lar source of income? (Household - for ages [...] Sign Reading Time Taken Comments Blood Pressure 124/80 09/28/2023 1:02 PM EDT Pulse 70 09/28/2023 1:02 PM EDT Temperature - - Respiratory Rate 18 09/28/2023 1:02 PM EDT Oxygen Saturation 95% 09/28/2023 1:02 PM EDT Inhaled Oxygen Concentration - - Weight - - Height - - Body Mass Index - - documented in this encounter Progress Notes * Rosa Parra RN - 09/28/2023 1:30 PM EDT [facility] Visit Date: 09/28/2023 Time: 10:11 AM Name: Florentin Franks : 1955 Current Concerns: Pt seen for BONNIE #1 Admitted to [facility] 09/22 - 09/25/23 for Covid-19, COPD exacerbation, hypomagnesemia, diarrhea, elevatedLFT's, HTN, GERD, HLD, anxiety Pt discharged home on Azithromycin and course of Dexamethasone Also instructed to take Lasix daily while on steroids Pt to f/u with PCP for further f/u of leg swelling and need for daily lasix Today leg swelling is trace of BLE Pt reports Coughing up green mucus Still having SOB above baseline Continues on abx and dexathemethasone Lungs with scattered rales and wheezes Still having diarrhea - taking Imodium and "it helps" Reports eating and drinking WNL Physical Exam: BP 124/80 | Pulse 70 | Resp 18 | SpO2 95% Pain 0 Physical Exam Constitutional: General: He is not in acute distress. Cardiovascular: Rate and Rhythm: Normal rate and regular rhythm. Pulses: Normal pulses. Heart sounds: Normal heart sounds. Pulmonary: Effort: Pulmonary effort is normal. Breath sounds: Wheezing present. Abdominal: Palpations: Abdomen is soft. Musculoskeletal: Right lower leg: Edema (trace) present. Left lower leg: Edema (trace) present. Skin: General: Skin is warm and dry. Neurological: Mental Status: He is alert and oriented to person, place, and time. Problems/Symptoms: Review of Systems Constitutional: Negative. HENT: Negative. Eyes: Negative. Respiratory: Positive for cough (chronic, at baseline, smokes, green mucus) and shortness of breath(YAO). Cardiovascular: Positive for leg swelling. Gastrointestinal: Negative. Genitourinary: Negative. Musculoskeletal: Positive for back pain. Skin: Negative. Neurological: Negative. Psychiatric/Behavioral: Negative. Medication Reconciliation: (See medication list) Does patient take medications as ordered: Yes Patient Well Being: PHQ2/9: No questionnaires available. No change in living situation Denies falls [facility]-10 Completed this Visit: [facility] Reason Completed: Status post ED visit/hospital admission [facility]-10 Interventions: Fall education provided, reviewed/provided Fall brochure Advanced Care Planning: No documentation, acp on file. Reinforcement/Education: COPD: Pt instructed to: -Call with [...] Keep all appts as scheduled and attend Technical Sales Consultant is SWATHI-Dr Irwin- next appt 10/31/23 Complete entire course of steroids and abx Mucinex q 12 hours Home Interventions Provided: Reinforced current Plan of Care, including self-management and medication regimen Patient's 'Red Flags': Increased SOB Yellow or green mucus LE edema Patient Needs to Remember: Call [facility] at with any new or worsening health concerns or problems, red flag symptoms. Referrals Needed: Other none Follow Up: Is there cellular connectivity/connectivity in the home? Yes Does the patient have internet in the home? Yes Patient encouraged to call the intake phone number for all urgent but not emergent issues. Is the [facility] within the last 30 days? No, Assess appropriateness for upcoming telehealth visits. Cancel telehealth visits & schedule home visit with care cleaning team member(s)as indicated. Provider is in agreement with Plan of Care: Yes Scheduled to follow up with patient in 3 weeks. Rosa Parra RN 09/28/2023 10:11 AM documented in this encounter Plan of Treatment Upcoming Encounters Date Type Department Care Team (Late st Contact Info) Description 11/18/2023 2:30 PM EDT Home Visit [facility] at [facility] [address] [place] [id number] Rosa Parra RN [address] [place] [address] Scheduled Procedures Name Priority Associated Diagnoses Date/Ti me COLONOSCOPY FLEXIBLE PROXIMAL DIAGNOSTIC Recall History of colon polyps Health Maintenance Due Date Last Done Comments DISCUSS TOBACCO CESSATION (REFER TO SMARTSET #1005) 1955 Alpha-1 Antitrypsin 12/04/1971 Cologuard 1998 Fecal Occult Blood Test 1998 Sigmoidoscopy 1998 *ADVANCE DIRECTIVE NOT ON FILE 07/22/2018 *BISPHONATE OR OTHER ACCEPTABLE MEDICATION NEEDED FOR OSTEOPOROSIS (REFER TO SMARTSET #9827) 06/29/2022 Adult Wellness Visit 03/11/2023 03/11/2022, 08/31/2021, 08/26/2020 COVID-19 Vaccine ( season) 2023 05/22/2020, 05/01/2020 Influenza Vaccine (FLU shot) (#1) 2023 01/08/2022, [...] ASSESSMENT COMPLETED IN PAST YEAR FOR COPD 10/20/2024 10/21/2023 Colonoscopy 03/18/2026 03/18/2021, 02/0 10/2021, 12/18/2019, Additional [...] D LEVEL ONCE IN A LIFETIME-USE SMARTSET# [id number] Completed 06/16/2021, 05/03/2014 AAA Screening Completed 09/24/2022, [...] 9:12 AM 05/09/2003 10:12 AM Care Teams Inspector Receiving Relationship Specialty Start Date End Date June, Ajit Syl[place] MD [address] [place] [address] PCP - General Family Medicine 03/11/22 documented as of this encounter
--- OUTSIDE RECORDS SUMMARY | 2023-10-27 13:02 | External Medical Summary | Summary of Care ---
Author Name Unknown Organization [facility] Address [address] [place] [address] Phone [phone] Care Team Providers Care Leather Coater Name Role Phone Ajit Bush MD Primary Care Provider [phone] Reason for Visit * Reason Onset Date Comments Medication Refill 10/26/2023 Encounter Details Date Type Department Care Team (Late st Contact Info) Description 10/26/2023 Refill [facility], [facility] [address] [place] [address] Rosa Parra RN [address] [place] [address] COPD, group D, by GOLD 2017 classification ([facility]) Allergies Active Allergy Reactions Criticality Noted Date Comments Fluticasone High 02/27/2020 Other reaction(s): lightheadedness and nausea Umeclidinium High 02/27/2020 Other reaction(s): lightheadedness and nausea Vilanterol High 02/27/2020 Other reaction(s): lightheadedness and nausea documented as of this encounter (statuses as of 10/26/2023) Medications Medication Sig Dispensed Refills Start Date End Date Status Clobetasol Propionate 0.05 % External Ointment (Temovate)Indicatio ns:Stasis dermatitis of both legs Apply 2x daily to rash on legs until resolved, then as needed when flaring 60 g 08/27/2021 Active Albuterol Sulfate HFA 108 (90 Base) MCG/ACT Inhalation Aerosol SolutionIndications :Pulmonary emphysema, unspecified emphysema type ([facility]) INHALE TWO PUFFS BY MOUTH EVERY 4 HOURS NEEDED FOR SHORTNESS OF BREATH or wheezing 8.5 g 5 09/29/2023 Active Aspirin 81 MG Oral Tablet Chewable (Aspirin 81) Take 1 Tablet by mouth in the morning. 90 Tablet 3 09/29/2023 Active Atorvastatin Calcium 80 MG Oral Tablet (Lipitor)Indication s:Atherosclerosis of aorta ([facility]) Take 1 Tablet by mouth in the morning. 90 Tablet 3 09/29/2023 Active Baclofen 5 MG Oral Tablet (Lioresal) Take 1 Tablet by mouth 3 times a day as needed for Muscle spasms. 30 Tablet 3 09/29/2023 Active Cyanocobalamin 1000 MCG Oral Tablet (Cyanocobalamin) Take 1 Tablet by mouth in the morning. 90 Tablet 3 09/29/2023 Active Escitalopram Oxalate 10 MG Oral Tablet (Lexapro)Indication s:Mood swings Take 1 Tablet by mouth in the morning. 90 Tablet 3 09/29/2023 Active Levalbuterol HCl 1.25 MG/3ML Inhalation Nebulization Solution (Xopenex)Indication s:COPD, group C, by GOLD 2017 classification ([facility]) Inhale 1 vial via nebulizer every 4 hours as needed for Wheezing. 75 mL 09/29/2023 Active Loperamide HCl 2 MG Oral Tablet (Imodium A-D)Indications:Omayra rrhea, unspecified type Take 2 Tablets by mouth 3 times a day as needed for Diarrhea. 90 Tablet 3 09/29/2023 Active LORazepam 0.5 MG Oral Tablet (Ativan)Indications :Anxiety Take 1 Tablet by mouth every 6 hours as needed for Agitation. 20 Tablet 3 09/29/2023 Active Meclizine HCl 12.5 MG Oral Tablet (Antivert)Indicatio ns:Dizziness Take 1 Tablet by mouth 3 times a day as needed for Dizziness. 20 Tablet 09/29/2023 Active Metoprolol Tartrate 25 MG Oral Tablet (Lopressor) Take 1/2 Tablet by mouth in the morning and 1/2 Tablet before bedtime. 60 Tablet 3 09/29/2023 Active Ondansetron HCl 8 MG Oral Tablet (Zofran)Indications :Nausea without vomiting Take 1 Tablet by mouth every 8 hours as needed for Nausea. 20 Tablet 3 09/29/2023 Active Pantoprazole Sodium 40 MG Oral Tablet Delayed Release (Protonix)Indicatio ns:Gastroesophageal reflux disease with esophagitis, unspecified whether hemorrhage Take 1 Tablet by mouth in the morning and 1 Tablet before bedtime. 180 Tablet 3 09/29/2023 Active predniSONE 20 MG Oral Tablet (Deltasone) Take 2 Tablets by mouth daily as needed for copd exacerbation for 5 days when directed 10 Tablet 3 09/29/2023 Active Additional Information Patient not taking.Reported on 10/18/2023 Pregabalin 100 MG Oral Capsule (Lyrica)Indications :Chronic pain syndrome Take 1 Capsule by mouth in the morning and 1 Capsule before bedtime. 60 Capsule 2 09/29/2023 Active Prochlorperazine Maleate 5 MG Oral Tablet (Compazine)Indicati ons:Nausea without vomiting Take 1 Tablet by mouth every 6 hours as needed for Nausea. 30 Tablet 3 09/29/2023 Active Additional Information Patient not taking.Reported on 10/21/2023 Nebulizer/Tubing/Mo uthpiece Kit Use as directed 1 Kit 5 09/29/2023 Active Trelegy Ellipta 200-62.5-25 MCG/ACT Aerosol Powder Breath Activated (Fluticasone-Umecli dinium-Vilanterol)I ndications:COPD, group C, by GOLD 2017 classification ([facility]) Inhale 1 Puff by mouth in the morning. 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 120 mL 09/29/2023 Active Additional Information Patient not taking.Reported on 10/18/2023 Montelukast Sodium 10 MG Oral Tablet (Singulair) Take 1 Tablet by mouth at bedtime. 90 Tablet 3 10/03/2023 Active Magnesium Chloride 64 MG Oral Tablet Delayed Release (Mag-64) Take 2 Tablets by mouth in the morning. Active Furosemide 40 MG Oral Tablet (Lasix)Indications: Bilateral lower extremity edema Take 1 Tablet by mouth in the morning for fluid accumulation or weight gain. 90 Tablet 3 10/21/2023 Active Azithromycin 250 MG Oral Tablet (Zithromax)Indicati ons:COPD, group D, by GOLD 2017 classification ([facility]) take two tablets by mouth on day one, then one tablet on days two through five as needed for copd rescue 6 Tablet 10/26/2023 Active Azithromycin 250 MG Oral Tablet (Zithromax)Indicati ons:COPD, group D, by GOLD 2017 classification ([facility]) Take 2 tabs by mouth on the first day, then 1 tab daily on days two through five. Use as needed as COPD rescue. 6 Tablet 10/18/2023 10/26/19 24 Discontinu ed(Refill) Hospital, Clinic, or Other Facility Administered Medication Ordered Dose Route Frequency Start Date End Date Status Albuterol Sulfate (Proventil) (2.5 MG/3ML) 0.083% inhalation solution 2.5 mgIndications:COPD, group D, by GOLD 2017 classification ([facility]),Centrilobular emphysema ([facility]) 2.5 mg NEBULIZER ONCE PRN 10/03/2023 Active documented as of this encounter (statuses as of 10/26/2023) Active Problems Problem Noted Date Diagnosed Date Severe obesity (BMI 35.0-39.9) with comorbidity 05/27/2023 Food insecurity 05/16/2023 Overview: Per [facility] Protocol Personal history of other [...] Classes - YA Class D - Inhaled Xcoypuamycripu-NLBV-FMJU Combination Inhaler (Trellegy) Remote Patient Monitoring Vendor: [...] as of this encounter (statuses as of 10/26/2023) Resolved Problems Problem Noted Date Diagnosed Date [...] LUNG, NOT ELSEWHERE CLASSIFIED 06/12/2002 09/14/2018 CHEST [id number] 04/09/200209/2018 ABN FD-INTRATHOR ORG NEC-akbar nodule 03/06/2002 [...] as of this encounter (statuses as of 10/26/2023) Immunizations Name Administration Dates Next Due COVID-19 mRNA, LNP-s, No Pre serve, 2-Dose Series (Narr8) 05/22/2020,05/01/2020 Seasonal Influenza, PF, 6 M & [...] No 04/26/2023 Does the household have a [facility] source of income? (Household - for ages [...] Miscellaneous Notes * Telephone Encounter - Ajit Bush MD - 10/26/2023 11:08 AM EDTSigned Prescriptions: Disp Refills Azithromycin 250 MG Oral Tablet (Zithromax)6 Tabl*0 Sig: Take 2 tabs by mouth on the first day, then 1 tab daily on days two through five. Use as needed as COPD rescue.Authorizing Provider: AJIT BUSH * Telephone Encounter - Ajit Bush MD - 10/26/2023 11:08 AM EDT Refills sent. Ajit Bush MD * Telephone Encounter - Rosa Parra RN - 10/26/2023 9:12 AM EDT Pt in need of copd rescue kit refill to keep on hand. Orders pended for your review and signature. Pharmacy is [facility] order, pt still has refills on Prednisone so they will send that, but they will need a newscript for the azithromycin. Thank you! documented in this encounter Plan of Treatment Upcoming Encounters Date Type Department Care Team (Late st Contact Info) Description 11/18/2023 2:30 PM EDT [facility] Visit [facility] [address] [place] [id number] Rosa Parra RN [address] [place] [address] Scheduled Procedures Name Priority Associated Diagnoses Date/Ti me COLONOSCOPY FLEXIBLE PROXIMAL DIAGNOSTIC Recall History of colon polyps Health Maintenance Due Date Last Done Comments DISCUSS TOBACCO CESSATION (REFER TO SMARTSET #3291) 1955 Alpha-1 Antitrypsin 12/04/1971 Cologuard 1998 Fecal Occult Blood Test 1998 Sigmoidoscopy 1998 *ADVANCE DIRECTIVE NOT ON FILE 07/22/2018 *BISPHONATE OR OTHER ACCEPTABLE MEDICATION NEEDED FOR OSTEOPOROSIS (REFER TO SMARTSET #1146) 06/29/2022 Adult Wellness Visit 03/11/2023 03/11/2022, 08/31/2021, [...] FOR COPD 10/20/2024 10/21/2023 Colonoscopy 03/18/2026 03/18/2021, /10/2021, 12/18/2019, Additional history exists Colorectal Cancer Screening 03/18/2026 Diabetes Screening 09/04/2026 09/05/2023, 0 08/29/2023, 08/22/2023, Additional history exists Hepatitis C Screening Completed 05/31/2017 , 08/07/2015, 05/03/2014 RETIRED - COLONOSCOPY-ANNUAL AGES 18-100 Discontinued 03/18/2021, 03/18/2021, 12/18/2019, Additional history exists RETIRED - COLONOSCOPY-EVERY 5 YRS AGES 18-100 Discontinued 03/18/2021, 03/18/2021, 12/18/2019, Additional history exists VITAMIN D LEVEL ONCE IN A LIFETIME-USE SMARTSET# [id number] Completed 06/16/2021, 05/03/2014 AAA Screening Completed 09/24/2022, [...] this encounter Visit Diagnoses Diagnosis COPD, group D, by GOLD 2017 classification (HCC) documented in this encounter Advance Directives * [...] 9:12 AM 05/09/2003 10:12 AM Care Teams Leather Coater Relationship Specialty Start Date End Date June, Ajit Sylvester MD [address] [place] [address] PCP - General Family Medicine 03/11/22 documented as of this encounter
--- OUTSIDE RECORDS SUMMARY | 2023-10-27 13:02 | External Medical Summary | Summary of Care ---
Author Name Unknown Organization [facility] Address [address] [place] [address] Phone [phone] Care Team Providers Care Bundle Cutter Name Role Phone Ajit Moreno MD Primary Care Provider [phone] Reason for Visit * Reason Comments [facility]: Maintenance Encounter Details Date Type Department Care Team (Late st Contact Info) Description 10/12/2023 4:00 PM EDT Home Visit [facility], [facility] [address] [place] [address] Rosa Parra RN [address] [facility] [place] [address] Allergies Active Allergy Reactions Criticality Noted Date Comments Fluticasone High 02/27/2020 Other reaction(s): lightheadedness and nausea Umeclidinium High 02/27/2020 Other reaction(s): lightheadedness and nausea Vilanterol High 02/27/2020 Other reaction(s): lightheadedness and nausea documented as of this encounter (statuses as of 10/26/2023) Medications Medication Sig Dispensed Refills Start Date End Date Status Clobetasol Propionate 0.05 % External Ointment (Temovate)Indication s:Stasis dermatitis of both legs Apply 2x daily to rash on legs until resolved, then as needed when flaring 60 g 08/27/2021 Active Albuterol Sulfate HFA 108 (90 Base) MCG/ACT Inhalation Aerosol SolutionIndications: Pulmonary emphysema, unspecified emphysema type ([facility]) INHALE TWO PUFFS BY MOUTH EVERY 4 HOURS NEEDED FOR SHORTNESS OF BREATH or wheezing 8.5 g 5 09/29/2023 Active Aspirin 81 MG Oral Tablet Chewable (Aspirin 81) Take 1 Tablet by mouth in the morning. 90 Tablet 3 09/29/2023 Active Atorvastatin Calcium 80 MG Oral Tablet (Lipitor)Indications :Atherosclerosis of aorta ([facility]) Take 1 Tablet by mouth in the morning. 90 Tablet 09/29/2023 Active Baclofen 5 MG Oral Tablet (Lioresal) Take 1 Tablet by mouth 3 times a day as needed for Muscle spasms. 30 Tablet 09/29/2023 Active Cyanocobalamin 1000 MCG Oral Tablet (Cyanocobalamin) Take 1 Tablet by mouth in the morning. 90 Tablet 09/29/2023 Active Escitalopram Oxalate 10 MG Oral Tablet (Lexapro)Indications :Mood swings Take 1 Tablet by mouth in the morning. 90 Tablet 09/29/2023 Active Levalbuterol HCl 1.25 MG/3ML Inhalation Nebulization Solution (Xopenex)Indications :COPD, group C, by GOLD 2017 classification ([facility]) Inhale 1 vial via nebulizer every 4 hours as needed for Wheezing. 75 mL 09/29/2023 Active Loperamide HCl 2 MG Oral Tablet (Imodium A-D)Indications:Diar bo, unspecified type Take 2 Tablets by mouth 3 times a day as needed for Diarrhea. 90 Tablet 3 09/29/2023 Active LORazepam 0.5 MG Oral Tablet (Ativan)Indications: Anxiety Take 1 Tablet by mouth every 6 hours as needed for Agitation. 20 Tablet 09/29/2023 Active Meclizine HCl 12.5 MG Oral Tablet (Antivert)Indication s:Dizziness Take 1 Tablet by mouth 3 times a day as needed for Dizziness. 20 Tablet 09/29/2023 Active Metoprolol Tartrate 25 MG Oral Tablet (Lopressor) Take 1/2 Tablet by mouth in the morning and 1/2 Tablet before bedtime. 60 Tablet 09/29/2023 Active Ondansetron HCl 8 MG Oral Tablet (Zofran)Indications: Nausea without vomiting Take 1 Tablet by mouth every 8 hours as needed for Nausea. 20 Tablet 09/29/2023 Active Pantoprazole Sodium 40 MG Oral [...] on 10/18/2023 Pregabalin 100 MG Oral Capsule (Lyrica)Indications: Chronic pain syndrome Take 1 Capsule by mouth in the morning and 1 Capsule before bedtime. 60 Capsule 2 09/29/2023 Active Prochlorperazine Maleate 5 MG Oral Tablet (Compazine)Indicatio ns:Nausea without vomiting Take 1 Tablet by mouth every 6 hours as needed for Nausea. 30 Tablet 3 09/29/2023 Active Additional Information Patient not taking.Reported on 10/21/2023 Nebulizer/Tubing/Sindi thpiece Kit Use as directed 1 Kit 5 09/29/2023 Active Trelegy Ellipta 200-62.5-25 MCG/ACT Aerosol Powder Breath Activated (Fluticasone-Umeclid inium-Vilanterol)Ind ications:COPD, group C, by GOLD 2017 classification ([facility]) Inhale 1 Puff by mouth in the morning. 60 Each 10 09/29/2023 Active Triamcinolone Acetonide 0.1 % External Ointment (Aristocort)Indicati ons:Stasis dermatitis of both legs Apply 2 times a day to rash on lower legs when flaring (see printed checkout sheet) 80 g 2 09/29/2023 Active guaiFENesin-Codeine 100-10 MG/5ML Oral Syrup (Robitussin AC)Indications:Chron ic cough Take 5 mL by mouth every 4 hours as needed for Cough. 120 mL 09/29/2023 Active Additional Information Patient not taking.Reported on 10/18/2023 Montelukast Sodium 10 MG Oral Tablet (Singulair) Take 1 Tablet by mouth at bedtime. 90 Tablet 3 10/03/2023 Active Hospital, Clinic, or Other Facility Administered Medication Ordered Dose Route Frequency Start Date End Date Status Albuterol Sulfate (Proventil) (2.5 MG/3ML) 0.083% inhalation solution 2.5 mgIndications:COPD, group D, by GOLD 2017 classification (HCC),Centrilobular emphysema (HCC) 2.5 mg NEBULIZER ONCE PRN 10/03/2023 Active [...] Classes - YA Class D - Inhaled Dtzfkfjganboni-GTBL-WGDR Combination Inhaler (Tejinder) Remote Patient Monitoring Vendor: [...] LUNG, NOT ELSEWHERE CLASSIFIED 06/12/2002 09/14/2018 CHEST [id number] 04/09/200209/2018 ABN FD-INTRATHOR ORG NEC-akbar nodule 03/06/2002 [...] mRNA, LNP-s, No Pre serve, 2-Dose Series (XOJET) 05/22/2020,05/01/2020 Seasonal Influenza, PF, 6 M & [...] Sign Reading Time Taken Comments Blood Pressure 112/64 10/12/2023 4:17 PM EDT Pulse 70 10/12/2023 4:17 PM EDT Temperature - - Respiratory Rate 18 10/12/2023 4:17 PM EDT Oxygen Saturation 96% 10/12/2023 4:17 PM EDT Inhaled Oxygen Concentration - - Weight - - Height - - Body Mass Index - - documented in this encounter Progress Notes * Rosa Parra RN - 10/12/2023 4:00 PM EDT [facility] Sales Representative BONNIE Visit Date: 10/12/2023 Time: 1:23 PM Name: Florentin Franks : 1955 Current Concerns: Pt seen for BONNIE #1 Admitted to [facility] 10/09 - 10/11/23 for Acute on chronic respiratory failure, COPD exacerbation Discharged home on Prednisone 40mg daily x 4 more days and Azithromycin x 3 more days, continue Trelegy inhaler 1 puff daily, slow mag 1 tab daily added He saw [facility] Dr. Schneider, on 10/02 and per notes, if exacerbations continue despite smoking cessation, can consider adding chronic azithromycin or roflumilast - PFT's at f/u Pt continues to smoke Confirmed he is taking prednisone and zpack and also started slow mag He has been on trelogy and continues this Questioning if he should be on c-pap - had sleep study in the past with [facility] will call tomorrow when office is open Needs prednisone and abx rescue kit to keep on hand TE sent to provider Physical Exam: BP 112/64 | Pulse 70 | Resp 18 | SpO2 96% Pain 0 Physical Exam Constitutional: General: He is not in acute distress. Cardiovascular: Rate and Rhythm: Normal rate and regular rhythm. Pulses: Normal pulses. Heart sounds: Normal heart sounds. Pulmonary: Effort: Pulmonary effort is normal. Breath sounds: Wheezing present. Abdominal: General: Bowel sounds are normal. Palpations: Abdomen is soft. Musculoskeletal: Right lower leg: Edema (trace) present. Left lower leg: Edema (trace) present. Skin: General: Skin is warm and dry. Neurological: Mental Status: He is alert and oriented to person, place, and time. Problems/Symptoms: Review of Systems Constitutional: Positive for fatigue. HENT: Negative. Eyes: Negative. Respiratory: Positive for cough (chronic, smokes) and shortness of breath (YAO - at baseline). Cardiovascular: Positive for leg swelling. Gastrointestinal: Negative. Musculoskeletal: Positive for arthralgias and back pain. Neurological: Negative. Psychiatric/Behavioral: Negative. Medication Reconciliation: (See medication list) Does patient take medications as ordered: Yes Patient Well Being: PHQ2/9: No questionnaires available. No change in living situation Denies falls [facility] Completed this Visit: Yes. [facility]: Reason Completed: Status post ED visit/hospital admission [facility] Interventions: Fall education provided, reviewed/provided Fall [...] Keep all appts as scheduled and attend Complete entire course of steroids and abx Mucinex q 12 hours Home Interventions Provided: Home Intervention: Other; eval Reinforced current Plan of Care, including self-management and medication regimen Patient's 'Red Flags': Increased SOB Worsened cough with green/dark colored sputum LE edema Patient Needs to Remember: Call [facility] at with any new or worsening health concerns or problems, red flag symptoms. Referrals Needed: Other none Follow Up: Is there cellular connectivity/connectivity in the home? Yes Does the patient have internet in the home? Yes Patient encouraged to call the intake phone number for all urgent but not emergent issues. Is the patient new to [facility] within the last 30 days? No, Assess appropriateness for upcoming telehealth visits. Cancel telehealth visits & schedule home visit with care sales team manager(s)as indicated. Provider is in agreement with Plan of Care: Yes Scheduled to follow up with patient in 3 weeks. Rosa Parra RN 10/12/2023 1:23 PM documented in this encounter Plan of Treatment Upcoming Encounters Date Type Department Care Team (Late st Contact Info) Description 11/18/2023 2:30 PM EDT [facility] [place] [address] Rosa Parra RN [address] [facility] [place] [address] Scheduled Procedures Name Priority Associated Diagnoses Date/Ti [...] FOR COPD 10/20/2024 10/21/2023 Colonoscopy 03/18/2026 03/18/2021, 02/10/2021, 12/18/2019, Additional history exists Colorectal Cancer Screening 03/18/2026 Diabetes Screening 09/04/2026 09/05/2023, 0 08/29/2023, 08/22/2023, Additional history exists Hepatitis C Screening Completed 05/31/2017 , 08/07/2015, 05/03/2014 RETIRED - COLONOSCOPY-ANNUAL AGES 18-100 Discontinued 03/18/2021, 03/18/2021, 12/18/2019, Additional history exists RETIRED - COLONOSCOPY-EVERY 5 YRS AGES 18-100 Discontinued 03/18/2021, 03/18/2021, 12/18/2019, Additional history exists VITAMIN D LEVEL ONCE IN A LIFETIME-USE SMARTSET# [id number] Completed 06/16/2021, 05/03/2014 AAA Screening Completed 09/24/2022, [...] 9:12 AM 05/09/2003 10:12 AM Care Teams Bundle Cutter Relationship Specialty Start Date End Date June, Ajit Sylvester MD [address] [facility] [place] [address] PCP - General Family Medicine 03/11/22 documented as of this encounter
[2023-10-27] MEDS ORDERED: KETOROLAC 30 MG/ML VIAL ONE (13:15)
[2023-10-27] MEDS: BUPIVACAINE/EPINEPHRINE 0.5% MPF 1:200,000 30 ML VIAL ONE (13:20)
[2023-10-27] MEDS ORDERED: METOCLOPRAMIDE HCL INJ 5 MG/ML 2 ML VIAL IV PRN (14:14)
[2023-10-27] MEDS ORDERED: NALOXONE HCL 0.4 MG/1 ML VIAL/CARP IV PRN (14:14)
[2023-10-27] MEDS ORDERED: bisacodyL 10 MG SUPP PR PRN (14:14)
[2023-10-27] MEDS ORDERED: MAGNESIUM HYDROXIDE SUSP 30 ML UDC PO PRN (14:14)
[2023-10-27] MEDS ORDERED: ALBUTEROL HFA 8 GM INHALER INH PRN (14:26)
[2023-10-27] MEDS ORDERED: CLOBETASOL PROPIONATE 0.05% CREAM 15 GM TUBE TOP PRN (14:26)
[2023-10-27] MEDS ORDERED: LEVALBUTEROL 1.25 MG/3 ML NEB INH PRN (14:26)
[2023-10-27] MEDS ORDERED: TRIAMCINOLONE ACET 0.1% CR 15 GM TUBE TOP PRN (14:26)
[2023-10-27] MEDS ORDERED: ONDANSETRON 8MG OD TAB PO PRN (14:26)
[2023-10-27] MEDS ORDERED: PROCHLORPERAZINE MALEATE 5 MG TAB PO PRN (14:26)
--- NOTE | 2023-10-27 14:29 | Operative Report ---
PG Post Operative Report Pre & Post Diagnosis Operation Date: 10/27/23 10:05 Pre-Op Diagnosis: Right Elbow Olecranon Bursitis, Effusion Right Elbow Post-Op Diagnosis: Right Elbow Olecranon Bursitis, Effusion Right Elbow I identified the patient and participated in the time-out.: Yes Procedure Operation Date: 10/27/23 10:05 Actual Procedures p Right Elbow Arthrotomy, bursectomy, irrigation and Debridement with Radial Head Screw Removal(Right) - Bradley Willis MD Surgeon Bradley Willis MD [employer] Developer Sylwia Durham PA-C Estimated Blood Loss 25 Findings See Below Chronic appearing cystlike formation throughout the bursa that was decorticated. The sinus tract through the cubital tunnel to the joint persisted. No gross purulence. Lateral arthrotomy made through the Whitley interval. Frond-like synovitis was debrided. Some loose fibrinous material in the joint was encountered and debrided. The titanium screws required core reaming to remove. Radial head cartilage remained stable. Specimens #1 Bursal tissue for culture #2 Joint synovitis for culture #3 joint swab for culture Drains 10 Vietnamese JORGE drain Anesthesia Type General Complications none Disposition Accompanied Patient To Recovery: No Disposition: Recovery Room Indications 67-year-old male presented with recurrent elbow effusion and bursal sinus tract after formal I&D and prolonged antibiotic treatment for culture-negative sepsis. Repeat aspirate was positive for yeast. Infectious disease consult as an outpatient suggested antifungal treatment with irrigation and debridement. He reported increasing pain and swelling in the arm and was agreeable to the surgery. I reviewed the risk, benefits, and alternatives. Informed consent was obtained in clinic, and confirmed this morning to proceed. Description of Procedure On the day of surgery, the patient was greeted in the preoperative holding area. The informed consent was reviewed and confirmed by myself and the patient. The patient identified the surgical site and was marked by me. The patient was then turned over to anesthesia. He was taken the operating and placed supine on the OR table. The airway was secured and anesthesia was induced. He was rolled and lateral decubitus position with the humeral tunnel pillow for access to the dorsal olecranon. The right upper extremity was then prepped and draped in usual sterile fashion. Linear incision was made over the previous scar with excision of the sinus tract. Soft tissue dissection was carried out down to the bursal area. There was a cyst like wall widening of the space. It was decorticated from the subcutaneous tissue and the backside of the tricep and olecranon. This was debrided and bulk and cultures were sent. The sinus track from the cubital tunnel into the joint persisted, as expected. There was no gold purulence throughout the space. There are some mild synovial fluid emanating from the medial sinus tract to the joint. Thorough irrigation the bursal space was carried out. A total of 30 cc of local anesthetic was then infused to the skin flaps. Attention was then directed to the lateral approach of the joint. Dissection with the lap sponges revealed the fibers of the common extensor origin. I attempted the Whitley interval and exploited some of the original arthrotomy marked by Ethibond suture. The sutures were all debrided in their entirety. The muscle interval was developed. There was significant scar. The capsulotomy was performed along the joint line and expanded distally to involve just the radial head. This was carried onto the lateral epicondyle elevated from the anterior aspect of the distal humerus to reveal the anterior capsule. A culture swab was then used in the anterior aspect of the joint. Synovitic tissue was excised for a tissue specimen for culture. The radial head was then exposed. The lateral margin showed that the screw heads could be found in neutral supination. Rongeur was used to expose the screw head. The AccuTrack set was available. The guidewire for the cannulated screw was used to guide the bobtail driver onto the screw head. I attempted to remove the screw by a tightening and backing it out and the screw bobtail driver had easily snapped. The second screwdriver was attempted in the same result. We then attempted to use the screw removal set. The threaded screwdriver was attempted but would not gain purchase in the soft titanium. We then moved onto the core extraction device. This was fit snugly around the screw head and then driven towards the the other cortex. I attempted a by hand but we did not make much progress. Was placed on power and it did core out the first titanium headless screw. We used the same technique on the second screw which came out quicker. There was titanium dust in this Bony canal which was debrided using irrigation and the metal Lambert tip suction as well as a curette to scrape the robert. We then direct attention to the arthrotomy and debridement. 6 L total of normal saline cystoscopy flow irrigation was used throughout the joint. Rongeurs and curettes were used along the joint lining to debride the synovitis. After thorough irrigation, we directed attention to closure. 10 Vietnamese round drain was placed to the wound bed exiting proximally to a JORGE drain. 0 PDS was used to reapproximate the arthrotomy and restore the lateral stability. This was done in a layered approach, followed by 0 Vicryl for the fascial layer. The repair is made directly over the lateral epicondyle. This re-tensioned the lateral capsule. A quilting technique was then used to reduce the bursal space which was large. 0 Vicryl stitches in a subcutaneous fashion were used to fasten it down to the underlying fascia. We worked from the recesses of the wound towards the incision line. The ulnar-sided flap was with excessive skin so an ellipse skin resection was performed to reduce the bursal space. 2-0 Vicryl was then used to approximate the dermis. The skin closed was accomplished by crys. Wound was dressed with sterile Xeroform, plain gauze, ABDs and Webril. An posterior splint was applied using Ortho-Glass. The patient tolerated the procedure well, was extubated in the operating without complication, and transferred to recovery in stable condition. Disposition: He will remain inpatient for perioperative antifungal and antibacterial prophylaxis for at least 24 hours. Will we will follow the intraoperative tissue cultures to guide our antifungal treatment. Infectious disease consult will be made and we will continue infectious disease care as an outpatient. Drain can come out when is less than 30 cc/day. Physician pediatric physician assistant attestation: Sylwia Durham PA-C was present and scrubbed for the duration of the case. Skilled assistance was essential to prepping/draping, patient positioning, retraction, and assistance with wound closure. I attest to the content of the Intraoperative Record and any orders documented therein. Any exceptions are noted below.
[2023-10-27] MEDS: fentaNYL citrate PF 100 MCG/2 ML VIAL IV PRN (14:39)
--- NOTE | 2023-10-27 15:14 | Anesthesiology Progress Note ---
Date of Service October 27, 2023 Anesthesia Post Procedure Vital Signs Vital Signs: Temp Pulse Pulse Resp BP Pulse Ox O2 Del Method 10/27/23 15:10 83 16 112/67 93 Nasal Cannula 10/27/23 15:00 97.5 F L 87 12 115/66 93 Nasal Cannula 10/27/23 14:50 90 16 117/71 94 Nasal Cannula 10/27/23 14:40 82 12 120/65 94 Nasal Cannula 10/27/23 14:30 84 16 122/76 94 Nasal Cannula 10/27/23 14:20 81 12 116/65 94 Oxymask 10/27/23 14:12 97.3 F L 88 12 130/70 92 Oxymask 10/27/23 08:49 Room Air 10/27/23 08:49 98.1 F 75 20 124/78 94 Room Air O2 Flow Rate 10/27/23 15:10 3 10/27/23 15:00 3 10/27/23 14:50 3 10/27/23 14:40 3 10/27/23 14:30 3 10/27/23 14:20 6 10/27/23 14:12 4 10/27/23 08:49 10/27/23 08:49 Pain Intensity Right Elbow: Pain Intensity: 4 Back: Pain Intensity: 4 Transfer of Care Handoff Completed per policy Notes Mental Status: alert / awake / arousable and participated in evaluation Patient Amnestic to Procedure: Yes Nausea / Vomiting: adequately controlled Pain: adequately controlled Airway Patency, RR, SpO2: stable & adequate BP & HR: stable & adequate Hydration State: stable & adequate Anesthetic Complications: no major complications apparent and Pt Satisfied with anesthetic care
[2023-10-27] MEDS ORDERED: LOPERAMIDE HCL 2 MG CAP PO PRN (16:14)
[2023-10-27] MEDS ORDERED: VANCOMYCIN CONSULT ACTIVE PRN (16:31)
[2023-10-27] MEDS: SODIUM CHLORIDE 0.9% 1,000 ML IV SCH (17:10)
[2023-10-27] MEDS: CASPOFUNGIN 70 MG in SODIUM CHLORIDE 0.9% 250 ML IV ONE (17:10)
[2023-10-27] MEDS: CEFEPIME 2,000 MG in SYRINGE 0 ML IV SCH (17:16)
[2023-10-27] MEDS: VANCOMYCIN HCL 1,000 MG in SODIUM CHLORIDE 0.9% 250 ML IV SCH (17:35)
[2023-10-27] MEDS: VANCOMYCIN HCL 2,000 MG in SODIUM CHLORIDE 0.9% 500 ML IV ONE (18:16)
[2023-10-27] MEDS: oxyCODONE HCL IR 5 MG TAB (IMMEDIATE RELEASE) PO PRN (18:23)
[2023-10-27] MEDS ORDERED: ceFAZolin 2000MG 2,000 MG/15 ML SYR IV SCH (20:15)
[2023-10-27] MEDS: ACETAMINOPHEN 1,000 MG/100 ML VIAL IV PRN (21:08)
[2023-10-27] MEDS: MONTELUKAST SODIUM 10 MG TABLET PO SCH (21:08)
[2023-10-27] MEDS: SENNA 8.6 MG TAB PO SCH (21:08)
[2023-10-27] MEDS: PREGABALIN 100 MG CAP PO SCH (21:08)
[2023-10-27] MEDS: PANTOprazole 40 MG TAB PO SCH (21:08)
[2023-10-27] MEDS: DOCUSATE SODIUM 100 MG CAP PO SCH (21:08)
[2023-10-27] MEDS: METOPROLOL TARTRATE 25 MG TAB PO SCH (21:08)
[2023-10-28] MEDS: HYDROmorphone INJ 0.5 MG/0.5 ML SYR IV PRN (00:29)
[2023-10-28] MEDS: KETOROLAC TROMETHAMINE 15 MG/ML VIAL IV ONE (02:42)
[2023-10-28] MEDS: diphenhydrAMINE Capsule 25 MG CAP PO PRN (04:13)
[2023-10-28] MEDS: VANCOMYCIN HCL 1,500 MG in SODIUM CHLORIDE 0.9% 500 ML IV SCH (06:11)
--- NOTE | 2023-10-28 06:52 | Orthopedic Progress Note ---
Date of Service October 28, 2023 Assessment & Plan (1) Septic arthritis of elbow, right: - We will continue his antifungal and antibiotic regimen. We would appreciate the input from infectious disease as an inpatient. We do have infectious disease assisting us from an outpatient standpoint when the patient is discharged. We will hold off on discharge until we see hospitalist note as well as infectious disease consult. Cultures would not come back for a few days. The sensitivities from the previous culture and aspiration from our office procedure are not back yet. I will come check on him later today. (2) Effusion of elbow joint, right: (3) Olecranon bursitis, right elbow: Subjective Operation Date: 10/27/23 10:05 Actual Procedures p Right Elbow Arthrotomy, bursectomy, irrigation and Debridement with Radial Head Screw Removal(Right) - Bradley Willis MD Postop day 1 from surgery above. Per nursing, last evening, his pain was not controlled with the pain regimen that was placed. He was given Toradol in addition. His pain is still quite bothersome but it is less than last evening. He is neuro vastly intact. I did see that vancomycin was also added on. He is aware that his cultures will not come back for a few days. Drain output 20 cc over 8-hour shift. Review of Systems All systems reviewed & are unremarkable except as noted in HPI & below. Physical Exam General: Alert and oriented. No acute distress. Right elbow: Splint was not removed for today's visit. There is no visible saturation. Drain is intact and is working. Neurovascular intact. Results & Data Results & Data Laboratory Results . Diagnostic Findings . PG Care Time/CCT Total # of Minutes Spent Total Time Spent with Patient: Total time spent is greater than 50% in coordination of care (as documented) at patient's floor/unit and/or counseling patient: Coding Level of Care Code 85090 Post Operative Follow-Up Diagnoses Septic arthritis of elbow, right M00.9 Effusion of elbow joint, right M25.421 Olecranon bursitis, right elbow M70.21
[2023-10-28 07:27] LABS: BUN Creatinine Ratio 20.8 (10-20); Calcium 8.2 mg/dl (8.6-10.3); Creatinine Clr Calc Pharmacy 97.5 ml/min; Est GFR (African American) 107.3 ml/min; Est GFR (Non-African American) 92.6 ml/min; Magnesium 1.4 mg/dl (1.7-2.4); Potassium 4.1 mmol/L (3.5-5.1)
[2023-10-28 07:30] LABS: Basophils # (auto) 0.02 K/uL (0.00-0.20); Basophils % (auto) 0.2 %; Hematocrit (blood only) 34.6 % (42.0-52.0); Hemoglobin 11.4 g/dl (14.0-18.0); Immature Granulocytes # (auto) 0.04 K/uL (0.01-0.20); Immature Granulocytes % (auto) 0.3 %; Lymphocytes # (auto) 1.24 K/uL (1.20-3.40); Lymphocytes % (auto) 10.6 %; Mean Corpuscular Hemoglobin 30.9 pg (25.0-34.0); Mean Corpuscular Hgb Conc 32.9 g/dL (32.0-36.0); Mean Corpuscular Volume 93.8 fL (80.0-100.0); Mean Platelet Volume 10.9 fL (9.4-12.4); Monocytes # (auto) 0.83 K/uL (0.11-0.59); Monocytes % (auto) 7.1 %; Neutrophils # (auto) 9.54 K/uL (1.40-6.50); Neutrophils % (auto) 81.8 %; Platelet Count 294 K/uL (130-400); RDW Coefficient of Variation 15.3 % (11.5-14.5); RDW Standard Deviation 52.7 fL (36.4-46.3); Red Blood Count 3.69 M/uL (4.70-6.10); White Blood Count 11.67 K/ul (4.8-10.8)
--- NOTE | 2023-10-28 07:45 | Pharmacy Report ---
Pharmacy PK ABX Note - Date of Service October 28, 2023 - Assessment and Plan Assessment 67 year old M receiving Vancomycin and Cefepime for treatment of right olecranon bursitis. * Day #1 of antimicrobial therapy. * Went to OR on 10/27/23 for I&D. OR cultures pending. * Labs/Vitals: Afebrile. Mild leukocytosis. Renal fxn seems near baseline with SCr of 0.77 mg/dL. * Infectious disease consulted. Plan Vancomycin * Loading dose: 2000 mg IV x 1 * Maintenance dose: 1500 mg IV every 12 hours * AUC/KIKE at steady state is expected to be supratherapeutic at 653 mg/L.hr. Will order a level prior to steady state and can decrease dose if necessary. * Trough level ordered for: 10/28/23 Cefepime * Continue 2000 mg IV every 8 hours Pharmacy will continue to follow and will adjust dose/frequency as necessary. Thank you. Pharmacy has transitioned to AUC monitoring for vancomycin. AUC/KIKE is the preferred PK/PD target and is associated with decreased risk of nephrotoxicity compared to traditional trough targets.
[2023-10-28] MEDS: ASPIRIN 81 MG ECTAB PO SCH (08:31)
[2023-10-28] MEDS: CYANOCOBALAMIN (B-12) 500 MCG TABLET PO SCH (08:31)
[2023-10-28] MEDS: FUROSEMIDE 40 MG TAB PO SCH (08:31)
[2023-10-28] MEDS: ATORVASTATIN 40 MG TAB PO SCH (08:31)
[2023-10-28] MEDS: ESCITALOPRAM OXALATE 10 MG TAB PO SCH (08:31)
[2023-10-28] MEDS: UMECLIDINIUM/VILANTEROL 62.5/25MCG 7 PUFFS/INHALER INH SCH (08:32)
[2023-10-28] MEDS: MULTIVITAMIN TAB PO SCH (08:32)
[2023-10-28] MEDS: FLUTICASONE FUROATE 100MCG 14 PUFFS/INHALER INH SCH (08:32)
[2023-10-28] MEDS: MAGNESIUM CHLORIDE W/CALCIUM 64MG DELAYED REL TAB PO SCH (08:32)
[2023-10-28] MEDS ORDERED: FLUCONAZOLE 100 MG TAB PO SCH (09:00)
--- NOTE | 2023-10-28 09:01 | Hospitalist Consultation ---
Date of Consultation October 28, 2023 Assessment & Plan (1) Olecranon bursitis, right elbow: (2) Effusion of elbow joint, right: (3) COPD with emphysema: (4) Hypertension: (5) Neuropathy: (6) GERD (gastroesophageal reflux disease): (7) Anxiety: Plan This is a 67yo M with PMH of COPD, obstructive sleep apnea on 2 L oxygen nightly, hyperlipidemia, atherosclerosis of aorta, GERD, obesity, chronic pain syndrome, tobacco use disorder, history of venous thrombosis and embolism, depression who underwent R Elbow Arthrotomy, bursectomy, irrigation and Debridement with Radial Head Screw Removal by Dr. Willis on 10/26. R elbow olecranon bursitis s/p I&D Recurrent infection, last admitted in July 2023 for septic bursitis with washout Cultures negative at that time, discharged on 4 weeks of IV Rocephin per direction of ID POD #1 s/p R Elbow Arthrotomy, bursectomy, irrigation and Debridement with Radial Head Screw Removal by Dr. Willis on 10/26 First intraop culture growing preliminary yeast, continue to follow Continue empiric cefepime, Vanco, Capsofungin Discussed with Adam ID, awaiting final consults COPD Chronic hypoxic resp failure TAYLOR on supplemental O2 On baseline 2L O2 Schedule Duonebs given wheezing on exam Continue home Trelegy, Singulair, PRN albuterol Hypomagnesia Replaced, continue home slow mag daily, monitor with daily labs Hypertension Normotensive Continue metoprolol and Lasix GERD Continue PPI Hyperlipidemia Continue statin Depression Continue SSRI Patient seen in collaboration with Dr. Carlson. Please see addendum. I spent a total of 60 minutes coordinating, documenting, and providing care for this patient excluding time spent in the performance of separately billed services. Thank you for this consultation. We will follow the patient with you during their hospital stay. You can reach a member of the [facility] Hospitalist Team 30/08 via [facility]. Supervising Physician Co-Signing Physician Notes Pt was seen and examined by myself, Paz Carlson MD on the day of service. Care was coordinated with Nelly Altman PA-C. Patient is a 67-year-old male presenting for concern for recurrent right elbow infection status post I&D on October 26 with orthopedics. On exam patient resting in bed comfortably, right arm and elbow in bandages and sling At the time of this dictation 2 IntraOp cultures from October 26 growing yeast We will continue with empiric caspofungin at this time, continue empiric cefepime and Vancomycin Appreciate further recs from infectious disease Appreciate further recs from orthopedics, primary team Continue to monitor Otherwise as above. I spent a total [id number] coordinating, documenting, and providing care for this patient excluding time spent in the performance of separately billed services History of Present Illness Reason for Consultation: post op med mgmt Attending Physician: Bradley Willis MD History of Present Illness This is a 67yo M with PMH of COPD, obstructive sleep apnea on 2 L oxygen nightly, hyperlipidemia, atherosclerosis of aorta, GERD, obesity, chronic pain syndrome, tobacco use disorder, history of venous thrombosis and embolism, depression who underwent R Elbow Arthrotomy, bursectomy, irrigation and Debridement with Radial Head Screw Removal by Dr. Willis on 10/26. This is a recurrent issue for the patient, who was most recently admitted in late July 2023 for septic bursitis of the elbow with washout. Cultures were negative but discharged on 4 weeks of IV Rocephin per direction of ID. Continued to have pain and symptoms and followed up with Ortho in outpatient setting, where outpatient culture from 10/18 grew yeast, not Melany albicans. Readmitted for I&D yesterday by Dr. Willis. Given fluconazole in ED yesterday and 1 dose of Caspofungin. Has been continued on empiric cefepime and Vanco as intraoperative cultures are resulting. Patient having some pain at site of elbow but just received pain medication from RN. Denies any numbness or paresthesias of right upper extremity. No fever or chills. No headache, lightheadedness, chest pain, palpitations, nausea, vomiting. Has h/o COPD on 2L o2. States his breathing is at baseline. Some chronic abdominal discomfort, unchanged. No dysuria. History of loose stool in setting of recent antibiotics but denies any episode of diarrhea since yesterday morning. Allergies Allergy/AdvReac Type Severity Reaction Status Date / Time No Known Allergies Allergy Verified 10/27/23 08:43 Home Medications Medication Instructions Recorded Confirmed Type pregabalin 100 mg capsule (Lyrica) 100 mg PO BID 10/16/17 10/27/23 History ondansetron 8 mg disintegrating 8 mg PO Q8H PRN Nausea 04/07/22 10/27/23 History tablet clobetasol 0.05 % topical cream 1 applic topical BID PRN Rash 12/29/22 10/27/23 History levalbuterol HCl 1.25 mg/3 mL 1.25 mg inhalation Q4H PRN Wheezing 12/29/22 10/27/23 History solution for nebulization triamcinolone acetonide 0.1 % 1 applic topical BID PRN Rash 12/29/22 10/27/23 History topical cream (Triderm) cyanocobalamin (vitamin B-12) 1,000 mcg PO QAM 03/08/23 10/27/23 History 1,000 mcg tablet (Vitamin B-12) aspirin 81 mg tablet,delayed 81 mg PO QAM #30 tabs 03/11/23 10/27/23 Rx release pantoprazole 40 mg tablet,delayed 40 mg PO BID 30 days #60 tabs 04/06/23 10/27/23 Rx release (Protonix) albuterol sulfate 90 mcg/actuation 2 puff inhalation Q4H PRN 04/26/23 10/27/23 Rx aerosol inhaler Shortness Of Breath Or Wheezing #8.5 grams escitalopram oxalate 10 mg tablet 10 mg PO QAM 06/13/23 10/27/23 History (Lexapro) CPAP Machine #1 ea 06/24/23 08/02/23 Rx CPAP Supplies #1 ea 06/24/23 08/02/23 Rx metoprolol tartrate 25 mg tablet 12.5 mg (1/2 x 25 mg) PO BID #30 08/09/23 10/27/23 Rx tabs furosemide 40 mg tablet (Lasix) 40 mg PO QAM Fluid accumulation, 10/10/23 10/27/23 History weight gain loperamide 2 mg tablet (Imodium 4 mg PO TID PRN Diarrhea 10/10/23 10/27/23 History A-D) montelukast 10 mg tablet 10 mg PO HS 10/10/23 10/27/23 History (Singulair) prochlorperazine maleate 5 mg 5 mg PO Q6H PRN NAUSEA/VOMITING 10/10/23 10/27/23 History tablet (Compazine) fluticasone fur. 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 Saw vascular: started on [id number] and Eliquis. Eliquis was then D/C by pulmonary 04/2023. Pt had normal f/u chest CTA 06/20/23 Irregular cardiac rhythm pt noted to have 25beats of Nonsustained VTach vs PAT day of discharge (08/09/23) [facility]; pt denied sx; started on metoprolol and ordered Zio monitor and Cardio referral Peripheral vascular disease Chronic diastolic heart failure PCP monitoring; ECHO 10/03/23 with nl EF and Gr I DD. 'no changes to medications needed at this time. Continue lasix daily' per PCP Chronic back pain "hx broken back"no back surgery Arthritis GERD (gastroesophageal reflux disease) Hx pulmonary embolism 2017 developed after a bad fall (was on coumadin for 1 year) Cardiac murmur no significant valve disease per 10/03/23 ECHO Hypertension Hyperlipidemia Chronic obstructive pulmonary disease 'group D' per pulm. Pt admitted [facility] for COPD exacerbation 10/08-10/11/23; admitted [facility] for COPD exacerbation (also had COVID at the time): 09/22- 09/25/23; admitted for COPD exacerbation 05/17-05/21/23 Asthma required rescue inhaler "just the other day" Chronic respiratory failure On oxygen at night in the past - but no longer needs per patient . Per 10/18/23 PCP note, 'pt stable from a respiratory standpoint' Hx of migraines Sleep apnea 2L O2 HS (no other device) History of COVID-19 Admitted [facility] 09/22-09/25/23 COVID+ and COPD exacerbation; pt states no longer having COVID sx Pneumothorax Hx- complication from pain injection- resolved Histoplasmosis 2003- treated Surgical History H/O hernia repair History of esophagogastroduodenoscopy (EGD) Hx of colonoscopy History of open reduction and internal fixation (ORIF) procedure right shoulder History of total replacement of left shoulder joint History of sinus surgery History of placement of chest tube History of hand surgery right/left Left femoral shaft fracture Dutch placed>hardware intact H/O total hip arthroplasty left H/O elbow surgery R radial head ORIF prior to 2009; R elbow I&D 08/05/23: GA: MAC#4, ETT#7.5HiLo, Gr View 1 H/O exploratory thoracotomy "Left thoracotomy wedge biopsy of left upper lobe with excision of lesion or nodule & frozen section 2002" H/O hernia repair [facility] incarcerated supraumbilical hernia repair open no mesh 02/17/01 Family History Father Heart disease Hypertension Brother Heart disease Cancer Hypertension Stroke Mother Cancer Other Leukemia No family history of adverse response to anesthesia No family history of bleeding disorder Non-Hodgkin lymphoma Denies family history of Hearing loss Asthma Social History Smoking Status: Current every day smoker Tobacco Type: Cigarettes Age Started Using Tobacco: 11; packs per day: 1; Cigarettes Per Day: 10 cig daily>advised; Second Hand Exposure: No; Do You Dip or Chew Tobacco: No; Hx Alcohol Use: No Hx Substance Use: No Preferred Language: Divehi Communication Ability: Effective Head Of Design Required: No Beliefs That Will Affect Care: None marital status: Current Living Situation: Spouse current occupational status: unemployed Feels Safe at Home: Yes Safety Concerns: Feels Safe At This Time Assistive Devices: Glasses, Oxygen - at Night and Walker Review of Systems Review of Systems: At least ten systems reviewed and negative except as noted in the HPI. Physical Exam Physical Exam: General Appearance: WD/WN, vitals as above, NAD, sitting up in bed, pleasant, conversing easily Head: normocephalic, atraumatic Eyes: normal inspection, PERRL, conjunctivae normal, anicteric sclerae ENT: external ear and nose normal, oropharynx normal Neck: normal visual inspection, trachea midline, no thyromegaly Respiratory: normal respiratory effort, bilateral wheezing, decreased breath sounds. No accessory muscle use Cardiovascular: regular rate, rhythm, no BLE edema Abdomen/GI: normal bowel sounds, soft, nontender, no hepatosplenomegaly Extremities/Musculoskeletal: RUE in sling, dressing c/d/i. Drain visualized with minimal output. No cyanosis or clubbing, extremities motor strength 5/5 Neurologic: PERRL, EOMI, accommodation nl, no face palsy, no dysarthria, CN's II-XI intact bilaterally and moves all extremities Psychiatric: A+Ox3, euthymic affect Skin: no rashes, normal color, warm/dry Results & Data Results & Data Vital Signs (Past 12 Hours) Vital Signs Temp Pulse Resp BP Pulse Ox O2 Del Method O2 Flow Rate 10/28/23 07:53 36.8 C 64 16 110/62 93 Nasal Cannula 3 10/28/23 04:49 36.7 C 65 20 116/72 94 Nasal Cannula 3 10/28/23 04:00 36.6 C 89 16 102/64 98 Nasal Cannula 10/28/23 00:25 36.7 C 66 20 107/63 94 Nasal Cannula 3 10/27/23 23:30 Nasal Cannula 3 10/27/23 22:33 36.7 C 69 16 117/70 94 Nasal Cannula Laboratory Results Short CBC 10/28/23 Range/Units 06:41 WBC 11.67 H (4.8-10.8) K/ul Hgb 11.4 L (14.0-18.0) g/dl Hct 34.6 L (42.0-52.0) % Plt Count 294 (130-400) K/uL BMP 10/28/23 06:41 Sodium 139 Potassium 4.1 Chloride 107 Carbon Dioxide 27 BUN 16 Creatinine 0.77 Glucose 143 H Calcium 8.2 L Diagnostic Findings Elbow X-Ray 10/27/23 10:05 FL elbow RT 2V CLINICAL HISTORY: RADIAL HEAD SCREW REMOVAL, XRAY STANDBY COMPARISON STUDY: MRI right elbow 10/21/2023 FLUOROSCOPY TIME: 5.2 seconds FLUOROSCOPY IMAGES: 2 EXPOSURE DOSE: 0.22 mGy FINDINGS: Screw tracts noted within the radial head at the site of prior screw removal. Expected postoperative soft tissue swelling with deep tissue air. 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 IMPRESSION: Fluoroscopic assistance as above. ACT 112: Negative or not required by law. Electronically signed by: Colby Mata M.D. 10/27/2023 12:50 PM
[2023-10-28] MEDS: MAGNESIUM SULFATE / D5W 1 GM/100 ML BAG IV SCH (11:17)
[2023-10-28] MEDS: ALBUT/IPRATROP 3MG/0.5MG NEB 3 ML VIAL NEB STA (11:30)
[2023-10-28] MEDS: CASPOFUNGIN 50 MG in SODIUM CHLORIDE 0.9% 250 ML IV SCH (11:48)
[2023-10-28] MEDS: ALBUT/IPRATROP 3MG/0.5MG NEB 3 ML VIAL NEB SCH (13:20)
[2023-10-28] MEDS ORDERED: PHARMACY GLYCEMIC MGMT CONSULT PRN (16:32)
[2023-10-28] MEDS: INSULIN ASPART PER UNIT CHARGE SC SCH (17:44)
[2023-10-29 05:54] LABS: BUN Creatinine Ratio 18.8 (10-20); Calcium 8.4 mg/dl (8.6-10.3); Creatinine Clr Calc Pharmacy 78.2 ml/min; Est GFR (African American) 93.1 ml/min; Est GFR (Non-African American) 80.3 ml/min; Potassium 4.3 mmol/L (3.5-5.1)
[2023-10-29 06:02] LABS: Hematocrit (blood only) 35.6 % (42.0-52.0); Hemoglobin 11.6 g/dl (14.0-18.0); Mean Corpuscular Hemoglobin 30.7 pg (25.0-34.0); Mean Corpuscular Hgb Conc 32.6 g/dL (32.0-36.0); Mean Corpuscular Volume 94.2 fL (80.0-100.0); Mean Platelet Volume 10.7 fL (9.4-12.4); Platelet Count 301 K/uL (130-400); RDW Coefficient of Variation 15.7 % (11.5-14.5); RDW Standard Deviation 54.4 fL (36.4-46.3); Red Blood Count 3.78 M/uL (4.70-6.10); White Blood Count 10.48 K/ul (4.8-10.8)
--- NOTE | 2023-10-29 08:00 | Orthopedic Progress Note ---
Date of Service October 29, 2023 Assessment & Plan (1) Septic arthritis of elbow, right: Postop day 2 from irrigation and debridement with intra-articular hardware removal for recurrent right elbow effusions due to what appears to be a joint mycosis. 2 of the 4 cultures from the OR are growing yeast. In clinic joint aspirate from 10/18 also growing yeast. Species yet to be identified. IntraOp findings from both of his irrigation and debridements showed a fairly indolent process marked by bland synovial inflammation, abundant synovial fluid, and fairly normal-appearing cartilage. -Continue current management. Appreciate internal medicine assistance. -Infectious disease consult pending. Continue antifungal plan. Likely can discontinue antibacterials but will wait for infectious disease guidance. -Discussed with patient that we need to definitive antifungal/antibiotic plan. -Until then, we will continue the splint and the drain. -Will likely remove splint, check wound, and remove drain tomorrow. Disposition: Undetermined, but as early as tomorrow depending on infectious disease consult. Will plan to take down splint and drain before discharge, but maintain sling and dressing for at least 2 to 3 weeks for soft tissue rest. Subjective Significant pain overnight but somewhat better this morning. Tolerating the antibiotics and antifungal so well. He was eating this morning. Has been out of bed. Anxious to get home. Review of Systems All systems reviewed & are unremarkable except as noted in HPI & below. Physical Exam Right upper extremity: Splint is clean dry and intact. Full motor and sensation to his hand. Some edema to the dorsal hand, as expected. Sling adjusted. Constitutional WD/WN, vitals as above no acute distress and not intoxicated appearing Respiratory normal respiratory effort; no labored breathing Cardiovascular Extremities: normal capillary refill Results & Data Results & Data Laboratory Results Microbiology 10/27/23 12:01 Elbow,Right [joint capsule tissue] Aerobic and Anaerobic Culture - Preliminary Yeast- ident to follow 10/27/23 12:00 Elbow,Right [joint capsule swab] Aerobic and Anaerobic Culture - Preliminary Yeast- ident to follow 10/27/23 12:01 Elbow,Right Gram Stain - Final [bursa tissue - no growth] 10/27/23 12:00 Elbow,Right Gram Stain - Final Laboratory Tests 10/28/23 10/29/23 06:41 05:18 WBC 11.67 H 10.48 Hct 35.6 L Diagnostic Findings . PG Care Time/CCT Total # of Minutes Spent Total Time Spent with Patient: Total time spent is greater than 50% in coordination of care (as documented) at patient's floor/unit and/or counseling patient: Coding Level of Care Code 71227 Post Operative Follow-Up Diagnoses Septic arthritis of elbow, right M00.9
[2023-10-29] MEDS: VANCOMYCIN LEVEL ONE (08:33)
--- NOTE | 2023-10-29 09:47 | Pharmacy Report ---
Pharmacy PK ABX Note - Date of Service October 29, 2023 - Assessment and Plan Assessment 10/29/23 * Day # 3 of vancomycin treatment * Based on the vancomycin level of 12.8, the AUC is predicted to be above upper target of 600 when at steady state, so the vancomycin has been decrea sed to 1250mg iv q 12 hours. * He also continues on cefepime and caspofungin * Afebrile, no leukocytosis, and renal function remains stable * Right elbow cultures are still pending. 10/27/23 67 year old M receiving Vancomycin and Cefepime for treatment of right olecranon bursitis. * Day #1 of antimicrobial therapy. * Went to OR on 10/27/23 for I&D. OR cultures pending. * Labs/Vitals: Afebrile. Mild leukocytosis. Renal fxn seems near baseline with SCr of 0.77 mg/dL. * Infectious disease consulted. Plan Vancomycin * Loading dose: 2000 mg IV x 1 * Maintenance dose: 1250mg IV every 12 hours * AUC/KIKE predicted to be 561 at this dosing * Trough level ordered for: 10/31/23 with morning labs Cefepime * Continue cefepime 2000 mg IV every 8 hours and caspofungin 50mg q 24 hours. Pharmacy will continue to follow and will adjust dose/frequency as necessary. Thank you. Pharmacy has transitioned to AUC monitoring for vancomycin. AUC/KIKE is the preferred PK/PD target and is associated with decreased risk of nephrotoxicity compared to traditional trough targets.
[2023-10-29] MEDS: HYDROmorphone INJ 0.5 MG/0.5 ML SYR IV PRN (16:55)
[2023-10-29] MEDS: VANCOMYCIN HCL 1,250 MG in SODIUM CHLORIDE 0.9% 250 ML IV SCH (17:23)
--- NOTE | 2023-10-29 17:37 | Hospitalist Progress Note ---
Date of Service October 29, 2023 Assessment & Plan (1) Olecranon bursitis, right elbow: (2) Effusion of elbow joint, right: (3) COPD with emphysema: (4) Hypertension: (5) Neuropathy: (6) GERD (gastroesophageal reflux disease): (7) Anxiety: Plan Mr. Franks is a 67yo M with PMH of COPD, obstructive sleep apnea on 2 L oxygen nightly, hyperlipidemia, atherosclerosis of aorta, GERD, obesity, chronic pain syndrome, tobacco use disorder, history of venous thrombosis and embolism, depression who underwent R Elbow Arthrotomy, bursectomy, irrigation and Debridement with Radial Head Screw Removal by Dr. Willis on 10/26. #R elbow olecranon bursitis s/p I&D Recurrent infection, last admitted in July 2023 for septic bursitis with washout Cultures negative at that time, discharged on 4 weeks of IV Rocephin per direction of ID POD #2 s/p R Elbow Arthrotomy, bursectomy, irrigation and Debridement with Radial Head Screw Removal by Dr. Willis on 10/26 First intraop culture growing preliminary yeast, continue to follow Continue empiric cefepime, Vanco, [facility] final [facility]ults #COPD #Chronic hypoxic resp failure #TAYLOR on supplemental O2 On baseline 2L O2 Schedule Duonebs given wheezing on exam Continue home Trelegy, Singulair, PRN albuterol #Hypomagnesia Replaced, continue home slow mag daily, monitor with daily labs #Hypertension Normotensive Continue metoprolol and Lasix #GERD Continue PPI #Hyperlipidemia Continue statin #Depression Continue SSRI Thank you for this consultation. We will follow the patient with you during their hospital stay. You can reach a member of the [facility] Hospitalist Team 30/08 via [employer]. Admission and Anticipated Discharge Date Admission Date: October 28, 2023 Subjective NAEO Reports pain is a bit noted but hasn't had pain medication at time of eval and due for next dose Physical Exam Constitutional: WD/WN, vitals as above Respiratory: normal respiratory effort, lungs clear to auscultation Cardiovascular: RRR, no murmur, no edema Gastrointestinal (Abdomen): normal bowel sounds, soft, nontender, no hepatosplenomegaly Results & Data Results & Data Vital Signs (Past 12 Hours) Vital Signs Temp Pulse Resp BP Pulse Ox O2 Del Method O2 Flow Rate 10/29/23 14:22 36.7 C 67 18 106/64 94 Nasal Cannula 2 10/29/23 13:08 77 18 93 Room Air 10/29/23 10:38 Nasal Cannula 2 10/29/23 07:26 36.6 C 62 18 146/76 H Nasal Cannula 2 10/29/23 07:07 77 17 92 Room Air Laboratory Results Short CBC 10/29/23 Range/Units 05:18 WBC 10.48 (4.8-10.8) K/ul Hgb 11.6 L (14.0-18.0) g/dl Hct 35.6 L (42.0-52.0) % Plt Count 301 (130-400) K/uL BMP 10/29/23 05:18 Sodium 140 Potassium 4.3 Chloride 107 Carbon Dioxide 29 BUN 18 Creatinine 0.96 Glucose 95 Calcium 8.4 L Medications Administered Home Medications Medication Instructions Recorded Confirmed Last Taken pregabalin 100 mg capsule (Lyrica) 100 mg PO BID 10/16/17 10/27/23 10/26/23 08:00 ondansetron 8 mg disintegrating 8 mg PO Q8H PRN Nausea 04/07/22 10/27/23 10/24/23 tablet clobetasol 0.05 % topical cream 1 applic topical BID PRN Rash 12/29/22 10/27/23 Unknown levalbuterol HCl 1.25 mg/3 mL 1.25 mg inhalation Q4H PRN Wheezing 12/29/22 10/27/23 10/20/23 solution for nebulization triamcinolone acetonide 0.1 % 1 applic topical BID PRN Rash 12/29/22 10/27/23 Unknown topical cream (Triderm) cyanocobalamin (vitamin B-12) 1,000 mcg PO QAM 03/08/23 10/27/23 10/26/23 08:00 1,000 mcg tablet (Vitamin B-12) aspirin 81 mg tablet,delayed 81 mg PO QAM #30 tabs 03/11/23 10/27/23 10/26/23 08:00 release pantoprazole 40 mg tablet,delayed 40 mg PO BID 30 days #60 tabs 04/06/23 10/27/23 10/26/23 08:00 release (Protonix) albuterol sulfate 90 mcg/actuation 2 puff inhalation Q4H PRN 04/26/23 10/27/23 10/25/23 aerosol inhaler Shortness Of Breath Or Wheezing #8.5 grams escitalopram oxalate 10 mg tablet 10 mg PO QAM 06/13/23 10/27/23 10/26/23 08:00 (Lexapro) CPAP Machine #1 ea 06/24/23 08/02/23 Unknown CPAP Supplies #1 ea 06/24/23 08/02/23 Unknown metoprolol tartrate 25 mg tablet 12.5 mg (1/2 x 25 mg) PO BID #30 08/09/23 10/27/23 10/26/23 21:00 tabs furosemide 40 mg tablet (Lasix) 40 mg PO QAM Fluid accumulation, 10/10/23 10/27/23 10/24/23 weight gain loperamide 2 mg tablet (Imodium 4 mg PO TID PRN Diarrhea 10/10/23 10/27/23 10/25/23 A-D) montelukast 10 mg tablet 10 mg PO HS 10/10/23 10/27/23 10/26/23 08:00 (Singulair) prochlorperazine maleate 5 mg 5 mg PO Q6H PRN NAUSEA/VOMITING 10/10/23 10/27/23 10/20/23 tablet (Compazine) fluticasone fur. 100 mcg-umeclid 1 inh inhalation DAILY #60 ea 10/11/23 10/27/23 10/27/23 07:00 62.5 mcg-vilant 25 mcg inhalat.powder (Trelegy Ellipta) atorvastatin 80 mg tablet (Lipitor) 80 mg PO QAM 10/19/23 10/27/23 10/26/23 08:00 cefdinir 300 mg capsule 300 mg PO BID 10/19/23 10/27/23 10/26/23 08:00 magnesium chloride 64 mg 64 mg PO QAM 10/19/23 10/27/23 10/26/23 08:00 (magnesium chloride) tablet,delayed release (Mag 64) Active Medications Generic Name Dose Route Start Last Admin Trade Name Freq PRN Reason Stop Dose Admin Albuterol 3 ml 10/28/23 13:00 10/29/23 13:08 Albut/Ipratrop 3mg/0.5mg Neb 3 Ml Vial NEB 11/27/23 12:59 3 ml Q6R YUN Administration Protocol Aspirin 81 mg 10/28/23 09:00 10/29/23 08:27 Aspirin 81 Mg Ectab PO 11/27/23 08:59 81 mg QAM YUN Administration Atorvastatin Calcium 80 mg 10/28/23 09:00 10/29/23 08:27 Atorvastatin 40 Mg Tab PO 11/27/23 08:59 80 mg QAM YUN Administration Cyanocobalamin 1,000 mcg 10/28/23 09:00 10/29/23 08:27 Cyanocobalamin (B-12) 500 Mcg Tablet PO 11/27/23 08:59 1,000 mcg QAM YUN Administration Diphenhydramine HCl 25 mg 10/27/23 14:14 10/28/23 17:38 Diphenhydramine Capsule 25 Mg Cap PO 11/26/23 14:13 25 mg Q8H PRN Administration Itching Docusate Sodium 100 mg 10/27/23 21:00 10/29/23 08:39 Docusate Sodium 100 Mg Cap PO 11/26/23 20:59 100 mg BID YUN Administration Escitalopram Oxalate 10 mg 10/28/23 09:00 10/29/23 08:27 Escitalopram Oxalate 10 Mg Tab PO 11/27/23 08:59 10 mg QAM YUN Administration Fluticasone Furoate 1 puffs 10/28/23 09:00 10/29/23 08:28 Fluticasone Furoate 100mcg 14 Puffs/Inhaler INH 11/27/23 08:59 1 puffs DAILY YUN Administration Protocol Furosemide 40 mg 10/28/23 09:00 10/29/23 08:27 Furosemide 40 Mg Tab PO 11/27/23 08:59 40 mg QAM YUN Administration Hydromorphone HCl 1 mg 10/29/23 10:42 10/29/23 16:55 Hydromorphone Inj 0.5 Mg/0.5 Ml Syr IV 11/10/23 14:13 1 mg Q4H PRN Administration Pain or Pre PT Acetaminophen 1,000 mg in 100 mls @ 400 mls/hr 10/27/23 14:14 10/28/23 11:42 Ofirmev IV 10/30/23 14:13 Infused Q8H PRN Infusion MILD Pain (1,2,3) or Pre PT Cefepime HCl 2,000 mg/ Syringe 20 mls @ 5 mls/min 10/27/23 16:45 10/29/23 16:56 IV 12/08/23 16:44 5 mls/min Q8H YNU Administration Protocol Caspofungin 50 mg/ Sodium 260 mls @ 250 mls/hr 10/28/23 11:00 10/29/23 13:14 Chloride IV 11/07/23 10:59 Infused Q24H YUN Infusion Protocol Vancomycin HCl 1,250 mg/ 275 mls @ 200 mls/hr 10/29/23 18:00 10/29/23 17:23 Sodium Chloride IV 12/08/23 17:59 200 mls/hr Q12H YUN Administration Insulin Aspart 0 units 10/28/23 16:45 10/29/23 17:28 Insulin Aspart Per Unit Charge SC 11/27/23 16:44 7 units ACHS YUN Administration Magnesium Chloride 64 mg 10/28/23 09:00 10/29/23 08:27 Magnesium Chloride W/Calcium 64mg Delayed Rel Tab PO 11/27/23 08:59 64 mg QAM YUN Administration Metoprolol Tartrate 12.5 mg 10/27/23 21:00 10/29/23 08:27 Metoprolol Tartrate 25 Mg Tab PO 11/26/23 20:59 12.5 mg BID YUN Administration Montelukast Sodium 10 mg 10/27/23 21:00 10/28/23 20:41 Montelukast Sodium 10 Mg Tablet PO 11/26/23 20:59 10 mg HS YUN Administration Multivitamins 1 tab 10/28/23 09:00 10/29/23 08:28 Multivitamin Tab PO 11/27/23 08:59 1 tab QAM YUN Administration Oxycodone HCl 5 - 10 mg 10/27/23 14:14 10/29/23 06:28 Oxycodone Hcl Ir 5 Mg Tab (Immediate Release) PO 11/10/23 14:13 5 mg Q4H PRN Administration Pain or Pre PT Pantoprazole Sodium 40 mg 10/27/23 21:00 10/29/23 08:27 Pantoprazole 40 Mg Tab PO 11/26/23 20:59 40 mg BID YUN Administration Pregabalin 100 mg 10/27/23 21:00 10/29/23 08:39 Pregabalin 100 Mg Cap PO 11/26/23 20:59 100 mg BID YUN Administration Sennosides 17.2 mg 10/27/23 21:00 10/28/23 20:42 Senna 8.6 Mg Tab PO 11/26/23 20:59 Not Given HS YUN Umeclidinium/Vilanterol 1 puffs 10/28/23 09:00 10/29/23 08:28 Umeclidinium/Vilanterol 62.5/25mcg 7 Puffs/Inhaler INH 11/27/23 08:59 1 puffs DAILY YUN Administration Protocol
[2023-10-30 06:29] LABS: Hematocrit (blood only) 39.5 % (42.0-52.0); Hemoglobin 13.3 g/dl (14.0-18.0); Mean Corpuscular Hemoglobin 31.4 pg (25.0-34.0); Mean Corpuscular Hgb Conc 33.7 g/dL (32.0-36.0); Mean Corpuscular Volume 93.2 fL (80.0-100.0); Mean Platelet Volume 10.5 fL (9.4-12.4); Platelet Count 341 K/uL (130-400); RDW Coefficient of Variation 15.7 % (11.5-14.5); RDW Standard Deviation 53.8 fL (36.4-46.3); Red Blood Count 4.24 M/uL (4.70-6.10); White Blood Count 9.75 K/ul (4.8-10.8)
[2023-10-30 06:49] LABS: BUN Creatinine Ratio 22.8 (10-20); Calcium 9.3 mg/dl (8.6-10.3); Creatinine Clr Calc Pharmacy 81.6 ml/min; Est GFR (Non-African American) 84.6 ml/min; Potassium 4.2 mmol/L (3.5-5.1)
--- NOTE | 2023-10-30 08:35 | Orthopedic Progress Note ---
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 2 of the 4 cultures from the OR are growing yeast. In clinic joint aspirate from 10/18 also growing yeast. Species yet to be identified. IntraOp findings from both of his irrigation and debridements showed a fairly indolent process marked by bland synovial inflammation, abundant synovial fluid, and fairly normal-appearing cartilage. Coag negative staph growing in 1 of 4 cultures in past 24 hours. -Continue current management. Appreciate internal medicine assistance. -Infectious disease consult pending. Continue antifungal plan. Will continue antibacterials for now given the coag negative staph. -Discussed with patient that we need to definitive antifungal/antibiotic plan. -Splint discontinued to a soft dressing. Will be ready for discharge when antibiotic plan is established Disposition: Undetermined, but as early as today depending on infectious disease consult. Will continue daily soft dressing changes as an outpatient until follow-up in 10-14 days. Subjective Reports continued pain at that elbow, as expected. Appetite is good. Denies any diarrhea. Review of Systems All systems reviewed & are unremarkable except as noted in HPI & below. Physical Exam Right upper extremity: Splint and dressing taken down. Scant drainage in the JORGE (5 cc serosanguineous per shift for the last 24 hours), so it was discontinued. Wound well-approximated without erythema or active drainage. Acticoat, ABD, Kerlix wrap and Saw wrap soft dressing was applied. DNVI Constitutional WD/WN, vitals as above no acute distress and not intoxicated appearing Respiratory normal respiratory effort; no labored breathing Cardiovascular Extremities: normal capillary refill Results & Data Results & Data Laboratory Results H & H 10/28/23 10/29/23 10/30/23 Range/Units 06:41 05:18 06:04 Hgb 11.4 L 11.6 L 13.3 L (14.0-18.0) g/dl Hct 34.6 L 35.6 L 39.5 L (42.0-52.0) % Laboratory Tests 10/28/23 10/29/23 10/30/23 06:41 05:18 06:04 WBC 11.67 H 10.48 9.75 Diagnostic Findings . PG Care Time/CCT Total # of Minutes Spent Total Time Spent with Patient: Total time spent is greater than 50% in coordination of care (as documented) at patient's floor/unit and/or counseling patient: Coding Level of Care Code 75411 Post Operative Follow-Up Diagnoses Septic arthritis of elbow, right M00.9
--- NOTE | 2023-10-30 08:40 | Discharge Summary ---
Date of Service October 30, 2023 Admission HPI (Per Admitting) 67-year-old male with recurrent joint pain and effusions after failing surgical and medical management of a culture-negative septic elbow joint. Aspiration in clinic on 10/18 demonstrated yeast species. He was recommended to repeat irrigation debridement and potentially treat as a mycotic infection. Patient presented on the morning of surgery with continued symptoms. Admission Exam (Per Admitting) Right elbow with draining sinus and obvious effusion. Limited painful motion. DNVI Constitutional well developed and well nourished; no acute distress and not intoxicated appearing Respiratory normal respiratory effort; no respiratory distress Cardiovascular Extremities: normal capillary refill; no edema Skin no rashes, warm and dry Psychiatric A+Ox3, euthymic affect Principal Diagnosis Same as "Discharge Diagnosis" noted below under Discharge Instructions. Discharge Exam Right upper extremity: wound well approximated without erythema or drainage. Near FAROM with discomfort. Mild edema remains. Constitutional well developed and well nourished; no acute distress and not intoxicated appearing Respiratory normal respiratory effort; no respiratory distress Cardiovascular Extremities: normal capillary refill; no edema Skin no rashes, warm and dry Psychiatric A+Ox3, euthymic affect Discharge Data Consultations 10/27/23 14:19 Consult Hospitalist Routine 10/28/23 10:10 Consult Infectious Diseases Stat Procedures Performed Operation Date: 10/27/23 10:05 Actual Procedures s Irrigation and Debridement with (Right) - Bradley Willis MD p Right Arthrotomy Elbow(Right) - Bradley Willis MD s Radial Head Screw Removal(Right) - Bradley Willis MD Ordered Studies 10/27/23 10:05 FL elbow RT 2V Routine Hospital Course (1) Septic arthritis of elbow, right: Admitted postoperatively for parenteral empiric antibiotics and antifungals. Uncomplicated inpatient course. Remained an inpatient until cultures were finalized and a antifungal/antibacterial plan was established for outpatient care with the assistance of an infectious disease consult. On postoperative day 3, the splint and drain were discontinued. The wound was well-approximated and healing without complication. He remained inpatient while awaiting infectious disease consult from an outside institution and establishing antibiotic and antifungal regimen. He had an episode of confusion and discomfort prompting cardiac workup from the hospitalist service. Symptoms resolved and workup was unrevealing. He also had erythema develop on the dorsum of his foot. It was improving by discharge. PG Care Time/CCT Total # of Minutes Spent Total Time Spent with Patient: Total time spent is greater than 50% in coordination of care (as documented) at patient's floor/unit and/or counseling patient: Discharge Plan Discharge Items Patient Disposition: Home - Home Health Services Reason For Visit: Right Elbow Olecranon Bursitis, Effusion Right El Discharge Diagnosis: Right septic elbow joint with fungal infection Activity: Per Instructions section Non-emergency contact: Surgeon Call non-emergency contact if: your symptoms worsen, your pain is not controlled and your temperature is above 101 Follow-up/Referrals: Bradley Willis MD [Surgeon] - Delmi Arcos DO [Physician] - 11/15/23 10:00 am Ajit Moreno MD [Primary Care Provider] - (Date & Time 11/07/2023 2:00 PM Provider Ajit Moreno MD [facility] ) Diet: Carb Consistent or DM2 Addtl Attending Provider Instructions: Continue daily dressing changes at home. Keep the wound covered until follow-up . The crys were removed at the orthopedic clinic. Remain in the sling until follow-up visit. You may use your hand and fingers gently while in the sling. You can take breaks from the sling while resting and during hygiene. Pending Studies at Discharge: Yes Studies:: The surgical cultures from your elbow will continue to be monitored. You will be contacted if we need to make any changes to the medicines. Stand-Alone Forms: My [facility] [employer], Smoking Cessation Medications and DC Order Prescriptions: New oxycodone 5 mg tablet 5 - 10 mg PO Q6H MDD 6 tablets PRN (Reason: post operative pain) Qty: 18 0RF Continued (DME) CPAP Machine Misc See Rx Instructions .MEDSUPPLY Qty: 1 0RF Rx Instructions: CPAP with 7 cm H20 pressure. G47.33 (DME) CPAP Supplies Misc See Rx Instructions .MEDSUPPLY Qty: 1 0RF Rx Instructions: CPAP supplies, ResMed F20 mask, headgear, filters, tubing, water chamber. G47.33 albuterol sulfate 90 mcg/actuation HFA aerosol inhaler 2 puff INHALATION Q4H PRN (Reason: Shortness Of Breath Or Wheezing) Qty: 8.5 3RF pregabalin [Lyrica] 100 mg Capsule 100 mg PO BID cyanocobalamin (vitamin B-12) [Vitamin B-12] 1,000 mcg Tablet 1,000 mcg PO QAM aspirin 81 mg Tablet,Delayed Release (Dr/Ec) 81 mg PO QAM Qty: 30 0RF ondansetron 8 mg Tablet,Disintegrating 8 mg PO Q8H PRN (Reason: Nausea) clobetasol 0.05 % Cream 1 applic TOPICAL BID PRN (Reason: Rash) triamcinolone acetonide [Triderm] 0.1 % Cream 1 applic TOPICAL BID PRN (Reason: Rash) levalbuterol HCl 1.25 mg/3 mL solution for nebulization 1.25 mg INHALATION Q4H PRN (Reason: Wheezing) prochlorperazine maleate [Compazine] 5 mg tablet 5 mg PO Q6H PRN (Reason: NAUSEA/VOMITING) loperamide [Imodium A-D] 2 mg Tablet 4 mg PO TID PRN (Reason: Diarrhea) montelukast [Singulair] 10 mg tablet 10 mg PO HS furosemide [Lasix] 40 mg tablet 40 mg PO QAM Trelegy Ellipta 100-62.5-25 mcg blister with device 1 inh inhalation DAILY Qty: 60 0RF atorvastatin [Lipitor] 80 mg tablet 80 mg PO QAM magnesium chloride [Mag 64] 64 mg tablet,delayed release (DR/EC) 64 mg PO QAM pantoprazole [Protonix] 40 mg tablet,delayed release (DR/EC) 40 mg PO BID 30 Days Qty: 60 2RF escitalopram oxalate [Lexapro] 10 mg tablet 10 mg PO QAM metoprolol tartrate 25 mg tablet 12.5 mg PO BID Qty: 30 0RF Discontinued cefdinir 300 mg Capsule 300 mg PO BID Discharge Orders: Discharge Order (Routine); Ordered 11/02/23 Ordered By: Sylwia Hobson/Other Patient Handouts: Abscess Drainage Admission Data Admit Date/Time: 10/28/23 13:10 Attending Provider: Bradley Willis Admit Provider: Bradley Willis Primary Care Provider: Ajit Moreno Other Providers: Amrik Chacon; Edenilson Andrade; Marlen Tomas; Jefferson Altman I.; Jesús Rachel II; Janelle Olivares; Regis Rothman; Mundo Chaudhry; Margaux Delarosa; Estevan,Fax; [facility]; Manny Rothman Other Interventions: Discharge Summary Assessment (RN) Last Done: 11/02/23 16:46
--- NOTE | 2023-10-30 11:45 | Hospitalist Progress Note ---
Date of Service October 30, 2023 Assessment & Plan (1) Olecranon bursitis, right elbow: (2) Effusion of elbow joint, right: (3) COPD with emphysema: (4) Hypertension: (5) Neuropathy: (6) GERD (gastroesophageal reflux disease): (7) Anxiety: Plan Mr. Franks is a 67yo M with PMH of COPD, obstructive sleep apnea on 2 L oxygen nightly, hyperlipidemia, atherosclerosis of aorta, GERD, obesity, chronic pain syndrome, tobacco use disorder, history of venous thrombosis and embolism, depression who underwent R Elbow Arthrotomy, bursectomy, irrigation and Debridement with Radial Head Screw Removal by Dr. Willis on 10/26. #R elbow olecranon bursitis s/p I&D Recurrent infection, last admitted in July 2023 for septic bursitis with washout Cultures negative at that time, discharged on 4 weeks of IV Rocephin per direction of ID POD #2 s/p R Elbow Arthrotomy, bursectomy, irrigation and Debridement with Radial Head Screw Removal by Dr. Willis on 10/26 First intraop culture growing preliminary yeast, continue to follow Continue empiric cefepime, Vanco, Capsofungin Discussed with [facility] ID, awaiting final consults Spoke to Dr Tomas on-call--will likely need IV abx Concern remains about yeast that has been present on the followin/19: elbow joint aspiration, joint capsule 10/18: elbow joint Patient has notably completed IV CTX and s/p ID x 2, untreated organism remains to be yeast Await formal ID recommendations for dosing and duration #COPD #Chronic hypoxic resp failure #TAYLOR on supplemental O2 On baseline 2L O2 Schedule Duonebs given wheezing on exam Continue home Trelegy, Singulair, PRN albuterol #Hypomagnesia Replaced, continue home slow mag daily, monitor with daily labs #Hypertension Normotensive Continue metoprolol and Lasix #GERD Continue PPI #Hyperlipidemia Continue statin #Depression Continue SSRI Thank you for this consultation. We will follow the patient with you during their hospital stay. You can reach a member of the [facility] Hospitalist Team 30/08 via [employer]. Admission and Anticipated Discharge Date Admission Date: October 28, 2023 Subjective NAEO Reports pain is better controlled overall Physical Exam Constitutional: WD/WN, vitals as above Respiratory: normal respiratory effort, lungs clear to auscultation Cardiovascular: RRR, no murmur, no edema Gastrointestinal (Abdomen): normal bowel sounds, soft, nontender, no hepatosplenomegaly Musculoskeletal: right elbow in cast and sling,motor sensation intact Results & Data Results & Data Vital Signs (Past 12 Hours) Vital Signs Temp Pulse Resp BP Pulse Ox O2 Del Method O2 Flow Rate 10/30/23 07:23 37.1 C 75 18 114/72 99 Nebulizer 10/30/23 07:12 77 20 90 Nasal Cannula 2 10/30/23 00:16 70 19 90 Nasal Cannula 2 Laboratory Results Short CBC 10/30/23 Range/Units 06:04 WBC 9.75 (4.8-10.8) K/ul Hgb 13.3 L (14.0-18.0) g/dl Hct 39.5 L (42.0-52.0) % Plt Count 341 (130-400) K/uL BMP 10/30/23 06:04 Sodium 138 Potassium 4.2 Chloride 98 Carbon Dioxide 35 H BUN 21 Creatinine 0.92 Glucose 92 Calcium 9.3 Medications Administered Home Medications Medication Instructions Recorded Confirmed Last Taken pregabalin 100 mg capsule (Lyrica) 100 mg PO BID 10/16/17 10/27/23 10/26/23 08:00 ondansetron 8 mg disintegrating 8 mg PO Q8H PRN Nausea 04/07/22 10/27/23 10/24/23 tablet clobetasol 0.05 % topical cream 1 applic topical BID PRN Rash 12/29/22 10/27/23 Unknown levalbuterol HCl 1.25 mg/3 mL 1.25 mg inhalation Q4H PRN Wheezing 12/29/22 10/27/23 10/20/23 solution for nebulization triamcinolone acetonide 0.1 % 1 applic topical BID PRN Rash 12/29/22 10/27/23 Unknown topical cream (Triderm) cyanocobalamin (vitamin B-12) 1,000 mcg PO QAM 03/08/23 10/27/23 10/26/23 08:00 1,000 mcg tablet (Vitamin B-12) aspirin 81 mg tablet,delayed 81 mg PO QAM #30 tabs 03/11/23 10/27/23 10/26/23 08:00 release pantoprazole 40 mg tablet,delayed 40 mg PO BID 30 days #60 tabs 02/28/24 09/19/24 09/18/24 08:00 release (Protonix) albuterol sulfate 90 mcg/actuation 2 puff inhalation Q4H PRN 04/26/23 10/27/23 10/25/23 aerosol inhaler Shortness Of Breath Or Wheezing #8.5 grams escitalopram oxalate 10 mg tablet 10 mg PO QAM 06/13/23 10/27/23 10/26/23 08:00 (Lexapro) CPAP Machine #1 ea 06/24/23 08/02/23 Unknown CPAP Supplies #1 ea 06/24/23 08/02/23 Unknown metoprolol tartrate 25 mg tablet 12.5 mg (1/2 x 25 mg) PO BID #30 08/09/23 10/27/23 10/26/23 21:00 tabs furosemide 40 mg tablet (Lasix) 40 mg PO QAM Fluid accumulation, 10/10/23 10/27/23 10/24/23 weight gain loperamide 2 mg tablet (Imodium 4 mg PO TID PRN Diarrhea 10/10/23 10/27/23 10/25/23 A-D) montelukast 10 mg tablet 10 mg PO HS 10/10/23 10/27/23 10/26/23 08:00 (Singulair) prochlorperazine maleate 5 mg 5 mg PO Q6H PRN NAUSEA/VOMITING 10/10/23 10/27/23 10/20/23 tablet (Compazine) fluticasone fur. 100 mcg-umeclid 1 inh inhalation DAILY #60 ea 10/11/23 10/27/23 10/27/23 07:00 62.5 mcg-vilant 25 mcg inhalat.powder (Trelegy Ellipta) atorvastatin 80 mg tablet (Lipitor) 80 mg PO QAM 10/19/23 10/27/23 10/26/23 08:00 cefdinir 300 mg capsule 300 mg PO BID 10/19/23 10/27/23 10/26/23 08:00 magnesium chloride 64 mg 64 mg PO QAM 10/19/23 10/27/23 10/26/23 08:00 (magnesium chloride) tablet,delayed release (Mag 64) Active Medications Generic Name Dose Route Start Last Admin Trade Name Freq PRN Reason Stop Dose Admin Albuterol 3 ml 10/28/23 13:00 10/30/23 12:41 Albut/Ipratrop 3mg/0.5mg Neb 3 Ml Vial NEB 11/27/23 12:59 3 ml Q6R YUN Administration Protocol Aspirin 81 mg 10/28/23 09:00 10/30/23 08:16 Aspirin 81 Mg Ectab PO 11/27/23 08:59 81 mg QAM YUN Administration Atorvastatin Calcium 80 mg 10/28/23 09:00 10/30/23 08:16 Atorvastatin 40 Mg Tab PO 11/27/23 08:59 80 mg QAM YUN Administration Cyanocobalamin 1,000 mcg 10/28/23 09:00 10/30/23 08:17 Cyanocobalamin (B-12) 500 Mcg Tablet PO 11/27/23 08:59 1,000 mcg QAM YUN Administration Diphenhydramine HCl 25 mg 10/27/23 14:14 10/28/23 17:38 Diphenhydramine Capsule 25 Mg Cap PO 11/26/23 14:13 25 mg Q8H PRN Administration Itching Docusate Sodium 100 mg 10/27/23 21:00 10/30/23 08:16 Docusate Sodium 100 Mg Cap PO 11/26/23 20:59 100 mg BID YUN Administration Escitalopram Oxalate 10 mg 10/28/23 09:00 10/30/23 08:17 Escitalopram Oxalate 10 Mg Tab PO 11/27/23 08:59 10 mg QAM YUN Administration Fluticasone Furoate 1 puffs 10/28/23 09:00 10/30/23 08:15 Fluticasone Furoate 100mcg 14 Puffs/Inhaler INH 11/27/23 08:59 1 puffs DAILY YUN Administration Protocol Furosemide 40 mg 10/28/23 09:00 10/30/23 08:17 Furosemide 40 Mg Tab PO 11/27/23 08:59 40 mg QAM YUN Administration Hydromorphone HCl 1 mg 10/29/23 10:42 10/30/23 08:06 Hydromorphone Inj 0.5 Mg/0.5 Ml Syr IV 11/10/23 14:13 1 mg Q4H PRN Administration Pain or Pre PT Cefepime HCl 2,000 mg/ Syringe 20 mls @ 5 mls/min 10/27/23 16:45 10/30/23 09:27 IV 12/08/23 16:44 5 mls/min Q8H YUN Administration Protocol Caspofungin 50 mg/ Sodium 260 mls @ 250 mls/hr 10/28/23 11:00 10/30/23 11:02 Chloride IV 11/07/23 10:59 250 mls/hr Q24H YUN Administration Protocol Vancomycin HCl 1,250 mg/ 275 mls @ 200 mls/hr 10/29/23 18:00 10/30/23 09:18 Sodium Chloride IV 12/08/23 17:59 Infused Q12H YUN Infusion Insulin Aspart 0 units 10/28/23 16:45 10/30/23 12:21 Insulin Aspart Per Unit Charge SC 11/27/23 16:44 5 units ACHS YUN Administration Magnesium Chloride 64 mg 10/28/23 09:00 10/30/23 08:17 Magnesium Chloride W/Calcium 64mg Delayed Rel Tab PO 11/27/23 08:59 64 mg QAM YUN Administration Metoprolol Tartrate 12.5 mg 10/27/23 21:00 10/30/23 08:17 Metoprolol Tartrate 25 Mg Tab PO 11/26/23 20:59 12.5 mg BID YUN Administration Montelukast Sodium 10 mg 10/27/23 21:00 10/29/23 20:34 Montelukast Sodium 10 Mg Tablet PO 11/26/23 20:59 10 mg HS YUN Administration Multivitamins 1 tab 10/28/23 09:00 10/30/23 08:17 Multivitamin Tab PO 11/27/23 08:59 1 tab QAM YUN Administration Oxycodone HCl 5 - 10 mg 10/27/23 14:14 10/30/23 06:00 Oxycodone Hcl Ir 5 Mg Tab (Immediate Release) PO 11/10/23 14:13 10 mg Q4H PRN Administration Pain or Pre PT Pantoprazole Sodium 40 mg 10/27/23 21:00 10/30/23 08:17 Pantoprazole 40 Mg Tab PO 11/26/23 20:59 40 mg BID YUN Administration Pregabalin 100 mg 10/27/23 21:00 10/30/23 08:16 Pregabalin 100 Mg Cap PO 11/26/23 20:59 100 mg BID YUN Administration Sennosides 17.2 mg 10/27/23 21:00 10/29/23 20:35 Senna 8.6 Mg Tab PO 11/26/23 20:59 Not Given HS YUN Umeclidinium/Vilanterol 1 puffs 10/28/23 09:00 10/30/23 08:14 Umeclidinium/Vilanterol 62.5/25mcg 7 Puffs/Inhaler INH 11/27/23 08:59 1 puffs DAILY YUN Administration Protocol
--- NOTE | 2023-10-30 15:04 | Pharmacy Report ---
Pharmacy Glycemic Short Note 2 - Date of Service October 30, 2023 - Glycemic Short BSG Results (Last 24 hours): 10/29/23 10/29/23 10/30/23 16:41 20:16 06:04 Glucose 92 POC Glucose 110 H 87 10/30/23 10/30/23 07:53 11:40 Glucose POC Glucose 89 113 H OUTPATIENT ANTIDIABETIC REGIMEN: * none * HbA1c 6.2% (10/10/23) ASSESSMENT: * Florentin is a 67 YOM admitted with elbow bursitis and an A1c suggestive of glycemic dysfunction. Pharmacy has been consulted to assist with glycemic management while inpatient due to IV steroid administration. * BSGs slightly elevated post-operative after steroid administration, no indication for basal insulin at this time as Fasting BSGs within goal range and no ongoing steroids. He is receiving IV antimicrobials: caspofungin, cefepime, vancomycin. * Added Novolog at a weight based stress 1-2. PLAN FOR INPATIENT GLYCEMIC CONTROL: * Hold outpatient oral diabetes medications * Basal insulin * No indication at this time * Bolus insulin * NovoLog per scale ACHS or Q6hrs while NPO * Goal Range: Low 120 mg/dL - High 160 mg/dL * Correction Factor: 35 mg/dL/unit * Nutritional / Prandial insulin per carb ratio of 1 unit per 12 grams CHO consumed
[2023-10-31] MEDS: VANCOMYCIN LEVEL ONE (05:39)
[2023-10-31 06:03] LABS: Creatinine Clr Calc Pharmacy 72.2 ml/min; Est GFR (African American) 84.5 ml/min; Est GFR (Non-African American) 72.9 ml/min
--- NOTE | 2023-10-31 10:02 | Pharmacy Report ---
Pharmacy PK ABX Note - Date of Service October 31, 2023 - Assessment and Plan Assessment 67 year old M receiving vancomycin, cefepime, and caspofungin for treatment of right olecranon bursitis. * Day #5 of antimicrobial therapy. * Went to OR on 10/27/23 for I&D. OR cultures growing yeast (identification to follow) and coagulase-negative Staphylococcus (sensitive to Bactrim, vancomycin, and daptomycin). * Labs/Vitals: Afebrile. Mild leukocytosis. Renal function has been stable, SCr slightly higher today at 1.04 mg/dL, will follow. * Infectious disease consulted. Plan Vancomycin * Current regimen: 1250 mg IV every 12 hours * Trough level obtained 10/31/23 resulted as 14.2 mcg/mL. This is predicted to achieve target AUC/KIKE of 400-600 mg/L.hr * Predicted AUC at steady state: 588 mg/L.hr * Continue 1250 mg IV every 12 hours * Will repeat level in the next 48-72 hours if therapy is continued and/or change in patient clinical status Cefepime 2 g IV every 8h Caspofungin 50mg IV q24h Pharmacy will continue to follow and will adjust dose/frequency as necessary. Thank you. Pharmacy has transitioned to AUC monitoring for vancomycin. AUC/KKIE is the preferred PK/PD target and is associated with decreased risk of nephrotoxicity compared to traditional trough targets.
--- NOTE | 2023-10-31 10:28 | Orthopedic Progress Note ---
Date of Service October 31, 2023 Assessment & Plan (1) Septic arthritis of elbow, right: - From an orthopedic standpoint, he is stable for discharge, however we do not want to discharge him until we know the medications he should be sent home on per infectious disease. We are awaiting this consultation. Will hold off on discharge until ID recommendations are in. -Continue with daily dressing changes. Subjective Operation Date: 10/27/23 10:05 Actual Procedures p Right Elbow Arthrotomy, bursectomy, irrigation and Debridement with Radial Head Screw Removal(Right) - Bradley Willis MD POD 4. He is resting comfortably in his hospital bed today. States that his right elbow is a little painful. Over the weekend, he was taken out of the splint and placed in a soft dressing. His drain was also removed this weekend. He is anxious to go home. We are awaiting infectious disease consultation. As of this morning when I rounded on him, there was no consultation note and. There is no note as well as I am dictating this progress check. Review of Systems All systems reviewed & are unremarkable except as noted in HPI & below. Physical Exam General: Alert and oriented. No acute distress. Right elbow: Soft dressing and Saw wrap in place. No visible saturation. Sensation intact. Distal pulse palpated. Cap refill less than 3 seconds. Results & Data Results & Data Laboratory Results . Diagnostic Findings . PG Care Time/CCT Total # of Minutes Spent Total Time Spent with Patient: Total time spent is greater than 50% in coordination of care (as documented) at patient's floor/unit and/or counseling patient: Coding Level of Care Code 30303 Post Operative Follow-Up Diagnoses Septic arthritis of elbow, right M00.9
--- NOTE | 2023-10-31 11:51 | Ultrasound Report ---
LEFT LOWER EXTREMITY VENOUS DOPPLER HISTORY: Acute pain and swelling of left lower leg Dorsal foot redness/firmness r/o phleblitis COMPARISON STUDY: None. FINDINGS: There is normal compressibility, flow, and augmentation within the left lower extremity lilly p venous system. IMPRESSION: No DVT within the left lower extremity. ACT 112: Negative or not required by law. Electronically signed by: Colby Mata M.D. 10/31/2023 11:50 AM
--- NOTE | 2023-10-31 13:30 | Hospitalist Progress Note ---
Date of Service October 31, 2023 Assessment & Plan (1) Olecranon bursitis, right elbow: (2) Effusion of elbow joint, right: (3) COPD with emphysema: (4) Hypertension: (5) Neuropathy: (6) GERD (gastroesophageal reflux disease): (7) Anxiety: Plan Mr. Franks is a 67yo M with PMH of COPD, obstructive sleep apnea on 2 L oxygen nightly, hyperlipidemia, atherosclerosis of aorta, GERD, obesity, chronic pain syndrome, tobacco use disorder, history of venous thrombosis and embolism, depression who underwent R Elbow Arthrotomy, bursectomy, irrigation and Debridement with Radial Head Screw Removal by Dr. Willis on 10/26. #R elbow olecranon bursitis s/p I&D Recurrent infection, last admitted in July 2023 for septic bursitis with washout Cultures negative at that time, discharged on 4 weeks of IV Rocephin per direction of ID POD #4 s/p R Elbow Arthrotomy, bursectomy, irrigation and Debridement with Radial Head Screw Removal by Dr. Willis on 10/26 First intraop culture growing preliminary yeast, continue to follow Continue empiric cefepime, Vanco, Capsofungin Discussed with [facility] ID, awaiting final consults Spoke to Dr Tomas on-call--will likely need IV abx Concern remains about yeast that has been present on the followin/19: elbow joint aspiration, joint capsule 10/18: elbow joint Patient has notably completed IV CTX and s/p ID x 2, untreated organism remains to be yeast Await formal ID recommendations for dosing and duration #COPD #Chronic hypoxic resp failure #TAYLOR on supplemental O2 On baseline 2L O2 Schedule Duonebs given wheezing on exam Continue home Trelegy, Singulair, PRN albuterol #Hypomagnesia Replaced, continue home slow mag daily, monitor with daily labs #Hypertension Normotensive Continue metoprolol and Lasix #GERD Continue PPI #Hyperlipidemia Continue statin #Depression Continue SSRI DVT ppx: per primary, would recommend initiating chemical prophylaxis if able from a orthopedics standpoint Dispo: Per primary, pt medically stable but will likely require IV medications at discharge, awaiting formal ID recs Thank you for this consultation. We will follow the patient with you during their hospital stay. You can reach a member of the [facility] Hospitalist Team 30/08 via [employer]. Admission and Anticipated Discharge Date Admission Date: October 28, 2023 Subjective NAEO He reports redness and pain to the top aspect of L foot. Denies trauma or itching. States it is no longer painful. He denies f/c/s, chest pain, n/v/d, abd pain. He reports chronic SOB. He is hopeful to go home soon. Review of Systems Review of Systems: All systems reviewed & are unremarkable except as noted in HPI & below Physical Exam Physical Exam: Gen: WD/WN, chronically ill M, sitting at edge of bed, NAD, A&O x3 HEENT: Normocephalic, atraumatic, conjunctivae moist, sclerae anicteric, mucous membranes moist. Lung: Clear to Auscultation bilaterally, no wheezes/rales/rhonchi Heart: Regular rate, regular rhythm, no murmurs, rubs, or gallops Abdomen: Soft, NT, ND +BS x 4 Extremities: No edema, RUE dressing CDI Skin: Warm, no rash, negative turgor. Results & Data Results & Data Vital Signs (Past 12 Hours) Vital Signs Temp Pulse Resp BP Pulse Ox O2 Del Method O2 Flow Rate 10/31/23 11:59 71 18 86 L Room Air 10/31/23 08:21 36.8 C 92 Nasal Cannula 2 10/31/23 08:00 Nasal Cannula 2 10/31/23 07:17 36.4 C L 90 18 124/77 Nasal Cannula 2 10/31/23 07:03 89 20 90 Room Air 10/31/23 01:34 85 16 88 L Nasal Cannula 3 Laboratory Results [facility] 10/31/23 05:21 Creatinine 1.04 Medications Administered Current Inpatient Medications Albuterol (Albuterol Hfa 8 Gm Inhaler) 2 puffs INH Q4H PRN PRN Reason: Shortness Of Breath Or Wheezing Stop: 11/26/23 14:25 Albuterol (Albut/Ipratrop 3mg/0.5mg Neb 3 Ml Vial) 3 ml NEB Q6R YUN; Protocol Stop: 11/27/23 12:59 Last Admin: 10/31/23 11:58 Dose: 3 ml Aspirin (Aspirin 81 Mg Ectab) 81 mg PO QAM YUN Stop: 11/27/23 08:59 Last Admin: 10/31/23 07:26 Dose: 81 mg Atorvastatin Calcium (Atorvastatin 40 Mg Tab) 80 mg PO QAM [facility] Stop: 11/27/23 08:59 Last Admin: 10/31/23 07:25 Dose: 80 mg Bisacodyl (Bisacodyl 10 Mg Supp) 10 mg FL DAILY PRN PRN Reason: Constipation Stop: 11/26/23 14:13 Clobetasol Propionate (Clobetasol Propionate 0.05% Cream 15 Gm Tube) 1 appln TOP BID PRN PRN Reason: Rash Stop: 11/26/23 14:25 Cyanocobalamin (Cyanocobalamin (B-12) 500 Mcg Tablet) 1,000 mcg PO QAM YUN Stop: 11/27/23 08:59 Last Admin: 10/31/23 07:27 Dose: 1,000 mcg Diphenhydramine HCl (Diphenhydramine Capsule 25 Mg Cap) 25 mg PO Q8H PRN PRN Reason: Itching Stop: 11/26/23 14:13 Last Admin: 10/28/23 17:38 Dose: 25 mg Docusate Sodium (Docusate Sodium 100 Mg Cap) 100 mg PO BID [facility] Stop: 11/26/23 20:59 Last Admin: 10/31/23 07:33 Dose: 100 mg Escitalopram Oxalate (Escitalopram Oxalate 10 Mg Tab) [facility] Stop: 11/27/23 08:59 Last Admin: 10/31/23 07:27 Dose: 10 mg Fluticasone Furoate (Fluticasone Furoate 100mcg 14 Puffs/Inhaler) 1 puffs INH DAILY [facility]; Protocol Stop: 11/27/23 08:59 Last Admin: 10/31/23 07:34 Dose: 1 puffs Furosemide (Furosemide 40 Mg Tab) 40 mg PO QAM [facility] Stop: 11/27/23 08:59 Last Admin: 10/31/23 07:27 Dose: 40 mg Hydromorphone HCl (Hydromorphone Inj 0.5 Mg/0.5 Ml Syr) 1 mg IV Q4H PRN PRN Reason: Pain or Pre PT Stop: 11/10/23 14:13 Last Admin: 10/31/23 00:25 Dose: 1 mg Cefepime HCl 2,000 mg/ Syringe 20 mls @ 5 mls/min IV Q8H [facility]; Protocol Stop: 12/08/23 16:44 Last Admin: 10/31/23 07:35 Dose: 5 mls/min Caspofungin 50 mg/ Sodium (Chloride) 260 mls @ 250 mls/hr IV Q24H [facility]; Protocol Stop: 11/07/23 10:59 Last Infusion: 10/31/23 11:37 Dose: Infused Vancomycin HCl 1,250 mg/ (Sodium Chloride) 275 mls @ 200 mls/hr IV Q12H [facility] Stop: 12/08/23 17:59 Last Infusion: 10/31/23 07:05 Dose: Infused Insulin Aspart (Insulin Aspart Per Unit Charge) 0 units SC ACHS [facility] Stop: 11/27/23 16:44 Last Admin: 10/31/23 12:23 Dose: 4 units Levalbuterol HCl (Levalbuterol 1.25 Mg/3 Ml Neb) 1.25 mg INH Q4R PRN PRN Reason: Wheezing Stop: 11/26/23 14:25 Loperamide HCl (Loperamide Hcl 2 Mg Cap) 4 mg PO TID PRN PRN Reason: Diarrhea Stop: 11/26/23 16:13 Magnesium Chloride (Magnesium Chloride W/Calcium 64mg Delayed Rel Tab) 64 mg PO QAM [facility] Stop: 11/27/23 08:59 Last Admin: 10/31/23 07:27 Dose: 64 mg Magnesium Hydroxide (Magnesium Hydroxide Susp 30 Ml Udc) 30 ml PO Q6H PRN PRN Reason: Constipation Stop: 11/26/23 14:13 Metoclopramide HCl (Metoclopramide Hcl Inj 5 Mg/Ml 2 Ml Vial) 10 mg IV Q6H PRN PRN Reason: Nausea And Vomiting Stop: 11/26/23 14:13 Metoprolol Tartrate (Metoprolol Tartrate 25 Mg Tab) 12.5 mg PO BID [facility] Stop: 11/26/23 20:59 Last Admin: 10/31/23 07:26 Dose: 12.5 mg Miscellaneous Information (Vancomycin Consult Active) 1 each N/A UD PRN PRN Reason: Consult Stop: 11/26/23 16:30 Miscellaneous Information (Pharmacy Glycemic Mgmt Consult) 1 each N/A UD PRN; Protocol PRN Reason: Consult Stop: 11/27/23 16:31 Montelukast Sodium (Montelukast Sodium 10 Mg Tablet) 10 mg PO HS [facility] Stop: 11/26/23 20:59 Last Admin: 10/30/23 20:26 Dose: 10 mg Multivitamins (Multivitamin Tab) 1 tab PO QAM YUN Stop: 11/27/23 08:59 Last Admin: 10/31/23 07:27 Dose: 1 tab Naloxone HCl (Naloxone Hcl 0.4 Mg/1 Ml Vial/Carp) 0.1 mg IV Q5M PRN PRN Reason: Oversedation/Resp Depression Stop: 11/26/23 14:13 Ondansetron HCl (Ondansetron Inj 2 Mg/Ml 2 Ml Vial) 4 mg IV Q6H PRN PRN Reason: Nausea And Vomiting Stop: 11/26/23 14:13 Oxycodone HCl (Oxycodone Hcl Ir 5 Mg Tab (Immediate Release)) 5 - 10 mg PO Q4H PRN PRN Reason: Pain or Pre PT Stop: 11/10/23 14:13 Last Admin: 10/31/23 07:33 Dose: 5 mg Pantoprazole Sodium (Pantoprazole 40 Mg Tab) 40 mg PO BID [facility] Stop: 11/26/23 20:59 Last Admin: 10/31/23 07:25 Dose: 40 mg Pregabalin (Pregabalin 100 Mg Cap) 100 mg PO BID [facility] Stop: 11/26/23 20:59 Last Admin: 10/31/23 07:34 Dose: 100 mg Prochlorperazine (Prochlorperazine Maleate 5 Mg Tab) 5 mg PO Q6H PRN PRN Reason: NAUSEA/VOMITING Stop: 11/26/23 14:25 Sennosides (Senna 8.6 Mg Tab) 17.2 mg PO HS [facility] Stop: 11/26/23 20:59 Last Admin: 10/30/23 20:29 Dose: Not Given Triamcinolone Acetonide (Triamcinolone Acet 0.1% Cr 15 Gm Tube) 1 appln TOP BID PRN PRN Reason: Rash Stop: 11/26/23 14:25 Umeclidinium/Vilanterol (Umeclidinium/Vilanterol 62.5/25mcg 7 Puffs/Inhaler) 1 puffs INH DAILY [facility]; Protocol Stop: 11/27/23 08:59 Last Admin: 10/31/23 07:35 Dose: 1 puffs
--- NOTE | 2023-10-31 14:00 | Infectious Disease Consult ---
Date of Service October 31, 2023 Telehealth Information I performed this visit using a real-time telehealth connection between my location and the patients location ([facility]). After connecting through interactive tele-video, patient was identified by name and date of and/or wristband check.Patient (or authorized healthcare it sales representative) was informed that this was a telemedicine visit and it was being conducted confidentially over secure lines. My office door was closed and no one else was present in the room with me.Patient (or authorized healthcare it sales representative) provided consent to proceed with the visit, expressed an understanding of privacy and security of the telemedicine visit, and gave permission to have a hospital it sales representative in the room in order to assist with the visit and to conduct portions of the visit, as needed. I informed the patient (or authorized healthcare it sales representative) that I reviewed their record and presented the opportunity for them to ask any questions regarding the visit today. The patient agreed to participate. Assessment & Plan (1) Olecranon bursitis, right elbow: (2) Type 2 diabetes mellitus: (3) Septic arthritis of elbow, right: (4) COPD with emphysema: (5) Multiple pulmonary nodules: (6) Pulmonary nodule seen on imaging study: (7) Compression fracture of L5 vertebra: (8) Closed fracture of radial head: (9) Closed compression fracture of lumbar vertebra: Plan Assessment: 67-year-old male with past medical history significant for hyperlipidemia, COPD, obstructive sleep apnea on 2 L oxygen nightly, atherosclerosis of aorta, GERD, obesity, chronic pain syndrome, tobacco use disorder, history of venous thrombosis and embolism, depression, and recurrent elbow effusion and bursal sinus tract after formal I&D and prolonged antibiotic treatment for culture-negative sepsis. who presented to [facility] on 10/27/2023 as a direct admission after Ortho office visit on 10/24/2023 with concern for septic arthritis vs bursitis of right elbow. Pt admitted and taken to OR on 10/27/2023 which showed a chronic appearing cystlike formation throughout the bursa that was decorticated. The sinus tract through the cubital tunnel to the joint persisted. No gross purulence. Lateral arthrotomy made through the Whitley interval. Frond-like synovitis was debrided. Some loose fibrinous material in the joint was encountered and debrided. The titanium screws required core reaming to remove. Radial head cartilage remained stable. OR cultures (+) Coag neg staph and Yeast no danae albicans. Plan: - Recommend continuing Caspofungin IV and Vancomycin IV. Given chronicity of patient's disease and that fact that is did reoccur despite antibiotic management, would recommend 6 weeks of total IV treatment with previous mentioned antimicrobials. - Recommend CBC, CMP, and Vancomycin trough weekly. - we will sign off, will not be actively following or monitoring the patient, please schedule an appointment with ID as this will be necessary for monitoring patient. History of Present Illness History of Present Illness Reason for consult: elbow infection 67-year-old male with past medical history significant for hyperlipidemia, COPD, obstructive sleep apnea on 2 L oxygen nightly, atherosclerosis of aorta, GERD, obesity, chronic pain syndrome, tobacco use disorder, history of venous thrombosis and embolism, depression, and recurrent elbow effusion and bursal sinus tract after formal I&D and prolonged antibiotic treatment for culture- negative sepsis. who presented to [facility] on 10/27/2023 as a direct admission after Ortho office visit on 10/24/2023 with concern for septic arthritis vs bursitis of right elbow. Pt admitted and taken to OR on 10/27/2023 which showed a chronic appearing cystlike formation throughout the bursa that was decorticated. The sinus tract through the cubital tunnel to the joint persisted. No gross purulence. Lateral arthrotomy made through the Whitley interval. Frond-like synovitis was debrided. Some loose fibrinous material in the joint was encountered and debrided. The titanium screws required core reaming to remove. Radial head cartilage remained stable. OR cultures (+) Coag neg staph and Yeast no danae albicans. ID consulted for evaluation and management. Allergies Allergy/AdvReac Type Severity Reaction Status Date / Time No Known Allergies Allergy Verified 10/27/23 08:43 Home Medications Medication Instructions Recorded Confirmed Type pregabalin 100 mg capsule (Lyrica) 100 mg PO BID 10/16/17 10/27/23 History ondansetron 8 mg disintegrating 8 mg PO Q8H PRN Nausea 04/07/22 10/27/23 History tablet clobetasol 0.05 % topical cream 1 applic topical BID PRN Rash 12/29/22 10/27/23 History levalbuterol HCl 1.25 mg/3 mL 1.25 mg inhalation Q4H PRN Wheezing 12/29/22 10/27/23 History solution for nebulization triamcinolone acetonide 0.1 % 1 applic topical BID PRN Rash 12/29/22 10/27/23 History topical cream (Triderm) cyanocobalamin (vitamin B-12) 1,000 mcg PO QAM 03/08/23 10/27/23 History 1,000 mcg tablet (Vitamin B-12) aspirin 81 mg tablet,delayed 81 mg PO QAM #30 tabs 03/11/23 10/27/23 Rx release pantoprazole 40 mg tablet,delayed 40 mg PO BID 30 days #60 tabs 04/06/23 10/27/23 Rx release (Protonix) albuterol sulfate 90 mcg/actuation 2 puff inhalation Q4H PRN 04/26/23 10/27/23 Rx aerosol inhaler Shortness Of Breath Or Wheezing #8.5 grams escitalopram oxalate 10 mg tablet 10 mg PO QAM 06/13/23 10/27/23 History (Lexapro) CPAP Machine #1 ea 06/24/23 08/02/23 Rx CPAP Supplies #1 ea 06/24/23 08/02/23 Rx metoprolol tartrate 25 mg tablet 12.5 mg (1/2 x 25 mg) PO BID #30 08/09/23 10/27/23 Rx tabs furosemide 40 mg tablet (Lasix) 40 mg PO QAM Fluid accumulation, 10/10/23 10/27/23 History weight gain loperamide 2 mg tablet (Imodium 4 mg PO TID PRN Diarrhea 10/10/23 10/27/23 History A-D) montelukast 10 mg tablet 10 mg PO HS 10/10/23 10/27/23 History (Singulair) prochlorperazine maleate 5 mg 5 mg PO Q6H PRN NAUSEA/VOMITING 10/10/23 10/27/23 History tablet (Compazine) fluticasone fur. 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 Saw vascular: started on [id number] and Eliquis. Eliquis was then D/C by pulmonary 04/2023. Pt had normal f/u chest CTA 06/20/23 Irregular cardiac rhythm pt noted to have 25beats of Nonsustained VTach vs PAT day of discharge (08/09/23) [facility]; pt denied sx; started on metoprolol and ordered Zio monitor and Cardio referral Peripheral vascular disease Chronic diastolic heart failure PCP monitoring; ECHO 10/03/23 with nl EF and Gr I DD. 'no changes to medications needed at this time. Continue lasix daily' per PCP Chronic back pain "hx broken back"no back surgery Arthritis GERD (gastroesophageal reflux disease) Hx pulmonary embolism 2016 developed after a bad fall (was on coumadin for 1 year) Cardiac murmur no significant valve disease per 10/03/23 ECHO Hypertension Hyperlipidemia Chronic obstructive pulmonary disease 'group D' per pulm. Pt admitted [facility] for COPD exacerbation 10/08-10/11/23; admitted [facility] for COPD exacerbation (also had COVID at the time): 09/22- 09/25/23; admitted for COPD exacerbation 05/17-05/21/23 Asthma required rescue inhaler "just the other day" Chronic respiratory failure On oxygen at night in the past - but no longer needs per patient . Per 10/18/23 PCP note, 'pt stable from a respiratory standpoint' Hx of migraines Sleep apnea 2L O2 HS (no other device) History of COVID-19 Admitted [facility] 09/22-09/25/23 COVID+ and COPD exacerbation; pt states no longer having COVID sx Pneumothorax Hx- complication from pain injection- resolved Histoplasmosis 2002- treated Surgical History H/O hernia repair History of esophagogastroduodenoscopy (EGD) Hx of colonoscopy History of open reduction and internal fixation (ORIF) procedure right shoulder History of total replacement of left shoulder joint History of sinus surgery History of placement of chest tube History of hand surgery right/left Left femoral shaft fracture Dutch placed>hardware intact H/O total hip arthroplasty left H/O elbow surgery R radial head ORIF prior to 2009; R elbow I&D 08/05/23: GA: MAC#4, ETT#7.5HiLo, Gr View 1 H/O exploratory thoracotomy "Left thoracotomy wedge biopsy of left upper lobe with excision of lesion or nodule & frozen section 2002" H/O hernia repair [facility] incarcerated supraumbilical hernia repair open no mesh 02/17/01 Family History Father Heart disease Hypertension Brother Heart disease Cancer Hypertension Stroke Mother Cancer Other Leukemia No family history of adverse response to anesthesia No family history of bleeding disorder Non-Hodgkin lymphoma Denies family history of Hearing loss Asthma Social History Smoking Status: Current every day smoker Tobacco Type: Cigarettes Age Started Using Tobacco: 11; packs per day: 1; Cigarettes Per Day: 10 cig daily>advised; Second Hand Exposure: No; Do You Dip or Chew Tobacco: No; Hx Alcohol Use: No Hx Substance Use: No Preferred Language: Mohawk Communication Ability: Effective Turbo Generator Oiler Required: No Beliefs That Will Affect Care: None marital status: Current Living Situation: Spouse current occupational status: unemployed Feels Safe at Home: Yes Safety Concerns: Feels Safe At This Time Assistive Devices: Glasses, Oxygen - at Night and Walker Results & Data Vital Signs (Past 12 Hours) Vital Signs Temp Pulse Resp BP Pulse Ox O2 Del Method O2 Flow Rate 10/31/23 11:59 71 18 86 L Room Air 10/31/23 08:21 36.8 C 92 Nasal Cannula 2 10/31/23 08:00 Nasal Cannula 2 10/31/23 07:17 36.4 C L 90 18 124/77 Nasal Cannula 2 10/31/23 07:03 89 20 90 Room Air Diagnostic Findings 10/27/23 12:01 Gram Stain - Final Elbow,Right Aerobic and Anaerobic Culture - Preliminary Yeast not Danae albicans/dub Coag negative Staphylococcus 10/27/23 12:00 Gram Stain - Final Elbow,Right Aerobic and Anaerobic Culture - Preliminary Yeast not Danae albicans/dub 10/27/23 11:22 Gram Stain - Final Elbow,Right Aerobic and Anaerobic Culture - Preliminary No growth to date. 10/31/23 10/31/23 10/31/23 12:15 07:22 05:21 Creatinine 1.04 Est Cr Clr Drug Dosing 72.2 Est GFR ( Amer) 84.5 Est GFR (Non-Af Amer) 72.9 POC Glucose 122 H 135 H Random Vancomycin 14.2 10/30/23 10/30/23 20:24 16:38 Creatinine Est Cr Clr Drug Dosing Est GFR ( Amer) Est GFR (Non-Af Amer) POC Glucose 104 H 119 H Random Vancomycin Medications Administered Home Medications Medication Instructions Recorded Confirmed Last Taken pregabalin 100 mg capsule (Lyrica) 100 mg PO BID 10/16/17 10/27/23 10/26/23 08:00 ondansetron 8 mg disintegrating 8 mg PO Q8H PRN Nausea 04/07/22 10/27/23 10/24/23 tablet clobetasol 0.05 % topical cream 1 applic topical BID PRN Rash 12/29/22 10/27/23 Unknown levalbuterol HCl 1.25 mg/3 mL 1.25 mg inhalation Q4H PRN Wheezing 12/29/22 10/27/23 10/20/23 solution for nebulization triamcinolone acetonide 0.1 % 1 applic topical BID PRN Rash 12/29/22 10/27/23 Unknown topical cream (Triderm) cyanocobalamin (vitamin B-12) 1,000 mcg PO QAM 03/08/23 10/27/23 10/26/23 08:00 1,000 mcg tablet (Vitamin B-12) aspirin 81 mg tablet,delayed 81 mg PO QAM #30 tabs 03/11/23 10/27/23 10/26/23 08:00 release pantoprazole 40 mg tablet,delayed 40 mg PO BID 30 days #60 tabs 04/06/23 10/27/23 10/26/23 08:00 release (Protonix) albuterol sulfate 90 mcg/actuation 2 puff inhalation Q4H PRN 04/26/23 10/27/23 10/25/23 aerosol inhaler Shortness Of Breath Or Wheezing #8.5 grams escitalopram oxalate 10 mg tablet 10 mg PO QAM 06/13/23 10/27/23 10/26/23 08:00 (Lexapro) CPAP Machine #1 ea 06/24/23 08/02/23 Unknown CPAP Supplies #1 ea 06/24/23 08/02/23 Unknown metoprolol tartrate 25 mg tablet 12.5 mg (1/2 x 25 mg) PO BID #30 08/09/23 10/27/23 10/26/23 21:00 tabs furosemide 40 mg tablet (Lasix) 40 mg PO QAM Fluid accumulation, 10/10/23 10/27/23 10/24/23 weight gain loperamide 2 mg tablet (Imodium 4 mg PO TID PRN Diarrhea 10/10/23 10/27/23 10/25/23 A-D) montelukast 10 mg tablet 10 mg PO HS 10/10/23 10/27/23 10/26/23 08:00 (Singulair) prochlorperazine maleate 5 mg 5 mg PO Q6H PRN NAUSEA/VOMITING 10/10/23 10/27/23 10/20/23 tablet (Compazine) fluticasone fur. 100 mcg-umeclid 1 inh inhalation DAILY #60 ea 10/11/23 10/27/23 10/27/23 07:00 62.5 mcg-vilant 25 mcg inhalat.powder (Trelegy Ellipta) atorvastatin 80 mg tablet (Lipitor) 80 mg PO QAM 10/19/23 10/27/23 10/26/23 08:00 cefdinir 300 mg capsule 300 mg PO BID 10/19/23 10/27/23 10/26/23 08:00 magnesium chloride 64 mg 64 mg PO QAM 10/19/23 10/27/23 10/26/23 08:00 (magnesium chloride) tablet,delayed release (Mag 64) Active Medications Generic Name Dose Route Start Last Admin Trade Name Freq PRN Reason Stop Dose Admin Albuterol 3 ml 10/28/23 13:00 10/31/23 11:58 Albut/Ipratrop 3mg/0.5mg Neb 3 Ml Vial NEB 11/27/23 12:59 3 ml Q6R YUN Administration Protocol Aspirin 81 mg 10/28/23 09:00 10/31/23 07:26 Aspirin 81 Mg Ectab PO 11/27/23 08:59 81 mg QAM YUN Administration Atorvastatin Calcium 80 mg 10/28/23 09:00 10/31/23 07:25 Atorvastatin 40 Mg Tab PO 11/27/23 08:59 80 mg QAM YUN Administration Cyanocobalamin 1,000 mcg 10/28/23 09:00 10/31/23 07:27 Cyanocobalamin (B-12) 500 Mcg Tablet PO 11/27/23 08:59 1,000 mcg QAM YUN Administration Diphenhydramine HCl 25 mg 10/27/23 14:14 10/28/23 17:38 Diphenhydramine Capsule 25 Mg Cap PO 11/26/23 14:13 25 mg Q8H PRN Administration Itching Docusate Sodium 100 mg 10/27/23 21:00 10/31/23 07:33 Docusate Sodium 100 Mg Cap PO 11/26/23 20:59 100 mg BID YUN Administration Escitalopram Oxalate 10 mg 10/28/23 09:00 10/31/23 07:27 Escitalopram Oxalate 10 Mg Tab PO 11/27/23 08:59 10 mg QAM YUN Administration Fluticasone Furoate 1 puffs 10/28/23 09:00 10/31/23 07:34 Fluticasone Furoate 100mcg 14 Puffs/Inhaler INH 11/27/23 08:59 1 puffs DAILY YUN Administration Protocol Furosemide 40 mg 10/28/23 09:00 10/31/23 07:27 Furosemide 40 Mg Tab PO 11/27/23 08:59 40 mg QAM YUN Administration Hydromorphone HCl 1 mg 10/29/23 10:42 10/31/23 00:25 Hydromorphone Inj 0.5 Mg/0.5 Ml Syr IV 11/10/23 14:13 1 mg Q4H PRN Administration Pain or Pre PT Cefepime HCl 2,000 mg/ Syringe 20 mls @ 5 mls/min 10/27/23 16:45 10/31/23 07:35 IV 12/08/23 16:44 5 mls/min Q8H YUN Administration Protocol Caspofungin 50 mg/ Sodium 260 mls @ 250 mls/hr 10/28/23 11:00 10/31/23 11:37 Chloride IV 11/07/23 10:59 Infused Q24H YUN Infusion Protocol Vancomycin HCl 1,250 mg/ 275 mls @ 200 mls/hr 10/29/23 18:00 10/31/23 07:05 Sodium Chloride IV 12/08/23 17:59 Infused Q12H YUN Infusion Insulin Aspart 0 units 10/28/23 16:45 10/31/23 12:23 Insulin Aspart Per Unit Charge SC 11/27/23 16:44 4 units ACHS YUN Administration Magnesium Chloride 64 mg 10/28/23 09:00 10/31/23 07:27 Magnesium Chloride W/Calcium 64mg Delayed Rel Tab PO 11/27/23 08:59 64 mg QAM YUN Administration Metoprolol Tartrate 12.5 mg 10/27/23 21:00 10/31/23 07:26 Metoprolol Tartrate 25 Mg Tab PO 11/26/23 20:59 12.5 mg BID YUN Administration Montelukast Sodium 10 mg 10/27/23 21:00 10/30/23 20:26 Montelukast Sodium 10 Mg Tablet PO 11/26/23 20:59 10 mg HS YUN Administration Multivitamins 1 tab 10/28/23 09:00 10/31/23 07:27 Multivitamin Tab PO 11/27/23 08:59 1 tab QAM YUN Administration Oxycodone HCl 5 - 10 mg 10/27/23 14:14 10/31/23 07:33 Oxycodone Hcl Ir 5 Mg Tab (Immediate Release) PO 11/10/23 14:13 5 mg Q4H PRN Administration Pain or Pre PT Pantoprazole Sodium 40 mg 10/27/23 21:00 10/31/23 07:25 Pantoprazole 40 Mg Tab PO 11/26/23 20:59 40 mg BID YUN Administration Pregabalin 100 mg 10/27/23 21:00 10/31/23 07:34 Pregabalin 100 Mg Cap PO 11/26/23 20:59 100 mg BID YUN Administration Sennosides 17.2 mg 10/27/23 21:00 10/30/23 20:29 Senna 8.6 Mg Tab PO 11/26/23 20:59 Not Given HS YUN Umeclidinium/Vilanterol 1 puffs 10/28/23 09:00 10/31/23 07:35 Umeclidinium/Vilanterol 62.5/25mcg 7 Puffs/Inhaler INH 11/27/23 08:59 1 puf fs DAILY YUN Administration Protocol (2) Type 2 diabetes mellitus Diabetes mellitus penitentiary insulin use: unspecified penitentiary insulin use status (8) Closed fracture of radial head Encounter type: initial encounter Fracture alignment: displaced Laterality: left Qualified Code(s): S52.122A - Displaced fracture of head of left radius, initial encounter for closed fracture (9) Closed compression fracture of lumbar vertebra Encounter type: initial encounter Lumbar vertebra fracture level: L5 Qualified Code(s): S32.050A - Wedge compression fracture of fifth lumbar vertebra, initial encounter for closed fracture
[2023-10-31] MEDS: KETOROLAC TROMETHAMINE 15 MG/ML VIAL IV ONE (16:40)
[2023-10-31] MEDS: DICLOFENAC SOD 1% GEL 100 GM TUBE EXT SCH (17:21)
[2023-10-31] MEDS ORDERED: OLANZapine 10 MG/2.1 ML SDV IM PRN (20:47)
[2023-10-31 22:15] LABS: BUN Creatinine Ratio 27.5 (10-20); Creatinine Clr Calc Pharmacy 68.9 ml/min; Est GFR (African American) 79.8 ml/min; Est GFR (Non-African American) 68.9 ml/min; Magnesium 1.8 mg/dl (1.7-2.4)
[2023-10-31] MEDS: LACTATED RINGER'S 1,000 ML IV ONE (22:33)
[2023-10-31] MEDS: MAGNESIUM SULFATE / D5W 1 GM/100 ML BAG IV ONE (22:33)
[2023-11-01 06:15] LABS: Hematocrit (blood only) 37.4 % (42.0-52.0); Hemoglobin 12.7 g/dl (14.0-18.0); Mean Corpuscular Volume 91.2 fL (80.0-100.0); Mean Platelet Volume 10.5 fL (9.4-12.4); Platelet Count 356 K/uL (130-400); RDW Coefficient of Variation 15.2 % (11.5-14.5); RDW Standard Deviation 51.1 fL (36.4-46.3); White Blood Count 8.43 K/ul (4.8-10.8)
[2023-11-01 06:20] LABS: BUN Creatinine Ratio 30.6 (10-20); Calcium 8.8 mg/dl (8.6-10.3); Creatinine Clr Calc Pharmacy 88.3 ml/min; Est GFR (Non-African American) 88.9 ml/min; Potassium 4.3 mmol/L (3.5-5.1)
--- NOTE | 2023-11-01 08:23 | XRay Report ---
SINGLE VIEW CHEST CLINICAL HISTORY: Hypoxia. FINDINGS: An AP, portable, upright chest radiograph is compared to study dated 10/09/2023 and correlate d with chest CT dated 05/18/2023. The heart is enlarged noting atherosclerotic calcification of the th oracic aorta. There is pulmonary vascular congestion. Emphysema and chronic interstitial thickening i s similar to previous. There is a small left pleural effusion. Scarring/atelectasis is seen at the sandra ng bases. No pneumothorax is seen. The skeletal structures are osteopenic. A left shoulder arthroplas ty is in place. Chronic deformity and postsurgical changes partially visualized in the right proximal humerus. IMPRESSION: 1. Cardiomegaly and emphysema with pulmonary vascular congestion. 2. Small left pleural effusion. ACT 112: Negative or not required by law. Electronically signed by: Wayne Baez M.D. 11/01/2023 8:22 AM
--- NOTE | 2023-11-01 08:34 | Orthopedic Progress Note ---
Date of Service November 01, 2023 Assessment & Plan (1) Septic arthritis of elbow, right: PLAN PER ID ON 10/31/2023: "- Recommend continuing Caspofungin IV and Vancomycin IV. Given chronicity of patient's disease and that fact that is did reoccur despite antibiotic management, would recommend 6 weeks of total IV treatment with previous mentioned antimicrobials. - Recommend CBC, CMP, and Vancomycin trough weekly. - we will sign off, will not be actively following or monitoring the patient, please schedule an appointment with ID as this will be necessary for monitoring patient." Plan from an orthopedic standpoint: -Appreciate ID recommendations above. Would like him to go home on a PICC line for IV antibiotics as noted above. We will follow-up with him from an orthopedic standpoint for wound check, staple removal, etc. He should follow-up with infectious disease outpatient for further treatment and care. This is also for management of his antifungal and antibiotic. We did initiate this from our end. Our nurse is getting in touch with the infectious disease providers around the area. -Can continue daily dressing changes. -Can be discharged once PICC line is established and the hospitalist signs off. Subjective Operation Date: 10/27/23 10:05 Actual Procedures p Right Elbow Arthrotomy, bursectomy, irrigation and Debridement with Radial Head Screw Removal(Right) - Bradley Willis MD POD 5. I saw the patient this morning. He is resting in his hospital bed. He is sleeping for most of the visit. His is there at the bedside. She states that last evening, he did have some episodes of delirium as to why she was called in. They did do a venous Doppler in the left lower extremity yesterday and was negative for DVT. There was also a chest x-ray done as well. Infectious disease recommendations have been placed. Discharge will be based off of their recommendations. Review of Systems All systems reviewed & are unremarkable except as noted in HPI & below. Physical Exam General: Patient is sleeping at today's visit. I did have a conversation with the patient's today. Right elbow inspection unremarkable. No saturation noted. No erythema or significant edema. NV intact. Results & Data Results & Data Laboratory Results Coag negative staph Melany tropicalis Abnormal Labs 10/27/23 10/27/23 10/27/23 08:40 15:18 16:55 WBC RBC Hgb Hct RDW Std Deviation RDW Coeff of Jaz Neut # (Auto) Charlton # (Auto) Carbon Dioxide BUN BUN/Creatinine Ratio Glucose POC Glucose 102 H 116 H 145 H Calcium Magnesium 10/27/23 10/28/23 10/28/23 19:18 06:41 07:55 WBC 11.67 H RBC 3.69 L Hgb 11.4 L Hct 34.6 L RDW Std Deviation 52.7 H RDW Coeff of Jaz 15.3 H Neut # (Auto) 9.54 H Charlton # (Auto) 0.83 H Carbon Dioxide BUN BUN/Creatinine Ratio 20.8 H Glucose 143 H POC Glucose 159 H 131 H Calcium 8.2 L Magnesium 1.4 L 10/28/23 10/28/23 10/28/23 11:44 16:39 20:30 WBC RBC Hgb Hct RDW Std Deviation RDW Coeff of Jaz Neut # (Auto) Charlton # (Auto) Carbon Dioxide BUN BUN/Creatinine Ratio Glucose POC Glucose 209 H 148 H 117 H Calcium Magnesium 10/29/23 10/29/23 10/29/23 05:18 11:53 16:41 WBC RBC 3.78 L Hgb 11.6 L Hct 35.6 L RDW Std Deviation 54.4 H RDW Coeff of Jaz 15.7 H Neut # (Auto) Charlton # (Auto) Carbon Dioxide BUN BUN/Creatinine Ratio Glucose POC Glucose 101 H 110 H Calcium 8.4 L Magnesium 10/30/23 10/30/23 10/30/23 06:04 11:40 16:38 WBC RBC 4.24 L Hgb 13.3 L Hct 39.5 L RDW Std Deviation 53.8 H RDW Coeff of Jaz 15.7 H Neut # (Auto) Charlton # (Auto) Carbon Dioxide 35 H BUN BUN/Creatinine Ratio 22.8 H Glucose POC Glucose 113 H 119 H Calcium Magnesium 10/30/23 10/31/23 10/31/23 20:24 07:22 12:15 WBC RBC Hgb Hct RDW Std Deviation RDW Coeff of Jaz Neut # (Auto) Charlton # (Auto) Carbon Dioxide BUN BUN/Creatinine Ratio Glucose POC Glucose 104 H 135 H 122 H Calcium Magnesium 10/31/23 10/31/23 10/31/23 16:35 21:03 21:44 WBC RBC Hgb Hct RDW Std Deviation RDW Coeff of Jaz Neut # (Auto) Charlton # (Auto) Carbon Dioxide BUN 30 H BUN/Creatinine Ratio 27.5 H Glucose POC Glucose 159 H 107 H Calcium Magnesium 11/01/23 11/01/23 05:29 07:40 WBC RBC 4.10 L Hgb 12.7 L Hct 37.4 L RDW Std Deviation 51.1 H RDW Coeff of Jaz 15.2 H Neut # (Auto) Charlton # (Auto) Carbon Dioxide BUN 26 H BUN/Creatinine Ratio 30.6 H Glucose 104 H POC Glucose 114 H Calcium Magnesium Diagnostic Findings . PG Care Time/CCT Total # of Minutes Spent Total Time Spent with Patient: Total time spent is greater than 50% in coordination of care (as documented) at patient's floor/unit and/or counseling patient: Coding Level of Care Code 62973 Post Operative Follow-Up Diagnoses Septic arthritis of elbow, right M00.9
--- NOTE | 2023-11-01 09:01 | Pharmacy Report ---
Pharmacy Glycemic Sign Off Nt - Date of Service November 01, 2023 - Assessment & Plan ASSESSMENT: * Pharmacy was consulted by Sylwia Durham on 10/28/23 for glycemic control and to write orders per [facility] inpatient glycemic control protocol. * Major changes made by pharmacy to antidiabetic regimen include: * titration of SC bolus insulin * Patient has been receiving/requiring 11-14 units of insulin per day for adequate glycemic control * BSGs ranging 89-154 mg/dl * Regimen has only required minor adjustments over the past 48hrs to achieve this level of control * Do not anticipate further changes in patient status that would quickly deteriorate glycemic control (i.e. patient to be NPO for upcoming procedure, steroids tapering, starting tube feedings, etc). PLAN FOR INPATIENT GLYCEMIC CONTROL: No changes needed to current regimen. * Continue to hold basal insulin * Continue NovoLog per scale ACHS/Q6hrs while NPO * Goal range = 120-160 mg/dl * CF = 35 mg/dl/unit * CR = 1 unit for ever 12 g CHO consumed * Pharmacy is signing off of glycemic consult and will no longer be making adjustments to inpatient regimen. Please feel free to re-consult if needed. Thank you.
--- NOTE | 2023-11-01 10:02 | Hospitalist Progress Note ---
<Statement entered by Manny Rothman, - 11/01/23 14:54> I have seen and examined the patient and have discussed the case with the provider above. I have reviewed the advanced practitioner's documentation, and I agree with, and take responsibility for that plan of care. 15 minutes spent on evaluation patient and coordination of care. Patient with complaints of redness, warmth and tenderness on the dorsal surface of his left foot., is at bedside. And confirms. Patient reports never having gout. Patient has been on broad-spectrum antibiotics for his olecranon bursitis. Patient does not remember bumping or hitting his foot either. Dorsal aspect of left foot is warm and swollen and tender to palpation. Appears to be some venous streaking up the anterior tibia. No evidence of fluid collection. Patient has been on broad-spectrum IV antibiotics, would be surprising patient had development of a cellulitis. Asked nurse to jo the area of redness with a pen. Will continue to monitor and evaluate. Coordinating home IV antibiotics antifungals as outlined below Plan of care as outlined below Date of Service November 01, 2023 Assessment & Plan (1) Olecranon bursitis, right elbow: (2) Effusion of elbow joint, right: (3) COPD with emphysema: (4) Hypertension: (5) Neuropathy: (6) GERD (gastroesophageal reflux disease): (7) Anxiety: Plan Mr. Franks is a 67yo M with PMH of COPD, obstructive sleep apnea on 2 L oxygen nightly, hyperlipidemia, atherosclerosis of aorta, GERD, obesity, chronic pain syndrome, tobacco use disorder, history of venous thrombosis and embolism, depression who underwent R Elbow Arthrotomy, bursectomy, irrigation and Debridement with Radial Head Screw Removal by Dr. Willis on 10/26. #R elbow olecranon bursitis s/p I&D Recurrent infection, last admitted in July 2023 for septic bursitis with washout Cultures negative at that time, discharged on 4 weeks of IV Rocephin per direction of ID POD #5 s/p R Elbow Arthrotomy, bursectomy, irrigation and Debridement with R adial Head Screw Removal by Dr. Willis on 10/26 First intraop culture growing danae tropicalis and coag negative staph Continue empiric cefepime, Vanco, Capsofungin Discussed with Adam LANIER, awaiting final consults Spoke to Dr Tomas on-call--will likely need IV abx Concern remains about yeast that has been present on the followin/19: elbow joint aspiration, joint capsule 10/18: elbow joint Patient has notably completed IV CTX and s/p ID x 2, untreated organism remains to be yeast Formal ID recs as follows " Recommend continuing Caspofungin IV and Vancomycin IV. Given chronicity of patient's disease and that fact that is did reoccur despite antibiotic management, would recommend 6 weeks of total IV treatment with previous mentioned antimicrobials. - Recommend CBC, CMP, and Vancomycin trough weekly. - we will sign off, will not be actively following or monitoring the patient, please schedule an appointment with ID as this will be necessary for monitoring patient." Scripts written and given to CM, Consent obtained for PICC Line placement Pt is medically stable for discharge once CM can arrange outpatient home infusion therapies and if second repeat troponin is negative #Chest pain pt reports substernal CP this morning w/o other overt complaint ecg with NSR, no st or t wave change, compared to 10/08 ecg and w/o change initial trop negative, will repeat in 2 hrs echo 10/02 from [facility] revealed normal EF 55-59% grade I diastolic dysfunction, mild aortic valve sclerosis #COPD #Chronic hypoxic resp failure #TAYLOR on supplemental O2 On baseline 2L O2 Schedule Duonebs given wheezing on exam Continue home Trelegy, Singulair, PRN albuterol #Hypomagnesia Replaced, continue home slow mag daily, monitor with daily labs #Hypertension Normotensive Continue metoprolol and Lasix #GERD Continue PPI #Hyperlipidemia Continue statin #Depression Continue SSRI DVT ppx: per primary, would recommend initiating chemical prophylaxis if able from a orthopedics standpoint Dispo: Per primary, pt medically stable but will likely require IV medications at discharge, awaiting formal ID recs A total of 52 minutes was spent coordinating, documenting, and providing care for this patient excluding time spent in the performance of separately billed services. This included personally viewing all current laboratories and imaging studies, medication reconciliation, outpatient chart review, and discussion with specialists. Thank you for this consultation. We will follow the patient with you during their hospital stay. You can reach a member of the [facility] Hospitalist Team 30/08 via Backpack. Admission and Anticipated Discharge Date Admission Date: October 28, 2023 Subjective at beside who helps elicit history. She came in last evening as he was getting a bit more confused and delirious. This has since resolved. He continues to c/o pain to L foot and RUE. He does have some substernal nonradiating chest pain this morning. Nothing makes it better or worse. He has had before and went away on its own. Review of Systems Review of Systems: All systems reviewed & are unremarkable except as noted in HPI & below Physical Exam Physical Exam: Gen: WD/WN, chronically ill M, sitting at edge of bed, NAD, A&O x3 HEENT: Normocephalic, atraumatic, conjunctivae moist, sclerae anicteric, mucous membranes moist. Lung: Clear to Auscultation bilaterally, no wheezes/rales/rhonchi Heart: Regular rate, regular rhythm, no murmurs, rubs, or gallops Abdomen: Soft, NT, ND +BS x 4 Extremities: No edema, RUE dressing CDI, slight erythema to dorsal aspect of L foot Skin: Warm, no rash, negative turgor. Results & Data Results & Data Vital Signs (Past 12 Hours) Vital Signs Temp Pulse Resp BP Pulse Ox O2 Del Method O2 Flow Rate 11/01/23 08:14 74 96/56 L 11/01/23 07:53 Nasal Cannula 2 11/01/23 07:50 70 20 93 Nasal Cannula 3 11/01/23 07:37 36.7 C 73 16 119/76 94 Room Air 2 Laboratory Results Short CBC 11/01/23 Range/Units 05:29 WBC 8.43 (4.8-10.8) K/ul Hgb 12.7 L (14.0-18.0) g/dl Hct 37.4 L (42.0-52.0) % Plt Count 356 (130-400) K/uL BMP 10/31/23 11/01/23 21:03 05:29 Sodium 136 137 Potassium 4.0 4.3 Chloride 98 100 Carbon Dioxide 30 31 BUN 30 H 26 H Creatinine 1.09 0.85 Glucose 96 104 H Calcium 9.0 8.8 Medications Administered Current Inpatient Medications Albuterol (Albuterol Hfa 8 Gm Inhaler) 2 puffs INH Q4H PRN PRN Reason: Shortness Of Breath Or Wheezing Stop: 11/26/23 14:25 Albuterol (Albut/Ipratrop 3mg/0.5mg Neb 3 Ml Vial) 3 ml NEB Q6R [facility]; Protocol Stop: 11/27/23 12:59 Last Admin: 11/01/23 07:22 Dose: 3 ml Aspirin (Aspirin 81 Mg Ectab) 81 mg PO [facility] Stop: 11/27/23 08:59 Last Admin: 11/01/23 08:17 Dose: 81 mg Atorvastatin Calcium (Atorvastatin 40 Mg Tab) 80 mg PO [facility] Stop: 11/27/23 08:59 Last Admin: 11/01/23 08:16 Dose: 80 mg Bisacodyl (Bisacodyl 10 Mg Supp) 10 mg RI DAILY PRN PRN Reason: Constipation Stop: 11/26/23 14:13 Clobetasol Propionate (Clobetasol Propionate 0.05% Cream 15 Gm Tube) 1 appln TOP BID PRN PRN Reason: Rash Stop: 11/26/23 14:25 Cyanocobalamin (Cyanocobalamin (B-12) 500 Mcg Tablet) 1,000 mcg PO [facility] Stop: 11/27/23 08:59 Last Admin: 11/01/23 08:17 Dose: 1,000 mcg Diclofenac Sodium (Diclofenac Sod 1% Gel 100 Gm Tube) 2 gm EXT QID [facility]; Protocol Stop: 11/30/23 16:59 Last Admin: 11/01/23 08:15 Dose: 2 gm Diphenhydramine HCl (Diphenhydramine Capsule 25 Mg Cap) 25 mg PO Q8H PRN PRN Reason: Itching Stop: 11/26/23 14:13 Last Admin: 10/28/23 17:38 Dose: 25 mg Docusate Sodium (Docusate Sodium 100 Mg Cap) 100 mg PO BID [facility] Stop: 11/26/23 20:59 Last Admin: 11/01/23 08:22 Dose: 100 mg Escitalopram Oxalate (Escitalopram Oxalate 10 Mg Tab) 10 mg PO [facility] Stop: 11/27/23 08:59 Last Admin: 11/01/23 08:15 Dose: 10 mg Fluticasone Furoate (Fluticasone Furoate 100mcg 14 Puffs/Inhaler) 1 puffs INH DAILY [facility]; Protocol Stop: 11/27/23 08:59 Last Admin: 11/01/23 08:18 Dose: 1 puffs Furosemide (Furosemide 40 Mg Tab) 40 mg PO [facility] Stop: 11/27/23 08:59 Last Admin: 10/31/23 07:27 Dose: 40 mg Hydromorphone HCl (Hydromorphone Inj 0.5 Mg/0.5 Ml Syr) 1 mg IV Q4H PRN PRN Reason: Pain or Pre PT Stop: 11/10/23 14:13 Last Admin: 10/31/23 00:25 Dose: 1 mg Caspofungin 50 mg/ Sodium (Chloride) 260 mls @ 250 mls/hr IV Q24H [facility]; Protocol Stop: 11/07/23 10:59 Last Infusion: 10/31/23 11:37 Dose: Infused Vancomycin HCl 1,250 mg/ (Sodium Chloride) 275 mls @ 200 mls/hr IV Q12H [facility] Stop: 12/08/23 17:59 Last Infusion: 11/01/23 08:41 Dose: Infused Lactated Ringer's (Lr) 1,000 mls @ 75 mls/hr IV .[id number] ONE Stop: 11/01/23 11:35 Last Admin: 10/31/23 22:33 Dose: 75 mls/hr Insulin Aspart (Insulin Aspart Per Unit Charge) 0 units SC ACHS [facility] Stop: 11/27/23 16:44 Last Admin: 11/01/23 08:49 Dose: 1 units Levalbuterol HCl (Levalbuterol 1.25 Mg/3 Ml Neb) 1.25 mg INH Q4R PRN PRN Reason: Wheezing Stop: 11/26/23 14:25 Loperamide HCl (Loperamide Hcl 2 Mg Cap) 4 mg PO TID PRN PRN Reason: Diarrhea Stop: 11/26/23 16:13 Magnesium Chloride (Magnesium Chloride W/Calcium 64mg Delayed Rel Tab) 64 mg PO QAM [facility] Stop: 11/27/23 08:59 Last Admin: 11/01/23 08:16 Dose: 64 mg Magnesium Hydroxide (Magnesium Hydroxide Susp 30 Ml Udc) 30 ml PO Q6H PRN PRN Reason: Constipation Stop: 11/26/23 14:13 Metoprolol Tartrate (Metoprolol Tartrate 25 Mg Tab) 12.5 mg PO BID [facility] Stop: 11/26/23 20:59 Last Admin: 11/01/23 08:42 Dose: Not Given Miscellaneous Information (Vancomycin Consult Active) 1 each N/A UD PRN PRN Reason: Consult Stop: 11/26/23 16:30 Montelukast Sodium (Montelukast Sodium 10 Mg Tablet) 10 mg PO HS YUN Stop: 11/26/23 20:59 Last Admin: 10/31/23 20:45 Dose: 10 mg Multivitamins (Multivitamin Tab) 1 tab PO QAM [facility] Stop: 11/27/23 08:59 Last Admin: 11/01/23 08:18 Dose: 1 tab Naloxone HCl (Naloxone Hcl 0.4 Mg/1 Ml Vial/Carp) 0.1 mg IV Q5M PRN PRN Reason: Oversedation/Resp Depression Stop: 11/26/23 14:13 Olanzapine (Olanzapine 10 Mg/2.1 Ml Sdv) 2.5 mg IM Q4H PRN PRN Reason: Agitation Stop: 11/30/23 20:46 Ondansetron HCl (Ondansetron Inj 2 Mg/Ml 2 Ml Vial) 4 mg IV Q6H PRN PRN Reason: Nausea And Vomiting Stop: 11/26/23 14:13 Oxycodone HCl (Oxycodone Hcl Ir 5 Mg Tab (Immediate Release)) 5 - 10 mg PO Q4H PRN PRN Reason: Pain or Pre PT Stop: 11/10/23 14:13 Last Admin: 10/31/23 15:52 Dose: 10 mg Pantoprazole Sodium (Pantoprazole 40 Mg Tab) 40 mg PO BID YUN Stop: 11/26/23 20:59 Last Admin: 11/01/23 08:15 Dose: 40 mg Pregabalin (Pregabalin 100 Mg Cap) 100 mg PO BID [facility] Stop: 11/26/23 20:59 Last Admin: 11/01/23 08:22 Dose: 100 mg Prochlorperazine (Prochlorperazine Maleate 5 Mg Tab) 5 mg PO Q6H PRN PRN Reason: NAUSEA/VOMITING Stop: 11/26/23 14:25 Sennosides (Senna 8.6 Mg Tab) 17.2 mg PO HS [facility] Stop: 11/26/23 20:59 Last Admin: 10/31/23 20:47 Dose: Not Given Triamcinolone Acetonide (Triamcinolone Acet 0.1% Cr 15 Gm Tube) 1 appln TOP BID PRN PRN Reason: Rash Stop: 11/26/23 14:25 Umeclidinium/Vilanterol (Umeclidinium/Vilanterol 62.5/25mcg 7 Puffs/Inhaler) 1 puffs INH DAILY [facility]; Protocol Stop: 11/27/23 08:59 Last Admin: 11/01/23 08:18 Dose: 1 puffs ECG Additional Comments: I have independently reviewed and interpreted patient's admitting EKG which revealed: 71, NSR qtc 456ms, compared to 10/09/23 w/o change
--- NOTE | 2023-11-01 11:02 | XRay Report ---
SINGLE VIEW CHEST CLINICAL HISTORY: PICC placement FINDINGS: An AP, portable, semierect chest radiograph is compared to study dated 10/31/2023 and correl ated with chest CT dated 05/18/2023. The examination is degraded by portable technique and apical lord otic positioning. A left-sided PICC line has been placed. The tip projects over the SVC. The heart is enlarged noting atherosclerotic calcification of the thoracic aorta. Pulmonary vascular congestion a ppears improved. Emphysema and chronic interstitial thickening is similar to previous. There are smal l pleural effusions. Scarring/atelectasis is seen at the lung bases. No pneumothorax is seen. The ske letal structures are osteopenic. A left shoulder arthroplasty is in place. Chronic deformity and post surgical changes partially visualized in the right proximal humerus. IMPRESSION: 1. Cardiomegaly and emphysema. Pulmonary vascular congestion appears improved from yesterday. 2. Small pleural effusions. 3. a left-sided PICC line has been placed as above. ACT 112: Negative or not required by law. Electronically signed by: Wayne Baez M.D. 11/01/2023 11:01 AM
[2023-11-01 20:07] VITALS: TEMP 97.9
--- NOTE | 2023-11-01 21:12 | Electrocardiogram Report ---
Test Reason : Blood Pressure : */* mmHG Vent. Rate : 71 BPM Atrial Rate : 71 BPM P-R Int : 168 ms QRS Dur : 86 ms QT Int : 420 ms P-R-T Axes : 62 22 -6 degrees QTcB Int : 456 ms Normal sinus rhythm Inferior infarct (cited on or before 09-Oct-2023) Abnormal ECG When compared with ECG of 09-Oct-2023 22:35, No significant change was found Confirmed by Daivd Mehta ([id number]) on 11/01/2023 9:12:38 PM Referred By: Bradley Willis Confirmed By: David Mehta
--- NOTE | 2023-11-02 07:28 | Orthopedic Progress Note ---
Date of Service November 02, 2023 Assessment & Plan (1) Septic arthritis of elbow, right: PLAN PER ID ON 10/31/2023: "- Recommend continuing Caspofungin IV and Vancomycin IV. Given chronicity of patient's disease and that fact that is did reoccur despite antibiotic management, would recommend 6 weeks of total IV treatment with previous mentioned antimicrobials. - Recommend CBC, CMP, and Vancomycin trough weekly. - we will sign off, will not be actively following or monitoring the patient, please schedule an appointment with ID as this will be necessary for monitoring patient." Plan from an orthopedic standpoint: -Appreciate ID recommendations. PICC line placed yesterday in his LUE. He may be D/C once everything is set up from a case management standpoint. He should wear his sling at home unless resting and for hygiene. Should continue daily dressing changes at home. -Regarding the erythema and tenderness on the dorsum of his left foot, I did notice when I came into do the progress check today that he sleeps with his feet crossed. It would be unusual for cellulitis to begin due to him being on IV antibiotics. Also does not follow the usual pattern of gout. This may be a pressure area due to him sleeping with his ankles crossed. I did let the patient know to keep an eye on it after discharge. -We will see him back as an outpatient in the orthopedics clinic in about 7 days. -We have also been in contact with outpatient infectious disease. Dr. Arcos would like to see the patient in their [place] office on 11/15/23 @ 10am. They attempted to get a hold of the patient but were unsuccessful and had to leave voicemail. Subjective Actual Procedures p Right Elbow Arthrotomy, bursectomy, irrigation and Debridement with Radial Head Screw Removal(Right) - Bradley Willis MD POD 6. I saw the patient this morning. He is resting in his hospital bed. He is awake for today's visit. States that he is doing well. His PICC line was placed yesterday in his left upper extremity. Does have a dry dressing on his right elbow. As per hospitalist note yesterday, there were some concerns of erythema and tenderness on the dorsum of his left foot. It was marked by nursing staff last evening as well. Patient is unsure when this started. He is ready to go home. Review of Systems All systems reviewed & are unremarkable except as noted in HPI & below. Physical Exam General: Alert and oriented. In no acute distress. Right elbow: Wound check satisfactory. No erythema, drainage or dehiscence of the wound. The dressing is dry. Get are intact. He is resting comfortably without his sling. He does have good gentle range of motion. Regarding the left foot: I did remove his sock for today's visit. The dorsum of the foot is marked with a marking pen from nursing staff. There is some erythema on the dorsum of the foot and it is tender. No open wounds. He has full range of motion of the left ankle and foot including all of his extensor tendons. Sensation intact. Distal pulse palpated. Cap refill less than 3 seconds. Area of erythema did not travel out of the marked area. Results & Data Results & Data Laboratory Results Coag negative staph Melany tropicalis Diagnostic Findings . PG Care Time/CCT Total # of Minutes Spent Total Time Spent with Patient: Total time spent is greater than 50% in coordination of care (as documented) at patient's floor/unit and/or counseling patient: Coding Level of Care Code 69832 Post Operative Follow-Up Diagnoses Septic arthritis of elbow, right M00.9
[2023-11-02 07:39] VITALS: BP 114/75
--- NOTE | 2023-11-02 11:02 | Hospitalist Progress Note ---
Date of Service November 02, 2023 Assessment & Plan (1) Septic arthritis of elbow, right: Plan Per previous progress note(s) with daily updates/changes: Florentin Franks is a 67y/o M with PMHx of hyperlipidemia, COPD/pulmonary emphysema, chronic hypoxic respiratory failure, chronic diastolic heart failure [EF 60 to 65% - TTE 2023], PVD, TAYLOR on 2L O2 HS, aortic atherosclerosis, GERD with esophagitis, chronic pain syndrome, senile osteoporosis, descending aortic throm bus [not on anticoagulation therapy], hx of PE, tobacco use disorder, adjustment disorder with depressed mood/CARLOS and other problems listed who underwent right elbow arthrotomy, bursectomy, irrigation and debridement with radial head screw removal performed by Dr. Bradley Willis on 10/27/23. Right Elbow Olecranon Bursitis & Effusion of Right Elbow S/P I&D: Recurrent infection, last admitted in July 2023 for septic bursitis with washout. Cultures negative at that time, discharged on 4 weeks of IV Rocephin per direction of ID. Patient has notably completed IV CTX and s/p ID x 2, untreated organism remains to be yeast. Now POD #6 s/p R elbow arthrotomy, bursectomy, irrigation and debridement with radial head screw removal performed by Dr. Bradley Willis on 10/27/23. First intra-operative culture growing danae tropicalis and coag negative staph. Was on empiric cefepime, vancomycin & Caspofungin. Discussed case with Adam LANIER, formal recommendation(s) as follows: "Recommend continuing Caspofungin IV and Vancomycin IV. Given chronicity of patient's disease and that fact that is did reoccur despite antibiotic management, would recommend 6 weeks of total IV treatment with previous mentioned antimicrobials. CBC, CMP, and Vancomycin trough weekly while on this regimen." Scripts written and given to CM, patient had a PICC line placed in his anterior LUE yesterday. Patient is medically stable for discharge. [facility] will be assisting with home infusion therapy. He is scheduled to see Dr. Arcos [[facility]] on 11/15/23 @ 10AM per ortho documentation - patient made aware. Chest Pain, ACS Ruled-Out: Patient was reporting substernal chest pain yesterday morning.EKG with NSR, no ST- or T-wave changes and no change when compared to EKG done 10/09/23. Troponin negative x 2. Most recent echo 10/03/23 revealed normal EF of 55-59%, grade I diastolic dysfunction and mild aortic valve sclerosis. Left Foot Pain & Erythema: Patient with complaints of redness, warmth and tenderness on the dorsal surface of his left foot yesterday. Patient denies ever having gout. Patient has been on broad-spectrum antibiotics for his olecranon bursitis/R elbow effusion. Patient does not remember injuring his foot. Dorsal aspect of left foot is warm and slightly swollen. He is also tender to palpation in this region. No evidence of fluid collection. Patient has been on broad-spectrum IV antibiotics, would be unlikely that the patient has developed cellulitis. Area was outlined with surgical marker yesterday and the redness has not spread beyond the regions of the markings. Sylwia Durham PA-C from the orthopedic service saw the patient this morning and evaluated his L foot. Agrees that it would be atypical for cellulitis at this point given him being on IV ABX. The erythema does not follow the usual pattern of gout either. Made patient aware to monitor this area for any changes. Instructed him to call his PCP or the [place] orthopedic office if any changes arise so that the area can be further evaluated. TAYLOR on Supplemental O2 HS COPD & Chronic Hypoxic Respiratory Failure: Can continue home Trelegy, Singulair and PRN albuterol at time of discharge. Repeat CXR yesterday showed improvement in his pulmonary vascular congestion. On baseline 2L O2 HS at time of discharge. Wheezing improved with scheduled Duonebs. Hypomagnesia: Replaced, continue home slow mag daily at time of discharge. Hypertension: Continue metoprolol and Lasix at time of discharge. Normotensive, BP remained under control throughout his admission. Other Chronic Medical Conditions: GERD, HLD and depression --> Can continue home meds for these specific conditions at time of discharge. PCP: Ajit Moreno MD --> He is scheduled to see him on 11/07/23 @ 2PM. Disposition: Per primary orthopedic service --> Patient is being discharged home today in stable condition. Will be receiving home IV ABX infusion therapy coordinated by [facility] and [facility]. Patient seen in collaboration with Dr. Haddad. Please see addendum. I spent a total of 55 minutes coordinating, documenting, and providing care for this patient excluding time spent in the performance of separately billed services. This included personally reviewing all current laboratories and imaging studies, medical reconciliation, outpatient chart review and discussion with specialists. This chart was completed in part utilizing Speech Voice Recognition Software. Grammatical errors, random word insertions, pronoun errors, and incomplete sentences are an occasional consequence of this system due to software limitations, ambient noise, and hardware issues. Any formal questions or concerns about the content, text, or information contained within the body of this dictation should be directly addressed to the provider for clarification. Admission and Anticipated Discharge Date Admission Date: October 28, 2023 Supervising Physician Co-Signing Physician Notes I have seen and discussed the case with the collaborating advanced practitioner. I agree with the above H&P. I have reviewed and confirmed the patients medical history, the findings on physical examination, and the patients diagnosis and treatment plan with Sherwin ARREOLA and agree with the information documented. Evaluated at bedside and patient reports left foot pain, but otherwise feels ready to discharge EXAM: right elbow in JEN bandage, left foot with subtle soft tissue swelling Mr. Franks is a 67yo M with PMH of COPD, obstructive sleep apnea on 2 L oxygen nightly, hyperlipidemia, atherosclerosis of aorta, GERD, obesity, chronic pain syndrome, tobacco use disorder, history of venous thrombosis and embolism, depression who underwent R Elbow Arthrotomy, bursectomy, irrigation and Debridement with Radial Head Screw Removal by Dr. Willis on 10/26. #R elbow olecranon bursitis s/p I&D Recurrent infection, last admitted in July 2023 for septic bursitis with washout Recommend continuing Caspofungin IV and Vancomycin IV. Given chronicity of patient's disease and that fact that is did reoccur despite antibiotic management, would recommend 6 weeks of total IV treatment with previous mentioned antimicrobials. #LLE soft tissue swelling DVT negative, Xray ordered today and reviewed--no apparent fracture To be followed by ortho as op rest of plan as above I spent a total of 23 minutes coordinating, documenting, and providing care for this patient excluding time spent in the performance of separately billed services. All of the aforementioned completed outside of collaborating with the assigned advanced practitioner for a full treatment plan. I have reviewed the advanced practitioner's documentation, and I agree with, and take responsibility for the plan of care Subjective Patient continues to have pain and erythema on the dorsal aspect of his left foot. Reports the pain is unchanged from yesterday. He denies any fevers, body aches or chills overnight. Mentions he saw one of the orthopedic providers this morning - was told to keep an eye on the area. Review of Systems Review of Systems: At least ten systems reviewed and negative, except as noted in the subjective section. Physical Exam Physical Exam: General: WD/WN, vitals as above, NAD, sitting up on the side of the bed eating breakfast, pleasant. A+Ox3, euthymic affect. HEENT: Normocephalic, atraumatic. PERRL, conjunctivae normal, anicteric sclerae, oropharynx normal. Respiratory: Normal respiratory effort, lungs clear to auscultation, no wheeze, rales, rhonchi. No accessory muscle use. Cardiovascular: Regular rate, rhythm, no murmur, normal peripheral pulses, no BLE edema. Vessels: No JVD. Abdomen/GI: Normal bowel sounds, soft, nontender, no hepatosplenomegaly. Extremities/Musculoskeletal: No cyanosis or clubbing, able to active move all extremities, no ambulatory difficulties. Neurologic: EOMI, no focal deficits, CN's II-XI not formally tested but appear grossly intact bilaterally. Skin: Erythema noted on dorsal aspect of L foot outlined by surgical marker, slightly tender to palpation and warm to the touch. Constitutional: WD/WN, vitals as above Respiratory: normal respiratory effort, lungs clear to auscultation Cardiovascular: RRR, no murmur, no edema Gastrointestinal (Abdomen): normal bowel sounds, soft, nontender, no hepatosplenomegaly Results & Data Results & Data Vital Signs (Past 12 Hours) Vital Signs Temp Pulse Resp BP Pulse Ox O2 Del Method O2 Flow Rate 11/02/23 07:49 74 16 95 Nasal Cannula 3 11/02/23 07:37 36.6 C 66 18 114/75 96 Nasal Cannula 2 11/02/23 07:20 Nasal Cannula 2 (1) Septic arthritis of elbow, right Septic arthritis organism: due to other bacteria Qualified Code(s): M00.821 - Arthritis due to other bacteria, right elbow
--- NOTE | 2023-11-02 12:21 | XRay Report ---
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 Arterial calcifications. There are moderate sized en thesophytes of the calcaneus. Mild diffuse soft tissue swelling. No acute fracture, dislocation or os seous erosion. IMPRESSION: No acute osseous abnormality. ACT 112: Negative or not required by law. The above report was generated using voice recognition software. It may contain grammatical, syntax o r spelling errors. Electronically signed by: Colby Mata M.D. 11/02/2023 12:20 PM
[2023-11-02 13:28] VITALS: PULSE 67; RESP 18; O2SAT 97
[2023-11-03] MEDS ORDERED: VANCOMYCIN LEVEL ONE (05:30)
== END 2023-11-02 17:54 | disposition home health service (06) | DRG 496 ==
LOC: 3E 08:14 → ASU 08:14
DX: F17.209 Nicotine dependence, unspecified, with unspecified nicotine-induced disorders; J43.9 Emphysema, unspecified; B37.89 Other sites of candidiasis; I10 Essential (primary) hypertension; R91.1 Solitary pulmonary nodule; M25.421 Effusion, right elbow; E78.5 Hyperlipidemia, unspecified; M79.672 Pain in left foot; F32.A Depression, unspecified; R07.9 Chest pain, unspecified; Y92.89 Other specified places as the place of occurrence of the external cause; L53.8 Other specified erythematous conditions; Z99.81 Dependence on supplemental oxygen; F41.9 Anxiety disorder, unspecified; X58.XXXD Exposure to other specified factors, subsequent encounter; G89.4 Chronic pain syndrome; J96.11 Chronic respiratory failure with hypoxia; G62.9 Polyneuropathy, unspecified; S52.121D Displaced fracture of head of right radius, subsequent encounter for closed fracture with routine healing; G47.33 Obstructive sleep apnea (adult) (pediatric); M00.021 Staphylococcal arthritis, right elbow; K21.9 Gastro-esophageal reflux disease without esophagitis; E83.42 Hypomagnesemia; Z86.718 Personal history of other venous thrombosis and embolism; I70.0 Atherosclerosis of aorta; M70.21 Olecranon bursitis, right elbow; M48.56XA Collapsed vertebra, not elsewhere classified, lumbar region, initial encounter for fracture

== ENCOUNTER 2023-12-08 11:58 | Inpatient (IN) ==
--- NOTE | 2023-12-08 12:18 | Emergency Department Note ---
Impression & Plan Pulmonary embolism, COPD (chronic obstructive pulmonary disease), Hypomagnesemia ED Provider Note NAME: ANGELES BURLESON AGE: 68 SEX: M : 1955 ARRIVES VIA: Walk-In INFORMANT: Patient ED PROVIDER(S): Pete Agee MD CHIEF COMPLAINT: Shortness of breath, body pain. PLAN: Disposition: Admit MEDICAL DECISION MAKING: The patient is a pleasant 68-year-old gentleman with a past medical history of COPD on home oxygen at night, TAYLOR, GERD, spinal stenosis, right elbow olecranon septic bursitis managed in July and October of this year completing treatment with IV Vancomycin last month who presents to the emergency department via walk- in for evaluation of ongoing shortness of breath and generalized bodyaches which he reports has been evolving over the past several weeks. Patient denies any measured fevers or feverishness. Denies any productive sputum. Denies any known sick contacts. On evaluation patient is in no distress, afebrile stable vital signs. He has scant bilateral pitting ankle edema without discoloration or tenderness. Lungs with diminished breath sounds and underlying wheeze of bilateral lung fuller with normal respiratory effort. EKG without overt acute ischemia. CXR with dependent airspace opacity but otherwise no focal infiltrates. WBC 13.2 K with neutrophilia but no left shift, nonspecific. H/H similar to prior. Platelets 4 48K, nonspecific. D-dimer elevated at 4140. Chemistry without metabolic acidosis. Magnesium 1.5 with IV repletion initiated. High-sensitivity troponin 8.1, within normal limits. BNP is within normal limits. LFTs are similar to prior range of values. Lipase is not elevated. Procalcitonin is not elevated. Respiratory BioFire was negative. CT of the chest was obtained and demonstrates segmental and subsegmental right lower lobe pulmonary embolus. There is no evidence of right heart strain. Findings reviewed with the patient and he does agree with plan for admission for further management. He denies any recent bloody or black stool. Case was discussed with Faye Courtney, [facility] PAC, with Dr. Garcia, [facility] hospitalist who will evaluate the patient for admission. Heparin bolus and drip initiated. Triage Nursing notes reviewed and agree them. Prior/external medical records reviewed Vital Signs: reviewed Differential diagnosis: Reactive airway disease, pneumonia, pneumothorax, COPD, CHF, infections, cardiac ischemia, pulmonary embolism, musculoskeletal, gastrointestinal, as well as other pathologies. ER treatment provided: See below. Diagnostics interpreted by me: ECG: Normal sinus rhythm, 80 bpm, no ectopy, no overt ST elevation or depression, QTc 475 QRS 80. Cardiac Monitoring: An order for continuous cardiac monitoring was placed and demonstrated Normal sinus rhythm, 80 bpm, no ectopy. Laboratory studies: See below Imaging studies: See below Consultation(s): Faye Courtney, [facility] PAC, with Dr. Garcia, [facility] hospitalist. HPI: The patient is a pleasant 68-year-old gentleman with a past medical history of COPD on home oxygen at night, TAYLOR, GERD, spinal stenosis, right elbow olecranon septic bursitis managed in July and October of this year completing treatment with IV Vancomycin last month who presents to the emergency department via walk-in for evaluation of ongoing shortness of breath and generalized bodyaches which he reports has been evolving over the past several weeks. Patient denies any measured fevers or feverishness. Denies any productive sputum. Denies any known sick contacts. ROS: See above HPI for pertinent positives & negatives. A total of 10 systems reviewed and were otherwise negative. VITALS:See Below PHYSICAL EXAMINATION: GENERAL: Awake, alert, fatigued-appearing, in no distress HENT: Normocephalic, atraumatic. Oropharynx with dry mucous membranes and otherwise unremarkable. EYES: Normal conjunctiva. Sclera non-icteric. NECK: Supple. No nuchal rigidity. FROM. No JVD. RESPIRATORY: Diminished breath sounds and underlying wheeze of bilateral lung fuller with normal respiratory effort. CARDIAC: Regular rate, normal rhythm. Extremities warm and well perfused. Pulses equal. ABDOMEN: Soft, non-distended. No tenderness to palpation. No rebound or guarding. No masses. MUSCULOSKELETAL: Chest examination reveals no tenderness. The back is symmetrical on inspection without obvious abnormality. There is no CVA tenderness to palpation. No joint edema. LOWER EXTREMITIES: Calves are equal size bilaterally. Scant bilateral pitting ankle edema without discoloration or tenderness. NEURO: Normal sensorium. No sensory or motor deficits noted. SKIN: No rash or jaundice noted. ED COURSE: Critical Care: I have personally spent greater than 35 minutes of critical care time in the direct management of this patient. This includes bedside care, interpretation of diagnostic studies, and testing, discussion with consultants, patient, and family members, and other required patient management activities. This 35 minutes is in excess of all separately billable procedures. Pete Agee MD Past Med/Surg History Problem List (Updated 12/08/23 @ 17:08 by Pete Agee MD) Hypomagnesemia (Acute) COPD (chronic obstructive pulmonary disease) (Acute) Pulmonary embolism (Acute) Olecranon bursitis, right elbow Acute exacerbation of chronic obstructive pulmonary disease (COPD) (Acute) 10/09/23-10/11/23 admission Acute on chronic hypoxic respiratory failure (Acute) 10/09/23-10/11/23 admission COPD exacerbation Type 2 diabetes mellitus Septic arthritis of elbow, right Elevated LFTs Thrombus of aorta (Acute) Current smoker Chronic bronchitis COPD with emphysema Multiple pulmonary nodules Pulmonary nodule seen on imaging study Compression fracture of L5 vertebra Closed fracture of radial head (Acute) Closed compression fracture of lumbar vertebra (Acute) Nasal polyp Acquired deviated nasal septum (Acute) Arthritis (Acute) Cervical radiculopathy (Acute) Chronic post-thoracotomy pain (Acute) Chronic sinusitis (Acute) Hypertrophy of nasal turbinates (Acute) Obesity (Acute) Post-nasal drip Chronic - stable Tobacco abuse Viral upper respiratory illness hx HLD (hyperlipidemia) (Chronic) TAYLOR (obstructive sleep apnea) Cannot tolerate device Anxiety (Chronic) Neuropathy (Chronic) GERD (gastroesophageal reflux disease) (Chronic) Well controlled and stable Diaphragmatic hernia (Chronic) Thoracic spinal stenosis (Chronic) Hypertension (Chronic) Medical History Hyperglycemia Ha1c 6.2% 10/10/23 labs; no mention of DMII by PCP Cigarette smoker Obesity 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 Saw vascular: started on [id number] and Eliquis. Eliquis was then D/C by pulmonary 04/2023. Pt had normal f/u chest CTA 06/20/23 Irregular cardiac rhythm pt noted to have 25beats of Nonsustained VTach vs PAT day of discharge (08/09/23) [facility]; pt denied sx; started on metoprolol and ordered Zio monitor and Cardio referral Peripheral vascular disease Chronic diastolic heart failure PCP monitoring; ECHO 10/03/23 with nl EF and Gr I DD. 'no changes to medications needed at this time. Continue lasix daily' per PCP Chronic back pain "hx broken back"no back surgery Arthritis GERD (gastroesophageal reflux disease) Hx pulmonary embolism 2017 developed after a bad fall (was on coumadin for 1 year) Cardiac murmur no significant valve disease per 10/03/23 ECHO Hypertension Hyperlipidemia Chronic obstructive pulmonary disease 'group D' per pulm. Pt admitted [facility] for COPD exacerbation 10/08-10/11/23; admitted [facility] for COPD exacerbation (also had COVID at the time): 09/22- 09/25/23; admitted for COPD exacerbation 05/17-05/21/23 Asthma required rescue inhaler "just the other day" Chronic respiratory failure On oxygen at night in the past - but no longer needs per patient . Per 10/18/23 PCP note, 'pt stable from a respiratory standpoint' Hx of migraines Sleep apnea 2L O2 HS (no other device) History of COVID-19 Admitted [facility] 09/22-09/25/23 COVID+ and COPD exacerbation; pt states no longer having COVID sx Pneumothorax Hx- complication from pain injection- resolved Histoplasmosis 2002- treated Surgical History H/O hernia repair History of esophagogastroduodenoscopy (EGD) Hx of colonoscopy History of open reduction and internal fixation (ORIF) procedure right shoulder History of total replacement of left shoulder joint History of sinus surgery History of placement of chest tube History of hand surgery right/left Left femoral shaft fracture Dutch placed>hardware intact H/O total hip arthroplasty left H/O elbow surgery R radial head ORIF prior to 2009; R elbow I&D 08/05/23: GA: MAC#4, ETT#7.5HiLo, Gr View 1 H/O exploratory thoracotomy "Left thoracotomy wedge biopsy of left upper lobe with excision of lesion or nodule & frozen section 2002" H/O hernia repair [facility] incarcerated supraumbilical hernia repair open no mesh 02/17/01 Family History Father Heart disease Hypertension Brother Heart disease Cancer Hypertension Stroke Mother Cancer Other Leukemia No family history of adverse response to anesthesia No family history of bleeding disorder Non-Hodgkin lymphoma Denies family history of Hearing loss Asthma Social History Smoking Status: Never smoker Tobacco Type: Cigarettes Age Started Using Tobacco: 11; packs per day: 1; Cigarettes Per Day: 10 cig daily>advised; Second Hand Exposure: No; Do You Dip or Chew Tobacco: No; Hx Alcohol Use: No Hx Substance Use: No Preferred Language: Trinidadian Communication Ability: Effective 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 Beliefs That Will Affect Care: None marital status: Current Living Situation: Spouse current occupational status: unemployed Feels Safe at Home: Yes Assistive Devices: Glasses, Oxygen - at Night and Walker Allergies Allergies Allergy/AdvReac Type Severity Reaction Status Date / Time No Known Allergies Allergy Verified 12/08/23 15:18 Home Meds Home Medications Medication Instructions Recorded Confirmed pregabalin 100 mg capsule (Lyrica) 100 mg PO BID 10/16/17 12/08/23 ondansetron 8 mg disintegrating 8 mg PO Q8H PRN Nausea 04/07/22 12/08/23 tablet clobetasol 0.05 % topical cream 1 applic topical BID PRN Rash 12/29/22 12/08/23 levalbuterol HCl 1.25 mg/3 mL 1.25 mg inhalation Q4H PRN Wheezing 12/29/22 12/08/23 solution for nebulization triamcinolone acetonide 0.1 % 1 applic topical BID PRN Rash 12/29/22 12/08/23 topical cream (Triderm) cyanocobalamin (vitamin B-12) 1,000 mcg PO QAM 03/08/23 12/08/23 1,000 mcg tablet (Vitamin B-12) escitalopram oxalate 10 mg tablet 10 mg PO QAM 06/13/23 12/08/23 (Lexapro) furosemide 40 mg tablet (Lasix) 40 mg PO QAM Fluid accumulation, 10/10/23 12/08/23 weight gain loperamide 2 mg tablet (Imodium 4 mg PO TID PRN Diarrhea 10/10/23 12/08/23 A-D) montelukast 10 mg tablet 10 mg PO HS 10/10/23 12/08/23 (Singulair) prochlorperazine maleate 5 mg 5 mg PO Q6H PRN NAUSEA/VOMITING 10/10/23 12/08/23 tablet (Compazine) atorvastatin 80 mg tablet (Lipitor) 80 mg PO QAM 10/19/23 12/08/23 magnesium chloride 64 mg 64 mg PO QAM 10/19/23 12/08/23 (magnesium chloride) tablet,delayed release (Mag 64) fluconazole 200 mg tablet 400 mg PO BID 11/20/23 12/08/23 Previous Rx's Medication Instructions Recorded aspirin 81 mg tablet,delayed 81 mg PO QAM #30 tabs 03/11/23 release pantoprazole 40 mg tablet,delayed 40 mg PO BID 30 days #60 tabs 04/06/23 release (Protonix) albuterol sulfate 90 mcg/actuation 2 puff inhalation Q4H PRN 04/26/23 aerosol inhaler Shortness Of Breath Or Wheezing #8.5 grams CPAP Machine #1 ea 06/24/23 CPAP Supplies #1 ea 06/24/23 metoprolol tartrate 25 mg tablet 12.5 mg (1/2 x 25 mg) PO BID #30 08/09/23 tabs fluticasone fur. 100 mcg-umeclid 1 inh inhalation DAILY #60 ea 10/11/23 62.5 mcg-vilant 25 mcg inhalat.powder (Trelegy Ellipta) Results & Data (ED) Vital Signs Vital Signs - 24 hr 12/08/23 12:01 12/08/23 12:20 12/08/23 12:26 Temperature 36.9 C Temperature Source Temporal Artery Scan Pulse Rate 92 H 77 Pulse Rate [Apical] 80 Pulse Rate from SpO2 Sensor Respiratory Rate 16 16 Respiratory Effort / Characteristics Non-Labored Respiratory Depth Normal Blood Pressure 138/80 Blood Pressure [Left Arm] 115/81 Blood Pressure Mean 99 Blood Pressure Mean [Left Arm] 92 Pulse Oximetry 96 95 Oxygen Delivery Method Room Air Oxygen Flow Rate Sepsis Recent Fever Within 48 Hours No Sepsis New/Unexplained Change in Mental Status N/A Sepsis Action Taken by Nursing No Action Required 12/08/23 12:49 12/08/23 13:00 12/08/23 13:18 Temperature Temperature Source Pulse Rate 77 Pulse Rate [Apical] 83 Pulse Rate from SpO2 Sensor 77 Respiratory Rate 20 21 Respiratory Effort / Characteristics Respiratory Depth Blood Pressure Blood Pressure [Left Arm] 123/77 Blood Pressure Mean Blood Pressure Mean [Left Arm] 92 Pulse Oximetry 97 94 93 Oxygen Delivery Method Room Air Room Air Oxygen Flow Rate Sepsis Recent Fever Within 48 Hours Sepsis New/Unexplained Change in Mental Status Sepsis Action Taken by Nursing 12/08/23 14:00 12/08/23 15:00 12/08/23 16:30 Temperature Temperature Source Pulse Rate 77 Pulse Rate [Apical] 89 75 Pulse Rate from SpO2 Sensor Respiratory Rate 22 24 Respiratory Effort / Characteristics Respiratory Depth Blood Pressure Blood Pressure [Left Arm] 126/78 116/86 Blood Pressure Mean Blood Pressure Mean [Left Arm] 94 96 Pulse Oximetry 94 92 Oxygen Delivery Method Room Air Oxygen Flow Rate Sepsis Recent Fever Within 48 Hours Sepsis New/Unexplained Change in Mental Status Sepsis Action Taken by Nursing 12/08/23 16:39 Temperature Temperature Source Pulse Rate Pulse Rate [Apical] 75 Pulse Rate from SpO2 Sensor Respiratory Rate 22 Respiratory Effort / Characteristics Respiratory Depth Blood Pressure Blood Pressure [Left Arm] 138/83 Blood Pressure Mean Blood Pressure Mean [Left Arm] 101 Pulse Oximetry 96 Oxygen Delivery Method Nasal Cannula Oxygen Flow Rate 2 Sepsis Recent Fever Within 48 Hours Sepsis New/Unexplained Change in Mental Status Sepsis Action Taken by Nursing Laboratory Data Attestation: I reviewed the patient's lab results. 12/08/23 12:15 12/08/23 12:15 Lab Results 12/08/23 12/08/23 12/08/23 Range/Units 12:15 12:50 12:51 WBC 13.21 H (4.8-10.8) K/ul RBC 4.57 L (4.70-6.10) M/uL Hgb 13.9 L (14.0-18.0) g/dl POC Hgb 13.9 L (14.0-18.0) g/dl Hct 41.5 L (42.0-52.0) % POC Hct 41 L (42-52) % MCV 90.8 (80.0-100.0) fL MCH 30.4 (25.0-34.0) pg MCHC 33.5 (32.0-36.0) g/dL RDW Std Deviation 50.5 H (36.4-46.3) fL RDW Coeff of Jaz 15.2 H (11.5-14.5) % Plt Count 448 H (130-400) K/uL MPV 11.0 (9.4-12.4) fL Immature Gran % (Auto) 0.5 % Neut % (Auto) 71.8 % Lymph % (Auto) 16.0 % Bath % (Auto) 8.8 % Eos % (Auto) 2.5 % Baso % (Auto) 0.4 % Neut # (Auto) 9.49 H (1.40-6.50) K/uL Lymph # (Auto) 2.11 (1.20-3.40) K/uL Bath # (Auto) 1.16 H (0.11-0.59) K/uL Eos # (Auto) 0.33 (0.00-0.50) K/uL Baso # (Auto) 0.05 (0.00-0.20) K/uL Immature Gran # (Auto) 0.07 (0.01-0.20) K/uL PT 10.8 (9.0-12.0) Seconds INR 1.0 (0.9-1.1) APTT 26 (21-31) Seconds PTT Ratio 1.0 D-Dimer 4140 H* (0-500) ug/L FEU POC Sodium 138 (135-144) mmol/L Sodium 139 (136-145) mmol/L POC Potassium 4.0 (3.3-5.0) mmol/L Potassium 4.1 (3.5-5.1) mmol/L POC Chloride 103 (101-112) mmol/L Chloride 104 (98-107) mmol/L Carbon Dioxide 27 (21-32) mmol/L POC Total CO2 23 L (24-31) mmol/L Anion Gap 8 (3-11) POC Anion Gap 18.0 (16-25) mmol/L POC BUN 19 H (7-18) mg/dl BUN 20 (6-23) mg/dl Creatinine 0.73 (0.6-1.4) mg/dl POC Creatinine 0.7 (0.6-1.3) mg/dl Est Cr Clr Drug Dosing 101.5 ml/min eGFR 97.88 BUN/Creatinine Ratio 27.4 H (10-20) Glucose 94 (70-99(Fasting)) mg/dl POC Glucose (other) 95 (70-99) mg/dl Calcium 9.5 (8.6-10.3) mg/dl POC Ioniz Calcium Madalyn 1.24 (1.12-1.32) mmol/l Magnesium 1.5 L (1.7-2.4) mg/dl Total Bilirubin 0.5 (0.2-1.0) mg/dl AST 75 H (13-39) U/L ALT 94 H (7-52) U/L Alkaline Phosphatase 222 H (34-104) U/L Troponin I High Sens 8.1 (0-20) pg/ml B-Natriuretic Peptide 41 (0-100) pg/ml Total Protein 6.6 (6.0-8.3) gm/dl Albumin 3.3 L (3.4-5.0) gm/dl Globulin 3.3 (2.5-4.0) gm/dl Albumin/Globulin Ratio 1.0 (0.9-2) Lipase 35 (11-82) U/L Procalcitonin 0.04 (0-0.5) ng/ml Adenovirus (PCR) Not Detected (NotDetected) B. pertussis DNA (PCR) Not Detected (NotDetected) B.parapertussis DNA PCR Not Detected (NotDetected) C. pneumoniae DNA (PCR) Not Detected (NotDetected) Coronavirus OC43 (PCR) Not Detected (NotDetected) Coronavirus HKU1 (PCR) Not Detected (NotDetected) Coronavirus 229E (PCR) Not Detected (NotDetected) SARS-CoV-2 (PCR) Not Detected (NotDetected) Coronavirus NL63 (PCR) Not Detected (NotDetected) Human Metapneumovir PCR Not Detected (NotDetected) Influenza Type A (PCR) Not Detected (NotDetected) Influenza Type B (PCR) Not Detected (NotDetected) M. pneumoniae (PCR) Not Detected (NotDetected) Parainfluenza 1 (PCR) Not Detected (NotDetected) Parainfluenza 2 (PCR) Not Detected (NotDetected) Parainfluenza 3 (PCR) Not Detected (NotDetected) Parainfluenza 4 (PCR) Not Detected (NotDetected) RSV (PCR) Not Detected (NotDetected) Entero/Rhino (PCR) Not Detected (NotDetected) Administered Medications Heparin Sodium/Dextrose (Heparin Sodium/Dextrose) 25,000 units in 500 mls @ 27 mls/hr IV .[id number] YUN; Protocol Stop: 01/07/24 16:14 Last Admin: 12/08/23 16:14 Dose: 1,350 units/hr, 27 mls/hr Documented By: PIERRE Co-signed By: CARYN Discontinued Medications Albuterol (Albut/Ipratrop 3mg/0.5mg Neb 3 Ml Vial) 3 ml NEB NOW STA; Protocol Stop: 12/08/23 12:29 Last Admin: 12/08/23 12:41 Dose: 3 ml Documented By: PIERRE Heparin Sodium (Porcine) (Heparin Sod (Porcine) 1000 Unit/Ml) 6,000 units IV NOW ONE Stop: 12/08/23 16:06 Last Admin: 12/08/23 16:14 Dose: 6,000 units Documented By: PIERRE Co-signed By: CARYN Heparin Sodium/Dextrose (Heparin Iv Adult Wt-Based Standard W/ Initial Bolus Protocol) 1 each IV NOW STA; Protocol Stop: 12/08/23 15:50 Last Admin: 12/08/23 16:18 Dose: Not Given Documented By: PIERRE Acetaminophen (Ofirmev) 1,000 mg in 100 mls @ 400 mls/hr IV NOW STA Stop: 12/08/23 12:42 Last Infusion: 12/08/23 12:55 Dose: Infused Documented By: Admin: 12/08/23 12:41 Dose: 400 mls/hr Documented By: PIERRE Magnesium Sulfate/Dextrose (Magnesium Sulfate / D5w) 1 gm in 100 mls @ 100 mls/hr IV Q1H [facility] Stop: 12/08/23 15:57 Last Infusion: 12/08/23 16:18 Dose: Infused Documented By: Admin: 12/08/23 15:26 Dose: 100 mls/hr Documented By: Infusion: 12/08/23 15:20 Dose: Infused Documented By: Admin: 12/08/23 14:22 Dose: 100 mls/hr Documented By: PIERRE Ioversol (Optiray 320 125ml) 120 ml IV ONCE ONE Stop: 12/08/23 14:17 Last Admin: 12/08/23 14:17 Dose: 120 ml Documented By: SANAM Methylprednisolone (Methylprednisolone 125 Mg/2 Ml Vial) 125 mg IV NOW STA Stop: 12/08/23 12:29 Last Admin: 12/08/23 12:41 Dose: 125 mg Documented By: D Imaging Data Radiologist's Impression: Chest X-Ray 12/08/23 12:26 SINGLE VIEW CHEST CLINICAL HISTORY: Atypical chest pain FINDINGS: An AP, portable, upright chest radiograph is compared to study dated 11/01/2023 and correlated with chest CT dated 05/18/2023. The examination is degraded by portable technique and apical lordotic positioning. A left-sided PICC line is unchanged in position. The heart is enlarged noting atherosclerotic calcification of the thoracic aorta. Emphysema and chronic interstitial thickening is similar to previous. Postsurgical change is noted in the left upper lung. Pleural thickening is again seen at the left lung base. Bibasilar opacities likely represent scarring/atelectasis. No large pleural effusion or pneumothorax is seen. The skeletal structures are osteopenic. Chronic deformity for surgical change is noted in the right proximal humerus. Shoulder arthroplasty is in place. IMPRESSION: 1. Cardiomegaly and emphysema without radiographic evidence of congestive failure. 2. Dependent airspace opacity likely scarring/atelectasis. Correlate clinically definitively superimposed pneumonitis. Follow up radiographically if warranted. 3. Postsurgical change is again seen in the left upper lung. ACT 112: Negative or not required by law. Electronically signed by: Wayne Baez M.D. 12/08/2023 12:43 PM Chest CTA 12/08/23 13:55 CT angio chest PE protocol CLINICAL HISTORY: sob, elevated D-dimer, r/o PE TECHNIQUE: Multidetector row helical CT of the chest was performed with angiographic protocol. Coronal and sagittal reformations were obtained. Coronal and sagittal MIPS were obtained from the axial data set and were submitted for review. Automated dose lowering techniques and/or adjustment according to patient size were utilized for this exam. CT DOSE: 813.79 mGy.cm Comparison: Comparison is made to CT chest 05/18/2023 FINDINGS: Lungs and pleura: Interstitial thickening is seen with minimal paraseptal erythematous changes. There is a 6 mm nodule in the left major fissure (series 4 image 145). Heart and pericardium: Heart size is normal. No pericardial effusion. Vessels: There is a small segmental/subsegmental pulmonary embolus in the right lower lobe. Moderate atherosclerotic disease is seen. Mediastinum and jorje: Subcentimeter lymph nodes are seen. Chest wall and lower neck: Unremarkable. Abdomen: Unremarkable. Bones: Degenerative changes in the thoracic spine. IMPRESSION: 1. There is a segmental/subsegmental right lower lobe pulmonary embolus. No right heart strain is seen. 2. Interstitial lung disease. Additional findings as above. ACT 112: Negative or not required by law. Electronically signed by: Florin Soto M.D. 12/08/2023 2:55 PM Discharge Plan Visit Data Chief Complaint: Pain (Generalized) Stated Complaint: BODYACHES/PAIN EVERYWHERE, RT ARM FUNGUS/INFECTION ED Provider: Pete Agee Discharge Problem: Pulmonary embolism, COPD (chronic obstructive pulmonary disease), Hypomagnesemia Forms Stand Alone Forms: [employer] Prescriptions Prescriptions: No Action (DME) CPAP Machine Misc See Rx Instructions .MEDSUPPLY Qty: 1 0RF Rx Instructions: CPAP with 7 cm H20 pressure. G47.33 (DME) CPAP Supplies Misc See Rx Instructions .MEDSUPPLY Qty: 1 0RF Rx Instructions: CPAP supplies, ResMed F20 mask, headgear, filters, tubing, water chamber. G47.33 albuterol sulfate 90 mcg/actuation HFA aerosol inhaler 2 puff INHALATION Q4H PRN (Reason: Shortness Of Breath Or Wheezing) Qty: 8.5 3RF Rx Instructions: Pt might need a new script, medication is . pregabalin [Lyrica] 100 mg Capsule 100 mg PO BID cyanocobalamin (vitamin B-12) [Vitamin B-12] 1,000 mcg Tablet 1,000 mcg PO QAM aspirin 81 mg Tablet,Delayed Release (Dr/Ec) 81 mg PO QAM Qty: 30 0RF ondansetron 8 mg Tablet,Disintegrating 8 mg PO Q8H PRN (Reason: Nausea) clobetasol 0.05 % Cream 1 applic TOPICAL BID PRN (Reason: Rash) triamcinolone acetonide [Triderm] 0.1 % Cream 1 applic TOPICAL BID PRN (Reason: Rash) levalbuterol HCl 1.25 mg/3 mL solution for nebulization 1.25 mg INHALATION Q4H PRN (Reason: Wheezing) prochlorperazine maleate [Compazine] 5 mg tablet 5 mg PO Q6H PRN (Reason: NAUSEA/VOMITING) loperamide [Imodium A-D] 2 mg Tablet 4 mg PO TID PRN (Reason: Diarrhea) montelukast [Singulair] 10 mg tablet 10 mg PO HS furosemide [Lasix] 40 mg tablet 40 mg PO QAM Trelegy Ellipta 100-62.5-25 mcg blister with device 1 inh inhalation DAILY Qty: 60 0RF atorvastatin [Lipitor] 80 mg tablet 80 mg PO QAM magnesium chloride [Mag 64] 64 mg tablet,delayed release (DR/EC) 64 mg PO QAM fluconazole 200 mg tablet 400 mg PO BID pantoprazole [Protonix] 40 mg tablet,delayed release (DR/EC) 40 mg PO BID 30 Days Qty: 60 2RF escitalopram oxalate [Lexapro] 10 mg tablet 10 mg PO QAM metoprolol tartrate 25 mg tablet 12.5 mg PO BID Qty: 30 0RF Referrals Referrals: Ajit Moreno MD [Primary Care Provider] - Discharge Problem: Pulmonary embolism Qualifiers: Pulmonary embolism type: unspecified Chronicity: acute Acute cor pulmonale presence: without acute cor pulmonale Qualified Code(s): I26.99 - Other pulmonary embolism without acute cor pulmonale COPD (chronic obstructive pulmonary disease) Qualifiers: COPD type: unspecified COPD Qualified Code(s): J44.9 - Chronic obstructive pulmonary disease, unspecified
[2023-12-08] MEDS: methylPREDNISolone 125 MG/2 ML VIAL IV STA (12:41)
[2023-12-08] MEDS: ACETAMINOPHEN 1,000 MG/100 ML VIAL IV STA (12:41)
[2023-12-08] MEDS: ALBUT/IPRATROP 3MG/0.5MG NEB 3 ML VIAL NEB STA (12:41)
--- NOTE | 2023-12-08 12:44 | XRay Report ---
SINGLE VIEW CHEST CLINICAL HISTORY: Atypical chest pain FINDINGS: An AP, portable, upright chest radiograph is compared to study dated 11/01/2023 and correlat ed with chest CT dated 05/18/2023. The examination is degraded by portable technique and apical lordot ic positioning. A left-sided PICC line is unchanged in position. The heart is enlarged noting atheros clerotic calcification of the thoracic aorta. Emphysema and chronic interstitial thickening is simila r to previous. Postsurgical change is noted in the left upper lung. Pleural thickening is again seen at the left lung base. Bibasilar opacities likely represent scarring/atelectasis. No large pleural ef fusion or pneumothorax is seen. The skeletal structures are osteopenic. Chronic deformity for surgica l change is noted in the right proximal humerus. Shoulder arthroplasty is in place. IMPRESSION: 1. Cardiomegaly and emphysema without radiographic evidence of congestive failure. 2. Dependent airspace opacity likely scarring/atelectasis. Correlate clinically definitively superimp osed pneumonitis. Follow up radiographically if warranted. 3. Postsurgical change is again seen in the left upper lung. ACT 112: Negative or not required by law. Electronically signed by: Wayne Baez M.D. 12/08/2023 12:43 PM
[2023-12-08 13:01] LABS: Basophils # (auto) 0.05 K/uL (0.00-0.20); Basophils % (auto) 0.4 %; Eosinophils # (auto) 0.33 K/uL (0.00-0.50); Eosinophils % (auto) 2.5 %; Hematocrit (blood only) 41.5 % (42.0-52.0); Hemoglobin 13.9 g/dl (14.0-18.0); Immature Granulocytes # (auto) 0.07 K/uL (0.01-0.20); Immature Granulocytes % (auto) 0.5 %; Lymphocytes # (auto) 2.11 K/uL (1.20-3.40); Mean Corpuscular Hemoglobin 30.4 pg (25.0-34.0); Mean Corpuscular Hgb Conc 33.5 g/dL (32.0-36.0); Mean Corpuscular Volume 90.8 fL (80.0-100.0); Monocytes # (auto) 1.16 K/uL (0.11-0.59); Monocytes % (auto) 8.8 %; Neutrophils # (auto) 9.49 K/uL (1.40-6.50); Neutrophils % (auto) 71.8 %; Platelet Count 448 K/uL (130-400); RDW Coefficient of Variation 15.2 % (11.5-14.5); RDW Standard Deviation 50.5 fL (36.4-46.3); Red Blood Count 4.57 M/uL (4.70-6.10); White Blood Count 13.21 K/ul (4.8-10.8)
[2023-12-08 13:02] LABS: iSTAT Creatinine 0.7 mg/dl (0.6-1.3); iSTAT Hemoglobin 13.9 g/dl (14.0-18.0); iSTAT Ionized Calcium 1.24 mmol/l (1.12-1.32)
[2023-12-08 13:22] LABS: Albumin Level 3.3 gm/dl (3.4-5.0); BUN Creatinine Ratio 27.4 (10-20); Bilirubin,Total 0.5 mg/dl (0.2-1.0); Calcium 9.5 mg/dl (8.6-10.3); Creatinine Clr Calc Pharmacy 101.5 ml/min; Globulin 3.3 gm/dl (2.5-4.0); Magnesium 1.5 mg/dl (1.7-2.4); Potassium 4.1 mmol/L (3.5-5.1); Total Protein 6.6 gm/dl (6.0-8.3)
[2023-12-08 13:28] LABS: Troponin I High Sensitivity 8.1 pg/ml (0-20)
[2023-12-08 13:39] LABS: Prothrombin Time 10.8 Seconds (9.0-12.0)
[2023-12-08 13:50] LABS: Adenovirus PCR Not Detected (NotDetected); Bordetella parapertussis PCR Not Detected (NotDetected); Bordetella pertussis PCR Not Detected (NotDetected); Chlamydia pneumoniae PCR Not Detected (NotDetected); Coronavirus 229E PCR Not Detected (NotDetected); Coronavirus CoV-2 (COVID19)PCR Not Detected (NotDetected); Coronavirus HKU1 PCR Not Detected (NotDetected); Coronavirus NL63 PCR Not Detected (NotDetected); Coronavirus OC43PCR Not Detected (NotDetected); Human Metapneumovirus PCR Not Detected (NotDetected); Influenza A PCR Not Detected (NotDetected); Influenza B PCR Not Detected (NotDetected); Mycoplasma pneumoniae PCR Not Detected (NotDetected); Parainfluenza Virus 1 PCR Not Detected (NotDetected); Parainfluenza Virus 2 PCR Not Detected (NotDetected); Parainfluenza Virus 3 PCR Not Detected (NotDetected); Parainfluenza Virus 4 PCR Not Detected (NotDetected); Respiratory Syncytial VirusPCR Not Detected (NotDetected); Rhinovirus/Enterovirus PCR Not Detected (NotDetected)
[2023-12-08 13:53] LABS: D Dimer 4140 ug/L FEU (0-500)
[2023-12-08] MEDS: OPTIRAY 320 125ml IV ONE (14:17)
[2023-12-08] MEDS: MAGNESIUM SULFATE / D5W 1 GM/100 ML BAG IV SCH (14:22)
--- NOTE | 2023-12-08 14:56 | CT Scan Report ---
CT angio chest PE protocol CLINICAL HISTORY: sob, elevated D-dimer, r/o PE TECHNIQUE: Multidetector row helical CT of the chest was performed with angiographic protocol. Padron l and sagittal reformations were obtained. Coronal and sagittal MIPS were obtained from the axial mynor a set and were submitted for review. Automated dose lowering techniques and/or adjustment according to patient size were utilized for this exam. CT DOSE: 813.79 mGy.cm Comparison: Comparison is made to CT chest 05/18/2023 FINDINGS: Lungs and pleura: Interstitial thickening is seen with minimal paraseptal erythematous changes. There is a 6 mm nodule in the left major fissure (series 4 image 145). Heart and pericardium: Heart size is normal. No pericardial effusion. Vessels: There is a small segmental/subsegmental pulmonary embolus in the right lower lobe. Moderate atherosclerotic disease is seen. Mediastinum and jorje: Subcentimeter lymph nodes are seen. Chest wall and lower neck: Unremarkable. Abdomen: Unremarkable. Bones: Degenerative changes in the thoracic spine. IMPRESSION: 1. There is a segmental/subsegmental right lower lobe pulmonary embolus. No right heart strain is se en. 2. Interstitial lung disease. Additional findings as above. ACT 112: Negative or not required by law. Electronically signed by: Florin Soto M.D. 12/08/2023 2:55 PM
--- NOTE | 2023-12-08 15:38 | Electrocardiogram Report ---
Test Reason : Blood Pressure : */* mmHG Vent. Rate : 80 BPM Atrial Rate : 80 BPM P-R Int : 162 ms QRS Dur : 78 ms QT Int : 412 ms P-R-T Axes : 69 46 40 degrees QTcB Int : 475 ms Normal sinus rhythm Normal ECG When compared with ECG of 01-Nov-2023 08:35, Criteria for Inferior infarct are no longer Present T wave inversion no longer evident in Inferior leads Confirmed by Shan Magallon ([id number]) on 12/08/2023 3:37:42 PM Referred By: REFERRED SELF Confirmed By: Shan Magallon
--- NOTE | 2023-12-08 15:59 | History & Physical Report ---
Date of Service December 08, 2023 Assessment & Plan (1) Pulmonary embolism: Plan Florentin Franks is a 68y/o M with PMHx significant for hyperlipidemia, hypertension, COPD/pulmonary emphysema, chronic diastolic heart failure [/EF 55-59% -- TTE 09/2023], PVD, TAYLOR on 2L O2 HS, aortic atherosclerosis, GERD with esophagitis, chronic pain syndrome, senile osteoporosis, history of descending aortic thrombus, history of PE, tobacco use disorder and adjustment disorder with depressed mood/CARLOS who presented to the ED for evaluation secondary to generalized weakness and SOB/dyspnea. He was found to have a small segmental/subsegmental pulmonary embolus in the right lower lobe. Acute Pulmonary Embolus: Chest CTA --> A small segmental/subsegmental pulmonary embolus in the right lower lobe. Patient with previous history of DVT/PE and aortic thrombus. BLE venous doppler negative for DVT. CXR negative. On 2L of O2 currently. Was not hypoxic upon arrival to the ED. Vitals stable. IV heparin drip initiated. Diarrhea: Stool PCR pending. C diff pending - high possibility given recent prolonged ABX use. Clear liquid diet for now, lactose free. Hypomagnesemia: Magnesium repleted parenterally in the ED, continue home oral magnesium supplementation. R Elbow Olecranon Septic Bursitis: He recently was admitted here last month (10/27/2023-11/02/2023) for right elbow olecranon septic bursitis. He was discharged at that time on a 6-week course of IV caspofungin and vancomycin. He reports that he finished both of these IV medication courses in their entirety; however, he is still experiencing a significant amount of right elbow pain in addition to some associated swelling as well. Right elbow CT with soft tissue swelling however no evidence of fluid collection or underlying osteomyelitis. Will restart his IV caspofungin and vancomycin. Both ortho and ID consulted. Blood culture x 2 pending. Other Chronic Medical Conditions: HTN, COPD, HLD, GERD, depression/CARLOS --> Can continue home medications for these specific conditions. PRN nebs, continue 2L via NC HS for TAYLOR. DVT Prophylaxis: On IV heparin as per above, continue. Code Status: FULL CODE PCP: Ajit Moreno MD Disposition: Admit to PCU/Telemetry Patient seen in collaboration with Dr. Garcia. Please see addendum. I spent a total of 65 minutes coordinating, documenting, and providing care for this patient excluding time spent in the performance of separately billed services. This included personally reviewing all current laboratories and imaging studies, medical reconciliation, outpatient chart review and discussion with specialists. This chart was completed in part utilizing Speech Voice Recognition Software. Grammatical errors, random word insertions, pronoun errors, and incomplete sentences are an occasional consequence of this system due to software limitations, ambient noise, and hardware issues. Any formal questions or concerns about the content, text, or information contained within the body of this dictation should be directly addressed to the provider for clarification. History of Present Illness Chief Complaint: Generalized Weakness, SOB/Dyspnea Primary Care Provider: Ajit Moreno MD Florentin Franks is a 68y/o M with PMHx significant for hyperlipidemia, COPD/pulmonary emphysema, chronic diastolic heart failure [/EF 55-59% -- TTE 09/2023], PVD, TAYLOR on 2L O2 HS, aortic atherosclerosis, GERD with esophagitis,/ chronic pain syndrome, senile osteoporosis, history of descending aortic thrombus, history of PE, tobacco use disorder and adjustment disorder with depressed mood/CARLOS who presented to the ED for evaluation secondary to generalized weakness and SOB/dyspnea. History obtained from the patient and associated chart review. Patient has been feeling increasingly weaker and fatigued over the past ~3 weeks. He has also been feeling increasingly short of breath over this time as well. He wears 2 L via NC HS at baseline for treatment of TAYLOR. He has not required any increased oxygen support since this shortness of breath started. He was not hypoxic upon arrival to the ED, however he was tachypneic and slightly tachycardic. He was also notably wheezy according to the ED provider. His wheezing has since improved following a DuoNeb and 125mg of IV Solu-Medrol. He does endorse an ongoing cough productive of clear to whitish-colored sputum. No recorded hemoptysis. He recently was admitted here last month (10/27/2023-11/02/2023) for right elbow olecranon septic bursitis. He was discharged at that time on a 6-week course of IV caspofungin and vancomycin. He reports that he finished both of these IV medication courses in their entirety. He has also been having some diarrhea over the past week. Reports that he has been passing 4-5 loose stools per day. Denies any blood in his stool. He reports a good appetite and has been hydrating well at home. He was diligent with taking probiotics while on the antibiotic. He has been experiencing muscle aches in addition to the fatigue as well. His right elbow is still very painful to the touch and swollen. No fevers that he can recall but he has been having some chills however. No issues with urination. Allergies Allergy/AdvReac Type Severity Reaction Status Date / Time No Known Allergies Allergy Verified 12/08/23 15:18 Home Medications Medication Instructions Recorded Confirmed Type pregabalin 100 mg capsule (Lyrica) 100 mg PO BID 10/16/17 12/08/23 History ondansetron 8 mg disintegrating 8 mg PO Q8H PRN Nausea 04/07/22 12/08/23 History tablet clobetasol 0.05 % topical cream 1 applic topical BID PRN Rash 12/29/22 12/08/23 History levalbuterol HCl 1.25 mg/3 mL 1.25 mg inhalation Q4H PRN Wheezing 12/29/22 12/08/23 History solution for nebulization triamcinolone acetonide 0.1 % 1 applic topical BID PRN Rash 12/29/22 12/08/23 History topical cream (Triderm) cyanocobalamin (vitamin B-12) 1,000 mcg PO QAM 03/08/23 12/08/23 History 1,000 mcg tablet (Vitamin B-12) aspirin 81 mg tablet,delayed 81 mg PO QAM #30 tabs 03/11/23 12/08/23 Rx release pantoprazole 40 mg tablet,delayed 40 mg PO BID 30 days #60 tabs 04/06/23 12/08/23 Rx release (Protonix) albuterol sulfate 90 mcg/actuation 2 puff inhalation Q4H PRN 04/26/23 12/08/23 Rx aerosol inhaler Shortness Of Breath Or Wheezing #8.5 grams escitalopram oxalate 10 mg tablet 10 mg PO QAM 06/13/23 12/08/23 History (Lexapro) CPAP Machine #1 ea 06/24/23 12/08/23 Rx CPAP Supplies #1 ea 06/24/23 12/08/23 Rx metoprolol tartrate 25 mg tablet 12.5 mg (1/2 x 25 mg) PO BID #30 08/09/23 12/08/23 Rx tabs furosemide 40 mg tablet (Lasix) 40 mg PO QAM Fluid accumulation, 10/10/23 12/08/23 History weight gain loperamide 2 mg tablet (Imodium 4 mg PO TID PRN Diarrhea 10/10/23 12/08/23 History A-D) montelukast 10 mg tablet 10 mg PO HS 10/10/23 12/08/23 History (Singulair) prochlorperazine maleate 5 mg 5 mg PO Q6H PRN NAUSEA/VOMITING 10/10/23 12/08/23 History tablet (Compazine) fluticasone fur. 100 mcg-umeclid 1 inh inhalation DAILY #60 ea 10/11/23 12/08/23 Rx 62.5 mcg-vilant 25 mcg inhalat.powder (Trelegy Ellipta) atorvastatin 80 mg tablet (Lipitor) 80 mg PO QAM 10/19/23 12/08/23 History magnesium chloride 64 mg 64 mg PO QAM 10/19/23 12/08/23 History (magnesium chloride) tablet,delayed release (Mag 64) fluconazole 200 mg tablet 400 mg PO BID 11/20/23 12/08/23 History Past Med/Surg History Problem List Hypomagnesemia (Acute) COPD (chronic obstructive pulmonary disease) (Acute) Pulmonary embolism (Acute) Olecranon bursitis, right elbow Acute exacerbation of chronic obstructive pulmonary disease (COPD) (Acute) 10/09/23-10/11/23 admission Acute on chronic hypoxic respiratory failure (Acute) 10/09/23-10/11/23 admission COPD exacerbation Type 2 diabetes mellitus Septic arthritis of elbow, right Elevated LFTs Thrombus of aorta (Acute) Current smoker Chronic bronchitis COPD with emphysema Multiple pulmonary nodules Pulmonary nodule seen on imaging study Compression fracture of L5 vertebra Closed fracture of radial head (Acute) Closed compression fracture of lumbar vertebra (Acute) Nasal polyp Acquired deviated nasal septum (Acute) Arthritis (Acute) Cervical radiculopathy (Acute) Chronic post-thoracotomy pain (Acute) Chronic sinusitis (Acute) Hypertrophy of nasal turbinates (Acute) Obesity (Acute) Post-nasal drip Chronic - stable Tobacco abuse Viral upper respiratory illness hx HLD (hyperlipidemia) (Chronic) TAYLOR (obstructive sleep apnea) Cannot tolerate device Anxiety (Chronic) Neuropathy (Chronic) GERD (gastroesophageal reflux disease) (Chronic) Well controlled and stable Diaphragmatic hernia (Chronic) Thoracic spinal stenosis (Chronic) Hypertension (Chronic) Medical History Hyperglycemia Ha1c 6.2% 10/10/23 labs; no mention of DMII by PCP Cigarette smoker Obesity 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 Saw vascular: started on [id number] and Eliquis. Eliquis was then D/C by pulmonary 04/2023. Pt had normal f/u chest CTA 06/20/23 Irregular cardiac rhythm pt noted to have 25beats of Nonsustained VTach vs PAT day of discharge (08/09/23) [facility]; pt denied sx; started on metoprolol and ordered Zio monitor and Cardio referral Peripheral vascular disease Chronic diastolic heart failure PCP monitoring; ECHO 10/03/23 with nl EF and Gr I DD. 'no changes to medica tions needed at this time. Continue lasix daily' per PCP Chronic back pain "hx broken back"no back surgery Arthritis GERD (gastroesophageal reflux disease) Hx pulmonary embolism 2017 developed after a bad fall (was on coumadin for 1 year) Cardiac murmur no significant valve disease per 10/03/23 ECHO Hypertension Hyperlipidemia Chronic obstructive pulmonary disease 'group D' per pulm. Pt admitted [facility] for COPD exacerbation 10/08-10/11/23; admitted [facility] for COPD exacerbation (also had COVID at the time): 09/22- 09/25/23; admitted for COPD exacerbation 05/17-05/21/23 Asthma required rescue inhaler "just the other day" Chronic respiratory failure On oxygen at night in the past - but no longer needs per patient . Per 10/18/23 PCP note, 'pt stable from a respiratory standpoint' Hx of migraines Sleep apnea 2L O2 HS (no other device) History of COVID-19 Admitted [facility] 09/22-09/25/23 COVID+ and COPD exacerbation; pt states no longer having COVID sx Pneumothorax Hx- complication from pain injection- resolved Histoplasmosis 2002- treated Surgical History H/O hernia repair History of esophagogastroduodenoscopy (EGD) Hx of colonoscopy History of open reduction and internal fixation (ORIF) procedure right shoulder History of total replacement of left shoulder joint History of sinus surgery History of placement of chest tube History of hand surgery right/left Left femoral shaft fracture Dutch placed>hardware intact H/O total hip arthroplasty left H/O elbow surgery R radial head ORIF prior to 2009; R elbow I&D 08/05/23: GA: MAC#4, ETT#7.5HiLo, Gr View 1 H/O exploratory thoracotomy "Left thoracotomy wedge biopsy of left upper lobe with excision of lesion or nodule & frozen section 2002" H/O hernia repair [facility] incarcerated supraumbilical hernia repair open no mesh 02/17/01 Family History Father Heart disease Hypertension Brother Heart disease Cancer Hypertension Stroke Mother Cancer Other Leukemia No family history of adverse response to anesthesia No family history of bleeding disorder Non-Hodgkin lymphoma Denies family history of Hearing loss Asthma Social History Smoking Status: Never smoker Tobacco Type: Cigarettes Age Started Using Tobacco: 11; packs per day: 1; Cigarettes Per Day: 10 cig daily>advised; Second Hand Exposure: No; Do You Dip or Chew Tobacco: No; Hx Alcohol Use: No Hx Substance Use: No Preferred Language: Bengali Communication Ability: Effective Kerrick Kleaner Operator Required: No Beliefs That Will Affect Care: None marital status: Current Living Situation: Spouse current occupational status: unemployed Feels Safe at Home: Yes Assistive Devices: Glasses, Oxygen - at Night and Walker Review of Systems Review of Systems: At least ten systems reviewed and negative, except as noted in the HPI. Physical Exam Physical Exam: Please refer to Dr. Garcia's addendum for physical examination findings. Results & Data Results & Data Vital Signs (Past 12 Hours) Vital Signs Temp Pulse Pulse Resp BP BP Pulse Ox 12/08/23 15:00 75 24 116/86 92 12/08/23 14:00 89 22 126/78 94 10/31/24 13:18 77 21 93 12/08/23 13:00 83 20 123/77 94 12/08/23 12:49 97 12/08/23 12:26 77 12/08/23 12:20 80 16 115/81 95 12/08/23 12:01 36.9 C 92 H 16 138/80 96 O2 Del Method 12/08/23 15:00 Room Air 12/08/23 14:00 12/08/23 13:18 12/08/23 13:00 Room Air 12/08/23 12:49 Room Air 12/08/23 12:26 12/08/23 12:20 12/08/23 12:01 Room Air Laboratory Results Short CBC 12/08/23 Range/Units 12:15 WBC 13.21 H (4.8-10.8) K/ul Hgb 13.9 L (14.0-18.0) g/dl Hct 41.5 L (42.0-52.0) % Plt Count 448 H (130-400) K/uL BMP 12/08/23 12:15 Sodium 139 Potassium 4.1 Chloride 104 Carbon Dioxide 27 BUN 20 Creatinine 0.73 Glucose 94 Calcium 9.5 Liver Function 12/08/23 Range/Units 12:15 Total Bilirubin 0.5 (0.2-1.0) mg/dl AST 75 H (13-39) U/L ALT 94 H (7-52) U/L Alkaline Phosphatase 222 H (34-104) U/L Albumin 3.3 L (3.4-5.0) gm/dl Diagnostic Findings Chest X-Ray 12/08/23 12:26 SINGLE VIEW CHEST CLINICAL HISTORY: Atypical chest pain FINDINGS: An AP, portable, upright chest radiograph is compared to study dated 11/01/2023 and correlated with chest CT dated 05/18/2023. The examination is degraded by portable technique and apical lordotic positioning. A left-sided PICC line is unchanged in position. The heart is enlarged noting atherosclerotic calcification of the thoracic aorta. Emphysema and chronic interstitial thickening is similar to previous. Postsurgical change is noted in the left upper lung. Pleural thickening is again seen at the left lung base. Bibasilar opacities likely represent scarring/atelectasis. No large pleural effusion or pneumothorax is seen. The skeletal structures are osteopenic. Chronic deformity for surgical change is noted in the right proximal humerus. Shoulder arthroplasty is in place. IMPRESSION: 1. Cardiomegaly and emphysema without radiographic evidence of congestive failure. 2. Dependent airspace opacity likely scarring/atelectasis. Correlate clinically definitively superimposed pneumonitis. Follow up radiographically if warranted. 3. Postsurgical change is again seen in the left upper lung. ACT 112: Negative or not required by law. Electronically signed by: Wayne Baez M.D. 12/08/2023 12:43 PM Chest CTA 12/08/23 13:55 CT angio chest PE protocol CLINICAL HISTORY: sob, elevated D-dimer, r/o PE TECHNIQUE: Multidetector row helical CT of the chest was performed with angiographic protocol. Coronal and sagittal reformations were obtained. Coronal and sagittal MIPS were obtained from the axial data set and were submitted for review. Automated dose lowering techniques and/or adjustment according to patient size were utilized for this exam. CT DOSE: 813.79 mGy.cm Comparison: Comparison is made to CT chest 05/18/2023 FINDINGS: Lungs and pleura: Interstitial thickening is seen with minimal paraseptal erythematous changes. There is a 6 mm nodule in the left major fissure (series 4 image 145). Heart and pericardium: Heart size is normal. No pericardial effusion. Vessels: There is a small segmental/subsegmental pulmonary embolus in the right lower lobe. Moderate atherosclerotic disease is seen. Mediastinum and jorje: Subcentimeter lymph nodes are seen. Chest wall and lower neck: Unremarkable. Abdomen: Unremarkable. Bones: Degenerative changes in the thoracic spine. IMPRESSION: 1. There is a segmental/subsegmental right lower lobe pulmonary embolus. No right heart strain is seen. 2. Interstitial lung disease. Additional findings as above. ACT 112: Negative or not required by law. Electronically signed by: Florin Soto M.D. 12/08/2023 2:55 PM Medications Administered Heparin Sodium/Dextrose (Heparin Sodium/Dextrose) 25,000 units in 500 mls @ 27 mls/hr IV .[id number] [facility]; Protocol Stop: 01/07/24 16:14 Last Admin: 12/08/23 16:14 Dose: 1,350 units/hr, 27 mls/hr Documented By: PIERRE Co-signed By: CARYN Discontinued Medications Albuterol (Albut/Ipratrop 3mg/0.5mg Neb 3 Ml Vial) 3 ml NEB NOW STA; Protocol Stop: 12/08/23 12:29 Last Admin: 12/08/23 12:41 Dose: 3 ml Documented By: PIERRE Heparin Sodium (Porcine) (Heparin Sod (Porcine) 1000 Unit/Ml) 6,000 units IV NOW ONE Stop: 12/08/23 16:06 Last Admin: 12/08/23 16:14 Dose: 6,000 units Documented By: PIERRE Co-signed By: CARYN Heparin Sodium/Dextrose (Heparin Iv Adult Wt-Based Standard W/ Initial Bolus Protocol) 1 each IV NOW STA; Protocol Stop: 12/08/23 15:50 Last Admin: 12/08/23 16:18 Dose: Not Given Documented By: PIERRE Acetaminophen (Ofirmev) 1,000 mg in 100 mls @ 400 mls/hr IV NOW STA Stop: 12/08/23 12:42 Last Infusion: 12/08/23 12:55 Dose: Infused Documented By: Admin: 12/08/23 12:41 Dose: 400 mls/hr Documented By: PIERRE Magnesium Sulfate/Dextrose (Magnesium Sulfate / D5w) 1 gm in 100 mls @ 100 mls/hr IV Q1H YUN Stop: 12/08/23 15:57 Last Infusion: 12/08/23 16:18 Dose: Infused Documented By: Admin: 12/08/23 15:26 Dose: 100 mls/hr Documented By: Infusion: 12/08/23 15:20 Dose: Infused Documented By: Admin: 12/08/23 14:22 Dose: 100 mls/hr Documented By: PIERRE Ioversol (Optiray 320 125ml) 120 ml IV ONCE ONE Stop: 12/08/23 14:17 Last Admin: 12/08/23 14:17 Dose: 120 ml Documented By: SANAM Methylprednisolone (Methylprednisolone 125 Mg/2 Ml Vial) 125 mg IV NOW STA Stop: 12/08/23 12:29 Last Admin: 12/08/23 12:41 Dose: 125 mg Documented By: PIERRE Code Status & VTE Plan Code Status FULL CODE VTE Prophylaxis Plan VTE Prophylaxis will be ordered: Yes (1) Pulmonary embolism Acute cor pulmonale presence: without acute cor pulmonale Chronicity: acute Pulmonary embolism type: unspecified Qualified Code(s): I26.99 - Other pulmonary embolism without acute cor pulmonale
[2023-12-08] MEDS ORDERED: HEPARIN SOD (PORCINE) 1000 UNIT/ML IV ONE (16:05)
[2023-12-08 16:11] LABS: Partial Thromboplastin Time 26 Seconds (21-31)
[2023-12-08] MEDS: HEPARIN SODIUM/DEXTROSE 25,000 UNITS/500 ML BAG IV SCH (16:14)
[2023-12-08] MEDS: HEPARIN SOD (PORCINE) 1000 UNIT/ML IV ONE (16:14)
[2023-12-08] MEDS: Heparin IV Adult Wt-Based Standard w/ INITIAL Bolus Protocol IV STA (16:18)
--- NOTE | 2023-12-08 17:04 | Communication Note ---
Date of Service: December 08, 2023 Attending Addendum: Case reviewed with the advanced practitioner. I have personally performed a history and physical examination on the patient. I have reviewed the advanced practitioner's documentation on the date of service referenced in note, and I agree with, and take responsibility for the plan of care. please refer to her notes for full details patient seen and examined, records reviewed by myself as well on exam, patient seen resting in bed, comfortable on 2 L O2 via NC states breathing is better after neb treatment and IV steroids given earlier (+) cough with clear sputum, no fever/chills no chest pain reports persistent R elbow pain and generalized myalgias reports few day history of 2-3 loose, non bloody bowel movements and mild abdominal discomfort, poor appetite no other symptoms VS noted and reviewed oriented x 3, not in distress, speaks in sentences with no effort nor accessory muscle use normal rate, regular rhythm, no murmurs clear breath sounds bilaterally, no wheezing non distended, soft, nontender R elbow: surgical site healing well, moderate edema, mild erythema, (+) significant tenderness (+) mild lower extremity edema: L>R, No erythema, warmth no neuro deficits all labs, imaging noted and reviewed ASSESSMENT AND PLAN> R LOWER LOBE ACUTE PULMONARY EMBOLISM Recurrent PE/DVT 1st episode PE 2nd episode DVT- most recent one a few months ago as per patient, taken off blood thinner after a few months, no bleeding issues as per patient for this episode, main risk factor is immobilization due to R elbow infection on 2 Liter of O2 currently only uses O2 at night at home BP stable Heparin drip started at the ER, continue ACUTE BRONCHITIS (+) wheezing on admission, given IV Solumedrol and Duoneb on my exam, wheezing resolved continue Nebs QID for now POSSIBLE PERSISTENT RIGHT ELBOW INFECTION s/p ID, hardware removal October 2023 completed IV Vanco and Caspofungin 2 days ago, follows with Yuri LANIER (+) edema, erythema, tenderness on exam today; surgical wound healing well, no drainage obtain CT elbow to r/o abscess/fluid collection blood culture: pending Ortho and ID consult resume IV Vanco + Caspo DIARRHEA r/o C diff in light of prolonged antibiotic course Stool PCR and C diff ordered clear liquid diet other diagnoses and plan of care as per advanced practitioner's notes Preston Garcia MD
--- NOTE | 2023-12-08 17:25 | Ultrasound Report ---
US venous doppler LE BI CLINICAL HISTORY: r/o DVT TECHNIQUE: Bilateral lower extremity real-time compression venous ultrasound with Color Doppler imagi ng. Utilizing real-time ultrasonic imaging multiple real time high-resolution ultrasonic images with compression and noncompression maneuvers of the deep venous system in addition to color doppler imagi ng were performed from the common femoral vein through the proximal calf veins. COMPARISON: None available at the time of this dictation. FINDINGS/IMPRESSION: No deep venous thrombus, there is normal compressibility of the deep venous system from the common fe moral vein through the proximal calf veins. No superficial venous thrombosis is identified. ACT 112: Negative or not required by law. Electronically signed by: Florin Soto M.D. 12/08/2023 5:24 PM
--- NOTE | 2023-12-08 17:43 | CT Scan Report ---
CT elbow RT wo con CLINICAL HISTORY: R elbow warmth/swelling, recent infection TECHNIQUE: Multidetector row helical CT of the right elbow was performed without intravenous contrast . Coronal and sagittal reformations were obtained. Automated dose lowering techniques and/or adjustme nt according to patient size were utilized for this examination. CT DOSE: 828.4 mGy.cm Comparison: Comparison is made to MRI of 10/21/2023 FINDINGS: The osseous structures are without fracture or dislocation. Postsurgical changes are seen in the elbo w joint with surrounding bony fragments which may be chronic. No joint effusion is seen. Soft tissue swelling is seen about the elbow most prominently posteriorly. IMPRESSION: Soft tissue swelling is seen. No definite drainable fluid collection is seen although evaluation is l imited by noncontrast technique. No evidence of fracture or underlying osteomyelitis. ACT 112: Negative or not required by law. Electronically signed by: Florin Soto M.D. 12/08/2023 5:41 PM
--- OUTSIDE RECORDS SUMMARY | 2023-12-08 18:16 | External Medical Summary | Summary of Care ---
Author Name Unknown Organization [facility] Address [address] [place] [address] Phone [phone] Care Team Providers Care Dye Colorist Dyer Name Role Phone Ajit Moreno MD Primary Care Provider [phone] Encounter Details Date Type Department Care Team (Late st Contact Info) Description 09/06/2023 Telephone [facility] [address] [place] [address] Ajit Moreno MD [address] [place] [address] Allergies Active Allergy Reactions Criticality Noted Date Comments Fluticasone High 02/27/2020 Other reaction(s): lightheadedness and nausea Umeclidinium High 02/27/2020 Other reaction(s): lightheadedness and nausea Vilanterol High 02/27/2020 Other reaction(s): lightheadedness and nausea documented as of this encounter (statuses as of 12/06/2023) Medications Medication Sig Dispensed Refills Start Date End Date Status Clobetasol Propionate 0.05 % External Ointment (Temovate)Indications: Stasis dermatitis of both legs Apply 2x daily to rash on legs until resolved, then as needed when flaring 60 g 08/27/2021 Active documented as of this encounter (statuses as of 12/06/2023) Active Problems Problem Noted Date Diagnosed Date Depression, unspecified 11/07/2023 Depression, unspecified 11/07/2023 Severe obesity (BMI 35.0-39.9) with comorbidity 05/27/2023 [...] Classes - YA Class D - Inhaled Tpscxlwrhrecfz-VGBC-HOAP Combination Inhaler (Cliffllegy) Remote Patient Monitoring Vendor: [...] as of this encounter (statuses as of 12/06/2023) Resolved Problems Problem Noted Date Diagnosed Date [...] LUNG, NOT ELSEWHERE CLASSIFIED 06/12/2002 09/14/2018 CHEST [id number] 04/09/200209/2018 ABN FD-INTRATHOR ORG NEC-akbar nodule 03/06/2002 [...] as of this encounter (statuses as of 12/06/2023) Immunizations Name Administration Dates Next Due COVID-19 mRNA, LNP-s, No Pre serve, 2-Dose Series (Qwbcg) 05/22/2020,05/01/2020 Seasonal Influenza, PF, 6 M & above, IM , (FluLaval or Fluzone) 10/26/2019,12/22/2018,12/28/2017 Seasonal Influenza, Quadriva lent Hd (Fluzone Hd) 01/08/2022 documented as of this encounter Social History Tobacco Use Types Packs/Day Years Used Date Smoking Tobacco: Every Day Cigarettes 0.5 45.6 Started: 03/19/2003 Passive Smoke Exposure: Past Smokeless [...] encounter Miscellaneous Notes * Telephone Encounter - Jessie Arriaga MED ASSIST - 09/06/2023 10:52 AM EDT Received lab results from [facility]. Results have been FIMS'd in already and are placed on the provider's desk for review. documented in this encounter Plan of Treatment Upcoming Encounters Date Type Department Care Team (Late st Contact Info) Description 12/23/2023 4:00 PM EST Home Visit [facility] [address] [place] [address] Rosa Parra RN [address] [place] [address] Scheduled Procedures Name Priority Associated Diagnoses Date/Ti [...] 01/08/2022, 10/26/2019, 12/22/2018, Additional history exists Depression Monitoring 04/07/2024 04/08/2023 DTap/Tdap Vaccines (1 - Tdap) [...] ASSESSMENT COMPLETED IN PAST YEAR FOR COPD 11/24/2024 11/25/2023 Colonoscopy 03/18/2026 03/18/2021, 10/2021, 12/18/2019, Additional history exists Colorectal Cancer Screening 03/18/2026 Hepatitis C Screening Completed 05/31/2017 , 08/07/2015, 05/03/2014 RETIRED - COLONOSCOPY-ANNUAL AGES 18-100 Discontinued 03/18/2021, 03/18/2021, 12/18/2019, Additional history exists RETIRED - COLONOSCOPY-EVERY 5 YRS AGES 18-100 Discontinued 03/18/2021, 03/18/2021, 12/18/2019, Additional history exists VITAMIN D LEVEL ONCE IN A LIFETIME-USE SMARTSET# 53520 Completed 06/16/2021, 05/03/2014 AAA Screening Completed 09/24/2022, [...] 9:12 AM 05/09/2003 10:12 AM Care Teams Dye Colorist Dyer Relationship Specialty Start Date End Date June, Ajit Sylvester MD [address] [place] [address] PCP - General Family Medicine 03/11/22 documented as of this encounter
--- OUTSIDE RECORDS SUMMARY | 2023-12-08 18:16 | External Medical Summary | Summary of Care ---
Author Name Unknown Organization [facility] Address [address] [place] [address] Phone [phone] Care Team Providers Care Biofuels Operations Manager Name Role Phone Ajit Moreno MD Primary Care Provider Reason for Visit * Reason Onset Date Comments Home Health 09/06/2023 FYI 09/06/2023 Encounter Details Date Type Department Care Team (Late st Contact Info) Description 09/06/2023 Telephone [facility] [address] [place] [address] JuneAjit MD [address] [place] [address] Home Health; Allergies Active Allergy Reactions Criticality Noted Date [...] Classes - YA Class D - Inhaled Uuznvlqhgsxlir-JHYJ-STXN Combination Inhaler (Tejinder) Remote Patient Monitoring Vendor: [...] LUNG, NOT ELSEWHERE CLASSIFIED 06/12/2002 09/14/2018 CHEST [id number] 04/09/200209/2018 ABN FD-INTRATHOR ORG NEC-akbar nodule 03/06/2002 [...] Telephone Encounter - Ajit Moreno MD - 09/06/2023 3:49 PM EDT Signed and placed in bin for faxing. Ajit Moreno MD * Telephone Encounter - Carmen Guerrero LPN - 09/06/2023 3:43 PM EDT Received orders that need providers signature in regards to Antibiotics and PICC line, Please review and sign if appropriate for patient. * Telephone Encounter - Ajit Moreno MD - 09/06/2023 3:23 PM EDT Noted. He can notify the office if elbow worsens. Ajit Moreno MD * Telephone Encounter - Peyton Bautista LPN - 09/06/2023 2:25 PM EDT HH Discharge Domingo, Calling from: [facility] Patient is/has been discharged from Home Health on 09/06/23 All goals have been met and patient is safe at home. FYI to PCP PICC line discontinued. Patient complaining of pain left elbow, 4 out of 10. Incision is good. Not red or warm to the touch. Shows no signs of infection. said he had been leaning on it. Unsure if that would cause the discomfort or not. Has [facility] appointment on 09/14/23 documented in this encounter Plan of Treatment Upcoming Encounters Date Type Department Care Team (Late st Contact Info) Description 12/23/2023 4:00 PM EST [facility] [address] [place] [address] Rosa Parra RN [address] [place] [address] Scheduled Procedures Name Priority Associated Diagnoses Date/Ti me COLONOSCOPY FLEXIBLE PROXIMAL DIAGNOSTIC Recall History of colon polyps Health Maintenance Due Date Last Done Comments DISCUSS TOBACCO CESSATION (REFER TO SMARTSET #0781) 1955 Alpha-1 Antitrypsin 12/04/1971 Cologuard 1998 Fecal [...] FOR COPD 11/24/2024 11/25/2023 Colonoscopy 03/18/2026 03/18/2021, /0 10/2021, 12/18/2019, Additional history exists Colorectal Cancer Screening 03/18/2026 Hepatitis C Screening Completed 05/31/2017 , 08/07/2015, 05/03/2014 RETIRED - COLONOSCOPY-ANNUAL AGES 18-100 Discontinued 03/18/2021, 03/18/2021, 12/18/2019, Additional history exists RETIRED - COLONOSCOPY-EVERY 5 YRS AGES 18-100 Discontinued 03/18/2021, 03/18/2021, 12/18/2019, Additional history exists VITAMIN D LEVEL ONCE IN A LIFETIME-USE SMARTSET# 61224 Completed 06/16/2021, 05/03/2014 AAA Screening Completed 09/24/2022, [...] 9:12 AM 05/09/2003 10:12 AM Care Teams Biofuels Operations Manager Relationship Specialty Start Date End Date June, Ajit Sylvester MD [address] [place] [address] PCP - General Family Medicine 03/11/22 documented as of this encounter
--- OUTSIDE RECORDS SUMMARY | 2023-12-08 18:16 | External Medical Summary | Summary of Care ---
Author Name Unknown Organization [facility] Address [address] [place] [address] Phone [phone] Care Team Providers Care Installer Inspector Final Name Role Phone Ajit Moreno MD Primary Care Provider [phone] Encounter Details Date Type Department Care Team (Late st Contact Info) Description 12/06/2023 Orders Only [facility] [address] [place] [address] Ajit Moreno MD [address] [place] [address] Allergies Active Allergy Reactions Criticality [...] ([facility]) Inhale 1 vial via nebulizer [...] ications:COPD, group C, by GOLD 2017 classification (HCC) Inhale 1 Puff by mouth in the [...] at bedtime. 90 Tablet 3 10/03/2023 Active Furosemide 40 MG Oral Tablet (Lasix)Indications:B ilateral lower extremity edema Take 1 Tablet by mouth in the morning for fluid accumulation or weight gain. 90 Tablet 3 10/21/2023 Active Azithromycin 250 MG Oral Tablet (Zithromax)Indicatio ns:COPD, group D, by GOLD 2017 classification ([facility]) take two tablets by mouth on day one, then one tablet on days two through five as needed for copd rescue 6 Tablet 10/26/2023 Active Additional Information Patient not taking.Reported on 11/07/2023 Magnesium Chloride 64 MG Oral Tablet Delayed Release (Mag-64)Indications: Hospital discharge follow-up Take 2 Tablets by mouth in the morning. 180 Tablet 1 11/07/2023 Active Probiotic Acidophilus Oral CapsuleIndications:H ospital discharge follow-up Take 1 Capsule by mouth in the morning. 30 Capsule 1 11/07/2023 Active Vancomycin IVPB injection Administer 262.5 mL intravenously in the morning and 262.5 mL before bedtime. Active Caspofungin Acetate 50 MG Intravenous Solution Reconstituted (Cancidas) Administer 50 mg intravenously in the morning. Active oxyCODONE HCl 10 MG Oral Tablet (Roxicodone) Take 1 Tablet by mouth every 6 hours as needed for Pain, Breakthrough. Active Hospital, Clinic, or Other Facility Administered Medication Ordered Dose Route Frequency Start Date End Date Status Albuterol Sulfate (Proventil) (2.5 MG/3ML) 0.083% inhalation solution 2.5 mgIndications:COPD, group D, by GOLD 2017 classification ([facility]),Centrilobular emphysema ([facility]) 2.5 mg NEBULIZER ONCE PRN 10/03/2023 Active documented as of this encounter (statuses as of 12/06/2023) Active Problems Problem Noted Date Diagnosed Date Depression, unspecified 11/07/2023 Depression, unspecified 11/07/2023 Severe obesity (BMI 35.0-39.9) with comorbidity 05/27/2023 Food insecurity 05/16/2023 Overview: Per [facility] Protocol Personal history of other [...] Classes - YA Class D - Inhaled Ixusshbmpgcjiv-GQXQ-RAQH Combination Inhaler (Cliffllegy) Remote Patient Monitoring Vendor: [...] LUNG, NOT ELSEWHERE CLASSIFIED 06/12/2002 09/14/2018 CHEST [id number] 04/09/200209/2018 ABN FD-INTRATHOR ORG NEC-akbar nodule 03/06/2002 [...] mRNA, LNP-s, No Pre serve, 2-Dose Series (Chemo Beanies) 05/22/2020,05/01/2020 Seasonal Influenza, PF, 6 M & [...] Description 12/23/2023 4:00 PM EST [facility] [address] [place] [address] Rosa Parra RN [address] [address] Scheduled Procedures Name Priority Associated Diagnoses Date/Ti me COLONOSCOPY FLEXIBLE PROXIMAL DIAGNOSTIC Recall History of colon polyps Health Maintenance Due Date Last Done Comments DISCUSS TOBACCO CESSATION (REFER TO SMARTSET #9794) 1955 Alpha-1 Antitrypsin 12/04/1971 Cologuard 1998 Fecal Occult Blood Test 1998 Sigmoidoscopy 1998 *ADVANCE DIRECTIVE NOT ON FILE 07/22/2018 *BISPHONATE OR OTHER ACCEPTABLE MEDICATION NEEDED FOR OSTEOPOROSIS (REFER TO SMARTSET #5929) 06/29/2022 Adult Wellness Visit 03/11/2023 03/11/2022, 08/31/2021, [...] FOR COPD 11/24/2024 11/25/2023 Colonoscopy 03/18/2026 03/18/2021, 02/0 10/2021, 12/18/2019, Additional history exists Colorectal Cancer Screening 03/18/2026 Hepatitis C Screening Completed 05/31/2017 , 08/07/2015, 05/03/2014 RETIRED - COLONOSCOPY-ANNUAL AGES 18-100 Discontinued 03/18/2021, 03/18/2021, 12/18/2019, Additional history exists RETIRED - COLONOSCOPY-EVERY 5 YRS AGES 18-100 Discontinued 03/18/2021, 03/18/2021, 12/18/2019, Additional history exists VITAMIN D LEVEL ONCE IN A LIFETIME-USE SMARTSET# 41515 Completed 06/16/2021, 05/03/2014 AAA Screening Completed 09/24/2022, [...] Procedure Name Priority Date/Time Associated Diagnosis Comments CHEMISTRY-OUTSIDE Routine 12/05/2023 documented in this encounter Results * (ABNORMAL) CHEMISTRY-OUTSIDE (12/05/2023) Not all results display below - see scan for full detail OUTSIDE LAB (SEE SCANNED REPORT) Comment:SCAN INCLUDES: CMP, CRP, VANC TROUGH, CBCD, SED RATE CREATININE 0.68 0.6 - 1.4 MG/DL OUTSIDE LAB (SEE SCANNED REPORT) EGFR 100 OUTSIDE LA B (SEE SCANNED REPORT) POTASSIUM 4.1 3.5 - 5.1 MMOL/L OUTSIDE LAB (SEE SCANNED REPORT) GLUCOSE 81 70 - 99 MG/DL OUTSIDE LAB (SEE SCANNED REPORT) HOURS FASTING OUTSID E LAB (SEE SCANNED REPORT) TRIGLYCERIDES-OUT SIDE LAB OUTSIDE LAB (SEE SCANNED REPORT) CHOLESTEROL-OUTSI DE LAB OUTSIDE LAB (SEE SCANNED REPORT) HDL-OUTSIDE LAB OUTS [facility] (SEE SCANNED REPORT) CHOL/HDL RATIO-OUTSIDE LAB OUTSIDE LA B (SEE SCANNED REPORT) LDL (CALCULATED)-OUTS [facility]AROD LAB OUTSIDE LAB (SEE SCANNED REPORT) LDL (DIRECT MEASURE)-OUTSIDE LAB OUTSIDE LAB (SEE SCANNED REPORT) HEMOGLOBIN, [id number] LAB OUTSIDE LAB (SEE SCANNED REPORT) PHOSPHORUS-OUTSID E LAB OUTSIDE LAB (SEE SCANNED REPORT) PTH-OUTSIDE LAB OUTS [facility] LAB (SEE SCANNED REPORT) MICROALBUMIN RATIO-OUTSIDE LAB OUTSIDE LA B (SEE SCANNED REPORT) PROTEIN, UA-OUTSIDE LAB OUTSIDE LAB (SEE SCANNED REPORT) HGB 12.8(A) 14 - 18 G/DL OUTSIDE LAB (SEE SCANNED REPORT) 12/05/2023 Ajit Moreno MD LABORATORY OUTSIDE LAB (SEE SCANNED REPORT) documented in this encounter Advance Directives * [...] 9:12 AM 05/09/2003 10:12 AM Care Teams Installer Inspector Final Relationship Specialty Start Date End Date June, Ajit Sylvester MD [address] [place] [address] PCP - General Family Medicine 03/11/22 documented as of this encounter
[2023-12-08] MEDS ORDERED: VANCOMYCIN CONSULT ACTIVE PRN (18:55)
[2023-12-08] MEDS ORDERED: MAGNESIUM HYDROXIDE SUSP 30 ML UDC PO PRN (18:55)
[2023-12-08] MEDS ORDERED: POLYETHYLENE (MIRALAX) 17 GM PACK PO PRN (18:55)
[2023-12-08] MEDS ORDERED: VANCOMYCIN HCL 1,500 MG in DEXTROSE 5% 500 ML IV SCH (18:55)
[2023-12-08] MEDS ORDERED: ONDANSETRON INJ 2 MG/ML 2 ML VIAL IV PRN (18:55)
[2023-12-08] MEDS: ACETAMINOPHEN 325 MG TAB PO PRN (19:11)
[2023-12-08] MEDS: ADVANCED PROBIOTIC 625 MG CAPSULE PO SCH (19:12)
[2023-12-08] MEDS: ALBUT/IPRATROP 3MG/0.5MG NEB 3 ML VIAL NEB SCH (19:32)
[2023-12-08] MEDS ORDERED: VANCOMYCIN 2,000 MG in D5W 500mL (Use w/ NSS Shortage) IV ONE (19:45)
[2023-12-08] MEDS: VANCOMYCIN HCL 2,000 MG in SODIUM CHLORIDE 0.9% 500 ML IV ONE (20:05)
[2023-12-08] MEDS: MONTELUKAST SODIUM 10 MG TABLET PO SCH (20:06)
[2023-12-08] MEDS: PANTOprazole 40 MG TAB PO SCH (20:06)
[2023-12-08] MEDS: METOPROLOL TARTRATE 25 MG TAB PO SCH (20:07)
--- NOTE | 2023-12-08 20:12 | Orthopedic Consultation ---
Date of Consultation December 08, 2023 Assessment & Plan (1) Olecranon bursitis, right elbow: (2) Acute exacerbation of chronic obstructive pulmonary disease (COPD): (3) Pulmonary embolism: (4) COPD (chronic obstructive pulmonary disease): (5) Acute on chronic hypoxic respiratory failure: (6) Type 2 diabetes mellitus: (7) Thrombus of aorta: (8) Current smoker: (9) Chronic bronchitis: Plan This is a 68-year-old gentleman who was admitted for a litany of medical issues, but orthopedics was consulted due to his right elbow. As summarized above, the patient was admitted in October with septic elbow/olecranon bursitis and his elbow and olecranon bursa were irrigated and debrided by Dr. Willis. The patient went on to heal his wound, and he did require long-term IV antimicrobials including vancomycin and an antifungal. He returns now with continued pain in the right elbow. On exam he is tender palpation over his olecranon, but there is no signs or symptoms concerning for abscess at this time. Patient does not have any palpable fluid collections, he has no significant erythema about his incision. His incision is well-healed. I do not believe the patient requires acute orthopedic intervention this hospitalization. I will forward this case along to Dr. Willis so that he is aware the patient returned to the hospital. Patient can continue to follow-up with Dr. Willis as an outpatient. History of Present Illness Reason for Consultation: Right elbow Attending Physician: Preston Garcia MD History of Present Illness This is a 68-year-old gentleman who is a previous patient of Dr. Willis's. In October, the patient had irrigation and debridement of a septic olecranon bur sitis and septic elbow by Dr. Willis. The patient presented to the emergency department with generalized weakness and fatigue. He was found to have pulmonary embolus in the right lower lobe. He is currently being managed by the medicine service for this. Orthopedics was consulted due to continued elbow pain. Patient's IV vancomycin and antifungal were restarted. PMHx significant for hyperlipidemia, hypertension, COPD/pulmonary emphysema, chronic diastolic heart failure [/EF 55-59% -- TTE 09/2023], PVD, TAYLOR on 2L O2 HS, aortic atherosclerosis, GERD with esophagitis, chronic pain syndrome, senile osteoporosis, history of descending aortic thrombus, history of PE, tobacco use disorder and adjustment disorder with depressed mood/CARLOS. Patient notes today that his elbow is still somewhat bothersome. It hurts right on the tip of the olecranon. Allergies Allergy/AdvReac Type Severity Reaction Status Date / Time No Known Allergies Allergy Verified 12/08/23 15:18 Home Medications Medication Instructions Recorded Confirmed Type pregabalin 100 mg capsule (Lyrica) 100 mg PO BID 10/16/17 12/08/23 History ondansetron 8 mg disintegrating 8 mg PO Q8H PRN Nausea 04/07/22 12/08/23 History tablet clobetasol 0.05 % topical cream 1 applic topical BID PRN Rash 12/29/22 12/08/23 History levalbuterol HCl 1.25 mg/3 mL 1.25 mg inhalation Q4H PRN Wheezing 12/29/22 12/08/23 History solution for nebulization triamcinolone acetonide 0.1 % 1 applic topical BID PRN Rash 12/29/22 12/08/23 History topical cream (Triderm) cyanocobalamin (vitamin B-12) 1,000 mcg PO QAM 03/08/23 12/08/23 History 1,000 mcg tablet (Vitamin B-12) aspirin 81 mg tablet,delayed 81 mg PO QAM #30 tabs 03/11/23 12/08/23 Rx release pantoprazole 40 mg tablet,delayed 40 mg PO BID 30 days #60 tabs 04/06/23 12/08/23 Rx release (Protonix) albuterol sulfate 90 mcg/actuation 2 puff inhalation Q4H PRN 04/26/23 12/08/23 Rx aerosol inhaler Shortness Of Breath Or Wheezing #8.5 grams escitalopram oxalate 10 mg tablet 10 mg PO QAM 06/13/23 12/08/23 History (Lexapro) CPAP Machine #1 ea 06/24/23 12/08/23 Rx CPAP Supplies #1 ea 06/24/23 12/08/23 Rx metoprolol tartrate 25 mg tablet 12.5 mg (1/2 x 25 mg) PO BID #30 08/09/23 12/08/23 Rx tabs furosemide 40 mg tablet (Lasix) 40 mg PO QAM Fluid accumulation, 10/10/23 12/08/23 History weight gain loperamide 2 mg tablet (Imodium 4 mg PO TID PRN Diarrhea 10/10/23 12/08/23 History A-D) montelukast 10 mg tablet 10 mg PO HS 10/10/23 12/08/23 History (Singulair) prochlorperazine maleate 5 mg 5 mg PO Q6H PRN NAUSEA/VOMITING 10/10/23 12/08/23 History tablet (Compazine) fluticasone fur. 100 mcg-umeclid 1 inh inhalation DAILY #60 ea 10/11/23 12/08/23 Rx 62.5 mcg-vilant 25 mcg inhalat.powder (Trelegy Ellipta) atorvastatin 80 mg tablet (Lipitor) 80 mg PO QAM 10/19/23 12/08/23 History magnesium chloride 64 mg 64 mg PO QAM 10/19/23 12/08/23 History (magnesium chloride) tablet,delayed release (Mag 64) fluconazole 200 mg tablet 400 mg PO BID 11/20/23 12/08/23 History Patient History Medical History Hyperglycemia Ha1c 6.2% 10/10/23 labs; no mention of DMII by PCP Cigarette smoker Obesity 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 Saw vascular: started on [id number] and Eliquis. Eliquis was then D/C by pulmonary 04/2023. Pt had normal f/u chest CTA 06/20/23 Irregular cardiac rhythm pt noted to have 25beats of Nonsustained VTach vs PAT day of discharge (08/09/23) [facility]; pt denied sx; started on metoprolol and ordered Zio monitor and Cardio referral Peripheral vascular disease Chronic diastolic heart failure PCP monitoring; ECHO 10/03/23 with nl EF and Gr I DD. 'no changes to medications needed at this time. Continue lasix daily' per PCP Chronic back pain "hx broken back"no back surgery Arthritis GERD (gastroesophageal reflux disease) Hx pulmonary embolism 2016 developed after a bad fall (was on coumadin for 1 year) Cardiac murmur no significant valve disease per 10/03/23 ECHO Hypertension Hyperlipidemia Chronic obstructive pulmonary disease 'group D' per pulm. Pt admitted [facility] for COPD exacerbation 10/08-10/11/23; admitted [facility] for COPD exacerbation (also had COVID at the time): 09/22- 09/25/23; admitted for COPD exacerbation 05/17-05/21/23 Asthma required rescue inhaler "just the other day" Chronic respiratory failure On oxygen at night in the past - but no longer needs per patient . Per 10/18/23 PCP note, 'pt stable from a respiratory standpoint' Hx of migraines Sleep apnea 2L O2 HS (no other device) History of COVID-19 Admitted [facility] 09/22-09/25/23 COVID+ and COPD exacerbation; pt states no longer having COVID sx Pneumothorax Hx- complication from pain injection- resolved Histoplasmosis 2002- treated Surgical History H/O hernia repair History of esophagogastroduodenoscopy (EGD) Hx of colonoscopy History of open reduction and internal fixation (ORIF) procedure right shoulder History of total replacement of left shoulder joint History of sinus surgery History of placement of chest tube History of hand surgery right/left Left femoral shaft fracture Dutch placed>hardware intact H/O total hip arthroplasty left H/O elbow surgery R radial head ORIF prior to 2009; R elbow I&D 08/05/23: GA: MAC#4, ETT#7.5HiLo, Gr View 1 H/O exploratory thoracotomy "Left thoracotomy wedge biopsy of left upper lobe with excision of lesion or nodule & frozen section 2002" H/O hernia repair [facility] incarcerated supraumbilical hernia repair open no mesh 02/17/01 Family History Father Heart disease Hypertension Brother Heart disease Cancer Hypertension Stroke Mother Cancer Other Leukemia No family history of adverse response to anesthesia No family history of bleeding disorder Non-Hodgkin lymphoma Denies family history of Hearing loss Asthma Social History Smoking Status: Never smoker Tobacco Type: Cigarettes Age Started Using Tobacco: 11; packs per day: 1; Cigarettes Per Day: 10 cig daily>advised; Second Hand Exposure: No; Do You Dip or Chew Tobacco: No; Hx Alcohol Use: No Hx Substance Use: No Preferred Language: Omani Communication Ability: Effective Resident In Diagnostic Radiology Required: No Beliefs That Will Affect Care: None marital status: Current Living Situation: Spouse current occupational status: unemployed Feels Safe at Home: Yes Assistive Devices: Glasses, Oxygen - at Night and Walker Review of Systems Review of Systems: Negative unless otherwise stated above Physical Exam Physical Exam: On examination of the patient's right elbow, his previous surgical incision is well-healed. There is no erythema. There is no palpable fluid collection. There is no wound dehiscence. There is no expressible material. AIN, PIN, radial, median, ulnar motor intact. Sensation intact light touch throughout the upper extremity. Results & Data Vital Signs (Past 12 Hours) Vital Signs Temp Pulse Pulse Resp BP BP Pulse Ox 12/08/23 19:32 76 18 94 12/08/23 19:20 36.5 C 82 19 128/79 95 12/08/23 16:39 75 22 138/83 96 12/08/23 16:30 77 12/08/23 15:00 75 24 116/86 92 12/08/23 14:00 89 22 126/78 94 12/08/23 13:18 77 21 93 12/08/23 13:00 83 20 123/77 94 12/08/23 12:49 97 12/08/23 12:26 77 12/08/23 12:20 80 16 115/81 95 12/08/23 12:01 36.9 C 92 H 16 138/80 96 O2 Del Method O2 Flow Rate 12/08/23 19:32 Nasal Cannula 2 12/08/23 19:20 Room Air 12/08/23 16:39 Nasal Cannula 2 12/08/23 16:30 12/08/23 15:00 Room Air 12/08/23 14:00 12/08/23 13:18 12/08/23 13:00 Room Air 12/08/23 12:49 Room Air 12/08/23 12:26 12/08/23 12:20 12/08/23 12:01 Room Air Diagnostic Findings CT of the elbow personally interpreted and reviewed. No discernible discrete fluid collection. No acute osseous abnormality appreciated. (3) Pulmonary embolism Acute cor pulmonale presence: without acute cor pulmonale Chronicity: acute Pulmonary embolism type: unspecified Qualified Code(s): I26.99 - Other pulmonary embolism without acute cor pulmonale (4) COPD (chronic obstructive pulmonary disease) COPD type: unspecified COPD Qualified Code(s): J44.9 - Chronic obstructive pulmonary disease, unspecified (6) Type 2 diabetes mellitus Diabetes mellitus jail insulin use: unspecified director long term care insulin use status
[2023-12-08] MEDS: oxyCODONE HCL IR 5 MG TAB (IMMEDIATE RELEASE) PO PRN (20:39)
[2023-12-08] MEDS: PREGABALIN 100 MG CAP PO SCH (20:40)
[2023-12-08] MEDS: CASPOFUNGIN 70 MG in SODIUM CHLORIDE 0.9% 250 ML IV ONE (20:46)
[2023-12-09 00:06] LABS: ANTI-Xa, UFH(UnfractionatedHep 0.74 IU/ml (0.3-0.7)
[2023-12-09] MEDS: VANCOMYCIN 1,250mg in D5W 250mL (Use w/ NSS Shortage) IV SCH (06:06)
[2023-12-09 06:39] LABS: Hemoglobin 12.7 g/dl (14.0-18.0); Mean Corpuscular Hemoglobin 30.8 pg (25.0-34.0); Mean Corpuscular Hgb Conc 34.3 g/dL (32.0-36.0); Mean Corpuscular Volume 89.6 fL (80.0-100.0); Mean Platelet Volume 11.3 fL (9.4-12.4); Platelet Count 388 K/uL (130-400); RDW Coefficient of Variation 15.2 % (11.5-14.5); RDW Standard Deviation 50.4 fL (36.4-46.3); Red Blood Count 4.13 M/uL (4.70-6.10); White Blood Count 9.13 K/ul (4.8-10.8)
[2023-12-09 07:04] LABS: BUN Creatinine Ratio 21.9 (10-20); Bilirubin,Total 0.3 mg/dl (0.2-1.0); Calcium 8.8 mg/dl (8.6-10.3); Creatinine Clr Calc Pharmacy 113.4 ml/min; Globulin 2.9 gm/dl (2.5-4.0); Phosphorus 3.7 mg/dl (2.5-4.9); Potassium 3.9 mmol/L (3.5-5.1); Total Protein 5.9 gm/dl (6.0-8.3)
[2023-12-09 07:09] LABS: ANTI-Xa, UFH(UnfractionatedHep 0.73 IU/ml (0.3-0.7)
[2023-12-09] MEDS: ATORVASTATIN 40 MG TAB PO SCH (07:41)
[2023-12-09] MEDS: MAGNESIUM CHLORIDE W/CALCIUM 64MG DELAYED REL TAB PO SCH (07:42)
[2023-12-09] MEDS: ASPIRIN 81 MG ECTAB PO SCH (07:43)
[2023-12-09] MEDS: CYANOCOBALAMIN (B-12) 500 MCG TABLET PO SCH (07:44)
[2023-12-09] MEDS: ESCITALOPRAM OXALATE 10 MG TAB PO SCH (07:45)
[2023-12-09] MEDS: FLUTICASONE FUROATE 100MCG 14 PUFFS/INHALER INH SCH (07:46)
[2023-12-09] MEDS: UMECLIDINIUM/VILANTEROL 62.5/25MCG 7 PUFFS/INHALER INH SCH (07:53)
--- NOTE | 2023-12-09 08:22 | Pharmacy Report ---
Pharmacy PK ABX Note - Date of Service December 09, 2023 - Assessment and Plan Assessment 68 year old M receiving vancomycin + caspofungin for treatment of possible septic bursitis. Recent admission in Oct for same and discharged on 6 week course of vanc + caspo based upon cultures (course completed). Returns with significant elbow pain and swelling. ID & ortho consulted. Blood culture pending. Day #2 of antimicrobial therapy. Plan Vancomycin * Loading dose: 2000 mg IV x 1 * Maintenance dose: 1250 mg IV every 12 hours * Regimen is predicted to achieve target AUC/KIKE of 400-600 mg/L.hr * Will obtain a level after ~ 48h if therapy continued. Pharmacy will continue to follow and will adjust dose/frequency as necessary. Thank you. Pharmacy has transitioned to AUC monitoring for vancomycin. AUC/KIKE is the preferred PK/PD target and is associated with decreased risk of nephrotoxicity compared to traditional trough targets.
[2023-12-09] MEDS ORDERED: NON-FORMULARY MEDICATION (Fluticasone-Umeclidin-Vilanter [Trelegy Ellipta] 100-62.5-25 mcg INH SCH (09:00)
[2023-12-09] MEDS ORDERED: GLUCOSE 10 TAB/TUBE PO PRN (12:10)
[2023-12-09] MEDS ORDERED: GLUCAGON FOR INJ 1 MG VIAL SQ PRN (12:10)
[2023-12-09] MEDS ORDERED: DEXTROSE 50% 50 ML SYRINGE IV PRN (12:10)
[2023-12-09] MEDS ORDERED: CARBOHYDRATES FOR HYPOGLYCEMIA PO PRN (12:10)
[2023-12-09] MEDS ORDERED: GLUCOSE 40% GEL 15 GM TUBE PO PRN (12:10)
--- NOTE | 2023-12-09 12:18 | Hospitalist Progress Note ---
Date of Service December 09, 2023 Assessment & Plan (1) Pulmonary embolism: Plan: 68 y/o M with PMHx of significant for hyperlipidemia, hypertension, COPD/pulmonary emphysema, chronic diastolic heart failure [/EF 55-59% -- TTE 09/2023], PVD, TAYLOR on 2L O2 HS, aortic atherosclerosis, GERD with esophagitis, chronic pain syndrome, senile osteoporosis, descending aortic thrombus, PE, tobacco use disorder and adjustment disorder with depressed mood/CARLOS who presented to the ED for evaluation secondary to generalized weakness and SOB/dyspnea. He was found to have a small segmental/subsegmental pulmonary embolus in the right lower lobe. He is being managed for the following: Acute Pulmonary Embolus: Chest CTA --> A small segmental/subsegmental pulmonary embolus in the right lower lobe. Patient with previous history of DVT/PE and aortic thrombus. BLE venous doppler negative for DVT. Continue with IV heparin drip. My thoughts of oral anticoagulation discussed [warfarin, Eliquis, Xarelto] patient would like to know how much it is going to cost him for Eliquis for now. Eliquis sent to pharmacy for cost. CTA chest with no right heart strain, troponin WNL at presentation. Patient with no chest pain. BLE venous Doppler negative for DVT. Diarrhea: Stool PCR pending. No diarrhea in the hospital per patient. Hypomagnesemia: Magnesium repleted parenterally in the ED, continue home oral magnesium supplementation. Magnesium WNL, follow labs in AM. R Elbow Olecranon Septic Bursitis: He recently was admitted here last month (10/27/2023-11/02/2023) for right elbow olecranon septic bursitis. He was discharged at that time on a 6-week course of IV caspofungin and vancomycin. He reports that he finished both of these IV medication courses in their entirety; however, he is still experiencing a significant amount of right elbow pain in addition to some associated swelling/Erythema/warmth as well. Right elbow CT with soft tissue swelling however no evidence of fluid collection or underlying osteomyelitis. Continue with IV caspofungin and vancomycin. Both ortho and ID consulted. appreciate Ortho recommendation, await ID recommendation. Follow-up with Ortho on discharge. Blood culture pending. Other Chronic Medical Conditions: HTN, COPD, HLD, GERD, depression/CARLOS --> Can continue home medications for these specific conditions. PRN nebs, continue 2L via NC HS for TAYLOR. DVT Prophylaxis: On IV heparin as per above, continue. Code Status: FULL CODE PCP: Ajit Moreno MD Disposition:PCU/Telemetry Admission and Anticipated Discharge Date Admission Date: December 08, 2023 Subjective Patient was seen and examined at bedside. Patient was lying in bed, on 2 L nasal cannula oxygen, not in any acute distress. Patient reports eating okay, moving bowels okay. Patient reports right elbow pain, has some mild erythema and warmth to it on exam. Physical Exam Physical Exam: oriented x 3, not in distress, speaks in sentences with no effort nor accessory muscle use normal rate, regular rhythm, no murmurs clear breath sounds bilaterally, no wheezing non distended, soft, nontender R elbow: surgical scar healing well, moderate edema, mild erythema and warmth, (+) significant tenderness (+) mild lower extremity edema: L>R, No erythema, warmth no neuro deficits Results & Data Results & Data Vital Signs (Past 12 Hours) Vital Signs Temp Pulse Pulse Resp BP Pulse Ox O2 Del Method 12/09/23 11:17 36.6 C 101 H 20 110/68 96 Nasal Cannula 12/09/23 08:00 36.5 C 86 18 107/63 95 Nasal Cannula 12/09/23 07:30 75 12/09/23 07:10 71 18 97 Nasal Cannula 12/09/23 03:21 36.3 C L 82 20 113/73 92 Nasal Cannula 12/09/23 01:43 76 18 96 Nasal Cannula O2 Flow Rate 12/09/23 11:17 2 12/09/23 08:00 2 12/09/23 07:30 12/09/23 07:10 2 12/09/23 03:21 2 12/09/23 01:43 2 (1) Pulmonary embolism Acute cor pulmonale presence: without acute cor pulmonale Chronicity: acute Pulmonary embolism type: unspecified Qualified Code(s): I26.99 - Other pulmonary embolism without acute cor pulmonale
--- NOTE | 2023-12-09 14:51 | Infectious Disease Consult ---
Date of Service December 09, 2023 Telehealth Information I performed this visit using a real-time telehealth connection between my location and the patients location ([facility]). After connecting through interactive tele-video, patient was identified by name and date of and/or wristband check.Patient (or authorized healthcare customer relations representative) was informed that this was a telemedicine visit and it was being conducted confidentially over secure lines. My office door was closed and no one else was present in the room with me.Patient (or authorized healthcare customer relations representative) provided consent to proceed with the visit, expressed an understanding of privacy and security of the telemedicine visit, and gave permission to have a hospital customer relations representative in the room in order to assist with the visit and to conduct portions of the visit, as needed. I informed the patient (or authorized healthcare customer relations representative) that I reviewed their record and presented the opportunity for them to ask any questions regarding the visit today. The patient agreed to participate. Assessment & Plan (1) Olecranon bursitis, right elbow: (2) Pulmonary embolism: (3) Acute on chronic hypoxic respiratory failure: Plan 1. It is unusual for septic bursitis to fail to respond to a 6-week course of appropriate IV antibiotics. Therefore, I would recommend obtaining an MRI of the right elbow to investigate for osteomyelitis. 2. Meanwhile, can continue IV caspofungin based on the intraoperative cultures from late October 2023. Given that coagulase-negative staph had an KIKE of 2 to vancomycin, I would recommend switching to IV daptomycin at this point. 3. Thank you for consulting infectious disease. We will continue to follow. History of Present Illness History of Present Illness Mr. Franks is a 68-year-old man with medical history of emphysema with chronic hypoxic respiratory failure on 2 L oxygen at night, HTN, chronic diastolic heart failure, peripheral vascular disease, history of PE, descending aortic thrombus, major depressive disorder, adjustment disorder and obstructive sleep apnea who was admitted to [facility] on 12/08/2023 because of acute progressive shortness of breath. CTA of the chest performed on presentation showed segmental/subsegmental pulmonary embolus in the right lower lobe. He was recently admitted to the hospital in late October 2023 because of right elbow olecranon septic bursitis which was decorticated and was found to not involve the joint. Intraoperative cultures grew coagulase-negative staph and yeast. Therefore, we decided to send out for caspofungin and vancomycin for a total duration of 6 weeks. During the current admission, he was noticed to have persistent pain and swelling over his right elbow with a repeat CT scan of the right elbow showing soft tissue swelling without any drainable collections and no evidence of fracture or underlying osteomyelitis. On presentation, all of his vitals were within normal limits. ID team was consulted again today given his persistent pain and to help guide antibiotic treatment. Allergies Allergy/AdvReac Type Severity Reaction Status Date / Time No Known Allergies Allergy Verified 12/08/23 15:18 Home Medications Medication Instructions Recorded Confirmed Type pregabalin 100 mg capsule (Lyrica) 100 mg PO BID 10/16/17 12/08/23 History ondansetron 8 mg disintegrating 8 mg PO Q8H PRN Nausea 04/07/22 12/08/23 History tablet clobetasol 0.05 % topical cream 1 applic topical BID PRN Rash 12/29/22 12/08/23 History levalbuterol HCl 1.25 mg/3 mL 1.25 mg inhalation Q4H PRN Wheezing 12/29/22 12/08/23 History solution for nebulization triamcinolone acetonide 0.1 % 1 applic topical BID PRN Rash 12/29/22 12/08/23 History topical cream (Triderm) cyanocobalamin (vitamin B-12) 1,000 mcg PO QAM 03/08/23 12/08/23 History 1,000 mcg tablet (Vitamin B-12) aspirin 81 mg tablet,delayed 81 mg PO QAM #30 tabs 03/11/23 12/08/23 Rx release pantoprazole 40 mg tablet,delayed 40 mg PO BID 30 days #60 tabs 04/06/23 12/08/23 Rx release (Protonix) albuterol sulfate 90 mcg/actuation 2 puff inhalation Q4H PRN 04/26/23 12/08/23 Rx aerosol inhaler Shortness Of Breath Or Wheezing #8.5 grams escitalopram oxalate 10 mg tablet 10 mg PO QAM 06/13/23 12/08/23 History (Lexapro) CPAP Machine #1 ea 06/24/23 12/08/23 Rx CPAP Supplies #1 ea 06/24/23 12/08/23 Rx metoprolol tartrate 25 mg tablet 12.5 mg (1/2 x 25 mg) PO BID #30 08/09/23 12/08/23 Rx tabs furosemide 40 mg tablet (Lasix) 40 mg PO QAM Fluid accumulation, 10/10/23 12/08/23 History weight gain loperamide 2 mg tablet (Imodium 4 mg PO TID PRN Diarrhea 10/10/23 12/08/23 History A-D) montelukast 10 mg tablet 10 mg PO HS 10/10/23 12/08/23 History (Singulair) prochlorperazine maleate 5 mg 5 mg PO Q6H PRN NAUSEA/VOMITING 10/10/23 12/08/23 History tablet (Compazine) fluticasone fur. 100 mcg-umeclid 1 inh inhalation DAILY #60 ea 10/11/23 12/08/23 Rx 62.5 mcg-vilant 25 mcg inhalat.powder (Trelegy Ellipta) atorvastatin 80 mg tablet (Lipitor) 80 mg PO QAM 10/19/23 12/08/23 History magnesium chloride 64 mg 64 mg PO QAM 10/19/23 12/08/23 History (magnesium chloride) tablet,delayed release (Mag 64) fluconazole 200 mg tablet 400 mg PO BID 11/20/23 12/08/23 History apixaban 5 mg tablet (Eliquis) 5 mg PO UD #74 tabs 12/09/23 Rx Patient History Medical History Hyperglycemia Ha1c 6.2% 10/10/23 labs; no mention of DMII by PCP Cigarette smoker Obesity 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 Saw vascular: started on [id number] and Eliquis. Eliquis was then D/C by pulmonary 04/2023. Pt had normal f/u chest CTA 06/20/23 Irregular cardiac rhythm pt noted to have 25beats of Nonsustained VTach vs PAT day of discharge (08/09/23) [facility]; pt denied sx; started on metoprolol and ordered Zio monitor and Cardio referral Peripheral vascular disease Chronic diastolic heart failure PCP monitoring; ECHO 10/03/23 with nl EF and Gr I DD. 'no changes to medications needed at this time. Continue lasix daily' per PCP Chronic back pain "hx broken back"no back surgery Arthritis GERD (gastroesophageal reflux disease) Hx pulmonary embolism 2017 developed after a bad fall (was on coumadin for 1 year) Cardiac murmur no significant valve disease per 10/03/23 ECHO Hypertension Hyperlipidemia Chronic obstructive pulmonary disease 'group D' per pulm. Pt admitted [facility] for COPD exacerbation 10/08-10/11/23; admitted [facility] for COPD exacerbation (also had COVID at the time): 09/22- 09/25/23; admitted for COPD exacerbation 05/17-05/21/23 Asthma required rescue inhaler "just the other day" Chronic respiratory failure On oxygen at night in the past - but no longer needs per patient . Per 10/18/23 PCP note, 'pt stable from a respiratory standpoint' Hx of migraines Sleep apnea 2L O2 HS (no other device) History of COVID-19 Admitted [facility] 09/22-09/25/23 COVID+ and COPD exacerbation; pt states no longer having COVID sx Pneumothorax Hx- complication from pain injection- resolved Histoplasmosis 2002- treated Surgical History H/O hernia repair History of esophagogastroduodenoscopy (EGD) Hx of colonoscopy History of open reduction and internal fixation (ORIF) procedure right shoulder History of total replacement of left shoulder joint History of sinus surgery History of placement of chest tube History of hand surgery right/left Left femoral shaft fracture Dutch placed>hardware intact H/O total hip arthroplasty left H/O elbow surgery R radial head ORIF prior to 2009; R elbow I&D 08/05/23: GA: MAC#4, ETT#7.5HiLo, Gr View 1 H/O exploratory thoracotomy "Left thoracotomy wedge biopsy of left upper lobe with excision of lesion or nodule & frozen section 2002" H/O hernia repair [facility] incarcerated supraumbilical hernia repair open no mesh 02/17/01 Family History Father Heart disease Hypertension Brother Heart disease Cancer Hypertension Stroke Mother Cancer Other Leukemia No family history of adverse response to anesthesia No family history of bleeding disorder Non-Hodgkin lymphoma Denies family history of Hearing loss Asthma Social History Smoking Status: Current every day smoker Tobacco Type: Cigarettes Age Started Using Tobacco: 11; packs per day: 1; Cigarettes Per Day: 10 cig daily>advised; Second Hand Exposure: No; Do You Dip or Chew Tobacco: No; Hx Alcohol Use: No Hx Substance Use: No Preferred Language: Vietnamese Communication Ability: Effective Senior Private Client Advisor Required: No Beliefs That Will Affect Care: None marital status: Current Living Situation: Spouse current occupational status: unemployed Feels Safe at Home: Yes Assistive Devices: Oxygen - at Night Review of Systems Neg except for what was mentioned in H&P. Physical Exam Couldn't be performed as the encounter was conducted via telemed. Results & Data Vital Signs (Past 12 Hours) Vital Signs Temp Pulse Pulse Resp BP Pulse Ox O2 Del Method 12/09/23 13:40 75 18 94 Room Air 12/09/23 11:17 36.6 C 101 H 20 110/68 96 Nasal Cannula 12/09/23 11:14 Nasal Cannula 12/09/23 08:00 36.5 C 86 18 107/63 95 Nasal Cannula 12/09/23 07:30 75 12/09/23 07:10 71 18 97 Nasal Cannula 12/09/23 03:21 36.3 C L 82 20 113/73 92 Nasal Cannula O2 Flow Rate 12/09/23 13:40 12/09/23 11:17 2 12/09/23 11:14 2 12/09/23 08:00 2 12/09/23 07:30 12/09/23 07:10 2 12/09/23 03:21 2 Laboratory Results Microbiology: 12/07: 1 set of blood culture negative to date Diagnostic Findings CT scan of the right elbow on 12/07: Soft tissue swelling is seen. No definite drainable fluid collection is seen although evaluation is limited by noncontrast technique. No evidence of fracture or underlying osteomyelitis. (2) Pulmonary embolism Acute cor pulmonale presence: without acute cor pulmonale Chronicity: acute Pulmonary embolism type: unspecified Qualified Code(s): I26.99 - Other pulmonary embolism without acute cor pulmonale
[2023-12-09 14:57] LABS: ANTI-Xa, UFH(UnfractionatedHep 0.67 IU/ml (0.3-0.7)
--- NOTE | 2023-12-09 15:00 | Orthopedic Progress Note ---
Date of Service December 09, 2023 Assessment & Plan (1) Right elbow pain: -I did a progress check on the patient today as Dr. Willis did perform a right elbow I&D as well as radial head screw removal in October 2023. He was admitted to the hospital due to concerns for a PE, however also does have persistent right elbow pain. On 12/08/2023, his white count was elevated. They did start him on the same antibiotic and antifungal that he had 6 weeks ago when he was in the hospital. He states that his elbow pain was fairly significant a couple of weeks ago, however it has since calm down. He is able to perform range of motion with minimal discomfort until he reaches terminal extension. I do see that his white count has also improved as of today on 12/09/2023. Upon my physical examination, he has good range of motion and I do not feel a joint effusion. I do note some pitting edema in his elbow. The incision is healed well. There is some edema around the incision site, however it is minimally tender with superficial palpation. At this time, I would refrain from aspirating the elbow. CT does not show a significant fluid collection either. I was told by nursing staff that there is a right elbow MRI ordered to rule out osteomyelitis. We can reevaluate once the MRI comes back. Casper Lerma is a 68-year-old male who reported to the emergency department on 12/08/2023 due to chest pain, shortness of breath. He was admitted to the hospital as he was found to have a PE. He is currently on a heparin drip with discussion of changing him to Eliquis. He is known to orthopedics at [facility], specifically Dr. Willis, as he has been being treated for a septic right elbow. Please see specifics on the operation on 10/27/2023. He was sent home with a PICC line after his hospitalization. He is being followed by infectious disease. He was placed on 6 weeks of IV vancomycin at home. He states that his PICC line in his left arm is still in place. He said that infectious disease wanted to stay in place even after his IV treatment was done for a little while. He states that his right elbow has been sore and has gone through some episodes of swelling over the last few weeks as well. He states that at 1 point, it was painful to supinate and pronate the forearm. At today's visit, he states that he is not in as much pain as he was recently with his right elbow. He states that he is able to use the arm but does have pain with terminal extension at this point. No other questions or concerns today. Operation Date: 10/27/23 10:05 Actual Procedures p Right Elbow Arthrotomy, bursectomy, irrigation and Debridement with Radial Head Screw Removal(Right) - Bradley Willis MD Review of Systems All systems reviewed & are unremarkable except as noted in HPI & below. Physical Exam General: Alert and oriented. In no acute distress at my progress check. In regards to his right elbow, incision/surgical wound is intact with good healing. No open wounds or drainage noted. There is some erythema around the surgical wound, however it is minimally tender to superficial touch. I do not feel a specific effusion or fluid pocket, however he does have pitting edema in the right elbow. We did perform range of motion. He is able to get to full flexion without pain but when he does get to his terminal extension, he does have pain in the elbow. Sensation intact. Distal pulses palpated. Cap refill less than 3 seconds. Results & Data Results & Data Laboratory Results Laboratory Results - last 48 hr 12/08/23 12/08/23 12/08/23 12:15 12:50 12:51 WBC 13.21 H RBC 4.57 L Hgb 13.9 L POC Hgb 13.9 L Hct 41.5 L POC Hct 41 L MCV 90.8 MCH 30.4 MCHC 33.5 RDW Std Deviation 50.5 H RDW Coeff of Jaz 15.2 H Plt Count 448 H MPV 11.0 Immature Gran % (Auto) 0.5 Neut % (Auto) 71.8 Lymph % (Auto) 16.0 Sierra % (Auto) 8.8 Eos % (Auto) 2.5 Baso % (Auto) 0.4 Neut # (Auto) 9.49 H Lymph # (Auto) 2.11 Sierra # (Auto) 1.16 H Eos # (Auto) 0.33 Baso # (Auto) 0.05 Immature Gran # (Auto) 0.07 PT 10.8 INR 1.0 APTT 26 PTT Ratio 1.0 D-Dimer 4140 H* Heparin Anti-Xa, Unfract POC Sodium 138 Sodium 139 POC Potassium 4.0 Potassium 4.1 POC Chloride 103 Chloride 104 Carbon Dioxide 27 POC Total CO2 23 L Anion Gap 8 POC Anion Gap 18.0 POC BUN 19 H BUN 20 Creatinine 0.73 POC Creatinine 0.7 Est Cr Clr Drug Dosing 101.5 eGFR 97.88 BUN/Creatinine Ratio 27.4 H Glucose 94 POC Glucose POC Glucose (other) 95 Calcium 9.5 POC Ioniz Calcium Madalyn 1.24 Phosphorus Magnesium 1.5 L Total Bilirubin 0.5 AST 75 H ALT 94 H Alkaline Phosphatase 222 H Total Creatine Kinase Troponin I High Sens 8.1 B-Natriuretic Peptide 41 Total Protein 6.6 Albumin 3.3 L Globulin 3.3 Albumin/Globulin Ratio 1.0 Lipase 35 Procalcitonin 0.04 Adenovirus (PCR) Not Detected B. pertussis DNA (PCR) Not Detected B.parapertussis DNA PCR Not Detected C. pneumoniae DNA (PCR) Not Detected Coronavirus OC43 (PCR) Not Detected Coronavirus HKU1 (PCR) Not Detected Coronavirus 229E (PCR) Not Detected SARS-CoV-2 (PCR) Not Detected Coronavirus NL63 (PCR) Not Detected Human Metapneumovir PCR Not Detected Influenza Type A (PCR) Not Detected Influenza Type B (PCR) Not Detected M. pneumoniae (PCR) Not Detected Parainfluenza 1 (PCR) Not Detected Parainfluenza 2 (PCR) Not Detected Parainfluenza 3 (PCR) Not Detected Parainfluenza 4 (PCR) Not Detected RSV (PCR) Not Detected Entero/Rhino (PCR) Not Detected 12/08/23 12/08/23 12/09/23 20:16 22:27 05:30 WBC 9.13 RBC 4.13 L Hgb 12.7 L POC Hgb Hct 37.0 L POC Hct MCV 89.6 MCH 30.8 MCHC 34.3 RDW Std Deviation 50.4 H RDW Coeff of Jaz 15.2 H Plt Count 388 MPV 11.3 Immature Gran % (Auto) Neut % (Auto) Lymph % (Auto) Sierra % (Auto) Eos % (Auto) Baso % (Auto) Neut # (Auto) Lymph # (Auto) Sierra # (Auto) Eos # (Auto) Baso # (Auto) Immature Gran # (Auto) PT INR APTT PTT Ratio D-Dimer Heparin Anti-Xa, Unfract 0.74 H* 0.73 H* POC Sodium Sodium 138 POC Potassium Potassium 3.9 POC Chloride Chloride 106 Carbon Dioxide 26 POC Total CO2 Anion Gap 6 POC Anion Gap POC BUN BUN 14 Creatinine 0.64 POC Creatinine Est Cr Clr Drug Dosing 113.4 eGFR 101.84 BUN/Creatinine Ratio 21.9 H Glucose 126 H POC Glucose 217 H POC Glucose (other) Calcium 8.8 POC Ioniz Calcium Madalyn Phosphorus 3.7 Magnesium 2.0 Total Bilirubin 0.3 AST 50 H ALT 71 H Alkaline Phosphatase 165 H Total Creatine Kinase 11 L Troponin I High Sens B-Natriuretic Peptide Total Protein 5.9 L Albumin 3.0 L Globulin 2.9 Albumin/Globulin Ratio 1.0 Lipase Procalcitonin Adenovirus (PCR) B. pertussis DNA (PCR) B.parapertussis DNA PCR C. pneumoniae DNA (PCR) Coronavirus OC43 (PCR) Coronavirus HKU1 (PCR) Coronavirus 229E (PCR) SARS-CoV-2 (PCR) Coronavirus NL63 (PCR) Human Metapneumovir PCR Influenza Type A (PCR) Influenza Type B (PCR) M. pneumoniae (PCR) Parainfluenza 1 (PCR) Parainfluenza 2 (PCR) Parainfluenza 3 (PCR) Parainfluenza 4 (PCR) RSV (PCR) Entero/Rhino (PCR) 12/09/23 12/09/23 12/09/23 07:21 11:13 14:22 WBC RBC Hgb POC Hgb Hct POC Hct MCV MCH MCHC RDW Std Deviation RDW Coeff of Jaz Plt Count MPV Immature Gran % (Auto) Neut % (Auto) Lymph % (Auto) Sierra % (Auto) Eos % (Auto) Baso % (Auto) Neut # (Auto) Lymph # (Auto) Sierra # (Auto) Eos # (Auto) Baso # (Auto) Immature Gran # (Auto) PT INR APTT PTT Ratio D-Dimer Heparin Anti-Xa, Unfract 0.67 POC Sodium Sodium POC Potassium Potassium POC Chloride Chloride Carbon Dioxide POC Total CO2 Anion Gap POC Anion Gap POC BUN BUN Creatinine POC Creatinine Est Cr Clr Drug Dosing eGFR BUN/Creatinine Ratio Glucose POC Glucose 155 H 226 H POC Glucose (other) Calcium POC Ioniz Calcium Madalyn Phosphorus Magnesium Total Bilirubin AST ALT Alkaline Phosphatase Total Creatine Kinase Troponin I High Sens B-Natriuretic Peptide Total Protein Albumin Globulin Albumin/Globulin Ratio Lipase Procalcitonin Adenovirus (PCR) B. pertussis DNA (PCR) B.parapertussis DNA PCR C. pneumoniae DNA (PCR) Coronavirus OC43 (PCR) Coronavirus HKU1 (PCR) Coronavirus 229E (PCR) SARS-CoV-2 (PCR) Coronavirus NL63 (PCR) Human Metapneumovir PCR Influenza Type A (PCR) Influenza Type B (PCR) M. pneumoniae (PCR) Parainfluenza 1 (PCR) Parainfluenza 2 (PCR) Parainfluenza 3 (PCR) Parainfluenza 4 (PCR) RSV (PCR) Entero/Rhino (PCR) Diagnostic Findings CT of the right elbow on 12/08/2023: IMPRESSION: Soft tissue swelling is seen. No definite drainable fluid collection is seen although evaluation is limited by noncontrast technique. No evidence of fracture or underlying osteomyelitis. PG Care Time/CCT Total # of Minutes Spent Total Time Spent with Patient: Total time spent is greater than 50% in coordination of care (as documented) at patient's floor/unit and/or counseling patient: Coding Level of Care Code 73043 SUB INP/OBS CARE 3/50MIN Diagnoses Right elbow pain M25.521
[2023-12-09] MEDS: DAPTOmycin 450 MG in SYRINGE 0 ML IV SCH (15:24)
[2023-12-09] MEDS: LIDOCAINE 2%/EPINEPHRINE 1:200,000 20 ML PF INFIL ONE (15:24)
[2023-12-09] MEDS: ETHYL CHLORIDE AER PER SPRAY 100 ML CAN EXT ONE (15:24)
[2023-12-09] MEDS: INSULIN ASPART PER UNIT CHARGE SC SCH (17:35)
[2023-12-09] MEDS: LORazepam 0.5 MG TAB PO PRN (17:35)
[2023-12-09] MEDS: GADOBUTROL 65ML VIAL IV ONE (18:34)
[2023-12-09] MEDS: CASPOFUNGIN 50 MG in SODIUM CHLORIDE 0.9% 250 ML IV SCH (20:15)
[2023-12-10 07:14] LABS: Hematocrit (blood only) 35.7 % (42.0-52.0); Mean Corpuscular Hemoglobin 30.9 pg (25.0-34.0); Mean Corpuscular Hgb Conc 33.6 g/dL (32.0-36.0); Platelet Count 391 K/uL (130-400); RDW Coefficient of Variation 15.4 % (11.5-14.5); RDW Standard Deviation 51.4 fL (36.4-46.3); Red Blood Count 3.88 M/uL (4.70-6.10)
[2023-12-10 07:21] LABS: BUN Creatinine Ratio 23.3 (10-20); Calcium 8.7 mg/dl (8.6-10.3); Magnesium 1.9 mg/dl (1.7-2.4); Phosphorus 3.9 mg/dl (2.5-4.9); Potassium 4.2 mmol/L (3.5-5.1)
--- NOTE | 2023-12-10 14:15 | Hospitalist Progress Note ---
Date of Service December 10, 2023 Assessment & Plan (1) Pulmonary embolism: Plan: 68 y/o M with PMHx of significant for hyperlipidemia, hypertension, COPD/pulmonary emphysema, chronic diastolic heart failure [/EF 55-59% -- TTE 09/2023], PVD, TAYLOR on 2L O2 HS, aortic atherosclerosis, GERD with esophagitis, chronic pain syndrome, senile osteoporosis, descending aortic thrombus, PE, tobacco use disorder and adjustment disorder with depressed mood/CARLOS who presented to the ED for evaluation secondary to generalized weakness and SOB/dyspnea. He was found to have a small segmental/subsegmental pulmonary embolus in the right lower lobe. He is being managed for the following: Acute Pulmonary Embolus: Chest CTA --> A small segmental/subsegmental pulmonary embolus in the right lower lobe. Patient with previous history of DVT/PE and aortic thrombus. BLE venous doppler negative for DVT. CTA chest with no right heart strain, troponin WNL at presentation. Patient with no chest pain. BLE venous Doppler negative for DVT. Continue with IV heparin drip. Eliquis cost of 4.60/month, patient agreeable. Will transition to Eliquis from tomorrow a.m. Diarrhea: Stool PCR Uncollected. No diarrhea in the hospital per patient. Hypomagnesemia: Magnesium repleted parenterally in the ED, continue home oral magnesium supplementation. Magnesium WNL, follow labs in AM. R Elbow Olecranon Septic Bursitis: He recently was admitted here last month (10/27/2023-11/02/2023) for right elbow olecranon septic bursitis. He was discharged at that time on a 6-week course of IV caspofungin and vancomycin. He reports that he finished both of these IV medication courses in their entirety; however, he is still experiencing a significant amount of right elbow pain in addition to some associated swelling/Erythema/warmth as well. Right elbow CT with soft tissue swelling however no evidence of fluid collection or underlying osteomyelitis. Ortho evaluated, conservative management. ID evaluated, recommends caspofungin and daptomycin. Daptomycin initiated 12/18, CPK level WNL, statin on hold, CPK weekly while on daptomycin. MRI right elbow done, read pending. Follow pending blood culture, follow-up with ID once MRI result out. Other Chronic Medical Conditions: HTN, COPD, HLD, GERD, depression/CARLOS --> Can continue home medications for these specific conditions. PRN nebs, continue 2L via [place] HS for TAYLOR. DVT Prophylaxis: On IV heparin as per above, continue. Code Status: FULL CODE PCP: Ajit Moreno MD Disposition:PCU/Telemetry Admission and Anticipated Discharge Date Admission Date: December 08, 2023 Subjective Patient was seen and examined at bedside. Patient was lying in bed, on RA, not in any acute distress. Patient reports eating okay, moving bowels okay. Patient reports right elbow pain, Not much improvement today. Patient reports bilateral base of neck pain for about a month time, denies any trauma or fall. Will get diclofenac gel, will get CT scan of the neck. Physical Exam Physical Exam: oriented x 3, not in distress, speaks in sentences with no effort nor accessory muscle use normal rate, regular rhythm, no murmurs clear breath sounds bilaterally, no wheezing non distended, soft, nontender R elbow: surgical scar healing well, moderate edema, mild erythema and warmth, (+) significant tenderness -ve lower extremity edema, No erythema/ warmth no neuro deficits Results & Data Results & Data Vital Signs (Past 12 Hours) Vital Signs Temp Pulse Pulse Resp BP Pulse Ox O2 Del Method 12/10/23 13:44 57 L 18 90 Room Air 12/10/23 12:19 58 L 12/10/23 11:58 36.7 C 79 16 118/58 L 95 Room Air 12/10/23 08:00 Room Air 12/10/23 07:30 36.8 C 74 18 120/86 97 Room Air 12/10/23 07:02 63 18 90 Room Air 12/10/23 03:03 36.8 C 69 19 127/71 96 Nasal Cannula O2 Flow Rate 12/10/23 13:44 12/10/23 12:19 12/10/23 11:58 12/10/23 08:00 12/10/23 07:30 2 12/10/23 07:02 12/10/23 03:03 2 (1) Pulmonary embolism Acute cor pulmonale presence: without acute cor pulmonale Chronicity: acute Pulmonary embolism type: unspecified Qualified Code(s): I26.99 - Other pulmonary embolism without acute cor pulmonale
[2023-12-10] MEDS: DICLOFENAC SOD 1% GEL 100 GM TUBE EXT SCH (15:33)
--- NOTE | 2023-12-10 15:53 | CT Scan Report ---
EXAM: CT Cervical Spine Without Intravenous Contrast INDICATION: Bilateral neck pain. TECHNIQUE: Axial computed tomography images of the cervical spine without intravenous contrast. Sagittal and coronal reformatted images were created and reviewed. This CT exam was performed using one or more of the following dose reduction techniques: automated exposure control, adjustment of the mA and/or kV according to patient size, and/or use of iterative reconstruction technique. COMPARISON: No relevant prior studies available. FINDINGS: Limitations: None. Vertebrae: The bones are demineralized diffusely. The spine is tilted to the right possibly related to spasm or position. There is mild spondylosis developing anterior bridging at C5-C6 and C6-C7. There is diffuse mild facet hypertrophy worse on the right. No fracture or subluxation. There is moderate ossification. Discs/spinal canal/neural foramina: Diffuse mild to space narrowing. No significant foraminal or canal stenosis identified. Soft tissues: Moderate ligamentous ossification about the dens. Vasculature: Carotid atherosclerosis noted. Lung apices: No significant abnormality noted. IMPRESSION: Osteoporosis and diffuse mild facet arthrosis and spondylosis. No fracture or stenosis. ACT 112: Negative or not required by law. Electronically signed by Neela Pinon 12-10-2023 3:52 PM
[2023-12-10 16:43] LABS: ANTI-Xa, UFH(UnfractionatedHep 0.55 IU/ml (0.3-0.7)
[2023-12-10] MEDS: MELATONIN 3 MG TAB PO PRN (22:14)
[2023-12-11 06:15] LABS: Hematocrit (blood only) 34.2 % (42.0-52.0); Hemoglobin 11.8 g/dl (14.0-18.0); Mean Corpuscular Hemoglobin 30.6 pg (25.0-34.0); Mean Corpuscular Hgb Conc 34.5 g/dL (32.0-36.0); Mean Corpuscular Volume 88.6 fL (80.0-100.0); Mean Platelet Volume 11.2 fL (9.4-12.4); Platelet Count 387 K/uL (130-400); RDW Coefficient of Variation 15.3 % (11.5-14.5); RDW Standard Deviation 50.7 fL (36.4-46.3); Red Blood Count 3.86 M/uL (4.70-6.10)
[2023-12-11 06:27] LABS: BUN Creatinine Ratio 21.7 (10-20); Creatinine Clr Calc Pharmacy 87.4 ml/min; Magnesium 1.7 mg/dl (1.7-2.4); Phosphorus 5.1 mg/dl (2.5-4.9); Potassium 4.2 mmol/L (3.5-5.1)
[2023-12-11] MEDS ORDERED: ALBUT/IPRATROP 3MG/0.5MG NEB 3 ML VIAL NEB PRN (10:47)
--- NOTE | 2023-12-11 12:20 | Hospitalist Progress Note ---
Date of Service December 11, 2023 Assessment & Plan (1) Pulmonary embolism: Plan: 68 y/o M with PMHx of significant for hyperlipidemia, hypertension, COPD/pulmonary emphysema, chronic diastolic heart failure [/EF 55-59% -- TTE 09/2023], PVD, TAYLOR on 2L O2 HS, aortic atherosclerosis, GERD with esophagitis, chronic pain syndrome, senile osteoporosis, descending aortic thrombus, PE, tobacco use disorder and adjustment disorder with depressed mood/CARLOS who presented to the ED for evaluation secondary to generalized weakness and SOB/dyspnea. He was found to have a small segmental/subsegmental pulmonary embolus in the right lower lobe. He is being managed for the following: Acute Pulmonary Embolus: Chest CTA --> A small segmental/subsegmental pulmonary embolus in the right lower lobe. Patient with previous history of DVT/PE and aortic thrombus. BLE venous doppler negative for DVT. CTA chest with no right heart strain, troponin WNL at presentation. Patient with no chest pain. BLE venous Doppler negative for DVT. Continue with IV heparin drip. Eliquis cost of 4.60/month, patient agreeable. Will transition to [employer] once mri results are out. Diarrhea: Stool PCR Uncollected. No diarrhea in the hospital per patient. Hypomagnesemia: Magnesium repleted parenterally in the ED, continue home oral magnesium supplementation. Magnesium WNL, follow labs in AM. R Elbow Olecranon Septic Bursitis: He recently was admitted here last month (10/27/2023-11/02/2023) for right elbow olecranon septic bursitis. He was discharged at that time on a 6-week course of IV caspofungin and vancomycin. He reports that he finished both of these IV medication courses in their entirety; however, he is still experiencing a significant amount of right elbow pain in addition to some associated swelling/Erythema/warmth as well. Right elbow CT with soft tissue swelling however no evidence of fluid collection or underlying osteomyelitis. Ortho evaluated, conservative management. ID evaluated, recommends caspofungin and daptomycin. Daptomycin initiated 12/18, CPK level WNL, statin on hold, CPK weekly while on daptomycin. MRI right elbow done, read pending. Follow pending blood culture, follow-up with ID once MRI result out. Neck pain: back and base of neck pain for about a month, worsening, no numbness or tingling in arms. pt states getting injection in the neck in past. CT neck w/ no acute findings. no relief w/ diclofenac gel and oxycodone. will consult pain mx. Other Chronic Medical Conditions: HTN, COPD, HLD, GERD, depression/CARLOS --> Can continue home medications for these specific conditions. PRN nebs, continue 2L via [place] HS for TAYLOR. DVT Prophylaxis: On IV heparin as per above, continue. Code Status: FULL CODE PCP: Ajit Moreno MD Disposition:PCU/Telemetry Admission and Anticipated Discharge Date Admission Date: December 08, 2023 Subjective Patient was seen and examined at bedside. Patient was lying in bed, on RA, not in any acute distress. Patient reports eating okay, moving bowels okay. Patient reports right elbow pain, little improvement today. Patient reports bilateral base of neck pain for about a month time, denies any trauma or fall. no much relief w/ diclofenac gel, CT scan of the neck non revealing. pt states getting injection in the past, will consult pain management. Physical Exam Physical Exam: oriented x 3, not in distress, speaks in sentences with no effort nor accessory muscle use normal rate, regular rhythm, no murmurs clear breath sounds bilaterally, no wheezing non distended, soft, nontender R elbow: surgical scar healing well, moderate edema, mild erythema and warmth, (+) significant tenderness -ve lower extremity edema, No erythema/ warmth no neuro deficits Results & Data Results & Data Vital Signs (Past 12 Hours) Vital Signs Temp Pulse Resp BP Pulse Ox O2 Del Method O2 Flow Rate 12/11/23 11:05 36.3 C L 64 18 115/67 95 Nasal Cannula 2 12/11/23 08:00 Nasal Cannula 2 12/11/23 07:30 36.6 C 66 16 112/66 95 Nasal Cannula 2 12/11/23 07:06 67 18 96 Nasal Cannula 2 12/11/23 03:02 36.5 C 64 18 98/73 L 97 Nasal Cannula 12/11/23 01:31 EDT 60 18 94 Nasal Cannula 2 (1) Pulmonary embolism Acute cor pulmonale presence: without acute cor pulmonale Chronicity: acute Pulmonary embolism type: unspecified Qualified Code(s): I26.99 - Other pulmonary embolism without acute cor pulmonale
--- NOTE | 2023-12-11 20:16 | Magnetic Resonance Report ---
EXAM: MR elbow RT wo/w con CLINICAL HISTORY: 9CC GADAVIST INJ. LEFT IV AT 1840 HRS. BY MAD GFR 101.84 PREV. SURG OF RIGHT ELBOW WITH RECENT I D 08/05/23 R/O OSTEOMYELITIS PROP SCANS FOR MOTION /PT. WAS MEDICATED FOR CLAUSTROPHOBIA ARTIFACT FROM IV IN RIGHT ELBOW-DISCONECTED FOR MRI EXAM BEST SCANS AT THIS TIME TECHNIQUE: Multiplanar multisequence MR imaging of the rigth elbow was acquired with and without contrast. Images were referred for interpretation. 9CC Gadavist given. COMPARISON: Xray dated 10/10/2020. FINDINGS: Bones: Redemonstration of the radial head fracture. [place] hole tracks are seen traversing the radial head suggesting internal fixation. Enhancing marrow edema is seen in the radial head, neck and proximal shaft suggesting post-operative edema changes. Multiple soft tissue foci of ferromagnetic artifacts mainly at the lateral aspect of the elbow joint likely post-fixation of the radial collateral ligament and common flexor tendon. Joints: Narrowing of the radiocapital joint space with irregular radial articular surface. Mild joint effusion with enhancing joint capsule. Ligaments: Intact and normal appearance of the ulnar collateral ligament (UCL), radial collateral ligament (RCL), and annular ligament. No evidence of ligamentous injury or abnormalities. Tendons: Normal appearance of the biceps tendon, triceps tendon, and common flexor tendons. thickened common extensor tendon with bands of high signal Muscles: No significant muscle atrophy or gapping tears. Nerves: Normal appearance and course of the median, ulnar, and radial nerves. No evidence of nerve compression or abnormal signal changes. Soft Tissues: No abnormal masses, fluid collections, or signs of inflammation. IMPRESSION: 1. Old radial head fracture with post operative changes as described. 2. Soft tissue foci of ferromagnetic artifacts mainly at the lateral aspect of the elbow joint likely post-fixation of the radial collateral ligament and common flexor tendon with ill-defined outline, for follow-up. 3. Marrow edema of the proximal radius. 4. Mild elbow joint effusion with enhancing capsule and periarticular soft tissue edema, suspecting post-operative/inflammatory changes. 5. Common extensor tendinopathy. Electronically signed by Iliana Garcia 12-11-2023 8:16 PM
[2023-12-12 06:42] LABS: BUN Creatinine Ratio 21.8 (10-20); Calcium 9.3 mg/dl (8.6-10.3); Creatinine Clr Calc Pharmacy 83.1 ml/min; Magnesium 1.6 mg/dl (1.7-2.4)
[2023-12-12 06:50] LABS: ANTI-Xa, UFH(UnfractionatedHep 0.29 IU/ml (0.3-0.7)
[2023-12-12] MEDS: MAGNESIUM SULFATE / D5W 1 GM/100 ML BAG IV SCH (08:33)
--- NOTE | 2023-12-12 08:50 | Pain Management Consultation ---
Date of Consultation December 12, 2023 Assessment & Plan (1) Acute neck pain: (2) Spasm of right trapezius muscle: (3) Neck muscle spasm: (4) Myofascial pain: Plan 1. Educated patient that due to the fact that he is on an antibiotic, we are unable to do any trigger point injections at this time, as steroid injection would be contraindicated. 2. Ordered K-pad heat to be applied to neck/shoulder region. * 20 minutes on, 20 minutes off. 3. Added cyclobenzaprine 5 mg TID PRN for further muscle relaxant purposes. 4. Recommend PT/OT for mobilization. 5. Discussed that we would be glad to see him as an outpatient in the pain management clinic for trigger point injections once he has been off antibiotics for at least 2 weeks. 6. Also discussed that, due to his noted cervical facet arthropathy on imaging studies, he may eventually benefit from bilateral upper cervical facet joint (C3, C4, C5 vs. C4, C5, C6) medial branch blocks and RFA, but this would depend on his response to future rounds of TPI's. 7. Pain management service will sign off at this time. History of Present Illness Reason for Consultation: neck pain, not improving Requesting Physician: Amrik Chacon MD Attending Physician: Amrik Chacon MD History of Present Illness Patient is a 68-year-old male previously known to the pain management service from a consult back in June 2023, which was about 6 months ago. At that time, he was given trigger point injections into the right sided cervical paraspinals and trapezius due to acute right sided neck pain. Those injections did help significantly to relieve his pain. However, he is again having similar pain, which she says started about a month or so ago. He is admitted here to the hospital for other medical reasons, specifically concern over infection to his elbow. Of note, he is on daptomycin antibiotic and caspofungin antifungal. He has somewhat of a recent history of right elbow olecranon septic bursitis managed in July and October of this year completing treatment with IV vancomycin in October. During this admission, the patient was mostly presenting for evaluation to the ED due to shortness of breath, and workup with a CT scan of the chest demonstrated segmental and subsegmental right lower lobe pulmonary embolus, for which he is now on heparin. The patient has been taking acetaminophen, Lyrica, and oxycodone without relief of his neck/C-spine region pain. Most recent CT scan of the cervical spine demonstrates osteoporosis and diffuse facet arthrosis and spondylosis. Patient denies radiation of pain up into his occiput. He denies any radiation of pain into the bilateral shoulders or upper extremities. Case discussed with Dr. Jessie Singh. Allergies Allergy/AdvReac Type Severity Reaction Status Date / Time No Known Allergies Allergy Verified 12/08/23 15:18 Home Medications Medication Instructions Recorded Confirmed Type pregabalin 100 mg capsule (Lyrica) 100 mg PO BID 10/16/17 12/08/23 History ondansetron 8 mg disintegrating 8 mg PO Q8H PRN Nausea 04/07/22 12/08/23 History tablet clobetasol 0.05 % topical cream 1 applic topical BID PRN Rash 12/29/22 12/08/23 History levalbuterol HCl 1.25 mg/3 mL 1.25 mg inhalation Q4H PRN Wheezing 12/29/22 12/08/23 History solution for nebulization triamcinolone acetonide 0.1 % 1 applic topical BID PRN Rash 12/29/22 12/08/23 History topical cream (Triderm) cyanocobalamin (vitamin B-12) 1,000 mcg PO QAM 03/08/23 12/08/23 History 1,000 mcg tablet (Vitamin B-12) aspirin 81 mg tablet,delayed 81 mg PO QAM #30 tabs 03/11/23 12/08/23 Rx release pantoprazole 40 mg tablet,delayed 40 mg PO BID 30 days #60 tabs 04/06/23 12/08/23 Rx release (Protonix) albuterol sulfate 90 mcg/actuation 2 puff inhalation Q4H PRN 04/26/23 12/08/23 Rx aerosol inhaler Shortness Of Breath Or Wheezing #8.5 grams escitalopram oxalate 10 mg tablet 10 mg PO QAM 06/13/23 12/08/23 History (Lexapro) CPAP Machine #1 ea 06/24/23 12/08/23 Rx CPAP Supplies #1 ea 06/24/23 12/08/23 Rx metoprolol tartrate 25 mg tablet 12.5 mg (1/2 x 25 mg) PO BID #30 08/09/23 12/08/23 Rx tabs furosemide 40 mg tablet (Lasix) 40 mg PO QAM Fluid accumulation, 10/10/23 12/08/23 History weight gain loperamide 2 mg tablet (Imodium 4 mg PO TID PRN Diarrhea 10/10/23 12/08/23 History A-D) montelukast 10 mg tablet 10 mg PO HS 10/10/23 12/08/23 History (Singulair) prochlorperazine maleate 5 mg 5 mg PO Q6H PRN NAUSEA/VOMITING 10/10/23 12/08/23 History tablet (Compazine) fluticasone fur. 100 mcg-umeclid 1 inh inhalation DAILY #60 ea 10/11/23 12/08/23 Rx 62.5 mcg-vilant 25 mcg inhalat.powder (Trelegy Ellipta) atorvastatin 80 mg tablet (Lipitor) 80 mg PO QAM 10/19/23 12/08/23 History magnesium chloride 64 mg 64 mg PO QAM 10/19/23 12/08/23 History (magnesium chloride) tablet,delayed release (Mag 64) fluconazole 200 mg tablet 400 mg PO BID 11/20/23 12/08/23 History apixaban 5 mg tablet (Eliquis) 5 mg PO UD #74 tabs 12/09/23 Rx Pain History Pain Location Full Body Front + Back: 2 1. 2. 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 Saw vascular: started on [id number] and Eliquis. Eliquis was then D/C by pulmonary 04/2023. Pt had normal f/u chest CTA 06/20/23 Irregular cardiac rhythm pt noted to have 25beats of Nonsustained VTach vs PAT day of discharge (08/09/23) [facility]; pt denied sx; started on metoprolol and ordered Zio monitor and Cardio referral Peripheral vascular disease Chronic diastolic heart failure PCP monitoring; ECHO 10/03/23 with nl EF and Gr I DD. 'no changes to medications needed at this time. Continue lasix daily' per PCP Chronic back pain "hx broken back"no back surgery Arthritis GERD (gastroesophageal reflux disease) Hx pulmonary embolism 2017 developed after a bad fall (was on coumadin for 1 year) Cardiac murmur no significant valve disease per 10/03/23 ECHO Hypertension Hyperlipidemia Chronic obstructive pulmonary disease 'group D' per pulm. Pt admitted [facility] for COPD exacerbation 10/08-10/11/23; admitted [facility] for COPD exacerbation (also had COVID at the time): 09/22- 09/25/23; admitted for COPD exacerbation 05/17-05/21/23 Asthma required rescue inhaler "just the other day" Chronic respiratory failure On oxygen at night in the past - but no longer needs per patient . Per 10/18/23 PCP note, 'pt stable from a respiratory standpoint' Hx of migraines Sleep apnea 2L O2 HS (no other device) History of COVID-19 Admitted [facility] 09/22-09/25/23 COVID+ and COPD exacerbation; pt states no longer having COVID sx Pneumothorax Hx- complication from pain injection- resolved Histoplasmosis 2003- treated Surgical History H/O hernia repair History of esophagogastroduodenoscopy (EGD) Hx of colonoscopy History of open reduction and internal fixation (ORIF) procedure right shoulder History of total replacement of left shoulder joint History of sinus surgery History of placement of chest tube History of hand surgery right/left Left femoral shaft fracture Dutch placed>hardware intact H/O total hip arthroplasty left H/O elbow surgery R radial head ORIF prior to 2009; R elbow I&D 08/05/23: GA: MAC#4, ETT#7.5HiLo, Gr View 1 H/O exploratory thoracotomy "Left thoracotomy wedge biopsy of left upper lobe with excision of lesion or nodule & frozen section 2002" H/[facility] incarcerated supraumbilical hernia repair open no mesh 02/17/01 Family History Father Heart disease Hypertension Brother Heart disease Cancer Hypertension Stroke Mother Cancer Other Leukemia No family history of adverse response to anesthesia No family history of bleeding disorder Non-Hodgkin lymphoma Denies family history of Hearing loss Asthma Social History Smoking Status: Current every day smoker Tobacco Type: Cigarettes Age Started Using Tobacco: 11; packs per day: 1; Cigarettes Per Day: 10 cig daily>advised; Second Hand Exposure: No; Do You Dip or Chew Tobacco: No; Hx Alcohol Use: No Hx Substance Use: No Preferred Language: Wolof Communication Ability: Effective Scutcher Tender Required: No Beliefs That Will Affect Care: None marital status: Current Living Situation: Spouse current occupational status: unemployed Feels Safe at Home: Yes Assistive Devices: Oxygen - at Night Physical Exam 2 Physical Exam: GENERAL: Speech and cognition is intact. Mood and affect is appropriate. Lying in bed and appears comfortable at rest, but does have a stiff neck when the hospital bed is moved. HEAD: Normocephalic; atraumatic. NECK: Significantly diminished ROM; trachea is midline; + exquisite TTP/spasm to bilateral mid to upper neck and cervical paraspinals. + TTP bilateral upper cervical facet joints. NEURO: CN II-XII grossly intact with no focal deficits noted. SKIN: No lesions, erythema, or rashes noted. Exam limited secondary to pain and guarding. Results (Pain Clinic) Laboratory Review Additional Comments: Laboratory Results - last 48 hr 12/10/23 12/10/23 12/10/23 11:24 15:55 15:59 WBC RBC Hgb Hct MCV MCH MCHC RDW Std Deviation RDW Coeff of Jaz Plt Count MPV Heparin Anti-Xa, Unfract 0.55 Sodium Potassium Chloride Carbon Dioxide Anion Gap BUN Creatinine Est Cr Clr Drug Dosing eGFR BUN/Creatinine Ratio Glucose POC Glucose 99 119 H Calcium Phosphorus Magnesium 12/10/23 12/11/23 12/11/23 20:19 05:46 07:16 WBC 10.50 RBC 3.86 L Hgb 11.8 L Hct 34.2 L MCV 88.6 MCH 30.6 MCHC 34.5 RDW Std Deviation 50.7 H RDW Coeff of Jaz 15.3 H Plt Count 387 MPV 11.2 Heparin Anti-Xa, Unfract 0.50 Sodium 139 Potassium 4.2 Chloride 102 Carbon Dioxide 32 Anion Gap 5 BUN 18 Creatinine 0.83 Est Cr Clr Drug Dosing 87.4 eGFR 94.15 BUN/Creatinine Ratio 21.7 H Glucose 94 POC Glucose 100 H 102 H Calcium 9.0 Phosphorus 5.1 H Magnesium 1.7 12/11/23 12/11/23 12/11/23 11:02 15:55 20:08 WBC RBC Hgb Hct MCV MCH MCHC RDW Std Deviation RDW Coeff of Jaz Plt Count MPV Heparin Anti-Xa, Unfract Sodium Potassium Chloride Carbon Dioxide Anion Gap BUN Creatinine Est Cr Clr Drug Dosing eGFR BUN/Creatinine Ratio Glucose POC Glucose 76 113 H 118 H Calcium Phosphorus Magnesium 12/12/23 12/12/23 05:29 07:06 WBC RBC Hgb Hct MCV MCH MCHC RDW Std Deviation RDW Coeff of Jaz Plt Count MPV Heparin Anti-Xa, Unfract 0.29 L Sodium 139 Potassium 4.0 Chloride 102 Carbon Dioxide 32 Anion Gap 5 BUN 19 Creatinine 0.87 Est Cr Clr Drug Dosing 83.1 eGFR 92.83 BUN/Creatinine Ratio 21.8 H Glucose 96 POC Glucose 99 Calcium 9.3 Phosphorus Magnesium 1.[address] Findings: MRI Findings: CERVICAL SPINE MRI HISTORY: severe neck pain, restricted ROM, acute wo trauma TECHNIQUE: Multiplanar multisequence MRI of the cervical spine was performed without the use of contrast. COMPARISON STUDY: Cervical spine CT 06/13/2023. FINDINGS: Suboptimal evaluation of the cervical spine due to motion artifact. However, no definite fracture or subluxation. Prevertebral soft tissues and the C1-C2 interval are intact. Near nondiagnostic evaluation of the axial sequences due to the motion artifact. The cervical spinal cord appears to be normal in course, caliber, and signal intensity. Small amount of fluid within the right C2-C3 facets with associated marrow edema. There is soft tissue edema surrounding the right C2-C3 facet and extending into the posterior soft tissues of the upper neck. This favors advanced degenerative change. Superimposed infection is considered less likely given the lack of erosive change. C2-C3: No significant central canal or neural foraminal narrowing. C3-C4: No significant central canal narrowing. Mild left-sided neural foraminal narrowing due to the uncovertebral and facet hypertrophy. C4-C5: No significant central canal narrowing. Mild bilateral neural foraminal narrowing due to the uncovertebral and facet hypertrophy. C5-C6: No significant central canal narrowing. Mild right and moderate left neural foraminal narrowing due to the uncovertebral and facet hypertrophy. C6-C7: No significant central canal or neural foraminal narrowing. C7-T1: No significant central canal or neural foraminal narrowing. IMPRESSION: 1. Suboptimal evaluation of the cervical spine due to the significant motion artifact. 2. Small amount of fluid within the right C2-C3 facets with associated marrow edema. There is soft tissue edema surrounding the right C2-C3 facet and extending into the posterior soft tissues of the upper neck. This favors advanced degenerative change. Superimposed infection is considered less likely given the lack of erosive change. 3. No fracture or subluxation. 4. No significant central canal narrowing ACT 112: Negative or not required by law. Electronically signed by: Asim Peck M.D. 06/14/2023 2:36 PM Dictated: 06/14/234 Transcribed: 06/14/231423 CT Findings: CT OF THE CERVICAL SPINE WITHOUT CONTRAST CLINICAL HISTORY: Severe neck pain. COMPARISON STUDY: Cervical spine CT April 17, 2023. TECHNIQUE: Helical axial images of the cervical spine were obtained without IV contrast. Sagittal and coronal reconstructions were viewed. Automated exposure control was utilized for the study. A dose lowering technique was utilized adhering to the principles of ALARA. FINDINGS: Evaluation of the mid to lower cervical spine is mildly compromised by artifact. Alignment of the cervical spine is anatomic. Vertebral body heights are maintained. No acute cervical spine fracture or subluxation is present. There is no prevertebral edema. Facet joints are intact. Central canal and neural foramina are suboptimally assessed given CT technique. Moderate multilevel degenerative disc disease and facet arthrosis is present. IMPRESSION: 1. No acute cervical spine fracture or subluxation. 2. Moderate degenerative changes within the cervical spine. 3. Exam mildly compromised by artifact. ACT 112: Negative or not required by law. Electronically signed by: Jose A Hernandez M.D. 06/13/2023 12:26 PM Dictated: 06/13/23 1223 Transcribed: 06/13/23 1223 Elbow MRI 12/09/23 13:28 EXAM: MR elbow RT wo/w con CLINICAL HISTORY: 9CC GADAVIST INJ. LEFT IV AT 1840 HRS. BY MAD GFR 101.84 PREV. SURG OF RIGHT ELBOW WITH RECENT I D 08/05/23 R/O OSTEOMYELITIS PROP SCANS FOR MOTION /PT. WAS MEDICATED FOR CLAUSTROPHOBIA ARTIFACT FROM IV IN RIGHT ELBOW-DISCONECTED FOR MRI EXAM BEST SCANS AT THIS TIME TECHNIQUE: Multiplanar multisequence MR imaging of the rigth elbow was acquired with and without contrast. Images were referred for interpretation. 9CC Gadavist given. COMPARISON: Xray dated 10/10/2020. FINDINGS: Bones: Redemonstration of the radial head fracture. Adela hole tracks are seen traversing the radial head suggesting internal fixation. Enhancing marrow edema is seen in the radial head, neck and proximal shaft suggesting post-operative edema changes. Multiple soft tissue foci of ferromagnetic artifacts mainly at the lateral aspect of the elbow joint likely post-fixation of the radial collateral ligament and common flexor tendon. Joints: Narrowing of the radiocapital joint space with irregular radial articular surface. Mild joint effusion with enhancing joint capsule. Ligaments: Intact and normal appearance of the ulnar collateral ligament (UCL), radial collateral ligament (RCL), and annular ligament. No evidence of ligamentous injury or abnormalities. Tendons: Normal appearance of the biceps tendon, triceps tendon, and common flexor tendons. thickened common extensor tendon with bands of high signal Muscles: No significant muscle atrophy or gapping tears. Nerves: Normal appearance and course of the median, ulnar, and radial nerves. No evidence of nerve compression or abnormal signal changes. Soft Tissues: No abnormal masses, fluid collections, or signs of inflammation. IMPRESSION: 1. Old radial head fracture with post operative changes as described. 2. Soft tissue foci of ferromagnetic artifacts mainly at the lateral aspect of the elbow joint likely post-fixation of the radial collateral ligament and common flexor tendon with ill-defined outline, for follow-up. 3. Marrow edema of the proximal radius. 4. Mild elbow joint effusion with enhancing capsule and periarticular soft tissue edema, suspecting post-operative/inflammatory changes. 5. Common extensor tendinopathy. Electronically signed by Iliana Garcai 12-11-2023 8:[address] 12/10/23 14:14 EXAM: CT Cervical Spine Without Intravenous Contrast INDICATION: Bilateral neck pain. TECHNIQUE: Axial computed tomography images of the cervical spine without intravenous contrast. Sagittal and coronal reformatted images were created and reviewed. This CT exam was performed using one or more of the following dose reduction techniques: automated exposure control, adjustment of the mA and/or kV according to patient size, and/or use of iterative reconstruction technique. COMPARISON: No relevant prior studies available. FINDINGS: Limitations: None. Vertebrae: The bones are demineralized diffusely. The spine is tilted to the right possibly related to spasm or position. There is mild spondylosis developing anterior bridging at C5-C6 and C6-C7. There is diffuse mild facet hypertrophy worse on the right. No fracture or subluxation. There is moderate ossification. Discs/spinal canal/neural foramina: Diffuse mild to space narrowing. No significant foraminal or canal stenosis identified. Soft tissues: Moderate ligamentous ossification about the dens. Vasculature: Carotid atherosclerosis noted. Lung apices: No significant abnormality noted. IMPRESSION: Osteoporosis and diffuse mild facet arthrosis and spondylosis. No fracture or stenosis. ACT 112: Negative or not required by law. Electronically signed by Neela Pinon 12-10-2023 3:52 PM
[2023-12-12] MEDS: CYCLOBENZAPRINE HCL 5 MG TAB PO PRN (10:38)
[2023-12-12] MEDS ORDERED: NITROGLYCERIN 0.3 MG/1 TAB 100 TAB BTL SL PRN (11:53)
[2023-12-12] MEDS: NITROGLYCERIN SL 0.4 MG/TAB TAB ONE ×2 (11:55→12:09)
--- NOTE | 2023-12-12 12:33 | Communication Note ---
Date of Service: December 12, 2023 Paged by RN for chest pain around 1200hrs. He had run of Vtach (22 beats) preceding the chest pain event. Pt seen and evaluated at bedside. Pt reports pressure like chest pain, denies h/o stents to heart/heart attack/stroke. Chest pain acutely came up at rest, 6/10 in intensity, radiating to back, no nausea/warmth/diaphoresis/dry heaves. Not relieved by nitro sl at bedside initially but cause BP to drop down to 73/45, started IVF BP gradually improved 91/39. Chest pain started to get better and was back to zero/10 in about 10-15 min. EKG done and repeated, no acute st-t changes appreciated. Stat trop, echo and CTA chest to ro dissection sent. Hold heparin, keep npo, cardio consult. Cardio made aware via TT. On exam: GENERAL: Alert and oriented x3. NAD, on 2L NC O2 HEENT: No pallor, no icterus. Pupils equal, round and reactive to light. Oral mucosa moist. NECK: No JVD, no neck masses. HEART: S1 and S2 heard. Regular rate and rhythm. No murmur, no gallop. RESPIRATORY SYSTEM: Normal AP diameter. No accessory muscle use. No wheezing, no crackles. ABDOMEN: Soft, bowel sounds present, nontender, no distention. CENTRAL NERVOUS SYSTEM: No facial droop. Speech is clear. Obeys simple commands. Moves extremities. EXTREMITIES: No ble edema, no erythema seen. Pt's updated over the phone regarding discontinuing antimicrobial therapy and f/u bone and ID physician on DC. Pt also updated on pt's new complain of chest pain and need to rule out serious condition including heart attack and dissection. She voiced understanding. Answered all her questions. Follow up: ECHO and CTA chest w/ no acute finding, resume heparin drip. trend troponins for now, c/w telemetry. monitor and replete electrolytes. pt's again updated on findings and plan of care. she voiced understanding. Per RN, pt remains w/ no chest pain, BP improving.
[2023-12-12 12:34] LABS: Magnesium 2.3 mg/dl (1.7-2.4)
[2023-12-12 12:41] LABS: Troponin I High Sensitivity 6.4 pg/ml (0-20)
[2023-12-12] MEDS: SODIUM CHLORIDE 0.9% 500 ML IV ONE (13:01)
[2023-12-12] MEDS: OPTIRAY 320 125ml IV ONE (13:02)
[2023-12-12 13:19] LABS: ANTI-Xa, UFH(UnfractionatedHep 0.24 IU/ml (0.3-0.7)
[2023-12-12] MEDS: SODIUM CHLORIDE 0.9% 1,000 ML IV SCH (13:26)
--- NOTE | 2023-12-12 14:37 | CT Scan Report ---
CT angio chest dissec wo/w con CT DOSE: 1906.45 mGy.cm HISTORY: 68 years-old Male with ro aortic dissection. Acute chest pain TECHNIQUE: Multiple CTA images of the chest were obtained with and without the intravenous administra tion of 112 ml Optiray. Coronal and sagittal MIPS were obtained from the axial data set and were sub mitted for review. All measurements were obtained according to NASCET criteria. A dose lowering tech nique was utilized adhering to the principles of ALARA. COMPARISON: CT chest 12/08/2023, screening CT 11/26/2022 FINDINGS: CTA: Unchanged cardiomegaly without pericardial effusion. Extensive coronary artery calcifications. Athero sclerosis of the aorta without aneurysm. Left subclavian PICC distal tip terminates in the mid SVC. N onocclusive segmental and subsegmental pulmonary emboli within the right lower lobe redemonstrated. N o central pulmonary emboli or evidence of right heart strain. No thoracic aortic dissection or hemato ma. CT CHEST: No thyroid nodule or pathologically enlarged lymph nodes. No pneumothorax. Mild emphysema with interl obular septal thickening redemonstrated along with bronchial wall thickening. Mild dependent subsegme ntal bibasilar atelectasis. There is a 5 mm nodule within the left lung on image 79 series 7 previous ly measured 4 m. This is favored to be benign. Central airways are patent. Irregular 6 mm solid nodul e within the basal left lower lobe on image 146 is stable and likely benign. No acute upper abdominal abnormality. No acute fracture. Postoperative changes of the right proximal humerus. IMPRESSION: 1. No thoracic aortic aneurysm or dissection. 2. Unchanged small nonocclusive segmental and subsegmental pulmonary pulmonary emboli of the right lo wer lobe appear stable compared to the 12/08/2023 study. 3. Emphysema with mild bibasilar atelectasis. 4. No lymphadenopathy. ACT 112: Negative or not required by law. The above report was generated using voice recognition software. It may contain grammatical, syntax o r spelling errors. Electronically signed by: Colby Mata M.D. 12/12/2023 2:35 PM
--- NOTE | 2023-12-12 14:49 | Hospitalist Progress Note ---
Date of Service December 12, 2023 Assessment & Plan (1) Pulmonary embolism: Plan: 68 y/o M with PMHx of significant for hyperlipidemia, hypertension, COPD/pulmonary emphysema, chronic diastolic heart failure [/EF 55-59% -- TTE 09/2023], PVD, TAYLOR on 2L O2 HS, aortic atherosclerosis, GERD with esophagitis, chronic pain syndrome, senile osteoporosis, descending aortic thrombus, PE, tobacco use disorder and adjustment disorder with depressed mood/CARLOS who presented to the ED for evaluation secondary to generalized weakness and SOB/dyspnea. He was found to have a small segmental/subsegmental pulmonary embolus in the right lower lobe. He is being managed for the following: Acute Pulmonary Embolus: Chest CTA --> A small segmental/subsegmental pulmonary embolus in the right lower lobe. Patient with previous history of DVT/PE and aortic thrombus. BLE venous doppler negative for DVT. CTA chest with no right heart strain, troponin WNL at presentation. Patient with no chest pain. BLE venous Doppler negative for DVT. Continue with IV heparin drip. Eliquis cost of 4.60/month, patient agreeable. Will transition to Eliquis likely les if no new acute issues. Chest pain: Pt had 22 beats of VT 1140 am on 12/12/23 f/b chest pain, relieved after 2 SL nitro. BP dropped, IVF bolus and drip started, BP improved. Trop was neg, will trend trop. ECHO w/ EF of 55-60%, LV systolic fxn wnl. CTA chest to ro dissection was neg. Cardio consult. C/w tele monitoring. Since no concern of dissection, will resume heparin drip. Concern for R Elbow Olecranon Septic Bursitis: Recently (10/26 - 11/01) pt was treated for rt elbow olecranon septic bursitis w/ 6 wk course of IV caspofungin and vancomycin which pt did finish upon DC. Pt presented w/ continued significant rt elbow pain, there was concern of cellulitis and osteomyelitis. Imagings neg for OM, d/w ID 12/11, no antibiotic. MRI Rt elbow shows marrow edema of proximal radius and common extensor tendinopathy. D/w ortho 12/11, c/w PT (ROMAT w/ Physical therapy for elbow). DC caspofungin and daptomycin Neck pain: back and base of neck pain for about a month, worsening, no numbness or tingling in arms. pt states getting injection in the neck in past. CT neck w/ no acute findings. no relief w/ diclofenac gel and oxycodone. d/w Pain Mx 12/11, possible TPI in about 2 wks. Diarrhea: Stool PCR remains uncollected. Diarrhea seems resolved. Hypomagnesemia: Monitor and replete, continue home oral magnesium supplementation, may uptitrate if needing iv mag replacement frequently. Other Chronic Medical Conditions: HTN, COPD, HLD, GERD, depression/CARLOS --> Can continue home medications for these specific conditions. PRN nebs, continue 2L via RI HS for TAYLOR. DVT Prophylaxis: On IV heparin as per above, continue. Code Status: FULL CODE PCP: Ajit Moreno MD Disposition:PCU/Telemetry Time spent : 80 min. Admission and Anticipated Discharge Date Admission Date: December 08, 2023 Subjective Patient was seen and examined at bedside. During AM round: Patient was sitting up in bed, on RA, not in any acute distress. Patient reports eating okay, moving bowels okay. Patient reports right elbow pain, not much improved per him but ROM seems ok. Pt continues to report chronic neck pain, pain mx evaled, pt to f/u w/ pain mx as OP. About noon time: was paged by RN for acute chest pain f/u 22 beats of VT, pt was examined/managed at bedside. See communication note. Physical Exam Physical Exam: oriented x 3, not in distress, speaks in sentences with no effort nor accessory muscle use normal rate, regular rhythm, no murmurs clear breath sounds bilaterally, no wheezing non distended, soft, nontender R elbow: surgical scar healing well, moderate edema, mild erythema and warmth, (+) significant tenderness -ve lower extremity edema, No erythema/ warmth no neuro deficits Results & Data Results & Data Vital Signs (Past 12 Hours) Vital Signs Temp Pulse Pulse Resp BP Pulse Ox O2 Del Method 12/12/23 13:17 102/58 L 12/12/23 13:00 58 L 12/12/23 12:45 91/45 L 12/12/23 12:15 83/59 L 12/12/23 12:05 94/66 L 12/12/23 11:45 60 18 114/68 89 L Room Air 12/12/23 11:30 36.5 C 63 18 127/68 95 Room Air 12/12/23 08:30 Room Air 12/12/23 07:00 54 L 12/12/23 07:00 36.6 C 57 L 20 123/70 94 Nasal Cannula 12/12/23 02:32 36.6 C 58 L 18 103/49 L 98 Nasal Cannula O2 Flow Rate 12/12/23 13:17 12/12/23 13:00 12/12/23 12:45 12/12/23 12:15 12/12/23 12:05 12/12/23 11:45 12/12/23 11:30 12/12/23 08:30 12/12/23 07:00 12/12/23 07:00 12/12/23 02:32 2 (1) Pulmonary embolism Acute cor pulmonale presence: without acute cor pulmonale Chronicity: acute Pulmonary embolism type: unspecified Qualified Code(s): I26.99 - Other pulmonary embolism without acute cor pulmonale
--- NOTE | 2023-12-12 15:15 | Electrocardiogram Report ---
Test Reason : Blood Pressure : */* mmHG Vent. Rate : 61 BPM Atrial Rate : 61 BPM P-R Int : 178 ms QRS Dur : 84 ms QT Int : 438 ms P-R-T Axes : 60 13 10 degrees QTcB Int : 440 ms Normal sinus rhythm Normal ECG When compared with ECG of 12-Dec-2023 11:44, (unconfirmed) No significant change was found Confirmed by José Luis Rios ([id number]) on 12/12/2023 3:15:09 PM Referred By: REFERRED SELF Confirmed By: José Luis Rios
--- NOTE | 2023-12-12 15:15 | Orthopedic Progress Note ---
Date of Service December 12, 2023 Assessment & Plan (1) Right elbow pain: The patient is doing well in regards to the right elbow. No orthopedic intervention indicated at this time. MRI is reassuring for no osteomyelitis or fluid collections. He has good range of motion of his right elbow with some pain as expected from his likely now chronic condition. He may be range of motion as tolerated in the right upper extremity. Please reach out to infectious disease if there are any questions with his antibiotics as they will be managing him. He does have infectious disease from an outpatient standpoint, therefore if anything is needed, I am sure they can also intervene. He still has his PICC line in from his last 6 weeks of vancomycin. We can follow him up as an outpatient from an orthopedic standpoint. Please reach out with any question or concerns. Casper Lerma is a 5-year-old male who is here for unrelated orthopedic problems, however we have been following him due to his history of a right elbow I&D and radial head screw removal by Dr. Willis. I last saw him late last week when he got admitted for cardiac/pulmonary reasons. He did have right elbow pain and swelling. He finished his IV antibiotics as instructed by outpatient infectious disease. He did have an elevated white count upon admission to the hospital, therefore some investigations were ongoing with his right elbow. Infectious disease did see him and recommended an MRI of the right elbow. I did review the MRI. No osteomyelitis in the right elbow which was what was being evaluated for. I would visit today, he is with his . He is laying with his hands be hind his head, his elbow is at full flexion. No other questions or concerns today. Review of Systems All systems reviewed & are unremarkable except as noted in HPI & below. Physical Exam General: Alert and oriented. In no acute distress at my visit. Right elbow: As noted in the HPI, the patient is resting comfortably in his hospital bed with his hand behind his head with his elbow at full flexion. He is able to fully extend, however when he gets to terminal extension, he does have some pain. Elbow remains minimally tender and minimally erythematous. This is likely his baseline from his surgery. No open wounds. No drainage noted. Sensation intact. Distal pulses palpated. Cap refill less than 3 seconds. Results & Data Results & Data Laboratory Results . Diagnostic Findings MRI right elbow on 12/09/2023: IMPRESSION: 1. Old radial head fracture with post operative changes as described. 2. Soft tissue foci of ferromagnetic artifacts mainly at the lateral aspect of the elbow joint likely post-fixation of the radial collateral ligament and common flexor tendon with ill-defined outline, for follow-up. 3. Marrow edema of the proximal radius. 4. Mild elbow joint effusion with enhancing capsule and periarticular soft tissue edema, suspecting post-operative/inflammatory changes. 5. Common extensor tendinopathy. PG Care Time/CCT Total # of Minutes Spent Total Time Spent with Patient: Total time spent is greater than 50% in coordination of care (as documented) at patient's floor/unit and/or counseling patient: Coding Diagnoses Right elbow pain M25.521
--- NOTE | 2023-12-12 15:15 | Electrocardiogram Report ---
Test Reason : Blood Pressure : */* mmHG Vent. Rate : 58 BPM Atrial Rate : 58 BPM P-R Int : 182 ms QRS Dur : 86 ms QT Int : 438 ms P-R-T Axes : 31 1 3 degrees QTcB Int : 429 ms Poor data quality, interpretation may be adversely affected Sinus bradycardia Inferior infarct , age undetermined Abnormal ECG When compared with ECG of 08-Dec-2023 12:35, No significant change was found Confirmed by José Luis Rios ([id number]) on 12/12/2023 3:14:57 PM Referred By: REFERRED SELF Confirmed By: José Luis Rios
--- NOTE | 2023-12-12 15:22 | Cardiology Consultation ---
Date of Consultation December 12, 2023 Assessment & Plan (1) Chest pain: (2) Nonsustained ventricular tachycardia: (3) Hypomagnesemia: (4) Pulmonary embolism: Plan Assessment: 68 year old male admitted for acute RLL PE, developed sudden onset chest pain after a 22 beat run of non-sustained VT on telemetry. Cardiology has been requested to evaluate and provide further recommendations. Plan: 1. chest pain 2. Non-sustained VT 3. Hypomagnesemia 4. Pulmonary embolism -Patient with sudden onset chest pain just following a witnessed 22 beat run of VT on telemetry. Since resolved and remains chest pain free. He did receive SL NTG x2 which eventually resolved his pain, but caused a hypotensive response requiring IV fluid resuscitation. -Found to have a serum mag of 1.6, since supplemented. -EKG at time of event demonstrates NSR with no acute ST-T wave changes. -High sensitivity troponin negative x2. -Echocardiogram demonstrates normal LVEF and no wall motion abnormalities. -Stat Chest CT negative for acute aortic dissection or other acute process. -Pain likely multifactorial in the setting of a new PE; however, occurring after a run of VT. -Recommend close monitoring on telemetry -Close electrolyte monitoring with supplementation as appropriate. -No indication for invasive cardiac work up at this time. Patient may eat. -discussed plan with patient and spouse. Once patient is discharged and PE has resolved, may consider ischemic workup for completeness; however, no clinically appropriate at this time. -Continue current cardiac regimen with Atorvastatin, ASA 81mg, and Lopressor 12.5mg PO BID -Continue Heparin gtt for management of acute PE. Case has been discussed with Dr. Weaver. Further recommendations regarding plan of care as per his assessment. I spent a total of 30 minutes on the date of service in preparation, delivery, documentation of the care provided to the patient excluding any time spent in the performance of separately billed services. NAPOLEON Plasencia [facility] Cardiology [facility] Supervising Physician Co-Signing Physician Notes I have personally performed a history and physical examination on the patient. I have reviewed the advance practitioner's documentation, and I agree with, and take responsibility for the plan of care. 68-year-old male admitted due to chest pain with CT evidence of recurrent right sided pulmonary embolus. History of pulmonary embolus 2016 and aortic thrombus 2023. Describes sharp/stabbing left-sided parasternal chest discomfort which was intense, radiated to his back. States the pain "took my breath away". No relief with sublingual nitroglycerin. Although, patient became hypotensive requiring IV fluid. Serial ECG performed without ischemic changes. High- sensitivity troponin within normal limits. Bedside echocardiogram demonstrates no regional wall motion abnormality. Discomfort somewhat reproducible with palpation. Run of nonsustained ventricular tachycardia in the setting of hypomagnesemia and preserved LV systolic function. Recommend lifelong anticoagulation due to recurrent, unprovoked pulmonary embolus. Hypercoagulable workup indicated. Continue current cardiovascular medications including atorvastatin, low-dose aspirin, and beta-miriam as ordered. Continue telemetry monitoring. Repeat high-sensitivity troponin as ordered. Consider outpatient ischemic workup when PE has resolved. All questions answered to patient's satisfaction. Rafiq Weaver DO, [facility] History of Present Illness Reason for Consultation: chest pain Requesting Physician: Adam pickens Attending Physician: Amrik Chacon MD History of Present Illness HPI: Patient is a 68 year old male with PMHx significant for HTN, HLD, COPD/emphysema, Chronic diastolic HF, PVD TAYLOR (o2 supplemental O2 HS), aortic atherosclerosis, GERD, History of a PE and prior decending aortic thrombus that presented to the ED with generalized weakness and shortness of breath. CT imaging demonstrated a small segmental/subsegmental Pulmonary emboli in the right lower lobe. He was placed on a heparin gtt. Today, patient complained of acute chest pain/pressure radiating to his back. EKG was obtained at time of event NSR rate 61bpm and no acute ST-T wave changes. Patient was sent for a stat Chest CT to exclude any concern for aortic dissection which was as follows: IMPRESSION: 1. No thoracic aortic aneurysm or dissection. 2. Unchanged small nonocclusive segmental and subsegmental pulmonary pulmonary emboli of the right lower lobe appear stable compared to the 12/08/2023 study. 3. Emphysema with mild bibasilar atelectasis. 4. No lymphadenopathy. STAT echocardiogram obtained which shows LV systolic function is normal 55-60%, mild concentric LVH, Mild aortic sclerosis with no evidence of stenosis, aortic root and proximal ascending aorta are normal sized. High sensitivity troponin negative x2. Cardiology was asked to see him with regards to his chest pain. Further assessment and review of Telemetry shows that patient has a predominant NSR, but he had a 22 beat run of Ventricular tachycardia at 1140am. patient states that he developed the chest pain, sharp in nature radiating into his back just after being notified of the event. He denied any associated symptoms. No pre-syncope, syncope, no shortness of breath, or diaphoresis. Nursing staff reports that he was given 2 SL NTG which eventually resolved his pain, but also caused a radical drop in blood pressure. he was given a 500cc NSS bolus followed by an additional 500cc maintenance bag. Serum Mag 1.6 Serum K 4.0. Allergies Allergy/AdvReac Type Severity Reaction Status Date / Time No Known Allergies Allergy Verified 12/08/23 15:18 Home Medications Medication Instructions Recorded Confirmed Type pregabalin 100 mg capsule (Lyrica) 100 mg PO BID 10/16/17 12/08/23 History ondansetron 8 mg disintegrating 8 mg PO Q8H PRN Nausea 04/07/22 12/08/23 History tablet clobetasol 0.05 % topical cream 1 applic topical BID PRN Rash 12/29/22 12/08/23 History levalbuterol HCl 1.25 mg/3 mL 1.25 mg inhalation Q4H PRN Wheezing 12/29/22 12/08/23 History solution for nebulization triamcinolone acetonide 0.1 % 1 applic topical BID PRN Rash 12/29/22 12/08/23 History topical cream (Triderm) cyanocobalamin (vitamin B-12) 1,000 mcg PO QAM 03/08/23 12/08/23 History 1,000 mcg tablet (Vitamin B-12) aspirin 81 mg tablet,delayed 81 mg PO QAM #30 tabs 03/11/23 12/08/23 Rx release pantoprazole 40 mg tablet,delayed 40 mg PO BID 30 days #60 tabs 04/06/23 12/08/23 Rx release (Protonix) albuterol sulfate 90 mcg/actuation 2 puff inhalation Q4H PRN 04/26/23 12/08/23 Rx aerosol inhaler Shortness Of Breath Or Wheezing #8.5 grams escitalopram oxalate 10 mg tablet 10 mg PO QAM 06/13/23 12/08/23 History (Lexapro) CPAP Machine #1 ea 06/24/23 12/08/23 Rx CPAP Supplies #1 ea 06/24/23 12/08/23 Rx metoprolol tartrate 25 mg tablet 12.5 mg (1/2 x 25 mg) PO BID #30 08/09/23 12/08/23 Rx tabs furosemide 40 mg tablet (Lasix) 40 mg PO QAM Fluid accumulation, 10/10/23 12/08/23 History weight gain loperamide 2 mg tablet (Imodium 4 mg PO TID PRN Diarrhea 10/10/23 12/08/23 History A-D) montelukast 10 mg tablet 10 mg PO HS 10/10/23 12/08/23 History (Singulair) prochlorperazine maleate 5 mg 5 mg PO Q6H PRN NAUSEA/VOMITING 10/10/23 12/08/23 History tablet (Compazine) fluticasone fur. 100 mcg-umeclid 1 inh inhalation DAILY #60 ea 10/11/23 12/08/23 Rx 62.5 mcg-vilant 25 mcg inhalat.powder (Trelegy Ellipta) atorvastatin 80 mg tablet (Lipitor) 80 mg PO QAM 10/19/23 12/08/23 History magnesium chloride 64 mg 64 mg PO QAM 10/19/23 12/08/23 History (magnesium chloride) tablet,delayed release (Mag 64) fluconazole 200 mg tablet 400 mg PO BID 11/20/23 12/08/23 History apixaban 5 mg tablet (Eliquis) 5 mg PO UD #74 tabs 12/09/23 Rx Patient History Medical History Hyperglycemia Ha1c 6.2% 10/10/23 labs; no mention of DMII by PCP Cigarette smoker Obesity 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 Saw vascular: started on [id number] and Eliquis. Eliquis was then D/C by pulmonary 04/2023. Pt had normal f/u chest CTA 06/20/23 Irregular cardiac rhythm pt noted to have 25beats of Nonsustained VTach vs PAT day of discharge (08/09/23) [facility]; pt denied sx; started on metoprolol and ordered Zio monitor and Cardio referral Peripheral vascular disease Chronic diastolic heart failure PCP monitoring; ECHO 10/03/23 with nl EF and Gr I DD. 'no changes to medications needed at this time. Continue lasix daily' per PCP Chronic back pain "hx broken back"no back surgery Arthritis GERD (gastroesophageal reflux disease) Hx pulmonary embolism 2017 developed after a bad fall (was on coumadin for 1 year) Cardiac murmur no significant valve disease per 10/03/23 ECHO Hypertension Hyperlipidemia Chronic obstructive pulmonary disease 'group D' per pulm. Pt admitted [facility] for COPD exacerbation 10/08-10/11/23; admitted [facility] for COPD exacerbation (also had COVID at the time): 09/22- 09/25/23; admitted for COPD exacerbation 05/17-05/21/23 Asthma required rescue inhaler "just the other day" Chronic respiratory failure On oxygen at night in the past - but no longer needs per patient . Per 10/18/23 PCP note, 'pt stable from a respiratory standpoint' Hx of migraines Sleep apnea 2L O2 HS (no other device) History of COVID-19 Admitted [facility] 09/22-09/25/23 COVID+ and COPD exacerbation; pt states no longer having COVID sx Pneumothorax Hx- complication from pain injection- resolved Histoplasmosis 2002- treated Surgical History H/O hernia repair History of esophagogastroduodenoscopy (EGD) Hx of colonoscopy History of open reduction and internal fixation (ORIF) procedure right shoulder History of total replacement of left shoulder joint History of sinus surgery History of placement of chest tube History of hand surgery right/left Left femoral shaft fracture Dutch placed>hardware intact H/O total hip arthroplasty left H/O elbow surgery R radial head ORIF prior to 2009; R elbow I&D 08/05/23: GA: MAC#4, ETT#7.5HiLo, Gr View 1 H/O exploratory thoracotomy "Left thoracotomy wedge biopsy of left upper lobe with excision of lesion or nodule & frozen section 2002" H/O hernia repair [facility] incarcerated supraumbilical hernia repair open no mesh 02/17/01 Family History Father Heart disease Hypertension Brother Heart disease Cancer Hypertension Stroke Mother Cancer Other Leukemia No family history of adverse response to anesthesia No family history of bleeding disorder Non-Hodgkin lymphoma Denies family history of Hearing loss Asthma Social History Smoking Status: Current every day smoker Tobacco Type: Cigarettes Age Started Using Tobacco: 11; packs per day: 1; Cigarettes Per Day: 10 cig daily>advised; Second Hand Exposure: No; Do You Dip or Chew Tobacco: No; Hx Alcohol Use: No Hx Substance Use: No Preferred Language: Hebrew Communication Ability: Effective 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 Beliefs That Will Affect Care: None marital status: Current Living Situation: Spouse current occupational status: unemployed Feels Safe at Home: Yes Assistive Devices: Oxygen - at Night Review of Systems Review of Systems: All systems reviewed & are unremarkable except as noted in HPI & below Physical Exam Constitutional: well developed and well nourished; no acute distress Neck: normal visual inspection and trachea midline Respiratory: normal respiratory effort, lungs clear to auscultation Cardiovascular: Rate/Rhythm: regular rate and regular rhythm Heart Sounds: normal S1 and normal S2; no murmur Vessels: dorsalis pedis pulses present; no JVD Extremities: no edema Skin: no rashes, warm and dry Psychiatric: A+Ox3, euthymic affect Results & Data Vital Signs (Past 12 Hours) Vital Signs Temp Pulse Pulse Resp BP Pulse Ox O2 Del Method 12/12/23 15:00 36.5 C 58 L 16 104/48 L 97 Room Air 12/12/23 13:17 102/58 L 12/12/23 13:00 58 L 12/12/23 12:45 91/45 L 12/12/23 12:15 83/59 L 12/12/23 12:05 94/66 L 12/12/23 11:45 60 18 114/68 89 L Room Air 12/12/23 11:30 36.5 C 63 18 127/68 95 Room Air 12/12/23 08:30 Room Air 12/12/23 07:00 54 L 12/12/23 07:00 36.6 C 57 L 20 123/70 94 Nasal Cannula Laboratory Results Cardiac Enzymes 12/12/23 12/12/23 Range/Units 12:06 14:23 Troponin I High Sens 6.4 5.4 (0-20) pg/ml Comprehensive Metabolic Panel 12/12/23 Range/Units 05:29 Sodium 139 (136-145) mmol/L Potassium 4.0 (3.5-5.1) mmol/L Chloride 102 (98-107) mmol/L Carbon Dioxide 32 (21-32) mmol/L BUN 19 (6-23) mg/dl Creatinine 0.87 (0.6-1.4) mg/dl Glucose 96 (70-99(Fasting)) mg/dl Calcium 9.3 (8.6-10.3) mg/dl Intake and Output 12/12/23 12/12/23 12/12/23 06:59 14:59 22:59 Intake Total 216.9 / 1973.1 983.667 / 983.667 Balance 216.9 / 1973. 983.667 / 983.667 Intake: IV 216.9 / 694.1 783.667 / 783.667 Heparin Sodium/Dextrose 25,000 216.9 / 434.1 112 / 112 units In 500 ml @ 900 UNITS/HR 18 mls/hr IV .Q24H [facility], 1928–1983 Rx#: [id number] Magnesium Sulfate / D5w 1 gm In 171.667 / 171.667 100 ml @ 50 mls/hr IV Q2H YUN Rx#:[id number] Sodium Chloride 0.9% 500 ml @ 500 / 500 999 mls/hr IV .Q31M ONE Rx#: [id number] Oral 200 / 200 Other: # Unmeasured Voids 1 Weight 90.1 kg (1) Chest pain Chest pain type: chest pain on breathing Qualified Code(s): R07.1 - Chest pain on breathing; R07.81 - Pleurodynia (4) Pulmonary embolism Acute cor pulmonale presence: without acute cor pulmonale Chronicity: acute Pulmonary embolism type: unspecified Qualified Code(s): I26.99 - Other pulmonary embolism without acute cor pulmonale
[2023-12-12 21:14] LABS: ANTI-Xa, UFH(UnfractionatedHep 0.28 IU/ml (0.3-0.7)
[2023-12-13 04:09] LABS: ANTI-Xa, UFH(UnfractionatedHep 0.45 IU/ml (0.3-0.7)
[2023-12-13 08:22] VITALS: TEMP 97.9
[2023-12-13] MEDS: APIXABAN 5 MG TABLET PO SCH (09:48)
[2023-12-13 11:32] VITALS: BP 119/65; RESP 14; O2SAT 90
--- NOTE | 2023-12-13 11:55 | Discharge Summary ---
Date of Service December 13, 2023 Admission HPI Per Admitting Provider Florentin Franks is a 68y/o M with PMHx significant for hyperlipidemia, COPD/pulmonary emphysema, chronic diastolic heart failure [/EF 55-59% -- TTE 09/2023], PVD, TAYLOR on 2L O2 HS, aortic atherosclerosis, GERD with esophagitis,/ chronic pain syndrome, senile osteoporosis, history of descending aortic thrombus, history of PE, tobacco use disorder and adjustment disorder with depressed mood/CARLOS who presented to the ED for evaluation secondary to generalized weakness and SOB/dyspnea. History obtained from the patient and associated chart review. Patient has been feeling increasingly weaker and fatigued over the past ~3 weeks. He has also been feeling increasingly short of breath over this time as well. He wears 2 L via [place] HS at baseline for treatment of TAYLOR. He has not required any increased oxygen support since this shortness of breath started. He was not hypoxic upon arrival to the ED, however he was tachypneic and slightly tachycardic. He was also notably wheezy according to the ED provider. His wheezing has since improved following a DuoNeb and 125mg of IV Solu-Medrol. He does endorse an ongoing cough productive of clear to whitish-colored sputum. No recorded hemoptysis. He recently was admitted here last month (10/27/2023-11/02/2023) for right elbow olecranon septic bursitis. He was discharged at that time on a 6-week course of IV caspofungin and vancomycin. He reports that he finished both of these IV medication courses in their entirety. He has also been having some diarrhea over the past week. Reports that he has been passing 4-5 loose stools per day. Denies any blood in his stool. He reports a good appetite and has been hydrating well at home. He was diligent with taking probiotics while on the antibiotic. He has been experiencing muscle aches in addition to the fatigue as well. His right elbow is still very painful to the touch and swollen. No fevers that he can recall but he has been having some chills however. No issues with urination. Admission Exam Per Admitting Provider VS noted and reviewed oriented x 3, not in distress, speaks in sentences with no effort nor accessory muscle use normal rate, regular rhythm, no murmurs clear breath sounds bilaterally, no wheezing non distended, soft, nontender R elbow: surgical site healing well, moderate edema, mild erythema, (+) significant tenderness (+) mild lower extremity edema: L>R, No erythema, warmth no neuro deficits Principal Diagnosis Pulmonary embolism Chest pain Right elbow pain Chronic neck pain Hypomagnesemia Discharge Exam oriented x 3, not in distress, speaks in sentences with no effort nor accessory muscle use normal rate, regular rhythm, no murmurs clear breath sounds bilaterally, no wheezing non distended, soft, nontender R elbow: surgical scar healing well, moderate edema, mild erythema, (+) significant tenderness -ve lower extremity edema, No erythema/ warmth no neuro deficits Discharge Data Allergies Allergy/AdvReac Type Severity Reaction Status Date / Time No Known Allergies Allergy Verified 12/08/23 15:18 Consultations 12/08/23 15:50 ED Decision to Admit Stat 12/08/23 17:04 Consult Orthopedic Surgery Routine 12/08/23 17:05 Consult Infectious Diseases Routine 12/11/23 09:03 Consult Pain Management Routine 12/12/23 12:07 Consult Cardiology Routine Ordered Studies 12/08/23 13:55 CT angio chest PE protocol Stat 12/08/23 16:46 CT elbow RT wo con Stat US venous doppler LE BI Stat 12/09/23 13:28 MR elbow RT wo/w con Routine 12/10/23 14:14 CT neck [CT cervical spine wo con] Urgent 12/12/23 12:10 CTA chest dissec wo/w con [CT angio chest dissec wo/w con] Stat Hospital Course (1) Pulmonary embolism: 68 y/o M with PMHx of significant for hyperlipidemia, hypertension, COPD/pulmonary emphysema, chronic diastolic heart failure [/EF 55-59% -- TTE 09/2023], PVD, TAYLOR on 2L O2 HS, aortic atherosclerosis, GERD with esophagitis, chronic pain syndrome, senile osteoporosis, descending aortic thrombus, PE, tobacco use disorder and adjustment disorder with depressed mood/CARLOS who presented to the ED for evaluation secondary to generalized weakness and SOB/dyspnea. He was found to have a small segmental/subsegmental pulmonary embolus in the right lower lobe. He was managed for the following: Acute Pulmonary Embolus: Chest CTA --> A small segmental/subsegmental pulmonary embolus in the right lower lobe. Patient with previous history of DVT/PE and aortic thrombus. BLE venous doppler negative for DVT. CTA chest with no right heart strain, troponin WNL at presentation. Patient with no chest pain. BLE venous Doppler negative for DVT. s/p IV heparin drip--to eliquis 10 mg bid x 7 days, then 5 mg bid thereafter. pt has been explained about the time of change in dosing. Pt advised to establish w/ blood doctor upon discharge for possible hypercoagulable workup. Chest pain: Pt had 22 beats of VT 1140 am on 12/12/23 f/b chest pain, relieved after 2 SL nitro. BP dropped, IVF bolus and drip started, BP improved. Trop trend neg. ECHO w/ EF of 55-60%, LV systolic fxn wnl. CTA chest to ro dissection was neg. Cardio evaled. Pt w/ no further chest pain, f/u w/ cardio as OP for ischemic work up. Concern for R Elbow Olecranon Septic Bursitis: Recently (10/26 - 11/01) pt was treated for rt elbow olecranon septic bursitis w/ 6 wk course of IV caspofungin and vancomycin which pt did finish upon DC. Pt presented w/ continued significant rt elbow pain, there was concern of cellulitis and osteomyelitis. Imagings neg for OM, d/w ID 12/11, no antimicrobials needed. MRI Rt elbow shows marrow edema of proximal radius and common extensor tendinopathy. D/w ortho 12/11, c/w PT (ROMAT w/ Physical therapy for elbow). Prescription provided to the patient. Neck pain: back and base of neck pain for about a month, worsening, no numbness or tingling in arms. pt states getting injection in the neck in past. CT neck w/ no acute findings. no relief w/ diclofenac gel and oxycodone. d/w Pain Mx 12/11, possible TPI in about 2 wks. Diarrhea: Stool PCR remains uncollected. Diarrhea seems resolved. Hypomagnesemia: Monitor and replete, continue home oral magnesium supplementation, may uptitrate if needing iv mag replacement frequently. Other Chronic Medical Conditions: HTN, COPD, HLD, GERD, depression/CARLOS --> Can continue home medications for these specific conditions. PRN nebs, continue 2L via [place] HS for TAYLOR. DVT Prophylaxis: On IV heparin as per above, continue. Code Status: FULL CODE PCP: Ajit Moreno MD Patient is being discharged home with home health with following instruction a t the point of discharge: Follow-up with your primary care physician within a week time and likely you will need labs CBC/CMP/magnesium/phosphorus. You are diagnosed with blood clot in your lung, you have been started on Eliquis from 12/13/2023 morning, take 10 mg Eliquis twice a day for 7 days followed by 5 mg Eliquis twice a day thereafter. You will need to follow-up with hematology in 1 to 2 months time for coagulation workup and further evaluation. Coordinate with your PCP office to set up the referral. For your right elbow pain, a prescription for physical therapy has been provided for range of motion as tolerated physical therapy. Continue with physical therapy and pain management. You can utilize heat compression in the area as tolerated upto 3-5 times a day, 20 minutes at a time. For your chronic neck pain, recommend you establish with pain management as an outpatient. Coordinate with your PCP office for referral. For your hypomagnesemia, your home magnesium dose has been doubled. You also had chest pain while in the hospital, cardiology evaluated you, you will need to follow-up with cardiology in 2 to 4 weeks time upon discharge to set up further workup/testing. As discussed with you at bedside and your over the phone that the PICC line needs to come out as it increases the chances of infection and other complication. But per you/your , you have been advised to keep PICC line in by your outpatient Infection Disease team. Please follow up with your infection doctor within a week time and decide on it if you actually need to keep it. The line needs to come out as soon as possible if there is no need per your outpatient Infection Disease provider. Take your medications as prescribed. Please make sure that you are able to get your medications today by calling your pharmacy before you leave the hospital so that your treatment continuity is not broken. Home Health Attestation I certify that this patient is under my care and that I, or a physicians outpatient physical therapist assistant working with me, had a face to-face encounter that meets the home health [id number] encounter requirements with this patient. The encounter with the patient was in whole, or in part, for the following medical condition, which is the primary reason for home health care (list medical condition): I certify that, based on my findings, the following services are medically necessary home health services: My clinical findings support the need for the above services because: Further, I certify that my clinical findings support that this patient is homebound (i.e. absences from home require considerable and taxing effort and are for medical reasons or episcopal services or infrequently or of short duration when for other reasons) because: Certification for Home Health Services: Based on the above findings, I certify that this patient is confined to the home and needs intermittent detention care, physical therapy and/or speech therapy or continues to need occupational therapy. The patient is under my care, and I have initiated the establishment of the plan of care. This patient will be followed by a physician who will periodically review the plan of care. Total Time Total Time Spent Total Time Spent (In Minutes): 50 Discharge Plan Discharge Items Patient Disposition: Home - Home Health Services Reason For Visit: PULMONARY EMBOLISM Discharge Diagnosis: Pulmonary embolism Chest pain Right elbow pain Chronic neck pain Hypomagnesemia Activity: Resume your previous activity Non-emergency contact: Primary Care Provider Call non-emergency contact if: you have any medication questions, your symptoms worsen and your temperature is above 101 Follow-up/Referrals: Ajit Moreno MD [Primary Care Provider] - (Date & Time 12/14/2023 4:20 PM Provider Ajit Moreno MD [facility] ) Diet: Carb Consistent or DM2 and Heart Healthy Addtl Attending Provider Instructions: Follow-up with your primary care physician within a week time and likely you will need labs CBC/CMP/magnesium/phosphorus. You are diagnosed with blood clot in your lung, you have been started on Eliquis from 12/13/2023 morning, take 10 mg Eliquis twice a day for 7 days followed by 5 mg Eliquis twice a day thereafter. You will need to follow-up with hematology in 1 to 2 months time for coagulation workup and further evaluation. Coordinate with your PCP office to set up the referral. For your right elbow pain, a prescription for physical therapy has been provided for range of motion as tolerated physical therapy. Continue with physical therapy and pain management. You can utilize heat compression in the area as tolerated upto 3-5 times a day, 20 minutes at a time. For your chronic neck pain, recommend you establish with pain management as an outpatient. Coordinate with your PCP office for referral. For your hypomagnesemia, your home magnesium dose has been doubled. You also had chest pain while in the hospital, cardiology evaluated you, you will need to follow-up with cardiology in 2 to 4 weeks time upon discharge to set up further workup/testing. As discussed with you at bedside and your over the phone that the PICC line needs to come out as it increases the chances of infection and other complication. But per you/your , you have been advised to keep PICC line in by your outpatient Infection Disease team. Please follow up with your infection doctor within a week time and decide on it if you actually need to keep it. The line needs to come out as soon as possible if there is no need per your outpatient Infection Disease provider. Take your medications as prescribed. Please make sure that you are able to get your medications today by calling your pharmacy before you leave the hospital so that your treatment continuity is not broken. Pending Studies at Discharge: No Stand-Alone Forms: My [employer]ally[employer], Smoking Cessation Medications and DC Order Prescriptions: New Eliquis 5 mg tablet 5 mg PO UD Qty: 74 0RF Rx Instructions: 10 mg bid x 7 days, then 5 mg bid thereafter. cyclobenzaprine 5 mg Tablet 5 mg PO TID PRN (Reason: muscle spasm or pain) Qty: 30 0RF oxycodone 5 mg Tablet 5 mg PO Q6H PRN (Reason: severe pain (scale score 7-10)) Qty: 20 0RF Advanced Probiotic 625 mg (10 billion cell) Capsule 1 cap PO DAILY 7 Days Qty: 7 0RF Continued (DME) CPAP Machine Mis See Rx Instructions .MEDSUPPLY Qty: 1 0RF Rx Instructions: CPAP with 7 cm H20 pressure. G47.33 (DME) CPAP Supplies Misc See Rx Instructions .MEDSUPPLY Qty: 1 0RF Rx Instructions: CPAP supplies, ResMed F20 mask, headgear, filters, tubing, water chamber. G47.33 albuterol sulfate 90 mcg/actuation HFA aerosol inhaler 2 puff INHALATION Q4H PRN (Reason: Shortness Of Breath Or Wheezing) Qty: 8.5 3RF pregabalin [Lyrica] 100 mg Capsule 100 mg PO BID cyanocobalamin (vitamin B-12) [Vitamin B-12] 1,000 mcg Tablet 1,000 mcg PO QAM aspirin 81 mg Tablet,Delayed Release (Dr/Ec) 81 mg PO QAM Qty: 30 0RF ondansetron 8 mg Tablet,Disintegrating 8 mg PO Q8H PRN (Reason: Nausea) clobetasol 0.05 % Cream 1 applic TOPICAL BID PRN (Reason: Rash) triamcinolone acetonide [Triderm] 0.1 % Cream 1 applic TOPICAL BID PRN (Reason: Rash) levalbuterol HCl 1.25 mg/3 mL solution for nebulization 1.25 mg INHALATION Q4H PRN (Reason: Wheezing) prochlorperazine maleate [Compazine] 5 mg tablet 5 mg PO Q6H PRN (Reason: NAUSEA/VOMITING) loperamide [Imodium A-D] 2 mg Tablet 4 mg PO TID PRN (Reason: Diarrhea) montelukast [Singulair] 10 mg tablet 10 mg PO HS furosemide [Lasix] 40 mg tablet 40 mg PO QAM Trelegy Ellipta 100-62.5-25 mcg blister with device 1 inh inhalation DAILY Qty: 60 0RF atorvastatin [Lipitor] 80 mg tablet 80 mg PO QAM pantoprazole [Protonix] 40 mg tablet,delayed release (DR/EC) 40 mg PO BID 30 Days Qty: 60 2RF escitalopram oxalate [Lexapro] 10 mg tablet 10 mg PO QAM metoprolol tartrate 25 mg tablet 12.5 mg PO BID Qty: 30 0RF Changed magnesium chloride [Mag 64] 64 mg tablet,delayed release (DR/EC) 64 mg PO BID Qty: 60 0RF Discontinued fluconazole 200 mg tablet 400 mg PO BID Discharge Orders: Discharge Order (Routine); Ordered 12/13/23 Ordered By: Amrik Chacon Admission Data Admit Date/Time: 12/08/23 15:57 Attending Provider: Amrik Chacon Admit Provider: Preston Garcia Primary Care Provider: Ajit Moreno Other Providers: Bradley Willis; Edenilson Andrade; Marlen Tomas; Jefferson Diggs I.; Jesús Rachel II; Janelle Olivares; Regis Rothman; Mundo Chaudhry; Margaux Delarosa; Preston Garcia; Jessie Singh; Rafiq Weaver; Jacobo Rios
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
[2023-12-13 15:19] VITALS: PULSE 59
== END 2023-12-13 16:45 | disposition home health service (06) | DRG 175 ==
LOC: ED 11:58 → 2E 15:57 → SUATTDRO 15:57 → 2E 17:52

== ENCOUNTER 2024-02-03 23:49 | Inpatient (IN) ==
--- NOTE | 2024-02-04 00:04 | Emergency Department Note ---
Impression & Plan Chest pain, SOB (shortness of breath), Acute exacerbation of chronic obstructive pulmonary disease (COPD), Hypotension ED Provider Note ED Provider Note NAME: ANGELES BURLESON AGE:68 SEX: Male : 1955 ARRIVES VIA: EMS INFORMANT: Patient ED PROVIDER(s): Francy Rushing DO CHIEF COMPLAINT: Chest pain, shortness of breath HPI: This is a 68-year-old male presents emergency department with complaining of chest pain and shortness of breath that began between 5 and 5:30 PM this evening. Patient states pain is along the lower portion of his chest and runs from the left to the right. He states is otherwise nonradiating. He does have accompanying shortness of breath. He did try taking Tylenol at home as well as using his inhaler without any improvement. Patient states he does have a history of COPD and does continue to smoke. He does follow with pulmonology. He states he has no heart problems and has never had a heart attack. He denies any recent leg swelling. He states he was recently given antibiotics and steroids due to weight worsening cough and presumption of COPD exacerbation, no chest x-ray done at that time. He denies any other known sick contacts. He does wear oxygen at night. presented to bedside then and states that he has been eating hot peppers recently and had a very spicy meal before all this started. Patient denied history of GERD however contradicts this stating he does have a history of GERD and takes a daily medication for this. states he does have a history of GERD and takes the medication daily. PAST MEDICAL HISTORY:See Below PAST SURGICAL HISTORY:See Below FAMILY HISTORY:See Below SOCIAL HISTORY:See Below HOME MEDICATIONS:See Below ALLERGIES:See Below VITALS:See Below PHYSICAL EXAMINATION: GENERAL: alert, well appearing, well nourished, no distress, non-toxic EYE EXAM: normal conjunctiva, PERRL and EOM's grossly intact OROPHARYNX: no exudate, no erythema, lips, buccal mucosa, and tongue normal and mucous membranes are moist NECK: supple, no nuchal rigidity, no adenopathy, non-tender LUNGS: Clear to auscultation. Normal chest wall mechanics, no w/r/r HEART: no murmurs, S1 normal and S2 normal ABDOMEN: abdomen soft, non-tender, normo-active bowel sounds, no masses, no rebound or guarding. BACK: Back is symmetrical on inspection and there is no deformity, no midline tenderness, no CVA tenderness. SKIN: no rashes, petechiae, orbruising UPPER EXTREMITIES: upper extremities are grossly normal. FROM, nml pulses b/l. LOWER EXTREMITIES: No pitting edema. FROM, nml pulses b/l. NEURO EXAM: Normal sensorium, cranial nerves II-XII grossly intact, normal speech, no facial droop,nogross weakness of arms, no gross weakness of legs. Gross sensation intact. No ataxia. Vital Signs: reviewed and remarkable Differential Diagnosis: acute coronary syndrome, pericarditis, pulmonary embolus, aortic dissection, pneumonia, pneumothorax, musculoskeletal pain, shingles, GERD, GI bleed, as well as others were considered MEDICAL DECISION MAKING: This is a 68-year-old male presents to the emergency department due to concern for chest pain and shortness of breath. Patient afebrile on arrival and noted to be hypotensive, mild tachycardia also noted. He was maintaining his oxygenation but did have increased work of breathing on exam. Labs drawn and sent, IV established, EKG and chest ray performed at bedside and interpreted by me and patient monitored on telemetry. Patient given a DuoNeb here initially and started on IV fluids. He was given IV Tylenol, IV famotidine, IV Pepcid, and IV magnesium. Patient states he has not missed or skipped any doses of his blood thinner. Upon family presenting to bedside additionally they report that he has eaten a lot of spicy foods recently and does have a history of reflux. Patient required a second liter of IV fluids did have some improvement. Labs and imaging reassuring. Due to persistent hypotension, blood cultures, lactic acid and procalcitonin added. Patient just finished antibiotics and steroids earlier this week for possible COPD exacerbation. Another DuoNeb treatment was added as patient still had wheezing at bedside although his work of breathing was improved. Patient sent for CT of the chest additionally. No evidence of dissection, PE, pericardial effusion, pulmonary edema, or occult pneumonia noted. Patient given third liter of IV fluids and was waiting to hold improved pressures with systolics over 100. He was maintaining his MAP greater than 65 otherwise a low suspicion for occult infection given reassuring labs. No other significant ectopy or dysrhythmia noted. Patient was given low-dose fentanyl additionally and eventually oral Maalox for possible GERD. Patient given another DuoNeb and eventually an additional albuterol neb due to persistent wheezing. A second bag of magnesium was also given for repletion due to hypomagnesemia. Nasal swab for acute viral illness negative. Patient began to lay on his side and blood pressures began to drop, I feel this is positional as patient has had no further tachycardia, no worsening chest pain or increased difficulty breathing. He was continued on maintenance IV fluids and case discussed with the hospitalist team for additional evaluation and management. I suspect his chest pain is more likely GI in origin which may have exacerbated his underlying COPD and that his hypotension is due to minimal water intake on a chronic basis. No other symptoms to suggest acute vascular emergency, no evidence of cardiac tamponade, perforation, or GI bleed. I do not suspect sepsis. Consultation(s): 512: Discussed with Dr. Calderon, [facility] hospitalist team, for additional evaluation and management. ER Treatment Provided: See below Diagnostics Interpreted By Me: -ECG: Sinus tachycardia 114, normal axis, normal intervals, no acute ST/T wave -Cardiac Monitoring: An order was placed for continuous cardiac monitoring. The monitor shows a rate of 103 with sinus tachycardia rhythm. -Laboratory studies: As stated above and show below. -Imaging studies: X-ray Chest: A single view study of the chest was reviewed and was negative for cardiomegaly, focal infiltrate, effusion, pulmonary edema, or wide mediastinum. Triage Nursing Note Reviewed Prior/Outside Records Reviewed -cardiology note from December 13, 2023 during his admission Critical Care: Critical care of 52 min performed to assess and manage high likelihood of life-threatening hypotension and chest pain, involving labs and imaging performed with assessment to evaluate hypotension and chest pain diagnosis with frequent reassessment. This time includes bedside time, treatment discussions with patient/family/consultants, documentation time and excludes procedure time. Past Med/Surg History Problem List (Updated 02/04/24 @ 04:51 by Francy Rushing DO) Hypotension (Acute) Acute exacerbation of chronic obstructive pulmonary disease (COPD) (Acute) SOB (shortness of breath) (Acute) Chest pain (Acute) Nonsustained ventricular tachycardia Right elbow pain Hypomagnesemia (Acute) COPD (chronic obstructive pulmonary disease) (Acute) Pulmonary embolism (Acute) Olecranon bursitis, right elbow Acute exacerbation of chronic obstructive pulmonary disease (COPD) (Acute) 10/09/23-10/11/23 admission Acute on chronic hypoxic respiratory failure (Acute) 10/09/23-10/11/23 admission COPD exacerbation Type 2 diabetes mellitus Septic arthritis of elbow, right Elevated LFTs Thrombus of aorta (Acute) Current smoker Chronic bronchitis COPD with emphysema Multiple pulmonary nodules Pulmonary nodule seen on imaging study Compression fracture of L5 vertebra Closed fracture of radial head (Acute) Closed compression fracture of lumbar vertebra (Acute) Nasal polyp Acquired deviated nasal septum (Acute) Arthritis (Acute) Cervical radiculopathy (Acute) Chronic post-thoracotomy pain (Acute) Chronic sinusitis (Acute) Hypertrophy of nasal turbinates (Acute) Obesity (Acute) Post-nasal drip Chronic - stable Tobacco abuse Viral upper respiratory illness hx HLD (hyperlipidemia) (Chronic) TAYLOR (obstructive sleep apnea) Cannot tolerate device Anxiety (Chronic) Neuropathy (Chronic) GERD (gastroesophageal reflux disease) (Chronic) Well controlled and stable Diaphragmatic hernia (Chronic) Thoracic spinal stenosis (Chronic) Hypertension (Chronic) Medical History Hyperglycemia Ha1c 6.2% 10/10/23 labs; no mention of DMII by PCP Cigarette smoker Obesity 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 Saw vascular: started on [id number] and Eliquis. Eliquis was then D/C by pulmonary 04/2023. Pt had normal f/u chest CTA 06/20/23 Irregular cardiac rhythm pt noted to have 25beats of Nonsustained VTach vs PAT day of discharge (08/09/23) [facility]; pt denied sx; started on metoprolol and ordered Zio monitor and Cardio referral Peripheral vascular disease Chronic diastolic heart failure PCP monitoring; ECHO 10/03/23 with nl EF and Gr I DD. 'no changes to medications needed at this time. Continue lasix daily' per PCP Chronic back pain "hx broken back"no back surgery Arthritis GERD (gastroesophageal reflux disease) Hx pulmonary embolism 2016 developed after a bad fall (was on coumadin for 1 year) Cardiac murmur no significant valve disease per 10/03/23 ECHO Hypertension Hyperlipidemia Chronic obstructive pulmonary disease 'group D' per pulm. Pt admitted [facility] for COPD exacerbation 10/08-10/11/23; admitted [facility] for COPD exacerbation (also had COVID at the time): 09/22- 09/25/23; admitted for COPD exacerbation 05/17-05/21/23 Asthma required rescue inhaler "just the other day" Chronic respiratory failure On oxygen at night in the past - but no longer needs per patient . Per 10/18/23 PCP note, 'pt stable from a respiratory standpoint' Hx of migraines Sleep apnea 2L O2 HS (no other device) History of COVID-19 Admitted [facility] 09/22-09/25/23 COVID+ and COPD exacerbation; pt states no longer having COVID sx Pneumothorax Hx- complication from pain injection- resolved Histoplasmosis 2002- treated Surgical History H/O hernia repair History of esophagogastroduodenoscopy (EGD) Hx of colonoscopy History of open reduction and internal fixation (ORIF) procedure right shoulder History of total replacement of left shoulder joint History of sinus surgery History of placement of chest tube History of hand surgery right/left Left femoral shaft fracture Dutch placed>hardware intact H/O total hip arthroplasty left H/O elbow surgery R radial head ORIF prior to 2009; R elbow I&D 08/05/23: GA: MAC#4, ETT#7.5HiLo, Gr View 1 H/O exploratory thoracotomy "Left thoracotomy wedge biopsy of left upper lobe with excision of lesion or nodule & frozen section 2002" H/O hernia repair [facility] incarcerated supraumbilical hernia repair open no mesh 02/17/01 Family History Father Heart disease Hypertension Brother Heart disease Cancer Hypertension Stroke Mother Cancer Other Leukemia No family history of adverse response to anesthesia No family history of bleeding disorder Non-Hodgkin lymphoma Denies family history of Hearing loss Asthma Social History Smoking Status: Current every day smoker Tobacco Type: Cigarettes Age Started Using Tobacco: 11; packs per day: 1; Cigarettes Per Day: 10 cig daily>advised; Second Hand Exposure: No; Do You Dip or Chew Tobacco: No; Hx Alcohol Use: No Hx Substance Use: No Preferred Language: Latvian Communication Ability: Effective Shipping Agent Required: No Beliefs That Will Affect Care: None marital status: Current Living Situation: Spouse current occupational status: unemployed Feels Safe at Home: Yes Assistive Devices: Oxygen - at Night Allergies Allergies Allergy/AdvReac Type Severity Reaction Status Date / Time No Known Allergies Allergy Verified 12/08/23 15:18 Home Meds Home Medications Medication Instructions Recorded Confirmed albuterol sulfate 90 mcg/actuation 2 puff inhalation Q4H PRN 02/04/24 02/04/24 aerosol inhaler Shortness Of Breath Or Wheezing apixaban 5 mg tablet (Eliquis) 5 mg PO BID 02/04/24 02/04/24 aspirin 81 mg tablet,delayed 81 mg PO DAILY 02/04/24 02/04/24 release cyanocobalamin (vitamin B-12) 1,000 mcg PO DAILY 02/04/24 02/04/24 1,000 mcg tablet cyclobenzaprine 5 mg tablet 5 mg PO TID PRN muscle spasms 02/04/24 02/04/24 escitalopram oxalate 10 mg tablet 10 mg PO DAILY 02/04/24 02/04/24 fluticasone fur. 200 mcg-umeclid 1 inh inhalation DAILY 02/04/24 02/04/24 62.5 mcg-vilant 25 mcg inhalat.powder (Trelegy Ellipta) furosemide 40 mg tablet 40 mg PO DAILY 02/04/24 02/04/24 levalbuterol HCl 1.25 mg/3 mL 1.25 mg inhalation Q4H PRN 02/04/24 02/04/24 solution for nebulization Shortness Of Breath Or Wheezing loperamide 2 mg tablet 4 mg PO TID PRN Diarrhea 02/04/24 02/04/24 lorazepam 0.5 mg tablet 0.5 mg PO Q6H PRN Agitation 02/04/24 02/04/24 magnesium chloride 64 mg 64 mg PO BID 02/04/24 02/04/24 (magnesium chloride) tablet,delayed release metoprolol tartrate 25 mg tablet 12.5 mg PO BID 02/04/24 02/04/24 montelukast 10 mg tablet 10 mg PO DAILY 02/04/24 02/04/24 oxycodone 5 mg tablet 5 mg PO Q6H PRN Pain 02/04/24 02/04/24 pantoprazole 40 mg tablet,delayed 40 mg PO DAILY 02/04/24 02/04/24 release pregabalin 100 mg capsule 100 mg PO BID 02/04/24 02/04/24 Results & Data (ED) Vital Signs Vital Signs - 24 hr 02/03/24 23:59 02/03/24 23:59 02/04/24 00:00 Temperature 37.8 C H Temperature Source Axillary Pulse Rate 113 H 118 H Pulse Rate from SpO2 Sensor Respiratory Rate 22 Respiratory Effort / Characteristics Spontaneous Respiratory Depth Deep Deep Blood Pressure 90/67 L Blood Pressure Mean 74 Pulse Oximetry 94 Oxygen Delivery Method Nasal Cannula Oxygen Flow Rate 2 Sepsis Recent Fever Within 48 Hours Yes Sepsis New/Unexplained Change in Mental Status No Sepsis Action Taken by Nursing Physician Notified Oxygen Flow Rate - Titration 02/04/24 00:00 02/04/24 00:33 02/04/24 00:34 Temperature Temperature Source Pulse Rate 113 H 99 H Pulse Rate from SpO2 Sensor 102 H Respiratory Rate 23 19 Respiratory Effort / Characteristics Respiratory Depth Blood Pressure 90/60 L 73/52 L 65/52 L Blood Pressure Mean 70 59 53 Pulse Oximetry 95 Oxygen Delivery Method Nebulizer Oxygen Flow Rate 9 Sepsis Recent Fever Within 48 Hours Sepsis New/Unexplained Change in Mental Status Sepsis Action Taken by Nursing Oxygen Flow Rate - Titration 02/04/24 00:39 02/04/24 00:45 02/04/24 01:30 Temperature Temperature Source Pulse Rate 100 H 94 H 88 Pulse Rate from SpO2 Sensor 100 H Respiratory Rate 22 22 20 Respiratory Effort / Characteristics Respiratory Depth Blood Pressure 81/55 L 95/51 L 91/76 L Blood Pressure Mean 63 68 79 Pulse Oximetry 96 94 96 Oxygen Delivery Method Nasal Cannula Nasal Cannula Nasal Cannula Oxygen Flow Rate 2 2 2 Sepsis Recent Fever Within 48 Hours Sepsis New/Unexplained Change in Mental Status Sepsis Action Taken by Nursing Oxygen Flow Rate - Titration 02/04/24 01:45 02/04/24 02:00 02/04/24 02:30 Temperature Temperature Source Pulse Rate 89 93 H 96 H Pulse Rate from SpO2 Sensor 94 H 97 H Respiratory Rate 21 29 H 24 Respiratory Effort / Characteristics Respiratory Depth Blood Pressure 101/61 112/57 L 65/41 L Blood Pressure Mean 66 75 49 Pulse Oximetry 99 100 95 Oxygen Delivery Method Oxygen Flow Rate Sepsis Recent Fever Within 48 Hours Sepsis New/Unexplained Change in Mental Status Sepsis Action Taken by Nursing Oxygen Flow Rate - Titration 02/04/24 03:00 02/04/24 03:16 02/04/24 03:31 Temperature Temperature Source Pulse Rate 95 H 100 H Pulse Rate from SpO2 Sensor Respiratory Rate 20 28 H Respiratory Effort / Characteristics Respiratory Depth Blood Pressure 90/49 L 90/52 L Blood Pressure Mean 66 58 Pulse Oximetry 93 94 95 Oxygen Delivery Method Nebulizer Nasal Cannula Oxygen Flow Rate 8 2 Sepsis Recent Fever Within 48 Hours Sepsis New/Unexplained Change in Mental Status Sepsis Action Taken by Nursing Oxygen Flow Rate - Titration 2 02/04/24 03:45 02/04/24 04:00 02/04/24 04:01 Temperature Temperature Source Pulse Rate 112 H 103 H 100 H Pulse Rate from SpO2 Sensor Respiratory Rate 22 24 Respiratory Effort / Characteristics Respiratory Depth Blood Pressure 91/60 L 98/64 L Blood Pressure Mean 75 80 Pulse Oximetry 97 96 Oxygen Delivery Method Nasal Cannula Nasal Cannula Oxygen Flow Rate 2 2 Sepsis Recent Fever Within 48 Hours Sepsis New/Unexplained Change in Mental Status Sepsis Action Taken by Nursing Oxygen Flow Rate - Titration 02/04/24 04:20 02/04/24 04:30 02/04/24 04:45 Temperature Temperature Source Pulse Rate 103 H 98 H 102 H Pulse Rate from SpO2 Sensor Respiratory Rate 24 28 H Respiratory Effort / Characteristics Respiratory Depth Blood Pressure 96/59 L 94/56 L 97/54 L Blood Pressure Mean 65 62 68 Pulse Oximetry 93 93 95 Oxygen Delivery Method Nasal Cannula Nasal Cannula Nasal Cannula Oxygen Flow Rate 3 3 3 Sepsis Recent Fever Within 48 Hours Sepsis New/Unexplained Change in Mental Status Sepsis Action Taken by Nursing Oxygen Flow Rate - Titration 02/04/24 04:45 02/04/24 05:18 02/04/24 05:39 Temperature Temperature Source Pulse Rate 106 H 103 H 103 H Pulse Rate from SpO2 Sensor Respiratory Rate 26 H 26 H 26 H Respiratory Effort / Characteristics Respiratory Depth Blood Pressure 97/54 L 115/59 L 103/58 L Blood Pressure Mean 65 70 73 Pulse Oximetry 98 98 95 Oxygen Delivery Method Nasal Cannula Nasal Cannula Nasal Cannula Oxygen Flow Rate 3 3 3 Sepsis Recent Fever Within 48 Hours Sepsis New/Unexplained Change in Mental Status Sepsis Action Taken by Nursing Oxygen Flow Rate - Titration 02/04/24 05:45 02/04/24 05:57 02/04/24 06:15 Temperature Temperature Source Pulse Rate 103 H 100 H 105 H Pulse Rate from SpO2 Sensor Respiratory Rate 31 H 26 H 20 Respiratory Effort / Characteristics Respiratory Depth Blood Pressure 95/57 L 95/57 L 89/54 L Blood Pressure Mean 69 69 65 Pulse Oximetry 94 93 93 Oxygen Delivery Method Nasal Cannula Nasal Cannula Nasal Cannula Oxygen Flow Rate 3 3 3 Sepsis Recent Fever Within 48 Hours Sepsis New/Unexplained Change in Mental Status Sepsis Action Taken by Nursing Oxygen Flow Rate - Titration 02/04/24 06:38 02/04/24 06:45 02/04/24 06:55 Temperature Temperature Source Pulse Rate 101 H Pulse Rate from SpO2 Sensor Respiratory Rate 26 H Respiratory Effort / Characteristics Respiratory Depth Blood Pressure 87/45 L 80/47 L 87/45 L Blood Pressure Mean 63 61 56 Pulse Oximetry 92 Oxygen Delivery Method Nasal Cannula Oxygen Flow Rate 3 Sepsis Recent Fever Within 48 Hours Sepsis New/Unexplained Change in Mental Status Sepsis Action Taken by Nursing Oxygen Flow Rate - Titration 02/04/24 06:58 02/04/24 07:00 02/04/24 07:15 Temperature 36.9 C Temperature Source Oral Pulse Rate 94 H Pulse Rate from SpO2 Sensor Respiratory Rate 22 Respiratory Effort / Characteristics Respiratory Depth Blood Pressure 90/46 L 88/44 L Blood Pressure Mean 61 63 Pulse Oximetry 93 Oxygen Delivery Method Nasal Cannula Oxygen Flow Rate 3 Sepsis Recent Fever Within 48 Hours Sepsis New/Unexplained Change in Mental Status Sepsis Action Taken by Nursing Oxygen Flow Rate - Titration 02/04/24 07:45 02/04/24 08:08 02/04/24 08:09 Temperature Temperature Source Pulse Rate 92 H 93 H 92 H Pulse Rate from SpO2 Sensor 93 H Respiratory Rate 26 H 27 H Respiratory Effort / Characteristics Respiratory Depth Blood Pressure 96/48 L 92/63 L Blood Pressure Mean 55 72 Pulse Oximetry 92 93 Oxygen Delivery Method Nasal Cannula Oxygen Flow Rate 3 Sepsis Recent Fever Within 48 Hours Sepsis New/Unexplained Change in Mental Status Sepsis Action Taken by Nursing Oxygen Flow Rate - Titration 02/04/24 08:27 02/04/24 08:30 Temperature Temperature Source Pulse Rate 88 89 Pulse Rate from SpO2 Sensor 88 90 Respiratory Rate 25 H 29 H Respiratory Effort / Characteristics Respiratory Depth Blood Pressure 88/48 L 93/51 L Blood Pressure Mean 61 65 Pulse Oximetry 94 93 Oxygen Delivery Method Oxygen Flow Rate Sepsis Recent Fever Within 48 Hours Sepsis New/Unexplained Change in Mental Status Sepsis Action Taken by Nursing Oxygen Flow Rate - Titration Laboratory Data 02/04/24 00:01 02/04/24 00:01 Lab Results 02/04/24 02/04/24 Range/Units 00:01 03:22 WBC 11.01 H (4.8-10.8) K/ul RBC 4.68 L (4.70-6.10) M/uL Hgb 14.3 (14.0-18.0) g/dl Hct 41.4 L (42.0-52.0) % MCV 88.5 (80.0-100.0) fL MCH 30.6 (25.0-34.0) pg MCHC 34.5 (32.0-36.0) g/dL RDW Std Deviation 50.2 H (36.4-46.3) fL RDW Coeff of Jaz 15.7 H (11.5-14.5) % Plt Count 315 (130-400) K/uL MPV 10.8 (9.4-12.4) fL Immature Gran % (Auto) 0.7 % Neut % (Auto) 83.9 % Lymph % (Auto) 5.0 % [place] % (Auto) 9.4 % Eos % (Auto) 0.7 % Baso % (Auto) 0.3 % Neut # (Auto) 9.23 H (1.40-6.50) K/uL Lymph # (Auto) 0.55 L (1.20-3.40) K/uL [place] # (Auto) 1.04 H (0.11-0.59) K/uL Eos # (Auto) 0.08 (0.00-0.50) K/uL Baso # (Auto) 0.03 (0.00-0.20) K/uL Immature Gran # (Auto) 0.08 (0.01-0.20) K/uL PT 10.5 (9.0-12.0) Seconds INR 1.0 (0.9-1.1) VBG pH 7.49 H (7.36-7.41) VBG pCO2 40 (38-50) mmHg VBG pO2 35 mmHg VBG HCO3 31 mmol/L VBG O2 Saturation < 60.0 % VBG Base Excess 6.6 mEq/L Sodium 135 L (136-145) mmol/L Potassium 4.5 (3.5-5.1) mmol/L Chloride 100 (98-107) mmol/L Carbon Dioxide 28 (21-32) mmol/L Anion Gap 7 (3-11) BUN 19 (6-23) mg/dl Creatinine 1.01 (0.6-1.4) mg/dl Est Cr Clr Drug Dosing 73.7 ml/min eGFR 80.01 BUN/Creatinine Ratio 18.8 (10-20) Glucose 111 H (70-99(Fasting)) mg/dl Lactate 1.7 (0.4-2.0) mmol/L Calcium 9.4 (8.6-10.3) mg/dl Magnesium 1.4 L (1.7-2.4) mg/dl Total Bilirubin 0.4 (0.2-1.0) mg/dl AST 46 H (13-39) U/L ALT 72 H (7-52) U/L Alkaline Phosphatase 99 (34-104) U/L Troponin I High Sens 12.8 (0-20) pg/ml Total Protein 6.9 (6.0-8.3) gm/dl Albumin 3.7 (3.4-5.0) gm/dl Globulin 3.2 (2.5-4.0) gm/dl Albumin/Globulin Ratio 1.2 (0.9-2) Lipase 18 (11-82) U/L Procalcitonin 0.10 (0-0.5) ng/ml TSH 2.228 (0.300-4.500) uIu/ml Random Cortisol 16.99 mcg/dl Adenovirus (PCR) Not Detected (NotDetected) B. pertussis DNA (PCR) Not Detected (NotDetected) B.parapertussis DNA PCR Not Detected (NotDetected) C. pneumoniae DNA (PCR) Not Detected (NotDetected) Coronavirus OC43 (PCR) Not Detected (NotDetected) Coronavirus HKU1 (PCR) Not Detected (NotDetected) Coronavirus 229E (PCR) Not Detected (NotDetected) SARS-CoV-2 (PCR) Not Detected (NotDetected) Coronavirus NL63 (PCR) Not Detected (NotDetected) Human Metapneumovir PCR Not Detected (NotDetected) Influenza Type A (PCR) Not Detected (NotDetected) Influenza Type B (PCR) Not Detected (NotDetected) M. pneumoniae (PCR) Not Detected (NotDetected) Parainfluenza 1 (PCR) Not Detected (NotDetected) Parainfluenza 2 (PCR) Not Detected (NotDetected) Parainfluenza 3 (PCR) Not Detected (NotDetected) Parainfluenza 4 (PCR) Not Detected (NotDetected) RSV (PCR) Not Detected (NotDetected) Entero/Rhino (PCR) Not Detected (NotDetected) Administered Medications Sodium Chloride (Nss) 1,000 mls @ 125 mls/hr IV .Q8H YUN Stop: 02/05/24 02:44 Last Admin: 02/04/24 02:41 Dose: 125 mls/hr Documented By: KEYLA Magnesium Sulfate/Dextrose (Magnesium Sulfate / D5w) 1 gm in 100 mls @ 50 mls/hr IV Q2H YUN Stop: 02/04/24 10:44 Last Admin: 02/04/24 07:10 Dose: 50 mls/hr Documented By: TAMMY Discontinued Medications Al Hydrox/Mg Hydrox/Simethicone (Aluminum/Magnesium Susp 30 Ml Udc) 15 ml PO NOW STA Stop: 02/04/24 02:09 Last Admin: 02/04/24 02:12 Dose: 15 ml Documented By: KEYLA Albuterol (Albut/Ipratrop 3mg/0.5mg Neb 3 Ml Vial) 3 ml NEB NOW STA; Protocol Stop: 02/03/24 23:58 Last Admin: 02/04/24 00:11 Dose: 3 ml Documented By: KEYLA Albuterol (Albut/Ipratrop 3mg/0.5mg Neb 3 Ml Vial) 3 ml NEB NOW STA; Protocol Stop: 02/04/24 01:39 Last Admin: 02/04/24 01:40 Dose: 3 ml Documented By: KEYLA Albuterol (Albut/Ipratrop 3mg/0.5mg Neb 3 Ml Vial) 3 ml NEB NOW STA; Protocol Stop: 02/04/24 02:49 Last Admin: 02/04/24 03:14 Dose: 3 ml Documented By: PETEY Albuterol (Albuterol 0.083% Nebu Soln 3 Ml Vial) 2.5 mg NEB NOW STA; Protocol Stop: 02/04/24 04:35 Last Admin: 02/04/24 04:42 Dose: 2.5 mg Documented By: PETEY Fentanyl Citrate (Fentanyl Citrate Pf 100 Mcg/2 Ml Vial) 25 mcg IV NOW ONE Stop: 02/04/24 01:15 Last Admin: 02/04/24 01:18 Dose: 25 mcg Documented By: KEYLA Hydrocortisone Sodium Succinate (Hydrocortisone Sod Succinate 100 Mg/2 Ml Vial) 100 mg IV NOW STA Stop: 02/04/24 07:16 Last Admin: 02/04/24 08:04 Dose: 100 mg Documented By: TAMMY Sodium Chloride (Nss) 1,000 mls @ 999 mls/hr IV .Q1H1M ONE Stop: 02/04/24 00:57 Last Infusion: 02/04/24 00:46 Dose: Infused Documented By: Admin: 02/04/24 00:11 Dose: 999 mls/hr Documented By: KEYLA Pantoprazole Sodium (Protonix) 40 mg in 10 mls @ 5 mls/min IV NOW ONE Stop: 02/03/24 23:58 Last Admin: 02/04/24 00:11 Dose: 5 mls/min Documented By: KEYLA Magnesium Sulfate/Dextrose (Magnesium Sulfate / D5w) 1 gm in 100 mls @ 100 mls/hr IV NOW STA Stop: 02/04/24 00:57 Last Infusion: 02/04/24 01:10 Dose: Infused Documented By: Admin: 02/04/24 00:11 Dose: 100 mls/hr Documented By: KEYLA Magnesium Sulfate/Dextrose (Magnesium Sulfate / D5w) 1 gm in 100 mls @ 100 mls/hr IV NOW STA Stop: 02/04/24 01:36 Last Infusion: 02/04/24 02:27 Dose: Infused Documented By: Admin: 02/04/24 01:11 Dose: 100 mls/hr Documented By: KEYLA Sodium Chloride (Nss) 1,000 mls @ 999 mls/hr IV .Q1H1M ONE Stop: 02/04/24 01:44 Last Infusion: 02/04/24 02:05 Dose: Infused Documented By: Admin: 02/04/24 00:46 Dose: 999 mls/hr Documented By: KEYLA Sodium Chloride (Nss) 1,000 mls @ 999 mls/hr IV .Q1H1M ONE Stop: 02/04/24 01:44 Last Infusion: 02/04/24 01:38 Dose: Infused Documented By: Admin: 02/04/24 00:46 Dose: 999 mls/hr Documented By: KEYLA Famotidine (Pepcid 20mg Iv Push) 20 mg in 5 mls @ 2.5 mls/min IV NOW STA Stop: 02/04/24 01:15 Last Admin: 02/04/24 01:18 Dose: 2.5 mls/min Documented By: KEYLA Piperacillin Sod/Tazobactam Sod (Zosyn) 4.5 gm in 100 mls @ 200 mls/hr IV NOW STA; Protocol Stop: 02/04/24 08:00 Last Admin: 02/04/24 08:04 Dose: 200 mls/hr Documented By: TAMMY Ioversol (Optiray 320 125ml) 88 ml IV ONCE ONE Stop: 02/04/24 02:23 Last Admin: 02/04/24 02:23 Dose: 88 ml Documented By: SOLITARIO Ioversol (Optiray 320 100ml) 94 ml IV ONCE ONE Stop: 02/04/24 07:56 Last Admin: 02/04/24 07:56 Dose: 94 ml Documented By: DWAYNE Methylprednisolone (Methylprednisolone 125 Mg/2 Ml Vial) 60 mg IV NOW STA Stop: 02/04/24 04:51 Last Admin: 02/04/24 05:16 Dose: 60 mg Documented By: PETEY Imaging Data Radiologist's Impression: Chest X-Ray 02/03/24 23:57 EXAM: XR chest 1V portable CLINICAL HISTORY: CHEST PAIN, SOB KFK TECHNIQUE: Radiograph of chest was acquired. COMPARISON: None. FINDINGS: Left total shoulder arthroplasty implant in situ. Fibrotic changes are noted in the left lower lung zone. The remaining lungs are clear and well-expanded with no pulmonary infiltrate or pleural effusion. The cardiomediastinal silhouette is within normal limits. No acute osseous abnormality. IMPRESSION: 1. Left total shoulder arthroplasty in situ. 2. Left lower lung zone fibrotic changes. 3. No acute abnormality. Electronically signed by Jean Claude Jiang 02-04-2024 01:28 AM Chest CTA 02/04/24 02:08 EXAM: CT angio chest PE protocol CLINICAL HISTORY: substernal chest apin starting on the left and going across the diaphragm that began at 1730. Pt reports cough, chills, and feeling unwell for the past week. Pt recently completed antibiotics and predinsone but does not feel it helped. Pt does take blood thinner 2x daily. He weres 2L O2 at night. 88 ml opti 320 PW/GS TECHNIQUE: Contiguous axial images were obtained from the neck base through the upper abdomen following intravenous administration of contrast material. If IV contrast material had not been administered, the likelihood of detecting abnormalities relevant to the patient's condition would have been substantially decreased. In addition, sagittal and coronal reconstructions were performed. CT scan was performed according to ALARA (as low as reasonable achievable). COMPARISON: None. FINDINGS: The lungs show few fibrotic bands in bilateral lower lobes and lingula. Mild centrilobular and paraseptal emphysema is noted in bilateral upper lobes. No focal areas of consolidation. No pulmonary nodules are seen. The central airways are patent. There are no pleural effusions. No pneumothorax is seen. No axillary, hilar, or mediastinal adenopathy is identified. The visualized thyroid is unremarkable. The heart, aorta, and pulmonary arteries are of normal size and configuration. No pericardial effusion is identified. Imaged portions of the upper abdomen are unremarkable. Degenerative changes are noted in the visualized spine. IMPRESSION: 1. No obvious pulmonary embolism. 2. Mild centrilobular and paraseptal emphysema in bilateral upper lobes. 3. Fibrotic bands in bilateral lower lobes and lingula. Electronically signed by Jean Claude Jiang 02-04-2024 04:30 AM Abdomen/Pelvis CT 02/04/24 07:16 CT abd pelvis IV con only CLINICAL HISTORY: abd pain, hypotension TECHNIQUE: Helical axial images of the abdomen and pelvis were obtained and displayed. Automated dose lowering techniques and/or adjustment according to patient size were utilized for this exam. This exam was performed with intravenous contrast. CT DOSE: 1375.26 mGy.cm COMPARISON: Comparison is made to CT abdomen pelvis 04/04/2023 FINDINGS: Lower chest: Peripheral interstitial thickening and bronchial wall thickening is seen. Liver: Unremarkable. No focal lesions are seen. Gallbladder and biliary tree: No calcified gallstones. Normal caliber wall. No intra- or extrahepatic biliary ductal dilation. Pancreas: Unremarkable, no focal lesions. Spleen: Unremarkable. Adrenals: Unremarkable. Kidneys and ureters: Perinephric stranding is noted bilaterally. Bladder: Unremarkable. Reproductive organs: Unremarkable. Bowel: The appendix is normal. Lymph nodes Retroperitoneal: Unremarkable. Pelvic: Unremarkable. Mesenteric: Unremarkable. Peritoneum: Normal. Vessels: Atherosclerotic calcifications are seen. These are most prominent in the left common iliac artery. Abdominal wall: Left fat containing inguinal hernia. Bones: Compression deformities of L2, L4, and L5 are stable. Left trochanteric nail is stable. IMPRESSION: No acute abnormality to explain abdominal pain and hypotension. ACT 112: Negative or not required by law. Electronically signed by: Florin Soto M.D. 02/04/2024 8:21 AM Discharge Plan Visit Data Chief Complaint: Chest Pain Stated Complaint: Chest Pain, SOB ED Provider: Francy Rushing Discharge Problem: Chest pain, SOB (shortness of breath), Acute exacerbation of chronic obstructive pulmonary disease (COPD), Hypotension Forms Stand Alone Forms: mention Prescriptions Prescriptions: No Action furosemide 40 mg tablet 40 mg PO DAILY aspirin 81 mg tablet,delayed release (DR/EC) 81 mg PO DAILY lorazepam 0.5 mg tablet 0.5 mg PO Q6H PRN (Reason: Agitation) pantoprazole 40 mg tablet,delayed release (DR/EC) 40 mg PO DAILY montelukast 10 mg tablet 10 mg PO DAILY levalbuterol HCl 1.25 mg/3 mL solution for nebulization 1.25 mg inhalation Q4H PRN (Reason: Shortness Of Breath Or Wheezing) albuterol sulfate 90 mcg/actuation HFA aerosol inhaler 2 puff INHALATION Q4H PRN (Reason: Shortness Of Breath Or Wheezing) escitalopram oxalate 10 mg tablet 10 mg PO DAILY cyclobenzaprine 5 mg tablet 5 mg PO TID PRN (Reason: muscle spasms) metoprolol tartrate 25 mg tablet 12.5 mg PO BID pregabalin 100 mg capsule 100 mg PO BID Eliquis 5 mg tablet 5 mg PO BID Trelegy Ellipta 200-62.5-25 mcg blister with device 1 inh INHALATION DAILY loperamide 2 mg Tablet 4 mg PO TID PRN (Reason: Diarrhea) cyanocobalamin (vitamin B-12) 1,000 mcg Tablet 1,000 mcg PO DAILY oxycodone 5 mg Tablet 5 mg PO Q6H PRN (Reason: Pain) magnesium chloride 64 mg Tablet,Delayed Release (Dr/Ec) 64 mg PO BID Referrals Referrals: Ajit Moreno MD [Primary Care Provider] -
[2024-02-04] MEDS: PANTOprazole 40 MG/10 ML SYR IV ONE (00:11)
[2024-02-04] MEDS: ALBUT/IPRATROP 3MG/0.5MG NEB 3 ML VIAL NEB STA ×3 (00:11→03:14)
[2024-02-04] MEDS: SODIUM CHLORIDE 0.9% 1,000 ML IV ONE ×3 (00:11→00:46)
[2024-02-04] MEDS: MAGNESIUM SULFATE / D5W 1 GM/100 ML BAG IV STA ×2 (00:11→01:11)
[2024-02-04 00:12] LABS: Base Excess VBG 6.6 mEq/L; HCO3 VBG 31 mmol/L; Oxygen Saturation VBG < 60.0 %; PCO2 VBG 40 mmHg (38-50); PO2 VBG 35 mmHg; pH VBG 7.49 (7.36-7.41)
[2024-02-04 00:17] LABS: Basophils # (auto) 0.03 K/uL (0.00-0.20); Basophils % (auto) 0.3 %; Eosinophils # (auto) 0.08 K/uL (0.00-0.50); Eosinophils % (auto) 0.7 %; Hematocrit (blood only) 41.4 % (42.0-52.0); Hemoglobin 14.3 g/dl (14.0-18.0); Immature Granulocytes # (auto) 0.08 K/uL (0.01-0.20); Immature Granulocytes % (auto) 0.7 %; Lymphocytes # (auto) 0.55 K/uL (1.20-3.40); Mean Corpuscular Hemoglobin 30.6 pg (25.0-34.0); Mean Corpuscular Hgb Conc 34.5 g/dL (32.0-36.0); Mean Corpuscular Volume 88.5 fL (80.0-100.0); Mean Platelet Volume 10.8 fL (9.4-12.4); Monocytes # (auto) 1.04 K/uL (0.11-0.59); Monocytes % (auto) 9.4 %; Neutrophils # (auto) 9.23 K/uL (1.40-6.50); Neutrophils % (auto) 83.9 %; Platelet Count 315 K/uL (130-400); RDW Coefficient of Variation 15.7 % (11.5-14.5); RDW Standard Deviation 50.2 fL (36.4-46.3); Red Blood Count 4.68 M/uL (4.70-6.10); White Blood Count 11.01 K/ul (4.8-10.8)
--- OUTSIDE RECORDS SUMMARY | 2024-02-04 00:24 | External Medical Summary | Summary of Care ---
Author Name Unknown Organization [facility] Address [address] [place] [address] Phone [phone] Care Team Providers Care Global Mobility Specialist Name Role Phone Ajit Moreno MD Primary Care Provider Reason for Visit * Reason Onset Date Comments Home Health 11/03/2023 FYI 11/03/2023 Encounter Details Date Type Department Care Team (Late st Contact Info) Description 11/03/2023 [facility]phone [facility]OS[facility] - 01/26/24 [address] [place] [phone] Ajit Moreno MD [address] [place] [id number] Home Health; (/) Allergies Active Allergy Reactions Criticality Noted Date Comments Fluticasone High 02/27/2020 Other reaction(s): lightheadedness and nausea Umeclidinium High 02/27/2020 Other reaction(s): lightheadedness and nausea Vilanterol High 02/27/2020 Other reaction(s): lightheadedness and nausea documented as of this encounter (statuses as of 02/02/2024) Medications Clobetasol Propionate 0.05 % External Ointment (Temovate)Indicati ons:Stasis dermatitis of both legs Apply 2x daily to rash on legs until resolved, then as needed when flaring 60 g 08/28/19 22 Active Albuterol Sulfate HFA 108 (90 Base) MCG/ACT Inhalation Aerosol SolutionIndication s:Pulmonary emphysema, unspecified emphysema type (HCC) INHALE TWO PUFFS BY MOUTH EVERY 4 HOURS NEEDED FOR SHORTNESS OF BREATH or wheezing 8.5 g 5 09/29/19 24 Active Aspirin 81 MG Oral Tablet Chewable (Aspirin 81) Take 1 Tablet by mouth in the morning. 90 Tablet 3 4 11:10 AM EST 09/29/19 24 Active Baclofen 5 MG Oral Tablet (Lioresal) Take 1 Tablet by mouth 3 times a day as needed for Muscle spasms. 30 Tablet 3 09/29/19 24 Active Cyanocobalamin 1000 MCG Oral Tablet (Cyanocobalamin) Take 1 Tablet by mouth in the morning. 90 Tablet 3 4 11:10 AM EST 09/29/19 24 Active Escitalopram Oxalate 10 MG Oral Tablet (Lexapro)Indicatio ns:Mood swings Take 1 Tablet by mouth in the morning. 90 Tablet 3 4 8:29 AM EST 09/29/19 24 Active Levalbuterol HCl 1.25 MG/3ML Inhalation Nebulization Solution (Xopenex)Indicatio ns:COPD, group C, by GOLD 2017 classification ([facility]) Inhale 1 vial via nebulizer every 4 hours as needed for Wheezing. 75 mL 09/29/19 24 Active Loperamide HCl 2 MG Oral Tablet (Imodium A-D)Indications:Di arrhea, unspecified type Take 2 Tablets by mouth 3 times a day as needed for Diarrhea. 90 Tablet 3 09/29/19 24 Active LORazepam 0.5 MG Oral Tablet (Ativan)Indication s:Anxiety Take 1 Tablet by mouth every 6 hours as needed for Agitation. 20 Tablet 3 09/29/19 24 Active Meclizine HCl 12.5 MG Oral Tablet (Antivert)Indicati ons:Dizziness Take 1 Tablet by mouth 3 times a day as needed for Dizziness. 20 Tablet 09/29/19 24 Active Metoprolol Tartrate 25 MG Oral Tablet (Lopressor) Take 1/2 Tablet by mouth in the morning and 1/2 Tablet before bedtime. 60 Tablet 3 4 7:01 AM EST 09/29/19 24 Active Ondansetron HCl 8 MG Oral Tablet (Zofran)Indication s:Nausea without vomiting Take 1 Tablet by mouth every 8 hours as needed for Nausea. 20 Tablet 3 4 7:48 AM EDT 09/29/19 24 Active Pantoprazole Sodium 40 MG Oral Tablet Delayed Release (Protonix)Indicati ons:Gastroesophage al reflux disease with esophagitis, unspecified whether hemorrhage Take 1 Tablet by mouth in the morning and 1 Tablet before bedtime. 180 Tablet 3 4 11:10 AM EST 09/29/19 24 Active Prochlorperazine Maleate 5 MG Oral Tablet (Compazine)Indicat ions:Nausea without vomiting Take 1 Tablet by mouth every 6 hours as needed for Nausea. 30 Tablet 3 09/29/19 24 Active Additional Information Patient not taking.Reported on 01/17/2024 Nebulizer/Tubing/M outhpiece Kit Use as directed 1 Kit 5 09/29/19 24 Active Trelegy Ellipta 200-62.5-25 MCG/ACT Aerosol Powder Breath Activated (Fluticasone-Umecl idinium-Vilanterol )Indications:COPD, group C, by GOLD 2017 classification ([facility]) Inhale 1 Puff by mouth in the morning. 60 Each 10 09/29/19 24 Active Triamcinolone Acetonide 0.1 % External Ointment (Aristocort)Indica tions:Stasis dermatitis of both legs Apply 2 times a day to rash on lower legs when flaring (see printed checkout sheet) 80 g 2 09/29/19 24 Active Montelukast Sodium 10 MG Oral Tablet (Singulair) Take 1 Tablet by mouth at bedtime. 90 Tablet 3 10/03/19 24 Active Furosemide 40 MG Oral Tablet (Lasix)Indications :Bilateral lower extremity edema Take 1 Tablet by mouth in the morning for fluid accumulation or weight gain. 90 Tablet 3 4 3:05 PM EDT 10/21/19 24 Active Hospital, Clinic, or Other Facility Administered Medication Ordered Dose Route Frequency Start Date End Date Status Albuterol Sulfate (Proventil) (2.5 MG/3ML) 0.083% inhalation solution 2.5 mgIndications:COPD, group D, by GOLD 2017 classification ([facility]),Centrilobular emphysema ([facility]) 2.5 mg NEBULIZER ONCE PRN 10/03/2023 Active documented as of this encounter (statuses as of 02/02/2024) Active Problems Problem Noted Date Diagnosed Date History of pulmonary embolism 01/17/2024 Chronic heart failure with preserved ejection fr action 01/17/2024 Depression 12/30/2023 Assessment & Plan (12/31/2023 7:34 AM EST): Mood stable on current dose lexapro Has ativan for prn use Prediabetes 12/19/2023 Overview: Per Prediabetes protocol History of septic arthritis 12/16/2023 Assessment & Plan (12/31/2023 7:34 AM EST): Treatment completed and picc removed Has ID f/u next week 01/[address] Arcos Severe obesity (BMI 35.0-39.9) with comorbidity 05/27/2023 Food insecurity 05/16/2023 Overview: Per [facility] Protocol Personal history of other venous thrombosis and embolism 03/21/2023 Overview (05/24/2023): historical Assessment & Plan (12/31/2023 7:34 AM EST): On eliquis, duration lifelong Hematology appt scheduled for hypercoagulable workup Dyslipidemia, goal LDL below 70 06/01/2022 Assessment & Plan (12/31/2023 7:34 AM EST): Statin recently d/c due to myalgias and elevated LFts Repeat labs ordered already Adjustment disorder with depressed mood 06/02/19 Assessment & Plan (07/18/2023 9:48 AM EDT): Mood stable today on current dose lexapro Senile osteoporosis 06/10/2021 Pulmonary emphysema 02/01/2019 Chronic pain syndrome 09/20/2018 Assessment & Plan (07/18/2023 9:48 AM EDT): Continue lyrica Will add baclofen for prn use short term Did have interventional pain appt, but did not follow through COPD, group C, by GOLD 2017 classification 07/17 Overview: Per COPD GOLD Classification Assessment & Plan (12/31/2023 7:34 AM EST): "RED FLAG" COPD symptoms: Increased dyspnea on [...] Classes - YA Class D - Inhaled Jyfpiiyhvcbgoc-IAMQ-XZDD Combination Inhaler (Trellegy) Remote Patient Monitoring Vendor: No Connected RPM Device(s): No current devices Self-Management plan Prednisone 40mg daily for 5 days Rx Oral Antibiotic Rx (see medication list) High frequency nebulizer treatments every 4-6 hours around the clock Exacerbation plan Solumedrol 40mg IM/IV Chest Xray Additional Comments: Breathing good today Assessment & Plan (07/18/2023 9:44 AM EDT): "RED FLAG" COPD symptoms: Increased dyspnea on [...] Classes - YA Class D - Inhaled Iiasxjwjemabgr-UIMN-CDBQ Combination Inhaler (Trellegy) Remote Patient Monitoring Vendor: [...] agreement signed 02/05/2015 Obstructive sleep apnea 08/23/2014 Overview (08/23/2014): Split night pending 2002 PSG -- mild [facility] Obesity, Class I, BMI 30.0-34.9 (see actual BMI) 04/08/2011 Overview (04/08/2011): bmi= 32.58 04/08/11 Tobacco use disorder 04/08/2011 Gastroesophageal reflux disease with esophagitis 03/06/2002 Hiatal hernia 03/29/2001 documented as of this encounter (statuses as of 02/02/2024) Resolved Problems Problem Noted Date Diagnosed Date Resolved Date Depression, unspecified 11/07/202312/09 Depression, unspecified 11/07/2023 11/0 09/2023 Hyperlipidemia 03/21/2023 04/07/2023 Morbid (severe) obesity due to excess calories 03/10/2022 04/29/2022 Overview (04/29/2022): Body Mass Index: 32.94 kg/mAbnormal 1.676 m [...] MUCOSITIS 03/28/2006 ADVANCE DIRECTIVE INFORMATION 10/02/2004 09/14/2018 Overview (10/02/2004): No, Advance Directive brochure offered , patient declined. Polyneuropathy in other dise ases classified elsewhere 05/28/2004 11/15/2016 IMPOTENCE, ORGANIC ORIGN 03/26/2003 OTHER DISEASES OF LUNG, NOT ELSEWHERE CLASSIFIED 06/12/2002 09/14/2018 CHEST [id number] 04/09/200209/2018 ABN FD-INTRATHOR ORG NEC-akbar nodule 03/06/2002 09/14/2018 Abdominal pain, generalized 05/09/2001 05/30/2017 Constipation 05/09/2001 09/14/2018 Overview (05/01/2015): ICD-10 update of inactive term ROTATOR CUFF SYNDROME, BILATERAL SHOULDERS 05/09/2001 09/14/2018 BACKACHE NOS 05/09/2001 09/20/2018 Nausea 03/29/2001 10/22/2014 Overview (11/30/2016): ICD-10 update of inactive term DIZZINESS 03/29/2001 10/22/2014 Cellulitis of face 03/18/2000 8 INFEC OTITIS EXTERNA NOS 03/18/2000 DYSFUNCT EUSTACHIAN TUBE 03/18/2000 Tobacco use disorder 03/18/2000 012 OPEN WOUND, FINGER 03/18/2000 5 documented as of this encounter (statuses as of 02/02/2024) Immunizations Name Administration Dates Next Due COVID-19 mRNA, LNP-s, No Pre serve, 2-Dose Series (Pfizer) 05/22/2020,05/01/2020 Seasonal Influenza, PF, 6 M & above, IM , (FluLaval or Fluzone) 10/26/2019,12/22/2018,12/28/2017 Seasonal Influenza, Quadriva lent Hd (Fluzone Hd) 01/08/2022 documented as of this encounter Social History Tobacco Use Types Packs/Day Years Used Date Smoking Tobacco: Every Day Cigarettes 0.5 45.8 Started: 03/19/2003 Passive Smoke Exposure: Past Smokeless [...] No 04/26/2023 Does the household have a [facility] source of income? (Household - for ages [...] Recorded Sex Assigned at Not on file Legal Sex Male 7:01 AM EST Gender Identity Male 08/31/2021 1:16 PM EDT Sexual Orientation Straight 07/05/2018 9: 33 AM EDT documented as of this encounter Miscellaneous Notes * Telephone Encounter - Ajit Moreno MD - 11/04/2023 3:35 PM EDT Noted. Will follow up at upcoming appointment. Ajit Moreno MD * Telephone Encounter - Peyton Bautista LPN - 11/03/2023 4:19 PM EDT HH Admission/Start of Care Admission/Start of Care: Jackie POTTS, Calling from: [facility] Patient was Admitted to: [facility], for: right elbow olecranon bursitis and fusion of right elbow. from 10/27/23 to 11/02/23 Referral ordered by: [facility] Referral received for: Jail Planned start of care date:Yes, Date today Start of care completed on: 11/03/23 Report/Concerns of: Top of left foot red, warm to touch Symptoms: sensitive to touch Vitals: T 97.6 P 86 RR 16 BP 110/60 SP O2 94 room air Lung sounds clear Weight n/a Blood sugar n/a Narrative: Jackie calling from [facility] Patient has right upper arm Picc Line. Getting IV antibiotics. Has incision right elbow with crys. Incision looks good. Has a follow up on Tuesday. Top of Left foot is red and warm to touch. X- rayed at [facility]. It showed arthritis. Will be getting blood work weeklyfrom [facility]c [facility]. Next visit(s) on Tuesday They will call with any updates or additional concerns from the upcoming HH visit. Last Office Visit: 10/18/2023 Has patient been scheduled or seen in the office for a follow up visit: Yes- on11/07/23 Advised that orders will be signed by Dr. Moreno and to fax to the office for signature. Call back Jackie with advice or orders at [phone] Please fax orders to [facility] Home Health documented in this encounter Plan of Treatment Upcoming Encounters Date Type Department Care Team (Late st Contact Info) Description 02/10/2024 12:15 PM EST Office Visit Hematology/Oncology [facility] [address] [phone] Andrew Patel MD [address] [id number] 03/02/2024 10:00 AM EST Home Visit félix at [facility] [address] [place] [phone] Rosa Parra RN [address] [place] [id number] 03/16/2024 3:00 PM EST Office Visit Orthopaedics [facility] [address] [place] [phone] Enrique Sal MD [address] [place] [id number] 04/26/2024 3:00 PM EDT Office Visit Cardiology, [facility] [address] [place] [address] Toyin Wisdom PA-C [address] [place] [phone] 05/18/2024 2:40 PM EDT [facility] [address] [place] [phone] JuneAjit MD [address] [phone] Scheduled Procedures Name Priority Associated Diagnoses Date/Ti me COLONOSCOPY FLEXIBLE PROXIMAL DIAGNOSTIC Recall History of colon polyps Health Maintenance Due Date Last Done Comments DISCUSS TOBACCO CESSATION (REFER TO SMARTSET #5781) 1953 Alpha-1 Antitrypsin 12/04/1971 Cologuard 1998 Fecal Occult Blood Test 1998 Sigmoidoscopy 1998 *ADVANCE DIRECTIVE NOT ON FILE 07/22/2018 *BISPHONATE OR OTHER ACCEPTABLE MEDICATION NEEDED FOR OSTEOPOROSIS (REFER TO SMARTSET #1146) 06/29/2022 Adult Wellness Visit 03/11/2023 03/11/2022, 08/31/2021, 08/26/2020 COVID-19 Vaccine ( - season) 2023 05/22/2020, 05/01/2020 Influenza Vaccine (FLU shot) (#1) 2023 01/08/2022, 10/26/2019, 12/22/2018, Additional history exists Depression Monitoring 04/07/2024 04/08/2023 DTap/Tdap Vaccines (1 - Tdap) 08/14/2024 Postponed from 1972 (Patient Declined After Education) Pneumococcal Vaccine: 50+ Years (1 of 2 - PCV) 08/14/2024 Postponed from 1972 (Patient Declined After Education) Zoster Vaccines (1 of 2) 08/14/2024 Pos tponed from 12/04/2003 (Patient Declined After Education) DXA Scan 10/02/2024 10/14/2020 Postponed from 10/14/2022 (Patient Declined After Education) HbA1c 12/14/2024 12/15/2023, 03/15/2008 O2 ASSESSMENT COMPLETED IN PAST YEAR FOR COPD 01/16/2025 01/17/2024 Colonoscopy 03/18/2026 03/18/2021, /0 10/2021, 12/18/2019, Additional history exists Colorectal Cancer Screening 03/18/2026 Hepatitis C Screening Completed 05/31/2017 , 08/07/2015, 05/03/2014 RETIRED - COLONOSCOPY-ANNUAL AGES 18-100 Discontinued 03/18/2021, 03/18/2021, 12/18/2019, Additional history exists RETIRED - COLONOSCOPY-EVERY 5 YRS AGES 18-100 Discontinued 03/18/2021, 03/18/2021, 12/18/2019, Additional history exists VITAMIN D LEVEL ONCE IN A LIFETIME-USE SMARTSET# [id number] Completed 06/16/2021, 05/03/2014 AAA Screening Completed 09/24/2022, [...] 9:12 AM 05/09/2003 10:12 AM Care Teams Global Mobility Specialist Relationship Specialty Start Date End Date June, Ajit Sylvester MD PCP - General Family Medicine 03/11/22 documented as of this encounter
--- OUTSIDE RECORDS SUMMARY | 2024-02-04 00:25 | External Medical Summary | Summary of Care ---
Author Name Unknown Organization [facility] Address [address] [place] [address] Phone [phone] Care Team Providers Care Rubber Block Layer Name Role Phone Henry Bush MD Primary Care Provider [phone] Reason for Visit * Reason Onset Date Comments Medication Problem 01/13/2024 Encounter Details Date Type Department Care Team (Late st Contact Info) Description 01/13/2024 Telephone [facility] [address] [place] [address] Henry Bush MD [address] [place] [address] Medication Problem Allergies Active Allergy Reactions Criticality Noted Date Comments Fluticasone High 02/27/2020 Other reaction(s): lightheadedness and nausea Umeclidinium High 02/27/2020 Other reaction(s): lightheadedness and nausea Vilanterol High 02/27/2020 Other reaction(s): lightheadedness and nausea documented as of this encounter (statuses as of 01/16/2024) Medications Clobetasol Propionate 0.05 % External Ointment (Temovate)Indicat ions:Stasis dermatitis of both legs Apply 2x daily to rash on legs until resolved, then as needed when flaring 60 g 08/28/19 22 Active Albuterol Sulfate HFA 108 (90 Base) MCG/ACT Inhalation Aerosol SolutionIndicatio ns:Pulmonary emphysema, unspecified emphysema type (HCC) INHALE TWO [...] Active Escitalopram Oxalate 10 MG Oral Tablet (Lexapro)Indicati ons:Mood swings Take 1 Tablet by mouth in the morning. 90 Tablet 3 4 10:04 AM EDT 09/29/19 24 Active Levalbuterol HCl 1.25 MG/3ML Inhalation Nebulization Solution (Xopenex)Indicati ons:COPD, group C, by GOLD 2017 classification ([facility]) Inhale 1 vial via nebulizer every 4 hours as needed for Wheezing. 75 mL 09/29/19 24 Active Loperamide HCl 2 MG Oral Tablet (Imodium A-D)Indications:D iarrhea, unspecified type Take 2 Tablets by mouth 3 times a day as needed for Diarrhea. 90 Tablet 3 09/29/19 24 Active LORazepam 0.5 MG Oral Tablet (Ativan)Indicatio ns:Anxiety Take 1 Tablet by mouth every 6 hours as needed for Agitation. 20 Tablet 3 09/29/19 24 Active Meclizine HCl 12.5 MG Oral Tablet (Antivert)Indicat ions:Dizziness Take 1 Tablet by mouth 3 times a day as needed for Dizziness. 20 Tablet 09/29/19 24 Active Metoprolol Tartrate 25 MG Oral Tablet (Lopressor) Take 1/2 Tablet by mouth in the morning and 1/2 Tablet before bedtime. 60 Tablet 3 4 7:01 AM EST 09/29/19 24 Active Ondansetron HCl 8 MG Oral Tablet (Zofran)Indicatio ns:Nausea without vomiting Take 1 Tablet by mouth every 8 hours as needed for Nausea. 20 Tablet 3 4 7:48 AM EDT 09/29/19 24 Active Pantoprazole Sodium 40 MG Oral Tablet Delayed Release (Protonix)Indicat ions:Gastroesopha geal reflux disease with esophagitis, unspecified whether hemorrhage Take 1 Tablet by mouth in the morning and 1 Tablet before bedtime. 180 Tablet 3 4 11:10 AM EST 09/29/19 24 Active predniSONE 20 MG Oral Tablet (Deltasone) Take 2 Tablets by mouth daily as needed for copd exacerbation for 5 days when directed 10 Tablet 3 4 6:57 AM EDT 09/29/19 24 Active Additional Information Patient not taking.Reported on 12/28/2023 Prochlorperazine Maleate 5 MG Oral Tablet (Compazine)Indica tions:Nausea without vomiting Take 1 Tablet by mouth every 6 hours as needed for Nausea. 30 Tablet 3 09/29/19 24 Active Additional Information Patient not taking.Reported on 10/21/2023 Nebulizer/Tubing/ Mouthpiece Kit Use as directed 1 Kit 5 09/29/19 24 Active Trelegy Ellipta 200-62.5-25 MCG/ACT Aerosol Powder Breath Activated (Fluticasone-Umec lidinium-Vilanter ol)Indications:CO PD, group C, by GOLD 2017 classification ([facility]) Inhale 1 Puff by mouth in the morning. 60 Each 10 09/29/19 24 Active Triamcinolone Acetonide 0.1 % External Ointment (Aristocort)Indic ations:Stasis dermatitis of both legs Apply 2 times a day to rash on lower legs when flaring (see printed checkout sheet) 80 g 2 09/29/19 24 Active guaiFENesin-Codei ne 100-10 MG/5ML Oral Syrup (Robitussin AC)Indications:Ch ronic cough Take 5 mL by mouth every 4 hours as needed for Cough. 120 mL 09/29/19 24 Active Additional Information Patient not taking.Reported on 12/28/2023 Montelukast Sodium 10 MG Oral Tablet (Singulair) Take 1 Tablet by mouth at bedtime. 90 Tablet 3 10/03/19 24 Active Furosemide 40 MG Oral Tablet (Lasix)Indication s:Bilateral lower extremity edema Take 1 Tablet by mouth in the morning for fluid accumulation or weight gain. 90 Tablet 3 4 3:05 PM EDT 10/21/19 24 Active Azithromycin 250 MG Oral Tablet (Zithromax)Indica tions:COPD, group D, by GOLD 2017 classification (HCC) take two tablets by mouth on day one, then one tablet on days two through five as needed for copd rescue 6 Tablet 4 7:34 AM EDT 10/26/19 24 Active Additional Information Patient not taking.Reported on 12/28/2023 Magnesium Chloride 64 MG Oral Tablet Delayed Release (Mag-64)Indicatio ns:Hospital discharge follow-up Take 2 Tablets by mouth in the morning. 180 Tablet 1 11/07/19 24 Active Additional Information Patient taking differently:128 mg OralBID (.AM/PM), Reported on 12/28/2023 Probiotic Acidophilus Oral CapsuleIndication s:Hospital discharge follow-up Take 1 Capsule by mouth in the morning. 30 Capsule 1 11/07/19 24 Active Vancomycin IVPB injection Administer 262.5 mL intravenously in the morning and 262.5 mL before bedtime. Active Caspofungin Acetate 50 MG Intravenous Solution Reconstituted (Cancidas) Administer 50 mg intravenously in the morning. Active oxyCODONE HCl 10 MG Oral Tablet (Roxicodone) Take 1 Tablet by mouth every 6 hours as needed for Pain, Breakthrough. Active Cyclobenzaprine HCl 5 MG Oral Tablet (Flexeril) Take 1 Tablet by mouth 3 times a day as needed for Muscle spasms. Active Pregabalin 100 MG Oral Capsule (Lyrica)Indicatio ns:Chronic pain syndrome Take 1 Capsule by mouth in the morning and 1 Capsule before bedtime. 60 Capsule 2 4 11:10 AM EST 01/09/20 24 Active Apixaban 5 MG Oral Tablet (Eliquis)Indicati ons:History of pulmonary embolism Take 1 Tablet by mouth in the morning and 1 Tablet before bedtime. 180 Tablet 3 01/16/20 24 Active Apixaban 5 MG Oral Tablet (Eliquis) Take 1 Tablet by mouth in the morning and 1 Tablet before bedtime. 10mg twice a day for 7 days then 5mg twice a day thereafter. 024 Discontin ued(Refil l) Hospital, Clinic, or Other Facility Administered Medication Ordered Dose Route Frequency Start Date End Date Status Albuterol Sulfate (Proventil) (2.5 MG/3ML) 0.083% inhalation solution 2.5 mgIndications:COPD, group D, by GOLD 2017 classification ([facility]),Centrilobular emphysema (HCC) 2.5 mg NEBULIZER ONCE PRN 10/03/2023 Active documented as of this encounter (statuses as of 01/16/2024) Active Problems Problem Noted Date Diagnosed Date Depression 12/30/2023 Assessment & Plan (12/31/2023 7:34 [...] Classes - YA Class D - Inhaled Nnltczuomuvwfj-OKTG-ZVOS Combination Inhaler (Trellegy) Remote Patient Monitoring Vendor: [...] Classes - YA Class D - Inhaled Jhmzpvanhxkqjd-ZRFM-BWDS Combination Inhaler (Trellegy) Remote Patient Monitoring Vendor: [...] as of this encounter (statuses as of 01/16/2024) Resolved Problems Problem Noted Date Diagnosed Date [...] LUNG, NOT ELSEWHERE CLASSIFIED 06/12/2002 09/14/2018 CHEST [id number] 04/09/200209/2018 ABN FD-INTRATHOR ORG NEC-akbar nodule 03/06/2002 [...] as of this encounter (statuses as of 01/16/2024) Immunizations Name Administration Dates Next Due COVID-19 mRNA, LNP-s, No Pre serve, 2-Dose Series (Pfizer) 05/22/2020,05/01/2020 Seasonal Influenza, PF, 6 M & above, IM , (FluLaval or Fluzone) 10/26/2019,12/22/2018,12/28/2017 Seasonal Influenza, Quadriva lent Hd (Fluzone Hd) 01/08/2022 documented as of this encounter Social History Tobacco Use Types Packs/Day Years Used Date Smoking Tobacco: Every Day Cigarettes 0.5 45.7 Started: 03/19/2003 Passive Smoke Exposure: Past Smokeless [...] Telephone Encounter - Henry Bush MD - 01/16/2024 5:42 PM ESTSigned Prescriptions: Disp Refills Apixaban 5 MG Oral Tablet (Eliquis) 180 Ta*3 Sig: Take 1 Tablet by mouth in the morning and 1 Tablet before bedtime.Authorizing Provider: HENRY BUSH * Addendum Note - Henry Bush MD - 01/16/2024 5:42 PM ESTAddended by: HENRY BUSH on: 01/16/2024 05:42 PM Modules accepted: Orders * Addendum Note - Kathy Eddy LPN - 01/16/2024 9:17 AM ESTAddended by: KATHY EDDY on: 01/16/2024 09:17 AM Modules accepted: Orders * Telephone Encounter - Kathy Eddy LPN - 01/16/2024 9:16 AM EST Order is pended please sign if agreeable. * Telephone Encounter - Mayi Chau christmas bell ringer - 01/13/2024 3:12 PM EST Pt is requesting a refill a blood thinner He has no idea what the name is He said it is not plavix Please advise Thank you for your assistance Mayi Chau Desktop Publisher II [facility] 01/13/2024,3:14 PM documented in this encounter Plan of Treatment Upcoming Encounters Date Type Department Care Team (Late st Contact Info) Description 01/17/2024 1:00 PM EST Office Visit [facility] [address] [place] [phone] June, Henry Sylvester MD [address] [place] [address] 04/26/2024 3:00 PM EDT Office Visit Cardiology, [facility] [address] [facility] [place] [address] Toyin Wisdom PA-C [address] [place] [address] Scheduled Procedures Name Priority Associated Diagnoses Date/Ti me COLONOSCOPY FLEXIBLE PROXIMAL DIAGNOSTIC Recall History of colon polyps Health Maintenance Due Date Last Done Comments DISCUSS TOBACCO CESSATION (REFER TO SMARTSET #0551) 1955 Alpha-1 Antitrypsin 12/04/1971 Cologuard 1998 Fecal [...] ASSESSMENT COMPLETED IN PAST YEAR FOR COPD 12/29/2024 12/30/2023 Colonoscopy 03/18/2026 03/18/2021, 02/0 10/2021, 12/18/2019, Additional history exists Colorectal Cancer Screening 03/18/2026 Hepatitis C Screening Completed 05/31/2017 , 08/07/2015, 05/03/2014 RETIRED - COLONOSCOPY-ANNUAL AGES 18-100 Discontinued 03/18/2021, 03/18/2021, 12/18/2019, Additional history exists RETIRED - COLONOSCOPY-EVERY 5 YRS AGES 18-100 Discontinued 03/18/2021, 03/18/2021, 12/18/2019, Additional history exists VITAMIN D LEVEL ONCE IN A LIFETIME-USE SMARTSET# [id number] Completed 06/16/2021, 05/03/2014 AAA Screening Completed 09/24/2022, [...] COPD, group C, by GOLD 2017 classification ([facility])- Primary Chronic pain syndrome Adjustment disorder with depressed mood Advanced care planning/counseling discussion Other specified counseling COPD, group C, by GOLD 2017 classification ([facility])- Primary Depression, unspecified depression type Dyslipidemia, goal LDL below 70 Other and unspecified hyperlipidemia Personal history of other venous thrombosis and embolism History of septic arthritis Personal history of arthritis Advanced care planning/counseling discussion Other specified counseling History of pulmonary embolism- Primary Personal history of pulmonary embolism documented in this encounter Advance Directives * [...] 9:12 AM 05/09/2003 10:12 AM Care Teams Rubber Block Layer Relationship Specialty Start Date End Date June, Henry Sylvester MD [address] [facility] [place] [address] PCP - General Family Medicine 03/11/22 documented as of this encounter
--- OUTSIDE RECORDS SUMMARY | 2024-02-04 00:25 | External Medical Summary | Summary of Care ---
Author Name Unknown Organization [facility] Address [address] [place] [address] Phone [phone] Care Team Providers Care Underground Miner Name Role Phone Ajit Moreno MD Primary Care Provider [phone] Reason for Referral * Evaluate & Treat - Unlimited Visits (Within 10 days (routine)) - Authorized Specialty Diagnoses / Procedures Referred By Nena altman Referred To Contact Orthopaedic Surgery / Orthopedics Diagnoses Carpal tunnel syndrome of left wrist Ajit Moreno MD [address] [place] [address] Phone: tel: fax: Referral ID Status Reason Start Date Expiration Date Visits Requested Visits Authorized [id number] Authorized Specialty Services Required 4 [phone] Question Answer Referral Priority Within 10 days (routine) Where should this appointment be scheduled? [facility] What body part is the patient being seen for? Forearm/Wrist What condition is the patient being seen for? Sprain/Strain/Tear/Other Comments Carpal tunnel Reason for Visit * Reason Onset Date Comments [facility]: Maintenance 01/26/2024 Encounter Details Date Type Department Care Team ([facility] Contact Info) Description 01/26/2024 Telephone [facility], [facility] [address] [address] Rosa Parra RN [address] [place] [address] [facility]: Maintenance Allergies Active Allergy Reactions Criticality Noted Date Comments Fluticasone High 02/27/2020 Other reaction(s): lightheadedness and nausea Umeclidinium High 02/27/2020 Other reaction(s): lightheadedness and nausea Vilanterol High 02/27/2020 Other reaction(s): lightheadedness and nausea documented as of this encounter (statuses as of 01/26/2024) Medications Clobetasol Propionate 0.05 % External Ointment [...] ns:COPD, group C, by GOLD 2017 classification ([facility]) Inhale 1 vial via nebulizer [...] )Indications:COPD, group C, by GOLD 2017 classification ([facility]) Inhale 1 Puff by mouth [...] 4 3:05 PM EDT 10/21/19 24 Active Magnesium Chloride 64 MG Oral Tablet Delayed Release (Mag-64)Indication s:Hospital discharge follow-up Take 2 Tablets by mouth in the morning. 180 Tablet 1 11/07/19 24 Active Additional Information Patient taking differently:128 mg OralBID (.AM/PM), Reported on 01/17/2024 Probiotic Acidophilus Oral CapsuleIndications :Hospital discharge follow-up Take 1 Capsule by mouth in the morning. 30 Capsule 1 11/07/19 24 Active oxyCODONE HCl 10 MG Oral Tablet (Roxicodone) Take 1 Tablet by mouth every 6 hours as needed for Pain, Breakthrough. Active Cyclobenzaprine HCl 5 MG Oral Tablet (Flexeril) Take 1 Tablet by mouth 3 times a day as needed for Muscle spasms. Active Pregabalin 100 MG Oral Capsule (Lyrica)Indication s:Chronic pain syndrome Take 1 Capsule by mouth in the morning and 1 Capsule before bedtime. 60 Capsule 2 4 11:10 AM EST 01/09/20 24 Active Apixaban 5 MG Oral Tablet (Eliquis)Indicatio ns:History of pulmonary embolism Take 1 Tablet by mouth in the morning and 1 Tablet before bedtime. 180 Tablet 3 01/16/20 24 Active Hospital, Clinic, or Other Facility Administered Medication Ordered Dose Route Frequency Start Date End Date Status Albuterol Sulfate (Proventil) (2.5 MG/3ML) 0.083% inhalation solution 2.5 mgIndications:COPD, group D, by GOLD 2017 classification ([facility]),Centrilobular emphysema ([facility]) 2.5 mg NEBULIZER ONCE PRN 10/03/2023 Active documented as of this encounter (statuses as of 01/26/2024) Active Problems Problem Noted Date Diagnosed Date [...] Classes - YA Class D - Inhaled Gxhykobzhekldq-BCCA-TVCC Combination Inhaler (Trellegy) Remote Patient Monitoring Vendor: [...] Classes - YA Class D - Inhaled Daqhgqksnuhzqt-MLQB-LBMR Combination Inhaler (Trellegy) Remote Patient Monitoring Vendor: [...] not improve, can start rescue kit Continue lisbethlegy Atherosclerosis of aorta 01/05/2018 Controlled substance agreement signed 02/05/2015 Obstructive sleep apnea 08/23/2014 Overview (08/23/2014): Split night pending 2002 PSG -- mild [facility] Obesity, Class I, BMI 30.0-34.9 (see actual BMI) 04/08/2011 Overview (04/08/2011): bmi= 32.58 04/08/11 Tobacco use disorder 04/08/2011 Gastroesophageal reflux disease with esophagitis 03/06/2002 Hiatal hernia 03/29/2001 documented as of this encounter (statuses as of 01/26/2024) Resolved Problems Problem Noted Date Diagnosed Date Resolved Date Depression, unspecified 11/07/202312/09 Depression, unspecified 11/07/202309/2023 Hyperlipidemia 03/21/2023 04/07/2023 Morbid (severe) obesity due [...] LUNG, NOT ELSEWHERE CLASSIFIED 06/12/2002 09/14/2018 CHEST [id number] 04/09/200209/2018 ABN FD-INTRATHOR ORG NEC-akbar nodule 03/06/2002 [...] as of this encounter (statuses as of 01/26/2024) Immunizations Name Administration Dates Next Due COVID-19 mRNA, LNP-s, No Pre serve, 2-Dose Series ([employer]) 05/22/2020,05/01/2020 Seasonal Influenza, PF, 6 M & [...] Telephone Encounter - Ajit Moreno MD - 01/26/2024 2:34 PM EST Referral placed. Ajit Moreno MD * Telephone Encounter - Rosa Parra RN - 01/26/2024 11:27 AM EST Pt requesting ortho referral for carpal tunnel of left wrist. He would like to go to [facility] for this. Thank you documented in this encounter Plan of Treatment Upcoming Encounters Date Type Department Care Team (Late st Contact Info) Description 03/02/2024 10:00 AM EST Home Visit [facility] [address] [place] [phone] Rosa Parra RN [address] [place] [address] 04/26/2024 3:00 PM EDT Office Visit Cardiology, [facility] [address] [place] [address] Toyin Wisdom PA-C [address] [place] [address] [place] [phone] 05/18/2024 2:40 PM EDT Office Visit [facility], [place] [address] [place] [phone] Ajit Moreno MD [address] [place] [address] Scheduled Procedures Name Priority Associated Diagnoses Date/Ti me COLONOSCOPY FLEXIBLE PROXIMAL DIAGNOSTIC Recall History of colon polyps Scheduled Referrals Name Type Priority Associated Diagnoses Order Schedule ORTHOPAEDICS REFERRAL OP Referral Within 10 days (routine) Carpal tunnel syndrome of left wrist Ordered: 01/26/2024 Health Maintenance Due Date Last Done Comments [...] D LEVEL ONCE IN A LIFETIME-USE SMARTSET# [id number] Completed 06/16/2021, 05/03/2014 AAA Screening Completed 09/24/2022, [...] C, by GOLD 2017 classification (HCC)- Primary Depression, unspecified depression type Dyslipidemia, goal LDL below 70 Other and unspecified hyperlipidemia Personal history of other venous thrombosis and embolism History of septic arthritis Personal history of arthritis Advanced care planning/counseling discussion Other specified counseling Carpal tunnel syndrome of left wrist- Primary Carpal tunnel syndrome documented in this encounter Advance Directives [...] 9:12 AM 05/09/2003 10:12 AM Care Teams Underground Miner Relationship Specialty Start Date End Date June, Ajit Sylvester MD PCP - General Family Medicine 03/11/22 documented as of this encounter
--- OUTSIDE RECORDS SUMMARY | 2024-02-04 00:25 | External Medical Summary | Summary of Care ---
Author Name Unknown Organization [facility] Address [address] [place] [address] Phone [phone] Care Team Providers Care Inspector Grain Mill Products Name Role Phone Ajit Moreno MD Primary Care Provider [phone] Reason for Visit * Reason Onset Date Comments Medication Refill 01/16/2024 Encounter Details Date Type Department Care Team (Late st Contact Info) Description 01/16/2024 Telephone [facility] [address] [place] [address] JuneAjit MD [address] [place] [address] Medication Refill Allergies Active Allergy Reactions Criticality Noted Date [...] ons:COPD, group C, by GOLD 2017 classification ([facility]) Inhale 1 vial via [...] Use as directed 1 Kit 5 09/29/19 Active Trelegy Ellipta 200-62.5-25 MCG/ACT Aerosol Powder Breath Activated (Fluticasone-Umec lidinium-Vilanter ol)Indications:CO PD, group C, by GOLD 2017 classification ([facility]) Inhale 1 Puff by [...] tions:COPD, group D, by GOLD 2017 classification ([facility]) take two tablets by [...] mgIndications:COPD, group D, by GOLD 2017 classification ([facility]),Centrilobular emphysema (HCC) 2.5 mg NEBULIZER ONCE PRN [...] Classes - YA Class D - Inhaled Zislbgpmpzabkd-ZOBA-KMRY Combination Inhaler (Trellegy) Remote Patient Monitoring Vendor: [...] Classes - YA Class D - Inhaled Xreckitqlimanu-FLZL-CYSH Combination Inhaler (Trellegy) Remote Patient Monitoring Vendor: [...] Date Diagnosed Date Resolved Date Depression, unspecified 11/07/20232 03/2023 Depression, unspecified 11/07/2023 11/0 09/2023 Hyperlipidemia 03/21/2023 [...] LUNG, NOT ELSEWHERE CLASSIFIED 06/12/2002 09/14/2018 CHEST [id number] 04/09/200209/2018 ABN FD-INTRATHOR ORG NEC-akbar nodule 03/06/2002 [...] No 04/26/2023 Does the household have a [facility] hospitall[facility] source of income? (Household - for ages [...] Telephone Encounter - Ajit Moreno MD - 01/16/2024 5:43 PM EST Eliquis prescription sent to [facility]. Ajit Moreno MD * Telephone Encounter - Isabelle Klein LPN - 01/16/2024 12:07 PM EST Please advise as below. Thank you. * Telephone Encounter - Magaly Britton epic prelude analyst - 01/16/2024 11:40 AM EST Pt calling requesting the following medication below that is listed as "Historical". The following information was provided: Medication Name: Eliquis Strength: 5 mg Directions: Take 1 tablet by mouth in the am and 1 tablet before bed Preferred Quantity: 60 Previous Prescriber: tomas abdul Preferred Pharmacy: [id number] [address] [facility] Please review and approve if appropriate. Thank you, Magaly Britton CPhT Transit Operations Supervisor II [facility] ([facility] 01/16/2024,11:40 AM documented in this encounter Plan of Treatment Upcoming Encounters Date Type Department Care Team (Late st Contact Info) Description 01/17/2024 1:00 PM EST Office Visit Family [facility], [place] [address] [place] [phone] Ajit Moreno MD [address] [place] [phone] 04/26/2024 3:00 PM EDT Office Visit Cardiology, [facility] [address] [facility] [place] [address] Toyin Wisdom PA-C [address] [place] [address] Scheduled Procedures Name Priority Associated Diagnoses Date/Ti me COLONOSCOPY FLEXIBLE PROXIMAL DIAGNOSTIC Recall History of colon polyps Health Maintenance Due Date Last Done Comments DISCUSS TOBACCO CESSATION (REFER TO SMARTSET #7541) 1955 Alpha-1 Antitrypsin 12/04/1971 Cologuard 1998 Fecal [...] FOR COPD 12/29/2024 12/30/2023 Colonoscopy 03/18/2026 03/18/2021, 10/2021, 12/18/2019, Additional history exists Colorectal Cancer Screening 03/18/2026 Hepatitis C Screening Completed 05/31/2017 , 08/07/2015, 05/03/2014 RETIRED - COLONOSCOPY-ANNUAL AGES 18-100 Discontinued 03/18/2021, 03/18/2021, 12/18/2019, Additional history exists RETIRED - COLONOSCOPY-EVERY 5 YRS AGES 18-100 Discontinued 03/18/2021, 03/18/2021, 12/18/2019, Additional history exists VITAMIN D LEVEL ONCE IN A LIFETIME-USE SMARTSET# [id number] Completed 06/16/2021, 05/03/2014 AAA Screening Completed 09/24/2022, [...] COPD, group C, by GOLD 2017 classification ([facility])- Primary Chronic pain syndrome Adjustment disorder with depressed mood Advanced care planning/counseling discussion Other specified counseling COPD, group C, by GOLD 2017 classification ([facility])- Primary Depression, unspecified depression type Dyslipidemia, goal LDL below 70 Other and unspecified hyperlipidemia Personal history of other venous thrombosis and embolism History of septic arthritis Personal history of arthritis Advanced care planning/counseling discussion Other specified counseling Bilateral lower extremity edema Edema documented in this encounter Advance Directives * [...] AM 05/09/2003 10:12 AM Care Teams Inspector [employer] Relationship Specialty Start Date End Date June, Ajit [place] MD [address] [place] [facility] [place] [address] PCP - General Family Medicine 03/11/22 documented as of this encounter
--- OUTSIDE RECORDS SUMMARY | 2024-02-04 00:25 | External Medical Summary | Summary of Care ---
Author Name Unknown Organization [facility] Address [address] [place] [address] Phone [phone] Care Team Providers Care Guest Services Associate Name Role Phone Ajit Moreno MD Primary Care Provider [phone] Reason for Visit * Reason Comments Follow Up Patient is here for a 3 week follow up.Patient states he is having pain all over especiall in his hands and SOB. Encounter Details Date Type Department Care Team (Late st Contact Info) Description 01/17/2024 1:00 PM EST Office Visit [facility] [address] [place] [address] Ajit Moreno MD [address] [place], [place] [phone] COPD, group C, by GOLD 2017 classification ([facility])*; Chronic heart failure with preserved ejection fraction (HCC); Carpal tunnel syndrome of left wrist; Prediabetes; History of pulmonary embolism Allergies Active Allergy Reactions Criticality Noted Date Comments Fluticasone High 02/27/2020 Other reaction(s): lightheadedness and nausea Umeclidinium High 02/27/2020 Other reaction(s): lightheadedness and nausea Vilanterol High 02/27/2020 Other reaction(s): lightheadedness and nausea documented as of this encounter (statuses as of 01/17/2024) Medications Clobetasol Propionate 0.05 % External Ointment [...] ons:COPD, group C, by GOLD 2017 classification ([facility]) Inhale 1 vial via nebulizer [...] Active Prochlorperazine Maleate 5 MG Oral Tablet (Compazine)Indica tions:Nausea without vomiting Take 1 Tablet by mouth every 6 hours as needed for Nausea. 30 Tablet 3 09/29/19 24 Active Additional Information Patient not taking.Reported on 01/17/2024 Nebulizer/Tubing/ Mouthpiece Kit Use as directed 1 Kit 5 09/29/19 24 Active Trelegy Ellipta 200-62.5-25 MCG/ACT Aerosol Powder Breath Activated (Fluticasone-Umec lidinium-Vilanter ol)Indications:CO PD, group C, by GOLD 2017 classification ([facility]) Inhale 1 Puff by mouth [...] (.AM/PM), Reported on 01/17/2024 Probiotic Acidophilus Oral CapsuleIndication s:Hospital discharge follow-up [...] bedtime. 180 Tablet 3 01/16/20 24 Active predniSONE 20 MG Oral Tablet (Deltasone) Take 2 Tablets by mouth daily as needed for copd exacerbation for 5 days when directed 10 Tablet 3 4 6:57 AM EDT 09/29/19 24 024 Discontin ued(Medic ation List Clean Up) guaiFENesin-Codei ne 100-10 MG/5ML Oral Syrup (Robitussin AC)Indications:Ch ronic cough Take 5 mL by mouth every 4 hours as needed for Cough. 120 mL 09/29/19 24 024 Discontin ued(Medic ation List Clean Up) Azithromycin 250 MG Oral Tablet (Zithromax)Indica tions:COPD, group D, by GOLD 2017 classification ([facility]) take two tablets by mouth on day one, then one tablet on days two through five as needed for copd rescue 6 Tablet 4 7:34 AM EDT 10/26/19 24 024 Discontin ued(Medic ation List Clean Up) Vancomycin IVPB injection Administer 262.5 mL intravenously in the morning and 262.5 mL before bedtime. 024 Discontin ued(Medic ation List Clean Up) Caspofungin Acetate 50 MG Intravenous Solution Reconstituted (Cancidas) Administer 50 mg intravenously in the morning. 024 Discontin ued(Medic ation List Clean Up) Alteplase 2 MG Injection Solution Reconstituted (Cathflo Activase)Indicati ons:Occlusion of peripherally inserted central catheter (PICC) line, initial encounter ([facility]) Inject 2 mg intravenously once for 1 dose. 1 Each 11/29/19 24 024 Discontin ued(Medic ation List Clean Up) Hospital, Clinic, or Other Facility Administered Medication Ordered Dose Route Frequency Start Date End Date Status Albuterol Sulfate (Proventil) (2.5 MG/3ML) 0.083% inhalation solution 2.5 mgIndications:COPD, group D, by GOLD 2017 classification ([facility]),Centrilobular emphysema ([facility]) 2.5 mg NEBULIZER ONCE PRN 10/03/2023 Active documented as of this encounter (statuses as of 01/17/2024) Active Problems Problem Noted Date Diagnosed Date [...] Classes - YA Class D - Inhaled Vqxssnugajwixh-KAMY-TFSO Combination Inhaler (Trellegy) Remote Patient Monitoring Vendor: [...] Classes - YA Class D - Inhaled Jjsnyabkroekpx-JEOM-PADW Combination Inhaler (Trellegy) Remote Patient Monitoring Vendor: [...] as of this encounter (statuses as of 01/17/2024) Resolved Problems Problem Noted Date Diagnosed Date [...] LUNG, NOT ELSEWHERE CLASSIFIED 06/12/2002 09/14/2018 CHEST [id number] 04/09/200209/2018 ABN FD-INTRATHOR ORG NEC-akbar nodule 03/06/2002 [...] as of this encounter (statuses as of 01/17/2024) Immunizations Name Administration Dates Next Due COVID-19 mRNA, LNP-s, No Pre serve, 2-Dose Series (Placecast) 05/22/2020,05/01/2020 Seasonal Influenza, PF, 6 M & [...] No 04/26/2023 Does the household have a [facility] source of income? (Household - for [...] AM EDT documented as of this encounter Last Filed Vital Signs Vital Sign Reading Time Taken Comments Blood Pressure 119/74 01/17/2024 1:11 PM EST Pulse 64 01/17/2024 1:11 PM EST Temperature 36.2 C (97.1 F) 01/17/2024 1:11 PM ES T Respiratory Rate 22 01/17/2024 1:11 PM EST Oxygen Saturation 94% 01/17/2024 1:11 PM EST Inhaled Oxygen Concentration - - Weight 91.5 kg (201 lb 12.8 oz) 01/17/2024 1:11 PM EST Height - - Body Mass Index 32.57 11/07/2023 2:11 PM EDT documented in this encounter Progress Notes * Ajit Moreno MD - 01/17/2024 1:06 PM EST Images from the original note were not included. Assessment and Plan 1. COPD, group C, by GOLD 2017 classification (HCC) (Primary) Chronic shortness of breath. On trulicity. Continues to smoke and is pre contemplative about quitting. Have discussed expected worsening of symptoms with ongoing smoking. 2. Chronic heart failure with preserved ejection fraction (HCC) Following with cardiology. Euvolemic on exam. Ischemic workup in April after treatment for pulmonary embolism. 3. Carpal tunnel syndrome of left wrist Orthopedics eval through [facility] tomorrow. 4. Prediabetes Discussed incorrect diabetes diagnosis. He is actually prediabetic. 5. History of pulmonary embolism Anticoagulated on eliquis. Reschedule hematology/oncology. Wrap-Up Follow up in 4 months. History of Present Illness The patient is a 68 year old male with past medical history of dyslipidmea, prediabetes, COPD, TAYLOR,GERD, history of DVT/PE who presents for routine follow up. Patient seen at last visit for hospital follow up following diagnosis of right segmental/subsegmental pulmonary embolus in the right lower lobe. He was placed on heparin and transitioned to eliquis. He no showed hematology/oncology for hypercoag workup. Will be on lifelong anticoagulation. At last visit patient was put on metformin and trulicity for diabetes. After further evaluation it was noted that outside lab work was inappropriately input into the chart as A1c rather than hemoglobin. Repeat A1c was ordered which was 6.0. Medications were stopped. Today patient reports he has quite severe pain of the hand starting of the wrists bilaterally. He does have a history of right hand carpal tunnel release. Never had surgical intervention on the left-hand. Left pain is worse than right. Causes significant numbness/tingling/pain especially at night. Patient also notes shortness of breath. This is multifactorial with PE, COPD, heart failure with preserved ejection fraction all contributory. Patient recently saw Cardiology who did not change any medications. Plan is for ischemic workup in April 2024 after appropriate treatment for pulmonary embolism. Physical Exam Vitals: 01/17/24 1311 Temp: 97.1 F (36.2 C) Pulse: 64 Resp: 22 SpO2: 94% BP: 119/74 Physical Exam Physical Exam Vitals reviewed. Constitutional: General: He is not in acute distress. Cardiovascular: Rate and Rhythm: Normal rate and regular rhythm. Heart sounds: No murmur heard. Pulmonary: Effort: Pulmonary effort is normal. Breath sounds: Wheezing and rhonchi present. Musculoskeletal: Right lower leg: No edema. Left lower leg: No edema. Comments: Positive tinel's. Positive Phalen. Neurological: General: No focal deficit present. Mental Status: He is alert. This note has been completed in part utilizing [employer] Speech Voice Recognition Software. Due to technical limitations of the software, grammatical errors, random word insertions, prounoun errors, and incomplete sentences may occur. Any formal questions or concerns about the content, text, or information contained within the body of this dictation should be directly addressed to the provider for clarification. documented in this encounter Nursing Notes * Micaela Gunderson LPN - 01/17/2024 1:11 PM EST The patient has been properly identified by confirmation of name and date of . Chief Complaint Patient presents with Follow Up Patient is here for a 3 week follow up. Patient states he is having pain all over especiall in his hands and SOB. documented in this encounter Plan of Treatment Upcoming Encounters Date Type Department Care Team (Late st Contact Info) Description 04/26/2024 3:00 PM EDT Office Visit Cardiology, [facility] [address] [facility] [place] [address] Toyin Wisdom PA-C [address] [place] [address] [place] [address] 05/18/2024 2:40 PM EDT Office Visit [facility] [address] [place] [address] Ajit Moreno MD [address] [place] [id number] Scheduled Procedures Name Priority Associated Diagnoses Date/Ti me COLONOSCOPY FLEXIBLE PROXIMAL DIAGNOSTIC Recall History of colon polyps Health Maintenance Due Date Last Done Comments DISCUSS TOBACCO CESSATION (REFER TO SMARTSET #5382) 1955 Alpha-1 Antitrypsin 12/04/1971 Cologuard 1998 Fecal Occult Blood Test 1998 Sigmoidoscopy 1998 *ADVANCE DIRECTIVE NOT ON FILE 07/22/2018 *BISPHONATE OR OTHER ACCEPTABLE MEDICATION NEEDED FOR OSTEOPOROSIS (REFER TO SMARTSET #3196) 06/29/2022 Adult Wellness Visit 03/11/2023 03/11/2022, 08/31/2021, [...] FOR COPD 01/16/2025 01/17/2024 Colonoscopy 03/18/2026 03/18/2021, 02/0 10/2021, 12/18/2019, Additional history exists Colorectal Cancer Screening 03/18/2026 Hepatitis C Screening Completed 05/31/2017 , 08/07/2015, 05/03/2014 RETIRED - COLONOSCOPY-ANNUAL AGES 18-100 Discontinued 03/18/2021, 03/18/2021, 12/18/2019, Additional history exists RETIRED - COLONOSCOPY-EVERY 5 YRS AGES 18-100 Discontinued 03/18/2021, 03/18/2021, 12/18/2019, Additional history exists VITAMIN D LEVEL ONCE IN A LIFETIME-USE SMARTSET# [id number] Completed 06/16/2021, 05/03/2014 AAA Screening Completed 09/24/2022, [...] by GOLD 2017 classification (HCC)- Primary Chronic heart failure with preserved ejection fraction (HCC) Carpal tunnel syndrome of left wrist Carpal tunnel syndrome Prediabetes Other abnormal glucose History of pulmonary embolism Personal history of pulmonary embolism documented in [...] 9:12 AM 05/09/2003 10:12 AM Care Teams Guest Services Associate Relationship Specialty Start Date End Date June, Ajit Sylvester MD [address] [place] [address] PCP - General Family Medicine 03/11/22 documented as of this encounter
--- OUTSIDE RECORDS SUMMARY | 2024-02-04 00:26 | External Medical Summary ---
Author Name Unknown Address Unknown Organization K01:[facility] [place] [address] [place] [id number] Laboratory Report Ordering Provider Test Date Status NITZA FARRELL 01/09/2024 12:55:04 Final Observation Date Value Abnormality Reference (Units ) Status CRP, low-sensitivity 01/09/2024 12:55:04 9 Above high normal <=5 (mg/L) Final Performing Location [facility] - [address] [place] [id number]
--- OUTSIDE RECORDS SUMMARY | 2024-02-04 00:26 | External Medical Summary | Summary of Care ---
Author Name Unknown Organization [facility] Address [address] [place] [address] Phone [phone] Care Team Providers Care Promotions Director Name Role Phone Ajit Moreno MD Primary Care Provider [phone] Reason for Visit * Reason Onset Date Comments Medication Refill 01/16/2024 Encounter Details Date Type Department Care Team (Late st Contact Info) Description 01/16/2024 Telephone [facility] [address] [place] [address] JuneAjit MD [address] [place] [address] Medication Refill Allergies Active Allergy [...] ns:COPD, group C, by GOLD 2017 classification ([facility]) Inhale 1 vial via nebulizer every [...] 12/28/2023 Prochlorperazine Maleate 5 MG Oral Tablet (Compazine)Indicat ions:Nausea without vomiting Take 1 Tablet by mouth every 6 hours as needed for Nausea. 30 Tablet 3 09/29/19 24 Active Additional Information Patient not taking.Reported on 10/21/2023 Nebulizer/Tubing/M outhpiece Kit Use as directed 1 Kit 5 09/29/19 24 Active Trelegy Ellipta 200-62.5-25 MCG/ACT Aerosol Powder Breath Activated (Fluticasone-Umecl idinium-Vilanterol )Indications:COPD, group C, by GOLD 2017 classification (HCC) Inhale 1 Puff by mouth in the morning. 60 Each 10 09/29/19 24 Active Triamcinolone Acetonide 0.1 % External Ointment (Aristocort)Indica tions:Stasis dermatitis of both legs Apply 2 times a day to rash on lower legs when flaring (see printed checkout sheet) 80 g 2 09/29/19 24 Active guaiFENesin-Codein e 100-10 MG/5ML Oral Syrup (Robitussin AC)Indications:Chr onic cough Take 5 mL by mouth every [...] 24 Active Azithromycin 250 MG Oral Tablet (Zithromax)Indicat ions:COPD, group D, by GOLD 2017 classification ([facility]) take two tablets by mouth on day [...] (.AM/PM), Reported on 12/28/2023 Probiotic Acidophilus Oral CapsuleIndications :Hospital discharge follow-up [...] hours as needed for Pain, Breakthrough. Active Apixaban 5 MG Oral Tablet (Eliquis) Take 1 Tablet by mouth in the morning and 1 Tablet before bedtime. 10mg twice a day for 7 days then 5mg twice a day thereafter. Active Cyclobenzaprine HCl 5 MG Oral Tablet (Flexeril) Take 1 Tablet by mouth 3 times a day as needed for Muscle spasms. Active Pregabalin 100 MG Oral Capsule (Lyrica)Indication s:Chronic pain syndrome Take 1 Capsule by mouth in the morning and 1 Capsule before bedtime. 60 Capsule 2 4 11:10 AM EST 01/09/20 24 Active Hospital, Clinic, or Other Facility Administered Medication Ordered Dose Route Frequency Start Date End Date Status Albuterol Sulfate (Proventil) (2.5 MG/3ML) 0.083% inhalation solution 2.5 mgIndications:COPD, group D, by GOLD 2017 classification ([facility]),Centrilobular emphysema ([facility]) 2.5 mg NEBULIZER ONCE PRN 10/03/2023 [...] Classes - YA Class D - Inhaled Mjywbnrqaryssq-CASE-TCQX Combination Inhaler (Trellegy) Remote Patient Monitoring Vendor: [...] Classes - YA Class D - Inhaled Flsonmacylwbsi-MEAA-FRCE Combination Inhaler (Trellegy) Remote Patient Monitoring Vendor: [...] LUNG, NOT ELSEWHERE CLASSIFIED 06/12/2002 09/14/2018 CHEST [id number] 04/09/200209/2018 ABN FD-INTRATHOR ORG NEC-akbar nodule 03/06/2002 [...] encounter Miscellaneous Notes * Telephone Encounter - Isabelle Klein LPN - 01/16/2024 12:07 PM EST Please advise as below. Thank you. * Telephone Encounter - Magaly Britton PHARM Tech - 01/16/2024 11:40 AM EST Pt calling requesting the following medication below that is listed as "Historical". The following information was provided: Medication Name: Eliquis Strength: 5 mg Directions: Take 1 tablet by mouth in the am and 1 tablet before bed Preferred Quantity: 60 Previous Prescriber: tomas abdul Preferred Pharmacy: [id number] Please review and approve if appropriate. Thank you, Magaly Britton [facility] Revenue Cycle Specialist II [facility] ([facility]) 01/16/2024,11:40 AM documented in this encounter Plan of Treatment Upcoming Encounters Date Type Department Care Team (Late st Contact Info) Description 01/17/2024 1:00 PM EST [facility] [address] [place] [address] JuneAjit MD [address] [place] [id number] 04/26/2024 3:00 PM EDT Office Visit Cardiology, [facility] [address] [place] [address] Toyin Wisdom PA-C [address] [place] [address] Scheduled Procedures Name Priority Associated Diagnoses Date/Ti me COLONOSCOPY FLEXIBLE PROXIMAL DIAGNOSTIC Recall History of colon polyps Health Maintenance Due Date Last Done Comments DISCUSS TOBACCO CESSATION (REFER TO SMARTSET #9661) 1955 Alpha-1 Antitrypsin 12/04/1971 Cologuard 1998 Fecal [...] D LEVEL ONCE IN A LIFETIME-USE SMARTSET# [id number] Completed 06/16/2021, 05/03/2014 AAA Screening Completed 09/24/2022, [...] 9:12 AM 05/09/2003 10:12 AM Care Teams Promotions Director Relationship Specialty Start Date End Date June, Ajit Sylvester MD [address] [place], [place] [phone] PCP - General Family Medicine 03/11/22 documented as of this encounter
--- OUTSIDE RECORDS SUMMARY | 2024-02-04 00:26 | External Medical Summary | Summary of Care ---
Author Name Unknown Organization [facility] Address [address] [place] [address] Phone [phone] Care Team Providers Care Senior Software Manager Name Role Phone Ajit Moreno MD Primary Care Provider [phone] Reason for Visit * Reason Onset Date Comments Medication Refill 01/16/2024 Encounter Details Date Type Department Care Team (Late st Contact Info) Description 01/16/2024 Telephone [facility] [address] [place] [address] JuneAjit MD [address] [place] [address] Medication Refill Allergies Active Allergy [...] ions:COPD, group D, by GOLD 2017 classification ([facility] [...] Classes - YA Class D - Inhaled Xorgjauprjkeut-PWTH-UCVA Combination Inhaler (Trellegy) Remote Patient Monitoring Vendor: [...] Classes - YA Class D - Inhaled Lbtwmlqlnzcutx-VIVI-XMVX Combination Inhaler (Trellegy) Remote Patient Monitoring Vendor: [...] LUNG, NOT ELSEWHERE CLASSIFIED 06/12/2002 09/14/2018 CHEST [id number] 04/09/200209/2018 ABN FD-INTRATHOR ORG NEC-akbar nodule 03/06/2002 [...] encounter Miscellaneous Notes * Telephone Encounter - Magaly Britton PHARM Tech - 01/16/2024 11:40 AM EST Pt calling requesting the following medication below that is listed as "Historical". The following information was provided: Medication Name: Eliquis Strength: 5 mg Directions: Take 1 tablet by mouth in the am and 1 tablet before bed Preferred Quantity: 60 Previous Prescriber: tomas abdul Preferred Pharmacy: [id number] Please review and approve if appropriate. Thank you, Magaly Britton CPhT School Treasurer II [facility] ([facility]) 01/16/2024,11:40 AM documented in this encounter Plan of Treatment Upcoming Encounters Date Type Department Care Team (Late st Contact Info) Description 01/17/2024 1:00 PM EST Office Visit [facility] [address] [phone] Ajit Moreno MD [address] [place] [address] 04/26/2024 3:00 PM EDT Office Visit Cardiology, [facility] [address] [facility] [place] [address] Toyin Wisdom PA-C [address] [place] [address] [place] [address] Scheduled Procedures Name Priority [...] D LEVEL ONCE IN A LIFETIME-USE SMARTSET# [id number] Completed 06/16/2021, 05/03/2014 AAA Screening Completed 09/24/2022, [...] 9:12 AM 05/09/2003 10:12 AM Care Teams Senior Software Manager Relationship Specialty Start Date End Date June, Ajit Sylvester MD [address] [facility] [place] [address] PCP - General Family Medicine 03/11/22 documented as of this encounter
--- OUTSIDE RECORDS SUMMARY | 2024-02-04 00:26 | External Medical Summary | Summary of Care ---
Author Name Unknown Organization [facility] Address [address] [place] [address] Phone [phone] Care Team Providers Care Hopper Attendant Name Role Phone Ajit Moreno MD Primary Care Provider [phone] Reason for Visit * Reason Onset Date Comments No Show 01/13/2024 Encounter Details Date Type Department Care Team (Late st Contact Info) Description 01/13/2024 Telephone Hematology/Oncology [facility] [place] [address] [facility] [place] [phone] Andrew Patel MD [address] [place] [address] No Show Allergies Active Allergy Reactions Criticality Noted Date Comments Fluticasone High 02/27/2020 Other reaction(s): lightheadedness and nausea Umeclidinium High 02/27/2020 Other reaction(s): lightheadedness and nausea Vilanterol High 02/27/2020 Other reaction(s): lightheadedness and nausea documented as of this encounter (statuses as of 01/13/2024) Medications Clobetasol Propionate 0.05 % External Ointment [...] ns:COPD, group C, by GOLD 2017 classification ([facility]) Inhale 1 vial via nebulizer every [...] ions:COPD, group D, by GOLD 2017 classification ([facility]) take two tablets by mouth on day [...] mgIndications:COPD, group D, by GOLD 2017 classification ([facility]),Centrilobular emphysema ([facility]) 2.5 mg NEBULIZER ONCE PRN 10/03/2023 Active documented as of this encounter (statuses as of 01/13/2024) Active Problems Problem Noted Date Diagnosed Date [...] COPD, group C, by GOLD 2017 classification 06/10 /2019 Overview: Per COPD GOLD Classification Assessment & [...] Classes - YA Class D - Inhaled Wscnamouocqhok-XBGF-PHKN Combination Inhaler (Trellegy) Remote Patient Monitoring Vendor: [...] Classes - YA Class D - Inhaled Thfzdukaxxvyez-KMYC-MREG Combination Inhaler (Trellegy) Remote Patient Monitoring Vendor: [...] as of this encounter (statuses as of 01/13/2024) Resolved Problems Problem Noted Date Diagnosed Date [...] LUNG, NOT ELSEWHERE CLASSIFIED 06/12/2002 09/14/2018 CHEST [id number] 04/09/200209/2018 ABN FD-INTRATHOR ORG NEC-akbar nodule 03/06/2002 [...] as of this encounter (statuses as of 01/13/2024) Immunizations Name Administration Dates Next Due COVID-19 [...] encounter Miscellaneous Notes * Telephone Encounter - Kinza Lieberman MED ASSIST - 01/13/2024 11:21 AM EST Pt did not show for his appointment today 01/13/24 with . Please call to reschedule. Thank You documented in this encounter Plan of Treatment Upcoming Encounters Date Type Department Care Team (Late st Contact Info) Description 01/17/2024 1:00 PM EST [facility] [address] [address] [phone] JuneAjit MD [address] [facility] [place] [id number] 04/26/2024 3:00 PM EDT Office Visit Cardiology, [facility] [address] [facility] [place] [address] Toyin Wisdom PA-C [address] [place] [address] [place] [address] Scheduled Procedures Name Priority Associated Diagnoses Date/Ti me COLONOSCOPY FLEXIBLE PROXIMAL DIAGNOSTIC Recall History of colon polyps Health Maintenance Due Date Last Done Comments DISCUSS TOBACCO CESSATION (REFER TO SMARTSET #4545) 1955 Alpha-1 Antitrypsin 12/04/1971 Cologuard 1998 Fecal Occult Blood Test 1998 Sigmoidoscopy 1998 *ADVANCE DIRECTIVE NOT ON FILE 07/22/2018 *BISPHONATE OR OTHER ACCEPTABLE MEDICATION NEEDED FOR OSTEOPOROSIS (REFER TO SMARTSET #1146) 06/29/2022 Adult Wellness Visit 03/11/2023 03/11/2022, 08/31/2021, 08/26/2020 COVID-19 Vaccine (3 - season) 2023 05/22/2020, 05/01/2020 Influenza Vaccine [...] D LEVEL ONCE IN A LIFETIME-USE SMARTSET# [id number] Completed 06/16/2021, 05/03/2014 AAA Screening Completed 09/24/2022, [...] 9:12 AM 05/09/2003 10:12 AM Care Teams Hopper Attendant Relationship Specialty Start Date End Date June, Ajit Sylvester MD [address] [place] [address] PCP - General Family Medicine 03/11/22 documented as of this encounter
--- OUTSIDE RECORDS SUMMARY | 2024-02-04 00:26 | External Medical Summary | Summary of Care ---
Author Name Unknown Organization [facility] Address [address] [place] [address] Phone [phone] Care Team Providers Care Uniformer Name Role Phone Ajit Moreno MD Primary Care Provider [phone] Reason for Visit * Reason Comments Outpatient Testing Encounter Details Date Type Department Care Team (Late st Contact Info) Description 01/09/2024 12:50 PM EST Laboratory Laboratory, [facility] [address] [place] [phone] [place], Laboratory [address] [place] [address] Septic olecranon bursitis of right elbow Allergies Active Allergy Reactions Criticality Noted Date Comments Fluticasone High 02/27/2020 Other reaction(s): lightheadedness and nausea Umeclidinium High 02/27/2020 Other reaction(s): lightheadedness and nausea Vilanterol High 02/27/2020 Other reaction(s): lightheadedness and nausea documented as of this encounter (statuses as of 01/09/2024) Medications Clobetasol Propionate 0.05 % External Ointment [...] in the morning. 90 Tablet 3 4 7:48 AM EDT 09/29/19 24 Active Baclofen 5 MG Oral Tablet (Lioresal) Take 1 Tablet by mouth 3 times a day as needed for Muscle spasms. 30 Tablet 3 09/29/19 24 Active Cyanocobalamin 1000 MCG Oral Tablet (Cyanocobalamin) Take 1 Tablet by mouth in the morning. 90 Tablet 3 4 7:48 AM EDT 09/29/19 24 Active Escitalopram Oxalate 10 MG Oral Tablet (Lexapro)Indicatio ns:Mood swings Take 1 Tablet by mouth in the morning. 90 Tablet 3 4 10:04 AM EDT 09/29/19 24 Active Levalbuterol HCl 1.25 MG/3ML Inhalation Nebulization Solution (Xopenex)Indicatio ns:COPD, group C, by GOLD 2017 classification ([facility]) Inhale 1 vial via nebulizer every [...] Tablet before bedtime. 60 Tablet 3 4 3:47 PM EDT 09/29/19 24 Active Ondansetron HCl 8 MG [...] Tablet before bedtime. 180 Tablet 3 4 7:48 AM EDT 09/29/19 24 Active predniSONE 20 MG Oral [...] ions:COPD, group D, by GOLD 2017 classification ([facility]) take two tablets by mouth on [...] 1 Capsule before bedtime. 60 Capsule 2 01/09/20 24 Active Hospital, Clinic, or Other Facility Administered Medication Ordered Dose Route Frequency Start Date End Date Status Albuterol Sulfate (Proventil) (2.5 MG/3ML) 0.083% inhalation solution 2.5 mgIndications:COPD, group D, by GOLD 2017 classification ([facility]),Centrilobular emphysema ([facility]) 2.5 mg NEBULIZER ONCE PRN 10/03/2023 Active documented as of this encounter (statuses as of 01/09/2024) Active Problems Problem Noted Date Diagnosed Date [...] Classes - YA Class D - Inhaled Robhvxnyyxjnto-DGWS-GKHZ Combination Inhaler (Trellegy) Remote Patient Monitoring Vendor: [...] Classes - YA Class D - Inhaled Kpdfxodufopsrm-BUBG-MBFX Combination Inhaler (Trellegy) Remote Patient Monitoring Vendor: [...] as of this encounter (statuses as of 01/09/2024) Resolved Problems Problem Noted Date Diagnosed Date [...] LUNG, NOT ELSEWHERE CLASSIFIED 06/12/2002 09/14/2018 CHEST [id number]-[id number]-FKPN 04/09/200209/2018 ABN FD-INTRATHOR ORG NEC-akbar nodule 03/06/2002 [...] as of this encounter (statuses as of 01/09/2024) Immunizations Name Administration Dates Next Due COVID-19 mRNA, LNP-s, No Pre serve, 2-Dose Series (Vitrue) 05/22/2020,05/01/2020 Seasonal Influenza, PF, 6 M & [...] AM EDT documented as of this encounter Plan of Treatment Upcoming Encounters Date Type Department Care Team (Late st Contact Info) Description 01/11/2024 6:20 PM EST [facility] [address] [phone] Ajit Moreno MD [address] [address] 01/13/2024 9:45 AM EST Office Visit Hematology/Oncology [facility] [address] [facility] [place] [phone] Andrew Patel MD [address] [facility] [place] [address] 04/26/2024 3:00 PM EDT Office Visit Cardiology, [facility] [address] [place] [address] Toyin Wisdom PA-C [address] [place] [address] [place] [phone] Pending Results Name Type Priority Associated Diagnoses Date /Time CBC WITH WBC DIFFERENTIAL Lab Routine Septic olecranon bursitis of right elbow 01/09/2024 12:55 PM EST ERYTHROCYTE SEDIMENTATION RATE (ESR) Lab Routine Septic olecranon bursitis of right elbow 01/09/2024 12:55 PM EST CRP (INFLAMMATORY MARKER) Lab Routine Septic olecranon bursitis of right elbow 01/09/2024 12:55 PM EST CBC Lab Routine Septic olecranon bursitis of right elbow 01/09/2024 12:55 PM EST DIFFERENTIAL, AUTOMATED Lab Routine Septic olecranon bursitis of right elbow 01/09/2024 12:55 PM EST Scheduled Procedures Name Priority Associated Diagnoses Date/Ti me COLONOSCOPY FLEXIBLE PROXIMAL DIAGNOSTIC Recall History of colon polyps Health Maintenance Due Date Last Done Comments DISCUSS TOBACCO CESSATION (REFER TO SMARTSET #6131) 1955 Alpha-1 Antitrypsin 12/04/1971 Cologuard 1998 Fecal [...] D LEVEL ONCE IN A LIFETIME-USE SMARTSET# 13630 Completed 06/16/2021, 05/03/2014 AAA Screening Completed 09/24/2022, [...] Advanced care planning/counseling discussion Other specified counseling Septic olecranon bursitis of right elbow documented in this encounter Advance Directives * [...] 9:12 AM 05/09/2003 10:12 AM Care Teams Uniformer Relationship Specialty Start Date End Date June, Ajit Sylvester MD [address] [address] PCP - General Family Medicine 03/11/22 documented as of this encounter
--- OUTSIDE RECORDS SUMMARY | 2024-02-04 00:26 | External Medical Summary | Summary of Care ---
Author Name Unknown Organization [facility] Address [address] [place] [address] Phone [phone] Care Team Providers Care Psychotherapist Counselor Name Role Phone Henry Bush MD Primary Care Provider [phone] Reason for Visit * Reason Comments Medication Refill Encounter Details Date Type Department Care Team (Late st Contact Info) Description 01/07/2024 Refill [facility], [facility] [address] [place] [address] JuneHenry MD [address] [place], [place] [phone] Chronic pain syndrome Allergies Active Allergy Reactions [...] Aerosol SolutionIndicatio ns:Pulmonary emphysema, unspecified emphysema type ([facility]) INHALE TWO PUFFS BY MOUTH EVERY 4 [...] ons:COPD, group C, by GOLD 2017 classification ([facility]) Inhale 1 vial via nebulizer every 4 [...] PD, group C, by GOLD 2017 classification ([facility]) Inhale 1 Puff by mouth in the [...] tions:COPD, group D, by GOLD 2017 classification ([facility]) take two tablets by mouth on day [...] bedtime. 60 Capsule 2 01/09/20 24 Active Pregabalin 100 MG Oral Capsule (Lyrica)Indicatio ns:Chronic pain syndrome Take 1 Capsule by mouth in the morning and 1 Capsule before bedtime. 60 Capsule 2 4 7:48 AM EDT 09/29/19 24 024 Discontin ued(Refil l) Hospital, Clinic, or [...] & Plan (07/18/2023 9:48 AM EDT): Continue lymadhava Will add baclofen for prn use short [...] Classes - YA Class D - Inhaled Kwexrslvfuvjil-LOZN-KQCM Combination Inhaler (Trellegy) Remote Patient Monitoring Vendor: [...] Classes - YA Class D - Inhaled Piuldfaordmcdo-MHKC-BVTM Combination Inhaler (Trellegy) Remote Patient Monitoring Vendor: [...] LUNG, NOT ELSEWHERE CLASSIFIED 06/12/2002 09/14/2018 CHEST [id number] 04/09/200209/2018 ABN FD-INTRATHOR ORG NEC-akbar nodule 03/06/2002 [...] Telephone Encounter - Henry Bush MD - 01/09/2024 12:23 PM ESTSigned Prescriptions: Disp Refills Pregabalin 100 MG Oral Capsule (Lyrica) 60 Cap*2 Sig: Take 1 Capsule by mouth in the morning and 1 Capsule before bedtime. Authorizing Provider: HENRY BUSH * Telephone Encounter - Henry Bush MD - 01/09/2024 12:23 PM ESTSigned Prescriptions: Disp Refills Pregabalin 100 MG Oral Capsule (Lyrica) 60 Cap*2 Sig: Take 1 Capsule by mouth in the morning and 1 Capsule before bedtime. Authorizing Provider: HENRY BUSH * Telephone Encounter - Ronel CarnesCHERELLE - 01/09/2024 12:08 PM EST Did you pend patient's preferred pharmacy and medication before forwarding?yes Pharmacy: [facility] Pending Prescriptions: Disp Refills Pregabalin 100 MG Oral Capsule (Lyrica) 60 Cap*2 Sig: Take 1 Capsule by mouth in the morning and 1 Capsule before bedtime. Last Visit: Visit date not found (in office), 10/20/2020 (telemedicine) Next Visit: Visit date not found If no future appointments scheduled, and last appointment is greater than a year ago, please schedule patient for a follow-up appointment Last date the medication was ordered: 10/17/23 Is this request for a controlled substance?No [...] Labs: Lab Results Component Value Date/Time CREAT 0.8 12/21/2023 08:35 AM CREAT 0.68 12/05/2023 12:00 AM CREAT 1.0 11/12/2019 10:25 AM POTASSIUM 4.6 12/21/2023 08:35 AM POTASSIUM 4.1 12/05/2023 12:00 AM POTASSIUM 5.0 04/25/2019 10:49 AM TSH 1.61 09/28/2013 01:43 PM LDL 100 01/11/2022 10:21 AM LDL 74 04/25/2019 10:49 AM ALT 161 (H) 12/21/2023 08:35 AM ALT 87 (H) 04/25/2019 10:49 AM HGBA1C 6.0 (H) 12/15/2023 02:40 PM HGBA1C 5.8 03/15/2008 11:00 AM * Telephone Encounter - Adrianna Pizano [facility] - 01/08/2024 8:21 PM EST Pending Prescriptions: Disp Refills Pregabalin 100 MG Oral Capsule (Lyrica) 60 Cap*2 Sig: Take 1 Capsule by mouth in the morning and 1 Capsule before bedtime. documented in this encounter Plan of Treatment Upcoming Encounters Date Type Department Care Team (Late st Contact Info) Description 01/11/2024 6:20 PM EST Office Visit [facility] [address] [phone] JuneHenry MD [address] [address] 01/13/2024 9:45 AM EST Office Visit Hematology/Oncology [facility] [place] [address] [place] [phone] Andrew Patel MD [address] [place] [address] 04/26/2024 3:00 PM EDT Office Visit Cardiology, [facility] [address] [facility] [place] [address] Toyin Wisdom PA-C [address] [place] [address] [place] [address] Scheduled Procedures Name Priority Associated Diagnoses Date/Ti me COLONOSCOPY FLEXIBLE PROXIMAL DIAGNOSTIC Recall History of colon polyps Health Maintenance Due Date Last Done Comments DISCUSS TOBACCO CESSATION (REFER TO SMARTSET #4231) 1955 Alpha-1 Antitrypsin 12/04/1971 Cologuard 1998 Fecal [...] D LEVEL ONCE IN A LIFETIME-USE SMARTSET# [id number] Completed 06/16/2021, 05/03/2014 AAA Screening Completed 09/24/2022, [...] Advanced care planning/counseling discussion Other specified counseling Chronic pain syndrome documented in this encounter [...] 9:12 AM 05/09/2003 10:12 AM Care Teams Psychotherapist Counselor Relationship Specialty Start Date End Date June, Henry Sylvester MD [address] [address] PCP - General Family Medicine 03/11/22 documented as of this encounter
--- OUTSIDE RECORDS SUMMARY | 2024-02-04 00:26 | External Medical Summary | Summary of Care ---
Author Name Unknown Organization [facility] Address [address] [place] [address] Phone [phone] Care Team Providers Care Newscast Producer Name Role Phone Ajit Moreno MD Primary Care Provider [phone] Reason for Visit * Reason Onset Date Comments Medication Problem 01/13/2024 Encounter Details Date Type Department Care Team (Late st Contact Info) Description 01/13/2024 Telephone [facility] [address] [place] [address] Ajit Moreno MD [address] [place] [address] Medication Problem Allergies Active Allergy [...] ns:COPD, group C, by GOLD 2017 classification ([facility]) Inhale 1 vial via nebulizer [...] ions:COPD, group D, by GOLD 2017 classification ([facility]) take two tablets by mouth [...] mgIndications:COPD, group D, by GOLD 2017 classification ([facility]),Centrilobular emphysema ([facility]) 2.5 mg NEBULIZER ONCE PRN [...] Classes - YA Class D - Inhaled Vbxdngtanqvkim-QVUD-OIGV Combination Inhaler (Trellegy) Remote Patient Monitoring Vendor: [...] Classes - YA Class D - Inhaled Lcoytfgixhlkbw-XXAH-FRRR Combination Inhaler (Trellegy) Remote Patient Monitoring Vendor: [...] Date Depression, unspecified 11/07/202312/09 Depression, unspecified 11/07/2023 11/09/2023 Hyperlipidemia 03/21/2023 04/07/2023 Morbid (severe) obesity due [...] LUNG, NOT ELSEWHERE CLASSIFIED 06/12/2002 09/14/2018 CHEST [id number] 04/09/200209/2018 ABN FD-INTRATHOR ORG NEC-akbar nodule 03/06/2002 [...] encounter Miscellaneous Notes * Addendum Note - Kathy Eddy LPN - 01/16/2024 9:17 AM ESTAddended by: KATHY EDDY on: 01/16/2024 09:17 AM Modules accepted: Orders * Telephone Encounter - Kathy Eddy LPN - 01/16/2024 9:16 AM EST Order is pended please sign if agreeable. * Telephone Encounter - Mayi Chau PHARM Tech - 01/13/2024 3:12 PM EST Pt is requesting a refill a blood thinner He has no idea what the name is He said it is not plavix Please advise Thank you for your assistance Mayi Chau Rolled Gold Plater II [facility] 01/13/2024,3:14 PM documented in this encounter Plan of Treatment Upcoming Encounters Date Type Department Care Team (Late st Contact Info) Description 01/17/2024 1:00 PM EST Office Visit [facility] [place] [address] [phone] JuneAjit MD [address] [address] 04/26/2024 3:00 PM EDT Office Visit Cardiology, [facility] [address] [facility] [place] [address] Toyin Wisdom PA-C [address] [place] [address] [place] [address] Scheduled Procedures Name Priority Associated Diagnoses Date/Ti [...] D LEVEL ONCE IN A LIFETIME-USE SMARTSET# 18480 Completed 06/16/2021, 05/03/2014 AAA Screening Completed 09/24/2022, [...] 9:12 AM 05/09/2003 10:12 AM Care Teams Newscast Producer Relationship Specialty Start Date End Date June, Ajit Sylvester [facility] [address] [facility] [address] PCP - General Family Medicine 03/11/22 documented as of this encounter
--- OUTSIDE RECORDS SUMMARY | 2024-02-04 00:26 | External Medical Summary | Summary of Care ---
Author Name Unknown Organization [facility] Address [address] [place] [address] Phone [phone] Care Team Providers Care Brake Repair Supervisor Name Role Phone Ajit Moreno MD Primary Care Provider [phone] Reason for Visit * Reason Onset Date Comments Medication Problem 01/13/2024 Encounter Details Date Type Department Care Team (Late st Contact Info) Description 01/13/2024 Telephone [facility] [address] [place] [address] Ajit Moreno MD [address] [place] [address] Medication Problem Allergies Active Allergy Reactions Criticality Noted Date Comments Fluticasone High 02/27/2020 Other reaction(s): lightheadedness and nausea Umeclidinium High 02/27/2020 Other reaction(s): lightheadedness and nausea Vilanterol High 02/27/2020 Other reaction(s): lightheadedness and nausea documented as of this encounter (statuses as of 01/14/2024) Medications Clobetasol Propionate 0.05 % External Ointment [...] ns:COPD, group C, by GOLD 2017 classification ([facility]) Inhale 1 vial via nebulizer [...] ions:COPD, group D, by GOLD 2017 classification ([facility]) take two tablets by mouth [...] mgIndications:COPD, group D, by GOLD 2017 classification ([facility]),Centrilobular emphysema ([facility]) 2.5 mg NEBULIZER ONCE PRN 10/03/2023 Active documented as of this encounter (statuses as of 01/14/2024) Active Problems Problem Noted Date Diagnosed Date [...] Classes - YA Class D - Inhaled Fzdouffxavigxw-UUPG-VQMR Combination Inhaler (Trellegy) Remote Patient Monitoring Vendor: [...] Classes - YA Class D - Inhaled Eujybhdnpiqcnw-PMQQ-FMZU Combination Inhaler (Trellegy) Remote Patient Monitoring Vendor: [...] as of this encounter (statuses as of 01/14/2024) Resolved Problems Problem Noted Date Diagnosed Date [...] LUNG, NOT ELSEWHERE CLASSIFIED 06/12/2002 09/14/2018 CHEST [id number] 04/09/200209/2018 ABN FD-INTRATHOR ORG NEC-akbar nodule 03/06/2002 [...] as of this encounter (statuses as of 01/14/2024) Immunizations Name Administration Dates Next Due COVID-19 [...] encounter Miscellaneous Notes * Telephone Encounter - Mayi Chau business office manager - 01/13/2024 3:12 PM EST Pt is requesting a refill a blood thinner He has no idea what the name is He said it is not plavix Please advise Thank you for your assistance Mayi Chau Laundry Laborer II [facility] 01/13/2024,3:14 PM documented in this encounter Plan of Treatment Upcoming Encounters Date Type Department Care Team (Late st Contact Info) Description 01/17/2024 1:00 PM EST [facility] [address] [phone] Ajit Moreno MD [address] [address] 04/26/2024 3:00 PM EDT Office Visit Cardiology, [facility] [address] [place] [address] Toyin Wisdom PA-C [address] [place] [address] [place] [phone] Scheduled Procedures Name Priority Associated Diagnoses Date/Ti me COLONOSCOPY FLEXIBLE PROXIMAL DIAGNOSTIC Recall History of colon polyps Health Maintenance Due Date Last Done Comments DISCUSS TOBACCO CESSATION (REFER TO SMARTSET #6946) 1955 Alpha-1 Antitrypsin 12/04/1971 Cologuard 1998 Fecal Occult Blood Test 1998 Sigmoidoscopy 1998 *ADVANCE DIRECTIVE NOT ON FILE 07/22/2018 *BISPHONATE OR OTHER ACCEPTABLE MEDICATION NEEDED FOR OSTEOPOROSIS (REFER TO SMARTSET #8457) 06/29/2022 Adult Wellness Visit 03/11/2023 03/11/2022, 08/31/2021, [...] D LEVEL ONCE IN A LIFETIME-USE SMARTSET# 05656 Completed 06/16/2021, 05/03/2014 AAA Screening Completed 09/24/2022, [...] 9:12 AM 05/09/2003 10:12 AM Care Teams Brake Repair Supervisor Relationship Specialty Start Date End Date June, Ajit Sylvester MD [address] [place] [address] PCP - General Family Medicine 03/11/22 documented as of this encounter
--- OUTSIDE RECORDS SUMMARY | 2024-02-04 00:26 | External Medical Summary | Summary of Care ---
Author Name Unknown Organization [facility] Address [address] [place] [address] Phone [phone] Care Team Providers Care Java Software Architect Name Role Phone Ajit Moreno MD Primary Care Provider [phone] Reason for Visit * Reason Comments Outpatient Testing Encounter Details Date Type Department Care Team (Late st Contact Info) Description 01/09/2024 12:50 PM EST Laboratory Laboratory, [facility] [address] [address] [place] [phone] [place], Laboratory [address] [place] [address] Septic olecranon bursitis of right elbow Allergies [...] C, by GOLD 2017 classification ([facility]) Inhale 1 vial via nebulizer every [...] ions:COPD, group D, by GOLD 2017 classification ([facility]) take two tablets by mouth on [...] mgIndications:COPD, group D, by GOLD 2017 classification ([facility]),Centrilobular emphysema ([facility]) 2.5 mg NEBULIZER ONCE PRN 10/03/2023 [...] Classes - YA Class D - Inhaled Hzlamwotjrbiwm-NVLR-NKXE Combination Inhaler (Trellegy) Remote Patient Monitoring Vendor: [...] Classes - YA Class D - Inhaled Qplbjqxxbyuwvw-BZTQ-VBXB Combination Inhaler (Trellegy) Remote Patient Monitoring Vendor: [...] LUNG, NOT ELSEWHERE CLASSIFIED 06/12/2002 09/14/2018 CHEST [id number] 04/09/200209/2018 ABN FD-INTRATHOR ORG NEC-akbar nodule 03/06/2002 [...] mRNA, LNP-s, No Pre serve, 2-Dose Series ([employer]) 05/22/2020,05/01/2020 Seasonal Influenza, PF, 6 M & [...] 01/11/2024 6:20 PM EST [facility] [place] [address] [phone] Ajit Moreno MD [address] [address] 01/13/2024 9:45 AM EST Office Visit Hematology/Oncology [facility] [address] [facility] [place] [phone] Andrew Patel MD [address] [facility] [place] [address] 04/26/2024 3:00 PM EDT Office Visit Cardiology, [facility] [address] [place] [address] Toyin Wisdom PA-C [address] [place] [address] [place] [phone] Pending Results Name Type Priority Associated Diagnoses [...] Comments DISCUSS TOBACCO CESSATION (REFER TO SMARTSET #1151) 1955 Alpha-1 Antitrypsin 12/04/1971 Cologuard 1998 Fecal [...] D LEVEL ONCE IN A LIFETIME-USE SMARTSET# 69124 Completed 06/16/2021, 05/03/2014 AAA Screening Completed 09/24/2022, [...] 9:12 AM 05/09/2003 10:12 AM Care Teams Java Software Architect Relationship Specialty Start Date End Date June, Ajit Sylvester MD [address] [address] PCP - General Family Medicine 03/11/22 documented as of this encounter
--- OUTSIDE RECORDS SUMMARY | 2024-02-04 00:27 | External Medical Summary ---
Author Name Unknown Address Unknown Organization [id number]:[facility] [place] [address] [place] [address] Laboratory Report Ordering Provider Test Date Status NITZA FARRELL 01/09/2024 12:55:04 Final Observation Date Value Abnormality Reference (Units ) Status WBC, Total 01/09/2024 12:55:04 9.43 4.00-10.80 (K/uL) Final RBC 01/09/2024 12:55:04 4.63 4.50-5.25 (M/uL) Final Hemoglobin 01/09/2024 12:55:04 14.3 14.0-16.8 (g/dL) Final HCT 01/09/2024 12:55:04 44.3 40.0-48.4 (%) Final MCV 01/09/2024 12:55:04 95.7 82.0-99.5 (fL) Final MCH 01/09/2024 12:55:04 30.9 27.0-34.0 (pg) Final MCHC 01/09/2024 12:55:04 32.3 32.0-36.0 (g/dL) Final RDW 01/09/2024 12:55:04 15.2 11.5-15.5 (%) Final Platelets 01/09/2024 12:55:04 364 140-400 (K/uL) Final MPV 01/09/2024 12:55:04 11.6 6.6-11.1 (fL) Final Nucleated erythrocytes/100 leukocytes [Ratio] in Blood by Automated count 01/09/2024 12:55:04 0 <=0 (/100 WBCs) Final Performing Location [facility] [address] [place] [address]
--- OUTSIDE RECORDS SUMMARY | 2024-02-04 00:27 | External Medical Summary ---
Author Name Unknown Address Unknown Organization [id number]:[facility] [place] [facility] [place] [address] Laboratory Report Ordering Provider Test Date Status 12/21/2023 08:35:00 Final Observation Date Value Abnormality Reference (Units ) Status WBC, Total 12/21/2023 08:35:00 9.94 4.00-10.80 (K/uL) Final RBC 12/21/2023 08:35:00 4.16 4.50-5.25 (M/uL) Final Hemoglobin 12/21/2023 08:35:00 12.8 Below low normal 14.0-16.8 (g/dL) Final HCT 12/21/2023 08:35:00 39.9 Below low normal 40.0-48.4 (%) Final MCV 12/21/2023 08:35:00 95.9 82.0-99.5 (fL) Final MCH 12/21/2023 08:35:00 30.8 27.0-34.0 (pg) Final MCHC 12/21/2023 08:35:00 32.1 32.0-36.0 (g/dL) Final RDW 12/21/2023 08:35:00 15.4 11.5-15.5 (%) Final Platelets 12/21/2023 08:35:00 366 140-400 (K/uL) Final MPV 12/21/2023 08:35:00 11.6 6.6-11.1 (fL) Final Nucleated erythrocytes/100 leukocytes [Ratio] in Blood by Automated count 12/21/2023 08:35:00 0 <=0 (/100 WBCs) Final Performing Location [facility] [place] [address] [place] [address]
--- OUTSIDE RECORDS SUMMARY | 2024-02-04 00:27 | External Medical Summary | Summary of Care ---
Author Name Unknown Organization [facility] Address [address] [place] [address] Phone [phone] Care Team Providers Care Assessment Manager Name Role Phone Ajit Moreno MD Primary Care Provider [phone] Encounter Details Date Type Department Care Team (Late st Contact Info) Description 12/30/2023 4:00 PM EST [facility] [address] [facility] [place] [address] Ajit Marin PA-C [address] [facility] [address] COPD, group C, by GOLD 2017 classification ([facility])*; Depression, unspecified depression type; Dyslipidemia, goal LDL below 70; Personal history of other venous thrombosis and embolism; History of septic arthritis; Advanced care planning/counseling discussion Allergies Active Allergy Reactions Criticality Noted Date Comments Fluticasone High 02/27/2020 Other reaction(s): lightheadedness and nausea Umeclidinium High 02/27/2020 Other reaction(s): lightheadedness and nausea Vilanterol High 02/27/2020 Other reaction(s): lightheadedness and nausea documented as of this encounter (statuses as of 12/31/2023) Medications Clobetasol Propionate 0.05 % External Ointment [...] ns:COPD, group C, by GOLD 2017 classification ([facility]) Inhale 1 vial via nebulizer every [...] Additional Information Patient not taking.Reported on 12/28/2023 Pregabalin 100 MG Oral Capsule (Lyrica)Indication s:Chronic pain syndrome Take 1 Capsule by mouth in the morning and 1 Capsule before bedtime. 60 Capsule 2 4 7:48 AM EDT 09/29/19 24 Active Prochlorperazine Maleate 5 MG [...] ions:COPD, group D, by GOLD 2017 classification ([facility]) take two tablets by mouth on [...] day as needed for Muscle spasms. Active Hospital, Clinic, or Other Facility Administered Medication Ordered Dose Route Frequency Start Date End Date Status Albuterol Sulfate (Proventil) (2.5 MG/3ML) 0.083% inhalation solution 2.5 mgIndications:COPD, group D, by GOLD 2017 classification (HCC),Centrilobular emphysema (HCC) 2.5 mg NEBULIZER ONCE PRN 10/03/2023 Active documented as of this encounter (statuses as of 12/31/2023) Active Problems Problem Noted Date Diagnosed Date [...] Classes - YA Class D - Inhaled Blovaybjntdxyi-POBG-OPIE Combination Inhaler (Trellegy) Remote Patient Monitoring Vendor: [...] Classes - YA Class D - Inhaled Sdbsvurlrfrsur-RZLM-KYYI Combination Inhaler (Trellegy) Remote Patient Monitoring Vendor: [...] as of this encounter (statuses as of 12/31/2023) Resolved Problems Problem Noted Date Diagnosed Date [...] LUNG, NOT ELSEWHERE CLASSIFIED 06/12/2002 09/14/2018 CHEST [id number] 04/09/200209/2018 ABN FD-INTRATHOR ORG NEC-akbar nodule 03/06/2002 [...] as of this encounter (statuses as of 12/31/2023) Immunizations Name Administration Dates Next Due COVID-19 [...] Sign Reading Time Taken Comments Blood Pressure 118/72 12/30/2023 10:51 AM EST Pulse 75 12/30/2023 10:51 AM EST Temperature - - Respiratory Rate - - Oxygen Saturation 96% 12/30/2023 10:51 AM EST Inhaled Oxygen Concentration - - Weight - - Height - - Body Mass Index - - documented in this encounter Progress Notes * Ajit Marin PA-C - 12/30/2023 10:08 AM EST Images from the original note were not included. [facility] Provider Visit Assessment and Plan Assessment & Plan COPD, group C, by GOLD 2017 classification [...] Classes - YA Class D - Inhaled Bhgwpnnjhewuom-DNVN-MEPX Combination Inhaler (Trellegy) Remote Patient Monitoring Vendor: No Connected RPM Device(s): No current devices Self-Management plan Prednisone 40mg daily for 5 days Rx Oral Antibiotic Rx (see medication list) High frequency nebulizer treatments every 4-6 hours around the clock Exacerbation plan Solumedrol 40mg IM/IV Chest Xray Additional Comments: Breathing good today Depression, unspecified depression type Mood stable on current dose lexapro Has ativan for prn use Dyslipidemia, goal LDL below 70 Statin recently d/c due to myalgias and elevated LFts Repeat labs ordered already Personal history of 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, duration lifelong Hematology appt scheduled for hypercoagulable workup History of septic arthritis Treatment completed and picc removed Has ID f/u next week 01/[address] Arcos Advanced care planning/counseling discussion Additional Medical Decision Making: Patient lives with spouse Spouse managing medications Patient independent with ADLs ID f/u 01/02 , Dr Arcos Hematology 01/12 Overall doing well today, no acute concerns Scheduled appointments in the next 60 days: Future Appointments-next 60 days Date/Time Provider Specialty Dept Phone 12/30/2023 4:00 PM Ajit Marin PA-C [facility] [phone] 01/11/2024 6:20 PM (Arrive by 6:05 PM) Ajit Moreno MD Family Medicine [phone] 01/13/2024 9:45 AM (Arrive by 9:30 AM) Andrew Patel MD Hematology Oncology [phone] 04/26/2024 3:00 PM (Arrive by 2:45 PM) Toyin Wisdom PA-C Cardiology [phone] A total of 35 minutes was spent face to face (via video-based telemedicine if designated as a telemedicine visit) Subjective Subjective Is this a Telemedicine Visit? No, this is an Home Visit. Reason For [facility] Visit: Follow-Up Current Concerns: Florentin Franks is a 68 year old male seen today for a [facility] provider visit. PMH includes COPD, TAYLOR, GERD, dyslipidemia, depression, h/o PE 05/17-05/20/23 - [facility] - COPD exac 06/12-06/16/23 - neck pain, muscle spasm 08/01-08/09/23 - [facility] - right elbow septic arthritis 09/22-09/25/23 - [facility] - covid, copd exac 10/09-10/11/23 - [facility] - acute on chronic resp failure 10/27-10/30/23 - [facility] - recurrent right elbow pain 11/20/23 - [facility] ER - PICC line bleeding 12/07-12/13/23 - [facility] - RLL PE, NSVT Today's concerns are: Denies any concerns Recent admissions as above Now on eliquis for PE Aware anticoag recommended lifelong due to recurrent blood clots Has hematology appt scheduled for hypercoagulable workup Breathing at baseline Denies SOB at rest Denies chest pain, palpitations Has intermittent right elbow pain No longer on iv antibiotic, PICC line removed Has ID f/u next week Appetite stable Bowels regular Denies urinary complaints Additional Current Outpatient Medications Medication Sig Dispense Refill Clobetasol Propionate 0.05 % External Ointment (Temovate) Apply 2x daily to rash on legs until resolved, then as needed when flaring 60 g 0 Albuterol Sulfate HFA 108 (90 Base) MCG/ACT Inhalation Aerosol Solution INHALE TWO PUFFS BY MOUTH EVERY 4 HOURS NEEDED FOR SHORTNESS OF BREATH or wheezing 8.5 g 5 Aspirin 81 MG Oral Tablet Chewable (Aspirin 81) Take 1 Tablet by mouth in the morning. 90 Tablet 3 Baclofen 5 MG Oral Tablet (Lioresal) Take 1 Tablet by mouth 3 times a day as needed for Muscle spasms. 30 Tablet 3 Cyanocobalamin 1000 MCG Oral Tablet (Cyanocobalamin) Take 1 Tablet by mouth in the morning. 90 Tablet 3 Escitalopram Oxalate 10 MG Oral Tablet (Lexapro) Take 1 Tablet by mouth in the morning. 90 Tablet 3 Levalbuterol HCl 1.25 MG/3ML Inhalation Nebulization Solution (Xopenex) Inhale 1 vial via nebulizerevery 4 hours as needed for Wheezing. 75 mL 0 Loperamide HCl 2 MG Oral Tablet (Imodium A-D) Take 2 Tablets by mouth 3 times a day as needed for Diarrhea. 90 Tablet 3 LORazepam 0.5 MG Oral Tablet (Ativan) Take 1 Tablet by mouth every 6 hours as needed for Agitation.20 Tablet 3 Meclizine HCl 12.5 MG Oral Tablet (Antivert) Take 1 Tablet by mouth 3 times a day as needed for Dizziness. 20 Tablet 0 Metoprolol Tartrate 25 MG Oral Tablet (Lopressor) Take 1/2 Tablet by mouth in the morning and 1/2 Tablet before bedtime. 60 Tablet 3 Ondansetron HCl 8 MG Oral Tablet (Zofran) Take 1 Tablet by mouth every 8 hours as needed for Nausea. 20 Tablet 3 Pantoprazole Sodium 40 MG Oral Tablet Delayed Release (Protonix) Take 1 Tablet by mouth in the morning and 1 Tablet before bedtime. 180 Tablet 3 predniSONE 20 MG Oral Tablet (Deltasone) Take 2 Tablets by mouth daily as needed for copd exacerbation for 5 days when directed (Patient not taking: Reported on 12/28/2023) 10 Tablet 3 Pregabalin 100 MG Oral Capsule (Lyrica) Take 1 Capsule by mouth in the morning and 1 Capsule beforebedtime. 60 Capsule 2 Prochlorperazine Maleate 5 MG Oral Tablet (Compazine) Take 1 Tablet by mouth every 6 hours as needed for Nausea. (Patient not taking: Reported on 10/21/2023) 30 Tablet 3 Nebulizer/Tubing/Mouthpiece Kit Use as directed 1 Kit 5 Trelegy Ellipta 200-62.5-25 MCG/ACT Aerosol Powder Breath Activated (Nojwyphdjqr-Nmppbdmbnbwn-Psmzhinpdd) Inhale 1 Puff by mouth in the morning. 60 Each 10 Triamcinolone Acetonide 0.1 % External Ointment (Aristocort) Apply 2 times a day to rash on lower legs when flaring (see printed checkout sheet) 80 g 2 guaiFENesin-Codeine 100-10 MG/5ML Oral Syrup (Robitussin AC) Take 5 mL by mouth every 4 hours as needed for Cough. (Patient not taking: Reported on 12/28/2023) 120 mL 0 Montelukast Sodium 10 MG Oral Tablet (Singulair) Take 1 Tablet by mouth at bedtime. 90 Tablet 3 Furosemide 40 MG Oral Tablet (Lasix) Take 1 Tablet by mouth in the morning for fluid accumulation or weight gain. 90 Tablet 3 Azithromycin 250 MG Oral Tablet (Zithromax) take two tablets by mouth on day one, then one tablet on days two through five as needed for copd rescue (Patient not taking: Reported on 12/28/2023) 6 Tablet 0 Magnesium Chloride 64 MG Oral Tablet Delayed Release (Mag-64) Take 2 Tablets by mouth in the morning. (Patient taking differently: Take 2 Tablets by mouth in the morning and 2 Tablets before bedtime.) 180 Tablet 1 Probiotic Acidophilus Oral Capsule Take 1 Capsule by mouth in the morning. 30 Capsule 1 Vancomycin IVPB injection Administer 262.5 mL intravenously in the morning and 262.5 mL before bedtime. (Patient not taking: Reported on 12/14/2023) Caspofungin Acetate 50 MG Intravenous Solution Reconstituted (Cancidas) Administer 50 mg intravenously in the morning. (Patient not taking: Reported on 12/28/2023) oxyCODONE HCl 10 MG Oral Tablet (Roxicodone) Take 1 Tablet by mouth every 6 hours as needed for Pain, Breakthrough. Apixaban 5 MG Oral Tablet (Eliquis) Take 1 Tablet by mouth in the morning and 1 Tablet before bedtime. 10mg twice a day for 7 days then 5mg twice a day thereafter. Cyclobenzaprine HCl 5 MG Oral Tablet (Flexeril) Take 1 Tablet by mouth 3 times a day as needed for Muscle spasms. Current Facility-Administered Medications Medication Dose Route Frequency Provider Last Rate Last Admin Albuterol Sulfate (Proventil) (2.5 MG/3ML) 0.083% inhalation solution 2.5 mg 2.5 mg Nebulizer Once PRN I have reviewed the following results: CMP, Hemoglobin A1C, and CBC Lab Results Component Value Date/Time LEFT VENTRICULAR EJECTION FRACTION 55 10/03/2023 02:19 PM Objective Objective Vitals: 12/30/23 1051 Pulse: 75 SpO2: 96% BP: 118/72 Last Weights: Wt Readings from Last 3 Encounters: 12/28/23 91.8 kg (202 lb 6.4 oz) 12/14/23 90.6 kg (199 lb 11.2 oz) 11/07/23 93.9 kg (207 lb) Last BPs: BP Readings from Last 4 Encounters: 12/30/23 118/72 12/28/23 112/68 12/15/23 112/70 12/14/23 100/60 General: alert and no distress Neuro: alert & oriented x 3 with fluent speech Heart: regular rate & rhythm and no murmur Lungs: decreased breath sounds, no wheeze, no rales, no rhonchi Abdomen: abdomen soft, non-tender, and normal bowel sounds Ext: Normal extremities without edema documented in this encounter Miscellaneous Notes * Assessment & Plan Note - Ajit Marin PA-C - 12/31/2023 7:34 AM EST Associated Problem(s): Depression Mood stable on current dose lexapro Has ativan for prn use * Assessment & Plan Note - Ajit Marin PA-C - 12/31/2023 7:34 AM EST Associated Problem(s): COPD, group C, by GOLD [...] Classes - YA Class D - Inhaled Nwmabsejgwtltc-SLIC-KRPN Combination Inhaler (Tejinder) Remote Patient Monitoring Vendor: No Connected RPM Device(s): No current devices Self-Management plan Prednisone 40mg daily for 5 days Rx Oral Antibiotic Rx (see medication list) High frequency nebulizer treatments every 4-6 hours around the clock Exacerbation plan Solumedrol 40mg IM/IV Chest Xray Additional Comments: Breathing good today * Assessment & Plan Note - Ajit Marin PA-C - 12/31/2023 7:34 AM EST Associated Problem(s): Dyslipidemia, goal LDL below 70 Statin recently d/c due to myalgias and elevated LFts Repeat labs ordered already * Assessment & Plan Note - Ajit Marin PA-C - 12/31/2023 7:34 AM EST Associated Problem(s): Personal history of other venous thrombosis and embolism On quis, duration lifelong Hematology appt scheduled for hypercoagulable workup * Assessment & Plan Note - Ajit Marin PA-C - 12/31/2023 7:34 AM EST Associated Problem(s): History of septic arthritis Treatment completed and picc removed Has ID f/u next week 01/[address] Arcos * ACP (Advance Care Planning) - Ajit Marin PA-C - 12/31/2023 7:32 AM EST Patient-centered Communication 12/30/2023 The patient/surrogate voluntarily agreed to participate in advance care planning discussion. They were advised that this is a separate service which may incur out of pocket cost in the form of copayment and/or deductibles. Location: Home Individual(s) present for conversation: Patient Decisions Synopsis Smart[employer]wish Most Recent Value Past ~10 years 03/02/2022 [...] SmartLink Most Recent Value Past ~10 years 12/31/2023 07:31 Discerning What Matters Most to the Patient In their own words, patient's UNDERSTANDING of their illness is: "I had an infection in my elbow, it still cracks sometimes" 12/31/2023 "I had an infection in my elbow, it still cracks sometimes" Their current SYMPTOMS include: Pain;Shortnes of breath;Reduced overall well being 12/31/2023 Pain;Shortnes of breath;Reduced overall well being The patient's HOPES are: Avoid further hospitalization;Maintain current functional abilities;Avoid the longterm;Avoid symptoms 01/25/2022 Avoid symptoms include: Pain;Nausea;Dyspnea 01/25/2022 The patient defines LIVING WELL as: going fishing 01/25/2022 The patient's cultural or spiritual BELIEFS that may affect health care decisions: none 01/25/2022 Source: Content from [employer] Program Aligning Care With What Matters Most: Synopsis Smartaddwish Most Recent Value Past ~10 years 03/02/2022 15:42 Aligning Care With What Matters Most Interventions/Choices: CPR;Intubation/mechanical ventilation;Non-invasive ventilation or BIPAP;Antibiotic therapy;IV hydration;Artificial nutrition;Surgical procedure;Blood transfusion;Lab draws;Dialysis;Transport 03/02/2022 CPR;Intubation/mechanical ventilation;Non-invasive ventilation or BIPAP;Antibiotic therapy;IV hydration;Artificial nutrition;Surgical procedure;Blood transfusion;Lab draws;Dialysis;Transport Rationale for Decisions Synopsis [employer]wish Most Recent Value Past ~10 years 03/02/2022 15:42 Intubation/mechanical ventilation Their goals for Intubation/mechanical ventilation treatment are: short term only 03/02/2022 short term only Source: Content from [employer] Program 5 minutes spent in direct ohzi-qz-[id number] discussion today, Ajit Marin PA-C documented in this encounter Plan of Treatment Upcoming Encounters Date Type Department Care Team (Late st Contact Info) Description 01/11/2024 6:20 PM EST [facility] [address] [place] [address] JuneAjit MD [address] [place] [phone] 01/13/2024 9:45 AM EST Office Visit Hematology/Oncology [facility] [address] [place] [address] Andrew Patel MD [address] [place] [address] 04/26/2024 3:00 PM EDT Office Visit Cardiology, [facility] [address] [place] [address] Toyin Wisdom PA-C [address] [place] [address] Scheduled Procedures Name Priority Associated Diagnoses Date/Ti me COLONOSCOPY FLEXIBLE PROXIMAL DIAGNOSTIC Recall History of colon polyps Health Maintenance Due Date Last Done Comments DISCUSS TOBACCO CESSATION (REFER TO SMARTSET #4481) 1955 Alpha-1 Antitrypsin 12/04/1971 Cologuard 1998 Fecal [...] D LEVEL ONCE IN A LIFETIME-USE SMARTSET# 12811 Completed 06/16/2021, 05/03/2014 AAA Screening Completed 09/24/2022, [...] 9:12 AM 05/09/2003 10:12 AM Care Teams Assessment Manager Relationship Specialty Start Date End Date June, Ajit Sylvester MD [address] [place] [phone] PCP - General Family Medicine 03/11/22 documented as of this encounter
--- OUTSIDE RECORDS SUMMARY | 2024-02-04 00:27 | External Medical Summary ---
Author Name Unknown Address Unknown Organization [id number]:[facility] - [address] [facility] [address] Laboratory Report Ordering Provider Test Date Status 12/21/2023 08:35:00 Final Observation Date Value Abnormality Reference (Units ) Status BUN 12/21/2023 08:35:00 19 6-20 (mg/dL) Final Creatinine 12/21/2023 08:35:00 0.8 0.6-1.2 (mg/dL) Final Glomerular filtration rate/1.73 sq M.predicted [Volume Rate/Area] in Serum, Plasma or Blood by Creatinine-based formula (CKD-EPI) 12/21/2023 08:35:00 >90 >=60 (mL/min) Final eGFR is calculated based on the CKD-EPI 2020 equation. Sodium 12/21/2023 08:35:00 141 135-146 (m mol/L) Final Potassium 12/21/2023 08:35:00 4.6 3.5-5.1 (m mol/L) Final Cl 12/21/2023 08:35:00 106 98-107 (mm ol/L) Final CO2 12/21/2023 08:35:00 25 22-32 (mmo l/L) Final Anion gap 12/21/2023 08:35:00 10 7-15 (mmol /L) Final Glucose 12/21/2023 08:35:00 100 70-120 (mg /dL) Final Albumin 12/21/2023 08:35:00 3.3 Below low normal 3.8 -5.0 (g/dL) Final AST (Aspartate aminotransferase) 12/21/2023 08:35:00 130 Above high normal 10-50 (U/L) Final Alk Phos 12/21/2023 08:35:00 194 Above high normal 35 -130 (U/L) Final Bilirubin, Total 12/21/2023 08:35:00 0.2 <=1 .2 (mg/dL) Final Calcium 12/21/2023 08:35:00 9.1 8.4-10.2 ( mg/dL) Final Protein 12/21/2023 08:35:00 5.7 Below low normal 6.0 -8.3 (g/dL) Final ALT (Alanine aminotransferase) 12/21/2023 08:35:00 161 Above high normal 10-50 (U/L) Final Performing Location [facility] - [facility] [address] [facility] [address]
--- OUTSIDE RECORDS SUMMARY | 2024-02-04 00:27 | External Medical Summary ---
Author Name Unknown Address Unknown Organization [id number]:[facility] [place] - [address] [place] [address] Laboratory Report Ordering Provider Test Date Status NITZA FARRELL 01/09/2024 12:55:04 Final Observation Date Value Abnormality Reference (Units ) Status Erythrocyte sedimentation rate by Photometric method 01/09/2024 12:55:04 29 Above high normal <20 (mm/hour) Final Performing Location [facility] [place] - [address] [place] [address]
--- OUTSIDE RECORDS SUMMARY | 2024-02-04 00:27 | External Medical Summary | Summary of Care ---
Author Name Unknown Organization [facility] Address [address] [place] [address] Phone [phone] Care Team Providers Care Wild Life Manager Name Role Phone Ajit Moreno MD Primary Care Provider [phone] Reason for Visit * Reason Comments Outpatient Testing Encounter Details Date Type Department Care Team (Late st Contact Info) Description 12/21/2023 9:10 AM EST Laboratory Laboratory, [place] [address] [place] [address] [place] [address] [place] [address] Unspecified orthopedic aftercare; Chronic bronchitis, obstructive (HCC); Chronic hypoxemic respiratory failure (HCC) Allergies Active Allergy Reactions Criticality Noted Date Comments Fluticasone High 02/27/2020 Other reaction(s): lightheadedness and nausea Umeclidinium High 02/27/2020 Other reaction(s): lightheadedness and nausea Vilanterol High 02/27/2020 Other reaction(s): lightheadedness and nausea documented as of this encounter (statuses as of 12/21/2023) Medications Clobetasol Propionate 0.05 % External Ointment (Temovate)Indicati ons:Stasis dermatitis of both legs Apply 2x daily to rash on legs until resolved, then as needed when flaring 60 g 08/28/19 22 Active Albuterol Sulfate HFA 108 (90 Base) MCG/ACT Inhalation Aerosol SolutionIndication s:Pulmonary emphysema, unspecified emphysema type ([facility]) INHALE TWO PUFFS BY MOUTH EVERY 4 HOURS NEEDED FOR SHORTNESS OF BREATH or wheezing 8.5 g 5 09/29/19 24 Active Additional Information Patient not taking.Reported on 12/14/2023 Aspirin 81 MG Oral Tablet Chewable (Aspirin 81) Take 1 Tablet by mouth in the morning. 90 Tablet 3 4 7:48 AM EDT 09/29/19 24 Active Atorvastatin Calcium 80 MG Oral Tablet (Lipitor)Indicatio ns:Atherosclerosis of aorta (HCC) Take 1 Tablet by [...] ns:COPD, group C, by GOLD 2017 classification ([facility]) Inhale 1 vial via nebulizer [...] on 10/18/2023 Pregabalin 100 MG Oral Capsule (Lyrica)Indication s:Chronic [...] )Indications:COPD, group C, by GOLD 2017 classification ([facility]) Inhale 1 Puff by mouth [...] ions:COPD, group D, by GOLD 2017 classification ([facility]) take two tablets by mouth on [...] taking differently:128 mg OralBID (.AM/PM), Reported on 12/15/2023 Probiotic Acidophilus Oral CapsuleIndications :Hospital discharge follow-up [...] mgIndications:COPD, group D, by GOLD 2017 classification ([facility]),Centrilobular emphysema (HCC) 2.5 mg NEBULIZER ONCE PRN 10/03/2023 Active documented as of this encounter (statuses as of 12/21/2023) Active Problems Problem Noted Date Diagnosed Date History of septic arthritis 12/16/2023 Depression, unspecified 11/07/2023 Severe obesity (BMI 35.0-39.9) with comorbidity 05/27/2023 Food insecurity 05/16/2023 Overview: Per [facility] Protocol Personal history of other venous thrombosis and embolism 03/21/2023 Overview (05/24/2023): historical Dyslipidemia, goal LDL below 70 06/01/2022 Adjustment disorder with depressed mood 06/02/19 23 Assessment & Plan (07/18/2023 9:48 AM EDT): [...] Per COPD GOLD Classification Assessment & Plan (07/18/2023 9:44 AM EDT): [...] Classes - YA Class D - Inhaled Tfhsuwjofjexsy-LIPV-GWAC Combination Inhaler (Trellegy) Remote Patient Monitoring Vendor: [...] as of this encounter (statuses as of 12/21/2023) Resolved Problems Problem Noted Date Diagnosed Date Resolved Date Depression, unspecified 11/07/2023 11/0 09/2023 Hyperlipidemia 03/21/2023 [...] LUNG, NOT ELSEWHERE CLASSIFIED 06/12/2002 09/14/2018 CHEST [id number] 04/09/200209/2018 ABN FD-INTRATHOR ORG NEC-akbar nodule 03/06/2002 [...] as of this encounter (statuses as of 12/21/2023) Immunizations Name Administration Dates Next Due COVID-19 [...] Care Team (Late st Contact Info) Description 12/28/2023 11:30 AM EST Office Visit Cardiology, [facility] [address] [facility] [place] [address] Toyin Wisdom PA-C [address] [facility] [place] [address] 12/30/2023 9:45 AM EST Office Visit Hematology/Oncology [place] [address] [place] [id number] Andrew Patel MD [address] [place] [address] 12/30/2023 4:00 PM EST Home Visit [facility] [address] [place] [address] Rosa Parra RN [address] [place] [address] 01/11/2024 6:20 PM EST Office Visit [facility] [address] [place] [address] June, Ajit Sylvester MD [address] [place] [address] Pending Results Name Type Priority Associated Diagnoses Date /Time COMPREHENSIVE METABOLIC PANEL Lab Routine Unspecified orthopedic aftercare Chronic bronchitis, obstructive (HCC) Chronic hypoxemic respiratory failure (HCC) 12/21/2023 8:35 AM EST CBC Lab Routine Unspecified orthopedic aftercare Chronic bronchitis, obstructive (HCC) Chronic hypoxemic respiratory failure (HCC) 12/21/2023 8:35 AM EST CRP (INFLAMMATORY MARKER) Lab Routine Unspecified orthopedic aftercare Chronic bronchitis, obstructive (HCC) Chronic hypoxemic respiratory failure (HCC) 12/21/2023 8:35 AM EST ERYTHROCYTE SEDIMENTATION RATE (ESR) Lab Routine Unspecified orthopedic aftercare Chronic bronchitis, obstructive (HCC) Chronic hypoxemic respiratory failure (HCC) 12/21/2023 8:35 AM EST Scheduled Procedures Name Priority Associated Diagnoses [...] ASSESSMENT COMPLETED IN PAST YEAR FOR COPD 12/14/2024 12/15/2023 Colonoscopy 03/18/2026 03/18/2021, 02/0 10/2021, 12/18/2019, Additional history exists Colorectal Cancer Screening 03/18/2026 Hepatitis C Screening Completed 05/31/2017 , 08/07/2015, 05/03/2014 RETIRED - COLONOSCOPY-ANNUAL AGES 18-100 Discontinued 03/18/2021, 03/18/2021, 12/18/2019, Additional history exists RETIRED - COLONOSCOPY-EVERY 5 YRS AGES 18-100 Discontinued 03/18/2021, 03/18/2021, 12/18/2019, Additional history exists VITAMIN D LEVEL ONCE IN A LIFETIME-USE SMARTSET# [id number] Completed 06/16/2021, 05/03/2014 AAA Screening Completed 09/24/2022, [...] Advanced care planning/counseling discussion Other specified counseling Unspecified orthopedic aftercare Chronic bronchitis, obstructive (HCC) Obstructive chronic bronchitis without exacerbation Chronic hypoxemic respiratory failure (HCC) Chronic respiratory failure documented in this encounter Advance Directives * [...] 9:12 AM 05/09/2003 10:12 AM Care Teams Wild Life Manager Relationship Specialty Start Date End Date June, Ajit Sylvester MD [address] [place] [address] PCP - General Family Medicine 03/11/22 documented as of this encounter
--- OUTSIDE RECORDS SUMMARY | 2024-02-04 00:27 | External Medical Summary ---
Author Name Unknown Address Unknown Organization [id number]:[facility]ORY [facility] - [address] [place] [address] Laboratory Report Ordering Provider Test Date Status 12/21/2023 08:35:00 Final Observation Date Value Abnormality Reference (Units ) Status CRP, low-sensitivity 12/21/2023 08:35:00 7 Above high normal <=5 (mg/L) Final Performing Location LABORATORY [facility] - [address] [place] [address]
--- OUTSIDE RECORDS SUMMARY | 2024-02-04 00:27 | External Medical Summary | Summary of Care ---
Author Name Unknown Organization [facility] Address [address] [place] [address] Phone [phone] Care Team Providers Care Oil Process Stillman Name Role Phone Ajit Moreno MD Primary Care Provider [phone] Encounter Details Date Type Department Care Team (Late st Contact Info) Description 12/30/2023 Orders Only PATIENT PORTAL DO NOT DELETE THIS DEPT USED BY [place] [id number] Allergies Active Allergy Reactions Criticality Noted Date Comments Fluticasone High 02/27/2020 Other reaction(s): lightheadedness and nausea Umeclidinium High 02/27/2020 Other reaction(s): lightheadedness and nausea Vilanterol High 02/27/2020 Other reaction(s): lightheadedness and nausea documented as of this encounter (statuses as of 12/30/2023) Medications Clobetasol Propionate 0.05 % External Ointment [...] by GOLD 2017 classification ([facility]) Inhale 1 vial via nebulizer every [...] D, by GOLD 2017 classification ([facility]) take two tablets by mouth on [...] D, by GOLD 2017 classification ([facility]),Centrilobular emphysema ([facility]) 2.5 mg NEBULIZER ONCE PRN 10/03/2023 Active documented as of this encounter (statuses as of 12/30/2023) Active Problems Problem Noted Date Diagnosed Date Prediabetes 12/19/2023 Overview: Per Prediabetes protocol History of septic arthritis 12/16/2023 Depression, unspecified [...] Classes - YA Class D - Inhaled Ittevyvdbwhxjv-KZBC-ZUXH Combination Inhaler (Tejinder) Remote Patient Monitoring Vendor: [...] Split night pending 2002 PSG -- mild [facility] Obesity, Class I, BMI 30.0-34.9 (see actual BMI) 04/08/2011 Overview (04/08/2011): bmi= 32.58 04/08/11 Tobacco use disorder 04/08/2011 Gastroesophageal reflux disease with esophagitis 03/06/2002 Hiatal hernia 03/29/2001 documented as of this encounter (statuses as of 12/30/2023) Resolved Problems Problem Noted Date Diagnosed Date [...] LUNG, NOT ELSEWHERE CLASSIFIED 06/12/2002 09/14/2018 CHEST [id number] 04/09/200209/2018 ABN FD-INTRATHOR ORG NEC-akbar nodule 03/06/2002 [...] disorder 03/18/2000 012 OPEN WOUND, FINGER 03/18/2000 09/15/201 5 documented as of this encounter (statuses as of 12/30/2023) Immunizations Name Administration Dates Next Due COVID-19 [...] Description 12/30/2023 4:00 PM EST Home Visit [facility] [address] [facility] [place] [address] Rosa Parra RN [address] [facility] [place] [address] 01/11/2024 6:20 PM EST Office Visit Family [address] [phone] Ajit Moreno MD [address] [place] [address] 01/13/2024 9:45 AM EST Office Visit Hematology/Oncology [place] [address] [place] [address] Andrew Patel MD [address] [place] [address] 04/26/2024 3:00 PM EDT Office Visit Cardiology, [facility] [address] [facility] [place] [address] Toyin Wisdom PA-C [address] [place] [address] [place] [address] Scheduled Procedures Name Priority Associated Diagnoses Date/Ti me COLONOSCOPY FLEXIBLE PROXIMAL DIAGNOSTIC Recall History of colon polyps Health Maintenance Due Date Last Done Comments DISCUSS TOBACCO CESSATION (REFER TO SMARTSET #8793) 1953 Alpha-1 Antitrypsin 12/04/1971 Cologuard 1998 Fecal Occult Blood Test 1998 Sigmoidoscopy 1998 *ADVANCE DIRECTIVE NOT ON FILE 07/22/2018 *BISPHONATE OR OTHER ACCEPTABLE MEDICATION NEEDED FOR OSTEOPOROSIS (REFER TO SMARTSET #1408) 06/29/2022 Adult Wellness Visit 03/11/2023 03/11/2022, 08/31/2021, [...] D LEVEL ONCE IN A LIFETIME-USE SMARTSET# [id number] Completed 06/16/2021, 05/03/2014 AAA Screening Completed 09/24/2022, [...] 9:12 AM 05/09/2003 10:12 AM Care Teams Oil Process [place]man Relationship Specialty Start Date End Date June, Ajit Sylvester MD [address] [place] [address] PCP - General Family Medicine 03/11/22 documented as of this encounter
--- OUTSIDE RECORDS SUMMARY | 2024-02-04 00:27 | External Medical Summary | Summary of Care ---
Author Name Unknown Organization [facility] Address [address] [address] Phone [phone] Care Team Providers Care Film Editor Supervisor Name Role Phone Ajit Moreno MD Primary Care Provider [phone] Reason for Visit * Reason Comments Hospital Follow-Up [facility] Encounter Details Date Type Department Care Team (Late st Contact Info) Description 12/28/2023 11:30 AM EST Office Visit Cardiology, [facility] [address] [facility] [place] [phone] Toyin Wisdom PA-C [address] [place] [address] [place] [address] Hospital discharge follow-up*; NSVT (nonsustained ventricular tachycardia) (HCC); Chronic heart failure with preserved ejection fraction (HCC); HTN, goal below 140/80; Dyslipidemia, goal LDL below 70; Other acute pulmonary embolism without acute cor pulmonale (HCC) Allergies Active Allergy Reactions Criticality Noted Date Comments Fluticasone High 02/27/2020 Other reaction(s): lightheadedness and nausea Umeclidinium High 02/27/2020 Other reaction(s): lightheadedness and nausea Vilanterol High 02/27/2020 Other reaction(s): lightheadedness and nausea documented as of this encounter (statuses as of 12/28/2023) Medications Clobetasol Propionate 0.05 % External Ointment (Temovate)Indicat ions:Stasis dermatitis of both legs Apply 2x daily to rash on legs until resolved, then as needed when flaring 60 g 022 Active Albuterol Sulfate HFA 108 (90 Base) MCG/ACT Inhalation Aerosol SolutionIndicatio ns:Pulmonary emphysema, unspecified emphysema type (HCC) INHALE TWO PUFFS BY MOUTH EVERY 4 HOURS NEEDED FOR SHORTNESS OF BREATH or wheezing 8.5 g 5 024 Active Aspirin 81 MG Oral Tablet Chewable (Aspirin 81) Take 1 Tablet by mouth in the morning. 90 Tablet 3 10/17/19 24 7:48 AM EDT 024 Active Baclofen 5 MG Oral Tablet (Lioresal) Take 1 Tablet by mouth 3 times a day as needed for Muscle spasms. 30 Tablet 3 024 Active Cyanocobalamin 1000 MCG Oral Tablet (Cyanocobalamin) Take 1 Tablet by mouth in the morning. 90 Tablet 3 10/17/19 24 7:48 AM EDT 024 Active Escitalopram Oxalate 10 MG Oral Tablet (Lexapro)Indicati ons:Mood swings Take 1 Tablet by mouth in the morning. 90 Tablet 3 11/05/19 24 10:04 AM EDT 024 Active Levalbuterol HCl 1.25 MG/3ML Inhalation Nebulization Solution (Xopenex)Indicati ons:COPD, group C, by GOLD 2017 classification ([facility]) Inhale 1 vial via nebulizer every 4 hours as needed for Wheezing. 75 mL 024 Active Loperamide HCl 2 MG Oral Tablet (Imodium A-D)Indications:D iarrhea, unspecified type Take 2 Tablets by mouth 3 times a day as needed for Diarrhea. 90 Tablet 3 024 Active LORazepam 0.5 MG Oral Tablet (Ativan)Indicatio ns:Anxiety Take 1 Tablet by mouth every 6 hours as needed for Agitation. 20 Tablet 3 024 Active Meclizine HCl 12.5 MG Oral Tablet (Antivert)Indicat ions:Dizziness Take 1 Tablet by mouth 3 times a day as needed for Dizziness. 20 Tablet 024 Active Metoprolol Tartrate 25 MG Oral Tablet (Lopressor) Take 1/2 Tablet by mouth in the morning and 1/2 Tablet before bedtime. 60 Tablet 3 10/19/19 24 3:47 PM EDT Active Ondansetron HCl 8 MG Oral Tablet (Zofran)Indicatio ns:Nausea without vomiting Take 1 Tablet by mouth every 8 hours as needed for Nausea. 20 Tablet 3 10/17/19 24 7:48 AM EDT 024 Active Pantoprazole Sodium 40 MG Oral Tablet Delayed Release (Protonix)Indicat ions:Gastroesopha geal reflux disease with esophagitis, unspecified whether hemorrhage Take 1 Tablet by mouth in the morning and 1 Tablet before bedtime. 180 Tablet 3 10/17/19 24 7:48 AM EDT 024 Active predniSONE 20 MG Oral Tablet (Deltasone) Take 2 Tablets by mouth daily as needed for copd exacerbation for 5 days when directed 10 Tablet 3 10/27/19 24 6:57 AM EDT Active Additional Information Patient not taking.Reported on 12/28/2023 Pregabalin 100 MG Oral Capsule (Lyrica)Indicatio ns:Chronic pain syndrome Take 1 Capsule by mouth in the morning and 1 Capsule before bedtime. 60 Capsule 2 10/17/19 24 7:48 AM EDT Active Prochlorperazine Maleate 5 MG Oral Tablet (Compazine)Indica tions:Nausea without vomiting Take 1 Tablet by mouth every 6 hours as needed for Nausea. 30 Tablet 3 Active Additional Information Patient not taking.Reported on 10/21/2023 Nebulizer/Tubing/ Mouthpiece Kit Use as directed 1 Kit 5 Active Trelegy Ellipta 200-62.5-25 MCG/ACT Aerosol Powder Breath Activated (Fluticasone-Umec lidinium-Vilanter ol)Indications:CO PD, group C, by GOLD 2017 classification ([facility]) Inhale 1 Puff by mouth in the morning. 60 Each Active Triamcinolone Acetonide 0.1 % External Ointment (Aristocort)Indic ations:Stasis dermatitis of both legs Apply 2 times a day to rash on lower legs when flaring (see printed checkout sheet) 80 g 2 Active guaiFENesin-Codei ne 100-10 MG/5ML Oral Syrup (Robitussin AC)Indications:Ch ronic cough Take 5 mL by mouth every 4 hours as needed for Cough. 120 mL Active Additional Information Patient not taking.Reported on 12/28/2023 Montelukast Sodium 10 MG Oral Tablet (Singulair) Take 1 Tablet by mouth at bedtime. 90 Tablet 3 024 Active Furosemide 40 MG Oral Tablet (Lasix)Indication s:Bilateral lower extremity edema Take 1 Tablet by mouth in the morning for fluid accumulation or weight gain. 90 Tablet 3 10/21/19 24 3:05 PM EDT 024 Active Azithromycin 250 MG Oral Tablet (Zithromax)Indica tions:COPD, group D, by GOLD 2017 classification ([facility]) take two tablets by mouth on day one, then one tablet on days two through five as needed for copd rescue 6 Tablet 10/27/19 24 7:34 AM EDT Active Additional Information Patient not taking.Reported on 12/28/2023 Magnesium Chloride 64 MG Oral Tablet Delayed Release (Mag-64)Indicatio ns:Hospital discharge follow-up Take 2 Tablets by mouth in the morning. 180 Tablet 1 Active Additional Information Patient taking differently:128 mg OralBID (.AM/PM), Reported on 12/28/2023 Probiotic Acidophilus Oral CapsuleIndication s:Hospital discharge follow-up Take 1 Capsule by mouth in the morning. 30 Capsule 1 Active Vancomycin IVPB injection Administer 262.5 mL [...] day as needed for Muscle spasms. Active Atorvastatin Calcium 80 MG Oral Tablet (Lipitor)Indicati ons:Atheroscleros is of aorta (HCC) Take 1 Tablet by mouth in the morning. 90 Tablet 3 10/17/19 24 7:48 AM EDT 024 2023 Discontinued Hospital, Clinic, or Other Facility Administered Medication Ordered Dose Route Frequency Start Date End Date Status Albuterol Sulfate (Proventil) (2.5 MG/3ML) 0.083% inhalation solution 2.5 mgIndications:COPD, group D, by GOLD 2017 classification ([facility]),Centrilobular emphysema ([facility]) 2.5 mg NEBULIZER ONCE PRN 10/03/2023 Active documented as of this encounter (statuses as of 12/28/2023) Active Problems Problem Noted Date Diagnosed Date [...] Classes - YA Class D - Inhaled Fcfubjtunscdpz-IBZK-LWYZ Combination Inhaler (Trellegy) Remote Patient Monitoring Vendor: [...] not improve, can start rescue kit Continue trele Atherosclerosis of aorta 01/05/2018 Controlled substance agreement signed 02/05/2015 Obstructive sleep apnea 08/23/2014 Overview (08/23/2014): Split night pending 2002 PSG -- mild [facility] Obesity, Class I, BMI 30.0-34.9 (see actual BMI) 04/08/2011 Overview (04/08/2011): bmi= 32.58 04/08/11 Tobacco use disorder 04/08/2011 Gastroesophageal reflux disease with esophagitis 03/06/2002 Hiatal hernia 03/29/2001 documented as of this encounter (statuses as of 12/28/2023) Resolved Problems Problem Noted Date Diagnosed Date [...] LUNG, NOT ELSEWHERE CLASSIFIED 06/12/2002 09/14/2018 CHEST [id number]-MSRH 04/09/200209/2018 ABN FD-INTRATHOR ORG NEC-akbar nodule 03/06/2002 [...] as of this encounter (statuses as of 12/28/2023) Immunizations Name Administration Dates Next Due COVID-19 mRNA, LNP-s, No Pre serve, 2-Dose Series ([employer]) 05/22/2020,05/01/2020 Seasonal Influenza, PF, 6 M & [...] Sign Reading Time Taken Comments Blood Pressure 112/68 12/28/2023 11:42 AM EST Pulse 60 12/28/2023 11:42 AM EST Temperature - - Respiratory Rate 16 12/28/2023 11:42 AM EST Oxygen Saturation - - Inhaled Oxygen Concentration - - Weight 91.8 kg (202 lb 6.4 oz) 12/28/2023 11:42 AM EST Height - - Body Mass Index 32.67 11/07/2023 2:11 PM EDT documented in this encounter Patient Instructions * Patient Instructions* Toyin Wisdom PA-C - 12/28/2023 12:09 PM EST Stop atorvastatin. Labs in 2 weeks. documented in this encounter Progress Notes * Toyin Wisdom PA-C - 12/28/2023 11:37 AM EST Images from the original note were not included. 12/28/2023 Cardiology Follow Up Past Medical History: HFpEF NSVT HTN HLD Hx PE 2016, 12/2023 Descending aortic thrombus 02/2023 COPD/emphysema [facility] HPI: Florentin Franks is a 68 year old male who presents for hospital discharge follow up and to establish care. Admitted at [facility] 12/07-12/13/23 with acute RLL PE. During hospitalization developed sudden onset chest pain after 22 beat run of NSVT. Found to have low magnesium. Cardiology consulted, normal echo, chest CT negative for aortic dissection. Recommended outpatient ischemic workup and hypercoagulable workup. Presents today unaccompanied. Overall feels well since hospitalization, but continues to have generalized weakness. Has chronic dyspnea on exertion. Lightheadedness at times. Denies chest pain, palpitations, edema, PND, orthopnea, lightheadedness, syncope. Lives with who helps manage medications. Notes he is not very active. Has trouble with memory. Smokes 0.3 ppd. No alcohol or illicit drug use. Doesn't drink water, drinks 20- 30 cups of coffee a day. Family history: Father- [place] in his 60s REVIEW OF SYSTEMS: See HPI for pertinent positives. All others negative other than those noted in the HPI. CONSTITUTIONAL: No change in weight, No weakness, No fatigue and No fevers, No sweats or chills. PULMONARY: No cough, sputum, or hemoptysis, No wheezing, No shortness of breath and No recent change in breathing. CARDIOVASCULAR: No chest pain, No dyspnea on exertion, No edema, No palpitations and No syncope. GASTROINTESTINAL: No abdominal pain, No change in bowel habits, No significant heartburn, No nausea, No vomiting, No diarrhea, No constipation, No blood in stools or black tarry stools. No dysphagia. HEMATOLOGIC: No abnormal bleeding and No bruising. NEUROLOGICAL: Normal balance, No headaches and No weakness. Review of patient's allergies indicates: Allergen Reactions Fluticasone Other reaction(s): lightheadedness and nausea Umeclidinium Other reaction(s): lightheadedness and nausea Vilanterol Other reaction(s): lightheadedness and nausea Current Outpatient Medications Medication Sig Dispense Refill [...] mouth in the morning. 90 Tablet 3 Cyanocobalamin 1000 MCG Oral Tablet (Cyanocobalamin) Take 1 Tablet by mouth in the morning. 90 Tablet 3 Escitalopram Oxalate 10 MG Oral Tablet (Lexapro) Take 1 Tablet by mouth in the morning. 90 Tablet 3 Meclizine HCl 12.5 MG Oral [...] 1 Tablet before bedtime. 180 Tablet 3 Pregabalin 100 MG Oral Capsule (Lyrica) Take 1 Capsule by mouth in the morning and 1 Capsule beforebedtime. 60 Capsule 2 Trelegy Ellipta 200-62.5-25 MCG/ACT Aerosol Powder Breath Activated (Fmtfzwinjjl-Gaxngcgpjnzs-Wsfwdgmpcx) Inhale 1 Puff by mouth in the morning. 60 Each 10 Triamcinolone Acetonide 0.1 % External Ointment (Aristocort) Apply 2 times a day to rash on lower legs when flaring (see printed checkout sheet) 80 g 2 Montelukast Sodium 10 MG Oral Tablet (Singulair) Take 1 Tablet by mouth at bedtime. 90 Tablet 3 Furosemide 40 MG Oral Tablet (Lasix) Take 1 Tablet by mouth in the morning for fluid accumulation or weight gain. 90 Tablet 3 Magnesium Chloride 64 MG Oral Tablet Delayed Release (Mag-64) Take 2 Tablets by mouth in the morning. (Patient taking differently: Take 2 Tablets by mouth in the morning and 2 Tablets before bedtime.) 180 Tablet 1 Probiotic Acidophilus Oral Capsule Take 1 Capsule by mouth in the morning. 30 Capsule 1 oxyCODONE HCl 10 MG Oral Tablet (Roxicodone) [...] a day as needed for Muscle spasms. Baclofen 5 MG Oral Tablet (Lioresal) Take 1 Tablet by mouth 3 times a day as needed for Muscle spasms. 30 Tablet 3 Levalbuterol HCl 1.25 MG/3ML Inhalation [...] hours as needed for Agitation.20 Tablet 3 predniSONE 20 MG Oral Tablet (Deltasone) Take 2 Tablets by mouth daily as needed for copd exacerbation for 5 days when directed (Patient not taking: Reported on 12/28/2023) 10 Tablet 3 Prochlorperazine Maleate 5 MG Oral Tablet (Compazine) Take 1 Tablet by mouth every 6 hours as needed for Nausea. (Patient not taking: Reported on 10/21/2023) 30 Tablet 3 Nebulizer/Tubing/Mouthpiece Kit Use as directed 1 Kit 5 guaiFENesin-Codeine 100-10 MG/5ML Oral Syrup (Robitussin AC) Take 5 mL by mouth every 4 hours as needed for Cough. (Patient not taking: Reported on 12/28/2023) 120 mL 0 Azithromycin 250 MG Oral Tablet (Zithromax) take two tablets by mouth on day one, then one tablet on days two through five as needed for copd rescue (Patient not taking: Reported on 12/28/2023) 6 Tablet 0 Vancomycin IVPB injection Administer 262.5 mL intravenously in the morning and 262.5 mL before bedtime. (Patient not taking: Reported on 12/14/2023) Caspofungin Acetate 50 MG Intravenous Solution Reconstituted (Cancidas) Administer 50 mg intravenously in the morning. (Patient not taking: Reported on 12/28/2023) Current Facility-Administered Medications Medication Dose Route Frequency Provider Last Rate Last Admin Albuterol Sulfate (Proventil) (2.5 MG/3ML) 0.083% inhalation solution 2.5 mg 2.5 mg Nebulizer Once PRN Past Medical History: Diagnosis Date Chronic pain syndrome 09/20/2018 CHRONIC TOBACCO MUCOSITIS 03/28/2006 COPD, moderate 06/07/2011 PER COPD PROTOCOL #24. LAST PFT -08/30/11 Esophageal reflux 03/06/2002 CARLOS (generalized anxiety disorder) 09/20/2018 Histoplasmosis Morbid (severe) obesity due to excess calories (HCC) 03/10/2022 Body Mass Index: 32.94 kg/m Abnormal 1.676 m (5' 6") as of 03/11/2022 92.6 kg (204 lb 1.6 oz) as of04/02/2022 NO LONGER CURRENT NEUROPATHY IN OTHER DIS 05/28/2004 Obstructive sleep apnea 08/23/2014 Split night pending 2002 PSG -- mild [facility] Pulmonary embolism (HCC) ROTATOR CUFF SYNDROME, BILATERAL SHOULDERS 05/09/2001 Family History Problem Relation Name Age of Onset Cancer Mother Non Hodgkins Lymphoma Heart Disorder Father Gastro-intestinal disorder Father ? jaundice, ETOH abuse. Blood Disorder Brother leukemia Heart Disorder Brother Stroke Brother Cancer Brother Leukemia Social History Socioeconomic History Marital status: Tobacco Use Smoking status: Every Day Current packs/day: 0.50 Average packs/day: 0.5 packs/day for 45.7 years (22.8 ttl pk-yrs) Types: Cigarettes Start date: 03/19/2003 Passive exposure: Past Smokeless tobacco: Never Tobacco comments: began at age 8, last tried to quit 2003, currently one cigarette a day Vaping Use Vaping status: Never Used Substance and Sexual Activity Alcohol use: No Drug use: No Social Needs Financial Resource Strain: Low Risk (04/26/2023) Financial Resource Strain Do you have any trouble paying for your medications, or do you think you might in the future? (Adult - for ages 18 years and over): No Food Insecurity: Food Insecurity Present (04/26/2023) Food Insecurity Do you need food for this week? (Adult - for ages 18 years and over): Yes Transportation Needs: No Transportation Needs (04/26/2023) Transportation Needs Do you have trouble getting a ride to medical visits or work? (Adult - for ages 18 years and over):Never True Social Connections: Socially Integrated (04/26/2023) Social Connections How often do you feel lonely or isolated from those around you? (Adult - for ages 18 years and over): Never Housing Stability: Low Risk (04/26/2023) Housing Stability Do you currently live in a alf or have no steady place to sleep at night? (Adult - for ages 18 years and over): No Do you think you are at risk of becoming homeless? (Adult - for ages 18 years and over): No OBJECTIVE/PHYSICAL EXAMINATION: BP 112/68 | Pulse 60 | Resp 16 | Wt 91.8 kg (202 lb 6.4 oz) | BMI 32.67 kg/m | BSA 2.07 m Wt Readings from Last 3 Encounters: 12/28/23 91.8 kg (202 lb 6.4 oz) 12/14/23 90.6 kg (199 lb 11.2 oz) 11/07/23 93.9 kg (207 lb) General: No acute distress. A+Ox3. HEENT: Normocephalic. Atraumatic. PERRL. EOMI. Conjunctiva and sclera clear. NECK: No carotid bruits. No JVD. Carotid upstrokes are brisk. Heart: RRR. S1 and S2 noted. No murmur. No rubs or gallops. PMI non displaced. Lungs: Clear to auscultation. No wheezes. No rhonchi. No rales. Abdomen: Normal bowel sounds. Soft. Nontender. No masses or organomegaly. No abdominal bruits. Extremities: 1+ bilateral LE edema. No clubbing or cyanosis. Pulses: radial=2/4, posterior tibial=2/4, dorsalis pedis = 2/4. NEURO: No focal deficits. PSYCH: Appropriate affect and insight. DATA Labs & Imaging Reviewed Below: EKG 12/28/23 Sinus rhythm with PVCs, 87 bpm, inferior infarct Echo 12/12/23 ([facility]) Echo 10/03/23 The left ventricular cavity size is normal. The LV wall thickness is mildly increased (concentric). The left ventricular wall motion is normal. The qualitative LV ejection fraction is 55-59% (normal). The left ventricular diastolic function is mildly abnormal (grade I). Mild aortic valve sclerosis is present. Zio 08/2023 Patient had a min HR of 52 bpm, max HR of 158 bpm, and avg HR of 73 bpm. Predominant underlying rhythm was Sinus Rhythm. 401 Supraventricular Tachycardia runs occurred, the run with the fastest interval lasting 5 beats with a max rate of 158 bpm, the longest lasting 11.8 secs with an avg rate of 107 bpm. Isolated SVEs were occasional (2.2%, 66215), SVE Couplets were occasional (1.2%, 6828), and SVE Triplets were rare (<1.0%, 1607). Isolated VEs were rare (<1.0%, 6787), VE Couplets were rare (<1.0%, 649), and VE Triplets were rare (<1.0%, 5). Frequency of supraventricular tachycardia not well defined with limited rhythm strips available forreview. Some rhythm strips appear to be sinus tachycardia with PACs. Isolated symptomatic event correlates with normal sinus rhythm. ASSESSMENT/PLAN: 68 year old male 1. Hospital discharge follow-up 2. NSVT (nonsustained ventricular tachycardia) (HCC) - feeling well since hospitalization, denies palpitations - echo with normal LVEF, no wall motion abnormality - will need ischemic workup once recovered from PE, consider at next appt - discussed increasing hydration and decreasing coffee intake, drinks a significant amount of coffee - continue aspirin 81 mg daily - continue metoprolol tartrate 12.6 mg twice daily 3. Chronic heart failure with preserved ejection fraction (HCC) - euvolemic on exam - continue furosemide 40 mg daily - heart failure education provided 4. HTN, goal below 140/80 - blood pressure within goal 5. Dyslipidemia, goal LDL below 70 - has myalgias and elevated LFTs - stop atorvastatin, repeat CMP in 2 weeks 6. Other acute pulmonary embolism without acute cor pulmonale (HCC) - History of pulmonary embolus 2016, 2023 and aortic thrombus 2023 - recommend lifelong anticoagulation with Eliquis 5 mg twice daily - recommend hypercoagulable workup, scheduled to see heme/onc this week, will defer to them DISPOSITION: Follow up 3 months or sooner if symptoms worsen/fail to improve. All questions were answered to the patients satisfaction. Patient advised to report to ED with any and all emergencies. The patient agrees to the above plan and will call with additional questions or concerns. Toyin Wisdom PA-C Cardiology, [address] [place] [address] I spent a total of 40 minutes on the date of service in preparation, delivery, and documentation ofthe care provided to Florentin Franks excluding any time spent in the performance of separately billed services. This chart was completed in part utilizing [employer] Speech Voice Recognition Software. Grammatical errors, random word insertions, pronoun errors, and incomplete sentences are an occasional consequence of this system due to software limitations, ambient noise, and hardware issues. Any formal questions or concerns about the content, text, or information contained within the body of this dictation should be directly addressed to the provider for clarification. documented in this encounter Nursing Notes * Yvette Brock CMA - 12/28/2023 11:34 AM EST Examination Room: 7 Name: Florentin Franks Date of : (1955). Reason for Visit: [facility] follow-up Interim Hospitalization(s): [facility] DC 12/12 for PE, chest pain Problems/Concerns: Denies Chest Pain/SOB: Denies [facility] Discussed: Yes [facility] is a way you can talk to your provider online through e-mail. Would you like to sign up? I can activate it for you? DECLINES Patient was instructed to not get up on the exam table until directed and assisted by their provider; patient is to remain seated in the chair/ wheelchair/ exam table for fall prevention and safety reasons. Patient is aware to have assistance to step down off exam table with personnel. Patient voiced full comprehension of instructions. documented in this encounter Plan of Treatment Upcoming Encounters Date Type Department Care Team (Late st Contact Info) Description 12/30/2023 9:45 AM EST Office Visit Hematology/Oncology [facility] [address] [facility] [place] [address] Andrew Patel MD [address] [facility] [place] [address] 12/30/2023 4:00 PM EST Home Visit [facility] [address] [facility] [place] [address] Rosa Parra RN [address] [facility] [place] [address] 01/11/2024 6:20 PM EST Office Visit [facility] [address] [place] [address] Ajit Moreno MD [address] [place] [address] 04/26/2024 3:00 PM EDT Office Visit Cardiology, [facility] [address] [facility] [place] [address] Toyin Wisdom PA-C [address] [place] [phone] Scheduled Orders Name Type Priority Associated Diagnoses Orde r Schedule EKG EKG Routine Hospital discharge follow-up Expected: 12/28/2023 (Approximate), Expires: 01/26/2025 COMPREHENSIVE METABOLIC PANEL Lab Routine Chronic heart failure with preserved ejection fraction (HCC) Expected: 01/11/2024, Expires: 12/27/2024 Scheduled Procedures Name Priority Associated Diagnoses Date/Ti me COLONOSCOPY FLEXIBLE PROXIMAL DIAGNOSTIC Recall History of colon polyps Health Maintenance Due Date Last Done Comments DISCUSS TOBACCO CESSATION (REFER TO SMARTSET #[id number]) 1955 Alpha-1 Antitrypsin 12/04/1971 Cologuard 1998 Fecal Occult Blood Test 1998 Sigmoidoscopy 1998 *ADVANCE DIRECTIVE NOT ON FILE 07/22/2018 *BISPHONATE OR OTHER ACCEPTABLE MEDICATION NEEDED FOR OSTEOPOROSIS (REFER TO SMARTSET #7706) 06/29/2022 Adult Wellness Visit 03/11/2023 03/11/2022, 08/31/2021, [...] D LEVEL ONCE IN A LIFETIME-USE SMARTSET# [id number] Completed 06/16/2021, 05/03/2014 AAA Screening Completed 09/24/2022, [...] Advanced care planning/counseling discussion Other specified counseling Hospital discharge follow-up- Primary Other follow-up examination NSVT (nonsustained ventricular tachycardia) (HCC) Paroxysmal ventricular tachycardia Chronic heart failure with preserved ejection fraction (HCC) HTN, goal below 140/80 Unspecified essential hypertension Dyslipidemia, goal LDL below 70 Other and unspecified hyperlipidemia Other acute pulmonary embolism without acute cor pulmonale (HCC) documented in this encounter Advance Directives [...] 9:12 AM 05/09/2003 10:12 AM Care Teams Film Editor Supervisor Relationship Specialty Start Date End Date June, Ajit Sylvestre MD [address] [place] [address] PCP - General Family Medicine 03/11/22 documented as of this encounter
--- OUTSIDE RECORDS SUMMARY | 2024-02-04 00:27 | External Medical Summary ---
Author Name Unknown Address Unknown Organization K01:LABORATORY [facility] - [address] [facility] [place] [address] Laboratory Report Ordering Provider Test Date Status NITZA FARRELL SRI 01/09/2024 12:55:04 Final Observation Date Value Abnormality Reference (Units ) Status SYNC LEUKOCYTES IN BLOOD BY AUTOMATED COUNT 01/09/2024 12:55:04 9.43 4.00-10.80 (K/uL) Final Segs 01/09/2024 12:55:04 61.8 40.0-75.0 (%) Final Lymphs % 01/09/2024 12:55:04 24.2 18.0-42.0 (%) Final Monos 01/09/2024 12:55:04 10.6 1.0-11.0 (%) Final Eosinophils 01/09/2024 12:55:04 2.4 0.0-6.0 (%) Final Basos 01/09/2024 12:55:04 0.6 0.0-2.0 (%) Final Immature Granulocyte, Percent 01/09/2024 12:55:04 0.4 0.0-2.0 (%) Final Absolute Segs 01/09/2024 12:55:04 5.82 1.80-7.70 (K/uL) Final Lymphs, absolute 01/09/2024 12:55:04 2.28 1.00-4.80 (K/ul) Final Monos, Abs 01/09/2024 12:55:04 1.00 0.00-1.10 (K/uL) Final Eos, Abs 01/09/2024 12:55:04 0.23 0.00-0.70 (K/uL) Final Basos, Abs 01/09/2024 12:55:04 0.06 0.00-0.20 (K/uL) Final Immature Granulocytes, Number 01/09/2024 12:55:04 0.04 0.00-0.20 (K/uL) Final Performing Location LABORATORY [facility] - [address] [facility] [address]
--- OUTSIDE RECORDS SUMMARY | 2024-02-04 00:27 | External Medical Summary | Summary of Care ---
Author Name Unknown Organization [facility] Address [address] [place] [address] Phone [phone] Care Team Providers Care Cephalometric Technician Name Role Phone Ajit Moreno MD Primary Care Provider [phone] Reason for Visit * Reason Comments Outpatient Testing Encounter Details Date Type Department Care Team (Late st Contact Info) Description 12/21/2023 9:10 AM EST Laboratory Laboratory, [place] [address] [place] [address] [place], [facility] [address] [place] [address] Unspecified orthopedic aftercare; Chronic bronchitis, [...] Aerosol SolutionIndication s:Pulmonary emphysema, unspecified emphysema type ([facility]) INHALE TWO PUFFS BY MOUTH [...] ns:COPD, group C, by GOLD 2017 classification ([facility]) Inhale 1 vial via nebulizer [...] )Indications:COPD, group C, by GOLD 2017 classification ([facility] [...] ions:COPD, group D, by GOLD 2017 classification ([facility]) take two tablets by mouth [...] mgIndications:COPD, group D, by GOLD 2017 classification ([facility]),Centrilobular emphysema (HCC) 2.5 mg NEBULIZER [...] Classes - YA Class D - Inhaled Xtztuqskdrlwmf-CSTT-MHII Combination Inhaler (Trellegy) Remote Patient Monitoring Vendor: [...] LUNG, NOT ELSEWHERE CLASSIFIED 06/12/2002 09/14/2018 CHEST [id number] 04/09/200209/2018 ABN FD-INTRATHOR ORG NEC-akbar nodule 03/06/2002 [...] 12/28/2023 11:30 AM EST Office Visit Cardiology, [facility] [address] [facility] [place] [address] Toyin Wisdom PA-C [address] [facility] [place] [address] 12/30/2023 9:45 AM EST Office Visit Hematology/Oncology [facility] [place] [address] [place] [phone] Andrew Patel MD [address] [place] [address] 12/30/2023 4:00 PM EST [facility] Visit [facility] [address] [place] [address] Rosa Parra RN [address] [place] [address] 01/11/2024 6:20 PM EST Office Visit [facility] [address] [place] [address] June, Ajit Sylvester MD [address] [place] [address] Pending Results Name Type Priority Associated Diagnoses [...] D LEVEL ONCE IN A LIFETIME-USE SMARTSET# [id number] Completed 06/16/2021, 05/03/2014 AAA Screening Completed 09/24/2022, [...] 9:12 AM 05/09/2003 10:12 AM Care Teams Cephalometric Technician Relationship Specialty Start Date End Date June, Ajit Sylvester MD [address] [place] [address] PCP - General Family Medicine 03/11/22 documented as of this encounter
--- OUTSIDE RECORDS SUMMARY | 2024-02-04 00:27 | External Medical Summary | Summary of Care ---
Author Name Unknown Organization [facility] Address [address] [place] [address] Phone [phone] Care Team Providers Care Insulation Board Calender Operator Name Role Phone Ajit Moreno MD Primary Care Provider [phone] Reason for Visit * Reason Onset Date Comments Referral 12/16/2023 SP 10-Day Encounter Details Date Type Department Care Team (Late st Contact Info) Description 12/16/2023 New Patient Triage (THAI MASSEUR USE ONLY) Hematology/Oncology [facility] [address] [place] [address] Carly Conroy CRNP [address] [place] [address] Referral (SP 10-Day) Allergies Active Allergy Reactions Criticality Noted Date Comments Fluticasone High 02/27/2020 Other reaction(s): lightheadedness and nausea Umeclidinium High 02/27/2020 Other reaction(s): lightheadedness and nausea Vilanterol High 02/27/2020 Other reaction(s): lightheadedness and nausea documented as of this encounter (statuses as of 12/19/2023) Medications Clobetasol Propionate 0.05 % External Ointment (Temovate)Indicati ons:Stasis dermatitis of both legs Apply 2x daily to rash on legs until resolved, then as needed when flaring 60 g 08/28/19 22 Active Albuterol Sulfate HFA 108 (90 Base) MCG/ACT Inhalation Aerosol SolutionIndication s:Pulmonary emphysema, unspecified emphysema type ([facility]) INHALE TWO PUFFS BY [...] group C, by GOLD 2017 classification ([facility]) Inhale 1 vial via [...] )Indications:COPD, group C, by GOLD 2017 classification ([facility]) Inhale 1 Puff by [...] ions:COPD, group D, by GOLD 2017 classification ([facility]) take two tablets by [...] group D, by GOLD 2017 classification ([facility]),Centrilobular emphysema (HCC) 2.5 mg NEBULIZER ONCE PRN 10/03/2023 Active documented as of this encounter (statuses as of 12/19/2023) Active Problems Problem Noted Date Diagnosed Date [...] Classes - YA Class D - Inhaled Urtykeqgdnsnnf-OYWT-OXRX Combination Inhaler (Trellegy) Remote Patient Monitoring Vendor: [...] as of this encounter (statuses as of 12/19/2023) Resolved Problems Problem Noted Date Diagnosed Date [...] LUNG, NOT ELSEWHERE CLASSIFIED 06/12/2002 09/14/2018 CHEST [id number] 04/09/200209/2018 ABN FD-INTRATHOR ORG NEC-akbar nodule 03/06/2002 [...] as of this encounter (statuses as of 12/19/2023) Immunizations Name Administration Dates Next Due COVID-19 mRNA, LNP-s, No Pre serve, 2-Dose Series ([employer]) 05/22/2020,05/01/2020 Seasonal Influenza, PF, 6 M & [...] AM EDT documented as of this encounter Progress Notes * Tianna Richardson LPN - 12/19/2023 12:40 PM EST Discussed care plan with patient or proxy?: Yes, Spoke with patient's , Ciara. She accepted offer for appointment on the same day as her return appointment, Tuesday12/30/2023 at 9:45 am with . She verbalized understanding and denies any needs at this time. Communicated with patient on Date (morales/eneida/gay): 12/19/2023 at Time (health system): 12:36 PM Additional imaging needed: No Additional imaging orders pended: No Further labs recommended and ordered: No Bone Marrow biopsy recommended:No [facility] clinic review recommended: No * Carly Conory CRNP - 12/16/2023 2:50 PM EST Hematology New Referral Triage Note 68 y/o male referred for history of pulmonary embolism. PMH of COPD, CHF, DLD, TAYLOR, GERD, obesity, and depression. 60+ pack year smoking history. Patient was admitted to [facility] from 12/08/2023 - 12/13/2023. Was receiving IV antibiotics through PICC line for recent olecranon septic bursitis in October. Presented to [facility] 12/08/23 with complaints of SOB. Imaging showed small segmental/subsegmental pulmonary embolus in the right lower lobe. BLE venous doppler negative for DVT. Started on heparin drip which was transitioned to eliquis 10 mg x 7 days and 5 mg BID thereafter. Referral placed for deter mination of length of anticoagulation. Timeframe to be seen: 30 days Can the patient be seen by an advanced practitioner? no Are additional labs or studies needed prior to initial visit? no Is an infusion appointment needed after initial visit? no Discussed care plan with patient or proxy?: No Nurse to call. Previously seen hematology? No. [facility] Villagran Hematology * Tianna Richardson LPN - 12/16/2023 9:49 AM EST Images from the original note were not included. New Patient Triage What is the diagnosis/reason for referral?: History of pulmonary embolism Enter order ID here: [id number] Specialty specific documentation: Hematology/Oncology NEW PATIENT - HEMATOLOGY/ONCOLOGY SPECIALTY TRIAGE Triage needed?: Yes Referring provider name: Dr. Moreno Confirmation of diagnosis: Yes TRIAGE PLAN: Baseline/staging imaging complete: Yes 06/20/2023 Labs available: Yes Under consult 12/14/2023 Cardiology, labs on page 8 Referral to other specialty recommended (ie. Surgery, outpatient infusion): No Additional triage comments: Please see Consult [facility] Cardiology, 12/12/2023 Dr. Tiffanie Nash, 12/14/2023 documented in this encounter Plan of Treatment Upcoming Encounters Date Type Department Care Team (Late st Contact Info) Description 12/28/2023 11:30 AM EST Office Visit Cardiology, [facility] [address] [facility] [place] [address] Toyin Wisdom PA-C [address] [place] [address] 12/30/2023 9:45 AM EST Office Visit Hematology/Oncology [facility] [address] [facility] [place] [phone] Andrew Patel MD [address] [facility] [place] [address] 12/30/2023 4:00 PM EST [facility] Visit [facility] [address] [facility] [place] [address] Rosa Parra RN [address] [facility] [place] [address] 01/11/2024 6:20 PM EST Office Visit [facility] [address] [place] [address] Ajit Moreno MD [address] [place] [address] Scheduled Procedures Name Priority Associated Diagnoses Date/Ti [...] FOR COPD 12/14/2024 12/15/2023 Colonoscopy 03/18/2026 03/18/2021, 10/2021, 12/18/2019, Additional history exists Colorectal Cancer Screening 03/18/2026 Hepatitis C Screening Completed 05/31/2017 , 08/07/2015, 05/03/2014 RETIRED - COLONOSCOPY-ANNUAL AGES 18-100 Discontinued 03/18/2021, 03/18/2021, 12/18/2019, Additional history exists RETIRED - COLONOSCOPY-EVERY 5 YRS AGES 18-100 Discontinued 03/18/2021, 03/18/2021, 12/18/2019, Additional history exists VITAMIN D LEVEL ONCE IN A LIFETIME-USE SMARTSET# [id number] Completed 06/16/2021, 05/03/2014 AAA Screening Completed 09/24/2022, [...] 9:12 AM 05/09/2003 10:12 AM Care Teams Insulation Board Calender Operator Relationship Specialty Start Date End Date June, Ajit Sylvester MD [address] [place] [address] PCP - General Family Medicine 03/11/22 documented as of this encounter
--- OUTSIDE RECORDS SUMMARY | 2024-02-04 00:27 | External Medical Summary ---
Author Name Unknown Address Unknown Organization K01:LABORATORY [facility] - [address] [place] [address] Laboratory Report Ordering Provider Test Date Status 12/21/2023 08:35:00 Final Observation Date Value Abnormality Reference (Units ) Status Erythrocyte sedimentation rate by Photometric method 12/21/2023 08:35:00 36 Above high normal <20 (mm/hour) Final Performing Location LABORATORY [facility] - [address] [facility] [address]
--- OUTSIDE RECORDS SUMMARY | 2024-02-04 00:28 | External Medical Summary | Summary of Care ---
Author Name Unknown Organization [facility] Address [address] [place] [address] Phone [phone] Care Team Providers Care Terminal Supervisor Name Role Phone Ajit Moreno MD Primary Care Provider [phone] Reason for Visit * Reason Onset Date Comments Referral 12/16/2023 SP 10-Day Encounter Details Date Type Department Care Team (Late st Contact Info) Description 12/16/2023 New Patient Triage (BALANCE WEIGHER USE ONLY) Hematology/Oncology [facility] [address] [place] [address] Carly Conroy CRNP [address] [place] [address] Referral (SP 10-Day) Allergies Active [...] SolutionIndication s:Pulmonary emphysema, unspecified emphysema type ([facility]) INHALE TWO PUFFS BY MOUTH EVERY 4 [...] 2017 classification ([facility]) Inhale 1 vial via nebulizer every 4 [...] 2017 classification ([facility]) Inhale 1 Puff by mouth in the [...] 2017 classification ([facility]) take two tablets by mouth on day [...] 2017 classification ([facility]),Centrilobular emphysema (HCC) 2.5 mg NEBULIZER ONCE PRN [...] Classes - YA Class D - Inhaled Awubxvqnrcldll-GSBT-HMJZ Combination Inhaler (Trellegy) Remote Patient Monitoring Vendor: [...] LUNG, NOT ELSEWHERE CLASSIFIED 06/12/2002 09/14/2018 CHEST [id number]-[id number]-CWAB 04/09/200209/2018 ABN FD-INTRATHOR ORG NEC-akbar nodule 03/06/2002 [...] mRNA, LNP-s, No Pre serve, 2-Dose Series ([employer]) 05/22/2020,05/01/2020 Seasonal Influenza, PF, 6 M & [...] on file Are you (or your family) prisclila eless or worried that you might be [...] as of this encounter Progress Notes * Carly Conroy CRNP - 12/16/2023 2:50 PM EST Hematology New Referral Triage Note 68 y/o male referred for history of pulmonary embolism. PMH of COPD, CHF, DLD, TAYLOR, GERD, obesity, and depression. 60+ pack year smoking history. Patient was admitted to [facility] from 12/08/2023 - 12/13/2023. Was receiving IV antibiotics through PICC line for recent olecranon septic bursitis in October. Presented to [facility] 12/08/23 with complaints of SOB. Imaging showed small segmental/subsegmental pulmonary embolus in the right lower lobe. BLE venous doppler negative for DVT. Started on heparin drip which was transitioned to eliquis 10 mg x 7 days and 5 mg BID thereafter. Referral placed for deter mination of length of anticoagulation. Timeframe to be seen: days Can the patient be seen by [...] of pulmonary embolism Enter order ID here: [id number] Specialty specific documentation: Hematology/Oncology NEW PATIENT - HEMATOLOGY/ONCOLOGY SPECIALTY TRIAGE Triage needed?: Yes Referring provider name: Dr. Moreno Confirmation of diagnosis: Yes TRIAGE PLAN: Baseline/staging imaging complete: Yes 06/20/2023 Labs available: Yes Under consult 12/14/2023 Cardiology, labs on page 8 Referral to other specialty recommended (ie. Surgery, outpatient infusion): No Additional triage comments: Please see Consult [facility] Cardiology, 12/12/2023 Dr. Tiffanie Nash, 12/14/2023 documented in this encounter Plan of Treatment Upcoming Encounters Date Type Department Care Team (Late st Contact Info) Description 12/28/2023 11:30 AM EST Office Visit Cardiology, [facility] [address] [facility] [place] [address] Toyin Wisdom PA-C [address] [place] [address] [place] [address] 12/30/2023 9:45 AM EST Office Visit Hematology/Oncology [facility] [place] [address] [place] [phone] Andrew Patel MD 200 [facility] [place] [address] 12/30/2023 4:00 PM EST Home Visit [facility] [address] [place] [address] Rosa Parra, RN [address] [place] [address] 01/11/2024 6:20 PM EST Office Visit [facility] [address] [place] [address] June, Ajit Sylvester MD [address] [place] [address] Scheduled Procedures Name Priority Associated Diagnoses Date/Ti [...] D LEVEL ONCE IN A LIFETIME-USE SMARTSET# [id number] Completed 06/16/2021, 05/03/2014 AAA Screening Completed 09/24/2022, [...] 9:12 AM 05/09/2003 10:12 AM Care Teams Terminal Supervisor Relationship Specialty Start Date End Date June, Ajit Sylvester MD [address] [place] [address] PCP - General Family Medicine 03/11/22 documented as of this encounter
[2024-02-04 00:36] LABS: Albumin Globulin Ratio 1.2 (0.9-2); Albumin Level 3.7 gm/dl (3.4-5.0); BUN Creatinine Ratio 18.8 (10-20); Bilirubin,Total 0.4 mg/dl (0.2-1.0); Calcium 9.4 mg/dl (8.6-10.3); Creatinine Clr Calc Pharmacy 73.7 ml/min; Globulin 3.2 gm/dl (2.5-4.0); Magnesium 1.4 mg/dl (1.7-2.4); Potassium 4.5 mmol/L (3.5-5.1); Total Protein 6.9 gm/dl (6.0-8.3)
[2024-02-04 00:42] LABS: Troponin I High Sensitivity 12.8 pg/ml (0-20)
[2024-02-04 00:49] LABS: Prothrombin Time 10.5 Seconds (9.0-12.0)
[2024-02-04 00:52] LABS: Thyroid Stimulating Hormone 2.228 uIu/ml (0.300-4.500)
[2024-02-04 01:08] LABS: Adenovirus PCR Not Detected (NotDetected); Bordetella parapertussis PCR Not Detected (NotDetected); Bordetella pertussis PCR Not Detected (NotDetected); Chlamydia pneumoniae PCR Not Detected (NotDetected); Coronavirus 229E PCR Not Detected (NotDetected); Coronavirus CoV-2 (COVID19)PCR Not Detected (NotDetected); Coronavirus HKU1 PCR Not Detected (NotDetected); Coronavirus NL63 PCR Not Detected (NotDetected); Coronavirus OC43PCR Not Detected (NotDetected); Human Metapneumovirus PCR Not Detected (NotDetected); Influenza A PCR Not Detected (NotDetected); Influenza B PCR Not Detected (NotDetected); Mycoplasma pneumoniae PCR Not Detected (NotDetected); Parainfluenza Virus 1 PCR Not Detected (NotDetected); Parainfluenza Virus 2 PCR Not Detected (NotDetected); Parainfluenza Virus 3 PCR Not Detected (NotDetected); Parainfluenza Virus 4 PCR Not Detected (NotDetected); Respiratory Syncytial VirusPCR Not Detected (NotDetected); Rhinovirus/Enterovirus PCR Not Detected (NotDetected)
[2024-02-04] MEDS: fentaNYL citrate PF 100 MCG/2 ML VIAL IV ONE (01:18)
[2024-02-04] MEDS: FAMOTIDINE 20MG IV PUSH 20 MG/5 ML SYR IV STA (01:18)
--- NOTE | 2024-02-04 01:29 | XRay Report ---
EXAM: XR chest 1V portable CLINICAL HISTORY: CHEST PAIN, SOB KFK TECHNIQUE: Radiograph of chest was acquired. COMPARISON: None. FINDINGS: Left total shoulder arthroplasty implant in situ. Fibrotic changes are noted in the left lower lung zone. The remaining lungs are clear and well-expanded with no pulmonary infiltrate or pleural effusion. The cardiomediastinal silhouette is within normal limits. No acute osseous abnormality. IMPRESSION: 1. Left total shoulder arthroplasty in situ. 2. Left lower lung zone fibrotic changes. 3. No acute abnormality. Electronically signed by Jean Claude Jiang 02-04-2024 01:28 AM
[2024-02-04] MEDS: ALUMINUM/MAGNESIUM SUSP 30 ML UDC PO STA (02:12)
[2024-02-04] MEDS: OPTIRAY 320 125ml IV ONE (02:23)
[2024-02-04] MEDS: SODIUM CHLORIDE 0.9% 1,000 ML IV SCH (02:41)
--- NOTE | 2024-02-04 04:31 | CT Scan Report ---
EXAM: CT angio chest PE protocol CLINICAL HISTORY: substernal chest apin starting on the left and going across the diaphragm that began at 1730. Pt reports cough, chills, and feeling unwell for the past week. Pt recently completed antibiotics and predinsone but does not feel it helped. Pt does take blood thinner 2x daily. He weres 2L O2 at night. 88 ml opti 320 PW/GS TECHNIQUE: Contiguous axial images were obtained from the neck base through the upper abdomen following intravenous administration of contrast material. If IV contrast material had not been administered, the likelihood of detecting abnormalities relevant to the patient's condition would have been substantially decreased. In addition, sagittal and coronal reconstructions were performed. CT scan was performed according to ALARA (as low as reasonable achievable). COMPARISON: None. FINDINGS: The lungs show few fibrotic bands in bilateral lower lobes and lingula. Mild centrilobular and paraseptal emphysema is noted in bilateral upper lobes. No focal areas of consolidation. No pulmonary nodules are seen. The central airways are patent. There are no pleural effusions. No pneumothorax is seen. No axillary, hilar, or mediastinal adenopathy is identified. The visualized thyroid is unremarkable. The heart, aorta, and pulmonary arteries are of normal size and configuration. No pericardial effusion is identified. Imaged portions of the upper abdomen are unremarkable. Degenerative changes are noted in the visualized spine. IMPRESSION: 1. No obvious pulmonary embolism. 2. Mild centrilobular and paraseptal emphysema in bilateral upper lobes. 3. Fibrotic bands in bilateral lower lobes and lingula. Electronically signed by Jean Claude Jiang 02-04-2024 04:30 AM
[2024-02-04] MEDS: ALBUTEROL 0.083% NEBU SOLN 3 ML VIAL NEB STA (04:42)
[2024-02-04] MEDS: methylPREDNISolone 125 MG/2 ML VIAL IV STA (05:16)
[2024-02-04] MEDS: MAGNESIUM SULFATE / D5W 1 GM/100 ML BAG IV SCH (07:10)
[2024-02-04] MEDS: OPTIRAY 320 100ml IV ONE (07:56)
[2024-02-04] MEDS: 4.5GM X1 IV STA (08:04)
[2024-02-04] MEDS: HYDROCORTISONE SOD SUCCINATE 100 MG/2 ML VIAL IV STA (08:04)
--- NOTE | 2024-02-04 08:23 | CT Scan Report ---
CT abd pelvis IV con only CLINICAL HISTORY: abd pain, hypotension TECHNIQUE: Helical axial images of the abdomen and pelvis were obtained and displayed. Automated dose lowering techniques and/or adjustment according to patient size were utilized for this exam. This e xam was performed with intravenous contrast. CT DOSE: 1375.26 mGy.cm COMPARISON: Comparison is made to CT abdomen pelvis 04/04/2023 FINDINGS: Lower chest: Peripheral interstitial thickening and bronchial wall thickening is seen. Liver: Unremarkable. No focal lesions are seen. Gallbladder and biliary tree: No calcified gallstones. Normal caliber wall. No intra- or extrahepatic biliary ductal dilation. Pancreas: Unremarkable, no focal lesions. Spleen: Unremarkable. Adrenals: Unremarkable. Kidneys and ureters: Perinephric stranding is noted bilaterally. Bladder: Unremarkable. Reproductive organs: Unremarkable. Bowel: The appendix is normal. Lymph nodes Retroperitoneal: Unremarkable. Pelvic: Unremarkable. Mesenteric: Unremarkable. Peritoneum: Normal. Vessels: Atherosclerotic calcifications are seen. These are most prominent in the left common iliac a rtery. Abdominal wall: Left fat containing inguinal hernia. Bones: Compression deformities of L2, L4, and L5 are stable. Left trochanteric nail is stable. IMPRESSION: No acute abnormality to explain abdominal pain and hypotension. ACT 112: Negative or not required by law. Electronically signed by: Florin Soto M.D. 02/04/2024 8:21 AM
--- NOTE | 2024-02-04 08:26 | History & Physical Report ---
Date of Service February 04, 2024 Assessment & Plan (1) Hypotension: Plan: 68-year-old male with past medical history significant for dyslipidemia, prediabetes, COPD, obstructive sleep apnea on oxygen nightly, chronic heart failure with preserved ejection fraction, GERD, obesity, history of septic arthritis, chronic pain syndrome, history of PE, depression, comes because of lower chest pain and shortness of breath since yesterday evening and in the ER he was also found to have hypotension. Chest pain comes and goes in the lower part of chest. He is also feeling short of breath. And also having abdominal discomfort. No fevers at home. Feeling dizzy. Denies headache. Vision is okay. No earache. Has runny nose and sore throat. Bowels are moving okay. Micturating okay. Patient was in the hospital first week of December 2023 with acute PE placed on Eliquis at that time also patient had 20 beats of V. tach with chest pain and found to have low magnesium. Patient followed up with cardiology on December 28, 2023 and plan for ischemic workup once recovered from PE and also discussed of increasing hydration and decreasing coffee intake as he drinks significant amount of coffee and cardiology also stopped his atorvastatin because of myalgias and elevated liver LFTs and to follow-up with repeat CMP in 2 weeks. As per he is drinking a lot of coffee. And lately he is eating very spicy food as per . Hypotension Even after 3 L of fluids in the ER. Systolic blood pressure in the 80s Getting fourth liter Lactic acid 1.7 Random cortisol level 16.9 Procalcitonin 0.1 Creatinine 1.01 WBC 11 Respiratory BioFire negative Gave 1 dose of IV hydrocortisone 100 mg If not improving will transfer to ICU placed on empiric Zosyn and doxycycline CTA chest unremarkable Will follow CT abdomen pelvis Will follow the blood cultures and MRSA screen Close monitor Chest pain Initial troponin and EKG okay Will follow serial cardiac exams and echo Because of hypotension will consult cardiology Shortness of breath Has wheezing on exam COPD exacerbation Nebs [id number] and as needed Continue home inhalers IV steroids and antibiotics as above Obstructive sleep apnea Uses oxygen nightly Prediabetes Will follow blood sugars Chronic heart failure with preserved ejection fraction We will hold Lasix Getting fluids Monitor for volume overload Recent PE On Eliquis CTA chest unremarkable Abdominal discomfort Will follow CT abdomen pelvis Lipase 18 Hypomagnesia Will replace Follow labs History of left elbow olecranon septic arthritis Was treated with 6-week course of IV again and vancomycin History of diarrhea Will monitor Depression Generalized anxiety disorder On Lexapro Chronic pain syndrome Will hold his oxycodone and cyclobenzaprine for now GERD On Protonix DVT prophylaxis On Eliquis Disposition Telemetry Will transfer to ICU if not improved Full code History of Present Illness Chief Complaint: Chest pain and shortness of breath and hypotension Primary Care Provider: Ajit Moreno MD 68-year-old male with past medical history significant for dyslipidemia, prediabetes, COPD, obstructive sleep apnea on oxygen nightly, chronic heart failure with preserved ejection fraction, GERD, obesity, history of septic arthritis, chronic pain syndrome, history of PE, depression, comes because of lower chest pain and shortness of breath since yesterday evening and in the ER he was also found to have hypotension. Chest pain comes and goes in the lower p art of chest. He is also feeling short of breath. And also having abdominal discomfort. No fevers at home. Feeling dizzy. Denies headache. Vision is okay. No earache. Has runny nose and sore throat. Bowels are moving okay. Micturating okay. Patient was in the hospital first week of December 2023 with acute PE placed on Eliquis at that time also patient had 20 beats of V. tach with chest pain and found to have low magnesium. Patient followed up with cardiology on December 28, 2023 and plan for ischemic workup once recovered from PE and also discussed of increasing hydration and decreasing coffee intake as he drinks significant amount of coffee and cardiology also stopped his atorvastatin because of myalgias and elevated liver LFTs and to follow-up with repeat CMP in 2 weeks. As per he is drinking a lot of coffee. And lately he is eating very spicy food as per . Past medical history. As mentioned above Past surgical history. Colonoscopy. EGD. Reconstruction of left shoulder joint. Left thoracotomy wedge biopsy of upper lobe. Umbilical hernia repair. Right elbow surgery. Social history. . Smokes 0.5 pack a day for last 45 years. No alcohol history no drug use. Family history. Brother had leukemia. Mother had non-Hodgkin's lymphoma. Father had heart disorder. Brother had stroke. Allergies Allergy/AdvReac Type Severity Reaction Status Date / Time No Known Allergies Allergy Verified 12/08/23 15:18 Home Medications Medication Instructions Recorded Confirmed Type albuterol sulfate 90 mcg/actuation 2 puff inhalation Q4H PRN 02/04/24 02/04/24 History aerosol inhaler Shortness Of Breath Or Wheezing apixaban 5 mg tablet (Eliquis) 5 mg PO BID 02/04/24 02/04/24 History aspirin 81 mg tablet,delayed 81 mg PO DAILY 02/04/24 02/04/24 History release cyanocobalamin (vitamin B-12) 1,000 mcg PO DAILY 02/04/24 02/04/24 History 1,000 mcg tablet cyclobenzaprine 5 mg tablet 5 mg PO TID PRN muscle spasms 02/04/24 02/04/24 History escitalopram oxalate 10 mg tablet 10 mg PO DAILY 02/04/24 02/04/24 History fluticasone fur. 200 mcg-umeclid 1 inh inhalation DAILY 02/04/24 02/04/24 History 62.5 mcg-vilant 25 mcg inhalat.powder (Trelegy Ellipta) furosemide 40 mg tablet 40 mg PO DAILY 02/04/24 02/04/24 History levalbuterol HCl 1.25 mg/3 mL 1.25 mg inhalation Q4H PRN 02/04/24 02/04/24 History solution for nebulization Shortness Of Breath Or Wheezing loperamide 2 mg tablet 4 mg PO TID PRN Diarrhea 02/04/24 02/04/24 History lorazepam 0.5 mg tablet 0.5 mg PO Q6H PRN Agitation 02/04/24 02/04/24 History magnesium chloride 64 mg 64 mg PO BID 02/04/24 02/04/24 History (magnesium chloride) tablet,delayed release metoprolol tartrate 25 mg tablet 12.5 mg PO BID 02/04/24 02/04/24 History montelukast 10 mg tablet 10 mg PO DAILY 02/04/24 02/04/24 History oxycodone 5 mg tablet 5 mg PO Q6H PRN Pain 02/04/24 02/04/24 History pantoprazole 40 mg tablet,delayed 40 mg PO DAILY 02/04/24 02/04/24 History release pregabalin 100 mg capsule 100 mg PO BID 02/04/24 02/04/24 History Past Med/Surg History Problem List (Updated 02/04/24 @ 04:51 by Francy Rushing, DO) Hypotension (Acute) Acute exacerbation of chronic obstructive pulmonary disease (COPD) (Acute) SOB (shortness of breath) (Acute) Chest pain (Acute) Nonsustained ventricular tachycardia Right elbow pain Hypomagnesemia (Acute) COPD (chronic obstructive pulmonary disease) (Acute) Pulmonary embolism (Acute) Olecranon bursitis, right elbow Acute exacerbation of chronic obstructive pulmonary disease (COPD) (Acute) 10/09/23-10/11/23 admission Acute on chronic hypoxic respiratory failure (Acute) 10/09/23-10/11/23 admission COPD exacerbation Type 2 diabetes mellitus Septic arthritis of elbow, right Elevated LFTs Thrombus of aorta (Acute) Current smoker Chronic bronchitis COPD with emphysema Multiple pulmonary nodules Pulmonary nodule seen on imaging study Compression fracture of L5 vertebra Closed fracture of radial head (Acute) Closed compression fracture of lumbar vertebra (Acute) Nasal polyp Acquired deviated nasal septum (Acute) Arthritis (Acute) Cervical radiculopathy (Acute) Chronic post-thoracotomy pain (Acute) Chronic sinusitis (Acute) Hypertrophy of nasal turbinates (Acute) Obesity (Acute) Post-nasal drip Chronic - stable Tobacco abuse Viral upper respiratory illness hx HLD (hyperlipidemia) (Chronic) TAYLOR (obstructive sleep apnea) Cannot tolerate device Anxiety (Chronic) Neuropathy (Chronic) GERD (gastroesophageal reflux disease) (Chronic) Well controlled and stable Diaphragmatic hernia (Chronic) Thoracic spinal stenosis (Chronic) Hypertension (Chronic) Medical History Hyperglycemia Ha1c 6.2% 10/10/23 labs; no mention of DMII by PCP Cigarette smoker Obesity 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 Saw vascular: started on [id number] and Eliquis. Eliquis was then D/C by pulmonary 04/2023. Pt had normal f/u chest CTA 06/20/23 Irregular cardiac rhythm pt noted to have 25beats of Nonsustained VTach vs PAT day of discharge (08/09/23) [facility]; pt denied sx; started on metoprolol and ordered Zio monitor and Cardio referral Peripheral vascular disease Chronic diastolic heart failure PCP monitoring; ECHO 10/03/23 with nl EF and Gr I DD. 'no changes to medications needed at this time. Continue lasix daily' per PCP Chronic back pain "hx broken back"no back surgery Arthritis GERD (gastroesophageal reflux disease) Hx pulmonary embolism 2017 developed after a bad fall (was on coumadin for 1 year) Cardiac murmur no significant valve disease per 10/03/23 ECHO Hypertension Hyperlipidemia Chronic obstructive pulmonary disease 'group D' per pulm. Pt admitted [facility] for COPD exacerbation 10/08-10/11/23; admitted [facility] for COPD exacerbation (also had COVID at the time): 09/22- 09/25/23; admitted for COPD exacerbation 05/17-05/21/23 Asthma required rescue inhaler "just the other day" Chronic respiratory failure On oxygen at night in the past - but no longer needs per patient . Per 10/18/23 PCP note, 'pt stable from a respiratory standpoint' Hx of migraines Sleep apnea 2L O2 HS (no other device) History of COVID-19 Admitted [facility] 09/22-09/25/23 COVID+ and COPD exacerbation; pt states no longer having COVID sx Pneumothorax Hx- complication from pain injection- resolved Histoplasmosis 2003- treated Surgical History H/O hernia repair History of esophagogastroduodenoscopy (EGD) Hx of colonoscopy History of open reduction and internal fixation (ORIF) procedure right shoulder History of total replacement of left shoulder joint History of sinus surgery History of placement of chest tube History of hand surgery right/left Left femoral shaft fracture Dutch placed>hardware intact H/O total hip arthroplasty left H/O elbow surgery R radial head ORIF prior to 2009; R elbow I&D 08/05/23: GA: MAC#4, ETT#7.5HiLo, Gr View 1 H/O exploratory thoracotomy "Left thoracotomy wedge biopsy of left upper lobe with excision of lesion or nodule & frozen section 2002" [facility] supraumbilical hernia repair open no mesh 02/17/01 Family History Father Heart disease Hypertension Brother Heart disease Cancer Hypertension Stroke Mother Cancer Other Leukemia No family history of adverse response to anesthesia No family history of bleeding disorder Non-Hodgkin lymphoma Denies family history of Hearing loss Asthma Social History Smoking Status: Current every day smoker Tobacco Type: Cigarettes Age Started Using Tobacco: 11; packs per day: 1; Cigarettes Per Day: 10 cig daily>advised; Second Hand Exposure: No; Do You Dip or Chew Tobacco: No; Hx Alcohol Use: No Hx Substance Use: No Preferred Language: Stateless Communication Ability: Effective Clerk Television Production Required: No Beliefs That Will Affect Care: None marital status: Current Living Situation: Spouse current occupational status: unemployed Feels Safe at Home: Yes Assistive Devices: Oxygen - at Night Review of Systems Review of Systems: All systems reviewed & are unremarkable except as noted in HPI & below Physical Exam Physical Exam: General- Not in acute distress Head- atraumatic Eyes- PERRL. ENT- oropharynx clear Neck- supple, no JVD Lungs- clear to auscultation b/l wheezing heard, no cackles Heart- regular rate and rhythm; no murmur, no gallop. Abdomen- normal bowel sounds, soft, mild diffuse discomfort, no distension Extremities- no pretibial edema, no erythema seen Neuro- alert, oriented PERRL, no facial palsy; no dysarthria; moves extremities Results & Data Results & Data Vital Signs (Past 12 Hours) Vital Signs Temp Pulse Resp BP Pulse Ox O2 Del Method O2 Flow Rate 02/04/24 08:08 93 H 02/04/24 07:15 36.9 C 02/04/24 07:00 94 H 22 88/44 L 93 Nasal Cannula 3 02/04/24 06:58 90/46 L 02/04/24 06:55 87/45 L 02/04/24 06:45 80/47 L 02/04/24 06:38 101 H 26 H 87/45 L 92 Nasal Cannula 3 02/04/24 06:15 105 H 20 89/54 L 93 Nasal Cannula 3 02/04/24 05:57 100 H 26 H 95/57 L 93 Nasal Cannula 3 02/04/24 05:45 103 H 31 H 95/57 L 94 Nasal Cannula 3 02/04/24 05:39 103 H 26 H 103/58 L 95 Nasal Cannula 3 02/04/24 05:18 103 H 26 H 115/59 L 98 Nasal Cannula 3 02/04/24 04:45 106 H 26 H 97/54 L 98 Nasal Cannula 3 02/04/24 04:45 102 H 28 H 97/54 L 95 Nasal Cannula 3 02/04/24 04:30 98 H 94/56 L 93 Nasal Cannula 3 02/04/24 04:20 103 H 24 96/59 L 93 Nasal Cannula 3 02/04/24 04:01 100 H 02/04/24 04:00 103 H 24 98/64 L 96 Nasal Cannula 2 02/04/24 03:45 112 H 22 91/60 L 97 Nasal Cannula 2 02/04/24 03:31 100 H 28 H 90/52 L 95 Nasal Cannula 2 02/04/24 03:16 95 H 20 90/49 L 94 Nebulizer 8 02/04/24 03:00 93 02/04/24 02:30 96 H 24 65/41 L 95 02/04/24 02:00 93 H 29 H 112/57 L 100 02/04/24 01:45 89 21 101/61 99 02/04/24 01:30 88 20 91/76 L 96 Nasal Cannula 2 02/04/24 00:45 94 H 22 95/51 L 94 Nasal Cannula 2 02/04/24 00:39 100 H 22 81/55 L 96 Nasal Cannula 2 02/04/24 00:34 65/52 L 02/04/24 00:33 99 H 19 73/52 L 95 Nebulizer 9 02/04/24 00:00 113 H 23 90/60 L 02/04/24 00:00 118 H 02/03/24 23:59 37.8 C H 113 H 22 90/67 L 94 Nasal Cannula 2 Diagnostic Findings Laboratory Results WBC 11.01 K/ul (4.8-10.8) H 02/04/24 00:01 RBC 4.68 M/uL (4.70-6.10) L 02/04/24 00:01 Hgb 14.3 g/dl (14.0-18.0) 02/04/24 00:01 Hct 41.4 % (42.0-52.0) L 02/04/24 00:01 MCV 88.5 fL (80.0-100.0) 02/04/24 00:01 MCH 30.6 pg (25.0-34.0) 02/04/24 00:01 MCHC 34.5 g/dL (32.0-36.0) 02/04/24 00:01 RDW Std Deviation 50.2 fL (36.4-46.3) H 02/04/24 00:01 RDW Coeff of Jaz 15.7 % (11.5-14.5) H 02/04/24 00:01 Plt Count 315 K/uL (130-400) 02/04/24 00:01 MPV 10.8 fL (9.4-12.4) 02/04/24 00:01 Immature Gran % (Auto) 0.7 % 02/04/24 00:01 Neut % (Auto) 83.9 % 02/04/24 00:01 Lymph % (Auto) 5.0 % 02/04/24 00:01 Edmonson % (Auto) 9.4 % 02/04/24 00:01 Eos % (Auto) 0.7 % 02/04/24 00:01 Baso % (Auto) 0.3 % 02/04/24 00:01 Neut # (Auto) 9.23 K/uL (1.40-6.50) H 02/04/24 00:01 Lymph # (Auto) 0.55 K/uL (1.20-3.40) L 02/04/24 00:01 Edmonson # (Auto) 1.04 K/uL (0.11-0.59) H 02/04/24 00:01 Eos # (Auto) 0.08 K/uL (0.00-0.50) 02/04/24 00:01 Baso # (Auto) 0.03 K/uL (0.00-0.20) 02/04/24 00:01 Immature Gran # (Auto) 0.08 K/uL (0.01-0.20) 02/04/24 00:01 PT 10.5 Seconds (9.0-12.0) 02/04/24 00:01 INR 1.0 (0.9-1.1) 02/04/24 00:01 VBG pH 7.49 (7.36-7.41) H 02/04/24 00:01 VBG pCO2 40 mmHg (38-50) 02/04/24 00:01 VBG pO2 35 mmHg 02/04/24 00:01 VBG HCO3 31 mmol/L 02/04/24 00:01 VBG O2 Saturation < 60.0 % 02/04/24 00:01 VBG Base Excess 6.6 mEq/L 02/04/24 00:01 Sodium 135 mmol/L (136-145) L 02/04/24 00:01 Potassium 4.5 mmol/L (3.5-5.1) 02/04/24 00:01 Chloride 100 mmol/L (98-107) 02/04/24 00:01 Carbon Dioxide 28 mmol/L (21-32) 02/04/24 00:01 Anion Gap 7 (3-11) 02/04/24 00:01 BUN 19 mg/dl (6-23) 02/04/24 00:01 Creatinine 1.01 mg/dl (0.6-1.4) 02/04/24 00:01 Est Cr Clr Drug Dosing 73.7 ml/min 02/04/24 00:01 eGFR 80.01 02/04/24 00:01 BUN/Creatinine Ratio 18.8 (10-20) 02/04/24 00:01 Glucose 111 mg/dl (70-99(Fasting)) H 02/04/24 00:01 Lactate 1.7 mmol/L (0.4-2.0) 02/04/24 03:22 Calcium 9.4 mg/dl (8.6-10.3) 02/04/24 00:01 Magnesium 1.4 mg/dl (1.7-2.4) L 02/04/24 00:01 Total Bilirubin 0.4 mg/dl (0.2-1.0) 02/04/24 00:01 AST 46 U/L (13-39) H 02/04/24 00:01 ALT 72 U/L (7-52) H 02/04/24 00:01 Alkaline Phosphatase 99 U/L (34-104) 02/04/24 00:01 Troponin I High Sens 12.8 pg/ml (0-20) 02/04/24 00:01 Total Protein 6.9 gm/dl (6.0-8.3) 02/04/24 00:01 Albumin 3.7 gm/dl (3.4-5.0) 02/04/24 00:01 Globulin 3.2 gm/dl (2.5-4.0) 02/04/24 00:01 Albumin/Globulin Ratio 1.2 (0.9-2) 02/04/24 00:01 Lipase 18 U/L (11-82) 02/04/24 00:01 Procalcitonin 0.10 ng/ml (0-0.5) 02/04/24 00:01 TSH 2.228 uIu/ml (0.300-4.500) 02/04/24 00:01 Random Cortisol 16.99 mcg/dl 02/04/24 00:01 Adenovirus (PCR) Not Detected (NotDetected) 02/04/24 00:01 B. pertussis DNA (PCR) Not Detected (NotDetected) 02/04/24 00:01 B.parapertussis DNA PCR Not Detected (NotDetected) 02/04/24 00:01 C. pneumoniae DNA (PCR) Not Detected (NotDetected) 02/04/24 00:01 Coronavirus OC43 (PCR) Not Detected (NotDetected) 02/04/24 00:01 Coronavirus HKU1 (PCR) Not Detected (NotDetected) 02/04/24 00:01 Coronavirus 229E (PCR) Not Detected (NotDetected) 02/04/24 00:01 SARS-CoV-2 (PCR) Not Detected (NotDetected) 02/04/24 00:01 Coronavirus NL63 (PCR) Not Detected (NotDetected) 02/04/24 00:01 Human Metapneumovir PCR Not Detected (NotDetected) 02/04/24 00:01 Influenza Type A (PCR) Not Detected (NotDetected) 02/04/24 00:01 Influenza Type B (PCR) Not Detected (NotDetected) 02/04/24 00:01 M. pneumoniae (PCR) Not Detected (NotDetected) 02/04/24 00:01 Parainfluenza 1 (PCR) Not Detected (NotDetected) 02/04/24 00:01 Parainfluenza 2 (PCR) Not Detected (NotDetected) 02/04/24 00:01 Parainfluenza 3 (PCR) Not Detected (NotDetected) 02/04/24 00:01 Parainfluenza 4 (PCR) Not Detected (NotDetected) 02/04/24 00:01 RSV (PCR) Not Detected (NotDetected) 02/04/24 00:01 Entero/Rhino (PCR) Not Detected (NotDetected) 02/04/24 00:01 Impressions Chest X-Ray 02/03/24 23:57 EXAM: XR chest 1V portable CLINICAL HISTORY: CHEST PAIN, SOB KFK TECHNIQUE: Radiograph of chest was acquired. COMPARISON: None. FINDINGS: Left total shoulder arthroplasty implant in situ. Fibrotic changes are noted in the left lower lung zone. The remaining lungs are clear and well-expanded with no pulmonary infiltrate or pleural effusion. The cardiomediastinal silhouette is within normal limits. No acute osseous abnormality. IMPRESSION: 1. Left total shoulder arthroplasty in situ. 2. Left lower lung zone fibrotic changes. 3. No acute abnormality. Electronically signed by Jean Claude Jiang 02-04-2024 01:28 AM Chest CTA 02/04/24 02:08 EXAM: CT angio chest PE protocol CLINICAL HISTORY: substernal chest apin starting on the left and going across the diaphragm that began at 1730. Pt reports cough, chills, and feeling unwell for the past week. Pt recently completed antibiotics and predinsone but does not feel it helped. Pt does take blood thinner 2x daily. He weres 2L O2 at night. 88 ml opti 320 PW/GS TECHNIQUE: Contiguous axial images were obtained from the neck base through the upper abdomen following intravenous administration of contrast material. If IV contrast material had not been administered, the likelihood of detecting abnormalities relevant to the patient's condition would have been substantially decreased. In addition, sagittal and coronal reconstructions were performed. CT scan was performed according to ALARA (as low as reasonable achievable). COMPARISON: None. FINDINGS: The lungs show few fibrotic bands in bilateral lower lobes and lingula. Mild centrilobular and paraseptal emphysema is noted in bilateral upper lobes. No focal areas of consolidation. No pulmonary nodules are seen. The central airways are patent. There are no pleural effusions. No pneumothorax is seen. No axillary, hilar, or mediastinal adenopathy is identified. The visualized thyroid is unremarkable. The heart, aorta, and pulmonary arteries are of normal size and configuration. No pericardial effusion is identified. Imaged portions of the upper abdomen are unremarkable. Degenerative changes are noted in the visualized spine. IMPRESSION: 1. No obvious pulmonary embolism. 2. Mild centrilobular and paraseptal emphysema in bilateral upper lobes. 3. Fibrotic bands in bilateral lower lobes and lingula. Electronically signed by Jean Claude Jiang 02-04-2024 04:30 AM ECG Additional Comments: ECG. Sinus tachycardia rate of 114. No acute ST changes seen. QTc 432. Code Status & VTE Plan VTE Prophylaxis Plan VTE Prophylaxis will be ordered: Yes
[2024-02-04] MEDS: DOXYCYCLINE HYCLATE 100 MG in DEXTROSE 5% MINI-B 100 ML IV SCH (09:00)
[2024-02-04] MEDS ORDERED: ALBUT/IPRATROP 3MG/0.5MG NEB 3 ML VIAL NEB PRN (09:08)
[2024-02-04] MEDS ORDERED: POLYETHYLENE (MIRALAX) 17 GM PACK PO PRN (09:08)
[2024-02-04] MEDS ORDERED: NON-FORMULARY MEDICATION (Fluticasone-Umeclidin-Vilanter [Trelegy Ellipta] 200-62.5-25 mcg INH SCH (09:08)
[2024-02-04 09:20] LABS: Appearance Urine Clear (Clear); Bilirubin Urine Negative (Negative); Blood Urine Negative (Negative); Color Urine Yellow; Glucose Urine UA Negative (Negative); Ketones Urine Negative (Negative); Leukocyte Esterase Urine Negative (Negative); Nitrite Urine Negative (Negative); Protein Urine Negative (Negative); Specific Gravity Urine 1.033 (1.000-1.030); Urobilinogen Urine Negative (Negative)
[2024-02-04] MEDS ORDERED: ALBUTEROL HFA 8 GM INHALER INH PRN (09:24)
[2024-02-04] MEDS: APIXABAN 5 MG TABLET PO SCH (10:20)
[2024-02-04] MEDS: CYANOCOBALAMIN (B-12) 500 MCG TABLET PO SCH (10:26)
[2024-02-04] MEDS: MONTELUKAST SODIUM 10 MG TABLET PO SCH (10:26)
[2024-02-04] MEDS: PANTOprazole 40 MG TAB PO SCH (10:26)
[2024-02-04] MEDS: ESCITALOPRAM OXALATE 10 MG TAB PO SCH (10:26)
[2024-02-04] MEDS: MAGNESIUM CHLORIDE W/CALCIUM 64MG DELAYED REL TAB PO SCH (10:26)
[2024-02-04] MEDS: ASPIRIN 81 MG ECTAB PO SCH (10:26)
--- NOTE | 2024-02-04 10:29 | Electrocardiogram Report ---
Test Reason : Blood Pressure : */* mmHG Vent. Rate : 114 BPM Atrial Rate : 114 BPM P-R Int : 150 ms QRS Dur : 76 ms QT Int : 314 ms P-R-T Axes : 56 57 42 degrees QTcB Int : 432 ms Sinus tachycardia RSR' or QR pattern in V1 suggests right ventricular conduction delay Otherwise normal ECG When compared with ECG of 12-Dec-2023 12:05, Vent. rate has increased by 53 bpm Confirmed by Margaret Sevilla (Alicia) on 02/04/2024 10:28:53 AM Referred By: REFERRED SELF Confirmed By: Margaret Sevilla
[2024-02-04] MEDS: ALBUT/IPRATROP 3MG/0.5MG NEB 3 ML VIAL NEB SCH (10:30)
[2024-02-04 10:33] LABS: Albumin Level 3.2 gm/dl (3.4-5.0); Bilirubin Direct 0.1 mg/dl (0-0.2); Bilirubin,Total 0.4 mg/dl (0.2-1.0); Total Protein 5.9 gm/dl (6.0-8.3)
[2024-02-04 10:38] LABS: Troponin I High Sensitivity 31.6 pg/ml (0-20)
[2024-02-04] MEDS: PREGABALIN 100 MG CAP PO SCH (11:24)
[2024-02-04] MEDS: FLUTICASONE FUROATE 200MCG 14 PUFFS/INHALER INH SCH (11:25)
[2024-02-04] MEDS: UMECLIDINIUM/VILANTEROL 62.5/25MCG 7 PUFFS/INHALER INH SCH (11:25)
--- NOTE | 2024-02-04 12:01 | Cardiology Consultation ---
Date of Consultation February 04, 2024 Assessment & Plan (1) Hypotension: (2) Acute exacerbation of chronic obstructive pulmonary disease (COPD): (3) SOB (shortness of breath): (4) Hypomagnesemia: Plan Patient admitted with SOB secondary to COPD exacerbation and hypotension likely in setting of poor PO intake of fluids. BP improved with IV fluids. Hold Furosemide. Metoprolol held on admission. BP improving. Resume metoprolol tartrate 12.5 mg BID likely later or in AM Repeat echo is unremarkable. Stable LVEF. Continue Eliquis for history of PE. Supplement magnesium. Recheck later today History of non sustained VT, noted during last admission when diagnosed with PE. Resume metoprolol and replace mag No arrhythmias on monitor. No further cardiac testing warranted at this time. Case discussed with Dr. Paul I spent a total of 45 minutes on the date of service in preparation, delivery, and documentation of the care provided to this patient, excluding any time spent in the performance of separately billed services. Katrin Casey PA-C Department of Cardiology, [facility] This chart was completed in part utilizing Speech Voice Recognition Software. Grammatical errors, random word insertions, pronoun errors, and incomplete sentences are an occasional consequence of this system due to software limitations, ambient noise, and hardware issues. Any formal questions or concerns about the content, text, or information contained within the body of this dictation should be directly addressed to the provider for clarification. Supervising Physician Co-Signing Physician Notes I have reviewed the advanced practitioner's documentation on the date of service referenced in note, and I agree with, and take responsibility for the plan of care. I spent a total of [20] minutes coordinating, documenting, and providing care for this patient excluding time spent in the performance of separately billed services or time spent by another provider. History of Present Illness Reason for Consultation: Hypotension; Chest pain Requesting Physician: Adam Hospitalist Attending Physician: Dr. Paul History of Present Illness Patient came to [place] ER with complaints of weakness, SOB, dizziness over the last several days. Upon arrival, patient found to be significantly hypotensive. Treated with IV fluids and 1 dose IV hydrocortisone. Antihypertensive therapy held. Creatinine normal. Magnesium low and supplemented. BP improving since admission. EKG demonstrated sinus tachycardia, likely in setting of volume depletion. Initial troponin at 12, repeat at 31.6. SOB/wheeze noted on admission, consistent with COPD exacerbation. started on antibiotics, steroids, nebs Recently admitted at [facility] 12/07-12/13/23 with acute RLL PE. During hospitalization developed sudden onset chest pain after 22 beat run of NSVT. Found to have low magnesium. Cardiology consulted, normal echo, chest CT negative for aortic dissection. Patient had no recurrent chest pain at outpatient cardio follow up. Was taking meds as prescribed. BP controlled. Atorvastatin held due to elevated LFT's and myalgias. At time of consult, patient resting in bed. Ongoing wheeze and SOB noted. No chest pain. No dizziness. BP improved. No orthopnea, PND or edema. Past Medical History: 1. HFpEF 2. NSVT 3. HTN 4. HLD 5. Hx PE 2016, 12/2023 6. Descending aortic thrombus 02/2023 7. COPD/emphysema 8. TAYLOR 9. GERD Allergies Allergy/AdvReac Type Severity Reaction Status Date / Time No Known Allergies Allergy Verified 12/08/23 15:18 Home Medications Medication Instructions Recorded Confirmed Type albuterol sulfate 90 mcg/actuation 2 puff inhalation Q4H PRN 02/04/24 02/04/24 History aerosol inhaler Shortness Of Breath Or Wheezing apixaban 5 mg tablet (Eliquis) 5 mg PO BID 02/04/24 02/04/24 History aspirin 81 mg tablet,delayed 81 mg PO DAILY 02/04/24 02/04/24 History release cyanocobalamin (vitamin B-12) 1,000 mcg PO DAILY 02/04/24 02/04/24 History 1,000 mcg tablet cyclobenzaprine 5 mg tablet 5 mg PO TID PRN muscle spasms 02/04/24 02/04/24 History escitalopram oxalate 10 mg tablet 10 mg PO DAILY 02/04/24 02/04/24 History fluticasone fur. 200 mcg-umeclid 1 inh inhalation DAILY 02/04/24 02/04/24 History 62.5 mcg-vilant 25 mcg inhalat.powder (Trelegy Ellipta) furosemide 40 mg tablet 40 mg PO DAILY 02/04/24 02/04/24 History levalbuterol HCl 1.25 mg/3 mL 1.25 mg inhalation Q4H PRN 02/04/24 02/04/24 History solution for nebulization Shortness Of Breath Or Wheezing loperamide 2 mg tablet 4 mg PO TID PRN Diarrhea 02/04/24 02/04/24 History lorazepam 0.5 mg tablet 0.5 mg PO Q6H PRN Agitation 02/04/24 02/04/24 History magnesium chloride 64 mg 64 mg PO BID 02/04/24 02/04/24 History (magnesium chloride) tablet,delayed release metoprolol tartrate 25 mg tablet 12.5 mg PO BID 02/04/24 02/04/24 History montelukast 10 mg tablet 10 mg PO DAILY 02/04/24 02/04/24 History oxycodone 5 mg tablet 5 mg PO Q6H PRN Pain 02/04/24 02/04/24 History pantoprazole 40 mg tablet,delayed 40 mg PO DAILY 02/04/24 02/04/24 History release pregabalin 100 mg capsule 100 mg PO BID 02/04/24 02/04/24 History Patient History Medical History Hyperglycemia Ha1c 6.2% 10/10/23 labs; no mention of DMII by PCP Cigarette smoker Obesity 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 Saw vascular: started on [id number] and Eliquis. Eliquis was then D/C by pulmonary 04/2023. Pt had normal f/u chest CTA 06/20/23 Irregular cardiac rhythm pt noted to have 25beats of Nonsustained VTach vs PAT day of discharge (08/09/23) [facility]; pt denied sx; started on metoprolol and ordered Zio monitor and Cardio referral Peripheral vascular disease Chronic diastolic heart failure PCP monitoring; ECHO 10/03/23 with nl EF and Gr I DD. 'no changes to medications needed at this time. Continue lasix daily' per PCP Chronic back pain "hx broken back"no back surgery Arthritis GERD (gastroesophageal reflux disease) Hx pulmonary embolism 2016 developed after a bad fall (was on coumadin for 1 year) Cardiac murmur no significant valve disease per 10/03/23 ECHO Hypertension Hyperlipidemia Chronic obstructive pulmonary disease 'group D' per pulm. Pt admitted [facility] for COPD exacerbation 10/08-10/11/23; admitted [facility] for COPD exacerbation (also had COVID at the time): 09/22- 09/25/23; admitted for COPD exacerbation 05/17-05/21/23 Asthma required rescue inhaler "just the other day" Chronic respiratory failure On oxygen at night in the past - but no longer needs per patient . Per 10/18/23 PCP note, 'pt stable from a respiratory standpoint' Hx of migraines Sleep apnea 2L O2 HS (no other device) History of COVID-19 Admitted [facility] 09/22-09/25/23 COVID+ and COPD exacerbation; pt states no longer having COVID sx Pneumothorax Hx- complication from pain injection- resolved Histoplasmosis 2002- treated Surgical History H/O hernia repair History of esophagogastroduodenoscopy (EGD) Hx of colonoscopy History of open reduction and internal fixation (ORIF) procedure right shoulder History of total replacement of left shoulder joint History of sinus surgery History of placement of chest tube History of hand surgery right/left Left femoral shaft fracture Dutch placed>hardware intact H/O total hip arthroplasty left H/O elbow surgery R radial head ORIF prior to 2009; R elbow I&D 08/05/23: GA: MAC#4, ETT#7.5HiLo , Gr View 1 H/O exploratory thoracotomy "Left thoracotomy wedge biopsy of left upper lobe with excision of lesion or nodule & frozen section 2002" H/O hernia repair [facility] incarcerated supraumbilical hernia repair open no mesh 02/17/01 Family History Father Heart disease Hypertension Brother Heart disease Cancer Hypertension Stroke Mother Cancer Other Leukemia No family history of adverse response to anesthesia No family history of bleeding disorder Non-Hodgkin lymphoma Denies family history of Hearing loss Asthma Social History Smoking Status: Current every day smoker Tobacco Type: Cigarettes Age Started Using Tobacco: 11; packs per day: 1; Cigarettes Per Day: 10 cig daily>advised; Second Hand Exposure: No; Do You Dip or Chew Tobacco: No; Hx Alcohol Use: No Hx Substance Use: No Preferred Language: Bolivian Communication Ability: Effective Director Agricultural Services Required: No Beliefs That Will Affect Care: None marital status: Current Living Situation: Spouse current occupational status: unemployed Other Information That Helps Us Care for You: No Feels Safe at Home: Yes Safety Concerns: Feels Safe At This Time Assistive Devices: None Review of Systems Review of Systems: All systems reviewed & are unremarkable except as noted in HPI & below Physical Exam Constitutional: WD/WN, vitals as above well developed; no acute distress Neck: trachea midline, no thyromegaly Respiratory: + labored breathing (Mild conversational dyspnea) and + tachypneic; no respiratory distress Auscultation: + diminished lung sounds and + wheezes Cardiovascular: Rate/Rhythm: regular rate and regular rhythm Heart Sounds: normal S1 and normal S2; no murmur Vessels: no JVD Extremities: no edema Gastrointestinal (Abdomen): normal bowel sounds, soft, nontender, no hep atosplenomegaly Neurologic: PERRL, EOMI, accommodation nl, no face palsy, no dysarthria Results & Data Vital Signs (Past 12 Hours) Vital Signs Temp Pulse Pulse Resp BP Pulse Ox Pulse Ox 02/04/24 11:49 82 16 104/58 L 93 02/04/24 11:23 82 22 100/60 93 02/04/24 10:32 82 94 02/04/24 10:18 81 23 105/60 93 02/04/24 10:00 78 21 102/57 L 90 02/04/24 09:48 83 25 H 92/71 L 93 02/04/24 09:33 84 24 99/41 L 93 02/04/24 09:23 02/04/24 09:15 88 24 113/58 L 93 02/04/24 09:08 94 02/04/24 09:00 89 25 H 97/51 L 94 02/04/24 08:51 87 23 107/52 L 94 02/04/24 08:39 90 24 93/51 L 94 02/04/24 08:30 89 29 H 93/51 L 93 02/04/24 08:27 88 25 H 88/48 L 94 02/04/24 08:09 92 H 27 H 92/63 L 93 02/04/24 08:08 93 H 02/04/24 07:45 92 H 26 H 96/48 L 92 02/04/24 07:15 36.9 C 02/04/24 07:00 94 H 22 88/44 L 93 02/04/24 06:58 90/46 L 02/04/24 06:55 87/45 L 02/04/24 06:45 80/47 L 02/04/24 06:38 101 H 26 H 87/45 L 92 02/04/24 06:15 105 H 20 89/54 L 93 02/04/24 05:57 100 H 26 H 95/57 L 93 02/04/24 05:45 103 H 31 H 95/57 L 94 02/04/24 05:39 103 H 26 H 103/58 L 95 02/04/24 05:18 103 H 26 H 115/59 L 98 02/04/24 04:45 106 H 26 H 97/54 L 98 02/04/24 04:45 102 H 28 H 97/54 L 95 02/04/24 04:30 98 H 94/56 L 93 02/04/24 04:20 103 H 24 96/59 L 93 02/04/24 04:01 100 H 02/04/24 04:00 103 H 24 98/64 L 96 02/04/24 03:45 112 H 22 91/60 L 97 02/04/24 03:31 100 H 28 H 90/52 L 95 02/04/24 03:16 95 H 20 90/49 L 94 02/04/24 03:00 93 02/04/24 02:30 96 H 24 65/41 L 95 02/04/24 02:00 93 H 29 H 112/57 L 100 02/04/24 01:45 89 21 101/61 99 02/04/24 01:30 88 20 91/76 L 96 02/04/24 00:45 94 H 22 95/51 L 94 02/04/24 00:39 100 H 22 81/55 L 96 02/04/24 00:34 65/52 L 02/04/24 00:33 99 H 19 73/52 L 95 O2 Del Method O2 Del Method O2 Flow Rate O2 Flow Rate 02/04/24 11:49 Nasal Cannula 3 02/04/24 11:23 Nasal Cannula 3 02/04/24 10:32 Nasal Cannula 3 02/04/24 10:18 Nasal Cannula 3 02/04/24 10:00 02/04/24 09:48 02/04/24 09:33 02/04/24 09:23 Nasal Cannula 3 02/04/24 09:15 Nasal Cannula 3 02/04/24 09:08 Nasal Cannula 3 02/04/24 09:00 Nasal Cannula 3 02/04/24 08:51 Nasal Cannula 3 02/04/24 08:39 02/04/24 08:30 02/04/24 08:27 02/04/24 08:09 02/04/24 08:08 02/04/24 07:45 Nasal Cannula 3 02/04/24 07:15 02/04/24 07:00 Nasal Cannula 3 02/04/24 06:58 02/04/24 06:55 02/04/24 06:45 02/04/24 06:38 Nasal Cannula 3 02/04/24 06:15 Nasal Cannula 3 02/04/24 05:57 Nasal Cannula 3 02/04/24 05:45 Nasal Cannula 3 02/04/24 05:39 Nasal Cannula 3 02/04/24 05:18 Nasal Cannula 3 02/04/24 04:45 Nasal Cannula 3 02/04/24 04:45 Nasal Cannula 3 02/04/24 04:30 Nasal Cannula 3 02/04/24 04:20 Nasal Cannula 3 02/04/24 04:01 02/04/24 04:00 Nasal Cannula 2 02/04/24 03:45 Nasal Cannula 2 02/04/24 03:31 Nasal Cannula 2 02/04/24 03:16 Nebulizer 8 02/04/24 03:00 02/04/24 02:30 02/04/24 02:00 02/04/24 01:45 02/04/24 01:30 Nasal Cannula 2 02/04/24 00:45 Nasal Cannula 2 02/04/24 00:39 Nasal Cannula 2 02/04/24 00:34 02/04/24 00:33 Nebulizer 9 Laboratory Results Cardiac Enzymes 02/04/24 02/04/24 Range/Units 00:01 09:45 AST 46 H 41 H (13-39) U/L Troponin I High Sens 12.8 31.6 H D (0-20) pg/ml Coagulation 02/04/24 Range/Units 00:01 PT 10.5 (9.0-12.0) Seconds CBC 02/04/24 Range/Units 00:01 WBC 11.01 H (4.8-10.8) K/ul RBC 4.68 L (4.70-6.10) M/uL Hgb 14.3 (14.0-18.0) g/dl Hct 41.4 L (42.0-52.0) % Plt Count 315 (130-400) K/uL Neut # (Auto) 9.23 H (1.40-6.50) K/uL Lymph # (Auto) 0.55 L (1.20-3.40) K/uL [place] # (Auto) 1.04 H (0.11-0.59) K/uL Eos # (Auto) 0.08 (0.00-0.50) K/uL Baso # (Auto) 0.03 (0.00-0.20) K/uL Comprehensive Metabolic Panel 02/04/24 02/04/24 Range/Units 00:01 09:45 Sodium 135 L (136-145) mmol/L Potassium 4.5 (3.5-5.1) mmol/L Chloride 100 (98-107) mmol/L Carbon Dioxide 28 (21-32) mmol/L BUN 19 (6-23) mg/dl Creatinine 1.01 (0.6-1.4) mg/dl Glucose 111 H (70-99(Fasting)) mg/dl Calcium 9.4 (8.6-10.3) mg/dl Direct Bilirubin 0.1 (0-0.2) mg/dl AST 46 H 41 H (13-39) U/L ALT 72 H 62 H (7-52) U/L Alkaline Phosphatase 99 78 (34-104) U/L Total Protein 6.9 5.9 L (6.0-8.3) gm/dl Albumin 3.7 3.2 L (3.4-5.0) gm/dl Intake and Output 02/03/24 02/04/24 02/04/24 22:59 06:59 14:59 Intake Total 3200 / 3200 1391.667 / 1391.667 Output Total 450 / 450 Balance 3200 / 3200 941.667 / 941.667 Intake: IV 3200 / 3200 1391.667 / 1391.667 Doxycycline Hyclate 100 mg In 100 / 100 Dextrose 5% Mini-B 100 ml @ 50 mls/hr IV Q12H [facility] Rx#:[id number] Magnesium Sulfate / D5w 1 gm In 200 / 200 191.667 / 191.667 100 ml @ 50 mls/hr IV Q2H [facility] Rx#:[id number] Piperacillin/Tazobactam 4.5 gm 100 / 100 In 100 ml @ 200 mls/hr IV NOW ST[facility] Rx#:[id number] Sodium Chloride 0.9% 1,000 ml @ 3000 / 3000 1000 / 1000 125 mls/hr IV .Q8H [facility] Rx#: [id number] Output: Urine 450 / 450 Other: Weight 95.7 kg Weight Measurement Method Built in [facility] Diagnostic Findings Telemetry reviewed: NSR. No arrhythmias EKG reviewed from 02/03/24: Sinus tachycardia at 114 bmp RSR pattern HR increased compared with prior EKG, otherwise no acute ischemic changes Echocardiogram pending at time of evaluation Chest X-Ray 02/03/24 23:57 IMPRESSION: 1. Left total shoulder arthroplasty in situ. 2. Left lower lung zone fibrotic changes. 3. No acute abnormality. Electronically signed by Jean Claude Jiang 02-04-2024 01:28 AM Chest CTA 02/04/24 02:08 IMPRESSION: 1. No obvious pulmonary embolism. 2. Mild centrilobular and paraseptal emphysema in bilateral upper lobes. 3. Fibrotic bands in bilateral lower lobes and lingula. Abdomen/Pelvis CT 02/04/24 07:16 IMPRESSION: No acute abnormality to explain abdominal pain and hypotension. ACT 112: Negative or not required by law. Electronically signed by: Florin Soto M.D. 02/04/2024 8:21 AM Prior echo reviewed from Dec 2023: LVEF 55-60% Mild concentric LVH Aortic valve is trileaflet Normal RV function and size Aortic valve sclerosis mild without stenosis aortic root and ascending aorta are normal sized Medications Administered Current Inpatient Medications Acetaminophen (Acetaminophen 325 Mg Tab) 650 mg PO Q4H PRN PRN Reason: Pain or Fever Stop: 03/05/24 09:07 Albuterol (Albut/Ipratrop 3mg/0.5mg Neb 3 Ml Vial) 3 ml NEB Q4H PRN; Protocol PRN Reason: Shortness Of Breath Or Wheezing Stop: 03/05/24 09:07 Albuterol (Albut/Ipratrop 3mg/0.5mg Neb 3 Ml Vial) 3 ml NEB QIDR [facility]; Protocol Stop: 03/05/24 10:59 Last Admin: 02/04/24 10:30 Dose: 3 ml Albuterol (Albuterol Hfa 8 Gm Inhaler) 2 puffs INH Q4H PRN PRN Reason: Shortness Of Breath Or Wheezing Stop: 03/05/24 09:23 Apixaban (Apixaban 5 Mg Tablet) 5 mg PO BID [facility] Stop: 03/05/24 09:29 Last Admin: 02/04/24 10:20 Dose: 5 mg Aspirin (Aspirin 81 Mg Ectab) 81 mg PO DAILY [facility] Stop: 03/05/24 09:29 Last Admin: 02/04/24 10:26 Dose: 81 mg Cyanocobalamin (Cyanocobalamin (B-12) 500 Mcg Tablet) 1,000 mcg PO DAILY [facility] Stop: 03/05/24 09:29 Last Admin: 02/04/24 10:26 Dose: 1,000 mcg Escitalopram Oxalate (Escitalopram Oxalate 10 Mg Tab) 10 mg PO DAILY [facility] Stop: 03/05/24 09:07 Last Admin: 02/04/24 10:26 Dose: 10 mg Fluticasone Furoate (Fluticasone Furoate 200mcg 14 Puffs/Inhaler) 1 puffs INH DAILY [facility] Stop: 03/05/24 09:29 Last Admin: 02/04/24 11:25 Dose: 1 puffs Sodium Chloride (Nss) 1,000 mls @ 125 mls/hr IV .Q8H [facility] Stop: 02/05/24 02:44 Last Admin: 02/04/24 11:36 Dose: Not Given Piperacillin Sod/Tazobactam Sod (Zosyn) 4.5 gm in 100 mls @ 25 mls/hr IV Q8H [facility]; Protocol Stop: 02/06/24 11:59 Last Admin: 02/04/24 12:20 Dose: 25 mls/hr Doxycycline Hyclate 100 mg/ (Dextrose) 100 mls @ 50 mls/hr IV Q12H [facility] Stop: 02/09/24 07:59 Last Infusion: 02/04/24 11:09 Dose: Infused Hydrocortisone Sodium (Succinate 100 mg/ Syringe) 2 mls @ 4 mls/min IV TID [facility] Stop: 03/05/24 14:59 Magnesium Chloride (Magnesium Chloride W/Calcium 64mg Delayed Rel Tab) 64 mg PO BID [facility] Stop: 03/05/24 09:29 Last Admin: 02/04/24 10:26 Dose: 64 mg Montelukast Sodium (Montelukast Sodium 10 Mg Tablet) 10 mg PO DAILY [facility] Stop: 03/05/24 09:29 Last Admin: 02/04/24 10:26 Dose: 10 mg Pantoprazole Sodium (Pantoprazole 40 Mg Tab) 40 mg PO DAILY [facility] Stop: 03/05/24 09:29 Last Admin: 02/04/24 10:26 Dose: 40 mg Polyethylene Glycol (Polyethylene (Miralax) 17 Gm Pack) 17 gm PO DAILY PRN PRN Reason: Constipation Stop: 03/05/24 09:07 Pregabalin (Pregabalin 100 Mg Cap) 100 mg PO BID [facility] Stop: 03/05/24 09:29 Last Admin: 02/04/24 11:24 Dose: 100 mg Umeclidinium/Vilanterol (Umeclidinium/Vilanterol 62.5/25mcg 7 Puffs/Inhaler) 1 puffs INH DAILY [facility] Stop: 03/05/24 09:29 Last Admin: 02/04/24 11:25 Dose: 1 puffs
[2024-02-04] MEDS: PIPERACILLIN/TAZOBACTAM 4.5 GM/100 ML BAG IV SCH (12:20)
--- NOTE | 2024-02-04 13:36 | Hospitalist Progress Note ---
Date of Service February 04, 2024 Assessment & Plan (1) Hypotension: Plan Pt is a 68-year-old male with past medical history significant for dyslipidemia, prediabetes, COPD, obstructive sleep apnea on oxygen nightly, chronic heart failure with preserved ejection fraction, GERD, obesity, history of septic arthritis, chronic pain syndrome, history of PE, depression presenting with lower chest pain and shortness of breath that started the evening before presentation. In the ER, he was also found to be hypotensive. Hypotension BP in 80/40s on admission Persistent after 3 L of fluids in the ER. Systolic blood pressure in the 80s Lactate normal, procal normal Random cortisol level 16.9 UA unremarkable Respiratory BioFire negative Chest XRAY unremarkable Chest CTA unremarkable CT abd/pelvis unremarkable Blood Cx x 2 sets pending Given doses of IV hydrocortisone to help with BP, improved On IV fluids placed on empiric Zosyn and doxycycline Continue to monitor-improving Chest pain Pt presented with chest pain Trop elevated at 31.6 to 69.7, repeat pending Echo noting EF 55-60%, RV normal function Cardiology consulted, appreciate recs. Recommended/stated the following: "BP improved with IV fluids. Hold Furosemide. Metoprolol held on admission. BP improving. Resume metoprolol tartrate 12.5 mg BID likely later or in AM Repeat echo is unremarkable. Stable LVEF. Continue Eliquis for history of PE. Supplement magnesium. Recheck later today History of non sustained VT, noted during last admission when diagnosed with PE. Resume metoprolol and replace mag No arrhythmias on monitor. No further cardiac testing warranted at this time." Holding home furosemide, metoprolol tartrate at this time continue Eliquis Continue to monitor on telemetry Shortness of breath Acute hypoxic respiratory Failure Has wheezing on exam COPD exacerbation Nebs [id number] and as needed Continue home inhalers IV steroids and antibiotics as above Obstructive sleep apnea Uses oxygen nightly Prediabetes Hgba1c of 6.2 Continue to monitor blood sugars Chronic heart failure with preserved ejection fraction Holding furosemide as noted above On IV fluids Monitor for volume overload Repeat chest XRAY ordered on 02/03 Recent PE On Eliquis CTA chest unremarkable Abdominal discomfort CT abdomen pelvis grossly unremarkable Lipase 18 Continue to monitor Hypomagnesia Replete as needed Continue scheduled supplements History of left elbow olecranon septic arthritis Was treated with 6-week course of IV abx History of diarrhea Will monitor Depression Generalized anxiety disorder On Lexapro Chronic pain syndrome Will hold his oxycodone and cyclobenzaprine for now GERD On Protonix DVT prophylaxis: On Eliquis Diet: HH/DMII Dispo: PT/OT for further recs once medically stable Admission and Anticipated Discharge Date Admission Date: February 04, 2024 Subjective Patient was seen while still down in the emergency room, was sitting up in bed, Did not appear to be in distress Stated that he was short of breath and a bit dizzy Review of Systems Review of Systems: All systems reviewed & are unremarkable except as noted in Subjective Physical Exam Physical Exam: General: Alert, oriented. No acute distress Psych: Appropriate mood and affect Neuro: No gross deficits HEENT: NC/AT CV: RRR Resp: Breath sounds with scattered wheezing bilaterally, no increased effort of breathing Abdomen: Soft, nontender Extremities: No edema in lower extremities bilaterally. Results & Data Results & Data Vital Signs (Past 12 Hours) Vital Signs Temp Pulse Pulse Resp BP BP Pulse Ox 02/04/24 13:10 36.4 C 80 20 114/67 93 02/04/24 12:23 78 20 117/61 93 02/04/24 11:49 82 16 104/58 L 93 02/04/24 11:23 82 22 100/60 93 02/04/24 10:32 82 94 02/04/24 10:18 81 23 105/60 93 02/04/24 10:00 78 21 102/57 L 90 02/04/24 09:48 83 25 H 92/71 L 93 02/04/24 09:33 84 24 99/41 L 93 02/04/24 09:23 02/04/24 09:15 88 24 113/58 L 93 02/04/24 09:08 02/04/24 09:00 89 25 H 97/51 L 94 02/04/24 08:51 87 23 107/52 L 94 02/04/24 08:39 90 24 93/51 L 94 02/04/24 08:30 89 29 H 93/51 L 93 02/04/24 08:27 88 25 H 88/48 L 94 02/04/24 08:09 92 H 27 H 92/63 L 93 02/04/24 08:08 93 H 02/04/24 07:45 92 H 26 H 96/48 L 92 02/04/24 07:15 36.9 C 12/28/24 07:00 94 H 22 88/44 L 93 02/04/24 06:58 90/46 L 02/04/24 06:55 87/45 L 02/04/24 06:45 80/47 L 02/04/24 06:38 101 H 26 H 87/45 L 92 02/04/24 06:15 105 H 20 89/54 L 93 02/04/24 05:57 100 H 26 H 95/57 L 93 02/04/24 05:45 103 H 31 H 95/57 L 94 02/04/24 05:39 103 H 26 H 103/58 L 95 02/04/24 05:18 103 H 26 H 115/59 L 98 02/04/24 04:45 106 H 26 H 97/54 L 98 02/04/24 04:45 102 H 28 H 97/54 L 95 02/04/24 04:30 98 H 94/56 L 93 02/04/24 04:20 103 H 24 96/59 L 93 02/04/24 04:01 100 H 02/04/24 04:00 103 H 24 98/64 L 96 02/04/24 03:45 112 H 22 91/60 L 97 02/04/24 03:31 100 H 28 H 90/52 L 95 02/04/24 03:16 95 H 20 90/49 L 94 02/04/24 03:00 93 02/04/24 02:30 96 H 24 65/41 L 95 02/04/24 02:00 93 H 29 H 112/57 L 100 02/04/24 01:45 89 21 101/61 99 Pulse Ox O2 Del Method O2 Del Method O2 Flow Rate O2 Flow Rate 02/04/24 13:10 Nasal Cannula 2 02/04/24 12:23 Nasal Cannula 3 02/04/24 11:49 Nasal Cannula 3 02/04/24 11:23 Nasal Cannula 3 02/04/24 10:32 Nasal Cannula 3 02/04/24 10:18 Nasal Cannula 3 02/04/24 10:00 02/04/24 09:48 02/04/24 09:33 02/04/24 09:23 Nasal Cannula 3 02/04/24 09:15 Nasal Cannula 3 02/04/24 09:08 94 Nasal Cannula 3 02/04/24 09:00 Nasal Cannula 3 02/04/24 08:51 Nasal Cannula 3 02/04/24 08:39 02/04/24 08:30 02/04/24 08:27 02/04/24 08:09 02/04/24 08:08 02/04/24 07:45 Nasal Cannula 3 02/04/24 07:15 02/04/24 07:00 Nasal Cannula 3 02/04/24 06:58 02/04/24 06:55 02/04/24 06:45 02/04/24 06:38 Nasal Cannula 3 02/04/24 06:15 Nasal Cannula 3 02/04/24 05:57 Nasal Cannula 3 02/04/24 05:45 Nasal Cannula 3 02/04/24 05:39 Nasal Cannula 3 02/04/24 05:18 Nasal Cannula 3 02/04/24 04:45 Nasal Cannula 3 02/04/24 04:45 Nasal Cannula 3 02/04/24 04:30 Nasal Cannula 3 02/04/24 04:20 Nasal Cannula 3 02/04/24 04:01 02/04/24 04:00 Nasal Cannula 2 02/04/24 03:45 Nasal Cannula 2 02/04/24 03:31 Nasal Cannula 2 02/04/24 03:16 Nebulizer 8 02/04/24 03:00 02/04/24 02:30 02/04/24 02:00 02/04/24 01:45 Diagnostic Findings Chest X-Ray 02/03/24 23:57 EXAM: XR chest 1V portable CLINICAL HISTORY: CHEST PAIN, SOB KFK TECHNIQUE: Radiograph of chest was acquired. COMPARISON: None. FINDINGS: Left total shoulder arthroplasty implant in situ. Fibrotic changes are noted in the left lower lung zone. The remaining lungs are clear and well-expanded with no pulmonary infiltrate or pleural effusion. The cardiomediastinal silhouette is within normal limits. No acute osseous abnormality. IMPRESSION: 1. Left total shoulder arthroplasty in situ. 2. Left lower lung zone fibrotic changes. 3. No acute abnormality. Electronically signed by Jean Claude Jiang 02-04-2024 01:28 AM Chest CTA 02/04/24 02:08 EXAM: CT angio chest PE protocol CLINICAL HISTORY: substernal chest apin starting on the left and going across the diaphragm that began at 1730. Pt reports cough, chills, and feeling unwell for the past week. Pt recently completed antibiotics and predinsone but does not feel it helped. Pt does take blood thinner 2x daily. He weres 2L O2 at night. 88 ml opti 320 PW/GS TECHNIQUE: Contiguous axial images were obtained from the neck base through the upper abdomen following intravenous administration of contrast material. If IV contrast material had not been administered, the likelihood of detecting abnormalities relevant to the patient's condition would have been substantially decreased. In addition, sagittal and coronal reconstructions were performed. CT scan was performed according to ALARA (as low as reasonable achievable). COMPARISON: None. FINDINGS: The lungs show few fibrotic bands in bilateral lower lobes and lingula. Mild centrilobular and paraseptal emphysema is noted in bilateral upper lobes. No focal areas of consolidation. No pulmonary nodules are seen. The central airways are patent. There are no pleural effusions. No pneumothorax is seen. No axillary, hilar, or mediastinal adenopathy is identified. The visualized thyroid is unremarkable. The heart, aorta, and pulmonary arteries are of normal size and configuration. No pericardial effusion is identified. Imaged portions of the upper abdomen are unremarkable. Degenerative changes are noted in the visualized spine. IMPRESSION: 1. No obvious pulmonary embolism. 2. Mild centrilobular and paraseptal emphysema in bilateral upper lobes. 3. Fibrotic bands in bilateral lower lobes and lingula. Electronically signed by Jean Claude Jiang 02-04-2024 04:30 AM Abdomen/Pelvis CT 02/04/24 07:16 CT abd pelvis IV con only CLINICAL HISTORY: abd pain, hypotension TECHNIQUE: Helical axial images of the abdomen and pelvis were obtained and displayed. Automated dose lowering techniques and/or adjustment according to patient size were utilized for this exam. This exam was performed with intravenous contrast. CT DOSE: 1375.26 mGy.cm COMPARISON: Comparison is made to CT abdomen pelvis 04/04/2023 FINDINGS: Lower chest: Peripheral interstitial thickening and bronchial wall thickening is seen. Liver: Unremarkable. No focal lesions are seen. Gallbladder and biliary tree: No calcified gallstones. Normal caliber wall. No intra- or extrahepatic biliary ductal dilation. Pancreas: Unremarkable, no focal lesions. Spleen: Unremarkable. Adrenals: Unremarkable. Kidneys and ureters: Perinephric stranding is noted bilaterally. Bladder: Unremarkable. Reproductive organs: Unremarkable. Bowel: The appendix is normal. Lymph nodes Retroperitoneal: Unremarkable. Pelvic: Unremarkable. Mesenteric: Unremarkable. Peritoneum: Normal. Vessels: Atherosclerotic calcifications are seen. These are most prominent in the left common iliac artery. Abdominal wall: Left fat containing inguinal hernia. Bones: Compression deformities of L2, L4, and L5 are stable. Left trochanteric nail is stable. IMPRESSION: No acute abnormality to explain abdominal pain and hypotension. ACT 112: Negative or not required by law. Electronically signed by: Florin Soto M.D. 02/04/2024 8:21 AM
[2024-02-04] MEDS ORDERED: HYDROCORTISONE SOD SUCCINATE 100 MG/2 ML VIAL IV SCH (15:00)
[2024-02-04] MEDS: HYDROCORTISONE SOD 100 MG in SYRINGE 0 ML IV SCH (15:19)
--- NOTE | 2024-02-04 17:30 | XRay Report ---
INDICATION: Cough. TECHNIQUE: Frontal radiograph of the chest. COMPARISON: Radiograph from yesterday. FINDINGS: Cardiomegaly. Pulmonary vasculature appear within normal limits. Chronic appearing interstitial lung markings. No infiltrate, pleural effusion or pneumothorax. No acute osseous abnormality evident. IMPRESSION: No acute cardiopulmonary process. Electronically signed by Gaston Avila 02-04-2024 5:30 PM
[2024-02-04] MEDS: BENZONATATE 100 MG CAPSULE PO PRN (21:43)
[2024-02-04] MEDS: BENZONATATE 100 MG CAPSULE PO ONE (21:44)
[2024-02-05] MEDS: COUGH DROP (SUGAR FREE) LOZ 24 LOZ/1 BOX BUCCAL PRN (03:29)
[2024-02-05] MEDS: METOPROLOL TARTRATE 25 MG TAB PO SCH (04:49)
[2024-02-05 04:55] LABS: Basophils # (auto) 0.01 K/uL (0.00-0.20); Basophils % (auto) 0.1 %; Hematocrit (blood only) 35.8 % (42.0-52.0); Hemoglobin 12.1 g/dl (14.0-18.0); Immature Granulocytes # (auto) 0.04 K/uL (0.01-0.20); Immature Granulocytes % (auto) 0.4 %; Lymphocytes # (auto) 0.86 K/uL (1.20-3.40); Lymphocytes % (auto) 8.9 %; Mean Corpuscular Hemoglobin 30.1 pg (25.0-34.0); Mean Corpuscular Hgb Conc 33.8 g/dL (32.0-36.0); Mean Corpuscular Volume 89.1 fL (80.0-100.0); Mean Platelet Volume 10.5 fL (9.4-12.4); Monocytes # (auto) 0.82 K/uL (0.11-0.59); Monocytes % (auto) 8.5 %; Neutrophils # (auto) 7.95 K/uL (1.40-6.50); Neutrophils % (auto) 82.1 %; Platelet Count 255 K/uL (130-400); RDW Standard Deviation 52.6 fL (36.4-46.3); Red Blood Count 4.02 M/uL (4.70-6.10); White Blood Count 9.68 K/ul (4.8-10.8)
[2024-02-05 05:10] LABS: Albumin Globulin Ratio 1.1 (0.9-2); Albumin Level 3.1 gm/dl (3.4-5.0); BUN Creatinine Ratio 21.6 (10-20); Bilirubin,Total 0.3 mg/dl (0.2-1.0); Calcium 8.5 mg/dl (8.6-10.3); Creatinine Clr Calc Pharmacy 100.6 ml/min; Globulin 2.7 gm/dl (2.5-4.0); Magnesium 2.6 mg/dl (1.7-2.4); Phosphorus 3.5 mg/dl (2.5-4.9); Potassium 4.3 mmol/L (3.5-5.1); Total Protein 5.8 gm/dl (6.0-8.3)
--- NOTE | 2024-02-05 10:18 | Electrocardiogram Report ---
Test Reason : Blood Pressure : */* mmHG Vent. Rate : 75 BPM Atrial Rate : 75 BPM P-R Int : 170 ms QRS Dur : 90 ms QT Int : 404 ms P-R-T Axes : 69 22 20 degrees QTcB Int : 451 ms Normal sinus rhythm Normal ECG When compared with ECG of 03-Feb-2024 23:59, Vent. rate has decreased by 39 bpm T wave amplitude has decreased in Anterior leads Confirmed by Margaret Sevilla (Alicia) on 02/05/2024 10:17:35 AM Referred By: REFERRED SELF Confirmed By: Margaret Sevilla
[2024-02-05] MEDS: ACETAMINOPHEN 325 MG TAB PO PRN (13:51)
--- NOTE | 2024-02-05 14:29 | Hospitalist Progress Note ---
Date of Service February 05, 2024 Assessment & Plan (1) Hypotension: Plan Pt is a 68-year-old male with past medical history significant for dyslipidemia, prediabetes, COPD, obstructive sleep apnea on oxygen nightly, chronic heart failure with preserved ejection fraction, GERD, obesity, history of septic arthritis, chronic pain syndrome, history of PE, depression presenting with lower chest pain and shortness of breath that started the evening before presentation. In the ER, he was also found to be hypotensive. Shortness of breath Acute hypoxic respiratory Failure COPD Exacerbation Has wheezing on exam likely in setting of an acute COPD exacerbation Chest XRAY unremarkable CTA chest noting no PE but mild emphysema Nebs [id number] and as needed Continue home inhalers IV steroids transitioned to po prednisone 40mg daily for 5 days Treated with antibiotics -IV zosyn has been discontinued, continue with po doxycycline Oxygen supplementation as needed PRN cough meds with mucinex scheduled and prn pain meds for associated rib pain with coughing Consider pulmonology followup Improving, continue to monitor Hypotension BP in 80/40s on admission Persistent after 3 L of fluids in the ER. Systolic blood pressure in the 80s Less likely related to an acute infectious picture -Lactate normal, procal normal -UA unremarkable -Respiratory BioFire negative -Chest XRAY unremarkable -Chest CTA unremarkable -CT abd/pelvis unremarkable -Blood Cx x 2 sets NGTD Random cortisol level 16.9 Given doses of IV hydrocortisone to help with BP, improved. Continue with po prednisone Was also on IV fluids, has since been discontinued Was on empiric abx as noted above BP currently improved at this time Chest pain V tach episodes Pt presented with chest pain Trop elevated at 31.6 to 69.7 to 70s, repeat pending Echo noting EF 55-60%, RV normal function Cardiology consulted, appreciate recs. Recommended/stated the following: "BP improved with IV fluids. Hold Furosemide. Metoprolol held on admission. BP improving. Resume metoprolol tartrate 12.5 mg BID likely later or in AM Repeat echo is unremarkable. Stable LVEF. Continue Eliquis for history of PE. Supplement magnesium. Recheck later today History of non sustained VT, noted during last admission when diagnosed with PE. Resume metoprolol and replace mag No arrhythmias on monitor. No further cardiac testing warranted at this time." Held home furosemide, scheduled to resume on 02/05 Metoprolol tartrate resumed in early AM 12/29 after run of v tach noted continue Eliquis Continue to monitor on telemetry Obstructive sleep apnea Uses oxygen nightly Prediabetes Hgba1c of 6.2 Continue to monitor blood sugars Chronic heart failure with preserved ejection fraction Holding furosemide as noted above On IV fluids Monitor for volume overload Repeat chest XRAY ordered on 02/03 Recent PE On Eliquis CTA chest unremarkable Abdominal discomfort CT abdomen pelvis grossly unremarkable Lipase 18 Continue to monitor Hypomagnesia Replete as needed Continue scheduled supplements- currently on hold as levels elevated History of left elbow olecranon septic arthritis Was treated with 6-week course of IV abx History of diarrhea Will monitor Depression Generalized anxiety disorder On Lexapro Chronic pain syndrome Will hold his oxycodone and cyclobenzaprine for now GERD On Protonix DVT prophylaxis: On Eliquis Diet: HH/DMII Dispo: PT/OT for further recs once medically stable Admission and Anticipated Discharge Date Admission Date: February 04, 2024 Subjective Patient was seen initially in the a.m. resting comfortably in bed Notes that he has pain with coughing Per nursing Tylenol not helping with the pain related to the cough Review of Systems Review of Systems: All systems reviewed & are unremarkable except as noted in Subjective Physical Exam Physical Exam: General: Alert, oriented. No acute distress Psych: Appropriate mood and affect Neuro: No gross deficits HEENT: NC/AT CV: RRR Resp: Breath sounds with scattered wheezing bilaterally, no increased effort of breathing Abdomen: Soft, tender in epigastrium and right rib area Extremities: No edema in lower extremities bilaterally. Results & Data Results & Data Vital Signs (Past 12 Hours) Vital Signs Temp Pulse Pulse Pulse Resp BP Pulse Ox 02/05/24 14:15 81 02/05/24 11:10 36.6 C 86 18 108/62 94 02/05/24 10:52 72 19 92 02/05/24 07:26 71 18 96 02/05/24 07:19 02/05/24 07:18 36.5 C 80 17 114/64 96 02/05/24 07:02 85 02/05/24 04:45 76 116/69 02/05/24 03:17 36.4 C L 75 16 115/69 94 O2 Del Method O2 Flow Rate 02/05/24 14:15 02/05/24 11:10 Nasal Cannula 1 02/05/24 10:52 Nasal Cannula 1 02/05/24 07:26 Nasal Cannula 2 02/05/24 07:19 Nasal Cannula 2 02/05/24 07:18 Nasal Cannula 3 02/05/24 07:02 02/05/24 04:45 02/05/24 03:17 Nasal Cannula 2 Diagnostic Findings Chest X-Ray 02/03/24 23:57 EXAM: XR chest 1V portable CLINICAL HISTORY: CHEST PAIN, SOB KFK TECHNIQUE: Radiograph of chest was acquired. COMPARISON: None. FINDINGS: Left total shoulder arthroplasty implant in situ. Fibrotic changes are noted in the left lower lung zone. The remaining lungs are clear and well-expanded with no pulmonary infiltrate or pleural effusion. The cardiomediastinal silhouette is within normal limits. No acute osseous abnormality. IMPRESSION: 1. Left total shoulder arthroplasty in situ. 2. Left lower lung zone fibrotic changes. 3. No acute abnormality. Electronically signed by Jean Claude Jiang 02-04-2024 01:28 AM Chest CTA 02/04/24 02:08 EXAM: CT angio chest PE protocol CLINICAL HISTORY: substernal chest apin starting on the left and going across the diaphragm that began at 1730. Pt reports cough, chills, and feeling unwell for the past week. Pt recently completed antibiotics and predinsone but does not feel it helped. Pt does take blood thinner 2x daily. He weres 2L O2 at night. 88 ml opti 320 PW/GS TECHNIQUE: Contiguous axial images were obtained from the neck base through the upper abdomen following intravenous administration of contrast material. If IV contrast material had not been administered, the likelihood of detecting abnormalities relevant to the patient's condition would have been substantially decreased. In addition, sagittal and coronal reconstructions were performed. CT scan was performed according to ALARA (as low as reasonable achievable). COMPARISON: None. FINDINGS: The lungs show few fibrotic bands in bilateral lower lobes and lingula. Mild centrilobular and paraseptal emphysema is noted in bilateral upper lobes. No focal areas of consolidation. No pulmonary nodules are seen. The central airways are patent. There are no pleural effusions. No pneumothorax is seen. No axillary, hilar, or mediastinal adenopathy is identified. The visualized thyroid is unremarkable. The heart, aorta, and pulmonary arteries are of normal size and configuration. No pericardial effusion is identified. Imaged portions of the upper abdomen are unremarkable. Degenerative changes are noted in the visualized spine. IMPRESSION: 1. No obvious pulmonary embolism. 2. Mild centrilobular and paraseptal emphysema in bilateral upper lobes. 3. Fibrotic bands in bilateral lower lobes and lingula. Electronically signed by Jean Claude Jiang 02-04-2024 04:30 AM Abdomen/Pelvis CT 02/04/24 07:16 CT abd pelvis IV con only CLINICAL HISTORY: abd pain, hypotension TECHNIQUE: Helical axial images of the abdomen and pelvis were obtained and displayed. Automated dose lowering techniques and/or adjustment according to patient size were utilized for this exam. This exam was performed with intravenous contrast. CT DOSE: 1375.26 mGy.cm COMPARISON: Comparison is made to CT abdomen pelvis 04/04/2023 FINDINGS: Lower chest: Peripheral interstitial thickening and bronchial wall thickening is seen. Liver: Unremarkable. No focal lesions are seen. Gallbladder and biliary tree: No calcified gallstones. Normal caliber wall. No intra- or extrahepatic biliary ductal dilation. Pancreas: Unremarkable, no focal lesions. Spleen: Unremarkable. Adrenals: Unremarkable. Kidneys and ureters: Perinephric stranding is noted bilaterally. Bladder: Unremarkable. Reproductive organs: Unremarkable. Bowel: The appendix is normal. Lymph nodes Retroperitoneal: Unremarkable. Pelvic: Unremarkable. Mesenteric: Unremarkable. Peritoneum: Normal. Vessels: Atherosclerotic calcifications are seen. These are most prominent in the left common iliac artery. Abdominal wall: Left fat containing inguinal hernia. Bones: Compression deformities of L2, L4, and L5 are stable. Left trochanteric nail is stable. IMPRESSION: No acute abnormality to explain abdominal pain and hypotension. ACT 112: Negative or not required by law. Electronically signed by: Florin Soto M.D. 02/04/2024 8:21 AM Chest X-Ray 02/04/24 17:10 INDICATION: Cough. TECHNIQUE: Frontal radiograph of the chest. COMPARISON: Radiograph from yesterday. FINDINGS: Cardiomegaly. Pulmonary vasculature appear within normal limits. Chronic appearing interstitial lung markings. No infiltrate, pleural effusion or pneumothorax. No acute osseous abnormality evident. IMPRESSION: No acute cardiopulmonary process. Electronically signed by Gaston Avila 02-04-2024 5:30 PM
[2024-02-05] MEDS: guaiFENesin/DEXTROM SYRUP 100MG/10MG 5ML UDC PO PRN (15:29)
[2024-02-05] MEDS: traMADol HCL 50 MG TABLET PO PRN (15:29)
[2024-02-05] MEDS: predniSONE 20 MG TAB PO SCH (18:48)
[2024-02-05] MEDS: guaiFENesin 600 MG TABCR PO SCH (20:17)
[2024-02-05] MEDS ORDERED: guaiFENesin 600 MG TABCR PO SCH (21:00)
[2024-02-06 06:40] LABS: Basophils # (auto) 0.01 K/uL (0.00-0.20); Basophils % (auto) 0.1 %; Eosinophils # (auto) 0.01 K/uL (0.00-0.50); Eosinophils % (auto) 0.1 %; Hematocrit (blood only) 40.5 % (42.0-52.0); Hemoglobin 13.8 g/dl (14.0-18.0); Immature Granulocytes # (auto) 0.04 K/uL (0.01-0.20); Immature Granulocytes % (auto) 0.4 %; Lymphocytes # (auto) 0.43 K/uL (1.20-3.40); Lymphocytes % (auto) 4.6 %; Mean Corpuscular Hemoglobin 30.6 pg (25.0-34.0); Mean Corpuscular Hgb Conc 34.1 g/dL (32.0-36.0); Mean Corpuscular Volume 89.8 fL (80.0-100.0); Monocytes # (auto) 0.56 K/uL (0.11-0.59); Neutrophils # (auto) 8.23 K/uL (1.40-6.50); Neutrophils % (auto) 88.8 %; Platelet Count 265 K/uL (130-400); RDW Coefficient of Variation 16.1 % (11.5-14.5); RDW Standard Deviation 53.2 fL (36.4-46.3); Red Blood Count 4.51 M/uL (4.70-6.10); White Blood Count 9.28 K/ul (4.8-10.8)
[2024-02-06 07:11] LABS: Albumin Globulin Ratio 1.1 (0.9-2); Albumin Level 3.6 gm/dl (3.4-5.0); BUN Creatinine Ratio 20.3 (10-20); Bilirubin,Total 0.3 mg/dl (0.2-1.0); Calcium 9.5 mg/dl (8.6-10.3); Creatinine Clr Calc Pharmacy 91.5 ml/min; Globulin 3.2 gm/dl (2.5-4.0); Magnesium 2.3 mg/dl (1.7-2.4); Potassium 5.4 mmol/L (3.5-5.1); Total Protein 6.8 gm/dl (6.0-8.3)
[2024-02-06] MEDS ORDERED: FUROSEMIDE 40 MG TAB PO SCH (09:00)
[2024-02-06] MEDS: HYDROCORTISONE SOD 100 MG in SYRINGE 0 ML IV SCH (10:02)
--- NOTE | 2024-02-06 10:33 | Electrocardiogram Report ---
Test Reason : Blood Pressure : */* mmHG Vent. Rate : 83 BPM Atrial Rate : 83 BPM P-R Int : 170 ms QRS Dur : 86 ms QT Int : 386 ms P-R-T Axes : 70 65 19 degrees QTcB Int : 453 ms Normal sinus rhythm with sinus arrhythmia Normal ECG When compared with ECG of 05-Feb-2024 04:58, No significant change was found Confirmed by José Luis Rios ([id number]) on 02/06/2024 10:33:11 AM Referred By: REFERRED SELF Confirmed By: José Luis Rios
--- NOTE | 2024-02-06 15:58 | Pulmonary Consultation ---
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): (5) Multiple pulmonary nodules: Plan CTA chest 02/04/2024 personally reviewed: Centrilobular and paraseptal emphysema appreciated bilaterally Linear atelectasis of the left upper lobe Increased reticular marking on the periphery bilateral lower lobes more on the right lower side No significant mediastinal lymphadenopathy 2D echo 02/04/2024: EF 55-60%, mild concentric LVH, RV normal in size and function PFT 07/06/2022 personally reviewed: Mild obstructive lung dysfunction, insignificant bronchodilator response, normal TLC with mild decrease in ERV, mild decrease in DLCO (Increased FVC by 440 mL, no significant change in FEV1, increased DLCO 53--> 68%, improved air trapping, no significant change in weight compared to 06/2018) FVC 4 L 106%, FEV1 2.23 L 80%, FEV1/FVC 56%, RV 126%, TLC 111%, RV/TLC 114%, DLCO 68%, DLCO/VA 66% -- COPD with emphysema and chronic bronchitis Gold class E Patient seem to have some increased reticular marking on the periphery, early CPFE is a possibility There is family history of autoimmune disease in daughter with rheumatoid arthritis Autoimmune workup 09/14/2022 was 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, negative for everything else Respiratory BioFire negative for everything on 02/04/24, nasal MRSA negative Procalcitonin 0.1 At home on Trelegy 200 on a daily basis along with as needed albuterol QTc 453 on 02/06/2024 For chronic bronchitis patient has been taking Mucinex along with Mucomyst nebulizer Absolute eosinophil count 430 on 04/07/2022 -- Multiple pulmonary nodules Largest being 3 mm left lower lobe Next screening CAT scan 01/2025 --History of pulmonary emboli Diagnosed 11/30 On Eliquis --TAYLOR Polysomnography 06/22/2023: 7 cm H2O CPAP pressure was recommended Patient did not get the CPAP machine as he had $ 240 due before he could get the machine. Continue with CPAP nightly and as needed shortness of breath while in the hospital -- Current smoker [id number] smoking history Importance of quitting expanded the patient in depth Denies any suicidal ideation, willing to try Chantix Plan: Change inhalers to nebulizers Complete the course of doxycycline for 5 days Patient was hypotensive on presentation. He was on prednisone as well as azithromycin prior to coming to the hospital Random cortisol will be low in such instances, I am not sure if he has adrenal insufficiency. Recommend to DC hydrocortisone and rather give him Solu-Medrol 40 mg on a daily basis starting tomorrow Add hypertonic saline, Mucinex and flutter valve to help with phlegm Case discussed with primary team as well as cardiology Please note the above document was generated using voice recognition software. It may contain grammatical, syntax or spelling errors.Any formal questions or concerns about the content, text or information contained within the body of this dictation should be directly addressed to the provider for clarification. History of Present Illness Attending Physician: Paz Carlson MD History of Present Illness 69-year-old male present to the hospital for chest pain and shortness of breath Past medical history: Dyslipidemia, GERD TAYLOR, unable to tolerate CPAP Patient was last seen by me in the clinic on 04/26/2023 Patient's was in the room at the time of examination. Patient was recently given azithromycin and prednisone just prior to coming to the hospital as his breathing was getting worse He was using Trelegy 200 on a daily basis. He stated that he has been having chest pain which is retrosternal radiating to the left side It can occur even at rest and on exertion. Lasts less than a minute. Lately has been eating a lot of spicy food as well as drinking a lot of coffee. Has been compliant with his Eliquis Has been complaining lately of chest congestion and difficulty bringing up the phlegm When he does bring up the phlegm is mostly clear No night sweats, no unintentional weight loss No unusual headache, no blurry vision No fever or chills No personal history of autoimmune disease like lupus, sarcoid, Sjogren's, rheumatoid Family history of rheumatoid arthritis in daughter No dry eyes, no dry mouth, no Raynaud's Social history: [id number] smoking history, active smoker, no alcohol, denies any illicit drug use. 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 Pets: 2 dogs and 3 cats at home. No birds or poultry nearby Allergies: Seasonal Asthma: No personal or family history of asthma Lung cancer: No history of lung cancer in the family Allergies Allergy/AdvReac Type Severity Reaction Status Date / Time No Known Allergies Allergy Verified 12/08/23 15:18 Home Medications Medication Instructions Recorded Confirmed Type albuterol sulfate 90 mcg/actuation 2 puff inhalation Q4H PRN 02/04/24 02/04/24 History aerosol inhaler Shortness Of Breath Or Wheezing apixaban 5 mg tablet (Eliquis) 5 mg PO BID 02/04/24 02/04/24 History aspirin 81 mg tablet,delayed 81 mg PO DAILY 02/04/24 02/04/24 History release cyanocobalamin (vitamin B-12) 1,000 mcg PO DAILY 02/04/24 02/04/24 History 1,000 mcg tablet cyclobenzaprine 5 mg tablet 5 mg PO TID PRN muscle spasms 02/04/24 02/04/24 History escitalopram oxalate 10 mg tablet 10 mg PO DAILY 02/04/24 02/04/24 History fluticasone fur. 200 mcg-umeclid 1 inh inhalation DAILY 02/04/24 02/04/24 History 62.5 mcg-vilant 25 mcg inhalat.powder (Trelegy Ellipta) furosemide 40 mg tablet 40 mg PO DAILY 02/04/24 02/04/24 History levalbuterol HCl 1.25 mg/3 mL 1.25 mg inhalation Q4H PRN 02/04/24 02/04/24 History solution for nebulization Shortness Of Breath Or Wheezing loperamide 2 mg tablet 4 mg PO TID PRN Diarrhea 02/04/24 02/04/24 History lorazepam 0.5 mg tablet 0.5 mg PO Q6H PRN Agitation 02/04/24 02/04/24 History magnesium chloride 64 mg 64 mg PO BID 02/04/24 02/04/24 History (magnesium chloride) tablet,delayed release metoprolol tartrate 25 mg tablet 12.5 mg PO BID 02/04/24 02/04/24 History montelukast 10 mg tablet 10 mg PO DAILY 02/04/24 02/04/24 History oxycodone 5 mg tablet 5 mg PO Q6H PRN Pain 02/04/24 02/04/24 History pantoprazole 40 mg tablet,delayed 40 mg PO DAILY 02/04/24 02/04/24 History release pregabalin 100 mg capsule 100 mg PO BID 02/04/24 02/04/24 History Patient History Medical History Hyperglycemia Ha1c 6.2% 10/10/23 labs; no mention of DMII by PCP Cigarette smoker Obesity 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 Saw vascular: started on [id number] and Eliquis. Eliquis was then D/C by pulmonary 04/2023. Pt had normal f/u chest CTA 06/20/23 Irregular cardiac rhythm pt noted to have 25beats of Nonsustained VTach vs PAT day of discharge (08/09/23) [facility]; pt denied sx; started on metoprolol and ordered Zio monitor and Cardio referral Peripheral vascular disease Chronic diastolic heart failure PCP monitoring; ECHO 10/03/23 with nl EF and Gr I DD. 'no changes to medications needed at this time. Continue lasix daily' per PCP Chronic back pain "hx broken back"no back surgery Arthritis GERD (gastroesophageal reflux disease) Hx pulmonary embolism 2017 developed after a bad fall (was on coumadin for 1 year) Cardiac murmur no significant valve disease per 10/03/23 ECHO Hypertension Hyperlipidemia Chronic obstructive pulmonary disease 'group D' per pulm. Pt admitted [facility] for COPD exacerbation 10/08-10/11/23; admitted [facility] for COPD exacerbation (also had COVID at the time): 09/22- 09/25/23; admitted for COPD exacerbation 05/17-05/21/23 Asthma required rescue inhaler "just the other day" Chronic respiratory failure On oxygen at night in the past - but no longer needs per patient . Per 10/18/23 PCP note, 'pt stable from a respiratory standpoint' Hx of migraines Sleep apnea 2L O2 HS (no other device) History of COVID-19 Admitted [facility] 09/22-09/25/23 COVID+ and COPD exacerbation; pt states no longer having COVID sx Pneumothorax Hx- complication from pain injection- resolved Histoplasmosis 2002- treated Surgical History H/O hernia repair History of esophagogastroduodenoscopy (EGD) Hx of colonoscopy History of open reduction and internal fixation (ORIF) procedure right shoulder History of total replacement of left shoulder joint History of sinus surgery History of placement of chest tube History of hand surgery right/left Left femoral shaft fracture Dutch placed>hardware intact H/O total hip arthroplasty left H/O elbow surgery R radial head ORIF prior to 2009; R elbow I&D 08/05/23: GA: MAC#4, ETT#7.5HiLo, Gr View 1 H/O exploratory thoracotomy "Left thoracotomy wedge biopsy of left upper lobe with excision of lesion or nodule & frozen section 2002" H/O hernia repair [facility] incarcerated supraumbilical hernia repair open no mesh 02/17/01 Family History Father Heart disease Hypertension Brother Heart disease Cancer Hypertension Stroke Mother Cancer Other Leukemia No family history of adverse response to anesthesia No family history of bleeding disorder Non-Hodgkin lymphoma Denies family history of Hearing loss Asthma Social History Smoking Status: Current every day smoker Tobacco Type: Cigarettes Age Started Using Tobacco: 11; packs per day: 1; Cigarettes Per Day: 10 cig daily>advised; Second Hand Exposure: No; Do You Dip or Chew Tobacco: No; Hx Alcohol Use: No Hx Substance Use: No Preferred Language: [place] Communication Ability: Effective [employer] Wiring Technician Required: No Beliefs That Will Affect Care: None marital status: Current Living Situation: Spouse current occupational status: unemployed Other Information That Helps Us Care for You: No Feels Safe at Home: Yes Safety Concerns: Feels Safe At This Time Assistive Devices: Oxygen - at Night Review of Systems 2 Review of Systems: All systems reviewed & are unremarkable except as noted in HPI & below Physical Exam 2 Physical Exam: Constitutional: No acute distress HEENT: EOMI, PERRLA Respiratory system: Decreased air entry bilaterally, no rhonchi, very minimal end expiratory wheeze bilaterally, positive crackles bilateral lower lobes Velcro-like CVS: S1-S2 positive, no murmurs or gallops Abdomen: Soft, nontender, nondistended, positive bowel sounds x4 Extremities: +2 pulses bilaterally radialis/ dorsalis pedis, no cyanosis, +1 pitting edema bilateral lower extremity Neuro: Awake alert oriented x3 Psych: Normal mood and affect G/U: No Hernandez Skin: no rashes, warm and dry Lymphatic: no cervical or axillary lymphadenopathy Results & Data Results & Data Vital Signs (Past 12 Hours) Vital Signs Temp Pulse Pulse Resp BP Pulse Ox O2 Del Method 02/06/24 14:58 67 18 108/63 98 Nebulizer 02/06/24 14:53 69 18 92 Room Air 02/06/24 11:23 70 20 91 Nasal Cannula 02/06/24 10:50 36.9 C 68 16 102/63 93 Nasal Cannula 02/06/24 07:31 68 16 96 Nasal Cannula 02/06/24 07:30 63 02/06/24 07:30 Nasal Cannula 02/06/24 07:21 36.8 C 71 20 96/55 L 97 Nasal Cannula 02/06/24 03:51 37.0 C 65 18 100/62 94 Nasal Cannula O2 Flow Rate 02/06/24 14:58 02/06/24 14:53 02/06/24 11:23 1 02/06/24 10:50 1 02/06/24 07:31 2 02/06/24 07:30 02/06/24 07:30 1 02/06/24 07:21 2 02/06/24 03:51 Laboratory Results 02/06/24 06:07 02/06/24 06:07 PG Care Time/CCT Total # of Minutes Spent Total Time Spent with Patient: Total time spent is greater than 50% in coordination of care (as documented) at patient's floor/unit and/or counseling patient: Coding Level of Care Code 20898 INT INP/OBS CARE 3/75MIN Diagnoses Pulmonary embolism I26.99 Acute cor pulmonale presence: without acute cor pulmonale Chronicity: acute Pulmonary embolism type: unspecified Chronic bronchitis J42 COPD with emphysema J43.9 Combined pulmonary fibrosis and emphysema (CPFE) J43.9; J84.10 Multiple pulmonary nodules R91.8
--- NOTE | 2024-02-06 16:36 | Hospitalist Progress Note ---
Date of Service February 06, 2024 Assessment & Plan (1) Hypotension: Plan Pt is a 68-year-old male with past medical history significant for dyslipidemia, prediabetes, COPD, obstructive sleep apnea on oxygen nightly, chronic heart failure with preserved ejection fraction, GERD, obesity, history of septic arthritis, chronic pain syndrome, history of PE, depression presenting with lower chest pain and shortness of breath that started the evening before presentation. In the ER, he was also found to be hypotensive. Shortness of breath Acute hypoxic respiratory Failure COPD Exacerbation Has wheezing on exam likely in setting of an acute COPD exacerbation Chest XRAY unremarkable CTA chest noting no PE but mild emphysema Nebs [id number] and as needed Continue home inhalers IV steroids transitioned to po prednisone 40mg daily for 5 days Treated with antibiotics -IV zosyn has been discontinued, continue with po doxycycline Oxygen supplementation as needed PRN cough meds with mucinex scheduled and prn pain meds for associated rib pain with coughing pulmonology consulted, appreciate recs Improving, continue to monitor Hypotension BP in 80/40s on admission Persistent after 3 L of fluids in the ER. Systolic blood pressure in the 80s Less likely related to an acute infectious picture -Lactate normal, procal normal -UA unremarkable -Respiratory BioFire negative -Chest XRAY unremarkable -Chest CTA unremarkable -CT abd/pelvis unremarkable -Blood Cx x 2 sets NGTD Random cortisol level 16.9 Given doses of IV hydrocortisone to help with BP, improved. po prednisone on hold Was also on IV fluids, has since been discontinued Was on empiric abx as noted above BP currently improved at this time Chest pain V tach episodes Pt presented with chest pain Trop elevated at 31.6 to 69.7 to 70s before downtrending Echo noting EF 55-60%, RV normal function Cardiology consulted, appreciate recs. Recommended/stated the following: "BP improved with IV fluids. Hold Furosemide. Metoprolol held on admission. BP improving. Resume metoprolol tartrate 12.5 mg BID likely later or in AM Repeat echo is unremarkable. Stable LVEF. Continue Eliquis for history of PE. Supplement magnesium. Recheck later today History of non sustained VT, noted during last admission when diagnosed with PE. Resume metoprolol and replace mag No arrhythmias on monitor. No further cardiac testing warranted at this time." Held home furosemide Metoprolol tartrate resumed in early AM 02/04 after run of v tach noted continue Eliquis Continue to monitor on telemetry 02/05- Cardiology reconsulted, by pullaz. Appreciate further recs Obstructive sleep apnea Uses oxygen nightly Prediabetes Hgba1c of 6.2 Continue to monitor blood sugars Chronic heart failure with preserved ejection fraction Holding furosemide as noted above On IV fluids Monitor for volume overload Repeat chest XRAY ordered on 02/03 Recent PE On Eliquis CTA chest unremarkable Abdominal discomfort CT abdomen pelvis grossly unremarkable Lipase 18 Continue to monitor Hypomagnesia Replete as needed Continue scheduled supplements- currently on hold as levels elevated History of left elbow olecranon septic arthritis Was treated with 6-week course of IV abx History of diarrhea Will monitor Depression Generalized anxiety disorder On Lexapro Chronic pain syndrome Will hold his oxycodone and cyclobenzaprine for now GERD On Protonix DVT prophylaxis: On Eliquis Diet: HH/DMII Dispo: PT/OT for further recs once medically stable Admission and Anticipated Discharge Date Admission Date: February 04, 2024 Subjective Patient was seen laying in bed States that he still has the cough with some abdominal pain Review of Systems Review of Systems: All systems reviewed & are unremarkable except as noted in Subjective Physical Exam Physical Exam: General: Alert, oriented. No acute distress Psych: Appropriate mood and affect Neuro: No gross deficits HEENT: NC/AT CV: RRR Resp: Breath sounds with scattered wheezing bilaterally, no increased effort of breathing Abdomen: Soft, tender in epigastrium and right rib area Extremities: No edema in lower extremities bilaterally. Results & Data Results & Data Vital Signs (Past 12 Hours) Vital Signs Temp Pulse Pulse Resp BP Pulse Ox O2 Del Method 02/06/24 16:15 68 02/06/24 14:58 67 18 108/63 98 Nebulizer 02/06/24 14:53 69 18 92 Room Air 02/06/24 11:23 70 20 91 Nasal Cannula 02/06/24 10:50 36.9 C 68 16 102/63 93 Nasal Cannula 02/06/24 07:31 68 16 96 Nasal Cannula 02/06/24 07:30 63 02/06/24 07:30 Nasal Cannula 02/06/24 07:21 36.8 C 71 20 96/55 L 97 Nasal Cannula O2 Flow Rate 02/06/24 16:15 02/06/24 14:58 02/06/24 14:53 02/06/24 11:23 1 02/06/24 10:50 1 02/06/24 07:31 2 02/06/24 07:30 02/06/24 07:30 1 02/06/24 07:21 2 Diagnostic Findings Chest X-Ray 02/03/24 23:57 EXAM: XR chest 1V portable CLINICAL HISTORY: CHEST PAIN, SOB KFK TECHNIQUE: Radiograph of chest was acquired. COMPARISON: None. FINDINGS: Left total shoulder arthroplasty implant in situ. Fibrotic changes are noted in the left lower lung zone. The remaining lungs are clear and well-expanded with no pulmonary infiltrate or pleural effusion. The cardiomediastinal silhouette is within normal limits. No acute osseous abnormality. IMPRESSION: 1. Left total shoulder arthroplasty in situ. 2. Left lower lung zone fibrotic changes. 3. No acute abnormality. Electronically signed by Jean Claude Jiang 02-04-2024 01:28 AM Chest CTA 02/04/24 02:08 EXAM: CT angio chest PE protocol CLINICAL HISTORY: substernal chest apin starting on the left and going across the diaphragm that began at 1730. Pt reports cough, chills, and feeling unwell for the past week. Pt recently completed antibiotics and predinsone but does not feel it helped. Pt does take blood thinner 2x daily. He weres 2L O2 at night. 88 ml opti 320 PW/GS TECHNIQUE: Contiguous axial images were obtained from the neck base through the upper abdomen following intravenous administration of contrast material. If IV contrast material had not been administered, the likelihood of detecting abnormalities relevant to the patient's condition would have been substantially decreased. In addition, sagittal and coronal reconstructions were performed. CT scan was performed according to ALARA (as low as reasonable achievable). COMPARISON: None. FINDINGS: The lungs show few fibrotic bands in bilateral lower lobes and lingula. Mild centrilobular and paraseptal emphysema is noted in bilateral upper lobes. No focal areas of consolidation. No pulmonary nodules are seen. The central airways are patent. There are no pleural effusions. No pneumothorax is seen. No axillary, hilar, or mediastinal adenopathy is identified. The visualized thyroid is unremarkable. The heart, aorta, and pulmonary arteries are of normal size and configuration. No pericardial effusion is identified. Imaged portions of the upper abdomen are unremarkable. Degenerative changes are noted in the visualized spine. IMPRESSION: 1. No obvious pulmonary embolism. 2. Mild centrilobular and paraseptal emphysema in bilateral upper lobes. 3. Fibrotic bands in bilateral lower lobes and lingula. Electronically signed by Jean Claude Jiang 02-04-2024 04:30 AM Abdomen/Pelvis CT 02/04/24 07:16 CT abd pelvis IV con only CLINICAL HISTORY: abd pain, hypotension TECHNIQUE: Helical axial images of the abdomen and pelvis were obtained and displayed. Automated dose lowering techniques and/or adjustment according to patient size were utilized for this exam. This exam was performed with intravenous contrast. CT DOSE: 1375.26 mGy.cm COMPARISON: Comparison is made to CT abdomen pelvis 04/04/2023 FINDINGS: Lower chest: Peripheral interstitial thickening and bronchial wall thickening is seen. Liver: Unremarkable. No focal lesions are seen. Gallbladder and biliary tree: No calcified gallstones. Normal caliber wall. No intra- or extrahepatic biliary ductal dilation. Pancreas: Unremarkable, no focal lesions. Spleen: Unremarkable. Adrenals: Unremarkable. Kidneys and ureters: Perinephric stranding is noted bilaterally. Bladder: Unremarkable. Reproductive organs: Unremarkable. Bowel: The appendix is normal. Lymph nodes Retroperitoneal: Unremarkable. Pelvic: Unremarkable. Mesenteric: Unremarkable. Peritoneum: Normal. Vessels: Atherosclerotic calcifications are seen. These are most prominent in the left common iliac artery. Abdominal wall: Left fat containing inguinal hernia. Bones: Compression deformities of L2, L4, and L5 are stable. Left trochanteric nail is stable. IMPRESSION: No acute abnormality to explain abdominal pain and hypotension. ACT 112: Negative or not required by law. Electronically signed by: Florin Soto M.D. 02/04/2024 8:21 AM Chest X-Ray 02/04/24 17:10 INDICATION: Cough. TECHNIQUE: Frontal radiograph of the chest. COMPARISON: Radiograph from yesterday. FINDINGS: Cardiomegaly. Pulmonary vasculature appear within normal limits. Chronic appearing interstitial lung markings. No infiltrate, pleural effusion or pneumothorax. No acute osseous abnormality evident. IMPRESSION: No acute cardiopulmonary process. Electronically signed by Gaston Avila 02-04-2024 5:30 PM
--- NOTE | 2024-02-06 17:17 | Cardiology Progress Note ---
Date of Service February 06, 2024 Assessment & Plan (1) Acute exacerbation of chronic obstructive pulmonary disease (COPD): (2) Chest pain: Plan: Patient had been diagnosed with a right lower lobe segmental/subsegmental pulmonary embolism by CT angiogram on 12/08/2023. He had been noted to have a 20 beat run of nonsustained ventricular tachycardia during that admission. He has since been on Eliquis and his repeat CT angiogram performed this admission on 02/04/2024 revealed no residual pulmonary embolism findings were consistent with underlying emphysema and per my personal review of the images three-vessel coronary calcification noted. EKG performed today at 02/06/2024 and interpret independently revealed sinus rhythm at 83 bpm with sinus arrhythmia, no significant repolarization abnormality and was relatively unchanged compared to previous tracings performed during this hospital stay on 02/03/2024 02/04/2024 and 02/05/2024. Echocardiogram performed this admission 02/04/2024, images reviewed independently with normal biventricular wall motion and systolic function. The hypotension noted on initial presentation has resolved. Patient has had a mild elevation in troponin I however with initial presenting troponin this admission of 12.8 PG per mL and then increased to 31.6, 69.7, 72.4 PG per mL on 02/04/2024 before trending down to 54.2 pg/ml. Patient is still actively wheezing, and I feel that his symptoms are most consistent with ongoing COPD exacerbation with pleuritic pain associated with coughing however a mild troponin elevation does raise concerns for demand ischemia and based on his CT he certainly has some degree of coronary artery atherosclerosis. The patient is a poor candidate for noninvasive stress testing at present due to his pulmonary status. 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 He has been on high-dose atorvastatin 80 mg daily but this was apparently discontinued due to elevation in the liver function test and myalgias. Most recent AST was 60 units/L and ALT was 80 units/L on 02/06/2024 which are relatively stable compared to previous. I think would be reasonable to resume the atorvastatin at a low dose, perhaps 40 mg daily, and will discuss with hospitalist service tomorrow since this is my first encounter with the patient prior to making that change. Will continue to follow him clinically and for now we will continue empiric treatment for suspected underlying coronary heart disease with aspirin 81 mg daily and metoprolol tartrate 12.5 mg twice daily. Admission and Anticipated Discharge Date Admission Date: February 04, 2024 Subjective Patient seen in cardiology reassessment given subjective complaint of chest pain as per the request of Dr. Irwin of pulmonary medicine. Patient currently eating his evening meal. Spouse is at the bedside. He describes chest discomfort when he coughs. The discomfort is reproduced with coughing. He has ongoing wheezing. Telemetry reveals sinus rhythm in the 80s with rate in the range of 60-80 bpm with no significant arrhythmias. Physical Exam Constitutional: WD/WN, vitals as above well developed; no acute distress Neck: trachea midline, no thyromegaly Respiratory: no respiratory distress Auscultation: + diminished lung sounds and + wheezes Cardiovascular: Rate/Rhythm: regular rate and regular rhythm Heart Sounds: normal S1 and normal S2; no murmur Vessels: no JVD Extremities: no edema Gastrointestinal (Abdomen): normal bowel sounds, soft, nontender, no hepatosplenomegaly Neurologic: PERRL, EOMI, accommodation nl, no face palsy, no dysarthria Results & Data Vital Signs (Past 12 Hours) Vital Signs Temp Pulse Pulse Resp BP Pulse Ox O2 Del Method 02/06/24 16:15 68 02/06/24 14:58 67 18 108/63 98 Nebulizer 02/06/24 14:53 69 18 92 Room Air 02/06/24 11:23 70 20 91 Nasal Cannula 02/06/24 10:50 36.9 C 68 16 102/63 93 Nasal Cannula 02/06/24 07:31 68 16 96 Nasal Cannula 02/06/24 07:30 63 02/06/24 07:30 Nasal Cannula 02/06/24 07:21 36.8 C 71 20 96/55 L 97 Nasal Cannula O2 Flow Rate 02/06/24 16:15 02/06/24 14:58 02/06/24 14:53 02/06/24 11:23 1 02/06/24 10:50 1 02/06/24 07:31 2 02/06/24 07:30 02/06/24 07:30 1 02/06/24 07:21 2 Laboratory Results Cardiac Enzymes 02/05/24 02/06/24 02/06/24 Range/Units 19:01 06:07 16:09 AST 60 H (13-39) U/L Troponin I High Sens 54.2 H* D (0-20) pg/ml B-Natriuretic Peptide 68 (0-100) pg/ml Coagulation 02/06/24 Range/Units 16:09 B-Natriuretic Peptide 68 (0-100) pg/ml CBC 02/06/24 Range/Units 06:07 WBC 9.28 (4.8-10.8) K/ul RBC 4.51 L (4.70-6.10) M/uL Hgb 13.8 L (14.0-18.0) g/dl Hct 40.5 L (42.0-52.0) % Plt Count 265 (130-400) K/uL Neut # (Auto) 8.23 H (1.40-6.50) K/uL Lymph # (Auto) 0.43 L (1.20-3.40) K/uL [place] # (Auto) 0.56 (0.11-0.59) K/uL Eos # (Auto) 0.01 (0.00-0.50) K/uL Baso # (Auto) 0.01 (0.00-0.20) K/uL Comprehensive Metabolic Panel 02/06/24 Range/Units 06:07 Sodium 137 (136-145) mmol/L Potassium 5.4 H D (3.5-5.1) mmol/L Chloride 103 (98-107) mmol/L Carbon Dioxide 29 (21-32) mmol/L BUN 16 (6-23) mg/dl Creatinine 0.79 (0.6-1.4) mg/dl Glucose 107 H (70-99(Fasting)) mg/dl Calcium 9.5 (8.6-10.3) mg/dl AST 60 H (13-39) U/L ALT 81 H (7-52) U/L Alkaline Phosphatase 79 (34-104) U/L Total Protein 6.8 (6.0-8.3) gm/dl Albumin 3.6 (3.4-5.0) gm/dl Intake and Output 02/06/24 02/06/24 02/06/24 06:59 14:59 22:59 Intake Total 300 / 1419.584 580 / 580 Output Total 1275 / 2975 Balance -975 / -1555.416 580 / 580 Intake: IV 100 / 100 Doxycycline Hyclate 100 mg In 100 / 100 Dextrose 5% Mini-B 100 ml @ 50 mls/hr IV Q12H [facility] Rx#:[id number] Oral 300 / 1030 480 / 480 Output: Urine 1275 / 2975 Other: # Unmeasured Voids 1 Weight 90.2 kg Weight Measurement Method Built in [facility]
[2024-02-06] MEDS: BUDESONIDE 0.5 MG/2 ML VIAL (PULMICORT) NEB SCH (19:53)
[2024-02-06] MEDS: FORMOTEROL 20 MCG/2 ML VIAL NEB SCH (19:53)
[2024-02-06] MEDS: SODIUM CHLOR 7% 4 ML NEB NEB SCH (19:53)
[2024-02-06] MEDS: DOXYCYCLINE HYCLATE 100 MG CAP PO SCH (20:25)
[2024-02-06] MEDS: guaiFENesin/DEXTROM SYRUP 200MG/20MG 10ML UDC PO SCH (21:42)
[2024-02-06] MEDS: ALBUT/IPRATROP 3MG/0.5MG NEB 3 ML VIAL NEB SCH (23:34)
[2024-02-07 06:35] LABS: Basophils # (auto) 0.01 K/uL (0.00-0.20); Basophils % (auto) 0.2 %; Eosinophils # (auto) 0.02 K/uL (0.00-0.50); Eosinophils % (auto) 0.3 %; Hematocrit (blood only) 38.3 % (42.0-52.0); Hemoglobin 13.2 g/dl (14.0-18.0); Immature Granulocytes # (auto) 0.02 K/uL (0.01-0.20); Immature Granulocytes % (auto) 0.3 %; Lymphocytes # (auto) 1.39 K/uL (1.20-3.40); Lymphocytes % (auto) 23.4 %; Mean Corpuscular Hemoglobin 30.8 pg (25.0-34.0); Mean Corpuscular Hgb Conc 34.5 g/dL (32.0-36.0); Mean Corpuscular Volume 89.3 fL (80.0-100.0); Mean Platelet Volume 11.3 fL (9.4-12.4); Monocytes # (auto) 0.88 K/uL (0.11-0.59); Monocytes % (auto) 14.8 %; Neutrophils # (auto) 3.62 K/uL (1.40-6.50); Platelet Count 263 K/uL (130-400); RDW Coefficient of Variation 16.1 % (11.5-14.5); RDW Standard Deviation 52.4 fL (36.4-46.3); Red Blood Count 4.29 M/uL (4.70-6.10); White Blood Count 5.94 K/ul (4.8-10.8)
[2024-02-07 06:56] LABS: Potassium 4.3 mmol/L (3.5-5.1)
[2024-02-07 06:57] LABS: Albumin Globulin Ratio 1.2 (0.9-2); Albumin Level 3.3 gm/dl (3.4-5.0); BUN Creatinine Ratio 35.4 (10-20); Bilirubin,Total 0.3 mg/dl (0.2-1.0); Creatinine Clr Calc Pharmacy 88.2 ml/min; Globulin 2.8 gm/dl (2.5-4.0); Total Protein 6.1 gm/dl (6.0-8.3)
[2024-02-07] MEDS: methylPREDNISolone 40 MG in SYRINGE 0 ML IV SCH ×2 (08:05→20:06)
[2024-02-07] MEDS: UMECLIDINIUM BROMIDE 62.5MCG/BLISTER 7 PUFFS/INHALER INH SCH (08:05)
--- NOTE | 2024-02-07 08:50 | Pulmonology Progress Note ---
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): (5) Multiple pulmonary nodules: Plan CTA chest 02/04/2024 personally reviewed: Centrilobular and paraseptal emphysema appreciated bilaterally Linear atelectasis of the left upper lobe Increased reticular marking on the periphery bilateral lower lobes more on the right lower side No significant mediastinal lymphadenopathy 2D echo 02/04/2024: EF 55-60%, mild concentric LVH, RV normal in size and function PFT 07/06/2022 personally reviewed: Mild obstructive lung dysfunction, insignificant bronchodilator response, normal TLC with mild decrease in ERV, mild decrease in DLCO (Increased FVC by 440 mL, no significant change in FEV1, increased DLCO 53--> 68%, improved air trapping, no significant change in weight compared to 06/2018) FVC 4 L 106%, FEV1 2.23 L 80%, FEV1/FVC 56%, RV 126%, TLC 111%, RV/TLC 114%, DLCO 68%, DLCO/VA 66% -- COPD with emphysema and chronic bronchitis Gold class E Patient seem to have some increased reticular marking on the periphery, early CPFE is a possibility There is family history of autoimmune disease in daughter with rheumatoid arthritis Autoimmune workup 09/14/2022 was 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, negative for everything else Respiratory BioFire negative for everything on 02/04/24, nasal MRSA negative Procalcitonin 0.1 At home on Trelegy 200 on a daily basis along with as needed albuterol QTc 453 on 02/06/2024 For chronic bronchitis patient has been taking Mucinex along with Mucomyst nebulizer Absolute eosinophil count 430 on 04/07/2022 -- Multiple pulmonary nodules Largest being 3 mm left lower lobe Next screening CAT scan 01/2025 --History of pulmonary emboli Diagnosed 11/30 On Eliquis --TAYLOR Polysomnography 06/22/2023: 7 cm H2O CPAP pressure was recommended Patient did not get the CPAP machine as he had $ 240 due before he could get the machine. Continue with CPAP nightly and as needed shortness of breath while in the hospital -- Current smoker [id number] smoking history Importance of quitting expanded the patient in depth Denies any suicidal ideation, willing to try Chantix Plan: Continue with nebulizers Complete the course of doxycycline for 5 days Continue with Solu-Medrol 40 mg twice daily Continue with hypertonic saline and flutter valve to help with phlegm Mucinex-DM [id number]. If he still complains of significant cough then promethazine with codeine would be thought of Case discussed with RN Please note the above document was generated using voice recognition software. It may contain grammatical, syntax or spelling errors.Any formal questions or concerns about the content, text or information contained within the body of this dictation should be directly addressed to the provider for clarification. Admission and Anticipated Discharge Date Admission Date: February 04, 2024 Subjective Patient seen and examined at bedside. No acute distress, no dressings overnight He stated that he is the same to maybe minimal improvement when it comes to his cough Denies any significant issues with his breathing, no chest pain Has a chest discomfort when he coughs a lot. Did use his CPAP overnight Fair appetite, no nausea vomiting Review of Systems 2 Review of Systems: All systems reviewed & are unremarkable except as noted in Subjective Physical Exam 2 Physical Exam: Constitutional: No acute distress HEENT: EOMI, PERRLA Respiratory system: Decreased air entry bilaterally, no rhonchi, minimal end expiratory wheeze bilaterally, positive crackles bilateral lower lobes Velcro- like, more on the left side CVS: S1-S2 positive, no murmurs or gallops Abdomen: Soft, nontender, nondistended, positive bowel sounds x4 Extremities: +2 pulses bilaterally radialis/ dorsalis pedis, no cyanosis, +1 pitting edema bilateral lower extremity Neuro: Awake alert oriented x3 Psych: Normal mood and affect G/U: No Hernandez Skin: no rashes, warm and dry Lymphatic: no cervical or axillary lymphadenopathy Results & Data Results & Data Vital Signs (Past 12 Hours) Vital Signs Temp Pulse Pulse Pulse Resp BP Pulse Ox 02/07/24 07:44 36.5 C 68 19 126/78 91 02/07/24 07:35 62 02/07/24 07:35 02/07/24 06:57 78 16 99 02/07/24 03:55 36.4 C L 60 18 109/66 97 02/07/24 02:44 72 19 92 02/06/24 23:40 71 26 H 93 02/06/24 23:35 77 18 93 02/06/24 23:27 37.0 C 72 18 114/64 96 02/06/24 22:01 69 02/06/24 21:24 O2 Del Method O2 Flow Rate 02/07/24 07:44 Room Air 02/07/24 07:35 02/07/24 07:35 Room Air 02/07/24 06:57 CPAP 2 02/07/24 03:55 CPAP 02/07/24 02:44 2 02/06/24 23:40 2 02/06/24 23:35 Nasal Cannula 2 02/06/24 23:27 Nasal Cannula 02/06/24 22:01 02/06/24 21:24 Room Air, Nasal Cannula 2 Laboratory Results 02/07/24 05:28 02/07/24 05:28 PG Care Time/CCT Total # of Minutes Spent Total Time Spent with Patient: Total time spent is greater than 50% in coordination of care (as documented) at patient's floor/unit and/or counseling patient: Coding Level of Care Code 06185 SUB INP/OBS CARE 3/50MIN Diagnoses Pulmonary embolism I26.99 Acute cor pulmonale presence: without acute cor pulmonale Chronicity: acute Pulmonary embolism type: unspecified Chronic bronchitis J42 COPD with emphysema J43.9 Combined pulmonary fibrosis and emphysema (CPFE) J43.9; J84.10 Multiple pulmonary nodules R91.8
[2024-02-07] MEDS ORDERED: methylPREDNISolone 1000 MG/16 ML IV SCH (09:00)
--- NOTE | 2024-02-07 15:20 | Hospitalist Progress Note ---
Date of Service February 07, 2024 Assessment & Plan (1) Hypotension: Plan Pt is a 68-year-old male with past medical history significant for dyslipidemia, prediabetes, COPD, obstructive sleep apnea on oxygen nightly, chronic heart failure with preserved ejection fraction, GERD, obesity, history of septic arthritis, chronic pain syndrome, history of PE, depression presenting with lower chest pain and shortness of breath that started the evening before presentation. In the ER, he was also found to be hypotensive. Shortness of breath Acute hypoxic respiratory Failure COPD Exacerbation Has wheezing on exam likely in setting of an acute COPD exacerbation Chest XRAY unremarkable CTA chest noting no PE but mild emphysema Nebs [id number] and as needed Continue home inhalers IV steroids transitioned to po prednisone 40mg daily for 5 days Treated with antibiotics -IV zosyn has been discontinued, continue with po doxycycline Oxygen supplementation as needed PRN cough meds with mucinex scheduled and prn pain meds for associated rib pain with coughing pulmonology consulted, appreciate recs Improving, continue to monitor Hypotension BP in 80/40s on admission Persistent after 3 L of fluids in the ER. Systolic blood pressure in the 80s Less likely related to an acute infectious picture -Lactate normal, procal normal -UA unremarkable -Respiratory BioFire negative -Chest XRAY unremarkable -Chest CTA unremarkable -CT abd/pelvis unremarkable -Blood Cx x 2 sets NGTD Random cortisol level 16.9 Given doses of IV hydrocortisone to help with BP, improved. po prednisone on hold Was also on IV fluids, has since been discontinued Was on empiric abx as noted above BP currently improved at this time Chest pain V tach episodes Pt presented with chest pain Trop elevated at 31.6 to 69.7 to 70s before downtrending Echo noting EF 55-60%, RV normal function Cardiology consulted, appreciate recs. Recommended/stated the following: "BP improved with IV fluids. Hold Furosemide. Metoprolol held on admission. BP improving. Resume metoprolol tartrate 12.5 mg BID likely later or in AM Repeat echo is unremarkable. Stable LVEF. Continue Eliquis for history of PE. Supplement magnesium. Recheck later today History of non sustained VT, noted during last admission when diagnosed with PE. Resume metoprolol and replace mag No arrhythmias on monitor. No further cardiac testing warranted at this time." Held home furosemide Metoprolol tartrate resumed in early AM 02/04 after run of v tach noted continue Eliquis Continue to monitor on telemetry 02/05- Cardiology reconsulted, by pullaz. Appreciate further recs Obstructive sleep apnea Uses oxygen nightly Prediabetes Hgba1c of 6.2 Continue to monitor blood sugars Chronic heart failure with preserved ejection fraction Holding furosemide as noted above On IV fluids Monitor for volume overload Repeat chest XRAY ordered on 02/03 Recent PE On Eliquis CTA chest unremarkable Abdominal discomfort CT abdomen pelvis grossly unremarkable Lipase 18 Continue to monitor Hypomagnesemia Replete as needed Continue scheduled supplements- currently on hold as levels elevated Hyperphosphatemia Phos level elevated History of left elbow olecranon septic arthritis Was treated with 6-week course of IV abx History of diarrhea Will monitor Depression Generalized anxiety disorder On Lexapro Chronic pain syndrome Will hold his oxycodone and cyclobenzaprine for now GERD On Protonix Elevated liver enzymes Holding home statin Per cardiology, consider resuming at lower dose DVT prophylaxis: On Eliquis Diet: HH/DMII Dispo: PT/OT for further recs once medically stable Admission and Anticipated Discharge Date Admission Date: February 04, 2024 Subjective patient was seen in the a.m. Notes that he still has coughing fits and pain Notes no change to his symptoms Review of Systems Review of Systems: All systems reviewed & are unremarkable except as noted in Subjective Physical Exam Physical Exam: General: Alert, oriented. No acute distress Psych: Appropriate mood and affect Neuro: No gross deficits HEENT: NC/AT CV: RRR Resp: Breath sounds with scattered wheezing bilaterally, no increased effort of breathing Abdomen: Soft, tender in epigastrium and right rib area Extremities: No edema in lower extremities bilaterally. Results & Data Results & Data Vital Signs (Past 12 Hours) Vital Signs Temp Pulse Pulse Pulse Resp BP Pulse Ox 02/07/24 14:31 88 02/07/24 14:14 68 16 93 02/07/24 11:49 36.4 C L 66 20 116/69 91 02/07/24 07:44 36.5 C 68 19 126/78 91 02/07/24 07:35 62 02/07/24 07:35 02/07/24 06:57 78 16 99 02/07/24 03:55 36.4 C L 60 18 109/66 97 O2 Del Method O2 Flow Rate 02/07/24 14:31 02/07/24 14:14 Room Air 02/07/24 11:49 Room Air 02/07/24 07:44 Room Air 02/07/24 07:35 02/07/24 07:35 Room Air 02/07/24 06:57 CPAP 2 02/07/24 03:55 CPAP Diagnostic Findings Chest X-Ray 02/03/24 23:57 EXAM: XR chest 1V portable CLINICAL HISTORY: CHEST PAIN, SOB KFK TECHNIQUE: Radiograph of chest was acquired. COMPARISON: None. FINDINGS: Left total shoulder arthroplasty implant in situ. Fibrotic changes are noted in the left lower lung zone. The remaining lungs are clear and well-expanded with no pulmonary infiltrate or pleural effusion. The cardiomediastinal silhouette is within normal limits. No acute osseous abnormality. IMPRESSION: 1. Left total shoulder arthroplasty in situ. 2. Left lower lung zone fibrotic changes. 3. No acute abnormality. Electronically signed by Jean Claude Jiang 02-04-2024 01:28 AM Chest CTA 02/04/24 02:08 EXAM: CT angio chest PE protocol CLINICAL HISTORY: substernal chest apin starting on the left and going across the diaphragm that began at 1730. Pt reports cough, chills, and feeling unwell for the past week. Pt recently completed antibiotics and predinsone but does not feel it helped. Pt does take blood thinner 2x daily. He weres 2L O2 at night. 88 ml opti 320 PW/GS TECHNIQUE: Contiguous axial images were obtained from the neck base through the upper abdomen following intravenous administration of contrast material. If IV contrast material had not been administered, the likelihood of detecting abnormalities relevant to the patient's condition would have been substantially decreased. In addition, sagittal and coronal reconstructions were performed. CT scan was performed according to ALARA (as low as reasonable achievable). COMPARISON: None. FINDINGS: The lungs show few fibrotic bands in bilateral lower lobes and lingula. Mild centrilobular and paraseptal emphysema is noted in bilateral upper lobes. No focal areas of consolidation. No pulmonary nodules are seen. The central airways are patent. There are no pleural effusions. No pneumothorax is seen. No axillary, hilar, or mediastinal adenopathy is identified. The visualized thyroid is unremarkable. The heart, aorta, and pulmonary arteries are of normal size and configuration. No pericardial effusion is identified. Imaged portions of the upper abdomen are unremarkable. Degenerative changes are noted in the visualized spine. IMPRESSION: 1. No obvious pulmonary embolism. 2. Mild centrilobular and paraseptal emphysema in bilateral upper lobes. 3. Fibrotic bands in bilateral lower lobes and lingula. Electronically signed by Jean Claude Jiang 02-04-2024 04:30 AM Abdomen/Pelvis CT 02/04/24 07:16 CT abd pelvis IV con only CLINICAL HISTORY: abd pain, hypotension TECHNIQUE: Helical axial images of the abdomen and pelvis were obtained and displayed. Automated dose lowering techniques and/or adjustment according to patient size were utilized for this exam. This exam was performed with intravenous contrast. CT DOSE: 1375.26 mGy.cm COMPARISON: Comparison is made to CT abdomen pelvis 04/04/2023 FINDINGS: Lower chest: Peripheral interstitial thickening and bronchial wall thickening is seen. Liver: Unremarkable. No focal lesions are seen. Gallbladder and biliary tree: No calcified gallstones. Normal caliber wall. No intra- or extrahepatic biliary ductal dilation. Pancreas: Unremarkable, no focal lesions. Spleen: Unremarkable. Adrenals: Unremarkable. Kidneys and ureters: Perinephric stranding is noted bilaterally. Bladder: Unremarkable. Reproductive organs: Unremarkable. Bowel: The appendix is normal. Lymph nodes Retroperitoneal: Unremarkable. Pelvic: Unremarkable. Mesenteric: Unremarkable. Peritoneum: Normal. Vessels: Atherosclerotic calcifications are seen. These are most prominent in the left common iliac artery. Abdominal wall: Left fat containing inguinal hernia. Bones: Compression deformities of L2, L4, and L5 are stable. Left trochanteric nail is stable. IMPRESSION: No acute abnormality to explain abdominal pain and hypotension. ACT 112: Negative or not required by law. Electronically signed by: Florin Soto M.D. 02/04/2024 8:21 AM Chest X-Ray 02/04/24 17:10 INDICATION: Cough. TECHNIQUE: Frontal radiograph of the chest. COMPARISON: Radiograph from yesterday. FINDINGS: Cardiomegaly. Pulmonary vasculature appear within normal limits. Chronic appearing interstitial lung markings. No infiltrate, pleural effusion or pneumothorax. No acute osseous abnormality evident. IMPRESSION: No acute cardiopulmonary process. Electronically signed by Gaston Avila 02-04-2024 5:30 PM
--- NOTE | 2024-02-07 15:24 | Cardiology Progress Note ---
Date of Service February 07, 2024 Assessment & Plan (1) Acute exacerbation of chronic obstructive pulmonary disease (COPD): (2) Chest pain: Plan: Pulmonary input noted and appreciated with regards to treatment of his acute COPD exacerbation. Patient on IV Solu-Medrol 40 mg IV twice daily and doxycycline 100 mg p.o. twice daily. Continue metoprolol to tartrate 12.5 mg twice daily, aspirin 81 mg daily, Eliquis 5 mg twice daily (recent pulmonary embolism diagnosed in November). Patient with history of thrombus of the descending aorta. Has been on longstanding high-dose atorvastatin 80 mg daily which has been placed on hold given mildly elevated AST/ALT. Consider resuming atorvastatin at a lower dose, 40 mg daily. Admission and Anticipated Discharge Date Admission Date: February 04, 2024 Subjective Patient seen and examined. Notes that shortness of breath is not improved. Most recent pulse oximetry 93% on room air. Still with cough and pleuritic chest discomfort, but no symptoms suggestive angina. Telemetry reveals sinus rhythm in the 60s. Physical Exam Constitutional: WD/WN, vitals as above well developed; no acute distress Neck: trachea midline, no thyromegaly Respiratory: no respiratory distress Auscultation: + diminished lung sounds and + wheezes Cardiovascular: Rate/Rhythm: regular rate and regular rhythm Heart Sounds: normal S1 and normal S2; no murmur Vessels: no JVD Extremities: no edema Gastrointestinal (Abdomen): normal bowel sounds, soft, nontender, no hepatosplenomegaly Neurologic: PERRL, EOMI, accommodation nl, no face palsy, no dysarthria Results & Data Vital Signs (Past 12 Hours) Vital Signs Temp Pulse Pulse Pulse Resp BP Pulse Ox 02/07/24 14:31 88 02/07/24 14:14 68 16 93 02/07/24 11:49 36.4 C L 66 20 116/69 91 02/07/24 07:44 36.5 C 68 19 126/78 91 02/07/24 07:35 62 02/07/24 07:35 02/07/24 06:57 78 16 99 02/07/24 03:55 36.4 C L 60 18 109/66 97 O2 Del Method O2 Flow Rate 02/07/24 14:31 02/07/24 14:14 Room Air 02/07/24 11:49 Room Air 02/07/24 07:44 Room Air 02/07/24 07:35 02/07/24 07:35 Room Air 02/07/24 06:57 CPAP 2 02/07/24 03:55 CPAP
[2024-02-08 06:40] LABS: Basophils # (auto) 0.01 K/uL (0.00-0.20); Basophils % (auto) 0.1 %; Hematocrit (blood only) 39.9 % (42.0-52.0); Hemoglobin 13.9 g/dl (14.0-18.0); Immature Granulocytes # (auto) 0.02 K/uL (0.01-0.20); Immature Granulocytes % (auto) 0.3 %; Lymphocytes # (auto) 0.99 K/uL (1.20-3.40); Lymphocytes % (auto) 12.9 %; Mean Corpuscular Hgb Conc 34.8 g/dL (32.0-36.0); Mean Corpuscular Volume 89.1 fL (80.0-100.0); Monocytes # (auto) 0.55 K/uL (0.11-0.59); Monocytes % (auto) 7.2 %; Neutrophils # (auto) 6.08 K/uL (1.40-6.50); Neutrophils % (auto) 79.5 %; Platelet Count 276 K/uL (130-400); RDW Coefficient of Variation 15.9 % (11.5-14.5); RDW Standard Deviation 52.1 fL (36.4-46.3); Red Blood Count 4.48 M/uL (4.70-6.10); White Blood Count 7.65 K/ul (4.8-10.8)
[2024-02-08 07:03] LABS: Albumin Globulin Ratio 1.1 (0.9-2); Albumin Level 3.5 gm/dl (3.4-5.0); BUN Creatinine Ratio 36.3 (10-20); Bilirubin,Total 0.3 mg/dl (0.2-1.0); Calcium 9.4 mg/dl (8.6-10.3); Creatinine Clr Calc Pharmacy 78.9 ml/min; Globulin 3.1 gm/dl (2.5-4.0); Magnesium 1.9 mg/dl (1.7-2.4); Phosphorus 4.6 mg/dl (2.5-4.9); Potassium 4.7 mmol/L (3.5-5.1); Total Protein 6.6 gm/dl (6.0-8.3)
[2024-02-08 07:20] VITALS: BP 109/67; RESP 20; TEMP 97.5; O2SAT 98
--- NOTE | 2024-02-08 10:12 | Pulmonology Progress Note ---
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): (5) Multiple pulmonary nodules: Plan CTA chest 02/04/2024 personally reviewed: Centrilobular and paraseptal emphysema appreciated bilaterally Linear atelectasis of the left upper lobe Increased reticular marking on the periphery bilateral lower lobes more on the right lower side No significant mediastinal lymphadenopathy 2D echo 02/04/2024: EF 55-60%, mild concentric LVH, RV normal in size and function PFT 07/06/2022 personally reviewed: Mild obstructive lung dysfunction, insignificant bronchodilator response, normal TLC with mild decrease in ERV, mild decrease in DLCO (Increased FVC by 440 mL, no significant change in FEV1, increased DLCO 53--> 68%, improved air trapping, no significant change in weight compared to 06/2018) FVC 4 L 106%, FEV1 2.23 L 80%, FEV1/FVC 56%, RV 126%, TLC 111%, RV/TLC 114%, DLCO 68%, DLCO/VA 66% -- COPD with emphysema and chronic bronchitis Gold class E Patient seem to have some increased reticular marking on the periphery, early CPFE is a possibility There is family history of autoimmune disease in daughter with rheumatoid arthritis Autoimmune workup 09/14/2022 was 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, negative for everything else Respiratory BioFire negative for everything on 02/04/24, nasal MRSA negative Procalcitonin 0.1 At home on Trelegy 200 on a daily basis along with as needed albuterol QTc 453 on 02/06/2024 For chronic bronchitis patient has been taking Mucinex along with Mucomyst nebulizer Absolute eosinophil count 430 on 04/07/2022 -- Multiple pulmonary nodules Largest being 3 mm left lower lobe Next screening CAT scan 01/2025 --History of pulmonary emboli Diagnosed 11/30 On Eliquis --TAYLOR Polysomnography 06/22/2023: 7 cm H2O CPAP pressure was recommended Patient did not get the CPAP machine as he had $ 240 due before he could get the machine. Continue with CPAP nightly and as needed shortness of breath while in the hospital -- Current smoker [id number] smoking history Importance of quitting expanded the patient in depth Denies any suicidal ideation, willing to try Chantix Plan: Continue with nebulizers Complete the course of doxycycline for 5 days Continue with Solu-Medrol 40 mg twice daily. Starting tomorrow can transition to prednisone 40 mg for 3 days followed by 20 mg for 3 days Continue with hypertonic saline and flutter valve to help with phlegm Mucinex-DM [id number]. If he still complains of significant cough then promethazine with codeine would be thought of Case discussed with RN No further recommendation from pulmonary perspective, will sign off Please call directly with any questions Please note the above document was generated using voice recognition software. It may contain grammatical, syntax or spelling errors.Any formal questions or concerns about the content, text or information contained within the body of this dictation should be directly addressed to the provider for clarification. Admission and Anticipated Discharge Date Admission Date: February 04, 2024 Subjective Patient seen and examined at bedside. No acute distress, no adverse events overnight He stated that he is feeling better compared to yesterday Coughing has decreased in intensity and frequency Did use CPAP overnight Denied any chest pain today Fair appetite Review of Systems 2 Review of Systems: All systems reviewed & are unremarkable except as noted in Subjective Physical Exam 2 Physical Exam: Constitutional: No acute distress HEENT: EOMI, PERRLA Respiratory system: Decreased air entry bilaterally, no rhonchi, positive crackles bilateral lower lobes Velcro-like, more on the left side, minimal expiratory wheeze which went away on subsequent breaths CVS: S1-S2 positive, no murmurs or gallops Abdomen: Soft, nontender, nondistended, positive bowel sounds x4 Extremities: +2 pulses bilaterally radialis/ dorsalis pedis, no cyanosis, +1 pitting edema bilateral lower extremity Neuro: Awake alert oriented x3 Psych: Normal mood and affect G/U: No Hernandez Skin: no rashes, warm and dry Lymphatic: no cervical or axillary lymphadenopathy Results & Data Results & Data Vital Signs (Past 12 Hours) Vital Signs Temp Pulse Pulse Pulse Resp BP Pulse Ox 02/08/24 09:00 56 L 02/08/24 09:00 02/08/24 07:19 36.4 C L 59 L 20 109/67 98 02/08/24 07:14 61 18 95 02/08/24 04:05 70 18 96 02/08/24 02:56 36.6 C 56 L 18 108/64 94 02/07/24 23:38 65 18 95 02/07/24 23:34 60 18 97 02/07/24 22:28 36.7 C 67 16 104/56 L 93 O2 Del Method O2 Flow Rate 02/08/24 09:00 02/08/24 09:00 Nasal Cannula 2 02/08/24 07:19 Room Air 02/08/24 07:14 Nasal Cannula 2 02/08/24 04:05 2 02/08/24 02:56 CPAP 02/07/24 23:38 2 02/07/24 23:34 Room Air 02/07/24 22:28 Room Air Laboratory Results 02/08/24 06:05 02/08/24 06:05 PG Care Time/CCT Total # of Minutes Spent Total Time Spent with Patient: Total time spent is greater than 50% in coordination of care (as documented) at patient's floor/unit and/or counseling patient: Coding Level of Care Code 57886 SUB INP/OBS CARE 2/35MIN Diagnoses Pulmonary embolism I26.99 Acute cor pulmonale presence: without acute cor pulmonale Chronicity: acute Pulmonary embolism type: unspecified Chronic bronchitis J42 COPD with emphysema J43.9 Combined pulmonary fibrosis and emphysema (CPFE) J43.9; J84.10 Multiple pulmonary nodules R91.8
--- NOTE | 2024-02-08 14:05 | Hospitalist Progress Note ---
Date of Service February 08, 2024 Assessment & Plan (1) Hypotension: Plan Pt is a 68-year-old male with past medical history significant for dyslipidemia, prediabetes, COPD, obstructive sleep apnea on oxygen nightly, chronic heart failure with preserved ejection fraction, GERD, obesity, history of septic arthritis, chronic pain syndrome, history of PE, depression presenting with lower chest pain and shortness of breath that started the evening before presentation. In the ER, he was also found to be hypotensive. Shortness of breath Acute hypoxic respiratory Failure COPD Exacerbation Has wheezing on exam likely in setting of an acute COPD exacerbation Chest XRAY unremarkable CTA chest noting no PE but mild emphysema Nebs [id number] and as needed Continue home inhalers IV steroids transitioned to po prednisone 40mg daily for 5 days Treated with antibiotics -IV zosyn has been discontinued, continue with po doxycycline Oxygen supplementation as needed PRN cough meds with mucinex scheduled and prn pain meds for associated rib pain with coughing pulmonology consulted, appreciate recs Improving, continue to monitor Hypotension BP in 80/40s on admission Persistent after 3 L of fluids in the ER. Systolic blood pressure in the 80s Less likely related to an acute infectious picture -Lactate normal, procal normal -UA unremarkable -Respiratory BioFire negative -Chest XRAY unremarkable -Chest CTA unremarkable -CT abd/pelvis unremarkable -Blood Cx x 2 sets NGTD Random cortisol level 16.9 Given doses of IV hydrocortisone to help with BP, improved. po prednisone on hold Was also on IV fluids, has since been discontinued Was on empiric abx as noted above BP currently improved at this time Chest pain V tach episodes Pt presented with chest pain Trop elevated at 31.6 to 69.7 to 70s before downtrending Echo noting EF 55-60%, RV normal function Cardiology consulted, appreciate recs. Recommended/stated the following: "BP improved with IV fluids. Hold Furosemide. Metoprolol held on admission. BP improving. Resume metoprolol tartrate 12.5 mg BID likely later or in AM Repeat echo is unremarkable. Stable LVEF. Continue Eliquis for history of PE. Supplement magnesium. Recheck later today History of non sustained VT, noted during last admission when diagnosed with PE. Resume metoprolol and replace mag No arrhythmias on monitor. No further cardiac testing warranted at this time." Held home furosemide Metoprolol tartrate resumed in early AM 02/04 after run of v tach noted continue Eliquis Continue to monitor on telemetry 02/05- Cardiology reconsulted, by pulm. Appreciate further recs Obstructive sleep apnea Uses oxygen nightly Prediabetes Hgba1c of 6.2 Continue to monitor blood sugars Chronic heart failure with preserved ejection fraction Holding furosemide as noted above On IV fluids Monitor for volume overload Repeat chest XRAY ordered on 02/03 Recent PE On Eliquis CTA chest unremarkable Abdominal discomfort CT abdomen pelvis grossly unremarkable Lipase 18 Continue to monitor Hypomagnesemia Replete as needed Continue scheduled supplements- currently on hold as levels elevated Hyperphosphatemia Phos level elevated History of left elbow olecranon septic arthritis Was treated with 6-week course of IV abx History of diarrhea Will monitor Depression Generalized anxiety disorder On Lexapro Chronic pain syndrome Will hold his oxycodone and cyclobenzaprine for now GERD On Protonix Elevated liver enzymes Holding home statin Per cardiology, consider resuming at lower dose DVT prophylaxis: On Eliquis Diet: HH/DMII Dispo: PT/OT for further recs once medically stable Admission and Anticipated Discharge Date Admission Date: February 04, 2024 Physical Exam Physical Exam: General: Alert, oriented. No acute distress Psych: Appropriate mood and affect Neuro: No gross deficits HEENT: NC/AT CV: RRR Resp: Breath sounds with scattered wheezing bilaterally, no increased effort of breathing Abdomen: Soft, tender in epigastrium and right rib area Extremities: No edema in lower extremities bilaterally. Results & Data Results & Data Vital Signs (Past 12 Hours) Vital Signs Temp Pulse Pulse Pulse Resp BP Pulse Ox 02/08/24 09:00 56 L 02/08/24 09:00 02/08/24 07:19 36.4 C L 59 L 20 109/67 98 02/08/24 07:14 61 18 95 02/08/24 04:05 70 18 96 02/08/24 02:56 36.6 C 56 L 18 108/64 94 O2 Del Method O2 Flow Rate 02/08/24 09:00 02/08/24 09:00 Nasal Cannula 2 02/08/24 07:19 Room Air 02/08/24 07:14 Nasal Cannula 2 02/08/24 04:05 2 02/08/24 02:56 CPAP
--- NOTE | 2024-02-08 14:16 | Discharge Summary ---
Date of Service February 08, 2024 Admission HPI Per Admitting Provider 68-year-old male with past medical history significant for dyslipidemia, prediabetes, COPD, obstructive sleep apnea on oxygen nightly, chronic heart failure with preserved ejection fraction, GERD, obesity, history of septic arthritis, chronic pain syndrome, history of PE, depression, comes because of lower chest pain and shortness of breath since yesterday evening and in the ER he was also found to have hypotension. Chest pain comes and goes in the lower part of chest. He is also feeling short of breath. And also having abdominal discomfort. No fevers at home. Feeling dizzy. Denies headache. Vision is ok ay. No earache. Has runny nose and sore throat. Bowels are moving okay. Micturating okay. Patient was in the hospital first week of December 2023 with acute PE placed on Eliquis at that time also patient had 20 beats of V. tach with chest pain and found to have low magnesium. Patient followed up with cardiology on December 28, 2023 and plan for ischemic workup once recovered from PE and also discussed of increasing hydration and decreasing coffee intake as he drinks significant amount of coffee and cardiology also stopped his atorvastatin because of myalgias and elevated liver LFTs and to follow-up with repeat CMP in 2 weeks. As per he is drinking a lot of coffee. And lately he is eating very spicy food as per . Past medical history. As mentioned above Past surgical history. Colonoscopy. EGD. Reconstruction of left shoulder joint. Left thoracotomy wedge biopsy of upper lobe. Umbilical hernia repair. Right elbow surgery. Social history. . Smokes 0.5 pack a day for last 45 years. No alcohol history no drug use. Family history. Brother had leukemia. Mother had non-Hodgkin's lymphoma. Father had heart disorder. Brother had stroke. Admission Exam Per Admitting Provider General- Not in acute distress Head- atraumatic Eyes- PERRL. ENT- oropharynx clear Neck- supple, no JVD Lungs- clear to auscultation b/l wheezing heard, no cackles Heart- regular rate and rhythm; no murmur, no gallop. Abdomen- normal bowel sounds, soft, mild diffuse discomfort, no distension Extremities- no pretibial edema, no erythema seen Neuro- alert, oriented PERRL, no facial palsy; no dysarthria; moves extremities Principal Diagnosis Acute hypoxic respiratory failure COPD exacerbation Discharge Exam General: Alert, oriented. No acute distress Psych: Appropriate mood and affect Neuro: No gross deficits HEENT: NC/AT CV: RRR Resp: Bilateral clear breath sounds Abdomen: Soft, tender in epigastrium and right rib area Extremities: No edema in lower extremities bilaterally. Discharge Data Allergies Allergy/AdvReac Type Severity Reaction Status Date / Time No Known Allergies Allergy Verified 12/08/23 15:18 Consultations 02/04/24 06:09 ED Decision to Admit Stat 02/04/24 09:08 Consult Cardiology Routine 02/06/24 15:22 Consult Pulmonology Routine Ordered Studies 02/04/24 02:08 CT angio chest PE protocol Stat 02/04/24 07:16 CT Abd and Pelvis [CT abd pelvis IV con only] Stat Hospital Course (1) Hypotension: Plan Pt is a 68-year-old male with past medical history significant for dyslipidemia, prediabetes, COPD, obstructive sleep apnea on oxygen nightly, chronic heart failure with preserved ejection fraction, GERD, obesity, history of septic arthritis, chronic pain syndrome, history of PE, depression presenting with lower chest pain and shortness of breath that started the evening before presentation. Chest x-ray was done which did not show any acute finding CTA chest did not show PE; was positive for mild emphysema. Patient was treated for COPD exacerbation with [id number] DuoNeb, antibiotic and steroid with improvement in symptoms gradually. Neurology was consulted for comanagement. Patient also had episode of hypotension which improved with IV hydration. Repeat echo was unremarkable. Cardiology was consulted for comanagement; recommended to continue metoprolol. At the time of the discharge, patient was afebrile, normotensive and saturating well on room air. Patient was discharged home with instructions to follow-up with PCP. Please note the above document was generated using voice recognition software. It may contain grammatical, syntax or spelling errors. Any formal questions or concerns about the content, text or information contained within the body of this dictation should be directly addressed to the provider for clarification Total Time Total Time Spent Total Time Spent (In Minutes): 45 Total Time Includes: Examination of the Patient, Discharge Planning, Medication Reconciliation, Communication With Other Providers and Other Discharge Plan Discharge Items Patient Disposition: Home - Self-Care Reason For Visit: CHEST PAIN, SOB, HYPOTENSION Discharge Diagnosis: Acute hypoxic respiratory Failure COPD Exacerbation Activity: Resume your previous activity Non-emergency contact: Primary Care Provider Call non-emergency contact if: you have any medication questions and your symptoms worsen Follow-up/Referrals: Ajit Moreno MD [Primary Care Provider] - Diet: Regular Addtl Attending Provider Instructions: You were admitted to the hospital due to COPD flareup. You are prescribed doxycycline to be taken twice a day for 2 more days. You are prescribed prednisone 20 mg to be taken as follows; Take 40 mg (2 tablets) for 3 days Take 20 mg (1 tablet) for 3 days. An appointment with your primary care doctor will be made for you. Please follow-up with them. Pending Studies at Discharge: No Stand-Alone Forms: [id number], Smoking Cessation Medications and DC Order Prescriptions: New doxycycline hyclate 100 mg Capsule 100 mg PO Q12H 2 Days Qty: 4 0RF prednisone 20 mg tablet See Taper PO DAILY Qty: 9 0RF Taper: Taper, Blank 40 mg DAILY for 3 Days 20 mg DAILY for 3 Days Continued furosemide 40 mg tablet 40 mg PO DAILY aspirin 81 mg tablet,delayed release (DR/EC) 81 mg PO DAILY lorazepam 0.5 mg tablet 0.5 mg PO Q6H PRN (Reason: Agitation) pantoprazole 40 mg tablet,delayed release (DR/EC) 40 mg PO DAILY montelukast 10 mg tablet 10 mg PO DAILY levalbuterol HCl 1.25 mg/3 mL solution for nebulization 1.25 mg inhalation Q4H PRN (Reason: Shortness Of Breath Or Wheezing) albuterol sulfate 90 mcg/actuation HFA aerosol inhaler 2 puff INHALATION Q4H PRN (Reason: Shortness Of Breath Or Wheezing) escitalopram oxalate 10 mg tablet 10 mg PO DAILY cyclobenzaprine 5 mg tablet 5 mg PO TID PRN (Reason: muscle spasms) metoprolol tartrate 25 mg tablet 12.5 mg PO BID pregabalin 100 mg capsule 100 mg PO BID Eliquis 5 mg tablet 5 mg PO BID Trelegy Ellipta 200-62.5-25 mcg blister with device 1 inh INHALATION DAILY loperamide 2 mg Tablet 4 mg PO TID PRN (Reason: Diarrhea) cyanocobalamin (vitamin B-12) 1,000 mcg Tablet 1,000 mcg PO DAILY oxycodone 5 mg Tablet 5 mg PO Q6H PRN (Reason: Pain) magnesium chloride 64 mg Tablet,Delayed Release (Dr/Ec) 64 mg PO BID Discharge Orders: Discharge Order (Routine); Ordered 02/08/24 Ordered By: Enzo Hobson/Other Patient Handouts: Warning Signs of a Heart Attack Admission Data Admit Date/Time: 02/04/24 07:22 Attending Provider: Enzo Smith Admit Provider: Mannie Calderon Primary Care Provider: Ajit Moreno Other Providers: Mannie Calderon; Sylwia Loza; Florentin Sparrow; Venkat Jackson; Rafiq Weaver; Michael Carrillo; Regis Henning; Katrin Casey; Saray Almeida; Avis Paul; Sylwia Ferrer; Leandro Martinez; Quincy Rosenberg; Tamra Lazaro; Toyin Wisdom; Selin Bennett; Lakisha Tsang; Dinesh Hinojosa; Minoo Asif; Letty Cardoso; Elizabeth Irwin Other Interventions: Discharge Summary Assessment (RN) Last Done: 02/08/24 14:07
[2024-02-08 14:21] VITALS: PULSE 65
== END 2024-02-08 15:51 | disposition home or self-care (01) | DRG 190 ==
LOC: ED 23:49 → EDINP 02-04 07:22 → SUATTDRO 02-04 07:22 → 2S 02-04 09:10

== ENCOUNTER 2024-04-02 10:53 | Inpatient (IN) ==
[2024-04-02 11:23] LABS: Basophils # (auto) 0.06 K/uL (0.00-0.20); Basophils % (auto) 0.4 %; Eosinophils # (auto) 0.16 K/uL (0.00-0.50); Eosinophils % (auto) 1.2 %; Hematocrit (blood only) 45.5 % (42.0-52.0); Hemoglobin 15.3 g/dl (14.0-18.0); Immature Granulocytes # (auto) 0.04 K/uL (0.01-0.20); Immature Granulocytes % (auto) 0.3 %; Lymphocytes # (auto) 1.52 K/uL (1.20-3.40); Lymphocytes % (auto) 11.2 %; Mean Corpuscular Hemoglobin 30.2 pg (25.0-34.0); Mean Corpuscular Hgb Conc 33.6 g/dL (32.0-36.0); Mean Corpuscular Volume 89.9 fL (80.0-100.0); Mean Platelet Volume 11.1 fL (9.4-12.4); Monocytes # (auto) 1.21 K/uL (0.11-0.59); Monocytes % (auto) 8.9 %; Neutrophils # (auto) 10.57 K/uL (1.40-6.50); Platelet Count 311 K/uL (130-400); RDW Coefficient of Variation 16.1 % (11.5-14.5); RDW Standard Deviation 53.9 fL (36.4-46.3); Red Blood Count 5.06 M/uL (4.70-6.10); White Blood Count 13.56 K/ul (4.8-10.8)
[2024-04-02 11:42] LABS: Albumin Globulin Ratio 1.1 (0.9-2); Albumin Level 3.9 gm/dl (3.4-5.0); Bilirubin,Total 0.4 mg/dl (0.2-1.0); Calcium 9.8 mg/dl (8.6-10.3); Creatinine Clr Calc Pharmacy 97.5 ml/min; Globulin 3.5 gm/dl (2.5-4.0); Potassium 4.3 mmol/L (3.5-5.1); Total Protein 7.4 gm/dl (6.0-8.3)
[2024-04-02 11:48] LABS: Troponin I High Sensitivity 6.6 pg/ml (0-20)
[2024-04-02 11:50] LABS: Partial Thromboplastin Time 27 Seconds (21-31); Prothrombin Time 10.7 Seconds (9.0-12.0)
--- NOTE | 2024-04-02 12:04 | XRay Report ---
XR chest 1V not portable CLINICAL HISTORY: Chest pain, nonspecific COMPARISON STUDY: 05/17/2023 FINDINGS: Heart size and pulmonary vasculature are normal. Inspiration is shallow. There is interval faint reticular and patchy opacity lateral left lung base. No other consolidation or pleural effusion . No pneumothorax. IMPRESSION: Early pneumonia versus atelectasis lateral left lung base. ACT 112: Negative or not required by law. Electronically signed by: Higinio Mcdonald M.D. 04/02/2024 12:02 PM
[2024-04-02 12:08] LABS: Adenovirus PCR Not Detected (NotDetected); Bordetella parapertussis PCR Not Detected (NotDetected); Bordetella pertussis PCR Not Detected (NotDetected); Chlamydia pneumoniae PCR Not Detected (NotDetected); Coronavirus 229E PCR Not Detected (NotDetected); Coronavirus CoV-2 (COVID19)PCR Not Detected (NotDetected); Coronavirus HKU1 PCR Not Detected (NotDetected); Coronavirus NL63 PCR Not Detected (NotDetected); Coronavirus OC43PCR Not Detected (NotDetected); Human Metapneumovirus PCR Not Detected (NotDetected); Influenza A PCR Not Detected (NotDetected); Influenza B PCR Not Detected (NotDetected); Mycoplasma pneumoniae PCR Not Detected (NotDetected); Parainfluenza Virus 1 PCR Not Detected (NotDetected); Parainfluenza Virus 2 PCR Not Detected (NotDetected); Parainfluenza Virus 3 PCR Not Detected (NotDetected); Parainfluenza Virus 4 PCR Not Detected (NotDetected); Respiratory Syncytial VirusPCR Not Detected (NotDetected); Rhinovirus/Enterovirus PCR Not Detected (NotDetected)
[2024-04-02] MEDS: OPTIRAY 320 125ml IV ONE (13:31)
--- NOTE | 2024-04-02 13:50 | CT Scan Report ---
CT angio chest dissec wo/w con CLINICAL HISTORY: Chest/back pain, severe COMPARISON STUDY: 12/12/2023 FINDINGS: There is stable mild reticular and patchy groundglass opacity in the posterior lung bases. Stable mild emphysema. No new pulmonary consolidation or pleural effusion. No pneumothorax. No enlarg ed adenopathy. No pericardial effusion. There are diffuse coronary artery calcifications. No thoracic aortic dissection or aneurysm. No pulmonary embolism. No pericardial effusion. No acute osseous find ings. IMPRESSION: 1. No acute findings. 2. Stable mild lung base pulmonary opacities. ACT 112: Negative or not required by law. Electronically signed by: Higinio Mcdonald M.D. 04/02/2024 1:48 PM
--- NOTE | 2024-04-02 13:51 | Emergency Department Note ---
Impression & Plan Chest pain ED Provider Note NAME: ANGELES BURLESON AGE: 68 SEX: M : 1955 ARRIVES VIA: Walk-In INFORMANT: Patient, ED PROVIDER(S): Kaia Patel MD CHIEF COMPLAINT: Chest pain HPI: This is a 68-year-old male presenting for chest pain. Patient states that he had midsternal chest pain that started last night. Never had this pain before. Goes into his left jaw that radiates down into his chest readouts no shortness of breath which is worse than usual. He is usually short of breath and has wheezing due to smoking. He reports no blood thinner use. No A-fib. No nausea vomiting diarrhea. He notes pain is severe at this time. He goes into his back. ROS: See above HPI for pertinent positives & negatives. A total of 10 systems reviewed and were otherwise negative. PAST MEDICAL HISTORY: See Below PAST SURGICAL HISTORY: See Below FAMILY HISTORY: See Below SOCIAL HISTORY: See Below HOME MEDICATIONS: See Below ALLERGIES: See Below VITALS: See Below PHYSICAL EXAMINATION: General: resting comfortably in no acute distress Head: Normocephalic and atraumatic Eyes: Normal inspection, extraocular muscles intact Ear, nose, throat: Normal external exam Neck: Normal range of motion Respiratory: lungs clear to auscultation bilaterally Cardiovascular: Regular rate/rhythm, no murmur GI: soft, nontender, no guarding or rebound Extremities: nontender, moves all extremities Neuro: The patient awake and alert, appropriately conversive, no focal deficits, symmetric faces Skin: Warm, dry, and intact MEDICAL DECISION MAKING: This is a 68-year-old male presenting for chest/back pain. Patient does describe anterior chest pain which radiates into his back. Will have low concern for this, do consider dissection versus PE. He is not hypoxic or tachycardic making PE less likely. With dissection protocol. Otherwise high concern for ACS as patient has new onset midsternal chest pain going to the jaw and down his left arm. -Blood work reviewed the slightly leukocytosis to almost 14. Otherwise electrolytes within normal limits. Creatinine normal. Troponin negative x 2 -Chest x-ray reviewed as early pneumonia versus atelectasis in the lateral left lung base -CTA chest negative to rule out PE -Due to patient's current chest/neck pain, will admit to hospital service for further cardiac workup. Differential diagnosis: ACS, PE, dissection, pneumonia Independent History obtained from: none Diagnostics interpreted by me: ECG: ECG independently interpreted by me with normal sinus rhythm, rate of 81, normal axis, normal NH, normal QRS, normal QTc, no ST segment elevations consistent with STEMI criteria Cardiac Monitoring: An order was placed for continuous cardiac monitoring. The monitor shows a rate of 58 with sinus rhythm. Past Med/Surg History Problem List (Updated 04/03/24 @ 16:39 by Kaia Patel MD) Chest pain (Acute) Chronic pain syndrome Left shoulder pain Non-cardiac chest pain Combined pulmonary fibrosis and emphysema (CPFE) Hypotension (Acute) Acute exacerbation of chronic obstructive pulmonary disease (COPD) (Acute) SOB (shortness of breath) (Acute) Chest pain (Acute) Nonsustained ventricular tachycardia Right elbow pain Hypomagnesemia (Acute) COPD (chronic obstructive pulmonary disease) (Acute) Pulmonary embolism (Acute) Olecranon bursitis, right elbow Acute exacerbation of chronic obstructive pulmonary disease (COPD) (Acute) 10/09/23-10/11/23 admission Acute on chronic hypoxic respiratory failure (Acute) 10/09/23-10/11/23 admission COPD exacerbation Type 2 diabetes mellitus Septic arthritis of elbow, right Elevated LFTs Thrombus of aorta (Acute) Current smoker Chronic bronchitis COPD with emphysema Multiple pulmonary nodules Pulmonary nodule seen on imaging study Compression fracture of L5 vertebra Closed fracture of radial head (Acute) Closed compression fracture of lumbar vertebra (Acute) Nasal polyp Acquired deviated nasal septum (Acute) Arthritis (Acute) Cervical radiculopathy (Acute) Chronic post-thoracotomy pain (Acute) Chronic sinusitis (Acute) Hypertrophy of nasal turbinates (Acute) Obesity (Acute) Post-nasal drip Chronic - stable Tobacco abuse Viral upper respiratory illness hx HLD (hyperlipidemia) (Chronic) TAYLOR (obstructive sleep apnea) Cannot tolerate device Anxiety (Chronic) Neuropathy (Chronic) GERD (gastroesophageal reflux disease) (Chronic) Well controlled and stable Diaphragmatic hernia (Chronic) Thoracic spinal stenosis (Chronic) Hypertension (Chronic) Medical History Hyperglycemia Ha1c 6.2% 10/10/23 labs; no mention of DMII by PCP Cigarette smoker Obesity 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 Saw vascular: started on [id number] and Eliquis. Eliquis was then D/C by pulmonary 04/2023. Pt had normal f/u chest CTA 06/20/23 Irregular cardiac rhythm pt noted to have 25beats of Nonsustained VTach vs PAT day of discharge (08/09/23) [facility]; pt denied sx; started on metoprolol and ordered Zio monitor and Cardio referral Peripheral vascular disease Chronic diastolic heart failure PCP monitoring; ECHO 10/03/23 with nl EF and Gr I DD. 'no changes to medications needed at this time. Continue lasix daily' per PCP Chronic back pain "hx broken back"no back surgery Arthritis GERD (gastroesophageal reflux disease) Hx pulmonary embolism 2017 developed after a bad fall (was on coumadin for 1 year) Cardiac murmur no significant valve disease per 10/03/23 ECHO Hypertension Hyperlipidemia Chronic obstructive pulmonary disease 'group D' per pulm. Pt admitted [facility] for COPD exacerbation 10/08-10/11/23; admitted [facility] for COPD exacerbation (also had COVID at the time): 09/22- 09/25/23; admitted for COPD exacerbation 05/17-05/21/23 Asthma required rescue inhaler "just the other day" Chronic respiratory failure On oxygen at night in the past - but no longer needs per patient . Per 10/18/23 PCP note, 'pt stable from a respiratory standpoint' Hx of migraines Sleep apnea 2L O2 HS (no other device) History of COVID-19 Admitted [facility] 09/22-09/25/23 COVID+ and COPD exacerbation; pt states no longer having COVID sx Pneumothorax Hx- complication from pain injection- resolved Histoplasmosis 2002- treated Surgical History H/O hernia repair History of esophagogastroduodenoscopy (EGD) Hx of colonoscopy History of open reduction and internal fixation (ORIF) procedure right shoulder History of total replacement of left shoulder joint History of sinus surgery History of placement of chest tube History of hand surgery right/left Left femoral shaft fracture Dutch placed>hardware intact H/O total hip arthroplasty left H/O elbow surgery R radial head ORIF prior to 2009; R elbow I&D 08/05/23: GA: MAC#4, ETT#7.5HiLo, Gr View 1 H/O exploratory thoracotomy "Left thoracotomy wedge biopsy of left upper lobe with excision of lesion or nodule & frozen section 2002" H/O hernia repair [facility] incarcerated supraumbilical hernia repair open no mesh 02/17/01 Family History Father Heart disease Hypertension Brother Heart disease Cancer Hypertension Stroke Mother Cancer Other Leukemia No family history of adverse response to anesthesia No family history of bleeding disorder Non-Hodgkin lymphoma Denies family history of Hearing loss Asthma Social History Smoking Status: Current every day smoker Tobacco Type: Cigarettes Age Started Using Tobacco: 11; packs per day: 1; Cigarettes Per Day: 10 cig daily>advised; Second Hand Exposure: No; Do You Dip or Chew Tobacco: No; Hx Alcohol Use: No Hx Substance Use: No Preferred Language: Occitan Communication Ability: Effective 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 Beliefs That Will Affect Care: None marital status: Current Living Situation: Spouse current occupational status: unemployed Feels Safe at Home: Yes Assistive Devices: None Allergies Allergies Allergy/AdvReac Type Severity Reaction Status Date / Time No Known Allergies Allergy Verified 03/05/24 14:52 Home Meds Home Medications Medication Instructions Recorded Confirmed albuterol sulfate 90 mcg/actuation 2 puff inhalation Q4H PRN 02/04/24 04/02/24 aerosol inhaler Shortness Of Breath Or Wheezing apixaban 5 mg tablet (Eliquis) 5 mg PO BID 02/04/24 04/02/24 aspirin 81 mg tablet,delayed 81 mg PO DAILY 02/04/24 04/02/24 release cyanocobalamin (vitamin B-12) 1,000 mcg PO DAILY 02/04/24 04/02/24 1,000 mcg tablet escitalopram oxalate 10 mg tablet 10 mg PO DAILY 02/04/24 04/02/24 fluticasone fur. 200 mcg-umeclid 1 inh inhalation DAILY 02/04/24 04/02/24 62.5 mcg-vilant 25 mcg inhalat.powder (Trelegy Ellipta) furosemide 40 mg tablet 40 mg PO DAILY 02/04/24 04/02/24 levalbuterol HCl 1.25 mg/3 mL 1.25 mg inhalation Q4H PRN 02/04/24 04/02/24 solution for nebulization Shortness Of Breath Or Wheezing loperamide 2 mg tablet 4 mg PO TID PRN Diarrhea 02/04/24 04/02/24 lorazepam 0.5 mg tablet 0.5 mg PO Q6H PRN Agitation 02/04/24 04/02/24 magnesium chloride 64 mg 64 mg PO BID 02/04/24 04/02/24 (magnesium chloride) tablet,delayed release metoprolol tartrate 25 mg tablet 12.5 mg PO BID 02/04/24 04/02/24 montelukast 10 mg tablet 10 mg PO DAILY 02/04/24 04/02/24 pantoprazole 40 mg tablet,delayed 40 mg PO DAILY 02/04/24 04/02/24 release pregabalin 100 mg capsule 100 mg PO BID 02/04/24 04/02/24 Previous Rx's Medication Instructions Recorded diclofenac sodium 1 % topical gel 2 g topical QID shoulder pain #100 04/03/24 (Voltaren Arthritis Pain) grams oxycodone 5 mg tablet 5 mg PO BID PRN pain 7 days #14 04/03/24 tabs Results & Data (ED) Vital Signs Vital Signs - 24 hr 04/02/24 10:55 Temperature 36.3 C L Temperature Source Temporal Artery Scan Pulse Rate 80 Pulse Rhythm Regular Pulse Strength Normal Respiratory Rate 20 Respiratory Effort / Characteristics Non-Labored Spontaneous Respiratory Depth Normal Blood Pressure 137/86 Blood Pressure Mean 103 Pulse Oximetry 94 Oxygen Delivery Method Room Air Sepsis Recent Fever Within 48 Hours No Sepsis New/Unexplained Change in Mental Status N/A Sepsis Action Taken by Nursing No Action Required Laboratory Data 04/03/24 08:46 04/03/24 08:46 Lab Results 04/02/24 04/02/24 Range/Units 11:04 11:09 WBC 13.56 H (4.8-10.8) K/ul RBC 5.06 (4.70-6.10) M/uL Hgb 15.3 (14.0-18.0) g/dl Hct 45.5 (42.0-52.0) % MCV 89.9 (80.0-100.0) fL MCH 30.2 (25.0-34.0) pg MCHC 33.6 (32.0-36.0) g/dL RDW Std Deviation 53.9 H (36.4-46.3) fL RDW Coeff of Jaz 16.1 H (11.5-14.5) % Plt Count 311 (130-400) K/uL MPV 11.1 (9.4-12.4) fL Immature Gran % (Auto) 0.3 % Neut % (Auto) 78.0 % Lymph % (Auto) 11.2 % Bacon % (Auto) 8.9 % Eos % (Auto) 1.2 % Baso % (Auto) 0.4 % Neut # (Auto) 10.57 H (1.40-6.50) K/uL Lymph # (Auto) 1.52 (1.20-3.40) K/uL Bacon # (Auto) 1.21 H (0.11-0.59) K/uL Eos # (Auto) 0.16 (0.00-0.50) K/uL Baso # (Auto) 0.06 (0.00-0.20) K/uL Immature Gran # (Auto) 0.04 (0.01-0.20) K/uL PT 10.7 (9.0-12.0) Seconds INR 1.0 (0.9-1.1) APTT 27 (21-31) Seconds PTT Ratio 1.0 Sodium 138 (136-145) mmol/L Potassium 4.3 (3.5-5.1) mmol/L Chloride 102 (98-107) mmol/L Carbon Dioxide 29 (21-32) mmol/L Anion Gap 7 (3-11) BUN 15 (6-23) mg/dl Creatinine 0.75 (0.6-1.4) mg/dl Est Cr Clr Drug Dosing 97.5 ml/min eGFR 97.08 BUN/Creatinine Ratio 20.0 (10-20) Glucose 111 H (70-99(Fasting)) mg/dl Calcium 9.8 (8.6-10.3) mg/dl Total Bilirubin 0.4 (0.2-1.0) mg/dl AST 76 H (13-39) U/L ALT 88 H (7-52) U/L Alkaline Phosphatase 118 H (34-104) U/L Troponin I High Sens 6.6 (0-20) pg/ml Total Protein 7.4 (6.0-8.3) gm/dl Albumin 3.9 (3.4-5.0) gm/dl Globulin 3.5 (2.5-4.0) gm/dl Albumin/Globulin Ratio 1.1 (0.9-2) Procalcitonin 0.04 (0-0.5) ng/ml Adenovirus (PCR) Not Detected (NotDetected) B. pertussis DNA (PCR) Not Detected (NotDetected) B.parapertussis DNA PCR Not Detected (NotDetected) C. pneumoniae DNA (PCR) Not Detected (NotDetected) Coronavirus OC43 (PCR) Not Detected (NotDetected) Coronavirus HKU1 (PCR) Not Detected (NotDetected) Coronavirus 229E (PCR) Not Detected (NotDetected) SARS-CoV-2 (PCR) Not Detected (NotDetected) Coronavirus NL63 (PCR) Not Detected (NotDetected) Human Metapneumovir PCR Not Detected (NotDetected) Influenza Type A (PCR) Not Detected (NotDetected) Influenza Type B (PCR) Not Detected (NotDetected) M. pneumoniae (PCR) Not Detected (NotDetected) Parainfluenza 1 (PCR) Not Detected (NotDetected) Parainfluenza 2 (PCR) Not Detected (NotDetected) Parainfluenza 3 (PCR) Not Detected (NotDetected) Parainfluenza 4 (PCR) Not Detected (NotDetected) RSV (PCR) Not Detected (NotDetected) Entero/Rhino (PCR) Not Detected (NotDetected) Administered Medications Acetaminophen (Acetaminophen 325 Mg Tab) 650 mg PO Q4H PRN PRN Reason: Pain or Fever Stop: 05/02/24 14:14 Last Admin: 04/02/24 18:39 Dose: 650 mg Documented By: EVER Apixaban (Apixaban 5 Mg Tablet) 5 mg PO BID [facility] Stop: 05/02/24 20:59 Last Admin: 04/03/24 07:44 Dose: 5 mg Documented By: Admin: 04/02/24 21:33 Dose: 5 mg Documented By: TANVIR Aspirin (Aspirin 81 Mg Ectab) 81 mg PO DAILY [facility] Stop: 05/03/24 08:59 Last Admin: 04/03/24 09:30 Dose: 81 mg Documented By: EVER Baclofen (Baclofen 10 Mg Tab) 10 mg PO TID [facility] Stop: 05/02/24 15:24 Last Admin: 04/03/24 14:47 Dose: 10 mg Documented By: Admin: 04/03/24 07:41 Dose: 10 mg Documented By: Admin: 04/02/24 22:30 Dose: 10 mg Documented By: Admin: 04/02/24 17:09 Dose: 10 mg Documented By: Celecoxib (Celecoxib 100 Mg Cap) 100 mg PO BID YUN Stop: 05/02/24 15:24 Last Admin: 04/03/24 07:44 Dose: 100 mg Documented By: Admin: 04/03/24 00:01 Dose: Not Given Documented By: Admin: 04/02/24 21:32 Dose: 100 mg Documented By: TANVIR Cyanocobalamin (Cyanocobalamin (B-12) 500 Mcg Tablet) 1,000 mcg PO DAILY YUN Stop: 05/03/24 08:59 Last Admin: 04/03/24 07:44 Dose: 1,000 mcg Documented By: EVER Escitalopram Oxalate (Escitalopram Oxalate 10 Mg Tab) 10 mg PO DAILY [facility] Stop: 05/03/24 08:59 Last Admin: 04/03/24 09:30 Dose: 10 mg Documented By: EVER Fluticasone Furoate (Fluticasone Furoate 200mcg 14 Puffs/Inhaler) 1 puffs INH DAILY [facility]UN Stop: 05/03/24 08:59 Last Admin: 04/03/24 07:45 Dose: 1 puffs Documented By: EVER Furosemide (Furosemide 40 Mg Tab) 40 mg PO DAILY [facility]UN Stop: 05/03/24 08:59 Last Admin: 04/03/24 09:30 Dose: 40 mg Documented By: EVER Lorazepam (Lorazepam 0.5 Mg Tab) 0.5 mg PO Q6H PRN PRN Reason: Agitation Stop: 05/02/24 14:44 Last Admin: 04/02/24 18:40 Dose: 0.5 mg Documented By: EVER Metoprolol Tartrate (Metoprolol Tartrate 25 Mg Tab) 12.5 mg PO BID [facility] Stop: 05/02/24 20:59 Last Admin: 04/03/24 07:41 Dose: 12.5 mg Documented By: Admin: 04/02/24 22:30 Dose: 12.5 mg Documented By: TANVIR Montelukast Sodium (Montelukast Sodium 10 Mg Tablet) 10 mg PO DAILY YUN Stop: 05/03/24 08:59 Last Admin: 04/03/24 09:30 Dose: 10 mg Documented By: EVER Pantoprazole Sodium (Pantoprazole 40 Mg Tab) 40 mg PO DAILY YUN Stop: 05/03/24 08:59 Last Admin: 04/03/24 09:30 Dose: 40 mg Documented By: EVER Pregabalin (Pregabalin 100 Mg Cap) 100 mg PO BID YUN Stop: 05/02/24 20:59 Last Admin: 04/03/24 07:47 Dose: 100 mg Documented By: Admin: 04/02/24 21:33 Dose: 100 mg Documented By: TANVIR Umeclidinium/Vilanterol (Umeclidinium/Vilanterol 62.5/25mcg 7 Puffs/Inhaler) 1 puffs INH DAILY YUN Stop: 05/03/24 08:59 Last Admin: 04/03/24 07:48 Dose: 1 puffs Documented By: EVER Discontinued Medications Aspirin (Aspirin Chew 324 Mg) 324 mg PO NOW STA Stop: 04/02/24 13:52 Last Admin: 04/02/24 14:14 Dose: 324 mg Documented By: KELLY Ioversol (Optiray 320 125ml) 112 ml IV ONCE ONE Stop: 04/02/24 13:32 Last Admin: 04/02/24 13:31 Dose: 112 ml Documented By: DWAYNE Ioversol (Optiray 320 100ml) 94 ml IV ONCE ONE Stop: 04/03/24 13:21 Last Admin: 04/03/24 13:20 Dose: 94 ml Documented By: DWAYNE Ketorolac Tromethamine (Ketorolac Tromethamine 15 Mg/Ml Vial) 15 mg IV NOW ONE Stop: 04/02/24 13:48 Last Admin: 04/02/24 14:15 Dose: 15 mg Documented By: KELLY Morphine Sulfate (Morphine Sulfate 2 Mg/Ml Carp) 1 mg IV NOW STA Stop: 04/02/24 14:48 Last Admin: 04/02/24 14:54 Dose: 1 mg Documented By: KELLY Imaging Data Radiologist's Impression: Chest X-Ray 04/02/24 10:58 XR chest 1V not portable CLINICAL HISTORY: Chest pain, nonspecific COMPARISON STUDY: 05/17/2023 FINDINGS: Heart size and pulmonary vasculature are normal. Inspiration is shallow. There is interval faint reticular and patchy opacity lateral left lung base. No other consolidation or pleural effusion. No pneumothorax. IMPRESSION: Early pneumonia versus atelectasis lateral left lung base. ACT 112: Negative or not required by law. Electronically signed by: Higinio Mcdonald M.D. 04/02/2024 12:02 PM Discharge Plan Visit Data Chief Complaint: Chest Pain Stated Complaint: LT SHOULDER, CHEST PAIN, HURTS TO BREATH ED Provider: Kaia Patel Discharge Problem: Chest pain Patient Disposition: Admitted As Inpatient Discharge Instructions Interventions: ED Discharge Assessment Last Done: 04/02/24 15:55
[2024-04-02] MEDS: ASPIRIN CHEW 324 MG PO STA (14:14)
[2024-04-02] MEDS: KETOROLAC TROMETHAMINE 15 MG/ML VIAL IV ONE (14:15)
--- NOTE | 2024-04-02 14:34 | History & Physical Report ---
<Statement entered by Manny Rothman DO - 04/02/24 17:19> I have seen and examined the patient and have discussed the case with the advance practice provider. I have reviewed the advanced practitioner's documentation, and I agree with, and take responsibility for that plan of care. Patient evaluated while still in the ED. Still complaining of neck pain radiating to his chest. Musculoskeletal: No significant chest tenderness to palpation along the sternal borders of his chest. Significant pain to palpation of the left paravertebral cervical spine musculature and trapezius muscle radiating across to the shoulder and anteriorly along the anterior neck muscles. This causes significant spasm of these muscles and pain. Patient reports this is the exact pain that he presented to the emergency room with. Highly suspect patient's chest pain is actually due to somatic dysfunction of the cervical spine and musculoskeletal pain of the paravertebral musculature of the cervical spine and trapezius muscle. Lower suspicion for this to be acute coronary syndrome. Extensive review of EMR and outside EMR. Appears as though patient was to undergo an outpatient cardiac ischemic evaluation once he has stabilized from a diagnosis of pulmonary embolism. It was to occur either this month or next month. However has not yet had cardiology outpatient follow-up. Agree with involving cardiology this hospitalization to help coordinate either in hospital or outpatient cardiac ischemic eval Further plan of care as outlined below I spent a total of 19 minutes coordinating, documenting, and providing care for this patient excluding time spent by another provider/[facility]. 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 after midnight for stress test, cardiology consult Celebrex/baclofen ordered for pain control Hx PE - November 2023: Continue Eliquis Hx COPD: Hx TAYLOR on 2 L O2 at bedtime Managed on Trelegy and montelukast Nebulizers as needed Hx CHF with preserved EF: Continue metoprolol/Lasix, check BNP Hx GERD: Continue Protonix A total of 60 minutes was spent on chart review/facilitating plan of care/reviewing diagnostic data/discussion with consultants Full code DVT prophylaxis: Eliqulamin History of Present Illness Chief Complaint: Chest pain Primary Care Provider: Ajit Moreno MD The patient is a 68-year-old male with a past medical history of HLDwith statin intolerance, prediabetes, COPD, TAYLOR on oxygen at at bedtime, CHF with preserved EF, GERD, obesity, chronic pain syndrome, PEOctober 2023, depression who presents to the ED on 04/02/2024 with complaints of chest pain started last night. He reports the chest pain woke him up from sleep last night at 1 AM and is sharp. Reports chest pain radiates to the left side of his neck and jaw and is severe. Patient was given Toradol in the ER with no relief. He reports some associated shortness of breath but reports that this feels different than his normal COPD exacerbations. Reports some intermittent wheezing. Also reports some right hand pain and redness that started this morning. Denies any recent falls or injuries. Reports the chest pain worsens with exertion. Denies any sick contacts or recent travel. On arrival to the ED, labs remarkable for WBC 13.5, AST 76, ALT 88 No acute EKG changes, troponin 6.6 initially BioFire is negative Chest x-ray shows early pneumonia versus atelectasis Chest CTA shows no acute findings with stable mild lung base pulmonary opacities The patient will be admitted for pain control and rule out ACS He was given aspirin and Toradol/morphine in the ED Allergies Allergy/AdvReac Type Severity Reaction Status Date / Time No Known Allergies Allergy Verified 03/05/24 14:52 Home Medications Medication Instructions Recorded Confirmed Type albuterol sulfate 90 mcg/actuation 2 puff inhalation Q4H PRN 02/04/24 04/02/24 History aerosol inhaler Shortness Of Breath Or Wheezing apixaban 5 mg tablet (Eliquis) 5 mg PO BID 02/04/24 04/02/24 History aspirin 81 mg tablet,delayed 81 mg PO DAILY 02/04/24 04/02/24 History release cyanocobalamin (vitamin B-12) 1,000 mcg PO DAILY 02/04/24 04/02/24 History 1,000 mcg tablet escitalopram oxalate 10 mg tablet 10 mg PO DAILY 02/04/24 04/02/24 History fluticasone fur. 200 mcg-umeclid 1 inh inhalation DAILY 02/04/24 04/02/24 History 62.5 mcg-vilant 25 mcg inhalat.powder (Trelegy Ellipta) furosemide 40 mg tablet 40 mg PO DAILY 02/04/24 04/02/24 History levalbuterol HCl 1.25 mg/3 mL 1.25 mg inhalation Q4H PRN 02/04/24 04/02/24 History solution for nebulization Shortness Of Breath Or Wheezing loperamide 2 mg tablet 4 mg PO TID PRN Diarrhea 02/04/24 04/02/24 History lorazepam 0.5 mg tablet 0.5 mg PO Q6H PRN Agitation 02/04/24 04/02/24 History magnesium chloride 64 mg 64 mg PO BID 02/04/24 04/02/24 History (magnesium chloride) tablet,delayed release metoprolol tartrate 25 mg tablet 12.5 mg PO BID 02/04/24 04/02/24 History montelukast 10 mg tablet 10 mg PO DAILY 02/04/24 04/02/24 History pantoprazole 40 mg tablet,delayed 40 mg PO DAILY 02/04/24 04/02/24 History release pregabalin 100 mg capsule 100 mg PO BID 02/04/24 04/02/24 History Past Med/Surg History Problem List (Updated 02/06/24 @ 16:29 by Eilzabeth Irwin MD, [facility]) Combined pulmonary fibrosis and emphysema (CPFE) Hypotension (Acute) Acute exacerbation of chronic obstructive pulmonary disease (COPD) (Acute) SOB (shortness of breath) (Acute) Chest pain (Acute) Nonsustained ventricular tachycardia Right elbow pain Hypomagnesemia (Acute) COPD (chronic obstructive pulmonary disease) (Acute) Pulmonary embolism (Acute) Olecranon bursitis, right elbow Acute exacerbation of chronic obstructive pulmonary disease (COPD) (Acute) 10/09/23-10/11/23 admission Acute on chronic hypoxic respiratory failure (Acute) 10/09/23-10/11/23 admission COPD exacerbation Type 2 diabetes mellitus Septic arthritis of elbow, right Elevated LFTs Thrombus of aorta (Acute) Current smoker Chronic bronchitis COPD with emphysema Multiple pulmonary nodules Pulmonary nodule seen on imaging study Compression fracture of L5 vertebra Closed fracture of radial head (Acute) Closed compression fracture of lumbar vertebra (Acute) Nasal polyp Acquired deviated nasal septum (Acute) Arthritis (Acute) Cervical radiculopathy (Acute) Chronic post-thoracotomy pain (Acute) Chronic sinusitis (Acute) Hypertrophy of nasal turbinates (Acute) Obesity (Acute) Post-nasal drip Chronic - stable Tobacco abuse Viral upper respiratory illness hx HLD (hyperlipidemia) (Chronic) TAYLOR (obstructive sleep apnea) Cannot tolerate device Anxiety (Chronic) Neuropathy (Chronic) GERD (gastroesophageal reflux disease) (Chronic) Well controlled and stable Diaphragmatic hernia (Chronic) Thoracic spinal stenosis (Chronic) Hypertension (Chronic) Medical History Hyperglycemia Ha1c 6.2% 10/10/23 labs; no mention of DMII by PCP Cigarette smoker Obesity 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 Saw vascular: started on [id number] and Eliquis. Eliquis was then D/C by pulmonary 04/2023. Pt had normal f/u chest CTA 06/20/23 Irregular cardiac rhythm pt noted to have 25beats of Nonsustained VTach vs PAT day of discharge (08/09/23) [facility]; pt denied sx; started on metoprolol and ordered Zio monitor and Cardio referral Peripheral vascular disease Chronic diastolic heart failure PCP monitoring; ECHO 10/03/23 with nl EF and Gr I DD. 'no changes to me dications needed at this time. Continue lasix daily' per PCP Chronic back pain "hx broken back"no back surgery Arthritis GERD (gastroesophageal reflux disease) Hx pulmonary embolism 2017 developed after a bad fall (was on coumadin for 1 year) Cardiac murmur no significant valve disease per 10/03/23 ECHO Hypertension Hyperlipidemia Chronic obstructive pulmonary disease 'group D' per pulm. Pt admitted [facility] for COPD exacerbation 10/08-10/11/23; admitted [facility] for COPD exacerbation (also had COVID at the time): 09/22- 09/25/23; admitted for COPD exacerbation 05/17-05/21/23 Asthma required rescue inhaler "just the other day" Chronic respiratory failure On oxygen at night in the past - but no longer needs per patient . Per 10/18/23 PCP note, 'pt stable from a respiratory standpoint' Hx of migraines Sleep apnea 2L O2 HS (no other device) History of COVID-19 Admitted [facility] 09/22-09/25/23 COVID+ and COPD exacerbation; pt states no longer having COVID sx Pneumothorax Hx- complication from pain injection- resolved Histoplasmosis 2003- treated Surgical History H/O hernia repair History of esophagogastroduodenoscopy (EGD) Hx of colonoscopy History of open reduction and internal fixation (ORIF) procedure right shoulder History of total replacement of left shoulder joint History of sinus surgery History of placement of chest tube History of hand surgery right/left Left femoral shaft fracture Dutch placed>hardware intact H/O total hip arthroplasty left H/O elbow surgery R radial head ORIF prior to 2009; R elbow I&D 08/05/23: GA: MAC#4, ETT#7.5HiLo, Gr View 1 H/O exploratory thoracotomy "Left thoracotomy wedge biopsy of left upper lobe with excision of lesion or nodule & frozen section 2002" H/O hernia repair [facility] incarcerated supraumbilical hernia repair open no mesh 02/17/01 Family History Father Heart disease Hypertension Brother Heart disease Cancer Hypertension Stroke Mother Cancer Other Leukemia No family history of adverse response to anesthesia No family history of bleeding disorder Non-Hodgkin lymphoma Denies family history of Hearing loss Asthma Social History Smoking Status: Current every day smoker Tobacco Type: Cigarettes Age Started Using Tobacco: 11; packs per day: 1; Cigarettes Per Day: 10 cig daily>advised; Second Hand Exposure: No; Do You Dip or Chew Tobacco: No; Hx Alcohol Use: No Hx Substance Use: No Preferred Language: Fijian Communication Ability: Effective Manager Gift Required: No Beliefs That Will Affect Care: None marital status: Current Living Situation: Spouse current occupational status: unemployed Feels Safe at Home: Yes Assistive Devices: Oxygen - at Night Review of Systems Review of Systems: All systems reviewed & are unremarkable except as noted in HPI & below Physical Exam Constitutional: WD/WN, vitals as above + ill appearing; no acute distress Eyes: PERRL, conjunctivae normal, anicteric sclerae ENMT: external ear and nose normal, oropharynx normal Neck: trachea midline, no thyromegaly Respiratory: normal respiratory effort, lungs clear to auscultation (Expiratory wheezing noted all fuller) Cardiovascular: RRR, no murmur, no edema Gastrointestinal (Abdomen): normal bowel sounds, soft, nontender, no hepatosplenomegaly Musculoskeletal: no cyanosis or clubbing, extremities motor strength 5/5 Skin: no rashes, warm and dry Neurologic: PERRL, EOMI, accommodation nl, no face palsy, no dysarthria Lymphatic: no cervical or axillary lymphadenopathy Results & Data Results & Data Vital Signs (Past 12 Hours) Vital Signs Temp Pulse Pulse Resp BP BP Pulse Ox 04/02/24 14:09 72 04/02/24 14:07 72 18 129/80 94 04/02/24 10:55 36.3 C L 80 20 137/86 94 O2 Del Method 04/02/24 14:09 04/02/24 14:07 Room Air 04/02/24 10:55 Room Air Diagnostic Findings Laboratory Results WBC 13.56 K/ul (4.8-10.8) H 04/02/24 11:04 RBC 5.06 M/uL (4.70-6.10) 04/02/24 11:04 Hgb 15.3 g/dl (14.0-18.0) 04/02/24 11:04 Hct 45.5 % (42.0-52.0) 04/02/24 11:04 MCV 89.9 fL (80.0-100.0) 04/02/24 11:04 MCH 30.2 pg (25.0-34.0) 04/02/24 11:04 MCHC 33.6 g/dL (32.0-36.0) 04/02/24 11:04 RDW Std Deviation 53.9 fL (36.4-46.3) H 04/02/24 11:04 RDW Coeff of Jaz 16.1 % (11.5-14.5) H 04/02/24 11:04 Plt Count 311 K/uL (130-400) 04/02/24 11:04 MPV 11.1 fL (9.4-12.4) 04/02/24 11:04 Immature Gran % (Auto) 0.3 % 04/02/24 11:04 Neut % (Auto) 78.0 % 04/02/24 11:04 Lymph % (Auto) 11.2 % 04/02/24 11:04 Thurston % (Auto) 8.9 % 04/02/24 11:04 Eos % (Auto) 1.2 % 04/02/24 11:04 Baso % (Auto) 0.4 % 04/02/24 11:04 Neut # (Auto) 10.57 K/uL (1.40-6.50) H 04/02/24 11:04 Lymph # (Auto) 1.52 K/uL (1.20-3.40) 04/02/24 11:04 Thurston # (Auto) 1.21 K/uL (0.11-0.59) H 04/02/24 11:04 Eos # (Auto) 0.16 K/uL (0.00-0.50) 04/02/24 11:04 Baso # (Auto) 0.06 K/uL (0.00-0.20) 04/02/24 11:04 Immature Gran # (Auto) 0.04 K/uL (0.01-0.20) 04/02/24 11:04 PT 10.7 Seconds (9.0-12.0) 04/02/24 11:04 INR 1.0 (0.9-1.1) 04/02/24 11:04 APTT 27 Seconds (21-31) 04/02/24 11:04 PTT Ratio 1.0 04/02/24 11:04 Sodium 138 mmol/L (136-145) 04/02/24 11:04 Potassium 4.3 mmol/L (3.5-5.1) 04/02/24 11:04 Chloride 102 mmol/L (98-107) 04/02/24 11:04 Carbon Dioxide 29 mmol/L (21-32) 04/02/24 11:04 Anion Gap 7 (3-11) 04/02/24 11:04 BUN 15 mg/dl (6-23) 04/02/24 11:04 Creatinine 0.75 mg/dl (0.6-1.4) 04/02/24 11:04 Est Cr Clr Drug Dosing 97.5 ml/min 04/02/24 11:04 eGFR 97.08 04/02/24 11:04 BUN/Creatinine Ratio 20.0 (10-20) 04/02/24 11:04 Glucose 111 mg/dl (70-99(Fasting)) H 04/02/24 11:04 Calcium 9.8 mg/dl (8.6-10.3) 04/02/24 11:04 Total Bilirubin 0.4 mg/dl (0.2-1.0) 04/02/24 11:04 AST 76 U/L (13-39) H 04/02/24 11:04 ALT 88 U/L (7-52) H 04/02/24 11:04 Alkaline Phosphatase 118 U/L (34-104) H 04/02/24 11:04 Troponin I High Sens 6.6 pg/ml (0-20) 04/02/24 11:04 Total Protein 7.4 gm/dl (6.0-8.3) 04/02/24 11:04 Albumin 3.9 gm/dl (3.4-5.0) 04/02/24 11:04 Globulin 3.5 gm/dl (2.5-4.0) 04/02/24 11:04 Albumin/Globulin Ratio 1.1 (0.9-2) 04/02/24 11:04 Adenovirus (PCR) Not Detected (NotDetected) 04/02/24 11:09 B. pertussis DNA (PCR) Not Detected (NotDetected) 04/02/24 11:09 B.parapertussis DNA PCR Not Detected (NotDetected) 04/02/24 11:09 C. pneumoniae DNA (PCR) Not Detected (NotDetected) 04/02/24 11:09 Coronavirus OC43 (PCR) Not Detected (NotDetected) 04/02/24 11:09 Coronavirus HKU1 (PCR) Not Detected (NotDetected) 04/02/24 11:09 Coronavirus 229E (PCR) Not Detected (NotDetected) 04/02/24 11:09 SARS-CoV-2 (PCR) Not Detected (NotDetected) 04/02/24 11:09 Coronavirus NL63 (PCR) Not Detected (NotDetected) 04/02/24 11:09 Human Metapneumovir PCR Not Detected (NotDetected) 04/02/24 11:09 Influenza Type A (PCR) Not Detected (NotDetected) 04/02/24 11:09 Influenza Type B (PCR) Not Detected (NotDetected) 04/02/24 11:09 M. pneumoniae (PCR) Not Detected (NotDetected) 04/02/24 11:09 Parainfluenza 1 (PCR) Not Detected (NotDetected) 04/02/24 11:09 Parainfluenza 2 (PCR) Not Detected (NotDetected) 04/02/24 11:09 Parainfluenza 3 (PCR) Not Detected (NotDetected) 04/02/24 11:09 Parainfluenza 4 (PCR) Not Detected (NotDetected) 04/02/24 11:09 RSV (PCR) Not Detected (NotDetected) 04/02/24 11:09 Entero/Rhino (PCR) Not Detected (NotDetected) 04/02/24 11:09 Impressions Chest X-Ray 04/02/24 10:58 XR chest 1V not portable CLINICAL HISTORY: Chest pain, nonspecific COMPARISON STUDY: 05/17/2023 FINDINGS: Heart size and pulmonary vasculature are normal. Inspiration is shallow. There is interval faint reticular and patchy opacity lateral left lung base. No other consolidation or pleural effusion. No pneumothorax. IMPRESSION: Early pneumonia versus atelectasis lateral left lung base. ACT 112: Negative or not required by law. Electronically signed by: Higinio Mcdonald M.D. 04/02/2024 12:02 PM Chest CTA 04/02/24 13:05 CT angio chest dissec wo/w con CLINICAL HISTORY: Chest/back pain, severe COMPARISON STUDY: 12/12/2023 FINDINGS: There is stable mild reticular and patchy groundglass opacity in the posterior lung bases. Stable mild emphysema. No new pulmonary consolidation or pleural effusion. No pneumothorax. No enlarged adenopathy. No pericardial effusion. There are diffuse coronary artery calcifications. No thoracic aortic dissection or aneurysm. No pulmonary embolism. No pericardial effusion. No acute osseous findings. IMPRESSION: 1. No acute findings. 2. Stable mild lung base pulmonary opacities. ACT 112: Negative or not required by law. Electronically signed by: Higinio Mcdonald M.D. 04/02/2024 1:48 PM (2) Pulmonary embolism Acute cor pulmonale presence: without acute cor pulmonale Chronicity: acute Pulmonary embolism type: unspecified Qualified Code(s): I26.99 - Other pulmonary embolism without acute cor pulmonale
[2024-04-02] MEDS: MoRPHine SULFATE 2 MG/ML CARP IV STA (14:54)
--- NOTE | 2024-04-02 15:45 | Electrocardiogram Report ---
Test Reason : Blood Pressure : */* mmHG Vent. Rate : 81 BPM Atrial Rate : 81 BPM P-R Int : 182 ms QRS Dur : 82 ms QT Int : 378 ms P-R-T Axes : 65 29 23 degrees QTcB Int : 439 ms Sinus rhythm with occasional Premature ventricular complexes Otherwise normal ECG When compared with ECG of 06-Feb-2024 06:04, Premature ventricular complexes are now Present Confirmed by José Luis Rios ([id number]) on 04/02/2024 3:45:33 PM Referred By: Confirmed By: José Luis Rios
--- NOTE | 2024-04-02 16:01 | XRay Report ---
XR hand RT min 3V routine CLINICAL HISTORY: r hand redness - pain w/ movement COMPARISON: 04/17/2023 FINDINGS: No fracture or dislocation. No evidence of osteomyelitis. There are minimal scattered dege nerative changes without erosions. No radiopaque foreign body. IMPRESSION: No acute findings. ACT 112: Negative or not required by law. Electronically signed by: Higinio Mcdonald M.D. 04/02/2024 4:00 PM
[2024-04-02 16:04] LABS: Uric Acid 5.6 mg/dl (2.6-7.2)
[2024-04-02 16:11] LABS: Troponin I High Sensitivity 6.1 pg/ml (0-20)
[2024-04-02] MEDS: BACLOFEN 10 MG TAB PO SCH (17:09)
--- OUTSIDE RECORDS SUMMARY | 2024-04-02 17:09 | External Medical Summary | Summary of Care ---
Author Name Unknown Organization [facility] Address [address] [place] [address] Phone [phone] Care Team Providers Care Identity Access Management Architect Name Role Phone Ajit Moreno MD Primary Care Provider [phone] Reason for Visit * Reason Onset Date Comments Hospital Follow-Up 12/16/2023 Encounter Details Date Type Department Care Team (Late st Contact Info) Description 12/16/2023 Telephone General Internal Medicine [facility] [address] [place] [address] Ajit Moreno MD [address] [place] [id number] Hospital Follow-Up Allergies Active Allergy Reactions Criticality Noted Date Comments Fluticasone High 02/27/2020 Other reaction(s): lightheadedness and nausea Umeclidinium High 02/27/2020 Other reaction(s): lightheadedness and nausea Vilanterol High 02/27/2020 Other reaction(s): lightheadedness and nausea documented as of this encounter (statuses as of 03/17/2024) Medications Clobetasol Propionate 0.05 % External Ointment (Temovate)Indicat ions:Stasis dermatitis of both legs Apply 2x daily to rash on legs until resolved, then as needed when flaring 60 g 022 Active Albuterol Sulfate HFA 108 (90 Base) MCG/ACT Inhalation Aerosol SolutionIndicatio ns:Pulmonary emphysema, unspecified emphysema type ([facility]) INHALE TWO PUFFS BY MOUTH EVERY 4 HOURS NEEDED FOR SHORTNESS OF BREATH or wheezing 8.5 g 5 024 Active Aspirin 81 MG Oral Tablet Chewable (Aspirin 81) Take 1 Tablet by mouth in the morning. 90 Tablet 3 01/10/20 24 11:10 AM EST 024 Active Baclofen 5 MG Oral Tablet (Lioresal) Take 1 Tablet by mouth 3 times a day as needed for Muscle spasms. 30 Tablet 3 Active Cyanocobalamin 1000 MCG Oral Tablet (Cyanocobalamin) Take 1 Tablet by mouth in the morning. 90 Tablet 3 01/10/20 24 11:10 AM EST 024 Active Escitalopram Oxalate 10 MG Oral Tablet (Lexapro)Indicati ons:Mood swings Take 1 Tablet by mouth in the morning. 90 Tablet 3 01/28/20 24 8:29 AM EST 024 Active Levalbuterol HCl 1.25 MG/3ML Inhalation [...] 1/2 Tablet before bedtime. 60 Tablet 3 01/12/20 24 7:01 AM EST 024 Active Ondansetron HCl 8 MG Oral Tablet [...] 1 Tablet before bedtime. 180 Tablet 3 01/10/20 24 11:10 AM EST 024 Active Prochlorperazine Maleate 5 MG Oral Tablet (Compazine)Indica tions:Nausea without vomiting Take 1 Tablet by mouth every 6 hours as needed for Nausea. 30 Tablet 3 024 Active Additional Information Patient not taking.Reported on 02/13/2024 Nebulizer/Tubing/ Mouthpiece Kit Use as directed 1 Kit 5 Active Trelegy Ellipta 200-62.5-25 MCG/ACT Aerosol Powder Breath Activated (Fluticasone-Umec lidinium-Vilanter ol)Indications:CO PD, group C, by GOLD 2017 classification ([facility]) Inhale 1 Puff by mouth in the morning. 60 Each 10 Active Triamcinolone Acetonide 0.1 % External Ointment (Aristocort)Indic ations:Stasis dermatitis of both legs Apply 2 times a day to rash on lower legs when flaring (see printed checkout sheet) 80 g 2 024 Active Montelukast Sodium 10 MG Oral Tablet (Singulair) Take 1 Tablet by mouth at bedtime. 90 Tablet 3 024 Active Furosemide 40 MG Oral Tablet (Lasix)Indication s:Bilateral lower extremity edema Take 1 Tablet by mouth in the morning for fluid accumulation or weight gain. 90 Tablet 3 10/21/19 24 3:05 PM EDT 024 Active Magnesium Chloride 64 MG Oral Tablet Delayed Release (Mag-64)Indicatio ns:Hospital discharge follow-up Take 2 Tablets by mouth in the morning. 180 Tablet 1 024 Active Additional Information Patient taking differently:128 mg OralBID (.AM/PM), Reported on 02/13/2024 Probiotic Acidophilus Oral CapsuleIndication s:Hospital discharge follow-up Take 1 Capsule by mouth in the morning. 30 Capsule 1 09/30/2 024 Active oxyCODONE HCl 10 MG Oral Tablet [...] 24 7:48 AM EDT 024 2023 Discontinued predniSONE 20 MG Oral Tablet (Deltasone) Take 2 Tablets by mouth daily as needed for copd exacerbation for 5 days when directed 10 Tablet 3 10/27/19 24 6:57 AM EDT 024 2023 Discontinued(M edication List Clean Up) Pregabalin 100 MG Oral Capsule (Lyrica)Indicatio ns:Chronic pain syndrome Take 1 Capsule by mouth in the morning and 1 Capsule before bedtime. 60 Capsule 2 10/17/19 7:48 AM EDT 024 2023 Discontinued(R efill) guaiFENesin-Codei ne 100-10 MG/5ML Oral Syrup (Robitussin AC)Indications:Ch ronic cough Take 5 mL by mouth every 4 hours as needed for Cough. 120 mL 024 2023 Discontinued(M edication List Clean Up) Azithromycin 250 MG Oral Tablet (Zithromax)Indica tions:COPD, group D, by GOLD 2017 classification ([facility]) take two tablets by mouth on day one, then one tablet on days two through five as needed for copd rescue 6 Tablet 10/27/19 7:34 AM EDT 024 2023 Discontinued(M edication List Clean Up) Vancomycin IVPB injection Administer 262.5 mL intravenously in the morning and 262.5 mL before bedtime. 2023 Discontinued(M edication List Clean Up) Caspofungin Acetate 50 MG Intravenous Solution Reconstituted (Cancidas) Administer 50 mg intravenously in the morning. 2023 Discontinued(M edication List Clean Up) Alteplase 2 MG Injection Solution Reconstituted (Cathflo Activase)Indicati ons:Occlusion of peripherally inserted central catheter (PICC) line, initial encounter ([facility]) Inject 2 mg intravenously once for 1 dose. 1 Each 024 2023 Discontinued(M edication List Clean Up) Apixaban 5 MG Oral Tablet (Eliquis) Take 1 Tablet by mouth in the morning and 1 Tablet before bedtime. 10mg twice a day for 7 days then 5mg twice a day thereafter. 2023 Discontinued(R efill) Hospital, Clinic, or Other Facility Administered Medication Ordered Dose Route Frequency Start Date End Date Status Albuterol Sulfate (Proventil) (2.5 MG/3ML) 0.083% inhalation solution 2.5 mgIndications:COPD, group D, by GOLD 2017 classification ([facility]),Centrilobular emphysema ([facility]) 2.5 mg NEBULIZER ONCE PRN 10/03/2023 Active documented as of this encounter (statuses as of 03/17/2024) Active Problems Problem Noted Date Diagnosed Date [...] Classes - YA Class D - Inhaled Rgabkffhupblib-XJYD-CEIT Combination Inhaler (Trellegy) Remote Patient Monitoring Vendor: [...] Classes - YA Class D - Inhaled Uexolaqpgribqh-PZQM-GZMR Combination Inhaler (Trellegy) Remote Patient Monitoring Vendor: [...] as of this encounter (statuses as of 03/17/2024) Resolved Problems Problem Noted Date Diagnosed Date Resolved Date Depression, unspecified 11/07/202312/09 Depression, unspecified 11/07/2023 11/0 09/2023 Hyperlipidemia 03/21/2023 04/07/2023 Morbid (severe) obesity due to excess calories 03/10/2022 04/29/2022 Overview (04/29/2022): Body Mass Index: 32.94 kg/mAbnormal 1.676 m (5' 6") as of 03/11/2022 92.6 kg (204 lb 1.6 oz) as of 04/02/2022 NO LONGER CURRENT Heart failure 11/23/2021 01/08/2022 CARLSO (generalized anxiety disorder) 09/20/2018 10/06/2020 Pathological dislocation [...] LUNG, NOT ELSEWHERE CLASSIFIED 06/12/2002 09/14/2018 CHEST [id number] 04/09/200209/2018 ABN FD-INTRATHOR ORG NEC-akbar nodule 03/06/2002 [...] as of this encounter (statuses as of 03/17/2024) Immunizations Name Administration Dates Next Due COVID-19 mRNA, LNP-s, No Pre serve, 2-Dose Series (Context app) 05/22/2020,05/01/2020 Seasonal Influenza, PF, 6 M & above, IM , (FluLaval or Fluzone) 10/26/2019,12/22/2018,12/28/2017 Seasonal Influenza, Quadriva lent Hd (Fluzone Hd) 01/08/2022 documented as of this encounter Social History Tobacco Use Types Packs/Day Years Used Date Smoking Tobacco: Every Day Cigarettes 0.5 45.9 Started: 03/19/2003 Passive Smoke Exposure: Past Smokeless [...] No 04/26/2023 Does the household have a up health systemr source of income? (Household - for ages [...] ages 0-17 years) Not on file 04/26/2023 Food Insecurity Answer Date Recorded Within the past 12 months, y ou worried that your food would run out before you got the money to buy more. Sometimes true Within the past 12 months, t he food you bought just didn't last and you didn't have money to get more. Sometimes true Do you need food for this week? Yes 04/26/2023 Sex and Gender Information Value Date Recorded Sex Assigned at Not on file Legal Sex Male 7:01 AM EST Gender Identity Male 08/31/2021 1:16 PM EDT Sexual Orientation Straight 07/05/2018 9: 33 AM EDT documented as of this encounter Miscellaneous Notes * Telephone Encounter - Asim Turner OSA - 12/21/2023 9:03 AM EST Lm for patient and also sent a letter on 12/21/23 * Telephone Encounter - Asim Turner OSA - 12/19/2023 8:54 AM EST LM for patient to call back to verify appt that is scheduled on: [facility] at 11:30 AM (60 min)Arrive by 11:15 AM Thursday December 28, 2023 Appointment Provider:Toyin Wisdom PA-C in CARDIOLOGY [facility] * Telephone Encounter - Srikanth Martinez RN - 12/16/2023 3:44 PM EST Patient discharged from [facility] 12/13/23 to home. Cardiology consulted for chest pain, NSVT, PE. Dr Weaver recommends Hypercoagulable workup as outpatient and outpatient ischemic workup when PE has resolved. Please assist with a follow up appointment. Thank you documented in this encounter Plan of Treatment Upcoming Encounters Date Type Department Care Team (Late st Contact Info) Description 04/04/2024 4:00 PM EST Home Visit [facility] [address] [place] [address] Rosa Parra RN [address] [place] [address] 05/18/2024 2:40 PM EDT Office Visit [facility] [address] [place] [phone] Ajit Moreno MD [address] [place] [phone] Scheduled Procedures Name Priority Associated Diagnoses Date/Ti me COLONOSCOPY FLEXIBLE PROXIMAL DIAGNOSTIC Recall History of colon polyps Health Maintenance Due Date Last Done Comments DISCUSS TOBACCO CESSATION (REFER TO SMARTSET #3083) 1955 Alpha-1 Antitrypsin 12/04/1971 Cologuard 1998 Fecal Occult Blood Test 1998 Sigmoidoscopy 1998 *ADVANCE DIRECTIVE NOT ON FILE 07/22/2018 *BISPHONATE OR OTHER ACCEPTABLE MEDICATION NEEDED FOR OSTEOPOROSIS (REFER TO SMARTSET #8826) 06/29/2022 Adult Wellness Visit 03/11/2023 03/11/2022, 08/31/2021, [...] ASSESSMENT COMPLETED IN PAST YEAR FOR COPD 02/12/2025 02/13/2024 Colonoscopy 03/18/2026 03/18/2021, 02/0 10/2021, 12/18/2019, Additional history exists Colorectal Cancer Screening 03/18/2026 Hepatitis C Screening Completed 05/31/2017 , 08/07/2015, 05/03/2014 RETIRED - COLONOSCOPY-ANNUAL AGES 18-100 Discontinued 03/18/2021, 03/18/2021, 12/18/2019, Additional history exists RETIRED - COLONOSCOPY-EVERY 5 YRS AGES 18-100 Discontinued 03/18/2021, 03/18/2021, 12/18/2019, Additional history exists VITAMIN D LEVEL ONCE IN A LIFETIME-USE SMARTSET# 35960 Completed 06/16/2021, 05/03/2014 AAA Screening Completed 09/24/2022, [...] 9:12 AM 05/09/2003 10:12 AM Care Teams Identity Access Management Architect Relationship Specialty Start Date End Date June, Ajit [place] MD PCP - General Family Medicine 03/11/22 documented as of this encounter
--- OUTSIDE RECORDS SUMMARY | 2024-04-02 17:09 | External Medical Summary | Summary of Care ---
Author Name Unknown Organization [facility] Address [address] [place] [address] Phone [phone] Care Team Providers Care Adjunct Faculty Name Role Phone Ajit Moreno MD Primary Care Provider [phone] Reason for Visit * Reason Onset Date Comments Order Request 12/14/2023 Redemption of ca re Encounter Details Date Type Department Care Team (Late st Contact Info) Description 12/14/2023 Telephone [facility] DEPT CLOSED - 01/26/24 [address] [place] [phone] Ajit Moreno MD [address] [place] [phone] Order Request (Redemption of care ) Allergies Active Allergy Reactions Criticality Noted Date Comments Fluticasone High 02/27/2020 Other reaction(s): lightheadedness and nausea Umeclidinium High 02/27/2020 Other reaction(s): lightheadedness and nausea Vilanterol High 02/27/2020 Other reaction(s): lightheadedness and nausea documented as of this encounter (statuses as of 03/15/2024) Medications Clobetasol Propionate 0.05 % External Ointment [...] Additional Information Patient not taking.Reported on 02/13/2024 Nebulizer/Tubing/M outhpiece Kit Use as directed 1 [...] (.AM/PM), Reported on 02/13/2024 Probiotic Acidophilus Oral CapsuleIndications :Hospital discharge follow-up [...] ([facility]),Centrilobular emphysema (HCC) 2.5 mg NEBULIZER ONCE PRN 10/03/2023 Active documented as of this encounter (statuses as of 03/15/2024) Active Problems Problem Noted Date Diagnosed Date [...] Classes - YA Class D - Inhaled Kspulozqbmxdbk-DEBN-UQMP Combination Inhaler ([facility]) Remote Patient Monitoring Vendor: No Connected RPM [...] Classes - YA Class D - Inhaled Xmaydtnzwocdoi-BPZR-HEUS Combination Inhaler (Trellegy) Remote Patient Monitoring Vendor: [...] as of this encounter (statuses as of 03/15/2024) Resolved Problems Problem Noted Date Diagnosed Date [...] LUNG, NOT ELSEWHERE CLASSIFIED 06/12/2002 09/14/2018 CHEST [id number] 04/09/200209/2018 ABN FD-INTRATHOR ORG NEC-akbar nodule 03/06/2002 [...] as of this encounter (statuses as of 03/15/2024) Immunizations Name Administration Dates Next Due COVID-19 mRNA, LNP-s, No Pre serve, 2-Dose Series ([employer]) 05/22/2020,05/01/2020 Seasonal Influenza, PF, 6 M & [...] No 04/26/2023 Does the household have a [facility] hospital[facility] source of income? (Household - for [...] Telephone Encounter - Ajit Moreno MD - 12/16/2023 7:49 AM EST See separate encounter. Ajit Moreno MD * Telephone Encounter - Justin, Bernie, TAYLOR - 12/14/2023 8:49 AM EST Coretta from [facility] home health called and stated that the pt was discharge from the hospital and if the doctor would like for [facility] to continue IV care please to new order in and you can fax it to [phone] documented in this encounter Plan of Treatment Upcoming Encounters Date Type Department Care Team (Late st Contact Info) Description 03/16/2024 3:00 PM EST Office Visit [facility]opa[facility] [address] [place] [phone] Enrique Sal MD [address] [place] [phone] 04/04/2024 4:00 PM EST Home Visit [facility] [address] [place] [phone] Rosa Parra RN [address] [place] [address] 05/18/2024 2:40 PM EDT Office Visit [facility] Amy Grimes [address] [place] [phone] Ajit Moreno MD [address] [place] [phone] Scheduled Procedures Name Priority Associated Diagnoses Date/Ti me COLONOSCOPY FLEXIBLE PROXIMAL DIAGNOSTIC Recall History of colon polyps Health Maintenance Due Date Last Done Comments DISCUSS TOBACCO CESSATION (REFER TO SMARTSET #7361) 1955 Alpha-1 Antitrypsin 12/04/1971 Cologuard 1998 Fecal [...] FOR COPD 02/12/2025 02/13/2024 Colonoscopy 03/18/2026 03/18/2021, 10/2021, 12/18/2019, Additional history exists Colorectal Cancer Screening 03/18/2026 Hepatitis C Screening Completed 05/31/2017 , 08/07/2015, 05/03/2014 RETIRED - COLONOSCOPY-ANNUAL AGES 18-100 Discontinued 03/18/2021, 03/18/2021, 12/18/2019, Additional history exists RETIRED - COLONOSCOPY-EVERY 5 YRS AGES 18-100 Discontinued 03/18/2021, 03/18/2021, 12/18/2019, Additional history exists VITAMIN D LEVEL ONCE IN A LIFETIME-USE SMARTSET# 53338 Completed 06/16/2021, 05/03/2014 AAA Screening Completed 09/24/2022, [...] 9:12 AM 05/09/2003 10:12 AM Care Teams Adjunct Faculty Relationship Specialty Start Date End Date June, Ajit [place] MD PCP - General Family Medicine 03/11/22 documented as of this encounter
--- OUTSIDE RECORDS SUMMARY | 2024-04-02 17:09 | External Medical Summary | Summary of Care ---
Author Name Unknown Organization [facility] Address [address] [place] [address] Phone [phone] Care Team Providers Care Lead Maintenance Technician Name Role Phone Ajit Moreno MD Primary Care Provider [phone] Encounter Details Date Type Department Care Team (Late st Contact Info) Description 12/15/2023 Telephone [facility] DEPT CLOSED - 01/26/[address] [place] [phone] Ajit Moreno MD [address] [place], [place] [phone] Allergies Active Allergy Reactions Criticality Noted Date Comments Fluticasone High 02/27/2020 Other reaction(s): lightheadedness and nausea Umeclidinium High 02/27/2020 Other reaction(s): lightheadedness and nausea Vilanterol High 02/27/2020 Other reaction(s): lightheadedness and nausea documented as of this encounter (statuses as of 03/16/2024) Medications Clobetasol Propionate 0.05 % External Ointment (Temovate)Indicat ions:Stasis dermatitis of both legs Apply 2x daily to rash on legs until resolved, then as needed when flaring 60 g 022 Active Albuterol Sulfate HFA 108 (90 Base) MCG/ACT Inhalation Aerosol SolutionIndicatio ns:Pulmonary emphysema, unspecified emphysema type ([facility]) INHALE TWO PUFFS BY MOUTH EVERY 4 HOURS NEEDED FOR SHORTNESS OF BREATH or wheezing 8.5 g 5 024 Active Aspirin 81 MG Oral Tablet Chewable (Aspirin 81) Take 1 Tablet by mouth in the morning. 90 Tablet 3 01/10/20 24 11:10 AM EST Active Baclofen 5 MG Oral Tablet (Lioresal) [...] ons:COPD, group C, by GOLD 2017 classification ([facility]) Inhale 1 vial via nebulizer [...] PD, group C, by GOLD 2017 classification ([facility]) Inhale 1 Puff by mouth [...] mouth in the morning. 30 Capsule 1 024 Active oxyCODONE HCl 10 MG Oral [...] tions:COPD, group D, by GOLD 2017 classification ([facility]) take two tablets by mouth [...] inserted central catheter (PICC) line, initial encounter ([facility]) Inject 2 mg intravenously once [...] D, by GOLD 2017 classification ([facility]),Centrilobular emphysema ([facility]) 2.5 mg NEBULIZER ONCE PRN 10/03/2023 Active documented as of this encounter (statuses as of 03/16/2024) Active Problems Problem Noted Date Diagnosed Date [...] Classes - YA Class D - Inhaled Rwubazhhrhtkls-MKEF-EJPS Combination Inhaler (Trellegy) Remote Patient Monitoring Vendor: [...] Classes - YA Class D - Inhaled Xntrfptjkderra-XMPO-KHUY Combination Inhaler (Trellegy) Remote Patient Monitoring Vendor: [...] as of this encounter (statuses as of 03/16/2024) Resolved Problems Problem Noted Date Diagnosed Date [...] LUNG, NOT ELSEWHERE CLASSIFIED 06/12/2002 09/14/2018 CHEST [id number] 04/09/200209/2018 ABN FD-INTRATHOR ORG NEC-akbar nodule 03/06/2002 [...] as of this encounter (statuses as of 03/16/2024) Immunizations Name Administration Dates Next Due COVID-19 mRNA, LNP-s, No Pre serve, 2-Dose Series ([employer]) 05/22/2020,05/01/2020 Seasonal Influenza, PF, 6 M & [...] No 04/26/2023 Does the household have a [facility] source [facility] income? (Household - for ages [...] encounter Miscellaneous Notes * Telephone Encounter - Bekah Ballesteros OSA - 12/15/2023 2:00 PM EST Reason for patient's call: Dewey with [facility] wanting to discuss missing orders and that the pt has an obstructed pick line Caller was transferred to [facility] at the nurse line. documented in this encounter Plan of Treatment Upcoming Encounters Date Type Department Care Team (Late st Contact Info) Description 03/16/2024 3:00 PM EST Office Visit [facility]opa[facility] [address] [place] [phone] Enrique Sal MD [address] [place] [phone] 04/04/2024 4:00 PM EST Home Visit [facility] [address] [place] [address] Rosa Parra RN [address] [place] [address] 05/18/2024 2:40 PM EDT Office Visit [facility] [address] [place] [phone] Ajit Moreno MD [address] [facility] [place] [address] Scheduled Procedures Name Priority Associated Diagnoses Date/Ti [...] D LEVEL ONCE IN A LIFETIME-USE SMARTSET# [id number] Completed 06/16/2021, 05/03/2014 AAA Screening Completed 09/24/2022, [...] 9:12 AM 05/09/2003 10:12 AM Care Teams Lead Maintenance Technician Relationship Specialty Start Date End Date June, Ajit [place] MD PCP - General Family Medicine 03/11/22 documented as of this encounter
--- NOTE | 2024-04-02 18:26 | Cardiology Consultation ---
Date of Consultation April 02, 2024 Assessment & Plan (1) Non-cardiac chest pain: (2) Combined pulmonary fibrosis and emphysema (CPFE): Plan 68-year-old presents with left shoulder neck and chest pain. Pain severe and greater than 12 hours in duration, still present time of examination exacerbated by physical movement of the neck and shoulder. No evidence of myocardial ischemia by enzyme or EKG. CT of chest without acute finding Noncardiac source of pain No findings to suggest acute coronary syndrome No recommended changes in cardiac medications. Continue anticoagulation given history of current pulmonary emboli Repeat lipid panel in a.m. now off statin since December 2023 with persistent hepatic enzyme elevation History of Present Illness Reason for Consultation: Left shoulder pain Requesting Physician: Adam pickens Attending Physician: Manny Rothman DO History of Present Illness Patient is a 68-year-old male patient is a 68-year-old male with underlying issues include 1. COPD class C with pulmonary fibrosis/emphysema 2. Pulmonary embolus recurrent 2016, 12/08/2023 3. Obstructive sleep apnea Patient sought ER evaluation today after developing severe neck left shoulder and upper left back pain radiating across chest and arm with movement beginning last evening. Symptoms persisted throughout the night and day today. No interruption no waxing or waning but gradually improving to this evening still low-grade present and markedly exacerbated with palpation or movement of the shoulder. No acute shortness of breath. Patient has been experiencing worsening cough x 3 weeks productive of yellow- green sputum. No fevers or chills currently. No bleeding difficulties. Does continue to smoke approximately 1/4 to 1/2 pack/day. 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 Despite extended duration of pain and severity no troponin elevation White cell count, AST and ALT elevation observed Allergies Allergy/AdvReac Type Severity Reaction Status Date / Time No Known Allergies Allergy Verified 03/05/24 14:52 Home Medications Medication Instructions Recorded Confirmed Type albuterol sulfate 90 mcg/actuation 2 puff inhalation Q4H PRN 02/04/24 04/02/24 History aerosol inhaler Shortness Of Breath Or Wheezing apixaban 5 mg tablet (Eliquis) 5 mg PO BID 02/04/24 04/02/24 History aspirin 81 mg tablet,delayed 81 mg PO DAILY 02/04/24 04/02/24 History release cyanocobalamin (vitamin B-12) 1,000 mcg PO DAILY 02/04/24 04/02/24 History 1,000 mcg tablet escitalopram oxalate 10 mg tablet 10 mg PO DAILY 02/04/24 04/02/24 History fluticasone fur. 200 mcg-umeclid 1 inh inhalation DAILY 02/04/24 04/02/24 History 62.5 mcg-vilant 25 mcg inhalat.powder (Trelegy Ellipta) furosemide 40 mg tablet 40 mg PO DAILY 02/04/24 04/02/24 History levalbuterol HCl 1.25 mg/3 mL 1.25 mg inhalation Q4H PRN 02/04/24 04/02/24 History solution for nebulization Shortness Of Breath Or Wheezing loperamide 2 mg tablet 4 mg PO TID PRN Diarrhea 02/04/24 04/02/24 History lorazepam 0.5 mg tablet 0.5 mg PO Q6H PRN Agitation 02/04/24 04/02/24 History magnesium chloride 64 mg 64 mg PO BID 02/04/24 04/02/24 History (magnesium chloride) tablet,delayed release metoprolol tartrate 25 mg tablet 12.5 mg PO BID 02/04/24 04/02/24 History montelukast 10 mg tablet 10 mg PO DAILY 02/04/24 04/02/24 History pantoprazole 40 mg tablet,delayed 40 mg PO DAILY 02/04/24 04/02/24 History release pregabalin 100 mg capsule 100 mg PO BID 02/04/24 04/02/24 History Patient History Medical History Hyperglycemia Ha1c 6.2% 10/10/23 labs; no mention of DMII by PCP Cigarette smoker Obesity 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 Saw vascular: started on [id number] and Eliquis. Eliquis was then D/C by pulmonary 04/2023. Pt had normal f/u chest CTA 06/20/23 Irregular cardiac rhythm pt noted to have 25beats of Nonsustained VTach vs PAT day of discharge (08/09/23) [facility]; pt denied sx; started on metoprolol and ordered Zio monitor and Cardio referral Peripheral vascular disease Chronic diastolic heart failure PCP monitoring; ECHO 10/03/23 with nl EF and Gr I DD. 'no changes to medications needed at this time. Continue lasix daily' per PCP Chronic back pain "hx broken back"no back surgery Arthritis GERD (gastroesophageal reflux disease) Hx pulmonary embolism 2017 developed after a bad fall (was on coumadin for 1 year) Cardiac murmur no significant valve disease per 10/03/23 ECHO Hypertension Hyperlipidemia Chronic obstructive pulmonary disease 'group D' per pulm. Pt admitted [facility] for COPD exacerbation 10/08-10/11/23; admitted [facility] for COPD exacerbation (also had COVID at the time): 09/22- 09/25/23; admitted for COPD exacerbation 05/17-05/21/23 Asthma required rescue inhaler "just the other day" Chronic respiratory failure On oxygen at night in the past - but no longer needs per patient . Per 10/18/23 PCP note, 'pt stable from a respiratory standpoint' Hx of migraines Sleep apnea 2L O2 HS (no other device) History of COVID-19 Admitted [facility] 09/22-09/25/23 COVID+ and COPD exacerbation; pt states no longer having COVID sx Pneumothorax Hx- complication from pain injection- resolved Histoplasmosis 2002- treated Surgical History H/O hernia repair History of esophagogastroduodenoscopy (EGD) Hx of colonoscopy History of open reduction and internal fixation (ORIF) procedure right shoulder History of total replacement of left shoulder joint History of sinus surgery History of placement of chest tube History of hand surgery right/left Left femoral shaft fracture Dutch placed>hardware intact H/O total hip arthroplasty left H/O elbow surgery R radial head ORIF prior to 2009; R elbow I&D 08/05/23: GA: MAC#4, ETT#7.5HiLo, Gr View 1 H/O exploratory thoracotomy "Left thoracotomy wedge biopsy of left upper lobe with excision of lesion or nodule & frozen section 2002" [facility] incarcerated supraumbilical hernia repair open no mesh 02/17/01 Family History Father Heart disease Hypertension Brother Heart disease Cancer Hypertension Stroke Mother Cancer Other Leukemia No family history of adverse response to anesthesia No family history of bleeding disorder Non-Hodgkin lymphoma Denies family history of Hearing loss Asthma Social History Smoking Status: Current every day smoker Tobacco Type: Cigarettes Age Started Using Tobacco: 11; packs per day: 1; Cigarettes Per Day: 10 cig daily>advised; Second Hand Exposure: No; Do You Dip or Chew Tobacco: No; Hx Alcohol Use: No Hx Substance Use: No Preferred Language: Lao Communication Ability: Effective 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 Beliefs That Will Affect Care: None marital status: Current Living Situation: Spouse current occupational status: unemployed Feels Safe at Home: Yes Assistive Devices: Oxygen - at Night Review of Systems Review of Systems: All systems reviewed & are unremarkable except as noted in HPI & below Physical Exam Constitutional: WD/WN, vitals as above Eyes: PERRL, conjunctivae normal, anicteric sclerae Neck: trachea midline, no thyromegaly Respiratory: Auscultation: + diminished lung sounds Cardiovascular: Rate/Rhythm: regular rate and regular rhythm Heart Sounds: normal S1 and normal S2; no murmur Vessels: no JVD Extremities: no edema Chest (Breasts): normal inspection/palpation of breasts Musculoskeletal: Severe pain with palpation and manipulation of neck and left shoulder Skin: no rashes, warm and dry Results & Data Vital Signs (Past 12 Hours) Vital Signs Temp Pulse Pulse Resp BP BP Pulse Ox 04/02/24 17:15 04/02/24 17:15 69 18 112/64 94 04/02/24 15:59 63 04/02/24 15:50 96 04/02/24 15:49 88 L 04/02/24 14:56 69 22 120/76 93 04/02/24 14:09 72 04/02/24 14:07 72 18 129/80 94 04/02/24 10:55 36.3 C L 80 20 137/86 94 Pulse Ox O2 Del Method O2 Del Method O2 Flow Rate 04/02/24 17:15 94 Nasal Cannula 04/02/24 17:15 Room Air 04/02/24 15:59 04/02/24 15:50 Nasal Cannula 2 04/02/24 15:49 Room Air 04/02/24 14:56 Room Air 04/02/24 14:09 04/02/24 14:07 Room Air 04/02/24 10:55 Room Air Laboratory Results Laboratory Results - last 24 hr 04/02/24 04/02/24 04/02/24 11:04 11:09 15:34 WBC 13.56 H RBC 5.06 Hgb 15.3 Hct 45.5 MCV 89.9 MCH 30.2 MCHC 33.6 RDW Std Deviation 53.9 H RDW Coeff of Jaz 16.1 H Plt Count 311 MPV 11.1 Immature Gran % (Auto) 0.3 Neut % (Auto) 78.0 Lymph % (Auto) 11.2 Casey % (Auto) 8.9 Eos % (Auto) 1.2 Baso % (Auto) 0.4 Neut # (Auto) 10.57 H Lymph # (Auto) 1.52 Casey # (Auto) 1.21 H Eos # (Auto) 0.16 Baso # (Auto) 0.06 Immature Gran # (Auto) 0.04 PT 10.7 INR 1.0 APTT 27 PTT Ratio 1.0 Sodium 138 Potassium 4.3 Chloride 102 Carbon Dioxide 29 Anion Gap 7 BUN 15 Creatinine 0.75 Est Cr Clr Drug Dosing 97.5 eGFR 97.08 BUN/Creatinine Ratio 20.0 Glucose 111 H Uric Acid 5.6 Calcium 9.8 Total Bilirubin 0.4 AST 76 H ALT 88 H Alkaline Phosphatase 118 H Troponin I High Sens 6.6 6.1 B-Natriuretic Peptide Total Protein 7.4 Albumin 3.9 Globulin 3.5 Albumin/Globulin Ratio 1.1 Procalcitonin 0.04 Adenovirus (PCR) Not Detected B. pertussis DNA (PCR) Not Detected B.parapertussis DNA PCR Not Detected C. pneumoniae DNA (PCR) Not Detected Coronavirus OC43 (PCR) Not Detected Coronavirus HKU1 (PCR) Not Detected Coronavirus 229E (PCR) Not Detected SARS-CoV-2 (PCR) Not Detected Coronavirus NL63 (PCR) Not Detected Human Metapneumovir PCR Not Detected Influenza Type A (PCR) Not Detected Influenza Type B (PCR) Not Detected M. pneumoniae (PCR) Not Detected Parainfluenza 1 (PCR) Not Detected Parainfluenza 2 (PCR) Not Detected Parainfluenza 3 (PCR) Not Detected Parainfluenza 4 (PCR) Not Detected RSV (PCR) Not Detected Entero/Rhino (PCR) Not Detected 02/24/25 16:19 WBC RBC Hgb Hct MCV MCH MCHC RDW Std Deviation RDW Coeff of Jaz Plt Count MPV Immature Gran % (Auto) Neut % (Auto) Lymph % (Auto) Casey % (Auto) Eos % (Auto) Baso % (Auto) Neut # (Auto) Lymph # (Auto) Casey # (Auto) Eos # (Auto) Baso # (Auto) Immature Gran # (Auto) PT INR APTT PTT Ratio Sodium Potassium Chloride Carbon Dioxide Anion Gap BUN Creatinine Est Cr Clr Drug Dosing eGFR BUN/Creatinine Ratio Glucose Uric Acid Calcium Total Bilirubin AST ALT Alkaline Phosphatase Troponin I High Sens B-Natriuretic Peptide 42 Total Protein Albumin Globulin Albumin/Globulin Ratio Procalcitonin Adenovirus (PCR) B. pertussis DNA (PCR) B.parapertussis DNA PCR C. pneumoniae DNA (PCR) Coronavirus OC43 (PCR) Coronavirus HKU1 (PCR) Coronavirus 229E (PCR) SARS-CoV-2 (PCR) Coronavirus NL63 (PCR) Human Metapneumovir PCR Influenza Type A (PCR) Influenza Type B (PCR) M. pneumoniae (PCR) Parainfluenza 1 (PCR) Parainfluenza 2 (PCR) Parainfluenza 3 (PCR) Parainfluenza 4 (PCR) RSV (PCR) Entero/Rhino (PCR)
[2024-04-02] MEDS: ACETAMINOPHEN 325 MG TAB PO PRN (18:39)
[2024-04-02] MEDS: LORazepam 0.5 MG TAB PO PRN (18:40)
[2024-04-02] MEDS: CELECOXIB 100 MG CAP PO SCH (21:32)
[2024-04-02] MEDS: PREGABALIN 100 MG CAP PO SCH (21:33)
[2024-04-02] MEDS: APIXABAN 5 MG TABLET PO SCH (21:33)
[2024-04-02] MEDS: METOPROLOL TARTRATE 25 MG TAB PO SCH (22:30)
[2024-04-03] MEDS: CYANOCOBALAMIN (B-12) 500 MCG TABLET PO SCH (07:44)
[2024-04-03] MEDS: FLUTICASONE FUROATE 200MCG 14 PUFFS/INHALER INH SCH (07:45)
[2024-04-03] MEDS: UMECLIDINIUM/VILANTEROL 62.5/25MCG 7 PUFFS/INHALER INH SCH (07:48)
[2024-04-03 08:16] VITALS: RESP 18; O2SAT 91
[2024-04-03] MEDS ORDERED: NON-FORMULARY MEDICATION (Fluticasone-Umeclidin-Vilanter [Trelegy Ellipta] 200-62.5-25 mcg INH SCH (09:00)
[2024-04-03 09:14] LABS: Basophils # (auto) 0.04 K/uL (0.00-0.20); Basophils % (auto) 0.6 %; Eosinophils # (auto) 0.23 K/uL (0.00-0.50); Eosinophils % (auto) 3.2 %; Hemoglobin 14.1 g/dl (14.0-18.0); Immature Granulocytes # (auto) 0.02 K/uL (0.01-0.20); Immature Granulocytes % (auto) 0.3 %; Lymphocytes # (auto) 1.44 K/uL (1.20-3.40); Lymphocytes % (auto) 20.1 %; Mean Corpuscular Hemoglobin 29.9 pg (25.0-34.0); Mean Corpuscular Hgb Conc 33.6 g/dL (32.0-36.0); Monocytes # (auto) 0.79 K/uL (0.11-0.59); Neutrophils # (auto) 4.66 K/uL (1.40-6.50); Neutrophils % (auto) 64.8 %; Platelet Count 278 K/uL (130-400); RDW Standard Deviation 52.6 fL (36.4-46.3); Red Blood Count 4.72 M/uL (4.70-6.10); White Blood Count 7.18 K/ul (4.8-10.8)
[2024-04-03] MEDS: ASPIRIN 81 MG ECTAB PO SCH (09:30)
[2024-04-03] MEDS: PANTOprazole 40 MG TAB PO SCH (09:30)
[2024-04-03] MEDS: ESCITALOPRAM OXALATE 10 MG TAB PO SCH (09:30)
[2024-04-03] MEDS: MONTELUKAST SODIUM 10 MG TABLET PO SCH (09:30)
[2024-04-03] MEDS: FUROSEMIDE 40 MG TAB PO SCH (09:30)
[2024-04-03 09:35] LABS: Albumin Level 3.3 gm/dl (3.4-5.0); BUN Creatinine Ratio 23.4 (10-20); Bilirubin,Total 0.6 mg/dl (0.2-1.0); Chol HDL Ratio 4.9 (0-5); Creatinine Clr Calc Pharmacy 113.7 ml/min; Globulin 3.2 gm/dl (2.5-4.0); Potassium 4.1 mmol/L (3.5-5.1); Total Protein 6.5 gm/dl (6.0-8.3)
[2024-04-03 11:07] VITALS: BP 105/67; PULSE 58; TEMP 97.7
[2024-04-03] MEDS: OPTIRAY 320 100ml IV ONE (13:20)
--- NOTE | 2024-04-03 13:54 | CT Scan Report ---
CT cervical spine w con HISTORY: 68 years-old Male concern for spondylopathy chronic neck pain COMPARISON: 12/10/2023 TECHNIQUE: Multiple axial CT images of the cervical spine were obtained with IV contrast. A dose lowe ring technique was used consistent with the principals of LUIS. FINDINGS: Mild multilevel intervertebral disc space narrowing and spondylitic spurring with mild to moderate fa cet arthrosis, generally unchanged from the prior study. No acute fracture, subluxation, endplate ero roro or destructive bone lesion. Suboptimal evaluation of the central canal and neural foramen by CT technique. Note is made of multilevel neural foraminal narrowing. Postoperative changes of the left upper lobe with linear scarring/atelectasis. Mild pulmonary emphyse ma. Unremarkable soft tissues. No abnormal enhancement. 8 mm right tracheoesophageal recess lymph nod e on image 525 of series 4. Mild tracheobronchial secretions. Atherosclerosis of the carotid bulbs wi thout high-grade stenosis. IMPRESSION: 1. No acute fracture or subluxation. 2. Mild multilevel intervertebral disc space narrowing and spondylotic spurring with mild to moderate facet arthrosis resulting in multilevel neural foraminal narrowing, suboptimally assessed by laboratory technician nique. ACT 112: Negative or not required by law. The above report was generated using voice recognition software. It may contain grammatical, syntax o r spelling errors. Electronically signed by: Colby Mata M.D. 04/03/2024 1:53 PM
--- NOTE | 2024-04-03 14:04 | CT Scan Report ---
CT shoulder LT w con CLINICAL HISTORY: concern for prosthesis misplacement/tendon tear COMPARISON STUDY: X-ray of 04/17/2023 FINDINGS: There is spray artifact from the left shoulder prosthesis. No hardware complications seen. There are a few small chronic calcifications just above the glenoid prosthesis. No fracture or disloc ation. There is mild AC joint osteoarthritis. No soft tissue hematoma or abscess seen. No evidence of osteomyelitis. IMPRESSION: No acute findings seen. ACT 112: Negative or not required by law. Electronically signed by: Higinio Mcdonald M.D. 04/03/2024 2:02 PM
--- NOTE | 2024-04-03 16:01 | Electrocardiogram Report ---
Test Reason : Blood Pressure : */* mmHG Vent. Rate : 55 BPM Atrial Rate : 55 BPM P-R Int : 178 ms QRS Dur : 86 ms QT Int : 462 ms P-R-T Axes : 71 23 13 degrees QTcB Int : 441 ms Sinus bradycardia Inferior infarct , age undetermined Abnormal ECG When compared with ECG of 02-Apr-2024 11:03, Premature ventricular complexes are no longer Present Confirmed by José Luis Rios ([id number]) on 04/03/2024 4:01:07 PM Referred By: REFERRED SELF Confirmed By: José Luis Rios
--- NOTE | 2024-04-03 17:12 | Discharge Summary ---
Discharge Summary Date of Service April 03, 2024 Principal Dx & Hospital Course #1 = Principal Diagnosis (1) Combined pulmonary fibrosis and emphysema (CPFE): (2) Pulmonary embolism: (3) HLD (hyperlipidemia): (4) Anxiety: (5) GERD (gastroesophageal reflux disease): (6) Hypertension: Plan Assessment and plan: Chest pain, ruled out Chest CTA was negative for any acute findings No acute EKG changes, initial troponin negative Celebrex/baclofen ordered for pain control -per cardiology chest pain ruled out, noncardiac in origin #Left Shoulder Pain -unable to have MRI due to prosthesis -CT shoulder and neck unrevealing for cause of pain -PT/OT recommending outpatient rehab -send home with pain medicaiton Hx PE - November 2023: Continue Eliquis Hx COPD: Hx TAYLOR on 2 L O2 at bedtime Managed on Trelegy and montelukast Nebulizers as needed Hx CHF with preserved EF: Continue metoprolol/Lasix, check BNP Hx GERD: Continue Protonix Notes For Next Care Provider The patient is a 68-year-old male with a past medical history of HLDwith statin intolerance, prediabetes, COPD, TAYLOR on oxygen at at bedtime, CHF with preserved EF, GERD, obesity, chronic pain syndrome, PEOctober 2023, depression who presents to the ED on 04/02/2024 with complaints of chest pain. ADmitted to medicine for chest pain rule out. Cardiology consulted, feel pain is noncardiac in nature. Tender shoulder to palpation, PT/OT consulted recommending outpatient rehab. CT imaging unrevealing for acute cause of pain. On 04/03/2024 patient medically stable for discharge home. Medication Changes From Visit -oxycodone, voltaren Admission HPI Per Admitting Provider The patient is a 68-year-old male with a past medical history of HLDwith statin intolerance, prediabetes, COPD, TAYLOR on oxygen at at bedtime, CHF with preserved EF, GERD, obesity, chronic pain syndrome, PEOctober 2023, depression who presents to the ED on 04/02/2024 with complaints of chest pain started last night. He reports the chest pain woke him up from sleep last night at 1 AM and is sharp. Reports chest pain radiates to the left side of his neck and jaw and is severe. Patient was given Toradol in the ER with no relief. He reports some associated shortness of breath but reports that this feels different than his normal COPD exacerbations. Reports some intermittent wheezing. Also reports some right hand pain and redness that started this morning. Denies any recent falls or injuries. Reports the chest pain worsens with exertion. Denies any sick contacts or recent travel. On arrival to the ED, labs remarkable for WBC 13.5, AST 76, ALT 88 No acute EKG changes, troponin 6.6 initially BioFire is negative Chest x-ray shows early pneumonia versus atelectasis Chest CTA shows no acute findings with stable mild lung base pulmonary opacities The patient will be admitted for pain control and rule out ACS He was given aspirin and Toradol/morphine in the ED Discharge Exam Gen: A&O 3 NAD HEENT: NCAT, EOMI, not icteric. External ears normal. No rhinorrhea. Moist mucous membranes. Neck: Supple, full range of motion, no observable masses, No meningeal sign. Lungs: No Respiratory distress. CV: RRR, no edema. Abdomen: Soft, nondistended, No rebound tenderness. MSK: pain to palpation on left shoulder Skin: No rashes, petechiae, lesions. Normal color per patient. Neuro: Normal Gait, Grossly intact. Psych: Appropriate for situation. Updated Medication List Medication Instructions Recorded Confirmed Type albuterol sulfate 90 mcg/actuation 2 puff inhalation Q4H PRN 02/04/24 04/02/24 History aerosol inhaler Shortness Of Breath Or Wheezing apixaban 5 mg tablet (Eliquis) 5 mg PO BID 02/04/24 04/02/24 History aspirin 81 mg tablet,delayed 81 mg PO DAILY 02/04/24 04/02/24 History release cyanocobalamin (vitamin B-12) 1,000 mcg PO DAILY 02/04/24 04/02/24 History 1,000 mcg tablet escitalopram oxalate 10 mg tablet 10 mg PO DAILY 02/04/24 04/02/24 History fluticasone fur. 200 mcg-umeclid 1 inh inhalation DAILY 02/04/24 04/02/24 History 62.5 mcg-vilant 25 mcg inhalat.powder (Trelegy Ellipta) furosemide 40 mg tablet 40 mg PO DAILY 02/04/24 04/02/24 History levalbuterol HCl 1.25 mg/3 mL 1.25 mg inhalation Q4H PRN 02/04/24 04/02/24 History solution for nebulization Shortness Of Breath Or Wheezing lorazepam 0.5 mg tablet 0.5 mg PO Q6H PRN Agitation 02/04/24 04/02/24 History magnesium chloride 64 mg 64 mg PO BID 02/04/24 04/02/24 History (magnesium chloride) tablet,delayed release metoprolol tartrate 25 mg tablet 12.5 mg PO BID 02/04/24 04/02/24 History montelukast 10 mg tablet 10 mg PO DAILY 02/04/24 04/02/24 History pantoprazole 40 mg tablet,delayed 40 mg PO DAILY 02/04/24 04/02/24 History release pregabalin 100 mg capsule 100 mg PO BID 02/04/24 04/02/24 History diclofenac sodium 1 % topical gel 2 g topical QID shoulder pain #100 04/03/24 Rx (Voltaren Arthritis Pain) grams oxycodone 5 mg tablet 5 mg PO BID PRN pain 7 days #14 04/03/24 Rx tabs Hospital Stay Data Consultations 04/02/24 14:15 Consult Cardiology Routine 04/02/24 14:30 ED Decision to Admit Stat Diagnostic Imagining Performed 04/02/24 13:05 CT angio chest dissec wo/w con Stat 04/03/24 10:59 CT shoulder LT w con Urgent 04/03/24 11:01 CT cervical spine w con Urgent Pending Results Patient Have Any Pending Studies at Discharge: No Discharge Instructions Given to Patient (Per Discharging Provider) 1. Please follow up with outpatient PT/OT, and recommend referral to orthopaedics. 2. Cardiac pathologies have been ruled out, appreciate cardiology input. 3. Please use voltaren cream for shoulder pain, and do range of motion exercises at home. Oxycodone ordered as well. Total Time Total Time Spent Total Time Spent (In Minutes): I spent a total of 35 minutes in direct patient care, including [id number] time with the patient and/or family, reviewing medical records, ordering and reviewing diagnostic tests, and coordinating care with other healthcare providers. This time includes: history taking, physical examination, medical decision making, counseling, ECG interpretation, imaging interpretation, lab interpretation, orders, and education, excluding time spent in the performance of separately billed services.
== END 2024-04-03 18:10 | disposition home or self-care (01) | DRG 191 ==
LOC: ED 10:53 → SUATTDRO 14:18 → EDINP 14:18 → 4W 15:55

== ENCOUNTER 2024-10-19 13:25 | Inpatient (IN) ==
[2024-10-19] MEDS: ALBUT/IPRATROP 3MG/0.5MG NEB 3 ML VIAL NEB ONE ×2 (13:55→16:22)
[2024-10-19] MEDS: MAGNESIUM SULFATE / D5W 1 GM/100 ML BAG IV STA ×2 (13:59→15:59)
--- NOTE | 2024-10-19 14:02 | XRay Report ---
XR chest 1V portable CLINICAL HISTORY: sob COMPARISON STUDY: 05/14/2024 FINDINGS: Heart size and pulmonary vasculature are normal. Stable mild stranding opacity at the left lung base. No new consolidation or pleural effusion seen. No pneumothorax. IMPRESSION: No pneumonia seen. ACT 112: Negative or not required by law. Electronically signed by: Higinio Mcdonald M.D. 10/19/2024 2:01 PM
[2024-10-19 14:05] LABS: Hematocrit (blood only) 39.9 % (42.0-52.0); Hemoglobin 13.4 g/dl (14.0-18.0); Immature Granulocytes # (auto) 0.03 K/uL (0.01-0.20); Immature Granulocytes % (auto) 0.3 %; Mean Corpuscular Hemoglobin 30.9 pg (25.0-34.0); Mean Corpuscular Volume 92.1 fL (80.0-100.0); Platelet Count 263 K/uL (130-400); RDW Standard Deviation 49.7 fL (36.4-46.3); Red Blood Count 4.33 M/uL (4.70-6.10); White Blood Count 8.91 K/ul (4.8-10.8)
[2024-10-19 14:15] LABS: Base Excess VBG 3.2 mEq/L; HCO3 VBG 28 mmol/L; Oxygen Saturation VBG 98.3 %; PCO2 VBG 42 mmHg (38-50); PO2 VBG 93 mmHg; pH VBG 7.43 (7.36-7.41)
[2024-10-19 14:27] LABS: Alanine Aminotransferase 46.0 U/L (7-52); Albumin Globulin Ratio 1.1 (0.9-2); Alkaline Phosphatase 100.0 U/L (34-104); Anion Gap 7.0 (3-11); Bilirubin,Total 0.4 mg/dl (0.2-1.0); Blood Urea Nitrogen 13.0 mg/dl (6-23); Calcium 8.8 mg/dl (8.6-10.3); Carbon Dioxide 24.0 mmol/L (21-32); Chloride 107.0 mmol/L (98-107); Creatinine Clr Calc Pharmacy 83.3 ml/min; Globulin 3.2 gm/dl (2.5-4.0); Glucose 122.0 mg/dl (70-99(Fasting)); Magnesium 1.5 mg/dl (1.7-2.4); Potassium 4.3 mmol/L (3.5-5.1); Sodium 138.0 mmol/L (136-145); Total Protein 6.6 gm/dl (6.0-8.3)
[2024-10-19] MEDS: ACETAMINOPHEN 1,000 MG/100 ML VIAL IV STA (14:30)
[2024-10-19 14:56] LABS: Chlamydia pneumoniae PCR Not Detected (NotDetected); Coronavirus 229E PCR Not Detected (NotDetected); Coronavirus CoV-2 (COVID19)PCR Not Detected (NotDetected); Coronavirus HKU1 PCR Not Detected (NotDetected); Coronavirus NL63 PCR Not Detected (NotDetected); Coronavirus OC43PCR Not Detected (NotDetected); Human Metapneumovirus PCR Not Detected (NotDetected); Parainfluenza Virus 1 PCR Not Detected (NotDetected); Parainfluenza Virus 2 PCR Not Detected (NotDetected); Parainfluenza Virus 3 PCR Not Detected (NotDetected); Parainfluenza Virus 4 PCR Not Detected (NotDetected); Respiratory Syncytial VirusPCR Not Detected (NotDetected); Rhinovirus/Enterovirus PCR DETECTED (NotDetected)
[2024-10-19] MEDS: SODIUM CHLORIDE 0.9% 500 ML IV ONE (15:09)
--- NOTE | 2024-10-19 15:25 | Emergency Department Note ---
Impression & Plan Dyspnea, Acute exacerbation of chronic obstructive pulmonary disease (COPD), URI (upper respiratory infection) ED Provider Note ED Provider Note NAME: ANGELES BURLESON AGE:68 SEX: Male : 1955 ARRIVES VIA: Eprivate vehicle INFORMANT: Patient ED PROVIDER(s): Francy Rushing DO CHIEF COMPLAINT: shortness of breath HPI: This is a 68-year-old male who presents to the emergency department due to concern for shortness of breath. Patient notes he is having worsening symptoms over the course of the last week. He states he said increased frequency of cough as well as increased sputum production. He notes green and yellow sputum, no hemoptysis. He states today began feeling tight in the chest. He states he does use MDI/nebulizers at home and has been using them with some temporary relief. He denies any known sick contacts. He denies fevers, chills, vomiting, diarrhea, abdominal pain, or leg swelling. He states no recent change in medications. No recent travel. Patient states he does follow with Dr. Irwin as he does have a history of COPD. He states he does have an emergency kit at home but did not take that. PAST MEDICAL HISTORY:See Below PAST SURGICAL HISTORY:See Below FAMILY HISTORY:See Below SOCIAL HISTORY:See Below HOME MEDICATIONS:See Below ALLERGIES:See Below VITALS:See Below PHYSICAL EXAMINATION: GENERAL: alert, well appearing, well nourished, no distress, non-toxic EYE EXAM: normal conjunctiva, PERRL and EOM's grossly intact OROPHARYNX: no exudate, no erythema, lips, buccal mucosa, and tongue normal and mucous membranes are moist NECK: supple, no nuchal rigidity, no adenopathy, non-tender LUNGS: Normal chest wall mechanics, b/l faint rhonchi and scattered b/l wheeze, increased work of breathing, tachypnea HEART: no murmurs, S1 normal and S2 normal ABDOMEN: abdomen soft, non-tender, normo-active bowel sounds, no masses, no rebound or guarding. BACK: Back is symmetrical on inspection and there is no deformity, no midline tenderness, no CVA tenderness. SKIN: no rashes, petechiae, orbruising UPPER EXTREMITIES: upper extremities are grossly normal. FROM, nml pulses b/l. LOWER EXTREMITIES: No pitting edema. FROM, nml pulses b/l. NEURO EXAM: Normal sensorium, cranial nerves II-XII grossly intact, normal speech, no facial droop,nogross weakness of arms, no gross weakness of legs. Gross sensation intact. No ataxia. Vital Signs: reviewed and remarkable Differential Diagnosis: pneumonia, bronchitis, COPD/Asthma exacerbation, pneumothorax, pulmonary embolism, congestive heart failure, acute coronary syndrome, as well as others were considered MEDICAL DECISION MAKING: This is a 68-year-old male presents the emergency department due to worsening shortness of breath. Patient was afebrile and hemodynamically stable, he was noted to be tachycardic with increased work of breathing. Labs drawn and sent, IV established, EKG and chest ray performed at bedside and interpreted by me and the patient was monitored on telemetry. He was started on a continuous nebulizer treatment, given IV Solu-Medrol and is using the same. Patient then started on IV fluids. He initially had improvement of his symptoms, however while continuing to monitor he slowly began to have increased work of breathing and tachypnea again. Patient's wheezing began to worsen. Patient placed on BiPAP and a second continuous nebulizer was run through this. He was given additional Solu-Medrol to make sure he had 1 mg/kg of steroids. Patient maintained on maintenance IV fluids. Patient improved following this additionally. A nasal swab had been obtained and sent for a viral respiratory panel and was positive for enterovirus/rhinovirus. We discussed all results at bedside as well as need for further inpatient monitoring and evaluation. Given patient's extensive pulmonary history he was in agreement. Case discussed with the hospitalist team for further evaluation and management. Consultation(s): 1625: Discussed with RT Mark. Patient comfortable now on BiPAP at 14/5, 50%. 1635: Discussed with Adam Arnold hospitalist team, for additional evaluation and management. ER Treatment Provided: See below 1545: After initial improvement with nebulizer and medications. Patient starting to have increased wheezing, tachypnea, increased work of breathing again. Will give additional nebulizer, Solu-Medrol dose, and additional airway support. I did contact RT to discuss the high flow nasal cannula versus BiPAP which we will trial with patient. Diagnostics Interpreted By Me: -ECG: Sinus tachycardia at 110, normal axis, normal intervals, no acute ST/T wave changes -Cardiac Monitoring: An order was placed for continuous cardiac monitoring. The monitor shows a rate of 108 with sinus tachycardia rhythm. -Laboratory studies: As stated above and show below. -Imaging studies: X-ray Chest: A single view study of the chest was reviewed and was negative for cardiomegaly, focal infiltrate, effusion, pulmonary edema, or wide mediastinum. Triage Nursing Note Reviewed Prior/Outside Records Reviewed -echo from January 2024 reviewed Critical Care: Critical care of 44 min performed to assess and manage high likelihood of life-threatening dyspnea, involving labs and imaging performed with assessment to evaluate dyspnea diagnosis with frequent reassessment. This time includes bedside time, treatment discussions with patient/family/consultants, documentation time and excludes procedure time. Past Med/Surg History Problem List (Updated 10/20/24 @ 12:15 by Demetri Alegre MD) TAYLOR on CPAP Tobacco abuse counseling Acute viral bronchiolitis URI (upper respiratory infection) (Acute) Acute exacerbation of chronic obstructive pulmonary disease (COPD) (Acute) Dyspnea (Acute) H/O elbow surgery R radial head ORIF prior to 2009; R elbow I&D 08/05/23: GA: MAC#4, ETT#7.5HiLo, Gr View 1 Left elbow joint crepitus Osteoarthritis of right elbow Chest pain (Acute) Chronic pain syndrome Left shoulder pain Non-cardiac chest pain Combined pulmonary fibrosis and emphysema (CPFE) Hypotension (Acute) Acute exacerbation of chronic obstructive pulmonary disease (COPD) (Acute) SOB (shortness of breath) (Acute) Chest pain (Acute) Nonsustained ventricular tachycardia Right elbow pain Hypomagnesemia (Acute) COPD (chronic obstructive pulmonary disease) (Acute) Pulmonary embolism (Acute) Olecranon bursitis, right elbow Acute exacerbation of chronic obstructive pulmonary disease (COPD) (Acute) 10/09/23-10/11/23 admission Acute on chronic hypoxic respiratory failure (Acute) 10/09/23-10/11/23 admission COPD exacerbation Type 2 diabetes mellitus Septic arthritis of elbow, right Elevated LFTs Thrombus of aorta (Acute) Current smoker Chronic bronchitis COPD with emphysema Multiple pulmonary nodules Pulmonary nodule seen on imaging study Compression fracture of L5 vertebra Closed fracture of radial head (Acute) Closed compression fracture of lumbar vertebra (Acute) Nasal polyp Acquired deviated nasal septum (Acute) Arthritis (Acute) Cervical radiculopathy (Acute) Chronic post-thoracotomy pain (Acute) Chronic sinusitis (Acute) Hypertrophy of nasal turbinates (Acute) Obesity (Acute) Post-nasal drip Chronic - stable Tobacco abuse Viral upper respiratory illness hx HLD (hyperlipidemia) (Chronic) TAYLOR (obstructive sleep apnea) Cannot tolerate device Anxiety (Chronic) Neuropathy (Chronic) GERD (gastroesophageal reflux disease) (Chronic) Well controlled and stable Diaphragmatic hernia (Chronic) Thoracic spinal stenosis (Chronic) Hypertension (Chronic) Medical History Hyperglycemia Ha1c 6.2% 10/10/23 labs; no mention of DMII by PCP Cigarette smoker Obesity 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 Saw vascular: started on [id number] and Eliquis. Eliquis was then D/C by pulmonary 04/2023. Pt had normal f/u chest CTA 06/20/23 Irregular cardiac rhythm pt noted to have 25beats of Nonsustained VTach vs PAT day of discharge (08/09/23) [facility]; pt denied sx; started on metoprolol and ordered Zio monitor and Cardio referral Peripheral vascular disease Chronic diastolic heart failure PCP monitoring; ECHO 10/03/23 with nl EF and Gr I DD. 'no changes to medications needed at this time. Continue lasix daily' per PCP Chronic back pain "hx broken back"no back surgery Arthritis GERD (gastroesophageal reflux disease) Hx pulmonary embolism 2017 developed after a bad fall (was on coumadin for 1 year) Cardiac murmur no significant valve disease per 10/03/23 ECHO Hypertension Hyperlipidemia Chronic obstructive pulmonary disease 'group D' per pulm. Pt admitted [facility] for COPD exacerbation 10/08-10/11/23; admitted [facility] for COPD exacerbation (also had COVID at the time): 09/22- 09/25/23; admitted for COPD exacerbation 05/17-05/21/23 Asthma required rescue inhaler "just the other day" Chronic respiratory failure On oxygen at night in the past - but no longer needs per patient . Per 10/18/23 PCP note, 'pt stable from a respiratory standpoint' Hx of migraines Sleep apnea 2L O2 HS (no other device) History of COVID-19 Admitted [facility] 09/22-09/25/23 COVID+ and COPD exacerbation; pt states no longer having COVID sx Pneumothorax Hx- complication from pain injection- resolved Histoplasmosis 2003- treated Surgical History H/O hernia repair History of esophagogastroduodenoscopy (EGD) Hx of colonoscopy History of open reduction and internal fixation (ORIF) procedure right shoulder History of total replacement of left shoulder joint History of sinus surgery History of placement of chest tube History of hand surgery right/left Left femoral shaft fracture Dutch placed>hardware intact H/O total hip arthroplasty left H/O elbow surgery R radial head ORIF prior to 2009; R elbow I&D 08/05/23: GA: MAC#4, ETT#7.5HiLo, Gr View 1 H/O exploratory thoracotomy "Left thoracotomy wedge biopsy of left upper lobe with excision of lesion or nodule & frozen section 2002" H/O [facility] [place] incarcerated supraumbilical hernia repair open no mesh 02/17/01 Family History Father Heart disease Hypertension Brother Heart disease Cancer Hypertension Stroke Mother Cancer Other Leukemia No family history of adverse response to anesthesia No family history of bleeding disorder Non-Hodgkin lymphoma Denies family history of Hearing loss Asthma Social History Smoking Status: Current every day smoker Tobacco Type: Cigarettes Age Started Using Tobacco: 11; packs per day: 1; Cigarettes Per Day: 10 cig daily>advised; Second Hand Exposure: No; Do You Dip or Chew Tobacco: No; Hx Alcohol Use: No Hx Substance Use: No Preferred Language: Greek Communication Ability: Effective Patient Services Coordinator Required: No Beliefs That Will Affect Care: None marital status: Current Living Situation: Spouse current occupational status: unemployed Feels Safe at Home: Yes Assistive Devices: None Allergies Allergies Allergy/AdvReac Type Severity Reaction Status Date / Time No Known Allergies Allergy Verified 08/29/24 12:29 Home Meds Home Medications Medication Instructions Recorded Confirmed apixaban 5 mg tablet (Eliquis) 5 mg PO BID 02/04/24 10/19/24 aspirin 81 mg tablet,delayed 81 mg PO DAILY 02/04/24 10/19/24 release cyanocobalamin (vitamin B-12) 1,000 mcg PO DAILY 02/04/24 10/19/24 1,000 mcg tablet furosemide 40 mg tablet 40 mg PO DAILY PRN FLUID 02/04/24 10/19/24 RETENTION/WT GAIN lorazepam 0.5 mg tablet 0.5 mg PO Q6H PRN Agitation 02/04/24 10/19/24 magnesium chloride 64 mg 0 mg PO BID 02/04/24 10/19/24 (magnesium chloride) tablet,delayed release metoprolol tartrate 25 mg tablet 12.5 mg PO BID 02/04/24 10/19/24 pantoprazole 40 mg tablet,delayed 40 mg PO BID 02/04/24 10/19/24 release pregabalin 100 mg capsule 100 mg PO BID 02/04/24 10/19/24 Lactobacillus acidophilus 250 0 mmu cells PO DAILY 05/15/24 10/19/24 million cell capsule (Probiotic Acidophilus) albuterol sulfate 2.5 mg/3 mL 2.5 mg inhalation DIRECTED PRN 05/15/24 10/19/24 (0.083 %) solution for nebulization Shortness Of Breath Or Wheezing baclofen 5 mg tablet 0 mg PO TID PRN MUSCLE SPASMS 05/15/24 10/19/24 clobetasol 0.05 % topical ointment 1 applic topical BID PRN RASH ON 05/15/24 10/19/24 LEGS cyclobenzaprine 5 mg tablet 5 mg PO TID PRN MUSCLE SPASMS 05/15/24 10/19/24 loperamide 2 mg tablet (Imodium 2 mg PO TID PRN Diarrhea 05/15/24 10/19/24 A-D) meclizine 12.5 mg tablet 12.5 mg PO TID PRN 05/15/24 10/19/24 DIZZINESS/VERTIGO ondansetron HCl 8 mg tablet 8 mg PO Q8H PRN NAUSEA/VOMITING 05/15/24 10/19/24 oxycodone 10 mg tablet 10 mg PO Q6H PRN Pain 05/15/24 10/19/24 prochlorperazine maleate 5 mg 5 mg PO Q6H PRN NAUSEA/VOMITING 05/15/24 10/19/24 tablet (Compazine) albuterol sulfate 90 mcg/actuation 1 puff inhalation UD PRN sob 10/19/24 10/19/24 aerosol inhaler dupilumab 300 mg/2 mL subcutaneous 0 mg subcut .[id number] 10/19/24 10/19/24 pen injector (Dupixent) etanercept 50 mg/mL (1 mL) 50 mg subcut UD 10/19/24 10/19/24 subcutaneous pen injector (Enbrel SureClick) fluticasone fur. 200 mcg-umeclid 0 inh inhalation DAILY 10/19/24 10/19/24 62.5 mcg-vilant 25 mcg inhalat.powder (Trelegy Ellipta) tamsulosin 0.4 mg capsule 0.4 mg PO DAILY 10/19/24 10/19/24 Previous Rx's Medication Instructions Recorded CPAP Machine #1 ea 07/06/24 CPAP Supplies #1 ea 07/06/24 albuterol sulfate 90 mcg/actuation 2 puff inhalation Q4H PRN 09/04/24 aerosol inhaler Shortness Of Breath Or Wheezing #8.5 grams montelukast 10 mg tablet 10 mg PO DAILY #90 tabs 09/04/24 Results & Data (ED) Vital Signs Vital Signs - 24 hr 10/19/24 13:26 10/19/24 13:30 10/19/24 13:42 Temperature 36.6 C Temperature Source Temporal Artery Scan Pulse Rate 112 H 105 H Pulse Rate [Apical] Pulse Rate from SpO2 Sensor Respiratory Rate 20 Respiratory Effort / Characteristics Non-Labored Spontaneous Respiratory Depth Normal Respiratory Pattern Regular Blood Pressure Blood Pressure [Right Arm] Blood Pressure Mean Blood Pressure Mean [Right Arm] Pulse Oximetry 94 94 Oxygen Delivery Method Room Air Room Air Oxygen Flow Rate Fraction of Inspired Oxygen Sepsis Recent Fever Within 48 Hours No Sepsis New/Unexplained Change in Mental Status N/A Sepsis Action Taken by Nursing No Action Required 10/19/24 13:43 10/19/24 13:57 10/19/24 14:01 Temperature Temperature Source Pulse Rate 100 H Pulse Rate [Apical] 104 H Pulse Rate from SpO2 Sensor 99 H Respiratory Rate 22 21 Respiratory Effort / Characteristics Respiratory Depth Respiratory Pattern Blood Pressure 136/66 Blood Pressure [Right Arm] 123/79 Blood Pressure Mean 109 Blood Pressure Mean [Right Arm] 93 Pulse Oximetry 96 98 Oxygen Delivery Method Nasal Cannula Nebulizer Oxygen Flow Rate 2 Fraction of Inspired Oxygen Sepsis Recent Fever Within 48 Hours Sepsis New/Unexplained Change in Mental Status Sepsis Action Taken by Nursing 10/19/24 14:03 10/19/24 14:21 10/19/24 14:30 Temperature Temperature Source Pulse Rate 101 H Pulse Rate [Apical] 98 H Pulse Rate from SpO2 Sensor 101 H Respiratory Rate 23 22 Respiratory Effort / Characteristics Spontaneous Short of Breath Respiratory Depth Respiratory Pattern Blood Pressure 104/63 Blood Pressure [Right Arm] Blood Pressure Mean 85 Blood Pressure Mean [Right Arm] Pulse Oximetry 94 99 Oxygen Delivery Method Nasal Cannula Nebulizer Oxygen Flow Rate 3 Fraction of Inspired Oxygen Sepsis Recent Fever Within 48 Hours Sepsis New/Unexplained Change in Mental Status Sepsis Action Taken by Nursing 10/19/24 15:00 10/19/24 15:30 10/19/24 16:00 Temperature Temperature Source Pulse Rate 103 H Pulse Rate [Apical] 110 H Pulse Rate from SpO2 Sensor Respiratory Rate 19 22 Respiratory Effort / Characteristics Respiratory Depth Respiratory Pattern Blood Pressure 106/58 L 98/49 L Blood Pressure [Right Arm] 86/57 L Blood Pressure Mean 67 67 Blood Pressure Mean [Right Arm] 66 Pulse Oximetry 98 96 Oxygen Delivery Method Nasal Cannula Nasal Cannula Oxygen Flow Rate 2 2 Fraction of Inspired Oxygen Sepsis Recent Fever Within 48 Hours Sepsis New/Unexplained Change in Mental Status Sepsis Action Taken by Nursing 10/19/24 16:00 10/19/24 16:07 10/19/24 16:19 Temperature Temperature Source Pulse Rate 102 H Pulse Rate [Apical] Pulse Rate from SpO2 Sensor 105 H Respiratory Rate 21 Respiratory Effort / Characteristics Respiratory Depth Respiratory Pattern Blood Pressure 92/70 L 105/43 L Blood Pressure [Right Arm] Blood Pressure Mean 81 59 Blood Pressure Mean [Right Arm] Pulse Oximetry 93 Oxygen Delivery Method Oxygen Flow Rate Fraction of Inspired Oxygen Sepsis Recent Fever Within 48 Hours Sepsis New/Unexplained Change in Mental Status Sepsis Action Taken by Nursing 10/19/24 16:25 10/19/24 16:25 Temperature Temperature Source Pulse Rate 99 H Pulse Rate [Apical] 99 H Pulse Rate from SpO2 Sensor Respiratory Rate 17 16 Respiratory Effort / Characteristics Spontaneous Short of Breath SOB on Exertion Spontaneous Short of Breath SOB on Exertion Respiratory Depth Normal Respiratory Pattern Regular Blood Pressure Blood Pressure [Right Arm] Blood Pressure Mean Blood Pressure Mean [Right Arm] Pulse Oximetry 95 95 Oxygen Delivery Method BiPAP Oxygen Flow Rate Fraction of Inspired Oxygen 50 50 Sepsis Recent Fever Within 48 Hours Sepsis New/Unexplained Change in Mental Status Sepsis Action Taken by Nursing Laboratory Data 10/20/24 05:43 10/20/24 07:38 Lab Results 10/19/24 10/19/24 10/19/24 Range/Units 13:30 14:05 14:31 WBC 8.91 (4.8-10.8) K/ul RBC 4.33 L (4.70-6.10) M/uL Hgb 13.4 L (14.0-18.0) g/dl Hct 39.9 L (42.0-52.0) % MCV 92.1 (80.0-100.0) fL MCH 30.9 (25.0-34.0) pg MCHC 33.6 (32.0-36.0) g/dL RDW Std Deviation 49.7 H (36.4-46.3) fL RDW Coeff of Jaz 14.6 H (11.5-14.5) % Plt Count 263 (130-400) K/uL MPV 11.2 (9.4-12.4) fL Immature Gran % (Auto) 0.3 % Neut % (Auto) 63.6 % Lymph % (Auto) 18.6 % [place] % (Auto) 15.2 % Eos % (Auto) 1.7 % Baso % (Auto) 0.6 % Neut # (Auto) 5.67 (1.40-6.50) K/uL Lymph # (Auto) 1.66 (1.20-3.40) K/uL [place] # (Auto) 1.35 H (0.11-0.59) K/uL Eos # (Auto) 0.15 (0.00-0.50) K/uL Baso # (Auto) 0.05 (0.00-0.20) K/uL Immature Gran # (Auto) 0.03 (0.01-0.20) K/uL PT Cancelled Cancelled INR Cancelled Cancelled VBG pH 7.43 H (7.36-7.41) VBG pCO2 42 (38-50) mmHg VBG pO2 93 mmHg VBG HCO3 28 mmol/L VBG O2 Saturation 98.3 % VBG Base Excess 3.2 mEq/L Sodium 138 (136-145) mmol/L Potassium 4.3 (3.5-5.1) mmol/L Chloride 107 (98-107) mmol/L Carbon Dioxide 24 (21-32) mmol/L Anion Gap 7 (3-11) BUN 13 (6-23) mg/dl Creatinine 0.88 (0.6-1.4) mg/dl Est Cr Clr Drug Dosing 83.3 ml/min eGFR 92.51 BUN/Creatinine Ratio 14.8 (10-20) Glucose 122 H (70-99(Fasting)) mg/dl Calcium 8.8 (8.6-10.3) mg/dl Magnesium 1.5 L (1.7-2.4) mg/dl Total Bilirubin 0.4 (0.2-1.0) mg/dl AST 52 H (13-39) U/L ALT 46 (7-52) U/L Alkaline Phosphatase 100 (34-104) U/L Troponin I High Sens 6.6 (0-20) pg/ml B-Natriuretic Peptide 41 (0-100) pg/ml Total Protein 6.6 (6.0-8.3) gm/dl Albumin 3.4 (3.4-5.0) gm/dl Globulin 3.2 (2.5-4.0) gm/dl Albumin/Globulin Ratio 1.1 (0.9-2) Adenovirus (PCR) Not Detected (NotDetected) B. pertussis DNA (PCR) Not Detected (NotDetected) B.parapertussis DNA PCR Not Detected (NotDetected) C. pneumoniae DNA (PCR) Not Detected (NotDetected) Coronavirus OC43 (PCR) Not Detected (NotDetected) Coronavirus HKU1 (PCR) Not Detected (NotDetected) Coronavirus 229E (PCR) Not Detected (NotDetected) SARS-CoV-2 (PCR) Not Detected (NotDetected) Coronavirus NL63 (PCR) Not Detected (NotDetected) Human Metapneumovir PCR Not Detected (NotDetected) Influenza Type A (PCR) Not Detected (NotDetected) Influenza Type B (PCR) Not Detected (NotDetected) M. pneumoniae (PCR) Not Detected (NotDetected) Parainfluenza 1 (PCR) Not Detected (NotDetected) Parainfluenza 2 (PCR) Not Detected (NotDetected) Parainfluenza 3 (PCR) Not Detected (NotDetected) Parainfluenza 4 (PCR) Not Detected (NotDetected) RSV (PCR) Not Detected (NotDetected) Entero/Rhino (PCR) DETECTED A (NotDetected) 10/19/24 Range/Units 16:10 WBC (4.8-10.8) K/ul RBC (4.70-6.10) M/uL Hgb (14.0-18.0) g/dl Hct (42.0-52.0) % MCV (80.0-100.0) fL MCH (25.0-34.0) pg MCHC (32.0-36.0) g/dL RDW Std Deviation (36.4-46.3) fL RDW Coeff of Jaz (11.5-14.5) % Plt Count (130-400) K/uL MPV (9.4-12.4) fL Immature Gran % (Auto) % Neut % (Auto) % Lymph % (Auto) % [place] % (Auto) % Eos % (Auto) % Baso % (Auto) % Neut # (Auto) (1.40-6.50) K/uL Lymph # (Auto) (1.20-3.40) K/uL [place] # (Auto) (0.11-0.59) K/uL Eos # (Auto) (0.00-0.50) K/uL Baso # (Auto) (0.00-0.20) K/uL Immature Gran # (Auto) (0.01-0.20) K/uL PT 10.7 INR 1.0 VBG pH (7.36-7.41) VBG pCO2 (38-50) mmHg VBG pO2 mmHg VBG HCO3 mmol/L VBG O2 Saturation % VBG Base Excess mEq/L Sodium (136-145) mmol/L Potassium (3.5-5.1) mmol/L Chloride (98-107) mmol/L Carbon Dioxide (21-32) mmol/L Anion Gap (3-11) BUN (6-23) mg/dl Creatinine (0.6-1.4) mg/dl Est Cr Clr Drug Dosing ml/min eGFR BUN/Creatinine Ratio (10-20) Glucose (70-99(Fasting)) mg/dl Calcium (8.6-10.3) mg/dl Magnesium (1.7-2.4) mg/dl Total Bilirubin (0.2-1.0) mg/dl AST (13-39) U/L ALT (7-52) U/L Alkaline Phosphatase (34-104) U/L Troponin I High Sens (0-20) pg/ml B-Natriuretic Peptide (0-100) pg/ml Total Protein (6.0-8.3) gm/dl Albumin (3.4-5.0) gm/dl Globulin (2.5-4.0) gm/dl Albumin/Globulin Ratio (0.9-2) Adenovirus (PCR) (NotDetected) B. pertussis DNA (PCR) (NotDetected) B.parapertussis DNA PCR (NotDetected) C. pneumoniae DNA (PCR) (NotDetected) Coronavirus OC43 (PCR) (NotDetected) Coronavirus HKU1 (PCR) (NotDetected) Coronavirus 229E (PCR) (NotDetected) SARS-CoV-2 (PCR) (NotDetected) Coronavirus NL63 (PCR) (NotDetected) Human Metapneumovir PCR (NotDetected) Influenza Type A (PCR) (NotDetected) Influenza Type B (PCR) (NotDetected) M. pneumoniae (PCR) (NotDetected) Parainfluenza 1 (PCR) (NotDetected) Parainfluenza 2 (PCR) (NotDetected) Parainfluenza 3 (PCR) (NotDetected) Parainfluenza 4 (PCR) (NotDetected) RSV (PCR) (NotDetected) Entero/Rhino (PCR) (NotDetected) Administered Medications Albuterol (Albut/Ipratrop 3mg/0.5mg Neb 3 Ml Vial) 3 ml INH Q6R YUN Stop: 11/18/24 19:15 Last Admin: 10/20/24 13:23 Dose: 3 ml Documented By: Admin: 10/20/24 07:05 Dose: 3 ml Documented By: Admin: 10/20/24 01:54 Dose: 3 ml Documented By: Admin: 10/19/24 20:07 Dose: 3 ml Documented By: MATT Apixaban (Apixaban 5 Mg Tablet) 5 mg PO BID YUN Stop: 11/18/24 20:59 Last Admin: 10/20/24 07:45 Dose: 5 mg Documented By: Admin: 10/19/24 21:56 Dose: 5 mg Documented By: EUGENE Aspirin (Aspirin 81 Mg Ectab) 81 mg PO DAILY YUN Stop: 11/19/24 08:59 Last Admin: 10/20/24 07:48 Dose: 81 mg Documented By: OSMIN Cyanocobalamin (Cyanocobalamin (B-12) 500 Mcg Tablet) 1,000 mcg PO DAILY YUN Stop: 11/19/24 08:59 Last Admin: 10/20/24 07:47 Dose: 1,000 mcg Documented By: OSMIN Guaifenesin (Guaifenesin 600 Mg Tabcr) 1,200 mg PO BID YUN Stop: 11/18/24 20:59 Last Admin: 10/20/24 08:48 Dose: 1,200 mg Documented By: Admin: 10/19/24 21:56 Dose: 1,200 mg Documented By: EUGENE Methylprednisolone 40 mg/ (Syringe) 0.64 mls @ 1.5 mls/min IV BID YUN Stop: 11/19/24 05:59 Last Admin: 10/20/24 07:48 Dose: 1.5 mls/min Documented By: Admin: 10/20/24 05:59 Dose: 1.5 mls/min Documented By: EUGENE Magnesium Chloride (Magnesium Chloride W/Calcium 64mg Delayed Rel Tab) 64 mg PO BID YUN Stop: 11/18/24 20:59 Last Admin: 10/20/24 07:45 Dose: 64 mg Documented By: Admin: 10/19/24 21:56 Dose: 64 mg Documented By: EUGENE Metoprolol Tartrate (Metoprolol Tartrate 25 Mg Tab) 12.5 mg PO BID YUN Stop: 11/18/24 20:59 Last Admin: 10/20/24 07:45 Dose: 12.5 mg Documented By: Admin: 10/19/24 21:56 Dose: 12.5 mg Documented By: EUGENE Miscellaneous (Remove Nicoderm Patch) 1 each N/A DAILY@0859 YUN Stop: 11/19/24 08:58 Last Admin: 10/20/24 08:48 Dose: 1 each Documented By: OSMIN Nicotine (Nicotine 7 Mg/24 Hr Tdsy) 1 patch TD QAM YUN Stop: 11/18/24 19:29 Last Admin: 10/20/24 07:48 Dose: 1 patch Documented By: Admin: 10/19/24 21:57 Dose: Not Given Documented By: EUGENE Pantoprazole Sodium (Pantoprazole 40 Mg Tab) 40 mg PO BID YUN Stop: 11/18/24 20:59 Last Admin: 10/20/24 07:48 Dose: 40 mg Documented By: Admin: 10/19/24 21:57 Dose: 40 mg Documented By: EUGENE Pregabalin (Pregabalin 100 Mg Cap) 100 mg PO BID YUN Stop: 11/18/24 20:59 Last Admin: 10/20/24 08:59 Dose: 100 mg Documented By: Admin: 10/19/24 21:56 Dose: 100 mg Documented By: EUGENE Tamsulosin HCl (Tamsulosin Hcl 0.4 Mg Cap) 0.4 mg PO DAILY YUN Stop: 11/19/24 08:59 Last Admin: 10/20/24 07:48 Dose: 0.4 mg Documented By: OSMIN Discontinued Medications Albuterol (Albut/Ipratrop 3mg/0.5mg Neb 3 Ml Vial) 12 ml NEB ONE ONE; Protocol Stop: 10/19/24 13:46 Last Admin: 10/19/24 13:55 Dose: 12 ml Documented By: KELLY Albuterol (Albut/Ipratrop 3mg/0.5mg Neb 3 Ml Vial) 12 ml NEB ONE ONE; Protocol Stop: 10/19/24 15:46 Last Admin: 10/19/24 16:22 Dose: 12 ml Documented By: KLAUS Fentanyl Citrate (Fentanyl Citrate Pf 100 Mcg/2 Ml Vial) 50 mcg IV Q15M PRN PRN Reason: Pain Stop: 11/02/24 15:18 Last Admin: 10/19/24 16:03 Dose: 50 mcg Documented By: QGV Magnesium Sulfate/Dextrose (Magnesium Sulfate / D5w) 1 gm in 100 mls @ 100 mls/hr IV NOW STA Stop: 10/19/24 14:44 Last Infusion: 10/19/24 15:01 Dose: Infused Documented By: Admin: 10/19/24 13:59 Dose: 100 mls/hr Documented By: KELLY Acetaminophen (Ofirmev) 1,000 mg in 100 mls @ 400 mls/hr IV NOW STA Stop: 10/19/24 14:37 Last Infusion: 10/19/24 14:45 Dose: Infused Documented By: Admin: 10/19/24 14:30 Dose: 400 mls/hr Documented By: KELLY Sodium Chloride (Nss) 500 mls @ 999 mls/hr IV .Q31M ONE Stop: 10/19/24 15:36 Last Infusion: 10/19/24 15:40 Dose: Infused Documented By: Admin: 10/19/24 15:09 Dose: 999 mls/hr Documented By: KELLY Sodium Chloride (Nss) 1,000 mls @ 125 mls/hr IV .Q8H YUN Stop: 10/22/24 15:44 Last Infusion: 10/20/24 17:17 Dose: Infused Documented By: Infusion: 10/20/24 17:16 Dose: 0 mls/hr Documented By: Admin: 10/20/24 15:10 Dose: 125 mls/hr Documented By: Infusion: 10/20/24 13:59 Dose: Infused Documented By: Admin: 10/20/24 05:59 Dose: 125 mls/hr Documented By: TJCady Infusion: 10/20/24 05:59 Dose: Infused Documented By: TJCady Admin: 10/20/24 00:33 Dose: 125 mls/hr Documented By: Infusion: 10/20/24 00:00 Dose: Infused Documented By: Admin: 10/19/24 16:00 Dose: 125 mls/hr Documented By: QGV Magnesium Sulfate/Dextrose (Magnesium Sulfate / D5w) 1 gm in 100 mls @ 100 mls/hr IV NOW STA Stop: 10/19/24 16:41 Last Infusion: 10/19/24 16:59 Dose: Infused Documented By: Admin: 10/19/24 15:59 Dose: 100 mls/hr Documented By: QGV Acetaminophen (Ofirmev) 1,000 mg in 100 mls @ 400 mls/hr IV Q8H PRN PRN Reason: Pain Stop: 10/22/24 18:44 Last Infusion: 10/19/24 19:45 Dose: Infused Documented By: Admin: 10/19/24 19:28 Dose: 400 mls/hr Documented By: MED Magnesium Sulfate/Dextrose (Magnesium Sulfate / D5w) 1 gm in 100 mls @ 50 mls/hr IV Q2H YUN Stop: 10/20/24 12:14 Last Infusion: 10/20/24 13:07 Dose: Infused Documented By: Admin: 10/20/24 11:00 Dose: 50 mls/hr Documented By: Infusion: 10/20/24 10:59 Dose: Infused Documented By: Admin: 10/20/24 08:59 Dose: 50 mls/hr Documented By: OSMIN Lactated Ringer's (Lr) 500 mls @ 999 mls/hr IV .Q31M ONE Stop: 10/20/24 16:43 Last Infusion: 10/20/24 16:59 Dose: Infused Documented By: Admin: 10/20/24 16:31 Dose: 999 mls/hr Documented By: OSMIN Methylprednisolone (Methylprednisolone 125 Mg/2 Ml Vial) 60 mg IV NOW STA Stop: 10/19/24 13:46 Last Admin: 10/19/24 13:57 Dose: 60 mg Documented By: KELLY Methylprednisolone (Methylprednisolone 125 Mg/2 Ml Vial) 40 mg IV NOW STA Stop: 10/19/24 15:46 Last Admin: 10/19/24 16:00 Dose: 40 mg Documented By: QGV Imaging Data Radiologist's Impression: Chest X-Ray 10/19/24 13:45 XR chest 1V portable CLINICAL HISTORY: sob COMPARISON STUDY: 05/14/2024 FINDINGS: Heart size and pulmonary vasculature are normal. Stable mild stranding opacity at the left lung base. No new consolidation or pleural effusion seen. No pneumothorax. IMPRESSION: No pneumonia seen. ACT 112: Negative or not required by law. Electronically signed by: Higinio Mcdonald M.D. 10/19/2024 2:01 PM Discharge Plan Visit Data Chief Complaint: Shortness of Breath/Dyspnea Stated Complaint: SOB, CHEST PAIN ED Provider: Francy Rushing Discharge Problem: Dyspnea, Acute exacerbation of chronic obstructive pulmonary disease (COPD), URI (upper respiratory infection) Patient Disposition: Admitted As Inpatient Condition: Fair Discharge Instructions Interventions: ED Discharge Assessment Last Done: 10/19/24 19:17
[2024-10-19] MEDS: SODIUM CHLORIDE 0.9% 1,000 ML IV SCH (16:00)
--- NOTE | 2024-10-19 16:53 | History & Physical Report ---
Date of Service October 19, 2024 Assessment & Plan (1) Acute exacerbation of chronic obstructive pulmonary disease (COPD): Plan: Patient is a 68 year old M with a past medical history of dyslipidemia, prediabetes, COPD with emphysema, current tobacco user, pulmonary nodules, obstructive sleep apnea on oxygen nightly with CPAP, chronic heart failure with preserved ejection fraction, GERD, history of septic arthritis, chronic pain syndrome, history of PE, depression presenting with cough, chest tightness, respiratory distress x 1 week. Symptoms began 1 week ago with a cough that progressively worsened to shortness of breath with chest tightness, discolored sputum noted at home. Required 2 LPM oxygen at home, but typically does not need supplemental oxygen nightly. Albuterol nebs use 4x/day with minimal improvement. Follows Dr. Irwin with Pulmonary. Also reporting to have a headache, mostly behind right eye without visual changes. Endorses left chest pain, worse with inspiration, that travelled to left shoulder last night. #Acute exacerbation of COPD 2/2 Rhinovirus URI #Combined pulmonary fibrosis and emphysema * Admit to PCU for further management * Presenting w/ cough, discolored mucous, tightness, hypoxia-> given duoneb x 2, IV steroids with some clinical improvement; relapsed in ED and then required Bipap support * On exam, noted to have prolonged expir phase, I/E wheeze, nonproductive cough * Chest Xray showing Stable mild stranding opacity at the left lung base. No new consolidation or pleural effusion seen. No pneumo * BioFire + Rhino * VBG ok with pH 7.43, CO2 42, O2 93, CO3 28, Base 3.2 * Continue Bipap with current settings: 10/12 with 40% oxygen support, Wean when able per protocol * Supplemental oxygen as needed to maintain sats >90% * Routine Pulmonary consult placed for additional recs on Bipap support weaning * Plan to transition to home CPAP when able * On biologics at home- hold while inpatient; will give Duonebs sched Q6H * Methylpred 40 mg IV twice daily ordered * Hypertonic saline nebs as needed; Flutter valve QID for pulmonary toileting * Mucinex scheduled BID * NPO given respiratory failure; advance as tolerated #Chronic diastolic heart failure #Hypertension * BLE edema with shortness on breath on exam; takes lasix as needed at home; Will give Lasix 40 mg x 1 today * Reporting left chest pain on exam, worse with inspiration- most likely pleuritic pain and will treat with acetaminophen as needed * Echo from 01/2024 with EF 55-60%, grade 1 diastolic dysfunction, RV normal in size and function * Continue home metopolol #Current tobacco user * Current smoker 1/4 PPD daily * Nicotine path ordered * Smoking cessation by discharge needed #H/o Pulm Embolism #Hyperlipidemia * Found on CT chest 12/08/23; has been on Eliquis since * Also with history of thrombus of the descending aorta- continue home statin therapy Hypomagnesemia * Mag 1.5; replaced with 2gm Mag Sulfate in ED-> required 500 ml NSS bolus for hypotension following infusion * Will continue home Mag Ox supplementation * Will trend with AM labs DVT Ppx: On Eliquis; SCDs Code status: Full PCP: Dr. Ajit Moreno Dispo: Admit for further management Patient seen in collaboration with Dr. Taylor. Please see addendum.I spent a total of 70 minutes coordinating, documenting and providing care for this patient excluding time spent in the performance of separately billed services or time spent by another provider/QHP. (2) Combined pulmonary fibrosis and emphysema (CPFE): (3) Chronic diastolic heart failure: (4) Hypomagnesemia: History of Present Illness Primary Care Provider: Ajit Moreno MD Patient is a 68 year old M with a past medical history of dyslipidemia, prediabetes, COPD with emphysema, current tobacco user, pulmonary nodules, obstructive sleep apnea on oxygen nightly with CPAP, chronic heart failure with preserved ejection fraction, GERD, history of septic arthritis, chronic pain syndrome, history of PE, depression presenting with cough, chest tightness, respiratory distress x 1 week. Symptoms began 1 week ago with a cough that progressively worsened to shortness of breath with chest tightness, discolored sputum noted at home. Required 2 LPM oxygen at home, but typically does not need supplemental oxygen nightly. Albuterol nebs use 4x/day with minimal improvement. Follows Dr. Irwin with Pulmonary. Also reporting to have a headache, mostly behind right eye without visual changes. Endorses left chest pain, worse with in spiration, that travelled to left shoulder last night. Denies fever, chills, weight loss, weakness, cognitive changes, vision/hearing changes, urinary concerns, N/V/D, joint swelling/pain, ambulation difficulty, skin rashes, lesions, bleeding, bruising. In the emergency department, patient was tachypneic, labored breathing, and with rhonchi on exam. Hemodynamically stable with no signs of sepsis. Chest Xray showed Stable mild stranding opacity at the left lung base. No new consolidation or pleural effusion seen. No pneumo. BioFire + Rhino. VBG appeared ok with pH 7.43, CO2 42, O2 93, CO3 28, Base 3.2. Methypred and Duoneb was initially given with some clinical improvement, but then required Bipap support. Additional steroids and duoneb treatment was provided and the patient was unable to be weaned from Bipap support with settings 9/5, 40% O2. History obtained primarily from the patient and via hospitalization record. Allergies Allergy/AdvReac Type Severity Reaction Status Date / Time No Known Allergies Allergy Verified 08/29/24 12:29 Home Medications Medication Instructions Recorded Confirmed Type apixaban 5 mg tablet (Eliquis) 5 mg PO BID 02/04/24 10/19/24 History aspirin 81 mg tablet,delayed 81 mg PO DAILY 02/04/24 10/19/24 History release cyanocobalamin (vitamin B-12) 1,000 mcg PO DAILY 02/04/24 10/19/24 History 1,000 mcg tablet furosemide 40 mg tablet 40 mg PO DAILY PRN FLUID 02/04/24 10/19/24 History RETENTION/WT GAIN lorazepam 0.5 mg tablet 0.5 mg PO Q6H PRN Agitation 02/04/24 10/19/24 History magnesium chloride 64 mg 0 mg PO BID 02/04/24 10/19/24 History (magnesium chloride) tablet,delayed release metoprolol tartrate 25 mg tablet 12.5 mg PO BID 02/04/24 10/19/24 History pantoprazole 40 mg tablet,delayed 40 mg PO BID 02/04/24 10/19/24 History release pregabalin 100 mg capsule 100 mg PO BID 02/04/24 10/19/24 History Lactobacillus acidophilus 250 0 mmu cells PO DAILY 05/15/24 10/19/24 History million cell capsule (Probiotic Acidophilus) albuterol sulfate 2.5 mg/3 mL 2.5 mg inhalation DIRECTED PRN 05/15/24 10/19/24 History (0.083 %) solution for nebulization Shortness Of Breath Or Wheezing baclofen 5 mg tablet 0 mg PO TID PRN MUSCLE SPASMS 05/15/24 10/19/24 History clobetasol 0.05 % topical ointment 1 applic topical BID PRN RASH ON 05/15/24 10/19/24 History LEGS cyclobenzaprine 5 mg tablet 5 mg PO TID PRN MUSCLE SPASMS 05/15/24 10/19/24 History loperamide 2 mg tablet (Imodium 2 mg PO TID PRN Diarrhea 05/15/24 10/19/24 History A-D) meclizine 12.5 mg tablet 12.5 mg PO TID PRN 05/15/24 10/19/24 History DIZZINESS/VERTIGO ondansetron HCl 8 mg tablet 8 mg PO Q8H PRN NAUSEA/VOMITING 05/15/24 10/19/24 History oxycodone 10 mg tablet 10 mg PO Q6H PRN Pain 05/15/24 10/19/24 History prochlorperazine maleate 5 mg 5 mg PO Q6H PRN NAUSEA/VOMITING 05/15/24 10/19/24 History tablet (Compazine) CPAP Machine #1 ea 07/06/24 08/29/24 Rx CPAP Supplies #1 ea 07/06/24 08/29/24 Rx albuterol sulfate 90 mcg/actuation 2 puff inhalation Q4H PRN 09/04/24 10/19/24 Rx aerosol inhaler Shortness Of Breath Or Wheezing #8.5 grams montelukast 10 mg tablet 10 mg PO DAILY #90 tabs 09/04/24 10/19/24 Rx albuterol sulfate 90 mcg/actuation 1 puff inhalation UD PRN sob 10/19/24 10/19/24 History aerosol inhaler dupilumab 300 mg/2 mL subcutaneous 0 mg subcut .[id number] 10/19/24 10/19/24 History pen injector (Dupixent) etanercept 50 mg/mL (1 mL) 50 mg subcut UD 10/19/24 10/19/24 History subcutaneous pen injector (Enbrel SureClick) fluticasone fur. 200 mcg-umeclid 0 inh inhalation DAILY 10/19/24 10/19/24 History 62.5 mcg-vilant 25 mcg inhalat.powder (Trelegy Ellipta) tamsulosin 0.4 mg capsule 0.4 mg PO DAILY 10/19/24 10/19/24 History Past Med/Surg History Problem List (Updated 10/19/24 @ 15:25 by Francy Rushing, DO) URI (upper respiratory infection) (Acute) Acute exacerbation of chronic obstructive pulmonary disease (COPD) (Acute) Dyspnea (Acute) H/O elbow surgery R radial head ORIF prior to 2009; R elbow I&D 08/05/23: GA: MAC#4, ETT#7.5HiLo, Gr View 1 Left elbow joint crepitus Osteoarthritis of right elbow Chest pain (Acute) Chronic pain syndrome Left shoulder pain Non-cardiac chest pain Combined pulmonary fibrosis and emphysema (CPFE) Hypotension (Acute) Acute exacerbation of chronic obstructive pulmonary disease (COPD) (Acute) SOB (shortness of breath) (Acute) Chest pain (Acute) Nonsustained ventricular tachycardia Right elbow pain Hypomagnesemia (Acute) COPD (chronic obstructive pulmonary disease) (Acute) Pulmonary embolism (Acute) Olecranon bursitis, right elbow Acute exacerbation of chronic obstructive pulmonary disease (COPD) (Acute) 10/09/23-10/11/23 admission Acute on chronic hypoxic respiratory failure (Acute) 10/09/23-10/11/23 admission COPD exacerbation Type 2 diabetes mellitus Septic arthritis of elbow, right Elevated LFTs Thrombus of aorta (Acute) Current smoker Chronic bronchitis COPD with emphysema Multiple pulmonary nodules Pulmonary nodule seen on imaging study Compression fracture of L5 vertebra Closed fracture of radial head (Acute) Closed compression fracture of lumbar vertebra (Acute) Nasal polyp Acquired deviated nasal septum (Acute) Arthritis (Acute) Cervical radiculopathy (Acute) Chronic post-thoracotomy pain (Acute) Chronic sinusitis (Acute) Hypertrophy of nasal turbinates (Acute) Obesity (Acute) Post-nasal drip Chronic - stable Tobacco abuse Viral upper respiratory illness hx HLD (hyperlipidemia) (Chronic) TAYLOR (obstructive sleep apnea) Cannot tolerate device Anxiety (Chronic) Neuropathy (Chronic) GERD (gastroesophageal reflux disease) (Chronic) Well controlled and stable Diaphragmatic hernia (Chronic) Thoracic spinal stenosis (Chronic) Hypertension (Chronic) Medical History Hyperglycemia Ha1c 6.2% 10/10/23 labs; no mention of DMII by PCP Cigarette smoker Obesity 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 Saw vascular: started on [id number] and Eliquis. Eliquis was then D/C by pulmonary 04/2023. Pt had normal f/u chest CTA 06/20/23 Irregular cardiac rhythm pt noted to have 25beats of Nonsustained VTach vs PAT day of discharge (08/09/23) [facility]; pt denied sx; started on metoprolol and ordered Zio monitor and Cardio referral Peripheral vascular disease Chronic diastolic heart failure PCP monitoring; ECHO 10/03/23 with nl EF and Gr I DD. 'no changes to medic ations needed at this time. Continue lasix daily' per PCP Chronic back pain "hx broken back"no back surgery Arthritis GERD (gastroesophageal reflux disease) Hx pulmonary embolism 2017 developed after a bad fall (was on coumadin for 1 year) Cardiac murmur no significant valve disease per 10/03/23 ECHO Hypertension Hyperlipidemia Chronic obstructive pulmonary disease 'group D' per pulm. Pt admitted [facility] for COPD exacerbation 10/08-10/11/23; admitted [facility] for COPD exacerbation (also had COVID at the time): 09/22- 09/25/23; admitted for COPD exacerbation 05/17-05/21/23 Asthma required rescue inhaler "just the other day" Chronic respiratory failure On oxygen at night in the past - but no longer needs per patient . Per 10/18/23 PCP note, 'pt stable from a respiratory standpoint' Hx of migraines Sleep apnea 2L O2 HS (no other device) History of COVID-19 Admitted [facility] 09/22-09/25/23 COVID+ and COPD exacerbation; pt states no longer having COVID sx Pneumothorax Hx- complication from pain injection- resolved Histoplasmosis 2002- treated Surgical History H/O hernia repair History of esophagogastroduodenoscopy (EGD) Hx of colonoscopy History of open reduction and internal fixation (ORIF) procedure right shoulder History of total replacement of left shoulder joint History of sinus surgery History of placement of chest tube History of hand surgery right/left Left femoral shaft fracture Dutch placed>hardware intact H/O total hip arthroplasty left H/O elbow surgery R radial head ORIF prior to 2009; R elbow I&D 08/05/23: GA: MAC#4, ETT#7.5HiLo, Gr View 1 H/O exploratory thoracotomy "Left thoracotomy wedge biopsy of left upper lobe with excision of lesion or nodule & frozen section 2002" H/O hernia repair [facility] incarcerated supraumbilical hernia repair open no mesh 02/17/01 Family History Father Heart disease Hypertension Brother Heart disease Cancer Hypertension Stroke Mother Cancer Other Leukemia No family history of adverse response to anesthesia No family history of bleeding disorder Non-Hodgkin lymphoma Denies family history of Hearing loss Asthma Social History Smoking Status: Current every day smoker Tobacco Type: Cigarettes Age Started Using Tobacco: 11; packs per day: 1; Cigarettes Per Day: 10 cig daily>advised; Second Hand Exposure: No; Do You Dip or Chew Tobacco: No; Hx Alcohol Use: No Hx Substance Use: No Preferred Language: Armenian Communication Ability: Effective Property Claims Manager Required: No Beliefs That Will Affect Care: None marital status: Current Living Situation: Spouse current occupational status: unemployed Feels Safe at Home: Yes Assistive Devices: None Review of Systems Review of Systems: All systems reviewed & are unremarkable except as noted in HPI & below Physical Exam Physical Exam: VITALS: Reviewed. WEIGHT/BMI reviewed. GEN: Appears tired, tachypneic, distressed, well-developed, PSYCH: Good Judgment. AOx3. Normal memory, mood, and affect. HEENT -Head: NC/AT; -Eyes: PERRL, EOMI. No discharge or redn ess; -Ears: External ears are normal. -Nose: Normal nares. -Mouth and throat: MMM. Normal gums, muc taylor, palate,. Good dentition. NECK: Supple, with no masses. CV: RRR, no m/r/g. +1 BLE pitting edema LUNGS: Inspir and expir wheeze with prolonged expiratory phase, nonproductive cough, +rhonchi, +accessory muscle use ABD: Soft, NT/ND, NBS, no masses or organomegaly. : N/A SKIN: Warm, well perfused. No skin rashes or abnormal lesions. MSK: No deformities, Normal gait. EXT: No clubbing, cyanosis, or edema. NEURO: Ambulating with no limitations. Normal muscle strength and tone. No focal deficits. Results & Data Results & Data Vital Signs (Past 12 Hours) Vital Signs Temp Pulse Pulse Resp BP BP Pulse Ox 10/19/24 16:25 99 H 16 95 10/19/24 16:25 99 H 17 95 10/19/24 16:19 105/43 L 10/19/24 16:07 92/70 L 10/19/24 16:00 102 H 21 93 10/19/24 16:00 98/49 L 10/19/24 15:30 103 H 22 106/58 L 96 10/19/24 15:00 110 H 19 86/57 L 98 10/19/24 14:30 104/63 10/19/24 14:21 101 H 22 99 10/19/24 14:03 98 H 23 94 10/19/24 14:01 136/66 10/19/24 13:57 100 H 21 98 10/19/24 13:43 104 H 22 123/79 96 10/19/24 13:42 105 H 10/19/24 13:30 94 10/19/24 13:26 36.6 C 112 H 20 94 O2 Del Method O2 Flow Rate FiO2 10/19/24 16:25 50 10/19/24 16:25 BiPAP 50 10/19/24 16:19 10/19/24 16:07 10/19/24 16:00 10/19/24 16:00 10/19/24 15:30 Nasal Cannula 2 10/19/24 15:00 Nasal Cannula 2 10/19/24 14:30 10/19/24 14:21 Nebulizer 10/19/24 14:03 Nasal Cannula 3 10/19/24 14:01 10/19/24 13:57 Nebulizer 10/19/24 13:43 Nasal Cannula 2 10/19/24 13:42 10/19/24 13:30 Room Air 10/19/24 13:26 Room Air Laboratory Results Short CBC 10/19/24 Range/Units 13:30 WBC 8.91 (4.8-10.8) K/ul Hgb 13.4 L (14.0-18.0) g/dl Hct 39.9 L (42.0-52.0) % Plt Count 263 (130-400) K/uL BMP 10/19/24 13:30 Sodium 138 Potassium 4.3 Chloride 107 Carbon Dioxide 24 BUN 13 Creatinine 0.88 Glucose 122 H Calcium 8.8 Liver Function 10/19/24 Range/Units 13:30 Total Bilirubin 0.4 (0.2-1.0) mg/dl AST 52 H (13-39) U/L ALT 46 (7-52) U/L Alkaline Phosphatase 100 (34-104) U/L Albumin 3.4 (3.4-5.0) gm/dl Diagnostic Findings Chest X-Ray 10/19/24 13:45 XR chest 1V portable CLINICAL HISTORY: sob COMPARISON STUDY: 05/14/2024 FINDINGS: Heart size and pulmonary vasculature are normal. Stable mild stranding opacity at the left lung base. No new consolidation or pleural effusion seen. No pneumothorax. IMPRESSION: No pneumonia seen. ACT 112: Negative or not required by law. Electronically signed by: Higinio Mcdonald M.D. 10/19/2024 2:01 PM Supervising Physician Co-Signing Physician Notes Attending addendum: The patient was seen and examined in emergency room History of COPD, continually smoking came in with increasing shortness of breath and cough Noted to have rhinovirus positive without any pneumonia On examination Remains on BiPAP and has been getting a little better Remains hemodynamically stable on BiPAP Chestdecreased breath sounds with wheezing bilaterally HeartS1-S2, regular Abdomenbenign Extremitiestrace edema bilaterally His admission labs, imaging studies reviewed Noted to have rhinovirus infection with history of COPD and ongoing smoking Has exacerbation secondary to virus infection Will be given intravenous Solu-Medrol, nebulized bronchodilator and BiPAP as needed Other significant medical conditions remained stable as above Agree with assessment and plan as outlined above by Catalina BENDER and take the full responsibility of care in the hospital Total time taken to take history, examining the patient, reviewed the labs and imaging studies and also medications was [address] Zahraa Taylor
[2024-10-19 17:00] LABS: INR 1.0 (0.9-1.1); Prothrombin Time 10.7 Seconds (9.0-12.0)
[2024-10-19] MEDS ORDERED: ACETAMINOPHEN 1,000 MG/100 ML VIAL IV PRN (19:14)
[2024-10-19] MEDS ORDERED: POLYETHYLENE (MIRALAX) 17 GM PACK PO PRN (19:16)
[2024-10-19] MEDS ORDERED: ALUMINUM/MAGNESIUM SUSP 30 ML UDC PO PRN (19:16)
[2024-10-19] MEDS ORDERED: ACETAMINOPHEN 325 MG TAB PO PRN (19:16)
[2024-10-19] MEDS ORDERED: ONDANSETRON INJ 2 MG/ML 2 ML VIAL IV PRN (19:16)
[2024-10-19] MEDS ORDERED: MAGNESIUM HYDROXIDE SUSP 30 ML UDC PO PRN (19:16)
[2024-10-19] MEDS ORDERED: SODIUM CHLOR 7% 4 ML NEB NEB PRN (19:16)
[2024-10-19] MEDS: ACETAMINOPHEN 1,000 MG/100 ML VIAL IV PRN (19:28)
[2024-10-19] MEDS: ALBUT/IPRATROP 3MG/0.5MG NEB 3 ML VIAL INH SCH (20:07)
[2024-10-19] MEDS: guaiFENesin 600 MG TABCR PO SCH (21:56)
[2024-10-19] MEDS: MAGNESIUM CHLORIDE W/CALCIUM 64MG DELAYED REL TAB PO SCH (21:56)
[2024-10-19] MEDS: APIXABAN 5 MG TABLET PO SCH (21:56)
[2024-10-19] MEDS: PREGABALIN 100 MG CAP PO SCH (21:56)
[2024-10-19] MEDS: METOPROLOL TARTRATE 25 MG TAB PO SCH (21:56)
[2024-10-19] MEDS: NICOTINE 7 MG/24 HR TDSY TD SCH (21:57)
--- NOTE | 2024-10-19 22:13 | Electrocardiogram Report ---
Test Reason : Blood Pressure : */* mmHG Vent. Rate : 110 BPM Atrial Rate : 110 BPM P-R Int : 166 ms QRS Dur : 76 ms QT Int : 326 ms P-R-T Axes : 70 62 35 degrees QTcB Int : 441 ms Sinus tachycardia Otherwise normal ECG When compared with ECG of 14-May-2024 23:34, Vent. rate has increased by 40 bpm Confirmed by David Mehta ([id number]) on 10/19/2024 10:13:10 PM Referred By: Confirmed By: David Mehta
[2024-10-20 06:59] LABS: Hematocrit (blood only) 37.0 % (42.0-52.0); Hemoglobin 12.4 g/dl (14.0-18.0); Mean Corpuscular Hemoglobin 31.0 pg (25.0-34.0); Mean Corpuscular Volume 92.5 fL (80.0-100.0); Platelet Count 231 K/uL (130-400); RDW Standard Deviation 51.3 fL (36.4-46.3); Red Blood Count 4.00 M/uL (4.70-6.10); White Blood Count 6.70 K/ul (4.8-10.8)
[2024-10-20] MEDS: CYANOCOBALAMIN (B-12) 500 MCG TABLET PO SCH (07:47)
[2024-10-20] MEDS: ASPIRIN 81 MG ECTAB PO SCH (07:48)
[2024-10-20] MEDS: TAMSULOSIN HCL 0.4 MG CAP PO SCH (07:48)
[2024-10-20 08:07] LABS: Anion Gap 3.0 (3-11); Blood Urea Nitrogen 11.0 mg/dl (6-23); Calcium 8.3 mg/dl (8.6-10.3); Carbon Dioxide 26.0 mmol/L (21-32); Chloride 110.0 mmol/L (98-107); Creatinine Clr Calc Pharmacy 107.7 ml/min; Glucose 119.0 mg/dl (70-99(Fasting)); Potassium 4.4 mmol/L (3.5-5.1); Sodium 139.0 mmol/L (136-145)
[2024-10-20 08:35] LABS: Base Excess VBG 0.3 mEq/L; HCO3 VBG 26 mmol/L; Oxygen Saturation VBG 74.9 %; PCO2 VBG 45 mmHg (38-50); PO2 VBG 45 mmHg; pH VBG 7.37 (7.36-7.41)
[2024-10-20] MEDS: REMOVE NICODERM PATCH SCH (08:48)
[2024-10-20] MEDS: MAGNESIUM SULFATE / D5W 1 GM/100 ML BAG IV SCH (08:59)
--- NOTE | 2024-10-20 10:50 | Pulmonary Consultation ---
Date of Consultation October 20, 2024 Assessment & Plan (1) Acute exacerbation of chronic obstructive pulmonary disease (COPD): Agree with IV methylprednisolone. If patient develops worsening leukocytosis, fever or more purulent sputum, would recommend addition of antipseudomonal antibiotics and atypical coverage with either azithromycin or doxycycline. ABG without evidence of acute hypercapnia. Formoterol and nebulized budesonide added to the patient's regimen. Recommend pulmonary rehab as an outpatient. Follow-up with outpatient publicist upon discharge. Recommend transitioning to Brezti with spacer as an outpatient. Patient may also be a candidate for Dupixent as an adjuvant biologic therapy given his asthma and COPD overlap syndrome. The #1 most important thing he can do to help his COPD would be to quit smoking. (2) Acute viral bronchiolitis: Viral bronchiolitis likely inciting event that led to his COPD exacerbation along with continued tobacco abuse. (3) Tobacco abuse counseling: Strict smoking cessation advised. Agree with nicotine patch. (4) TAYLOR on CPAP: Continue CPAP while inpatient. Plan Pulmonary available for follow-up as needed while inpatient. Please call with questions. Thank you for the consult. I personally spent 75 minutes on the date of service in activities related to this patient's encounter, including 50 minutes of counseling with patient regarding treatment plan and 15 minutes of clinical review of lab results and documentation. 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 This note was dictated using voice recognition software and may include grammatical errors, extra words, word substitutions and other inaccuracies due to errors in the voice recognition software and differences in speech patterns. History of Present Illness Reason for Consultation: COPD exacerbation Attending Physician: Brody Davis MD History of Present Illness 68-year-old male with a history of COPD followed by my colleague in the pulmonary clinic, Dr. Irwin, and most recently saw him 09/04/2024. Patient maintained on Trelegy and Singulair. Patient felt potential CPFT and also has a history of positive anti-CCP antibodies. PFT in August revealed a moderate airflow obstruction with an FEV1 of 55% and a significant increase postbronchodilator in FVC of 13%. Air trapping noted with an RV of 171% DLCO was reduced to 58%. Patient had a sleep study in June 2023 which revealed adequate CPAP titration with his CPAP at 7 cm of water. Chest x-ray this admission personally reviewed without evidence of pneumonia, but flattening of the diaphragms noted with hyperexpansion. VBG yesterday revealed mild respiratory alkalosis and today is unremarkable. Patient is currently on normal saline at 125 mL an hour, methylprednisone 40 mg twice daily and otherwise his home medications and receiving magnesium sulfate. Patient also receiving DuoNebs every 6 hours. Admission H&P reviewed. Respiratory viral panel on admission revealed enterovirus/rhinovirus PCR positive. Patient still complaining of dry cough and shortness of breath. He does feel improved compared to yesterday. Prior extensive smoking history. Allergies Allergy/AdvReac Type Severity Reaction Status Date / Time No Known Allergies Allergy Verified 08/29/24 12:29 Home Medications Medication Instructions Recorded Confirmed Type apixaban 5 mg tablet (Eliquis) 5 mg PO BID 02/04/24 10/19/24 History aspirin 81 mg tablet,delayed 81 mg PO DAILY 02/04/24 10/19/24 History release cyanocobalamin (vitamin B-12) 1,000 mcg PO DAILY 02/04/24 10/19/24 History 1,000 mcg tablet furosemide 40 mg tablet 40 mg PO DAILY PRN FLUID 02/04/24 10/19/24 History RETENTION/WT GAIN lorazepam 0.5 mg tablet 0.5 mg PO Q6H PRN Agitation 02/04/24 10/19/24 History magnesium chloride 64 mg 0 mg PO BID 02/04/24 10/19/24 History (magnesium chloride) tablet,delayed release metoprolol tartrate 25 mg tablet 12.5 mg PO BID 02/04/24 10/19/24 History pantoprazole 40 mg tablet,delayed 40 mg PO BID 02/04/24 10/19/24 History release pregabalin 100 mg capsule 100 mg PO BID 02/04/24 10/19/24 History Lactobacillus acidophilus 250 0 mmu cells PO DAILY 05/15/24 10/19/24 History million cell capsule (Probiotic Acidophilus) albuterol sulfate 2.5 mg/3 mL 2.5 mg inhalation DIRECTED PRN 05/15/24 10/19/24 History (0.083 %) solution for nebulization Shortness Of Breath Or Wheezing baclofen 5 mg tablet 0 mg PO TID PRN MUSCLE SPASMS 05/15/24 10/19/24 History clobetasol 0.05 % topical ointment 1 applic topical BID PRN RASH ON 05/15/24 10/19/24 History LEGS cyclobenzaprine 5 mg tablet 5 mg PO TID PRN MUSCLE SPASMS 05/15/24 10/19/24 History loperamide 2 mg tablet (Imodium 2 mg PO TID PRN Diarrhea 05/15/24 10/19/24 History A-D) meclizine 12.5 mg tablet 12.5 mg PO TID PRN 05/15/24 10/19/24 History DIZZINESS/VERTIGO ondansetron HCl 8 mg tablet 8 mg PO Q8H PRN NAUSEA/VOMITING 05/15/24 10/19/24 History oxycodone 10 mg tablet 10 mg PO Q6H PRN Pain 05/15/24 10/19/24 History prochlorperazine maleate 5 mg 5 mg PO Q6H PRN NAUSEA/VOMITING 05/15/24 10/19/24 History tablet (Compazine) CPAP Machine #1 ea 07/06/24 08/29/24 Rx CPAP Supplies #1 ea 07/06/24 08/29/24 Rx albuterol sulfate 90 mcg/actuation 2 puff inhalation Q4H PRN 09/04/24 10/19/24 Rx aerosol inhaler Shortness Of Breath Or Wheezing #8.5 grams montelukast 10 mg tablet 10 mg PO DAILY #90 tabs 09/04/24 10/19/24 Rx albuterol sulfate 90 mcg/actuation 1 puff inhalation UD PRN sob 10/19/24 10/19/24 History aerosol inhaler dupilumab 300 mg/2 mL subcutaneous 0 mg subcut .[id number] 10/19/24 10/19/24 History pen injector (Dupixent) etanercept 50 mg/mL (1 mL) 50 mg subcut UD 10/19/24 10/19/24 History subcutaneous pen injector (Enbrel SureDavidick) fluticasone fur. 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 Saw vascular: started on [id number] and Eliquis. Eliquis was then D/C by pulmonary 04/2023. Pt had normal f/u chest CTA 06/20/23 Irregular cardiac rhythm pt noted to have 25beats of Nonsustained VTach vs PAT day of discharge (08/09/23) [facility]; pt denied sx; started on metoprolol and ordered Zio monitor and Cardio referral Peripheral vascular disease Chronic diastolic heart failure PCP monitoring; ECHO 10/03/23 with nl EF and Gr I DD. 'no changes to medications needed at this time. Continue lasix daily' per PCP Chronic back pain "hx broken back"no back surgery Arthritis GERD (gastroesophageal reflux disease) Hx pulmonary embolism 2016 developed after a bad fall (was on coumadin for 1 year) Cardiac murmur no significant valve disease per 10/03/23 ECHO Hypertension Hyperlipidemia Chronic obstructive pulmonary disease 'group D' per pulm. Pt admitted [facility] for COPD exacerbation 10/08-10/11/23; admitted [facility] for COPD exacerbation (also had COVID at the time): 09/22- 09/25/23; admitted for COPD exacerbation 05/17-05/21/23 Asthma required rescue inhaler "just the other day" Chronic respiratory failure On oxygen at night in the past - but no longer needs per patient . Per 10/18/23 PCP note, 'pt stable from a respiratory standpoint' Hx of migraines Sleep apnea 2L O2 HS (no other device) History of COVID-[address] [facility] 09/22-09/25/23 COVID+ and COPD exacerbation; pt states no longer having COVID sx Pneumothorax Hx- complication from pain injection- resolved Histoplasmosis 2002- treated Surgical History H/O hernia repair History of esophagogastroduodenoscopy (EGD) Hx of colonoscopy History of open reduction and internal fixation (ORIF) procedure right shoulder History of total replacement of left shoulder joint History of sinus surgery History of placement of chest tube History of hand surgery right/left Left femoral shaft fracture Dutch placed>hardware intact H/O total hip arthroplasty left H/O elbow surgery R radial head ORIF prior to 2009; R elbow I&D 08/05/23: GA: MAC#4, ETT#7.5HiLo, Gr View 1 H/O exploratory thoracotomy "Left thoracotomy wedge biopsy of left upper lobe with excision of lesion or nodule & frozen section 2002" H/O hernia repair [facility] incarcerated supraumbilical hernia repair open no mesh 02/17/01 Family History Father Heart disease Hypertension Brother Heart disease Cancer Hypertension Stroke Mother Cancer Other Leukemia No family history of adverse response to anesthesia No family history of bleeding disorder Non-Hodgkin lymphoma Denies family history of Hearing loss Asthma Social History Smoking Status: Current every day smoker Tobacco Type: Cigarettes Age Started Using Tobacco: 11; packs per day: 1; Cigarettes Per Day: 10 cig daily>advised; Second Hand Exposure: No; Do You Dip or Chew Tobacco: No; Hx Alcohol Use: No Hx Substance Use: No Preferred Language: Welsh Communication Ability: Effective 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 Patient is in no apparent distress. Patient is well-developed. Eyes: Pupils are equal round and reactive to light. Conjunctivae are normal. Anicteric sclera. Ears nose, mouth and throat: Mallampati class 2. Normal posterior oropharynx. Uvula is midline. Nasal cannula in place. Neck: Trachea is midline. Visual inspection is normal. Respiratory: Diffuse expiratory wheezing with mild tachypnea. Cardiovascular: Regular rate and rhythm. No murmurs. No edema. Gastrointestinal: Normal bowel sounds, soft, nontender and nondistended. No hepatosplenomegaly noted. Musculoskeletal: No cyanosis. Patient is able to move all extremities. Strength is 5 out of 5 in the upper and lower extremities. Skin: No rashes, warm dry and intact. Neurologic: No obvious focal neurological deficits seen. Psychiatric: Alert and oriented x3 with a euthymic affect. Results & Data Results & Data Vital Signs (Past 12 Hours) Vital Signs Temp Pulse Pulse Resp BP Pulse Ox O2 Del Method 10/20/24 09:30 Nasal Cannula 10/20/24 09:00 89 L Room Air 10/20/24 08:10 36.3 C L 81 18 92/52 L 95 BiPAP 10/20/24 07:04 93 H 19 94 10/20/24 07:04 73 19 94 BiPAP 10/20/24 05:51 94 H 10/20/24 03:30 36.2 C L 94 H 22 125/67 97 Room Air 10/20/24 02:15 74 19 94 10/20/24 01:54 79 18 94 BiPAP 10/19/24 23:45 84 18 96 10/19/24 23:11 106/63 10/19/24 23:00 36.3 C L 74 22 92/51 L 94 BiPAP O2 Flow Rate FiO2 10/20/24 09:30 2 10/20/24 09:00 10/20/24 08:10 10/20/24 07:04 30 10/20/24 07:04 30 10/20/24 05:51 10/20/24 03:30 10/20/24 02:15 30 10/20/24 01:54 30 10/19/24 23:45 30 10/19/24 23:11 10/19/24 23:00 PG Care Time/CCT Total # of Minutes Spent Total Time Spent with Patient: Total time spent is greater than 50% in coordination of care (as documented) at patient's floor/unit and/or counseling patient: Coding Level of Care Code 65897 INT INP/OBS CARE 3/75MIN Diagnoses Acute exacerbation of chronic obstructive pulmonary disease (COPD) J44.1 Acute viral bronchiolitis J21.8; B97.89 Tobacco abuse counseling Z71.6 TAYLOR on CPAP G47.33
--- NOTE | 2024-10-20 16:12 | Hospitalist Progress Note ---
Date of Service October 20, 2024 Assessment & Plan (1) Acute exacerbation of chronic obstructive pulmonary disease (COPD): Plan: Patient is a 68 year old M with a past medical history of dyslipidemia, prediabetes, COPD with emphysema, current tobacco user, pulmonary nodules, obstructive sleep apnea on oxygen nightly with CPAP, chronic heart failure with preserved ejection fraction, GERD, history of septic arthritis, chronic pain syndrome, history of PE, depression presenting with cough, chest tightness, respiratory distress x 1 week. #Acute exacerbation of COPD 2/2 Rhinovirus URI #Combined pulmonary fibrosis and emphysema * Chest Xray showing Stable mild stranding opacity at the left lung base. No new consolidation or pleural effusion seen. No pneumo * Continue CPAP prn * Supplemental oxygen as needed to maintain sats >88% * pulmonary consult, appreciate recs * Plan to transition to home CPAP when able * On biologics at home- hold while inpatient; will give Duonebs sched Q6H * Methylpred 40 mg IV twice daily ordered * IS, Flutter valve QID for pulmonary toileting * Mucinex scheduled BID #Chronic diastolic heart failure #Hypertension * patient at baseline weight * Echo from 01/2024 with EF 55-60%, grade 1 diastolic dysfunction, RV normal in size and function * Continue home metopolol * hold lasix in setting of hypotension, give 500 cc bolus and toter response #Current tobacco user * Current smoker 1/4 PPD daily * Nicotine path ordered * Smoking cessation by discharge needed #H/o Pulm Embolism #Hyperlipidemia * Found on CT chest 12/08/23; has been on Eliquis since * Also with history of thrombus of the descending aorta- continue home statin therapy #Hypomagnesemia * replenish I spent a total of 55 minutes in direct patient care, including [id number] time with the patient and/or family, reviewing medical records, ordering and reviewing diagnostic tests, and coordinating care with other healthcare providers. This time includes: history taking, physical examination, medical decision making, counseling, ECG interpretation, imaging interpretation, lab interpretation, orders, and education, excluding time spent in the performance of separately billed services. (2) Combined pulmonary fibrosis and emphysema (CPFE): (3) Chronic diastolic heart failure: (4) Hypomagnesemia: Admission and Anticipated Discharge Date Admission Date: October 19, 2024 Subjective Patient seen and examined at bedside. Patient doing ok on evaluation. States he is breathing better than prior. Still SOB. Review of Systems Review of Systems: CONSTITUTIONAL: Patient denies fevers, chills, sweats and weight changes. EYES: Patient denies any visual symptoms. EARS, NOSE, AND THROAT: No difficulties with hearing. No symptoms of rhinitis or sore throat. CARDIOVASCULAR: Patient denies chest pains, palpitations, orthopnea and paroxysmal nocturnal dyspnea. RESPIRATORY: cough GI: No nausea, vomiting, diarrhea, constipation, abdominal pain, hematochezia or melena. : No urinary hesitancy or dribbling. No nocturia or urinary frequency. No abnormal urethral discharge. MUSCULOSKELETAL: No myalgias or arthralgias. NEUROLOGIC: No chronic headaches, no seizures. Patient denies numbness, tingling or weakness. PSYCHIATRIC: Patient denies problems with mood disturbance. No problems with anxiety. ENDOCRINE: No excessive urination or excessive thirst. DERMATOLOGIC: Patient denies any rashes or skin changes. Physical Exam Physical Exam: Gen: A&O 3 NAD HEENT: NCAT, EOMI, not icteric. External ears normal. No rhinorrhea. Moist mucous membranes. Neck: Supple, full range of motion, no observable masses, No meningeal sign. Lungs: diffuse wheezing throughout lung fuller CV: RRR, no edema. Abdomen: Soft, nondistended, No rebound tenderness. MSK: No joint swelling, no redness. Skin: No rashes, petechiae, lesions. Normal color per patient. Neuro: Normal Gait, Grossly intact. Psych: Appropriate for situation. Results & Data Results & Data Vital Signs (Past 12 Hours) Vital Signs Temp Pulse Pulse Resp BP Pulse Ox O2 Del Method 10/20/24 13:24 78 16 92 Nasal Cannula 10/20/24 12:01 36.5 C 75 18 114/71 93 Nasal Cannula 10/20/24 09:30 Nasal Cannula 10/20/24 09:00 89 L Room Air 10/20/24 08:10 36.3 C L 81 18 92/52 L 95 BiPAP 10/20/24 07:04 93 H 19 94 10/20/24 07:04 73 19 94 BiPAP 10/20/24 05:51 94 H O2 Flow Rate FiO2 10/20/24 13:24 3 10/20/24 12:01 2 10/20/24 09:30 2 10/20/24 09:00 10/20/24 08:10 10/20/24 07:04 30 10/20/24 07:04 30 10/20/24 05:51 Laboratory Results -personally reviewed, no leukocytosis, creatinine at baseline, mg 1.5 and replenished Medications Administered Albuterol (Albut/Ipratrop 3mg/0.5mg Neb 3 Ml Vial) 3 ml INH Q6R YUN Stop: 11/18/24 19:15 Last Admin: 10/20/24 13:23 Dose: 3 ml Documented By: Admin: 10/20/24 07:05 Dose: 3 ml Documented By: Admin: 10/20/24 01:54 Dose: 3 ml Documented By: Admin: 10/19/24 20:07 Dose: 3 ml Documented By: MATT Apixaban (Apixaban 5 Mg Tablet) 5 mg PO BID YUN Stop: 11/18/24 20:59 Last Admin: 10/20/24 07:45 Dose: 5 mg Documented By: Admin: 10/19/24 21:56 Dose: 5 mg Documented By: EUGENE Aspirin (Aspirin 81 Mg Ectab) 81 mg PO DAILY YUN Stop: 11/19/24 08:59 Last Admin: 10/20/24 07:48 Dose: 81 mg Documented By: OSMIN Cyanocobalamin (Cyanocobalamin (B-12) 500 Mcg Tablet) 1,000 mcg PO DAILY YNU Stop: 11/19/24 08:59 Last Admin: 10/20/24 07:47 Dose: 1,000 mcg Documented By: OSMIN Guaifenesin (Guaifenesin 600 Mg Tabcr) 1,200 mg PO BID YUN Stop: 11/18/24 20:59 Last Admin: 10/20/24 08:48 Dose: 1,200 mg Documented By: Admin: 10/19/24 21:56 Dose: 1,200 mg Documented By: EUGENE Sodium Chloride (Nss) 1,000 mls @ 125 mls/hr IV .Q8H YUN Stop: 10/22/24 15:44 Last Admin: 10/20/24 15:10 Dose: 125 mls/hr Documented By: Infusion: 10/20/24 13:59 Dose: Infused Documented By: Admin: 10/20/24 05:59 Dose: 125 mls/hr Documented By: Infusion: 10/20/24 05:59 Dose: Infused Documented By: Admin: 10/20/24 00:33 Dose: 125 mls/hr Documented By: Infusion: 10/20/24 00:00 Dose: Infused Documented By: Admin: 10/19/24 16:00 Dose: 125 mls/hr Documented By: QGV Acetaminophen (Ofirmev) 1,000 mg in 100 mls @ 400 mls/hr IV Q8H PRN PRN Reason: Pain Stop: 10/22/24 18:44 Last Infusion: 10/19/24 19:45 Dose: Infused Documented By: Admin: 10/19/24 19:28 Dose: 400 mls/hr Documented By: MED Methylprednisolone 40 mg/ (Syringe) 0.64 mls @ 1.5 mls/min IV BID YUN Stop: 11/19/24 05:59 Last Admin: 10/20/24 07:48 Dose: 1.5 mls/min Documented By: Admin: 10/20/24 05:59 Dose: 1.5 mls/min Documented By: EUGENE Magnesium Chloride (Magnesium Chloride W/Calcium 64mg Delayed Rel Tab) 64 mg PO BID YUN Stop: 11/18/24 20:59 Last Admin: 10/20/24 07:45 Dose: 64 mg Documented By: Admin: 10/19/24 21:56 Dose: 64 mg Documented By: EUGENE Metoprolol Tartrate (Metoprolol Tartrate 25 Mg Tab) 12.5 mg PO BID YUN Stop: 11/18/24 20:59 Last Admin: 10/20/24 07:45 Dose: 12.5 mg Documented By: Admin: 10/19/24 21:56 Dose: 12.5 mg Documented By: EUGENE Miscellaneous (Remove Nicoderm Patch) 1 each N/A DAILY@0859 [facility] Stop: 11/19/24 08:58 Last Admin: 10/20/24 08:48 Dose: 1 each Documented By: OMSIN Nicotine (Nicotine 7 Mg/24 Hr Tdsy) 1 patch TD QAM YUN Stop: 11/18/24 19:29 Last Admin: 10/20/24 07:48 Dose: 1 patch Documented By: Admin: 10/19/24 21:57 Dose: Not Given Documented By: EUGENE Pantoprazole Sodium (Pantoprazole 40 Mg Tab) 40 mg PO BID YUN Stop: 11/18/24 20:59 Last Admin: 10/20/24 07:48 Dose: 40 mg Documented By: Admin: 10/19/24 21:57 Dose: 40 mg Documented By: EUGENE Pregabalin (Pregabalin 100 Mg Cap) 100 mg PO BID YUN Stop: 11/18/24 20:59 Last Admin: 10/20/24 08:59 Dose: 100 mg Documented By: Admin: 10/19/24 21:56 Dose: 100 mg Documented By: EUGENE Tamsulosin HCl (Tamsulosin Hcl 0.4 Mg Cap) 0.4 mg PO DAILY [facility] Stop: 11/19/24 08:59 Last Admin: 10/20/24 07:48 Dose: 0.4 mg Documented By: OSMIN
[2024-10-20] MEDS: LACTATED RINGER'S 500 ML IV ONE (16:31)
[2024-10-20] MEDS: FORMOTEROL 20 MCG/2 ML VIAL NEB SCH (20:33)
[2024-10-20] MEDS: BUDESONIDE 0.5 MG/2 ML VIAL (PULMICORT) NEB SCH (20:33)
[2024-10-21 06:31] LABS: Hematocrit (blood only) 38.0 % (42.0-52.0); Hemoglobin 13.0 g/dl (14.0-18.0); Mean Corpuscular Hemoglobin 31.6 pg (25.0-34.0); Mean Corpuscular Volume 92.5 fL (80.0-100.0); Platelet Count 257 K/uL (130-400); RDW Standard Deviation 51.2 fL (36.4-46.3); Red Blood Count 4.11 M/uL (4.70-6.10); White Blood Count 12.68 K/ul (4.8-10.8)
[2024-10-21 07:00] LABS: Alanine Aminotransferase 40.0 U/L (7-52); Albumin Globulin Ratio 1.1 (0.9-2); Alkaline Phosphatase 81.0 U/L (34-104); Anion Gap 3.0 (3-11); Bilirubin,Total 0.3 mg/dl (0.2-1.0); Blood Urea Nitrogen 23.0 mg/dl (6-23); Calcium 8.6 mg/dl (8.6-10.3); Carbon Dioxide 26.0 mmol/L (21-32); Chloride 110.0 mmol/L (98-107); Creatinine Clr Calc Pharmacy 89.3 ml/min; Globulin 2.9 gm/dl (2.5-4.0); Glucose 125.0 mg/dl (70-99(Fasting)); Magnesium 2.6 mg/dl (1.7-2.4); Potassium 4.9 mmol/L (3.5-5.1); Sodium 139.0 mmol/L (136-145); Total Protein 6.1 gm/dl (6.0-8.3)
[2024-10-21] MEDS: LORazepam 0.5 MG TAB PO PRN (09:38)
[2024-10-21] MEDS: busPIRone 5 MG TAB PO SCH (14:15)
--- NOTE | 2024-10-21 14:24 | Hospitalist Progress Note ---
Date of Service October 21, 2024 Assessment & Plan (1) Acute exacerbation of chronic obstructive pulmonary disease (COPD): Plan: Patient is a 68 year old M with a past medical history of dyslipidemia, prediabetes, COPD with emphysema, current tobacco user, pulmonary nodules, obstructive sleep apnea on oxygen nightly with CPAP, chronic heart failure with preserved ejection fraction, GERD, history of septic arthritis, chronic pain syndrome, history of PE, depression presenting with cough, chest tightness, respiratory distress x 1 week. #Acute exacerbation of COPD 2/2 Rhinovirus URI #Combined pulmonary fibrosis and emphysema * Chest Xray showing Stable mild stranding opacity at the left lung base. No new consolidation or pleural effusion seen. No pneumo * Continue CPAP prn * Supplemental oxygen as needed to maintain sats >92% for patient comfort * start buspar 5mg tid for anxiety * restart home ativan 0.5mg q12hr prn * pulmonary consult, appreciate recs * On biologics at home- hold while inpatient; will give Duonebs sched Q6H * Methylpred 40 mg IV twice daily ordered * IS, Flutter valve QID for pulmonary toileting * Mucinex scheduled BID #Chronic diastolic heart failure #Hypertension * patient at baseline weight * Echo from 01/2024 with EF 55-60%, grade 1 diastolic dysfunction, RV normal in size and function * Continue home metopolol * hold lasix in setting of hypotension, give 500 cc bolus and diving judge response #Current tobacco user * Current smoker 1/4 PPD daily * Nicotine path ordered * Smoking cessation by discharge needed #H/o Pulm Embolism #Hyperlipidemia * Found on CT chest 12/08/23; has been on Eliquis since * Also with history of thrombus of the descending aorta- continue home statin therapy #Hypomagnesemia * replenish I spent a total of 50 minutes in direct patient care, including [id number] time with the patient and/or family, reviewing medical records, ordering and reviewing diagnostic tests, and coordinating care with other healthcare providers. This time includes: history taking, physical examination, medical decision making, counseling, ECG interpretation, imaging interpretation, lab interpretation, orders, and education, excluding time spent in the performance of separately billed services. (2) Combined pulmonary fibrosis and emphysema (CPFE): (3) Chronic diastolic heart failure: (4) Hypomagnesemia: Admission and Anticipated Discharge Date Admission Date: October 19, 2024 Subjective Patient seen and examined at bedside. Patient with bipap on, appears comfortable. States he is very anxious at this time. Review of Systems Review of Systems: CONSTITUTIONAL: Patient denies fevers, chills, sweats and weight changes. EYES: Patient denies any visual symptoms. EARS, NOSE, AND THROAT: No difficulties with hearing. No symptoms of rhinitis or sore throat. CARDIOVASCULAR: Patient denies chest pains, palpitations, orthopnea and paroxysmal nocturnal dyspnea. RESPIRATORY: cough GI: No nausea, vomiting, diarrhea, constipation, abdominal pain, hematochezia or melena. : No urinary hesitancy or dribbling. No nocturia or urinary frequency. No abnormal urethral discharge. MUSCULOSKELETAL: No myalgias or arthralgias. NEUROLOGIC: No chronic headaches, no seizures. Patient denies numbness, tingling or weakness. PSYCHIATRIC: Patient denies problems with mood disturbance. No problems with anxiety. ENDOCRINE: No excessive urination or excessive thirst. DERMATOLOGIC: Patient denies any rashes or skin changes. Physical Exam Physical Exam: Gen: A&O 3 NAD HEENT: NCAT, EOMI, not icteric. External ears normal. No rhinorrhea. Moist mucous membranes. Neck: Supple, full range of motion, no observable masses, No meningeal sign. Lungs: diffuse wheezing throughout lung fuller, similar to prior CV: RRR, no edema. Abdomen: Soft, nondistended, No rebound tenderness. MSK: No joint swelling, no redness. Skin: No rashes, petechiae, lesions. Normal color per patient. Neuro: Normal Gait, Grossly intact. Psych: Appropriate for situation. Results & Data Results & Data Vital Signs (Past 12 Hours) Vital Signs Temp Pulse Pulse Resp BP Pulse Ox O2 Del Method 10/21/24 13:11 69 14 98 Nasal Cannula 10/21/24 10:54 36.3 C L 61 18 99/52 L 97 BiPAP 10/21/24 09:30 20 97 BiPAP 10/21/24 09:15 BiPAP 10/21/24 07:20 65 15 92 Nasal Cannula 10/21/24 07:00 36.6 C 66 22 113/61 92 Room Air 10/21/24 06:00 67 10/21/24 06:00 76 10/21/24 06:00 76 10/21/24 03:54 36.4 C L 71 20 124/72 96 BiPAP 10/21/24 02:46 64 20 94 O2 Flow Rate FiO2 10/21/24 13:11 4 10/21/24 10:54 30 10/21/24 09:30 30 10/21/24 09:15 30 10/21/24 07:20 2 10/21/24 07:00 0 10/21/24 06:00 10/21/24 06:00 10/21/24 06:00 10/21/24 03:54 10/21/24 02:46 30 Laboratory Results -personally reviewed, WBC elevated in setting of steroids, Medications Administered Albuterol (Albut/Ipratrop 3mg/0.5mg Neb 3 Ml Vial) 3 ml INH Q6R YUN Stop: 11/18/24 19:15 Last Admin: 10/21/24 13:09 Dose: 3 ml Documented By: [id number] Admin: 10/21/24 07:18 Dose: Not Given Documented By: [id number] Admin: 10/21/24 00:50 Dose: 3 ml Documented By: Admin: 10/20/24 20:33 Dose: Not Given Documented By: Admin: 10/20/24 13:23 Dose: 3 ml Documented By: Admin: 10/20/24 07:05 Dose: 3 ml Documented By: Admin: 10/20/24 01:54 Dose: 3 ml Documented By: Admin: 10/19/24 20:07 Dose: 3 ml Documented By: MATT Apixaban (Apixaban 5 Mg Tablet) 5 mg PO BID YUN Stop: 11/18/24 20:59 Last Admin: 10/21/24 08:26 Dose: 5 mg Documented By: Admin: 10/20/24 20:12 Dose: 5 mg Documented By: Admin: 10/20/24 07:45 Dose: 5 mg Documented By: Admin: 10/19/24 21:56 Dose: 5 mg Documented By: EUGENE Aspirin (Aspirin 81 Mg Ectab) 81 mg PO DAILY YUN Stop: 11/19/24 08:59 Last Admin: 10/21/24 08:25 Dose: 81 mg Documented By: Admin: 10/20/24 07:48 Dose: 81 mg Documented By: OSMIN Budesonide (Budesonide 0.5 Mg/2 Ml Vial (Pulmicort)) 0.5 mg NEB BIDR YUN Stop: 11/19/24 18:59 Last Admin: 10/21/24 07:18 Dose: 0.5 mg Documented By: [id number] Admin: 10/20/24 20:33 Dose: 0.5 mg Documented By: LUANA Buspirone HCl (Buspirone 5 Mg Tab) 5 mg PO TID YUN Stop: 11/20/24 13:59 Last Admin: 10/21/24 14:15 Dose: 5 mg Documented By: OSMIN Cyanocobalamin (Cyanocobalamin (B-12) 500 Mcg Tablet) 1,000 mcg PO DAILY YUN Stop: 11/19/24 08:59 Last Admin: 10/21/24 08:25 Dose: 1,000 mcg Documented By: Admin: 10/20/24 07:47 Dose: 1,000 mcg Documented By: OSMIN Formoterol Fumarate (Formoterol 20 Mcg/2 Ml Vial) 20 mcg NEB BIDR YUN Stop: 11/19/24 18:59 Last Admin: 10/21/24 07:18 Dose: 20 mcg Documented By: [id number] Admin: 10/20/24 20:33 Dose: 20 mcg Documented By: LUANA Guaifenesin (Guaifenesin 600 Mg Tabcr) 1,200 mg PO BID YUN Stop: 11/18/24 20:59 Last Admin: 10/21/24 08:25 Dose: 1,200 mg Documented By: Admin: 10/20/24 20:12 Dose: 1,200 mg Documented By: Admin: 10/20/24 08:48 Dose: 1,200 mg Documented By: Admin: 10/19/24 21:56 Dose: 1,200 mg Documented By: EUGENE Methylprednisolone 40 mg/ (Syringe) 0.64 mls @ 1.5 mls/min IV BID YUN Stop: 11/19/24 05:59 Last Admin: 10/21/24 08:24 Dose: 1.5 mls/min Documented By: Admin: 10/20/24 20:12 Dose: 1.5 mls/min Documented By: Admin: 10/20/24 07:48 Dose: 1.5 mls/min Documented By: Admin: 10/20/24 05:59 Dose: 1.5 mls/min Documented By: EUGENE Lorazepam (Lorazepam 0.5 Mg Tab) 0.5 mg PO Q12 PRN PRN Reason: Anxiety Stop: 11/20/24 09:28 Last Admin: 10/21/24 09:38 Dose: 0.5 mg Documented By: OSMIN Magnesium Chloride (Magnesium Chloride W/Calcium 64mg Delayed Rel Tab) 64 mg PO BID YUN Stop: 11/18/24 20:59 Last Admin: 10/21/24 08:25 Dose: 64 mg Documented By: Admin: 10/20/24 20:12 Dose: 64 mg Documented By: Admin: 10/20/24 07:45 Dose: 64 mg Documented By: Admin: 10/19/24 21:56 Dose: 64 mg Documented By: EUGENE Metoprolol Tartrate (Metoprolol Tartrate 25 Mg Tab) 12.5 mg PO BID YUN Stop: 11/18/24 20:59 Last Admin: 10/21/24 08:25 Dose: 12.5 mg Documented By: Admin: 10/20/24 20:13 Dose: 12.5 mg Documented By: Admin: 10/20/24 07:45 Dose: 12.5 mg Documented By: Admin: 10/19/24 21:56 Dose: 12.5 mg Documented By: EUGENE Miscellaneous (Remove Nicoderm Patch) 1 each N/A DAILY@0859 [facility] Stop: 11/19/24 08:58 Last Admin: 10/21/24 08:26 Dose: 1 each Documented By: Admin: 10/20/24 08:48 Dose: 1 each Documented By: OSMIN Nicotine (Nicotine 7 Mg/24 Hr Tdsy) 1 patch TD QAM YUN Stop: 11/18/24 19:29 Last Admin: 10/21/24 08:26 Dose: 1 patch Documented By: Admin: 10/20/24 07:48 Dose: 1 patch Documented By: Admin: 10/19/24 21:57 Dose: Not Given Documented By: EUGENE Pantoprazole Sodium (Pantoprazole 40 Mg Tab) 40 mg PO BID YUN Stop: 11/18/24 20:59 Last Admin: 10/21/24 08:26 Dose: 40 mg Documented By: Admin: 10/20/24 20:12 Dose: 40 mg Documented By: Admin: 10/20/24 07:48 Dose: 40 mg Documented By: Admin: 10/19/24 21:57 Dose: 40 mg Documented By: EUGENE Pregabalin (Pregabalin 100 Mg Cap) 100 mg PO BID UYN Stop: 11/18/24 20:59 Last Admin: 10/21/24 08:28 Dose: 100 mg Documented By: Admin: 10/20/24 20:12 Dose: 100 mg Documented By: Admin: 10/20/24 08:59 Dose: 100 mg Documented By: Admin: 10/19/24 21:56 Dose: 100 mg Documented By: EUGENE Tamsulosin HCl (Tamsulosin Hcl 0.4 Mg Cap) 0.4 mg PO DAILY YUN Stop: 11/19/24 08:59 Last Admin: 10/21/24 08:26 Dose: 0.4 mg Documented By: Admin: 10/20/24 07:48 Dose: 0.4 mg Documented By: OSMIN
[2024-10-22 05:48] LABS: Hematocrit (blood only) 37.8 % (42.0-52.0); Hemoglobin 12.9 g/dl (14.0-18.0); Mean Corpuscular Hemoglobin 31.9 pg (25.0-34.0); Mean Corpuscular Volume 93.6 fL (80.0-100.0); Platelet Count 246 K/uL (130-400); RDW Standard Deviation 51.8 fL (36.4-46.3); Red Blood Count 4.04 M/uL (4.70-6.10); White Blood Count 11.92 K/ul (4.8-10.8)
[2024-10-22 06:05] LABS: Alanine Aminotransferase 42.0 U/L (7-52); Albumin Globulin Ratio 1.0 (0.9-2); Alkaline Phosphatase 81.0 U/L (34-104); Anion Gap 3.0 (3-11); Bilirubin,Total 0.2 mg/dl (0.2-1.0); Blood Urea Nitrogen 27.0 mg/dl (6-23); Calcium 8.7 mg/dl (8.6-10.3); Carbon Dioxide 28.0 mmol/L (21-32); Chloride 107.0 mmol/L (98-107); Creatinine Clr Calc Pharmacy 75.5 ml/min; Globulin 3.1 gm/dl (2.5-4.0); Glucose 140.0 mg/dl (70-99(Fasting)); Potassium 4.9 mmol/L (3.5-5.1); Sodium 138.0 mmol/L (136-145); Total Protein 6.1 gm/dl (6.0-8.3)
[2024-10-22] MEDS: predniSONE 20 MG TAB PO SCH (08:44)
[2024-10-22] MEDS ORDERED: ACETAMINOPHEN W/CODEINE #3 1 TAB PO PRN (11:37)
--- NOTE | 2024-10-22 13:51 | Hospitalist Progress Note ---
Date of Service October 22, 2024 Assessment & Plan (1) Acute exacerbation of chronic obstructive pulmonary disease (COPD): Plan: Patient is a 68 year old M with a past medical history of dyslipidemia, prediabetes, COPD with emphysema, current tobacco user, pulmonary nodules, obstructive sleep apnea on oxygen nightly with CPAP, chronic heart failure with preserved ejection fraction, GERD, history of septic arthritis, chronic pain syndrome, history of PE, depression presenting with cough, chest tightness, respiratory distress x 1 week. #Acute exacerbation of COPD 2/2 Rhinovirus URI #Combined pulmonary fibrosis and emphysema * Chest Xray showing Stable mild stranding opacity at the left lung base. No new consolidation or pleural effusion seen. No pneumo * Continue CPAP prn * goal oxygen sat 88% and above * start buspar 5mg tid for anxiety * restart home ativan 0.5mg q12hr prn * pulmonary consult, appreciate recs * continue Duonebs sched Q6H * stop methylpred, switch to PO prednisone and will do taper at discharge * IS, Flutter valve QID for pulmonary toileting #Chronic diastolic heart failure #Hypertension * patient at baseline weight * Echo from 01/2024 with EF 55-60%, grade 1 diastolic dysfunction, RV normal in size and function * Continue home metopolol #Current tobacco user * Current smoker 1/4 PPD daily * Nicotine path ordered * Smoking cessation by discharge needed #H/o Pulm Embolism #Hyperlipidemia * Found on CT chest 12/08/23; has been on Eliquis since * continue home statin therapy #Hypomagnesemia * replenish I spent a total of 45 minutes in direct patient care, including [id number] time with the patient and/or family, reviewing medical records, ordering and reviewing diagnostic tests, and coordinating care with other healthcare providers. This time includes: history taking, physical examination, medical decision making, counseling, ECG interpretation, imaging interpretation, lab interpretation, orders, and education, excluding time spent in the performance of separately billed services. (2) Combined pulmonary fibrosis and emphysema (CPFE): (3) Chronic diastolic heart failure: (4) Hypomagnesemia: Admission and Anticipated Discharge Date Admission Date: October 19, 2024 Subjective Patient seen and examined at bedside. Patient doing much better today. Was able to walk well with PT/OT. States he is breathing better today. Feels a bit less anxious today. Review of Systems Review of Systems: CONSTITUTIONAL: Patient denies fevers, chills, sweats and weight changes. EYES: Patient denies any visual symptoms. EARS, NOSE, AND THROAT: No difficulties with hearing. No symptoms of rhinitis or sore throat. CARDIOVASCULAR: Patient denies chest pains, palpitations, orthopnea and paroxysmal nocturnal dyspnea. RESPIRATORY: cough GI: No nausea, vomiting, diarrhea, constipation, abdominal pain, hematochezia or melena. : No urinary hesitancy or dribbling. No nocturia or urinary frequency. No abnormal urethral discharge. MUSCULOSKELETAL: No myalgias or arthralgias. NEUROLOGIC: No chronic headaches, no seizures. Patient denies numbness, tingling or weakness. PSYCHIATRIC: anxious ENDOCRINE: No excessive urination or excessive thirst. DERMATOLOGIC: Patient denies any rashes or skin changes. Physical Exam Physical Exam: Gen: A&O 3 NAD HEENT: NCAT, EOMI, not icteric. External ears normal. No rhinorrhea. Moist mucous membranes. Neck: Supple, full range of motion, no observable masses, No meningeal sign. Lungs: diffuse wheezing throughout lung fuller, improved from prior CV: RRR, no edema. Abdomen: Soft, nondistended, No rebound tenderness. MSK: No joint swelling, no redness. Skin: No rashes, petechiae, lesions. Normal color per patient. Neuro: Normal Gait, Grossly intact. Psych: Appropriate for situation. Appears less anxious today Results & Data Results & Data Vital Signs (Past 12 Hours) Vital Signs Temp Pulse Pulse Resp BP BP Pulse Ox 10/22/24 12:57 63 17 94 10/22/24 11:59 36.4 C L 66 18 109/62 93 10/22/24 11:55 10/22/24 08:01 36.6 C 72 22 100/56 L 94 10/22/24 08:00 61 10/22/24 08:00 10/22/24 07:35 70 18 99 10/22/24 05:36 78 10/22/24 03:50 36.4 C L 67 18 113/63 96 10/22/24 02:44 67 19 96 Pulse Ox O2 Del Method O2 Flow Rate O2 Flow Rate FiO2 10/22/24 12:57 Room Air 10/22/24 11:59 Room Air 10/22/24 11:55 91 0 10/22/24 08:01 Nasal Cannula 3 10/22/24 08:00 10/22/24 08:00 Room Air, Nasal Cannula 3 10/22/24 07:35 Nasal Cannula 3 10/22/24 05:36 10/22/24 03:50 CPAP 10/22/24 02:44 30 Laboratory Results -personally reviewed, leukocytosis in setting of steroid use, creatinine at baseline Medications Administered Albuterol (Albut/Ipratrop 3mg/0.5mg Neb 3 Ml Vial) 3 ml INH Q6R YUN Stop: 11/18/24 19:15 Last Admin: 10/22/24 12:56 Dose: 3 ml Documented By: Admin: 10/22/24 07:35 Dose: Not Given Documented By: Admin: 10/22/24 00:04 Dose: 3 ml Documented By: Admin: 10/21/24 20:46 Dose: Not Given Documented By: Admin: 10/21/24 13:09 Dose: 3 ml Documented By: [id number] Admin: 10/21/24 07:18 Dose: Not Given Documented By: [id number] Admin: 10/21/24 00:50 Dose: 3 ml Documented By: Admin: 10/20/24 20:33 Dose: Not Given Documented By: Admin: 10/20/24 13:23 Dose: 3 ml Documented By: Admin: 10/20/24 07:05 Dose: 3 ml Documented By: Admin: 10/20/24 01:54 Dose: 3 ml Documented By: Admin: 10/19/24 20:07 Dose: 3 ml Documented By: MATT Apixaban (Apixaban 5 Mg Tablet) 5 mg PO BID YUN Stop: 11/18/24 20:59 Last Admin: 10/22/24 08:24 Dose: 5 mg Documented By: Admin: 10/21/24 20:16 Dose: 5 mg Documented By: Admin: 10/21/24 08:26 Dose: 5 mg Documented By: Admin: 10/20/24 20:12 Dose: 5 mg Documented By: Admin: 10/20/24 07:45 Dose: 5 mg Documented By: Admin: 10/19/24 21:56 Dose: 5 mg Documented By: EUGENE Aspirin (Aspirin 81 Mg Ectab) 81 mg PO DAILY YUN Stop: 11/19/24 08:59 Last Admin: 10/22/24 08:24 Dose: 81 mg Documented By: Admin: 10/21/24 08:25 Dose: 81 mg Documented By: Admin: 10/20/24 07:48 Dose: 81 mg Documented By: OSMIN Budesonide (Budesonide 0.5 Mg/2 Ml Vial (Pulmicort)) 0.5 mg NEB BIDR YUN Stop: 11/19/24 18:59 Last Admin: 10/22/24 07:34 Dose: 0.5 mg Documented By: Admin: 10/21/24 20:46 Dose: 0.5 mg Documented By: Admin: 10/21/24 07:18 Dose: 0.5 mg Documented By: [id number] Admin: 10/20/24 20:33 Dose: 0.5 mg Documented By: LUANA Buspirone HCl (Buspirone 5 Mg Tab) 5 mg PO TID YUN Stop: 11/20/24 13:59 Last Admin: 10/22/24 13:42 Dose: 5 mg Documented By: Admin: 10/22/24 08:23 Dose: 5 mg Documented By: Admin: 10/21/24 20:16 Dose: 5 mg Documented By: Admin: 10/21/24 14:15 Dose: 5 mg Documented By: OSMIN Cyanocobalamin (Cyanocobalamin (B-12) 500 Mcg Tablet) 1,000 mcg PO DAILY YUN Stop: 11/19/24 08:59 Last Admin: 10/22/24 08:24 Dose: 1,000 mcg Documented By: Admin: 10/21/24 08:25 Dose: 1,000 mcg Documented By: Admin: 10/20/24 07:47 Dose: 1,000 mcg Documented By: OSMIN Formoterol Fumarate (Formoterol 20 Mcg/2 Ml Vial) 20 mcg NEB BIDR YUN Stop: 11/19/24 18:59 Last Admin: 10/22/24 07:34 Dose: 20 mcg Documented By: Admin: 10/21/24 20:46 Dose: 20 mcg Documented By: Admin: 10/21/24 07:18 Dose: 20 mcg Documented By: [id number] Admin: 10/20/24 20:33 Dose: 20 mcg Documented By: LUANA Guaifenesin/Codeine Phosphate (Guaifenesin/Codeine 100mg/10mg 5ml Udc) 5 ml PO Q6H PRN PRN Reason: Cough Stop: 11/21/24 13:28 Last Admin: 10/22/24 13:42 Dose: 5 ml Documented By: CARLOS Lorazepam (Lorazepam 0.5 Mg Tab) 0.5 mg PO Q12 PRN PRN Reason: Anxiety Stop: 11/20/24 09:28 Last Admin: 10/21/24 22:14 Dose: 0.5 mg Documented By: Admin: 10/21/24 09:38 Dose: 0.5 mg Documented By: OSMIN Magnesium Chloride (Magnesium Chloride W/Calcium 64mg Delayed Rel Tab) 64 mg PO BID [facility] Stop: 11/18/24 20:59 Last Admin: 10/22/24 08:23 Dose: 64 mg Documented By: Admin: 10/21/24 20:16 Dose: 64 mg Documented By: Admin: 10/21/24 08:25 Dose: 64 mg Documented By: Admin: 10/20/24 20:12 Dose: 64 mg Documented By: Admin: 10/20/24 07:45 Dose: 64 mg Documented By: Admin: 10/19/24 21:56 Dose: 64 mg Documented By: EUGENE Metoprolol Tartrate (Metoprolol Tartrate 25 Mg Tab) 12.5 mg PO BID [facility] Stop: 11/18/24 20:59 Last Admin: 10/22/24 08:23 Dose: 12.5 mg Documented By: Admin: 10/21/24 20:16 Dose: 12.5 mg Documented By: Admin: 10/21/24 08:25 Dose: 12.5 mg Documented By: Admin: 10/20/24 20:13 Dose: 12.5 mg Documented By: Admin: 10/20/24 07:45 Dose: 12.5 mg Documented By: Admin: 10/19/24 21:56 Dose: 12.5 mg Documented By: EUGENE Miscellaneous (Remove Nicoderm Patch) 1 each N/A DAILY@0859 [facility] Stop: 11/19/24 08:58 Last Admin: 10/22/24 08:24 Dose: 1 each Documented By: Admin: 10/21/24 08:26 Dose: 1 each Documented By: Admin: 10/20/24 08:48 Dose: 1 each Documented By: OSMIN Nicotine (Nicotine 7 Mg/24 Hr Tdsy) 1 patch TD QAM YUN Stop: 11/18/24 19:29 Last Admin: 10/22/24 08:22 Dose: 1 patch Documented By: Admin: 10/21/24 08:26 Dose: 1 patch Documented By: Admin: 10/20/24 07:48 Dose: 1 patch Documented By: Admin: 10/19/24 21:57 Dose: Not Given Documented By: EUGENE Pantoprazole Sodium (Pantoprazole 40 Mg Tab) 40 mg PO BID YUN Stop: 11/18/24 20:59 Last Admin: 10/22/24 08:24 Dose: 40 mg Documented By: Admin: 10/21/24 20:16 Dose: 40 mg Documented By: Admin: 10/21/24 08:26 Dose: 40 mg Documented By: Admin: 10/20/24 20:12 Dose: 40 mg Documented By: Admin: 10/20/24 07:48 Dose: 40 mg Documented By: Admin: 10/19/24 21:57 Dose: 40 mg Documented By: EUGENE Prednisone (Prednisone 20 Mg Tab) 40 mg PO DAILY YUN Stop: 11/21/24 08:59 Last Admin: 10/22/24 08:44 Dose: 40 mg Documented By: CARLOS Pregabalin (Pregabalin 100 Mg Cap) 100 mg PO BID YUN Stop: 11/18/24 20:59 Last Admin: 10/22/24 08:22 Dose: 100 mg Documented By: Admin: 10/21/24 20:16 Dose: 100 mg Documented By: Admin: 10/21/24 08:28 Dose: 100 mg Documented By: Admin: 10/20/24 20:12 Dose: 100 mg Documented By: Admin: 10/20/24 08:59 Dose: 100 mg Documented By: Admin: 10/19/24 21:56 Dose: 100 mg Documented By: EUGENE Tamsulosin HCl (Tamsulosin Hcl 0.4 Mg Cap) 0.4 mg PO DAILY YUN Stop: 11/19/24 08:59 Last Admin: 10/22/24 08:24 Dose: 0.4 mg Documented By: Admin: 10/21/24 08:26 Dose: 0.4 mg Documented By: Admin: 10/20/24 07:48 Dose: 0.4 mg Documented By: OSMIN
[2024-10-23 06:01] LABS: Hematocrit (blood only) 38.3 % (42.0-52.0); Hemoglobin 13.2 g/dl (14.0-18.0); Mean Corpuscular Hemoglobin 31.7 pg (25.0-34.0); Mean Corpuscular Volume 91.8 fL (80.0-100.0); Platelet Count 254 K/uL (130-400); RDW Standard Deviation 49.6 fL (36.4-46.3); Red Blood Count 4.17 M/uL (4.70-6.10); White Blood Count 11.47 K/ul (4.8-10.8)
[2024-10-23 06:18] LABS: Alanine Aminotransferase 50.0 U/L (7-52); Albumin Globulin Ratio 1.2 (0.9-2); Alkaline Phosphatase 68.0 U/L (34-104); Anion Gap 5.0 (3-11); Bilirubin,Total 0.3 mg/dl (0.2-1.0); Blood Urea Nitrogen 27.0 mg/dl (6-23); Calcium 8.7 mg/dl (8.6-10.3); Carbon Dioxide 28.0 mmol/L (21-32); Chloride 106.0 mmol/L (98-107); Creatinine Clr Calc Pharmacy 87.1 ml/min; Globulin 2.7 gm/dl (2.5-4.0); Glucose 98.0 mg/dl (70-99(Fasting)); Potassium 4.6 mmol/L (3.5-5.1); Sodium 139.0 mmol/L (136-145); Total Protein 5.9 gm/dl (6.0-8.3)
[2024-10-23 11:23] VITALS: TEMP 97.7; O2SAT 91
[2024-10-23 11:53] VITALS: BP 113/63
[2024-10-23 13:25] VITALS: PULSE 67; RESP 18
--- NOTE | 2024-10-23 14:25 | Discharge Summary ---
Discharge Summary Date of Service October 23, 2024 Principal Dx & Hospital Course #1 = Principal Diagnosis (1) Acute exacerbation of chronic obstructive pulmonary disease (COPD): Patient is a 68 year old M with a past medical history of dyslipidemia, pre diabetes, COPD with emphysema, current tobacco user, pulmonary nodules, obstructive sleep apnea on oxygen nightly with CPAP, chronic heart failure with preserved ejection fraction, GERD, history of septic arthritis, chronic pain syndrome, history of PE, depression presenting with cough, chest tightness, respiratory distress x 1 week. #Acute exacerbation of COPD 2/2 Rhinovirus URI #Combined pulmonary fibrosis and emphysema * Chest Xray showing Stable mild stranding opacity at the left lung base. No new consolidation or pleural effusion seen. No pneumo * Continue CPAP prn * goal oxygen sat 88% and above * start buspar 5mg tid for anxiety * restart home ativan 0.5mg q12hr prn * pulmonary consult, appreciate recs * continue Duonebs sched Q6H * stop methylpred, switch to PO prednisone and will do taper at discharge * IS, Flutter valve QID for pulmonary toileting #Chronic diastolic heart failure #Hypertension * patient at baseline weight * Echo from 01/2024 with EF 55-60%, grade 1 diastolic dysfunction, RV normal in size and function * Continue home metopolol #Current tobacco user * Current smoker 1/4 PPD daily * Nicotine path ordered * Smoking cessation by discharge needed #H/o Pulm Embolism #Hyperlipidemia * Found on CT chest 12/08/23; has been on Eliquis since * continue home statin therapy #Hypomagnesemia * replenish I spent a total of 45 minutes in direct patient care, including [id number] time with the patient and/or family, reviewing medical records, ordering and reviewing diagnostic tests, and coordinating care with other healthcare providers. This time includes: history taking, physical examination, medical decision making, counseling, ECG interpretation, imaging interpretation, lab interpretation, orders, and education, excluding time spent in the performance of separately billed services. (2) Combined pulmonary fibrosis and emphysema (CPFE): (3) Chronic diastolic heart failure: (4) Hypomagnesemia: Notes For Next Care Provider 68 year old M with a past medical history of dyslipidemia, prediabetes, COPD with emphysema, current tobacco user, pulmonary nodules, obstructive sleep apnea on oxygen nightly with CPAP, chronic heart failure with preserved ejection fraction, GERD, history of septic arthritis, chronic pain syndrome, history of PE, depression presenting with cough, chest tightness, respiratory distress x 1 week. Admitted to medicine for COPD exaccerbation. Found to have rhinovirus. Required Bipap for work of breathing support. Pulmonary consulted for medication optimization. Improved slowly with steroids. PT/OT consulted, recommended homegoing. 2 step performed, requires oxygen with exertion. Oxygen for home ordered, has oxygen at home at time of discharge. On 10/23/2024 patient medically stable for discharge home. To do: [ ] f/u with pulmonology [ ] encourage tobacco cessation Medication Changes From Visit -prednisone taper, cough syrup Admission HPI Per Admitting Provider Patient is a 68 year old M with a past medical history of dyslipidemia, prediabetes, COPD with emphysema, current tobacco user, pulmonary nodules, obstructive sleep apnea on oxygen nightly with CPAP, chronic heart failure with preserved ejection fraction, GERD, history of septic arthritis, chronic pain syndrome, history of PE, depression presenting with cough, chest tightness, respiratory distress x 1 week. Symptoms began 1 week ago with a cough that p rogressively worsened to shortness of breath with chest tightness, discolored sputum noted at home. Required 2 LPM oxygen at home, but typically does not need supplemental oxygen nightly. Albuterol nebs use 4x/day with minimal improvement. Follows Dr. Irwin with Pulmonary. Also reporting to have a headache, mostly behind right eye without visual changes. Endorses left chest pain, worse with inspiration, that travelled to left shoulder last night. Denies fever, chills, weight loss, weakness, cognitive changes, vision/hearing changes, urinary concerns, N/V/D, joint swelling/pain, ambulation difficulty, skin rashes, lesions, bleeding, bruising. In the emergency department, patient was tachypneic, labored breathing, and with rhonchi on exam. Hemodynamically stable with no signs of sepsis. Chest Xray showed Stable mild stranding opacity at the left lung base. No new consolidation or pleural effusion seen. No pneumo. BioFire + Rhino. VBG appeared ok with pH 7.43, CO2 42, O2 93, CO3 28, Base 3.2. Methypred and Duoneb was initially given with some clinical improvement, but then required Bipap support. Additional steroids and duoneb treatment was provided and the patient was unable to be weaned from Bipap support with settings 9/5, 40% O2. History obtained primarily from the patient and via hospitalization record. Discharge Exam Gen: A&O 3 NAD HEENT: NCAT, EOMI, not icteric. External ears normal. No rhinorrhea. Moist mucous membranes. Neck: Supple, full range of motion, no observable masses, No meningeal sign. Lungs: diffuse wheezing throughout lung fuller, improved from prior CV: RRR, no edema. Abdomen: Soft, nondistended, No rebound tenderness. MSK: No joint swelling, no redness. Skin: No rashes, petechiae, lesions. Normal color per patient. Neuro: Normal Gait, Grossly intact. Psych: Appropriate for situation. Appears less anxious today Updated Medication List Medication Instructions Recorded Confirmed Type apixaban 5 mg tablet (Eliquis) 5 mg PO BID 02/04/24 10/19/24 History aspirin 81 mg tablet,delayed 81 mg PO DAILY 02/04/24 10/19/24 History release cyanocobalamin (vitamin B-12) 1,000 mcg PO DAILY 02/04/24 10/19/24 History 1,000 mcg tablet furosemide 40 mg tablet 40 mg PO DAILY PRN FLUID 02/04/24 10/19/24 History RETENTION/WT GAIN lorazepam 0.5 mg tablet 0.5 mg PO Q6H PRN Agitation 02/04/24 10/19/24 History magnesium chloride 64 mg 0 mg PO BID 02/04/24 10/19/24 History (magnesium chloride) tablet,delayed release metoprolol tartrate 25 mg tablet 12.5 mg PO BID 02/04/24 10/19/24 History pantoprazole 40 mg tablet,delayed 40 mg PO BID 02/04/24 10/19/24 History release pregabalin 100 mg capsule 100 mg PO BID 02/04/24 10/19/24 History albuterol sulfate 2.5 mg/3 mL 2.5 mg inhalation DIRECTED PRN 05/15/24 10/19/24 History (0.083 %) solution for nebulization Shortness Of Breath Or Wheezing baclofen 5 mg tablet 0 mg PO TID PRN MUSCLE SPASMS 05/15/24 10/19/24 History clobetasol 0.05 % topical ointment 1 applic topical BID PRN RASH ON 05/15/24 10/19/24 History LEGS loperamide 2 mg tablet (Imodium 2 mg PO TID PRN Diarrhea 05/15/24 10/19/24 History A-D) meclizine 12.5 mg tablet 12.5 mg PO TID PRN 05/15/24 10/19/24 History DIZZINESS/VERTIGO ondansetron HCl 8 mg tablet 8 mg PO Q8H PRN NAUSEA/VOMITING 05/15/24 10/19/24 History oxycodone 10 mg tablet 10 mg PO Q6H PRN Pain 05/15/24 10/19/24 History CPAP Machine #1 ea 07/06/24 08/29/24 Rx CPAP Supplies #1 ea 07/06/24 08/29/24 Rx albuterol sulfate 90 mcg/actuation 2 puff inhalation Q4H PRN 09/04/24 10/19/24 Rx aerosol inhaler Shortness Of Breath Or Wheezing #8.5 grams montelukast 10 mg tablet 10 mg PO DAILY #90 tabs 09/04/24 10/19/24 Rx albuterol sulfate 90 mcg/actuation 1 puff inhalation UD PRN sob 10/19/24 10/19/24 History aerosol inhaler dupilumab 300 mg/2 mL subcutaneous 0 mg subcut .[id number] 10/19/24 10/19/24 History pen injector (Dupixent) etanercept 50 mg/mL (1 mL) 50 mg subcut UD 10/19/24 10/19/24 History subcutaneous pen injector (Enbrel SureClick) fluticasone fur. 200 mcg-umeclid 0 inh inhalation DAILY 10/19/24 10/19/24 History 62.5 mcg-vilant 25 mcg inhalat.powder (Trelegy Ellipta) tamsulosin 0.4 mg capsule 0.4 mg PO DAILY 10/19/24 10/19/24 History buspirone 5 mg tablet 5 mg PO TID #60 tabs 10/23/24 Rx codeine 10 mg-guaifenesin 100 mg/5 5 ml PO Q6H PRN cough 5 days #118 10/23/24 Rx mL oral liquid (Guaifenesin AC) mL nicotine 7 mg/24 hr daily 1 patch transdermal QAM 14 days 10/23/24 Rx transdermal patch #14 ea prednisone 10 mg tablets in a dose 10 mg PO DIRECTED #48 ea 10/23/24 Rx pack Hospital Stay Data Consultations 10/19/24 16:34 ED Decision to Admit Stat 10/19/24 19:16 Consult Pulmonology Routine Pending Results Patient Have Any Pending Studies at Discharge: No Discharge Instructions Given to Patient (Per Discharging Provider) Diagnosis: COPD exaccerbation, rhinovirus, pulmonary fibrosis, tobacco use Follow Ups: PCP, pulmonology 1. Please follow up with PCP, pulmonology. 2. Finish tapering course of prednisone. 3. Take medications as prescribed. 4. Wear 2 liters with exertion, continue oxygen at night, new prescription sent to [facility]. Total Time Total Time Spent Total Time Spent (In Minutes): I spent a total of 35 minutes in direct patient care, including [id number] time with the patient and/or family, reviewing medical records, ordering and reviewing diagnostic tests, and coordinating care with other healthcare providers. This time includes: history taking, physical examination, medical decision making, counseling, ECG interpretation, imaging interpretation, lab interpretation, orders, and education, excluding time spent in the performance of separately billed services.
== END 2024-10-23 14:13 | disposition home or self-care (01) | DRG 191 ==
LOC: ED 13:25 → EDINP 17:23 → SUATTDRO 17:23 → 4W 19:17